=== PATIENT | female | born 1990 | race African-American/Black ===

== ENCOUNTER 2021-05-20 17:24 | Outpatient (REF) | payer MEDICARE, MEDICAID, SELFPAY ==
[2021-05-20 21:07] LABS: FREE T4 0.89 ng/dL (0.76-1.46); TSH 2.62 uIU/mL (0.36-3.74)
[2021-05-21 22:14] LABS: T3, Total 263 ng/dL (97-169)
== END 2021-05-20 17:25 | disposition home or self-care (01) ==
LOC: LBN 17:24
PROVIDERS: Visit Provider Nurse Practitioner Family
DX: E03.9 Hypothyroidism, unspecified (principal)
CPT/HCPCS: 84439; 84443; 84480

== ENCOUNTER 2021-06-16 18:57 | Observation (INO) | payer MEDICARE, MEDICAID, SELFPAY ==
[2021-06-16] VITALS (40 sets, daily range): BP systolic 160–229; BP diastolic 62–166; PULSE 107–136; RESP 17–49; TEMP 36.6–37; O2SAT 88–100
--- NOTE | 2021-06-16 18:45 | RT.EKG_ITS ---
APPROVED REPORT Exam: Resting ECG Reason for Exam: tachycardia Patient Location: E HR:125 bpm ECG Measurements Heart Rate 125 AXIS MN 148 P 48 QRSd 86 QRS 38 QT 306 T 31 QTc 442 Conclusion Sinus tachycardia...rate> 99 Low voltage, precordial leads...precordial leads <1.0mV
--- NOTE | 2021-06-16 19:00 | DI.CT_ITS ---
Exam(s) CT HEAD WO EXAM: CT HEAD WO CLINICAL HISTORY: weakness, dizzy. TECHNIQUE: Imaging Protocol: Axial computed tomography images with coronal and sagittal reformatted images were created and reviewed COMPARISON: No exams were available for comparison FINDINGS: The examination is limited due to patient motion artifact. Ventricles and Extra axial spaces: Normal in size and morphology for the patient's age. Hemorrhage: None. Cerebral parenchyma: Normal. Midline shift: None. Brainstem/Cerebellum: Normal. Calvarium: Normal. Visualized Paranasal sinuses/Mastoids: Clear. Soft Tissues: There is a scar in the posterior right scalp. Non-specific mildly enlarged lymph nodes are seen in the left periauricular region. An infectious or inflammatory process cannot be excluded . Please correlate with physical exam. Note is made of bilateral proptosis. Please correlate with physical exam and clinical history. IMPRESSION: No acute intracranial process. RADIATION DOSE DELIVERED: 2,433.58mGy.cm Total DLP DATA REPOSITORY: All CT scans at this facility are submitted to the National Radiology Data Registry (NRDR) Dose Index Registry (DIR) with the [employer] ([employer]). RADIATION OPTIMIZATION: All CT scans at this facility use at least one of these dose optimization te chniques: automated exposure control; mA and/or kV adjustment per patient size (includes targeted exa ms where dose is matched to clinical indication); or iterative reconstruction.
--- NOTE | 2021-06-16 19:21 | ED.GENADUL_ITS ---
Discharge Plan Disposition Patient Disposition: [facility] INPATIENT Condition: Stable Discharge Details Clinical Impression: Altered mental status Primary Care Provider: Unknown,Unknown ED Provider: Bryon Romero Home Meds and New Rx's Prescriptions: No Action simvastatin 40 mg Tablet 40 mg PO BID RF: 0 prazosin [Minipress] 5 mg Capsule 5 mg PO DAILY RF: 0 quetiapine [Seroquel] 400 mg Tablet 400 mg PO BID RF: 0 gabapentin 600 mg Tablet Extended Release 24 Hr 600 mg PO BID RF: 0 levothyroxine 200 mcg Capsule 200 mcg PO DAILY RF: 0 Medical Decision Making 31-year-old female referred from local urgent care. She has been living in an area apartment and looking for work after moving from [place]. States she is on SSI and has received her government check. She reports feeling confused, weak today. She was cooking something on the stove and forgetful of what it was. She states this is happened in the past and stated to paramedics that she was told it was psychogenic. She states she has been taking thyroid supplements since the age of 14. Patient arrives to the ER slightly tachycardic but afebrile and interactive, with blood pressure 160/100. She is oriented and not delirious but does seem mildly sedated. Differential diagnosis is broad including drug use/misuse, mood disorder, dehydration, electrolyte abnormality, occult infection and given her history of hypothyroidism would consider thyrotoxicosis.. Patient IV established, screening laboratories obtained, given fluid bolus. Review of records shows laboratory tests from May 20 revealing elevated total T3 of 263. Today, TSH is normal at 3.27, I have asked for free T4 and T3 levels. Remainder of laboratories noted negative troponin, reassuring chemistries. CBC with white count 14, hematocrit 35, platelets 325. Urine drug screen pending. CT of the head: No acute intracranial findings. See formal report. Chest x-ray without acute disease. Patient remains somewhat somnolent, but arousable to voice. She has persistent mild tachycardia and hypertension. Case discussed with Dr. Doll. I will administer 5 mg of Lopressor and patient to be admitted. HPI General Mode of arrival: EMS . Date/Time Provider Initiated Documentation: 06/16/21 19:59 . Limitations to Documentation: no limitations . Information obtained by: patient and EMS . History of Present Illness 31 year old F presents to the emergency department with the chief complaint of Feeling confused today, described as moderate, and is localized to the head. Patient reports no radiation. Patient started experiencing this hour(s) and it has been intermittent. No relieving factors improve symptom(s), No exacerbating factors reported . Patient notes denies cough, headaches, shortness of breath, syncope and weakness. Patient did receive the following treatments prior to arrival, none Related Data Home Medications Medication Instructions Recorded Confirmed gabapentin 600 mg PO BID 06/16/21 06/16/21 levothyroxine 200 mcg PO DAILY 06/16/21 06/16/21 prazosin [Minipress] 5 mg PO DAILY 06/16/21 06/16/21 quetiapine [Seroquel] 400 mg PO BID 06/16/21 06/16/21 simvastatin 40 mg PO BID 06/16/21 06/16/21 Allergies Allergy/AdvReac Type Severity Reaction Status Date / Time No Known Allergies Allergy Unverified 06/16/21 19:09 General Stated Complaint: Dizzy/Sync ALEKSANDR: 2 Review of Systems Narrative: Denies fall or head injury. States this is happened previously and she was told it was psychogenic. She denies any illness. She has been living in her apartment. She recently moved from the [facility]. 7 systems reviewed and otherwise negative. PFSH All Active Problems (Updated 06/16/21 @ 21:51 by Michael Doll MD) Somnolence (Acute) Altered mental status (Acute) Mood disorder (Acute) Hypothyroid (Chronic) Medical History (Updated 06/16/21 @ 21:51 by Michael Doll MD) Sleep apnea Social History Smoking/Tobacco Use Status: Never Smoking risk assessment performed?: Yes Alcohol Intake: current Alcohol Intake frequency: a few times a month Drug use: Never Substance use type: does not use Do you feel safe at home: Yes Do you feel safe in your relationship?: Yes Exam Narrative Exam Narrative: GEN: awake, alert, oriented 3. Pleasant, well groomed, interactive. HEAD: Normocephalic, atraumatic ENT: Mucous membranes moist, oropharynx unremarkable, External ear exam unremarkable EYES: PERRL, EOMI, mild exophthalmos present NECK: Full ROM, no MARYAM, no menigismus CHEST/RESP: Nontender, clear to auscultation bilateral, no wheeze/rhonchi/rales CARDIOVASCULAR: RRR, no murmur, rub doug. 2+ Rad pulse bilateral ABDOMEN: Soft, nontender, no mass. +Bowel sounds EXT: Full ROM, no edema, no rash Neuro: Grossly normal neurologic exam, conversant, interactive. Psych: Speech fluent, thoughts congruent, affect normal Course Vital Signs Vital signs: Vital Signs Temperature 36.6 C 06/16/21 19:00 Pulse 125 H 06/16/21 19:00 Respiratory Rate 24 06/16/21 19:00 Blood Pressure 164/102 H 06/16/21 19:00 Pulse Oximetry 100 06/16/21 19:00 Temperature 36.6 C 06/16/21 19:00 Temperature Source Skin 06/16/21 19:00 Pulse 125 H 06/16/21 19:00 Respiratory Rate 24 06/16/21 19:00 Respiratory Effort 06/16/21 19:06 Blood Pressure 164/102 H 06/16/21 19:00 Blood Pressure Position Sitting 06/16/21 19:00 Pulse Oximetry 100 06/16/21 19:00 Oxygen Delivery Method Room Air 06/16/21 19:00 Oxygen Flow Rate 0 06/16/21 19:00 Pain Level 6 06/16/21 19:00 PAWSS Have you Been Recently Intoxicated or Drunk Within the Last 30 days?: No Have you Ever Experienced Previous Episodes of Alcohol Withdrawal?: No Have you ever Experienced Withdrawal Seizures?: No Have you ever Experienced Delirium Tremens(DT)s?: No Have you ever undergone Alcohol Rehabilitation Treatment (i.e, inpt ot outpatient treatment programs)?: No Have you ever Experienced Blackouts?: Yes Have you ever Combined Alcohol with other Downers within the last 90 days?: No Have you ever Combined Alcohol with any other Substance of Abuse during the last 90 days?: No Positive Blood Alcohol level on Presentation? [PCS.BAL]: No Evidence of Increased Autonomic Activity (i.e. HR>120, tremor, sweating, agitation, nausea)?: No Result: 1
[2021-06-16] MEDS: Normal Saline 1,000 ML 1000 ML IV (20:00)
[2021-06-16 20:08] LABS: Albumin 3.4 g/dL (3.4-5.0); Anion Gap 9.1 mmol/L (3-11); BUN 14 mg/dL (7-18); CO2 26.9 mmol/L (21.0-32.0); CREATININE 0.7 mg/dL (0.55-1.02); Calcium 9.5 mg/dL (8.5-10.1); Chloride 104 mmol/L (98-107); ETHANOL BLOOD 3.8 mg/dL (<10); Glucose 62 mg/dL (74-106); Magnesium 1.9 mg/dL (1.8-2.4); Potassium 4.2 mmol/L (3.5-5.1); Sodium 140 mmol/L (136-145)
[2021-06-16 20:24] LABS: Abs Immature Grans 0.11 10^3/uL (0.0-0.06); Absolute Basophil Count 0.04 10^3/uL (0.0-0.2); Absolute Eosinophil Count 0.03 10^3/uL (0.0-0.7); Absolute Lymphocyte Count 2.26 10^3/uL (1.2-3.4); Absolute Monocyte Count 1.16 10^3/uL (0.1-0.8); Absolute Neutrophil Count 10.42 10^3/uL (1.2-6.7); Basophils % 0.3; Eosinophils % 0.2; HCT 35.2 % (36.0-46.0); HGB 10.2 g/dL (11.2-15.7); Immature Grans % 0.8; Lymphocytes % 16.1; MCH 21.6 pg (27.0-33.0); MCV 74.4 fL (80-95); MPV 11.9 fL (8.0-11.0); Monocytes % 8.3; Neutrophils % 74.3; Nucleated RBC 0 %; Platelet Count 325 10^3/uL (130-400); RBC 4.73 10^6/uL (3.93-5.22); RDW 16.3 % (11.7-14.6); RDW-SD 43.1 fL; WBC 14.02 10^3/uL (4.4-10.8)
[2021-06-16 20:28] LABS: ALT 39 U/L (14-59); AST 32 U/L (15-37); Alkaline Phosphatase 96 U/L (46-116); Bilirubin, Total 0.1 mg/dL (0.2-1.0); TSH 3.27 uIU/mL (0.36-3.74); Total Protein 8.7 g/dL (6.4-8.2); Troponin I < 50 ng/L (<or=60)
--- NOTE | 2021-06-16 20:30 | DI.RAD_ITS ---
Exam(s) XR CHEST 2V PA LATERAL EXAM: XR CHEST 2V PA LATERAL CLINICAL HISTORY: weakness, MS change TECHNIQUE: 2D digital imaging was performed of the chest. Five images were obtained. AP and latera l views were obtained. COMPARISON: No exams were available for comparison FINDINGS: The examination is limited due to patient motion artifact. Exam is also limited by patient body habi tus. MEDIASTINUM: Normal. HEART: The heart appears enlarged. This may be due to portable technique and low lung volumes. Card iomegaly cannot be excluded. PULMONARY VASCULATURE: Normal. LUNGS: There are low lung volumes secondary to poor inspiration. No focal consolidation is seen. PLEURAL SPACE: No pleural effusion or pneumothorax. BONE:Within normal limits for the patient's age. OTHER FINDINGS:Normal. IMPRESSION: 1. Suboptimal examination due to patient body habitus, patient motion and poor inspiration. 2. Cardiomegaly versus artifact secondary to technique. DATA REPOSITORY: RADIATION DOSE DELIVERED:
[2021-06-16 20:44] LABS: Diff Comment PLT Morph Reviewed; Microcytosis 1+
--- NOTE | 2021-06-16 21:15 | DI.VRAD_ITS ---
PROCEDURE INFORMATION: Exam: CT Head Without Contrast Exam date and time: 06/16/2021 7:10 PM Age: 31 years old Clinical indication: Dizziness and other: Weakness; Patient HX: Weakness, dizzy TECHNIQUE: Imaging protocol: Computed tomography of the head without contrast. Radiation optimization: All CT scans at this facility use at least one of these dose optimization techniques: automated exposure control; mA and/or kV adjustment per patient size (includes targeted exams where dose is matched to clinical indication); or iterative reconstruction. COMPARISON: No relevant prior studies available. FINDINGS: Brain: Normal. No hemorrhage. Unremarkable white matter. No mass effect. Cerebral ventricles: No ventriculomegaly. Paranasal sinuses: Visualized sinuses are unremarkable. No fluid levels. Mastoid air cells: Visualized mastoid air cells are well aerated. Orbital cavity: Bilateral proptosis. No orbital mass is identified. The extraocular muscles appear appropriate in size and configuration. Bones/joints: Unremarkable. No acute fracture. Soft tissues: Skin thickening and subcutaneous fatty reticulation of the posterior right parietal scalp. Lymph nodes: Left retroauricular fatty reticulation and lymph node prominence measuring up to 1.1 cm. IMPRESSION: 1. No acute intracranial abnormality is appreciated. 2. Mild fatty reticulation and lymphadenopathy of the left retroauricular soft tissues, a nonspecific finding that may be related to infectious or inflammatory changes. Correlate with physical examination. 3. Mild skin thickening and subcutaneous fatty reticulation of the posterior right parietal scalp. This appears to represent a chronic scar. 4. Bilateral proptosis. The etiology is not clear from the current examination. Dictated and Authenticated by: Cristofer Puga MD. Ordering:RYAN Slater MD
--- NOTE | 2021-06-16 21:16 | DI.VRAD_ITS ---
PROCEDURE INFORMATION: Exam: XR Chest Exam date and time: 06/16/2021 8:41 PM Age: 31 years old Clinical indication: Other: AMS TECHNIQUE: Imaging protocol: XR of the chest. Views: 2 views. COMPARISON: No relevant prior studies available. FINDINGS: Limitations: The examination is limited secondary to patient motion, body habitus, and incomplete inspiratory excursion. Lungs: No gross airspace consolidation is appreciated. Pleural spaces: Unremarkable. No pleural effusion. No pneumothorax. Heart/Mediastinum: The central silhouette appears prominent, however this is likely artifactual secondary to low lung volumes and portable technique. An element of cardiomegaly is not excluded. Bones/joints: Unremarkable. IMPRESSION: Limited evaluation. There may be an element of cardiomegaly, versus artifact secondary to technique. Dictated and Authenticated by: Cristofer Puga MD. Ordering:RYAN Slater MD
[2021-06-16 21:20] LABS: BE 2 mmol/L (-2-3); HCO3 27 mmol/L (22-26); pCO2 43 mmHg (35-45); pO2 67 mmHg (80-105); sO2 93 % (95-98); tCO2 25 mmol/L (23-27)
[2021-06-16 21:24] LABS: Site Right Radial
[2021-06-16 21:36] LABS: *AMPHETAMINES SCREEN URINE Negative (Negative); *BARBITURATES SCREEN URINE Negative (Negative); *BENZODIAZEPINES SCREEN URINE Negative (Negative); Cannabinoids THC Negative (Negative); Cocaine Screen,Urine Negative (Negative); METHADONE URINE SCREEN Negative (Negative); OPIATES URINE SCREEN Negative (Negative)
[2021-06-16 21:37] LABS: Tricyclic Antidepressants Negative (Negative)
--- NOTE | 2021-06-16 21:39 | W.PM.HP.N ---
Date of service: 06/16/21 Time of Service: 21:39 Assessment and Plan Assessment and plan (1) Somnolence: Status: Acute Assessment and plan: No specific etiology apparent at this time, but overall tenor of case seems to suggest toxic/metabolic issue. I wonder about exogenous ingestion or perhaps toxic effect of her prescribed meds. The hyperdynamic state is noted. I cannot specifically ascribe this to any of her known meds, and with a normal TSH I cannot point to the Synthroid, unless by chance there were an acute overdose. Overall I would advise hold all meds, control BP with beta nandini and hold for observation. History of Present Illness History of Present Illness Chief Complaint: confusion Narrative: 31 female with unspecified psychiatric disorder, on Seroquel, Gabapentin and Prazosin, recently moved from [place], on SSI reportedly -- seen at Urgent Care today for confusion (it is reported that she has had this before, and been told it was psychogenic), noted to be tachycardic and somnolent and sent to ER. In ER findings of note for absence of fever, hypertension, tachycardia and patient being generally somnolent, but variably. Labs of note for white count 14, Hct 35 with microcytosis, normal electrolytes and renal function; TSH 3.2; negative head CT and CXR; EKG sinus tachycardia; negative UDS, ABG 7.43/40/67 (sat 97%). EtOH 3.8. I was asked to evaluate for admission. Patient gives limited history, but states she takes her meds properly and has not ingested any illicit substances. Review of Systems All systems reviewed & are unremarkable except as noted in HPI and below PFSH All Active Problems (Updated 06/16/21 @ 21:51 by Michael Doll MD) Somnolence (Acute) Altered mental status (Acute) Mood disorder (Acute) Hypothyroid (Chronic) Medical History Sleep apnea Social History Smoking/Tobacco Use Status: Never Smoking risk assessment performed?: Yes Alcohol Intake: current Alcohol Intake frequency: a few times a month Drug use: Never Substance use type: does not use Do you feel safe at home: Yes Do you feel safe in your relationship?: Yes Meds Allergies and Home Medications Allergies Allergy/AdvReac Type Severity Reaction Status Date / Time No Known Allergies Allergy Unverified 06/16/21 19:09 Home Medications Medication Instructions Recorded Confirmed Type gabapentin 600 mg PO BID 06/16/21 06/16/21 History levothyroxine 200 mcg PO DAILY 06/16/21 06/16/21 History prazosin [Minipress] 5 mg PO DAILY 06/16/21 06/16/21 History quetiapine [Seroquel] 400 mg PO BID 06/16/21 06/16/21 History simvastatin 40 mg PO BID 06/16/21 06/16/21 History Exam Narrative Exam Narrative: 218/85, 133,36.8, RR 20s-30s; 97% RA. HEENT atraumatic, globes appear prominent but no thyroid stare; neck supple, unable to palpate thyroiod; lungs clear; heart tachy/regular; abdomen obese, soft and NT; extremities w/o edema; neuro rather somnolent, unable to fully assess orientation, but intermittently answers questions appropriately; moves all 4s Results Labs Result diagrams: 06/16/21 19:50 06/16/21 19:50 Labs: Laboratory Results - last 24 hr 06/16/21 06/16/21 06/16/21 19:50 19:50 21:02 WBC 14.02 H RBC 4.73 Hgb 10.2 L Hct 35.2 L MCV 74.4 L MCH 21.6 L MCHC 29.0 L RDW 16.3 H Plt Count 325 MPV 11.9 H Immature Gran % 0.8 Neutrophils % 74.3 Lymphocytes % 16.1 Monocytes % 8.3 Eosinophils % 0.2 Basophils % 0.3 Nucleated RBC % 0 Absolute Neutrophils 10.42 H Absolute Lymphocytes 2.26 Absolute Monocytes 1.16 H Absolute Eosinophils 0.03 Absolute Basophils 0.04 RBC Morphology See Below Microcytosis 1+ ABG Sample Site Right Radial ABG pH 7.40 ABG pCO2 43 ABG pO2 67 L ABG HCO3 27 H ABG Total CO2 25 ABG O2 Saturation 93 L ABG Base Excess 2 Sodium 140 Potassium 4.2 Chloride 104 Carbon Dioxide 26.9 Anion Gap 9.1 BUN 14 Creatinine 0.7 Estimated GFR/1.73 m2 >= 60.00 Glucose 62 L Calcium 9.5 Magnesium 1.9 Total Bilirubin 0.1 L AST 32 ALT 39 Alkaline Phosphatase 96 Troponin I < 50 Total Protein 8.7 H Albumin 3.4 TSH 3.27 Urine Opiates Screen Urine Methadone Screen Ur Barbiturates Screen Ur Tricyclics Screen Ur Amphetamines Screen U Benzodiazepines Scrn Urine Cocaine Screen Ur THC Screen Ethyl Alcohol 3.8 06/16/21 21:10 WBC RBC Hgb Hct MCV MCH MCHC RDW Plt Count MPV Immature Gran % Neutrophils % Lymphocytes % Monocytes % Eosinophils % Basophils % Nucleated RBC % Absolute Neutrophils Absolute Lymphocytes Absolute Monocytes Absolute Eosinophils Absolute Basophils RBC Morphology Microcytosis ABG Sample Site ABG pH ABG pCO2 ABG pO2 ABG HCO3 ABG Total CO2 ABG O2 Saturation ABG Base Excess Sodium Potassium Chloride Carbon Dioxide Anion Gap BUN Creatinine Estimated GFR/1.73 m2 Glucose Calcium Magnesium Total Bilirubin AST ALT Alkaline Phosphatase Troponin I Total Protein Albumin TSH Urine Opiates Screen Negative Urine Methadone Screen Negative Ur Barbiturates Screen Negative Ur Tricyclics Screen Negative Ur Amphetamines Screen Negative U Benzodiazepines Scrn Negative Urine Cocaine Screen Negative Ur THC Screen Negative Ethyl Alcohol Last Vital Signs Temp 36.6 C 06/16/21 19:00 Pulse 133 H 06/16/21 21:17 Resp 39 H 06/16/21 21:17 BP 218/85 H 06/16/21 21:17 Pulse Ox 97 06/16/21 21:17 PAWSS Have you Been Recently Intoxicated or Drunk Within the Last 30 days?: No Have you Ever Experienced Previous Episodes of Alcohol Withdrawal?: No Have you ever Experienced Withdrawal Seizures?: No Have you ever Experienced Delirium Tremens(DT)s?: No Have you ever undergone Alcohol Rehabilitation Treatment (i.e, inpt ot outpatient treatment programs)?: No Have you ever Experienced Blackouts?: Yes Have you ever Combined Alcohol with other Downers within the last 90 days?: No Have you ever Combined Alcohol with any other Substance of Abuse during the last 90 days?: No Positive Blood Alcohol level on Presentation? [PCS.BAL]: No Evidence of Increased Autonomic Activity (i.e. HR>120, tremor, sweating, agitation, nausea)?: No Result: 1
[2021-06-16] MEDS: Normal Saline Flush 10 ML SYR IVP ×3 (21:41→23:33)
[2021-06-16] MEDS: Metoprolol 5 MG/5 ML VIAL IVP ×2 (21:41→22:10)
[2021-06-16 21:46] LABS: Bilirubin Negative (Negative); Blood Trace-intact (Negative); Clarity Clear (Clear); Glucose 250 mg/dL (Negative); Ketones Trace mg/dL (Negative); Leukocyte Esterase Negative (Negative); Nitrite Negative (Negative); Specific Gravity >= 1.030 (1.005-1.025); Urobilinogen 0.2 EU/dL (Up TO 0.2); pH 5.5 (5-8)
[2021-06-16 21:48] LABS: FREE T4 0.83 ng/dL (0.76-1.46)
[2021-06-16 22:00] LABS: T4 5.7 ug/mL (4.7-13.3)
[2021-06-16 22:08] LABS: Bacteria Negative HPF (Negative); Crystals Negative HPF (Negative); Epithelial Cells Few HPF (Negative); Mucus Moderate (Negative); RBC Negative HPF (0-2)
[2021-06-16 22:09] LABS: C & S Indicated? Yes
[2021-06-16 22:31] LABS: Source Nasopharynx
[2021-06-16 23:05] LABS: COVID-19 PCR Negative (Negative); Influenza A PCR Negative (Negative); Influenza B PCR Negative (Negative); RSV PCR Negative (Negative)
[2021-06-16] MEDS: Lactated Ringers 1,000 ML 150 ML IV (23:33)
[2021-06-17 02:13] VITALS: BP 171/101; PULSE 113; RESP 20; TEMP 36.6; O2SAT 95
[2021-06-17] MEDS: Metoprolol 25 MG TAB PO (02:21)
[2021-06-17 06:03] VITALS: BP 192/104; PULSE 107; RESP 25; TEMP 36.4; O2SAT 96
[2021-06-17 07:08] VITALS: BP 155/89; PULSE 106; RESP 22; TEMP 36.4; O2SAT 99
[2021-06-17 07:29] VITALS: PULSE 114
--- NOTE | 2021-06-17 09:05 | PDOC.CMIN ---
- If Service Date Differs Date of service: 06/17/21 Time of Service: 09:05 Care Management Initial Assess REASON FOR HOSPITALIZATION:: Somnolence PAST MEDICAL HISTORY/PAST SURGICAL HISTORY:: All Active Problems (Updated 06/16/21 @ 21:51 by Michael Doll MD). Somnolence (Acute). Altered mental status (Acute). Mood disorder (Acute). Hypothyroid (Chronic). Medical History . Sleep apnea PREVIOUS FUNCTIONAL STATUS/SOCIAL/FAMILY SUPPORTS:: Zenia lives in [facility]. ADVANCE DIRECTIVES:: None on file Has patient been provided with info about the portal/API?: Yes Did the patient sign up for the portal?: No CODE STATUS:: Full Code INSURANCE COVERAGE / FINANCIAL ISSUES:: Medicaid. Medicare CURRENT HOME/COMMUNITY SERVICES/EQUIPMENT:: . PRIMARY CARE PHYSICIAN:: . PATIENT/FAMILY EDUCATION NEEDS:: Review discharge instructions, limitations, medications and plan to follow up with community providers. ask me three. TRANSPORTATION:: via private vehicle with family
[2021-06-17] MEDS: Nystatin POWDER 15 GM JAR TP (09:09)
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
--- NOTE | 2021-06-17 11:56 | DSE_ITS ---
Date of service: 06/17/21 Time of Service: 11:56 DS: Diagnosis Discharge Diagnosis (1) Somnolence: Start date: 06/17/21 Start time: 11:56 Status: Resolved Asessment and Plan: Patient was somnolent. Takes prazosin, ambien and seroquel at night for bedtime. We talked about the effects of taking all these medications at once. She is agreeable to stop taking ambien at night as the seroquel and prazosin should be adequate enough to help her sleep. She is now awake and at baseline. She would like to go back to the hotel. She is being discharged. She denies any CP, SOA, or other complaints. Discussed with Dr. Nj Discharge Plan Disposition Patient Disposition: HOME Condition: Stable Discharge Details Reason For Visit: Somnolence Admit Date/Time: 06/16/21 21:56 Admit Provider: Michael Doll Attending Provider: Michael Doll Primary Care Provider: Unknown,Unknown Hospital Course Hospital Course: 31 y.o female with PMH of nightmares, DM, Hypothyroid, HLD, admitted to /S for weakness and confusion. She was somnolent on admission. She is on seroquel, gabapentin, and prazosin for unknown psychiatric disorder. Recently moved here from [place]. Today she is at her baseline. She admits that she takes seroquel, prazosin and Ambien to help her sleep. Which will cause somnolence. We discussed that these medication combinations are not safe and that prazosin and seroquel alone are sedating enough for sleep. She agreed to stop taking Ambien. She states she takes the prazosin for nightmares. She is back to baseline and would like to be discharged. She is also a diabetic that had a bs of 69 this am. She is now 110. She feels well. No complaints therefore she is being discharged back. She would benefit from [facility] service connections to manage her medications. Home Meds and New Rx's Prescriptions: Continued simvastatin 40 mg Tablet 40 mg PO BID RF: 0 prazosin [Minipress] 5 mg Capsule 5 mg PO DAILY RF: 0 quetiapine [Seroquel] 400 mg Tablet 400 mg PO BID RF: 0 gabapentin 600 mg Tablet Extended Release 24 Hr 600 mg PO BID RF: 0 levothyroxine 200 mcg Capsule 200 mcg PO DAILY RF: 0 Discharge Instructions Instructions: Hypoglycemia in a Person with Diabetes (DC) Additional Instructions: STOP TAKING AMBIEN AT NIGHT you should follow up with [facility] for community connections to help you with services and medications if you are not already connected. Activity:: Activity as Tolerated Equipment/Supplies:: No Equipment Needed Diet:: Carb Counting Discharge Orders Discharge Orders: Discharge Order (Routine); Ordered 06/17/21 Ordered By: Lia Saleh DS: Summary Time Spent with Patient providing and/or coordinating discharge services: Less than 30 minutes Status at Discharge Functional status at discharge: independent ambulation Overall status at discharge: patient is back to baseline Mental Status: mental status grossly normal Speech and Movement: speech and movement normal Mood: congruent mood Affect: normal affect Exam Const General: cooperative, comfortable and no acute distress Nutritional Appearance: obese Orientation: alert, awake and oriented x3 Eyes Eyelids: eyelids normal Pupils: PERRL EOM: EOM intact bilaterally Neck Neck: normal visual inspection and no JVD Lymphatic: no lymphadenopathy noted Resp Effort & Inspection: normal respiratory effort Auscultation: clear to auscultation bilaterally Cardio Jugular venous pressure: no JVD Rhythm: regular rhythm Heart Sounds: S1 normal GI Auscultation: normal bowel sounds Skin General skin exam: no rashes or lesions noted Neuro General: patient alert, patient awake and patient oriented x3 Cognition: normal cognition Speech: speech normal Gait: normal gait Extrem General: normal to inspection, full ROM and no clubbing, cyanosis or edema Psych Mental Status: mental status grossly normal Speech and Movement: speech and movement normal Mood: congruent mood Affect: normal affect DS: Data Vitals/I&O Vitals and I&O: Vital Signs Temperature 36.4 C L 06/17/21 07:08 Temperature Source Tympanic 06/17/21 07:08 Pulse 114 H 06/17/21 07:29 Pulse Rhythm Regular 06/17/21 08:20 Pulse 116 H 06/16/21 22:40 Respiratory Rate 22 06/17/21 07:08 Respiratory Effort Non-Labored 06/17/21 08:20 Respiratory Depth Normal 06/17/21 08:20 Respiratory Pattern Normal 06/17/21 08:20 Blood Pressure 155/89 H 06/17/21 07:08 Blood Pressure Mean 124 06/16/21 23:01 Blood Pressure Position Sitting 06/16/21 19:00 Pulse Oximetry 99 06/17/21 07:08 Oxygen Delivery Method Room Air 06/17/21 07:08 Oxygen Flow Rate 0 06/17/21 07:08 Pain Level 0 06/17/21 07:08 Intake & Output 06/16/21 06/16/21 06/17/21 11:59 23:59 11:59 Intake Total 1310 / 1310 2247.5 / 2247.5 Output Total 100 / 100 600 / 600 Balance 1210 / 1210 1647.5 / 1647.5 Weight 179.169 kg Intake: IV 810 / 810 127.5 / 127.5 Oral 500 / 500 2120 / 2120 Output: Urine 100 / 100 600 / 600 Other: Urine Color Straw Yellow Urine Appearance Clear Cloudy Urine Odor Normal Voiding Methods Toilet Data Completed and Pending Completed studies during hospitalization [Text1]: EXAM: CT HEAD WO CLINICAL HISTORY: weakness, dizzy. TECHNIQUE: Imaging Protocol: Axial computed tomography images with coronal and sagittal reformatted images were created and reviewed COMPARISON: No exams were available for comparison FINDINGS: The examination is limited due to patient motion artifact. Ventricles and Extra axial spaces: Normal in size and morphology for the patient's age. Hemorrhage: None. Cerebral parenchyma: Normal. Midline shift: None. Brainstem/Cerebellum: Normal. Calvarium: Normal. Visualized Paranasal sinuses/Mastoids: Clear. Soft Tissues: There is a scar in the posterior right scalp. Non-specific mildly enlarged lymph nodes are seen in the left periauricular region. An infectious or inflammatory process cannot be excluded. Please correlate with physical exam. Note is made of bilateral proptosis. Please correlate with physical exam and clinical history. IMPRESSION: No acute intracranial process. Exam(s) XR CHEST 2V PA LATERAL EXAM: XR CHEST 2V PA LATERAL CLINICAL HISTORY: weakness, MS change TECHNIQUE: 2D digital imaging was performed of the chest. Five images were obtained. AP and lateral views were obtained. COMPARISON: No exams were available for comparison FINDINGS: The examination is limited due to patient motion artifact. Exam is also limited by patient body habitus. MEDIASTINUM: Normal. HEART: The heart appears enlarged. This may be due to portable technique and low lung volumes. Cardiomegaly cannot be excluded. PULMONARY VASCULATURE: Normal. LUNGS: There are low lung volumes secondary to poor inspiration. No focal consolidation is seen. PLEURAL SPACE: No pleural effusion or pneumothorax. BONE:Within normal limits for the patient's age. OTHER FINDINGS:Normal. IMPRESSION: 1. Suboptimal examination due to patient body habitus, patient motion and poor inspiration. 2. Cardiomegaly versus artifact secondary to technique. : 1990Age: 31 Exam(s) PROCEDURE INFORMATION: Exam: CT Head Without Contrast Exam date and time: 06/16/2021 7:10 PM Age: 31 years old Clinical indication: Dizziness and other: Weakness; Patient HX: Weakness, dizzy TECHNIQUE: Imaging protocol: Computed tomography of the head without contrast. Radiation optimization: All CT scans at this facility use at least one of these dose optimization techniques: automated exposure control; mA and/or kV adjustment per patient size (includes targeted exams where dose is matched to clinical indication); or iterative reconstruction. COMPARISON: No relevant prior studies available. FINDINGS: Brain: Normal. No hemorrhage. Unremarkable white matter. No mass effect. Cerebral ventricles: No ventriculomegaly. Paranasal sinuses: Visualized sinuses are unremarkable. No fluid levels. Mastoid air cells: Visualized mastoid air cells are well aerated. Orbital cavity: Bilateral proptosis. No orbital mass is identified. The extraocular muscles appear appropriate in size and configuration. Bones/joints: Unremarkable. No acute fracture. Soft tissues: Skin thickening and subcutaneous fatty reticulation of the posterior right parietal scalp. Lymph nodes: Left retroauricular fatty reticulation and lymph node prominence measuring up to 1.1 cm. IMPRESSION: 1. No acute intracranial abnormality is appreciated. 2. Mild fatty reticulation and lymphadenopathy of the left retroauricular soft tissues, a nonspecific finding that may be related to infectious or inflammatory changes. Correlate with physical examination. 3. Mild skin thickening and subcutaneous fatty reticulation of the posterior right parietal scalp. This appears to represent a chronic scar. 4. Bilateral proptosis. The etiology is not clear from the current examination. : 1990Age: 31 Exam(s) PROCEDURE INFORMATION: Exam: XR Chest Exam date and time: 06/16/2021 8:41 PM Age: 31 years old Clinical indication: Other: AMS TECHNIQUE: Imaging protocol: XR of the chest. Views: 2 views. COMPARISON: No relevant prior studies available. FINDINGS: Limitations: The examination is limited secondary to patient motion, body habitus, and incomplete inspiratory excursion. Lungs: No gross airspace consolidation is appreciated. Pleural spaces: Unremarkable. No pleural effusion. No pneumothorax. Heart/Mediastinum: The central silhouette appears prominent, however this is likely artifactual secondary to low lung volumes and portable technique. An element of cardiomegaly is not excluded. Bones/joints: Unremarkable. IMPRESSION: Limited evaluation. There may be an element of cardiomegaly, versus artifact secondary to technique. Labs on day of discharge: Labs from last 24 hours 06/16/21 06/16/21 06/16/21 22:15 22:08 21:10 WBC RBC Hgb Hct MCV MCH MCHC RDW Plt Count MPV Immature Gran % Neutrophils % Lymphocytes % Monocytes % Eosinophils % Basophils % Nucleated RBC % Absolute Neutrophils Absolute Lymphocytes Absolute Monocytes Absolute Eosinophils Absolute Basophils RBC Morphology Microcytosis ABG Sample Site ABG pH ABG pCO2 ABG pO2 ABG HCO3 ABG Total CO2 ABG O2 Saturation ABG Base Excess Sodium Potassium Chloride Carbon Dioxide Anion Gap BUN Creatinine Estimated GFR/1.73 m2 Glucose Calcium Magnesium Total Bilirubin AST ALT Alkaline Phosphatase Troponin I Cancelled Total Protein Albumin TSH Free T4 Free T3 pg/mL Thyroxine (T4) Total T3 Urine Color Yellow Urine Clarity Clear Urine pH 5.5 Ur Specific [place] >= 1.030 H Urine Protein >=300 H Urine Ketones Trace H Urine Blood Trace-intact H Urine Nitrite Negative Urine Bilirubin Negative Urine Urobilinogen 0.2 Ur Leukocyte Esterase Negative Urine RBC Negative Urine WBC 10-20 H Ur Epithelial Cells Few Urine Crystals Negative Urine Bacteria Negative Urine Casts 10-20 Fine Granular Urine Mucus Moderate Ur Culture Indicated? Yes Urine Glucose 250 H Urine Opiates Screen Urine Methadone Screen Ur Barbiturates Screen Ur Tricyclics Screen Ur Amphetamines Screen U Benzodiazepines Scrn Urine Cocaine Screen Ur THC Screen Ethyl Alcohol COVID-19 Source Nasopharynx SARS-CoV-2 (PCR) Negative Influenza Type A (PCR) Negative Influenza Type B (PCR) Negative RSV (PCR) Negative Path Cons Comment 06/16/21 06/16/21 06/16/21 21:10 21:02 19:50 WBC RBC Hgb Hct MCV MCH MCHC RDW Plt Count MPV Immature Gran % Neutrophils % Lymphocytes % Monocytes % Eosinophils % Basophils % Nucleated RBC % Absolute Neutrophils Absolute Lymphocytes Absolute Monocytes Absolute Eosinophils Absolute Basophils RBC Morphology Microcytosis ABG Sample Site Right Radial ABG pH 7.40 ABG pCO2 43 ABG pO2 67 L ABG HCO3 27 H ABG Total CO2 25 ABG O2 Saturation 93 L ABG Base Excess 2 Sodium Potassium Chloride Carbon Dioxide Anion Gap BUN Creatinine Estimated GFR/1.73 m2 Glucose Calcium Magnesium Total Bilirubin AST ALT Alkaline Phosphatase Troponin I Total Protein Albumin TSH Free T4 0.83 Free T3 pg/mL Thyroxine (T4) 5.7 Total T3 Urine Color Urine Clarity Urine pH Ur Specific [place] Urine Protein Urine Ketones Urine Blood Urine Nitrite Urine Bilirubin Urine Urobilinogen Ur Leukocyte Esterase Urine RBC Urine WBC Ur Epithelial Cells Urine Crystals Urine Bacteria Urine Casts Urine Mucus Ur Culture Indicated? Urine Glucose Urine Opiates Screen Negative Urine Methadone Screen Negative Ur Barbiturates Screen Negative Ur Tricyclics Screen Negative Ur Amphetamines Screen Negative U Benzodiazepines Scrn Negative Urine Cocaine Screen Negative Ur THC Screen Negative Ethyl Alcohol COVID-19 Source SARS-CoV-2 (PCR) Influenza Type A (PCR) Influenza Type B (PCR) RSV (PCR) Path Cons Comment 06/16/21 06/16/21 06/16/21 19:50 19:50 19:50 WBC 14.02 H RBC 4.73 Hgb 10.2 L Hct 35.2 L MCV 74.4 L MCH 21.6 L MCHC 29.0 L RDW 16.3 H Plt Count 325 MPV 11.9 H Immature Gran % 0.8 Neutrophils % 74.3 Lymphocytes % 16.1 Monocytes % 8.3 Eosinophils % 0.2 Basophils % 0.3 Nucleated RBC % 0 Absolute Neutrophils 10.42 H Absolute Lymphocytes 2.26 Absolute Monocytes 1.16 H Absolute Eosinophils 0.03 Absolute Basophils 0.04 RBC Morphology See Below Microcytosis 1+ ABG Sample Site ABG pH ABG pCO2 ABG pO2 ABG HCO3 ABG Total CO2 ABG O2 Saturation ABG Base Excess Sodium 140 Potassium 4.2 Chloride 104 Carbon Dioxide 26.9 Anion Gap 9.1 BUN 14 Creatinine 0.7 Estimated GFR/1.73 m2 >= 60.00 Glucose 62 L Calcium 9.5 Magnesium 1.9 Total Bilirubin 0.1 L AST 32 ALT 39 Alkaline Phosphatase 96 Troponin I < 50 Total Protein 8.7 H Albumin 3.4 TSH 3.27 Free T4 Free T3 pg/mL Pending Thyroxine (T4) Total T3 Pending Urine Color Urine Clarity Urine pH Ur Specific [place] Urine Protein Urine Ketones Urine Blood Urine Nitrite Urine Bilirubin Urine Urobilinogen Ur Leukocyte Esterase Urine RBC Urine WBC Ur Epithelial Cells Urine Crystals Urine Bacteria Urine Casts Urine Mucus Ur Culture Indicated? Urine Glucose Urine Opiates Screen Urine Methadone Screen Ur Barbiturates Screen Ur Tricyclics Screen Ur Amphetamines Screen U Benzodiazepines Scrn Urine Cocaine Screen Ur THC Screen Ethyl Alcohol 3.8 COVID-19 Source SARS-CoV-2 (PCR) Influenza Type A (PCR) Influenza Type B (PCR) RSV (PCR) Path Cons Comment Pending 06/16/21 21:10 Urine - Reflex from [facility] Urine Culture - Pending Preliminary micro results at discharge 06/16/21 21:10 Urine Culture - Pending Urine - Reflex from [facility] All Active Problems Altered mental status (Acute) Mood disorder (Acute) Hypothyroid (Chronic) Medical History Sleep apnea Social History Smoking/Tobacco Use Status: Never Smoking risk assessment performed?: Yes Alcohol Intake: current Alcohol Intake frequency: a few times a month Drug use: Never Substance use type: does not use Do you feel safe at home: Yes Do you feel safe in your relationship?: Yes
[2021-06-17 16:30] LABS: T3,Free 3.2 pg/mL (2.8-5.3)
[2021-06-17 16:46] LABS: T3, Total 255 ng/dL (97-169)
== END 2021-06-17 13:04 | disposition home or self-care (01) ==
LOC: ER 21:55 → MS 22:48
PROVIDERS: Admitting Provider General Practice; Emergency Provider Emergency Medicine; Visit Provider General Practice
DX: R40.0 Somnolence (principal); E03.9 Hypothyroidism, unspecified; F39 Unspecified mood [affective] disorder; Z79.899 Other long term (current) drug therapy; E11.9 Type 2 diabetes mellitus without complications; E78.5 Hyperlipidemia, unspecified; R53.1 Weakness; F51.5 Nightmare disorder; E66.9 Obesity, unspecified; Z68.44 Body mass index [BMI] 60.0-69.9, adult
CPT/HCPCS: 36415; 51701; 80053; 80307; 81025; 82805; 87637; 93005; 96361; 96374; 99284; 99285; 70450; 71046; 80320; 81003; 81015; 83735; 84436; 84439; 84443; 84480; 84481; 84484; 85025; 87086; 93010; 99217; 99219; G0378

== ENCOUNTER 2021-08-15 02:31 | Outpatient (CLI) | payer MEDICARE, MEDICAID, SELFPAY ==
[2021-08-15 13:31] LABS: COMMENT (LAB VIEW ONLY) 148.78 mg/dL
[2021-08-15 14:12] LABS: Microalb ug/mg Crea 605.3 ug/mg Cr
[2021-08-15 14:20] LABS: ALT 25 U/L (14-59); AST 16 U/L (15-37); Albumin 3.1 g/dL (3.4-5.0); Alkaline Phosphatase 97 U/L (46-116); Anion Gap 11.8 mmol/L (3-11); BUN 9 mg/dL (7-18); Bilirubin, Total 0.2 mg/dL (0.2-1.0); CO2 26.2 mmol/L (21.0-32.0); CREATININE 0.7 mg/dL (0.55-1.02); Calcium 8.6 mg/dL (8.5-10.1); Calculated LDL 135 mg/dL (<100); Chloride 104 mmol/L (98-107); Cholesterol 199 mg/dL (<200); Glucose 58 mg/dL (74-106); HDL Cholesterol 55 mg/dL (40-60); Magnesium 1.8 mg/dL (1.8-2.4); Potassium 4.2 mmol/L (3.5-5.1); Sodium 142 mmol/L (136-145); TSH (W/Ref FT4) 2.98 uIU/mL (0.36-3.74); Total Protein 7.5 g/dL (6.4-8.2); Triglyceride 46 mg/dL (<150); Vitamin B12 922 pg/mL (193-986)
== END 2021-08-15 02:32 | disposition home or self-care (01) ==
LOC: LBO 02:31
PROVIDERS: PCP Nurse Practitioner Adult Health; Visit Provider Nurse Practitioner Adult Health
DX: E03.9 Hypothyroidism, unspecified (principal); E11.65 Type 2 diabetes mellitus with hyperglycemia; E66.01 Morbid (severe) obesity due to excess calories; E78.2 Mixed hyperlipidemia
CPT/HCPCS: 36415; 80053; 80061; 82043; 82570; 82607; 83735; 84443

== ENCOUNTER 2021-08-16 15:37 | Emergency (ER) | payer MEDICARE, MEDICAID, SELFPAY ==
[2021-08-16] VITALS (18 sets, daily range): BP systolic 140–159; BP diastolic 66–95; PULSE 97–120; RESP 16–40; TEMP 36.3; O2SAT 88–98
--- NOTE | 2021-08-16 15:41 | ED.GENADUL_ITS ---
Discharge Plan Disposition Patient Disposition: HOME Condition: Stable Discharge Details Clinical Impression: Pleural effusion, Anemia Primary Care Provider: Lia Pearson ED Provider: Talon Mattson Home Meds and New Rx's Prescriptions: New furosemide [Lasix] 40 mg tablet 40 mg PO DAILY Qty: 3 0RF Continued insulin aspart U-100 [Novolog Flexpen U-100 Insulin] 100 unit/mL (3 mL) i nsulin pen See Rx Instructions subcut TID 0RF Rx Instructions: 5 units tid and sliding scale subcut three times a day; metformin 500 mg tablet 500 mg PO DAILY 0RF Rx Instructions: [facility] Endo (DME) pen needle, diabetic [Pen Needle] 32 gauge x 5/32 needle See Rx Instructions .ROUTE .MEDSUPPLY Qty: 50 0RF Rx Instructions: bid to administer insulin bid E11.9 levothyroxine 200 mcg tablet 200 mcg PO DAILY 0RF (DME) lancets [OneTouch UltraSoft Lancets] Misc See Rx Instructions .ROUTE .MEDSUPPLY Qty: 100 0RF Rx Instructions: test ac and hs prn E11.9 to maintain AIC <7 (DME) OneTouch Verio test strips Strip See Rx Instructions .ROUTE .MEDSUPPLY Qty: 10 0RF Rx Instructions: to test blood sugars ac and hs to maintain AIC <7, E11.9 polyethylene glycol 3350 [Miralax] 17 gram/dose powder 17 g PO DAILY 0RF insulin lispro [Humalog KwikPen Insulin] 100 unit/mL insulin pen 5 unit subcut TID 0RF Rx Instructions: with meals E11.9 gabapentin 300 mg capsule 300 mg PO TID 0RF simvastatin 40 mg tablet 40 mg PO QHS 0RF Lantus Solostar U-100 Insulin 100 unit/mL (3 mL) insulin pen 25 unit subcut BID 0RF Rx Instructions: E11.9 [facility] Endo prazosin [Minipress] 5 mg Capsule 5 mg PO DAILY 0RF quetiapine [Seroquel] 400 mg Tablet 100 mg PO DAILY PRN0RF quetiapine [Seroquel] 50 mg tablet 300 mg PO QHS 0RF Rx Instructions: Complementary RX Discharge Instructions Instructions: Pleural Effusion (ED), Anemia (ED) Additional Instructions: At this time your laboratory values and work-up reveal anemia, pleural effusion, and you have had persistent mild tachycardia. Your glucose has responded well to the IV glucose and seems to have stabilized. I have recommended admission which you have declined. Instead you would prefer to be discharged, will take Lasix for the next 4 days, and begin taking your iron supplementation for your anemia. We discussed a blood transfusion at this time and this to you have declined. Please watch for new or worsening symptoms and return to the ER for any concerns. Otherwise please contact your primary care provider first thing Wednesday morning as I want you to be reevaluated sooner than your scheduled appointment on Wednesday Discharge Data Discharge Date/Time-TO BE ENTERED AT DEPARTURE: 08/16/21 21:05 Medical Decision Making 31-year-old female, morbid obesity, history of insulin-dependent diabetes presents to the ER for concern of fluid retention, worsening shortness of breath, rule out PE. She presents with mild hypertension, tachycardia, mild tachypnea. Plan is to obtain IV access and initiate cardiac work-up including a CTA of the chest. Fingerstick glucose via EMS was 57. Will monitor closely. Received a call from lab with a critical glucose of 43. Patient given an amp of glucose, glucose and was rechecked at 16 6 and was 125. Was rechecked again at 1711 and was 95. Patient given another amp of glucose at 1712. Glucose was then 116 at 1735 and then was 110, subsequent glucose all above 100 Laboratory values reveal mild nonspecific leukocytosis of 12.92, anemia with hemoglobin of 7.8 hematocrit 27.6 platelet count 434. We will add on a type and cross for potential transfusion. D-dimer elevated at 640. Electrolytes unremarkable, renal function normal. Troponin less than 50. BNP 148. We discussed her anemia, patient reports that she knows she has anemia at baseline, is supposed to be taking iron but is not, has a very heavy and irregular menstrual cycle. Is currently ending a nearly 3-week long heavy menstrual cycle. We discussed her anemia in length, she denies black tarry stools or bright red blood in her stools. Rectal exam was deferred. We discussed that her symptoms could be secondary to anemia and we discussed blood transfusion but patient declines as she had a blood transfusion in the past and did not like the way it made her feel. Patient tells me she is more concerned regarding her fluid retention CTA of the chest reveals pleural effusions but no PE Heart rate is now 104. The patient is maintaining oxygen level it is appropriate without any supplemental O2. We discussed her evaluation in length regarding her anemia, persistent tachycardia, mild leukocytosis, pleural effusions, etc. I feel as though given her baseline chronic state of health in the setting of her presentation today admission for transfusion, diuresis, monitoring of her tachycardia and leukocytosis are all reasonable. Patient declines this. Patient states that she would prefer to be given Lasix, diuresis slowly at home, and will follow up with her primary care provider. She will watch for easy bruising, bleeding, petechiae, worsening vaginal bleeding, black tarry stools or bright red blood in her stools and promises to return to the ER for new or worsening symptoms. 40 p.o. Lasix given. She is scheduled to be seen by her primary care provider on Wednesday but she will contact them first thing Wednesday morning to set up an appointment either Wednesday or Wednesday, I will provide her with a total of 4 additional days of 40 mg p.o. Lasix. Strict discharge and return precautions were provided. This documentation was generated using Histogenation system, please disregard any oddities of phrase or misspellings. Medical Records Medical records reviewed: Yes I reviewed the patient's medical records. Imaging Data Radiologic Study: Attestation: I personally reviewed and interpreted this imaging study as follows: Imaging: CT Scan Radiologist's impression: Exam(s) PROCEDURE INFORMATION: Exam: CTA Chest With Contrast Exam date and time: 08/16/2021 6:54 PM Age: 31 years old Clinical indication: Shortness of breath and tachypnea; Patient HX: SOB, tachy TECHNIQUE: Imaging protocol: Computed tomographic angiography of the chest with contrast. 3D rendering (Not supervised by radiologist): MIP and/or 3D reconstructed images were created by the technologist. COMPARISON: CR XR CHEST 2V PA LATERAL 06/16/2021 8:51 PM FINDINGS: Pulmonary arteries: Normal. No pulmonary emboli. Aorta: Unremarkable. No aortic aneurysm. No aortic dissection. Lungs: There are patchy areas of multifocal streaky opacity are present in the lung younger bilaterally. Mild intralobular septal thickening is present. Pleural spaces: There are small bilateral pleural effusions. Heart: Heart is enlarged. Lymph nodes: Unremarkable. No enlarged lymph nodes. Liver: Hepatic steatosis is present. Bones/joints: Unremarkable. No acute fracture. Soft tissues: Unremarkable. IMPRESSION: 1. No pulmonary embolus identified. 2. Small bilateral pleural effusions with mild interstitial edema and multifocal streaky opacities which likely represent atelectasis. 3. Cardiomegaly. 4. Hepatic steatosis Lab Data Lab results reviewed: Yes I reviewed the patient's lab results. Labs: Laboratory Tests Range/Units 08/16/21 08/16/21 08/16/21 16:02 16:02 16:02 WBC (4.4-10.8) 10^3/uL 12.92 H RBC (3.93-5.22) 10^6/uL 3.92 L Hgb (11.2-15.7) g/dL 7.8 L Hct (36.0-46.0) % 27.6 L MCV (80-95) fL 70.4 L MCH (27.0-33.0) pg 19.9 L MCHC (32.0-36.0) % 28.3 L RDW (11.7-14.6) % 19.7 H Plt Count (130-400) 10^3/uL 434 H MPV (8.0-11.0) fL 10.3 Immature Gran % 2.0 Neutrophils % 72.3 Lymphocytes % 16.0 Monocytes % 7.7 Eosinophils % 1.6 Basophils % 0.4 Nucleated RBC % % 0 Absolute Neutrophils (1.2-6.7) 10^3/uL 9.34 H Absolute Lymphocytes (1.2-3.4) 10^3/uL 2.07 Absolute Monocytes (0.1-0.8) 10^3/uL 0.99 H Absolute Eosinophils (0.0-0.7) 10^3/uL 0.21 Absolute Basophils (0.0-0.2) 10^3/uL 0.05 RBC Morphology See Below Polychromasia Present Hypochromasia 1+ Poikilocytosis 1+ Microcytosis 2+ PT (9.3-11.0) sec 9.9 INR (0.9-1.1) 1.0 APTT (21.0-27.5) sec 24.7 D-Dimer (<500) ng/mlFEU 640 H Sodium (136-145) mmol/L 139 Potassium (3.5-5.1) mmol/L 3.6 Chloride (98-107) mmol/L 103 Carbon Dioxide (21.0-32.0) mmol/L 27.0 Anion Gap (3-11) mmol/L 9.0 BUN (7-18) mg/dL 14 Creatinine (0.55-1.02) mg/dL 0.8 Estimated GFR/1.73 m2 (mL/min/1.73m2) >= 60.00 Glucose (74-106) mg/dL 43 L* Calcium (8.5-10.1) mg/dL 8.8 Magnesium (1.8-2.4) mg/dL 2.0 Total Bilirubin (0.2-1.0) mg/dL 0.3 AST (15-37) U/L 26 ALT (14-59) U/L 29 Alkaline Phosphatase (46-116) U/L 97 Troponin I (<or=60) ng/L < 50 NT-Pro-B Natriuret Pep (<300) pg/mL 148 Total Protein (6.4-8.2) g/dL 8.4 H Albumin (3.4-5.0) g/dL 3.2 L COVID-19 Source SARS-CoV-2 (PCR) (Negative) Patient ABO/Rh Antibody Screen Range/Units 08/16/21 08/16/21 08/16/21 17:00 17:35 18:54 WBC (4.4-10.8) 10^3/uL RBC (3.93-5.22) 10^6/uL Hgb (11.2-15.7) g/dL Hct (36.0-46.0) % MCV (80-95) fL MCH (27.0-33.0) pg MCHC (32.0-36.0) % RDW (11.7-14.6) % Plt Count (130-400) 10^3/uL MPV (8.0-11.0) fL Immature Gran % Neutrophils % Lymphocytes % Monocytes % Eosinophils % Basophils % Nucleated RBC % % Absolute Neutrophils (1.2-6.7) 10^3/uL Absolute Lymphocytes (1.2-3.4) 10^3/uL Absolute Monocytes (0.1-0.8) 10^3/uL Absolute Eosinophils (0.0-0.7) 10^3/uL Absolute Basophils (0.0-0.2) 10^3/uL RBC Morphology Polychromasia Hypochromasia Poikilocytosis Microcytosis PT (9.3-11.0) sec INR (0.9-1.1) APTT (21.0-27.5) sec D-Dimer (<500) ng/mlFEU Sodium (136-145) mmol/L Potassium (3.5-5.1) mmol/L Chloride (98-107) mmol/L Carbon Dioxide (21.0-32.0) mmol/L Anion Gap (3-11) mmol/L BUN (7-18) mg/dL Creatinine (0.55-1.02) mg/dL Estimated GFR/1.73 m2 (mL/min/1.73m2) Glucose (74-106) mg/dL Calcium (8.5-10.1) mg/dL Magnesium (1.8-2.4) mg/dL Total Bilirubin (0.2-1.0) mg/dL AST (15-37) U/L ALT (14-59) U/L Alkaline Phosphatase (46-116) U/L Troponin I (<or=60) ng/L Cancelled NT-Pro-B Natriuret Pep (<300) pg/mL Total Protein (6.4-8.2) g/dL Albumin (3.4-5.0) g/dL COVID-19 Source Nasal/Nares SARS-CoV-2 (PCR) (Negative) Negative Patient ABO/Rh O Positive Antibody Screen NEGATIVE ECG Data Attestation: I personally reviewed and interpreted this ECG (s) as follows: Interpretation: Please see official report by Dr. White, sinus tachycardia, ventricular rate of 109, no STEMI. HPI General Mode of arrival: EMS . Date/Time Provider Initiated Documentation: 08/16/21 15:40 . Limitations to Documentation: no limitations . Information obtained by: patient and EMS . HPI Narrative: This is a 31-year-old female, past medical history of type 2 diabetes, morbid obesity, presenting to the ER today via EMS at the recommendations of [facility] for ongoing shortness of breath and concern for potential PE. Patient states that in general she has not felt well for a couple of weeks, reports that she feels like both of her legs are swollen, possible fluid retention, and also reports some shortness of breath at rest and with exertion. Patient states that she has required Lasix in the past 2 help with her fluid retention. She denies recent illness or trauma. Denies fever, chest pains, abdominal pain, nausea, vomiting, change in bowel or bladder function, calf pain, history of DVT or PE. Patient tells me that she took her insulin as she typically does today but did not have anything to eat, EMS noted her glucose to be 57. Patient reports baseline mild tachycardia Related Data Home Medications Medication Instructions Recorded Confirmed prazosin 5 mg capsule (Minipress) 5 mg PO DAILY 06/16/21 08/16/21 quetiapine 400 mg tablet (Seroquel) 100 mg PO DAILY PRN 06/16/21 08/16/21 blood sugar diagnostic (ServerEnginesTouch #10 ea 06/20/21 08/16/21 Verio test strips) gabapentin 300 mg capsule 300 mg PO TID 06/20/21 08/16/21 insulin lispro 100 unit/mL 5 unit SUBCUT TID 06/20/21 08/16/21 subcutaneous pen (Humalog KwikPen (U-100) Insulin) lancets (ServerEnginesTouch UltraSoft #100 ea 06/20/21 08/16/21 Lancets) levothyroxine 200 mcg tablet 200 mcg PO DAILY 06/20/21 08/16/21 pen needle, diabetic 32 gauge x #50 ea 06/20/21 08/16/21/32 (Pen Needle) polyethylene glycol 3350 17 17 g PO DAILY 06/20/21 08/16/21 gram/dose oral powder (Miralax) simvastatin 40 mg tablet 40 mg PO QHS tab 06/20/21 08/16/21 insulin aspart U-100 100 unit/mL See Rx Instructions SUBCUT TID 07/07/21 08/16/21 (3 mL) subcutaneous pen (Novolog Flexpen U-100 Insulin aspart) insulin glargine 100 unit/mL (3 25 unit SUBCUT BID ml 07/07/21 08/16/21 mL) subcutaneous pen (Lantus Solostar U-100 Insulin) metformin 500 mg tablet 500 mg PO DAILY 07/07/21 08/16/21 furosemide 40 mg tablet (Lasix) 40 mg PO DAILY #3 tab 08/16/21 quetiapine 50 mg tablet (Seroquel) 300 mg PO QHS 08/16/21 08/16/21 Previous Rx's Medication Instructions Recorded furosemide 40 mg tablet (Lasix) 40 mg PO DAILY #3 tab 08/16/21 Allergies Allergy/AdvReac Type Severity Reaction Status Date / Time mushrooms Allergy Unknown rash Uncoded 08/16/21 15:45 General ALEKSANDR: 2 Review of Systems Constitutional Constitutional: Denies fatigue, Denies fever(s) and Denies weakness ENT Ears, Nose, Mouth, and Throat: Denies neck pain Cardiovascular Cardiovascular: Denies chest pain and Reports dyspnea Respiratory Respiratory: Denies cough and Reports dyspnea Gastrointestinal Gastrointestinal: Denies abdominal pain, Denies nausea and Denies vomiting Musculoskeletal Musculoskeletal: Denies back pain and Denies neck pain Integumentary/Breasts Skin/Breast: Denies rash Neurologic Neurologic: Denies weakness Endocrine Endocrine: Denies fatigue Hematologic/Lymphatic Hematologic/Lymphatic: Denies easy bleeding, Denies easy bruising and Reports other (Reports history of anemia) PFSH All Active Problems Pleural effusion (Acute) Anemia (Chronic) Dependent for transportation (Chronic) RCT T2DM (type 2 diabetes mellitus) (Chronic ~2010) [place]; [facility] Endo Morbid obesity (Chronic) BMI >60 Obstructive sleep apnea (adult) (pediatric) (Chronic ~2007) C-P[facility]; [facility] Mixed hyperlipidemia (Chronic) PTSD (post-traumatic stress disorder) (Chronic) [facility] Schizoaffective disorder, bipolar type (Chronic) [facility] Hypothyroid (Chronic) [facility] Endo Medical History Abnormal CAT scan abscess at right gluteal area/coccyx, early osteomyelitis? Constipation by delayed colonic transit Dissociative identity disorder (~2014) Influenza vaccination declined by patient 03/02/21 Iron deficiency anemia due to chronic blood loss Menorrhagia with irregular cycle Plantar fasciitis Sleep apnea Surgical History No significant past surgical history Family History Father Diabetes Alcohol use disorder Mother Seizure disorder Social History Smoking/Tobacco Use Status: Never Second Hand Exposure: No Smoking risk assessment performed?: Yes Alcohol Intake: current Alcohol Intake frequency: a few times a month Drug use: Rarely Substance use type: marijuana Adopted: Yes Caregiver/Support person: No Foster care: Yes Household members: none Housing: apartment Number of Children: 0 Communication Needs: None Education Level: college Details: associate's degree Do you need help understanding health information?: Never current occupation: [employer] Pets and animals: No Sexually active: No Do you think of yourself as: bisexual Current gender identity: female What is your relationship status?: never How often do you talk on the phone with friends or family?: three or more times per week How often do you get together with friends or relatives?: never Do you belong to any clubs or organized social groups?: no Panel score (0-1 are the most socially isolated patients): 1 What type of physical activity do you participate in: walking Duration: < 15 minutes/day Frequency: 1-2 times per week Vane/Mu-Ism: None Special vane needs: No Seatbelt use: sometimes Helmet use: No Drive intox or ride w/intox 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 truck driver: No Do you feel safe at home: Yes Do you feel safe in your relationship?: Yes Exam Const General: cooperative, healthy appearing, comfortable and no acute distress Orientation: alert, awake and oriented x3 HENMT Head: normal to inspection, normocephalic and atraumatic Face and sinus: normal facial exam Mouth: moist mucous membranes Eyes General: appearance normal, both eyes and all related structures Conjunctivae: conjunctivae normal Neck Neck: normal visual inspection, trachea midline and supple Resp Effort & Inspection: normal respiratory effort, able to speak in complete sentences and tachypneic (Mild) Auscultation: diminished lung sounds bilaterally in the lower lung younger Cardio Rate: tachycardic (116) Rhythm: regular rhythm GI Inspection: obesity Palpation: soft and nontender Rectal Exam - female: other (Rectal examination deferred) Back/Spine/Pelvis Back: No back tenderness Skin General skin exam: no rashes or lesions noted Neuro General: patient alert, patient awake, moves all extremities and no focal motor deficits Cognition: normal cognition Speech: speech normal Gait: normal gait Sensory Exam: no sensory deficits noted Extrem General: normal to inspection, full ROM, capillary refill normal, no pedal edema and no calf tenderness Psych Appearance: grossly normal Mental Status: mental status grossly normal
--- NOTE | 2021-08-16 15:45 | RT.EKG_ITS ---
APPROVED REPORT Exam: Resting ECG Reason for Exam: sob Patient Location: E HR:109 bpm ECG Measurements Heart Rate 109 AXIS AR 168 P 64 QRSd 84 QRS 52 QT 350 T 43 QTc 471 Conclusion Sinus tachycardia...rate> 99 Low voltage, precordial leads...precordial leads <1.0mV
[2021-08-16 16:13] LABS: Abs Immature Grans 0.26 10^3/uL (0.0-0.06); Absolute Basophil Count 0.05 10^3/uL (0.0-0.2); Absolute Eosinophil Count 0.21 10^3/uL (0.0-0.7); Absolute Lymphocyte Count 2.07 10^3/uL (1.2-3.4); Basophils % 0.4; Eosinophils % 1.6; HCT 27.6 % (36.0-46.0); HGB 7.8 g/dL (11.2-15.7); MCH 19.9 pg (27.0-33.0); MCHC 28.3 % (32.0-36.0); MCV 70.4 fL (80-95); MPV 10.3 fL (8.0-11.0); Monocytes % 7.7; Neutrophils % 72.3; Nucleated RBC 0 %; Platelet Count 434 10^3/uL (130-400); RBC 3.92 10^6/uL (3.93-5.22); RDW 19.7 % (11.7-14.6); RDW-SD 48.5 fL; WBC 12.92 10^3/uL (4.4-10.8)
[2021-08-16 16:20] LABS: Absolute Monocyte Count 0.99 10^3/uL (0.1-0.8); Absolute Neutrophil Count 9.34 10^3/uL (1.2-6.7)
[2021-08-16 16:26] LABS: PTT Activated 24.7 sec (21.0-27.5); Prothrombin Time 9.9 sec (9.3-11.0)
[2021-08-16 16:29] LABS: Diff Comment RBC Morph Reviewed; Hypochromasia 1+; Microcytosis 2+; Polychromasia Present
[2021-08-16 16:30] LABS: Poikilocytes 1+
--- NOTE | 2021-08-16 16:30 | DI.CT_ITS ---
Exam(s) CT CHEST PE CTA EXAM: CT CHEST PE CTA CLINICAL HISTORY: sob,tachy. TECHNIQUE: Imaging Protocol: CT angiography of the chest was performed using pulmonary embolus bailee col. Multi planar reconstructions were performed. CONTRAST MATERIAL: Intravenous: Omnipaque 350 Contrast volume: 100 cc COMPARISON: No exams were available for comparison FINDINGS: CHEST: PULMONARY ARTERIES: There are no intraluminal filling defects to suggest acute pulmonary emboli. LUNGS: There are patchy bilateral infiltrates and there are symmetrical small bilateral pleural effus ions evident.. There are no pleural effusions. MEDIASTINUM: Slightly enlarged bilateral parahilar lymph nodes are noted.. No obvious mediastinal ad enopathy. Visualized thyroid unremarkable. CARDIAC: Cardiomegaly. No pericardial effusion.Caliber of the thoracic aorta is within normal limits . No dissection. There is no significant shift of the interventricular septum. PARTIALLY VISUALIZED UPPERMOST ABDOMEN: No obvious findings OSSEOUS: No significant osseous lesions.. IMPRESSION: 1. No evidence of acute pulmonary emboli. No evidence of pulmonary infarction.There are patchy infil trates bilaterally. Also small bilateral pleural effusions approximately equal size bilaterally. 2. Slightly enlarged hilar lymph nodes noted bilaterally. No mediastinal adenopathy evident 3. Cardiomegaly. No pericardial effusion. No thoracic aortic aneurysm. RADIATION DOSE DELIVERED: 739.93mGy.cm Total DLP DATA REPOSITORY: All CT scans at this facility are submitted to the National Radiology Data Registry (NRDR) Dose Index Registry (DIR) with the [employer] (ACR). RADIATION OPTIMIZATION: All CT scans at this facility use at least one of these dose optimization te chniques: automated exposure control; mA and/or kV adjustment per patient size (includes targeted exa ms where dose is matched to clinical indication); or iterative reconstruction.
[2021-08-16 16:33] LABS: ALT 29 U/L (14-59); AST 26 U/L (15-37); Albumin 3.2 g/dL (3.4-5.0); Alkaline Phosphatase 97 U/L (46-116); BUN 14 mg/dL (7-18); Bilirubin, Total 0.3 mg/dL (0.2-1.0); CREATININE 0.8 mg/dL (0.55-1.02); Calcium 8.8 mg/dL (8.5-10.1); Chloride 103 mmol/L (98-107); NT-proBNP 148 pg/mL (<300); Potassium 3.6 mmol/L (3.5-5.1); Sodium 139 mmol/L (136-145); Total Protein 8.4 g/dL (6.4-8.2); Troponin I < 50 ng/L (<or=60)
[2021-08-16 16:36] LABS: Glucose 43 mg/dL (74-106)
[2021-08-16] MEDS: Dextrose 50%-Water 25 GM/50 ML SYR IVP ×2 (16:39→17:18)
[2021-08-16 16:42] LABS: D-Dimer 640 ng/mlFEU (<500)
[2021-08-16 17:02] LABS: Source Nasal/Nares
[2021-08-16 17:44] LABS: COVID-19 PCR Negative (Negative)
--- NOTE | 2021-08-16 19:39 | DI.VRAD_ITS ---
PROCEDURE INFORMATION: Exam: CTA Chest With Contrast Exam date and time: 08/16/2021 6:54 PM Age: 31 years old Clinical indication: Shortness of breath and tachypnea; Patient HX: SOB, tachy TECHNIQUE: Imaging protocol: Computed tomographic angiography of the chest with contrast. 3D rendering (Not supervised by radiologist): MIP and/or 3D reconstructed images were created by the technologist. COMPARISON: CR XR CHEST 2V PA LATERAL 06/16/2021 8:51 PM FINDINGS: Pulmonary arteries: Normal. No pulmonary emboli. Aorta: Unremarkable. No aortic aneurysm. No aortic dissection. Lungs: There are patchy areas of multifocal streaky opacity are present in the lung younger bilaterally. Mild intralobular septal thickening is present. Pleural spaces: There are small bilateral pleural effusions. Heart: Heart is enlarged. Lymph nodes: Unremarkable. No enlarged lymph nodes. Liver: Hepatic steatosis is present. Bones/joints: Unremarkable. No acute fracture. Soft tissues: Unremarkable. IMPRESSION: 1. No pulmonary embolus identified. 2. Small bilateral pleural effusions with mild interstitial edema and multifocal streaky opacities which likely represent atelectasis. 3. Cardiomegaly. 4. Hepatic steatosis. Dictated and Authenticated by: Sudha Parrish MD. Ordering:YAIMA Hanley MD
--- NOTE | 2021-08-16 20:09 | NUR.NOTE ---
pt was given a turkey sandwich to eat
[2021-08-16] MEDS: Furosemide 40 MG TAB PO (20:23)
[2021-08-16] MEDS: Furosemide 20 MG TAB PO (21:02)
== END 2021-08-16 21:05 | disposition home or self-care (01) ==
PROVIDERS: Emergency Provider Physician Assistant; PCP Nurse Practitioner Adult Health
DX: J90 Pleural effusion, not elsewhere classified (principal); R06.02 Shortness of breath; D64.9 Anemia, unspecified; R00.0 Tachycardia, unspecified; Z20.822 Contact with and (suspected) exposure to COVID-19; E11.649 Type 2 diabetes mellitus with hypoglycemia without coma; Z79.4 Long term (current) use of insulin; D72.829 Elevated white blood cell count, unspecified
CPT/HCPCS: 36415; 36416; 71275; 80053; 82962; 86850; 86900; 86901; 87635; 93005; 96374; 96375; 99284; 99285; 83735; 83880; 84484; 85025; 85379; 85610; 85730; 93010

== ENCOUNTER → 2021-08-22 00:41 | Outpatient (CLI) | payer MEDICARE, MEDICAID, SELFPAY ==
--- NOTE | 2021-08-22 13:58 | DI.US_ITS ---
APPROVED REPORT EXAM: Comprehensive 2D, Doppler, and color-flow Echocardiogram Patient Location: Out-Patient Regional Liaison: Maru Rojas RDCS (AE) Indications: Cardiomegaly, ?CHF Other Information Study Quality: Fair. Technically limited study due to body habitus. Conclusion Technically difficult study Mild concentric left ventricular hypertrophy. Estimated left ventricular systolic function is border line with EF 50 to 55%. There are no segmental wall motion abnormalities Normal right ventricular size and systolic function Both atria are normal in size No structural or hemodynamically significant valvular abnormalities Wall motion Left Ventricle The left ventricle is normal size. Left ventricular systolic function is borderline. Mild concentric left ventricular hypertrophy. There are no segmental wall motion abnormalities There is no ventricula r septal defect visualized. LVEF is 50 to 55% Right Ventricle Right ventricle is grossly normal in size. Right ventricular systolic function is grossly normal. Atria The left atrium size is normal. The right atrium size is normal. The interatrial septum is intact wit h no evidence for an atrial septal defect. Aortic Valve The aortic valve is normal in structure. Aortic valve is probably trileaflet. There is no aortic valv ular stenosis. No aortic regurgitation is present. Mitral Valve The mitral valve is normal in structure. No evidence of mitral valve stenosis. Mild mitral regurgitat ion. Tricuspid Valve The tricuspid valve is normal in structure. There is no tricuspid valve stenosis. Mild tricuspid regu rgitation. Pulmonic Valve The pulmonary valve is normal in structure. There is no pulmonic valvular stenosis. Trace pulmonic re gurgitation. Great Vessels The aortic root is normal in size. The ascending aorta is normal in size. IVC is normal in size and c ollapses >50% with inspiration. Pericardium 2D Dimensions IVSD d PLAX 1.11 cm F: 0.6-1.0 LV Vol A2C d MOD 135.7 mL LVPW d PLAX 1.15 cm F: 0.6 - 1.0 LV Vol A4C d MOD 200.2 mL LVID d PLAX 5.00 cm F: 3.8 - 5.2 LA vol/ BSA A2C s A-L 24.0 mL/m2 LVDs 3.75 cm F: 2.2 - 3.5 LA vol/ BSA A4C s A-L 28.3 mL/m2 Ao Root d 2.84 cm F: 2.7 - 3.3 LA Vol/ BSA Biplane s A-L 28.9 mL/m2 RA Area A4C 19.87 cm2 LA Area A4C s MOD 24.03 cm2 RA Vol/ BSA A4C s A-L 20.1 mL/m2 LA Area A2C s MOD 19.98 cm2 Ao Asc Diam d 3.39 cm F: 2.3 - 3.1 LV EF A4C MOD 40.3 % LV EF Teichholz 48.1 % LV EF A2C MOD 45.5 % LVEF (Torres's) 43.46 % F: 54 - 74 LV EF Biplane MOD 43.5 % LV Volume 120.63 mL F: 46 - 106 SV 76.45 mL LV Volume Index 44.84 mL/m2 F: 29 - 61 SV Index 28.40 mL/m2 LV Vol Biplane MOD 175.9 mL FS 24.25 % M-Mode TAPSE 2.75 cm (M/F) >1.7 LV Diastology MV E Vmax 1.23 (0.4-1.3 m/s) Aortic Valve LVOT Area 3.98 cm2 AoV Area Vmax 3.08 cm2 LVOT Vmax 1.37 m/s AoV Area/ BSA (Vmax) 1.14 cm2/m2 LVOT Mean Gerry. 0.91 m/s CHRISTINA Mean Gerry. 2.82 cm2 LVOT Peak Grad 7.5 mmHg CHRISTINA Mean Gerry. Index 1.05 cm2/m2 LVOT Mean Grad 4.0 mmHg LVOT VTI 0.223 m LVOT Diam s 2.25 cm AoV Vmax 1.77 m/s Velocity Ratio 0.77 AoV Mean Gerry. 1.29 m/s AoV Peak Grad 12.5 mmHg LVOT SV 88.64 mL AoV Mean Grad 7.4 mmHg AoV VTI 0.320 m AoV Area VTI 2.77 cm2 AoV Area/ BSA (VTI) 1.03 cm/m2 Mitral Valve MV DT 237 (160-240 msec) MV PHT 69 msec MV Area PHT 3.20 cm2 MV VTI 0.309 m MV Area VTI 2.87 (4.0-6.0 cm2) Pulmonary Valve PV Vmax 1.27 (0.5-1.5 m/s) RVOT Peak Gr. 2.64 mmHg PV Peak Grad 6.5 mmHg RVOT Mean Gr. 1.60 mmHg PV Mean Grad 3.7 mmHg RVOT VTI 0.184 m PV VTI 0.238 m RVOT Vmax 0.81 m/s Tricuspid Valve TR Peak Grad 36.7 mmHg TR Vmax 3.03 m/s RA Pressure 3.00 mmHg RVSP (TR) 39.8 mmHg
== END ==
PROVIDERS: PCP Nurse Practitioner Adult Health; Visit Provider Family Medicine
DX: I51.7 Cardiomegaly (principal)
CPT/HCPCS: 93306

== ENCOUNTER 2021-08-25 02:45 | Outpatient (CLI) | payer MEDICARE, MEDICAID, SELFPAY ==
[2021-08-25 13:46] LABS: Abs Immature Grans 0.13 10^3/uL (0.0-0.06); Absolute Eosinophil Count 0.32 10^3/uL (0.0-0.7); Absolute Monocyte Count 0.75 10^3/uL (0.1-0.8); Absolute Neutrophil Count 7.24 10^3/uL (1.2-6.7); Basophils % 0.4; Eosinophils % 2.9; HCT 28.2 % (36.0-46.0); Immature Grans % 1.2; Lymphocytes % 23.7; MCHC 28.4 % (32.0-36.0); MCV 70.5 fL (80-95); MPV 9.8 fL (8.0-11.0); Monocytes % 6.7; Neutrophils % 65.1; Nucleated RBC 0 %; Platelet Count 504 10^3/uL (130-400); RDW 20.1 % (11.7-14.6); RDW-SD 49.9 fL; Reticulocyte 3.3 % (0.5-2.4); WBC 11.12 10^3/uL (4.4-10.8)
[2021-08-25 13:58] LABS: Absolute Basophil Count 0.04 10^3/uL (0.0-0.2); Absolute Lymphocyte Count 2.64 10^3/uL (1.2-3.4)
[2021-08-25 14:26] LABS: Diff Comment Agrees w/ Instrument
[2021-08-25 14:29] LABS: Anisocytosis 2+; Hypochromasia 1+; Microcytosis 2+; Poikilocytes 2+
[2021-08-25 14:37] LABS: Iron 90 ug/dL (50-170); Total Iron Binding Capacity 513 ug/dL (250-450); Transferrin Sat 18 % (15-50)
[2021-08-25 14:47] LABS: Anion Gap 5.8 mmol/L (3-11); BUN 18 mg/dL (7-18); CO2 28.2 mmol/L (21.0-32.0); CREATININE 0.6 mg/dL (0.55-1.02); Calcium 8.9 mg/dL (8.5-10.1); Chloride 101 mmol/L (98-107); Ferritin 10 ng/mL (8-252); Glucose 125 mg/dL (74-106); Potassium 4.1 mmol/L (3.5-5.1); Sodium 135 mmol/L (136-145)
== END 2021-08-25 02:46 | disposition home or self-care (01) ==
LOC: LBO 02:45
PROVIDERS: PCP Nurse Practitioner Adult Health; Visit Provider Nurse Practitioner Adult Health
DX: E11.9 Type 2 diabetes mellitus without complications (principal); D50.9 Iron deficiency anemia, unspecified; N92.0 Excessive and frequent menstruation with regular cycle; Z51.81 Encounter for therapeutic drug level monitoring
CPT/HCPCS: 36415; 80048; 82728; 83540; 83550; 85025; 85045

== ENCOUNTER 2021-08-28 09:19 | Outpatient (CLI) | payer MEDICARE, MEDICAID, SELFPAY ==
--- NOTE | 2021-08-28 10:00 | RT.EKG_ITS ---
APPROVED REPORT Exam: Resting ECG Reason for Exam: cardiomegaly Patient Location: O HR:103 bpm ECG Measurements Heart Rate 103 AXIS OH 167 P 59 QRSd 84 QRS 36 QT 347 T 50 QTc 454 Conclusion Sinus tachycardia...rate> 99 Low voltage, precordial leads...precordial leads <1.0mV
== END 2021-08-28 09:20 | disposition home or self-care (01) ==
LOC: DI.CARD 10:07
PROVIDERS: PCP Nurse Practitioner Adult Health; Referring Provider Nurse Practitioner Adult Health; Visit Provider Internal Medicine Cardiovascular Disease
DX: I51.7 Cardiomegaly (principal)
CPT/HCPCS: 93010

== ENCOUNTER → 2021-08-28 09:19 | Outpatient (BNVA) | payer MEDICARE, MEDICAID, SELFPAY | PROVIDERS: PCP Nurse Practitioner Adult Health; Referring Provider Nurse Practitioner Adult Health; Visit Provider Internal Medicine Cardiovascular Disease | DX: I51.7 Cardiomegaly (principal); I50.30 Unspecified diastolic (congestive) heart failure; E11.9 Type 2 diabetes mellitus without complications; D50.0 Iron deficiency anemia secondary to blood loss (chronic); E66.01 Morbid (severe) obesity due to excess calories; G47.33 Obstructive sleep apnea (adult) (pediatric) | CPT/HCPCS: 93005; 99204; 99215 ==

== ENCOUNTER 2021-09-10 03:41 | Outpatient (RCR) | payer MEDICARE, MEDICAID, SELFPAY ==
[2021-09-10] MEDS: IRON SUCROSE COMPLEX 200 MG in Normal Saline 100 ML 440 MG IVPB (09:54)
[2021-09-10] MEDS: Normal Saline Flush 10 ML SYR IVP (09:55)
== END 2021-09-13 23:59 | disposition home or self-care (01) ==
LOC: INF 03:41
PROVIDERS: PCP Nurse Practitioner Adult Health; Visit Provider Nurse Practitioner Adult Health
DX: D50.9 Iron deficiency anemia, unspecified (principal)
CPT/HCPCS: 96365; J1756

== ENCOUNTER 2021-09-24 00:57 | Outpatient (RCR) | payer MEDICARE, MEDICAID, SELFPAY ==
[2021-09-24] MEDS: IRON SUCROSE COMPLEX 200 MG in Normal Saline 100 ML 440 MG IVPB (10:10)
[2021-09-24] MEDS: Normal Saline Flush 10 ML SYR IVP (10:10)
== END 2021-10-14 23:59 | disposition home or self-care (01) ==
LOC: INF 00:57
PROVIDERS: PCP Nurse Practitioner Adult Health; Visit Provider Nurse Practitioner Adult Health
DX: D50.9 Iron deficiency anemia, unspecified (principal)
CPT/HCPCS: 96365; J1756

== ENCOUNTER 2021-10-02 03:45 | Outpatient (CLI) | payer MEDICARE, MEDICAID, SELFPAY ==
[2021-10-02 09:47] LABS: HCT 30.6 % (36.0-46.0); HGB 8.8 g/dL (11.2-15.7); MCH 22.3 pg (27.0-33.0); MCHC 28.8 % (32.0-36.0); MCV 78 fL (80-95); Platelet Count 408 10^3/uL (130-400); RBC 3.95 10^6/uL (3.93-5.22); RDW-SD 64.5 fL
[2021-10-02 11:00] LABS: Ferritin 46 ng/mL (8-252)
[2021-10-02 20:31] LABS: Estradiol 40 pg/mL (See Note)
[2021-10-02 20:44] LABS: FSH 3.7 mIU/mL (See Note)
[2021-10-03 10:58] LABS: Factor 8 Assay 231 % (50-150); Von Willebrand Factor Antigen 213 % (50-185)
== END 2021-10-02 03:46 | disposition home or self-care (01) ==
LOC: LBO 03:46
PROVIDERS: PCP Nurse Practitioner Adult Health; Visit Provider Obstetrics & Gynecology
DX: N92.1 Excessive and frequent menstruation with irregular cycle (principal); N92.5 Other specified irregular menstruation; D50.9 Iron deficiency anemia, unspecified
CPT/HCPCS: 36415; 85027; 85245; 85246; 82670; 82728; 83001; 85240

== ENCOUNTER 2021-10-24 00:55 | Outpatient (RCR) | payer MEDICARE, MEDICAID, SELFPAY ==
[2021-10-16] MEDS: IRON SUCROSE COMPLEX 200 MG in Normal Saline 100 ML 440 MG IVPB (09:33)
[2021-10-16] MEDS: Normal Saline Flush 10 ML SYR IVP (09:33)
[2021-10-24] MEDS: IRON SUCROSE COMPLEX 200 MG in Normal Saline 100 ML 440 MG IVPB (09:40)
[2021-10-24] MEDS: Normal Saline Flush 10 ML SYR IVP (09:41)
== END 2021-11-13 23:59 | disposition home or self-care (01) ==
LOC: INF 00:55
PROVIDERS: PCP Nurse Practitioner Adult Health; Visit Provider Nurse Practitioner Adult Health
DX: D50.9 Iron deficiency anemia, unspecified (principal)
CPT/HCPCS: 96365; J1756

== ENCOUNTER 2021-10-27 11:55 | Outpatient (REF) | payer MEDICARE, MEDICAID, SELFPAY ==
[2021-10-27 15:02] LABS: Abs Immature Grans 0.17 10^3/uL (0.0-0.06); Absolute Basophil Count 0.03 10^3/uL (0.0-0.2); Absolute Eosinophil Count 0.24 10^3/uL (0.0-0.7); Absolute Lymphocyte Count 1.63 10^3/uL (1.2-3.4); Absolute Monocyte Count 0.84 10^3/uL (0.1-0.8); Absolute Neutrophil Count 7.27 10^3/uL (1.2-6.7); Basophils % 0.3; Eosinophils % 2.4; HCT 28.1 % (36.0-46.0); HGB 8.3 g/dL (11.2-15.7); Immature Grans % 1.7; MCH 23.2 pg (27.0-33.0); MCHC 29.5 % (32.0-36.0); MCV 79 fL (80-95); MPV 10.6 fL (8.0-11.0); Monocytes % 8.3; Neutrophils % 71.3; Nucleated RBC 0.2 % (0.0-0.3); Platelet Count 411 10^3/uL (130-400); RBC 3.57 10^6/uL (3.93-5.22); RDW 20.8 % (11.7-14.6); WBC 10.18 10^3/uL (4.4-10.8)
[2021-10-27 15:44] LABS: ALT 27 U/L (14-59); AST 14 U/L (15-37); Albumin 3.3 g/dL (3.4-5.0); Alkaline Phosphatase 88 U/L (46-116); Anion Gap 8.6 mmol/L (3-11); BUN 10 mg/dL (7-18); Bilirubin, Total 0.1 mg/dL (0.2-1.0); CO2 26.4 mmol/L (21.0-32.0); CREATININE 0.7 mg/dL (0.55-1.02); Calcium 8.8 mg/dL (8.5-10.1); Chloride 105 mmol/L (98-107); Ferritin 73 ng/mL (8-252); Glucose 87 mg/dL (74-106); NT-proBNP 110 pg/mL (<300); Potassium 4.4 mmol/L (3.5-5.1); Sodium 140 mmol/L (136-145); Total Protein 7.2 g/dL (6.4-8.2)
[2021-10-27 15:53] LABS: Anisocytosis 2+; Diff Comment RBC Morph Reviewed; Hypochromasia 1+; Microcytosis 1+; Poikilocytes 1+; Polychromasia Present
== END 2021-10-27 11:56 | disposition home or self-care (01) ==
LOC: LBN 11:55
PROVIDERS: PCP Nurse Practitioner Adult Health; Visit Provider Nurse Practitioner Adult Health
DX: D50.0 Iron deficiency anemia secondary to blood loss (chronic) (principal); E03.9 Hypothyroidism, unspecified; I50.30 Unspecified diastolic (congestive) heart failure; N92.1 Excessive and frequent menstruation with irregular cycle
CPT/HCPCS: 80053; 82728; 83880; 85025

== ENCOUNTER 2021-11-10 04:03 | Outpatient (CLI) | payer MEDICARE, MEDICAID, SELFPAY | END 2021-11-10 04:04 | disposition home or self-care (01) | LOC: DS 04:04 | PROVIDERS: PCP Nurse Practitioner Adult Health; Visit Provider Dietitian, Registered ==

== ENCOUNTER → 2021-11-20 07:50 | Outpatient (CLI) | payer MEDICARE, MEDICAID, SELFPAY ==
--- NOTE | 2021-11-10 14:57 | W.NUTCONSULT ---
Date of service: 11/10/21 Time of Service: 14:57 Nutritional Consult ASSESSMENT: Zenia was unable to come to [facility] in person today due to transportation issues. Consult completed on phone today. Zenia moved to [place] 2 years ago and reports her care in [place] has helped her tremendously with her overall health. She is followed by manager student services in [place] who has adjusted her Dm meds. She reports being prediabetic at age 16, dx with diabetes by age 20. 5'5 429 lbs BMI: 71. DM meds: 18 units AM, 14 units PM, 5 units novolog at meals, 500 mg metformin BID,0 .5 mg ozempic q week. She reports her A1C typically was >14%. Most recent A1C (09/09/21): 8.5%. Has a Toshia 2 continuous glucose monitor that reports Time in Range (70-180 mg/dl): 85% of time. Reports hx of hypoglycemia, however, none recently. She reports very infrequent blood sugars > 250 mg/dl. She has a 1:10 insulin:carb ration. 1:35 correction factor. Zenia states that she used to take 50 units lantus AM and PM, and 30 units adrienne at meals. Since getting CGM, she has been able to adjust her nutrient intake for optimal glycemic management. She wants to pursue weight loss surgery in the next year. Has degree in [employer]. Does most of her own cooking, limited intake of take out or convenience foods. Diet Recall: often skips breakfast and lunch. Has home cooked meal at dinner. Exercise: is taking stairs more often now. She reports no weight loss recently- has heart condition that causes edema. NUTRITIONAL DIAGNOSIS: morbid obesity INTERVENTION: Reviewed importance of meeting macronutrient needs for optimal weight and glycemic management. Overall, Zenia has done very well in improving her A1C and glycemic management. She is in close contact with endocrinology and is educated on how to manage hypo and hyper glycemia. Her diet has changed drastically since having CGM and she wants to further lose weight and reduce insulin administration. She ultimately wants weight loss surgery with hope of curing her DM. Also, reviewed how CGM readings can differ upto 50 points from finger sticks during time of increasing or decreasing blood sugars. Reviewed when to take finger sticks to verify CGM readings. MONITORING AND EVALUATION: follow up planned for 12/15/21 at 1 pm. Time Spent in Nutritional Counseling and Treatment: 30
== END ==
PROVIDERS: PCP Nurse Practitioner Adult Health; Visit Provider Nurse Practitioner Adult Health

== ENCOUNTER → 2021-11-25 13:19 | Outpatient (BNVA) | payer MEDICARE, MEDICAID, SELFPAY | PROVIDERS: PCP Nurse Practitioner Adult Health; Referring Provider Nurse Practitioner Adult Health; Visit Provider Internal Medicine Cardiovascular Disease | DX: I50.33 Acute on chronic diastolic (congestive) heart failure (principal); G47.33 Obstructive sleep apnea (adult) (pediatric); E66.01 Morbid (severe) obesity due to excess calories | CPT/HCPCS: 99214; 99213 ==

== ENCOUNTER 2021-12-15 04:34 | Outpatient (CLI) | payer MEDICARE, MEDICAID, SELFPAY ==
--- NOTE | 2021-12-15 13:00 | NS.NUTBLAN_ITS ---
Zenia was referred for nutritional counseling for diabetes self management and in preparation for bariatric surgery at [facility]. 5'4 429 lbs BMI: 71 11/12/21 A1C:: 6.2% DM meds: metformin 500 m g BID, ozempic q week, 12 units lantus AM, 13 units lantus PM, novlog for correction or as needed- only takes if BS >200. Diet Recall: B: eggs and toast, lunch: chicken with veggies, D: baked chicken with salad, and biscuit Exercise: 30-45 min daily. c/o lower back pain Ambulatory Glucose Profile (Toshia 2 CGM: Dec.15-November 27, 2021) Average blood sugar: 131 mg/dl Time in Range: 81% At Targt 181-250 mg/dl: 12% >250 mg/dl: 1% 54-69 mg/dl: 6% AGP indicates excellent blood sugar control however, noted with 17 episodes of low blood sugars (54-69 mg/dl) in last 14 days. Reviewing 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 episodes, we determined cause was from not eating breakfast before talking 30-45 min walk. Reviewed importance of eating 30-45 g carb at breakfast meal before going for walk. Overall, Zenia is doing a very good job following a low carb (less than 100 g daily) diet and having daily exercise. Session today also included information on bariatric surgery and how best to prepare. Encouraged Zenia to continue to follow lower carb, high protein diet and supplement with Nanci GONZALEZ Has zoom session with [facility] isaías to start bariatric process. Follow up scheduled for 01/20/22 at 12:30
== END 2021-12-15 04:35 | disposition home or self-care (01) ==
LOC: DS 04:34
PROVIDERS: PCP Nurse Practitioner Adult Health; Visit Provider Dietitian, Registered
DX: E11.9 Type 2 diabetes mellitus without complications (principal); E66.01 Morbid (severe) obesity due to excess calories; Z68.45 Body mass index [BMI] 70 or greater, adult; Z71.3 Dietary counseling and surveillance; Z79.4 Long term (current) use of insulin; Z79.84 Long term (current) use of oral 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 drugs
CPT/HCPCS: 97802

== ENCOUNTER 2021-12-25 15:30 | Outpatient (REF) | payer MEDICARE, MEDICAID, SELFPAY ==
[2021-12-27 10:42] LABS: COVID-19 RT-PCR UVMMC Result Positive (Negative)
== END 2021-12-25 15:31 | disposition home or self-care (01) ==
LOC: LBN 15:30
PROVIDERS: PCP Nurse Practitioner Adult Health; Visit Provider Physician Assistant Medical
DX: Z20.822 Contact with and (suspected) exposure to COVID-19 (principal)
CPT/HCPCS: U0003

== ENCOUNTER 2022-01-20 02:45 | Outpatient (CLI) | payer MEDICARE, MEDICAID, SELFPAY ==
--- NOTE | 2022-01-20 12:00 | NS.NUTBLAN_ITS ---
Zenia returns for weight and diabetes management education in preparation for bariatric surgery at [facility]. Meeting [facility] dietitian tomorrow. PMH: morbid obesity, Sleep Apnea, DM2 5'4 414 lbs, down 15 lbs in last month. BMI: 70 Diet Recall: 2 packets plain oatmeal for B, Lunch: 2-3 cheese sticks, D: chicken and vegetables Meds: metformin 500 mg BID, Ozempic q week, 12 units lantus AM, 13 units lantus PM, novolog for correction- only takes if BS >200 mg/dl. Exercise: walking daily 10-15 minutes despite lower back pain. Ambulatory Glucose Profile (Otshia 2 CGM Jan 19 - ) Average blood sugar: 160 mg.dl above target Time in Range: 65% target 70% 181-250 mg/dl: 31% target <25% >250 mg/dl: 4% at target No 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 events AGP report indicates increase in blood sugars in last 14 day look back period. Zenia reports has not been over eating or eating more carbohydrates than previously. Zenia attributes elevated blood sugars due to her CPAP not working properly. She is awaiting parts in mail. Reviewed with Zenia how decrease in 02 at night puts stress on body and thus increases blood sugars. Reviewed correction to improve Time In Range to minimum of 70% of time. Zenia has not had any hypo glycemic events in last 14 days. She states that she now has a timer on her phone to remind her to eat. Hypoglycemia was occurring due to going long periods of time without eating. Excellent weight loss of 15 lbs in last month. Zenia was shocked that eating more could help her lose weight. Reviewed metabolic effect of digestion. Encouraged Zenia to start taking a MVI and Vit D daily. Already is taking B12. Zenia to call to make follow up appt.
== END 2022-01-20 02:46 | disposition home or self-care (01) ==
LOC: DS 02:45
PROVIDERS: PCP Nurse Practitioner Adult Health; Visit Provider Dietitian, Registered
DX: E11.9 Type 2 diabetes mellitus without complications (principal); E66.01 Morbid (severe) obesity due to excess calories; Z71.3 Dietary counseling and surveillance; Z79.4 Long term (current) use of insulin; Z79.84 Long term (current) use of oral 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 drugs
CPT/HCPCS: 97803

== ENCOUNTER 2022-02-12 04:10 | Outpatient (CLI) | payer MEDICARE, MEDICAID, SELFPAY ==
[2022-02-12 09:42] LABS: Abs Immature Grans 0.03 10^3/uL (0.0-0.06); Absolute Basophil Count 0.06 10^3/uL (0.0-0.2); Absolute Eosinophil Count 0.38 10^3/uL (0.0-0.7); Absolute Monocyte Count 0.72 10^3/uL (0.1-0.8); Absolute Neutrophil Count 5.01 10^3/uL (1.2-6.7); Basophils % 0.7; Eosinophils % 4.6; HCT 38.7 % (36.0-46.0); HGB 12.2 g/dL (11.2-15.7); Immature Grans % 0.4; Lymphocytes % 24.4; MCH 24.5 pg (27.0-33.0); MCHC 31.5 % (32.0-36.0); MCV 78 fL (80-95); Monocytes % 8.8; Neutrophils % 61.1; Platelet Count 433 10^3/uL (130-400); RBC 4.98 10^6/uL (3.93-5.22); RDW 17.7 % (11.7-14.6); RDW-SD 49.7 fL
[2022-02-12 10:42] LABS: Calculated LDL 89 mg/dL (<100); Cholesterol 146 mg/dL (<200); Ferritin 16 ng/mL (8-252); Folate 19.5 ng/mL (8.6-20.0); HDL Cholesterol 38 mg/dL (40-60); Triglyceride 98 mg/dL (<150); Vitamin B12 775 pg/mL (193-986)
[2022-02-12 10:59] LABS: Iron 37 ug/dL (50-170); Total Iron Binding Capacity 470 ug/dL (250-450); Transferrin Sat 8 % (15-50)
[2022-02-12 11:22] LABS: Vitamin D 25 Total 6.5 ng/mL (30-100)
[2022-02-14 16:29] LABS: Thiamine (Vitamin B1), WB 120 nmol/L (70-180)
== END 2022-02-12 04:11 | disposition home or self-care (01) ==
LOC: LBO 04:10
PROVIDERS: PCP Nurse Practitioner Adult Health; Visit Provider Family Medicine
DX: E66.01 Morbid (severe) obesity due to excess calories (principal); R79.9 Abnormal finding of blood chemistry, unspecified; E11.65 Type 2 diabetes mellitus with hyperglycemia; Z68.45 Body mass index [BMI] 70 or greater, adult
CPT/HCPCS: 36415; 80061; 82306; 82607; 82728; 82746; 83540; 83550; 84425; 85025

== ENCOUNTER 2022-02-16 04:50 | Outpatient (CLI) | payer MEDICARE, MEDICAID, SELFPAY ==
--- NOTE | 2022-02-16 11:00 | NS.NUTBLAN_ITS ---
Zenia returns for nutritional counseling in preparation for bariatric surgery at [facility]. 5'4 420.6 lbs Down 14 lbs since initially visit. Diet Recall: B: cereal, Lunch: chicken and rice, Dinner chicken and potato Exercise: walks daily 20-30 minutes Labs: 02/12/22 Chol: 146, LDL: 89, HDL: 38, Tri- very good lipid profile Vitamin D: 6.5 Very Low - Zenia reports taking her Vitamin D DM meds: 19 units lantus AM and PM, upto 35 units novolog with meals during day. Unable to renew script for ozempic as back ordered, taking rybelsus and followed by [facility] endocrinology. CGM data indicates average glucose around 179 mg/dl in last 2 weeks. Trends indicate much improvement in glycemic management since increase in lantus. Zenia is frustrated that she has gained 6 lbs since last month despite having kept off 14 lbs in last 3 months. We reviewed some meals that may be contributing to weight gain. Going forward recommend no longer eat rice, noodles or potato and to substitute beans for the starch in the meal. Encouraged her ot follow all meal /snack ideas and strategies from [facility] weight clinic. Recommend follow up with PCP re: Vitamin D levels as can contribute to further depression and fatigue if not repleted. Follow up scheduled for 03/23/22 1300.
== END 2022-02-16 04:51 | disposition home or self-care (01) ==
LOC: DS 04:50
PROVIDERS: PCP Nurse Practitioner Adult Health; Visit Provider Dietitian, Registered
DX: E66.01 Morbid (severe) obesity due to excess calories (principal); E11.9 Type 2 diabetes mellitus without complications; Z79.4 Long term (current) use of insulin; Z71.3 Dietary counseling and surveillance
CPT/HCPCS: 97803

== ENCOUNTER → 2022-02-27 09:14 | Outpatient (BNVA) | payer MEDICARE, MEDICAID, SELFPAY | PROVIDERS: PCP Nurse Practitioner Adult Health; Visit Provider Internal Medicine Cardiovascular Disease | DX: I50.33 Acute on chronic diastolic (congestive) heart failure (principal); G47.33 Obstructive sleep apnea (adult) (pediatric); E66.01 Morbid (severe) obesity due to excess calories | CPT/HCPCS: 99213 ==

== ENCOUNTER 2022-03-30 17:33 | Outpatient (REF) | payer MEDICARE, MEDICAID, SELFPAY ==
[2022-03-30 19:53] LABS: Bacteria Many HPF (Negative); C & S Indicated? C&S Done As Ordered; Casts Negative LPF (Negative); Crystals Negative HPF (Negative); Epithelial Cells Few HPF (Negative); Mucus Negative (Negative); WBC >50 HPF (0-5)
== END 2022-03-30 17:34 | disposition home or self-care (01) ==
LOC: LBN 17:33
PROVIDERS: PCP Nurse Practitioner Adult Health; Visit Provider Nurse Practitioner Family
DX: R13.10 Dysphagia, unspecified (principal); E11.9 Type 2 diabetes mellitus without complications
CPT/HCPCS: 87077; 81015; 87086; 87186

== ENCOUNTER 2022-04-30 18:25 | Emergency (ER) | payer MEDICARE, MEDICAID, SELFPAY ==
[2022-04-30 18:19] VITALS: BP 154/84; PULSE 133; TEMP 36.4; O2SAT 100
--- NOTE | 2022-04-30 19:20 | W.ED.GENAD ---
Discharge Plan Disposition Patient Disposition: Home Condition: Stable Discharge Details Clinical Impression: Constipation, Back pain, Abdominal pain Primary Care Provider: Lia Pearson ED Provider: Fernando Fang Home Meds and New Rx's Prescriptions: Continued rosuvastatin [Crestor] 40 mg tablet 40 mg PO DAILY ferrous gluconate 324 mg (37.5 mg iron) tablet 324 mg PO BID Qty: 180 1RF aripiprazole [Abilify] 5 mg tablet 15 mg PO QAM losartan 25 mg tablet 25 mg PO DAILY Qty: 90 3RF metoprolol succinate 50 mg tablet extended release 24 hr 50 mg PO DAILY Qty: 90 3RF (DME) pen needle, diabetic [Pen Needle] 32 gauge x needle See Rx Instructions .ROUTE .MEDSUPPLY Qty: 50 Rx Instructions: bid to administer insulin bid E11.9 levothyroxine 200 mcg tablet 200 mcg PO DAILY (DME) lancets [OneTouch UltraSoft Lancets] Misc See Rx Instructions .ROUTE .MEDSUPPLY Qty: 100 Rx Instructions: test ac and hs prn E11.9 to maintain AIC <7 (DME) OneTouch Verio test strips Strip See Rx Instructions .ROUTE .MEDSUPPLY Qty: 10 Rx Instructions: to test blood sugars ac and hs to maintain AIC <7, E11.9 gabapentin 300 mg capsule 300 mg PO TID glucose [Dex4 Glucose] 4 gram tablet,chewable 4 g PO Q10MIN PRN (Reason: hypoglycemia) Qty: 100 3RF Rx Instructions: until symptoms of low blood sugar are controlled (DME) FreeStyle Toshia 2 [place] Misc See Rx Instructions .Route Rx Instructions: swipe 4-5 times daily per note dated 11/12/21 [facility] cc norethindrone acetate 5 mg tablet 5 mg PO DAILY Rx Instructions: per note dated 11/26/21 [facility] (DME) FreeStyle Toshia 2 [place] Misc See Rx Instructions .Route Rx Instructions: Swipe 4-5 x's daily per note dated 12/31/21 [facility] [place] lispro [Humalog KwikPen Insulin] 100 unit/mL insulin pen 45 unit subcut TID metformin 500 mg tablet 1,000 mg PO BID ziprasidone HCl [Geodon] 20 mg capsule 60 mg PO BID Ozempic 0.25 mg or 0.5 mg(2 mg/1.5 mL) pen injector 2 mg subcut QWEEK Rx Instructions: 12/23/21- pt reports [facility] Endocrinology increased dose to 1mg q week. 02/06/22 Endo [facility] [place] per pt increased to 2 mg weekly. sally Lanjohn Solostar U-100 Insulin 100 unit/mL (3 mL) insulin pen See Rx Instructions subcut BID Rx Instructions: 02/06/22 dose change per pt 17U am, 18U pm. sally prazosin [Minipress] 5 mg Capsule 5 mg PO DAILY furosemide 40 mg tablet 40 mg PO QAM No Action polyethylene glycol 3350 [Miralax] 17 gram/dose powder 17 g PO BID PRN (Reason: constipation) Qty: 510 1RF Rx Instructions: Constipation--please use [place] cover 05/04/22 quetiapine 400 mg tablet 400 mg PO DAILY senna 8.6 mg capsule 8.6 mg PO DAILY Discharge Instructions Instructions: Polyethylene Glycol 3350 (By mouth), Constipation (ED), Abdominal Pain (ED), Back Pain (ED) Additional Instructions: Use polyethylene glycol tonight. If symptoms persist tomorrow, use magnesium citrate as prescribed. Continue docusate as prescribed. Followup with your doctor. Call tomorrow. Stay well hydrated. Monitor your glucose closely. Return to the ER for worsening or new concerning symptoms. Return at any time for additional diagnostics including CT as recommended. Referrals: Lia Pearson NP [Primary Care Provider] - Discharge Data Discharge Date/Time-TO BE ENTERED AT DEPARTURE: 04/30/22 20:02 Medical Decision Making 32yo female with history of constipation in the past here with constipation over the past two weeks with associated abdominal and back discomfort. Abdominal exam relatively benign although limited secondary to body habitus. Consider bowel obstruction - patient provided informed refusl of CT and additional diagnostics and requests treatment of constipation only. Patient refusing enema. Pharmacies currently closed. Will give dose of polyethylene glycol to take at home. Will prescribed magnesium citrate and docusate. I have recommended outpatient workup if constipation persists and tht she return immediately for any worsening or new concerning symptoms or if she decides to pursue recommended CT. HPI General Mode of arrival: ambulatory. Date/Time Provider Initiated Documentation: 04/30/22 19:15. Limitations to Documentation: no limitations. Information obtained by: patient. HPI Narrative: 32yo female with history of constipation in the past here with complaint of constipation over the past two weeks. Patient notes small bowel movement only over the past couple weeks. She has associated abdominal and back discomfort over the past 2 days. Related Data Home Medications Medication Instructions Recorded Confirmed prazosin 5 mg capsule (Minipress) 5 mg PO DAILY 06/16/21 05/04/22 blood sugar diagnostic (OneTouch #10 ea 06/20/21 05/04/22 Verio test strips) gabapentin 300 mg capsule 300 mg PO TID 06/20/21 05/04/22 lancets (OneTouch UltraSoft #100 ea 06/20/21 05/04/22 Lancets) levothyroxine 200 mcg tablet 200 mcg PO DAILY 06/20/21 05/04/22 pen needle, diabetic 32 gauge x #50 ea 06/20/21 05/04/22 (Pen Needle) losartan 25 mg tablet 25 mg PO DAILY #90 tabs 08/28/21 05/04/22 rosuvastatin 40 mg tablet (Crestor) 40 mg PO DAILY 11/03/21 05/04/22 glucose 4 gram chewable tablet 4 g PO Q10MIN PRN hypoglycemia 11/19/21 05/04/22 (Dex4 Glucose) #100 tabs ferrous gluconate 324 mg (37.5 mg 324 mg PO BID #180 tabs 11/21/21 05/04/22 iron) tablet flash glucose scanning reader 11/24/21 05/04/22 (FreeStyle Toshia 2 [place]) metoprolol succinate 50 mg 50 mg PO DAILY #90 tabs 11/25/21 05/04/22 tablet,extended release 24 hr norethindrone acetate 5 mg tablet 5 mg PO DAILY 11/27/21 05/04/22 flash glucose scanning reader 01/09/22 05/04/22 (FreeStyle Toshia 2 [place]) insulin lispro 100 unit/mL 45 unit subcut TID 02/09/22 05/04/22 subcutaneous pen (Humalog KwikPen (U-100) Insulin) aripiprazole 5 mg tablet (Abilify) 15 mg PO QAM 02/16/22 05/04/22 metformin 500 mg tablet 1,000 mg PO BID 02/16/22 05/04/22 semaglutide 0.25 mg or 0.5 mg (2 2 mg subcut QWEEK 02/16/22 05/04/22 mg/1.5 mL) subcutaneous pen injector (Ozempic) ziprasidone HCl 20 mg capsule 60 mg PO BID 02/16/22 05/04/22 (Geodon) insulin glargine 100 unit/mL (3 See Rx Instructions subcut BID 03/09/22 05/04/22 mL) subcutaneous pen (Lantus Solostar U-100 Insulin) furosemide 40 mg tablet 40 mg PO QAM 04/30/22 05/04/22 polyethylene glycol 3350 17 17 g PO BID PRN constipation #510 05/04/22 05/04/22 gram/dose oral powder (Miralax) grams quetiapine 400 mg tablet 400 mg PO DAILY 05/04/22 05/04/22 sennosides 8.6 mg capsule (senna) 8.6 mg PO DAILY 05/06/22 Previous Rx's Medication Instructions Recorded losartan 25 mg tablet 25 mg PO DAILY #90 tabs 08/28/21 glucose 4 gram chewable tablet 4 g PO Q10MIN PRN hypoglycemia 11/19/21 (Dex4 Glucose) #100 tabs ferrous gluconate 324 mg (37.5 mg 324 mg PO BID #180 tabs 11/21/21 iron) tablet metoprolol succinate 50 mg 50 mg PO DAILY #90 tabs 11/25/21 tablet,extended release 24 hr polyethylene glycol 3350 17 17 g PO BID PRN constipation #510 05/04/22 gram/dose oral powder (Miralax) grams Allergies Allergy/AdvReac Type Severity Reaction Status Date / Time mushrooms Allergy Unknown rash Uncoded 05/04/22 09:45 General Stated Complaint: Nk/Back Pain ALEKSANDR: 3 Review of Systems All systems reviewed & are unremarkable except as noted in HPI and below Constitutional Constitutional: Denies fever(s) Gastrointestinal Gastrointestinal: Reports as per HPI, Denies melena and Denies hematochezia PFSH All Active Problems (Updated 05/04/22 @ 10:52 by Lia Pearson NP) Constipation (Acute) Back pain (Acute) Abdominal pain (Acute) Vitamin D deficiency (Acute ~02/2022) Onychauxis (Acute) [facility] Podiatry Major depressive disorder, single episode, mild (Acute 05/11/21) Severe nonproliferative diabetic retinopathy (Chronic ~10/2021) Coagulopathy (Acute ~09/2021) ?VWD; [facility] Heme consult pending Iron deficiency anemia due to chronic blood loss (Acute) Dependent for transportation (Chronic) RCT Menorrhagia with irregular cycle (Acute) Heart failure with preserved ejection fraction (Acute) T2DM (type 2 diabetes mellitus) (Chronic ~2010) [place]; [facility] Endo Goal: <7% Morbid obesity (Chronic) BMI >60, Class 3 severe obesity Obstructive sleep apnea (adult) (pediatric) (Chronic ~2007) C-PAP; [facility] Sleep Medicine Mixed hyperlipidemia (Chronic) PTSD (post-traumatic stress disorder) (Chronic) [facility] Schizoaffective disorder, bipolar type (Chronic) [facility] Hypothyroid (Chronic) [facility] Endo Medical History Abnormal CAT scan abscess at right gluteal area/coccyx, early osteomyelitis? Cardiomegaly Constipation by delayed colonic transit Diabetic macular edema (~10/2021) Dissociative identity disorder (~2014) Hypoglycemia associated with diabetes (~10/2021) Papilledema (~11/2021) Plantar fasciitis SARS-CoV-2 positive (12/25/21) Surgical History No significant past surgical history Family History Father Diabetes Alcohol use disorder Mother Seizure disorder Other Factor VIII (functional) deficiency Fibroids Social History Smoking/Tobacco Use Status: Never Second Hand Exposure: No Smoking risk assessment performed?: Yes Alcohol Intake: former Drug use: Current Sobriety Substance use type: marijuana Adopted: Yes Caregiver/Support person: No Foster care: Yes Household members: none Housing: apartment Number of Children: 0 Communication Needs: None Education Level: college Details: associate's degree Do you need help understanding health information?: Never current occupation: [employer] Pets and animals: No Sexually active: No Do you think of yourself as: ??asexual Current gender identity: female What is your relationship status?: never How often do you talk on the phone with friends or family?: three or more times per week How often do you get together with friends or relatives?: never Do you belong to any clubs or organized social groups?: no Panel score (0-1 are the most socially isolated patients): 1 What type of physical activity do you participate in: walking Duration: < 15 minutes/day Frequency: 1-2 times per week Vane/Latter Day: None Special vane needs: No Seatbelt use: sometimes Helmet use: No Drive intox or ride w/intox 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 Do you feel safe at home: Yes Do you feel safe in your relationship?: Yes Female Reproductive History Menstrual Age of Menarche: 13 Duration of menses: >10 days control method: none History History 0 Para Hx # Term Pregnancies Multiple births Hx # Pregnancies Ectopic pregnancies AB induced Hx Number of Living Children AB spontaneous Exam Const General: cooperative and no acute distress Nutritional Appearance: obese HENMT Mouth: moist mucous membranes Eyes Conjunctivae: normal conjunctivae Sclera: normal sclerae Resp Auscultation: clear to auscultation bilaterally, no rales, no rhonchi and no wheezes Cardio Rate: regular rate and not tachycardic Rhythm: regular rhythm GI Palpation: soft, not firm, no guarding, no masses, not rigid and nontender Skin General skin exam: no rashes or lesions noted Neuro General: patient alert, patient awake and tone normal Course Vital Signs Vital signs: Vital Signs Temperature 36.4 C 04/30/22 18:19 Pulse 133 H 04/30/22 18:19 Blood Pressure 154/84 H 04/30/22 18:19 Pulse Oximetry 100 04/30/22 18:19 Temperature 36.4 C 04/30/22 18:19 Temperature Source Skin 04/30/22 18:19 Pulse 133 H 04/30/22 18:19 Respiratory Effort 04/30/22 18:32 Blood Pressure 154/84 H 04/30/22 18:19 Blood Pressure Position Sitting 04/30/22 18:19 Pulse Oximetry 100 04/30/22 18:19 Oxygen Delivery Method Room Air 04/30/22 18:19 Oxygen Flow Rate 0 04/30/22 18:19 Pain Level 7 04/30/22 18:19 Comment 04/30/22 18:19
[2022-04-30 19:50] VITALS: BP 150/82; PULSE 114; RESP 20; TEMP 37; O2SAT 100
== END 2022-04-30 20:02 | disposition home or self-care (01) ==
PROVIDERS: Emergency Provider Student in an Organized Health Care Education/Training Program; PCP Nurse Practitioner Adult Health
DX: K59.00 Constipation, unspecified (principal); M54.50 Low back pain, unspecified; R10.9 Unspecified abdominal pain; E11.9 Type 2 diabetes mellitus without complications
CPT/HCPCS: 36416; 82962; 99283

== ENCOUNTER 2022-07-07 02:05 | Outpatient (CLI) | payer MEDICARE, MEDICAID, SELFPAY ==
[2022-07-07 09:29] LABS: Abs Immature Grans 0.06 10^3/uL (0.0-0.06); Absolute Basophil Count 0.03 10^3/uL (0.0-0.2); Absolute Eosinophil Count 0.33 10^3/uL (0.0-0.7); Absolute Lymphocyte Count 2.04 10^3/uL (1.2-3.4); Absolute Monocyte Count 0.69 10^3/uL (0.1-0.8); Absolute Neutrophil Count 5.15 10^3/uL (1.2-6.7); Basophils % 0.4; HCT 39.2 % (36.0-46.0); HGB 12.3 g/dL (11.2-15.7); Immature Grans % 0.7; Lymphocytes % 24.6; MCH 27.2 pg (27.0-33.0); MCHC 31.4 % (32.0-36.0); MCV 87 fL (80-95); MPV 10.7 fL (8.0-11.0); Monocytes % 8.3; Platelet Count 410 10^3/uL (130-400); RBC 4.52 10^6/uL (3.93-5.22); RDW 14.6 % (11.7-14.6); RDW-SD 46.4 fL
[2022-07-07 09:58] LABS: ALT 38 U/L (14-59); AST 21 U/L (15-37); Albumin 3.6 g/dL (3.4-5.0); Alkaline Phosphatase 88 U/L (46-116); Anion Gap 10.3 mmol/L (3-11); BUN 15 mg/dL (7-18); Bilirubin, Total 0.3 mg/dL (0.2-1.0); CO2 25.7 mmol/L (21.0-32.0); CREATININE 1.2 mg/dL (0.55-1.02); Calcium 9.3 mg/dL (8.5-10.1); Calculated LDL 92 mg/dL (<100); Chloride 105 mmol/L (98-107); Cholesterol 162 mg/dL (<200); Estimated GFR 62.45 (mL/min/1.73m2); Glucose 163 mg/dL (74-106); HDL Cholesterol 44 mg/dL (40-60); Potassium 4.4 mmol/L (3.5-5.1); Sodium 141 mmol/L (136-145); Total Protein 8.4 g/dL (6.4-8.2); Triglyceride 132 mg/dL (<150)
[2022-07-07 10:03] LABS: COMMENT (LAB VIEW ONLY) 105.47 mg/dL
[2022-07-07 10:05] LABS: Microalb ug/mg Crea 246.6 ug/mg Cr
[2022-07-07 10:11] LABS: Vitamin D 25 Total 14.2 ng/mL (30-100)
[2022-07-07 10:17] LABS: NT-proBNP 30 pg/mL (<300)
== END 2022-07-07 02:06 | disposition home or self-care (01) ==
LOC: LBO 02:06
PROVIDERS: PCP Nurse Practitioner Adult Health; Visit Provider Nurse Practitioner Adult Health
DX: Z79.4 Long term (current) use of insulin; E11.37X9 Type 2 diabetes mellitus with diabetic macular edema, resolved following treatment, unspecified eye; E55.9 Vitamin D deficiency, unspecified; E66.01 Morbid (severe) obesity due to excess calories; G47.33 Obstructive sleep apnea (adult) (pediatric); Z68.44 Body mass index [BMI] 60.0-69.9, adult; I50.33 Acute on chronic diastolic (congestive) heart failure; R06.02 Shortness of breath; R63.5 Abnormal weight gain
CPT/HCPCS: 36415; 80053; 80061; 82306; 82043; 82570; 83880; 84443; 85025

== ENCOUNTER 2022-08-21 00:14 | Outpatient (CLI) | payer MEDICARE, MEDICAID, SELFPAY ==
--- NOTE | 2022-08-21 10:26 | DI.US_ITS ---
APPROVED REPORT EXAM: Comprehensive 2D, Doppler, and color-flow Echocardiogram Patient Location: Out-Patient Data Processing Manager: Maru Rojas RDCS ([place]) Other Information Study Quality: Fair. Technically limited study due to body habitus, exam done supine. Conclusion Concentric left ventricular hypertrophy. Left ventricle is mildly dilated. Estimated ejection fract ion is 50 to 55%. There are no segmental wall motion abnormalities Normal right ventricular size and systolic function Both atria are normal in size There is no structural or hemodynamically significant valvular disease Wall motion Left Ventricle Ventricle is mildly dilated Left ventricular systolic function is borderline. Mild concentric left ve ntricular hypertrophy. There are no segmental wall motion abnormalities There is no ventricular septa l defect visualized. LVEF is 50-55%. Right Ventricle The right ventricle is normal size. The right ventricular systolic function is normal. Atria The left atrium size is normal. The right atrium size is normal. The interatrial septum is intact wit h no evidence for an atrial septal defect. Aortic Valve The aortic valve is normal in structure. Number of aortic valve leaflets could not be assessed. There is no aortic valvular stenosis. No aortic regurgitation is present. Mitral Valve The mitral valve is normal in structure. No evidence of mitral valve stenosis. Trace mitral regurgita tion. Tricuspid Valve The tricuspid valve is normal in structure. There is no tricuspid valve stenosis. Trace tricuspid reg urgitation. Pulmonic Valve The pulmonary valve is normal in structure. There is no pulmonic valvular stenosis. There is no pulmo mahesh valvular regurgitation. Great Vessels The aortic root is normal in size. Ascending aorta is not well visualized. Aortic arch is not well vi sualized. The IVC was not visualized. Technically limited subcostal imaging Pericardium There is no pericardial effusion. 2D Dimensions IVSD d PLAX 1.12 cm F: 0.6-1.0 LV Vol A2C d MOD 129.9 mL LVPW d PLAX 1.15 cm F: 0.6 - 1.0 LV Vol A4C d MOD 144.6 mL LVID d PLAX 5.13 cm F: 3.8 - 5.2 LA vol/ BSA A2C s A-L 9.0 mL/m2 LVDs 3.70 cm F: 2.2 - 3.5 LA vol/ BSA A4C s A-L 9.2 mL/m2 Ao Root d 2.85 cm F: 2.7 - 3.3 LA Vol/ BSA Biplane s A-L 9.2 mL/m2 LV EF Teichholz 52.3 % LA Area A4C s MOD 11.38 cm2 LVEF (Torres's) 48.96 % F: 54 - 74 LA Area A2C s MOD 11.18 cm2 LV Volume 94.43 mL F: 46 - 106 LV EF A4C MOD 50.4 % LV Volume Index 35.10 mL/m2 F: 29 - 61 LV EF A2C MOD 49.8 % LV Vol Biplane MOD 137.7 mL LV EF Biplane MOD 49.0 % FS 26.95 % SV 67.41 mL SV Index 25.06 mL/m2 M-Mode TAPSE 1.98 cm (M/F) >1.7 LV Diastology MV E' medial 0.089 (>0.07 m/s) E/A Ratio 1.1 LV E/e MED 8.70 (<14) MV E Vmax 0.78 (0.4-1.3 m/s) MV E' lateral 0.071 (>0.1 m/s) MV A Vmax 0.70 (0.4-1.3 m/s) LV E/e LAT 10.95 (<14) MV E/A Ratio 1.09 MV E/E' medial 8.71 MV E/E' lateral 10.97 Aortic Valve LVOT Area 2.93 cm2 AoV Area Vmax 2.28 cm2 LVOT Vmax 1.20 m/s AoV Area/ BSA (Vmax) 0.85 cm2/m2 LVOT Mean Gerry. 0.75 m/s CHRISTINA Mean Gerry. 1.92 cm2 LVOT Peak Grad 5.7 mmHg CHRISTINA Mean Gerry. Index 0.71 cm2/m2 LVOT Mean Grad 2.7 mmHg LVOT VTI 0.217 m LVOT Diam s 1.90 cm AoV Vmax 1.54 m/s Velocity Ratio 0.78 AoV Mean Gerry. 1.14 m/s AoV Peak Grad 9.5 mmHg LVOT SV 63.54 mL AoV Mean Grad 5.7 mmHg AoV VTI 0.268 m AoV Area VTI 2.37 cm2 AoV Area/ BSA (VTI) 0.88 cm/m2 Mitral Valve MV DT 208 (160-240 msec) MV PHT 60 msec MV Area PHT 3.64 cm2 MV VTI 0.205 m MV Area VTI 3.10 (4.0-6.0 cm2) Pulmonary Valve PV Vmax 1.15 (0.5-1.5 m/s) RVOT Peak Gr. 1.90 mmHg PV Peak Grad 5.3 mmHg RVOT Mean Gr. 0.95 mmHg PV Mean Grad 2.6 mmHg RVOT VTI 0.110 m PV VTI 0.186 m RVOT Vmax 0.69 m/s Tricuspid Valve TR Peak Grad 16.0 mmHg TR Vmax 2.00 m/s
== END 2022-08-21 00:34 ==
LOC: DI 00:15
PROVIDERS: PCP Nurse Practitioner Adult Health; Visit Provider Internal Medicine Cardiovascular Disease
DX: I50.33 Acute on chronic diastolic (congestive) heart failure (principal)
CPT/HCPCS: 93306

== ENCOUNTER → 2022-08-28 09:15 | Outpatient (BNVA) | payer MEDICARE, MEDICAID, SELFPAY | PROVIDERS: PCP Nurse Practitioner Adult Health; Visit Provider Internal Medicine Cardiovascular Disease | DX: I50.33 Acute on chronic diastolic (congestive) heart failure (principal); E66.01 Morbid (severe) obesity due to excess calories | CPT/HCPCS: 99213 ==

== ENCOUNTER 2022-10-02 12:20 | Outpatient (REF) | payer MEDICARE, MEDICAID, SELFPAY ==
[2022-10-02 15:48] LABS: Anion Gap 8.8 mmol/L (3-11); BUN 13 mg/dL (7-18); CO2 27.2 mmol/L (21.0-32.0); Calcium 9.6 mg/dL (8.5-10.1); Chloride 104 mmol/L (98-107); Estimated GFR 77.72 (mL/min/1.73m2); Glucose 103 mg/dL (74-106); Potassium 4.3 mmol/L (3.5-5.1); Sodium 140 mmol/L (136-145)
== END 2022-10-02 12:21 | disposition home or self-care (01) ==
LOC: LBN 12:20
PROVIDERS: PCP Nurse Practitioner Adult Health; Visit Provider Physician Assistant Medical
DX: E03.9 Hypothyroidism, unspecified (principal); E11.9 Type 2 diabetes mellitus without complications; M79.18 Myalgia, other site
CPT/HCPCS: 80048

== ENCOUNTER 2022-10-08 15:10 | Emergency (ER) | payer MEDICARE, MEDICAID, SELFPAY ==
[2022-10-08] VITALS (66 sets, daily range): BP systolic 92–136; BP diastolic 57–100; PULSE 90–120; RESP 0–30; TEMP 36.9; O2SAT 96–100
[2022-10-08 15:46] LABS: Abs Immature Grans 0.04 10^3/uL (0.0-0.06); Absolute Basophil Count 0.04 10^3/uL (0.0-0.2); Absolute Eosinophil Count 0.22 10^3/uL (0.0-0.7); Absolute Lymphocyte Count 3.56 10^3/uL (1.2-3.4); Absolute Neutrophil Count 5.12 10^3/uL (1.2-6.7); Basophils % 0.4; Eosinophils % 2.2; HCT 40.8 % (36.0-46.0); HGB 13.1 g/dL (11.2-15.7); Immature Grans % 0.4; Lymphocytes % 35.7; MCH 27.3 pg (27.0-33.0); MCHC 32.1 % (32.0-36.0); MCV 85 fL (80-95); MPV 10.8 fL (8.0-11.0); Neutrophils % 51.3; Platelet Count 406 10^3/uL (130-400); RDW 14.5 % (11.7-14.6); RDW-SD 44.8 fL; WBC 9.98 10^3/uL (4.4-10.8)
[2022-10-08 16:01] LABS: ALT 86 U/L (14-59); AST 31 U/L (15-37); Albumin 3.7 g/dL (3.4-5.0); Alkaline Phosphatase 80 U/L (46-116); Anion Gap 10.5 mmol/L (3-11); BUN 10 mg/dL (7-18); Bilirubin, Total 0.4 mg/dL (0.2-1.0); CO2 25.5 mmol/L (21.0-32.0); CREATININE 1.2 mg/dL (0.55-1.02); Calcium 9.2 mg/dL (8.5-10.1); Chloride 104 mmol/L (98-107); Estimated GFR 62.45 (mL/min/1.73m2); Potassium 3.3 mmol/L (3.5-5.1); Sodium 140 mmol/L (136-145); Total Protein 8.6 g/dL (6.4-8.2)
[2022-10-08 16:04] LABS: Glucose 45 mg/dL (74-106)
[2022-10-08 16:51] LABS: Hemoglobin A1C 6.8 % (<5.7)
[2022-10-08] MEDS: DEXTROSE 10%-WATER 500 ML 50 ML IV (18:43)
--- NOTE | 2022-10-08 20:56 | ED.GENADUL_ITS ---
Discharge Plan Disposition Patient Disposition: Home Condition: Stable Discharge Details Clinical Impression: Hypoglycemia Primary Care Provider: Lia Pearson ED Provider: Villa Taylor Home Meds and New Rx's Prescriptions: Continued rosuvastatin [Crestor] 40 mg tablet 40 mg PO DAILY doxepin 6 mg tablet 6 mg PO QHS PRN (Reason: sleep) Qty: 90 0RF (DME) lancets [OneTouch UltraSoft Lancets] Misc See Rx Instructions .ROUTE .MEDSUPPLY Qty: 400 3RF Rx Instructions: test ac and hs prn E11.9 to maintain AIC <7 OneTouch Verio (DME) OneTouch Verio test strips Strip See Rx Instructions .ROUTE .MEDSUPPLY Qty: 400 3RF Rx Instructions: to test blood sugars ac and hs to maintain AIC <7, E11.9 glucose [Dex4 Glucose] 4 gram tablet,chewable 4 g PO Q10MIN PRN (Reason: hypoglycemia) Qty: 100 3RF Rx Instructions: until symptoms of low blood sugar are controlled polyethylene glycol 3350 [Miralax] 17 gram/dose powder 17 g PO BID PRN (Reason: constipation) Qty: 510 1RF Rx Instructions: Constipation--please use [place] cover 05/04/22 aripiprazole [Abilify] 5 mg tablet 15 mg PO QAM cholecalciferol (vitamin D3) 50 mcg (2,000 unit) capsule 50 mcg PO DAILY Qty: 90 3RF Rx Instructions: Vitamin D Deficiency trazodone 300 mg tablet 300 mg PO QHS metoprolol succinate 100 mg tablet extended release 24 hr 100 mg PO HS Qty: 90 3RF Rx Instructions: Dose increase 07/08/2022 ziprasidone HCl [Geodon] 20 mg capsule 40 mg PO BID Rx Instructions: Tapering off. 08/19/22 20mg BID do that for two weeks. (DME) pen needle, diabetic [Pen Needle] 32 gauge x needle See Rx Instructions .ROUTE .MEDSUPPLY Qty: 50 Rx Instructions: bid to administer insulin bid E11.9 levothyroxine 200 mcg tablet 200 mcg PO DAILY gabapentin 300 mg capsule 300 mg PO TID (DME) FreeStyle Toshia 2 [place] Misc See Rx Instructions .Route Rx Instructions: swipe 4-5 times daily per note dated 11/12/21 [facility] [place] [place] cc (DME) FreeStyle Toshia 2 [place] [facility] [place] See Rx Instructions .Route Rx Instructions: Swipe 4-5 x's daily per note dated 12/31/21 [facility] senna 8.6 mg capsule 8.6 mg PO DAILY norethindrone acetate 5 mg tablet 5 mg PO DAILY Patient Comments: 05/19/22- pt reports taking 5 mg po BID Rx Instructions: per note dated 11/26/21 [facility] [place] [place] (DME) Depend Underwear For Women XL [facility] [place] See Rx Instructions .Route Qty: 60 12RF Rx Instructions: 1-2 per day prn (DME) incontinence pad, liner, disp Pad See Rx Instructions .Route Qty: 40 12RF Rx Instructions: 1-2 per day ferrous gluconate 324 mg (38 mg iron) tablet See Rx Instructions .ROUTE .COMPLEX Qty: 180 1RF Dose Instruction: TAKE ONE TABLET BY MOUTH TWICE A DAY Rx Instructions: TAKE ONE TABLET BY MOUTH TWICE A DAY insulin aspart U-100 [Novolog FlexPen U-100 Insulin] 100 unit/mL (3 mL) insulin pen 1 sliding scale dose subcut TID Hold Instructions: until discussed with social worker masters Rx Instructions: With meals. cholecalciferol (vitamin D3) 1,250 mcg (50,000 unit) capsule 1,250 mcg PO QWEEK Qty: 8 1RF Rx Instructions: Vitamin D deficiency losartan 25 mg tablet See Rx Instructions .ROUTE .COMPLEX Qty: 90 3RF Dose Instruction: TAKE ONE TABLET BY MOUTH EVERY DAY Rx Instructions: TAKE ONE TABLET BY MOUTH EVERY DAY furosemide 40 mg tablet See Rx Instructions .ROUTE .COMPLEX Qty: 90 0RF Dose Instruction: TAKE ONE TABLET BY MOUTH EVERY MORNING Rx Instructions: TAKE ONE TABLET BY MOUTH EVERY MORNING prazosin [Minipress] 5 mg Capsule 5 mg PO DAILY Held metformin 500 mg tablet 1,000 mg PO BID Hold Instructions: until discussed with social worker masters Ozempic 0.25 mg or 0.5 mg(2 mg/1.5 mL) pen injector 2 mg subcut QWEEK Hold Instructions: until discussed with social worker masters Rx Instructions: 12/23/21- pt reports [facility] Endocrinology increased dose to 1mg q week. 02/06/22 [place] [facility] [place] increased to 2 mg weekly. mk Lantus Solostar U-100 Insulin 100 unit/mL (3 mL) insulin pen See Rx Instructions subcut BID Hold Instructions: until discussed with social worker masters Rx Instructions: 02/06/22 dose change per pt 17U am, 18U pm. mk empagliflozin 10 mg tablet 10 mg PO DAILY Hold Instructions: until discussed with social worker masters Discharge Instructions Instructions: Hypoglycemia in a Person with Diabetes (ED) Additional Instructions: Hold all of your diabetic medications until you discuss with your social worker masters. Continue monitoring blood sugars closely. Can use aspart sliding scale coverage as previously directed if needed Referrals: Lia Pearson NP [Primary Care Provider] - Discharge Data Discharge Date/Time-TO BE ENTERED AT DEPARTURE: 10/09/22 00:28 Medical Decision Making <Lorena Diez NP - Last Filed: 10/10/22 15:28> Patient on multiple antidiabetic medications presents with general malaise and hyperglycemia. Glucose found to be 36 on arrival. She is given oral intake with no significant improvement in her blood sugar. She was given a sandwich which she tolerated. Blood sugar up to 80 but drops again to 50. She was given a second sandwich and repeat blood sugar after that is still 50. Denies accidental missed dosing or extra dosing of her diabetes medications. D10 initiated as blood sugar remains at 50 despite having to sandwiches and some of a regular dinner tray. Post D10 infusion her blood sugar is now 160. Infusion stopped and 1 hour after stopping blood sugar is now 80 again. D5-1/2 normal saline started at 125 an hour. 2 hours later, Repeat blood sugar 75 on continuous glucose monitor, confirmed fingerstick at 78. She was given at bedtime snack of joy crackers peanut butter milk. Plan to recheck blood sugar 1 hour and if she maintains she wishes to be discharged to home and while monitor blood sugars closely. She has been advised to hold all oral and injectable diabetic medication. Advised to monitor closely and use sliding scale coverage only. She should contact her social worker masters first thing in the morning for a follow-up appointment Medical Records Medical records reviewed: Yes I reviewed the patient's medical records. Lab Data Lab results reviewed: Yes I reviewed the patient's lab results. Lab results narrative: Laboratory Results - last 24 hr 10/08/22 10/08/22 10/08/22 15:33 15:33 15:33 WBC 9.98 RBC 4.80 Hgb 13.1 Hct 40.8 MCV 85 MCH 27.3 MCHC 32.1 RDW 14.5 Plt Count 406 H MPV 10.8 Immature Gran % 0.4 Neutrophils % 51.3 Lymphocytes % 35.7 Monocytes % 10.0 Eosinophils % 2.2 Basophils % 0.4 Nucleated RBC % 0.0 Absolute Neutrophils 5.12 Absolute Lymphocytes 3.56 H Absolute Monocytes 1.00 H Absolute Eosinophils 0.22 Absolute Basophils 0.04 Sodium 140 Potassium 3.3 L Chloride 104 Carbon Dioxide 25.5 Anion Gap 10.5 BUN 10 Creatinine 1.2 H Est GFR (CKD-EPI 2020) 62.45 Glucose 45 L* Hemoglobin A1c 6.8 H Calcium 9.2 Magnesium 2.0 Total Bilirubin 0.4 AST 31 ALT 86 H Alkaline Phosphatase 80 Total Protein 8.6 H Albumin 3.7 <Villa Taylor, DO - Last Filed: 10/09/22 00:56> Patient on multiple antidiabetic medications presents with general malaise and hyperglycemia. Glucose found to be 36 on arrival. She is given oral intake with no significant improvement in her blood sugar. She was given a sandwich which she tolerated. Blood sugar up to 80 but drops again to 50. She was given a second sandwich and repeat blood sugar after that is still 50. Denies accidental missed dosing or extra dosing of her diabetes medications. D10 initiated as blood sugar remains at 50 despite having to sandwiches and some of a regular dinner tray. Post D10 infusion her blood sugar is now 160. Infusion stopped and 1 hour after stopping blood sugar is now 80 again. D5-1/2 normal saline started at 125 an hour. 2 hours later, Repeat blood sugar 75 on continuous glucose monitor, confirmed fingerstick at 78. She was given at bedtime snack of joy crackers peanut butter milk. Plan to recheck blood sugar 1 hour and if she maintains she wishes to be discharged to home and while monitor blood sugars closely. She has been advised to hold all oral and injectable diabetic medication. Advised to monitor closely and use sliding scale coverage only. She should contact her social worker masters first thing in the morning for a follow-up appointment Dr. Taylor's documentation: Patient was signed out to me by Juan Diez. Please refer to HPI, physical exam, assessment and plan. Pending recheck of her fingerstick glucose. On recheck she remains in the 80s to 90s. Patient is feeling well and she is asking to go home. I do feel that this is reasonable at this time as she has remained in a good state for the last few hours with no signs of hypo-glycemia. Will recommend avoidance of her medications orally, and just stick with subcu insulin as needed based on her blood sugars. Patient agrees with plan. Will use discharge instructions written by Lorena. Discussed red flags for which to return. I have extensively reviewed the treatment plan and discharge instructions with the patient. I have addressed all patient concerns at this time. The patient was made aware of what symptoms to monitor for that would warrant a return to the emergency department. Discussed the plan with the patient, they demonstrate verbal understanding and agreement with our assessment and plan at this time. The documentation in this chart was dictated using [employer] dictation software. Please excuse any dictation errors. HPI <Lorena Diez NP - Last Filed: 10/10/22 15:28> General Mode of arrival: ambulatory . Date/Time Provider Initiated Documentation: 10/08/22 15:24 . Limitations to Documentation: no limitations . Information obtained by: patient . HPI Narrative: This is a morbidly obese female type 2 diabetes on multiple diabetes medications including oral and injectable and insulin who has been experiencing fatigue malaise not feeling well she states for several months. She has been seen by urgent care found to be 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 states she has had her Lantus dose cut in half she is takes it in the morning 9 in the evening she states she has not been needing any as needed meal coverage. She has had low-grade fever but no obvious source of infection. She presents here as she just has not been feeling well on arrival her blood sugar was noted to be in the 30s and 40s she is given crackers and peanut butter and sugary drinks. Related Data Home Medications Medication Instructions Recorded Confirmed prazosin 5 mg capsule (Minipress) 5 mg PO DAILY 06/16/21 10/08/22 gabapentin 300 mg capsule 300 mg PO TID 06/20/21 10/08/22 levothyroxine 200 mcg tablet 200 mcg PO DAILY 06/20/21 10/08/22 pen needle, diabetic 32 gauge x #50 ea 06/20/21 10/08/2232 (Pen Needle) rosuvastatin 40 mg tablet (Crestor) 40 mg PO DAILY 11/03/21 10/08/22 flash glucose scanning reader 11/24/21 10/08/22 (FreeStyle Toshia 2 [place]) flash glucose scanning reader 01/09/22 10/08/22 (FreeStyle Toshia 2 [place]) aripiprazole 5 mg tablet (Abilify) 15 mg PO QAM 02/16/22 10/08/22 metformin 500 mg tablet 1,000 mg PO BID 02/16/22 10/08/22 semaglutide 0.25 mg or 0.5 mg (2 2 mg subcut QWEEK 02/16/22 10/08/22 mg/1.5 mL) subcutaneous pen injector (Ozempic) insulin glargine 100 unit/mL (3 See Rx Instructions subcut BID 03/09/22 10/08/22 mL) subcutaneous pen (Lantus Solostar U-100 Insulin) polyethylene glycol 3350 17 17 g PO BID PRN constipation #510 05/04/22 10/08/22 gram/dose oral powder (Miralax) grams sennosides 8.6 mg capsule (senna) 8.6 mg PO DAILY 05/06/22 10/08/22 norethindrone acetate 5 mg tablet 5 mg PO DAILY 05/19/22 10/08/22 diaper,brief,adult,disposable #60 ea 06/03/22 10/08/22 (Depend Underwear For Women XL) incontinence pad, liner, disp #40 ea 06/03/22 10/08/22 cholecalciferol (vitamin D3) 50 50 mcg PO DAILY #90 caps 06/17/22 10/08/22 mcg (2,000 unit) capsule ferrous gluconate 324 mg (38 mg See Rx Instructions .Route 06/17/22 10/08/22 iron) tablet .COMPLEX #180 tabs empagliflozin 10 mg tablet 10 mg PO DAILY 06/25/22 10/08/22 insulin aspart U-100 100 unit/mL 1 sliding scale dose subcut TID 06/25/22 10/08/22 (3 mL) subcutaneous pen (Novolog FlexPen U-100 Insulin aspart) trazodone 300 mg tablet 300 mg PO QHS 07/06/22 10/08/22 cholecalciferol (vitamin D3) 1,250 1,250 mcg PO QWEEK #8 caps 07/07/22 10/08/22 mcg (50,000 unit) capsule metoprolol succinate 100 mg 100 mg PO HS #90 tabs 07/08/22 10/08/22 tablet,extended release 24 hr losartan 25 mg tablet See Rx Instructions .Route 08/04/22 10/08/22 .COMPLEX #90 tabs ziprasidone HCl 20 mg capsule 40 mg PO BID 08/05/22 10/08/22 (Geodon) blood sugar diagnostic (OneTouch #400 ea 08/17/22 10/08/22 Verio test strips) doxepin 6 mg tablet 6 mg PO QHS PRN sleep #90 tabs 08/17/22 10/08/22 glucose 4 gram chewable tablet 4 g PO Q10MIN PRN hypoglycemia 08/17/22 10/08/22 (Dex4 Glucose) #100 tabs lancets (OneTouch UltraSoft #400 ea 08/17/22 10/08/22 Lancets) furosemide 40 mg tablet See Rx Instructions .Route 08/26/22 10/08/22 .COMPLEX #90 tabs Previous Rx's Medication Instructions Recorded polyethylene glycol 3350 17 17 g PO BID PRN constipation #510 05/04/22 gram/dose oral powder (Miralax) grams diaper,brief,adult,disposable #60 ea 06/03/22 (Depend Underwear For Women XL) incontinence pad, liner, disp #40 ea 06/03/22 cholecalciferol (vitamin D3) 50 50 mcg PO DAILY #90 caps 06/17/22 mcg (2,000 unit) capsule ferrous gluconate 324 mg (38 mg See Rx Instructions .Route 06/17/22 iron) tablet .COMPLEX #180 tabs cholecalciferol (vitamin D3) 1,250 1,250 mcg PO QWEEK #8 caps 07/07/22 mcg (50,000 unit) capsule metoprolol succinate 100 mg 100 mg PO HS #90 tabs 07/08/22 tablet,extended release 24 hr losartan 25 mg tablet See Rx Instructions .Route 08/04/22 .COMPLEX #90 tabs blood sugar diagnostic (OneTouch #400 ea 08/17/22 Verio test strips) doxepin 6 mg tablet 6 mg PO QHS PRN sleep #90 tabs 08/17/22 glucose 4 gram chewable tablet 4 g PO Q10MIN PRN hypoglycemia 08/17/22 (Dex4 Glucose) #100 tabs lancets (OneTouch UltraSoft #400 ea 08/17/22 Lancets) furosemide 40 mg tablet See Rx Instructions .Route 08/26/22 .COMPLEX #90 tabs Allergies Allergy/AdvReac Type Severity Reaction Status Date / Time mushrooms Allergy Unknown rash Uncoded 10/08/22 15:37 General Stated Complaint: Diabetes ALEKSANDR: 2 Review of Systems <Lorena Diez NP - Last Filed: 10/10/22 15:28> All systems reviewed & are unremarkable except as noted in HPI and below PFSH <Lorena Diez NP - Last Filed: 10/10/22 15:28> All Active Problems (Updated 10/08/22 @ 23:31 by Lorena Diez NP) Hypoglycemia (Acute) Menorrhagia (Chronic ~2021) Managed with IUD & norethidrone Insomnia (Acute ~07/2022) Constipation by delayed colonic transit (Chronic) Senna Class 3 severe obesity without serious comorbidity with body mass index (BMI) of 60.0 to 69.9 in adult (Acute) Hypothyroid (Chronic) [facility] Schizoaffective disorder, bipolar type (Chronic) [facility] PTSD (post-traumatic stress disorder) (Chronic) NK Morbid obesity (Chronic) BMI >60, Class 3 severe obesity Obstructive sleep apnea (adult) (pediatric) (Chronic ~2007) C-PAP; [facility] T2DM (type 2 diabetes mellitus) (Chronic ~2010) [place]; [facility] Endo Goal: <7% Dependent for transportation (Chronic) RCT Heart failure with preserved ejection fraction (Acute) Severe nonproliferative diabetic retinopathy (Chronic ~10/2021) Major depressive disorder, single episode, mild (Acute 05/11/21) Onychauxis (Acute) [facility] Podiatry Vitamin D deficiency (Acute ~02/2022) Medical History Abnormal CAT scan abscess at right gluteal area/coccyx, early osteomyelitis? Cardiomegaly Coagulopathy (~09/2021) ?VWD; [facility] [place] [place] Heme consult NEG Diabetic macular edema (~10/2021) Dissociative identity disorder (~2014) Hypoglycemia associated with diabetes (~10/2021) Iron deficiency anemia due to chronic blood loss Menorrhagia with irregular cycle IUD placed at [facility] [place] [place] Feb 2022, normal endo bx. Bleeding improved. On Northindrone 5mg BID Mixed hyperlipidemia Papilledema (~11/2021) Plantar fasciitis Surgical History No significant past surgical history Family History Father Diabetes Alcohol use disorder Mother Seizure disorder Other Factor VIII (functional) deficiency Fibroids Social History Smoking/Tobacco Use Status: Never Second Hand Exposure: No Smoking risk assessment performed?: Yes Alcohol Intake: former Drug use: Current Sobriety Substance use type: marijuana Adopted: Yes Caregiver/Support person: No Foster care: Yes Household members: none Housing: apartment Number of Children: 0 Communication Needs: None Education Level: college Details: associate's degree Do you need help understanding health information?: Never current occupation: [employer] Pets and animals: No Sexually active: No Do you think of yourself as: ??asexual Current gender identity: female What is your relationship status?: never How often do you talk on the phone with friends or family?: three or more times per week How often do you get together with friends or relatives?: never Do you belong to any clubs or organized social groups?: no Panel score (0-1 are the most socially isolated patients): 1 What type of physical activity do you participate in: walking Duration: < 15 minutes/day Frequency: 1-2 times per week Vane/Confucianism: None Special vane needs: No Seatbelt use: sometimes Helmet use: No Drive intox or ride w/intox gas truck driver: No Do you feel safe at home: Yes Do you feel safe in your relationship?: Yes Female Reproductive History Menstrual Age of Menarche: 13 Duration of menses: >10 days control method: none History History 0 Para Hx # Term Pregnancies Multiple births Hx # Pregnancies Ectopic pregnancies AB induced Hx Number of Living Children AB spontaneous Exam <Lorena Diez NP - Last Filed: 10/10/22 15:28> Const General: cooperative and no acute distress Nutritional Appearance: obese Orientation: alert, awake and oriented x3 HENMT Head: normal to inspection, normocephalic and atraumatic Mouth: oral mucosae normal Neck Neck: normal visual inspection Chest Chest: normal inspection of the chest Resp Effort & Inspection: normal respiratory effort Auscultation: clear to auscultation bilaterally Cardio Rate: regular rate Rhythm: regular rhythm GI Inspection: normal to inspection and large pannus Palpation: soft Skin General skin exam: no rashes or lesions noted Neuro General: patient alert, patient awake and patient oriented x3 Extrem General: normal to inspection and full ROM Course <Lorena Diez NP - Last Filed: 10/10/22 15:28> Vital Signs Vital signs: Vital Signs Temperature 36.9 C 10/08/22 15:24 Pulse 114 H 10/08/22 15:24 Respiratory Rate 22 10/08/22 15:24 Blood Pressure 129/64 10/08/22 15:24 Pulse Oximetry 98 10/08/22 15:24 Temperature 36.9 C 10/08/22 15:24 Temperature Source Tympanic 10/08/22 15:24 Pulse 97 H 10/08/22 20:16 Pulse 103 H 10/08/22 20:10 Respiratory Rate 10 L 10/08/22 20:03 Respiratory Effort Normal, Non-Labored 10/08/22 15:47 Blood Pressure 113/72 10/08/22 20:16 Blood Pressure Mean 81 10/08/22 20:16 Blood Pressure Position Sitting 10/08/22 15:24 Pulse Oximetry 97 10/08/22 19:32 Oxygen Delivery Method Room Air 10/08/22 15:24 Oxygen Flow Rate 0 10/08/22 15:24 Pain Level 0 10/08/22 15:24 Lab/Test Results Lab/Test Results: Laboratory Tests Range/Units 10/08/22 10/08/22 10/08/22 15:33 15:33 15:33 WBC (4.4-10.8) 10^3/uL 9.98 RBC (3.93-5.22) 10^6/uL 4.80 Hgb (11.2-15.7) g/dL 13.1 Hct (36.0-46.0) % 40.8 MCV (80-95) fL 85 MCH (27.0-33.0) pg 27.3 MCHC (32.0-36.0) % 32.1 RDW (11.7-14.6) % 14.5 Plt Count (130-400) 10^3/uL 406 H MPV (8.0-11.0) fL 10.8 Immature Gran % 0.4 Neutrophils % 51.3 Lymphocytes % 35.7 Monocytes % 10.0 Eosinophils % 2.2 Basophils % 0.4 Nucleated RBC % (0.0-0.3) % 0.0 Absolute Neutrophils (1.2-6.7) 10^3/uL 5.12 Absolute Lymphocytes (1.2-3.4) 10^3/uL 3.56 H Absolute Monocytes (0.1-0.8) 10^3/uL 1.00 H Absolute Eosinophils (0.0-0.7) 10^3/uL 0.22 Absolute Basophils (0.0-0.2) 10^3/uL 0.04 Sodium (136-145) mmol/L 140 Potassium (3.5-5.1) mmol/L 3.3 L Chloride (98-107) mmol/L 104 Carbon Dioxide (21.0-32.0) mmol/L 25.5 Anion Gap (3-11) mmol/L 10.5 BUN (7-18) mg/dL 10 Creatinine (0.55-1.02) mg/dL 1.2 H Est GFR (CKD-EPI 2020) (mL/min/1.73m2) 62.45 Glucose (74-106) mg/dL 45 L* Hemoglobin A1c (<5.7) % 6.8 H Calcium (8.5-10.1) mg/dL 9.2 Magnesium (1.8-2.4) mg/dL 2.0 Total Bilirubin (0.2-1.0) mg/dL 0.4 AST (15-37) U/L 31 ALT (14-59) U/L 86 H Alkaline Phosphatase (46-116) U/L 80 Total Protein (6.4-8.2) g/dL 8.6 H Albumin (3.4-5.0) g/dL 3.7 Sign Out <Lorena Diez NP - Last Filed: 10/10/22 15:28> Sign Out Data: Sign Out Comment: 32 year old diabetic, 2-3 months of weight loss, hypoglycemia, insulin dose cut in half, continues to have hypoglycemia. presents at 36, given dinner including 2 sandwiches, meal, grahams and PB and still having low bs 50's. given D10 with improvement to 160's but within one hour down to 80. Last updated by Lorena Diez NP at 10/08/22 23:00
[2022-10-08] MEDS: DEXTROSE 5%-0.45% SALINE 1,000 ML 125 ML IV (21:44)
--- NOTE | 2022-10-08 23:37 | NUR.NOTE ---
Pt BG pre snack = 75. Pt provided crackers and peanut butter w milk as directed. Will recheck BG in one hour to ensure pt is able to maintain BG.
[2022-10-09 00:27] VITALS: BP 120/72; PULSE 82; RESP 16; TEMP 36.9; O2SAT 100
== END 2022-10-09 00:28 | disposition home or self-care (01) ==
PROVIDERS: Nurse Practitioner Acute Care; Emergency Provider Student in an Organized Health Care Education/Training Program; PCP Nurse Practitioner Adult Health
DX: E11.649 Type 2 diabetes mellitus with hypoglycemia without coma (principal); R06.02 Shortness of breath
CPT/HCPCS: 36415; 36416; 80053; 82962; 96360; 96361; 99284; 83036; 83735; 85025

== ENCOUNTER 2022-10-13 10:34 | Emergency (ER) | payer MEDICARE, MEDICAID, SELFPAY ==
[2022-10-13] VITALS (39 sets, daily range): BP systolic 70–121; BP diastolic 42–74; PULSE 90–134; RESP 0–24; TEMP 36.7–37.1; O2SAT 96–102
--- NOTE | 2022-10-13 11:00 | DI.CT_ITS ---
Exam(s) CT HEAD CERV SPINE FACIAL WO EXAM: CT HEAD CERV SPINE FACIAL WO CLINICAL HISTORY: fall yesterday, right facial pain templ, and YE. TECHNIQUE: Imaging Protocol: Axial computed tomography images with coronal and sagittal reformatted images were created and reviewed COMPARISON: CT CT HEAD WO from 06/16/2021 FINDINGS: CT BRAIN: There are no skull fractures nor fluid in the visualized paranasal sinuses. There is no evidence of intracranial hemorrhage, mass effect, or shift of midline structures. There are no extra-axial fluid collections. The ventricles are not enlarged or shifted and there is no blo od within the ventricular system nor within the basal cisterns. CT MAXILLOFACIAL BONES: There is no evidence of facial fractures nor fluid in the visualized paranasal sinuses. Mild mucosal thickening noted in the maxillary sinuses, not associated with fluid levels. There is no evidence o f orbital blowout fracture. CT CERVICAL SPINE: There is no evidence of fracture nor listhesis. No significant prevertebral soft tissue swelling. N o facet malalignment evident. No significant osseous lesions evident. IMPRESSION: No acute intracranial findings on this noninfused CT scan of the brain. No evidence of facial nor orbital blowout fractures.There is some mucosal thickening noted in both ma xillary sinuses. There are no fluid levels. No evidence sinus fractures. No evidence of cervical spine fracture, malalignment, nor acute compromise of the cervical spinal can al. RADIATION DOSE DELIVERED: 3,815.57mGy.cm Total DLP DATA REPOSITORY: All CT scans at this facility are submitted to the National Radiology Data Registry (NRDR) Dose Index Registry (DIR) with the [employer] (A[employer]). RADIATION OPTIMIZATION: All CT scans at this facility use at least one of these dose optimization te chniques: automated exposure control; mA and/or kV adjustment per patient size (includes targeted exa ms where dose is matched to clinical indication); or iterative reconstruction.
--- NOTE | 2022-10-13 11:10 | W.ED.GENAD ---
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: Hemorrhagic shock, Morbid obesity, Menorrhagia, Hypoglycemia, ST elevation, Anemia Primary Care Provider: Lia Pearson ED Provider: Fernando Fang Home Meds and New Rx's Prescriptions: No Action rosuvastatin [Crestor] 40 mg tablet 40 mg PO DAILY doxepin 6 mg tablet 6 mg PO QHS PRN (Reason: sleep) Qty: 90 0RF (DME) lancets [OneTouch UltraSoft Lancets] Misc See Rx Instructions .ROUTE .MEDSUPPLY Qty: 400 3RF Rx Instructions: test ac and hs prn E11.9 to maintain AIC <7 OneTouch Verio (DME) OneTouch Verio test strips Strip See Rx Instructions .ROUTE .MEDSUPPLY Qty: 400 3RF Rx Instructions: to test blood sugars ac and hs to maintain AIC <7, E11.9 glucose [Dex4 Glucose] 4 gram tablet,chewable 4 g PO Q10MIN PRN (Reason: hypoglycemia) Qty: 100 3RF Rx Instructions: until symptoms of low blood sugar are controlled polyethylene glycol 3350 [Miralax] 17 gram/dose powder 17 g PO BID PRN (Reason: constipation) Qty: 510 1RF Rx Instructions: Constipation--please use [place] cover 05/04/22 aripiprazole [Abilify] 5 mg tablet 20 mg PO QAM cholecalciferol (vitamin D3) 50 mcg (2,000 unit) capsule 50 mcg PO DAILY Qty: 90 3RF Rx Instructions: Vitamin D Deficiency trazodone 300 mg tablet 300 mg PO QHS metoprolol succinate 100 mg tablet extended release 24 hr 100 mg PO HS Qty: 90 3RF Rx Instructions: Dose increase 07/08/2022 ziprasidone HCl [Geodon] 20 mg capsule 40 mg PO BID Patient Comments: I dont take that anymore Rx Instructions: Tapering off. 08/19/22 20mg BID do that for two weeks. (DME) pen needle, diabetic [Pen Needle] 32 gauge x needle See Rx Instructions .ROUTE .MEDSUPPLY Qty: 50 Rx Instructions: bid to administer insulin bid E11.9 levothyroxine 200 mcg tablet 200 mcg PO DAILY gabapentin 300 mg capsule 300 mg PO TID (DME) FreeStyle Toshia [address] [place] [facility] See Rx Instructions .Route Rx Instructions: swipe 4-5 times daily per note dated 11/12/21 [facility] [place] FreeStyle Toshia 2 [facility] See Rx Instructions .Route Rx Instructions: Swipe 4-5 x's daily per note dated 12/31/21 [facility] metformin 500 mg tablet 1,000 mg PO BID Hold Instructions: until discussed with mask former Ozempic 0.25 mg or 0.5 mg(2 mg/1.5 mL) pen injector 2 mg subcut QWEEK Hold Instructions: until discussed with mask former Rx Instructions: 12/23/21- pt reports [facility] Endocrinology increased dose to 1mg q week. 02/06/22 [facility] [place] per pt increased to 2 mg weekly. mk Lantus Solostar U-100 Insulin 100 unit/mL (3 mL) insulin pen See Rx Instructions subcut BID Hold Instructions: until discussed with mask former Rx Instructions: 02/06/22 dose change per pt 17U am, 18U pm. mk senna 8.6 mg capsule 8.6 mg PO DAILY norethindrone acetate 5 mg tablet 5 mg PO DAILY Patient Comments: 05/19/22- pt reports taking 5 mg po BID Rx Instructions: per note dated 11/26/21 [facility] [place] Depend Underwear For Women XL [facility] See Rx Instructions .Route Qty: 60 12RF Rx Instructions: 1-2 per day prn (DME) incontinence pad, liner, disp Pad See Rx Instructions .Route Qty: 40 12RF Rx Instructions: 1-2 per day ferrous gluconate 324 mg (38 mg iron) tablet See Rx Instructions .ROUTE .COMPLEX Qty: 180 1RF Dose Instruction: TAKE ONE TABLET BY MOUTH TWICE A DAY Rx Instructions: TAKE ONE TABLET BY MOUTH TWICE A DAY empagliflozin 10 mg tablet 10 mg PO DAILY Hold Instructions: until discussed with mask former insulin aspart U-100 [Novolog FlexPen U-100 Insulin] 100 unit/mL (3 mL) insulin pen 1 sliding scale dose subcut TID Hold Instructions: until discussed with mask former Rx Instructions: With meals. cholecalciferol (vitamin D3) 1,250 mcg (50,000 unit) capsule 1,250 mcg PO QWEEK Qty: 8 1RF Rx Instructions: Vitamin D deficiency losartan 25 mg tablet See Rx Instructions .ROUTE .COMPLEX Qty: 90 3RF Dose Instruction: TAKE ONE TABLET BY MOUTH EVERY DAY Rx Instructions: TAKE ONE TABLET BY MOUTH EVERY DAY furosemide 40 mg tablet See Rx Instructions .ROUTE .COMPLEX Qty: 90 0RF Dose Instruction: TAKE ONE TABLET BY MOUTH EVERY MORNING Rx Instructions: TAKE ONE TABLET BY MOUTH EVERY MORNING prazosin [Minipress] 5 mg Capsule 5 mg PO DAILY Medical Decision Making 1115??32-year-old female with history of menorrhagia, here with heavy vaginal bleeding over the past 6 days with no associated dizziness. Patient is tachycardic with low normal blood pressure. Patient has clots in her depends but no hemorrhage at this time. Given clinical picture, concern for symptomatic anemia, plan to transfuse PRBCs. Patient to have stat type and crossmatch. Patient is altered with mild confusion. She did fall and strike her head yesterday. Will obtain CT of the head, face and cervical spine. --EKG was reviewed and interpreted by me: Please see report, sinus rhythm, borderline ST elevation anterior lateral leads which is new compared to prior. Patient reassessed and has no chest pain at this time. She does note she had some chest discomfort yesterday. Plan to check troponin. 1250 --labs reviewed: Troponin negative. Anemia noted. Hemoglobin significantly decreased from recent prior. Now 8.9, was 13 on 10/08/2022. Patient receiving blood product. I am also administering TXA [address] of the head, face and cervical spine interpreted by radiology as negative. Patient was seen by gynecology who agrees with current treatment plan. Recommends pelvic ultrasound be performed to assess for IUD. 1300 --fingerstick glucose 70. Will give D25. --Ultrasound interpreted by radiology: No IUD present. I spoke with Dr. Thompson who recommends transfer. I [place] [facility] [place] to request transfer and spoke with Dr. Meade and Dr. Desai, discussed ED presentation and course, Dr. Meade will accept the patient in transfer. We did discuss whether or not to administer Premarin IV and Dr. Desai recommended holding if not actively hemorrhaging given prior administration of TXA. Patient reassessed and did have some older clot again in her depends. No hemorrhage. Plan to hold Premarin given risk benefit. 1520 --patient's meter again alerting. Fingerstick 70. Plan to give additional amp of D25. Patient provided informed consent to transfer. Lab Data Lab results reviewed: Yes I reviewed the patient's lab results. Labs: Laboratory Tests Range/Units 10/13/22 10/13/22 10/13/22 10:36 10:36 10:45 WBC (4.4-10.8) 10^3/uL 8.94 RBC (3.93-5.22) 10^6/uL 3.20 L Hgb (11.2-15.7) g/dL 8.9 L Hct (36.0-46.0) % 27.8 L MCV (80-95) fL 87 MCH (27.0-33.0) pg 27.8 MCHC (32.0-36.0) % 32.0 RDW (11.7-14.6) % 14.7 H Plt Count (130-400) 10^3/uL 372 MPV (8.0-11.0) fL 11.2 H Immature Gran % 1.2 Neutrophils % 64.9 Lymphocytes % 23.0 Monocytes % 7.4 Eosinophils % 3.2 Basophils % 0.3 Nucleated RBC % (0.0-0.3) % 0.0 Absolute Neutrophils (1.2-6.7) 10^3/uL 5.79 Absolute Lymphocytes (1.2-3.4) 10^3/uL 2.06 Absolute Monocytes (0.1-0.8) 10^3/uL 0.66 Absolute Eosinophils (0.0-0.7) 10^3/uL 0.29 Absolute Basophils (0.0-0.2) 10^3/uL 0.03 PT (9.3-11.0) sec INR (0.9-1.1) APTT (21.5-31.9) sec Sodium (136-145) mmol/L 140 Potassium (3.5-5.1) mmol/L 4.2 Chloride (98-107) mmol/L 105 Carbon Dioxide (21.0-32.0) mmol/L 25.0 Anion Gap (3-11) mmol/L 10.0 BUN (7-18) mg/dL 19 H Creatinine (0.55-1.02) mg/dL 1.3 H Est GFR (CKD-EPI 2020) (mL/min/1.73m2) 56.73 Glucose (74-106) mg/dL 98 Calcium (8.5-10.1) mg/dL 8.5 Total Bilirubin (0.2-1.0) mg/dL 0.2 AST (15-37) U/L 23 ALT (14-59) U/L 58 Alkaline Phosphatase (46-116) U/L 66 Troponin I (<or=60) ng/L Total Protein (6.4-8.2) g/dL 7.1 Albumin (3.4-5.0) g/dL 3.1 L TSH (0.36-3.74) uIU/mL Patient ABO/Rh O Positive Antibody Screen NEGATIVE Crossmatch See Detail Range/Units 10/13/22 10/13/22 10/13/22 10:45 10:45 11:07 WBC (4.4-10.8) 10^3/uL RBC (3.93-5.22) 10^6/uL Hgb (11.2-15.7) g/dL Hct (36.0-46.0) % MCV (80-95) fL MCH (27.0-33.0) pg MCHC (32.0-36.0) % RDW (11.7-14.6) % Plt Count (130-400) 10^3/uL MPV (8.0-11.0) fL Immature Gran % Neutrophils % Lymphocytes % Monocytes % Eosinophils % Basophils % Nucleated RBC % (0.0-0.3) % Absolute Neutrophils (1.2-6.7) 10^3/uL Absolute Lymphocytes (1.2-3.4) 10^3/uL Absolute Monocytes (0.1-0.8) 10^3/uL Absolute Eosinophils (0.0-0.7) 10^3/uL Absolute Basophils (0.0-0.2) 10^3/uL PT (9.3-11.0) sec 9.8 INR (0.9-1.1) 1.0 APTT (21.5-31.9) sec 21.9 Sodium (136-145) mmol/L Potassium (3.5-5.1) mmol/L Chloride (98-107) mmol/L Carbon Dioxide (21.0-32.0) mmol/L Anion Gap (3-11) mmol/L BUN (7-18) mg/dL Creatinine (0.55-1.02) mg/dL Est GFR (CKD-EPI 2020) (mL/min/1.73m2) Glucose (74-106) mg/dL Calcium (8.5-10.1) mg/dL Total Bilirubin (0.2-1.0) mg/dL AST (15-37) U/L ALT (14-59) U/L Alkaline Phosphatase (46-116) U/L Troponin I (<or=60) ng/L < 50 Total Protein (6.4-8.2) g/dL Albumin (3.4-5.0) g/dL TSH (0.36-3.74) uIU/mL 1.56 Patient ABO/Rh Antibody Screen Crossmatch HPI General Mode of arrival: ambulatory. Date/Time Provider Initiated Documentation: 10/13/22 10:36. Limitations to Documentation: no limitations. Information obtained by: patient. HPI Narrative: 32-year-old female with history of menorrhagia, morbid obesity, diabetes, heart failure with preserved EF, presents with chief complaint of dizziness. Patient notes heavy vaginal bleeding over the past 6 days. Patient notes she has been passing clots at times. Bleeding has improved today. She notes she has had associated dizziness over the past couple days and is concerned that her blood counts may be low. Patient notes that she has required blood transfusion in the remote past for heavy vaginal bleeding. Patient did fall and struck her right face and head yesterday. She does note headache and right facial pain around her eye and mormonism. Related Data Home Medications Medication Instructions Recorded Confirmed prazosin 5 mg capsule (Minipress) 5 mg PO DAILY 06/16/21 10/13/22 gabapentin 300 mg capsule 300 mg PO TID 06/20/21 10/13/22 levothyroxine 200 mcg tablet 200 mcg PO DAILY 06/20/21 10/13/22 pen needle, diabetic 32 gauge x #50 ea 06/20/21 10/08/22 (Pen Needle) rosuvastatin 40 mg tablet (Crestor) 40 mg PO DAILY 11/03/21 10/13/22 flash glucose scanning reader 11/24/21 10/08/22 (FreeStyle Toshia 2 [place]) flash glucose scanning reader 01/09/22 10/08/22 (FreeStyle Toshia [address] [place]) aripiprazole 5 mg tablet (Abilify) 20 mg PO QAM 02/16/22 10/13/22 metformin 500 mg tablet 1,000 mg PO BID 02/16/22 10/13/22 semaglutide 0.25 mg or 0.5 mg (2 2 mg subcut QWEEK 02/16/22 10/13/22 mg/1.5 mL) subcutaneous pen injector (Ozempic) insulin glargine 100 unit/mL (3 See Rx Instructions subcut BID 03/09/22 10/13/22 mL) subcutaneous pen (Lantus Solostar U-100 Insulin) polyethylene glycol 3350 17 17 g PO BID PRN constipation #510 05/04/22 10/13/22 gram/dose oral powder (Miralax) grams sennosides 8.6 mg capsule (senna) 8.6 mg PO DAILY 05/06/22 10/13/22 norethindrone acetate 5 mg tablet 5 mg PO DAILY 05/19/22 10/13/22 diaper,brief,adult,disposable #60 ea 06/03/22 10/08/22 (Depend Underwear For Women XL) incontinence pad, liner, disp #40 ea 06/03/22 10/08/22 cholecalciferol (vitamin D3) 50 50 mcg PO DAILY #90 caps 06/17/22 10/13/22 mcg (2,000 unit) capsule ferrous gluconate 324 mg (38 mg See Rx Instructions .Route 06/17/22 10/13/22 iron) tablet .COMPLEX #180 tabs empagliflozin 10 mg tablet 10 mg PO DAILY 06/25/22 10/13/22 insulin aspart U-100 100 unit/mL 1 sliding scale dose subcut TID 06/25/22 10/13/22 (3 mL) subcutaneous pen (Novolog FlexPen U-100 Insulin aspart) trazodone 300 mg tablet 300 mg PO QHS 07/06/22 10/13/22 cholecalciferol (vitamin D3) 1,250 1,250 mcg PO QWEEK #8 caps 07/07/22 10/13/22 mcg (50,000 unit) capsule metoprolol succinate 100 mg 100 mg PO HS #90 tabs 07/08/22 10/13/22 tablet,extended release 24 hr losartan 25 mg tablet See Rx Instructions .Route 08/04/22 10/13/22 .COMPLEX #90 tabs ziprasidone HCl 20 mg capsule 40 mg PO BID 08/05/22 10/08/22 (Geodon) blood sugar diagnostic (OneTouch #400 ea 08/17/22 10/08/22 Verio test strips) doxepin 6 mg tablet 6 mg PO QHS PRN sleep #90 tabs 08/17/22 10/13/22 glucose 4 gram chewable tablet 4 g PO Q10MIN PRN hypoglycemia 08/17/22 10/13/22 (Dex4 Glucose) #100 tabs lancets (OneTouch UltraSoft #400 ea 08/17/22 10/08/22 Lancets) furosemide 40 mg tablet See Rx Instructions .Route 08/26/22 10/13/22 .COMPLEX #90 tabs Previous Rx's Medication Instructions Recorded polyethylene glycol 3350 17 17 g PO BID PRN constipation #510 05/04/22 gram/dose oral powder (Miralax) grams diaper,brief,adult,disposable #60 ea 06/03/22 (Depend Underwear For Women XL) incontinence pad, liner, disp #40 ea 06/03/22 cholecalciferol (vitamin D3) 50 50 mcg PO DAILY #90 caps 06/17/22 mcg (2,000 unit) capsule ferrous gluconate 324 mg (38 mg See Rx Instructions .Route 06/17/22 iron) tablet .COMPLEX #180 tabs cholecalciferol (vitamin D3) 1,250 1,250 mcg PO QWEEK #8 caps 07/07/22 mcg (50,000 unit) capsule metoprolol succinate 100 mg 100 mg PO HS #90 tabs 07/08/22 tablet,extended release 24 hr losartan 25 mg tablet See Rx Instructions .Route 08/04/22 .COMPLEX #90 tabs blood sugar diagnostic (OneTouch #400 ea 08/17/22 Verio test strips) doxepin 6 mg tablet 6 mg PO QHS PRN sleep #90 tabs 08/17/22 glucose 4 gram chewable tablet 4 g PO Q10MIN PRN hypoglycemia 08/17/22 (Dex4 Glucose) #100 tabs lancets (OneTouch UltraSoft #400 ea 08/17/22 Lancets) furosemide 40 mg tablet See Rx Instructions .Route 08/26/22 .COMPLEX #90 tabs Allergies Allergy/AdvReac Type Severity Reaction Status Date / Time mushrooms Allergy Unknown rash Uncoded 10/13/22 10:38 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 Review of Systems All systems reviewed & are unremarkable except as noted in HPI and below Genitourinary Genitourinary: Reports as per HPI Neurologic Comments: dizzy PFSH All Active Problems (Updated 10/13/22 @ 15:34 by Fernando Fang MD) Hypoglycemia (Acute) Hemorrhagic shock (Acute) Hypoglycemia (Acute) ST elevation (Acute) Anemia (Chronic) Menorrhagia (Chronic ~2021) Managed with IUD & norethidrone Insomnia (Acute ~07/2022) Constipation by delayed colonic transit (Chronic) Senna Class 3 severe obesity without serious comorbidity with body mass index (BMI) of 60.0 to 69.9 in adult (Acute) Hypothyroid (Chronic) [facility] Endo Schizoaffective disorder, bipolar type (Chronic) [facility] PTSD (post-traumatic stress disorder) (Chronic) [facility] Morbid obesity (Chronic) BMI >60, Class 3 severe obesity Obstructive sleep apnea (adult) (pediatric) (Chronic ~2007) C-PAP; [facility] Sleep Medicine T2DM (type 2 diabetes mellitus) (Chronic ~2010) [place]; [facility] Endo Goal: <7% Dependent for transportation (Chronic) RCT Heart failure with preserved ejection fraction (Acute) Severe nonproliferative diabetic retinopathy (Chronic ~10/2021) Major depressive disorder, single episode, mild (Acute 05/11/21) Onychauxis (Acute) [facility] Podiatry Vitamin D deficiency (Acute ~02/2022) Medical History Abnormal CAT scan abscess at right gluteal area/coccyx, early osteomyelitis? Cardiomegaly Coagulopathy (~09/2021) ?[facility]; [facility] [place]e consult NEG Diabetic macular edema (~10/2021) Dissociative identity disorder (~2014) Hypoglycemia associated with diabetes (~10/2021) Iron deficiency anemia due to chronic blood loss Menorrhagia with irregular cycle IUD placed [place] [facility] [place], normal endo bx. Bleeding improved. On Northindrone 5mg BID Mixed hyperlipidemia Papilledema (~11/2021) Plantar fasciitis Surgical History No significant past surgical history Family History Father Diabetes Alcohol use disorder Mother Seizure disorder Other Factor VIII (functional) deficiency Fibroids Social History Smoking/Tobacco Use Status: Never Second Hand Exposure: No Smoking risk assessment performed?: Yes Alcohol Intake: former Drug use: Current Sobriety Substance use type: marijuana Adopted: Yes Caregiver/Support person: No Foster care: Yes Household members: none Housing: apartment Number of Children: 0 Communication Needs: None Education Level: college Details: associate's degree Do you need help understanding health information?: Never current occupation: [employer] Pets and animals: No Sexually active: No Do you think of yourself as: ??asexual Current gender identity: female What is your relationship status?: never How often do you talk on the phone with friends or family?: three or more times per week How often do you get together with friends or relatives?: never Do you belong to any clubs or organized social groups?: no Panel score (0-1 are the most socially isolated patients): 1 What type of physical activity do you participate in: walking Duration: < 15 minutes/day Frequency: 1-2 times per week Vane/Confucianism: None Special vane needs: No Seatbelt use: sometimes Helmet use: No Drive intox or ride w/intox commercial driver: No Do you feel safe at home: Yes Do you feel safe in your relationship?: Yes Female Reproductive History Menstrual Age of Menarche: 13 Duration of menses: >10 days control method: none History History 0 Para Hx # Term Pregnancies Multiple births Hx # Pregnancies Ectopic pregnancies AB induced Hx Number of Living Children AB spontaneous Exam Const General: cooperative HENMT Head: no Galeana's sign, no hematomas, no raccoon eyes, No periorbital ecchymosis and other (ttp right maxilla and mormonism) General nose exam: external nose normal Face and sinus: tenderness on the right maxilla Mouth: moist mucous membranes Eyes Conjunctivae: normal conjunctivae Sclera: normal sclerae Neck Neck: trachea midline, supple and nontender Resp Auscultation: clear to auscultation bilaterally, no rales, no rhonchi and no wheezes Cardio Rate: tachycardic Rhythm: regular rhythm GI Palpation: soft, not firm, no guarding, no masses, not rigid and nontender Other: External exam performed with female nurse mail superintendent present, no active hemorrhage but there are blood clots noted in depends, dried blood on legs Skin General skin exam: no rashes or lesions noted Neuro General: patient awake and tone normal Cognition: abnormal cognition Other: Patient is oriented to person, place, date; seems minimally confused, slow to respond Course Vital Signs Vital signs: Vital Signs Pulse 99 H 10/13/22 10:32 Respiratory Rate 18 10/13/22 10:32 Blood Pressure 106/54 L 10/13/22 10:32 Pulse Oximetry 98 10/13/22 10:32 Pulse 99 H 10/13/22 10:32 Respiratory Rate 18 10/13/22 10:32 Respiratory Effort Normal 10/13/22 10:42 Blood Pressure 106/54 L 10/13/22 10:32 Blood Pressure Position Supine 10/13/22 10:32 Pulse Oximetry 98 10/13/22 10:32 Oxygen Delivery Method Room Air 10/13/22 10:32 Oxygen Flow Rate 0 10/13/22 10:32 Pain Level 0 10/13/22 10:42 Lab/Test Results Lab/Test Results: Laboratory Tests Range/Units 10/13/22 10:45 Crossmatch See Detail Critical Care Time Critical Care Time Critical Care Time: Yes Total Critical Care Time: 85 Attestation: I spent greater than 85 minutes addressing this patient's immediate life threats. Please see MDM section of note. This time was spent engaged in work directly related to the patient's care, exclusive of separate procedures, and failure to initiate these interventions would have likely resulted in clinically significant or life threatening deterioration in the patient's condition.
[2022-10-13 11:12] LABS: Abs Immature Grans 0.11 10^3/uL (0.0-0.06); Absolute Basophil Count 0.03 10^3/uL (0.0-0.2); Absolute Eosinophil Count 0.29 10^3/uL (0.0-0.7); Absolute Lymphocyte Count 2.06 10^3/uL (1.2-3.4); Absolute Monocyte Count 0.66 10^3/uL (0.1-0.8); Absolute Neutrophil Count 5.79 10^3/uL (1.2-6.7); Basophils % 0.3; Eosinophils % 3.2; HCT 27.8 % (36.0-46.0); HGB 8.9 g/dL (11.2-15.7); Immature Grans % 1.2; MCH 27.8 pg (27.0-33.0); MCV 87 fL (80-95); MPV 11.2 fL (8.0-11.0); Monocytes % 7.4; Neutrophils % 64.9; Platelet Count 372 10^3/uL (130-400); RDW 14.7 % (11.7-14.6); WBC 8.94 10^3/uL (4.4-10.8)
--- NOTE | 2022-10-13 11:15 | RT.EKG_ITS ---
APPROVED REPORT Exam: Resting ECG Reason for Exam: dizzy Patient Location: E HR:97 bpm ECG Measurements Heart Rate 97 AXIS AK 169 P 45 QRSd 76 QRS 21 QT 335 T 16 QTc 427 Conclusion Sinus rhythm...normal P axis, V-rate 60- 99 Low voltage, precordial leads...precordial leads <1.0mV Borderline ST elevation, lateral leads...ST >0.06mV, I aVL V5 V6 ST elevation new compared to prior
[2022-10-13 11:30] LABS: PTT Activated 21.9 sec (21.5-31.9); Prothrombin Time 9.8 sec (9.3-11.0)
--- NOTE | 2022-10-13 11:30 | DI.US_ITS ---
Exam(s) US PELVIS EXAM: US PELVIS CLINICAL HISTORY: vaginal bleeding, assess for iud TECHNIQUE: Ultrasound of the pelvis was performed transabdominally.. COMPARISON: No exams were available for comparison FINDINGS: UTERUS: Nongravid and anteverted, Measures 12 cm length x 6 cm AP x 8 cm wide. There are no uterine fibroids. Endometrial thickness measures 5 mm. There is no fluid in the endometrial canal. In addition, the apparently present IUD is not seen in t he endometrial canal CERVIX: There are no obvious nabothian cysts. RIGHT OVARY: Not seen LEFT OVARY: Measures 1.9 x 1.2 x 1.6 cm No significant cysts nor masses evident in the left ovary. CUL-DE-SAC: No free fluid evident. IMPRESSION: 1. Normal appearing uterus and age-appropriate endometrium. 2. IUD is not seen in the endometrial cavity on this trans abdominal pelvic ultrasound study. 3. Right ovary not seen. Left ovary appears unremarkable. 4. There is no free fluid in the pelvis. DATA REPOSITORY:
[2022-10-13 11:33] LABS: ALT 58 U/L (14-59); AST 23 U/L (15-37); Albumin 3.1 g/dL (3.4-5.0); Alkaline Phosphatase 66 U/L (46-116); BUN 19 mg/dL (7-18); Bilirubin, Total 0.2 mg/dL (0.2-1.0); CREATININE 1.3 mg/dL (0.55-1.02); Calcium 8.5 mg/dL (8.5-10.1); Chloride 105 mmol/L (98-107); Estimated GFR 56.73 (mL/min/1.73m2); Glucose 98 mg/dL (74-106); Potassium 4.2 mmol/L (3.5-5.1); Sodium 140 mmol/L (136-145); Total Protein 7.1 g/dL (6.4-8.2)
[2022-10-13 11:47] LABS: TSH (W/Ref FT4) 1.56 uIU/mL (0.36-3.74)
[2022-10-13 12:11] LABS: Troponin I < 50 ng/L (<or=60)
[2022-10-13] MEDS: Tranexamic Acid 1,000 MG/10 ML VIAL 1000 MG IVP (12:13)
[2022-10-13] MEDS: Dextrose 25%-Water 10 ML SYR IVP ×2 (13:24→15:19)
[2022-10-13 15:14] LABS: Troponin I < 50 ng/L (<or=60)
[2022-10-13 15:24] LABS: HCT 26.6 % (36.0-46.0); HGB 8.6 g/dL (11.2-15.7); MCH 27.9 pg (27.0-33.0); MCHC 32.3 % (32.0-36.0); MCV 86 fL (80-95); MPV 10.3 fL (8.0-11.0); Platelet Count 322 10^3/uL (130-400); RBC 3.08 10^6/uL (3.93-5.22); RDW 14.8 % (11.7-14.6); RDW-SD 46.4 fL
== END 2022-10-13 15:34 | disposition short-term general hospital (02) ==
PROVIDERS: Emergency Provider Student in an Organized Health Care Education/Training Program; PCP Nurse Practitioner Adult Health
DX: N92.0 Excessive and frequent menstruation with regular cycle (principal); E66.01 Morbid (severe) obesity due to excess calories; D64.9 Anemia, unspecified; E11.649 Type 2 diabetes mellitus with hypoglycemia without coma; R94.31 Abnormal electrocardiogram [ECG] [EKG]; R57.8 Other shock; R42 Dizziness and giddiness; R51.9 Headache, unspecified; W19.XXXA Unspecified fall, initial encounter; I50.32 Chronic diastolic (congestive) heart failure
CPT/HCPCS: 36415; 36416; 36430; 80053; 82962; 85027; 86850; 86900; 86901; 86920; 93005; 96374; 96375; 96376; 99291; 99292; 70450; 70486; 72125; 76856; 84443; 84484; 85025; 85610; 85730; 93010; P9016

== ENCOUNTER 2022-12-04 15:34 | Outpatient (REF) | payer MEDICARE, MEDICAID, SELFPAY ==
[2022-12-04 14:49] LABS: Anion Gap 10.8 mmol/L (3-11); BUN 12 mg/dL (7-18); CO2 22.2 mmol/L (21.0-32.0); Calcium 9.4 mg/dL (8.5-10.1); Chloride 105 mmol/L (98-107); Estimated GFR 77.72 (mL/min/1.73m2); Glucose 83 mg/dL (74-106); Sodium 138 mmol/L (136-145)
[2022-12-04 14:53] LABS: Abs Immature Grans 0.05 10^3/uL (0.0-0.06); Absolute Basophil Count 0.04 10^3/uL (0.0-0.2); Absolute Eosinophil Count 0.27 10^3/uL (0.0-0.7); Absolute Lymphocyte Count 1.63 10^3/uL (1.2-3.4); Absolute Monocyte Count 0.87 10^3/uL (0.1-0.8); Absolute Neutrophil Count 5.88 10^3/uL (1.2-6.7); Basophils % 0.5; Eosinophils % 3.1; HCT 41.4 % (36.0-46.0); HGB 12.8 g/dL (11.2-15.7); Immature Grans % 0.6; Lymphocytes % 18.6; MCH 26.8 pg (27.0-33.0); MCHC 30.9 % (32.0-36.0); MCV 87 fL (80-95); MPV 11.2 fL (8.0-11.0); Neutrophils % 67.2; Platelet Count 406 10^3/uL (130-400); RBC 4.78 10^6/uL (3.93-5.22); RDW-SD 48.1 fL; WBC 8.74 10^3/uL (4.4-10.8)
== END 2022-12-04 15:35 | disposition home or self-care (01) ==
LOC: LBN 15:34
PROVIDERS: PCP Nurse Practitioner Adult Health; Visit Provider Physician Assistant Medical
DX: R19.7 Diarrhea, unspecified (principal)
CPT/HCPCS: 80048; 85025

== ENCOUNTER 2023-01-05 09:49 | Observation (INO) | payer MEDICARE, MEDICAID, SELFPAY ==
[2023-01-05] VITALS (111 sets, daily range): BP systolic 86–157; BP diastolic 33–99; PULSE 79–131; RESP 6–28; TEMP 36.3–37.3; O2SAT 89–99
--- NOTE | 2023-01-05 10:15 | RT.EKG_ITS ---
APPROVED REPORT Exam: Resting ECG Reason for Exam: tachycardia Patient Location: E HR:110 bpm ECG Measurements Heart Rate 110 AXIS VA 156 P 55 QRSd 78 QRS 35 QT 316 T 8 QTc 428 Conclusion Sinus tachycardia...rate> 99 Low voltage, precordial leads...precordial leads <1.0mV ST elev, probable normal early repol pattern...ST elevation, age<55 sinus tachycardia, normal axis, norml intervals, t wave inverions and flatterning inferior
--- NOTE | 2023-01-05 10:21 | W.ED.GENAD ---
Discharge Plan Disposition Patient Disposition: Admit to [facility] Condition: Stable Discharge Details Chief Complaint: GenMedical Clinical Impression: Hypoglycemia Primary Care Provider: Lia Pearson ED Provider: Sadiq Gallegos Home Meds and New Rx's Prescriptions: No Action rosuvastatin [Crestor] 40 mg tablet 40 mg PO DAILY doxepin 6 mg tablet 6 mg PO QHS PRN (Reason: sleep) Qty: 90 0RF (DME) lancets [OneTouch UltraSoft Lancets] Misc See Rx Instructions .ROUTE .MEDSUPPLY Qty: 400 3RF Rx Instructions: test ac and hs prn E11.9 to maintain AIC <7 OneTouch Verio (DME) OneTouch Verio test strips Strip See Rx Instructions .ROUTE .MEDSUPPLY Qty: 400 3RF Rx Instructions: to test blood sugars ac and hs to maintain AIC <7, E11.9 glucose [Dex4 Glucose] 4 gram tablet,chewable 4 g PO Q10MIN PRN (Reason: hypoglycemia) Qty: 100 3RF Rx Instructions: until symptoms of low blood sugar are controlled polyethylene glycol 3350 [Miralax] 17 gram/dose powder 17 g PO BID PRN (Reason: constipation) Qty: 510 1RF Rx Instructions: Constipation--please use [place] 05/04/22 aripiprazole [Abilify] 5 mg tablet 20 mg PO QAM cholecalciferol (vitamin D3) 50 mcg (2,000 unit) capsule 50 mcg PO DAILY Qty: 90 3RF Rx Instructions: Vitamin D Deficiency trazodone 300 mg tablet 300 mg PO QHS metoprolol succinate 100 mg tablet extended release 24 hr 100 mg PO HS Qty: 90 3RF Rx Instructions: Dose increase 07/08/2022 ziprasidone HCl [Geodon] 20 mg capsule 40 mg PO BID Patient Comments: I dont take that anymore Rx Instructions: Tapering off. 08/19/22 20mg BID do that for two weeks. (DME) pen needle, diabetic [Pen Needle] 32 gauge x needle See Rx Instructions .ROUTE .MEDSUPPLY Qty: 50 Rx Instructions: bid to administer insulin bid E11.9 levothyroxine 200 mcg tablet 200 mcg PO DAILY gabapentin 300 mg capsule 300 mg PO TID (DME) FreeStyle Toshia 2 [place] Misc See Rx Instructions .Route Rx Instructions: swipe 4-5 times daily per note dated 11/12/21 [facility] [place] cc (DME) FreeStyle Toshia [place] [facility] See Rx Instructions .Route Rx Instructions: Swipe 4-5 x's daily per note dated 12/31/21 [facility] metformin 500 mg tablet 1,000 mg PO BID Hold Instructions: until discussed with axle polisher Ozempic 0.25 mg or 0.5 mg(2 mg/1.5 mL) pen injector 2 mg subcut QWEEK Hold Instructions: until discussed with axle polisher Rx Instructions: 12/23/21- pt reports [facility] Endocrinology increased dose to 1mg q week. 02/06/22 Endo [facility] per pt increased to 2 mg weekly. mk Lantus Solostar U-100 Insulin 100 unit/mL (3 mL) insulin pen See Rx Instructions subcut BID Hold Instructions: until discussed with axle polisher Rx Instructions: 02/06/22 dose change per pt 17U am, 18U pm. mk senna 8.6 mg capsule 8.6 mg PO DAILY (DME) [employer] XL [facility] See Rx Instructions .Route Qty: 60 12RF Rx Instructions: 1-2 per day prn (DME) incontinence pad, liner, disp Pad See Rx Instructions .Route Qty: 40 12RF Rx Instructions: 1-2 per day empagliflozin 10 mg tablet 10 mg PO DAILY Hold Instructions: until discussed with axle polisher insulin aspart U-100 [Novolog FlexPen U-100 Insulin] 100 unit/mL (3 mL) insulin pen 1 sliding scale dose subcut TID Hold Instructions: until discussed with axle polisher Rx Instructions: With meals. cholecalciferol (vitamin D3) 1,250 mcg (50,000 unit) capsule 1,250 mcg PO QWEEK Qty: 8 1RF Rx Instructions: Vitamin D deficiency losartan 25 mg tablet See Rx Instructions .ROUTE .COMPLEX Qty: 90 3RF Dose Instruction: TAKE ONE TABLET BY MOUTH EVERY DAY Rx Instructions: TAKE ONE TABLET BY MOUTH EVERY DAY norethindrone acetate 5 mg tablet 10 mg PO TID Patient Comments: 10/29/22 pt reports 10mg tid furosemide 40 mg tablet 40 mg PO QAM Qty: 90 3RF ferrous gluconate 324 mg (38 mg iron) tablet See Rx Instructions .ROUTE .COMPLEX Qty: 180 1RF Dose Instruction: TAKE ONE TABLET BY MOUTH TWICE A DAY Rx Instructions: TAKE ONE TABLET BY MOUTH TWICE A DAY prazosin [Minipress] 5 mg Capsule 5 mg PO DAILY Medical Decision Making 32-year-old female history of diabetes presents feeling lightheaded, loss of appetite over the past couple of days has not been taking her insulin as she has not been eating, blood sugar at home in the 130s, fingerstick in triage near 80; noted to be tachycardic and hypotensive on arrival, afebrile. Relatively nontoxic alert oriented no respiratory distress no chest pain nonperitoneal, does appear to be slightly dry with dry oromucosa, consider dehydration in the setting of viral illness leading to DKA versus must consider pneumonia versus UTI versus less likely ACS or PE. Stat fluid bolus 2 L crystalloid, Zofran, will repeat labs to assess electrolytes, VBG, viral panel UA chest x-ray EKG, will pull blood cultures. Disposition pending reassessment of symptoms and vital signs 11: 08 blood sugar noted to be in the 50s, amp of D50 has been administered with great improvement of mental status. Patient Dors that she has been severely hyperglycemic in the past requiring intubation. Patient is still been taking her medication despite not eating, she stopped her insulin but has been taking empagliflozin; we will continue to search for trigger of initial decreased p.o. intake. Heart rate now in the low 100s, blood pressure in the 110s; significant clinical improvement from arrival. Disposition pending repeat fingersticks over the next 1 to 2 hours, trial of p.o. intake Labs and imaging results 12: 13 blood sugars dropped again to 47, given amp of D50, will start patient on D5 NS at 125 mL/h. Patient will be admitted to ICU 13: 42 patient resting comfortably no acute distress, blood sugar did dip again into the 50s, was given another amp of D50, transitioning patient to D10 NS at 50 cc/h, patient has been admitted to the ICU HPI General Date/Time Provider Initiated Documentation: 01/05/23 10:17. HPI Narrative: 32-year-old female history of diabetes presents feeling generally unwell dizzy, lightheaded, decreased appetite, has not been taking her insulin as she has not been eating, denies nausea or urinary symptoms chest pain or trouble breathing Related Data Home Medications Medication Instructions Recorded Confirmed prazosin 5 mg capsule (Minipress) 5 mg PO DAILY 06/16/21 10/13/22 gabapentin 300 mg capsule 300 mg PO TID 06/20/21 10/13/22 levothyroxine 200 mcg tablet 200 mcg PO DAILY 06/20/21 10/13/22 pen needle, diabetic 32 gauge x #50 ea 06/20/21 10/08/22 (Pen Needle) rosuvastatin 40 mg tablet (Crestor) 40 mg PO DAILY 11/03/21 10/13/22 flash glucose scanning reader 11/24/21 10/08/22 (FreeStyle Toshia 2 [place]) flash glucose scanning reader 01/09/22 10/08/22 (FreeStyle Toshia 2 [place]) aripiprazole 5 mg tablet (Abilify) 20 mg PO QAM 02/16/22 10/13/22 metformin 500 mg tablet 1,000 mg PO BID 02/16/22 10/13/22 semaglutide 0.25 mg or 0.5 mg (2 2 mg subcut QWEEK 02/16/22 10/13/22 mg/1.5 mL) subcutaneous pen injector (Ozempic) insulin glargine 100 unit/mL (3 See Rx Instructions subcut BID 03/09/22 10/13/22 mL) subcutaneous pen (Lantus Solostar U-100 Insulin) polyethylene glycol 3350 17 17 g PO BID PRN constipation #510 05/04/22 10/13/22 gram/dose oral powder (Miralax) grams sennosides 8.6 mg capsule (senna) 8.6 mg PO DAILY 05/06/22 10/13/22 diaper,brief,adult,disposable #60 ea 06/03/22 10/08/22 (Depend Underwear For Women XL) incontinence pad, liner, disp #40 ea 06/03/22 10/08/22 cholecalciferol (vitamin D3) 50 50 mcg PO DAILY #90 caps 06/17/22 10/13/22 mcg (2,000 unit) capsule empagliflozin 10 mg tablet 10 mg PO DAILY 06/25/22 10/13/22 insulin aspart U-100 100 unit/mL 1 sliding scale dose subcut TID 06/25/22 10/13/22 (3 mL) subcutaneous pen (Novolog FlexPen U-100 Insulin aspart) trazodone 300 mg tablet 300 mg PO QHS 07/06/22 10/13/22 cholecalciferol (vitamin D3) 1,250 1,250 mcg PO QWEEK #8 caps 07/07/22 10/13/22 mcg (50,000 unit) capsule metoprolol succinate 100 mg 100 mg PO HS #90 tabs 07/08/22 10/13/22 tablet,extended release 24 hr losartan 25 mg tablet See Rx Instructions .Route 08/04/22 10/13/22 .COMPLEX #90 tabs ziprasidone HCl 20 mg capsule 40 mg PO BID 08/05/22 10/08/22 (Geodon) blood sugar diagnostic (OneTouch #400 ea 08/17/22 10/08/22 Verio test strips) doxepin 6 mg tablet 6 mg PO QHS PRN sleep #90 tabs 08/17/22 10/13/22 glucose 4 gram chewable tablet 4 g PO Q10MIN PRN hypoglycemia 08/17/22 10/13/22 (Dex4 Glucose) #100 tabs lancets (OneTouch UltraSoft #400 ea 08/17/22 10/08/22 Lancets) norethindrone acetate 5 mg tablet 10 mg PO TID 10/29/22 furosemide 40 mg tablet 40 mg PO QAM #90 tabs 11/09/22 ferrous gluconate 324 mg (38 mg See Rx Instructions .Route 11/16/22 iron) tablet .COMPLEX #180 tabs Previous Rx's Medication Instructions Recorded polyethylene glycol 3350 17 17 g PO BID PRN constipation #510 05/04/22 gram/dose oral powder (Miralax) grams diaper,brief,adult,disposable #60 ea 06/03/22 (Depend Underwear For Women XL) incontinence pad, liner, disp #40 ea 06/03/22 cholecalciferol (vitamin D3) 50 50 mcg PO DAILY #90 caps 06/17/22 mcg (2,000 unit) capsule cholecalciferol (vitamin D3) 1,250 1,250 mcg PO QWEEK #8 caps 07/07/22 mcg (50,000 unit) capsule metoprolol succinate 100 mg 100 mg PO HS #90 tabs 07/08/22 tablet,extended release 24 hr losartan 25 mg tablet See Rx Instructions .Route 08/04/22 .COMPLEX #90 tabs blood sugar diagnostic (OneTouch #400 ea 08/17/22 Verio test strips) doxepin 6 mg tablet 6 mg PO QHS PRN sleep #90 tabs 08/17/22 glucose 4 gram chewable tablet 4 g PO Q10MIN PRN hypoglycemia 08/17/22 (Dex4 Glucose) #100 tabs lancets (OneTouch UltraSoft #400 ea 08/17/22 Lancets) furosemide 40 mg tablet 40 mg PO QAM #90 tabs 11/09/22 ferrous gluconate 324 mg (38 mg See Rx Instructions .Route 11/16/22 iron) tablet .COMPLEX #180 tabs Allergies Allergy/AdvReac Type Severity Reaction Status Date / Time mushrooms Allergy Unknown rash Uncoded 10/29/22 11:06 General Stated Complaint: GenMedical ALEKSANDR: 2 Review of Systems Narrative: Review of Systems Constitutional: Lightheadedness Eyes: negative ENT: negative Cardiovascular: negative Respiratory: negative Gastrointestinal: Decreased appetite : negative Musculoskeletal: negative Skin: negative Neurologic: negative Psych: negative PFSH All Active Problems (Updated 01/05/23 @ 13:43 by Sadiq Gallegos MD) Hypoglycemia (Acute) Long-term insulin use (Acute) Schizoaffective disorder, unspecified (Acute) Benign essential hypertension (Acute) Menorrhagia (Chronic ~2021) Managed with IUD & norethidrone Insomnia (Acute ~07/2022) Constipation by delayed colonic transit (Chronic) Senna Class 3 severe obesity without serious comorbidity with body mass index (BMI) of 60.0 to 69.9 in adult (Acute) Hypothyroid (Chronic) [facility] Schizoaffective disorder, bipolar type (Chronic) [facility] PTSD (post-traumatic stress disorder) (Chronic) [facility] Morbid obesity (Chronic) BMI >60, Class 3 severe obesity Obstructive sleep apnea (adult) (pediatric) (Chronic ~2007) C-PAP; [facility] Sleep Medicine T2DM (type 2 diabetes mellitus) (Chronic ~2010) [place]; [facility] Endo Goal: <7% Dependent for transportation (Chronic) RCT Heart failure with preserved ejection fraction (Acute) Severe nonproliferative diabetic retinopathy (Chronic ~10/2021) Major depressive disorder, single episode, mild (Acute 05/11/21) Onychauxis (Acute) [facility] Podiatry Vitamin D deficiency (Acute ~02/2022) Medical History (Updated 01/05/23 @ 13:43 by Sadiq Gallegos MD) Abnormal CAT scan abscess at right gluteal area/coccyx, early osteomyelitis? Cardiomegaly Coagulopathy (~09/2021) ?[facility]; [facility] [place] Heme consult NEG Diabetic macular edema (~10/2021) Dissociative identity disorder (~2014) Hypoglycemia associated with diabetes (~10/2021) Iron deficiency anemia due to chronic blood loss Menorrhagia with irregular cycle IUD placed at [facility] [facility] Feb 2022, normal endo bx. Bleeding improved. On Northindrone 5mg BID Mixed hyperlipidemia Papilledema (~11/2021) Plantar fasciitis Surgical History (Updated 11/16/22 @ 17:15 by Lia Pearson NP) Status post embolization of uterine artery (~09/2022) [facility] [facility] 10/13/22; s/p vaginal/uterine hemorrhage Family History Father Diabetes Alcohol use disorder Mother Seizure disorder Other Factor VIII (functional) deficiency Fibroids Social History Smoking/Tobacco Use Status: Never Second Hand Exposure: No Smoking risk assessment performed?: Yes Alcohol Intake: former Drug use: Current Sobriety Substance use type: marijuana Adopted: Yes Caregiver/Support person: No Foster care: Yes Household members: none Housing: apartment Number of Children: 0 Communication Needs: None Education Level: college Details: associate's degree Do you need help understanding health information?: Never current occupation: [employer] Pets and animals: No Sexually active: No Do you think of yourself as: ??asexual Current gender identity: female What is your relationship status?: never How often do you talk on the phone with friends or family?: three or more times per week How often do you get together with friends or relatives?: never Do you belong to any clubs or organized social groups?: no Panel score (0-1 are the most socially isolated patients): 1 What type of physical activity do you participate in: walking Duration: < 15 minutes/day Frequency: 1-2 times per week Vane/Zoroastrian: None Special vane needs: No Seatbelt use: sometimes Helmet use: No Drive intox or ride w/intox cdl truck driver: No Do you feel safe at home: Yes Do you feel safe in your relationship?: Yes Female Reproductive History Menstrual Age of Menarche: 13 Duration of menses: >10 days control method: none History History 0 Para Hx # Term Pregnancies Multiple births Hx # Pregnancies Ectopic pregnancies AB induced Hx Number of Living Children AB spontaneous Exam Narrative Exam Narrative: Physical Examination General: alert, awake, cooperative, resting comfortably, no acute distress HEENT: normocephalic, atraumatic; PERRL, EOM intact, conjunctiva normal; no nasal discharge; slight drying of oral mucosa Neck: supple, trachea midline; full ROM Chest: normal to inspection Respiratory: normal respiratory effort, speaking in full sentences, clear to auscultation, no wheezing, rales or rhonchi Cardiac: Tachycardia, regular rhythm, S1S2 intact, no murmurs rubs or gallops GI: abdomen soft, non-tender, non-distended; no palpable mass or hepatosplenomegaly Skin: no lesions, rashes or trauma appreciated Neuro: AAOx3, normal speech, moving all extremities Psych: Appropriate mood and affect Course Vital Signs Vital signs: Vital Signs Temperature 36.8 C 01/05/23 10:02 Pulse 120 H 01/05/23 10:02 Respiratory Rate 24 01/05/23 10:02 Blood Pressure 86/58 L 01/05/23 10:02 Pulse Oximetry 97 01/05/23 10:02 Temperature 36.8 C 01/05/23 10:02 Pulse 120 H 01/05/23 10:02 Respiratory Rate 24 01/05/23 10:02 Blood Pressure 86/58 L 01/05/23 10:02 Blood Pressure Position Sitting 01/05/23 10:02 Pulse Oximetry 97 01/05/23 10:02 Oxygen Delivery Method Room Air 01/05/23 10:02 Oxygen Flow Rate 0 01/05/23 10:02 Lab/Test Results Lab/Test Results: 01/05/23 10:18 Blood Blood Culture - Pending 01/05/23 10:18 Blood Blood Culture - Pending
[2023-01-05] MEDS: Ondansetron 4 MG/2 ML VIAL IVP (10:30)
[2023-01-05] MEDS: Normal Saline 1,000 ML 1000 ML IV (10:30)
[2023-01-05 10:36] LABS: BE (Venous) -2 mmol/L (-2-3); HCO3 (Venous) 25 mmol/L (23-28); O2 Sat (Venous) 54 %; TCO2 (Venous) 22 mmol/L (24-29); pCO2 (Venous) 47 mmHg (41-51); pH (Venous) 7.33 (7.31-7.41); pO2 (Venous) 32 mmHg
[2023-01-05 10:38] LABS: Abs Immature Grans 0.03 10^3/uL (0.0-0.06); Absolute Basophil Count 0.01 10^3/uL (0.0-0.2); Absolute Eosinophil Count 0.18 10^3/uL (0.0-0.7); Absolute Lymphocyte Count 1.44 10^3/uL (1.2-3.4); Absolute Monocyte Count 0.16 10^3/uL (0.1-0.8); Absolute Neutrophil Count 3.94 10^3/uL (1.2-6.7); Basophils % 0.2; Eosinophils % 3.1; HGB 14.3 g/dL (11.2-15.7); Immature Grans % 0.5; MCH 26.7 pg (27.0-33.0); MCHC 31.8 % (32.0-36.0); MCV 84 fL (80-95); Monocytes % 2.8; Neutrophils % 68.4; Platelet Count 410 10^3/uL (130-400); RBC 5.36 10^6/uL (3.93-5.22); RDW 14.9 % (11.7-14.6); RDW-SD 45.1 fL; WBC 5.76 10^3/uL (4.4-10.8)
[2023-01-05] MEDS: Lactated Ringers 1,000 ML 1000 ML IV (10:45)
[2023-01-05 10:51] LABS: INR 0.9 (0.9-1.1); PTT Activated 23.4 sec (21.5-31.9); Prothrombin Time 9.5 sec (9.3-11.0)
[2023-01-05] MEDS: Dextrose 50%-Water 25 GM/50 ML SYR IVP ×4 (11:02→19:09)
[2023-01-05 11:07] LABS: ALT 60 U/L (14-59); AST 31 U/L (15-37); Albumin 3.4 g/dL (3.4-5.0); Alkaline Phosphatase 65 U/L (46-116); Anion Gap 9.6 mmol/L (3-11); BUN 13 mg/dL (7-18); Bilirubin, Total 0.3 mg/dL (0.2-1.0); CO2 24.4 mmol/L (21.0-32.0); CREATININE 1.4 mg/dL (0.55-1.02); Calcium 9.3 mg/dL (8.5-10.1); Chloride 102 mmol/L (98-107); Creatine Kinase 82 U/L (26-192); Glucose 57 mg/dL (74-106); Lipase 63 U/L (16-77); Magnesium 1.8 mg/dL (1.8-2.4); NT-proBNP 76 pg/mL (<300); Potassium 3.6 mmol/L (3.5-5.1); Sodium 136 mmol/L (136-145); TSH (W/Ref FT4) 0.99 uIU/mL (0.36-3.74); Total Protein 8.3 g/dL (6.4-8.2); Troponin I < 50 ng/L (<or=60)
[2023-01-05 11:45] LABS: COVID-19 PCR Negative (Negative); Influenza A PCR Negative (Negative); Influenza B PCR Negative (Negative); RSV PCR Negative (Negative)
[2023-01-05 11:48] LABS: Source Nasopharynx
--- NOTE | 2023-01-05 12:00 | DI.RAD_ITS ---
Exam(s) XR PORTABLE CHEST AP EXAM: XR PORTABLE CHEST AP CLINICAL HISTORY: feeling unwell. TECHNIQUE: 2D digital imaging was performed. COMPARISON: CR,XR XR CHEST 2V PA LATERAL from 06/16/2021 FINDINGS: Single AP portable view. Heart size is upper normal. The mediastinum is not widened. No obvious infiltrates nor obvious pleural effusions. No pulmonary edema. No pneumothorax. IMPRESSION: No acute pulmonary findings on this single AP portable view of the chest. DATA REPOSITORY: RADIATION DOSE DELIVERED:
[2023-01-05] MEDS: DEXTROSE 5%-0.9% SALINE 1,000 ML 125 ML IV (12:15)
[2023-01-05 12:36] LABS: Bilirubin Negative (Negative); Blood Moderate (Negative); Clarity Clear (Clear); Glucose >=1000 mg/dL (Negative); Ketones Negative (Negative); Leukocyte Esterase Negative (Negative); Nitrite Negative (Negative); Urobilinogen 0.2 mg/dL (Up to 0.2)
[2023-01-05 12:49] LABS: *AMPHETAMINES SCREEN URINE Negative (Negative); *BARBITURATES SCREEN URINE Negative (Negative); *BENZODIAZEPINES SCREEN URINE Negative (Negative); Cannabinoids THC Negative (Negative); Cocaine Screen,Urine Negative (Negative); METHADONE URINE SCREEN Negative (Negative); OPIATES URINE SCREEN Negative (Negative)
[2023-01-05 12:57] LABS: Bacteria Rare HPF (Negative); C & S Indicated? No; Casts Negative LPF (Negative); Crystals Negative HPF (Negative); Epithelial Cells Moderate HPF (Negative); Mucus Negative (Negative); WBC 0-2 HPF (0-5)
[2023-01-05 13:04] LABS: Tricyclic Antidepressants Positive (Negative)
[2023-01-05] MEDS: DEXTROSE 10%-WATER 500 ML 50 ML IV ×2 (13:30→20:50)
[2023-01-05 14:47] LABS: Troponin I < 50 ng/L (<or=60)
[2023-01-05] MEDS: Normal Saline Flush 10 ML SYR (17:02)
--- NOTE | 2023-01-05 17:20 | W.PM.HP.N ---
Date of service: 01/05/23 Time of Service: 18:42 Assessment and Plan Assessment and plan (1) Hypoglycemia: Status: Acute Assessment and plan: unclear as to etiology of her severe hypoglycemia. Supposedly her last dose of Lantus was on (16 units) and her last dose of Novolog was w/ a meal on Wednesday. Last Ozempic dose was . She says she has been on Ozempic since last year and her dose was increased to 2 mg in July. For now we are going to monitor glucose q1h until she remains over 100 x 3 readings then we can decrease her frequency to q4h, continue D10 until her glucose remains stable and she is tolerating oral carbs. I am not sure how we will adjust her meds upon discharge except to withold any Lantus and have her follow up w/ Dr. Velasco at [facility]. I did call Dr. Deneen Arguello, endocrine stone gluer for [facility] who reviewed the case and recommended the cosyntropin stimulation test to rule out adrenal insufficeincy. I spoke w/ our pharmacist and asked her to review her psychiatric meds for any causes for hypoglycemia. My understanding of most of the 2nd generation antipsychotics is they cause hyperglycemia not hypoglycemia. Critical care time spent interviewing and examining the patient, reviewing studies, discussing case with patient's nurse and consulting physicians was 60 minutes (2) T2DM (type 2 diabetes mellitus): Status: Chronic Assessment and plan: monitor q1h glucose until >100 x 3 hourly readings then decrease frequency of monitoring. continue D10 for now. 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 hold lasix for tonight. avoid excessive iv fluids. Qualifiers: Heart failure chronicity: acute on chronic Qualified Code(s): I50.33 - Acute on chronic diastolic (congestive) heart failure (4) Benign essential hypertension: Status: Acute (5) Hypothyroid: Status: Chronic Assessment and plan: TSH 0.99. Continue current levothyroxine dose to 100 mcg daily. Qualifiers: Hypothyroidism type: acquired Qualified Code(s): E03.9 - Hypothyroidism, unspecified (6) Schizoaffective disorder, bipolar type: Status: Chronic Assessment and plan: Continue Abilify, chlorpromazine, doxepin, and trazodone History of Present Illness History of Present Illness Chief Complaint: Hypoglycemia Narrative: 32-year-old female type II diabetic although she says that she has been diabetic since the age of 16 with diabetic complications including peripheral neuropathy and retinopathy and prior DKA. She is followed locally by her primary care provider [facility] internal medicine as well as patient's wine cellar stock clerk Dr. Velasco from [facility]. Patient states she has had labile blood sugars for years. She formally had problems with frequent DKA from her teenage years into her early 20s. However since 2017 she has had problems with frequent hypoglycemia. She has a complicated regimen that includes Ozempic, insulin aspart sliding scale Jardiance, and metformin. Patient's last dose of Ozempic was 4 days ago on Wednesday, January 01, 2023. She states she has been having frequent repetitive low blood sugars into the 40s despite intake of orange juice and glucose tablets. Patient states she has had depressed appetite for weeks to months. She just does not feel like eating. She was told by her wine cellar stock clerk that if she does not eat she should not take her insulin. However patient has continued to take her Jardiance and her metformin along with her Ozempic. Patient presented to the emergency department complaining of lightheadedness and weakness at home her blood sugar was in the 130s but in the triage area it was noted to be 80 she was found to be hypotensive and tachycardic on arrival. She was given IV fluids 2 L of crystalloid. She was given Zofran and labs were drawn and a chest x-ray and EKG was obtained. Blood sugar dropped into the 50s and again after a dose of dextrose 50% drop down into the 40s at which time she was started on D5 normal saline at 125 mL an hour and given additional dextrose 50%. When her blood sugar dropped down to 42 she was given another dose of dextrose 50% in her D5 normal saline was changed to dextrose 10% with normal saline at 50 cc an hour. Lites with Dr. Abby Warren call me for admission. Patient is now being admitted to the intensive care unit for treatment of severe refractory hypoglycemia. Although her wine cellar stock clerk is Dr. Velasco, at [facility], she is followed also by [facility] for evaluation for gastric bypass surgery to treat her morbid obesity. Her comorbitities include hypertension, morbid obesity, hypothyroidism, macular edema (see opthalmologist Dr. Dewey in [place]), meorrhagia (for which she had uterine embolization performed at [facility]) and HFPEF. Patient will be monitored overnight in the ICU while her glucose stabilizes. all her diabetic meds have been put on hold. We will get random cortisol level and perform a cosyntropin stimulation study w/ repeat cortisol levels 30 and 60 minutes after the ACTH is given. Review of Systems Constitutional Constitutional: Reports as per [facility] PFSH All Active Problems Hypoglycemia (Acute) Long-term insulin use (Acute) Schizoaffective disorder, unspecified (Acute) Benign essential hypertension (Acute) Menorrhagia (Chronic ~2021) Managed with IUD & norethidrone Insomnia (Acute ~07/2022) Constipation by delayed colonic transit (Chronic) Senna Class 3 severe obesity without serious comorbidity with body mass index (BMI) of 60.0 to 69.9 in adult (Acute) Hypothyroid (Chronic) [facility] Endo Schizoaffective disorder, bipolar type (Chronic) [facility] PTSD (post-traumatic stress disorder) (Chronic) [facility] Morbid obesity (Chronic) BMI >60, Class 3 severe obesity Obstructive sleep apnea (adult) (pediatric) (Chronic ~2007) C-PAP; [facility] Sleep Medicine T2DM (type 2 diabetes mellitus) (Chronic ~2010) [place]; [facility] Endo Goal: <7% Dependent for transportation (Chronic) RCT Heart failure with preserved ejection fraction (Acute) Severe nonproliferative diabetic retinopathy (Chronic ~10/2021) Major depressive disorder, single episode, mild (Acute 05/11/21) Onychauxis (Acute) [facility] Podiatry Vitamin D deficiency (Acute ~02/2022) Medical History Abnormal CAT scan abscess at right gluteal area/coccyx, early osteomyelitis? Cardiomegaly Coagulopathy (~09/2021) ?VWD; [facility] Heme consult NEG Diabetic macular edema (~10/2021) Dissociative identity disorder (~2014) Hypoglycemia associated with diabetes (~10/2021) Iron deficiency anemia due to chronic blood loss Menorrhagia with irregular cycle IUD placed at [facility] Feb 2022, normal endo bx. Bleeding improved. On Northindrone 5mg BID Mixed hyperlipidemia Papilledema (~11/2021) Plantar fasciitis Surgical History Status post embolization of uterine artery (~09/2022) [facility] 10/13/22; s/p vaginal/uterine hemorrhage Family History Father Diabetes Alcohol use disorder Mother Seizure disorder Other Factor VIII (functional) deficiency Fibroids Social History Smoking/Tobacco Use Status: Never Second Hand Exposure: No Smoking risk assessment performed?: Yes Alcohol Intake: former Drug use: Current Sobriety Substance use type: marijuana Adopted: Yes Caregiver/Support person: No Foster care: Yes Household members: none Housing: apartment Number of Children: 0 Communication Needs: None Education Level: college Details: associate's degree Do you need help understanding health information?: Never current occupation: [employer] Pets and animals: No Sexually active: No Do you think of yourself as: ??asexual Current gender identity: female What is your relationship status?: never How often do you talk on the phone with friends or family?: three or more times per week How often do you get together with friends or relatives?: never Do you belong to any clubs or organized social groups?: no Panel score (0-1 are the most socially isolated patients): 1 What type of physical activity do you participate in: walking Duration: < 15 minutes/day Frequency: 1-2 times per week Vane/Rastafarian: None Special vane needs: No Seatbelt use: sometimes Helmet use: No Drive intox or ride w/intox drivers' cash clerk: No Do you feel safe at home: Yes Do you feel safe in your relationship?: Yes Female Reproductive History Menstrual Age of Menarche: 13 Duration of menses: >10 days control method: none History History 0 Para Hx # Term Pregnancies Multiple births Hx # Pregnancies Ectopic pregnancies AB induced Hx Number of Living Children AB spontaneous Meds Allergies and Home Medications Allergies Allergy/AdvReac Type Severity Reaction Status Date / Time mushrooms Allergy Unknown rash Uncoded 10/29/22 11:06 Home Medications Medication Instructions Recorded Confirmed Type prazosin 5 mg capsule (Minipress) 5 mg PO DAILY 06/16/21 01/05/23 History gabapentin 300 mg capsule 300 mg PO TID 06/20/21 01/05/23 History levothyroxine 200 mcg tablet 200 mcg PO DAILY 06/20/21 01/05/23 History pen needle, diabetic 32 gauge x #50 ea 06/20/21 01/05/23 History (Pen Needle) rosuvastatin 40 mg tablet (Crestor) 40 mg PO DAILY 11/03/21 01/05/23 History flash glucose scanning reader 11/24/21 01/05/23 History (FreeStyle Toshia 2 [place]) flash glucose scanning reader 01/09/22 01/05/23 History (FreeStyle Toshia 2 [place]) aripiprazole 5 mg tablet (Abilify) 20 mg PO QAM 02/16/22 01/05/23 History semaglutide 0.25 mg or 0.5 mg (2 2 mg subcut QWEEK 02/16/22 01/05/23 History mg/1.5 mL) subcutaneous pen injector (Ozempic) insulin glargine 100 unit/mL (3 See Rx Instructions subcut BID 03/09/22 01/05/23 History mL) subcutaneous pen (Lantus Solostar U-100 Insulin) polyethylene glycol 3350 17 17 g PO BID PRN constipation #510 05/04/22 01/05/23 Rx gram/dose oral powder (Miralax) grams sennosides 8.6 mg capsule (senna) 8.6 mg PO DAILY 05/06/22 01/05/23 History diaper,brief,adult,disposable #60 ea 06/03/22 01/05/23 Rx (Depend Underwear For Women XL) incontinence pad, liner, disp #40 ea 06/03/22 01/05/23 Rx cholecalciferol (vitamin D3) 50 50 mcg PO DAILY #90 caps 06/17/22 01/05/23 Rx mcg (2,000 unit) capsule empagliflozin 10 mg tablet 10 mg PO DAILY 06/25/22 01/05/23 History insulin aspart U-100 100 unit/mL 1 sliding scale dose subcut TID 06/25/22 01/05/23 History (3 mL) subcutaneous pen (Novolog FlexPen U-100 Insulin aspart) trazodone 300 mg tablet 300 mg PO QHS 07/06/22 01/05/23 History cholecalciferol (vitamin D3) 1,250 1,250 mcg PO QWEEK #8 caps 07/07/22 01/05/23 Rx mcg (50,000 unit) capsule metoprolol succinate 100 mg 100 mg PO HS #90 tabs 07/08/22 01/05/23 Rx tablet,extended release 24 hr losartan 25 mg tablet See Rx Instructions .Route 08/04/22 01/05/23 Rx .COMPLEX #90 tabs blood sugar diagnostic (OneTouch #400 ea 08/17/22 01/05/23 Rx Verio test strips) doxepin 6 mg tablet 6 mg PO QHS PRN sleep #90 tabs 08/17/22 01/05/23 Rx glucose 4 gram chewable tablet 4 g PO Q10MIN PRN hypoglycemia 08/17/22 01/05/23 Rx (Dex4 Glucose) #100 tabs lancets (OneTouch UltraSoft #400 ea 08/17/22 01/05/23 Rx Lancets) norethindrone acetate 5 mg tablet 5 mg PO BID 10/29/22 01/05/23 History furosemide 40 mg tablet 40 mg PO QAM #90 tabs 11/09/22 01/05/23 Rx ferrous gluconate 324 mg (38 mg See Rx Instructions .Route 11/16/22 01/05/23 Rx iron) tablet .COMPLEX #180 tabs chlorpromazine 200 mg tablet 200 mg PO HS 01/05/23 01/05/23 History Exam Narrative Exam Narrative: Morbidly obese cushingoid appearing -Spanish female sitting up in her bed. She is alert but appears to be lethargic with proptosis otherwise extraocular motions intact no scleral icterus Neck is obese difficult to discern any JVD normal carotid pulses no palpable masses Lungs are clear to auscultation Heart is regular rate and rhythm Abdomen is obese soft nontender Extremities are obese no pitting edema feet with calluses over her heels and the MTP joints of her feet but no open sores or ulcers. pedal pulses intact Neuro: no focal motor or sensory deficits, despite her having Results Labs 01/05/23 10:25 01/05/23 10:25 Labs: Laboratory Results - last 24 hr 01/05/23 01/05/23 01/05/23 10:25 10:25 10:25 WBC 5.76 RBC 5.36 H Hgb 14.3 Hct 45.0 MCV 84 MCH 26.7 L MCHC 31.8 L RDW 14.9 H Plt Count 410 H MPV 11.0 Immature Gran % 0.5 Neutrophils % 68.4 Lymphocytes % 25.0 Monocytes % 2.8 Eosinophils % 3.1 Basophils % 0.2 Nucleated RBC % 0.0 Absolute Neutrophils 3.94 Absolute Lymphocytes 1.44 Absolute Monocytes 0.16 Absolute Eosinophils 0.18 Absolute Basophils 0.01 PT INR APTT VBG pH 7.33 VBG pCO2 47 VBG pO2 32 VBG HCO3 25 VBG Total CO2 22 L VBG O2 Saturation 54 VBG Base Excess -2 Sodium 136 Potassium 3.6 Chloride 102 Carbon Dioxide 24.4 Anion Gap 9.6 BUN 13 Creatinine 1.4 H Est GFR (CKD-EPI 2020) 51.90 Glucose 57 L Calcium 9.3 Magnesium 1.8 Total Bilirubin 0.3 AST 31 ALT 60 H Alkaline Phosphatase 65 Creatine Kinase 82 Troponin I < 50 NT-Pro-B Natriuret Pep 76 Total Protein 8.3 H Albumin 3.4 Lipase 63 TSH 0.99 Urine Color Urine Clarity Urine pH Ur Specific [place] Urine Protein Urine Ketones Urine Blood Urine Nitrite Urine Bilirubin Urine Urobilinogen Ur Leukocyte Esterase Urine RBC Urine WBC Ur Epithelial Cells Urine Crystals Urine Bacteria Urine Casts Urine Mucus Ur Culture Indicated? Urine Glucose Urine Opiates Screen Urine Methadone Screen Ur Barbiturates Screen Ur Tricyclics Screen Ur Amphetamines Screen U Benzodiazepines Scrn Urine Cocaine Screen Ur THC Screen COVID-19 Source SARS-CoV-2 (PCR) Influenza Type A (PCR) Influenza Type B (PCR) RSV (PCR) 01/05/23 01/05/23 01/05/23 10:25 11:01 12:28 WBC RBC Hgb Hct MCV MCH MCHC RDW Plt Count MPV Immature Gran % Neutrophils % Lymphocytes % Monocytes % Eosinophils % Basophils % Nucleated RBC % Absolute Neutrophils Absolute Lymphocytes Absolute Monocytes Absolute Eosinophils Absolute Basophils PT 9.5 INR 0.9 APTT 23.4 VBG pH VBG pCO2 VBG pO2 VBG HCO3 VBG Total CO2 VBG O2 Saturation VBG Base Excess Sodium Potassium Chloride Carbon Dioxide Anion Gap BUN Creatinine Est GFR (CKD-EPI 2020) Glucose Calcium Magnesium Total Bilirubin AST ALT Alkaline Phosphatase Creatine Kinase Troponin I NT-Pro-B Natriuret Pep Total Protein Albumin Lipase TSH Urine Color Urine Clarity Urine pH Ur Specific [place] Urine Protein Urine Ketones Urine Blood Urine Nitrite Urine Bilirubin Urine Urobilinogen Ur Leukocyte Esterase Urine RBC Urine WBC Ur Epithelial Cells Urine Crystals Urine Bacteria Urine Casts Urine Mucus Ur Culture Indicated? Urine Glucose Urine Opiates Screen Negative Urine Methadone Screen Negative Ur Barbiturates Screen Negative Ur Tricyclics Screen Positive A Ur Amphetamines Screen Negative U Benzodiazepines Scrn Negative Urine Cocaine Screen Negative Ur THC Screen Negative COVID-19 Source Nasopharynx SARS-CoV-2 (PCR) Negative Influenza Type A (PCR) Negative Influenza Type B (PCR) Negative RSV (PCR) Negative 01/05/23 01/05/23 12:28 14:17 WBC RBC Hgb Hct MCV MCH MCHC RDW Plt Count MPV Immature Gran % Neutrophils % Lymphocytes % Monocytes % Eosinophils % Basophils % Nucleated RBC % Absolute Neutrophils Absolute Lymphocytes Absolute Monocytes Absolute Eosinophils Absolute Basophils PT INR APTT VBG pH VBG pCO2 VBG pO2 VBG HCO3 VBG Total CO2 VBG O2 Saturation VBG Base Excess Sodium Potassium Chloride Carbon Dioxide Anion Gap BUN Creatinine Est GFR (CKD-EPI 2020) Glucose Calcium Magnesium Total Bilirubin AST ALT Alkaline Phosphatase Creatine Kinase Troponin I < 50 NT-Pro-B Natriuret Pep Total Protein Albumin Lipase TSH Urine Color Yellow Urine Clarity Clear Urine pH 6.0 Ur Specific [place] 1.010 Urine Protein 100 H Urine Ketones Negative Urine Blood Moderate H Urine Nitrite Negative Urine Bilirubin Negative Urine Urobilinogen 0.2 Ur Leukocyte Esterase Negative Urine RBC 10-20 H Urine WBC 0-2 Ur Epithelial Cells Moderate Urine Crystals Negative Urine Bacteria Rare Urine Casts Negative Urine Mucus Negative Ur Culture Indicated? No Urine Glucose >=1000 H Urine Opiates Screen Urine Methadone Screen Ur Barbiturates Screen Ur Tricyclics Screen Ur Amphetamines Screen U Benzodiazepines Scrn Urine Cocaine Screen Ur THC Screen COVID-19 Source SARS-CoV-2 (PCR) Influenza Type A (PCR) Influenza Type B (PCR) RSV (PCR) Last Vital Signs Temp 37.3 C 01/05/23 15:27 Pulse 113 H 01/05/23 15:30 Resp 22 01/05/23 15:40 BP 132/84 01/05/23 15:30 Pulse Ox 97 01/05/23 15:40 Time Spent Time spent with Patient: 55-74 minutes Time was spent: preparing to see the patient(eg.review tests), obtaining and/or reviewing separately otained hiistory, ordering medications,tests, procedures, referring, communicating with other health wound care center consultant (Nursing staff, pharmacist, Dr. Deneen Arguello (wine cellar stock clerk [facility])), indepentently interpreting results, counseling the patient and care coordination
[2023-01-05] MEDS: Cosyntropin 0.25 MG VIAL IVP (18:42)
[2023-01-05 21:45] LABS: HCG Qual (Serum) Negative
[2023-01-05] MEDS: traZODone 100 MG TAB 300 MG PO (22:02)
[2023-01-05] MEDS: Rosuvastatin 20 MG TAB 40 MG PO (22:02)
[2023-01-05] MEDS: Prazosin 5 MG CAP PO (22:02)
[2023-01-05] MEDS: Norethindrone 5 MG TAB PO (22:02)
[2023-01-05] MEDS: Metoprolol CR 100 MG TABCR PO (22:03)
[2023-01-05] MEDS: Gabapentin 300 MG CAP PO (22:03)
[2023-01-05] MEDS: Dextrose 50%-Water 25 GM/50 ML SYR (22:11)
[2023-01-05] MEDS: Ferrous Gluconate 324 MG TAB PO (22:36)
[2023-01-06] VITALS (89 sets, daily range): BP systolic 112–159; BP diastolic 74–123; PULSE 84–115; RESP 7–26; TEMP 36.6–36.9; O2SAT 91–98
[2023-01-06 07:00] LABS: Hemoglobin A1C 6.7 % (<5.7)
[2023-01-06 07:03] LABS: Anion Gap 9.7 mmol/L (3-11); BUN 13 mg/dL (7-18); CO2 22.3 mmol/L (21.0-32.0); CREATININE 1.1 mg/dL (0.55-1.02); Calcium 8.5 mg/dL (8.5-10.1); Chloride 103 mmol/L (98-107); Estimated GFR 69.32 (mL/min/1.73m2); Glucose 102 mg/dL (74-106); Potassium 4.1 mmol/L (3.5-5.1); Sodium 135 mmol/L (136-145)
[2023-01-06] MEDS: Levothyroxine 200 MCG TAB PO (07:03)
--- NOTE | 2023-01-06 08:52 | INITIAL_ITS ---
Date of service: 01/06/23 Time of Service: 09:09 Care Management Initial Assmt Initial Assessment REASON FOR HOSPITALIZATION:: hypoglycemia PREVIOUS FUNCTIONAL STATUS/SOCIAL/FAMILY SUPPORTS:: Zenia lives in [facility], alone. She grew up in [place], and moved to [place] for a job. She is currently unemployed due to her medical needs. She has been working very hard to become eligible for bariatric surgery, which she hopes to schedule soon. She has family in [place] and [place], and supportive friends in the area. She is independent at baseline. CURRENT FUNCTIONAL STATUS:: Zenia was sitting up on the edge of her bed when CM met with her. She was fully dressed in her own clothes, and stated that she is hoping that she can return home today. Per report, if her blood sugars remain stable, she may be able to discharge. She stated that she has a PCP appointment tomorrow morning that she is hoping to make it to, as it is associated with her bariatric surgery. She reports that she is independent in the community, and does not require any support at this time. CM will continue to follow. ADVANCE DIRECTIVES:: Not on file; CM will offer forms. Has patient been provided with info about the portal/API?: Yes Did the patient sign up for the portal?: Yes CODE STATUS:: Full Code INSURANCE COVERAGE / FINANCIAL ISSUES:: [facility] CURRENT HOME/COMMUNITY SERVICES/EQUIPMENT:: No current services or equipment PRIMARY CARE PHYSICIAN:: Lia Pearson POTENTIAL DISCHARGE NEEDS:: Follow up appointments PATIENT/FAMILY EDUCATION NEEDS:: Review discharge instructions and limitations, discussion of self care needs including ask me three. ANTICIPATED BARRIERS TO DISCHARGE:: None identified TRANSPORTATION:: via private vehicle PLAN:: Anticipate Zenia will return home once she is medically cleared. She will be transported home via private vehicle by a friend. She will follow up with her PCP and discharge plan of care. CM will continue to follow. PFSH All Active Problems Hypoglycemia (Acute) Long-term insulin use (Acute) Schizoaffective disorder, unspecified (Acute) Benign essential hypertension (Acute) Menorrhagia (Chronic ~2021) Managed with IUD & norethidrone Insomnia (Acute ~07/2022) Constipation by delayed colonic transit (Chronic) Senna Class 3 severe obesity without serious comorbidity with body mass index (BMI) of 60.0 to 69.9 in adult (Acute) Hypothyroid (Chronic) [facility] Endo Schizoaffective disorder, bipolar type (Chronic) [facility] PTSD (post-traumatic stress disorder) (Chronic) [facility] Morbid obesity (Chronic) BMI >60, Class 3 severe obesity Obstructive sleep apnea (adult) (pediatric) (Chronic ~2007) C-PAP; [facility] Sleep Medicine T2DM (type 2 diabetes mellitus) (Chronic ~2010) [place]; [facility] Endo Goal: <7% Dependent for transportation (Chronic) RCT Heart failure with preserved ejection fraction (Acute) Severe nonproliferative diabetic retinopathy (Chronic ~10/2021) Major depressive disorder, single episode, mild (Acute 05/11/21) Onychauxis (Acute) [facility] Podiatry Vitamin D deficiency (Acute ~02/2022) Medical History Abnormal CAT scan abscess at right gluteal area/coccyx, early osteomyelitis? Cardiomegaly Coagulopathy (~09/2021) ?VWD; [facility] Heme consult NEG Diabetic macular edema (~10/2021) Dissociative identity disorder (~2014) Hypoglycemia associated with diabetes (~10/2021) Iron deficiency anemia due to chronic blood loss Menorrhagia with irregular cycle IUD placed at [facility] Feb 2022, normal endo bx. Bleeding improved. On Northindrone 5mg BID Mixed hyperlipidemia Papilledema (~11/2021) Plantar fasciitis Surgical History Status post embolization of uterine artery (~09/2022) [facility] 10/13/22; s/p vaginal/uterine hemorrhage Family History Father Diabetes Alcohol use disorder Mother Seizure disorder Other Factor VIII (functional) deficiency Fibroids Social History Smoking/Tobacco Use Status: Never Second Hand Exposure: No Smoking risk assessment performed?: Yes Alcohol Intake: former Drug use: Current Sobriety Substance use type: marijuana Adopted: Yes Caregiver/Support person: No Foster care: Yes Household members: none Housing: apartment Number of Children: 0 Communication Needs: None Education Level: college Details: associate's degree Do you need help understanding health information?: Never current occupation: [employer] Pets and animals: No Sexually active: No Do you think of yourself as: ??asexual Current gender identity: female What is your relationship status?: never How often do you talk on the phone with friends or family?: three or more times per week How often do you get together with friends or relatives?: never Do you belong to any clubs or organized social groups?: no Panel score (0-1 are the most socially isolated patients): 1 What type of physical activity do you participate in: walking Duration: < 15 minutes/day Frequency: 1-2 times per week Vane/Bahai: None Special vane needs: No Seatbelt use: sometimes Helmet use: No Drive intox or ride w/intox truck driver heavy: No Do you feel safe at home: Yes Do you feel safe in your relationship?: Yes Female Reproductive History Menstrual Age of Menarche: 13 Duration of menses: >10 days control method: none History History 0 Para Hx # Term Pregnancies Multiple births Hx # Pregnancies Ectopic pregnancies AB induced Hx Number of Living Children AB spontaneous
[2023-01-06] MEDS: ARIPiprazole 5 MG TAB 20 MG PO (09:40)
[2023-01-06] MEDS: Gabapentin 300 MG CAP PO ×2 (09:41→14:10)
[2023-01-06] MEDS: Ferrous Gluconate 324 MG TAB PO (09:41)
[2023-01-06] MEDS: Losartan 25 MG TAB PO (09:41)
[2023-01-06] MEDS: Cholecalciferol (Vitamin D3) 1,000 UNIT TAB 2000 UNITS PO (09:41)
[2023-01-06] MEDS: Norethindrone 5 MG TAB PO (09:41)
--- NOTE | 2023-01-06 10:21 | PGE_ITS ---
Date of Service Date of service: 01/06/23 Time of Service: 10:21 Assessment and Plan Assessment and plan (1) Hypoglycemia: Status: Acute Assessment and plan: dc D10 drip and monitor glucose readings q4h, if she has couple of readings that remain over 100 then I think she will be safe to go home this afternoon Professional time spent interviewing and examining patient, discussion of goals of care with hospital team (care management, nursing and consulting professionals) was 30 minutes. (2) T2DM (type 2 diabetes mellitus): Status: Chronic Assessment and plan: I advised patient to follow up w/ her truck driver rubbish collector at [facility] upon discharge. I would advise against use of Lantus given her prolonged hypoglycemia. she should discuss w/ Dr. Velasco about decreasing her Ozempic dose but I will leave that the patient and her truck driver rubbish collector. Qualifiers: Diabetes mellitus termite renewal inspector insulin use: with jail use Diabetes mellitus complication status: with ophthalmic complications Diabetes mellitus complication detail: with diabetic macular edema, resolved following treatment Laterality: unspecified laterality Qualified Code(s): E11.37X9 - Type 2 diabetes mellitus with diabetic macular edema, resolved following treatment, unspecified eye; Z79.4 - termination clerk (current) use of insulin (3) Heart failure with preserved ejection fraction: Status: Acute Assessment and plan: continue her losartan, prazosin, w/ BP parameters for holding. Resume her lasix today. Qualifiers: Heart failure chronicity: acute on chronic Qualified Code(s): I50.33 - Acute on chronic diastolic (congestive) heart failure (4) Benign essential hypertension: Status: Acute (5) Hypothyroid: Status: Chronic Assessment and plan: TSH 0.99. Continue current levothyroxine dose to 100 mcg daily. Qualifiers: Hypothyroidism type: acquired Qualified Code(s): E03.9 - Hypothyroidism, unspecified (6) Schizoaffective disorder, bipolar type: Status: Chronic Assessment and plan: Continue Abilify, chlorpromazine, doxepin, and trazodone Subjective Subjective Interval history since last seen: No 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 spells overnight however her D10 drip is still going at 50 mL/hr. I told the patient that if she is eating ok and her glucose remains above 80 throught out the day while off her D10 drip, then she can return home. She states that her norethrindrone dose is 10 mg tid. She has been getting 5 mg bid. I asked pharmacy to check into this. Exam Narrative Exam Narrative: Zenia is alert and oriented and lying in her bed looking at her phone. She is in no acute distress. She states that she ate all of her breakfast Objective Last Vital Signs Temp 36.6 C 01/06/23 04:00 Pulse 94 H 01/06/23 05:51 Resp 16 01/06/23 05:51 BP 152/92 H 01/06/23 05:32 Pulse Ox 97 01/06/23 05:51 Laboratory Results - last 24 hr 01/05/23 01/05/23 01/05/23 10:25 10:25 10:25 WBC 5.76 RBC 5.36 H Hgb 14.3 Hct 45.0 MCV 84 MCH 26.7 L MCHC 31.8 L RDW 14.9 H Plt Count 410 H MPV 11.0 Immature Gran % 0.5 Neutrophils % 68.4 Lymphocytes % 25.0 Monocytes % 2.8 Eosinophils % 3.1 Basophils % 0.2 Nucleated RBC % 0.0 Absolute Neutrophils 3.94 Absolute Lymphocytes 1.44 Absolute Monocytes 0.16 Absolute Eosinophils 0.18 Absolute Basophils 0.01 PT INR APTT VBG pH 7.33 VBG pCO2 47 VBG pO2 32 VBG HCO3 25 VBG Total CO2 22 L VBG O2 Saturation 54 VBG Base Excess -2 Sodium 136 Potassium 3.6 Chloride 102 Carbon Dioxide 24.4 Anion Gap 9.6 BUN 13 Creatinine 1.4 H Est GFR (CKD-EPI 2020) 51.90 Glucose 57 L Hemoglobin A1c Calcium 9.3 Magnesium 1.8 Total Bilirubin 0.3 AST 31 ALT 60 H Alkaline Phosphatase 65 Creatine Kinase 82 Troponin I < 50 NT-Pro-B Natriuret Pep 76 Total Protein 8.3 H Albumin 3.4 Lipase 63 TSH 0.99 Serum HCG, Qual Urine Color Urine Clarity Urine pH Ur Specific [place] Urine Protein Urine Ketones Urine Blood Urine Nitrite Urine Bilirubin Urine Urobilinogen Ur Leukocyte Esterase Urine RBC Urine WBC Ur Epithelial Cells Urine Crystals Urine Bacteria Urine Casts Urine Mucus Ur Culture Indicated? Urine Glucose Urine Opiates Screen Urine Methadone Screen Ur Barbiturates Screen Ur Tricyclics Screen Ur Amphetamines Screen U Benzodiazepines Scrn Urine Cocaine Screen Ur THC Screen COVID-19 Source SARS-CoV-2 (PCR) Influenza Type A (PCR) Influenza Type B (PCR) RSV (PCR) 01/05/23 01/05/23 01/05/23 10:25 11:01 12:28 WBC RBC Hgb Hct MCV MCH MCHC RDW Plt Count MPV Immature Gran % Neutrophils % Lymphocytes % Monocytes % Eosinophils % Basophils % Nucleated RBC % Absolute Neutrophils Absolute Lymphocytes Absolute Monocytes Absolute Eosinophils Absolute Basophils PT 9.5 INR 0.9 APTT 23.4 VBG pH VBG pCO2 VBG pO2 VBG HCO3 VBG Total CO2 VBG O2 Saturation VBG Base Excess Sodium Potassium Chloride Carbon Dioxide Anion Gap BUN Creatinine Est GFR (CKD-EPI 2020) Glucose Hemoglobin A1c Calcium Magnesium Total Bilirubin AST ALT Alkaline Phosphatase Creatine Kinase Troponin I NT-Pro-B Natriuret Pep Total Protein Albumin Lipase TSH Serum HCG, Qual Urine Color Urine Clarity Urine pH Ur Specific [place] Urine Protein Urine Ketones Urine Blood Urine Nitrite Urine Bilirubin Urine Urobilinogen Ur Leukocyte Esterase Urine RBC Urine WBC Ur Epithelial Cells Urine Crystals Urine Bacteria Urine Casts Urine Mucus Ur Culture Indicated? Urine Glucose Urine Opiates Screen Negative Urine Methadone Screen Negative Ur Barbiturates Screen Negative Ur Tricyclics Screen Positive A Ur Amphetamines Screen Negative U Benzodiazepines Scrn Negative Urine Cocaine Screen Negative Ur THC Screen Negative COVID-19 Source Nasopharynx SARS-CoV-2 (PCR) Negative Influenza Type A (PCR) Negative Influenza Type B (PCR) Negative RSV (PCR) Negative 01/05/23 01/05/23 01/05/23 12:28 14:17 19:13 WBC RBC Hgb Hct MCV MCH MCHC RDW Plt Count MPV Immature Gran % Neutrophils % Lymphocytes % Monocytes % Eosinophils % Basophils % Nucleated RBC % Absolute Neutrophils Absolute Lymphocytes Absolute Monocytes Absolute Eosinophils Absolute Basophils PT INR APTT VBG pH VBG pCO2 VBG pO2 VBG HCO3 VBG Total CO2 VBG O2 Saturation VBG Base Excess Sodium Potassium Chloride Carbon Dioxide Anion Gap BUN Creatinine Est GFR (CKD-EPI 2020) Glucose Hemoglobin A1c Calcium Magnesium Total Bilirubin AST ALT Alkaline Phosphatase Creatine Kinase Troponin I < 50 NT-Pro-B Natriuret Pep Total Protein Albumin Lipase TSH Serum HCG, Qual Negative Urine Color Yellow Urine Clarity Clear Urine pH 6.0 Ur Specific [place] 1.010 Urine Protein 100 H Urine Ketones Negative Urine Blood Moderate H Urine Nitrite Negative Urine Bilirubin Negative Urine Urobilinogen 0.2 Ur Leukocyte Esterase Negative Urine RBC 10-20 H Urine WBC 0-2 Ur Epithelial Cells Moderate Urine Crystals Negative Urine Bacteria Rare Urine Casts Negative Urine Mucus Negative Ur Culture Indicated? No Urine Glucose >=1000 H Urine Opiates Screen Urine Methadone Screen Ur Barbiturates Screen Ur Tricyclics Screen Ur Amphetamines Screen U Benzodiazepines Scrn Urine Cocaine Screen Ur THC Screen COVID-19 Source SARS-CoV-2 (PCR) Influenza Type A (PCR) Influenza Type B (PCR) RSV (PCR) 01/06/23 01/06/23 06:35 06:35 WBC RBC Hgb Hct MCV MCH MCHC RDW Plt Count MPV Immature Gran % Neutrophils % Lymphocytes % Monocytes % Eosinophils % Basophils % Nucleated RBC % Absolute Neutrophils Absolute Lymphocytes Absolute Monocytes Absolute Eosinophils Absolute Basophils PT INR APTT VBG pH VBG pCO2 VBG pO2 VBG HCO3 VBG Total CO2 VBG O2 Saturation VBG Base Excess Sodium 135 L Potassium 4.1 Chloride 103 Carbon Dioxide 22.3 Anion Gap 9.7 BUN 13 Creatinine 1.1 H Est GFR (CKD-EPI 2020) 69.32 Glucose 102 Hemoglobin A1c 6.7 H Calcium 8.5 Magnesium Total Bilirubin AST ALT Alkaline Phosphatase Creatine Kinase Troponin I NT-Pro-B Natriuret Pep Total Protein Albumin Lipase TSH Serum HCG, Qual Urine Color Urine Clarity Urine pH Ur Specific [place] Urine Protein Urine Ketones Urine Blood Urine Nitrite Urine Bilirubin Urine Urobilinogen Ur Leukocyte Esterase Urine RBC Urine WBC Ur Epithelial Cells Urine Crystals Urine Bacteria Urine Casts Urine Mucus Ur Culture Indicated? Urine Glucose Urine Opiates Screen Urine Methadone Screen Ur Barbiturates Screen Ur Tricyclics Screen Ur Amphetamines Screen U Benzodiazepines Scrn Urine Cocaine Screen Ur THC Screen COVID-19 Source SARS-CoV-2 (PCR) Influenza Type A (PCR) Influenza Type B (PCR) RSV (PCR) Time Spent with Patient Time Spent with Patient: 25-34 minutes Time was spent: preparing to see the patient(eg.review tests), ordering medications,tests, procedures, indepentently interpreting results, counseling the patient and care coordination
[2023-01-06] MEDS: Senna TAB 1 TAB PO (11:38)
[2023-01-06] MEDS: Furosemide 40 MG TAB PO (11:38)
--- NOTE | 2023-01-06 13:19 | NUR.NOTE ---
Accessed chart to determine orders for EKG and to determine whether or not one needs to be cancelled. Nursing Note:
[2023-01-06] MEDS: Norethindrone 5 MG TAB 10 MG PO (14:10)
--- NOTE | 2023-01-06 17:29 | W.PM.DS.N ---
Date of service: 01/06/23 Time of Service: 17:29 DS: Diagnosis Discharge Diagnosis (1) Hypoglycemia: Status: Acute (2) T2DM (type 2 diabetes mellitus): Status: Chronic (3) Heart failure with preserved ejection fraction: Status: Acute (4) Benign essential hypertension: Status: Acute (5) Hypothyroid: Status: Chronic (6) Schizoaffective disorder, bipolar type: Status: Chronic Discharge Plan Disposition Patient Disposition: Home Condition: Good Discharge Details Reason For Visit: Hypoglycemia Admit Date/Time: 01/05/23 13:37 Admit Provider: Talon Nj Attending Provider: Talon Nj Primary Care Provider: Lia Pearson Hospital Course Hospital Course: 32-year-old -Italian female with a history of morbid obesity, hypertension, hypothyroidism, type 2 diabetes mellitus on a complex regimen managed by endocrine and diabetes department at [facility]. Regimen has included both basal bolus insulin as well as Ozempic and Jardiance and metformin. Patient has been experiencing 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 spells for the last couple of months but had severe hypoglycemia since last week and presented to the emergency department with refractory hypoglycemia that did not respond to repeated boluses of dextrose 50% and therefore she was hospitalized overnight in the intensive care unit on a D10 drip. All diabetic medications were withheld. Serial blood sugars were monitored hourly until her blood sugars remained above 100 for 3 consecutive readings. After that blood sugars were decreased every 4 hours. The following morning her D10 drip was discontinued further blood sugars were monitored to ensure that she remained above 100 mg/dL. She was tolerating a diet and was discharged home with instructions to discontinue her Lantus continue following her sliding scale NovoLog and to resume her other diabetic medications including Ozempic once and metformin. She is to call the office to see her PCP Lia Pearson in the next week and she is to call the diabetes and endocrine clinic at the [facility] to set follow-up in the next 2 weeks. Home Meds and New Rx's Prescriptions: New glucagon HCl [Glucagon (HCl) Emergency Kit] 1 mg recon soln 1 mg subcut Q20M PRNQty: 1 0RF Rx Instructions: until target blood sugar attained Continued rosuvastatin [Crestor] 40 mg tablet 40 mg PO DAILY doxepin 6 mg tablet 6 mg PO QHS PRN (Reason: sleep) Qty: 90 0RF (DME) lancets [OneTouch UltraSoft Lancets] Misc See Rx Instructions .ROUTE .MEDSUPPLY Qty: 400 3RF Rx Instructions: test ac and hs prn E11.9 to maintain AIC <7 OneTouch Verio (DME) OneTouch Verio test strips Strip See Rx Instructions .ROUTE .MEDSUPPLY Qty: 400 3RF Rx Instructions: to test blood sugars ac and hs to maintain AIC <7, E11.9 glucose [Dex4 Glucose] 4 gram tablet,chewable 4 g PO Q10MIN PRN (Reason: hypoglycemia) Qty: 100 3RF Rx Instructions: until symptoms of low blood sugar are controlled polyethylene glycol 3350 [Miralax] 17 gram/dose powder 17 g PO BID PRN (Reason: constipation) Qty: 510 1RF Rx Instructions: Constipation--please use [place]'s [place] cover 05/04/22 aripiprazole [Abilify] 5 mg tablet 20 mg PO QAM cholecalciferol (vitamin D3) 50 mcg (2,000 unit) capsule 50 mcg PO DAILY Qty: 90 3RF Rx Instructions: Vitamin D Deficiency trazodone 300 mg tablet 300 mg PO QHS metoprolol succinate 100 mg tablet extended release 24 hr 100 mg PO HS Qty: 90 3RF Rx Instructions: Dose increase 07/08/2022 (DME) pen needle, diabetic [Pen Needle] 32 gauge x needle See Rx Instructions .ROUTE .MEDSUPPLY Qty: 50 Rx Instructions: bid to administer insulin bid E11.9 levothyroxine 200 mcg tablet 200 mcg PO DAILY gabapentin 300 mg capsule 300 mg PO TID (DME) FreeStyle Toshia 2 [place] Misc See Rx Instructions .Route Rx Instructions: swipe 4-5 times daily per note dated 11/12/21 [facility] cc (DME) FreeStyle Toshia 2 [place] Misc See Rx Instructions .Route Rx Instructions: Swipe 4-5 x's daily per note dated 12/31/21 [facility] Ozempic 0.25 mg or 0.5 mg(2 mg/1.5 mL) pen injector 2 mg subcut QWEEK Hold Instructions: until discussed with television operator Rx Instructions: 12/23/21- pt reports [facility] Endocrinology increased dose to 1mg q week. 02/06/22 [facility] per pt increased to 2 mg weekly. sally senna 8.6 mg capsule 8.6 mg PO DAILY (DME) Depend Underwear For Women XL Misc See Rx Instructions .Route Qty: 60 12RF Rx Instructions: 1-2 per day prn (DME) incontinence pad, liner, disp Pad See Rx Instructions .Route Qty: 40 12RF Rx Instructions: 1-2 per day empagliflozin 10 mg tablet 10 mg PO DAILY Hold Instructions: until discussed with television operator insulin aspart U-100 [Novolog FlexPen U-100 Insulin] 100 unit/mL (3 mL) insulin pen 1 sliding scale dose subcut TID Hold Instructions: until discussed with television operator Rx Instructions: With meals. cholecalciferol (vitamin D3) 1,250 mcg (50,000 unit) capsule 1,250 mcg PO QWEEK Qty: 8 1RF Rx Instructions: Vitamin D deficiency losartan 25 mg tablet See Rx Instructions .ROUTE .COMPLEX Qty: 90 3RF Dose Instruction: TAKE ONE TABLET BY MOUTH EVERY DAY Rx Instructions: TAKE ONE TABLET BY MOUTH EVERY DAY norethindrone acetate 5 mg tablet 10 mg PO TID furosemide 40 mg tablet 40 mg PO QAM Qty: 90 3RF ferrous gluconate 324 mg (38 mg iron) tablet See Rx Instructions .ROUTE .COMPLEX Qty: 180 1RF Dose Instruction: TAKE ONE TABLET BY MOUTH TWICE A DAY Rx Instructions: TAKE ONE TABLET BY MOUTH TWICE A DAY prazosin [Minipress] 5 mg Capsule 5 mg PO DAILY chlorpromazine 200 mg tablet 200 mg PO HS Patient Comments: TAKE 1 TABLET BY MOUTH AT BEDTIME FOR SCHIZOAFFECTIVE DISORDER Discontinued Lantus Solostar U-100 Insulin 100 unit/mL (3 mL) insulin pen See Rx Instructions subcut BID Hold Instructions: until discussed with television operator Rx Instructions: 02/06/22 dose change per pt 17U am, 18U pm. mk Discharge Instructions Instructions: Hypoglycemia in a Person with Diabetes (DC) Additional Instructions: Call the [facility] Endocrine and Diabetes Clinic at [phone] and make and keep appointment w/ your process safety specialist. You should be seen in the next 2 weeks for follow up of sever hypoglycemia Referrals: Lia Pearson BELLY DUMP DRIVER [Primary Care Provider] - (call tomorrow for follow up in the next week) Activity:: Activity as Tolerated Equipment/Supplies:: No Equipment Needed Diet:: Carb Counting Discharge Orders Discharge Orders: Discharge Order (Routine); Ordered 01/06/23 Ordered By: Talon Nj DS: Summary Time Spent with Patient providing and/or coordinating discharge services: Less than 30 minutes Status at Discharge Functional status at discharge: independent ambulation Overall status at discharge: patient is back to baseline Mental Status: mental status grossly normal Speech and Movement: speech and movement normal Mood: congruent mood Affect: normal affect Exam Narrative Exam Narrative: Patient was feeling markedly better sitting up eating complete meals not having any further hypoglycemia. D10 drip had been discontinued 0 blood sugars remain above 100. Patient be discharged home to follow-up with both her local PCP Lia Pearson as well as her process safety specialist at [facility], Dr. Velasco Psych Mental Status: mental status grossly normal Speech and Movement: speech and movement normal Mood: congruent mood Affect: normal affect DS: Data Vitals/I&O Vitals and I&O: Vital Signs Temperature 36.9 C 01/06/23 16:12 Temperature Source Temporal Artery Scan 01/06/23 16:12 Pulse 96 H 01/06/23 14:15 Pulse 95 H 01/06/23 14:15 Respiratory Rate 18 01/06/23 14:15 Respiratory Effort Normal, Non-Labored 01/06/23 15:00 Respiratory Depth Shallow 01/06/23 15:00 Respiratory Pattern Bradypnea 01/06/23 15:00 Blood Pressure 157/113 H 01/06/23 14:15 Blood Pressure Mean 124 01/06/23 14:15 Blood Pressure Position Left Lateral 01/06/23 15:00 Pulse Oximetry 91 L 01/06/23 14:15 Oxygen Delivery Method Room Air 01/06/23 15:00 Oxygen Flow Rate 0 01/06/23 15:00 Fraction of Inspired Oxygen (FIO2) 21 01/06/23 09:07 Pain Level 0 01/06/23 15:00 Intake & Output 01/05/23 01/06/23 01/06/23 23:59 11:59 23:59 Intake Total 1277.917 / 1277.917 613.333 / 613.333 Output Total 700 / 700 650 / 650 Balance 577.917 / 577.917 -36.667 / -36.667 Weight 166.5 kg 184.6 kg Intake: IV 767.917 / 767.917 373.333 / 373.333 Oral 510 / 510 240 / 240 Output: Urine 700 / 700 650 / 650 Other: Urine Color Yellow Dark Gricel Urine Appearance Clear Cloudy Urine Odor Normal Strong Comment Pt is on medication to alleviate her heavy and irregular menstrual periods. Pt is on medication to alleviate her heavy and irregular menstrual periods. Voiding Methods Bedside Commode Bedside Commode Data Completed and Pending Labs on day of discharge: Labs from last 24 hours 01/06/23 01/06/23 01/05/23 06:35 06:35 19:53 Sodium 135 L Potassium 4.1 Chloride 103 Carbon Dioxide 22.3 Anion Gap 9.7 BUN 13 Creatinine 1.1 H Est GFR (CKD-EPI 2020) 69.32 Glucose 102 Hemoglobin A1c 6.7 H Calcium 8.5 Serum HCG, Qual Cortisol Cortisol 30 Minute Cortisol 60 Minute Pending 01/05/23 01/05/23 01/05/23 19:13 19:13 18:10 Sodium Potassium Chloride Carbon Dioxide Anion Gap BUN Creatinine Est GFR (CKD-EPI 2020) Glucose Hemoglobin A1c Calcium Serum HCG, Qual Negative Cortisol Pending Cortisol 30 Minute Pending Cortisol 60 Minute Preliminary micro results at discharge 01/05/23 11:22 Blood Culture - Preliminary Blood NO GROWTH 24 HOURS 01/05/23 10:55 Blood Culture - Preliminary Blood NO GROWTH 24 HOURS PFSH All Active Problems Hypoglycemia (Acute) Long-term insulin use (Acute) Schizoaffective disorder, unspecified (Acute) Benign essential hypertension (Acute) Menorrhagia (Chronic ~2021) Managed with IUD & norethidrone Insomnia (Acute ~07/2022) Constipation by delayed colonic transit (Chronic) Senna Class 3 severe obesity without serious comorbidity with body mass index (BMI) of 60.0 to 69.9 in adult (Acute) Hypothyroid (Chronic) [facility] Endo Schizoaffective disorder, bipolar type (Chronic) [facility] PTSD (post-traumatic stress disorder) (Chronic) [facility] Morbid obesity (Chronic) BMI >60, Class 3 severe obesity Obstructive sleep apnea (adult) (pediatric) (Chronic ~2007) C-PAP; [facility] T2DM (type 2 diabetes mellitus) (Chronic ~2010) [place]; [facility] Endo Goal: <7% Dependent for transportation (Chronic) [facility] Heart failure with preserved ejection fraction (Acute) Severe nonproliferative diabetic retinopathy (Chronic ~10/2021) Major depressive disorder, single episode, mild (Acute 05/11/21) Onychauxis (Acute) [facility] Podiatry Vitamin D deficiency (Acute ~02/2022) Medical History Abnormal CAT scan abscess at right gluteal area/coccyx, early osteomyelitis? Cardiomegaly Coagulopathy (~09/2021) ?VWD; [facility] Heme consult NEG Diabetic macular edema (~10/2021) Dissociative identity disorder (~2014) Hypoglycemia associated with diabetes (~10/2021) Iron deficiency anemia due to chronic blood loss Menorrhagia with irregular cycle IUD placed at [facility] Feb 2022, normal endo bx. Bleeding improved. On Northindrone 5mg BID Mixed hyperlipidemia Papilledema (~11/2021) Plantar fasciitis Surgical History Status post embolization of uterine artery (~09/2022) [facility] 10/13/22; s/p vaginal/uterine hemorrhage Family History Father Diabetes Alcohol use disorder Mother Seizure disorder Other Factor VIII (functional) deficiency Fibroids Social History Smoking/Tobacco Use Status: Never Second Hand Exposure: No Smoking risk assessment performed?: Yes Alcohol Intake: former Drug use: Current Sobriety Substance use type: marijuana Adopted: Yes Caregiver/Support person: No Foster care: Yes Household members: none Housing: apartment Number of Children: 0 Communication Needs: None Education Level: college Details: associate's degree Do you need help understanding health information?: Never current occupation: [employer] Pets and animals: No Sexually active: No Do you think of yourself as: ??asexual Current gender identity: female What is your relationship status?: never How often do you talk on the phone with friends or family?: three or more times per week How often do you get together with friends or relatives?: never Do you belong to any clubs or organized social groups?: no Panel score (0-1 are the most socially isolated patients): 1 What type of physical activity do you participate in: walking Duration: < 15 minutes/day Frequency: 1-2 times per week Vane/Temple: None Special vane needs: No Seatbelt use: sometimes Helmet use: No Drive intox or ride w/intox local flatbed driver: No Do you feel safe at home: Yes Do you feel safe in your relationship?: Yes Female Reproductive History Menstrual Age of Menarche: 13 Duration of menses: >10 days control method: none History History 0 Para Hx # Term Pregnancies Multiple births Hx # Pregnancies Ectopic pregnancies AB induced Hx Number of Living Children AB spontaneous Time Spent with Patient Time Spent with Patient: <45 minutes Time was spent: preparing to see the patient(eg.review tests), ordering medications,tests, procedures, referring, communicating with other health pet care associate and care coordination
== END 2023-01-06 18:09 | disposition home or self-care (01) ==
LOC: ER 13:56 → ICU 15:26
PROVIDERS: Family Medicine; Admitting Provider Internal Medicine; Emergency Provider Emergency Medicine; PCP Nurse Practitioner Adult Health; Visit Provider Internal Medicine
DX: R42 Dizziness and giddiness (principal); E11.649 Type 2 diabetes mellitus with hypoglycemia without coma; I50.33 Acute on chronic diastolic (congestive) heart failure; I11.0 Hypertensive heart disease with heart failure; Z79.85 Long-term (current) use of injectable non-insulin antidiabetic drugs; Z68.44 Body mass index [BMI] 60.0-69.9, adult; Z79.899 Other long term (current) drug therapy; Z79.4 Long term (current) use of insulin; Z79.84 Long term (current) use of oral 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 drugs; F25.9 Schizoaffective disorder, unspecified; N92.0 Excessive and frequent menstruation with regular cycle; E66.01 Morbid (severe) obesity due to excess calories; F43.10 Post-traumatic stress disorder, unspecified; F32.0 Major depressive disorder, single episode, mild; E55.9 Vitamin D deficiency, unspecified; L60.2 Onychogryphosis; F44.81 Dissociative identity disorder; D50.0 Iron deficiency anemia secondary to blood loss (chronic); E78.2 Mixed hyperlipidemia; F12.90 Cannabis use, unspecified, uncomplicated; E03.9 Hypothyroidism, unspecified; E11.42 Type 2 diabetes mellitus with diabetic polyneuropathy; E11.3419 Type 2 diabetes mellitus with severe nonproliferative diabetic retinopathy with macular edema, unspecified eye
CPT/HCPCS: 36415; 36416; 80048; 80053; 80307; 82533; 82550; 82805; 82962; 83690; 87040; 87206; 87637; 93005; 99285; 71045; 81003; 81015; 83036; 83735; 83880; 84443; 84484; 84703; 85025; 85610; 85730; 93010; 94660; 99232; 99238; 99291; G0378; J0834; J2405; J7042

== ENCOUNTER 2023-03-26 18:16 | Outpatient (REF) | payer MEDICARE, MEDICAID, SELFPAY ==
[2023-03-26 21:10] LABS: Abs Immature Grans 0.05 10^3/uL (0.0-0.06); Absolute Basophil Count 0.05 10^3/uL (0.0-0.2); Absolute Eosinophil Count 0.21 10^3/uL (0.0-0.7); Absolute Lymphocyte Count 2.36 10^3/uL (1.2-3.4); Absolute Monocyte Count 0.59 10^3/uL (0.1-0.8); Basophils % 0.5; Eosinophils % 2.3; HCT 43.9 % (36.0-46.0); HGB 14.1 g/dL (11.2-15.7); Immature Grans % 0.5; Lymphocytes % 25.8; MCH 27.2 pg (27.0-33.0); MCHC 32.1 % (32.0-36.0); MCV 85 fL (80-95); MPV 11.3 fL (8.0-11.0); Monocytes % 6.4; Neutrophils % 64.5; Platelet Count 380 10^3/uL (130-400); RBC 5.19 10^6/uL (3.93-5.22); RDW 15.2 % (11.7-14.6); RDW-SD 47.1 fL; WBC 9.16 10^3/uL (4.4-10.8)
== END 2023-03-26 18:17 | disposition home or self-care (01) ==
LOC: LBN 18:16
PROVIDERS: PCP Nurse Practitioner Adult Health; Visit Provider Physician Assistant Medical
DX: R00.0 Tachycardia, unspecified (principal); E11.9 Type 2 diabetes mellitus without complications; E03.9 Hypothyroidism, unspecified
CPT/HCPCS: 85025

== ENCOUNTER 2023-07-10 12:24 | Emergency (ER) | payer MEDICARE, MEDICAID, SELFPAY ==
[2023-07-10] VITALS (32 sets, daily range): BP systolic 156–188; BP diastolic 65–96; PULSE 64–70; RESP 1–20; TEMP 36.4; O2SAT 97–100
--- NOTE | 2023-07-10 12:30 | DI.CT_ITS ---
Exam(s) CT CHEST/ABD/PEL W EXAM: CT CHEST/ABD/PEL W CLINICAL HISTORY: Oral contrast chest pain vomiting. TECHNIQUE: Imaging Protocol: Axial computed tomography images with coronal and sagittal reformatted images were created and reviewed CONTRAST MATERIAL: Intravenous: Omnipaque 350 Contrast volume:100 ml Oral: Yes. Oral contrast was administered COMPARISON: CT CT CHEST PE CTA from 08/16/2021 FINDINGS: CHEST: LUNGS: There are mild benign-appearing increased markings in in both lung bases posterior basal segme nts both lower lobes as well as in the right middle lobe. No air bronchograms. No pleural effusions .. MEDIASTINUM: No free air in the mediastinum to suggest mediastinitis, given the history here. Esopha guerrero is not dilated. No evidence of para esophageal collect. Hilar nor mediastinal adenopathy. Visu alized thyroid unremarkable. CARDIAC: Heart size is normal. There is no pericardial effusion.Caliber of the thoracic aorta is wit hin normal limits. OSSEOUS: No significant osseous lesions.. ABDOMEN: There is no ascites. No free air. GI: There is evidence of prior bariatric surgery. The gastric pouch and pre colic Lobo limb are not dilated and there is no evidence of obstruction at the distal anastomosis/enteroenterostomy. There i s also no evidence of more distal small bowel obstruction and the colon is not collapsed.. However, of possible concern here is the presence of oral contrast in the distal manzanita excluded stomach and t hroughout the duodenum. This may indicate fistulous communication between the gastric pouch and boris ve stomach. There is no evidence of free air nor abnormal collection at this level. LIVER: There are no focal hepatic lesions nor dilatation of intrahepatic ducts. GALLBLADDER/BILIARY: Sludge noted in the non distended and not edematous gallbladder. CBD is not dil ated. CBD is not dilated. PANCREAS: No evidence of pancreatic mass nor dilatation of the pancreatic duct. SPLEEN: Spleen is not enlarged. There are no intrasplenic lesions. There is a round nodule measuring 2.5 x 2.2 cm interposed between the medial aspect of the spleen, pancreatic tail, and anterior cem x of the left kidney.. This probably represents a splenule as it is relatively isodense to the splee n and appears to be immediately adjacent to but separate from the superior pole of the left kidney an d pancreatic tail. The splenic and portal veins are patent. ADRENALS: There are no significant adrenal masses. KIDNEYS: No calculi nor hydronephrosis. No solid renal masses. No cysts evident. ABDOMINAL AORTA: Abdominal aorta is not enlarged. LYMPH NODES: There is no retroperitoneal nor paraaortic adenopathy. ABDOMINAL WALL: No evidence of significant anterior abdominal wall nor inguinal hernia. PELVIS: LYMPH NODES: There is no intrapelvic nor inguinal adenopathy. GI: No evidence of appendicitis.No evidence of sigmoid diverticulitis. URINARY BLADDER: No calculi nor masses evident REPRODUCTIVE: Uterus and ovaries appear age-appropriate. There is no free fluid in the pelvis. SOFT TISSUES: There is a inflammatory process in the subcutaneous fat in the medial right buttocks wh ich extends down to the medial gluteus musculature and coccyx. There does not appear to be obvious s kin breakdown nor obvious evidence of osteomyelitis of the sacrum and coccyx at this time but this is at significant risk for development. This subcutaneous finding requires close follow-up. IMPRESSION: 1. There is evidence of previous bariatric surgery. There is no evidence of bowel obstruction, free air, nor abscess. However, there is oral contrast evident within the distal stomach and throughout t he duodenal C-loop. 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 2. There is a 2.5 x 2.2 cm solid nodule in the mesentery adjacent to the medial aspect of the spleen, the pancreatic tail, and the superior pole of the left kidney. This is most probably a benign splen ule. 3. Significant subcutaneous inflammatory process in the medial right buttock as described above. At risk for abscess development. Recommend clinical examination at this level to determine if there is decubitus ulcer. There is no evidence of obvious osteomyelitis in the adjacent sacrum and coccyx at this time. This finding requires close follow-up. First read by [facility] Final report called by myself to ER physician 07/10/2023 4:50 p.m. RADIATION DOSE DELIVERED: 2,271.45mGy.cm Total DLP DATA REPOSITORY: All CT scans at this facility are submitted to the National Radiology Data Registry (NRDR) Dose Index Registry (DIR) with the [employer] (ACR). RADIATION OPTIMIZATION: All CT scans at this facility use at least one of these dose optimization te chniques: automated exposure control; mA and/or kV adjustment per patient size (includes targeted exa ms where dose is matched to clinical indication); or iterative reconstruction.
--- NOTE | 2023-07-10 12:30 | RT.EKG_ITS ---
APPROVED REPORT Exam: Resting ECG Reason for Exam: Chest pain Patient Location: E HR:76 bpm ECG Measurements Heart Rate 76 AXIS AR 168 P 47 QRSd 92 QRS 17 QT 400 T 27 QTc 452 Conclusion Sinus rhythm...normal P axis, V-rate 60- 99 Narrow complex normal sinus rhythm at a rate of 76. Normal axis. Intervals within normal limits. N o ST segment abnormalities. Poor R wave progression. Low voltage in limb leads. Compared to prior dated last year no acute injury pattern. Low voltage poor R wave progression are persistent. Plan T wave flattening in aVL new. No acute injury pattern.
--- NOTE | 2023-07-10 12:31 | ED.PROG_ITS ---
Date of service: 07/10/23 Time of Service: 12:31 Medical Decision Making MDM This is a 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 but not tachycardic and afebrile morbidly obese 33-year-old female approximately 5 weeks status post Lobo-en-Y with daily vomiting and weakness concerning for small bowel obstruction. No pain out of proportion to suggest necrotizing soft tissue infection. Given chest pain I am also concerned for the possibility of esophageal rupture so we will obtain CT chest abdomen pelvis with both IV and oral contrast. No tearing quality to suggest dissection. Not a dialysis patient my suspicion is low for tamponade as patient is neither tachycardic nor hypotensive. No fevers no cough to suggest pneumonia. No rash to chest to suggest zoster. No trauma and equal breath sounds so doubt pneumothorax. Patient does have vascular risk factors based on her obesity so will obtain 2 sets of troponins. She is not complaining of shortness of breath so my suspicion is low for PE so I did not send a D-dimer as patient is not tachycardic nor hypotensive nor hypoxic. Patient is not complaining of shortness of breath and, as result my suspicion is low for exacerbation of her heart failure with preserved ejection fraction. Her fingerstick blood glucose was 44. IV access has not been obtained. She received orange juice on her blood sugar improved to 71. She is receiving a liter of D5 NS. 2:10 PM Comprehensive metabolic panel showing very mild hypokalemia with a serum potassium of 3.4. No EDIE. Glucose within normal limits. No acute LFT abnormalities. CBC with no anemia no thrombocytopenia. No leukocytosis. hCG negative. Very mild hypomagnesemia. Initial troponin negative. 2:24 PM Despite the patient's D5 NS drip her blood glucose went down to 44. I discontinued her D5 NS drip in favor of a D10 half-normal drip at 100 cc/h. 3:40 PM On my preliminary interpretation of the patient's CT as she had no obvious signs of obstruction. Even if her CT is reassuring and her second troponin is also negative anticipate she will require hospitalization given her excursions of hypoglycemia and potential need for a new insulin regime. Given her long-acting insulin I feel that this will be best accomplished during a hospitalization. 4 p.[address]. I spoke with Dr. Lovell from the hospitalist team. She requested transfer to [facility] given postprandial hypoglycemia 5 weeks postoperative. Will touch base with bariatric surgery at [facility]. 4:12 PM I met with the patient as she wanted to go home. She had on her CT scan some subcutaneous soft tissue thickening in the right gluteal region. Given that she left AGAINST MEDICAL ADVICE I was not able to examine this area. Patient had no gluteal complaints at the time of history and physical exam. Explained the risks of going home including hypoglycemia falls, . She understood the risks and signed out AGAINST MEDICAL ADVICE. I have asked health breaker unit assembler again that the patient seen a soon as possible next week by her primary care provider. Patient did not stay for a second troponin. I notified the transfer center at [facility] and rescinded my request for consultation. Patient and I discussed that she should return to the emergency department if she feels lightheaded if she develops recurrent chest pain if she syncopized or if she has any other concerns. 1. I explained the current situation and condition to the patient. 2. I explained the recommended treatment for this condition -hospitalization for frequent fingersticks and blood glucose monitoring along with cardiac monitoring in the setting of chest pain 3. I explained the risk of not having the recommended treatment -, coma, fall, myocardial infarction 4. The patient understands this information has no questions, and repeated back this information. 5. The patient states that they need to leave and will return if her symptoms worsen 6. Mental status is lucid and the patient has decision-making capacity. 7. Patient is withdrawing her consent for care HEART SCORE Chest pain Diagnostic Protocol: [-History/Physical/Gestalt: Slightly Suspicious (0)] [-EKG: Normal and/or unchanged from prior EKG (0)] [-AGE: less than 45 (0)] [- RISK FACTORS: 3 or more risk factors and/or known CAD (+2)] [-TROPONIN: <= normal limit (0)] - TOTAL SCORE: 2 - Risk Factors: DM, current or recent smoker, HTN, HLD, family hx of CAD, obesity - INTERPRETATION: With a total score of 3 or less, risk of major cardiac event within six weeks 1.7%, likely lower with two negative troponins. [I explained to the patient that the risk of subsequent major cardiac event within 1 month is not 0, however risk predicted to be less than 2%. Patient verbalized understanding, accepts this risk and shared and the decision for discharge with PCP follow-up for further evaluation and management. They understand to return to the ED immediately with any worsening symptoms, new symptoms or other concerns.] Chronic conditions affecting the care of the patient: Morbid obesity schizophrenia schizoaffective heart failure preserved ejection fraction History obtained from an outside historian: Oliver mccullough External record review: [facility] EMR [Diagnostic interpretations performed by me: Per my independent interpretation chest x-ray shows: Per my independent interpretation EKG shows: Narrow complex normal sinus rhythm at a rate of 76. Normal axis. Intervals within normal limits. No ST segment abnormalities. Poor R wave progression. Low voltage in limb leads. Compared to prior dated last year no acute injury pattern. Low voltage poor R wave progression are persistent. Plan T wave flattening in aVL new. No acute injury pattern. ]Medications: Ondansetron dextrose Social determinants of health affecting disposition: N/A Management discussed with: Hospitalist Treatment/interventions considered: Hospitalization but was unable to as patient left AGAINST MEDICAL ADVICE Response to therapies provided: Improved nausea following treatment in the ED HPI This is a morbidly obese diabetic 33-year-old female arrived to the emergency department via private vehicle in the setting of chest pain vomiting and nausea. Patient is approximately 5 weeks status post Lobo-en-Y at [facility]. She says that her chest pain is central and radiates around her chest. She says it is sharp and intermittent. Does not radiate into her arms. She has not passed out. She did not vomit today but has been vomiting every day for the past several weeks. She does feel nauseous. She said no fevers nor chills. She denies abdominal pain. She denies routine tobacco, ethanol, and illicits. She took her home medications today. She reports that she has occasionally had bouts of hy poglycemia since her surgery at home. She is on 12 units of glargine twice daily plus short acting insulin for blood fingerstick blood glucose levels greater than 160. Exam General: Chronically ill-appearing in no acute distress speaking in complete sentences. Head: Normocephalic, atraumatic. Eye: Extraocular eye movements intact. No conjunctival injection. No scleral icterus. Ear, nose, mouth, throat: Grossly normal inspection. Normal voice, handling secretions normally. Neck: Trachea midline. Cardiovascular: Well-perfused distal extremities. Regular rate and rhythm. Respiratory: Nonlabored respiration. Clear lungs bilaterally Gastrointestinal: Nondistended abdomen. Obese nontender abdomen. Musculoskeletal: Mild bilateral lower extremity nonpitting edema. Moving all 4 extremities spontaneously. Skin: Normal for age and race, grossly normal temperature and turgor. No acute rash. Neurologic: Alert and appropriate, no apparent acute deficits. Psychiatric: Mood and manner are appropriate. Grooming and personal hygiene are appropriate. Quality:[facility] Health Related Social Needs: No Data to Display Discharge Plan Disposition Patient Disposition: Against Medical Advice Discharge Details Clinical Impression: Chest pain, unspecified, Hypoglycemia after GI (gastrointestinal) surgery, Hypomagnesemia Primary Care Provider: Lia Pearson ED Provider: Kory Bui Mansfield Meds and New Rx's Prescriptions: Continued rosuvastatin [Crestor] 40 mg tablet 40 mg PO DAILY doxepin 6 mg tablet 6 mg PO QHS PRN (Reason: sleep) Qty: 90 0RF (DME) lancets [OneTouch UltraSoft Lancets] Misc See Rx Instructions .ROUTE .MEDSUPPLY Qty: 400 3RF Rx Instructions: test ac and hs prn E11.9 to maintain AIC <7 OneTouch Verio (DME) OneTouch Verio test strips Strip See Rx Instructions .ROUTE .MEDSUPPLY Qty: 400 3RF Rx Instructions: to test blood sugars ac and hs to maintain AIC <7, E11.9 glucose [Dex4 Glucose] 4 gram tablet,chewable 4 g PO Q10MIN PRN (Reason: hypoglycemia) Qty: 100 3RF Rx Instructions: until symptoms of low blood sugar are controlled hydroxyzine pamoate 25 mg capsule 25 mg PO BID PRN furosemide 20 mg tablet 20 mg PO .every other day Hold Instructions: Changed by Provider Rx Instructions: Dose change 01/14/23 to allow for more flexibility for fluid h/o CHF (diastolic) chlorpromazine 50 mg tablet 50 mg PO .COMPLEX Rx Instructions: 50 mg tablets: 50 mg AM and 300 mg PM metformin 500 mg tablet extended release 24 hr 1,000 mg PO BID aripiprazole [Abilify] 5 mg tablet 25 mg PO QAM trazodone 300 mg tablet 300 mg PO QHS methocarbamol 500 mg tablet 500 mg PO TID PRN (Reason: muscle spasm of lumbar spine) Qty: 40 0RF (DME) pen needle, diabetic [Pen Needle] 32 gauge x needle See Rx Instructions .ROUTE .MEDSUPPLY Qty: 50 Rx Instructions: bid to administer insulin bid E11.9 levothyroxine 200 mcg tablet 200 mcg PO DAILY gabapentin 300 mg capsule 300 mg PO TID (DME) FreeStyle Toshia 2 [facility] [place] See Rx Instructions .Route Rx Instructions: swipe 4-5 times daily per note dated 11/12/21 [facility] cc (DME) FreeStyle Toshia 2 [facility] See Rx Instructions .Route Rx Instructions: Swipe 4-5 x's daily per note dated 12/31/21 [facility] senna 8.6 mg capsule 8.6 mg PO DAILY (DME) Depend Underwear For Women XL Mis See Rx Instructions .Route Qty: 60 12RF Rx Instructions: 1-2 per day prn (DME) incontinence pad, liner, disp Pad See Rx Instructions .Route Qty: 40 12RF Rx Instructions: 1-2 per day losartan 25 mg tablet See Rx Instructions .ROUTE .COMPLEX Qty: 90 3RF Dose Instruction: TAKE ONE TABLET BY MOUTH EVERY DAY Rx Instructions: TAKE ONE TABLET BY MOUTH EVERY DAY norethindrone acetate 5 mg tablet 10 mg PO TID insulin aspart U-100 [Novolog FlexPen U-100 Insulin] 100 unit/mL (3 mL) insulin pen See Rx Instructions subcut TID Rx Instructions: TDD 40, TID w/ meals based on sliding scale subcutaneously three times a day; 01/29/23 per [facility] note.HE cholecalciferol (vitamin D3) 50 mcg (2,000 unit) capsule See Rx Instructions .ROUTE .COMPLEX Qty: 28 11RF Dose Instruction: TAKE 1 CAPSULE BY MOUTH DAILY Rx Instructions: TAKE 1 CAPSULE BY MOUTH DAILY ferrous gluconate 324 mg (38 mg iron) tablet See Rx Instructions .ROUTE .COMPLEX Qty: 56 11RF Dose Instruction: TAKE 1 TABLET BY MOUTH TWICE A DAY Rx Instructions: TAKE 1 TABLET BY MOUTH TWICE A DAY docusate sodium 100 mg capsule 100 mg PO BID PRN (Reason: constipation) enoxaparin 40 mg/0.4 mL syringe 40 mg subcut Q12H Rx Instructions: x10 days omeprazole 40 mg capsule,delayed release(DR/EC) 40 mg PO DAILY Rx Instructions: x90 days ondansetron 4 mg tablet,disintegrating 4 mg PO Q8H PRN (Reason: nausea) oxycodone 5 mg/5 mL solution 5 mg PO Q6H PRN ursodiol 300 mg capsule 300 mg PO BID Rx Instructions: x 180 days. Start 06/17/2023 per [facility] acetaminophen 325 mg tablet 650 mg PO Q6H PRN (Reason: pain) polyethylene glycol 3350 17 gram/dose powder 17 g PO DAILY insulin glargine [Lantus Solostar U-100 Insulin] 100 unit/mL (3 mL) insulin pen See Rx Instructions subcut .COMPLEX Rx Instructions: 10 Units BID, lower to 8 Units BID, lower to 4 Units BID--[facility] Endo 06/11/23 metoprolol succinate 100 mg tablet extended release 24 hr See Rx Instructions .ROUTE .COMPLEX Qty: 28 11RF Dose Instruction: TAKE 1 TABLET BY MOUTH AT BEDTIME Rx Instructions: TAKE 1 TABLET BY MOUTH AT BEDTIME prazosin [Minipress] 5 mg Capsule 5 mg PO DAILY glucagon HCl [Glucagon (HCl) Emergency Kit] 1 mg recon soln 1 mg subcut Q20M PRNQty: 1 0RF Rx Instructions: until target blood sugar attained Discharge Instructions Instructions: Chest Pain (ED), Hypomagnesemia (ED) Additional Instructions: You were seen in the emergency department for your lightheadedness and low blood sugar. It was recommended that you stay in the hospital overnight so that your insulin could be adjusted. You elected to leave AGAINST MEDICAL ADVICE. As we discussed this could result in your , coma, a fall causing intracranial hemorrhage or bleeding in your brain. If you change your mind would like to be hospitalized please return immediately to the emergency department. Your CAT scan showed no complications of your recent surgical procedure. Please follow- up with your primary care provider on Wednesday.
[2023-07-10] MEDS: Breeza Beverage 473 ML BTL PO ×2 (13:11→13:13)
[2023-07-10] MEDS: Omnipaque 350 MG/ML 50 ML BTL PO (13:12)
[2023-07-10 13:16] LABS: Abs Immature Grans 0.02 10^3/uL (0.0-0.06); Absolute Basophil Count 0.02 10^3/uL (0.0-0.2); Absolute Eosinophil Count 0.26 10^3/uL (0.0-0.7); Absolute Lymphocyte Count 1.74 10^3/uL (1.2-3.4); Absolute Monocyte Count 0.51 10^3/uL (0.1-0.8); Absolute Neutrophil Count 2.27 10^3/uL (1.2-6.7); Basophils % 0.4; Eosinophils % 5.4; HCT 40.7 % (36.0-46.0); HGB 12.9 g/dL (11.2-15.7); Immature Grans % 0.4; Lymphocytes % 36.1; MCH 27.8 pg (27.0-33.0); MCHC 31.7 % (32.0-36.0); MCV 88 fL (80-95); MPV 11.1 fL (8.0-11.0); Monocytes % 10.6; Neutrophils % 47.1; Platelet Count 262 10^3/uL (130-400); RBC 4.64 10^6/uL (3.93-5.22); RDW 12.4 % (11.7-14.6); WBC 4.82 10^3/uL (4.4-10.8)
[2023-07-10] MEDS: DEXTROSE 5%-0.9% SALINE 1,000 ML 1000 ML IV (13:17)
[2023-07-10 13:30] LABS: ALT 40 U/L (14-59); AST 19 U/L (15-37); Albumin 3.4 g/dL (3.4-5.0); Alkaline Phosphatase 79 U/L (46-116); Anion Gap 7.6 mmol/L (3-11); BUN 9 mg/dL (7-18); Bilirubin, Total 0.4 mg/dL (0.2-1.0); CO2 30.4 mmol/L (21.0-32.0); CREATININE 1.1 mg/dL (0.55-1.02); Calcium 8.8 mg/dL (8.5-10.1); Chloride 104 mmol/L (98-107); Estimated GFR 68.89 (mL/min/1.73m2); Glucose 69 mg/dL (74-106); Magnesium 1.6 mg/dL (1.8-2.4); Potassium 3.4 mmol/L (3.5-5.1); Sodium 142 mmol/L (136-145); Total Protein 7.8 g/dL (6.4-8.2)
[2023-07-10 13:38] LABS: HCG Qual (Serum) Negative
[2023-07-10] MEDS: Ondansetron 4 MG/2 ML VIAL IVP (14:00)
[2023-07-10 15:00] LABS: Troponin I < 50 ng/L (< or =60)
[2023-07-10] MEDS: Normal Saline Flush 10 ML SYR IVP (15:07)
[2023-07-10] MEDS: Normal Saline - Diluent 50 ML VIAL IJ (15:11)
[2023-07-10] MEDS: Omnipaque 350 MG/ML 100 ML BTL IJ (15:12)
--- NOTE | 2023-07-10 15:34 | DI.VRAD_ITS ---
PROCEDURE INFORMATION: Exam: CT Chest With Contrast; Diagnostic Exam date and time: 07/10/2023 3:11 PM Age: 33 years old Clinical indication: Other: Chest pain vomitting; Prior surgery; Surgery date: 1-6 months; Surgery type: Gastric bypass surgery TECHNIQUE: Imaging protocol: Diagnostic computed tomography of the chest with contrast. 3D rendering (Not supervised by radiologist): MIP and/or 3D reconstructed images were created by the technologist. Radiation optimization: All CT scans at this facility use at least one of these dose optimization techniques: automated exposure control; mA and/or kV adjustment per patient size (includes targeted exams where dose is matched to clinical indication); or iterative reconstruction. Contrast material: OMNI 350; Contrast volume: 100 ml; Contrast route: INTRAVENOUS (IV); COMPARISON: CT CHEST PE CTA 08/16/2021 6:54 PM FINDINGS: Lungs: Unremarkable. No consolidation. No masses. Pleural spaces: Unremarkable. No pneumothorax. No pleural effusion. Heart: Unremarkable. No cardiomegaly. No pericardial effusion. Lymph nodes: Unremarkable. No enlarged lymph nodes. Vasculature: Unremarkable. No aortic aneurysm. Bones/joints: Unremarkable. No acute fracture. Soft tissues: Unremarkable. IMPRESSION: No acute findings. PROCEDURE INFORMATION: Exam: CT Abdomen And Pelvis With Contrast Exam date and time: 07/10/2023 3:11 PM Age: 33 years old Clinical indication: Other: Chest pain vomitting; Prior surgery; Surgery date: 1-6 months; Surgery type: Gastric bypass surgery TECHNIQUE: Imaging protocol: Computed tomography of the abdomen and pelvis with contrast. 3D rendering (Not supervised by radiologist): MIP and/or 3D reconstructed images were created by the technologist. Radiation optimization: All CT scans at this facility use at least one of these dose optimization techniques: automated exposure control; mA and/or kV adjustment per patient size (includes targeted exams where dose is matched to clinical indication); or iterative reconstruction. Contrast material: OMNI 350; Contrast volume: 100 ml; Contrast route: INTRAVENOUS (IV); COMPARISON: CT CHEST PE CTA 08/16/2021 6:54 PM FINDINGS: Liver: Normal. No mass. Gallbladder and bile ducts: Normal. No calcified stones. No ductal dilation. Pancreas: Normal. No ductal dilation. Spleen: Normal. No splenomegaly. Adrenal glands: Normal. No mass. Kidneys and ureters: Normal. No hydronephrosis. Stomach and bowel: Previous gastric bypass surgery. No complication seen. Appendix: No evidence of appendicitis. Intraperitoneal space: Unremarkable. No free air. No significant fluid collection. Vasculature: Unremarkable. No abdominal aortic aneurysm. Lymph nodes: Unremarkable. No enlarged lymph nodes. Urinary bladder: Unremarkable as visualized. Reproductive: Unremarkable as visualized. Bones/joints: Unremarkable. No acute fracture. Soft tissues: Subcutaneous soft tissue thickening in right gluteal region. No brennon abscess but this may represent developing area of skin breakdown. IMPRESSION: 1. Previous gastric bypass surgery. No complication seen. 2. Subcutaneous soft tissue thickening in right gluteal region. No brennon abscess but this may represent developing area of skin breakdown. Dictated and Authenticated by: David Madrigal MD. Ordering:SERENITY Horn MD
[2023-07-10] MEDS: Magnesium Oxide 400 MG TAB PO (16:13)
--- NOTE | 2023-07-10 16:17 | NUR.NOTE ---
Referral Faxed to [facility] for Pt to be see next week for Hypoglycemia.
--- NOTE | 2023-07-10 17:21 | W.ED.FU ---
Date of service: 07/10/23 Time of Service: 17:21 Follow Up Plan: Patient had an abnormal report on her final CT scan which showed possible concern for fistulous communication between the gastric pouch and the [place] stomach. I have reengaged with [facility] to speak with bariatric surgery about arranging close outpatient follow-up for this patient. I have also called the patient and advised her to return to the emergency department. She said that she did not want to return now and that she did not have a ride. I stressed the urgency of the finding. I advised her to call an ambulance. She said that she would consider. 5:28 PM I spoke with Dr. Kelley from [facility] bariatric surgery. I let him know of the radiologist concern for the possible fistulous communication. He will follow-up with the patient's surgeon and have [facility] bariatric surgery office follow-up with the patient by phone next week to arrange office follow-up.
== END 2023-07-10 16:31 | disposition left against medical advice (07) ==
PROVIDERS: Emergency Provider Emergency Medicine; PCP Nurse Practitioner Adult Health
DX: R11.2 Nausea with vomiting, unspecified (principal); R07.9 Chest pain, unspecified; K91.2 Postsurgical malabsorption, not elsewhere classified; K91.89 Other postprocedural complications and disorders of digestive system; Z53.29 Procedure and treatment not carried out because of patient's decision for other reasons; Y83.2 Surgical operation with anastomosis, bypass or graft as the cause of abnormal reaction of the patient, or of later complication, without mention of misadventure at the time of the procedure
CPT/HCPCS: 00123; 36415; 36416; 74177; 80053; 82962; 93005; 96365; 96366; 96375; 99285; 71260; 83735; 84484; 84703; 85025; 93010; 99283; J2405; J3490; J7042; Q9967

== ENCOUNTER 2023-07-11 19:21 | Emergency (ER) | payer MEDICARE, MEDICAID, SELFPAY ==
[2023-07-11] VITALS (42 sets, daily range): BP systolic 140–176; BP diastolic 73–106; PULSE 72–110; RESP 7–23; TEMP 36.7–36.9; O2SAT 97–98
--- NOTE | 2023-07-11 19:15 | RT.EKG_ITS ---
APPROVED REPORT Exam: Resting ECG Reason for Exam: Epigastric pain Patient Location: E HR:81 bpm ECG Measurements Heart Rate 81 AXIS WI 184 P 33 QRSd 83 QRS -3 QT 368 T 34 QTc 427 Conclusion Sinus rhythm...normal P axis, V-rate 60- 99 Low voltage, precordial leads...precordial leads <1.0mV Consider anterior infarct...Q >30mS in V2-V5 sinus rhythm, normal axis, normal intervals, consider q waves anterior septal leads
[2023-07-11] MEDS: Prochlorperazine 10 MG/2 ML VIAL 5 MG IVP ×2 (19:54→21:33)
[2023-07-11] MEDS: Normal Saline 1,000 ML 1000 ML IV (19:54)
[2023-07-11 19:58] LABS: Lactate 0.8 mmol/L (0.6-1.4)
[2023-07-11 20:00] LABS: Abs Immature Grans 0.01 10^3/uL (0.0-0.06); Absolute Basophil Count 0.03 10^3/uL (0.0-0.2); Absolute Eosinophil Count 0.15 10^3/uL (0.0-0.7); Absolute Lymphocyte Count 1.79 10^3/uL (1.2-3.4); Absolute Monocyte Count 0.38 10^3/uL (0.1-0.8); Absolute Neutrophil Count 2.01 10^3/uL (1.2-6.7); Basophils % 0.7; Eosinophils % 3.4; HCT 40.8 % (36.0-46.0); Immature Grans % 0.2; MCH 27.8 pg (27.0-33.0); MCHC 31.9 % (32.0-36.0); MCV 87 fL (80-95); MPV 11.3 fL (8.0-11.0); Monocytes % 8.7; Platelet Count 270 10^3/uL (130-400); RBC 4.67 10^6/uL (3.93-5.22); RDW 12.4 % (11.7-14.6); RDW-SD 39.9 fL; WBC 4.37 10^3/uL (4.4-10.8)
[2023-07-11 20:19] LABS: ALT 38 U/L (14-59); AST 18 U/L (15-37); Albumin 3.4 g/dL (3.4-5.0); Alkaline Phosphatase 76 U/L (46-116); Anion Gap 7.1 mmol/L (3-11); BUN 8 mg/dL (7-18); Bilirubin, Total 0.4 mg/dL (0.2-1.0); CO2 30.9 mmol/L (21.0-32.0); Chloride 107 mmol/L (98-107); Estimated GFR 77.24 (mL/min/1.73m2); Glucose 93 mg/dL (74-106); Lipase 17 U/L (16-77); Magnesium 1.9 mg/dL (1.8-2.4); Potassium 3.5 mmol/L (3.5-5.1); Sodium 145 mmol/L (136-145); Total Protein 7.8 g/dL (6.4-8.2); Troponin I < 50 ng/L (< or =60)
[2023-07-11 20:20] LABS: C-Reactive Protein < 0.50 mg/dL (<or=0.5)
--- NOTE | 2023-07-11 20:31 | W.ED.GENAD ---
Discharge Plan Disposition Patient Disposition: Transfer-Acute Inpatient Care Specific Acute Inpt Facility: [facility] Condition: Serious Discharge Details Clinical Impression: Hypoglycemia, Complications of gastric bypass surgery Primary Care Provider: Lia Pearson ED Provider: Cielo Martinez Home Meds and New Rx's Prescriptions: Continued rosuvastatin [Crestor] 40 mg tablet 40 mg PO DAILY doxepin 6 mg tablet 6 mg PO QHS PRN (Reason: sleep) Qty: 90 0RF (DME) lancets [OneTouch UltraSoft Lancets] Misc See Rx Instructions .ROUTE .MEDSUPPLY Qty: 400 3RF Rx Instructions: test ac and hs prn E11.9 to maintain AIC <7 OneTouch Verio (DME) OneTouch Verio test strips Strip See Rx Instructions .ROUTE .MEDSUPPLY Qty: 400 3RF Rx Instructions: to test blood sugars ac and hs to maintain AIC <7, E11.9 glucose [Dex4 Glucose] 4 gram tablet,chewable 4 g PO Q10MIN PRN (Reason: hypoglycemia) Qty: 100 3RF Rx Instructions: until symptoms of low blood sugar are controlled hydroxyzine pamoate 25 mg capsule 25 mg PO BID PRN furosemide 20 mg tablet 20 mg PO .every other day Hold Instructions: Changed by Provider Rx Instructions: Dose change 01/14/23 to allow for more flexibility for fluid h/o CHF (diastolic) chlorpromazine 50 mg tablet 50 mg PO .COMPLEX Rx Instructions: 50 mg tablets: 50 mg AM and 300 mg PM metformin 500 mg tablet extended release 24 hr 1,000 mg PO BID aripiprazole [Abilify] 5 mg tablet 25 mg PO QAM trazodone 300 mg tablet 300 mg PO QHS methocarbamol 500 mg tablet 500 mg PO TID PRN (Reason: muscle spasm of lumbar spine) Qty: 40 0RF (DME) pen needle, diabetic [Pen Needle] 32 gauge x needle See Rx Instructions .ROUTE .MEDSUPPLY Qty: 50 Rx Instructions: bid to administer insulin bid E11.9 levothyroxine 200 mcg tablet 200 mcg PO DAILY gabapentin 300 mg capsule 300 mg PO TID (DME) FreeStyle Toshia 2 [place] Misc See Rx Instructions .Route Rx Instructions: swipe 4-5 times daily per note dated 11/12/21 [facility] cc (DME) FreeStyle Toshia 2 [place] [facility] See Rx Instructions .Route Rx Instructions: Swipe 4-5 x's daily per note dated 12/31/21 [facility] senna 8.6 mg capsule 8.6 mg PO DAILY (DME) Depend Underwear For Women XL [facility] See Rx Instructions .Route Qty: 60 12RF Rx Instructions: 1-2 per day prn (DME) incontinence pad, liner, disp Pad See Rx Instructions .Route Qty: 40 12RF Rx Instructions: 1-2 per day losartan 25 mg tablet See Rx Instructions .ROUTE .COMPLEX Qty: 90 3RF Dose Instruction: TAKE ONE TABLET BY MOUTH EVERY DAY Rx Instructions: TAKE ONE TABLET BY MOUTH EVERY DAY norethindrone acetate 5 mg tablet 10 mg PO TID insulin aspart U-100 [Novolog FlexPen U-100 Insulin] 100 unit/mL (3 mL) insulin pen See Rx Instructions subcut TID Rx Instructions: TDD 40, TID w/ meals based on sliding scale subcutaneously three times a day; 01/29/23 per [facility] note.HE cholecalciferol (vitamin D3) 50 mcg (2,000 unit) capsule See Rx Instructions .ROUTE .COMPLEX Qty: 28 11RF Dose Instruction: TAKE 1 CAPSULE BY MOUTH DAILY Rx Instructions: TAKE 1 CAPSULE BY MOUTH DAILY ferrous gluconate 324 mg (38 mg iron) tablet See Rx Instructions .ROUTE .COMPLEX Qty: 56 11RF Dose Instruction: TAKE 1 TABLET BY MOUTH TWICE A DAY Rx Instructions: TAKE 1 TABLET BY MOUTH TWICE A DAY docusate sodium 100 mg capsule 100 mg PO BID PRN (Reason: constipation) enoxaparin 40 mg/0.4 mL syringe 40 mg subcut Q12H Rx Instructions: x10 days omeprazole 40 mg capsule,delayed release(DR/EC) 40 mg PO DAILY Rx Instructions: x90 days ondansetron 4 mg tablet,disintegrating 4 mg PO Q8H PRN (Reason: nausea) oxycodone 5 mg/5 mL solution 5 mg PO Q6H PRN ursodiol 300 mg capsule 300 mg PO BID Rx Instructions: x 180 days. Start 06/17/2023 per [facility] acetaminophen 325 mg tablet 650 mg PO Q6H PRN (Reason: pain) polyethylene glycol 3350 17 gram/dose powder 17 g PO DAILY insulin glargine [Lantus Solostar U-100 Insulin] 100 unit/mL (3 mL) insulin pen See Rx Instructions subcut .COMPLEX Rx Instructions: 10 Units BID, lower to 8 Units BID, lower to 4 Units BID--[facility] Endo 06/11/23 metoprolol succinate 100 mg tablet extended release 24 hr See Rx Instructions .ROUTE .COMPLEX Qty: 28 11RF Dose Instruction: TAKE 1 TABLET BY MOUTH AT BEDTIME Rx Instructions: TAKE 1 TABLET BY MOUTH AT BEDTIME prazosin [Minipress] 5 mg Capsule 5 mg PO DAILY Trulicity 0.75 mg/0.5 mL pen injector 0.75 mg SUBCUT .weekly glucagon HCl [Glucagon (HCl) Emergency Kit] 1 mg recon soln 1 mg subcut Q20M PRNQty: 1 0RF Rx Instructions: until target blood sugar attained HPI General Date/Time Provider Initiated Documentation: 07/11/23 19:55. HPI Narrative: 33-year-old female with recent Lobo-en-Y gastric bypass, approximately 5 weeks prior to arrival presents with nausea and vomiting for the past week and a half which is worsening. Today patient has been unable to tolerate anything p.o., she had half an egg for breakfast and vomited that. She did take her insulin this morning per patient. She yesterday presented with a glucose of 44 which required supplementation in the field prior to arrival in the emergency department. Today patient states that her pain is improved but she is unable to stop vomiting. She has had decreased urination which she suspects is secondary to dehydration. She denies any shortness of breath. She denies any blood in vomitus. She describes her vomit as a clear yellowish discoloration. She has been trying to take fluids regularly per patient. Related Data Home Medications Medication Instructions Recorded Confirmed prazosin 5 mg capsule (Minipress) 5 mg PO DAILY 06/16/21 07/11/23 gabapentin 300 mg capsule 300 mg PO TID 06/20/21 07/11/23 levothyroxine 200 mcg tablet 200 mcg PO DAILY 06/20/21 07/11/23 pen needle, diabetic 32 gauge x #50 ea 06/20/21 07/11/2332 (Pen Needle) rosuvastatin 40 mg tablet (Crestor) 40 mg PO DAILY 11/03/21 07/11/23 flash glucose scanning reader 11/24/21 07/11/23 (FreeStyle Toshia 2 [place]) flash glucose scanning reader 01/09/22 07/11/23 (FreeStyle Toshia 2 [place]) sennosides 8.6 mg capsule (senna) 8.6 mg PO DAILY 05/06/22 07/11/23 diaper,brief,adult,disposable #60 ea 06/03/22 07/11/23 (Depend Underwear For Women XL) incontinence pad, liner, disp #40 ea 06/03/22 07/11/23 trazodone 300 mg tablet 300 mg PO QHS 07/06/22 07/11/23 losartan 25 mg tablet See Rx Instructions .Route 08/04/22 07/11/23 .COMPLEX #90 tabs blood sugar diagnostic (OneTouch #400 ea 08/17/22 07/11/23 Verio test strips) doxepin 6 mg tablet 6 mg PO QHS PRN sleep #90 tabs 08/17/22 07/11/23 glucose 4 gram chewable tablet 4 g PO Q10MIN PRN hypoglycemia 08/17/22 07/11/23 (Dex4 Glucose) #100 tabs lancets (OneTouch UltraSoft #400 ea 08/17/22 07/11/23 Lancets) norethindrone acetate 5 mg tablet 10 mg PO TID 10/29/22 07/11/23 glucagon HCl 1 mg solution for 1 mg subcut Q20M PRN #1 ea 01/06/23 07/11/23 injection (Glucagon (HCl) Emergency Kit) methocarbamol 500 mg tablet 500 mg PO TID PRN muscle spasm of 01/14/23 07/11/23 lumbar spine #40 tabs insulin aspart U-100 100 unit/mL See Rx Instructions subcut TID 02/02/23 07/11/23 (3 mL) subcutaneous pen (Novolog FlexPen U-100 Insulin aspart) chlorpromazine 50 mg tablet 50 mg PO .COMPLEX 05/03/23 07/11/23 cholecalciferol (vitamin D3) 50 See Rx Instructions .Route 05/12/23 07/11/23 mcg (2,000 unit) capsule .COMPLEX #28 caps ferrous gluconate 324 mg (38 mg See Rx Instructions .Route 05/12/23 07/11/23 iron) tablet .COMPLEX #56 tabs aripiprazole 5 mg tablet (Abilify) 25 mg PO QAM 05/13/23 07/11/23 furosemide 20 mg tablet 20 mg PO .every other day 05/13/23 07/11/23 hydroxyzine pamoate 25 mg capsule 25 mg PO BID PRN 05/13/23 07/11/23 acetaminophen 325 mg tablet 650 mg PO Q6H PRN pain 06/07/23 07/11/23 docusate sodium 100 mg capsule 100 mg PO BID PRN constipation 06/07/23 07/11/23 enoxaparin 40 mg/0.4 mL 40 mg subcut Q12H 06/07/23 07/11/23 subcutaneous syringe omeprazole 40 mg capsule,delayed 40 mg PO DAILY 06/07/23 07/11/23 release ondansetron 4 mg disintegrating 4 mg PO Q8H PRN nausea 06/07/23 07/11/23 tablet oxycodone 5 mg/5 mL oral solution 5 mg PO Q6H PRN 06/07/23 07/11/23 polyethylene glycol 3350 17 17 g PO DAILY 06/07/23 07/11/23 gram/dose oral powder ursodiol 300 mg capsule 300 mg PO BID 06/07/23 07/11/23 metformin 500 mg tablet,extended 1,000 mg PO BID 06/08/23 07/11/23 release 24 hr insulin glargine 100 unit/mL (3 See Rx Instructions subcut .COMPLEX 06/11/23 07/11/23 mL) subcutaneous pen (Lantus Solostar U-100 Insulin) metoprolol succinate 100 mg See Rx Instructions .Route 07/05/23 07/11/23 tablet,extended release 24 hr .COMPLEX #28 tabs dulaglutide 0.75 mg/0.5 mL 0.75 mg subcut .weekly 07/11/23 07/11/23 subcutaneous pen injector (Trulicity) Previous Rx's Medication Instructions Recorded diaper,brief,adult,disposable #60 ea 06/03/22 (Depend Underwear For Women XL) incontinence pad, liner, disp #40 ea 06/03/22 losartan 25 mg tablet See Rx Instructions .Route 08/04/22 .COMPLEX #90 tabs blood sugar diagnostic (OneTouch #400 ea 08/17/22 Verio test strips) doxepin 6 mg tablet 6 mg PO QHS PRN sleep #90 tabs 08/17/22 glucose 4 gram chewable tablet 4 g PO Q10MIN PRN hypoglycemia 08/17/22 (Dex4 Glucose) #100 tabs lancets (OneTouch UltraSoft #400 ea 08/17/22 Lancets) glucagon HCl 1 mg solution for 1 mg subcut Q20M PRN #1 ea 01/06/23 injection (Glucagon (HCl) Emergency Kit) methocarbamol 500 mg tablet 500 mg PO TID PRN muscle spasm of 01/14/23 lumbar spine #40 tabs cholecalciferol (vitamin D3) 50 See Rx Instructions .Route 05/12/23 mcg (2,000 unit) capsule .COMPLEX #28 caps ferrous gluconate 324 mg (38 mg See Rx Instructions .Route 05/12/23 iron) tablet .COMPLEX #56 tabs metoprolol succinate 100 mg See Rx Instructions .Route 07/05/23 tablet,extended release 24 hr .COMPLEX #28 tabs Allergies Allergy/AdvReac Type Severity Reaction Status Date / Time mushrooms Allergy Unknown rash Uncoded 07/10/23 12:36 General Stated Complaint: Abd Prob ALEKSANDR: 3 Course Vital Signs Vital signs: Vital Signs Temperature 36.9 C 07/11/23 19:21 Pulse 78 07/11/23 19:21 Respiratory Rate 15 07/11/23 19:21 Blood Pressure 176/104 H 07/11/23 19:21 Pulse Oximetry 98 07/11/23 19:21 Temperature 36.9 C 07/11/23 19:58 Temperature Source Oral 07/11/23 19:58 Pulse 83 07/11/23 19:58 Pulse 95 H 07/11/23 19:58 Respiratory Rate 18 07/11/23 19:58 Respiratory Effort Normal 07/11/23 19:58 Blood Pressure 176/104 H 07/11/23 19:58 Blood Pressure Mean 102 07/11/23 19:58 Blood Pressure Position Sitting 07/11/23 19:58 Pulse Oximetry 98 07/11/23 19:58 Oxygen Delivery Method Room Air 07/11/23 19:58 Pain Level 0 07/11/23 19:58 Lab/Test Results Lab/Test Results: Laboratory Tests Range/Units 07/11/23 19:48 WBC (4.4-10.8) 10^3/uL 4.37 L RBC (3.93-5.22) 10^6/uL 4.67 Hgb (11.2-15.7) g/dL 13.0 Hct (36.0-46.0) % 40.8 MCV (80-95) fL 87 MCH (27.0-33.0) pg 27.8 MCHC (32.0-36.0) % 31.9 L RDW (11.7-14.6) % 12.4 Plt Count (130-400) 10^3/uL 270 MPV (8.0-11.0) fL 11.3 H Immature Gran % 0.2 Neutrophils % 46.0 Lymphocytes % 41.0 Monocytes % 8.7 Eosinophils % 3.4 Basophils % 0.7 Nucleated RBC % (0.0-0.3) % 0.0 Absolute Neutrophils (1.2-6.7) 10^3/uL 2.01 Absolute Lymphocytes (1.2-3.4) 10^3/uL 1.79 Absolute Monocytes (0.1-0.8) 10^3/uL 0.38 Absolute Eosinophils (0.0-0.7) 10^3/uL 0.15 Absolute Basophils (0.0-0.2) 10^3/uL 0.03 VBG Lactate (0.6-1.4) mmol/L 0.8 Sodium (136-145) mmol/L 145 Potassium (3.5-5.1) mmol/L 3.5 Chloride (98-107) mmol/L 107 Carbon Dioxide (21.0-32.0) mmol/L 30.9 Anion Gap (3-11) mmol/L 7.1 BUN (7-18) mg/dL 8 Creatinine (0.55-1.02) mg/dL 1.0 Est GFR (CKD-EPI 2020) (mL/min/1.73m2) 77.24 Glucose (74-106) mg/dL 93 Calcium (8.5-10.1) mg/dL 9.0 Magnesium (1.8-2.4) mg/dL 1.9 Total Bilirubin (0.2-1.0) mg/dL 0.4 AST (15-37) U/L 18 ALT (14-59) U/L 38 Alkaline Phosphatase (46-116) U/L 76 Troponin I (< or =60) ng/L < 50 C-Reactive Protein (<or=0.5) mg/dL < 0.50 Total Protein (6.4-8.2) g/dL 7.8 Albumin (3.4-5.0) g/dL 3.4 Lipase (16-77) U/L 17 Medical Decision Making This 33-year-old female presents with report of nausea and vomiting. 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 Patient endorses that she left yesterday as she was concerned regarding not having a phone card available Yesterday showed mild hypokalemia, this is resolved today actually patient's labs are reassuring She is alert and oriented and pleasant Her glucose is 92 She has had persistent vomiting, she is receiving Compazine 5 mg now, will repeat and administer Zofran prior to potential departure No indication for repeat CT at this time, reviewed CT from last evening without any significant change in symptoms Case discussed with patient's bariatric surgeon Dr Contreras who reviewed with patient states she and this patient has a stricture and secondary to his symptoms requires transfer to [facility] for care At this time patient is pending transfer, she is hypertensive, I will give additional fluids and antiemetics and reassess She denies any chest pain or shortness of breath blood glucose decreased from 96 to 70 in one hour, so an amp of d50 was administered and pt will be transferred to [facility] in stable condition Quality:SDOH Health Related Social Needs: No Data to Display PFSH All Active Problems (Updated 07/11/23 @ 22:44 by DIANE Estevez) Complications of gastric bypass surgery (Acute) Hypoglycemia (Acute) Hypomagnesemia (Acute) Hypoglycemia after GI (gastrointestinal) surgery (Acute) Chest pain, unspecified (Acute) Left chest pressure (Acute) COVID (Acute ~04/2023) Schizoaffective disorder, unspecified (Acute) Menorrhagia (Chronic ~2021) Managed with IUD & norethidrone Insomnia (Acute ~07/2022) Constipation by delayed colonic transit (Chronic) Senna Class 3 severe obesity without serious comorbidity with body mass index (BMI) of 60.0 to 69.9 in adult (Acute) Hypothyroid (Chronic) [facility] Endo Schizoaffective disorder, bipolar type (Chronic) [facility] PTSD (post-traumatic stress disorder) (Chronic) [facility] Morbid obesity (Chronic) BMI >60, Class 3 severe obesity Obstructive sleep apnea (adult) (pediatric) (Chronic ~2007) C-PAP; [facility] T2DM (type 2 diabetes mellitus) (Chronic ~2010) [place]; [facility] Endo Goal: <7% Dependent for transportation (Chronic) RCT Heart failure with preserved ejection fraction (Acute) Severe nonproliferative diabetic retinopathy (Chronic ~10/2021) Major depressive disorder, single episode, mild (Acute 05/11/21) Onychauxis (Acute) [facility] Podiatry Vitamin D deficiency (Acute ~02/2022) Medical History (Updated 07/11/23 @ 22:44 by DIANE Estevez) Abnormal vaginal bleeding 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 Diabetic macular edema (~10/2021) Papilledema (~11/2021) Hypoglycemia associated with diabetes (~10/2021) Coagulopathy (~09/2021) ?VWD; [facility] Heme consult NEG Cardiomegaly Dissociative identity disorder (~2014) Plantar fasciitis Iron deficiency anemia due to chronic blood loss Menorrhagia with irregular cycle IUD placed at [facility] Feb 2022, normal endo bx. Bleeding improved. On Northindrone 5mg BID Abnormal CAT scan abscess at right gluteal area/coccyx, early osteomyelitis? Mixed hyperlipidemia Surgical History (Updated 06/28/23 @ 16:54 by Megan Antonie) H/O gastric bypass (~06/03/23) Laparoscopic Lobo en Y-[facility] History of hysteroscopy hysteroscopy D&C, Mirena IUD placement 03/07 @ [facility] History of Lobo-en-Y gastric bypass Done 06/03/2023 at [facility] Dr.Thadeus Contreras Status post embolization of uterine artery (~09/2022) [facility] 10/13/22; s/p vaginal/uterine hemorrhage Family History Father Diabetes Alcohol use disorder Mother Seizure disorder Other Factor VIII (functional) deficiency Fibroids Social History (Reviewed 02/10/23 @ 13:04 by RICHARD Gramajo Smoking/Tobacco Use Status: Never Second Hand Exposure: No Smoking risk assessment performed?: Yes Alcohol Intake: former Drug use: Rarely Adopted: Yes Caregiver/Support person: No Foster care: Yes Household members: none Housing: apartment Number of Children: 0 Communication Needs: None Education Level: college Details: associate's degree Do you need help understanding health information?: Never current occupation: [employer] Pets and animals: No Sexually active: No Do you think of yourself as: ??asexual Current gender identity: female What is your relationship status?: never How often do you talk on the phone with friends or family?: three or more times per week How often do you get together with friends or relatives?: never Do you belong to any clubs or organized social groups?: no Panel score (0-1 are the most socially isolated patients): 1 What type of physical activity do you participate in: walking Duration: < 15 minutes/day Frequency: 1-2 times per week Vane/Muslim: None Special vane needs: No Seatbelt use: sometimes Helmet use: No Drive intox or ride w/intox hog driver: No Do you feel safe at home: Yes Do you feel safe in your relationship?: Yes Female Reproductive History Menstrual Age of Menarche: 13 Duration of menses: >10 days control method: none History History 0 Para Hx # Term Pregnancies Multiple births Hx # Pregnancies Ectopic pregnancies AB induced Hx Number of Living Children AB spontaneous
[2023-07-11] MEDS: Lactated Ringers 1,000 ML 500 ML IV (21:34)
[2023-07-11] MEDS: Dextrose 25%-Water 10 ML SYR IVP (22:01)
[2023-07-11] MEDS: Dextrose 50%-Water 25 GM/50 ML SYR IVP (22:19)
--- NOTE | 2023-07-11 22:48 | NUR.NOTE ---
report called to nurse at [facility] Surgical Floor 4C, pt leaving now with ambulance
[2023-07-11] MEDS: DEXTROSE 5%-WATER 1,000 ML 150 ML IV (23:32)
[2023-07-12] VITALS: PULSE 83; RESP 13
== END 2023-07-12 00:30 | disposition short-term general hospital (02) ==
PROVIDERS: Emergency Provider Physician Assistant; PCP Nurse Practitioner Adult Health
DX: K95.89 Other complications of other bariatric procedure (principal); E11.649 Type 2 diabetes mellitus with hypoglycemia without coma; Z79.4 Long term (current) use of insulin; Z98.84 Bariatric surgery status
CPT/HCPCS: 80053; 82962; 83690; 86850; 86900; 86901; 93005; 96361; 96374; 99285; 83605; 83735; 84484; 85025; 86140; 93010; J0780; J7060

== ENCOUNTER 2023-09-11 17:08 | Emergency (ER) | payer MEDICARE, MEDICAID, SELFPAY ==
[2023-09-11] VITALS (34 sets, daily range): BP systolic 98–159; BP diastolic 37–84; PULSE 84–115; RESP 6–29; TEMP 36.6; O2SAT 96–100
--- NOTE | 2023-09-11 17:00 | RT.EKG_ITS ---
APPROVED REPORT Exam: Resting ECG Reason for Exam: chest pain Patient Location: E HR:109 bpm ECG Measurements Heart Rate 109 AXIS MI 147 P 46 QRSd 85 QRS 24 QT 329 T 9 QTc 444 Conclusion Sinus tachycardia...rate> 99 Consider anterior infarct...Q >30mS in V2-V5 sinus tachycardua, normal axis, normal intervals, non ischemic
--- NOTE | 2023-09-11 17:15 | DI.RAD_ITS ---
Exam(s) XR CHEST 2V PA LATERAL EXAM: XR CHEST 2V PA LATERAL CLINICAL HISTORY: chest pain. TECHNIQUE: 2D digital imaging was performed. COMPARISON: CR XR PORTABLE CHEST AP from 01/05/2023 FINDINGS: 2 views: Heart size is normal. The mediastinum is not widened. Lungs are clear. No infiltrates nor pleural effusions. IMPRESSION: No acute pulmonary findings. DATA REPOSITORY: RADIATION DOSE DELIVERED:
--- NOTE | 2023-09-11 17:19 | W.ED.GENAD ---
Discharge Plan Disposition Patient Disposition: Home Condition: Improving Discharge Details Chief Complaint: Chest Pain Clinical Impression: Chest pain Primary Care Provider: Lia Pearson ED Provider: Sadiq Gallegos Home Meds and New Rx's Prescriptions: No Action rosuvastatin [Crestor] 40 mg tablet 40 mg PO DAILY doxepin 6 mg tablet 6 mg PO QHS PRN (Reason: sleep) Qty: 90 0RF (DME) lancets [OneTouch UltraSoft Lancets] Misc See Rx Instructions .ROUTE .MEDSUPPLY Qty: 400 3RF Rx Instructions: test ac and hs prn E11.9 to maintain AIC <7 OneTouch Verio (DME) OneTouch Verio test strips Strip See Rx Instructions .ROUTE .MEDSUPPLY Qty: 400 3RF Rx Instructions: to test blood sugars ac and hs to maintain AIC <7, E11.9 glucose [Dex4 Glucose] 4 gram tablet,chewable 4 g PO Q10MIN PRN (Reason: hypoglycemia) Qty: 100 3RF Rx Instructions: until symptoms of low blood sugar are controlled hydroxyzine pamoate 25 mg capsule 25 mg PO BID PRN furosemide 20 mg tablet 20 mg PO .every other day Hold Instructions: Changed by Provider Rx Instructions: Dose change 01/14/23 to allow for more flexibility for fluid h/o CHF (diastolic) chlorpromazine 50 mg tablet 50 mg PO .COMPLEX Rx Instructions: 50 mg tablets: 50 mg AM and 300 mg PM metformin 500 mg tablet extended release 24 hr 1,000 mg PO BID aripiprazole [Abilify] 5 mg tablet 25 mg PO QAM trazodone 300 mg tablet 300 mg PO QHS methocarbamol 500 mg tablet 500 mg PO TID PRN (Reason: muscle spasm of lumbar spine) Qty: 40 0RF (DME) pen needle, diabetic [Pen Needle] 32 gauge x needle See Rx Instructions .ROUTE .MEDSUPPLY Qty: 50 Rx Instructions: bid to administer insulin bid E11.9 levothyroxine 200 mcg tablet 200 mcg PO DAILY gabapentin 300 mg capsule 300 mg PO TID (DME) FreeStyle Toshia 2 [place] Misc See Rx Instructions .Route Rx Instructions: swipe 4-5 times daily [place] 11[place]12[place] [facility] [place] FreeStyle Toshia [facility] [place] Misc See Rx Instructions .Route Rx Instructions: Swipe 4-5 x's daily per note dated 12/31/21 [facility] senna 8.6 mg capsule 8.6 mg PO DAILY (DME) [facility] [employer] [employer] [facility] [place] [facility] [place] Rx Instructions .Route Qty: 60 12RF Rx Instructions: 1-2 per day prn (DME) incontinence pad, liner, disp Pad See Rx Instructions .Route Qty: 40 12RF Rx Instructions: 1-2 per day norethindrone acetate 5 mg tablet 10 mg PO TID cholecalciferol (vitamin D3) 50 mcg (2,000 unit) capsule See Rx Instructions .ROUTE .COMPLEX Qty: 28 11RF Dose Instruction: TAKE 1 CAPSULE BY MOUTH DAILY Rx Instructions: TAKE 1 CAPSULE BY MOUTH DAILY ferrous gluconate 324 mg (38 mg iron) tablet See Rx Instructions .ROUTE .COMPLEX Qty: 56 11RF Dose Instruction: TAKE 1 TABLET BY MOUTH TWICE A DAY Rx Instructions: TAKE 1 TABLET BY MOUTH TWICE A DAY docusate sodium 100 mg capsule 100 mg PO BID PRN (Reason: constipation) enoxaparin 40 mg/0.4 mL syringe 40 mg subcut Q12H Rx Instructions: x10 days omeprazole 40 mg capsule,delayed release(DR/EC) 40 mg PO DAILY Rx Instructions: x90 days ondansetron 4 mg tablet,disintegrating 4 mg PO Q8H PRN (Reason: nausea) oxycodone 5 mg/5 mL solution 5 mg PO Q6H PRN ursodiol 300 mg capsule 300 mg PO BID Rx Instructions: x 180 days. Start 06/17/2023 [place] [facility] [place]aminophen 325 mg tablet 650 mg PO Q6H PRN (Reason: pain) polyethylene glycol 3350 17 gram/dose powder 17 g PO DAILY metoprolol succinate 100 mg tablet extended release 24 hr See Rx Instructions .ROUTE .COMPLEX Qty: 28 11RF Dose Instruction: TAKE 1 TABLET BY MOUTH AT BEDTIME Rx Instructions: TAKE 1 TABLET BY MOUTH AT BEDTIME losartan 100 mg tablet 100 mg PO DAILY dapagliflozin propanediol [Farxiga] 5 mg tablet 5 mg PO DAILY prazosin [Minipress] 5 mg capsule 10 mg PO DAILY insulin lispro [Humalog U-100 Insulin] 100 unit/mL solution 1 sliding scale dose subcut USEASDIRECTD Rx Instructions: Inject SQ Three times a day before meals. BG over 200-240 2 units, GB 241-270 3 units, BG 271-310 4 units. glucagon HCl [Glucagon (HCl) Emergency Kit] 1 mg recon soln 1 mg subcut Q20M PRNQty: 1 0RF Rx Instructions: until target blood sugar attained Discharge Instructions Instructions: Chest Pain (ED) Additional Instructions: Please follow-up with your primary care physician. Please return to the emergency department for any worsening symptoms HPI General Date/Time Provider Initiated Documentation: 09/11/23 17:14. HPI Narrative: 33-year-old female history of obesity diabetes, presents with anterior chest pain not exertional in nature, nonradiating, no associated shortness of breath nausea vomiting or diaphoresis. Currently asymptomatic. Denies history of thromboembolic disease or coronary disease Related Data Home Medications Medication Instructions Recorded Confirmed gabapentin 300 mg capsule 300 mg PO TID 06/20/21 09/11/23 levothyroxine 200 mcg tablet 200 mcg PO DAILY 06/20/21 09/11/23 pen needle, diabetic 32 gauge x #50 ea 06/20/21 09/11/23 (Pen Needle) rosuvastatin 40 mg tablet (Crestor) 40 mg PO DAILY 11/03/21 09/11/23 flash glucose scanning reader 11/24/21 09/11/23 (FreeStyle T[place]ia 2 [place]) flash glucose scanning reader 01/09/22 09/11/23 (FreeStyle Toshia 2 [place]) sennosides 8.6 mg capsule (senna) 8.6 mg PO DAILY 05/06/22 09/11/23 diaper,brief,adult,disposable #60 ea 06/03/22 09/11/23 (Depend Underwear For Women XL) incontinence pad, liner, disp #40 ea 06/03/22 09/11/23 trazodone 300 mg tablet 300 mg PO QHS 07/06/22 09/11/23 blood sugar diagnostic (OneTouch #400 ea 08/17/22 09/11/23 Verio test strips) doxepin 6 mg tablet 6 mg PO QHS PRN sleep #90 tabs 08/17/22 09/11/23 glucose 4 gram chewable tablet 4 g PO Q10MIN PRN hypoglycemia 08/17/22 09/11/23 (Dex4 Glucose) #100 tabs lancets (OneTouch UltraSoft #400 ea 08/17/22 09/11/23 Lancets) norethindrone acetate 5 mg tablet 10 mg PO TID 10/29/22 09/11/23 glucagon HCl 1 mg solution for 1 mg subcut Q20M PRN #1 ea 01/06/23 09/11/23 injection (Glucagon (HCl) Emergency Kit) methocarbamol 500 mg tablet 500 mg PO TID PRN muscle spasm of 01/14/23 09/11/23 lumbar spine #40 tabs chlorpromazine 50 mg tablet 50 mg PO .COMPLEX 05/03/23 09/11/23 cholecalciferol (vitamin D3) 50 See Rx Instructions .Route 05/12/23 09/11/23 mcg (2,000 unit) capsule .COMPLEX #28 caps ferrous gluconate 324 mg (38 mg See Rx Instructions .Route 05/12/23 09/11/23 iron) tablet .COMPLEX #56 tabs aripiprazole 5 mg tablet (Abilify) 25 mg PO QAM 05/13/23 09/11/23 furosemide 20 mg tablet 20 mg PO .every other day 05/13/23 09/11/23 hydroxyzine pamoate 25 mg capsule 25 mg PO BID PRN 05/13/23 09/11/23 acetaminophen 325 mg tablet 650 mg PO Q6H PRN pain 06/07/23 09/11/23 docusate sodium 100 mg capsule 100 mg PO BID PRN constipation 06/07/23 09/11/23 enoxaparin 40 mg/0.4 mL 40 mg subcut Q12H 06/07/23 09/11/23 subcutaneous syringe omeprazole 40 mg capsule,delayed 40 mg PO DAILY 06/07/23 09/11/23 release ondansetron 4 mg disintegrating 4 mg PO Q8H PRN nausea 06/07/23 09/11/23 tablet oxycodone 5 mg/5 mL oral solution 5 mg PO Q6H PRN 06/07/23 09/11/23 polyethylene glycol 3350 17 17 g PO DAILY 06/07/23 09/11/23 gram/dose oral powder ursodiol 300 mg capsule 300 mg PO BID 06/07/23 09/11/23 metformin 500 mg tablet,extended 1,000 mg PO BID 06/08/23 09/11/23 release 24 hr metoprolol succinate 100 mg See Rx Instructions .Route 07/05/23 09/11/23 tablet,extended release 24 hr .COMPLEX #28 tabs dapagliflozin propanediol 5 mg 5 mg PO DAILY 07/15/23 09/11/23 tablet (Farxiga) insulin lispro 100 unit/mL 1 sliding scale dose subcut 07/15/23 09/11/23 subcutaneous solution (Humalog USEASDIRECTD U-100 Insulin) losartan 100 mg tablet 100 mg PO DAILY 07/15/23 09/11/23 prazosin 5 mg capsule (Minipress) 10 mg PO DAILY 07/15/23 09/11/23 Previous Rx's Medication Instructions Recorded diaper,brief,adult,disposable #60 ea 06/03/22 (Depend Underwear For Women XL) incontinence pad, liner, disp #40 ea 06/03/22 blood sugar diagnostic (OneTouch #400 ea 08/17/22 Verio test strips) doxepin 6 mg tablet 6 mg PO QHS PRN sleep #90 tabs 08/17/22 glucose 4 gram chewable tablet 4 g PO Q10MIN PRN hypoglycemia 08/17/22 (Dex4 Glucose) #100 tabs lancets (OneTouch UltraSoft #400 ea 08/17/22 Lancets) glucagon HCl 1 mg solution for 1 mg subcut Q20M PRN #1 ea 01/06/23 injection (Glucagon (HCl) Emergency Kit) methocarbamol 500 mg tablet 500 mg PO TID PRN muscle spasm of 01/14/23 lumbar spine #40 tabs cholecalciferol (vitamin D3) 50 See Rx Instructions .Route 05/12/23 mcg (2,000 unit) capsule .COMPLEX #28 caps ferrous gluconate 324 mg (38 mg See Rx Instructions .Route 05/12/23 iron) tablet .COMPLEX #56 tabs metoprolol succinate 100 mg See Rx Instructions .Route 07/05/23 tablet,extended release 24 hr .COMPLEX #28 tabs Allergies Allergy/AdvReac Type Severity Reaction Status Date / Time mushrooms Allergy Unknown rash Uncoded 09/11/23 17:42 General Stated Complaint: Chest Pain ALEKSANDR: 2 Review of Systems Narrative: Review of Systems Constitutional: negative Eyes: negative ENT: negative Cardiovascular: Chest pain Respiratory: negative Gastrointestinal: negative : negative Musculoskeletal: negative Skin: negative Neurologic: negative Psych: negative Exam Narrative Exam Narrative: Physical Examination General: alert, awake, cooperative, resting comfortably, no acute distress HEENT: normocephalic, atraumatic; PERRL, EOM intact, conjunctiva normal; no nasal discharge; moist mucous membranes, oral and pharyngeal mucosa normal, tolerating secretions Neck: supple, trachea midline; full ROM Chest: normal to inspection Respiratory: normal respiratory effort, speaking in full sentences, clear to auscultation, no wheezing, rales or rhonchi Cardiac: regular rate, regular rhythm, S1S2 intact, no murmurs rubs or gallops GI: abdomen soft, non-tender, non-distended; no palpable mass or hepatosplenomegaly Skin: no lesions, rashes or trauma appreciated Neuro: AAOx3, normal speech, moving all extremities Extremities: No peripheral edema Psych: Appropriate mood and affect Course Vital Signs Vital signs: Vital Signs Temperature 36.6 C 09/11/23 17:09 Pulse 109 H 09/11/23 17:09 Respiratory Rate 16 09/11/23 17:09 Blood Pressure 103/37 L 09/11/23 17:09 Pulse Oximetry 99 09/11/23 17:09 Temperature 36.6 C 09/11/23 17:09 Temperature Source Oral 09/11/23 17:09 Pulse 109 H 09/11/23 17:09 Respiratory Rate 16 09/11/23 17:09 Blood Pressure 103/37 L 09/11/23 17:09 Pulse Oximetry 99 09/11/23 17:09 Oxygen Delivery Method Room Air 09/11/23 17:09 Oxygen Flow Rate 0 09/11/23 17:09 Medical Decision Making 33-year-old female history of obesity diabetes presents with anterior chest pain nonexertional nonradiating no associated diaphoresis nausea vomiting shortness of breath palpitations or lightheadedness. Patient is asymptomatic currently. EKG normal sinus rhythm normal axis normal intervals nonischemic, patient has no prior history of coronary disease or thromboembolic disease. Patient is not on any exogenous estrogen. No peripheral edema or leg pain. Mildly tachycardic on arrival normotensive afebrile nontoxic. Abdomen soft nontender nondistended. Consider musculoskeletal discomfort versus anxiety versus less likely ACS versus less likely PE versus less likely aortic pathology given history and physical, no signs of abdominal process as patient has no nausea vomiting or abdominal tenderness or distention on examination. Will obtain screening labs troponin EKG chest x-ray close reassessment likely home with close follow-up 20: 44 patient resting comfortably no acute distress heart rate 99 bpm, no chest pain or shortness of breath. Labs and imaging unremarkable. Patient given dextrose on arrival due to relative hypoglycemia, tolerating p.o. Quality:[facility] Health Related Social Needs: No Data to Display [facility] All Active Problems (Updated 09/11/23 @ 20:44 by Sadiq Gallegos MD) Chest pain (Acute) Nightmare disorder (Acute) Sleep Note 05/26/22 likely related to her PTSD/Psych history-- Left chest pressure (Acute) COVID (Acute ~04/2023) Schizoaffective disorder, unspecified (Acute) Menorrhagia (Chronic ~2021) Managed with IUD & norethidrone Insomnia (Acute ~07/2022) Constipation by delayed colonic transit (Chronic) Senna Class 3 severe obesity without serious comorbidity with body mass index (BMI) of 60.0 to 69.9 in adult (Acute) Hypothyroid (Chronic) [facility] Schizoaffective disorder, bipolar type (Chronic) [facility] PTSD (post-traumatic stress disorder) (Chronic) [facility] Morbid obesity (Chronic) BMI >60, Class 3 severe obesity Obstructive sleep apnea (adult) (pediatric) (Chronic ~2007) C-PAP; [facility] T2DM (type 2 diabetes mellitus) (Chronic ~2010) [place]; [facility] Endo Goal: <7% Dependent for transportation (Chronic) RCT Heart failure with preserved ejection fraction (Acute) Severe nonproliferative diabetic retinopathy (Chronic ~10/2021) Major depressive disorder, single episode, mild (Acute 05/11/21) Onychauxis (Acute) [facility] Podiatry Vitamin D deficiency (Acute ~02/2022) Medical History (Updated 09/11/23 @ 20:44 by Sadiq Gallegos MD) Abnormal vaginal bleeding September 2022: [facility]OB[facility]; 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 Diabetic macular edema (~10/2021) Papilledema (~11/2021) Hypoglycemia associated with diabetes (~10/2021) Coagulopathy (~09/2021) [place] [facility] [place] Cardiomegaly Dissociative identity disorder (~2014) Plantar fasciitis Iron deficiency anemia due to chronic blood loss Menorrhagia with irregular cycle [place] [facility] [place], normal endo bx. Bleeding improved. On Northindrone 5mg BID Abnormal CAT scan abscess at right gluteal area/coccyx, early osteomyelitis? Mixed hyperlipidemia Surgical History (Updated 06/28/23 @ 16:54 by Megan Antoine) H/O gastric bypass (~06/03/23) [place]ar[place] [place] of hysteroscopy hysteroscopy D&C, [place]rena IUD [place] 03/07 [place] [facility] [place] History of Lobo-en-Y gastric bypass Done [place]03[place] [facility] [place]Thadeus Contreras Status post embolization of uterine artery (~09/2022) [facility] [place]; s/p vaginal/uterine hemorrhage Family History Father Diabetes Alcohol use disorder Mother Seizure disorder Other Factor VIII (functional) deficiency Fibroids Social History Smoking/Tobacco Use Status: Never Second Hand Exposure: No Smoking risk assessment performed?: Yes Alcohol Intake: former Drug use: Never Substance use type: does not use Adopted: Yes Caregiver/Support person: No Foster care: Yes Household members: none Housing: apartment Number of Children: 0 Communication Needs: None Education Level: college Details: associate's degree Do you need help understanding health information?: Never current occupation: [employer] Pets and animals: No Sexually active: No Do you think of yourself as: ??asexual Current gender identity: female What is your relationship status?: never How often do you talk on the phone with friends or family?: three or more times per week How often do you get together with friends or relatives?: never Do you belong to any clubs or organized social groups?: no Panel score (0-1 are the most socially isolated patients): 1 What type of physical activity do you participate in: walking Duration: < 15 minutes/day Frequency: 1-2 times per week Vane/Faith: None Special vane needs: No Seatbelt use: sometimes Helmet use: No Drive intox or ride w/intox driver license examiner: No Do you feel safe at home: Yes Do you feel safe in your relationship?: Yes Female Reproductive History Menstrual Age of Menarche: 13 Duration of menses: >10 days control method: none History History 0 Para Hx # Term Pregnancies Multiple births Hx # Pregnancies Ectopic pregnancies AB induced Hx Number of Living Children AB spontaneous
[2023-09-11 17:39] LABS: Abs Immature Grans 0.04 10^3/uL (0.0-0.06); Absolute Basophil Count 0.01 10^3/uL (0.0-0.2); Absolute Eosinophil Count 0.15 10^3/uL (0.0-0.7); Absolute Lymphocyte Count 1.95 10^3/uL (1.2-3.4); Absolute Neutrophil Count 2.96 10^3/uL (1.2-6.7); Basophils % 0.2; Eosinophils % 2.7; HCT 38.1 % (36.0-46.0); HGB 12.1 g/dL (11.2-15.7); Immature Grans % 0.7; Lymphocytes % 34.8; MCHC 31.8 % (32.0-36.0); MCV 88 fL (80-95); MPV 10.3 fL (8.0-11.0); Monocytes % 8.9; Neutrophils % 52.7; Platelet Count 304 10^3/uL (130-400); RBC 4.32 10^6/uL (3.93-5.22); RDW 13.8 % (11.7-14.6); RDW-SD 44.5 fL; WBC 5.61 10^3/uL (4.4-10.8)
[2023-09-11 17:53] LABS: INR 0.9 (0.9-1.1); PTT Activated 23.5 sec (23.6-32.8); Prothrombin Time 9.4 sec (9.1-11.1)
[2023-09-11 17:56] LABS: ALT 36 U/L (14-59); AST 20 U/L (15-37); Alkaline Phosphatase 72 U/L (46-116); Anion Gap 7.9 mmol/L (3-11); BUN 14 mg/dL (7-18); Bilirubin, Total 0.3 mg/dL (0.2-1.0); CO2 26.1 mmol/L (21.0-32.0); Calcium 8.6 mg/dL (8.5-10.1); Chloride 107 mmol/L (98-107); Estimated GFR 77.24 (mL/min/1.73m2); Glucose 69 mg/dL (74-106); Potassium 3.5 mmol/L (3.5-5.1); Sodium 141 mmol/L (136-145); Total Protein 7.2 g/dL (6.4-8.2)
[2023-09-11 17:58] LABS: Troponin I < 50 ng/L (< or =60)
[2023-09-11] MEDS: Dextrose 50%-Water 25 GM/50 ML SYR IVP (18:30)
--- NOTE | 2023-09-11 18:36 | DI.VRAD_ITS ---
PROCEDURE INFORMATION: Exam: XR Chest Exam date and time: 09/11/2023 5:58 PM Age: 33 years old Clinical indication: Other: Chest pain TECHNIQUE: Imaging protocol: Radiologic exam of the chest. Views: 2 views. COMPARISON: CT CHEST/ABD/PEL W 10/07/2023 15:11 FINDINGS: Lungs: Low lung volumes. No consolidation. Pleural spaces: Unremarkable. No pleural effusion. No pneumothorax. Heart/Mediastinum: Unremarkable. No cardiomegaly. Bones/joints: Unremarkable for patient's age. IMPRESSION: No acute cardiopulmonary findings. Dictated and Authenticated by: Andria Monroe MD. Ordering:QUIANA Babcock MD
== END 2023-09-11 21:00 | disposition home or self-care (01) ==
PROVIDERS: Emergency Provider Emergency Medicine; PCP Nurse Practitioner Adult Health
DX: R11.2 Nausea with vomiting, unspecified (principal); R07.9 Chest pain, unspecified; E11.3213 Type 2 diabetes mellitus with mild nonproliferative diabetic retinopathy with macular edema, bilateral; Z79.84 Long term (current) use of oral 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 drugs; Z79.4 Long term (current) use of insulin; Z98.84 Bariatric surgery status
CPT/HCPCS: 36415; 80053; 82962; 93005; 99284; 71046; 84484; 85025; 85610; 85730; 93010

== ENCOUNTER 2023-11-26 18:44 | Emergency (ER) | payer MEDICARE, MEDICAID, SELFPAY ==
[2023-11-26] VITALS (40 sets, daily range): BP systolic 78–180; BP diastolic 23–90; PULSE 93–132; RESP 3–34; TEMP 36.7; O2SAT 96–100
--- NOTE | 2023-11-26 18:45 | RT.EKG_ITS ---
APPROVED REPORT Exam: Resting ECG Reason for Exam: unresponsive Patient Location: E HR:102 bpm ECG Measurements Heart Rate 102 AXIS PA 165 P 49 QRSd 81 QRS 16 QT 329 T 9 QTc 428 Conclusion Sinus tachycardia...rate> 99 Low voltage, precordial leads...precordial leads <1.0mV Consider anterior infarct...Q >30mS in V2-V5
--- NOTE | 2023-11-26 19:10 | ED.GENADUL_ITS ---
Discharge Plan Disposition Patient Disposition: Home Condition: Stable Discharge Details Clinical Impression: Nausea & vomiting, Abdominal pain, Hypoglycemia Primary Care Provider: Lia Pearson ED Provider: Suresh Grimaldo Terry Meds and New Rx's Prescriptions: New ondansetron 4 mg tablet,disintegrating 4 mg PO Q8H PRN (Reason: nausea and vomiting) Qty: 30 0RF amoxicillin-pot clavulanate 875-125 mg tablet 1 tab PO BID Qty: 14 0RF prednisone 20 mg tablet 60 mg PO DAILY 4 Days Qty: 12 0RF ondansetron 4 mg tablet,disintegrating 4 mg PO Q8H PRN (Reason: nausea and vomiting) Qty: 30 0RF doxycycline hyclate 100 mg tablet 100 mg PO BID Qty: 14 0RF Continued rosuvastatin [Crestor] 40 mg tablet 40 mg PO DAILY doxepin 6 mg tablet 6 mg PO QHS PRN (Reason: sleep) Qty: 90 0RF (DME) lancets [OneTouch UltraSoft Lancets] Misc See Rx Instructions .ROUTE .MEDSUPPLY Qty: 400 3RF Rx Instructions: test ac and hs prn E11.9 to maintain AIC <7 OneTouch Verio (DME) OneTouch Verio test strips Strip See Rx Instructions .ROUTE .MEDSUPPLY Qty: 400 3RF Rx Instructions: to test blood sugars ac and hs to maintain AIC <7, E11.9 glucose [Dex4 Glucose] 4 gram tablet,chewable 4 g PO Q10MIN PRN (Reason: hypoglycemia) Qty: 100 3RF Rx Instructions: until symptoms of low blood sugar are controlled hydroxyzine pamoate 25 mg capsule 25 mg PO BID PRN furosemide 20 mg tablet 20 mg PO .every other day Rx Instructions: Dose change 01/14/23 to allow for more flexibility for fluid h/o CHF (diastolic) chlorpromazine 50 mg tablet 50 mg PO .COMPLEX Rx Instructions: 50 mg tablets: 50 mg AM and 300 mg PM metformin 500 mg tablet extended release 24 hr 1,000 mg PO BID aripiprazole [Abilify] 5 mg tablet 25 mg PO QAM trazodone 300 mg tablet 300 mg PO QHS methocarbamol 500 mg tablet 500 mg PO TID PRN (Reason: muscle spasm of lumbar spine) Qty: 40 0RF (DME) pen needle, diabetic [Pen Needle] 32 gauge x needle See Rx Instructions .ROUTE .MEDSUPPLY Qty: 50 Rx Instructions: bid to administer insulin bid E11.9 levothyroxine 200 mcg tablet 200 mcg PO DAILY gabapentin 300 mg capsule 300 mg PO TID (DME) Free[facility] T[facility] [place] [facility] See Rx Instructions .Route Rx Instructions: swipe 4-5 times daily per note dated 11/12/21 [facility] cc (DME) FreeStyle Toshia [address] [place] [facility] See Rx Instructions .Route Rx Instructions: Swipe 4-5 x's daily per note dated 12/31/21 [facility] senna 8.6 mg capsule 8.6 mg PO DAILY (DME) Depend Underwear For Women XL [facility] See Rx Instructions .Route Qty: 60 12RF Rx Instructions: 1-2 per day prn (DME) incontinence pad, liner, disp Pad See Rx Instructions .Route Qty: 40 12RF Rx Instructions: 1-2 per day norethindrone acetate 5 mg tablet 10 mg PO TID cholecalciferol (vitamin D3) 50 mcg (2,000 unit) capsule See Rx Instructions .ROUTE .COMPLEX Qty: 28 11RF Dose Instruction: TAKE 1 CAPSULE BY MOUTH DAILY Rx Instructions: TAKE 1 CAPSULE BY MOUTH DAILY ferrous gluconate 324 mg (38 mg iron) tablet See Rx Instructions .ROUTE .COMPLEX Qty: 56 11RF Dose Instruction: TAKE 1 TABLET BY MOUTH TWICE A DAY Rx Instructions: TAKE 1 TABLET BY MOUTH TWICE A DAY docusate sodium 100 mg capsule 100 mg PO BID PRN (Reason: constipation) enoxaparin 40 mg/0.4 mL syringe 40 mg subcut Q12H Rx Instructions: x10 days omeprazole 40 mg capsule,delayed release(DR/EC) 40 mg PO DAILY Rx Instructions: x90 days ondansetron 4 mg tablet,disintegrating 4 mg PO Q8H PRN (Reason: nausea) ursodiol 300 mg capsule 300 mg PO BID Rx Instructions: x 180 days. Start 06/17/2023 per [facility] acetaminophen 325 mg tablet 650 mg PO Q6H PRN (Reason: pain) polyethylene glycol 3350 17 gram/dose powder 17 g PO DAILY metoprolol succinate 100 mg tablet extended release 24 hr See Rx Instructions .ROUTE .COMPLEX Qty: 28 11RF Dose Instruction: TAKE 1 TABLET BY MOUTH AT BEDTIME Rx Instructions: TAKE 1 TABLET BY MOUTH AT BEDTIME losartan 100 mg tablet 100 mg PO DAILY dapagliflozin propanediol [Farxiga] 5 mg tablet 5 mg PO DAILY prazosin [Minipress] 5 mg capsule 10 mg PO DAILY insulin lispro [Humalog U-100 Insulin] 100 unit/mL solution 1 sliding scale dose subcut USEASDIRECTD Rx Instructions: Inject SQ Three times a day before meals. BG over 200-240 2 units, GB 241-270 3 units, BG 271-310 4 units. glucagon HCl [Glucagon (HCl) Emergency Kit] 1 mg recon soln 1 mg subcut Q20M PRNQty: 1 0RF Rx Instructions: until target blood sugar attained Discharge Instructions Additional Instructions: Your blood work and CAT scan showed no concerning findings related to your bypass surgery. You did have evidence of inflammation in your lungs which you are being put on prednisone, doxycycline and augmentin for. Follow-up with your primary care provider within 1 week if symptoms continue If you feel more ill, have severe worsening pain or persistent vomiting return to the emergency department for reevaluation HPI General Date/Time Provider Initiated Documentation: 11/26/23 18:46 . Limitations to Documentation: no limitations . Information obtained by: patient . History of Present Illness 33 year old F presents to the emergency department with the chief complaint of n/v, described as moderate, and is localized to the abdomen. Patient reports no radiation. Patient started experiencing this hour(s) (6) and it has been constant. No relieving factors improve symptom(s), No exacerbating factors reported . Patient notes denies chest pain and fever/chills. Patient did receive the following treatments prior to arrival, none Related Data Home Medications ?Medication ?Instructions ?Recorded ?Confirmed gabapentin 300 mg capsule 300 mg PO TID 06/20/21 11/26/23 levothyroxine 200 mcg tablet 200 mcg PO DAILY 06/20/21 11/26/23 pen needle, diabetic 32 gauge x #50 ea 06/20/21 11/26/23 (Pen Needle) rosuvastatin 40 mg tablet (Crestor) 40 mg PO DAILY 11/03/21 11/26/23 flash glucose scanning reader 11/24/21 11/26/23 (FreeStyle Toshia [place]) flash glucose scanning reader 01/09/22 11/26/23 (FreeStyle Toshia [address] [place]) sennosides 8.6 mg capsule (senna) 8.6 mg PO DAILY 05/06/22 11/26/23 diaper,brief,adult,disposable #60 ea 06/03/22 11/26/23 (Depend Underwear For Women XL) incontinence pad, liner, disp #40 ea 06/03/22 11/26/23 trazodone 300 mg tablet 300 mg PO QHS 07/06/22 11/26/23 blood sugar diagnostic (OneTouch #400 ea 08/17/22 11/26/23 Verio test strips) doxepin 6 mg tablet 6 mg PO QHS PRN sleep #90 tabs 08/17/22 11/26/23 glucose 4 gram chewable tablet 4 g PO Q10MIN PRN hypoglycemia 08/17/22 11/26/23 (Dex4 Glucose) #100 tabs lancets (OneTouch UltraSoft #400 ea 08/17/22 11/26/23 Lancets) norethindrone acetate 5 mg tablet 10 mg PO TID 10/29/22 11/26/23 glucagon HCl 1 mg solution for 1 mg subcut Q20M PRN #1 ea 01/06/23 11/26/23 injection (Glucagon (HCl) Emergency Kit) methocarbamol 500 mg tablet 500 mg PO TID PRN muscle spasm of 01/14/23 11/26/23 lumbar spine #40 tabs chlorpromazine 50 mg tablet 50 mg PO .COMPLEX 05/03/23 11/26/23 cholecalciferol (vitamin D3) 50 See Rx Instructions .Route 05/12/23 11/26/23 mcg (2,000 unit) capsule .COMPLEX #28 caps ferrous gluconate 324 mg (38 mg See Rx Instructions .Route 05/12/23 11/26/23 iron) tablet .COMPLEX #56 tabs aripiprazole 5 mg tablet (Abilify) 25 mg PO QAM 05/13/23 11/26/23 furosemide 20 mg tablet 20 mg PO .every other day 05/13/23 11/26/23 hydroxyzine pamoate 25 mg capsule 25 mg PO BID PRN 05/13/23 11/26/23 acetaminophen 325 mg tablet 650 mg PO Q6H PRN pain 06/07/23 11/26/23 docusate sodium 100 mg capsule 100 mg PO BID PRN constipation 06/07/23 11/26/23 enoxaparin 40 mg/0.4 mL 40 mg subcut Q12H 06/07/23 11/26/23 subcutaneous syringe omeprazole 40 mg capsule,delayed 40 mg PO DAILY 06/07/23 11/26/23 release ondansetron 4 mg disintegrating 4 mg PO Q8H PRN nausea 06/07/23 11/26/23 tablet polyethylene glycol 3350 17 17 g PO DAILY 06/07/23 11/26/23 gram/dose oral powder ursodiol 300 mg capsule 300 mg PO BID 06/07/23 11/26/23 metformin 500 mg tablet,extended 1,000 mg PO BID 06/08/23 11/26/23 release 24 hr metoprolol succinate 100 mg See Rx Instructions .Route 07/05/23 11/26/23 tablet,extended release 24 hr .COMPLEX #28 tabs dapagliflozin propanediol 5 mg 5 mg PO DAILY 07/15/23 11/26/23 tablet (Farxiga) insulin lispro 100 unit/mL 1 sliding scale dose subcut 07/15/23 11/26/23 subcutaneous solution (Humalog USEASDIRECTD U-100 Insulin) losartan 100 mg tablet 100 mg PO DAILY 07/15/23 11/26/23 prazosin 5 mg capsule (Minipress) 10 mg PO DAILY 07/15/23 11/26/23 amoxicillin 875 mg-potassium 1 tab PO BID #14 tabs 11/26/23 clavulanate 125 mg tablet doxycycline hyclate 100 mg tablet 100 mg PO BID #14 tabs 11/26/23 ondansetron 4 mg disintegrating 4 mg PO Q8H PRN nausea and 11/26/23 tablet vomiting #30 tabs ondansetron 4 mg disintegrating 4 mg PO Q8H PRN nausea and 11/26/23 tablet vomiting #30 tabs prednisone 20 mg tablet 60 mg (3 x 20 mg) PO DAILY 4 days 11/26/23 #12 tabs Previous Rx's ?Medication ?Instructions ?Recorded diaper,brief,adult,disposable #60 ea 06/03/22 (Depend Underwear For Women XL) incontinence pad, liner, disp #40 ea 06/03/22 blood sugar diagnostic (OneTouch #400 ea 08/17/22 Verio test strips) doxepin 6 mg tablet 6 mg PO QHS PRN sleep #90 tabs 08/17/22 glucose 4 gram chewable tablet 4 g PO Q10MIN PRN hypoglycemia 08/17/22 (Dex4 Glucose) #100 tabs lancets (OneTouch UltraSoft #400 ea 08/17/22 Lancets) glucagon HCl 1 mg solution for 1 mg subcut Q20M PRN #1 ea 01/06/23 injection (Glucagon (HCl) Emergency Kit) methocarbamol 500 mg tablet 500 mg PO TID PRN muscle spasm of 01/14/23 lumbar spine #40 tabs cholecalciferol (vitamin D3) 50 See Rx Instructions .Route 05/12/23 mcg (2,000 unit) capsule .COMPLEX #28 caps ferrous gluconate 324 mg (38 mg See Rx Instructions .Route 05/12/23 iron) tablet .COMPLEX #56 tabs metoprolol succinate 100 mg See Rx Instructions .Route 07/05/23 tablet,extended release 24 hr .COMPLEX #28 tabs amoxicillin 875 mg-potassium 1 tab PO BID #14 tabs 11/26/23 clavulanate 125 mg tablet doxycycline hyclate 100 mg tablet 100 mg PO BID #14 tabs 11/26/23 ondansetron 4 mg disintegrating 4 mg PO Q8H PRN nausea and 11/26/23 tablet vomiting #30 tabs ondansetron 4 mg disintegrating 4 mg PO Q8H PRN nausea and 11/26/23 tablet vomiting #30 tabs prednisone 20 mg tablet 60 mg (3 x 20 mg) PO DAILY 4 days 11/26/23 #12 tabs Allergies Allergy/AdvReac Type Severity Reaction Status Date / Time mushrooms Allergy Unknown rash Uncoded 11/26/23 22:04 General Stated Complaint: Abd Prob ALEKSANDR: 3 Review of Systems All systems reviewed & are unremarkable except as noted in HPI and below Constitutional Constitutional: Denies chills, Denies fever(s) and Denies weakness Cardiovascular Cardiovascular: Denies chest pain and Denies dyspnea Respiratory Respiratory: Denies cough and Denies dyspnea Gastrointestinal Gastrointestinal: Reports abdominal pain, Reports nausea and Reports vomiting Musculoskeletal Musculoskeletal: Denies joint swelling Neurologic Neurologic: Denies weakness Exam Const General: no acute distress Orientation: alert HENMT Head: normal to inspection Ears: external ears normal General nose exam: external nose normal Mouth: moist mucous membranes Eyes General: appearance normal, both eyes and all related structures Neck Neck: normal visual inspection Resp Effort & Inspection: normal respiratory effort and able to speak in complete sentences Cardio Rate: regular rate GI Palpation: soft and tender Skin General skin exam: no rashes or lesions noted Neuro General: patient alert and patient oriented x3 Extrem General: normal to inspection Psych Mental Status: mental status grossly normal Course Vital Signs Vital signs: Vital Signs Temperature 36.7 C 11/26/23 18:56 Pulse 113 H 11/26/23 18:56 Respiratory Rate 15 11/26/23 18:56 Blood Pressure 107/62 11/26/23 18:56 Pulse Oximetry 98 11/26/23 18:56 Temperature 36.7 C 11/26/23 19:00 Temperature Source Oral 11/26/23 19:00 Pulse 113 H 11/26/23 19:00 Respiratory Rate 15 11/26/23 19:00 Respiratory Effort Normal 11/26/23 19:00 Blood Pressure 107/62 11/26/23 19:00 Blood Pressure Position Sitting 11/26/23 19:00 Pulse Oximetry 98 11/26/23 19:00 Oxygen Delivery Method Room Air 11/26/23 19:00 Oxygen Flow Rate 0 11/26/23 19:00 Medical Decision Making 33-year-old female who states she had an uncomplicated Lobo-en-Y procedure in May comes in after she started having nausea vomiting around 1:00 today. She says in the morning she was feeling well and had no recent fevers, no diarrhea. She says she also has some intermittent epigastric pain. She denies any severe pain, no bloody vomiting, no chest pain or difficulty breathing. She is alert and oriented on arrival speaking clearly in no distress. Her abdomen is soft but she does have some tenderness in the epigastric region. Suspect this could be food related illness but given her recent clinical I will obtain CBC, CMP, lipase and also obtain CT with IV and oral contrast to evaluate for entities such as internal hernias. Labs unremarkable other than a glucose of 50, patient was lethargic on r eassessment was given IV dextrose and improvement in her mental status, was given oral food as well given hypoglycemia. CT results pending. CT without evidence of obstruction or internal hernia. Noted chronic soft tissue mass measuring 6 x 5 cm in the right buttock and left buttock which has been present on prior CTs without abscess and has no overlying cellulitis in this area. States that she is aware of these and they are chronic and follows with her surgeons for these. She has no right upper quadrant tenderness now and LFTs unremarkable so doubt gallbladder pathology. She does have noted infiltrates in her lungs but denies any cough. Given the infiltrates will treat with prednisone and Augmentin as well as doxycycline. She is tolerating p.o., she is stable for discharge and advised to follow-up with her PCP as well as her surgeons, return precautions given Differential Diagnosis Differential Diagnosis: Internal hernia, marginal ulcer, food related illness Medical Records Medical records reviewed: Yes I reviewed the patient's medical records. Imaging Data Radiologic Study: Attestation: I personally reviewed and interpreted this imaging study as follows: Imaging: CT Scan Radiologist's impression: IMPRESSION: 1. There is heterogeneous attenuation of the pulmonary parenchyma, consistent with air trapping from underlying small airways disease. 2. There are diffuse interstitial infiltrates present. This may represent cardiogenic versus noncardiogenic edema. An acute inflammatory process and/or infectious process/pneumonia are not excluded. 3. Probable sludge within the gallbladder lumen. Tiny gallstones cannot be excluded. Consider ultrasound follow-up The gallbladder is otherwise normal. There is no cholelitiasis, wall thickening or pericholecystic fluid to suggest cholecystitis. 4. There are enlarged nonspecific lymph nodes in the mesenteric fat. This nonspecific mesenteric adenitis can be secondary to a variety of bacterial, viral, or other inflammatory processes. 5. Surgical changes consistent with Lobo-en-Y the epigastrium. Contrast present within nondilated loops of small bowel no evidence of gastric outlet obstruction. 6. Soft tissue mass measuring 6.4 x 5.4 cm with a fluid density present within the right buttock and left buttock, possibility abscess cannot be excluded. This was present previously on 07/10/2023 and is similar in size and appearance Lab Data Lab results reviewed: Yes I reviewed the patient's lab results. ECG Data Attestation: I personally reviewed and interpreted this ECG (s) as follows: Prior ECG tracings: available for review Interpretation: Sinus tachycardia, rate 102, [place] 165, no STEMI Quality:SDOH Health Related Social Needs: No Data to Display PFSH All Active Problems (Updated 11/26/23 @ 22:40 by Suresh Grimaldo MD) Hypoglycemia (Acute) Abdominal pain (Acute) Nausea & vomiting (Acute) Nightmare disorder (Acute) Sleep Note 05/26/22 likely related to her PTSD/Psych history-- Left chest pressure (Acute) COVID (Acute ~04/2023) Schizoaffective disorder, unspecified (Acute) Menorrhagia (Chronic ~2021) Managed with IUD & norethidrone Insomnia (Acute ~07/2022) Constipation by delayed colonic transit (Chronic) Senna Class 3 severe obesity without serious comorbidity with body mass index (BMI) of 60.0 to 69.9 in adult (Acute) Hypothyroid (Chronic) [facility] Schizoaffective disorder, bipolar type (Chronic) [facility] PTSD (post-traumatic stress disorder) (Chronic) [facility] Morbid obesity (Chronic) BMI >60, Class 3 severe obesity Obstructive sleep apnea (adult) (pediatric) (Chronic ~2007) C-PAP; [facility] T2DM (type 2 diabetes mellitus) (Chronic ~2010) [place]; [facility] Endo Goal: <7% Dependent for transportation (Chronic) RCT Heart failure with preserved ejection fraction (Acute) Severe nonproliferative diabetic retinopathy (Chronic ~10/2021) Major depressive disorder, single episode, mild (Acute 05/11/21) Onychauxis (Acute) [facility] Podiatry Vitamin D deficiency (Acute ~02/2022) Medical History (Updated 11/26/23 @ 22:40 by Suresh Grimaldo MD) Abnormal vaginal bleeding September 2022: [employer]; 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 Diabetic macular edema (~10/2021) Papilledema (~11/2021) Hypoglycemia associated with diabetes (~10/2021) Coagulopathy (~09/2021) ?VWD; [facility] Heme consult NEG Cardiomegaly Dissociative identity disorder (~2014) Plantar fasciitis Iron deficiency anemia due to chronic blood loss Menorrhagia with irregular cycle IUD placed at [facility] Feb 2022, normal endo bx. Bleeding improved. On Northindrone 5mg BID Abnormal CAT scan abscess at right gluteal area/coccyx, early osteomyelitis? Mixed hyperlipidemia Surgical History (Updated 06/28/23 @ 16:54 by Megan Antoine) H/O gastric bypass (~06/03/23) Laparoscopic Lobo en Y-[facility] History of hysteroscopy hysteroscopy D&C, Mirena IUD placement 03/07 @ [facility] History of Lobo-en-Y gastric bypass Done 06/03/2023 at [facility] Dr.Thadeus Contreras Status post embolization of uterine artery (~09/2022) [facility] 10/13/22; s/p vaginal/uterine hemorrhage Family History Father Diabetes Alcohol use disorder Mother Seizure disorder Other Factor VIII (functional) deficiency Fibroids Social History Smoking/Tobacco Use Status: Never Second Hand Exposure: No Smoking risk assessment performed?: Yes Alcohol Intake: former Drug use: Never Substance use type: does not use Adopted: Yes Caregiver/Support person: No Foster care: Yes Household members: none Housing: apartment Number of Children: 0 Communication Needs: None Education Level: college Details: associate's degree Do you need help understanding health information?: Never current occupation: [employer] Pets and animals: No Sexually active: No Do you think of yourself as: ??asexual Current gender identity: female What is your relationship status?: never How often do you talk on the phone with friends or family?: three or more times per week How often do you get together with friends or relatives?: never Do you belong to any clubs or organized social groups?: no Panel score (0-1 are the most socially isolated patients): 1 What type of physical activity do you participate in: walking Duration: < 15 minutes/day Frequency: 1-2 times per week Vane/Catholic: None Special vane needs: No Seatbelt use: sometimes Helmet use: No Drive intox or ride w/intox farm truck driver: No Do you feel safe at home: Yes Do you feel safe in your relationship?: Yes Female Reproductive History Menstrual Age of Menarche: 13 Duration of menses: >10 days control method: none History History 0 Para Hx # Term Pregnancies Multiple births Hx # Pregnancies Ectopic pregnancies AB induced Hx Number of Living Children AB spontaneous
[2023-11-26] MEDS: Droperidol 5 MG/2 ML VIAL 2.5 MG IVP (19:20)
[2023-11-26] MEDS: Normal Saline 1,000 ML 1000 ML IV (19:20)
--- OUTSIDE RECORDS SUMMARY | 2023-11-26 19:28 | XMS_ITS | Encounter Summary ---
[place] [address] Care Team Providers Care Life Skills Specialist Name Role Phone Lia Pearson APRN Primary Care Provider Encounter Details Date Type Department Care Team (Late st Contact Info) Description 07/09/2023 [place] [id number] Valentine Ramirez Social History Tobacco Use Types Packs/Day Years Used Date Smoking Tobacco: Former Smokeless Tobacco: Never Alcohol Use Standard Drinks/Week Comments Not Currently 0 (1 standard drink = 0.6 oz pur e alcohol) IPV Inpatient Questions Answer Date Recorded Prevent Contact with Others no 12/2023 Feels Threatened by Someone no 12/2023 Feels Unsafe at Home no 06/24/2023 Physical Signs of Abuse Present no 06/24/2023 Sex and Gender Information Value Date Recorded Sex Assigned at Not on file Gender Identity Not on file Sexual Orientation Not on file documented as of this encounter Miscellaneous Notes * Telephone Encounter - Valentine Ramirez - 07/09/2023 9:38 AM EST Tried reaching out to this patient to get her 2 month telephone office visit with Dr. Morgan rescheduled, I received the voicemail, left a message for her to call me back. documented in this encounter Plan of Treatment Upcoming Encounters Date Type Department Care Team (Late st Contact Info) Description 12/30/2023 2:45 PM EDT TH Visit (TeleHealth) [place] [id number] Michael Morgan, [facility] [place] [address] documented as of this encounter Goals Goal Patient Goal Type Associated Problems Recent Progress Patient-Stated? Author Other (Enter personal goal) Lifestyle On track( 023 1:14 PM EDT) Riddhi Buchanan RD Note: -Add peanut butter to oatmeal -Continue to add beans to meals as a source of protein and fiber -If can, buy fresh vegetables and fruit from [employer]-sent message with resources -Choose whole grain options if available -When having a snack, focus on protein Bariatric behaviors Lifestyle On track( 023 1:14 PM EDT) Riddhi Buchanan RD Note: Eating Slowly and taking 20-30 minutes to complete a meal Use Smaller utensils, e.g., children's utensils Take small bite and put utensils down between bites Set a time to time your meals Use your non-dominant hand Stop eating when you feel COMFORTABLE, not full Remember it takes 20 minutes for your brain to let your stomach know there is food in it! Meal planning and making healthy food choices Eat 3 meals per day. NO skipping meals. If you are HUNGRY, have 1-2 pre planned and portion controlled snacks per day Make healthy food choices Limit alcohol Reduce portion sizes Eat Protein first Separate eating and drinking by 30 minutes Don't bring a drink to the table Use sauces to moisten foods Set up schedule to cut back on water at each meal Stay hydrated! Aim for 48-64 oz each day SIP slowly-5 minutes per ounce of fluid Try freezing a bottle of water or using a child's sippie cup Self-awareness, body cues Lifestyle No Davidson Allen Note: Practice STOP and Urge Surfing. Health Drop Pit Worker will send hand-outs. Movement Lifestyle On track( 023 1:14 PM EDT) Riddhi Buchanan RD Note: Continue to walk stairs and walks when can. Will continue using stairs as it's colder. Look into finding weights free online or at [employer] stores. Could use water-filled milk jugs as weights-a full gallon jug would be 8 lbs. Will look into nearby rec center 04/16/22 NATHALIA documented as of this encounter Visit Diagnoses Not on filedocumented in this encounter Care Teams Life Skills Specialist Relationship Specialty Start Date End Date Lia Pearson APRN [id number] [place] [address] PCP - General Geriatric Medicine 02/09/22 documented as of this encounter
--- OUTSIDE RECORDS SUMMARY | 2023-11-26 19:28 | XMS_ITS | Encounter Summary ---
Author Organization [facility] [place] [address] Care Team Providers Care Peanut Butter Maker Name Role Phone Lia Pearson SCOWMAN Primary Care Provider [phone] Encounter Details Date Type Department Care Team (Late st Contact Info) Description 09/02/2023 3:30 PM EDT TH Visit (TeleHealth) [place] [address] Michael Morgan, [facility] [place] [address] Vaginal bleeding Social History Tobacco Use Types Packs/Day Years Used Date Smoking Tobacco: Former Smokeless Tobacco: Never Alcohol Use Standard Drinks/Week Comments Not Currently 0 (1 standard drink = 0.6 oz pur e alcohol) [place] Utilities Answer Date Recorded In the past 12 months has th e [employer], gas, oil, or water [employer] threatened to shut off services in your home? No 07/13/2023 Hunger Vital Sign Answer Date Recorded Within the past 12 months, y ou worried that your food would run out before you got the money to buy more. Never true 07/13/19 24 Within the past 12 months, t he food you bought just didn't last and you didn't have money to get more. Never true 07/13/2023 PRAPARE - Transportation Answer Date Re corded In the past 12 months, has l ack of transportation kept you from medical appointments or from getting medications? No 06/18 In the past 12 months, has l ack of transportation kept you from meetings, work, or from getting things needed for daily living? No 07/13/2023 Housing Stability Vital Sign Answer Bob e Recorded In the last 12 months, was t here a time when you were not able to pay the mortgage or rent on time? No 07/13/2023 [address] of Places Lived in the Last Year Not on f ile 07/13/2023 In the last 12 months, was t here a time when you did not have a steady place to sleep or slept in a long term (including now)? No 07/13/2023 DH IPV Inpatient Questions Answer Date Recorded Does Anyone Try to Keep You From Having Contact with Others or Doing Things Outside Your Home? no 07/12/2023 Feels Threatened by Someone no 06/18 Feels Unsafe at Home or Work/School no 07/12/2023 Physical Signs of Abuse Present no 07/12/2023 Sex and Gender Information Value Date Recorded Sex Assigned at Not on file Gender Identity Not on file Sexual Orientation Not on file documented as of this encounter Progress Notes * Michael Morgan, DO - 09/02/2023 3:30 PM EDT INTERVENTIONAL RADIOLOGY Follow Up Progress Note Procedure(s): Uterine Artery Embolization (Gelfoam Embolization) on 10/13/22 Interval Events: Please see my initial follow up note of 11/12/22 and subsequent follow up notes of 02/11/23, 03/08/23, and 05/13/23 for prior details. Since the prior follow up, the patient has no vaginal bleeding since May of this year. 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 She denies any new symptoms. No need for transfusions. Assessment: 32 y.o. female with history of significant vaginal and uterine hemorrhage which initially resolved following bilateral uterine artery embolization with gelfoam. Patient has had intermittent hemorrhage over the past year or so, but has not had any significant hemorrhage since May 2023. Plan: Patient will continue to monitor symptoms. If bleeding increases, she will reach back out. Will plan to discuss with patient ~3-6 months to see if her symptoms recur. Patient will reach out to me in the interim if she needs. Over 10 minutes of this 15 minute visit were spent in counseling and coordination of care. Michael Morgan DO, MPH Staff Physician - Interventional Radiology Pager [phone] documented in this encounter Plan of Treatment Upcoming Encounters Date Type Department Care Team (Late st Contact Info) Description 12/30/2023 2:45 PM EDT TH Visit (TeleHealth) [place] [address] Michael Morgan DO [facility] [place] [address] documented as of this encounter Goals Goal Patient Goal Type Associated Problems Recent Progress Patient-Stated? Author Other (Enter personal goal) Lifestyle On track( 023 1:14 PM EDT) Riddhi Buchanan RD Note: -Add peanut butter to oatmeal -Continue to add beans to meals as a source of protein and fiber -If can, buy fresh vegetables and fruit from [employer]-sent message with resources -Choose whole grain options [...] Note: Practice STOP and Urge Surfing. Health Assistant Production Manager will send hand-outs. Movement Lifestyle On track( 023 1:14 PM EDT) Riddhi Buchanan RD Note: Continue to walk stairs and walks when can. Will continue using stairs as it's colder. Look into finding weights free online or at [employer] stores. Could use water-filled milk jugs as weights-a full gallon jug would be 8 lbs. Will look into nearby rec center 04/16/22 NATHALIA documented as of this encounter Visit Diagnoses Diagnosis Vaginal bleeding Other specified noninflammatory disorder of vagina documented in this encounter Care Teams Peanut Butter Maker Relationship Specialty Start Date End Date Lia Pearson APRN [address] [place] [address] PCP - General Geriatric Medicine 02/09/22 documented as of this encounter
--- OUTSIDE RECORDS SUMMARY | 2023-11-26 19:28 | XMS_ITS | Encounter Summary ---
[place] [address] Care Team Providers Care Electrical Appliance Mechanic Name Role Phone GeorgesLia Toribio LOAN FUNDER Primary Care Provider [phone] Encounter Details Date Type Department Care Team (Late st Contact Info) Description 07/16/2023 [place] [id number] Valentine Ramirez Social History Tobacco Use Types Packs/Day Years Used Date Smoking Tobacco: Former Smokeless Tobacco: Never Alcohol Use Standard Drinks/Week Comments Not Currently 0 (1 standard drink = 0.6 oz pur e alcohol) [facility] Utilities Answer Date Recorded In the past 12 months has th e electric, gas, oil, or water [employer] threatened to shut off services in your [...] place to sleep or slept in a custodial (including now)? No 07/13/2023 IPV Inpatient Questions Answer Date Recorded Does [...] * Telephone Encounter - Valentine Ramirez - 07/16/2023 8:34 AM EST Tried reaching out to this patient to get her 2 month telephone office visit with Dr. Morgan rescheduled. She did answer the phone and indicated she would like to get it rescheduled but then the callwas disconnected. I tried calling her back but received the voicemail, left a message for her to call me back even if she was not interested in rescheduling. I will try again next week. documented in this encounter Plan of Treatment Upcoming Encounters Date Type Department Care Team (Late st Contact Info) Description 12/30/2023 2:45 PM EDT TH Visit (TeleHealth) [place] [address] Michael Morgan, [facility] [place] [address] documented as of this encounter Goals Goal Patient Goal Type Associated Problems Recent Progress Patient-Stated? Author Other (Enter personal goal) Lifestyle On track( 023 1:14 PM EDT) Riddhi Buchanan RD Note: -Add peanut butter to oatmeal -Continue to add beans to meals as a source of protein and fiber -If can, buy fresh vegetables and fruit from [employer]-sent message with resources -Choose whole grain options [...] Note: Practice STOP and Urge Surfing. Health Argon Tester will send hand-outs. Movement Lifestyle On track( 023 1:14 PM EDT) Riddhi Buchanan RD Note: Continue to walk stairs and walks when can. Will continue using stairs as it's colder. Look into finding weights free online or at [employer] stores. Could use water-filled milk jugs as weights-a full gallon jug would be 8 lbs. Will look into nearby rec center 04/16/22 NATHALIA documented as of this encounter Visit Diagnoses Not on filedocumented in this encounter Care Teams Electrical Appliance Mechanic Relationship Specialty Start Date End Date Lia Pearson APRN [address] [place] [address] PCP - General Geriatric Medicine 02/09/22 documented as of this encounter
--- OUTSIDE RECORDS SUMMARY | 2023-11-26 19:28 | XMS_ITS | Encounter Summary ---
Author Organization [facility] [place] [address] Care Team Providers Care Senior Data Analyst Name Role Phone Lia Pearson MANAGER [place] Primary Care Provider [phone] Reason for Visit * Auth/Cert (Routine) Specialty Diagnoses / Procedures Referred By Della kern Referred To Contact Diagnoses Gastric anastomotic stricture persistent nausea/ vomitting Gee Contreras MD [facility] [place] [address] [facility] Referral ID Status Reason Start Date Expiration Date Visits Re quested Visits Authorized [id number] 1 1 Encounter Details Date Type Department Care Team (Latest Contact Info) Description 07/12/2023 1:41 AM EST - 07/14/2023 3:20 PM EST Hospital Encounter Intermediate [place] [address] Gee Contreras MD [facility] [place] [address] Hypertensive crisis; Chronic back pain, unspecified back location, unspecified back pain laterality; Unstable gait Discharge Disposition: Home Social History Tobacco Use Types Packs/Day Years Used Date Smoking Tobacco: Former Smokeless Tobacco: Never Alcohol Use Standard Drinks/Week Comments Not Currently 0 (1 standard drink = 0.6 oz pur e alcohol) [facility] Utilities Answer Date Recorded In the past 12 months has th e electric, gas, oil, or water [place] [employer] threatened to shut off services in your [...] place to sleep or slept in a half-way (including now)? No 07/13/2023 DH IPV Inpatient [...] on file documented as of this encounter Last Filed Vital Signs Vital Sign Reading Time Taken Comments Blood Pressure 166/113 07/14/2023 11:36 AM EST Pulse 76 07/14/2023 11:36 AM EST Temperature 36.8 ??C (98.2 ??F) 07/14/2023 1 1:36 AM EST Simultaneous filing. User may not have seen previous data. Respiratory Rate 23 07/14/2023 11:3 6 AM EST Oxygen Saturation 99% 07/14/2023 11: 36 AM EST Inhaled Oxygen Concentration - - Weight 173.8 kg (383 lb 3.2 oz) 07/14/2023 6:00 AM EST Height 167 cm (5' 5.75) 07/12/2023 1:5 4 AM EST Body Mass Index 62.33 07/12/2023 1:54 AM EST documented in this encounter Discharge Summaries * Kati Shea PA - 07/14/2023 12:20 PM EST Images from the original note were not included. General Surgery Discharge Summary Patient Name: Zeina Worley Patient Age: 33 y.o. 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 Z79.84 Mixed hyperlipidemia E78.2 RICHMOND (obstructive sleep apnea) G47.33 Other specified hypothyroidism E03.8 PTSD (post-traumatic stress disorder) F43.10 Schizoaffective disorder F25.9 Type 2 diabetes mellitus with hyperglycemia, with long-term current use of insulin E11.65, Z79.4 Insomnia G47.00 Vitamin D deficiency E55.9 Class 3 severe obesity with body mass index (BMI) of 60.0 to 69.9 in adult E66.01, Z68.44 Vaginal bleeding N93.9 Cardiomegaly I51.7 Constipation K59.00 Diabetic macular edema E11.311 Dissociation 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 female with h/o IDDM2, morbid obesity s/p lap Vernell-en-Y gastric bypass 06/03/2023 ([facility]), hypertension, RICHMOND (on CPAP), hypothyroidism, metabolic syndrome, PTSD, schizoaffective disorder, DID, AUB (on norethindrone), HFpEF. She was transferred from [facility] 07/12/2023 for nausea and vomiting with imaging concerning for stenosis at the GJ and/or JJ anastomosis. Hospital Course: Zenia Worley is a 33 y.o. female who was admitted [place] on 07/12/2023 for the above condition. She was made NPO on admission in preparation for swallow study to be performed that day. However, there was retained PO contrast in her colon (from OSH CT) which would have obscured imaging. She was given a clear liquid diet with plan to start a bowel regimen and try to obtain aswallow study on HD#2 pending radiology scheduling availability. On HD#1 she was doing well with clear liquids and so her diet was advanced to a gastric bypass stage 2 diet which was well tolerated without nausea or vomiting. She was trialed on a stage 3 diet on HD#2 which also went well, at which time it was decided that the swallow study was no longer necessary. In the morning and afternoon of the day of admission she became steadily more hypertensive with little to no response to oral home medications and several doses of IV hydralazine and labetalol; max BP 222/115 and other than a mild headache she was asymptomatic (no blurred vision, AMS, chest pain, nausea). She was ultimately transferred to the stepdown unit for better management of hypertensive urgency with a nicardipine drop. Blood pressure dropped quite quickly after initiation of nicardipine gtt, and she had a nurse-witnessed hypotensive episode when ambulating to the bathroom with no LOC or fall, after which nicardipine was discontinued. Hospital medicine was consulted and recommended continuing home antihypertensive medication regimen with doubled dose of losartan, as well as close follow up with PCP. During her admission she had several 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 episodes requiring dextrose infusion. Her last dose of insulin prior to admission was the morning of 07/11. She required no insulin during her admission, and by HD#2 blood glucose was WNL without any intervention. The inpatient diabetes management team was consulted and gave recommendations for a new diabetes regimen at discharge which included stopping Lantus, continuing Farxiga and metformin XR, and a modified Humalog sliding scale, as well as close follow up with her outpatient endocrinology team. Prior to discharge on 07/14/23 or hospital day 2, vitals and glucose were WNL, she was she was tolerating a Gastric Bypass diet Stage III-Puree, she was voiding independently, and having bowel movements. At that time she was determined to be medically ready for discharge to home. Vital Signs Last value Range last 24hrs Temperature Temp: 36.8 ??C (98.2 ??F) (Simultaneous filing. User may not have seen previous data.) Temp: [36.5 ??C (97.7 ??F)-37.1 ??C (98.8 ??F)] Heart Rate Heart Rate: 76 Heart Rate: [65-87] Blood Pressure BP: (!) 166/113 BP: (134-169)/(69-113) Respiratory Rate Resp: 23 Resp: [13-23] SpO2 SpO2: 99 % SpO2: [97 %-99 %] Pertinent Lab Data: Recent Labs 07/14/23 0031 07/13/23 0228 07/12/23 0558 WBC 4.0 4.5 5.2 HGB 11.5* 11.7 12.1 HCT 34.8* 35.5* 38.2 PLATELET 217 228 231 Recent Labs 07/14/23 0031 07/13/238 07/12/23 0558 NA 139 138 144 K 3.7 3.6 3.3* CL 104 102 108* CO2 28 BUN 9 7* 9 CREATININE 0.73 0.71 0.70 GLUCOSE 100 95 77 CALCIUM 8.9 8.9 8.8 MAGNESIUM -- -- 0.75 PHOS -- -- 3.8 Imaging: SCAN DOC: TELEMETRY STRIPS Result Date: 07/13/2023 Ordered by an unspecified provider. SCAN DOC: TELEMETRY STRIPS Result Date: 07/13/2023 Ordered by an unspecified provider. XR Abdomen 1 view (Generic) Result Date: 07/12/2023 EXAMINATION: XR ABDOMEN 1 VIEW (GENERIC) CLINICAL HISTORY: ?GJ stenosis, s/p LRYGB 06/03/23 ?GJ stenosis, s/p LRYGB 06/03/23 TECHNIQUE: Healthcare Insurance Sales Agent AP supine radiographs of the abdomen for initially planned fluoroscopic GI series, total 5 images. COMPARISON: Portable AP supine radiographs of the abdomen from earlier same day, 07/12/2023 at [id number] hours 07/12/2023 CT chest, abdomen, and pelvis 07/10/2023 from [facility] FINDINGS: Surgical clips and anastomotic chain sutures again seen in the left midupper abdomen. Retained oral contrast is seen throughout in the colon from the ascending to the distal descending colon, no large bowel dilatation. No oral contrast is seen insmall bowel loops. Moderate amount of stool is seen within the ascending colon. Occasional nondilated gas-filled loops of small bowel are seen in the mid abdomen, overall paucity of small bowel gas. No abnormal intra-abdominal calcifications. Imaged lung bases appear clear. No interval osseous finding. 1. Oral contrast retained within the colon precludes proceeding with planned fluoroscopic upper GI exam. No evidence of high-grade small bowel obstruction. 2. Fluoroscopic upper GI series can be performed if so clinically desired following clearance of the residual oral contrast from the colon. 3. Rich Duque DO, discussed the results with Kati CONTRERAS on 07/12/2023 1:42 PM and verified that the results were understood. I have personally reviewed the image(s) and the resident's interpretation and agree with the findings, Josselin Ramirez MD at 07/12/2023 5:31 PM Thank you for letting us participate in the care of this patient. If you are a health care provider and have any questionsregarding this report, please contact the number below. For patients who have questions please contact the health career services manager that requested your imaging first. Electronically signed by: Josselin Ramirez MD, [facility] ([phone]), at 07/12/2023 5:31 PM XR Abdomen 1 view (Generic) Result Date: 07/12/2023 EXAMINATION: XR ABDOMEN 1 VIEW (GENERIC) CLINICAL HISTORY: Recent contrast from CT, would like to see how far it has gone TECHNIQUE: AP portable supine abdomen radiographs (4 images) COMPARISON: CT chest/abdomen/pelvis July 10, 2023 FINDINGS: Orally administered enteric contrast on June has progressed to the rectum. Normal caliber and distribution of bowel contents. Mild retainedfecal material within the ascending colon. No supine finding of intraperitoneal free air. No abnormal soft tissue contour or calcification. Lung bases are clear. No fracture. Preserved alignment at the spine and pelvis. Passage of orally administered enteric contrast to the rectum. Otherwise normal abdomen radiographs. Thank you for letting us participate in the care of this patient. If you are a health care provider and have any questions regarding this report, please contact the number below. For patients who have questions please contact the health career services manager that requested your imaging first. Electronically signed by: Jamila Ny MD, [facility] ([phone]), at 07/12/2023 7:30 AM Film Library- Storage Only CT Chest Abdomen Pelvis Result Date: 07/10/2023 This exam is auto-finalizing. It's purpose is for storage only. Physical Exam: General: AOx3, pleasant, conversant, no acute distress HEENT: normocephalic, atraumatic, PERRLA, anicteric sclerae CVS: RRR on monitor Pulm: breathing comfortably on room air Abd: soft, nontender, non-distended, incisions clean/dry/intact : no sierra Skin: warm, dry Ext: well perfused, no jaundice or cyanosis, no edema Neuro: CN 2-12 grossly intact, nonfocal, moving all four extremities spontaneously Condition at discharge: Stable Mental Status: awake and alert, oriented x 3 Medications: Your Medications New Medications Dose Details insulin lispro 100 unit/mL Solution Commonly known as: HumaLOG Inject SQ 3 times daily before meals as needed for BG over 200 (BG 200-240 2 units, 241-270 3 units, 271-310 4 units) Quantity: 15 mL Refills: 0 Continued medications with new dosing Dose Details losartan 100 mg tablet Commonly known as: Cozaar Take 1 tablet by mouth daily. What changed: medication strength See the new instructions. 100 mg Quantity: 90 tablet Refills: 3 Continued medications, unchanged Dose Details acetaminophen 325 mg tablet Commonly known as: Tylenol Take 2 tablets by mouth every 6 hours as needed for Pain. 650 mg Refills: 0 ARIPiprazole 20 mg tablet Commonly known as: Abilify TAKE ONE TABLET BY MOUTH EVERY DAY FOR SCHIZOAFFECTIVE DISORDER, BIPOLAR TYPE Refills: 0 BD AutoShield Duo Pen Needle 30 gauge x 3/16 Needle USE UP TO 5 PEN NEEDLES DAILY Generic drug: pen needle,diabetic dual safty Refills: 0 * chlorproMAZINE 200 mg tablet Commonly known as: Thorazine 300 mg. 300 mg Refills: 0 * chlorproMAZINE 100 mg tablet Commonly known as: Thorazine Refills: 0 cholecalciferol (Vitamin D3) 1,250 mcg (50,000 unit) Capsule every week Refills: 0 doxepin 3 mg tablet Commonly known as: Silenor Take 6 mg by mouth nightly. 6 mg Refills: 0 Farxiga 5 mg tablet Take 5 mg by mouth Daily. Generic drug: dapagliflozin propanediol 5 mg Refills: 0 ferrous gluconate 324 mg (38 mg iron) tablet Commonly known as: Ferate Take 324 mg by mouth 2 times daily. 324 mg Refills: 0 furosemide 20 mg tablet Commonly known as: Lasix TAKE 1 TO 2 TABLETS BY MOUTH EVERY MORNING Refills: 0 * gabapentin 300 mg capsule Commonly known as: Neurontin Take 1 capsule by mouth 2 times daily. 300 mg Quantity: 90 capsule Refills: 0 * gabapentin 300 mg capsule Commonly known as: Neurontin Take 1 capsule by mouth nightly. Takes gabapentin 300 mg in AM and 600 mg in PM 1 capsule Refills: 0 glucose 4 gram chewable tablet Commonly known as: Glutose CHEW ONE TABLET BY MOUTH EVERY 10 MIN. NEEDED FOR HYPOGLYCEMIA UNTIL SYMPTOMS OF LOW BLOOD SUGARARE CONTROLLED Refills: 0 hydrOXYzine 25 mg capsule Commonly known as: Vistaril Take 25 mg by mouth 3 times daily as needed. 25 mg Refills: 0 levothyroxine 200 mcg tablet Commonly known as: Synthroid Take 200 mcg by mouth Daily. 200 mcg Refills: 0 metFORMIN XR 500 mg ER 24 hr tablet Commonly known as: Glucophage XR Take 1,000 mg by mouth 2 times daily. 1,000 mg Refills: 0 methocarbamoL 500 mg tablet Commonly known as: Robaxin Refills: 0 metoprolol succinate XL 100 mg ER 24 hr tablet Commonly known as: Toprol-XL Refills: 0 norethindrone 5 mg tablet Commonly known as: Aygestin Take 2 tablets by mouth 3 times daily. 10 mg Quantity: 180 tablet Refills: 6 prazosin 5 mg capsule Commonly known as: Minipress Take 10 mg by mouth nightly. Indications: posttraumatic stress syndrome 10 mg Refills: 0 rosuvastatin 40 mg tablet Commonly known as: Crestor Take 1 tablet by mouth nightly. 1 tablet Refills: 0 senna 8.6 mg tablet Commonly known as: Senokot Take by mouth daily. Refills: 0 traZODone 150 mg tablet Commonly known as: Desyrel Take 2 tablets by mouth nightly. 2 tablet Refills: 0 ursodioL 300 mg capsule Commonly known as: Actigall Take 1 capsule by mouth 2 times daily for 180 days. 300 mg Quantity: 180 capsule Refills: 1 * This list has 4 medication(s) that are the same as other medications prescribed for you. Read thedirections carefully, and ask your doctor or other care provider to review them with you. STOPPED Medications insulin glargine 100 unit/mL (3 mL) pen Commonly known as: Lantus NovoLOG Flexpen U-100 Insulin 100 unit/mL (3 mL) Insulin Pen Generic drug: insulin aspart U-100 Trulicity 0.75 mg/0.5 mL Pen Injector Generic drug: dulaglutide UNREVIEWED medications - Discuss With Your Provider Dose Details polyethylene glycoL 17 gram/dose Powder Commonly known as: Miralax Take 17 g by mouth daily. 17 g Quantity: 255 g Refills: 0 Disposition: Home Allergies: Allergies Allergen Reactions Fluoxetine Affected glucose level Mushroom Rash Outpatient Services/Studies: No discharge procedures on file. Scheduled Appointments: Future Appointments and Orders Future Appointments and Orders Future Appointments Provider Department Dept Phone 09/24/2023 1:[address]; Asiya Giraldo APRN General Surgery at [facility] Arrive at: Elementary Reading Tutor Area [phone] Instructions Given to Patient at Discharge: Patient Instructions Discharge Instructions New Medications to Sewing Department Supervisor at [facility] in [facility]: Insulin lispro (HumaLOG) 100 units/mL Losartan (Cozaar) 100 mg tablets Home Blood Pressure Regimen: Losartan (Cozaar) 100 mg daily Metoprolol succinate XL (Toprol XL) 100 mg daily Furosemide (Lasix) 20 mg daily Home Blood Sugar Regimen: See diabetes instructions below Call Doctor for: Abdominal pain, persistent nausea or vomiting Inability to meet daily fluid goals (48-64 fl oz daily) Any fevers greater than 101.3 F BARIATRIC SUPPORT TEAM CONTACT NUMBERS (Mon-Fri 8am - 5pm): General Surgery and Bariatric Surgery [phone] Bariatric Surgeons: Everton Arredondo, [place] [phone] Painting Instructor: [phone] Dietitians: [phone] Outside of regular business hours, including weekends and holidays: Ask for General Surgery resident bus transportation manager [phone] Please note, this call will be answered by a resident, and they may not be able to return your call for several hours Activity Level: There are no activity restrictions. Lift when you feel comfortable to do so. Avoiding Constipation Miralax 17g (or generic version: polyethylene glycol) mixed with a cup of water taken daily will help prevent constipation. You should start taking this even if you are not taking narcotic pain medications. Stool softeners such as Colace (docusate sodium) 100mg taken twice a day or Dulcolax (bisacodyl) 25mg daily can be used. Incorporate fiber to a goal of 25 grams daily with fruits, vegetables, or fiber supplements like Benefiber (wheat dextrin) or Metamucil. If you haven't had a bowel movement in 1-2 days, you can get over the counter Dulcolax suppositories, insert one per rectum, and it will help you have a BM. Follow-up: Please call [phone] (clinic number for appointments) to confirm or change the date and time of your appointment. Future Appointments Date Time Provider Department Center 09/24/2023 1:00 PM Asiya Giraldo APRN [facility] SURG [facility] General Instructions Diabetes Discharge Instructions & Recommendations Check blood sugars when you wake up, before meals, bedtime, anytime you don't feel well using your Freestyle Toshia. Keep track of trends for the next week or two, and connect with Endocrinology in the next 2 weeks. Restart Metformin XL 500mg - 2 tablets twice daily with meals. Restart Farxiga 5mg daily - don't take this medication if you are sick, dehydrated, or not eating. STOP Lantus - Watch blood sugars for the next week, and if you are waking up most of the time over 180, ok to restart 5 units of Lantus in the morning until you talk to Endocrinology Humalog: Ok to use as needed before meals only if BG are over 200. If you are needing this frequently, talk to your Partition Assembly Machine Operator about next steps. BG 200 - 240 Give 2 units BG 241 - 280 Give 3 units BG 281 - 310 Give 4 units DO NOT START Trulicity or Mounjaro until your surgery team has cleared you for this medication. It is best to avoid it as long as possible and use other medications if possible duet to possible side effects that can be a problem after bariatric surgery (slow digestion, nausea, vomiting). A once daily version Victoza may be a safer option should you need more support for blood sugars beyond Metformin and Farxiga. Treatment of Low Blood Sugar (Hypoglycemia) 15:15 rule - if your blood sugars is under 80, eat 15g of sugar, and recheck your blood sugar in 15minutes. If you continue to be under 80 after 15 minutes, eat 15g of sugar more, and repeat. If BG is over 100 on recheck, no need to consume more sugar, and recheck BG in another 15 minutes. If your BG is lower than 80, you are likely to feel shaky, sweaty and lightheaded. This is a signalthat your body needs more sugar. Quickly eat or drink a 15g of something sweet, such as: 4 ounces fruit juice or regular (not diet) soda 6 Boonds small box of raisins 4 glucose tablets (~15 gm of glucose) If your BG is very low <50, you can double the amount above or take 30 gm of glucose gel/tablets. Once you are feeling better, try to determine why your BG was so low. Common causes of hypoglycemiainclude skipping a meal, lots of exercise, too much insulin or any combination of these things. Understanding the cause my help you to avoid another low BG in the future. Test blood sugars prior to driving, make sure glucose levels are greater than 100mg/dl. If not havea snack and retest blood sugars in 15 minutes. Carry a glucose source on you at all times. Call your diabetes provider for blood sugars less than 80 or greater than 300 twice in one day to have your insulin doses adjusted. Future Appointments and Orders Future Appointments and Orders Future Appointments Provider Department Dept Phone 09/24/2023 1:[address]; Asiya Giraldo APRN General Surgery at [facility] Arrive at: [employer] Tutor Area [phone] Signed: DIANE Brown Bariatric Surgery 12:51 PM 07/14/23 Service pager: [phone] Primary [place] Physician: Lia Pearson, MANAGER [place] [address] [facility] [id number] documented in this encounter Discharge Instructions * Discharge Instructions* Beba Lin, MANAGER [place] - 07/14/2023 9:19 AM EST Diabetes Discharge Instructions & Recommendations Check blood sugars when you wake up, before meals, bedtime, anytime you don't feel well using your Freestyle Toshia. Keep track of trends for the next week or two, and connect with Endocrinology in the next 2 weeks. Restart Metformin XL 500mg - 2 tablets twice daily with meals. Restart Farxiga 5mg daily - don't take this medication if you are sick, dehydrated, or not eating. STOP Lantus - Watch blood sugars for the next week, and if you are waking up most of the time over 180, ok to restart 5 units of Lantus in the morning until you talk to Endocrinology Humalog: Ok to use as needed before meals only if BG are over 200. If you are needing this frequently, talk to your Partition Assembly Machine Operator about next steps. BG 200 - 240 Give 2 units BG 241 - 280 Give 3 units BG 281 - 310 Give 4 units DO NOT START Trulicity or Mounjaro until your surgery team has cleared you for this medication. It is best to avoid it as long as possible and use other medications if possible duet to possible side effects that can be a problem after bariatric surgery (slow digestion, nausea, vomiting). A once daily version Victoza may be a safer option should you need more support for blood sugars beyond Metformin and Farxiga. Treatment of Low Blood Sugar (Hypoglycemia) 15:15 rule - if your blood sugars is under 80, eat 15g of sugar, and recheck your blood sugar in 15minutes. If you continue to be under 80 after 15 minutes, eat 15g of sugar more, and repeat. If BG is over 100 on recheck, no need to consume more sugar, and recheck BG in another 15 minutes. If your BG is lower than 80, you are likely to feel shaky, sweaty and lightheaded. This is a signalthat your body needs more sugar. Quickly eat or drink a 15g of something sweet, such as: 4 ounces fruit juice or regular (not diet) soda 6 lifesavers small box of raisins 4 glucose tablets (~15 gm of glucose) If your BG is very low <50, you can double the amount above or take 30 gm of glucose gel/tablets. Once you are feeling better, try to determine why your BG was so low. Common causes of hypoglycemiainclude skipping a meal, lots of exercise, too much insulin or any combination of these things. Understanding the cause my help you to avoid another low BG in the future. Test blood sugars prior to driving, make sure glucose levels are greater than 100mg/dl. If not havea snack and retest blood sugars in 15 minutes. Carry a glucose source on you at all times. Call your diabetes provider for blood sugars less than 80 or greater than 300 twice in one day to have your insulin doses adjusted. * Patient Instructions* Kati Shea PA - 07/14/2023 9:31 AM EST Discharge Instructions New Medications to Sewing Department Supervisor at [facility] in [facility]: Insulin lispro (HumaLOG) 100 units/mL Losartan (Cozaar) 100 mg tablets Home Blood Pressure Regimen: Losartan (Cozaar) 100 mg daily Metoprolol succinate XL (Toprol XL) 100 mg daily Furosemide (Lasix) 20 mg daily Home Blood Sugar Regimen: See diabetes instructions below Call Doctor for: Abdominal pain, persistent nausea or vomiting Inability to meet daily fluid goals (48-64 fl oz daily) Any fevers greater than 101.3 F BARIATRIC SUPPORT TEAM CONTACT NUMBERS (Mon-Fri 8am - 5pm): General Surgery and Bariatric Surgery [phone] Bariatric Surgeons: Everton Arredondo Trus [phone] Painting Instructor: [phone] Dietitians: [phone] Outside of regular business hours, including weekends and holidays: Ask for General Surgery resident bus transportation manager [phone] Please note, this call will be answered by a resident, and they may not be able to return your call for several hours Activity Level: There are no activity restrictions. Lift when you feel comfortable to do so. Avoiding Constipation Miralax 17g (or generic version: polyethylene glycol) mixed with a cup of water taken daily will help prevent constipation. You should start taking this even if you are not taking narcotic pain medications. Stool softeners such as Colace (docusate sodium) 100mg taken twice a day or Dulcolax (bisacodyl) 25mg daily can be used. Incorporate fiber to a goal of 25 grams daily with fruits, vegetables, or fiber supplements like Benefiber (wheat dextrin) or Metamucil. If you haven't had a bowel movement in 1-2 days, you can get over the counter Dulcolax suppositories, insert one per rectum, and it will help you have a BM. Follow-up: Please call [phone] (clinic number for appointments) to confirm or change the date and time of your appointment. Future Appointments Date Time Provider Department Center 09/24/2023 1:00 PM Asiya Giraldo APRN [facility] SUR[facility] documented in this encounter Medications at Time of Discharge Medication Sig Dispensed Refills Start Date End Date insulin lispro (HumaLOG) 100 unit/mL Solution Inject SQ 3 times daily before meals as needed for BG over 200 (BG 200-240 2 units, 241-270 3 units, 271-310 4 units) 15 mL 07/14/2023 losartan (Cozaar) 100 mg tablet Take 1 tablet by mouth daily. 90 tablet 3 07/14/2023 cholecalciferol, Vitamin D3, 50 mcg (2,000 unit) Capsule Take 1 capsule by mouth daily. 60 capsule 2 07/14/2023 Farxiga 5 mg tablet Take 5 mg by mouth Daily. 06/01/2023 polyethylene glycoL (Miralax) 17 gram/dose Powder Take 17 g by mouth daily. 255 g 06/25/2023 acetaminophen (Tylenol) 325 mg tablet Take 2 tablets by mouth every 6 hours as needed for Pain. 06/05/2023 ursodioL (Actigall) 300 mg capsule Take 1 capsule by mouth 2 times daily for 180 days. 180 capsule 1 06/17/2023 12/14/2023 hydrOXYzine (Vistaril) 25 mg capsule Take 25 mg by mouth 3 times daily as needed. 05/18/2023 methocarbamoL (Robaxin) 500 mg tablet 01/14/2023 rosuvastatin (Crestor) 40 mg tablet Take 1 tablet by mouth nightly. 02/26/2023 ARIPiprazole (Abilify) 20 mg tablet TAKE ONE TABLET BY MOUTH EVERY DAY FOR SCHIZOAFFECTIVE DISORDER, BIPOLAR TYPE 02/15/2023 chlorproMAZINE (Thorazine) 100 mg tablet 02/18/2023 furosemide (Lasix) 20 mg tablet TAKE 1 TO 2 TABLETS BY MOUTH EVERY MORNING 02/09/2023 metoprolol succinate XL (Toprol-XL) 100 mg ER 24 hr tablet 03/05/2023 traZODone (Desyrel) 150 mg tablet Take 2 tablets by mouth nightly. 06/16/2022 senna (Senokot) 8.6 mg tablet Take by mouth daily. doxepin (Silenor) 3 mg tablet Take 6 mg by mouth nightly. 08/12/2022 chlorproMAZINE (Thorazine) 200 mg tablet 300 mg. 10/13/2022 gabapentin (Neurontin) 300 mg capsule Take 1 capsule by mouth nightly. Takes gabapentin 300 mg in AM and 600 mg in PM 04/14/2022 gabapentin (Neurontin) 300 mg CapsuleIndications :Type 2 diabetes mellitus with diabetic neuropathy, with long-term current use of insulin Take 1 capsule by mouth 2 times daily. 90 capsule 12/19/2021 glucose 4 gram Tablet, Chewable CHEW ONE TABLET BY MOUTH EVERY 10 MIN. NEEDED FOR HYPOGLYCEMIA UNTIL SYMPTOMS OF LOW BLOOD SUGAR ARE CONTROLLED 11/21/2021 ferrous gluconate 324 mg (38 mg iron) Tablet Take 324 mg by mouth 2 times daily. 11/22/2021 levothyroxine (Synthroid) 200 mcg Tablet Take 200 mcg by mouth Daily. 06/09/2021 metFORMIN XR (Glucophage XR) 500 mg Tablet Sustained Release 24 hr Take 1,000 mg by mouth 2 times daily. 10/15/2021 BD AutoShield Duo Pen Needle 30 gauge x /16 Needle USE UP TO 5 PEN NEEDLES DAILY 10/31/2021 prazosin (Minipress) 5 mg CapsuleIndications :post traumatic stress disorder Take 10 mg by mouth nightly. Indications: posttraumatic stress syndrome 11/07/2021 norethindrone (Aygestin) 5 mg tabletIndications: Abnormal uterine bleeding (AUB) Take 2 tablets by mouth 3 times daily. 180 tablet 6 10/15/2022 07/16/2023 documented as of this encounter Progress Notes * Beba Lin, MANAGER [place] - 07/14/2023 10:00 AM EST Images from the original note were not included. Glucose Management Team Inpatient Progress Note HPI Zenia Worley is a 33 y.o. 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 Original consult completed: 07/13/2023 Patient Interview & Updates Zenia hasn't required any insulin since admission, and BG have been stable in target last 24+ hours, even with meals. Going home today. Objective Temp: [36.5 ??C (97.7 ??F)-37.1 ??C (98.8 ??F)] Heart Rate: [65-87] Resp: [13-20] BP: (134-160)/(69-95) SpO2: [97 %-99 %] Heart Rate from SpO2: [66 bpm-88 bpm] Wt Readings from Last 3 Encounters: 07/14/23 (!) 173.8 kg (383 lb 3.2 oz) 06/25/23 (!) 176.2 kg (388 lb 6.4 oz) 06/03/23 (!) 187.4 kg (413 lb 3.2 oz) Current Regimen from Previous Note Lispro Correction: Custom Moderate 1:20 correction for BG >160 Q4 Diet: gastric bypass diet Monitoring: BG Q4 Relevant meds: none TDD: none Recent Glucose Levels Recent Labs 07/14/23 0748 07/14/23 0354 07/14/23 0025 07/13/23 1919 07/13/23 1517 07/13/23 1124 07/13/23 0738 07/13/23 0419 07/12/23 2315 07/12/23203007/12/23195307/12/23 1645 POCGLU 86 87 92 98 95 104 91 98 88 137 63* 80 ASSESSMENT Zenia Worley is a 33 y.o. years old female with PMH significant for DM2 (Last A1C of 7.5% 07/12/2023) who was admitted on 07/12/2023 for N/V w/concern for gastric fistula, HTN, and hypoglycemia. Diabetes moderately controlled and complicated by post-bariatric surgery and N/V. Currently variable blood glucose levels while hospitalized requiring adjustment of insulin regimen and DM medications. Zenia had bariatric surgery ~6 weeks ago, and weight has decreased by ~24lbs. Prior to admission, she had issues with N/V and hypoglycemia, which resolved 48hrs after last dose of Lantus. She is noweating and drinking, and BG have stabilized without any medications. She has a normal C-peptide andlikely can produce enough insulin, especially with weight loss. She is going home today and can restart Farxiga and Metformin, however GLP-1 typically are contraindicated after bariatric surgery due to risk for gastroparesis and dehydration/N/V. Plan to not start Trulicity until cleared by surgery team, and may consider daily Victoza with much shorter half life 1st vs Trulicity weekly to allow for discontinuation should side effects result. Instructions discussed with Zenia. Patient instructions as below, medications for DM pended for DC. Team updated. Not forwarded to outpatient Endocrinology team. PLAN: Insulin glargine: None for now - consider restarting 5 units if fasting over 180 X2 days. Lispro Correction: Custom Moderate 1:20 correction for BG >160 Q4 Lispro Meal associated: none currently - may consider if BG over 180 after meals. 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 Home: Metformin XR 500 - 2 tablets BID with meals. Farxiga 5mg QD Lantus - likely NOT continue at discharge Humalog correction only - likely continue at less aggressive correction Recommend against GLP-1 restart until cleared by surgery. Monitoring - continue BG tid ac & hs - restart Freestyle Toshia 50 minutes were spent over the course of the day with this patient encounter including time spent in chart review and relevant lab result review, assessment of and counseling with the patient on diabetes and treatment plan, reviewing all glucose and insulin data, and coordination with the consulting service. Beba Lin APRN, DNP, [facility] Inpatient Diabetes Management Team Team pager #[phone] Diabetes Discharge Instructions & Recommendations Check blood sugars when you wake up, before meals, bedtime, anytime you don't feel well using your Freestyle Toshia. Keep track of trends for the next week or two, and connect with Endocrinology in the next 2 weeks. Restart Metformin XL 500mg - 2 tablets twice daily with meals. Restart Farxiga 5mg daily - don't take this medication if you are sick, dehydrated, or not eating. STOP Lantus - Watch blood sugars for the next week, and if you are waking up most of the time over 180, ok to restart 5 units of Lantus in the morning until you talk to Endocrinology Humalog: Ok to use as needed before meals only if BG are over 200. If you are needing this frequently, talk to your Partition Assembly Machine Operator about next steps. BG 200 - 240 Give 2 units BG 241 - 280 Give 3 units BG 281 - 310 Give 4 units DO NOT START Trulicity or Mounjaro until your surgery team has cleared you for this medication. It is best to avoid it as long as possible and use other medications if possible duet to possible side effects that can be a problem after bariatric surgery (slow digestion, nausea, vomiting). A once daily version Victoza may be a safer option should you need more support for blood sugars beyond Metformin and Farxiga. Treatment of Low Blood Sugar (Hypoglycemia) 15:15 rule - if your blood sugars is under 80, eat 15g of sugar, and recheck your blood sugar in 15minutes. If you continue to be under 80 after 15 minutes, eat 15g of sugar more, and repeat. If BG is over 100 on recheck, no need to consume more sugar, and recheck BG in another 15 minutes. If your BG is lower than 80, you are likely to feel shaky, sweaty and lightheaded. This is a signalthat your body needs more sugar. Quickly eat or drink a 15g of something sweet, such as: 4 ounces fruit juice or regular (not diet) soda 6 lifesavers small box of raisins 4 glucose tablets (~15 gm of glucose) If your BG is very low <50, you can double the amount above or take 30 gm of glucose gel/tablets. Once you are feeling better, try to determine why your BG was so low. Common causes of hypoglycemiainclude skipping a meal, lots of exercise, too much insulin or any combination of these things. Understanding the cause my help you to avoid another low BG in the future. Test blood sugars prior to driving, make sure glucose levels are greater than 100mg/dl. If not havea snack and retest blood sugars in 15 minutes. Carry a glucose source on you at all times. Call your diabetes provider for blood sugars less than 80 or greater than 300 twice in one day to have your insulin doses adjusted. * Kati Shea PA - 07/14/2023 9:15 AM EST Minimally Invasive Surgery Inpatient Progress Note ID: Zenia Worley is a 33 y.o. female with h/o IDDM2, morbid obesity s/p lap Vernell-en-Y gastric bypass 06/03/2023 (Trus), hypertension, RICHMOND (on CPAP), hypothyroidism, metabolic syndrome, PTSD, schizoaffective disorder, DID, AUB (on norethindrone), HFpEF. She was transferred from [facility] 07/12/2023 for nausea and vomiting with imaging c/f stenosis GJ and/or JJ anastomosis. Hospital Day: 2 Subjective & 24hr events: Tolerating gastric bypass stage 2 diet yesterday with no nausea, vomiting, abdominal pain SBP 130-160s past 24 hr, remainder of vitals stable on room air or CPAP Glucose WNL past 24 hr without insulin or any other anti-hyperglycemic medications UOP adequate +BM, +flatus O: Last value Range last 24hrs Temperature Temp: 37.1 ??C (98.8 ??F) Temp: [36.5 ??C (97.7 ??F)-37.1 ??C (98.8 ??F)] Heart Rate Heart Rate: 86 Heart Rate: [65-87] Blood Pressure BP: 158/75 BP: (134-160)/(69-95) Respiratory Rate Resp: 20 Resp: [13-20] SpO2 SpO2: 98 % SpO2: [97 %-99 %] 07/13 0701 - 07/14 0700 In: 130 [P.O.:130] Out: 1875 [Urine:1875] Intake and Output: I/O last 3 completed shifts: In: 320 [P.O.:130; I.V.:190] Out: 2375 [Urine:2375] I/O this shift: In: 540 [P.O.:540] Out: - Current Medications: Current Facility-Administered Medications Medication Dose Route Frequency Provider Last Rate Last Admin losartan (Cozaar) tablet 50 mg 50 mg Oral Daily Suresh Terrell MD 50 mg at 07/14/23 0916 metoproloL tartrate (Lopressor) tablet 25 mg 25 mg Oral Q6H NICOLÁS Suresh Terrell MD 25 mg at 07/14/23 0501 labetaloL (Normodyne) (5 mg/mL) injection solution 20 mg 20 mg Intravenous Q2H PRN Noe Thomas MD hydrALAZINE (Apresoline) (20 mg/mL) injection 15 mg 15 mg Intravenous Q3H PRN Noe Thomas MD polyethylene glycoL (Miralax) packet 17 g 17 g Oral Daily Kati Shea PA 17 g at 07/13/23 1144 ARIPiprazole (Abilify) tablet 20 mg 20 mg Oral Daily Suresh Terrell MD 20 mg at 07/14/23 0917 furosemide (Lasix) tablet 20 mg 20 mg Oral Daily Suresh Terrell MD 20 mg at 07/14/23 0916 levothyroxine (Synthroid) tablet 200 mcg 200 mcg Oral QAM Suresh Terrell MD 200 mcg at 07/14/23 050 prazosin (Minipress) capsule 10 mg 10 mg Oral Nightly Suresh Terrell MD 10 mg at 07/13/232026 traZODone (Desyrel) tablet 300 mg 300 mg Oral Nightly Suresh Terrell MD 300 mg at 07/13/232026 sodium chloride 0.9 % (flush) (BD PosiFlush Normal Saline 0.9) flush 5 mL 5 mL Intravenous BID Suresh Terrell MD 5 mL at 07/14/23 0916 sodium chloride 0.9 % (flush) (BD PosiFlush Normal Saline 0.9) flush 5-20 mL 5- 20 mL Intravenous Q1Min PRN Suresh Terrell MD lidocaine (Xylocaine) 1% (10 mg/mL) injection 3 mg 0.3 mL Subcutaneous Once PRN Suresh Terrell MD ondansetron (Zofran) tablet 4 mg 4 mg Oral Q8H PRN Suresh Terrell MD Or ondansetron (pf) (Zofran) (2 mg/mL) injection 4 mg 4 mg Intravenous Q8H PRN Suresh Terrell MD acetaminophen (Tylenol) tablet 650 mg 650 mg Oral Q6H PRN Suresh Terrell MD melatonin tablet 3 mg 3 mg Oral Nightly PRN Suresh Terrell MD glucose (Glutose) 40% oral geL 15-30 g of glucose Buccal Q15 Min PRN Suresh Terrell MD Or dextrose 10% infusion 250 mL Intravenous Q15 Min PRN Suresh Terrell MD Stopped at 07/12/23 1216 Or glucagon (Glucagen) (1 mg/mL) injection solution 1 mg 1 mg Intramuscular Q15 Min PRN Suresh Terrell MD enoxaparin (Lovenox) (40 mg/0.4 mL) subcutaneous injection 40 mg 40 mg Subcutaneous 2 times per daySuresh Terrell MD 40 mg at 07/14/23 0915 norethindrone (Aygestin) tablet 10 mg 10 mg Oral TID Suresh Terrell MD 10 mg at 07/14/23 0917 gabapentin (Neurontin) capsule 300 mg 300 mg Oral Daily Suresh Terrell MD 300 mg at 07/14/23 0915 And gabapentin (Neurontin) capsule 600 mg 600 mg Oral Nightly Suresh Terrell MD 600 mg at 07/13/232026 iohexoL (Omnipaque) (300 mg/mL) solution 0-50 mL 0-50 mL Oral Once PRN Suresh Terrell MD insulin lispro (HumaLOG;Admelog) (100 unit/mL) subcutaneous injection vial 1-6 Units 1-6 Units Subcutaneous Q4H [facility] Suresh Terrell MD Physical Exam: General: awake, alert, no acute distress, flat affect HEENT: atraumatic, normocephalic, PERRLA, anicteric sclera CVS: RRR on monitor Pulm: unlabored breathing on CPAP Abd: soft, nontender, non-distended : no sierra Skin: warm, dry Ext: warm, well perfused, no jaundice, no cyanosis Recent Labs 07/14/23 0031 07/13/23 0228 07/12/23 0558 WBC 4.0 4.5 5.2 HGB 11.5* 11.7 12.1 HCT 34.8* 35.5* 38.2 PLATELET 217 228 231 Recent Labs 07/14/233007/13/2322707/12/23 0558 NA 139 138 144 K 3.7 3.6 3.3* CL 104 102 108* CO2 BUN 9 7* 9 CREATININE 0.73 0.71 0.70 GLUCOSE 100 95 77 CALCIUM 8.9 8.9 8.8 MAGNESIUM -- -- 0.75 PHOS -- -- 3.8 New Imaging: SCAN DOC: TELEMETRY STRIPS Result Date: 07/13/2023 Ordered by an unspecified provider. XR Abdomen 1 view (Generic) Result Date: 07/12/2023 EXAMINATION: XR ABDOMEN 1 VIEW (GENERIC) CLINICAL HISTORY: ?GJ stenosis, s/p LRYGB 06/03/23 ?GJ stenosis, s/p LRYGB 06/03/23 TECHNIQUE: Healthcare Insurance Sales Agent AP supine radiographs of the abdomen for initially planned fluoroscopic GI series, total 5 images. COMPARISON: Portable AP supine radiographs of the abdomen from earlier same day, 07/12/2023 at 1766-3799 hours 07/12/2023 CT chest, abdomen, and pelvis 07/10/2023 from [facility] FINDINGS: Surgical clips and anastomotic chain sutures again seen in the left midupper abdomen. Retained oral contrast is seen throughout in the colon from the ascending to the distal descending colon, no large bowel dilatation. No oral contrast is seen insmall bowel loops. Moderate amount of stool is seen within the ascending colon. Occasional nondilated gas-filled loops of small bowel are seen in the mid abdomen, overall paucity of small bowel gas. No abnormal intra-abdominal calcifications. Imaged lung bases appear clear. No interval osseous finding. 1. Oral contrast retained within the colon precludes proceeding with planned fluoroscopic upper GI exam. No evidence of high-grade small bowel obstruction. 2. Fluoroscopic upper GI series can be performed if so clinically desired following clearance of the residual oral contrast from the colon. 3. Rich Duque DO, discussed the results with Kati CONTRERAS on 07/12/2023 1:42 PM and verified that the results were understood. I have personally reviewed the image(s) and the resident's interpretation and agree with the findings, Josselin Ramirez MD at 07/12/2023 5:31 PM Thank you for letting us participate in the care of this patient. If you are a health care provider and have any questionsregarding this report, please contact the number below. For patients who have questions please contact the health career services manager that requested your imaging first. Electronically signed by: Josselin Ramirez MD, [facility] ([phone]), at 07/12/2023 5:31 PM XR Abdomen 1 view (Generic) Result Date: 07/12/2023 EXAMINATION: XR ABDOMEN 1 VIEW (GENERIC) CLINICAL HISTORY: Recent contrast from CT, would like to see how far it has gone TECHNIQUE: AP portable supine abdomen radiographs (4 images) COMPARISON: CT chest/abdomen/pelvis July 10, 2023 FINDINGS: Orally administered enteric contrast on June has progressed to the rectum. Normal caliber and distribution of bowel contents. Mild retainedfecal material within the ascending colon. No supine finding of intraperitoneal free air. No abnormal soft tissue contour or calcification. Lung bases are clear. No fracture. Preserved alignment at the spine and pelvis. Passage of orally administered enteric contrast to the rectum. Otherwise normal abdomen radiographs. Thank you for letting us participate in the care of this patient. If you are a health care provider and have any questions regarding this report, please contact the number below. For patients who have questions please contact the health career services manager that requested your imaging first. Electronically signed by: Jamila Ny MD, [facility] ([phone]), at 07/12/2023 7:30 AM Film Library- Storage Only CT Chest Abdomen Pelvis Result Date: 07/10/2023 This exam is auto-finalizing. It's purpose is for storage only. Assessment: Zenia Worley is a 33 y.o. female with h/o morbid obesity s/p lap gastric bypass 06/03, IDDM2, hypertension, HFpEF, and others as above who was admitted in transfer from OSH for managementof N/V in the setting of recent surgery and with imaging c/f anastomotic stricture. Yesterday she tolerated gastric bypass stage 2 (modified full liquid) diet without issues. Made NPO at midnight forswallow study today although given improvement in presenting symptoms we can forego the swallow study. May reconsider if symptoms persist in the future but she is currently stable on the appropriate post-bypass diet. Blood pressure has remained stable between 130-160 systolic. Inpatient diabetes team to make discharge recommendations, appreciate their input and care. Will touch base with hospitalmedicine for recommendations about anti-hypertensive at discharge. Patient requesting cane for discharge, otherwise no needs. Plan: Neuro/Pain: pain control with PRN Tylenol; PRN melatonin available, doxepin not on hospital formulary; Abilify, gabapentin, prazosin, trazodone CV: HDS, will continue to monitor; Lasix 20 mg daily, losartan 50 mg daily, metoprolol tartrate 25 q6hr, hydralazine and labetalol available; appreciate medicine recs and care Pulm: incentive spirometer, OOB as tolerated, CPAP while asleep FEN/GI: HLIV, gastric bypass stage 3 diet, Zofran PRN, daily Miralax Renal/: strict I/Os, urine output adequate, no sierra Wound/ID: N/A Heme: stable Endocrine: Moderate SSI, hold home glargine, DM team on board, home Synthroid Prophylaxis: SCDs, Lovenox, home norethindrone Dispo: ISCU, full code, discharge today, awaiting final medicine recommendations Signed: DIANE Brown General Surgery 9:27 AM 07/14/23 MIS service pager: [phone] * Kati Shea PA - 07/13/2023 9:35 AM EST Minimally Invasive Surgery Inpatient Progress Note ID: Zenia Worley is a 33 y.o. female with h/o IDDM2, morbid obesity s/p lap Vernell-en-Y gastric bypass 06/03/[address]), hypertension, RICHMOND (on CPAP), hypothyroidism, metabolic syndrome, PTSD, schizoaffective disorder, DID, AUB (on norethindrone), HFpEF. She was transferred from [facility] 07/12/2023 for nausea and vomiting with imaging c/f stenosis GJ and/or JJ anastomosis. Hospital Day: 1 Subjective & 24hr events: Attempted swallow study yesterday although per radiology residual enteric contrast from OSH CT in colon would obscure imaging per repeat AXR yesterday down in fluoro Transferred to ISCU yesterday evening for management of asymptomatic hypertensive urgency that was not responsive to escalating doses of IV labetalol Nicardipine gtt started in ISCU, one hypotensive episode when up to bathroom w/ dizziness and lightheadedness, witnessed by RN with no fall or LOC Nicardipine gtt stopped after 30 minutes per RN Hospital medicine consulted for hypertension, recommending increasing losartan to 50 mg daily, converting metoprolol succ 100 mg daily to metoprolol tartrate 25 mg q6hr, consider transitioning from metoprolol to Coreg, and mitigating supplemental fluids with IV Lasix for net even I/O Several episodes of hypoglycemia requiring dextrose, glargine discontinued, no humalog needed sinceadmission, last dose home insulin was Wednesday morning, last dose Mounjaro was prior to bypass Vital signs otherwise stable on room air and CPAP overnight Tolerating clear liquid diet without N/V UOP adequate -BM, +flatus O: Last value Range last 24hrs Temperature Temp: 37.1 ??C (98.8 ??F) Temp: [37 ??C (98.6 ??F)-37.8 ??C (100 ??F)] Heart Rate Heart Rate: 82 Heart Rate: [82-99] Blood Pressure BP: 146/66 BP: (97-241)/(50-130) Respiratory Rate Resp: 22 Resp: [18-25] SpO2 SpO2: 98 % SpO2: [95 %-99 %] 07/12 0701 - 07/13 0700 In: 1971 [P.O.:240; I.V.:1731] Out: 1825 [Urine:182] Intake and Output: I/O last 3 completed shifts: In: 1970 [P.O.:240; I.V.:1731] Out: 2124 [Urine:2124] I/O this shift: In: 100 [P.O.:100] Out: 100 [Urine:100] Current Medications: Current Facility-Administered Medications Medication Dose Route Frequency Provider Last Rate Last Admin losartan (Cozaar) tablet 50 mg 50 mg Oral Daily Suresh Terrell MD 50 mg at 07/13/23 0807 metoproloL tartrate (Lopressor) tablet 25 mg 25 mg Oral Q6H NICOLÁS Suresh Terrell MD 25 mg at 07/13/23 0806 labetaloL (Normodyne) (5 mg/mL) injection solution 20 mg 20 mg Intravenous Q2H PRN Noe Thomas MD hydrALAZINE (Apresoline) (20 mg/mL) injection 15 mg 15 mg Intravenous Q3H PRN Noe Thomas MD ARIPiprazole (Abilify) tablet 20 mg 20 mg Oral Daily Suresh Terrell MD 20 mg at 07/13/23 0807 furosemide (Lasix) tablet 20 mg 20 mg Oral Daily Suresh Terrell MD 20 mg at 07/13/23 0806 levothyroxine (Synthroid) tablet 200 mcg 200 mcg Oral QAM Suresh Terrell MD 200 mcg at 07/13/23 06 prazosin (Minipress) capsule 10 mg 10 mg Oral Nightly Suresh Terrell MD 10 mg at 07/12/232012 traZODone (Desyrel) tablet 300 mg 300 mg Oral Nightly Suresh Terrell MD 300 mg at 07/12/23 2014 sodium chloride 0.9 % (flush) (BD PosiFlush Normal Saline 0.9) flush 5 mL 5 mL Intravenous BID Suresh Terrell MD 5 mL at 07/13/23 0808 sodium chloride 0.9 % (flush) (BD PosiFlush Normal Saline 0.9) flush 5-20 mL 5- 20 mL Intravenous Q1Min PRN Suresh Terrell MD lidocaine (Xylocaine) 1% (10 mg/mL) injection 3 mg 0.3 mL Subcutaneous Once PRN Suresh Terrell MD ondansetron (Zofran) tablet 4 mg 4 mg Oral Q8H PRN Suresh Terrell MD Or ondansetron (pf) (Zofran) (2 mg/mL) injection 4 mg 4 mg Intravenous Q8H PRN Suresh Terrell MD acetaminophen (Tylenol) tablet 650 mg 650 mg Oral Q6H PRN Suresh Terrell MD melatonin tablet 3 mg 3 mg Oral Nightly PRN Suresh Terrell MD glucose (Glutose) 40% oral geL 15-30 g of glucose Buccal Q15 Min PRN Suresh Terrell MD Or dextrose 10% infusion 250 mL Intravenous Q15 Min PRN Suresh Terrell MD Stopped at 07/12/23 1216 Or glucagon (Glucagen) (1 mg/mL) injection solution 1 mg 1 mg Intramuscular Q15 Min PRN Suresh Terrell MD enoxaparin (Lovenox) (40 mg/0.4 mL) subcutaneous injection 40 mg 40 mg Subcutaneous 2 times per daySuresh Terrell MD 40 mg at 07/13/23 0806 norethindrone (Aygestin) tablet 10 mg 10 mg Oral TID Suresh Terrell MD 10 mg at 07/13/23 0808 gabapentin (Neurontin) capsule 300 mg 300 mg Oral Daily Suresh Terrell MD 300 mg at 07/13/23 0807 And gabapentin (Neurontin) capsule 600 mg 600 mg Oral Nightly Suresh Terrell MD 600 mg at 07/12/232013 iohexoL (Omnipaque) (300 mg/mL) solution 0-50 mL 0-50 mL Oral Once PRN Suresh Terrell MD insulin lispro (HumaLOG;Admelog) (100 unit/mL) subcutaneous injection vial 1-6 Units 1-6 Units Subcutaneous Q4H NICOLÁS Suresh Terrell MD niCARdipine (Cardene) 40 mg/200 mL (0.2 mg/mL) infusion Suresh Terrell MD Stopped at 07/12/23 2344 Physical Exam: General: awake, alert, no acute distress, flat affect HEENT: atraumatic, normocephalic, PERRLA, anicteric sclera CVS: RRR on monitor Pulm: unlabored breathing on CPAP Abd: soft, nontender, non-distended : no sierra Skin: warm, dry Ext: warm, well perfused, no jaundice, no cyanosis Recent Labs 07/13/2322707/12/23 0558 WBC 4.5 5.2 HGB 11.7 12.1 HCT 35.5* 38.2 PLATELET 228 231 Recent Labs 07/13/238 07/12/23 0558 NA 138 144 K 3.6 3.3* CL 102 108* CO2 26 28 BUN 7* 9 CREATININE 0.71 0.70 GLUCOSE 95 77 CALCIUM 8.9 8.8 MAGNESIUM -- 0.75 PHOS -- 3.8 New Imaging: SCAN DOC: TELEMETRY STRIPS Result Date: 07/13/2023 Ordered by an unspecified provider. XR Abdomen 1 view (Generic) Result Date: 07/12/2023 EXAMINATION: XR ABDOMEN 1 VIEW (GENERIC) CLINICAL HISTORY: ?GJ stenosis, s/p LRYGB 06/03/23 ?GJ stenosis, s/p LRYGB 06/03/23 TECHNIQUE: Healthcare Insurance Sales Agent AP supine radiographs of the abdomen for initially planned fluoroscopic GI series, total 5 images. COMPARISON: Portable AP supine radiographs of the abdomen from earlier same day, 07/12/2023 at 2214-9935 hours 07/12/2023 CT chest, abdomen, and pelvis 07/10/2023 from [facility] FINDINGS: Surgical clips and anastomotic chain sutures again seen in the left midupper abdomen. Retained oral contrast is seen throughout in the colon from the ascending to the distal descending colon, no large bowel dilatation. No oral contrast is seen insmall bowel loops. Moderate amount of stool is seen within the ascending colon. Occasional nondilated gas-filled loops of small bowel are seen in the mid abdomen, overall paucity of small bowel gas. No abnormal intra-abdominal calcifications. Imaged lung bases appear clear. No interval osseous finding. 1. Oral contrast retained within the colon precludes proceeding with planned fluoroscopic upper GI exam. No evidence of high-grade small bowel obstruction. 2. Fluoroscopic upper GI series can be performed if so clinically desired following clearance of the residual oral contrast from the colon. 3. Rich Duque DO, discussed the results with Kati CONTRERAS on 07/12/2023 1:42 PM and verified that the results were understood. I have personally reviewed the image(s) and the resident's interpretation and agree with the findings, Josselin Ramirez MD at 07/12/2023 5:31 PM Thank you for letting us participate in the care of this patient. If you are a health care provider and have any questionsregarding this report, please contact the number below. For patients who have questions please contact the health career services manager that requested your imaging first. Electronically signed by: Josselin Ramirez MD, [facility] ([phone]), at 07/12/2023 5:31 PM XR Abdomen 1 view (Generic) Result Date: 07/12/2023 EXAMINATION: XR ABDOMEN 1 VIEW (GENERIC) CLINICAL HISTORY: Recent contrast from CT, would like to see how far it has gone TECHNIQUE: AP portable supine abdomen radiographs (4 images) COMPARISON: CT chest/abdomen/pelvis July 10, 2023 FINDINGS: Orally administered enteric contrast on June has progressed to the rectum. Normal caliber and distribution of bowel contents. Mild retainedfecal material within the ascending colon. No supine finding of intraperitoneal free air. No abnormal soft tissue contour or calcification. Lung bases are clear. No fracture. Preserved alignment at the spine and pelvis. Passage of orally administered enteric contrast to the rectum. Otherwise normal abdomen radiographs. Thank you for letting us participate in the care of this patient. If you are a health care provider and have any questions regarding this report, please contact the number below. For patients who have questions please contact the health career services manager that requested your imaging first. Electronically signed by: Jamila Ny MD, [facility] ([phone]), at 07/12/2023 7:30 AM Film Library- Storage Only CT Chest Abdomen Pelvis Result Date: 07/10/2023 This exam is auto-finalizing. It's purpose is for storage only. Assessment: Zenia Worley is a 33 y.o. female with h/o morbid obesity s/p lap gastric bypass 06/03, IDDM2, hypertension, HFpEF, and others as above who was admitted in transfer from [facility] for managementof N/V in the setting of recent surgery and with imaging c/f anastomotic stricture. Unable to do swallow study yesterday due to residual enteric contrast in colon, plan to repeat tomorrow. She is tolerating clears without N/V. Medically she has several issues that need to be addressed prior to discharge, namely hypertension and blood glucose control. Diabetes team will see her today and make recommendations based on her current home regimen and recent episodes of hypoglycemia. Medicine team on board for blood pressure management. Current regimen below, will CTM. Nicardipine gtt stopped quickly d/t symptomatic hypotension. Plan: Neuro/Pain: pain control with PRN Tylenol; PRN melatonin available, doxepin not on hospital formulary; Abilify, gabapentin, prazosin, trazodone CV: HDS, will continue to monitor; Lasix 20 mg daily, losartan 50 mg daily, metoprolol tartrate 25 q6hr, hydralazine and labetalol available Pulm: incentive spirometer, OOB as tolerated, CPAP while asleep FEN/GI: HLIV, gastric bypass stage 2 diet, Zofran PRN Renal/: strict I/Os, urine output adequate, no sierra Wound/ID: N/A Heme: stable Endocrine: Moderate SSI, hold home glargine, DM team on board, home Synthroid Prophylaxis: SCDs, Lovenox, home norethindrone Dispo: ISCU, full code, discharge pending swallow study tomorrow, management of blood pressure and blood glucose, no anticipated discharge needs Signed: DIANE Brown General Surgery 9:59 AM 07/13/23 MIS service pager: [phone] * Linette Boothe RN - 07/12/2023 10:12 PM EST lpn instructor reached out to [employer] to let them know that the patient's BP was 222/106 and that the patient was symptomatic. [facility] wanted to know what the MD had to say. Primary RN spoke with MD prior to me reaching out to [employer] and the MD wanted to check BP in all 4 limbs and try and get a BP under 170. BP was checked in all 4 limbs and SBP was well over 200. lpn instructor informed [employer] that we checked all 4 limbs and it was still over 200. [facility] wanted to know what the MD wanted to do, per MD who spoke with his senior he wanted to give the patient 80mg of Labetalol IV.lpn instructor spoke with 3W Charge who said we should not push 80 of Labetalol on the floor. 15mg of Hydralazine was ordered IV and if not change in the BP in one hour patient would need to be moved to ISCU for Nicardipine gtt. lpn instructor gave IV Hydralazine at 2141. * Suresh Terrell MD - 07/12/2023 9:47 PM EST Interval Update Noticed around 9pm patient was hypertensive to 200s systolic. Called RN to discuss BP management since a plan was in place from sign out. The plan was to give 80mg of labetalol IV if patient remainedhypertensive after sign out, however 20mg labetalol IV was already given as this was ordered as a PRN medication. Discussed with RN that we will be giving the 80mg dose as she was not responding to the 20mg dose. Day team had discussed this plan with multiple PharmD as well as nurses and physicians. Charge nurse stated they cannot give 80mg IV labetalol on the floor. Life safety was called by nursing to assess as well. Life safety called pharmacy and spoke with PharmD who informed them there were no limits to labetalol IV administration on the floor, however charge nurse spoke with a separatecharge nurse and they both agreed it could not be given on the floor. Because of this, discussed plan with night senior. We attempted to give increased dose of hydralazine that brought her SBP down to 180s, however was not effective enough. Nicardipine drip was then started and patient was upgradedto ISCU. Nicardipine drip stopped after 30min in ISCU and patient became hypotensive, had one episode of dizziness and near fall with this episode per bedside ISCU nurse. Suresh Terrell MD Ophthalmology PGY-1 * Elizabeth Medrano RN - 07/12/2023 7:03 PM EST OUTCOME EVALUATION NOTE: OUTCOME SUMMARY: Patient AOx4, hypertensive through shift- team aware. Hydralozine, labetalol and enalaprilat ordered w/ minimal to no effect- see MAR/flowsheets. Provider and life safety at bedside. Please see Noe Thomas MD, note. Hypoglycemic X3- treated w/ IV D10 and juice- see MAR/flowsheets. Team aware, diabetic management team consulted. Otherwise VSS on RA. Pt wears CPAP when laying in bed. Pt to Xray this shift- diet advanced to clears. Soap and water precautions d/c. Denies nausea/vomiting, CP, SOB, N/T, pain. Patient voiding to BR w/ SBA. Patient resting in between care. No further changes at this time. PLAN MOVING FORWARD: Blood pressure management Blood glucose management Mobilization I&O's D/C planning INDIVIDUALIZED FALL PREVENTION INTERVENTIONS: Patient is currently a high risk to Fall. Patient educated on bed/chair alarm, demonstrates proper use of call neal and verbalizes understanding of fall preventions implemented. Patient-specific fall risk factors per assessment: [current deficits]: hospital environment, medication, IV lines, pain, general weakness Assistance [level of assistance required for transfers and ambulation]: SBA Supervision [direct monitoring required during toileting and ADLs]: eyes on, hands on Surveillance [continuous indirect monitoring]: Masimo, bed alarm, room near nurses station, nurse knowledge exchange Elizabeth Medrano RN * Noe Thomas MD - 07/12/2023 7:00 PM EST Brief Progress Note Patient has remained hypertensive today despite multiple escalating doses of labetalol over her home antihypertensive medications. These pressures were approximately consistent across multiple extremities. She has remained asymptomatic. Denies headache, vision changes, and pain. Explains she checked her blood pressure approximately a week ago with SBP ~170. There were concerns from nursing staff regarding appropriateness of escalating doses of labetalol given the patient's floor status. While this was being investigated, enalaprilat was instead given as her SBP remained greater than 200. The next intended dose of labetalol (80 mg) was discussed with fellow MD, clinical PharmD, and (later) inpatient PharmD who agreed that this was appropriate for this patient's unresponsive hypertensive crisis despite floor status. EKG was sinus and without acute changes at this time. At this point, patient's BP had finally improved to SBP ~170. Shortly thereafter, RN paged to reported SBP > 200 again and that the patient was now endorsing dizziness. Labetalol 80 was ordered with instructions to check multiple extremities to ensure reproducible blood pressures across extremities both before and after administration. Labetalol was then held given RN reported inconsistent BP across extremities (which were previously relatively consistent). - Plan for IV labetalol 80 mg x1 if patient becomes/remains hypertensive with reproducible pressures across different extremities. If inadequate response, plan for second dose of IV enalaprilat 1.25 mg x1 if it has been at least 6 hours since the previous dose. If inadequate response or if patient not able to receive second enalaprilat dose, then will likely transfer to ISCU for nicardipine gtt with medicine consult for further assistance. Discussed with fellow and clinical pharmacist who agree. Avoid overcorrection of hypertension (goal SBP < 170 is reasonable). Noe Thomas MD 07/12/23 MIS [id number] * Kory Pereyra, [facility] - 07/12/2023 4:51 AM EST Respiratory Therapy NIV Note Zenia Worley is a 33 y.o. female with a past medical history of T2DM, PTSD, schizoaffective disorder, morbid obesity status post Vernell-en-Y procedure 06/03/2023 who presents to [facility] on 07/12/2023 as a direct transfer from [facility] for gastric fistula. NIV Settings: NIV Mode: CPAP PEEP/CPAP (cm H2O): 14 cm H20 FiO2 (%): 21 % NIV Measurements: Resp: 16 Mve: 7.5 Leak (L/min): 0 L/min Vte: 463 SpO2: 99 % Skin Assessment: NIV Skin Assessment WDL: WDL Assessment: Pt seen for set up of CPAP for hx of RICHMOND. Pt denies nausea, pt able to remove retentionstrap on own. Plan: Support with CPAP machine. Pt lives in [place] and is unable to obtain hers. Kory Pereyra RCP documented in this encounter H&P Notes * Suresh Terrell MD - 07/12/2023 2:56 AM EST Minimally Invasive Surgery Admission History & Physical Patient Name: Zenia Worley MR#: [id number] : 1990 Admission Date: 07/12/2023 Indication for Admission: Gastric anastomotic stricture History of Present Illness: Zenia Worley is a 33 y.o. female with a past medical history of T2DM, PTSD, schizoaffective disorder, morbid obesity status post Vernell-en-Y procedure 06/03/2023 who presents to [facility] on 07/12/2023 as a direct transfer from [facility] for gastric fistula. Patient reports that 07/10/2023 she was having nausea and vomiting and presented to the emergency department at [facility]. CT scan of her abdomen was done at this time and was initially read as negative for any significant findings. She was found to have a low blood sugar with a wish to admit her, though she decided to go home and leave AMA. Yesterday 07/11/2023 she did have her breakfast in the morning. She began to have nausea and vomiting again around noon that persisted until 9 PM when she returned to the emergency department at [facility]. Radiology had reached out to Dr. Contreras at [facility] who felt that it appeared she had a stricture in her gastric anastomosis. As he was the surgeon who did her initial surgery, and it was decided she would transfer to [facility]. She currently denies any chest or abdominal pain, fever, chills, shortness of breath, headaches. Her last bowel movement was earlier this evening and she reports it was solid. She is still passing gas. Her last meal was at breakfast yesterday morning. Past Medical History: Past Medical History: Diagnosis Date Anemia Angina pectoris Asthma Bleeding disorder Cellulitis and abscess of buttock 12/2017 immobilized after panic induce seizure, developed bedsore, flesh eating bacteria, debridement, exposed tailbne, 6 months to heal Chronic anxiety CPAP (continuous positive airway pressure) dependence Diabetes Gastroesophageal reflux High blood pressure Hyperlipidemia Hypothyroid Irregular heart beat Motion sickness Obstructive sleep apnea Spinal paralysis Transfusion history Patient Active Problem List Diagnosis Code Essential hypertension, benign I10 Long-term insulin use Z79.4 exterminator termite 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 Z79.84 Mixed hyperlipidemia E78.2 RICHMOND (obstructive sleep apnea) G47.33 Other specified hypothyroidism E03.8 PTSD (post-traumatic stress disorder) F43.10 Schizoaffective disorder F25.9 Type 2 diabetes mellitus with hyperglycemia, with long-term current use of insulin E11.65, Z79.4 Insomnia G47.00 Vitamin D deficiency E55.9 Class 3 severe obesity with body mass index (BMI) of 60.0 to 69.9 in adult E66.01, Z68.44 Vaginal bleeding N93.9 Cardiomegaly I51.7 Constipation K59.00 Diabetic macular edema E11.311 Dissociation 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 Heart failure with preserved ejection fraction I50.30 Hemorrhagic shock R57.8 Iron deficiency anemia due to chronic blood loss D50.0 Papilledema H47.10 Plantar fasciitis M72.[address] elevation R94.31 Status post embolization of uterine artery Z98.890 Schizoaffective disorder, bipolar type F25.0 Morbid obesity E66.01 Gastric anastomotic stricture K92.9, K31.89 Past Surgical History: Past Surgical History: Procedure Laterality Date CHG CYTOPATH,CERV/VAG,AUTO THIN LAYER,INTERP N/A 03/03/2022 PAP SMEAR UNDER ANESTHESIA performed by Sabrina Swain MD at [facility] MAIN OR IR ARTERIAL INTERVENTION 10/13/2022 IR Arterial Intervention 10/13/2022 Pradip Avila MD [facility] INTERVENTIONL RAD PRG ECHOGRAPHY TRANSVAGINAL NON-OB Midline 03/03/2022 ULTRASOUND, TRANSVAGINAL (WRVU 0.69) performed by Sabrina Swain MD at [facility] MAIN OR PRO HYSTEROSCOPY, W/ENDO BX N/A 03/03/2022 HYSTEROSCOPY, SURG W/ENDOMETRIAL SAMPLING, POLYPECTOMY (WRVU 4.74) performed by Sabrina Swain MD [facility] MAIN OR PRO INSERT INTRAUTERINE DEVICE N/A 03/03/2022 INSERTION OF IUD, VAGINAL APPROACH (WRVU 1.01) performed by Sabrina Swain MD at [facility] MAIN OR PRO LAP GASTRIC BYPASS/VERNELL-EN-Y N/A 06/03/2023 @LAPAROSCOPIC GASTROPLASTY W/ VERNELL-EN-Y CONSTRUCTION (WRVU 29.4) performed by Gee Contreras MD at [facility] MAIN OR PRO PELVIC EXAMINATION W ANESTH N/A 03/03/2022 PELVIC EXAM UNDER ANESTHESIA (VU 1.75) performed by Sabrina Swain MD at [facility] MAIN OR Home Medications: Current Outpatient Medications Medication Instructions acetaminophen (TYLENOL) 650 mg, Oral, EVERY 6 HOURS PRN ARIPiprazole (Abilify) 20 mg tablet TAKE ONE TABLET BY MOUTH EVERY DAY FOR SCHIZOAFFECTIVE DISORDER, BIPOLAR TYPE BD AutoShield Duo Pen Needle 30 gauge x 16 Needle USE UP TO 5 PEN NEEDLES DAILY chlorproMAZINE (Thorazine) 100 mg tablet chlorproMAZINE (THORAZINE) 300 mg cholecalciferol, Vitamin D3, 1,250 mcg (50,000 unit) Capsule every week doxepin (SILENOR) 6 mg, Oral, NIGHTLY Farxiga 5 mg, Oral, DAILY ferrous gluconate (FERATE) 324 mg, Oral, 2 TIMES DAILY furosemide (Lasix) 20 mg tablet TAKE 1 TO 2 TABLETS BY MOUTH EVERY MORNING gabapentin (Neurontin) 300 mg capsule 1 capsule, Oral, NIGHTLY, Takes gabapentin 300 mg in AM and 600 mg in PM gabapentin (NEURONTIN) 300 mg, Oral, 2 TIMES DAILY glucose 4 gram Tablet, Chewable CHEW ONE TABLET BY MOUTH EVERY 10 MIN. NEEDED FOR HYPOGLYCEMIA UNTIL SYMPTOMS OF LOW BLOOD SUGAR ARE CONTROLLED hydrOXYzine (VISTARIL) 25 mg, Oral, 3 TIMES DAILY PRN insulin glargine (LANTUS) 10 Units, Subcutaneous, 2 TIMES DAILY, 10 units in AM & 12 units in PM levothyroxine (SYNTHROID) 200 mcg, Oral, DAILY losartan (Cozaar) 25 mg tablet metFORMIN XR (GLUCOPHAGE XR) 1,000 mg, Oral, 2 TIMES DAILY methocarbamoL (Robaxin) 500 mg tablet metoprolol succinate XL (Toprol-XL) 100 mg ER 24 hr tablet norethindrone (AYGESTIN) 10 mg, Oral, 3 TIMES DAILY NovoLOG Flexpen U-100 Insulin 9 Units, Subcutaneous, 3 TIMES DAILY BEFORE MEALS, 35 UNITS THIS AM
SLIDING SCALE 9-35 UNITS BID polyethylene glycoL (MIRALAX) 17 g, Oral, DAILY prazosin (MINIPRESS) 10 mg, Oral, NIGHTLY rosuvastatin (Crestor) 40 mg tablet 1 tablet, Oral, NIGHTLY senna (Senokot) 8.6 mg tablet Oral, DAILY traZODone (Desyrel) 150 mg tablet 2 tablets, Oral, NIGHTLY Trulicity 0.75 mg, Subcutaneous, EVERY 7 DAYS ursodioL (ACTIGALL) 300 mg, Oral, 2 TIMES DAILY Allergies: Allergies Allergen Reactions Fluoxetine Affected glucose level Mushroom Rash Past Family History: Family History Problem Relation Age of Onset Uterine Cancer Neg Hx Ovarian Cancer Neg Hx Breast Cancer Neg Hx Social History: Social History Tobacco Use Smoking status: Former Smokeless tobacco: Never Vaping Use Vaping Use: Former Substances: Nicotine Substance Use Topics Alcohol use: Not Currently Drug use: Never ROS: As per HPI. Remainder of ROS is otherwise noncontributory. Vitals: Last Value Range last 24 hrs Temperature Temp: 36.6 ??C (97.9 ??F) Temp: [36.6 ??C (97.9 ??F)] Heart Rate Heart Rate: 93 Heart Rate from SpO2: 93 bpm Heart Rate: [93] Heart Rate From SP02 Min: 93 bpm Max: 93 bpm Blood Pressure BP: (!) 188/106 (RN notified) BP: (188)/(106) BP (Arterial Line): -- Respiratory Rate Resp: 20 Resp: [20] SpO2 SpO2: 97 % SpO2: [97 %] O2 Device O2 Device: None (Room air) Physical Exam: GEN: resting comfortably in bed, pleasant, conversant, NAD HEENT: normocephalic, atraumatic CHEST: comfortable work of breathing on RA CV: regular rate, well perfused ABD: soft, nondistended, non tender. EXTR: moving all extremities spontaneously, trace edema BLE NEURO: awake and alert, grossly intact, nonfocal, follows commands Labs: No results for input(s): WBC, HGB, HCT, PLATELET, PT, INR, PTT in the last 72 hours. No results for input(s): NA, K, CL, CO2, BUN, CREATININE, GLUCOSE, CALCIUM, MAGNESIUM, PHOS in the last 72 hours. Studies: KUB pending Assessment and Plan: Zenia Worley is a 33 y.o. female who had a Vernell-en-Y procedure 06/03/2023 presenting with nausea and vomiting, found to have gastric anastomosis stricturing on CT scan. She is currently in stable condition. We will admit her to the minimally invasive surgery service. She will remain n.p.o. overnight, and we will obtain a KUB to examine the transit of any residual contrast. Plan: Neuro: Home gabapentin, abilify, prazosin, doxepin, trazodone, tylenol prn CV: Hold home BP meds overnight, consider adding PRNs in the AM Resp: Encourage IS, OOB. [place], CTM GI: - Antiemetics PRN - Pericolace BID - No diet orders on file Renal/: - Strict I/Os, monitor UOP. Monitor lytes, supplement prn. - Fluids: LR mIVF Heme: Lovenox qHS ID: [place], CTM Endo: Home synthroid Resp: OOB, IS GI: Antiemetics PRN DVT: chemoprophylaxis per above, SCDs, OOB Activity: AAT. Up in chair most of day. Ambulate in bess TID Dispo: - Level of Care Med / Surg - Code Status: History Suresh Terrell MD 07/12/2023 Minimally Invasive Surgery Service Team pager [phone] documented in this encounter Miscellaneous Notes * Care Management Discharge - Bijal Dodge RN - 07/14/2023 12:57 PM EST CARE MANAGEMENT FINAL DISCHARGE NOTE Chart reviewed, care reviewed with primary team and at interdisciplinary rounds. Patient is medically ready for discharge to home without services. Needs for Transition of Care: Plan for discharge is: Home w/o Services Outpatient Agency/Support Group Needs: None Agency Referrals & Follow-up Care: Transportation: family or friend will provide Functional status prior to admission: Independent Home Environment: Others in the home: alone. Current Living Arrangements: home/apartment/condo. Accessibility Concerns:Patient lives in a second floor apartment that has an elevator.. Current Functional Ability: Independent DME used at home: grab bar - toilet, grab bar - tub/shower (stand up shower) DME Needed at Discharge: Straight cane from [facility] Ambulatory Support Needs: Cane - straight Provider: [facility] Patient is insured through: Primary Insurance: MEDICARE Payor: MEDICARE / Plan: MEDICARE PART A & B / Product Type: *No Product type* / Secondary Insurance: MEDICAID [place] Prescription Coverage: Yes This plan was formulated with input from patient, and team. All are in agreement with plan. CAPO Paulson, reel cart operator of Care Management Pager [phone] * Plan of Care - Lashell Matos RN - 07/14/2023 9:34 AM EST OUTCOME EVALUATION NOTE: OUTCOME SUMMARY: BP in the 150s - due losartan given, otherwise VSS on RA, denies pain/SOB. NSR on tele. Independentto the bathroom. ON CPAP while asleep. Bariatric pureed diet resumed. Oral K 40 meq given for K of 3.7. Discharge order in. Discharge instructions including medication changes discussed with pt, verbalized understanding and able to do teach back, questions answered accordingly. Discharged to home, ambulatory accompanied by a friend. CPG GOAL OUTCOME EVALUATION: Problem: Adult Inpatient Plan of Care Goal: Plan of Care Review Outcome: Ongoing (Interventions Implemented as Appropriate) Goal: Patient-Specific Goal (Individualized) Outcome: Ongoing (Interventions Implemented as Appropriate) Goal: Absence of Hospital-Acquired Illness or Injury Outcome: Ongoing (Interventions Implemented as Appropriate) Goal: Optimal Comfort and Wellbeing Outcome: Ongoing (Interventions Implemented as Appropriate) Goal: Readiness for Transition of Care Outcome: Ongoing (Interventions Implemented as Appropriate) Problem: Pain Acute Goal: Acceptable Pain Control and Functional Ability Outcome: Ongoing (Interventions Implemented as Appropriate) Problem: Asthma Comorbidity Goal: Maintenance of Asthma Control Outcome: Ongoing (Interventions Implemented as Appropriate) Problem: Behavioral Health Comorbidity Goal: Maintenance of Behavioral Health Symptom Control Outcome: Ongoing (Interventions Implemented as Appropriate) Problem: COPD Comorbidity Goal: Maintenance of COPD Symptom Control Outcome: Ongoing (Interventions Implemented as Appropriate) Problem: Diabetes Comorbidity Goal: Blood Glucose Level Within Targeted Range Outcome: Ongoing (Interventions Implemented as Appropriate) Problem: Heart Failure Comorbidity Goal: Maintenance of Heart Failure Symptom Control Outcome: Ongoing (Interventions Implemented as Appropriate) Problem: Hypertension Comorbidity Goal: Blood Pressure in Desired Range Outcome: Ongoing (Interventions Implemented as Appropriate) Problem: Obstructive Sleep Apnea Risk or Actual (Comorbidity Management) Goal: Unobstructed Breathing During Sleep Outcome: Ongoing (Interventions Implemented as Appropriate) Problem: Pain Chronic (Persistent) (Comorbidity Management) Goal: Acceptable Pain Control and Functional Ability Outcome: Ongoing (Interventions Implemented as Appropriate) Problem: Seizure Disorder Comorbidity Goal: Maintenance of Seizure Control Outcome: Ongoing (Interventions Implemented as Appropriate) Problem: Nausea and Vomiting Goal: Fluid and Electrolyte Balance Outcome: Ongoing (Interventions Implemented as Appropriate) Problem: Hypertension Acute Goal: Blood Pressure Within Desired Range Outcome: Ongoing (Interventions Implemented as Appropriate) * Consult Note - Gio Jimenez MD - 07/14/2023 8:09 AM EST Medicine Consults Progress Note Consult Team/Pager: [phone] ID: 33 y/o with hx of HFpEF, HTN, obesity, RICHMOND, DM, schizophrenia, RNY Gastric bypass in May who was transferred to [facility] from 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 Hospital medicine consulted for hypertension 24 Hour Events/Subjective: - Bps 134-160/69-95 - Denies headaches, vision changes, lightheadedness, dizziness, nausea, vomiting, new sensory changes, new weakness, chest pain, SOB, palpitation, abdominal pain, diarrhea, and numbness and tingling on hands and feet. - Feeling well this morning Vitals: Last value Range last 24 hrs Temperature Temp: 37.1 ??C (98.8 ??F) Temp: [36.5 ??C (97.7 ??F)-37.1 ??C (98.8 ??F)] Heart Rate Heart Rate: 86 Heart Rate: [65-87] Blood Pressure BP: 158/75 BP: (134-160)/(69-95) Respiratory Rate Resp: 20 Resp: [13-20] SpO2 SpO2: 98 % SpO2: [97 %-99 %] IO 07/13 0701 - 07/14 0700 In: 130 [P.O.:130] Out: 1875 [Urine:1875] Wt (last/admit) (!) 173.8 kg (383 lb 3.2 oz) 174.32 kg Physical Exam: Gen: NAD, A&Ox3, breathing comfortably on RA HEENT: PERRLA, EOMI, sclera anicteric, OP clear, MMM CVS: RRR with normal S1/S2, no appreciable murmurs Pulm: CTA b/l, breathing non-labored with good air movement, no crackles/rhonchi or wheeze Abd: NABS, soft, NT, ND, no abnormal masses or pulsations Ext: trace ankle edema b/l Labs: Recent Labs 07/14/23 0031 07/13/23 0228 07/12/23 0558 WBC 4.0 4.5 5.2 HGB 11.5* 11.7 12.1 HCT 34.8* 35.5* 38.2 PLATELET 217 228 231 Recent Labs 07/14/231 07/13/238 07/12/23 0558 NA 139 138 144 K 3.7 3.6 3.3* CL 104 102 108* CO2 BUN 9 7* 9 CREATININE 0.73 0.71 0.70 Assessment: 33 y/o with hx of HFpEF, HTN, obesity, RICHMOND, DM, schizophrenia, RNY Gastric bypass in May who was transferred to [facility] from 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 Hospital medicine consulted for hypertension BP has been 130s-150s. While patient remains hypertensive and could likely use further adjustment down the road would be best to gradually increase antihypertensives in the ambulatory setting when acute stressors of hospitalization and bowel stricture are not confounding to avoid over medicating orcreating significant changes without the opportunity for close follow up. Recommendations: - Discharge with increased dose losartan 50 mg daily, follow up with PCP for cre/K monitoring and possible escalation of antihypertensives. - Return to metoprolol 100mg succinate qd Gio Jimenez MD Internal Medicine - PGY3 Medicine Consults #[id number] Recommendations discussed with primary treating team. Medicine Consult service will continue to follow. x Recommendations are above. Medicine Consult service will sign off. If clinical changes occur or new questions arise, page [phone]. Case discussed with Dr. Hector Associated attestation - Cristofer Hector DO - 07/14/2023 11:43 AM EST Hospital Medicine Attending Attestation: Patient seen and examined independently. Available diagnostic testing reviewed. Management and planfor today reviewed with Gio Jimenez MD. I agree with the findings and plans as documented in their note with any additions and/or corrections noted below. Doing well with acceptable BP control currently that can be followed up with her PCP later this coming week. Continue with slight increase in her losartan on discharge. Repeat BMP with PCP follow-up. Cristofer Hector DO Pager [phone] 07/14/2023 11:42 AM * Plan of Care - Toma Rockwell RN - 07/14/2023 4:22 AM EST OUTCOME EVALUATION NOTE: OUTCOME SUMMARY: Zenia is A+Ox4, following commands. Pt denies chest pain/ SOB. NSR on tele- see scanned doc. Pt ambulating to the BR- urine cloudy and concentrated. Pt denies N/V. BMx1. Pt NPO for swallow study this afternoon. Pt was able to rest/sleep on CPAP in between care. PLAN MOVING FORWARD: Swallow study Daily weight Q4 blood sugars INDIVIDUALIZED FALL PREVENTION INTERVENTIONS: Patient-specific fall risk factors per assessment: [current deficits]: on going Assistance [level of assistance required for transfers and ambulation]: on going Supervision [direct monitoring required during toileting and ADLs]: see assessment Surveillance [continuous indirect monitoring]: see assessment Patient-specific fall prevention interventions for sensory deficits provided, if applicable: call light within reach, bed in lowest position, bed alarm set, purposeful hourly rounding * Plan of Care - Bernardo Roper RN - 07/13/2023 5:35 PM EST OUTCOME EVALUATION NOTE: OUTCOME SUMMARY: AAOx4. NSR. On RA when OOB, bi-pap while in bed. Ambulating to bathroom w/o complications. Transitioned to bariatric diet. No corrective insulin required for Q4 BG checks. Denies pain. PLAN MOVING FORWARD: NPO at midnight for swallow study 07/14 CARE PLAN GOAL OUTCOME EVALUATION: Problem: Adult Inpatient Plan of Care Goal: Plan of Care Review Outcome: Ongoing (Interventions Implemented as Appropriate) Goal: Patient-Specific Goal (Individualized) Outcome: Ongoing (Interventions Implemented as Appropriate) Goal: Absence of Hospital-Acquired Illness or Injury Outcome: Ongoing (Interventions Implemented as Appropriate) Goal: Optimal Comfort and Wellbeing Outcome: Ongoing (Interventions Implemented as Appropriate) Goal: Readiness for Transition of Care Outcome: Ongoing (Interventions Implemented as Appropriate) Problem: Pain Acute Goal: Acceptable Pain Control and Functional Ability Outcome: Ongoing (Interventions Implemented as Appropriate) Problem: Asthma Comorbidity Goal: Maintenance of Asthma Control Outcome: Ongoing (Interventions Implemented as Appropriate) Problem: Behavioral Health Comorbidity Goal: Maintenance of Behavioral Health Symptom Control Outcome: Ongoing (Interventions Implemented as Appropriate) Problem: COPD Comorbidity Goal: Maintenance of COPD Symptom Control Outcome: Ongoing (Interventions Implemented as Appropriate) Problem: Diabetes Comorbidity Goal: Blood Glucose Level Within Targeted Range Outcome: Ongoing (Interventions Implemented as Appropriate) Problem: Heart Failure Comorbidity Goal: Maintenance of Heart Failure Symptom Control Outcome: Ongoing (Interventions Implemented as Appropriate) Problem: Hypertension Comorbidity Goal: Blood Pressure in Desired Range Outcome: Ongoing (Interventions Implemented as Appropriate) Problem: Obstructive Sleep Apnea Risk or Actual (Comorbidity Management) Goal: Unobstructed Breathing During Sleep Outcome: Ongoing (Interventions Implemented as Appropriate) Problem: Pain Chronic (Persistent) (Comorbidity Management) Goal: Acceptable Pain Control and Functional Ability Outcome: Ongoing (Interventions Implemented as Appropriate) Problem: Seizure Disorder Comorbidity Goal: Maintenance of Seizure Control Outcome: Ongoing (Interventions Implemented as Appropriate) Problem: Nausea and Vomiting Goal: Fluid and Electrolyte Balance Outcome: Ongoing (Interventions Implemented as Appropriate) Problem: Hypertension Acute Goal: Blood Pressure Within Desired Range Outcome: Ongoing (Interventions Implemented as Appropriate) * Initial Assessments - Bijal Dodge RN - 07/13/2023 12:54 PM EST Office of Care Management Initial Assessment Bijal Dodge RN reviewed record and discussed patient with Care Team. Source of Information: Team, bedside nurse, medical record, and Patient Introduced self/reviewed role; services accepted. Admitted From: Transfer from another hospital Location: [facility] Reason for Hospitalization: s/p lap Vernell-en-Y gastric bypass 06/03/2023 for morbid obesity, now admitted for nausea and vomiting with imaging c/f stenosis GJ and/or JJ anastomosis. Covid Vaccination Status: 1st, 2nd & booster Past medical History: Past Medical History: Diagnosis Date Anemia Angina pectoris Asthma Bleeding disorder Cellulitis and abscess of buttock 12/2017 immobilized after panic induce seizure, developed bedsore, flesh eating bacteria, debridement, exposed tailbne, 6 months to heal Chronic anxiety CPAP (continuous positive airway pressure) dependence Diabetes Gastroesophageal reflux High blood pressure Hyperlipidemia Hypothyroid Irregular heart beat Motion sickness Obstructive sleep apnea Spinal paralysis Transfusion history Hospitalizations Within the Past 30 Days: no previous admission in last 30 days Current Decision-Making Capacity: Self If AD's have not been completed the following surrogate would be surrogate decision maker per [place] surrogate decision making law. (Only good for 180 days) Any patient receiving care in [place] must abide by [place] law. The hierarchy for surrogate decision making is: (a) Patient???s spouse or civil union partner unless there is a divorce proceeding, separation agreement, or restraining order limiting that person???s relationship with the patient. (b) Any adult son or daughter of the patient. (c) Either parent of the patient. (d) Any adult brother or sister of the patient. (e) Any adult grandchild of the patient. (f) Any grandparent of the patient. (g) Any adult aunt, uncle, niece, or nephew of the patient. (h) A close friend of the patient. (i) The agent with financial power of deputy prosecuting attorney or a conservator appointed in accordance with RSA 464-A. (j) The guardian of the patient???s estate. Advance Care Planning: Attempt Cardiopulmonary Resuscitation - Inpatient <no information> -Advanced Directive: No, declines Current Coping/Education/Information Needs: Patient expressed concern about an event that has takenher months to coordinate this Wednesday and has expressed her concern with being discharged by then. Current Functional Ability: Assistive Person Functional Status Prior to Admission: Independent Prior ADLs & IADLs: Independent with all ADLs & IADLs Bathing: Independent with Bathing Dressing: Independent with Dressing Home Environment: Others in the home: alone. Current Living Arrangements: home/apartment/condo. Accessibility Concerns:Patient lives in a second floor apartment that has an elevator. In the last 12 months, was there a time when you were not able to pay the mortgage or rent on time?: No In the last 12 months, was there a time when you did not have a steady place to sleep or slept in ashelter (including now)?: No In the past 12 months has the electric, gas, oil, or water company threatened to shut off services in your home?: No (Heat is included in her rent.) Within the past 12 months, you worried that your food would run out before you got the money to buymore.: Never true (Patient receives food stamps.) Within the past 12 months, the food you bought just didn't last and you didn't have money to get more.: Never true Resource / Environmental Concerns: Resource/Environmental Concerns: none In the past 12 months, has lack of transportation kept you from medical appointments or from getting medications?: No In the past 12 months, has lack of transportation kept you from meetings, work, or from getting things needed for daily living?: No Current DME: grab bar - toilet, grab bar - tub/shower (stand up shower) Home Address confirmed as: [address] [place] [address] [address] [facility] [id number] Social & Family Supports: All names listed below confirmed with patient as current and correct Maria R Grullon, sister [phone] Extended Emergency Contact Information Primary Emergency Contact: Mary Castro [facility] Mobile Relation: Friend Current Care Provided by: self Provides Primary Care For: no one Caregiver if needed: friend(s) Quality of Family relationships: helpful, supportive, involved Community Resources being provided currently: outpatient psychiatric care, support group(s) Behavioral Health History: Patient is diagnosed with PTSD, schitzoaffective disorder, and disassocciative disorder. She currently sees a psychiatrist and therapist at [facility]. She also receives service from [facility]. Her Cashier Host/Hostess is Zachary Chiu. Patient feels like she has a good support system with her friends. Patient has a history of ETOH (quit 03/2021) , smoking cigarettes, and marijuana (quit 07/2020). Substance Use/Abuse confirmed: Social History Tobacco Use Smoking Status Former Smokeless Tobacco Never In the past year have you used an illegal drug or used a prescription medication for non-medical reasons?: No 0 No problems reported 1-2 Low level 3-5 Moderate level 6-8 Substantial level 9- 10 Severe level In the past year have you had 4 or more drinks a day containing alcohol?: No 0 to 7 points: Low risk 8 to 15 points: Medium risk 16 to 19 points: High risk 20 to 40 points: Addiction likely Other Pertinent/Service Specific Information: none Health/Prescription Coverage: Primary Insurance: MEDICARE Payor: MEDICARE / Plan: MEDICARE PART A & B / Product Type: *No Product type* / Secondary Insurance: MEDICAID [place] ONLY if patient has Medicare A&B - Does this patient have secondary insurance?: Yes ; Prescription Coverage: Yes Preferred Pharmacy: [facility] [place], [place] - [address] [place] [address] [address] [facility] [address] Status: Patient is a : No Primary Care Provider confirmed: Lia Pearson, MANAGER [place] [phone] Patient/Caregiver Goals of Treatment: Return home when medically ready Potential Needs for Transition of Care: none Agency Referrals: I have met with the patient to: discuss discharge planning needs. provide the [facility], Office of Care Management letter from the Supervisor [employer] pertaining to rehab referrals. provide a letter describing our affiliations within the [facility] and educate about their right to choose where referrals are sent. provide a list of Home Health Agencies / Durable Medical Equipment vendors which serve their preferred geographic area. provided patient with [facility] Star Quality Rating handout. They have requested referrals to: [facility] [address] [place] [address] Billing Inquiries: For a walking cane Note routed to a Insurance Adjuster who will communicate referrals to facilities and provide any required information. Transportation: no concerns (Patient does not drive. She relies on her friends and public transportaion. She does not have concerns about that.) Transportation Anticipated: family or friend will provide Concerns to be Addressed: discharge planning Assessment: Patient is admitted to [facility] service for s/p lap Vernell-en-Y gastric bypass 06/03/2023 for morbid obesity, now admitted for nausea and vomiting with imaging c/f stenosis GJ and/or JJ anastomosis. Plan: Swallow study tomorrow, consulting medicine and diabetes team, and nausea management. A member of the Care Management team will continue to monitor progress, follow for continuity of care and assist with transition of care planning. CAPO Paulson, reel cart operator of Care Management Pager [phone] * Consult Note - Jonna Jewell MD - 07/13/2023 9:35 AM EST Medicine Consults Progress Note Consult Team/Pager: [phone] ID: 33 y/o with hx of HFpEF, HTN, obesity, RICHMOND, DM, schizophrenia, RNY Gastric bypass in May who was transferred to [facility] from 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 Hospital medicine consulted for hypertension 24 Hour Events/Subjective: - BP dropped to 97/60 in the AM. Had received labetalol 10, 20, 40 mg and 5mg iv hydralazine as well as 1.25mg of IV enalaprilat and had just started on nicardipine drip, which was stopped. - Patient unaware of hypotensive episode as she was sleeping. - Denies headaches, vision changes, lightheadedness, dizziness, nausea, vomiting, new sensory changes, new weakness, chest pain, SOB, palpitation, abdominal pain, diarrhea, and numbness and tingling on hands and feet. - Confirms that SBP at visits were in 140s-150s but has no BP machine at home to check BP Vitals: Last value Range last 24 hrs Temperature Temp: 37.1 ??C (98.8 ??F) Temp: [37 ??C (98.6 ??F)-37.8 ??C (100 ??F)] Heart Rate Heart Rate: 82 Heart Rate: [82-99] Blood Pressure BP: 146/66 BP: (97-241)/(50-130) Respiratory Rate Resp: 22 Resp: [18-25] SpO2 SpO2: 98 % SpO2: [95 %-99 %] IO 07/12 0701 - 07/13 0700 In: 1971 [P.O.:240; I.V.:1731] Out: 1825 [Urine:1825] Wt (last/admit) (!) 176.5 kg (389 lb 1.8 oz) 174.32 kg Ins/Outs: Intake/Output Summary (Last 24 hours) at 07/13/2023 0943 Last data filed at 07/13/2023 0823 Gross per 24 hour Intake 1206 ml Output 1925 ml Net -719 ml Weights: Admit weight: 174.32 kg Patient Vitals for the past 168 hrs: Weight 07/13/23 0738 (!) 176.5 kg (389 lb 1.8 oz) 07/12/23 0154 (!) 174.3 kg (384 lb 4.8 oz) Physical Exam: Gen: NAD, A&Ox3, breathing comfortably on RA HEENT: PERRLA, EOMI, sclera anicteric, OP clear, MMM CVS: RRR with normal S1/S2, no appreciable murmurs Pulm: CTA b/l, breathing non-labored with good air movement, no crackles/rhonchi or wheeze Abd: NABS, soft, NT, ND, no abnormal masses or pulsations Ext: No edema Neuro: CN 2-12 intact; no focal deficits noted. Strength - 5/5 upper and lower extremities. Sensation to light touch intact. Labs: Recent Labs 07/13/2322707/12/23 0558 WBC 4.5 5.2 HGB 11.7 12.1 HCT 35.5* 38.2 PLATELET 228 231 Recent Labs 07/13/2322707/12/23 05 NA 138 144 K 3.6 3.3* CL 102 108* CO2 26 28 BUN 7* 9 CREATININE 0.71 0.70 No results for input(s): AST, ALT, ALKPHOS, BILITOT, BILIDIR in the last 168 hours. Recent Labs 07/13/2322707/12/23 05 CALCIUM 8.9 8.8 MAGNESIUM -- 0.75 PHOS -- 3.8 No results for input(s): INR, PT, PTT in the last 168 hours. No results for input(s): CK, TROPONINT in the last 168 hours. Recent Labs 07/13/23 0738 07/13/23 0419 07/12/23 2315 07/12/23 2031 07/12/23 1954 07/12/23 1645 POCGLU 91 98 88 137 63* 80 Inpatient Medications: Scheduled Meds: losartan 50 mg Oral Daily metoproloL tartrate 25 mg Oral Q6H NICOLÁS ARIPiprazole 20 mg Oral Daily furosemide 20 mg Oral Daily levothyroxine 200 mcg Oral QAM prazosin 10 mg Oral Nightly traZODone 300 mg Oral Nightly sodium chloride 0.9 % (flush) 5 mL Intravenous BID enoxaparin 40 mg Subcutaneous 2 times per day norethindrone 10 mg Oral TID gabapentin 300 mg Oral Daily And gabapentin 600 mg Oral Nightly insulin lispro 1-6 Units Subcutaneous Q4H NICOLÁS niCARdipine PRN Meds: labetaloL, hydrALAZINE, sodium chloride 0.9 % (flush), lidocaine, ondansetron OR ondansetron, acetaminophen, melatonin, glucose 40% oral geL OR dextrose OR glucagon, iohexoL, niCARdipine Assessment: 33 y/o with hx of HFpEF, HTN, obesity, RICHMOND, DM, schizophrenia, RNY Gastric bypass in May who was transferred to [facility] from 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 Hospital medicine consulted for hypertension BP stable this AM in around 140s/60s. No new neurological, cardiac, or GI symptoms concerning for acute damage secondary to hypotension. BP now under control (around outpatient BP readings) on home BP medications and with doubling of her home losartan. Recommend continuing the regimen for now. Would be cautious on aggressively controlling elevated BP seen during hospital stay - unless clinically indicated - as there are likely stressors (both clinical and situational) that are contributing to hypertension. Recommendations: - Continue increased dose losartan 50 mg daily - Continue metoprolol tartrate 25 mg Q6H for now given SBP in 140s; if continues to be elevated, could consider carvedilol As previously recommended - Nightly CPAP - If giving fluids mitigate with IV lasix for ~net even as patient may be prone to retain fluids. Jonna Jewell MD Internal Medicine - PGY3 Medicine Consults #[id number] X Recommendations discussed with primary treating team. Medicine Consult service will continue to follow. Recommendations are above. Medicine Consult service will sign off. If clinical changes occur or newquestions arise, page [phone]. Case discussed with Dr. Hector Associated attestation - Cristofer Hector DO - 07/13/2023 1:27 PM EST Hospital Medicine Attending Attestation: Patient seen and examined independently. Available diagnostic testing reviewed. Management and planfor today reviewed with Jonna Jewell MD. I agree with the findings and plans as documented in their note with any additions and/or corrections noted below. Overall, good BP control this morning. Agree with goal of avoiding further hypotension due to risk of symptoms. Suspect initial increase in BP due to N/V and stress reactions. Current BP showing better control with doubling of ARB. If further BP control needed, carvedilol an option, but may be easier to increase losartan again to decrease pill burden. Should have repeat BMP checked 1 week after ARB increases. Would recommend outpatient blood pressure monitoring for a brief period of time. Givenoverall improvement in blood pressures, could be discharged in the next 24 hours. Cristofer Hector DO Pager [phone] 07/13/2023 1:01 PM * Consult Note - Beba Lin APRN - 07/13/2023 9:26 AM EST Diabetes Management Team Inpatient Consult Date of Consultation: 07/13/2023 Consult Requested by: Surgery Team Reason for Consultation: Zenia Worley is a 33 y.o. 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 We are being consulted to assist with diabetes management and to provide a review of [facility] diabetes care. Diabetes History: Zenia Worley has had diabetes since 16yo~2016. She was managed with oral medications until she [id number] when insulin was started, and has been on insulin since that time. She was on Ozempic in 2021 with some weight loss, and then switched to Mounjaro end of 2022 prior to bariatric surgery with some further weight loss. Zenia had Vernell-en-y gastric bypass 06/03, and was discharged 06/05. At discharge, DM medications stopped included Mounjaro and Jardiance, and GMT recommendations for decreased Lantus 12u BID, and Humalog 2-4 w/meals plus 3:50 >150 correction. 06/11: Zenia met with outpatient Endocrinology at [facility], at that time restarted Metformin XL 500mg - 1000mg BID, and reduced Lantus to 10u BID, and recommended restarting Mounjaro 2.5mg QW. Mounjaro isno longer covered by insurance, therefore she didn't start it. Trulicity 0.75mg was prescribed instead, however she never received it prior to this hospitalization. Farxiga was restarted ~07/04 d/t Jardiance no longer being covered by insurance. She was admitted with N/V since Wednesday with hypoglycemia. On admission, she reports Lantus 8 units BID, last dose 07/11 AM. She denies lows until maybe 1 week ago, seeing 60s on her Freestyle Toshia 3 CGM. Weight history per patient report and chart: 06/2022 444lbs 05/2023 413lbs (pre-surgery) 07/12/2023 389lbs (24lb down since surgery) She is frustrated that she hasn't lost more weight. Transferred to [facility] last night due to persistent Hypertension. Current outpatient diabetes regimen: Diabetes Provider: Lisa Yan APRN, [facility] Endocrinology; Last visit: 06/11/2023 Medications: Lantus 8 units BID (last dose 25 AM) Metformin XR 500mg - 1000mg BID Farxiga 5mg QD Humalog: Correction only 1 unit if over 160 Insulin details: pens Estimated TDD: 16u/day Monitoring is done using Freestyle Toshia 3 CGM BG trends at home: Most in target, rare over 160 (only 1 correction for 217 since surgery) Trouble with hypoglycemia? Recently. Most recent HA1c: Lab Results Component Value Date HA1C 7.5 (H) 07/12/2023 Typical diet: Following bariatric diet - many small meals throughout the day, water between. Hasn'tworked with practice support specialist since surgery. Diabetes Complications Status: Eyes: Denies Kidneys: Denies Feet: Denies Sensory: Denies Autonomic: Denies Cardiac: Denies Current Hospital Diabetes Care: Medications: Glargine held d/t hypoglycemia. Lispro Correction: Moderate 1:20 correction for BG >160 Monitoring: BG q 4 hrs Diet: NPO give meds Diet supplements: none Relevant Meds: none ROS: Denies concerns at time of visit. 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 Survivor benefits, SSDI, parents have passed - only source of income. What does a typical day look like? Medical appointments every day. Mental health therapy. Hobbies? Not really right now. Came to [place] from [place] to work at [employer] - took one year to find housing. Not working due diabetic retinopathy. Current Hospital Medications: losartan 50 mg Oral Daily metoproloL tartrate 25 mg Oral Q6H NICOLÁS polyethylene glycoL (MIRALAX) oral powder 17 g Oral Daily ARIPiprazole 20 mg Oral Daily furosemide 20 mg Oral Daily levothyroxine 200 mcg Oral QAM prazosin 10 mg Oral Nightly traZODone 300 mg Oral Nightly sodium chloride 0.9 % (flush) 5 mL Intravenous BID enoxaparin 40 mg Subcutaneous 2 times per day norethindrone 10 mg Oral TID gabapentin 300 mg Oral Daily And gabapentin 600 mg Oral Nightly insulin lispro 1-6 Units Subcutaneous Q4H NICOLÁS Infusions: PRN: labetaloL, hydrALAZINE, sodium chloride 0.9 % (flush), lidocaine, ondansetron OR ondansetron, acetaminophen, melatonin, glucose 40% oral geL OR dextrose OR glucagon, iohexoL Allergy: Allergies Allergen Reactions Fluoxetine Affected glucose level Mushroom Rash Social history: Social History Tobacco Use Smoking status: Former Smokeless tobacco: Never Vaping Use Vaping Use: Former Substances: Nicotine Substance Use Topics Alcohol use: Not Currently Drug use: Never Family history: Family History Problem Relation Age of Onset Uterine Cancer Neg Hx Ovarian Cancer Neg Hx Breast Cancer Neg Hx Vitals Last value Range last 24 hrs Temperature Temp: 37.1 ??C (98.8 ??F) Temp: [37 ??C (98.6 ??F)-37.8 ??C (100 ??F)] Heart Rate Heart Rate: 82 Heart Rate: [82-99] Blood Pressure BP: 160/90 BP: (97-241)/(50-130) Respiratory Rate Resp: 14 Resp: [14-25] SpO2 SpO2: 99 % SpO2: [96 %-99 %] Wt Readings from Last 3 Encounters: 07/13/23 (!) 176.5 kg (389 lb 1.8 oz) 06/25/23 (!) 176.2 kg (388 lb 6.4 oz) 06/03/23 (!) 187.4 kg (413 lb 3.2 oz) Physical Exam: Gen: NAD, talking in clear sentences. Sitting on edge of bed. HEENT: no LAD, oral mucus membranes moist no obvious inflammation SKIN: No open areas or redness to both feet Neuro: Moving all extremities. Grossly non-focal Labs: Recent Results (from the past 12 hour(s)) Basic Metabolic Panel (non-fasting) Result Value Glucose Lvl 95 BUN 7 (L) Creatinine 0.71 Sodium 138 Potassium 3.6 Chloride 102 CO2 26 Anion Gap 10 Calcium 8.9 Estimated GFR 117 Hemogram Result Value WBC 4.5 RBC 4.14 Hemoglobin 11.7 Hematocrit 35.5 (L) MCV 85.7 MCH 28.3 MCHC 33.0 Platelets 228 RDWSD 38.7 RDWCV 12.3 MPV 11.4 nRBC % Auto 0.0 nRBC Abs Auto 0.000 Differential, Automated Result Value Neutrophils % 67.7 Neutr Abs (ANC) 3.04 Lymphocytes % 16.2 Lymphocytes Abs 0.7 (L) Monocytes % 15.1 Monocyte Abs 0.7 Eosinophils % 0.4 Eosinophils Abs 0.0 Basophils % 0.4 Basophils Abs 0.0 Immature Gran % 0.20 Estefany Gran Abs 0.01 POCT Glucose Result Value POC Glucose 98 POCT Glucose Result Value POC Glucose 91 POCT Glucose Result Value POC Glucose 104 Lab Results Component Value Date BUN 7 (L) 07/13/2023 CREATININE 0.71 07/13/2023 GLUCOSE 95 07/13/2023 ESTGFR 117 07/13/2023 Lab Results Component Value Date HA1C 7.5 (H) 07/12/2023 No results found for: MICROALBUR Lab Results Component Value Date CHLPL 162 07/07/2022 Lab Results Component Value Date HDL 44 07/07/2022 Lab Results Component Value Date LDLCHOL 92 07/07/2022 Lab Results Component Value Date TRIG 132 07/07/2022 No results found for: CHOLHDL Recent Labs 07/13/23 1124 07/13/23 0738 07/13/23 0419 07/12/23 2315 07/12/23 2031 07/12/23 1954 07/12/23 1645 07/12/23 1620 07/12/23 1618 07/12/23 1232 07/12/23 1158 07/12/23 0838 POCGLU 104 91 98 88 137 63* 80 54* 45* 103 63* 105 C-peptide 06/05/2023 2.0 with glucose of 214; ASSESSMENT: Zenia Worley is a 33 y.o. years old female with PMH significant for DM2 (Last A1C of 7.5% 07/12/2023) who was admitted on 07/12/2023 for N/V w/concern for gastric fistula, HTN, and hypoglycemia. Diabetes moderately controlled and complicated by post-bariatric surgery and N/V. Currently variable blood glucose levels while hospitalized requiring adjustment of insulin regimen and DM medications. Zenia had bariatric surgery ~6 weeks ago, and weight has decreased by ~24lbs. She has been able totitrate back insulin to ~16u totally daily, but upon issues with N/V this week, she developed hypoglycemia, which resolved 48hrs after last dose. She is now eating and drinking, and BG have stabilized, so far with any need for corrective insulin. For now, recommend no glargine - she has a normal C-peptide and likely can produce enough insulin. We can consider restarting glargine if fasting BG consistently over 180, or lispro for meals if over 180 after eating. For now, continue correction only insulin and monitor Q4 today, and likely QID tomorrow. As for home medications, on discharge she canrestart Farxiga and Metformin, however GLP-1 typically are contraindicated after bariatric surgery due to risk for gastroparesis and dehydration/N/V, and will recommend she not start Trulicity until approved by surgery. Recommendations given to the team. PLAN: Insulin glargine: None for now - consider restarting 5 units if fasting over 180 X2 days. Lispro Correction: Custom Moderate 1:20 correction for BG >160 Q4 Lispro Meal associated: none currently - may consider if BG over 180 after meals. 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 Home: Metformin XR 500 - 2 tablets BID with meals. Farxiga 5mg QD Lantus - likely NOT continue at discharge Humalog correction only - likely continue at less aggressive correction Recommend against GLP-1 restart until cleared by surgery. Monitoring - continue BG tid ac & hs - restart Freestyle Toshia Thank you for allowing us to provide care for your patient 80 minutes were spent over the course of the day with this patient encounter including time spent in chart review and relevant lab result review, assessment of and counseling with the patient on diabetes and treatment plan, reviewing all glucose and insulin data, and coordination with the consulting service. Beba Lin APRN, DNP, -[facility] Inpatient Diabetes Management Team Team pager #[phone] * Plan of Care - Toma Rockwell RN - 07/13/2023 3:27 AM EST OUTCOME EVALUATION NOTE: OUTCOME SUMMARY: ~2315 [facility] an upgrade from the floor due to hypertension. Pt arrived on Nicard gtt- titrated per orders. Zenia is A+Ox4, following commands. NSR/ST on tele-see scanned doc. Pt denies chest pain/ SOB. Pt on CPAP while sleeping. Pt ambulated to the BR- cloudy/yellow urine. LR running @ 100ml/hr. Pt was able to rest/ sleep in between care. ~0600- Pt ambulated to BR. Pt reports being hot and dizzy. BP 90s/60s. PLAN MOVING FORWARD: BP control Advance diet? Increase mobility INDIVIDUALIZED FALL PREVENTION INTERVENTIONS: Patient-specific fall risk factors per assessment: [current deficits]: on going Assistance [level of assistance required for transfers and ambulation]: on going Supervision [direct monitoring required during toileting and ADLs]: see assessment Surveillance [continuous indirect monitoring]: see assessment Patient-specific fall prevention interventions for sensory deficits provided, if applicable: call light within reach, bed alarm set, non skid socks while out of bed, purposeful hourly rounding * Consult Note - Queenie Wilson RN - 07/12/2023 11:18 PM EST Life Safety Program Consult Note Called to see Zenia Worley who is a 33 y.o.female by lpn instructor for hypertension. Patient admitted earlier today for gastric fistula. Recent vernell-en-Y procedure on 06/03/2023. Admission Date/Time 07/12/2023 1:41 AM Hospital Day 0 days Problem List: Active Hospital Problems Diagnosis Gastric anastomotic stricture Resolved Hospital Problems No resolved problems to display. 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 Mixed hyperlipidemia RICHMOND (obstructive sleep apnea) Other specified hypothyroidism PTSD (post-traumatic stress disorder) Schizoaffective disorder Type 2 diabetes mellitus with hyperglycemia, with long-term current use of insulin Dissociation Allergies Allergen Reactions Fluoxetine Affected glucose level Mushroom Rash Objective: Vital Signs: Last value Range last 12 hrs Temperature Temp: 37 ??C (98.6 ??F) Temp: [37 ??C (98.6 ??F)] Heart Rate Heart Rate: 93 Heart Rate: -- Blood Pressure BP: 182/81 BP: (172-241)/(74-130) Respiratory Rate Resp: 20 Resp: [20-21] SpO2 SpO2: 96 % SpO2: [96 %-99 %] Intake/Output Summary (Last 24 hours) at 07/12/2023 2255 Last data filed at 07/12/2023 1807 Gross per 24 hour Intake 1781 ml Output 1625 ml Net 156 ml Current Medications: Infusions: Scheduled medications: ARIPiprazole 20 mg Oral Daily furosemide 20 mg Oral Daily levothyroxine 200 mcg Oral QAM prazosin 10 mg Oral Nightly traZODone 300 mg Oral Nightly sodium chloride 0.9 % (flush) 5 mL Intravenous BID enoxaparin 40 mg Subcutaneous 2 times per day losartan 25 mg Oral Daily metoprolol succinate XL 100 mg Oral Daily norethindrone 10 mg Oral TID gabapentin 300 mg Oral Daily And gabapentin 600 mg Oral Nightly insulin lispro 1-6 Units Subcutaneous Q4H NICOLÁS niCARdipine PRN Medications: sodium chloride 0.9 % (flush), lidocaine, ondansetron OR ondansetron, acetaminophen, melatonin,glucose 40% oral geL OR dextrose OR glucagon, iohexoL, labetaloL, hydrALAZINE, niCARdipine Laboratory: Lab Results Component Value Date WBC 5.2 07/12/2023 Hemoglobin 12.1 07/12/2023 Hematocrit 38.2 07/12/2023 Platelets 231 07/12/2023 Potassium 3.3 (L) 07/12/2023 Calcium 8.8 07/12/2023 CO2 28 07/12/2023 BUN 9 07/12/2023 Creatinine 0.70 07/12/2023 Studies: Labs: none obtained Radiology: none obtained EKG: none obtained Assessment: Notified around 21:17 that patient was hypertensive >200. Patient hypertensive since admission requiring multiple prn's. Day shift LS evaluated patient earlier today, see their note. Patient reports she takes 40 mg of lasix daily, only receiving 20 mg daily since admission. PRN labetalol given with minimal effect. Plan for prn hydralazine and then to re-assess patient in one hour. 22:42 notified patient still hypertensive to the 180's systolic with a goal of <170. Nicard gtt started at 5mg/hr. All other vitals stable. Patient on home CPAP settings. Alert and oriented x4. Denies pain. Transferred to [facility] room 82 on 5 mg of nicardipine. No issues en route. BP upon arrival to [facility] 141/74 (90) on 5 mg of nicard. Plan: Nicard, monitoring Transfer to Intermediate Care: [facility] Please page #[phone] with any questions, thank you. Queenie Wilson RN 10:55 PM July 12, 2023 * Consult Note - Gio Jimenez MD - 07/12/2023 10:59 PM EST Images from the original note were not included. Internal Medicine Initial Consult Note Admit date: Hospital day: Service: Primary Attending Consult Attending 07/12/2023 0 Minimally Invasive Surgery MD Cristofer Boykin Reason for Consult: Hypertensin HPI: Pt is 33 y/o with hx of HFpEF, HTN, obesity, RICHMOND, DM, schizophrenia, RNY Gastric bypass in May who prepreseented to [facility] for 2 days of nausea and vomiting. She iniitally went to [facility] 07/10, left after CT scan was reassuring and represented there 07/11 when symptoms continued On further exam of CT scan was found to have a stricture at anastamosis site which was presumed cause of nausea vomiting and transferred from [facility]. At that time she was still passing gas. In the interval she has been hypertensive from 180s-220s systolic with peak reading of 241/130 at 1:45 pm. She has gotten labetalol 10, 20, 40 mg and 5mg iv hydralazine as well as 1.25mg of iv enalaprilat and restarted on home metoprolol 100 and losartan 25.. At recent visit in last two months Bps have been systolic 150s-180s. On interview she reports she has not noticed any particular changes and she was feeling about the same and only learned of her high blood pressure when told. She denies chest pain or dyspnea, abdominal pain, she says she has had some coming and going headaches but no vision changes. She endorses some recent life stressors she feels may be contributing. She has been checking Bps at home recently which have been 150s to 170s and she uses a CPAP for RICHMOND. She denies any current or recent hallucinations and says she has been well controlled on current mediations. Patient is unsure if she has heartfailure but reports she has a small business representative in [place] who follow alma for one of my left valves. Denies alchol/tobacco use for past 3 years and no marijuana use for past 2 years, no other drug use. Allergies: Allergies Allergen Reactions Fluoxetine Affected glucose level Mushroom Rash Past Surgical History Past Surgical History: Procedure Laterality Date CHG CYTOPATH,CERV/VAG,AUTO THIN LAYER,INTERP N/A 03/03/2022 PAP SMEAR UNDER ANESTHESIA performed by Sabrina Swain MD at [facility] MAIN OR IR ARTERIAL INTERVENTION 10/13/2022 IR Arterial Intervention 10/13/2022 Pradip Avila MD [facility] INTERVENTIONL RAD PRG ECHOGRAPHY TRANSVAGINAL NON-OB Midline 03/03/2022 ULTRASOUND, TRANSVAGINAL (WRVU 0.69) performed by Sabrina Swain MD at [facility] MAIN OR PRO HYSTEROSCOPY, W/ENDO BX N/A 03/03/2022 HYSTEROSCOPY, SURG W/ENDOMETRIAL SAMPLING, POLYPECTOMY (WRVU 4.74) performed by Sabrina Swain MD [facility] MAIN OR PRO INSERT INTRAUTERINE DEVICE N/A 03/03/2022 INSERTION OF IUD, VAGINAL APPROACH (WRVU 1.01) performed by Sabrina Swain MD at [facility] MAIN OR PRO LAP GASTRIC BYPASS/VERNELL-EN-Y N/A 06/03/2023 @LAPAROSCOPIC GASTROPLASTY W/ VERNELL-EN-Y CONSTRUCTION (WRVU 29.4) performed by Gee Contreras MD at [facility] MAIN OR PRO PELVIC EXAMINATION W ANESTH N/A 03/03/2022 PELVIC EXAM UNDER ANESTHESIA (WRVU 1.75) performed by aSbrina Swain MD at [facility] MAIN OR Family History: Family History Problem Relation Age of Onset Uterine Cancer Neg Hx Ovarian Cancer Neg Hx Breast Cancer Neg Hx Social History: Former smoker, former alcohol use, former marijuana use. No recent travel, no animal exposures. Vitals: Last value Range last 24 hrs Temperature Temp: 37 ??C (98.6 ??F) Temp: [36.6 ??C (97.9 ??F)-37 ??C (98.6 ??F)] Heart Rate Heart Rate: 93 Heart Rate: [93] Blood Pressure BP: 182/81 BP: (169-241)/(74-130) Respiratory Rate Resp: 20 Resp: [13-25] SpO2 SpO2: 96 % SpO2: [95 %-99 %] Examination: During exam SBP 140, requested to hold nicardipine General: Pleasant, alert, appropriate, in NAD resting in bed. HEENT: EOMI, nonicteric. Oropharynx clear w/o erythema, plaques or exudates or other lesions. No thrush; MMMs Neck: No LAD. JVD ~ Cardiac: Normal S1 and S2, Regular rate and rhythm; No murmurs noted Respiratory: Nonlabored. Clear to auscultation bilaterally; No wheezes or crackles Abd: + BS; soft, non-tender, non-distended, no masses, no HSM Ext: No edema, cyanosis, clubbing, Radial and distal pedal pulses 2+ bilaterally Neuro: II-XII grossly intact. Alert and orientated, no-focal deficits, sensation intact to crude touch, motor strength 5/5 throughout Skin: No rashs, no lesions, no petechiae Laboratory: Recent Labs 07/12/23 0558 WBC 5.2 HGB 12.1 HCT 38.2 PLATELET 231 Recent Labs 07/12/23 0558 NA 144 K 3.3* CL 108* CO2 28 BUN 9 CREATININE 0.70 Diagnostic Studies: Abdomen Xray 1. Oral contrast retained within the colon precludes proceeding with planned fluoroscopic upper GI exam. No evidence of high-grade small bowel obstruction. 2. Fluoroscopic upper GI series can be performed if so clinically desired following clearance of the residual oral contrast from the colon. 3. Rich Duque DO, discussed the results with Kati CONTRERAS on 07/12/2023 1:42 PM and verified that the results were understood. TTE 10/14/22 The left ventricle is normal in size with mildly increased wall thickness. Systolic function is hyperdynamic and ejection fraction is visually estimated to be 75%. There are no regional wall motion abnormalities. - The right ventricle is probably normal in size and mildly reduced in function. The pulmonary artery systolic pressure could not be estimated. - There are no hemodynamically significant valvular abnormalities. - There is no prior study for comparison. Assessment: 33 y/o with hx of HFpEF, HTN, obesity, RICHMOND, DM, schizophrenia, RNY Gastric bypass in May who prepreseented to [facility] for 2 days of nausea and vomiting. She iniitally went to [facility] 07/10, left after CT scan was reassuring and represented there 07/11 when symptoms continued On further exam of CT scan was found to have a stricture at anastamosis site which was presumed cause of nausea vomiting and transferred from [facility]. She appears to be chronically hypertensive with slight increase not clearly symptomatic. Reasonableto target <180 this evening with slow transition to orals as it seems patient is chronically hypertensive at home. Would still not aim for tight blood pressure control here or on discharge given there may be situationally exacerbating contributors like fluids, stress, nausea/emesis. Recommendations: Nicardipine gtt with goal BP reduction ~10% in first hour and ~20% in first day. May start with titration goal of 180-200 for first hour and then increase to 160-180. -Additional losartan 25mg now and increase to 50mg QD with AM dose -could further up titrate to 50 BID if appropriate again remembering to aim for slow reduction and subsequently consolidate into daily dose -nightly cpap -Convert metoprolol to tartrate 25mg q6 and would consider transitioning metoprolol to coreg next -If giving fluids mitigate with IV lasix for ~net even as patient may be prone to retain fluids. x Consult service will continue to follow patient. Recommendations are above, please page if further consultation required. Gio Jimenez MD Internal Medicine, PGY3 PETER Pager # [phone] Associated attestation - Cristofer Hector DO - 07/13/2023 1:10 PM EST Hospital Medicine Attending Attestation: Please see the progress from 07/13/2023 for my discussion. Cristofer Hector DO Pager [phone] 07/13/2023 1:10 PM * Consult Note - Mariposa Cintron RN - 07/12/2023 5:22 PM EST Life Safety Program Consult Note Called to see Zenia Worley who is a 33 y.o.female by RN for hypertension.. Zenia Worley is a 33 y.o. female with a past medical history of T2DM, PTSD, schizoaffective disorder, morbid obesity status post Vernell-en-Y procedure 06/03/2023 who presents to [facility] on 07/12/2023 as a direct transfer from [facility] for gastric fistula. Admission Date/Time 07/12/2023 1:41 AM Hospital Day 0 days Problem List: Active Hospital Problems Diagnosis Gastric anastomotic stricture Resolved Hospital Problems No resolved problems to display. 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 Mixed hyperlipidemia [place] (obstructive sleep apnea) Other specified hypothyroidism PTSD (post-traumatic stress disorder) Schizoaffective disorder Type 2 diabetes mellitus with hyperglycemia, with long-term current use of insulin Dissociation Allergies Allergen Reactions Fluoxetine Affected glucose level Mushroom Rash Objective: Vital Signs: Last value Range last 8 hrs Temperature Temp: 37 ??C (98.6 ??F) Temp: [37 ??C (98.6 ??F)] Heart Rate Heart Rate: 93 Heart Rate: -- Blood Pressure BP: (!) 200/105 BP: (169-241)/(95-130) Respiratory Rate Resp: 20 Resp: [20] SpO2 SpO2: 97 % SpO2: [95 %-99 %] Intake/Output Summary (Last 24 hours) at 07/12/2023 1722 Last data filed at 07/12/2023 1600 Gross per 24 hour Intake 1472 ml Output 1325 ml Net 147 ml Current Medications: Infusions: lactated Ringers Stopped (07/12/23 1246) Scheduled medications: ARIPiprazole 20 mg Oral Daily furosemide 20 mg Oral Daily levothyroxine 200 mcg Oral QAM prazosin 10 mg Oral Nightly traZODone 300 mg Oral Nightly sodium chloride 0.9 % (flush) 5 mL Intravenous BID insulin glargine (Lantus;Semglee) (100 unit/mL) subcutaneous injection 8 Units Subcutaneous Nightly enoxaparin 40 mg Subcutaneous 2 times per day losartan 25 mg Oral Daily metoprolol succinate XL 100 mg Oral Daily norethindrone 10 mg Oral TID gabapentin 300 mg Oral Daily And gabapentin 600 mg Oral Nightly insulin lispro 1-6 Units Subcutaneous Q4H NICOLÁS PRN Medications: sodium chloride 0.9 % (flush), lidocaine, ondansetron OR ondansetron, acetaminophen, melatonin,glucose 40% oral geL OR dextrose OR glucagon, hydrALAZINE, iohexoL, labetaloL Laboratory: Lab Results Component Value Date WBC 5.2 07/12/2023 Hemoglobin 12.1 07/12/2023 Hematocrit 38.2 07/12/2023 Platelets 231 07/12/2023 Potassium 3.3 (L) 07/12/2023 Calcium 8.8 07/12/2023 CO2 28 07/12/2023 BUN 9 07/12/2023 Creatinine 0.70 07/12/2023 Assessment: Called to bedside to assess Mrs. Worley for persistent hypertension. SBP above 200 after 3 doses oflabetolol (10mg, 20mg and 40mg,) x1 dose of 5mg hydralazine, and 1.25 of iv enalaprilat. Mrs. Worley does c/o intermittent headaches that resolve spontaneously. Pupils 3mm and reactive. A+Ox4. C/o dizziness when ambulating to restroom. Of note, Mrs. Worley has been 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 with low's in the 40's requiring d10 bolus' and po intake. MD aware and plan to encourage po intake as much as possible overnight. ECG complete. Plan: Anticipated upgrade in clinical status if sbp is uncontrolled with dose titration of beta blockers,sofia inhibitors, and vasodilators. Nicard gtt? Encourage po glucose intake. Thank you for allowing me to participate in Mrs. Worley's care, please don't hesitate to page [phone] with further concerns. Mariposa Cintron, RN, BSN, CCRN 5:22 PM July 12, 2023 * Plan of Care - Prabha Fish RN - 07/12/2023 2:04 AM ESTSummary: Admission OUTCOME EVALUATION NOTE: OUTCOME SUMMARY: Patient AOx4, VSS on shift. Admission data base has been completed. Patient voiding in restroom with no need for assistance, patients last bowel movement 07/11/2023. PLAN MOVING FORWARD: Control nausea and vomiting INDIVIDUALIZED FALL PREVENTION INTERVENTIONS: Patient-specific fall risk factors per assessment: [current deficits]: Nausea and vomiting and hospital environment Assistance [level of assistance required for transfers and ambulation]: Independent Supervision [direct monitoring required during toileting and ADLs]: Independent Surveillance [continuous indirect monitoring]: Masimo, hourly visits, and room near nurses station Problem: Adult Inpatient Plan of Care Goal: Plan of Care Review Outcome: Ongoing (Interventions Implemented as Appropriate) Goal: Patient-Specific Goal (Individualized) Outcome: Ongoing (Interventions Implemented as Appropriate) Goal: Absence of Hospital-Acquired Illness or Injury Outcome: Ongoing (Interventions Implemented as Appropriate) Goal: Optimal Comfort and Wellbeing Outcome: Ongoing (Interventions Implemented as Appropriate) Goal: Readiness for Transition of Care Outcome: Ongoing (Interventions Implemented as Appropriate) Problem: Pain Acute Goal: Acceptable Pain Control and Functional Ability Outcome: Ongoing (Interventions Implemented as Appropriate) Problem: Asthma Comorbidity Goal: Maintenance of Asthma Control Outcome: Ongoing (Interventions Implemented as Appropriate) Problem: Behavioral Health Comorbidity Goal: Maintenance of Behavioral Health Symptom Control Outcome: Ongoing (Interventions Implemented as Appropriate) Problem: COPD Comorbidity Goal: Maintenance of COPD Symptom Control Outcome: Ongoing (Interventions Implemented as Appropriate) Problem: Diabetes Comorbidity Goal: Blood Glucose Level Within Targeted Range Outcome: Ongoing (Interventions Implemented as Appropriate) Problem: Heart Failure Comorbidity Goal: Maintenance of Heart Failure Symptom Control Outcome: Ongoing (Interventions Implemented as Appropriate) Problem: Hypertension Comorbidity Goal: Blood Pressure in Desired Range Outcome: Ongoing (Interventions Implemented as Appropriate) Problem: Obstructive Sleep Apnea Risk or Actual (Comorbidity Management) Goal: Unobstructed Breathing During Sleep Outcome: Ongoing (Interventions Implemented as Appropriate) Problem: Pain Chronic (Persistent) (Comorbidity Management) Goal: Acceptable Pain Control and Functional Ability Outcome: Ongoing (Interventions Implemented as Appropriate) Problem: Seizure Disorder Comorbidity Goal: Maintenance of Seizure Control Outcome: Ongoing (Interventions Implemented as Appropriate) Problem: Nausea and Vomiting Goal: Fluid and Electrolyte Balance Outcome: Ongoing (Interventions Implemented as Appropriate) documented in this encounter Plan of Treatment Upcoming Encounters Date Type Department Care Team (Late st Contact Info) Description 12/30/2023 2:45 PM EDT TH Visit (TeleHealth) [place] [address] Michael Morgan, [facility] [place] [address] documented as of this encounter Goals Goal Patient Goal Type Associated Problems Recent Progress Patient-Stated? Author Other (Enter personal goal) Lifestyle On track( 023 1:14 PM EDT) Riddhi Buchanan RD Note: -Add peanut butter to oatmeal -Continue to add beans to meals as a source of protein and fiber -If can, buy fresh vegetables and fruit from [employer]-sent message with resources -Choose whole grain [...] child's sippie cup Self-awareness, body cues Lifestyle Davidson Bill Note: Practice STOP and Urge Surfing. [facility] [employer] will send hand-outs. Movement Lifestyle On track( 023 1:14 PM EDT) Riddhi Buchanan RD Note: Continue to walk stairs and walks when can. Will continue using stairs as it's colder. Look into finding weights free online or at [email or web address] stores. Could use water-filled milk jugs as weights-a full gallon jug would be 8 lbs. Will look into nearby rec center 04/16/22 NATHALIA documented as of this encounter Procedures Procedure Name Priority Date/Time Associated Diagnosis Comments POCT GLUCOSE Routine 07/14/2023 11:36 AM EST POCT GLUCOSE Routine 07/14/2023 7:48 AM EST POCT GLUCOSE Routine 07/14/2023 3:54 AM EST HEMOGRAM Routine 07/14/2023 12:31 AM EST DIFFERENTIAL, AUTOMATED Routine 07/14/2023 12:31 AM EST HC CBC,PLT & AUTO DIFF Routine 07/14/2023 12:31 AM EST BASIC METABOLIC PANEL (NON-FASTING) Routine 07/14/2023 12:31 AM EST POCT GLUCOSE Routine 07/14/2023 12:25 AM EST POCT GLUCOSE Routine 07/13/2023 7:19 PM EST POCT GLUCOSE Routine 07/13/2023 3:17 PM EST POCT GLUCOSE Routine 07/13/2023 11:24 AM EST POCT GLUCOSE Routine 07/13/2023 7:38 AM EST POCT GLUCOSE Routine 07/13/2023 4:19 AM EST HEMOGRAM Routine 07/13/2023 2:28 AM EST DIFFERENTIAL, AUTOMATED Routine 07/13/2023 2:28 AM EST HC CBC,PLT & AUTO DIFF Routine 07/13/2023 2:28 AM EST BASIC METABOLIC PANEL (NON-FASTING) Routine 07/13/2023 2:28 AM EST POCT GLUCOSE Routine 07/12/2023 11:15 PM EST POCT GLUCOSE Routine 07/12/2023 8:31 PM EST POCT GLUCOSE Routine 07/12/2023 7:54 PM EST EKG 12-LEAD STAT 07/12/2023 5:31 PM EST Hypertensive crisis POCT GLUCOSE Routine 07/12/2023 4:45 PM EST POCT GLUCOSE Routine 07/12/2023 4:20 PM EST POCT GLUCOSE Routine 07/12/2023 4:18 PM EST XR ABDOMEN 1 VIEW Routine 07/12/2023 1:3 3 PM EST POCT GLUCOSE Routine 07/12/2023 12:32 PM EST POCT GLUCOSE Routine 07/12/2023 11:58 AM EST POCT GLUCOSE Routine 07/12/2023 8:38 AM EST POCT GLUCOSE Routine 07/12/2023 7:55 AM EST HEMOGRAM Routine 07/12/2023 5:58 AM EST DIFFERENTIAL, AUTOMATED Routine 07/12/2023 5:58 AM EST HC VENIPUNCTURE Routine 07/12/2023 5:58 AM EST HC PHOSPHORUS, SERUM Routine 07/12/2023 5:58 AM EST HC MAGNESIUM, SERUM Routine 07/12/2023 5 :58 AM EST HC HEMOGLOBIN A1C Routine 07/12/2023 5:5 8 AM EST BASIC METABOLIC PANEL (NON-FASTING) Routine 07/12/2023 5:58 AM EST POCT GLUCOSE Routine 07/12/2023 5:48 AM EST POCT GLUCOSE Routine 07/12/2023 4:06 AM EST XR ABDOMEN 1 VIEW Routine 07/12/2023 4:0 5 AM EST documented in this encounter Results * POCT Glucose (07/14/2023 11:36 AM EST) POC Glucose 98 65 - 199 mg/dL [facility] Comment: Supplemental ranges: <140 mg/dL before meals <180 mg/dL all other times of the day Blood 07/14/2023 11:3 6 AM EST 07/14/2023 11:36 AM EST Gee Contreras MD POINT OF CARE TEST O RDERABLES [facility] [place] [address] * POCT Glucose (07/14/2023 7:48 AM EST) POC Glucose 86 65 - 199 mg/dL [facility] Comment: Supplemental ranges: <140 mg/dL before meals <180 mg/dL all other times of the day Blood 07/14/2023 7:48 AM EST 07/14/2023 7:48 AM EST Gee Contreras MD POINT OF CARE TEST O RDBAN Performing Organization Address City/[facility]/ZIP Co de Phone Number [facility] [place] [address] * POCT Glucose (07/14/2023 3:54 AM EST) POC Glucose 87 65 - 199 mg/dL [facility] Comment: Supplemental ranges: <140 mg/dL before meals <180 mg/dL all other times of the day Blood 07/14/2023 3:54 AM EST 07/14/2023 3:54 AM EST Gee Contreras MD POINT OF CARE TEST O JET Performing Organization Address City/[facility] Co de Phone Number [facility] [place] [address] * Differential, Automated (07/14/2023 12:31 AM EST) Pathologist [facility] [place] Neutrophils % 46.9 % [facility] Neutr Abs (ANC) 1.88 1.70 - 6.10 x10(3)/[facility] Lymphocytes % 32.3 % [facility] Lymphocytes Abs 1.3 0.9 - 3.2 x10(3)/[facility] Monocytes % 19.0 % [facility] Monocyte Abs 0.8 0.3 - 0.9 x10(3)/[facility] Eosinophils % 1.0 % [facility] Eosinophils Abs 0.0 0.0 - 0.4 x10(3)/[facility] Basophils % 0.5 % [facility] Basophils Abs 0.0 0.0 - 0.1 x10(3)/[facility] Immature Gran % 0.30 % [facility] Comment: Immature granulocytes(IG's)percentage and absolute count will include metamyelocytes, myelocytes, and promyelocytes. Blood smears from CBCs yielding IG's will be scanned manually for concordance. If this scan disagrees with the automated IG or if promyelocytes are noted, a manual differential will be performed. Estefany Gran Abs 0.01 0.00 - 0.04 x10(3)/[facility] Blood 07/14/2023 12:3 1 AM EST 07/14/2023 12:41 AM EST Narrative Resulting Agency Comment Spec In Lab Suresh Terrell MD HEMATOLOGY ORDERABLE S [facility] [place] [address] * (ABNORMAL) Hemogram (07/14/2023 12:31 AM EST) WBC 4.0 4.0 - 9.5 x10(3)/[facility] RBC 4.02 4.00 - 5.21 x10(6)/[facility] Hemoglobin 11.5(L) 11.7 - 15.5 g/dL [facility] Hematocrit 34.8(L) 35.7 - 45.8 % [facility] MCV 86.6 82.6 - 94.4 fL [facility] MCH 28.6 27.1 - 32.0 pg [facility] MCHC 33.0 31.7 - 35.0 g/dL [facility] Platelets 217 145 - 357 x10(3)/[facility] RDWSD 39.4 37.0 - 46.0 [facility] RDWCV 12.4 11.5 - 14.1 % [facility] MPV 11.2 7.6 - 12.9 [facility] nRBC % Auto 0.0 % [facility] nRBC Abs Auto 0.000 0.000 - 0.000 x10(3)/[facility] Blood 07/14/2023 12:3 1 AM EST 07/14/2023 12:41 AM EST Narrative Resulting Agency Comment Spec In Lab Suresh Terrell MD HEMATOLOGY ORDERABLE S [facility] [place] [address] * Basic Metabolic Panel (non-fasting) (07/14/2023 12:31 AM EST) Glucose Lvl 100 65 - 199 mg/dL [facility] Comment:Diabetes: >=200 mg/d L plus symptoms BUN 9 8 - 18 mg/dL [facility] Creatinine 0.73 0.70 - 1.20 mg/dL [facility] Sodium 139 135 - 145 mmol/L [facility] Potassium 3.7 3.5 - 5.0 mmol/L [facility] Comment: Please note: ??Patients with WBC >100,000 may have falsely elevated Potassium levels. ??For accurate Potassium quantification in these patients send serum separator tube (gold top) for subsequent determinations. ??Contact the Clinical Chemistry Laboratory if there are any questions. Chloride 104 98 - 107 mmol/L [facility] CO2 26 22 - 31 mmol/L [facility] Anion Gap 9 5 - 15 mmol/L [facility] Calcium 8.9 8.5 - 10.5 mg/dL [facility] Estimated GFR 113 >=60 mL/min/1. 73 m?? [facility] Comment: This patient's estimated GFR was calculated using the 2020 CKD-EPI equation. The estimated GFR can vary from the measured GFR by up to 30% in the absence of rapidly changing kidney function. Assessment of the estimated GFR is not appropriate when creatinine concentrations are rapidly changing. For clinical situations in which a more precise estimate of GFR is necessary, consider alternative methods of GFR estimation such as a 24-hour urine creatinine clearance. Assignment of CKD stage 1-5 for patients with an eGFR near the transition point between stages may be based on clinical assessment of muscle mass and symptoms in addition to eGFR. Blood 07/14/2023 12:3 1 AM EST 07/14/2023 12:41 AM EST Narrative Resulting Agency Comment Spec In Lab Gee Contreras MD CHEMISTRY ORDERABLES Performing Organization Address [facility] Co de Phone Number [facility] [place] [address] * POCT Glucose (07/14/2023 12:25 AM EST) POC Glucose 92 65 - 199 mg/dL [facility] Comment: Supplemental ranges: <140 mg/dL before meals <180 mg/dL all other times of the day Blood 07/14/2023 12:2 5 AM EST 07/14/2023 12:25 AM EST Gee Contreras MD POINT OF CARE TEST O RDERAEDWARD Performing Organization Address [facility] Co de Phone Number [facility] [place] [address] * POCT Glucose (07/13/2023 7:19 PM EST) POC Glucose 98 65 - 199 mg/dL [facility] Comment: Supplemental ranges: <140 mg/dL before meals <180 mg/dL all other times of the day Blood 07/13/2023 7:19 PM EST 07/13/2023 7:19 PM EST Gee Contreras MD POINT OF CARE TEST O RDBAN Performing Organization Address [facility] Co de Phone Number [facility] [place] [address] * POCT Glucose (07/13/2023 3:17 PM EST) POC Glucose 95 65 - 199 mg/dL [facility] Comment: Supplemental ranges: <140 mg/dL before meals <180 mg/dL all other times of the day Blood 07/13/2023 3:17 PM EST 07/13/2023 3:17 PM EST Gee Contreras MD POINT OF CARE TEST O JET Performing Organization Address [facility] Co de Phone Number [facility] [place] [address] * POCT Glucose (07/13/2023 11:24 AM EST) POC Glucose 104 65 - 199 mg/dL [facility] Comment: Supplemental ranges: <140 mg/dL before meals <180 mg/dL all other times of the day Blood 07/13/2023 11:2 4 AM EST 07/13/2023 11:24 AM EST Gee Contreras MD POINT OF CARE TEST Jeanna CHAUDHARY Performing Organization Address [facility] de Phone Number [facility] [place] [address] * POCT Glucose (07/13/2023 7:38 AM EST) POC Glucose 91 65 - 199 mg/dL [facility] Comment: Supplemental ranges: <140 mg/dL before meals <180 mg/dL all other times of the day Blood 07/13/2023 7:38 AM EST 07/13/2023 7:38 AM EST Gee Contreras MD POINT OF CARE TEST Jeanna CHAUDHARY Performing Organization Address [facility] Co de Phone Number [facility] [place] [address] * POCT Glucose (07/13/2023 4:19 AM EST) POC Glucose 98 65 - 199 mg/dL [facility] Comment: Supplemental ranges: <140 mg/dL before meals <180 mg/dL all other times of the day Blood 07/13/2023 4:19 AM EST 07/13/2023 4:19 AM EST Gee Contreras MD POINT OF CARE TEST O RDERABLES Performing Organization Address City/[facility]/[place] [address] * (ABNORMAL) Differential, Automated (07/13/2023 2:28 AM EST) Neutrophils % 67.7 % [facility] Neutr Abs (ANC) 3.04 1.70 - 6.10 x10(3)/ L [facility] Lymphocytes % 16.2 % [facility] Lymphocytes Abs 0.7(L) 0.9 - 3.2 x10(3)/[facility] Monocytes % 15.1 % [facility] Monocyte Abs 0.7 0.3 - 0.9 x10(3)/[facility] Eosinophils % 0.4 % [facility] Eosinophils Abs 0.0 0.0 - 0.4 x10(3)/[facility] Basophils % 0.4 % [facility] Basophils Abs 0.0 0.0 - 0.1 x10(3)/[facility] Immature Gran % 0.20 % [facility] Comment: Immature granulocytes(IG's)percentage and absolute count will include metamyelocytes, myelocytes, and promyelocytes. Blood smears from CBCs yielding IG's will be scanned manually for concordance. If this scan disagrees with the automated IG or if promyelocytes are noted, a manual differential will be performed. Estefany Gran Abs 0.01 0.00 - 0.04 x10(3)/[facility] Blood 07/13/2023 2:28 AM EST 07/13/2023 2:32 AM EST Narrative Resulting Agency Comment Spec In Lab Suresh Terrell MD HEMATOLOGY ORDERABLE S Performing Organization Address City/[facility]/ZIP Co de Phone [place] [address] * (ABNORMAL) Hemogram (07/13/2023 2:28 AM EST) [facility] WBC 4.5 4.0 - 9.5 x10(3)/[facility] RBC 4.14 4.00 - 5.21 x10(6)/[facility] Hemoglobin 11.7 11.7 - 15.5 g/dL [facility] Hematocrit 35.5(L) 35.7 - 45.8 % [facility] MCV 85.7 82.6 - 94.4 fL [facility] MCH 28.3 27.1 - 32.0 pg [facility] MCHC 33.0 31.7 - 35.0 g/dL [facility] Platelets 228 145 - 357 x10(3)/[facility] RDWSD 38.7 37.0 - 46.0 [facility] RDWCV 12.3 11.5 - 14.1 % [facility] MPV 11.4 7.6 - 12.9 [facility] nRBC % Auto 0.0 % [facility] nRBC Abs Auto 0.000 0.000 - 0.000 x10(3)/[facility] Blood 07/13/2023 2:28 AM EST 07/13/2023 2:32 AM EST Narrative Resulting Agency Comment Spec In Lab Suresh Terrell MD HEMATOLOGY ORDERABLE S [facility] [place] [address] * (ABNORMAL) Basic Metabolic Panel (non-fasting) (07/13/2023 2:28 AM EST) [facility] Glucose Lvl 95 65 - 199 mg/dL [facility] Comment:Diabetes: >=200 mg/d L plus symptoms BUN 7(L) 8 - 18 mg/dL [facility] Creatinine 0.71 0.70 - 1.20 mg/dL [facility] Sodium 138 135 - 145 mmol/L [facility] Potassium 3.6 3.5 - 5.0 mmol/L [facility] Comment: Please note: ??Patients with WBC >100,000 may have falsely elevated Potassium levels. ??For accurate Potassium quantification in these patients send serum separator tube (gold top) for subsequent determinations. ??Contact the Clinical Chemistry Laboratory if there are any questions. Chloride 102 98 - 107 mmol/L [facility] CO2 26 22 - 31 mmol/L [facility] Anion Gap 10 5 - 15 mmol/L [facility] Calcium 8.9 8.5 - 10.5 mg/dL [facility] Estimated GFR 117 >=60 mL/min/1. 73 m?? [facility] Comment: This patient's estimated GFR was calculated using the 2020 CKD-EPI equation. The estimated GFR can vary from the measured GFR by up to 30% in the absence of rapidly changing kidney function. Assessment of the estimated GFR is not appropriate when creatinine concentrations are rapidly changing. For clinical situations in which a more precise estimate of GFR is necessary, consider alternative methods of GFR estimation such as a 24-hour urine creatinine clearance. Assignment of CKD stage 1-5 for patients with an eGFR near the transition point between stages may be based on clinical assessment of muscle mass and symptoms in addition to eGFR. Blood 07/13/2023 2:28 AM EST 07/13/2023 2:32 AM EST Narrative Resulting Agency Comment Spec In Lab Gee Contreras MD CHEMISTRY ORDERABLES [facility] [place] [place] [address] * POCT Glucose (07/12/2023 11:15 PM EST) POC Glucose 88 65 - 199 mg/dL [facility] Comment: Supplemental ranges: <140 mg/dL before meals <180 mg/dL all other times of the day Blood 07/12/2023 11:1 5 PM EST 07/12/2023 11:15 PM EST Gee Contreras MD POINT OF CARE TEST O JET Performing Organization Address [facility] de Phone Number [facility] [place] [address] * POCT Glucose (07/12/2023 8:31 PM EST) POC Glucose 137 65 - 199 mg/dL [facility] Comment: Supplemental ranges: <140 mg/dL before meals <180 mg/dL all other times of the day Blood 07/12/2023 8:31 PM EST 07/12/2023 8:31 PM EST Gee Contreras MD POINT OF CARE TEST O JET Performing Organization Address [facility] Phone Number [facility] [place] [place] [address] * (ABNORMAL) POCT Glucose (07/12/2023 7:54 PM EST) Pathologist [facility] [place] POC Glucose 63(L) 65 - 199 mg/dL [facility] Comment: Supplemental ranges: <140 mg/dL before meals <180 mg/dL all other times of the day Blood 07/12/2023 7:54 PM EST 07/12/2023 7:54 PM EST Gee Contreras MD POINT OF CARE TEST O JET Performing Organization Address [facility] de Phone Number [facility] [place] [place] [address] * EKG 12 Lead (07/12/2023 5:31 PM EST) Ventricular rate 74 BPM MUSE SYSTEM Atrial Rate 74 BPM MUSE SYSTEM P-R Interval 174 ms MUSE SYSTEM QRS Duration 80 ms MUSE SYSTEM Q-T Interval 380 ms MUSE SYSTEM QTC Calculated (Bezet) 421 ms MUSE SYSTEM Calculated P [place] 24 degrees MUSE SYSTEM Calculated R [place] 29 degrees MUSE SYSTEM Calculated T [place] 33 degrees MUSE SYSTEM INTERPRETATION Normal sinus rhythm Anterolateral infarct (cited on or before 13-OCT-2022) Abnormal ECG When compared with ECG of 13-OCT-2022 18:19, No significant change was found Confirmed by MD SINDY, ANDREW ([id number]) on 07/13/2023 1:55:52 PM MUSE SYSTEM 07/12/2023 5:31 PM EST 07/13/2023 1:55 PM EST Gee Contreras MD ECG ORDERABLES MUSE SYSTEM * POCT Glucose (07/12/2023 4:45 PM EST) POC Glucose 80 65 - 199 mg/dL [facility] Comment: Supplemental ranges: <140 mg/dL before meals <180 mg/dL all other times of the day Blood 07/12/2023 4:45 PM EST 07/12/2023 4:45 PM EST Gee Contreras MD POINT OF CARE TEST O RDERABLES Performing Organization Address [facility] Co de Phone Number [facility] [place] [place] [address] * (ABNORMAL) POCT Glucose (07/12/2023 4:20 PM EST) POC Glucose 54(Critica l) 65 - 199 mg/dL [facility] Comment: Supplemental ranges: <140 mg/dL before meals <180 mg/dL all other times of the day Blood 07/12/2023 4:20 PM EST 07/12/2023 4:20 PM EST Gee Contreras MD POINT OF CARE TEST O RDERABLES [facility] [place] [address] * (ABNORMAL) POCT Glucose (07/12/2023 4:18 PM EST) POC Glucose 45(Critica l) 65 - 199 mg/dL [facility] Comment: Supplemental ranges: <140 mg/dL before meals <180 mg/dL all other times of the day Blood 07/12/2023 4:18 PM EST 07/12/2023 4:18 PM EST Gee Contreras MD POINT OF CARE TEST O RDERABLES [facility] [place] [address] * XR Abdomen 1 view (Generic) (07/12/2023 1:33 PM EST) Anatomical Region Laterality Modality Abdomen N/A Radio Fluoroscop y Impressions 07/12/2023 5:31 PM EST 1. ??Oral contrast retained within the colon precludes proceeding with planned fluoroscopic upper GI exam. No evidence of high-grade small bowel obstruction. 2. ??Fluoroscopic upper GI series can be performed if so clinically desired following clearance of the residual oral contrast from the colon. 3. ??I Dale Duque DO, discussed the results with Kati CONTRERAS on 07/12/2023 1:42 PM and verified that the results were understood. I have personally reviewed the image(s) and the resident's interpretation and agree with the findings, Josselin Ramirez MD at 07/12/2023 5:31 PM Thank you for letting us participate in the care of this patient. ??If you are a health care provider and have any questions regarding this report, please contact the number below. ??For patients who have questions please contact the health career services manager that requested your imaging first. ? 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 COMPARISON: Portable AP supine radiographs of the abdomen from earlier same day, 07/12/2023 at [id number] hours 07/12/2023 CT chest, abdomen, and pelvis 07/10/2023 from [facility] FINDINGS: Surgical clips and anastomotic chain sutures again seen in the left midupper abdomen. Retained oral contrast is seen throughout in the colon from the ascending to the distal descending colon, no large bowel dilatation. No oral contrast is seen in small bowel loops. Moderate amount of stool is seen within the ascending colon. Occasional nondilated gas-filled loops of small bowel are seen in the mid abdomen, overall paucity of small bowel gas. No abnormal intra-abdominal calcifications. Imaged lung bases appear clear. No interval osseous finding. 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 COMPARISON: Portable AP supine radiographs of the abdomen from earlier same day,07/12/2023 at [id number] hours 07/12/2023 CT chest, abdomen, and pelvis 07/10/2023 from [facility] FINDINGS: Surgical clips and anastomotic chain sutures again seen in the leftmidupper abdomen. Retained oral contrast is seen throughout in the colon from the ascendingto the distal descending colon, no large bowel dilatation. No oral contrast isseen in small bowel loops. Moderate amount of stool is seen within the ascendingcolon. Occasional nondilated gas-filled loops of small bowel are seen in themid abdomen, overall paucity of small bowel gas. No abnormal intra-abdominal calcifications. Imaged lung bases appear clear. No interval osseousfinding. IMPRESSION 1. Oral contrast retained within the colon precludes proceeding withplanned fluoroscopic upper GI exam. No evidence of high-grade small bowelobstruction. 2. Fluoroscopic upper GI series can be performed if so clinicallydesired following clearance of the residual oral contrast from the colon. 3. Rich Duque DO, discussed the results with Kati Robertson 07/12/2023 1:42 PM and verified that the results were understood. I have personally reviewed the image(s) and the resident's interpretationand agree with the findings, Josselin Ramirez MD at 07/12/2023 5:31 PM Thank you for letting us participate in the care of this patient. If youare a health care provider and have any questions regarding this report,please contact the number below. For patients who have questions please contactthe health career services manager that requested your imaging first. Electronically signed by: Josselin Ramirez MD, [facility]([phone]), at 07/12/2023 5:31 PM Sebastian Ribeiro MD IMG DX ORDERABLES * POCT Glucose (07/12/2023 12:32 PM EST) Pathologist [facility] [place] POC Glucose 103 65 - 199 mg/dL [facility] Comment: Supplemental ranges: <140 mg/dL before meals <180 mg/dL all other times of the day Blood 07/12/2023 12:3 2 PM EST 07/12/2023 12:32 PM EST Gee Contreras MD POINT OF CARE TEST O RDERABLES [facility] [place] [address] * (ABNORMAL) POCT Glucose (07/12/2023 11:58 AM EST) POC Glucose 63(L) 65 - 199 mg/dL [facility] Comment: Supplemental ranges: <140 mg/dL before meals <180 mg/dL all other times of the day Blood 07/12/2023 11:5 8 AM EST 07/12/2023 11:58 AM EST Gee Contreras MD POINT OF CARE TEST O EJT Performing Organization Address [facility] Co de Phone Number [facility] [place] [address] * POCT Glucose (07/12/2023 8:38 AM EST) POC Glucose 105 65 - 199 mg/dL [facility] Comment: Supplemental ranges: <140 mg/dL before meals <180 mg/dL all other times of the day Blood 07/12/2023 8:38 AM EST 07/12/2023 8:38 AM EST Gee Contreras MD POINT OF CARE TEST O JET Performing Organization Address [facility] Phone Number [facility] [place] [address] * (ABNORMAL) POCT Glucose (07/12/2023 7:55 AM EST) POC Glucose 50(Critica l) 65 - 199 mg/dL [facility] Comment: Supplemental ranges: <140 mg/dL before meals <180 mg/dL all other times of the day Blood 07/12/2023 7:55 AM EST 07/12/2023 7:55 AM EST Gee Contreras MD POINT OF CARE TEST O JET Performing Organization Address [facility] de Phone Number [facility] [place] [address] * Differential, Automated (07/12/2023 5:58 AM EST) Neutrophils % 61.5 % [facility] Neutr Abs (ANC) 3.21 1.70 - 6.10 x10(3)/mcL [facility] Lymphocytes % 23.9 % [facility] Lymphocytes Abs 1.2 0.9 - 3.2 x10(3)/[facility] Monocytes % 11.5 % [facility] Monocyte Abs 0.6 0.3 - 0.9 x10(3)/[facility] Eosinophils % 2.3 % [facility] Eosinophils Abs 0.1 0.0 - 0.4 x10(3)/[facility] Basophils % 0.4 % [facility] Basophils Abs 0.0 0.0 - 0.1 x10(3)/[facility] Immature Gran % 0.40 % [facility] Comment: Immature granulocytes(IG's)percentage and absolute count will include metamyelocytes, myelocytes, and promyelocytes. Blood smears from CBCs yielding IG's will be scanned manually for concordance. If this scan disagrees with the automated IG or if promyelocytes are noted, a manual differential will be performed. Estefany Gran Abs 0.02 0.00 - 0.04 x10(3)/[facility] Blood 07/12/2023 5:58 AM EST 07/12/2023 6:37 AM EST Narrative Resulting Agency Comment Spec In Lab Suresh Terrell MD HEMATOLOGY ORDERABLE S Performing Organization Address City/State/[facility] Co de Phone Number [facility] [place] [address] * Hemogram (07/12/2023 5:58 AM EST) WBC 5.2 4.0 - 9.5 x10(3)/[facility] RBC 4.27 4.00 - 5.21 x10(6)/[facility] Hemoglobin 12.1 11.7 - 15.5 g/dL [facility] Hematocrit 38.2 35.7 - 45.8 % [facility] MCV 89.5 82.6 - 94.4 fL [facility] MCH 28.3 27.1 - 32.0 pg [facility] MCHC 31.7 31.7 - 35.0 g/dL [facility] Platelets 231 145 - 357 x10(3)/[facility] RDWSD 40.5 37.0 - 46.0 fL [facility] RDWCV 12.4 11.5 - 14.1 % [facility] MPV 11.7 7.6 - 12.9 fL [facility] nRBC % Auto 0.0 % [facility] nRBC Abs Auto 0.000 0.000 - 0.000 x10(3)/[facility] Blood 07/12/2023 5:58 AM EST 07/12/2023 6:37 AM EST Narrative Resulting Agency Comment Spec In Lab Suresh Terrell MD HEMATOLOGY ORDERABLE S Performing Organization Address City/[facility] Co de Phone Number [facility] [place] [address] * (ABNORMAL) Hemoglobin A1c (07/12/2023 5:58 AM EST) Hemoglobin A1C 7.5(H) 4.3 - 5.6 % [facility] Comment: Reference Range: 4.3 - 5.6% 5.7 - 6.4% - Increased Risk of Developing Diabetes Mellitus >= 6.5% - Consistent with diagnosis of Diabetes Mellitus In the absence of hyperglycemia (i.e. plasma glucose > 200 mg/dL) or classic symptoms of hyperglycemia a repeat measurement of HbA1c should be performed on a separate sample to confirm the diagnosis. Diagnosis and Classification of Diabetes Mellitus, Diabetes Care 2013; 36: Suppl. 1, S67-98 Est Avg Gluc 170 mg/dL [facility] Blood 07/12/2023 5:58 AM EST 07/12/2023 6:37 AM EST Narrative Resulting Agency Comment Spec In Lab Gee Contreras MD CHEMISTRY ORDERABLES Performing Organization Address City/[facility]/ZIP Co de Phone Number [facility] [place] [address] * Phosphorus (07/12/2023 5:58 AM EST) Phosphorus 3.8 2.5 - 4.5 mg/dL [facility] Blood 07/12/2023 5:58 AM EST 07/12/2023 6:38 AM EST Narrative Resulting Agency Comment Spec In Lab Gee Contreras MD CHEMISTRY ORDERABLES Performing Organization Address [facility] Co de Phone Number [facility] [place] [address] * Magnesium (07/12/2023 5:58 AM EST) Pathologist [facility] [place] Magnesium 0.75 0.69 - 1.07 mmol/L [facility] Blood 07/12/2023 5:58 AM EST 07/12/2023 6:38 AM EST Narrative Resulting Agency Comment Spec In Lab Gee Contreras MD CHEMISTRY ORDERABLES Performing Organization Address [facility] Phone Number [facility] [place] [address] * (ABNORMAL) Basic Metabolic Panel (non-fasting) (07/12/2023 5:58 AM EST) Pathologist [facility] [place] Glucose Lvl 77 65 - 199 mg/dL [facility] Comment:Diabetes: >=200 mg/d L plus symptoms BUN 9 8 - 18 mg/dL [facility] Creatinine 0.70 0.70 - 1.20 mg/dL [facility] Sodium 144 135 - 145 mmol/L [facility] Potassium 3.3(L) 3.5 - 5.0 mmol/L [facility] Comment: Please note: ??Patients with WBC >100,000 may have falsely elevated Potassium levels. ??For accurate Potassium quantification in these patients send serum separator tube (gold top) for subsequent determinations. ??Contact the Clinical Chemistry Laboratory if there are any questions. Chloride 108(H) 98 - 107 mmol/L [facility] CO2 28 22 - 31 mmol/L [facility] Anion Gap 8 5 - 15 mmol/L [facility] Calcium 8.8 8.5 - 10.5 mg/dL [facility] Estimated GFR 119 >=60 mL/min/1. 73 m?? [facility] Comment: This patient's estimated GFR was calculated using the 2020 CKD-EPI equation. The estimated GFR can vary from the measured GFR by up to 30% in the absence of rapidly changing kidney function. Assessment of the estimated GFR is not appropriate when creatinine concentrations are rapidly changing. For clinical situations in which a more precise estimate of GFR is necessary, consider alternative methods of GFR estimation such as a 24-hour urine creatinine clearance. Assignment of CKD stage 1-5 for patients with an eGFR near the transition point between stages may be based on clinical assessment of muscle mass and symptoms in addition to eGFR. Blood 07/12/2023 5:58 AM EST 07/12/2023 6:38 AM EST Narrative Resulting Agency Comment Spec In Lab Gee Contreras MD CHEMISTRY ORDERABLES Performing Organization Address City/[facility]/ZIP Co de Phone Number [facility] [place] [address] * POCT Glucose (07/12/2023 5:48 AM EST) POC Glucose 80 65 - 199 mg/dL [facility] Comment: Supplemental ranges: <140 mg/dL before meals <180 mg/dL all other times of the day Blood 07/12/2023 5:48 AM EST 07/12/2023 5:48 AM EST Gee Contreras MD POINT OF CARE TEST O RDERABLES Performing Organization Address City/[facility]/ZIP Co de Phone Number [facility] [place] [address] * (ABNORMAL) POCT Glucose (07/12/2023 4:06 AM EST) POC Glucose 51(Critica l) 65 - 199 mg/dL [facility] Comment: Supplemental ranges: <140 mg/dL before meals <180 mg/dL all other times of the day Blood 07/12/2023 4:06 AM EST 07/12/2023 4:06 AM EST Gee Contreras MD POINT OF CARE TEST O RDERABLES [facility] [place] [address] * XR Abdomen 1 view (Generic) (07/12/2023 4:05 AM EST) Anatomical Region Laterality Modality Abdomen N/A Digital Radiogra phy Impressions 07/12/2023 7:30 AM EST Passage of orally administered enteric contrast to the rectum. Otherwise normal abdomen radiographs. Thank you for letting us participate in the care of this patient. ??If you are a health care provider and have any questions regarding this report, please contact the number below. ??For patients who have questions please contact the health career services manager that requested your imaging first. ? Electronically signed by: Jamila Ny MD, [facility] ([phone]), at 07/12/2023 7:30 AM Narrative 07/12/2023 7:30 AM EST EXAMINATION: XR ABDOMEN 1 VIEW (GENERIC) CLINICAL HISTORY: Recent contrast from CT, would like to see how far it has gone TECHNIQUE: AP portable supine abdomen radiographs (4 images) COMPARISON: CT chest/abdomen/pelvis July 10, 2023 FINDINGS: Orally administered enteric contrast on July 10, 2023 has progressed to the rectum. Normal caliber and distribution of bowel contents. Mild retained fecal material within the ascending colon. No supine finding of intraperitoneal free air. No abnormal soft tissue contour or calcification. Lung bases are clear. No fracture. Preserved alignment at the spine and pelvis. Procedure Note Jamila Ny MD - 07/12/2023 EXAMINATION: XR ABDOMEN 1 VIEW (GENERIC) CLINICAL HISTORY: Recent contrast from CT, would like to see how far ithas gone TECHNIQUE: AP portable supine abdomen radiographs (4 images) COMPARISON: CT chest/abdomen/pelvis July 10, 2023 FINDINGS: Orally administered enteric contrast on July 10, 2023 has progressedto the rectum. Normal caliber and distribution of bowel contents. Mild retainedfecal material within the ascending colon. No supine finding of intraperitonealfree air. No abnormal soft tissue contour or calcification. Lung bases are clear.No fracture. Preserved alignment at the spine and pelvis. IMPRESSION Passage of orally administered enteric contrast to the rectum. Otherwisenormal abdomen radiographs. Thank you for letting us participate in the care of this patient. If youare a health care provider and have any questions regarding this report,please contact the number below. For patients who have questions please contactthe health career services manager that requested your imaging first. Gee Contreras MD IMG DX ORDERABLES documented in this encounter Visit Diagnoses Diagnosis Nausea with vomiting- Primary Hypertensive crisis Unspecified essential hypertension Chronic back pain, unspecified back location, unspecified back pain laterality Unstable gait Abnormality of gait Asymptomatic hypertensive urgency Chronic back pain Backache, unspecified documented in this encounter Admitting Diagnoses Diagnosis Gastric anastomotic stricture Other digestive system complications documented in this encounter Administered Medications Inactive Administered Medications - up to 3 most recent administrations Medication Order MAR Action Action Date Dose Rate Site ARIPiprazole (Abilify) tablet 20 mg 20 mg, Oral, DAILY, First dose on Wed07/12/23 at 0900, Until Discontinued, Routine Given 07/14/2023 9:17 AM EST 20 mg Given 07/13/2023 8:07 AM EST 20 mg Given 07/12/2023 2:01 PM EST 20 mg dextrose 10% infusion 250 mL, at 1,000 mL/hr, Intravenous, EVERY 15 MIN PRN, Starting on Wed07/12/23 at 0301, Until Wed07/14/23 at 1720, For BG 50-70 mg/dL: Oral treatment preferred: If able to drink, give 120 mL juice or regular (not diet) soda OR if NPO, give 15 gram glucose 40% oral gel massaged into buccal mucosa OR if unconscious or uncooperative, give 25 gram (250 mL) dextrose 10% IV over 15 minutes per protocol OR, if no IV access, 1 mg glucagon IM. For BG less than 50 mg/dL: Oral treatment preferred: If able to drink, give 240 mL juice or regular (not diet) soda OR if NPO, give 30 gram glucose 40% oral gel massaged in buccal mucosa OR if unconscious or uncooperative, give 25 gram (250 mL) dextrose 10% IV over 15 minutes per protocol OR, if no IV access, 1 mg glucagon IM. Recheck BG in 15 minutes. May repeat juice/soda, gel, dextrose or glucagon once per episode. Notify provider if hypoglycemia does not resolve after two treatments. Providers should consider the following: administering longer-acting treatments for the duration of active insulin or hypoglycemia agent for persistent hypoglycemia and re-evaluating active insulin orders before administering the next dose. New Bag 07/12/2023 12:01 PM EST 250 mLs 1000 mL/hr New Bag 07/12/2023 8:11 AM EST 250 mLs 1000 mL/hr New Bag 07/12/2023 4:28 AM EST 250 mLs 1000 mL/hr enalaprilat (Vasotec) (1.25 mg/mL) injection 1.25 mg 1.25 mg, Intravenous, ONCE, 1 dose, On Wed07/12/23 at 1745, Administer over 5 Minutes Given 07/12/2023 5:09 PM ES T 1.25 mg enoxaparin (Lovenox) (40 mg/0.4 mL) subcutaneous injection 40 mg 40 mg, Subcutaneous, EVERY 12 HOURS SCHEDULED (2 times per day), First dose (after last modification) on Wed07/12/23 at 0900, Until Discontinued, Routine Given 07/14/2023 9:15 AM EST 40 mg Given 07/13/2023 8:27 PM EST 40 mg Given 07/13/2023 8:06 AM EST 40 mg furosemide (Lasix) tablet 20 mg 20 mg, Oral, DAILY, First dose on Wed07/12/23 at 0900, Until Discontinued, Routine Given 07/14/2023 9:16 AM EST 20 mg Given 07/13/2023 8:06 AM EST 20 mg Given 07/12/2023 9:35 AM EST 20 mg gabapentin (Neurontin) capsule 300 mg 300 mg, Oral, DAILY, First dose (after last modification) on Wed07/12/23 at 0900, Until Discontinued, Routine Given 07/14/2023 9:15 AM EST 300 mg Given 07/13/2023 8:07 AM EST 300 mg Given 07/12/2023 2:00 PM EST 300 mg gabapentin (Neurontin) capsule 600 mg 600 mg, Oral, NIGHTLY, First dose (after last modification) on Wed07/12/23 at 2100, Until Discontinued, Routine Given 07/13/2023 8:27 PM EST 600 mg Given 07/12/2023 8:14 PM EST 600 mg glucagon (Glucagen) (1 mg/mL) injection solution 1 mg 1 mg, Intramuscular, EVERY 15 MIN PRN, Starting on Wed07/12/23 at 0301, Until Wed07/14/23 at 1720, Low blood sugar, For BG 50-70 mg/dL: Oral treatment preferred: If able to drink, give 120 mL juice or regular (not diet) soda OR if NPO, give 15 gram glucose 40% oral gel massaged into buccal mucosa OR if unconscious or uncooperative, give 25 gram (250 mL) dextrose 10% IV over 15 minutes per protocol OR, if no IV access, 1 mg glucagon IM. For BG less than 50 mg/dL: Oral treatment preferred: If able to drink, give 240 mL juice or regular (not diet) soda OR if NPO, give 30 gram glucose 40% oral gel massaged in buccal mucosa OR if unconscious or uncooperative, give 25 gram (250 mL) dextrose 10% IV over 15 minutes per protocol OR, if no IV access, 1 mg glucagon IM. Recheck BG in 15 minutes. May repeat juice/soda, gel, dextrose or glucagon once per episode. Notify provider if hypoglycemia does not resolve after two treatments. Providers should consider the following: administering longer-acting treatments for the duration of active insulin or hypoglycemia agent for persistent hypoglycemia and re-evaluating active insulin orders before administering the next dose. , Routine glucose (Glutose) 40% oral geL 15-30 g of glucose, Buccal, EVERY 15 MIN PRN, Starting on Wed07/12/23 at 0301, Until Wed07/14/23 at 1720, Low blood sugar, For BG 50-70 mg/dL: Oral treatment preferred: If able to drink, give 120 mL juice or regular (not diet) soda OR if NPO, give 15 gram glucose 40% oral gel massaged into buccal mucosa OR if unconscious or uncooperative, give 25 gram (250 mL) dextrose 10% IV over 15 minutes per protocol OR, if no IV access, 1 mg glucagon IM. For BG less than 50 mg/dL: Oral treatment preferred: If able to drink, give 240 mL juice or regular (not diet) soda OR if NPO, give 30 gram glucose 40% oral gel massaged in buccal mucosa OR if unconscious or uncooperative, give 25 gram (250 mL) dextrose 10% IV over 15 minutes per protocol OR, if no IV access, 1 mg glucagon IM. Recheck BG in 15 minutes. May repeat juice/soda, gel, dextrose or glucagon once per episode. Notify provider if hypoglycemia does not resolve after two treatments. Providers should consider the following: administering longer-acting treatments for the duration of active insulin or hypoglycemia agent for persistent hypoglycemia and re-evaluating active insulin orders before administering the next dose. 1 tube of Glutose-15 contains 15 grams of glucose (net weight of tube = 37.5 grams.), Routine hydrALAZINE (Apresoline) (20 mg/mL) injection 15 mg 15 mg, Intravenous, EVERY 6 HOURS PRN, Starting on Wed07/12/23 at 2133, Until Wed07/13/23 at 0749, High Blood Pressure, For SBP>160 or DBP>100, do not give if HR>90 Given 07/12/2023 9:41 PM EST 15 mg hydrALAZINE (Apresoline) (20 mg/mL) injection 15 mg 15 mg, Intravenous, EVERY 3 HOURS PRN, Starting on Wed07/13/23 at 0800, Until Wed07/14/23 at 1720, High Blood Pressure, Give if SBP > 170 and HR < 60 hydrALAZINE (Apresoline) (20 mg/mL) injection 5 mg 5 mg, Intravenous, EVERY 6 HOURS PRN, Starting on Wed07/12/23 at 1035, Until Wed07/12/23 at 2133, High Blood Pressure, For SBP>160 or DBP>100, do not give if HR>90 Given 07/12/2023 11:54 AM EST 5 mg insulin lispro (HumaLOG;Admelog) (100 unit/mL) subcutaneous injection vial 1-6 Units 1-6 Units, Subcutaneous, EVERY 4 HOURS SCHEDULED, First dose (after last modification) on Wed07/12/23 at 1600, Until Discontinued, CORRECTION BOLUS [1-6 Units] Moderate Sliding Scale (BG in mg/dL): Correction factor 20 (1 unit of insulin is expected to drop the glucose 20 mg/dL) BG 161 - 180 Give 2 units BG 181 - 200 Give 3 units BG 201 - 220 Give 4 units BG 221 - 240 Give 5 units BG greater than 240, give 6 units and recheck BG in 2 hours. - If recheck BG is LESS than 240, give no insulin and resume schedule. - If recheck BG is GREATER than or EQUAL to 240, give 6 units and repeat BG in 2 hours (no more than 3 times) & call for new insulin orders. DO NOT hold if NPO, unless specifically directed to do so by written order. ?? Per Inpatient Subcutaneous Insulin Policy, recheck a BG of greater than 240 mg/dL in 2 hours., Routine iohexoL (Omnipaque) (300 mg/mL) solution 0-50 mL 0-50 mL, Oral, ONCE PRN, 1 dose, Starting on Wed07/12/23 at 1258, Until Wed07/14/23 at 1720, Per Protocol, Warning Vesicant/Irritant Medication , Routine labetaloL (Normodyne) (5 mg/mL) injection solution 10 mg 10 mg, Intravenous, ONCE, 1 dose, On Wed07/12/23 at 1445, Routine Given 07/12/2023 2:00 PM EST 10 mg labetaloL (Normodyne) (5 mg/mL) injection solution 20 mg 20 mg, Intravenous, ONCE, 1 dose, On Wed07/12/23 at 1615, Routine Given 07/12/2023 3:41 PM EST 20 mg labetaloL (Normodyne) (5 mg/mL) injection solution 20 mg 20 mg, Intravenous, EVERY 4 HOURS PRN, Starting on Wed07/12/23 at 1516, Until Wed07/13/23 at 0749, High Blood Pressure, SBP >170, hold for HR <60, Routine Given 07/12/2023 8:37 PM EST 20 mg labetaloL (Normodyne) (5 mg/mL) injection solution 20 mg 20 mg, Intravenous, EVERY 2 HOURS PRN, Starting on Wed07/13/23 at 0800, Until Wed07/14/23 at 1720, High Blood Pressure, SBP >170, hold for HR <60, Give if SBP > 170 and HR > 60, Routine labetaloL (Normodyne) (5 mg/mL) injection solution 40 mg 40 mg, Intravenous, ONCE, 1 dose, On Wed07/12/23 at 1700, STAT Given 07/12/2023 4:27 PM EST 40 mg lactated ringers infusion 1,000 mL, at 100 mL/hr, Intravenous, CONTINUOUS, Starting on Wed07/12/23 at 0400, Until Wed07/12/23 at 1003 New Bag 07/12/2023 4:43 AM EST 1,000 mLs 100 mL/hr lactated ringers infusion 100 mL/hr, Intravenous, CONTINUOUS, Starting on Wed07/12/23 at 1100, Until Wed07/12/23 at 2251 New Bag 07/12/2023 6:14 PM EST 100 mL/hr 100 mL/hr Rate/Dose Change 07/12/2023 11:56 AM EST 100 mL/hr 100 mL /hr Continued Bag 07/12/2023 10:19 AM EST 125 mL/hr 125 mL/hr lactated ringers infusion 100 mL/hr, Intravenous, CONTINUOUS, Starting on Wed07/13/23 at 0315, Until Wed07/13/23 at 0738 Rate/Dose Verify 07/13/2023 7:35 AM EST 100 mL/hr 100 mL/hr New Bag 07/13/2023 6:43 AM EST 100 mL/hr 100 mL/hr New Bag 07/13/2023 2:26 AM EST 100 mL/hr 100 mL/hr levothyroxine (Synthroid) tablet 200 mcg 200 mcg, Oral, EVERY MORNING, First dose on Wed07/12/23 at 0600, Until Discontinued Given 07/14/2023 5:01 AM EST 200 mcg Given 07/13/2023 6:04 AM EST 200 mcg Given 07/12/2023 5:37 AM EST 200 mcg losartan (Cozaar) tablet 25 mg 25 mg, Oral, DAILY, First dose on Wed07/12/23 at 0900, Until Discontinued, Routine Given 07/12/2023 9:35 AM EST 25 mg losartan (Cozaar) tablet 50 mg 50 mg, Oral, DAILY, First dose (after last modification) on Wed07/13/23 at 0900, Until Discontinued, Routine Given 07/14/2023 9:16 AM EST 50 mg Given 07/13/2023 8:07 AM EST 50 mg metoprolol succinate XL (Toprol-XL) tablet 100 mg 100 mg, Oral, DAILY, First dose on Wed07/12/23 at 0900, Until Discontinued, DO NOT CRUSH OR OPEN, Routine Given 07/12/2023 9:35 AM EST 100 mg metoproloL tartrate (Lopressor) tablet 25 mg 25 mg, Oral, EVERY 6 HOURS SCHEDULED, First dose on Wed07/13/23 at 0900, Until Discontinued, Routine Given 07/14/2023 11:51 AM EST 25 mg Given 07/14/2023 5:01 AM EST 25 mg Given 07/14/2023 12:27 AM EST 25 mg niCARdipine (Cardene) (0.2 mg/mL) in sodium chloride 200 mL infusion 0-15 mg/hr (0-75 mL/hr), Intravenous, CONTINUOUS, Starting on Wed07/13/23 at 0000, Until Wed07/13/23 at 0626, Titrate to systolic blood pressure (SBP) greater than 160 mmHg and less than 180 mmHg. Start at 5 mg/hr. Increase/decrease by 2.5 mg/hr every 5 minutes until goal reached. Do not exceed 15 mg/hr. Rotate IV site every 12 hours., Routine New Bag 07/13/2023 12:03 AM EST 2.5 mg/hr 12.5 mL/hr New Bag 07/12/2023 11:10 PM EST 5 mg/hr 25 mL/hr norethindrone (Aygestin) tablet 10 mg 10 mg, Oral, 3 TIMES DAILY, First dose on Wed07/12/23 at 0900, Until Discontinued, Routine Given 07/14/2023 3:05 PM EST 10 mg Given 07/14/2023 9:17 AM EST 10 mg Given 07/13/2023 8:28 PM EST 10 mg ondansetron (pf) (Zofran) (2 mg/mL) injection 4 mg 4 mg, Intravenous, EVERY 8 HOURS PRN, Starting on Wed07/12/23 at 0301, Until Wed07/14/23 at 1720, Nausea, If multiple antiemetics are ordered, use ondansetron first, prochlorperazine second, and metoclopramide third. PO Preferred. If patient unable to take PO, may give IV if ordered. May repeat times one in 30 minutes if ineffective. Maximum daily dose = 24 mg/24 hours ondansetron (Zofran) tablet 4 mg 4 mg, Oral, EVERY 8 HOURS PRN, Starting on Wed07/12/23 at 0301, Until Wed07/14/23 at 1720, Nausea, Vomiting, If multiple antiemetics are ordered, use ondansetron first, prochlorperazine second, and metoclopramide third. PO Preferred. If patient unable to take PO, may give IV if ordered. May repeat times one in 45 minutes if ineffective. Maximum daily dose = 24 mg/24 hours, Routine polyethylene glycoL (Miralax) packet 17 g 17 g, Oral, DAILY, First dose on Wed07/13/23 at 1230, Until Discontinued, Routine Given 07/13/2023 11:44 AM EST 17 g potassium chloride ER (Klor-Con M) crystal tablet 40 mEq 40 mEq, Oral, ONCE, 1 dose, On Wed07/14/23 at 1245, May dissolve if unable to swallow ER tablet. potassium chloride ER particle/crystal tablets (Klor-Con M) may be broken in half and each half swallowed separately. Tablets can be dissolved in ~4 ounces of water; allow ~2 minutes to dissolve, stir well and drink immediately. Do not crush, chew, or suck on tablet., Routine Given 07/14/2023 11:51 AM EST 40 mEq prazosin (Minipress) capsule 10 mg 10 mg, Oral, NIGHTLY, First dose on Wed07/12/23 at 2100, Until Discontinued, Routine Given 07/13/2023 8:27 PM EST 10 mg Given 07/12/2023 8:13 PM EST 10 mg sodium chloride 0.9 % (flush) (BD PosiFlush Normal Saline 0.9) flush 5 mL 5 mL, Intravenous, 2 TIMES DAILY, First dose on Wed07/12/23 at 0900, Until Discontinued, Routine Given 07/14/2023 9:16 AM EST 5 mLs Given 07/13/2023 8:28 PM EST 5 mLs Given 07/13/2023 8:08 AM EST 5 mLs thiamine (Vitamin B-1) (100 mg/mL) injection 100 mg 100 mg, Intravenous, ONCE, 1 dose, On Wed07/13/23 at 1600, Doses of 100 mg are to be administered as IV push over 5 minutes. Doses of 200 mg or more should be mixed in 50 mL 0.9% Sodium Chloride and infused over 30 minutes. Given 07/13/2023 3:20 PM EST 100 mg traZODone (Desyrel) tablet 300 mg 300 mg, Oral, NIGHTLY, First dose on Wed07/12/23 at 2100, Until Discontinued, Routine Given 07/13/2023 8:27 PM EST 300 mg Given 07/12/2023 8:14 PM EST 300 mg documented in this encounter Active and Recently Administered Medications Times are shown in EST. Scheduled Medication Order 07/12/2023 07/13/2023 07/14/2023 ARIPiprazole (Abilify) tablet 20 mg 20 mg, Oral, DAILY, First dose on Wed07/12/23 at 0900, Until Discontinued, Routine 1401 (Given - Provider: Elizabeth Medrano RN) 0807 (Given - Provider: Bernardo Roper RN) 0917 (Given - Provider: Lashell Matos RN) enalaprilat (Vasotec) (1.25 mg/mL) injection 1.25 mg (COMPLETED) 1.25 mg, Intravenous, ONCE, 1 dose, On Wed07/12/23 at 1745, Administer over 5 Minutes 1709 (Given - Provider: Naomi Gonzales RN - Comment: bp 208/108) enoxaparin (Lovenox) (40 mg/0.4 mL) subcutaneous injection 40 mg 40 mg, Subcutaneous, EVERY 12 HOURS SCHEDULED (2 times per day), First dose (after last modification) on Wed07/12/23 at 0900, Until Discontinued, Routine 0935 (Given - Provider: Elizabeth Medrano RN)2013 (Given - Provider: Lia Adam RN) 08 (Given - Provider: Bernardo Roper, TOM)2026 (Given - Provider: Toma Rockwell RN) 0915 (Given - Provider: Lashell Matos, TOM) furosemide (Lasix) tablet 20 mg 20 mg, Oral, DAILY, First dose on Wed07/12/23 at 0900, Until Discontinued, Routine 934 (Given - Provider: Elizabeth Medrano RN) 08 (Given - Provider: Bernardo Roper RN) 0916 (Given - Provider: Lashell Matos, TOM) gabapentin (Neurontin) capsule 300 mg(Linked Group 1) 300 mg, Oral, DAILY, First dose (after last modification) on Wed07/12/23 at 0900, Until Discontinued, Routine 1400 (Given - Provider: Elizabeth Medrano RN) 08 (Given - Provider: Bernardo Roper, TOM) 0915 (Given - Provider: Lashell Matos RN) gabapentin (Neurontin) capsule 600 mg(Linked Group 1) 600 mg, Oral, NIGHTLY, First dose (after last modification) on Wed07/12/23 at 2100, Until Discontinued, Routine 2013 (Given - Provider: Lia Adam RN) 2026 (Given - Provider: Toma Rockwell RN) insulin lispro (HumaLOG;Admelog) (100 unit/mL) subcutaneous injection vial 1-6 Units(Linked Group 2) 1-6 Units, Subcutaneous, EVERY 4 HOURS SCHEDULED, First dose (after last modification) on Wed07/12/23 at 1600, Until Discontinued, CORRECTION BOLUS [1-6 Units] Moderate Sliding Scale (BG in mg/dL): Correction factor 20 (1 unit of insulin is expected to drop the glucose 20 mg/dL) BG 161 - 180 Give 2 units BG 181 - 200 Give 3 units BG 201 - 220 Give 4 units BG 221 - 240 Give 5 units BG greater than 240, give 6 units and recheck BG in 2 hours. - If recheck BG is LESS than 240, give no insulin and resume schedule. - If recheck BG is GREATER than or EQUAL to 240, give 6 units and repeat BG in 2 hours (no more than 3 times) & call for new insulin orders. DO NOT hold if NPO, unless specifically directed to do so by written order. ?? Per Inpatient Subcutaneous Insulin Policy, recheck a BG of greater than 240 mg/dL in 2 hours., Routine 1600 (Not Given - Provider: Elizabeth Medrano RN - Reason: Order parameters not met)2000 (Not Given - Provider: Lia Adam RN - Reason: Order parameters not met - Comment: BS 63. Juice given)2328 (Not Given - Provider: Toma Rockwell RN - Reason: Contraindicated) 0420 (Not Given - Provider: Toma Rockwell RN - Reason: Contraindicated)0800 (Not Given - Provider: Bernardo Roper RN - Reason: Order parameters not met - Comment: holding for BG 91)1200 (Not Given - Provider: Bernardo Roper RN - Reason: Order parameters not met - Comment: holding for BG 104)1600 (Not Given - Provider: Bernardo Roper RN - Reason: Order parameters not met - Comment: holding for BG 94)1920 (Not Given - Provider: Toma Rockwell RN - Reason: Contraindicated) 0028 (Not Given - Provider: Toma Rockwell RN - Reason: Contraindicated)0357 (Not Given - Provider: Toma Rockwell RN - Reason: Contraindicated)0800 (Not Given - Provider: Lashell Matos RN - Reason: Order parameters not met)1200 (Not Given - Provider: Lashell Matos RN - Reason: Order parameters not met) labetaloL (Normodyne) (5 mg/mL) injection solution 10 mg (COMPLETED) 10 mg, Intravenous, ONCE, 1 dose, On Wed07/12/23 at 1445, Routine 1400 (Given - Provider: Elizabeth Medrano RN) labetaloL (Normodyne) (5 mg/mL) injection solution 20 mg (COMPLETED) 20 mg, Intravenous, ONCE, 1 dose, On Wed07/12/23 at 1615, Routine 1541 (Given - Provider: Elizabeth Medrano RN) labetaloL (Normodyne) (5 mg/mL) injection solution 40 mg (COMPLETED) 40 mg, Intravenous, ONCE, 1 dose, On Wed07/12/23 at 1700, STAT 1627 (Given - Provider: Elizabeth Medrano RN - Comment: [facility] w pharmacy) levothyroxine (Synthroid) tablet 200 mcg 200 mcg, Oral, EVERY MORNING, First dose on Wed07/12/23 at 0600, Until Discontinued 0537 (Given - Provider: Frantz Kraus RN) 0604 (Given - Provider: Toma Rockwell, TOM) 0501 (Given - Provider: Toma Rockwell RN) losartan (Cozaar) tablet 25 mg (CANCELED) 25 mg, Oral, DAILY, First dose on Wed07/12/23 at 0900, Until Discontinued, Routine 0935 (Given - Provider: Elizabeth Medrano RN) losartan (Cozaar) tablet 50 mg 50 mg, Oral, DAILY, First dose (after last modification) on Wed07/13/23 at 0900, Until Discontinued, Routine 0807 (Given - Provider: Bernardo Roper RN) 0916 (Given - Provider: Lashell Matos RN) metoprolol succinate XL (Toprol-XL) tablet 100 mg (CANCELED) 100 mg, Oral, DAILY, First dose on Wed07/12/23 at 0900, Until Discontinued, DO NOT CRUSH OR OPEN, Routine 0935 (Given - Provider: Elizabeth Medrano RN) metoproloL tartrate (Lopressor) tablet 25 mg 25 mg, Oral, EVERY 6 HOURS SCHEDULED, First dose on Wed07/13/23 at 0900, Until Discontinued, Routine 0806 (Given - Provider: Bernardo Roper RN)1701 (Given - Provider: Bernardo Roper RN) 0027 (Given - Provider: Toma Rockwell RN)0501 (Given - Provider: Toma Rockwell RN)1151 (Given - Provider: Lashell Matos RN) norethindrone (Aygestin) tablet 10 mg 10 mg, Oral, 3 TIMES DAILY, First dose on Wed07/12/23 at 0900, Until Discontinued, Routine 0900 (Not Given - Provider: Elizabeth Medrano RN - Reason: See comment - Comment: requested by Xray to not give AM meds prior to imaging)1715 (Given - Provider: Elizabeth Medrano RN)2240 (Given - Provider: Linette Boothe RN) 0808 (Given - Provider: Bernardo Roper RN)1411 (Given - Provider: Bernardo Roper RN)202 (Given - Provider: Toma Rockwell, TOM) 0917 (Given - Provider: Lashell Matos, TOM)1505 (Given - Provider: Lashell Matos RN) polyethylene glycoL (Miralax) packet 17 g 17 g, Oral, DAILY, First dose on Wed07/13/23 at 1230, Until Discontinued, Routine 1144 (Given - Provider: Bernardo Roper RN) 0900 (Not Given - Provider: Lashell Matos RN - Reason: Patient/family refused) potassium chloride ER (Klor-Con M) crystal tablet 40 mEq (COMPLETED) 40 mEq, Oral, ONCE, 1 dose, On Wed07/14/23 at 1245, May dissolve if unable to swallow ER tablet. potassium chloride ER particle/crystal tablets (Klor-Con M) may be broken in half and each half swallowed separately. Tablets can be dissolved in ~4 ounces of water; allow ~2 minutes to dissolve, stir well and drink immediately. Do not crush, chew, or suck on tablet., Routine 1151 (Given - Provider: Lashell Matos RN) prazosin (Minipress) capsule 10 mg 10 mg, Oral, NIGHTLY, First dose on Wed07/12/23 at 2100, Until Discontinued, Routine 2012 (Given - Provider: Lia Adam RN) 2026 (Given - Provider: Toma Rockwell RN) sodium chloride 0.9 % (flush) (BD PosiFlush Normal Saline 0.9) flush 5 mL 5 mL, Intravenous, 2 TIMES DAILY, First dose on Wed07/12/23 at 0900, Until Discontinued, Routine 0937 (Given - Provider: Elizabeth Medrano RN)2100 (Not Given - Provider: iLa Adam RN - Reason: See comment - Comment: IV infusing) 0808 (Given - Provider: Bernardo Roper, TOM)2027 (Given - Provider: Toma Rockwell RN) 0916 (Given - Provider: Lashell Matos, TOM) thiamine (Vitamin B-1) (100 mg/mL) injection 100 mg (COMPLETED) 100 mg, Intravenous, ONCE, 1 dose, On Wed07/13/23 at 1600, Doses of 100 mg are to be administered as IV push over 5 minutes. Doses of 200 mg or more should be mixed in 50 mL 0.9% Sodium Chloride and infused over 30 minutes. 1520 (Given - Provider: Bernardo Roper RN) traZODone (Desyrel) tablet 300 mg 300 mg, Oral, NIGHTLY, First dose on Wed07/12/23 at 2100, Until Discontinued, Routine 2013 (Given - Provider: Lia Adam RN) 2026 (Given - Provider: Toma Rockwell RN) Continuous Medication Order 07/12/2023 07/13/2023 07/14/2023 lactated ringers infusion (CANCELED) 1,000 mL, at 100 mL/hr, Intravenous, CONTINUOUS, Starting on Wed07/12/23 at 0400, Until Wed07/12/23 at 1003 0443 (New Bag - Provider: Frantz Kraus RN) lactated ringers infusion (CANCELED) 100 mL/hr, Intravenous, CONTINUOUS, Starting on Wed07/12/23 at 1100, Until Wed07/12/23 at 2251 1019 (Continued Bag - Provider: Elizabeth Medrano RN)1156 (Rate/Dose Change - Provider: Elizabeth Medrano RN)1246 (Paused - Provider: Elizabeth Medrano RN)1814 (New Bag - Provider: Elizabeth Medrano RN)2200 (Stopped - Provider: Toma Rockwell RN) lactated ringers infusion (CANCELED) 100 mL/hr, Intravenous, CONTINUOUS, Starting on Wed07/13/23 at 0315, Until Wed07/13/23 at 0738 0226 (New Bag - Provider: Toma Rockwell RN)0643 (New Bag - Provider: Toma Rockwell RN)0735 (Rate/Dose Verify - Provider: Bernardo Roper, RN)0738 (Stopped - Provider: Bernardo Roper, RN) niCARdipine (Cardene) (0.2 mg/mL) in sodium chloride 200 mL infusion (CANCELED) 0-15 mg/hr (0-75 mL/hr), Intravenous, CONTINUOUS, Starting on Wed07/13/23 at 0000, Until Wed07/13/23 at 0626, Titrate to systolic blood pressure (SBP) greater than 160 mmHg and less than 180 mmHg. Start at 5 mg/hr. Increase/decrease by 2.5 mg/hr every 5 minutes until goal reached. Do not exceed 15 mg/hr. Rotate IV site every 12 hours., Routine 2310 (New Bag - Provider: Toma Rockwell RN - Comment: pt arrived with LS)2329 (Paused - Provider: Toma Rockwell RN) 0003 (New Bag - Provider: Toma Rockwell RN)0017 (Paused - Provider: Toma Rocwkell RN)0626 (Stopped - Provider: Toma Rockwell RN) PRN Medication Order 07/12/2023 07/13/2023 07/14/2023 acetaminophen (Tylenol) tablet 650 mg 650 mg, Oral, EVERY 6 HOURS PRN, Starting on Wed07/12/23 at 0301, Until Wed07/14/23 at 1720, Pain, Fever, Administer for pain or temperature greater than or equal to 38.2 degrees Celsius. Maximum daily dose of acetaminophen from all sources not to exceed 4,000 mg. When ordered for pain, acetaminophen should be given even when other ordered pain medications are indicated., Routine dextrose 10% infusion(Linked Group 3) 250 mL, at 1,000 mL/hr, Intravenous, EVERY 15 MIN PRN, Starting on Wed07/12/23 at 0301, Until Wed07/14/23 at 1720, For BG 50-70 mg/dL: Oral treatment preferred: If able to drink, give 120 mL juice or regular (not diet) soda OR if NPO, give 15 gram glucose 40% oral gel massaged into buccal mucosa OR if unconscious or uncooperative, give 25 gram (250 mL) dextrose 10% IV over 15 minutes per protocol OR, if no IV access, 1 mg glucagon IM. For BG less than 50 mg/dL: Oral treatment preferred: If able to drink, give 240 mL juice or regular (not diet) soda OR if NPO, give 30 gram glucose 40% oral gel massaged in buccal mucosa OR if unconscious or uncooperative, give 25 gram (250 mL) dextrose 10% IV over 15 minutes per protocol OR, if no IV access, 1 mg glucagon IM. Recheck BG in 15 minutes. May repeat juice/soda, gel, dextrose or glucagon once per episode. Notify provider if hypoglycemia does not resolve after two treatments. Providers should consider the following: administering longer-acting treatments for the duration of active insulin or hypoglycemia agent for persistent hypoglycemia and re-evaluating active insulin orders before administering the next dose. 0428 (New Bag - Provider: Frantz Kraus RN)0443 (Stopped - Provider: Frantz Kraus RN)0811 (New Bag - Provider: Elizabeth Medrano RN)0826 (Stopped - Provider: Elizabeth Medrano RN)1201 (New Bag - Provider: Elizabeth Medrano, TOM)1216 (Stopped - Provider: Elizabeth Medrano RN) glucagon (Glucagen) (1 mg/mL) injection solution 1 mg(Linked Group 3) 1 mg, Intramuscular, EVERY 15 MIN PRN, Starting on Wed07/12/23 at 0301, Until Wed07/14/23 at 1720, Low blood sugar, For BG 50-70 mg/dL: Oral treatment preferred: If able to drink, give 120 mL juice or regular (not diet) soda OR if NPO, give 15 gram glucose 40% oral gel massaged into buccal mucosa OR if unconscious or uncooperative, give 25 gram (250 mL) dextrose 10% IV over 15 minutes per protocol OR, if no IV access, 1 mg glucagon IM. For BG less than 50 mg/dL: Oral treatment preferred: If able to drink, give 240 mL juice or regular (not diet) soda OR if NPO, give 30 gram glucose 40% oral gel massaged in buccal mucosa OR if unconscious or uncooperative, give 25 gram (250 mL) dextrose 10% IV over 15 minutes per protocol OR, if no IV access, 1 mg glucagon IM. Recheck BG in 15 minutes. May repeat juice/soda, gel, dextrose or glucagon once per episode. Notify provider if hypoglycemia does not resolve after two treatments. Providers should consider the following: administering longer-acting treatments for the duration of active insulin or hypoglycemia agent for persistent hypoglycemia and re-evaluating active insulin orders before administering the next dose. , Routine 0428 (See Alternative - Provider: Frantz Kraus, TOM)0443 (See Alternative - Provider: Frantz Kraus, RN)0811 (See Alternative - Provider: Elizabeth Medrano, RN)0826 (See Alternative - Provider: Elizabeth Medrano, RN)1201 (See Alternative - Provider: Elizabeth Medrano, RN)1216 (See Alternative - Provider: Elizabeth Medrano, RN) glucose (Glutose) 40% oral geL(Linked Group 3) 15-30 g of glucose, Buccal, EVERY 15 MIN PRN, Starting on Wed07/12/23 at 0301, Until Wed07/14/23 at 1720, Low blood sugar, For BG 50-70 mg/dL: Oral treatment preferred: If able to drink, give 120 mL juice or regular (not diet) soda OR if NPO, give 15 gram glucose 40% oral gel massaged into buccal mucosa OR if unconscious or uncooperative, give 25 gram (250 mL) dextrose 10% IV over 15 minutes per protocol OR, if no IV access, 1 mg glucagon IM. For BG less than 50 mg/dL: Oral treatment preferred: If able to drink, give 240 mL juice or regular (not diet) soda OR if NPO, give 30 gram glucose 40% oral gel massaged in buccal mucosa OR if unconscious or uncooperative, give 25 gram (250 mL) dextrose 10% IV over 15 minutes per protocol OR, if no IV access, 1 mg glucagon IM. Recheck BG in 15 minutes. May repeat juice/soda, gel, dextrose or glucagon once per episode. Notify provider if hypoglycemia does not resolve after two treatments. Providers should consider the following: administering longer-acting treatments for the duration of active insulin or hypoglycemia agent for persistent hypoglycemia and re-evaluating active insulin orders before administering the next dose. 1 tube of Glutose-15 contains 15 grams of glucose (net weight of tube = 37.5 grams.), Routine 0428 (See Alternative - Provider: Frantz Kraus, TOM)0443 (See Alternative - Provider: Frantz Kraus RN)0811 (See Alternative - Provider: Elizabeth Medrano RN)0826 (See Alternative - Provider: Elizabeth Medrano, RN)1201 (See Alternative - Provider: Elizabeth Medrano RN)1216 (See Alternative - Provider: Elizabeth Medrano RN) hydrALAZINE (Apresoline) (20 mg/mL) injection 15 mg (CANCELED) 15 mg, Intravenous, EVERY 6 HOURS PRN, Starting on Wed07/12/23 at 2133, Until Wed07/13/23 at 0749, High Blood Pressure, For SBP>160 or DBP>100, do not give if HR>90 2141 (Given - Provider: Linette Boothe RN) hydrALAZINE (Apresoline) (20 mg/mL) injection 15 mg 15 mg, Intravenous, EVERY 3 HOURS PRN, Starting on Wed07/13/23 at 0800, Until Wed07/14/23 at 1720, High Blood Pressure, Give if SBP > 170 and HR < 60 hydrALAZINE (Apresoline) (20 mg/mL) injection 5 mg (CANCELED) 5 mg, Intravenous, EVERY 6 HOURS PRN, Starting on Wed07/12/23 at 1035, Until Wed07/12/23 at 2133, High Blood Pressure, For SBP>160 or DBP>100, do not give if HR>90 1154 (Given - Provider: Elizabeth Medrano RN) iohexoL (Omnipaque) (300 mg/mL) solution 0-50 mL 0-50 mL, Oral, ONCE PRN, 1 dose, Starting on Wed07/12/23 at 1258, Until Wed07/14/23 at 1720, Per Protocol, Warning Vesicant/Irritant Medication , Routine 1333 (Not Given - Provider: Claire Caldwell - Reason: Contraindicated) labetaloL (Normodyne) (5 mg/mL) injection solution 20 mg (CANCELED) 20 mg, Intravenous, EVERY 4 HOURS PRN, Starting on Wed07/12/23 at 1516, Until Wed07/13/23 at 0749, High Blood Pressure, SBP >170, hold for HR <60, Routine 2036 (Given - Provider: Lia Adam RN) labetaloL (Normodyne) (5 mg/mL) injection solution 20 mg 20 mg, Intravenous, EVERY 2 HOURS PRN, Starting on Wed07/13/23 at 0800, Until Wed07/14/23 at 1720, High Blood Pressure, SBP >170, hold for HR <60, Give if SBP > 170 and HR > 60, Routine lidocaine (Xylocaine) 1% (10 mg/mL) injection 3 mg 3 mg (0.3 mL), Subcutaneous, ONCE PRN, 1 dose, Starting on Wed07/12/23 at 0301, Until Wed07/14/23 at 1720, for discomfort with PIV insertion, Routine melatonin tablet 3 mg 3 mg, Oral, NIGHTLY PRN, Starting on Wed07/12/23 at 0301, Until Wed07/14/23 at 1720, Sleep, Routine ondansetron (pf) (Zofran) (2 mg/mL) injection 4 mg(Linked Group 4) 4 mg, Intravenous, EVERY 8 HOURS PRN, Starting on Wed07/12/23 at 0301, Until Wed07/14/23 at 1720, Nausea, If multiple antiemetics are ordered, use ondansetron first, prochlorperazine second, and metoclopramide third. PO Preferred. If patient unable to take PO, may give IV if ordered. May repeat times one in 30 minutes if ineffective. Maximum daily dose = 24 mg/24 hours ondansetron (Zofran) tablet 4 mg(Linked Group 4) 4 mg, Oral, EVERY 8 HOURS PRN, Starting on Wed07/12/23 at 0301, Until Wed07/14/23 at 1720, Nausea, Vomiting, If multiple antiemetics are ordered, use ondansetron first, prochlorperazine second, and metoclopramide third. PO Preferred. If patient unable to take PO, may give IV if ordered. May repeat times one in 45 minutes if ineffective. Maximum daily dose = 24 mg/24 hours, Routine sodium chloride 0.9 % (flush) (BD PosiFlush Normal Saline 0.9) flush 5-20 mL 5-20 mL, Intravenous, EVERY 1 MIN PRN, Starting on Wed07/12/23 at 0301, Until Wed07/14/23 at 1720, flush, Flush pertains to all indwelling lines. Flush per protocol found in the job aid using the link provided on this medication record., Routine Linked Groups Order Group 1: gabapentin (Neurontin) capsule 300 mgJump to med 300 mg, Oral, DAILY, First dose (after last modification) on Wed07/12/23 at 0900, Until Discontinued, Routine And gabapentin (Neurontin) capsule 600 mgJump to med 600 mg, Oral, NIGHTLY, First dose (after last modification) on Wed07/12/23 at 2100, Until Discontinued, Routine Group 2: POCT Fingerstick Glucose (CANCELED) Routine, EVERY 4 HOURS, First occurrence on Wed07/12/23 at 1600, Until Specified, Consider choosing EVERY 4 HOURS as frequency for: - Type 1 Diabetes - At least 24 hours after coming off an insulin drip - At least 24 hours after admission for DKA - Hypoglycemia unawareness - Patients who are otherwise unstable Select the same frequency for the correction bolus insulin order And insulin lispro (HumaLOG;Admelog) (100 unit/mL) subcutaneous injection vial 1-6 UnitsJump to med 1-6 Units, Subcutaneous, EVERY 4 HOURS SCHEDULED, First dose (after last modification) on Wed07/12/23 at 1600, Until Discontinued, CORRECTION BOLUS [1-6 Units] Moderate Sliding Scale (BG in mg/dL): Correction factor 20 (1 unit of insulin is expected to drop the glucose 20 mg/dL) BG 161 - 180 Give 2 units BG 181 - 200 Give 3 units BG 201 - 220 Give 4 units BG 221 - 240 Give 5 units BG greater than 240, give 6 units and recheck BG in 2 hours. - If recheck BG is LESS than 240, give no insulin and resume schedule. - If recheck BG is GREATER than or EQUAL to 240, give 6 units and repeat BG in 2 hours (no more than 3 times) & call for new insulin orders. DO NOT hold if NPO, unless specifically directed to do so by written order. ?? Per Inpatient Subcutaneous Insulin Policy, recheck a BG of greater than 240 mg/dL in 2 hours., Routine Group 3: glucose (Glutose) 40% oral geLJump to med 15-30 g of glucose, Buccal, EVERY 15 MIN PRN, Starting on Wed07/12/23 at 0301, Until Wed07/14/23 at 1720, Low blood sugar, For BG 50-70 mg/dL: Oral treatment preferred: If able to drink, give 120 mL juice or regular (not diet) soda OR if NPO, give 15 gram glucose 40% oral gel massaged into buccal mucosa OR if unconscious or uncooperative, give 25 gram (250 mL) dextrose 10% IV over 15 minutes per protocol OR, if no IV access, 1 mg glucagon IM. For BG less than 50 mg/dL: Oral treatment preferred: If able to drink, give 240 mL juice or regular (not diet) soda OR if NPO, give 30 gram glucose 40% oral gel massaged in buccal mucosa OR if unconscious or uncooperative, give 25 gram (250 mL) dextrose 10% IV over 15 minutes per protocol OR, if no IV access, 1 mg glucagon IM. Recheck BG in 15 minutes. May repeat juice/soda, gel, dextrose or glucagon once per episode. Notify provider if hypoglycemia does not resolve after two treatments. Providers should consider the following: administering longer-acting treatments for the duration of active insulin or hypoglycemia agent for persistent hypoglycemia and re-evaluating active insulin orders before administering the next dose. 1 tube of Glutose-15 contains 15 grams of glucose (net weight of tube = 37.5 grams.), Routine Or dextrose 10% infusionJump to med 250 mL, at 1,000 mL/hr, Intravenous, EVERY 15 MIN PRN, Starting on Wed07/12/23 at 0301, Until Wed07/14/23 at 1720, For BG 50-70 mg/dL: Oral treatment preferred: If able to drink, give 120 mL juice or regular (not diet) soda OR if NPO, give 15 gram glucose 40% oral gel massaged into buccal mucosa OR if unconscious or uncooperative, give 25 gram (250 mL) dextrose 10% IV over 15 minutes per protocol OR, if no IV access, 1 mg glucagon IM. For BG less than 50 mg/dL: Oral treatment preferred: If able to drink, give 240 mL juice or regular (not diet) soda OR if NPO, give 30 gram glucose 40% oral gel massaged in buccal mucosa OR if unconscious or uncooperative, give 25 gram (250 mL) dextrose 10% IV over 15 minutes per protocol OR, if no IV access, 1 mg glucagon IM. Recheck BG in 15 minutes. May repeat juice/soda, gel, dextrose or glucagon once per episode. Notify provider if hypoglycemia does not resolve after two treatments. Providers should consider the following: administering longer-acting treatments for the duration of active insulin or hypoglycemia agent for persistent hypoglycemia and re-evaluating active insulin orders before administering the next dose. Or glucagon (Glucagen) (1 mg/mL) injection solution 1 mgJump to med 1 mg, Intramuscular, EVERY 15 MIN PRN, Starting on Wed07/12/23 at 0301, Until Wed07/14/23 at 1720, Low blood sugar, For BG 50-70 mg/dL: Oral treatment preferred: If able to drink, give 120 mL juice or regular (not diet) soda OR if NPO, give 15 gram glucose 40% oral gel massaged into buccal mucosa OR if unconscious or uncooperative, give 25 gram (250 mL) dextrose 10% IV over 15 minutes per protocol OR, if no IV access, 1 mg glucagon IM. For BG less than 50 mg/dL: Oral treatment preferred: If able to drink, give 240 mL juice or regular (not diet) soda OR if NPO, give 30 gram glucose 40% oral gel massaged in buccal mucosa OR if unconscious or uncooperative, give 25 gram (250 mL) dextrose 10% IV over 15 minutes per protocol OR, if no IV access, 1 mg glucagon IM. Recheck BG in 15 minutes. May repeat juice/soda, gel, dextrose or glucagon once per episode. Notify provider if hypoglycemia does not resolve after two treatments. Providers should consider the following: administering longer-acting treatments for the duration of active insulin or hypoglycemia agent for persistent hypoglycemia and re-evaluating active insulin orders before administering the next dose. , Routine Group 4: ondansetron (Zofran) tablet 4 mgJump to med 4 mg, Oral, EVERY 8 HOURS PRN, Starting on Wed07/12/23 at 0301, Until Wed07/14/23 at 1720, Nausea, Vomiting, If multiple antiemetics are ordered, use ondansetron first, prochlorperazine second, and metoclopramide third. PO Preferred. If patient unable to take PO, may give IV if ordered. May repeat times one in 45 minutes if ineffective. Maximum daily dose = 24 mg/24 hours, Routine Or ondansetron (pf) (Zofran) (2 mg/mL) injection 4 mgJump to med 4 mg, Intravenous, EVERY 8 HOURS PRN, Starting on Wed07/12/23 at 0301, Until Wed07/14/23 at 1720, Nausea, If multiple antiemetics are ordered, use ondansetron first, prochlorperazine second, and metoclopramide third. PO Preferred. If patient unable to take PO, may give IV if ordered. May repeat times one in 30 minutes if ineffective. Maximum daily dose = 24 mg/24 hours documented in this encounter Care Teams Senior Data Analyst Relationship Specialty Start Date End Date Lia Pearson APRN [id number] [facility] [address] PCP - General Geriatric Medicine 02/09/22 documented as of this encounter
--- OUTSIDE RECORDS SUMMARY | 2023-11-26 19:28 | XMS_ITS | Clinical Summary ---
Author Organization [facility] Address [facility] [address] Care Team Providers Care Flasher Adjuster Name Role Phone Lia Pearson CRAB FISHER Primary Care Provider Allergies Active Allergy Reactions Criticality Noted Date Comments Fluoxetine 03/19/2021 Affected glucose level Mushroom Rash 10/29/2022 Medications Medication Sig Dispensed Refills Start Date End Date Status glucose 4 gram Tablet, Chewable CHEW ONE TABLET BY MOUTH EVERY 10 MIN. NEEDED FOR HYPOGLYCEMIA UNTIL SYMPTOMS OF LOW BLOOD SUGAR ARE CONTROLLED 11/21/2021 Active ferrous gluconate 324 mg (38 mg iron) Tablet Take 324 mg by mouth 2 times daily. 11/22/2021 Active levothyroxine (Synthroid) 200 mcg Tablet Take 200 mcg by mouth Daily. 06/09/2021 Active metFORMIN XR (Glucophage XR) 500 mg Tablet Sustained Release 24 hr Take 1,000 mg by mouth 2 times daily. 10/15/2021 Active BD AutoShield Duo Pen Needle 30 gauge x 16 Needle USE UP TO 5 PEN NEEDLES DAILY 10/31/2021 Active prazosin (Minipress) 5 mg CapsuleIndicatio ns:post traumatic stress disorder Take 10 mg by mouth nightly. Indications: posttraumatic stress syndrome 11/07/2021 Active gabapentin (Neurontin) 300 mg CapsuleIndicatio ns:Type 2 diabetes mellitus with diabetic neuropathy, with long-term current use of insulin Take 1 capsule by mouth 2 times daily. 90 capsule 12/19/2021 Active senna (Senokot) 8.6 mg tablet Take by mouth daily. A ctive doxepin (Silenor) 3 mg tablet Take 6 mg by mouth nightly. 08/12/2022 Active chlorproMAZINE (Thorazine) 200 mg tablet 300 mg. 10/13/2022 Active gabapentin (Neurontin) 300 mg capsule Take 1 capsule by mouth nightly. Takes gabapentin 300 mg in AM and 600 mg in PM 04/14/2022 Active methocarbamoL (Robaxin) 500 mg tablet 01/14/2023 Active rosuvastatin (Crestor) 40 mg tablet Take 1 tablet by mouth nightly. 02/26/2023 Active ARIPiprazole (Abilify) 20 mg tablet TAKE ONE TABLET BY MOUTH EVERY DAY FOR SCHIZOAFFECTIVE DISORDER, BIPOLAR TYPE 02/15/2023 Active chlorproMAZINE (Thorazine) 100 mg tablet 02/18/2023 Active furosemide (Lasix) 20 mg tablet TAKE 1 TO 2 TABLETS BY MOUTH EVERY MORNING 02/09/2023 Active metoprolol succinate XL (Toprol-XL) 100 mg ER 24 hr tablet 03/05/2023 Active traZODone (Desyrel) 150 mg tablet Take 2 tablets by mouth nightly. 06/16/2022 Active hydrOXYzine (Vistaril) 25 mg capsule Take 25 mg by mouth 3 times daily as needed. 05/18/2023 Active acetaminophen (Tylenol) 325 mg tablet Take 2 tablets by mouth every 6 hours as needed for Pain. 06/05/2023 Active ursodioL (Actigall) 300 mg capsule Take 1 capsule by mouth 2 times daily for 180 days. 180 capsule 1 06/17/2023 Active Farxiga 5 mg tablet Take 5 mg by mouth Daily. 06/01/2023 Active polyethylene glycoL (Miralax) 17 gram/dose Powder Take 17 g by mouth daily. 255 g 06/25/2023 Active Additional Information Patient not taking.Reported on 06/25/2023 insulin lispro (HumaLOG) 100 unit/mL Solution Inject SQ 3 times daily before meals as needed for BG over 200 (BG 200-240 2 units, 241-270 3 units, 271-310 4 units) 15 mL 07/14/2023 Active losartan (Cozaar) 100 mg tablet Take 1 tablet by mouth daily. 90 tablet 3 07/14/2023 Active cholecalciferol, Vitamin D3, 50 mcg (2,000 unit) Capsule Take 1 capsule by mouth daily. 60 capsule 2 07/14/2023 Active omeprazole (PriLOSEC) [address] Sarmiento ns:S/P bariatric surgery TAKE 1 CAPSULE BY MOUTH DAILY 28 capsule 11 09/06/2023 Active norethindrone (Aygestin) 5 mg tabletIndication s:Abnormal uterine bleeding (AUB) Take 2 tablets by mouth 3 times daily. 180 tablet 3 11/09/2023 Active Active Problems Problem Noted Date Diagnosed Date Chronic back pain 07/14/2023 Asymptomatic hypertensive urgency 07/12/2023 Morbid obesity 06/03/2023 Cardiomegaly 01/22/2023 Constipation 01/22/2023 Diabetic macular edema 01/22/2023 Dissociative identity disorder 01/22/2023 Heart failure with preserved ejection fraction 0 01/22/2023 Hemorrhagic shock 01/22/2023 Iron deficiency anemia due to chronic blood loss 01/22/2023 Papilledema 01/22/2023 Plantar fasciitis 01/22/2023 Pleural effusion 01/22/2023 ST elevation 01/22/2023 Status post embolization of uterine artery 01/22 Schizoaffective disorder, bipolar type Vaginal bleeding 10/13/2022 Class 3 severe obesity with body mass index (BMI) of 60.0 to 69.9 in adult 02/20/2022 Vitamin D deficiency 02/18/2022 Insomnia 12/19/2021 Essential hypertension, benign 09/26/2021 Overview (11/26/2021): Last Assessment & Plan: BP at goal. Long-term insulin use 09/26/2021 retirement 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 09/26/2021 Mixed hyperlipidemia 02/26/2021 Overview (03/19/2023): Last Assessment & Plan: LDL above goal. Recheck prior to next visit. Last Assessment & Plan: LDL stable. R[place] (obstructive sleep apnea) 02/26/2021 Other specified hypothyroidism 02/26/2021 Overview (11/26/2021): Last Assessment & Plan: TSH stable. PTSD (post-traumatic stress disorder) 02/26/2021 Schizoaffective disorder 02/26/2021 Type 2 diabetes mellitus wit h hyperglycemia, with long-term current use of insulin 02/26/2021 Overview (03/19/2023): Last Assessment & Plan: Controlled A1C 6.2 Congratulated on successful changes! Lots of lows. Increase ozempic 0.5 mg weekly injection. Inject into fatty tissue of thighs or buttocks for less potential side effects. Lower lantus 12 units AM and 13 units PM. Adjust novolog sliding scale: >200 1 units, >300 2 units, before food. Continue Metformin XR 500 mg twice daily. Continue with whitley 2 CGM, swipe 4-5Xday. Encouraged to continue with daily hydration, balance meals and activity daily. Follow-up in 6-8 weeks or sooner with concerns. MALB today. Last Assessment & Plan: Controlled A1C 6.7 Lots of lows. Lower lantus 10 units daily. Adjust novolog sliding scale, given new meal based regimen sheet Continue with jardiance 10 mg daily, ozempic 2 mg weekly injection and Metformin XR 1000 mg twice daily with food. Switch to MyDoc G7 CGM if able, use phone as reader. Discussed apps to download with this. If not able, continue with whitley 2 CGM. Call if having lows <80's!! Keep up with daily hydration, balanced meals and activity daily as able. Follow-up in 3 months or sooner with concerns. Discussed insulin storage and ?using bad insulin that causes the excessive elevations will have intermittently and cause her to use much more insulin than normal. Dissociation 02/26/2021 Resolved Problems Problem Noted Date Diagnosed Date Resolved Date Nausea with vomiting 07/12/2023 024 Von Willebrand disease 01/22/202303/24 Seizure 10/13/2022 10/13/2022 Difficult intubation 022 Overview (03/03/2022): Easy FM and DL (Grade 1 Mac 3) with proper positioning (03/03/2022) Encounters Date Type Department Care Team Description 11/08/2023 Orders Only Obstetrics [place] [address] Angelina Florian, LIN Abnormal uterine bleeding (AUB) 09/02/2023 3:30 PM EDT TH Visit (TeleHealth) [place] [address] Michael Morgan, DO Vaginal bleeding 08/30/2023 Refill [place] [address] Kati Shea PA S/P bariatric surgery from Last 3 Months Family History Medical History Relation Comments Breast Cancer Neg Hx Ovarian Cancer Neg Hx Uterine Cancer Neg Hx Social History Tobacco Use Types Packs/Day Years Used Date Smoking Tobacco: Former Smokeless Tobacco: Never Tobacco Cessation:Counseling Given: Not Answered Alcohol Use Standard Drinks/Week Comments Not Currently 0 (1 standard drink = 0.6 oz pur e alcohol) [facility] Utilities Answer Date Recorded In the past 12 months has th e electric, gas, oil, or water [email or web address] threatened to shut off services in your [...] place to sleep or slept in a [facility] (including now)? No 07/13/2023 IPV Inpatient Questions [...] on file Sexual Orientation Not on file Last Filed Vital Signs Vital Sign Reading [...] Mass Index 62.33 07/12/2023 1:54 AM EST Plan of Treatment Upcoming Encounters Date Type Department Care Team (Late st Contact Info) Description 12/30/2023 2:45 PM EDT TH Visit (TeleHealth) [place] [address] Michael Morgan, [facility] [place] [address] Health Maintenance Due Date Last Done Comments Pneumococcal Vaccine: At-Ris k 5-64yrs (1 of 2 - PCV) 1998 DM Opthalmology Exam 2002 DM Urine Microalbumin yearly 2002 HIV screen 2010 Hepatitis C Screening 2010 Hepatitis B vaccine (0-59 yr s) (1) 2011 Tdap adult 2011 Tetanus vaccine 2011 Covid-19 Vaccine (1 - 2022-2 4 season) 2023 DM Hemoglobin A1c 6 month 01/10/20242023, 10/15/2022, 11/12/2021 Influenza (Flu) vaccine (1 o f 1 - Influenza standard series) 01/16/2024 DM Creatinine yearly 07/14/2024 07/14/2023, 07/13/2023, 07/12/2023, Additional history exists HPV test 03/03/2025 03/03/2022 PAP Smear 03/03/2025 03/03/2022 Lipid Screening Discontinued 07/07/2022, 01/16, 08/15/2021 Goals Goal Patient Goal Type Associated Problems Recent Progress Patient-Stated? Author Other (Enter personal goal) Lifestyle On track( 023 1:14 PM EDT) Riddhi Buchanan RD Note: -Add peanut butter to oatmeal -Continue to add beans to meals as a source of protein and fiber -If can, buy fresh vegetables and fruit from [employer]-sent message with resources -Choose whole grain [...] Note: Practice STOP and Urge Surfing. Health Roof Foreman will send hand-outs. Movement Lifestyle On track( 023 1:14 PM EDT) Riddhi Buchanan RD Note: Continue to walk stairs and walks when can. Will continue using stairs as it's colder. Look into finding weights free online or at [employer]. Could use water-filled milk jugs as weights-a full gallon jug would be 8 lbs. Will look into nearby rec center 04/16/22 Medical Devices Implanted Type Area Motion Picture Camera Operator Device Identifier Shelf Expiration Date Model / Serial / Lot Mirena Implanted:Qty : 1 on 03/03/2022 by Sabrina Swain MD at [facility] IMPLANTS Midline: Uterus [employer]Y - [employer] 11/15/2023 [id number] / [id number] / [id number] Procedures Procedure Name Priority Date/Time Associated Diagnosis Comments BASIC METABOLIC PANEL (NON-FASTING) Routine 07/14/2023 12:31 AM EST HC HEMOGLOBIN A1C Routine 07/12/2023 5:5 8 AM EST C EXTERNAL LABS 2 Routine 07/07/2022 HPV Routine 03/03/2022 8:39 AM EDT VOLLEYBALL REFEREE CYTOLOGY FINAL REPORT Routine 03/03/2022 8:39 AM EDT from Last 3 Months or Most Recently Relevant to Health Maintenance Results * Basic Metabolic Panel (non-fasting) (07/14/2023 12:31 AM EST) Glucose Lvl 100 65 - 199 mg/dL [facility] Comment:Diabetes: >=200 mg/d L plus symptoms BUN 9 8 - 18 mg/dL [facility] Creatinine 0.73 0.70 - 1.20 mg/dL [facility] Sodium 139 135 - 145 mmol/L [facility] Potassium 3.7 3.5 - 5.0 mmol/L [facility] Comment: Please note: ??Patients with WBC >100,000 may have falsely elevated Potassium levels. ??For accurate Potassium quantification in these patients send serum separator tube (gold top) for subsequent determinations. ??Contact the Clinical Chemistry Laboratory if there are any questions. Chloride 104 98 - 107 mmol/L [facility] CO2 26 22 - 31 mmol/L [facility] Anion Gap 9 5 - 15 mmol/L [facility] Calcium 8.9 8.5 - 10.5 mg/dL [facility] Estimated GFR 113 >=60 mL/min/1. 73 m?? [facility] Comment: This patient's estimated GFR was [...] In Lab Gee Contreras MD CHEMISTRY ORDERABLES [facility] [place] [address] * (ABNORMAL) Hemoglobin A1c (07/12/2023 5:58 AM EST) Hemoglobin A1C 7.5(H) 4.3 - 5.6 % [facility] Comment: Reference Range: 4.3 - 5.6% [...] Mellitus, Diabetes Care 2013; 36: Suppl. 1, S67-74 Est Avg Gluc 170 mg/dL [facility] Blood 07/12/2023 5:58 AM EST 07/12/2023 6:37 AM EST Narrative Resulting Agency Comment Spec In Lab Gee Contreras MD CHEMISTRY ORDERABLES [facility] [place] [phone] * (ABNORMAL) [facility] Labs 2 - External (07/07/2022) Pathologist [facility] Chol, Total 162 Triglycerides 132 HDL 44 LDL Cholesterol 92 Glucose Lvl 163(H) Sodium 141 Potassium 4.4 Chloride 105 CO2 26 BUN 15 Creatinine 1.2(H) Estimated GFR 62.45 AST 21 ALT 38 25-OH Vit D Total 14.2(L) TSH 1.6 Hemoglobin 12.3 Hematocrit 39.2 WBC 8.3 Platelets 410(H) 07/07/2022 Historical Provider POINT OF CARE SARAY T ORDERABLES * HPV (03/03/2022 8:39 AM EDT) Pathologist [facility] HPV [address] [facility] HPV [address] [facility] HPV Other HR NEGATIVE NEGATIVE [facility] HPV Interpretation See Comment [facility] Comment: NEGATIVE for high-risk HPV *. ?? *Testing negative for high risk HPV means that high risk HPV DNA is not detected in the specimen for the following 14 types tested: types 16, 18, 31, 33, 35, 39, 45, 51, 52, 56, 58, 59, 66, and 68. The test is not intended to detect low risk HPV types. ?? Method: Maxim cristina HPV test (FDA-approved for clinical use) Specimen: HPV Testing ? Cytology Liquid Based Prep This test is validated for cervical specimens only for use in cervical cancer screening. ??Other uses or specimen types are not validated/recommended. Cervical 03/03/2022 8:39 AM EDT 03/03/2022 11:11 AM EDT Narrative Resulting Agency Comment Spec In Lab Sabrina Swain MD PATHOLOGY/CYTOLOGY O JET [facility] [place] [address] * Photo Intern Cytology Final Report (03/03/2022 8:39 AM EDT) Photo Intern Cytology Final Report [id number] ? Location: [facility]; [facility]; A The signing pathologist has (i) examined the relevant preparation(s) for the specimen(s) and (ii) rendered or confirmed the diagnosis(es). . ? Photo Intern Final DIAGNOSIS Normal Negative for intraepithelial lesion or malignancy (NILM). For consensus guidelines for the management of cervical cancer screening test results, please see: ?? http://www.asccp.o rg . Electronically signed by: ?Alfredito MONTELONGO(ASCP)Sidra Verified: ??03/12/2022 11:33 ??Water Quality Specialist Performed at: ??-[facility] Dept. of Pathology, [place], [place] DISCUSSION Scant cellularity. Partially obscuring blood. HPV RESULTS HPV16 (Result) ?Negative HPV18 (Result) ?Negative HPVOHR (Result) ? Negative HPV (Interpretation) ?See Below HPV (Interpretation) Text: NEGATIVE for high-risk HPV *. *Testing negative for high risk HPV means that high risk HPV DNA is not detected in the specimen for the following 14 types tested: types 16, 18, 31, 33, 35, 39, 45, 51, 52, 56, 58, 59, 66, and 68. The test is not intended to detect low risk HPV types. Method: Maxim cristina HPV test (FDA-approved for clinical use) Specimen: HPV Testing ?? - Cytology Liquid Based Prep This test is validated for cervical specimens only for use in cervical cancer screening. ??Other uses or specimen types are not validated/rec ommended. The Maxim cristina ? HPV test was validated, performed and results reported through the [facility] for Clinical Genomics and Advanced Technology ([facility]) at [facility]. ? - Jeromy Kam, PhD, [facility], Director-[facility] STATEMENT OF ADEQUACY Specimen submitted is satisfactory. Endocervical component present. CLINICAL INFORMATION HPV Option: ?Concurrent HPV and Pap CT/NG Option: ?Yes Preparation: ? Liquid based Pap Specimen Source: ? Cervical/Endocervi qing LMP: ? Unknown Hysterectomy: ?No : ?No : ?No I.U.D.: ?No Pelvic Radiation: ?No Hist Abnl Pap/Biopsy: ?No Prior VOLLEYBALL REFEREE Therapy: ? No . CLINICAL INFORMATION Hist of HPV Vaccine: ? No ICD Diagnosis: ? Z12.4 Encounter for screening for malignant neoplasm of cervix Clinical Data, Significant Therapy and Clinical Impression ?? : ?(not provided) Note: The Pap test is a screening test for cervical cancer with an inherent false-negative rate dependent upon several variables. For further information please contact the [facility] Laboratory. Reference: Paula CLEMENTS. Medical Professionals of Pap Smear Results. In: Aruna BS, Jorge Luis HH, ed. The Pap Smear. [place]: Alexander, 2002: 71-77. [facility] 03/03/2022 8:39 AM EDT Sabrina Swain MD PATHOLOGY/CYTOLOGY O JET [facility] [place] [phone] from Last 3 Months or Most Recently Relevant to Health Maintenance Advance Directives * Attempt Cardiopulmonary Resuscitation - Inpatient (Latest Code Status on File) Date Activated Date Inactivated Comments 07/12/2023 3:01 AM 07/14/2023 5:20 PM Question Answer Comments Code Status decision made by: Patient * Attempt Cardiopulmonary Resuscitation - Inpatient Date Activated Date Inactivated Comments 06/03/2023 9:44 PM 06/05/2023 1:50 PM Question Answer Comments Code Status decision made by: Patient * Attempt Cardiopulmonary Resuscitation - Inpatient Date Activated Date Inactivated Comments 10/13/2022 6:00 PM 10/15/2022 6:40 PM Question Answer Comments Code Status decision made by: Patient * Attempt Cardiopulmonary Resuscitation - Inpatient Date Activated Date Inactivated Comments 03/03/2022 6:45 AM 03/03/2022 2:18 PM Question Answer Comments Code Status decision made by: Patient Care Teams Flasher Adjuster Relationship Specialty Start Date End Date Lia Pearson APRN [address] [place] [id number] PCP - General Geriatric Medicine 02/09/22
--- OUTSIDE RECORDS SUMMARY | 2023-11-26 19:28 | XMS_ITS | Encounter Summary ---
Author Organization [facility] [place] [address] Care Team Providers Care Director Of Medical Review Name Role Phone Lia Pearson APRN Primary Care Provider [phone] Encounter Details Date Type Department Care Team (Late st Contact Info) Description 07/10/2023 4:15 PM EST Ancillary Procedure [place] [id number] Bryon Kelley MD [facility] [place] [address] Social History Tobacco Use Types Packs/Day Years Used Date Smoking Tobacco: Former Smokeless Tobacco: Never Alcohol Use Standard Drinks/Week Comments Not Currently 0 (1 standard drink = 0.6 oz pur e alcohol) [facility] Inpatient Questions Answer Date Recorded Prevent Contact with Others no 12/2023 Feels Threatened by Someone no 12/2023 Feels Unsafe at Home no 06/24/2023 Physical Signs of Abuse Present no 06/24/2023 Sex and Gender Information Value Date Recorded Sex Assigned at Not on file Gender Identity Not on file Sexual Orientation Not on file documented as of this encounter Plan of Treatment Upcoming Encounters Date Type Department Care Team (Late st Contact Info) Description 12/30/2023 2:45 PM EDT TH Visit (TeleHealth) [place] [phone] Michael Morgan, [facility] [place] [address] documented as of this encounter Goals Goal Patient Goal Type Associated Problems Recent Progress Patient-Stated? Author Other (Enter personal goal) Lifestyle On track( 1:14 PM EDT) Riddhi Buchanan RD Note: -Add peanut butter to oatmeal -Continue to add beans to meals as a source of protein and fiber -If can, buy fresh vegetables and fruit from [employer]-sent message with resources -Choose whole grain options if available -When having a snack, focus on protein Bariatric behaviors Lifestyle On track( 1:14 PM EDT) Riddhi Buchanan RD Note: [...] Note: Practice STOP and Urge Surfing. Health Files Supervisor will send hand-outs. Movement Lifestyle On track( 1:14 PM EDT) Riddhi Buchanan RD Note: Continue to walk stairs and walks when can. Will continue using stairs as it's colder. Look into finding weights free online or at [employer] stores. Could use water-filled milk jugs as weights-a full gallon jug would be 8 lbs. Will look into nearby rec center 04/16/22 NATHALIA documented as of this encounter Procedures Procedure Name Priority Date/Time Associated Diagnosis Comments FILM LIBRARY STORAGE ONLY CT CHEST ABDOMEN PELVIS Routine 07/10/2023 4:13 PM EST documented in this encounter Results * Film Library- Storage Only CT Chest Abdomen Pelvis (07/10/2023 4:13 PM EST) Narrative [facility] - 07/10/2023 4:13 PM EST This exam is auto-finalizing. It's purpose is for storage only. Bryon Kelley MD G FILM LIBRARY ORD ERABLES Performing Organization Address City/State/[facility] Co de Phone Number [place], [place] documented in this encounter Visit Diagnoses Not on filedocumented in this encounter Care Teams Director Of Medical Review Relationship Specialty Start Date End Date Lia Pearson APRN [address] [place] [address] PCP - General Geriatric Medicine 02/09/22 documented as of this encounter
--- OUTSIDE RECORDS SUMMARY | 2023-11-26 19:28 | XMS_ITS | Encounter Summary ---
Author Organization [facility] Address [facility] [place] [address] Care Team Providers Care Protocol Manager Name Role Phone Lia Pearson COLOR RECEIVER Primary Care Provider [phone] Encounter Details Date Type Department Care Team (Latest Contact Info) Description 07/12/2023 Travel Social History Tobacco Use Types Packs/Day Years Used Date Smoking Tobacco: Former Smokeless Tobacco: Never Alcohol Use Standard Drinks/Week Comments Not Currently 0 (1 standard drink = 0.6 oz pur e alcohol) [facility] Utilities Answer Date Recorded In the past 12 months has th e electric, gas, oil, or water company threatened [...] place to sleep or slept in a [place] (including now)? No 07/13/2023 IPV Inpatient Questions [...] EDT TH Visit (TeleHealth) [place] [address] Michael Morgan, [facility] [place] [address] documented as of this encounter Goals Goal Patient Goal Type Associated Problems Recent Progress Patient-Stated? Author Other (Enter personal goal) Lifestyle On track( 023 1:14 PM EDT) Riddhi Buchanan RD Note: -Add peanut butter to oatmeal -Continue to add beans to meals as a source of protein and fiber -If can, buy fresh vegetables and fruit from [employer]-sent message with resources -Choose whole grain [...] Note: Practice STOP and Urge Surfing. Health Space Controller will send hand-outs. Movement Lifestyle On track( 023 1:14 PM EDT) Riddhi Buchanan RD Note: Continue to walk stairs and walks when can. Will continue using stairs as it's colder. Look into finding weights free online or at [employer] stores. Could use water-filled milk jugs as weights-a full gallon jug would be 8 lbs. Will look into nearby rec center 04/16/22 NATHALIA documented as of this encounter Visit Diagnoses Not on filedocumented in this encounter Care Teams Protocol Manager Relationship Specialty Start Date End Date Lia Pearson APRN [address] [place] [address] PCP - General Geriatric Medicine 02/09/22 documented as of this encounter
--- OUTSIDE RECORDS SUMMARY | 2023-11-26 19:28 | XMS_ITS | Encounter Summary ---
Author Organization [facility] Address [facility] [place] [address] Care Team Providers Care Chainstitch Binder Name Role Phone GeorgesLia Toribio SCRAP PILER Primary Care Provider [phone] [phone] Encounter Details Date Type Department Care Team (Late st Contact Info) Description 11/08/2023 Orders Only Obstetrics [place] [address] Angelina Florian, CCMA Abnormal uterine bleeding (AUB) Social History Tobacco Use Types Packs/Day Years Used Date Smoking Tobacco: Former Smokeless Tobacco: Never Alcohol Use Standard Drinks/Week Comments Not Currently 0 (1 standard drink = 0.6 oz pur e alcohol) [facility] Utilities Answer Date Recorded In the past 12 months has e electric, gas, oil, or water [employer] threatened to shut off services in your [...] place to sleep or slept in a longterm (including now)? No 07/13/2023 IPV Inpatient Questions [...] EDT TH Visit (TeleHealth) [place] [address] Michael Morgan, [facility] [place] [address] documented as of this encounter Goals Goal Patient Goal Type Associated Problems Recent Progress Patient-Stated? Author Other (Enter personal goal) Lifestyle On track( 023 1:14 PM EDT) Riddhi Buchanan RD Note: -Add peanut butter to oatmeal -Continue to add beans to meals as a source of protein and fiber -If can, buy fresh vegetables and fruit from [employer]-sent message with resources -Choose whole grain [...] Note: Practice STOP and Urge Surfing. Health Concrete Batching Plant Operator will send hand-outs. Movement Lifestyle On track( 023 1:14 PM EDT) Riddhi Buchanan RD Note: Continue to walk stairs and walks when can. Will continue using stairs as it's colder. Look into finding weights free online or at [employer] stores. Could use water-filled milk jugs as weights-a full gallon jug would be 8 lbs. Will look into nearby rec center 04/16/22 NATHALIA documented as of this encounter Visit Diagnoses Diagnosis Abnormal uterine bleeding (AUB) documented in this encounter Care Teams Chainstitch Binder Relationship Specialty Start Date End Date Lia Pearson APRN [address] [place] [address] PCP - General Geriatric Medicine 02/09/22 documented as of this encounter
--- OUTSIDE RECORDS SUMMARY | 2023-11-26 19:28 | XMS_ITS | Encounter Summary ---
Author Organization [place] [address] Care Team Providers Care Traffic Analyst Name Role Phone Lia Pearson APRN Primary Care Provider [phone] Encounter Details Date Type Department Care Team (Late st Contact Info) Description 08/16/2023 Telephone [place] [id number] Sonal Puga, RN Social History Tobacco Use Types Packs/Day Years Used Date Smoking Tobacco: Former Smokeless Tobacco: Never Alcohol Use Standard Drinks/Week Comments Not Currently 0 (1 standard drink = 0.6 oz pur e alcohol) [facility] Utilities Answer Date Recorded In [...] in a longterm (including now)? No 07/13/2023 DH IPV Inpatient [...] encounter Miscellaneous Notes * Telephone Encounter - Sonal Puga RN - 08/16/2023 2:27 PM EDT Received VM from Zenia stating that she has been absoloutley exhiasted for the last 3 weeks and would like to know why. Zenia is s/p: History of Present Illness: Zenia Worley is a 33 y.o. female with h/o IDDM2, morbid obesity s/p lap Lobo-en-Y gastric bypass 06/03/2023 (Trus), hypertension, [place] (on CPAP), hypothyroidism, metabolic syndrome, PTSD, schizoaffective disorder, DID, AUB (on norethindrone), HFpEF. She was transferred from [facility] 07/12/2023 for nausea and vomiting with imaging concerning for stenosis at the GJ and/or JJ anastomosis. Hospital Course: Zenia Worley is a 33 y.o. female who was admitted solution coordinator on 07/12/2023 for the above condition. She [...] be medically ready for discharge to home. Attempted to reach patient. Left w/ callback number Addendum: Spoke with Zenia. She states that for the last 3 weeks she has been extremely lethargic.She explains that she was doing the dishes yesterday and had to sit down to finish the dishes due to being so tired. She denies SOB, fevers or chills. She is tolerating her post surgery diet, meetingher protein intake and drinking roughly 45-50 mL of fluids/day. She is having BM's. Per Zenia, labs were drawn at [facility] in [place], [place] yesterday by her PCP. Her PCP noted protein in her urine indicating some kidney damage. She has been monitoring her blood sugars. Her last reading was 170. I told Zenia that it was normal to feel exhausted after surgery but since her surgery was in May that I would reach out to the team. I also told her we may be able to request her lab results from [facility] and that this may not be related to surgery bit that we would follow up with her to let her know. She is happy with this plan. documented in this encounter Plan of Treatment Upcoming Encounters Date Type Department Care Team (Late st Contact Info) Description 12/30/2023 2:45 PM EDT TH Visit (TeleHealth) [place] [address] Michael Morgan, [facility] [place] [address] documented as of this encounter Goals Goal Patient Goal Type Associated Problems Recent Progress Patient-Stated? Author Other (Enter personal goal) Lifestyle On track( 023 1:14 PM EDT) Riddhi Buhcanan RD Note: -Add peanut butter to oatmeal -Continue to add beans to meals as a source of protein and fiber -If can, buy fresh vegetables and fruit from [employer]-sent message with resources -Choose whole grain [...] Note: Practice STOP and Urge Surfing. Health Veneer Stapler will send hand-outs. Movement Lifestyle On track( 023 1:14 PM EDT) Riddhi Buchanan RD Note: Continue to walk stairs and walks when can. Will continue using stairs as it's colder. Look into finding weights free online or at [employer] stores. Could use water-filled milk jugs as weights-a full gallon jug would be 8 lbs. Will look into nearby rec center 04/16/22 NATHALIA documented as of this encounter Visit Diagnoses Not on filedocumented in this encounter Care Teams Traffic Analyst Relationship Specialty Start Date End Date Lia Pearson APRN [address] [place] [address] PCP - General Geriatric Medicine 02/09/22 documented as of this encounter
--- OUTSIDE RECORDS SUMMARY | 2023-11-26 19:28 | XMS_ITS | Encounter Summary ---
Author Organization [facility] Address [facility] [place] [address] Care Team Providers Care Light Cleaner Name Role Phone Lia Pearson APRN Primary Care Provider [phone] Reason for Visit * Reason Comments Medication Refill Encounter Details Date Type Department Care Team (Late st Contact Info) Description 07/15/2023 Refill Obstetrics [place] [address] Marco Patel MD [facility] DR OBSTETRICS & [place] [address] Abnormal uterine bleeding (AUB) Social History Tobacco Use Types Packs/Day Years Used Date Smoking Tobacco: Former Smokeless Tobacco: Never Alcohol Use Standard Drinks/Week Comments Not Currently 0 (1 standard drink = 0.6 oz pur e alcohol) [facility] Utilities Answer Date Recorded In the past 12 months has [employer], gas, oil, or water [employer] threatened to shut off services in your [...] place to sleep or slept in a snf (including now)? No 07/13/2023 IPV Inpatient Questions [...] EDT TH Visit (TeleHealth) [place] [address] Michael Morgan, [facility] [place] [address] documented as of this encounter Goals Goal Patient Goal Type Associated Problems Recent Progress Patient-Stated? Author Other (Enter personal goal) Lifestyle On track( 023 1:14 PM EDT) No Riddhi Wilson RD Note: -Add peanut butter to oatmeal [...] Note: Practice STOP and Urge Surfing. Health Campus Wellness Coordinator will send hand-outs. Movement Lifestyle On track( 023 1:14 PM EDT) Riddhi Buchanan RD Note: Continue to walk stairs and walks when can. Will continue using stairs as it's colder. Look into finding weights free online or at [employer] stores. Could use water-filled milk jugs as weights-a full gallon jug would be 8 lbs. Will look into nearby rec center 04/16/22 NATHALIA documented as of this encounter Visit Diagnoses Diagnosis Abnormal uterine bleeding (AUB) documented in this encounter Care Teams Light Cleaner Relationship Specialty Start Date End Date Lia Pearson [place] [address] [place] [address] PCP - General Geriatric Medicine 02/09/22 documented as of this encounter
--- OUTSIDE RECORDS SUMMARY | 2023-11-26 19:28 | XMS_ITS | Encounter Summary ---
Author Organization [facility] [place] [address] Care Team Providers Care Metalizing Supervisor Name Role Phone Lia Pearson APRN Primary Care Provider [phone] Encounter Details Date Type Department Care Team (Late st Contact Info) Description 07/26/2023 Telephone [place] [phone] Deneen Campbell, RN Social History Tobacco Use Types Packs/Day Years Used Date Smoking Tobacco: Former Smokeless Tobacco: Never Alcohol Use Standard Drinks/Week Comments Not Currently 0 (1 standard drink = 0.6 oz pur e alcohol) [facility] Utilities Answer Date Recorded In the [...] place to sleep or slept in a mcc (including now)? No 07/13/2023 DH IPV Inpatient [...] encounter Miscellaneous Notes * Telephone Encounter - Deneen Campbell RN - 07/26/2023 9:40 AM EDT Patient called the general surgery clinic nurses line stating she has a question about diet. Pt is s/p Lobo en Y gastric bypass on 06/03/23 and had a readmission from 07/12- 07/14 for nausea and vomiting. During that admission she also had some hypertensive issues and 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 issues. I returned the call to the patient. She states that she knows that she won't feel hungry much but she is wondering about intermittent fasting. I inquired how she has been doing since her admission. She states pretty good. She slowly advanced to Stage 4 diet and is tolerating that well. I asked how she is doing with protein and fluids. She didn't have numbers for me but she feels she is doing well with both. She states that her blood sugars have been good on her new regimen. She states that her BP has been ok. She states it was high the other day, 200/79. She realized that she was stressed at the time. She states that she did some deepbreathing and relaxation techniques and when she checked it about an hour and a half later, her SBPwas 165. She has an appointment with her pinion and wheel truer in August. Her PCP appointment was moved from July to September as her provider is out. Plan: I will discuss the intermittent fasting with the team and one of us will get back to her. I told her to keep monitoring her BP and if it continues to be elevated, she should call her pinion and wheel truer to be seen sooner. Pt verbalizes her understanding and agrees with the plan. Discussed with Deneen Gardiner RD with the bariatric surgery program. Intermittent fasting is not recommended, especially early post-op due to the risk of hypoglycemia. And since she has already had issues with hypoglycemia, is more reason for her not to at this time. She has follow up with the team inMay. I told her that if she still feels strongly about it or has additional questions about it, shecan discuss it with them at that time. Pt verbalizes her understanding and agrees with the plan. documented in this encounter Plan of Treatment Upcoming Encounters Date Type Department Care Team (Late st Contact Info) Description 12/30/2023 2:45 PM EDT TH Visit (TeleHealth) [place] [address] Michael Morgan, [facility] [place] [place] [address] documented as of this encounter Goals Goal [...] Note: Practice STOP and Urge Surfing. Health Portfolio Assistant will send hand-outs. Movement Lifestyle On track( 023 1:14 PM EDT) Riddhi Buchanan RD Note: Continue to walk stairs and walks when can. Will continue using stairs as it's colder. Look into finding weights free online or at [employer] stores. Could use water-filled milk jugs as weights-a full gallon jug would be 8 lbs. Will look into nearby rec center 04/16/22 NATHALIA documented as of this encounter Visit Diagnoses Not on filedocumented in this encounter Care Teams Metalizing Supervisor Relationship Specialty Start Date End Date Lia Pearson APRN [address] [place] [address] PCP - General Geriatric Medicine 02/09/22 documented as of this encounter
--- OUTSIDE RECORDS SUMMARY | 2023-11-26 19:28 | XMS_ITS | Encounter Summary ---
Author Organization [facility] [place] [address] Care Team Providers Care Ferry Hand Name Role Phone Lia Pearson APRN Primary Care Provider [phone] Encounter Details Date Type Department Care Team (Latest Contact Info) Description 06/25/2023 Travel Social History Tobacco Use Types Packs/Day Years Used Date Smoking Tobacco: Former Smokeless Tobacco: Never Alcohol Use Standard Drinks/Week Comments Not Currently 0 (1 standard drink = 0.6 oz pur e alcohol) [facility] Inpatient Questions Answer Date Recorded Prevent Contact [...] EDT TH Visit (TeleHealth) [place] [address] Michael Morgan, [facility] [place] [address] documented as of this encounter Goals Goal Patient Goal Type Associated Problems Recent Progress Patient-Stated? Author Other (Enter personal goal) Lifestyle On track( 023 1:14 PM EDT) Riddhi Buchanan RD Note: -Add peanut butter to oatmeal -Continue to add beans to meals as a source of protein and fiber -If can, buy fresh vegetables and fruit from [employer] market-sent message with resources -Choose whole grain [...] Note: Practice STOP and Urge Surfing. Health Domain Architect will send hand-outs. Movement Lifestyle On track( 023 1:14 PM EDT) Riddhi Buchanan RD Note: Continue to walk stairs and walks when can. Will continue using stairs as it's colder. Look into finding weights free online or at [employer] stores. Could use water-filled milk jugs as weights-a full gallon jug would be 8 lbs. Will look into nearby [facility] 04/16/22 NATHALIA documented as of this encounter Visit Diagnoses Not on filedocumented in this encounter Care Teams Ferry Hand Relationship Specialty Start Date End Date Lia Pearson APRN [address] [place] [address] PCP - General Geriatric Medicine 02/09/22 documented as of this encounter
--- OUTSIDE RECORDS SUMMARY | 2023-11-26 19:28 | XMS_ITS | Encounter Summary ---
Author Organization [facility] Address [facility] [place] [address] Care Team Providers Care Hand Tube Bender Name Role Phone Lia Pearson APRN Primary Care Provider [phone] Reason for Visit * Reason Comments Medication Refill Encounter Details Date Type Department Care Team (Late st Contact Info) Description 08/30/2023 Refill [place] [address] Kati Shea PA [facility] [place] [place] [address] S/P bariatric surgery Social History Tobacco Use Types Packs/Day Years Used Date Smoking Tobacco: Former Smokeless Tobacco: Never Alcohol Use Standard Drinks/Week Comments Not Currently 0 (1 standard drink = 0.6 oz pur e alcohol) [facility] Utilities Answer Date Recorded In the past 12 months has e [employer], gas, oil, or water [employer] threatened to shut off services in your [...] place to sleep or slept in a assisted (including now)? No 07/13/2023 IPV Inpatient Questions [...] EDT TH Visit (TeleHealth) [place] [address] Michael Morgna, [facility] [place] [address] documented as of this encounter Goals Goal [...] Note: Practice STOP and Urge Surfing. Health Quality Review Specialist will send hand-outs. Movement Lifestyle On track( 023 1:14 PM EDT) Riddhi Buchanan RD Note: Continue to walk stairs and walks when can. Will continue using stairs as it's colder. Look into finding weights free online or at [employer] stores. Could use water-filled milk jugs as weights-a full gallon jug would be 8 lbs. Will look into nearby rec center 04/16/22 NATHALIA documented as of this encounter Visit Diagnoses Diagnosis S/P bariatric surgery Bariatric surgery status documented in this encounter Care Teams Hand Tube Bender Relationship Specialty Start Date End Date Lia Pearson APRN [address] [place] [address] PCP - General Geriatric Medicine 02/09/22 documented as of this encounter
--- OUTSIDE RECORDS SUMMARY | 2023-11-26 19:29 | XMS_ITS | Encounter Summary ---
Author Organization [facility] [place] [address] Care Team Providers Care Owner Manager Name Role Phone GeorgesLia Toribio JULIO C Primary Care Provider [phone] Reason for Visit * Reason Comments Follow-up Encounter Details Date Type Department Care Team (Late st Contact Info) Description 06/25/2023 2:00 PM EST Office [place] [address] Asiya Giraldo, [place] [address] Deneen Nicholas, RD [facility] [place] [address] Vitamin D deficiency; S/P gastric bypass; Disorder of iron metabolism; Intestinal malabsorption, unspecified type Social History Tobacco Use Types Packs/Day Years Used Date Smoking Tobacco: Former Smokeless Tobacco: Never Alcohol Use Standard Drinks/Week Comments Not Currently 0 (1 standard drink = 0.6 oz pur e alcohol) [facility] Inpatient Questions Answer Date Recorded Prevent Contact [...] Sign Reading Time Taken Comments Blood Pressure 150/77 06/25/2023 1:52 PM EST Pulse 80 06/25/2023 1:52 PM EST Temperature - - Respiratory Rate 18 06/25/2023 1:52 PM EST Oxygen Saturation 99% 06/25/2023 1:52 PM EST Inhaled Oxygen Concentration - - Weight 176.2 kg (388 lb 6.4 oz) 06/25/2023 1:52 PM EST Height 167.6 cm (5' 6) 06/25/2023 1:52 PM EST Body Mass Index 62.69 06/25/2023 1:52 PM EST documented in this encounter Patient Instructions * Patient Instructions* Asiya Giraldo, ARTIFICIAL MARBLE WORKER - 06/25/2023 2:00 PM EST Bariatric Surgery Program First Post-operative Follow up visit Contact information: [facility] field support specialist: Meghan: [phone] and Irais [phone] Dietitians: [phone] Surgeons/ nurse practitioners: [phone] Nurse line: [phone] Dear Zenia, Thank you for following up with the Bariatric Surgery Program at [facility]. Please review your medical note from today's visit for specific information we discussed. Next follow up visit: at 4 months post-op. Testing: Labwork will be done at your 4 month post-op appointment. The lab orders will be in the system before your visit. The main lab is at [facility] and does not require an appointment. The hours are Wednesday through Wednesday, 6:45 am to 6:00 pm. Here's the link to [facility] Lab hours and locations, in case one of the other locations is more convenient for you: [email or web address] If you have labwork done by your primary doggy daycare activities director before that date, please have a copy sent to the Bariatric Surgery Program. Post surgery Medications: 1. Continue medication to prevent ulcer (likely a PPI like omeprazole) until you are at least 3 months post surgery, or as indicated by your primary care doctor. 2. If you have a gallbladder, continue to take ursodiol for a total of 6 months after surgery to prevent gallstones from forming, and to shrink any gallstones that may be present. Vitamins/Nutrition/Activity Recommendations: Please see your visit note for personalized recommendations General Supplement recommendations: Multivitamins with minerals twice daily- needs to be an under 50 multivitamin that contains iron. Vitamin B12 500 mcg by mouth once daily Calcium citrate 500-600 mg with Vitamin D 400 units twice daily (600 mg in AM and 600 mg in PM- 2 pills twice a day) (or 1 chewable twice a day) Iron supplement: as specified in today's visit Vitamin D: as specified in today's visit General Nutrition recommendations: 1,000-1,200 calories per day (300 calories per meal, 100 calories per snack, 1-2 snacks per day) 60 grams of protein per day (20 grams per meal) 48-64 oz of non-caloric and hydrating fluids per day (6-8, 8 oz cups) Do not drink with meals- pushes food through more quickly, can cause upset stomach Activity: Aim for 30 minutes of exercise daily, 5 days a week of both cardio and strength training exercises. Skinfold care: Cleanse area with soap and water. Blow dry area on low setting with liberal arts and humanities chair. Apply absorbent powder such as Gold Casillas and Desinex Apply cotton strips (such as strips from old sheets) or larger size cotton underwear folded beneathskin folds to act as a wick. Do not apply alvin cloth toweling which can cause further irritation Try combination of over the counter hydrocortisone cream with over the counter antifungal cream such as lotrimin twice a day for 2 weeks. If your symptoms do not improve you may require prescription of anti-fungal cream/powder. Follow up with PCP if symptoms worsen/fail to improve with above strategies. Constipation: Increase fiber, fluids and fitness. Yerba Prima is a fiber supplement that comes in capsule form. Additionally, consider trying 1 capful daily of miralax daily (preferably at night) with a goal of at least 1 BM per day. You can increase the dose as needed every 2-3 days (by adding on 1 capful either morning or night) without safety concerns, noting that individual tolerance becomes limited by loose stools and bloating with doses higher than 2 capfuls twice daily. Please call if you do not have a BM after 3 days. On days with loose stools, we recommend reducing miralax to 1/2 capful daily but continue to take miralax every day Nausea: Common causes for nausea post bariatric surgery are: Eating too fast, eating too much, drinking with meals, or not chewing well enough. Be sure to eat slowly and chew food well. Take at least30 minutes or more to eat a meal. Call if symptoms worsen, fail to improve, or if you have difficulty keeping food or fluid down. Alcohol: is not recommended for at least 6-12 months after surgery. Alcohol is absorbed much fasterand stays in your system much longer post bariatric surgery and as a result there is an increase risk of alcohol misuse/abuse after bariatric surgery. It should be used sparingly, no more than one drink per occasion, no more than 2 drinks a week. Alcohol is toxic to the liver, a source of empty calories, it can cause ulcers, vitamin and mineral deficiencies, as well as impair digestion and absorption of nutrients. Call or follow up with your therapist or primary care provider if you are struggling or think your alcohol intake is a problem. control for women of child bearing age: control is recommended for at least 18-24 months after surgery. f non-prescribed drugs and treet drugs is unsafe Anti-inflammatory medications (NSAIDs) such as Ibuprofen (Advil), Aleve (Naproxen), Excedrin, Nilam[place] should be avoided for at least the first 2 months after surgery. After that they should be used sparingly very sparingly as they increase the risk of ulcer and bleeding. A bone mineral density scan (DEXA) is recommended every 2 years after bariatric surgery. Please schedule this study through your primary care provider's office. Hair Loss: is associated with rapid weight loss and is seen approximately 3 to 6 months after surgery and can last 3 to 6 months. It is almost always temporary. Eating a healthy diet with 60 grams ofprotein per day and taking your multivitamin with minerals will help. Sleep Apnea: If you have a history of sleep apnea and have a CPAP/BiPAP, please be sure to follow up with the sleep center to confirm your pressures and determine if continued use of CPAP/BiPAP is recommended. Potential lifetime risks of gastric bypass include risk of ulcer, which is increased with alcohol and antiinflammatory medications and internal hernia (less than 5%), which may be increased with higher than predicted weight loss. Potential lifetime risks of sleeve gastrectomy include developed heartburn or severe reflux. Call us: If you have concerns. If you have unexplained abdominal pain if you see blood in your stool or vomit blood If you have prolonged vomiting Post Surgery Support Group: Our post surgery support group meets at [facility] on the first Wednesday of every month from 1:00 PM-2:00 PM, call to sign up! Nutrition and Activity apps- Baritastic, My Fitness Pal, Lose It, My Plate Internet resources: www.CustomMade wwweBoox www.2heuresavanteating.Shopitize www.Reasoning [employer] eApplications Ltd..Shopitize/blog [facility] facebook page: https://[email or web address] Books & Magazines: - Recipes for Life After Weight Loss Surgery by Queta Kay - Shrink Yourself by Dr Maycol Hernandez - Eating Well - www.Taqua.Shopitize - Cooking Light- www.cookinglight.Shopitize Anxiety: The Happiness Trap by Nathan Worley The Mindfulness and acceptance workbook for anxiety By Kory Silva. Mindful eating: What are you Hungry For? By Juan Miguel Vidal The Mindful Diet by Grace Duncan and the [facility] group. Emotional eating: End Emotional Eating by Deneen Valentino Calming the Emotional Storm Hollie Waite documented in this encounter Progress Notes * Deneen Nicholas, CORNELIO - 06/25/2023 2:00 PM EST Bariatric Nutrition Follow-up Visit Topics Discussed/Patient Concerns: + constipation: took a dose of over the counter milk of magnesia. Taking senna twice daily and miralax at night if she does not have a BM during the day. Working to increase fluid intake to 64 oz perday. Rec d/w ARTIFICIAL MARBLE WORKER today. Social history: Pt currently unemployed, on disability, has associates degree in [employer]. Lives alone. Social support: friend (Mary) and neighbor (Sheryl) would be main care givers after surgery. 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 Contreras Weight History: Date Weight (lbs) HT BMI Comments 2019 533 Highest Weight 10/13/22 408 Initial program weight 01/26/23 405 66 65.4 1st pre-op visit 02/12/23 406 65.5 2nd pre-op visit 03/24/23 406 65.5 Diet counseling visit 06/03/23 413.2 EWL % Surgery 06/25/23 388.4# 7% 62.7 3 weeks post-op 4 months post-op [place] Body Weight (based on BMI of 25): 155 30-70% Excess Weight Loss: 230-330#; 50% Excess Weight Loss: 280 MEDICATIONS: Medications: taking metformin twice daily. Insulin has been decreased (hasn't needed short acting),12 u long acting twice per day. mounjaro - discontinued Vitamin/Mineral Supplements (reported by patient): pills have been hard because she takes so many Supplement Type Brand/Form Dosage/Amount Frequency Comments Multivitamin Flintstones Complete 2 pills daily Calcium chewable 2 chews daily 1 chew twice daily with meals Vitamin B12 500 mcg daily Iron ?gluconate 1 pill Twice daily (Reported to ARTIFICIAL MARBLE WORKER after RD visit) Vitamin D3 2000 IU Not taking May have to purchase OTC Food Allergies/Intolerances: None. Tracking Intake: Navera Daily Oral Intake: Stage 3. Premier protein daily. Also has power Breakfast Oatmeal OR Singaporean yogurt AM Snack Lunch Chicken soup- chicken broth and vegetables, blended PM Snack Dinner Same as lunch HS Snack Protein- grams/day: ~50 g usually, however past 2 day was about 35 g Hydrating fluids - oz/day: 2 x 16.9 oz bottles. Just bought 64 oz bottle water. Soda: None ETOH: None Caffeine: None. Decaf coffee. Meals per day: Other: Constipation/diarrhea: some constipation. + constipation: took a dose of over the counter milk of magnesia. Taking senna twice daily and miralax at night if she does not have a BM during the day. Working to increase fluid intake to 64 oz per day Presurgery: takes senna daily for constipation Exercise: energy was low at first, but now better. Going on walks. Going to dance class- twice per week. ASSESSMENT: Patient s/p bariatric surgery with 7% EWL. She is tolerating the diet. Still working toward meetingprotein and fluid goals. PLAN: Evaluation by Asiya Giraldo APRN today. Provided support/encouragement and reinforced importance of meeting nutritional goals. Continue Stage 3 diet. Advance to Stage 4 diet starting 5 weeks post-op. Consider adding protein powder to your oatmeal or making oatmeal with milk instead water. Read Stage 3 store list to get ideas of what you can have on this stage. Loose ground meats are OK. Reviewed vitamin and mineral supplement recommendations. Multivitamins with minerals twice daily- needs to be an under 50 multivitamin that contains iron. Vitamin B12 500 mcg by mouth once daily Calcium citrate 500-600 mg with Vitamin D 400 units twice daily (2 pills twice a day or 1 chew twice a day) Calcium citrate chews can be found online: Celebrate or Bariatric Fusion are popular options. - For calcium carbonate: take 1 chew twice per day with meals. Once you finish what you have, switch to calcium citrate. Vitamin D 2000 IU daily Will send pt Ensure Max coupons. Follow-up in 3 months, sooner if requested. * Asiya Giraldo APRN - 06/25/2023 2:00 PM EST [place] [address] Reason for visit: Bariatric Surgery Post Op Check Surgery Info: s/p laparoscopic Lobo-en-Y gastric bypass on 06/03/[address] Contreras. No pathology. Subjective: Zenia Worley is s/p the above procedures, she had evidence of early EDKA on POD#1 which was managed to resolution w/ IV fluids, thought to be attributable to dehydration and jardiance. Since her d/c home she has struggled some with constipation, she has been managing her constipationwith senna twice a day and MOM x 1 dose. She is having BM daily now. Tolerating foods/fluids overall, still learning what foods work better and pacing eating/drinking. She is low on fluids and is doing ok with protein, though some days are better than others. She is tracking, feels that she has a better understanding now. Port sites are healing. Current Supplements:hx of Vit D deficiency Multi-vitamin with minerals/iron twice daily Calcium ? Carbonate - recommended changing to calcium citrate 500/600 mg with Vit D 400 IU twice daily, Vit B12 500 mcg daily Plans to start Vit D3 2,000 IU daily Iron supplement 325 mg twice daily per PCP Primary care post op follow up visit: Has PCP appt 07/21/23. Has been seen by endocrinology. No ED visits/unplanned medical visits since surgery. Pre-Bariatric Surgery Obesity related medical issues: Problem Baseline issue if checked Comments Diabetes/prediabetes/insulin resistance [x] Odd Jardiance and Ozempic, Now on Metformin BID and long acting insulin BID Metabolic syndrome or PCOS [x] Diabetes, blood pressure, waist circumference >35 in. HTN [x] off Laxis. Taking Losartan, Metoprolol GERD [x] On PPI Hyperlipidemia [x] Taking statin [place] [x] Using CPAP Musculoskeletal issues [] Liver Disease [] Other [] Post Bariatric Surgery Medications: Extended VTE prophylaxis post surgery Completed 10 day course of enoxaparin without incident. Post-discharge narcotic analgesic use No longer required. Ursodiol gallstone prophylaxis Taking as directed. PPI ulcer prophylaxis Taking as directed. Contraception IUD scheduled to be placed 07/09/23 ROS: No Fever, chills. One episode of nausea/vomiting after eating/drinking too close together. Has required anti-emetics No Chest pain, SOB or palpitations No bladder concerns or changes. BM as above Energy level is improving Appetite : as expected, trying to meet protein/fluid requirements Activity level : walking/dancing, managing ADLs and chores. Social history/support: Lives alone. She has good support network of friends. Started 6 month work experience- working in [employer]. Health Habits: Tobacco: None. ETOH: No alcohol since before surgery. (Patient with hx alcohol misuse/abuse).. NSAID use: None. 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 Dietary history/ exericse/ activity level: See dietitian note from today's visit for complete dietary evaluation. Visit date Wt (lbs) BMI HT Highest WT 533 - 5'6 Pre-op 10/13/22 408 01/26/23 405 65.4 02/12/23 406 65.7 Post-op WT BMI %EBW lost 06/25/23 388 62.7 7% Objective: BP 150/77 Pulse 80 Resp 18 Ht 167.6 cm (5' 6) Wt (!) 176.2 kg (388 lb 6.4 oz) LMP 06/03/2023 SpO2 99% BMI 62.69 kg/m?? Physical Exam General: Alert, pleasant, NAD, appears well. Abdomen: Soft, non-distended, non-tender. trochar sites are healing nicely. No heat, tenderness or drainage. Resp: No increased work of breathing. Speaking in full sentences. No cough/wheeze witnessed. Skin: excess skin noted over abdomen. Skin is warm and dry. No rash noted on exam today. Fading ecchymosis noted. Psychiatric: Normal mood and affect. Appropriate eye contact. Assessment: Zenia Worley is s/p above procedures, with uneventful early post- operative course. Obesity related co-morbidities are improved/stable overall. Plan: Continue Ursodiol as recommended for 6 months to reduce the risk of gallstone formation during the period of rapid weight loss. Continue PPI therapy until at least 3 months post op to decrease the risk of ulcer formation and avoid NSAIDs. Discussed how to taper down/off. Bowel Function: reviewed bowel regimen and importance of movement and fluids. Recommend BM at leastevery other day. Recommended that she start miralax 1/2 -1 cap daily for maintenance, d/c senna. Call if struggling. Sleep apnea: recommend follow up with sleep center to determine if CPAP settings need to be adjusted. control: advised that control is recommended for at least 18-24 months post-operatively. On progestin now, plans to have IUD place later this month Advised that hair loss due to rapid weight loss is typical 3-6 months post- surgery and should improve with time and adequate protein/ calorie intake. Avoid ETOH until 6-12 months post-operatively, and then should be used in small amounts Discussion re: importance of chewing food completely, taking time to eat, trying to avoid more complex foods at this time, food/fluids etc. See marketing program coordinator note re: recommendations regarding vitamin and mineral supplementation, fluid intake and exercise. RTC in 3 months for next BSP follow up visit, with labs (ordered). Call/rtc sooner prn with questions/concerns or unexplained abdominal pain, prolonged nausea, vomiting or inability to hydrate Bariatric Program Summary report is availabe for patient's review via e- Asiya Giraldo APRN [facility] Bariatric Surgery Program RECOMMENDED BARIATRIC SURGERY PROGRAM POSTOPERATIVE FOLLOW-UP: Follow up: done at 4, 12 and 24 months, and yearly thereafter. High risk patients are evaluated on a more frequent basis. *Supplement recommendations: Multivitamin with minerals twice a day, B12 500 mcg once a day, calcium citrate 600 mg/400 units vitamin D twice a day, iron (ferrous fumarate, carbonyl iron taken with vitamin C 250 mg once a day) for menstruating females or those with ELAINE. Labwork: Hemogram, ferritin, iron (transferrin) saturation, iron, folate, B1, B12, D (25 hydroxy only), Intact PTH and comprehensive metabolic profile at 4, 12 and 24 months, and yearly. If labwork is done by the primary doggy daycare activities director: please send a copy to the Bariatric Surgery Program, General Surgery Clinic, [facility], or fax [phone] documented in this encounter Plan of Treatment Upcoming Encounters Date Type Department Care Team (Late st Contact Info) Description 12/30/2023 2:45 PM EDT TH Visit (TeleHealth) [place] [address] Michael Morgan, [facility] [place] [address] Scheduled Orders Name Type Priority Associated Diagnoses Orde r Schedule Vitamin B1, whole blood Lab Routine Vitamin D deficiency S/P gastric bypass Disorder of iron metabolism Intestinal malabsorption, unspecified type Expected: 09/23/2023 (Approximate), Expires: 12/24/2023 Vitamin D, 25-Hydroxy Lab Routine Vitamin D deficiency S/P gastric bypass Disorder of iron metabolism Intestinal malabsorption, unspecified type Expected: 09/23/2023 (Approximate), Expires: 12/24/2023 PTH Lab Routine Vitamin D deficiency S/P gastric bypass Disorder of iron metabolism Intestinal malabsorption, unspecified type Expected: 09/23/2023 (Approximate), Expires: 12/24/2023 Folate, serum Lab Routine Vitamin D deficiency S/P gastric bypass Disorder of iron metabolism Intestinal malabsorption, unspecified type Expected: 09/23/2023 (Approximate), Expires: 12/24/2023 Ferritin Lab Routine Vitamin D deficiency S/P gastric bypass Disorder of iron metabolism Intestinal malabsorption, unspecified type Expected: 09/23/2023 (Approximate), Expires: 12/24/2023 Iron and TIBC Lab Routine Vitamin D deficiency S/P gastric bypass Disorder of iron metabolism Intestinal malabsorption, unspecified type Expected: 09/23/2023 (Approximate), Expires: 12/24/2023 Comprehensive metabolic panel (non-fasting) Lab Routine Vitamin D deficiency S/P gastric bypass Disorder of iron metabolism Intestinal malabsorption, unspecified type Expected: 09/23/2023 (Approximate), Expires: 12/24/2023 Hemogram Lab Routine Vitamin D deficiency S/P gastric bypass Disorder of iron metabolism Intestinal malabsorption, unspecified type Expected: 09/23/2023 (Approximate), Expires: 06/25/2024 Vitamin B12 Lab Routine Vitamin D deficiency S/P gastric bypass Disorder of iron metabolism Intestinal malabsorption, unspecified type Expected: 09/23/2023 (Approximate), Expires: 12/24/2023 documented as of this encounter Goals Goal Patient Goal Type Associated Problems Recent Progress Patient-Stated? Author Other (Enter personal goal) Lifestyle On track( 023 1:14 PM EDT) No Riddhi Wilson RD Note: -Add peanut butter to oatmeal -Continue to add beans to meals as a source of protein and fiber -If can, buy fresh vegetables and fruit from [employer]-sent message with resources -Choose whole grain options if available -When having a snack, focus on protein Bariatric behaviors Lifestyle On track( 023 1:14 PM EDT) No Riddhi Wilson RD Note: Eating Slowly and taking 20-30 [...] Note: Practice STOP and Urge Surfing. Health Aluminum [employer]older will send hand-outs. Movement Lifestyle On track( 023 1:14 PM EDT) Riddhi Buchanan RD Note: Continue to walk stairs and walks when can. Will continue using stairs as it's colder. Look into finding weights free online or at thrSaveOnEnergy.com stores. Could use water-filled milk jugs as weights-a full gallon jug would be 8 lbs. Will look into nearby rec center 04/16/22 documented as of this encounter Visit Diagnoses Diagnosis Vitamin D deficiency Unspecified vitamin D deficiency S/P gastric bypass Bariatric surgery status Disorder of iron metabolism Other disorders of iron metabolism Intestinal malabsorption, unspecified type documented in this encounter Care Teams Owner Manager Relationship Specialty Start Date End Date Lia Pearson APRN [address] [place] [address] PCP - General Geriatric Medicine 02/09/22 documented as of this encounter
--- OUTSIDE RECORDS SUMMARY | 2023-11-26 19:29 | XMS_ITS | Encounter Summary ---
Author Organization [facility] [place] [address] Care Team Providers Care Verifier Operator Name Role Phone Lia Pearson APRN Primary Care Provider [phone] Encounter Details Date Type Department Care Team (Late st Contact Info) Description 03/24/2023 Telephone Pre[place] [phone] Alyx Velze, RN Social History Tobacco Use Types Packs/Day Years Used Date Smoking Tobacco: Former Smokeless Tobacco: Never Alcohol Use Standard Drinks/Week Comments Not Currently 0 (1 standard drink = 0.6 oz pur e alcohol) Sex and Gender Information Value Date Recorded Sex Assigned at Not on file Gender Identity Not on file Sexual Orientation Not on file documented as of this encounter Progress Notes * Alyx Velez RN - 03/24/2023 3:50 PM EST Phone call to patient per patient request to review medication instructions for surgery 04/07 as she had lost her pre-op booklet and has obtained another booklet. Instructed to hold Jardiance x 3 days-last dose will be 04/03. Hold Mounjaro X 7 days as previously instructed. As she takes it on Saturdays, her last dose will be 03/27. Lantus reduce PM dose by 20% and AM dose by 50%, Patient acknowledged an understanding of theses instructions. documented in this encounter Plan of Treatment Upcoming Encounters Date Type Department Care Team (Late st Contact Info) Description 12/30/2023 2:45 PM EDT TH Visit (TeleHealth) Interventional Radiology at [facility] [place] [address] Michael Morgan, DO [facility] [place] [address] documented as of this encounter Goals Goal Patient Goal Type Associated Problems Recent Progress Patient-Stated? Author Other (Enter personal goal) Lifestyle On track( 023 1:14 PM EDT) No Riddhi Wilson RD Note: -Add peanut butter to oatmeal -Continue to add beans to meals as a source of protein and fiber -If can, buy fresh vegetables and fruit from [employer]-sent message with resources -Choose whole grain [...] Note: Practice STOP and Urge Surfing. Health Synchronizer will send hand-outs. Movement Lifestyle On track( 023 1:14 PM EDT) Riddhi Buchanan RD Note: Continue to walk stairs and walks when can. Will continue using stairs as it's colder. Look into finding weights free online or at [employer] stores. Could use water-filled milk jugs as weights-a full gallon jug would be 8 lbs. Will look into nearby rec center 04/16/22 NATHALIA documented as of this encounter Visit Diagnoses Not on filedocumented in this encounter Care Teams Verifier Operator Relationship Specialty Start Date End Date Lia Pearson APRN [address] [place] [address] PCP - General Geriatric Medicine 02/09/22 documented as of this encounter
--- OUTSIDE RECORDS SUMMARY | 2023-11-26 19:29 | XMS_ITS | Encounter Summary ---
Author Organization [facility] Address [facility] [place] [address] Care Team Providers Care Lead Sql Developer Name Role Phone Lia Pearson APRN Primary Care Provider [phone] Encounter Details Date Type Department Care Team (Late st Contact Info) Description 04/01/2023 Telephone [place] [address] Estella Salomon, RD [facility] [place] [address] Social History Tobacco Use Types Packs/Day Years [...] encounter Miscellaneous Notes * Telephone Encounter - Estella Salomon, CORNELIO - 04/01/2023 8:14 AM EST Called pt in response to [facility] message. Pt states she continues to have difficulty with low BG levels while following the pre-op diet. As a result she has been unable to adhere to the pre-op diet parameters. Pt has been tracking her intake in [employer] rebecca and reports being over the calorie and carbohydrate parameters most days. Pt has appt scheduled with workforce specialist for 04/30/23 to help address low BG. Advised pt to call PCP today for additional support. Pt states she would like to postpone surgery until after her workforce specialist appointment. Will look to schedule surgery for after the New Year. Advised pt that once we have a new surgery date, will will likely need to see her back for a check-in visit prior to surgery. Pt was agreeable tothis plan. documented in this encounter Plan of Treatment Upcoming Encounters Date Type Department Care Team (Late st Contact Info) Description 12/30/2023 2:45 PM EDT TH Visit (TeleHealth) [place] [address] Michael Morgan, [facility] [place] [address] documented as of this encounter Goals Goal Patient Goal Type Associated Problems Recent Progress Patient-Stated? Author Other (Enter personal goal) Lifestyle On track( 023 1:14 PM EDT) Riddhi Buchanan RD Note: -Add peanut butter to oatmeal -Continue to add beans to meals as a source of protein and fiber -If can, buy fresh vegetables and fruit from [employer] market-sent message with resources -Choose whole grain [...] Note: Practice STOP and Urge Surfing. Health [employer] Operator will send hand-outs. Movement Lifestyle On track( 023 1:14 PM EDT) Riddhi Buchanan RD Note: Continue to walk stairs and walks when can. Will continue using stairs as it's colder. Look into finding weights free online or at [employer] stores. Could use water-filled milk jugs as weights-a full gallon jug would be 8 lbs. Will look into nearby rec center 04/16/22 NATHALIA documented as of this encounter Visit Diagnoses Not on filedocumented in this encounter Care Teams Lead Sql Developer Relationship Specialty Start Date End Date Lia Pearson APRN [address] [place] [address] PCP - General Geriatric Medicine 02/09/22 documented as of this encounter
--- OUTSIDE RECORDS SUMMARY | 2023-11-26 19:29 | XMS_ITS | Encounter Summary ---
Author Organization [facility] [place] [address] Care Team Providers Care Electroless Plater Name Role Phone Lia Pearson FINISHING OPERATOR Primary Care Provider [phone] Reason for Visit * Auth/Cert (Routine) Specialty Diagnoses / Procedures Referred By Della kern Referred To Contact Diagnoses Morbid Obesity Procedures PRO GASTRIC BYPASS, OBESE<150CM VERNELL-EN-Y PRO LAP GASTRIC BYPASS/VERNELL-EN-Y @LAPAROSCOPIC GASTROPLASTY W/ VERNELL-EN-Y CONSTRUCTION (WRVU 29.4) Gee Decker MD [facility] [place] [address] [facility] Referral ID Status Reason Start Date Expiration Date Visits Re quested Visits Authorized [id number] 1 1 Encounter Details Date Type Department Care Team (Latest Contact Info) Description 06/03/2023 11:12 AM EST - 06/05/2023 11:47 AM EST Hospital Encounter Surgical Unit Level 4 [place] [address] Gee Decker MD [facility] [place] [address] Discharge Disposition: Home Social History Tobacco Use [...] Sign Reading Time Taken Comments Blood Pressure 142/89 06/05/2023 8:42 AM EST Pulse 95 06/04/2023 12:00 AM EST Temperature 37.1 ??C (98.8 ??F) 06/04/2023 1 1:58 PM EST Respiratory Rate 19 06/05/2023 7:20 AM EST Oxygen Saturation 96% 06/05/2023 8:42 AM EST Inhaled Oxygen Concentration - - Weight 187.4 kg (413 lb 3.2 oz) 06/03/2023 1:25 PM EST Height 165.1 cm (5' 5) 06/03/2023 1:25 PM EST Body Mass Index 68.76 06/03/2023 1:25 PM EST documented in this encounter Discharge Summaries * Cristofer Fish MD - 06/05/2023 7:59 AM EST Images from the original note were not included. Bariatric Surgery Discharge Summary Patient Name: Zenia Worley Patient Age: 33 y.o. : 1990 Attending Physician: Gee Decker MD Date of Admission: 06/03/2023 Date of Discharge: 06/05/23 Primary Diagnosis: Morbid Obesity Secondary Diagnosis: Patient Active Problem List Diagnosis Code Essential hypertension, benign I10 Long-term insulin use Z79.4 skilled nursing 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 Z79.84 [...] disorder, bipolar type F25.0 Morbid obesity E66.01 Operations and Procedures: Procedure(s): @LAPAROSCOPIC GASTROPLASTY W/ VERNELL-EN-Y CONSTRUCTION (WRVU 29.4) Surgeons: Surgeon(s) and Role: * Gee Decker MD - Primary * Cristofer Fish MD - Resident - Assisting * Sebastian Ribeiro MD - Fellow - Assisting History of Present Illness: Zenia Worley is a 33 y.o. female who has been through our Bariatric Surgery Program and has been found eligible for obesity surgery based on NIH criteria. she has gone through the required number of support group meetings and is very familiar with the procedure and alsothe risks and benefits. her pre-operative Body mass index is 68.76 kg/m??. with related comorbidities of HTN, IDDM, metabolic syndrome, . she presents for bariatric surgery. Hospital Course: Zenia Worley is a 33 y.o. female who was admitted on 06/03/2023 postoperatively after a Laparoscopic Vernell en Y Gastric Bypass. Operative course was uneventful, please see operative note for further detail. On POD#1 her diet was advanced from stage 1 to stage 2, which was tolerated well. she received subcutaneous Lovenox for DVT prophylaxis as well as oxycodone for pain control. she was changed to oral pain medications and IV analgesics were discontinued on POD#1. she did not have Carney catheter and was voiding without difficulty for the duration of her admission Prior to discharge on 24 or hospital day 2, patient's pain was well controlled with oral painmedications, she was voiding without difficulty, wounds were intact and healing appropriately, and she was tolerating a Gastric Bypass diet Stage II-Full. Vitals were within normal limits and she wasdetermined medically ready for discharge to home. She had evidence of early EDKA on POD#1 which was managed to resolution w/ IVF. Likely attributableto dehydration and jardiance. Vital Signs Last value Range last 24hrs Temperature Temp: 37.1 ??C (98.8 ??F) Temp: [36 ??C (96.8 ??F)-37.4 ??C (99.3 ??F)] Heart Rate Heart Rate: 95 Heart Rate: -- Blood Pressure BP: (!) 186/125 BP: (153-192)/(80-125) Respiratory Rate Resp: 19 Resp: [18-22] SpO2 SpO2: 94 % SpO2: [93 %-97 %] Pertinent Lab Data: Recent Labs 06/04/23 0520 WBC 12.0* HGB 13.5 HCT 42.0 PLATELET 402* Recent Labs 06/05/23 0528 06/04/23 1405 06/04/23 1205 06/04/23 0520 06/03/23 2255 NA 135 135 134* 135 138 K 4.6 4.8 Not Perf 5.4* 4.5 CL 104 104 103 105 106 CO2 20* 20* 20* 18* 21* BUN 17 19* 19* 17 12 CREATININE 0.88 1.05 0.97 0.98 0.93 GLUCOSE 214* 225* 218* 164 103 CALCIUM 8.7 8.7 8.6 8.9 9.0 MAGNESIUM 0.84 -- 0.81 0.78 -- PHOS 2.3* -- 3.4 3.5 -- Physical Exam: General: AOx3, pleasant, conversant, no acute distress HEENT: normocephalic, atraumatic, PERRLA, anicteric sclerae CVS: RRR on monitor Pulm: breathing comfortably on RA Abd: soft, nontender, non-distended, incisions clean/dry/intact Skin: warm, dry Ext: well perfused, no jaundice or cyanosis, Neuro: CN 2-12 grossly intact, nonfocal, moving all four extremities spontaneously Imaging: SCAN DOC: TELEMETRY STRIPS Result Date: 06/03/2023 Ordered by an unspecified provider. Condition at discharge: Stable Mental Status: awake and alert, oriented x 3 Medications: Your Medications New Medications Dose Details docusate sodium 100 mg capsule Commonly known as: Colace Take 1 capsule by mouth 2 times daily as needed for Constipation. 100 mg Quantity: 20 capsule Refills: 0 enoxaparin 40 mg/0.4 mL Syringe Commonly known as: Lovenox Inject 0.4 mLs subcutaneously 2 times daily for 10 days. 40 mg Quantity: 8 mL Refills: [address] capsule Commonly known as: PriLOSEC Take 1 capsule by mouth daily for 90 days. 40 mg Quantity: 90 capsule Refills: 0 ondansetron ODT 4 mg disintegrating tablet Commonly known as: Zofran-ODT Take 1 tablet by mouth every 8 hours as needed for Nausea. 4 mg Quantity: 20 tablet Refills: 0 oxyCODONE 5 mg/5 mL Solution Commonly known as: Roxicodone Take 5 mLs by mouth every 6 hours as needed for Pain. 5 mg Quantity: 40 mL Refills: 0 ursodioL 300 mg capsule Commonly known as: Actigall Take 1 capsule by mouth 2 times daily for 180 days. Start taking on: June 17, 2023 300 mg Quantity: 180 capsule Refills: 1 Continued medications with new dosing Dose Details acetaminophen 325 mg tablet Commonly known as: Tylenol Take 2 tablets by mouth every 6 hours as needed for Pain. What changed: when to take this 650 mg Refills: 0 polyethylene glycoL 17 gram/dose Powder Commonly known as: Miralax Take 17 g by mouth daily. What changed: when to take this reasons to take this 17 g Quantity: 255 g Refills: 0 Continued medications, unchanged Dose Details ARIPiprazole 20 mg tablet Commonly known as: [...] by mouth nightly. 6 mg Refills: 0 ferrous gluconate 324 mg [...] daily as needed. 25 mg Refills: 0 insulin glargine 100 unit/mL (3 mL) pen Commonly known as: Lantus Inject 10 Units subcutaneously 2 times daily. 10 units in AM & 12 units in PM 10 Units Refills: 0 levothyroxine 200 mcg tablet Commonly known as: Synthroid Take 200 mcg by mouth Daily. 200 mcg Refills: 0 losartan 25 mg tablet Commonly known as: Cozaar Refills: 0 metFORMIN XR 500 mg ER [...] 10 mg Quantity: 180 tablet Refills: 6 NovoLOG Flexpen U-100 Insulin 100 unit/mL (3 mL) Insulin Pen Inject 9 Units subcutaneously 3 times daily (before meals). 35 UNITS THIS AM SLIDING SCALE 9-35 UNITS BID Generic drug: insulin aspart U-100 9 Units Refills: 0 prazosin 5 mg capsule Commonly known as: [...] by mouth nightly. 2 tablet Refills: 0 * This list has 4 medication(s) that are the same as other medications prescribed for you. Read thedirections carefully, and ask your doctor or other care provider to review them with you. STOPPED Medications Jardiance 10 mg tablet Generic drug: empagliflozin Mounjaro 2.5 mg/0.5 mL Pen Injector Generic drug: tirzepatide Disposition: Home Allergies: Allergies Allergen Reactions Fluoxetine Affected glucose level Mushroom Rash Outpatient Services/Studies: No discharge procedures on file. Scheduled Appointments: Future Appointments and Orders Future Appointments and Orders Future Appointments Provider Department Dept Phone 06/25/2023 2:[address]; Asiya Giraldo APRN General Surgery at [facility] Arrive at: [place] [phone] Please dispose of unused excess opioids before your appointment or bring them with you to the appointment and we will help you dispose of them correctly. 07/08/2023 3:45 PM Michael Morgan, DO Interventional Radiology at [facility] Arrive at: [place] [phone] Please do not come in for this visit. Your provider will call you at the number you provided. 07/09/2023 9:20 AM Zay Ferreira APRN Obstetrics and Gynecology at [facility] Arrive at: [place] [phone] 09/24/2023 1:[address]; Asiya Giraldo APRN General Surgery at [facility] Arrive at: [place] [phone] Instructions Given to Patient at Discharge: Patient Instructions Discharge Instructions - Bariatric Surgery NEW PRESCRIPTIONS: automobile assembly supervisor at [facility] today: Lovenox, omeprazole, Zofran (ondansetron), liquid oxycodone, Miralax, Colace automobile assembly supervisor at your home pharmacy: ursodiol HOME MEDICATION PLAN: Wait two weeks to start taking bariatric vitamins No changes, take whole: \ MEDICATIONS: For 2 WEEKS: LARGE pills (bigger than the size of a Skittle or M&M) must be crushed. Large capsules must be opened and put in applesauce or pudding. Please use the size template below to measure your pills. Pills that are the same size or smaller than the template below do not need to be crushed/opened Not all medications can be crushed. Check with your pharmacist if unsure. HOLD bariatric vitamins for 2 weeks after surgery (unless you have one that is chewable or liquid). Size Template: BARIATRIC SUPPORT TEAM CONTACT NUMBERS (Mon-Fri 8am - 5pm): General Surgery and Bariatric Surgery [phone] Bariatric Surgeons: Everton Arredondo Trus [phone] Admin Asst: [phone] Dietitians: [phone] Outside of regular business hours, including weekends and holidays: Ask for General Surgery resident can reconditioner [phone] Please note, this call will be answered by a resident, and they may not be able to return your call for several hours FOR EMERGENCIES: CALL 911 (trouble breathing, chest pain, rapid heart rate >120 beats per minuteor severe abdominal pain) CALL THE BARIATRIC TEAM FOR ANY OF THE FOLLOWING: Signs and symptoms of infection such as: Redness or swelling or new significant drainage from wounds Drainage or bleeding from wounds Fever over 101 degrees Fahrenheit, or shaking chills Persistent diarrhea or vomiting or inability to keep down food or fluids in a 24 hour period Signs / symptoms of a blood clot: leg swelling, redness, pain, shortness of breath Problems with urination or constipation, worsening abdominal pain not controlled with pain medication Any concerns you may have after your surgery Follow up Information: You have a surgical follow up appointment with [facility]ric [facility] ([place] [address], [facility]). Future Appointments Date Time Provider Department Center 06/25/2023 2:00 PM Asiya Giraldo APRN [facility] SURG [facility] 07/08/2023 3:45 PM Michael Morgan, [facility] IR 3V [facility] 07/09/2023 9:20 AM Zay Ferreira APRN [facility] OBG 5L [facility] 09/24/2023 1:00 PM Asiya Giraldo APRN [facility] SURG [facility] WOUND CARE You have steri-strips and Band-Aids over your incisions. You may remove Band- Aids 48 hours after surgery and then shower. Leave the steri-strips (little pieces of skin tape) across the incision and allow them to peel off on their own. If they are still there in 10 days, you may remove them. When you shower, let soap and water run over incisions without scrubbing. Pat dry gently. Some bruising around your incisions is normal. Using ice packs will help minimize this swelling. No swimming or soaking in water (ie. hot tubs or baths) for two weeks. Your stitches will dissolve and do not need to be removed. ACTIVITY, LIFTING AND DRIVING: For laparoscopic surgery, there are no lifting restrictions. Lift when you feel comfortable to do so. Do not drive if you are taking narcotic pain medication. Wait at least two days after surgery to start driving (if not taking narcotic pain medication). When you are no longer taking narcotic pain medication and when it no longer causes pain to get in and out of the vehicle, you may drive when comfortable. DIET: Follow Stage II diet for two weeks. Keep a log of your intake, both for reminders to drink/eat, and to ask questions at your follow up. Daily goals are: 48-64 ounces of fluids and 60 grams of protein. CONSTIPATION: Your goal is at least 1 BM per day. Be sure you are meeting your fluid goals and moving/walking. Take 1 capful of Miralax daily (preferably at night) You can increase the dose as needed every 2-3 days (by adding on 1 capful either morning or night) without safety concerns, noting that individual tolerance becomes limited by loose stools and bloating with doses higher than 2 capfuls twice daily. Please call or send a [employer] message if you do not have a BM after 3 days. On days with loose stools, we recommend reducing Miralax to 1/2 capful daily, but continue to take Miralax every day. If you continue to be constipated after taking Miralax for 1-2 days after surgery, you may add in the following over the counter medication: Take one 100 mg capsule of Colace every day, up to twice daily. BLOOD CLOT PREVENTION: You DO meet scoring criteria and will be discharged on enoxaparin injections twice daily for 10 days after you go home to prevent blood clots. Be active, walk at least 4 times a day and do blood clotprevention exercises in your handbook on page 82. IF YOU ARE TREATED FOR OBSTRUCTIVE SLEEP APNEA: IMPORTANT - you MUST use your CPAP/ BIPAP after surgery while sleeping at night and also when napping during the day because some medications you may have been prescribed at discharge can decrease your breathing. Follow up with the Sleep Center if pressure seems to be too high. ULCER PREVENTION: IMPORTANT - starting the day after discharge, you must take acid suppressing medication for 3 MONTHS after surgery. This is taken to prevent ulcers at your surgical sites internally, even if you do not have heartburn. You will start taking Omeprazole 40 mg daily. Omeprazole capsules contain enteric-coated, delayed-release granules. It is ok to swallow this capsule, but if you choose, you can OPEN the capsules, sprinkle the enteric-coated granules on applesauce or yogurt. Alternatively, you may take the granules with apple juice, or swallow them quickly withwater. Follow any of these methods with additional water to ensure that you have swallowed the granu les completely. If your insurer does not cover omeprazole, or similar medications such as pantoprazole, you must purchase these medications over the counter. You will continue this after the initial 3 month course if you have heartburn or reflux GALLSTONE PREVENTION: If you have had your gallbladder REMOVED - you do not need this medication. If you have your gallbladder after Bariatric Surgery - you must take start taking Ursodiol twice daily for 6 months to prevent gallstones. You may START this medication 2 weeks after surgery for a duration of 6 months. After that, you may stop this medication unless otherwise directed. If you find that this medication costs too much, and/or your insurance will not pay for it, you maybe eligible for assistance to pay for this with [employer]. Go to www.[employer] and put in the prescription and the pharmacy you would like to pick it up from, and you may be able to get the medication at a significantly reduced lu. PATIENTS WITH HIGH BLOOD PRESSURE: Monitor your blood pressure regularly at the same time every day. If your systolic (top number) blood pressure is consistently higher than 140 for several days in a row, please contact your PCP for instructions about restarting blood pressure medication(s). If you need to restart a blood pressure medication after surgery, we would recommend restarting , before restarting any diuretics. If you feel dizzy and have been drinking 48-64 ounces of fluid, have your blood pressure checked. If your blood pressure is low, call your primary care provider. Keep a log to bring to your PCP appointments. PATIENTS ON ANTI-DEPRESSANT OR MENTAL HEALTH MEDICATIONS: Do not stop or decrease your medications unless advised. Ongoing counseling is encouraged. PAIN MEDICATION: Your pain should lessen with each day out from surgery. Over the next couple of days you should be requiring less narcotic medication to control your pain, and eventually you will not need any at all. Take the medication exactly as it is prescribed and make sure to read all instructions that come with the medication. Take only as needed. You may adjunct your pain control using scheduled Tylenol (acetaminophen), use as directed. Do NOT use NSAIDS (ibuprofen, Motrin, Aleve, aspirin, naproxen, etc.) to adjunct your pain control. Opioids can slow reaction time, cause drowsiness or cloud judgement. You MUST NOT DRIVE while taking narcotic pain medication. Taking more than the prescribed amount of narcotic or combining with alcohol or drugs can cause youto stop breathing, leading to coma, brain damage or . Using this drug may cause addiction. While addiction is more common in people with a personal or family history of addiction, it can occur in anyone. Opioids are at risk of being diverted by anyone with access to your home. Opioids should be stored in a safe and secure place, such as a locked cabinet or safe. Unused opioids should be disposed of appropriately. They may be returned to a take-back location, or mixed with a small amount of water and poured over an undesirable waste such as used coffee grounds or cat litter. Opioid pain medications can cause significant constipation. You should use a stool softener such asMiralax to address this. OTHER MEANS FOR PAIN RELIEF: Learn deep breathing exercises or meditation to help you relax Reduce stress Your body produces natural endorphins from exercise which can help reduce pain. Even walking is considered exercise. Talk with your provider/surgical team about what exercises are appropriate for youto perform. You may use a heating pad or apply ice to the painful area unless specifically discouraged by the surgical team. Find ways to distract yourself from the pain. MEDICATIONS TO AVOID FOR TWO MONTHS AFTER SURGERY: Discontinue anti-inflammatory non-steroidal medications, such as Advil, Aleve, ibuprofen, naproxen,etc. Refer to Medications that may increase the risk of bleeding in your handbook. If you do take aspirin for your heart or to prevent strokes, continue as prescribed. WOMEN OF CHILDBEARING AGE: Fertility may increase with weight loss. Avoid for 18-24 months after bariatric surgery. Condoms alone are not acceptable as a form of control. Do not take control pills for the first month after surgery. MANAGEMENT OF DIABETES MELLITUS AFTER BARIATRIC SURGERY: IMPORTANT to check blood sugars four times a day, fasting blood sugars, 2 hours after meals and as needed when feeling unwell. If the Diabetes Team saw you during your hospital stay, they have listed specific recommendations elsewhere in your discharge paperwork. Please refer to their specific diabetes care recommendations. Patients on oral diabetic medication: If blood sugar is over 200 on more than 3 checks, call your primary care physician or diabetic specialist for recommendations. For patients on insulin and oral diabetic medications: If blood sugar is over 200 on 3 checks, call your primary care doctor or diabetic specialist for recommendations. Follow up with primary care provider or bed control specialist in 1-2 weeks in order to adjust your changing diabetes treatment requirements. VITAMIN AND MINERAL SUPPLEMENTATION: START at 2 weeks post surgery Vitamin B12 500 mcg pill daily Complete multivitamin w/ minerals One pill twice daily. If a bariatric specific multivitamin, follow the package directions Calcium Calcium citrate 600 mg with vitamin D 400 units twice a day between meals. Iron with vitamin C Take iron as instructed per Handbook - (only if you have anemia, iron deficiency or regular menses) FOLLOW-UP CARE: It is IMPORTANT to see your Primary Care Physician or PCP within 10-14 days after surgery for woundcheck and vital signs check, and to discuss specific medical management as referenced above. You should follow up with your surgeon and dietitian at 3-4 weeks after surgery. You will follow up with the dietitian and Bariatric nurse practitioner at 4, 12, 18, and 24 months,then yearly for life. General Instructions None Future Appointments and Orders Future Appointments and Orders Future Appointments Provider Department Dept Phone 06/25/2023 2:[address]; Asiya Giraldo APRN General Surgery at [facility] Arrive at: [place] [phone] Please dispose of unused excess opioids before your appointment or bring them with you to the appointment and we will help you dispose of them correctly. 07/08/2023 3:45 PM Michael Morgan, DO Interventional Radiology at [facility] Arrive at: [place] [phone] Please do not come in for this visit. Your provider will call you at the number you provided. 07/09/2023 9:20 AM Zay Ferreira APRN Obstetrics and Gynecology at [facility] Arrive at: [place] 5L [phone] 09/24/2023 1:[address]; Asiya Giraldo APRN General Surgery at [facility] Arrive at: [place] 4L [phone] Signed: Cristofer Fish MD General Surgery PGY-4 [id number] Primary [place] Physician: Lia Pearson APRN [address] [facility] [id number] documented in this encounter Discharge Instructions * Patient Instructions* Cristofer Fish MD - 06/04/2023 2:58 PM EST Images from the original note were not included. Discharge Instructions - Bariatric Surgery NEW PRESCRIPTIONS: automobile assembly supervisor at [facility] today: Lovenox, omeprazole, Zofran (ondansetron), liquid oxycodone, Miralax, Colace automobile assembly supervisor at your home pharmacy: ursodiol HOME MEDICATION PLAN: Wait two weeks to start taking bariatric vitamins No changes, take whole: \ MEDICATIONS: For 2 WEEKS: LARGE pills (bigger than the size of a Skittle or M&M) must be crushed. Large capsules must be opened and put in applesauce or pudding. Please use the size template below to measure your pills. Pills that are the same size or smaller than the template below do not need to be crushed/opened Not all medications can be crushed. Check with your pharmacist if unsure. HOLD bariatric vitamins for 2 weeks after surgery (unless you have one that is chewable or liquid). Size Template: BARIATRIC SUPPORT TEAM CONTACT NUMBERS (Mon-Fri 8am - 5pm): General Surgery and Bariatric Surgery [phone] Bariatric Surgeons: Everton Arredondo, Diane [phone] Admin Asst: [phone] Dietitians: [phone] Outside of regular business hours, including weekends and holidays: Ask for General Surgery resident can reconditioner [phone] Please note, this call will be answered by a resident, and they may not be able to return your call for several hours FOR EMERGENCIES: CALL 911 (trouble breathing, chest pain, rapid heart rate >120 beats per minuteor severe abdominal pain) CALL THE BARIATRIC TEAM FOR ANY OF THE FOLLOWING: Signs and symptoms of infection such as: Redness or swelling or new significant drainage from wounds Drainage or bleeding from wounds Fever over 101 degrees Fahrenheit, or shaking chills Persistent diarrhea or vomiting or inability to keep down food or fluids in a 24 hour period Signs / symptoms of a blood clot: leg swelling, redness, pain, shortness of breath Problems with urination or constipation, worsening abdominal pain not controlled with pain medication Any concerns you may have after your surgery Follow up Information: You have a surgical follow up appointment with The Bariatric Surgery Team in 3 weeks at the [facility] (Roll Former 4L, [facility] [place]). 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 You may remove Band- Aids 48 hours after surgery and then shower. Leave the steri-strips (little pieces of skin tape) across the incision and allow them to peel off on their own. If they are still there in 10 days, you may remove them. When you shower, let soap and water run over incisions without scrubbing. Pat dry gently. Some bruising around your incisions is normal. Using ice packs will help minimize this swelling. No swimming or soaking in water (ie. hot tubs or baths) for two weeks. Your stitches will dissolve and do not need to be removed. ACTIVITY, LIFTING AND DRIVING: For laparoscopic surgery, there are no lifting restrictions. Lift when you feel comfortable to do so. Do not drive if you are taking narcotic pain medication. Wait at least two days after surgery to start driving (if not taking narcotic pain medication). When you are no longer taking narcotic pain medication and when it no longer causes pain to get in and out of the vehicle, you may drive when comfortable. DIET: Follow Stage II diet for two weeks. Keep a log of your intake, both for reminders to drink/eat, and to ask questions at your follow up. Daily goals are: 48-64 ounces of fluids and 60 grams of protein. CONSTIPATION: Your goal is at least 1 BM per day. Be sure you are meeting your fluid goals and moving/walking. Take 1 capful of Miralax daily (preferably at night) You can increase the dose as needed every 2-3 days (by adding on 1 capful either morning or night) without safety concerns, noting that individual tolerance becomes limited by loose stools and bloating with doses higher than 2 capfuls twice daily. Please call or send a Zakada message if you do not have a BM after 3 days. On days with loose stools, we recommend reducing Miralax to 1/2 capful daily, but continue to take Miralax every day. If you continue to be constipated after taking Miralax for 1-2 days after surgery, you may add in the following over the counter medication: Take one 100 mg capsule of Colace every day, up to twice daily. BLOOD CLOT PREVENTION: You DO meet scoring criteria and will be discharged on enoxaparin injections twice daily for 10 days after you go home to prevent blood clots. Be active, walk at least 4 times a day and do blood clotprevention exercises in your handbook on page 82. IF YOU ARE TREATED FOR OBSTRUCTIVE SLEEP APNEA: IMPORTANT - you MUST use your CPAP/ BIPAP after surgery while sleeping at night and also when napping during the day because some medications you may have been prescribed at discharge can decrease your breathing. Follow up with the Sleep Center if pressure seems to be too high. ULCER PREVENTION: IMPORTANT - starting the day after discharge, you must take acid suppressing medication for 3 MONTHS after surgery. This is taken to prevent ulcers at your surgical sites internally, even if you do not have heartburn. You will start taking Omeprazole 40 mg daily. Omeprazole capsules contain enteric-coated, delayed-release granules. It is ok to swallow this capsule, but if you choose, you can OPEN the capsules, sprinkle the enteric-coated granules on applesauce or yogurt. Alternatively, you may take the granules with apple juice, or swallow them quickly withwater. Follow any of these methods with additional water to ensure that you have swallowed the granu les completely. If your insurer does not cover omeprazole, or similar medications such as pantoprazole, you must purchase these medications over the counter. You will continue this after the initial 3 month course if you have heartburn or reflux GALLSTONE PREVENTION: If you have had your gallbladder REMOVED - you do not need this medication. If you have your gallbladder after Bariatric Surgery - you must take start taking Ursodiol twice daily for 6 months to prevent gallstones. You may START this medication 2 weeks after surgery for a duration of 6 months. After that, you may stop this medication unless otherwise directed. If you find that this medication costs too much, and/or your insurance will not pay for it, you maybe eligible for assistance to pay for this with [employer]. Go to www.[employer] and put in the prescription and the pharmacy you would like to pick it up from, and you may be able to get the medication at a significantly reduced lu. PATIENTS WITH HIGH BLOOD PRESSURE: Monitor your blood pressure regularly at the same time every day. If your systolic (top number) blood pressure is consistently higher than 140 for several days in a row, please contact your PCP for instructions about restarting blood pressure medication(s). If you need to restart a blood pressure medication after surgery, we would recommend restarting , before restarting any diuretics. If you feel dizzy and have been drinking 48-64 ounces of fluid, have your blood pressure checked. If your blood pressure is low, call your primary care provider. Keep a log to bring to your PCP appointments. PATIENTS ON ANTI-DEPRESSANT OR MENTAL HEALTH MEDICATIONS: Do not stop or decrease your medications unless advised. Ongoing counseling is encouraged. PAIN MEDICATION: Your pain should lessen with each day out from surgery. Over the next couple of days you should be requiring less narcotic medication to control your pain, and eventually you will not need any at all. Take the medication exactly as it is prescribed and make sure to read all instructions that come with the medication. Take only as needed. You may adjunct your pain control using scheduled Tylenol (acetaminophen), use as directed. Do NOT use NSAIDS (ibuprofen, Motrin, Aleve, aspirin, naproxen, etc.) to adjunct your pain control. Opioids can slow reaction time, cause drowsiness or cloud judgement. You MUST NOT DRIVE while taking narcotic pain medication. Taking more than the prescribed amount of narcotic or combining with alcohol or drugs can cause youto stop breathing, leading to coma, brain damage or . Using this drug may cause addiction. While addiction is more common in people with a personal or family history of addiction, it can occur in anyone. Opioids are at risk of being diverted by anyone with access to your home. Opioids should be stored in a safe and secure place, such as a locked cabinet or safe. Unused opioids should be disposed of appropriately. They may be returned to a take-back location, or mixed with a small amount of water and poured over an undesirable waste such as used coffee grounds or cat litter. Opioid pain medications can cause significant constipation. You should use a stool softener such asMiralax to address this. OTHER MEANS FOR PAIN RELIEF: Learn deep breathing exercises or meditation to help you relax Reduce stress Your body produces natural endorphins from exercise which can help reduce pain. Even walking is considered exercise. Talk with your provider/surgical team about what exercises are appropriate for youto perform. You may use a heating pad or apply ice to the painful area unless specifically discouraged by the surgical team. Find ways to distract yourself from the pain. MEDICATIONS TO AVOID FOR TWO MONTHS AFTER SURGERY: Discontinue anti-inflammatory non-steroidal medications, such as Advil, Aleve, ibuprofen, naproxen,etc. Refer to Medications that may increase the risk of bleeding in your handbook. If you do take aspirin for your heart or to prevent strokes, continue as prescribed. WOMEN OF CHILDBEARING AGE: Fertility may increase with weight loss. Avoid for 18-24 months after bariatric surgery. Condoms alone are not acceptable as a form of control. Do not take control pills for the first month after surgery. MANAGEMENT OF DIABETES MELLITUS AFTER BARIATRIC SURGERY: IMPORTANT to check blood sugars four times a day, fasting blood sugars, 2 hours after meals and as needed when feeling unwell. If the Diabetes Team saw you during your hospital stay, they have listed specific recommendations elsewhere in your discharge paperwork. Please refer to their specific diabetes care recommendations. Patients on oral diabetic medication: If blood sugar is over 200 on more than 3 checks, call your primary care physician or diabetic specialist for recommendations. For patients on insulin and oral diabetic medications: If blood sugar is over 200 on 3 checks, call your primary care doctor or diabetic specialist for recommendations. Follow up with primary care provider or bed control specialist in 1-2 weeks in order to adjust your changing diabetes treatment requirements. VITAMIN AND MINERAL SUPPLEMENTATION: START at 2 weeks post surgery Vitamin B12 500 mcg pill daily Complete multivitamin w/ minerals One pill twice daily. If a bariatric specific multivitamin, follow the package directions Calcium Calcium citrate 600 mg with vitamin D 400 units twice a day between meals. Iron with vitamin C Take iron as instructed per Handbook - (only if you have anemia, iron deficiency or regular menses) FOLLOW-UP CARE: It is IMPORTANT to see your Primary Care Physician or PCP within 10-14 days after surgery for woundcheck and vital signs check, and to discuss specific medical management as referenced above. You should follow up with your surgeon and dietitian at 3-4 weeks after surgery. You will follow up with the dietitian and Bariatric nurse practitioner at 4, 12, 18, and 24 months,then yearly for life. documented in this encounter Medications at Time of Discharge Medication Sig Dispensed Refills Start Date End Date Farxiga 5 mg tablet Take 5 mg by mouth Daily. 06/01/2023 acetaminophen (Tylenol) 325 mg tablet Take 2 [...] in PM 04/14/2022 gabapentin (Neurontin) 300 mg CapsuleIndications:Ty pe 2 diabetes mellitus with diabetic neuropathy, with [...] NEEDLES DAILY 10/31/2021 prazosin (Minipress) 5 mg CapsuleIndications:po st traumatic stress disorder Take 10 mg by mouth nightly. Indications: posttraumatic stress syndrome 11/07/2021 enoxaparin (Lovenox) 40 mg/0.4 mL Syringe Inject 0.4 mLs subcutaneously 2 times daily for 10 days. 8 mL 06/05/2023 06/15/2023 oxyCODONE (Roxicodone) 5 mg/5 mL Solution Take 5 mLs by mouth every 6 hours as needed for Pain. 40 mL 06/05/2023 06/25/2023 docusate sodium (Colace) 100 mg capsule Take 1 capsule by mouth 2 times daily as needed for Constipation. 20 capsule 06/05/2023 06/08/2023 omeprazole (PriLOSEC) [address] capsule Take 1 capsule by mouth daily for 90 days. 90 capsule 06/05/2023 06/08/2023 ondansetron ODT (Zofran-ODT) 4 mg disintegrating tablet Take 1 tablet by mouth every 8 hours as needed for Nausea. 20 tablet 06/05/2023 06/08/2023 polyethylene glycoL (Miralax) 17 gram/dose Powder Take 17 g by mouth daily. 255 g 06/05/2023 06/08/2023 losartan (Cozaar) 25 mg tablet 02/18/2023 07/14/2023 insulin glargine (Lantus) 100 unit/mL (3 mL) pen Inject 10 Units subcutaneously 2 times daily. 10 units in AM & 12 units in PM 01/29/2023 07/14/2023 cholecalciferol, Vitamin D3, 1,250 mcg (50,000 unit) Capsule every week 07/07/20222023 norethindrone (Aygestin) 5 mg tabletIndications:Abn ormal uterine bleeding (AUB) Take 2 tablets by mouth 3 times daily. 180 tablet 6 10/15/2022 07/16/2023 NovoLOG Flexpen U-100 Insulin 100 unit/mL (3 mL) Insulin Pen Inject 9 Units subcutaneously 3 times daily (before meals). 35 UNITS THIS AM SLIDING SCALE 9-35 UNITS BID 11/14/2021 07/14/2023 documented as of this encounter Progress Notes * Gustabo Russ RN - 06/05/2023 11:20 AM EST Patient discharge to home. IVs removed, sites benign. My assessment remains unchanged from my previous assessment. RN Discussed pain management with patient, pain tolerable. Patient medicated prior to discharge. Patient has all belongings and supplies needed. Patient received After Visit Summary and prescriptions. These were reviewed, patient verbalizes understanding of AVS. All questions answered. Patient encouraged to call with questions or concerns. Patient discharged to home with family. * Gustabo Russ RN - 06/05/2023 10:00 AM EST OUTCOME EVALUATION NOTE: OUTCOME SUMMARY: AxO 4, RA. Patient tolerating diet well. Patient instructed on lovenox self- injection and demonstrated admin this AM with RN for D/C. Patient's pain controlled with scheduled and PRN pain medication. Patient cooperative with care andresting between care. No adverse events this shift. VSS. Will continue to monitor and help patient reach d/c goals. PLAN MOVING FORWARD: Pain control Mobilize D/c planning INDIVIDUALIZED FALL PREVENTION: Patient is currently a high risk to Fall. Patient educated on bed/chair alarm, demonstrates proper use of call neal and verbalizes understanding of fall preventions implemented. Patient-specific fall risk factors per assessment: [current deficits]: Pain, Medications, Hospital Environment. Assistance [level of assistance required for transfers and ambulation]: SBA Supervision [direct monitoring required during toileting and ADLs]: Eyes on per unit protocol when OOB/with ADL's Surveillance [continuous indirect monitoring]: Kadeem, Purposeful Rounding, Nurse Knowledge Exchange * Eri Claros RN - 06/05/2023 4:13 AM EST OUTCOME EVALUATION NOTE: OUTCOME SUMMARY: Patient AOx4, VSS on RA, on home CPAP overnight. Denies nausea/vomiting, CP, SOB. Pain controlled w/ scheduled and PRN medications, see MAR. Dressings to abdomen with minimal dried drainage. Patient voiding to BR w/ SBA. 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 Patient sleeping in between care. PLAN MOVING FORWARD: Monitor I/Os, Ambulate, Pain Control, D/C Planning INDIVIDUALIZED FALL PREVENTION INTERVENTIONS: Patient-specific fall risk factors per assessment: [current deficits]: Pain, IV Sites, Hospital Environment Assistance [level of assistance required for transfers and ambulation]: SBA Supervision [direct monitoring required during toileting and ADLs]: Eyes on, Arms Reach Surveillance [continuous indirect monitoring]: Masimo * Gustabo Russ RN - 06/04/2023 6:59 PM EST OUTCOME EVALUATION NOTE: OUTCOME SUMMARY: AxO 4, RA. Patient ambulating independently to BR, voiding spontaneously. Tolerating diet. BP elevated upon arrival, gave scheduled home BP med, BP responded well. PRN added by MD. Patient's pain controlled with scheduled and PRN pain medication. Patient cooperative with care andresting between care. No adverse events this shift. VSS. Will continue to monitor and help patient reach d/c goals. PLAN MOVING FORWARD: Pain control Mobilize D/c planning INDIVIDUALIZED FALL PREVENTION: Patient is currently a high risk to Fall. Patient educated on bed/chair alarm, demonstrates proper use of call neal and verbalizes understanding of fall preventions implemented. Patient-specific fall risk factors per assessment: [current deficits]: Pain, Medications, Hospital Environment. Assistance [level of assistance required for transfers and ambulation]: SBA Supervision [direct monitoring required during toileting and ADLs]: Eyes on per unit protocol when OOB/with ADL's Surveillance [continuous indirect monitoring]: Stellao, Purposeful Rounding, Nurse Knowledge Exchange * Cristofer Fish MD - 06/04/2023 11:44 AM EST INPATIENT DAILY PROGRESS NOTE Patient Name: Zenia Worley Patient Age: 33 y.o. Birthdate: 1990 Admit date: 06/03/2023 Attending Physician: Gee Decker MD ID: Zenia Worley is a 33 y.o. female w/ hx of Class 3 severe obesity, R[place], HTN, hypothyroidism, IDDM, metabolic syndrome, and GERD who is now 1 Day Post-Op following laparoscopic RNY gastric bypass Recent events/symptoms: - Some nausea overnight, improved w/ antiemetics. Pain well controlled. OOB twice to commode - Sipping on various liquids, low volumes - Evidence of possible EDKA on this AM labs. O: Last value Range last 24hrs Temperature Temp: 36 ??C (96.8 ??F) Temp: [36 ??C (96.8 ??F)-37.6 ??C (99.7 ??F)] Heart Rate Heart Rate: 95 Heart Rate: [95-109] Blood Pressure BP: (!) 181/94 BP: (151-181)/(83-106) Respiratory Rate Resp: 22 Resp: [22-37] SpO2 SpO2: 96 % SpO2: [89 %-98 %] Body mass index is 68.76 kg/m??. 06/03 0701 - 06/04 0700 In: 2140 [P.O.:240; I.V.:1800] Out: 437 [Urine:400] Gastric Bypass diet Stage II-Full Intake/Output Summary (Last 24 hours) at 06/04/2023 1145 Last data filed at 06/04/2023 0915 Gross per 24 hour Intake 2910 ml Output 737 ml Net 2173 ml Physical Exam: General: NAD, A&Ox3, resting in bed, cooperative HEENT: NC/AT CVS: RRR Pulm: CTAB, no wheezes or rhonchi, breathing comfortably on CPAP Abd: soft, non-tender, non-distended, no organomegaly, no guarding. Bandages C/D/I Ext: warm and well perfused, no edema Neuro: Grossly intact, nonfocal, moving all four extremities spontaneously. Recent Labs 06/04/23 0520 WBC 12.0* HGB 13.5 HCT 42.0 PLATELET 402* Recent Labs 06/04/23 0520 06/03/23 2255 06/03/23 1400 NA 135 138 140 K 5.4* 4.5 4.3 CL 105 106 105 CO2 18* 21* 24 BUN 17 12 12 CREATININE 0.98 0.93 0.86 GLUCOSE 164 103 59* CALCIUM 8.9 9.0 9.6 MAGNESIUM 0.78 -- -- PHOS 3.5 -- -- ASSESSMENT: Zenia Worley is a 33 y.o. female 1 Day Post-Op s/p LRNYGB. Patient is overall doing well but has evidence of Euglycemic DKA on AM labs and confirmed with Beta-hydroxy butyrate. Given 1L bolus, diabetes team consulted, and medicine consulted - formal recs pending. Continue Bariatric pathway w/ diet advancement today. Recheck labs at noon. Strict I/O PLAN BY SYSTEM N: Crys acetaminophen, gabapentin, abilify, doxepin, prazosin, trazodone. PRN robaxin, oxycodone CV: [place] Pulm: IS, OOB as tolerated, CPAP per home settings GI: Stage 2 diet, PPI, antiemetics /FE: Strict I/O. D5 LR @ 125. 1L bolus this AM. Repeat lytes at 1200. Medicine recs pending for EDKA ID: [place] Heme: Lovenox, SCDs Endo: DM consulted, continue home insulin, D5 LR, Medicine recs pending for EDKA. DISPO: Floor, will need inpatient services for at least 24hours Code status: Full Cristofer Fish MD General Surgery PGY-4 [id number] * Gogo Riley RN - 06/04/2023 11:04 AM EST 0920 Patient ambulated on unit with walker and standby assist 1000 Patient sitting up in chair, no complaints * Paddy Arthur RN - 06/04/2023 6:33 AM EST 2030- Pt arrived in PACU, Monitor alarms on, 6L simple in place Lungs CTA, Lap sites x6 bandaids, VSS, pain tolerable, 0000- Pt OOB to bedside commode able to void, VSS, will monitor 0500- AM labs sent, Pt OOB to commode able to void, VSS will monitor. 0630- Pt lying comfortably, VSS, Pt experiencing PONV throughout the night, antiemtics given service aware, one liter bolus ordered due Inc K+, dec in BiCarb, will monitor * Sarah Laboy MD - 06/04/2023 1:08 AM EST Surgery Post Op Check Operation/Procedure: 06/03/2023 - 06/04/2023 Surgeon(s) and Role: * Gee Decker MD - Primary * Cristofer Fish MD - Resident - Assisting * Sebastian Ribeiro MD - Fellow - Assisting: Procedure(s): @LAPAROSCOPIC GASTROPLASTY W/ VERNELL-EN-Y CONSTRUCTION (WRVU 29.4) Zenia Worley is a 33 y.o. female status post Vernell-en-Y gastric bypass Subjective/Events: Patient denies nausea, vomiting, chest pain, shortness of breath, numbness/weakness. Pain adequately controlled. Offers no complaints. Objective: Temp: [37.2 ??C (99 ??F)-37.6 ??C (99.7 ??F)] Heart Rate: [95-109] Resp: [22-37] BP: (152-180)/(91-106) SpO2: [89 %-98 %] Heart Rate from SpO2: [86 bpm-109 bpm] O2 Device: CPAP I/O this shift: In: 740 [P.O.:240; I.V.:500] Out: 337 [Urine:300; Blood:37] Physical Exam GEN: resting comfortably in bed, pleasant, conversant, NAD HEENT: normocephalic, atraumatic CHEST: comfortable work of breathing on home CPAP CV: regular rate, well perfused ABD: soft, mild tender, nondistended. Incision c/d/I EXTR: moving all extremities spontaneously NEURO: awake and alert, grossly intact, nonfocal, follows commands Assessment and Plan: Zenia Worley is a 33 y.o. female status post above procedure currently in stable condition and recovering well - Patient is doing well postoperatively - Hemodynamically stable - Pain adequately controlled - Diet: Gastric Bypass diet Stage I-Clear Sarah Laboy MD 06/04/2023 Minimally Invasive Surgery, Team Pager [phone] documented in this encounter H&P Notes * Gee Decker MD - 06/03/2023 1:46 PM EST Patient Name: Zenia Worley Patient Age: 33 y.o. Birthdate: 1990 Admit date: 06/03/2023 Attending Physician: Gee Decker MD No change from recent clinic note: Zenia Worley is a 32 y.o.female who is here today for shared medical follow up appointment to discuss bariatric surgery. She has been through our Bariatric Surgery Program and has been found eligable for obesity surgery based on NIH criteria. She has gone through the required number of meetings and is very familiar with the procedure and also the risks and benefits. She has really worked hard atthe changes we suggested. 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 Z79.84 Mixed hyperlipidemia E78.2 R[place] (obstructive sleep apnea) G47.33 Other specified hypothyroidism E03.8 PTSD (post-traumatic stress disorder) F43.10 Schizoaffective disorder F25.9 Type 2 diabetes mellitus with hyperglycemia, with long-term current use of insulin E11.65, Z79.4 Insomnia G47.00 Vitamin D deficiency E55.9 Class 3 severe obesity with body mass index (BMI) of greater than or equal to 70 in adult E66.01, Z68.45 Vaginal bleeding N93.9 Cardiomegaly I51.7 Constipation K59.00 Diabetic macular edema E11.311 Dissociation 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 Heart failure with preserved ejection fraction I50.30 Hemorrhagic shock R57.8 Iron deficiency anemia due to chronic blood loss D50.0 Papilledema H47.10 Plantar fasciitis M72.[address] elevation R94.31 Von Willebrand disease D68.00 Status post embolization of uterine artery Z98.890 Schizoaffective disorder, bipolar type F25.0 Past Medical History Past Medical History: Diagnosis Date Anemia Angina pectoris Asthma Bleeding disorder Cellulitis and abscess of buttock 12/2017 immobilized after panic induce seizure, developed bedsore, flesh eating bacteria, debridement, exposed tailbne, 6 months to heal Chronic anxiety CPAP (continuous positive airway pressure) dependence Diabetes Gastroesophageal reflux High blood pressure Hyperlipidemia Hypothyroid Irregular heart beat Motion sickness Obstructive sleep apnea Spinal paralysis Transfusion history Past Surgical History Past Surgical History: Procedure Laterality Date CHG CYTOPATH,CERV/VAG,AUTO THIN LAYER,INTERP N/A 03/03/2022 PAP SMEAR UNDER ANESTHESIA performed by Sabrina Swain MD at [facility] MAIN OR IR ARTERIAL INTERVENTION 10/13/2022 IR Arterial Intervention 10/13/2022 Pradip Avila MD [facility] INTERVENTIONL RAD PRG ECHOGRAPHY TRANSVAGINAL NON-OB Midline 03/03/2022 ULTRASOUND, TRANSVAGINAL (WRVU 0.69) performed by Sabrina Swain MD at [facility] MAIN OR PRO HYSTEROSCOPY, W/ENDO BX N/A 03/03/2022 HYSTEROSCOPY, SURG W/ENDOMETRIAL SAMPLING, POLYPECTOMY (WRVU 4.74) performed by Sabrina Swain MD [facility] MAIN OR PRO INSERT INTRAUTERINE DEVICE N/A 03/03/2022 INSERTION OF IUD, VAGINAL APPROACH (WRVU 1.01) performed by Sabrina Swain MD at [facility] MAIN OR PRO PELVIC EXAMINATION W ANESTH N/A 03/03/2022 PELVIC EXAM UNDER ANESTHESIA (WRVU 1.75) performed by Sabrina Swain MD at [facility] MAIN OR cholecalciferol, Vitamin D3, 1,250 mcg (50,000 unit) Capsule insulin aspart U-100 (NovoLOG) 100 unit/mL (3 mL) Insulin Pen Lantus Solostar U-100 Insulin 100 unit/mL (3 mL) pen norethindrone (Aygestin) 5 mg tablet senna (Senokot) 8.6 mg tablet doxepin (Silenor) 3 mg tablet chlorproMAZINE (Thorazine) 200 mg tablet gabapentin (Neurontin) 300 mg capsule Jardiance 10 mg tablet acetaminophen (Tylenol) 325 mg Tablet chlorproMAZINE (Thorazine) 50 mg Tablet traZODone (Desyrel) 100 mg Tablet semaglutide (Ozempic) 2 mg/dose (8 mg/3 mL) Pen Injector gabapentin (Neurontin) 300 mg Capsule ARIPiprazole (Abilify) 15 mg Tablet cyanocobalamin, vitamin B-12, 500 mcg Tablet glucose 4 gram Tablet, Chewable ferrous gluconate 324 mg (38 mg iron) Tablet furosemide (Lasix) 40 mg Tablet NovoLOG Flexpen U-100 Insulin 100 unit/mL (3 mL) Insulin Pen levothyroxine (Synthroid) 200 mcg Tablet metFORMIN XR (Glucophage XR) 500 mg Tablet Sustained Release 24 hr metoprolol succinate XL (Toprol-XL) 50 mg Tablet Sustained Release 24 hr BD AutoShield Duo Pen Needle 30 gauge x 3/16 Needle polyethylene glycoL (Miralax) 17 gram/dose Powder prazosin (Minipress) 5 mg Capsule Allergies Allergen Reactions Fluoxetine Affected glucose level Mushroom Rash GEN: NAD HEENT: trachea midline, no scleral icterus PULM: normal respiratory effort CARD: well perfused, stable ABD: soft, non tender, non distended Skin: no rash, no diaphoresis MSH: no gross deformity NEURO: GCS 15 PSYCH: normal mood and affect Her history otherwise is well documented in the workup by Elizabeth García APRN documented in this encounter Miscellaneous Notes * Consult Note - Mackenzie Mcintosh APRN - 06/04/2023 12:35 PM ESTSummary: addition please add second Lantus dose to use 12 units Q 12 hours Please reflect on the consult discussion well below. If her blood sugar stays stable, please use that guidance for discharge planning. Zenia is quite bright, motivated and has an excellent team. Please assure that discharge recommendations are faxed to her endocrine team at [facility] as well as her PCP at [facility] Please ask Dr. Decker/surgery team to consider if and when her GLP may be restarted for diabetes management and communicate this to patient and her at home medical home. Diabetes Management Team Inpatient Consult Date of Consultation: 06/04/2023 Consult Requested by: General Surgery Reason for Consultation: Zenia Worley is a 33 y.o. female with PMH significant for . 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 Diabetes History: Zenia Worley has had diabetes since she was 20 although she was told had preDM at age 16. States was put on metformin and 80 units of Lantus at the time. Within a year was on 90 units shortacting insulin and long acting insulin up to 100 units. States was also on briefly a sulfa at that time. Was living in [facility] where she is from. Moved to [place] 3 years ago. Has needed less insulin over the years and espeically since Current outpatient diabetes regimen: Diabetes Provider: Lisa Yan NP [facility] [place] [facility] - [facility] Endocrinology [address] [place] [address] Lisa Yan NP [address] [facility] [address] [place] [id number] Medications: Jardiance 10 mg PO last taken by accident Wednesday although had stopped taking Wednesday prior Mounjaro weekly (new since December-likes it very much) last dose 2 weeks prior at [facility] from pre op Lantus 17 units in AM and 18 units in PM(this has been reduced even more recently (06/01) by endo team at [facility] in [place] Novolog/humalog (based upon insurance changes) with correction and some carbohydrate counting recently 15-20 units pre meal TID Metformin 1000 XR BID NOW THIS IS FROM [facility] NOTE 01/29/2023: TSH 1.42 (09/2022) Levothyroxine 200 mcg [facility] DM: dad, brother Recent A1C: 6.7 (01/2023) 5.8 (10/2022) 7.6 (05/2022) 8.6 (02/2022) 6.2 (10/2021) 8.4 (08/2021) >14 (05/2021) Diabetic Medications: jardiance 10 mg ozempic 2 mg weekly Metformin XR 1000 mg twice daily lantus 12 units daily novolog SS: avg 4-10 units ye exam current (within one year): [facility] Last dental exam: overdue CVD,PVD,CAD: HLD, HTN Statin: simvastatin 40 mg, LDL 92 (06/2022) Aspirin: no ACEI/ARB: losartan 25 mg 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 Monitoring is done several times a day ) Uses a Freestyle Toshia at home which is not here in hospital Most recent HA1c . Lab Results Component Value Date HA1C 5.8 10/15/2022 Education for diet Nutrition Topics Covered at Today's Appointment: Pre-operative Surgical Diet Purpose of diet Appropriate foods Protein goals Carbohydrate goals Calorie goals Keeping a food log Hydration and Appropriate Beverages Post-Operative Diets (Stages I-IV) Importance of following diet stages Appropriate foods Sample Menus Vitamin/Mineral Supplementation Common Food Intolerances Dumping Syndrome Sugar Alcohols Physical Activity Weight Regain Habits of Successful Bariatric Surgery Patients Typical exercise regimen is stands at work Trouble with hypoglycemia yes-gets signals WAS AD[facility] and one time her airway failed for hypoglycemia when she still lived in [place] Diabetes education: + in the past and in anticipation of her surgery Insulin administration site: arm, abd Compliance with insulin: very diligent Diabetes Complications Status: Eyes: + Kidneys: Component Value Date UABCR 650 (H) 06/18/2022 HGBA1C 5.8 (A) 10/23/2022 . Lab Results Component Value Date NA 135 06/04/2023 K 5.4 (H) 06/04/2023 CL 105 06/04/2023 CO2 18 (L) 06/04/2023 BUN 17 06/04/2023 CREATININE 0.98 06/04/2023 GLUCOSE 164 06/04/2023 CALCIUM 8.9 06/04/2023 ESTGFR 79 06/04/2023 Feet: N+neuropathy--PAIN Sensory: +++tooth pain Autonomic: None Cardiac: HLP, HTN Current Hospital Diabetes Care: Medications: Lispro sensitive sliding scale q 4 hrs Monitoring: q 4 hrs Diet: Vernell en Y GB pathway of soft and small Review of Systems Eyes: Negative. Gastrointestinal: low level does not feel well Endocrine: Negative. Genitourinary: Negative. Neurological: Positive for numbness. 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, developed bedsore, flesh eating bacteria, debridement, exposed tailbne, 6 months to heal Chronic anxiety CPAP (continuous positive airway pressure) dependence Diabetes Gastroesophageal reflux High blood pressure Hyperlipidemia Hypothyroid Irregular heart beat Motion sickness Obstructive sleep apnea Spinal paralysis Transfusion history Current Hospital Medications: insulin glargine (Lantus;Semglee) (100 unit/mL) subcutaneous injection 12 Units Subcutaneous Daily insulin lispro 1-4 Units Subcutaneous Q4H CRYS ARIPiprazole 20 mg Oral Daily doxepin 6 mg Oral Nightly gabapentin 300 mg Oral Daily gabapentin 600 mg Oral Nightly levothyroxine 200 mcg Oral QAM sodium chloride 0.9 % (flush) 5 mL Intravenous BID enoxaparin 40 mg Subcutaneous 2 times per day pantoprazole 40 mg Intravenous Daily ondansetron 4 mg Intravenous Q8H CRYS metoprolol tartrate 50 mg Oral 2 times per day prazosin 10 mg Oral Nightly traZODone 300 mg Oral Nightly norethindrone 10 mg Oral TID acetaminophen 650 mg Oral Q6H CRYS Allergy: Allergies Allergen Reactions Fluoxetine Affected glucose [...] value Range last 24 hrs Temperature Temp: 36 ??C (96.8 ??F) Temp: [36 ??C (96.8 ??F)-37.6 ??C (99.7 ??F)] Heart Rate Heart Rate: 95 Heart Rate: [95-109] Blood Pressure BP: (!) 181/94 BP: (151-181)/(83-106) Respiratory Rate Resp: 22 Resp: [22-37] SpO2 SpO2: 96 % SpO2: [89 %-98 %] Physical Exam: Gen: NAD, talking in clear sentences. Sitting in chair bed comfortably Neuro: Moving all extremities. Grossly non-focal Labs: Assessment: Patient is a 33 y.o. years old female with PMH significant for DM (Last A1C of . Lab Results Component Value Date HA1C 5.8 10/15/2022 ) who was admitted on 06/03/2023 for planned Vernell-en Y surgery. Diabetes suboptimally controlled andcomplicated by accidentally took SGLt-2 and will need not matter what a change in her medication plan. Currently with variability of blood glucose levels while hospitalized requiring adjustment of insulin regimen and DM medications. Thinking about Zenia for here and for when she is getting ready to go home: Zenia does not have type 1 diabetes. She has been told she is a type 2, we know tht she has a c-peptide Euglycemic DKA: She also does not appear to be in euglycemic diabetic ketoacidosis, which can happen to people who are n.p.o. prior to procedure who have any sort of diabetes. Her beta hydroxybutyrate on admission was 0.11, subsequent lab value was 0.54 which is reflective of starvation ketones rather than DKA She has recently been over insulin lysed. This is likely because Mounjaro has a stronger effect on her than her previous GLP-1 medication Ozempic. Basal/Lantus: Her current best dose of basal insulin we believe is 12 units Lantus daily. We believe that using sensitive correction with lispro/NovoLog is her best coverage course every 4 hours while she is in hospital. At home, using bariatric rebecca that she downloaded at the suggestion of the registered dietitian and surgery ,she has discovered her insulin to carb ratio is 1:12. She and I went over what this meant in terms of her sugar-free yogurt that was delivered. For this morningwe are not using insulin to carb ratio but I explained we will be using it for the rest of the hospitalization. She will need to discuss with Dr. Decker's team and Lisa Arciniega endocrine [employer] T[employer]OR when and if she should resume Mounjaro her GLP. Jardiance: When she is eating and drinking well she may restart her Jardiance 10 mg p.o. every morning. This may be done day of discharge as well. Her metformin should not be chosen in the current delivery system. Metformin for her is 1 g p.o. twice daily in the XR form. Metformin must be crushed as she has a gastric bypass bypass patient and put in liquid. 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 We also suggest restarting metformin after gastric bypass surgery added starting dose which is 500 mg p.o. every morning crushed and placed in 2 to 4 ounces of plain water. Use this daily for a week prior to being increased at all. Plan: For hospitalization 1. Lantus 12 units qd given addition please add second Lantus dose to use 12 units Q 12 hours 2. Lispro sensitive sliding scale for BG>140 3. Meal-associated Lispro 1-3 units tid ac (or 1unit: 12 gm carb ratio for each meal and snack) Day of discharge: Please reflect on the consult discussion above. If her blood sugar stays stable, please use that guidance for discharge planning. Zenia is quite bright, motivated and has an excellent team. Please assure that discharge recommendations are faxed to her endocrine team at [facility] as well as her PCP at [facility] Please ask Dr. Decker to consider if and when her GLP may be restarted for diabetes management and communicate this to patient and her at home medical home. Possible Insulin plan for discharge: . Instructions for Ntwice a day Lantus Insulin Inject 12 units LANTUS insulin at 9 PM each night and 12 units in the AM. Start at 12 units tonight. Check blood glucose (BG) before breakfast If the blood glucose before breakfast is over 150 for two days in a row, add TWO units of insulin to the both LANTUS doses. This increased dose becomes your new dose, continue to increase as needed. If the blood glucose before breakfast is UNDER 90 for two days in a row, SUBTRACT TWO units of insulin from both LANTUS doses. This decreased dose becomes your new dose, continue to increase as needed. Instructions for mealtime humalog/novolog insulin Check blood glucose before each meal and snack. We believe your correction factor is 1 unit insulin for every 12 grams of carbs- like you found lately:Inject 2-4 units of humalog for breakfast, lunch and dinner based upon your selection of carbs atthe meal. ADD the following dose if your blood glucose is over 150 at meal time. IF Blood sugar is ___at time of a meal ADD THIS AMOUNT OF humalog INSULIN 150-200 ADD 3 units 201-250 ADD 5 units 251-300 ADD 8 >300 ADD 10 units, drink water and re-check in 2 hours. If blood sugar is < 90 when you eat, decrease the dose by 2 units for that meal. Metformin When you restart the metformin, it will need to be in a plain form and placed in water after it is crushed. Start back at 500 mg daily until you see Lisa. Speak to the pharmacist in person about this when you tow picker new version. Jardiance When you are drinking plenty of water and eating and keeping it down fine, you may restart the Jardiance-possibly in hospital Wednesday Momimi Wait until Dr Decker or Lisa say this is okay to start up Call your doctor for blood sugars under 70 or over 300 twice in one day. Thank you for inviting us to provide care for Zenia .70 minutes of this 80 minute visit was spent with the patient in counseling on diabetes and treatment plan, reviewing all glucose and insulin data as well as relevant laboratory results with the patient, and coordination of care on the inpatient unit * Op Note - Gee Decker MD - 06/03/2023 4:56 PM EST [facility] Operative Note Patient Name: Zenia Worley : [id number] MR#: [id number] Case Date: 06/03/2023 Surgeon: Surgeon(s) and Role: * Gee Decker MD - Primary * Cristofer Fish MD - Resident - Assisting * Sebastian Ribeiro MD - Fellow - Assisting Preoperative diagnosis: Morbid Obesity Postoperative diagnosis: Morbid Obesity Procedure(s) (LRB): @LAPAROSCOPIC GASTROPLASTY W/ VERNELL-EN-Y CONSTRUCTION (WRVU 29.4) (N/A) Anesthesia: General Estimated Blood Loss: 37 ml Specimens removed during surgery: None Drains: * No LDAs found * Surgical Closure: Primary Closure - skin incision is completely closed without any wires, kellee, drains or other devices Disposition: awakened from anesthesia, extubated and taken to the recovery room in a stable condition, having suffered no apparent untoward event. Condition: doing well without problems (Please see the Surgical Encounter Summary for any Implant and Specimen details pertinent to this patient.) Indications: This 33 y.o. female presented to the Bariatric Program with a history of weight-related problems including significant weight-related comorbidities. She meets the NIH criteria for gastric bypass. The risks and benefits of the procedure were explained and she chose to undergo this procedure laparoscopically. Under general anesthesia and endotracheal intubation, the patient was prepped and draped in the supine position. The abdomen was entered using the Robotoki trocar system. The 10-mm port was placed approximately 15 cm below the xiphoid from the left of midline. A 45-degree telescope was inserted, and under direct vision, two 5-mm ports were placed in the left upper quadrant forming the first arm of a V with the scope at the apex. Several adhesions were taken down with sharp dissection. A 12 mm port was placedapproximately 15-cm along the right costal margin, through which a liver retractor was placed and used to elevate the left lobe of the liver, thus exposing the hiatal region. This was fixed in good position using the mechanical arm. A 5-mm port was placed approximately 10 cm along the right costal margin and a 12- mm port was placed approximately 4 cm below this. A small window was made along the vasculature of the lesser curve, approximately 5 cm from the hiatus. Eventually, the vasculature was from the lesser curve and the posterior, lesser sac was entered. The hiatal region was freed up of some attachments to the diaphragm, thus exposing the left levar. A firing of an power stapler with a 60 mm purple load in a transverse direction across the stomach was performed. The stapler was then fired multiple times until a small narrow pouch was created. The pouch accommodated a volume of approximately 20 cc to 30 cc. Adhesions between the omentum and lower anterior abdominal wall were taken down using sharp dissection. The omentum and transverse colon reflected cephalad. The ligament of Treitz was identified and dissection was carried along approximately 40 cm from the ligament of Treitz. A small window was made in the small bowel mesentery and a stapler was introduced through this to divide the small bowel using a 60 mm peralta load. The harmonic scalpel was used to divide the mesentery for a Vernell limb. At a point approximately 150 cm, the distal bowel was chosen to create the xeat-et-oskg jejunojejunostomy. The duodenal, afferent limb was approximated to the side wall of the jejunum at the 150-cm anne. Enterotomies were made in both and a single firing of a 60 mm peralta load was used to create anastomosis. The resultant defect was sewn in two layers of running 2-0 Surgilon suture. A split was made in the omentum just above the transverse colon and the Vernell limb fed through this. Two stay stitches in the side wall of the Vernell limb were approximated to the end of the gastric pouch. An enterotomy was made in the gastric pouch and the jejunostomy and a partial-length firing of the 45 mm peralta load stapler was used to create the anastomosis between this pouch and the jejunum. The resultant enterotomy defect was closed with a running 2- 0 Surgilon suture in two layers with a 30 Lithuanian Bougie (blunt-tipped) in place. The Bougie was then removed and the Vernell limb clamped with a bowel clamp. The endoscope was introduced and the pouch and anastomosis was insufflated under saline. Inspection of the anastomosis did not reveal any leak. It appeared to be patent and allowed passage of an endoscope without resistance. The jejuno-jejunostomy mesenteric defect and Ruiz's defect were then closed with a running 3-0 V-lock suture. All ports were then removed under direct vision and the skin was closed with running subcuticular 4-0 Monocryl suture, followed by Steri- Strips and Band-aids. The patient returned to the Recovery Room in stable conditions. Sponge, instrument and needle counts were correct. Attestation: Case Date: 06/03/2023 I was present and I participated during the entire procedure (does not need to include opening and closing). GEE DECKER MD 06/03/2023 documented in this encounter Plan of Treatment Upcoming Encounters Date Type Department Care Team (Late st Contact Info) Description 12/30/2023 2:45 PM EDT TH Visit (TeleHealth) [place] [phone] Michael Morgan, [facility] [place] [address] documented as of this encounter Goals Goal Patient Goal Type Associated Problems Recent Progress Patient-Stated? Author Other (Enter personal goal) Lifestyle On track( 023 1:14 PM EDT) Riddhi Buchanan RD Note: -Add peanut butter to oatmeal -Continue to add beans to meals as a source of protein and fiber -If can, buy fresh vegetables and fruit from [employer]-sent message with resources -Choose whole grain [...] Note: Practice STOP and Urge Surfing. [employer] will send hand-outs. Movement Lifestyle On track( 023 1:14 PM EDT) Riddhi Buchanan, RD Note: Continue to walk stairs and walks when can. Will continue using stairs as it's colder. Look into finding weights free online or at [employer] stores. Could use water-filled milk jugs as weights-a full gallon jug would be 8 lbs. Will look into nearby rec center 04/16/22 NATHALIA documented as of this encounter Procedures Procedure Name Priority Date/Time Associated Diagnosis Comments POCT GLUCOSE Routine 06/05/2023 7:55 AM EST LAVENDER TUBE HOLD Routine 06/05/2023 5: 28 AM EST HC C PEPTIDE Routine 06/05/2023 5:28 AM EST HC PHOSPHORUS, SERUM Routine 06/05/2023 5:28 AM EST HC MAGNESIUM, SERUM Routine 06/05/2023 5 :28 AM EST BASIC METABOLIC PANEL (NON-FASTING) Routine 06/05/2023 5:28 AM EST POCT GLUCOSE Routine 06/05/2023 3:51 AM EST POCT GLUCOSE Routine 06/04/2023 11:58 PM EST POCT GLUCOSE Routine 06/04/2023 7:51 PM EST POCT GLUCOSE Routine 06/04/2023 4:42 PM EST HC BETA-HYDROXYBUTYRIC ACID STAT 06/04/2023 2:05 PM EST BASIC METABOLIC PANEL (NON-FASTING) STAT 06/04/2023 2:05 PM EST HC PHOSPHORUS, SERUM Routine 06/04/2023 12:05 PM EST HC MAGNESIUM, SERUM Routine 06/04/2023 1 2:05 PM EST BASIC METABOLIC PANEL (NON-FASTING) Routine 06/04/2023 12:05 PM EST POCT GLUCOSE Routine 06/04/2023 11:44 AM EST POCT GLUCOSE Routine 06/04/2023 10:24 AM EST _URINALYSIS WITH MICROSCOPIC Routine 06/04/2023 9:15 AM EST POCT GLUCOSE Routine 06/04/2023 7:15 AM EST HEMOGRAM Routine 06/04/2023 5:20 AM EST DIFFERENTIAL, AUTOMATED Routine 06/04/19 5:20 AM EST BETA HYDROXYBUTYRATE Routine 06/04/2023 5:20 AM EST HC CBC,PLT & AUTO DIFF Routine 5:20 AM EST HC PHOSPHORUS, SERUM Routine 06/04/2023 5:20 AM EST HC MAGNESIUM, SERUM Routine 06/04/2023 5 :20 AM EST BASIC METABOLIC PANEL (NON-FASTING) Routine 06/04/2023 5:20 AM EST BASIC METABOLIC PANEL (NON-FASTING) STAT 06/03/2023 10:55 PM EST POCT GLUCOSE Routine 06/03/2023 8:27 PM EST POCT GLUCOSE Routine 06/03/2023 7:41 PM EST POCT GLUCOSE Routine 06/03/2023 7:11 PM EST Lap Gastric Bypass/Vernell-En-Y ([id number]) 06/03/2023 4:05 PM EST Morbid Obesity POCT GLUCOSE Routine 06/03/2023 2:32 PM EST BLOOD GAS 2 ARTERIAL Routine 06/03/2023 2:10 PM EST POCT GLUCOSE Routine 06/03/2023 2:05 PM EST HC BETA-HYDROXYBUTYRIC ACID STAT 06/03/2023 2:00 PM EST BASIC METABOLIC PANEL (NON-FASTING) STAT 06/03/2023 2:00 PM EST POCT GLUCOSE Routine 06/03/2023 1:42 PM EST POCT GLUCOSE Routine 06/03/2023 1:14 PM EST LAPAROSCOPIC GASTROPLASTY, G\SURG Routine 06/03/2023 1:10 PM EST documented in this encounter Results * (ABNORMAL) POCT Glucose (06/05/2023 7:55 AM EST) POC Glucose 203(H) 65 - 199 mg/dL [facility] Comment: Supplemental ranges: <140 mg/dL before meals <180 mg/dL all other times of the day Blood 06/05/2023 7:55 AM EST 06/05/2023 7:55 AM EST Gee Decker MD POINT OF CARE TEST O RDERABLES Performing Organization Address [facility] Co de Phone Number [facility] [place] [address] * Lavender Tube HOLD (06/05/2023 5:28 AM EST) Lavender Hold Sample in lab. [facility] Blood Venous Draw / Unknown 06/05/2023 5:28 AM EST 06/05/2023 5:56 AM EST Cristofer Fish MD HEMATOLOGY ORDERABLE S Performing Organization Address [facility] Co de Phone Number [facility] [place] [address] * C-peptide (06/05/2023 5:28 AM EST) C-Peptide 2.0 1.1 - 4.4 ng/mL [facility] Comment:Reference intervals derived from fasting individuals Blood 06/05/2023 5:28 AM EST 06/05/2023 5:53 AM EST Narrative Resulting Agency Comment Spec In Lab Gee Decker MD CHEMISTRY ORDERABLES Performing Organization Address [facility] Co de Phone Number [facility] [place] [address] * (ABNORMAL) Phosphorus (06/05/2023 5:28 AM EST) Phosphorus 2.3(L) 2.5 - 4.5 mg/dL [facility] Blood 06/05/2023 5:28 AM EST 06/05/2023 5:53 AM EST Narrative Resulting Agency Comment Spec In Lab Gee Decker MD CHEMISTRY ORDERABLES Performing Organization Address [facility] Co de Phone Number [facility] [place] [address] * Magnesium (06/05/2023 5:28 AM EST) Magnesium 0.84 0.69 - 1.07 mmol/L [facility] Blood 06/05/2023 5:28 AM EST 06/05/2023 5:53 AM EST Narrative Resulting Agency Comment Spec In Lab Gee Decker MD CHEMISTRY ORDERABLES Performing Organization Address [facility] de Phone Number [facility] [place] [address] * (ABNORMAL) Basic Metabolic Panel (non-fasting) (06/05/2023 5:28 AM EST) Glucose Lvl 214(H) 65 - 199 mg/dL [facility] Comment:Diabetes: >=200 mg/d L plus symptoms BUN 17 8 - 18 mg/dL [facility] Creatinine 0.88 0.70 - 1.20 mg/dL [facility] Sodium 135 135 - 145 mmol/L [facility] Potassium 4.6 3.5 - 5.0 mmol/L [facility] Comment: Please note: ??Patients with WBC >100,000 may have falsely elevated Potassium levels. ??For accurate Potassium quantification in these patients send serum separator tube (gold top) for subsequent determinations. ??Contact the Clinical Chemistry Laboratory if there are any questions. Chloride 104 98 - 107 mmol/L [facility] CO2 20(L) 22 - 31 mmol/L [facility] Anion Gap 11 5 - 15 mmol/L [facility] Calcium 8.7 8.5 - 10.5 mg/dL [facility] Estimated GFR 90 >=60 mL/min/1. 73 m?? [facility] Comment: This patient's estimated GFR [...] and symptoms in addition to eGFR. Blood 06/05/2023 5:28 AM EST 06/05/2023 5:53 AM EST Narrative Resulting Agency Comment Spec In Lab Gee Decker MD CHEMISTRY ORDERABLES Performing Organization Address City/[facility]/ZIP Co de Phone Number [facility] [place] [address] * POCT Glucose (06/05/2023 3:51 AM EST) POC Glucose 175 65 - 199 mg/dL [facility] Comment: Supplemental ranges: <140 mg/dL before meals <180 mg/dL all other times of the day Blood 06/05/2023 3:51 AM EST 06/05/2023 3:51 AM EST Gee Decker MD POINT OF CARE TEST O RDERABLES Performing Organization Address City/[facility]/ZIP Co de Phone Number [facility] [place] [address] * POCT Glucose (06/04/2023 11:58 PM EST) POC Glucose 178 65 - 199 mg/dL [facility] Comment: Supplemental ranges: <140 mg/dL before meals <180 mg/dL all other times of the day Blood 06/04/2023 11:5 8 PM EST 06/04/2023 11:58 PM EST Gee Decker MD POINT OF CARE TEST O JET Performing Organization Address City/[facility]/ZIP Co de Phone Number [facility] [place] [address] * POCT Glucose (06/04/2023 7:51 PM EST) POC Glucose 195 65 - 199 mg/dL [facility] Comment: Supplemental ranges: <140 mg/dL before meals <180 mg/dL all other times of the day Blood 06/04/2023 7:51 PM EST 06/04/2023 7:51 PM EST Gee Decker MD POINT OF CARE TEST Jeanna CHAUDHARY Performing Organization Address [facility] Co de Phone Number [facility] [place] [address] * POCT Glucose (06/04/2023 4:42 PM EST) POC Glucose 176 65 - 199 mg/dL [facility] Comment: Supplemental ranges: <140 mg/dL before meals <180 mg/dL all other times of the day Blood 06/04/2023 4:42 PM EST 06/04/2023 4:42 PM EST Gee Decker MD POINT OF CARE TEST O JET Performing Organization Address City/[facility] Co de Phone Number [facility] [place] [address] * Beta Hydroxybutyrate (06/04/2023 2:05 PM EST) BOHB 0.20 0.00 - 0.30 mmol/L [facility] Comment: This test has not been cleared by the [place] FDA. Performance characteristics of this test were determined by [facility] in accordance with CLIA requirements. This laboratory is qualified under CLIA to perform high-complexity testing. Blood 06/04/2023 2:05 PM EST 06/04/2023 2:17 PM EST Narrative Resulting Agency Comment Spec In Lab Gee Decker MD CHEMISTRY ORDERABLES [facility] [place] [address] * (ABNORMAL) Basic Metabolic Panel (non-fasting) (06/04/2023 2:05 PM EST) Glucose Lvl 225(H) 65 - 199 mg/dL [facility] Comment:Diabetes: >=200 mg/d L plus symptoms BUN 19(H) 8 - 18 mg/dL [facility] Creatinine 1.05 0.70 - 1.20 mg/dL [facility] Sodium 135 135 - 145 mmol/L [facility] Potassium 4.8 3.5 - 5.0 mmol/L [facility] Comment: Please note: ??Patients with WBC >100,000 may have falsely elevated Potassium levels. ??For accurate Potassium quantification in these patients send serum separator tube (gold top) for subsequent determinations. ??Contact the Clinical Chemistry Laboratory if there are any questions. Chloride 104 98 - 107 mmol/L [facility] CO2 20(L) 22 - 31 mmol/L [facility] Anion Gap 11 5 - 15 mmol/L [facility] Calcium 8.7 8.5 - 10.5 mg/dL [facility] Estimated GFR 73 >=60 mL/min/1. 73 m?? [facility] Comment: This patient's estimated GFR [...] and symptoms in addition to eGFR. Blood 06/04/2023 2:05 PM EST 06/04/2023 2:17 PM EST Narrative Resulting Agency Comment Spec In Lab Gee Decker MD CHEMISTRY ORDERABLES Performing Organization Address [facility] Co de Phone Number [facility] [place] [address] * Phosphorus (06/04/2023 12:05 PM EST) Phosphorus 3.4 2.5 - 4.5 mg/dL [facility] Blood 06/04/2023 12:0 5 PM EST 06/04/2023 12:23 PM EST Narrative Resulting Agency Comment Spec In Lab Gee Decker MD CHEMISTRY ORDERABLES Performing Organization Address [facility] Co de Phone Number [facility] [place] [address] * Magnesium (06/04/2023 12:05 PM EST) Magnesium 0.81 0.69 - 1.07 mmol/L [facility] Blood 06/04/2023 12:0 5 PM EST 06/04/2023 12:23 PM EST Narrative Resulting Agency Comment Spec In Lab Gee Decker MD CHEMISTRY ORDERABLES Performing Organization Address [facility] Co de Phone Number [facility] [place] [address] * (ABNORMAL) Basic Metabolic Panel (non-fasting) (06/04/2023 12:05 PM EST) Glucose Lvl 218(H) 65 - 199 mg/dL [facility] Comment:Diabetes: >=200 mg/d L plus symptoms BUN 19(H) 8 - 18 mg/dL [facility] Creatinine 0.97 0.70 - 1.20 mg/dL [facility] Sodium 134(L) 135 - 145 mmol/L [facility] Potassium Not Perf 3.5 - 5.0 [facility] Comment: Unable to quantitate due to sample hemolysis. ??Sample redraw suggested. Called by: DANGELO, Read back by: Kvng Cherry, Date/Time:06/04/23 13:27. Please note: ??Patients with WBC >100,000 may have falsely elevated Potassium levels. ??For accurate Potassium quantification in these patients send serum separator tube (gold top) for subsequent determinations. ??Contact the Clinical Chemistry Laboratory if there are any questions. Chloride 103 98 - 107 mmol/L [facility] CO2 20(L) 22 - 31 mmol/L [facility] Anion Gap 11 5 - 15 mmol/L [facility] Calcium 8.6 8.5 - 10.5 mg/dL [facility] Estimated GFR 80 >=60 mL/min/1. 73 m?? [facility] Comment: This patient's estimated GFR [...] and symptoms in addition to eGFR. Blood 06/04/2023 12:0 5 PM EST 06/04/2023 12:23 PM EST Narrative Resulting Agency Comment Spec In Lab Gee Decker MD CHEMISTRY ORDERABLES [facility] [place] [address] * POCT Glucose (06/04/2023 11:44 AM EST) POC Glucose 184 65 - 199 mg/dL [facility] Comment: Supplemental ranges: <140 mg/dL before meals <180 mg/dL all other times of the day Blood 06/04/2023 11:4 4 AM EST 06/04/2023 11:44 AM EST Gee Decker MD POINT OF CARE TEST O JET [facility] [place] [address] * POCT Glucose (06/04/2023 10:24 AM EST) POC Glucose 167 65 - 199 mg/dL [facility] Comment: Supplemental ranges: <140 mg/dL before meals <180 mg/dL all other times of the day Blood 06/04/2023 10:2 4 AM EST 06/04/2023 10:24 AM EST Gee Decker MD POINT OF CARE TEST O JET [facility] [place] [address] * (ABNORMAL) _Urinalysis with microscopic (06/04/2023 9:15 AM EST) Glucose UA >=1000(Crit ical) Negative mg/dL [facility] Comment: Urinalysis result NOT critical without a combination of Glucose greater than or equal to 500 mg/dL AND Ketones greater than or equal to 80 mg/dL Protein UA >=300(A) Negative mg/dL [facility] Bilirubin UA Small(A) Negative mg/dL [facility] Comment: Clinical correlation required for positive Urine Bilirubin results as false positive may occur with some drugs and drug related products. If a false positive is suspected a serum total bilirubin should be considered if clinically indicated. Urobilinogen UA Normal Normal mg/dL [facility] pH UA 5.5 5.0 - 8.0 [facility] Blood UA Moderate(A) Negative mg/dL [facility] Ketones UA Trace(A) Negative mg/dL [facility] Nitrite UA Negative Negative [facility] Leukocytes UA Negative Negative mcL [facility] Appearance UA Cloudy(A) Clear [facility] Spec [place] UA >=1.030(A) 1.005 - 1.030 [facility] Color UA Dark Yellow Yellow [facility] RBC UA 13(H) 0 - 4 /HPF [facility] WBC UA 27(H) 0 - 5 /HPF [facility] Bacteria UA Moderate(A) None /HPF [facility] Squam Epith UA 5(H) <=4 /HPF [facility] Hyaline Cast UA 1 0 - 2 /LPF [facility] Gran Cast UA 1(H) <=0 /LPF [facility] WBC Cast UA <1(H) <=0 /LPF [facility] Urine Urine / Unknown 06/04/2023 9 :15 AM EST 06/04/2023 9:31 AM EST Narrative Resulting Agency Comment Spec In Lab Cristofer Fish MD URINE ORDERABLES [facility] [place] [address] * POCT Glucose (06/04/2023 7:15 AM EST) POC Glucose 171 65 - 199 mg/dL [facility] Comment: Supplemental ranges: <140 mg/dL before meals <180 mg/dL all other times of the day Blood 06/04/2023 7:15 AM EST 06/04/2023 7:15 AM EST Gee Decker MD POINT OF CARE TEST O RDERABLES Performing Organization Address City/[facility]/ZIP Co de Phone Number [facility] [place] [address] * (ABNORMAL) Beta Hydroxybutyrate (06/04/2023 5:20 AM EST) BOHB 0.52(H) 0.00 - 0.30 mmol/L [facility] Comment: This test has not been cleared by the [place] FDA. Performance characteristics of this test were determined by [facility] in accordance with CLIA requirements. This laboratory is qualified under CLIA to perform high-complexity testing. Blood Venous Draw / Unknown 06/04/2023 5:20 AM EST 06/04/2023 5:29 AM EST Narrative Resulting Agency Comment Spec In Lab Cristofer Fish MD CHEMISTRY ORDERABLES Performing Organization Address [facility]/ZIP Co de Phone Number [facility] [place] [address] * (ABNORMAL) Differential, Automated (06/04/2023 5:20 AM EST) Pathologist [facility] Neutrophils % 92.0 % [facility] Neutr Abs (ANC) 11.09(H) 1.70 - 6.10 x10(3)/mc L [facility] Lymphocytes % 5.1 % [facility] Lymphocytes Abs 0.6(L) 0.9 - 3.2 x10(3)/mc L [facility] Monocytes % 2.6 % [facility] Monocyte Abs 0.3 0.3 - 0.9 x10(3)/mc L [facility] Eosinophils % 0.0 % [facility] Eosinophils Abs 0.0 0.0 - 0.4 x10(3)/mc L [facility] Basophils % 0.0 % [facility] Basophils Abs 0.0 0.0 - 0.1 x10(3)/mc L [facility] Immature Gran % 0.30 % [facility] Comment: Immature granulocytes(IG's)percentage and absolute count will include metamyelocytes, myelocytes, and promyelocytes. Blood smears from CBCs yielding IG's will be scanned manually for concordance. If this scan disagrees with the automated IG or if promyelocytes are noted, a manual differential will be performed. Estefany Gran Abs 0.04 0.00 - 0.04 x10(3)/mc L [facility] Blood 06/04/2023 5:20 AM EST 06/04/2023 5:28 AM EST Narrative Resulting Agency Comment Spec In Lab Cristofer Fish MD HEMATOLOGY ORDERABLE S Performing Organization Address City/State/[facility] Co de Phone Number [facility] [place] [address] * (ABNORMAL) Hemogram (06/04/2023 5:20 AM EST) WBC 12.0(H) 4.0 - 9.5 x10(3)/[facility] RBC 4.68 4.00 - 5.21 x10(6)/[facility] Hemoglobin 13.5 11.7 - 15.5 g/dL [facility] Hematocrit 42.0 35.7 - 45.8 % [facility] MCV 89.7 82.6 - 94.4 fL [facility] MCH 28.8 27.1 - 32.0 pg [facility] MCHC 32.1 31.7 - 35.0 g/dL [facility] Platelets 402(H) 145 - 357 x10(3)/[facility] RDWSD 43.6 37.0 - 46.0 fL [facility] RDWCV 13.2 11.5 - 14.1 % [facility] MPV 10.4 7.6 - 12.9 fL [facility] nRBC % Auto 0.0 % [facility] nRBC Abs Auto 0.000 0.000 - 0.000 x10(3)/mcL [facility] Blood 06/04/2023 5:20 AM EST 06/04/2023 5:28 AM EST Narrative Resulting Agency Comment Spec In Lab Cristofer Fish MD HEMATOLOGY ORDERABLE S Performing Organization Address [facility] Co de Phone Number [facility] [place] [address] * Phosphorus (06/04/2023 5:20 AM EST) Phosphorus 3.5 2.5 - 4.5 mg/dL [facility] Blood 06/04/2023 5:20 AM EST 06/04/2023 5:28 AM EST Narrative Resulting Agency Comment Spec In Lab Gee Decker MD CHEMISTRY ORDERABLES Performing Organization Address [facility] Co de Phone Number [facility] [place] [address] * Magnesium (06/04/2023 5:20 AM EST) Magnesium 0.78 0.69 - 1.07 mmol/L [facility] Blood 06/04/2023 5:20 AM EST 06/04/2023 5:28 AM EST Narrative Resulting Agency Comment Spec In Lab Gee Decker MD CHEMISTRY ORDERABLES Performing Organization Address [facility] Co de Phone Number [facility] [place] [address] * (ABNORMAL) Basic Metabolic Panel (non-fasting) (06/04/2023 5:20 AM EST) Glucose Lvl 164 65 - 199 mg/dL [facility] Comment:Diabetes: >=200 mg/d L plus symptoms BUN 17 8 - 18 mg/dL [facility] Creatinine 0.98 0.70 - 1.20 mg/dL [facility] Sodium 135 135 - 145 mmol/L [facility] Potassium 5.4(H) 3.5 - 5.0 mmol/L [facility] Comment: Please note: ??Patients with WBC >100,000 may have falsely elevated Potassium levels. ??For accurate Potassium quantification in these patients send serum separator tube (gold top) for subsequent determinations. ??Contact the Clinical Chemistry Laboratory if there are any questions. Chloride 105 98 - 107 mmol/L [facility] CO2 18(L) 22 - 31 mmol/L [facility] Anion Gap 12 5 - 15 mmol/L [facility] Calcium 8.9 8.5 - 10.5 mg/dL [facility] Estimated GFR 79 >=60 mL/min/1. 73 m?? [facility] Comment: This patient's estimated GFR [...] and symptoms in addition to eGFR. Blood 06/04/2023 5:20 AM EST 06/04/2023 5:28 AM EST Narrative Resulting Agency Comment Spec In Lab Gee Decker MD CHEMISTRY ORDERABLES [facility] [place] [address] * (ABNORMAL) Basic Metabolic Panel (non-fasting) (06/03/2023 10:55 PM EST) Glucose Lvl 103 65 - 199 mg/dL [facility] Comment:Diabetes: >=200 mg/d L plus symptoms BUN 12 8 - 18 mg/dL [facility] Creatinine 0.93 0.70 - 1.20 mg/dL [facility] Sodium 138 135 - 145 mmol/L [facility] Potassium 4.5 3.5 - 5.0 mmol/L [facility] Comment: Please note: ??Patients with WBC >100,000 may have falsely elevated Potassium levels. ??For accurate Potassium quantification in these patients send serum separator tube (gold top) for subsequent determinations. ??Contact the Clinical Chemistry Laboratory if there are any questions. Chloride 106 98 - 107 mmol/L [facility] CO2 21(L) 22 - 31 mmol/L [facility] Anion Gap 11 5 - 15 mmol/L [facility] Calcium 9.0 8.5 - 10.5 mg/dL [facility] Estimated GFR 84 >=60 mL/min/1. 73 m?? [facility] Comment: This patient's estimated GFR [...] and symptoms in addition to eGFR. Blood 06/03/2023 10:5 5 PM EST 06/03/2023 11:01 PM EST Narrative Resulting Agency Comment Spec In Lab Gee Decker MD CHEMISTRY ORDERABLES [facility] [place] [address] * POCT Glucose (06/03/2023 8:27 PM EST) POC Glucose 91 65 - 199 mg/dL [facility] Comment: Supplemental ranges: <140 mg/dL before meals <180 mg/dL all other times of the day Blood 06/03/2023 8:27 PM EST 06/03/2023 8:27 PM EST Gee Decker MD POINT OF CARE TEST O JET Performing Organization Address [facility] Co de Phone Number [facility] [place] [address] * POCT Glucose (06/03/2023 7:41 PM EST) POC Glucose 118 65 - 199 mg/dL [facility] Comment: Supplemental ranges: <140 mg/dL before meals <180 mg/dL all other times of the day Blood 06/03/2023 7:41 PM EST 06/03/2023 7:41 PM EST Gee Decker MD POINT OF CARE TEST O JET Performing Organization Address [facility] Co de Phone Number [facility] [place] [address] * (ABNORMAL) POCT Glucose (06/03/2023 7:11 PM EST) POC Glucose 50(Critica l) 65 - 199 mg/dL [facility] Comment: Supplemental ranges: <140 mg/dL before meals <180 mg/dL all other times of the day Blood 06/03/2023 7:11 PM EST 06/03/2023 7:11 PM EST Gee Decker MD POINT OF CARE TEST O JET Performing Organization Address [facility] Co de Phone Number [facility] [place] [address] * POCT Glucose (06/03/2023 2:32 PM EST) POC Glucose 88 65 - 199 mg/dL [facility] Comment: Supplemental ranges: <140 mg/dL before meals <180 mg/dL all other times of the day Blood 06/03/2023 2:32 PM EST 06/03/2023 2:32 PM EST Gee Decker MD POINT OF CARE TEST O RDERAEDWARD [facility] [place] [address] * (ABNORMAL) BLOOD GAS 2 ARTERIAL (06/03/2023 2:10 PM EST) pH Art 7.34(L) 7.35 - 7.45 [facility] pCO2 Art 47(H) 35 - 45 mmHg [facility] pO2 Art 28(Critica l) 85 - 104 mmHg [facility] Comment:Noted by instrument repair supervisor. HCO3 Art 24.7 20.0 - 26.0 mmol/L [facility] BE Art -1.1 -3.0 - 3.0 mmol/L [facility] Hgb Blood Gas 15.6(H) 11.7 - 15.5 g/dL [facility] O2HB Art 53.1(L) 94.0 - 97.0 % [facility] COHB Art 0.9 % [facility] Comment: Nonsmokers: 0.5-1.5% COHB Smokers: Variable, but usually less than 10% Toxic: 20-30% COHB Lethal: Greater than 60% COHB METHB Art 0.3 <=1.5 % [facility] Na Whole Blood 142 135 - 145 mmol/L [facility] K Whole Blood 4.2 3.5 - 5.0 mmol/L [facility] Comment: Please note: Patients with WBC >100,000 may have falsely elevated Potassium levels. Contact the Clinical Chemistry Laboratory if there are any questions. ICa Whole Blood 1.23 1.15 - 1.33 mmol/L [facility] Comment: Note: ??Total bilirubin higher than 20 mg/dL may lead to falsely low ionized calcium. CL Whole Blood 105 98 - 107 mmol/L [facility] Gluc Whole Bld 61(L) 65 - 199 mg/dL [facility] Comment:Diabetes: >=200 mg/d L plus symptoms. Lactate WB 1.4 0.5 - 2.2 mmol/L [facility] Blood 06/03/2023 2:10 PM EST 06/03/2023 2:10 PM EST Gee Decker MD CHEMISTRY ORDERABLES Performing Organization Address [facility] Co de Phone Number [facility] [place] [address] * (ABNORMAL) POCT Glucose (06/03/2023 2:05 PM EST) POC Glucose 60(L) 65 - 199 mg/dL [facility] Comment: Supplemental ranges: <140 mg/dL before meals <180 mg/dL all other times of the day Blood 06/03/2023 2:05 PM EST 06/03/2023 2:05 PM EST Gee Decker MD POINT OF CARE TEST O RDERABLES Performing Organization Address [facility] Co wv Phone Number [facility] [place] [address] * Beta Hydroxybutyrate (06/03/2023 2:00 PM EST) BOHB 0.11 0.00 - 0.30 mmol/L [facility] Comment: This test has not been cleared by the [place] FDA. Performance characteristics of this test were determined by [facility] in accordance with CLIA requirements. This laboratory is qualified under CLIA to perform high-complexity testing. Blood 06/03/2023 2:00 PM EST 06/03/2023 2:28 PM EST Narrative Resulting Agency Comment Spec In Lab Renaldo Ramirez MD CHEMISTRY ORDERABLE S Performing Organization Address [facility] Co de Phone Number [facility] [place] [address] * (ABNORMAL) Basic Metabolic Panel (non-fasting) (06/03/2023 2:00 PM EST) Glucose Lvl 59(L) 65 - 199 mg/dL [facility] Comment:Diabetes: >=200 mg/d L plus symptoms BUN 12 8 - 18 mg/dL [facility] Creatinine 0.86 0.70 - 1.20 mg/dL [facility] Sodium 140 135 - 145 mmol/L [facility] Potassium 4.3 3.5 - 5.0 mmol/L [facility] Comment: Please note: ??Patients with WBC >100,000 may have falsely elevated Potassium levels. ??For accurate Potassium quantification in these patients send serum separator tube (gold top) for subsequent determinations. ??Contact the Clinical Chemistry Laboratory if there are any questions. Chloride 105 98 - 107 mmol/L [facility] CO2 24 22 - 31 mmol/L [facility] Anion Gap 11 5 - 15 mmol/L [facility] Calcium 9.6 8.5 - 10.5 mg/dL [facility] Estimated GFR 93 >=60 mL/min/1. 73 m?? [facility] Comment: This patient's estimated GFR [...] and symptoms in addition to eGFR. Blood 06/03/2023 2:00 PM EST 06/03/2023 2:28 PM EST Narrative Resulting Agency Comment Spec In Lab Renaldo Ramirez MD CHEMISTRY ORDERABLE S [facility] [place] [address] * (ABNORMAL) POCT Glucose (06/03/2023 1:42 PM EST) POC Glucose 53(Critica l) 65 - 199 mg/dL [facility] Comment: Supplemental ranges: <140 mg/dL before meals <180 mg/dL all other times of the day Blood 06/03/2023 1:42 PM EST 06/03/2023 1:42 PM EST Gee Decker MD POINT OF CARE TEST Jeanna CHAUDHARY Performing Organization Address [facility] de Phone Number [facility] [place] [address] * (ABNORMAL) POCT Glucose (06/03/2023 1:14 PM EST) POC Glucose 60(L) 65 - 199 mg/dL [facility] Comment: Supplemental ranges: <140 mg/dL before meals <180 mg/dL all other times of the day Blood 06/03/2023 1:14 PM EST 06/03/2023 1:14 PM EST Gee Decker MD POINT OF CARE TEST Jeanna CHAUDHARY Performing Organization Address [facility] Phone Number [facility] [place] [address] documented in this encounter Visit Diagnoses Diagnosis Morbid obesity- Primary documented in this encounter Admitting Diagnoses Diagnosis Morbid obesity documented in this encounter Administered Medications Inactive Administered Medications - up to 3 most recent administrations Medication Order MAR Action Action Date Dose Rate Site acetaminophen (Tylenol) (32.02 mg/mL) oral liquid 650 mg 650 mg, Oral, EVERY 6 HOURS SCHEDULED, First dose on Wed06/04/23 at 0000, Until Discontinued, Administer starting post-op day one, once tolerating PO Maximum dose of acetaminophen is 3,000 mg from all sources in 24 hours. When ordered for pain, acetaminophen should be given even when other ordered pain medications are indicated., Routine Given 06/05/2023 5:19 AM EST 650 mg Given 06/05/2023 12:07 AM EST 650 mg Given 06/04/2023 6:00 PM EST 650 mg acetaminophen (Tylenol) tablet 975 mg 975 mg, Oral, ONCE, 1 dose, On Christa 06/03/23 at 1345, Administer with a SIP of water only. Maximum dose of acetaminophen is 4,000 mg from all sources in 24 hours., Day of Surgery (Day of Procedure), Routine Given 06/03/2023 3:04 PM EST 975 mg ARIPiprazole (Abilify) tablet 20 mg 20 mg, Oral, DAILY, First dose on Wed06/04/23 at 0900, Until Discontinued, Cut in half and give both halves, Routine Given 06/05/2023 9:07 AM EST 20 mg Given 06/04/2023 8:40 AM EST 20 mg celecoxib (CeleBREX) capsule 400 mg 400 mg, Oral, ONCE, 1 dose, On Christa 06/03/23 at 1345, Day of Surgery (Day of Procedure), Routine Given 06/03/2023 3:05 PM EST 400 mg chlorproMAZINE (Thorazine) tablet 300 mg 300 mg, Oral, NIGHTLY, First dose on Wed06/04/23 at 2100, Until Discontinued, Routine Given 06/04/2023 8:10 PM EST 300 mg chlorproMAZINE (Thorazine) tablet 50 mg 50 mg, Oral, DAILY PRN, Starting on Wed06/04/23 at 1322, Until 06/05/23 at 1350, Anxiety, Routine dextrose 10% infusion 100 mL, Intravenous, ONCE, 1 dose, On Christa 06/03/23 at 1515, Day of Surgery (Day of Procedure) New Bag 06/03/2023 2:15 PM EST 100 mLs 200 mL/hr Right Arm dextrose 10% infusion 250 mL, at 1,000 mL/hr, Intravenous, EVERY 15 MIN PRN, Starting on Wed06/04/23 at 0844, Until 06/05/23 at 1350, For BG 50-70 mg/dL: Oral treatment preferred: [...] insulin orders before administering the next dose. dextrose 5% and lactated ringers infusion 125 mL/hr, Intravenous, CONTINUOUS, Starting on Wed06/04/23 at 1115, Until 06/05/23 at 1350 New Bag 06/05/2023 4:57 AM EST 125 mL/hr 125 mL/hr New Bag 06/04/2023 8:42 PM EST 125 mL/hr 125 mL/hr New Bag 06/04/2023 11:11 AM EST 125 mL/hr 125 mL/hr enoxaparin (Lovenox) (40 mg/0.4 mL) subcutaneous injection 40 mg 40 mg, Subcutaneous, ONCE, 1 dose, On Wed06/03/23 at 1345, To be given in preop area, Day of Surgery (Day of Procedure), Routine Given 06/03/2023 3:02 PM EST 4 0 mg enoxaparin (Lovenox) (40 mg/0.4 mL) subcutaneous injection 40 mg 40 mg, Subcutaneous, EVERY 12 HOURS SCHEDULED (2 times per day), First dose on Wed06/04/23 at 0900, Until Discontinued, Routine Given 06/05/2023 9:00 AM EST 40 mg Given 06/04/2023 8:10 PM EST 40 mg Given 06/04/2023 8:37 AM EST 40 mg Ab dominal Tissue fentaNYL (pf) (50 mcg/mL) multi-dose injection 25 mcg 25 mcg, Intravenous, EVERY 5 MIN PRN, Starting on Christa 06/03/23 at 2033, Until Wed06/04/23 at 0139, Pain, Mild to moderate pain (1-5 out of 10), Hold for respiratory rate less than 10 per minute. Maximum dose 200 mcg over one hour, including OR administration. If ordered with HYDROmorphone or morphine, give HYDROmorphone or morphine first and use fentaNYL for breakthrough pain., PACU Recovery, Routine Given 06/03/2023 10:00 PM EST 25 mcg Given 06/03/2023 9:22 PM EST 25 mcg Given 06/03/2023 8:59 PM EST 25 mcg gabapentin (Neurontin) capsule 300 mg 300 mg, Oral, DAILY, First dose on Wed06/04/23 at 0900, Until Discontinued, Open capsule, Routine Given 06/05/2023 9:06 AM EST 300 mg Given 06/04/2023 8:37 AM EST 300 mg gabapentin (Neurontin) capsule 600 mg 600 mg, Oral, NIGHTLY, First dose on Christa 06/03/23 at 2200, Until Discontinued, Open capsule, Routine Given 06/04/2023 8:11 PM EST 600 mg Given 06/03/2023 11:30 PM EST 600 mg glucagon (Glucagen) (1 mg/mL) injection solution 1 mg 1 mg, Intramuscular, EVERY 15 MIN PRN, Starting on Wed06/04/23 at 0844, Until 06/05/23 at 1350, Low blood sugar, For BG 50-70 mg/dL: [...] Buccal, EVERY 15 MIN PRN, Starting on Wed06/04/23 at 0844, Until 06/05/23 at 1350, Low blood sugar, For BG 50-70 mg/dL: [...] weight of tube = 37.5 grams.), Routine glucose 40% oral geL (Glutose) 40 % gel 1 dose, Starting on Christa 06/03/23 at 1322, Until Christa 06/03/23 at 1358, TABITHA GUERIN.: cabinet override 1 tube of Glutose-15 contains 15 grams of glucose (net weight of tube = 37.5 grams.) Given 06/03/2023 1:58 PM EST 7.5 g of gluco se Given 06/03/2023 1:40 PM EST 7.5 g of glucose hydrALAZINE (Apresoline) (20 mg/mL) injection 20 mg 20 mg, Intravenous, EVERY 4 HOURS PRN, Starting on Wed06/04/23 at 1804, Until 06/05/23 at 1350, High Blood Pressure, for SBP>180, hold for HR>100, use after labetalol Given 06/05/2023 7:3 4 AM EST 20 mg HYDROmorphone (Dilaudid) (0.2 mg/1 mL) injection syringe 0.2 mg 0.2 mg, Intravenous, EVERY 2 HOURS PRN, Starting on Christa 06/03/23 at 2144, Until Wed06/04/23 at 0628, Pain, Moderate-Severe pain 6-10, For breakthrough pain not responsive to oxyCODONE or if patient is unable to tolerate PO due to nausea., Routine Given 06/04/2023 4:58 AM EST 0.2 mg Given 06/04/2023 1:44 AM EST 0.2 mg HYDROmorphone (Dilaudid) (2 mg/mL) multi-dose injection solution 0.4 mg 0.4 mg, Intravenous, EVERY 10 MIN PRN, Starting on Wed06/03/23 at 2033, Until Wed06/04/23 at 0139, Pain, For Mild to Moderate Pain (1-5 out of 10), Hold for respiratory rate less than 10 per minute. Maximum dose 4 mg over one hour including administrations in the OR. If multiple pain medications are ordered, start with HYDROmorphone or morphine and use fentaNYL for breakthrough pain., PACU Recovery, Routine Given 06/03/2023 11:53 PM EST 0.4 mg Given 06/03/2023 11:43 PM EST 0.4 mg hydrOXYzine (Atarax) (2 mg/mL) oral liquid 25 mg 25 mg, Oral, 3 TIMES DAILY PRN, Starting on Wed06/04/23 at 1319, Until 06/05/23 at 1350, Itching, Routine insulin glargine-ygfn (Semglee) (100 unit/mL) subcutaneous injection vial 12 Units 12 Units, Subcutaneous, DAILY, First dose on Wed06/04/23 at 0900, Until Discontinued, Routine Given 06/04/2023 10:44 AM EST 12 Units Right Arm insulin glargine-ygfn (Semglee) (100 unit/mL) subcutaneous injection vial 12 Units 12 Units, Subcutaneous, 2 TIMES DAILY, First dose (after last modification) on Wed06/04/23 at 2100, Until Discontinued, Routine Given 06/05/2023 9:00 AM EST 12 Units Given 06/04/2023 8:12 PM EST 12 Units insulin lispro (HumaLOG;Admelog) (100 unit/mL) subcutaneous injection vial 0-3 Units 0-3 Units, Subcutaneous, 3 TIMES DAILY WITH MEALS, First dose on Wed06/04/23 at 1400, Until Discontinued, MEAL ASSOCIATED Give 1 unit: 12 grams of carbohydrate Hold if not eating or if BG less than 70 mg/dL., Routine insulin lispro (HumaLOG;Admelog) (100 unit/mL) subcutaneous injection vial 0-3 Units 0-3 Units, Subcutaneous, 3 TIMES DAILY PRN, Starting on Wed06/04/23 at 1332, Until Wed06/05/23 at 1350, with snacks, SNACK ASSOCIATED Give 1 unit for every 12 grams carbohydrate. Hold if not eating or if BG less than 70 mg/dL., Routine insulin lispro (HumaLOG;Admelog) (100 unit/mL) subcutaneous injection vial 1-4 Units 1-4 Units, Subcutaneous, 3 TIMES DAILY BEFORE MEALS, First dose on Wed06/04/23 at 0730, Until Discontinued, CORRECTION BOLUS [1-4 Units] Sensitive Sliding Scale (BG in mg/dL): Correction factor 40 (1 unit of insulin is expected to drop the glucose 40 mg/dL) ?? BG 160 - 200 Give 1 unit BG 201 - 240 Give 2 units BG 241 - 280 Give 3 units and recheck BG in 2 hours. BG greater than 280, give 4 units and recheck BG in 2 hours. - If recheck BG is LESS than 280, give no insulin and resume schedule - If recheck BG is GREATER than or EQUAL to 280, give 4 units and repeat BG in 2 hours & call for new insulin orders. DO NOT hold if NPO, unless specifically told to do so. ?? Per Inpatient Subcutaneous Insulin Policy, recheck a BG of greater than 240 mg/dL in 2 hours., Routine Given 06/04/2023 7:30 AM EST 1 Units insulin lispro (HumaLOG;Admelog) (100 unit/mL) subcutaneous injection vial 1-4 Units 1-4 Units, Subcutaneous, EVERY 4 HOURS SCHEDULED, First dose on Wed06/04/23 at 0915, Until Discontinued, CORRECTION BOLUS [1-4 Units] Sensitive Sliding Scale (BG in mg/dL): Correction factor 40 (1 unit of insulin is expected to drop the glucose 40 mg/dL) ?? BG 160 - 200 Give 1 unit BG 201 - 240 Give 2 units BG 241 - 280 Give 3 units and recheck BG in 2 hours. BG greater than 280, give 4 units and recheck BG in 2 hours. - If recheck BG is LESS than 280, give no insulin and resume schedule - If recheck BG is GREATER than or EQUAL to 280, give 4 units and repeat BG in 2 hours (no more than 3 times)??& call for new insulin orders. DO NOT hold if NPO, unless specifically directed to do so by written order. ?? Per Inpatient Subcutaneous Insulin Policy, recheck a BG of greater than 240 mg/dL in 2 hours., Routine Given 06/05/2023 8:00 AM EST 2 Units Given 06/05/2023 3:53 AM EST 1 Units Given 06/05/2023 12:07 AM EST 1 Units ketorolac (Toradol) (15 mg/mL) injection 15 mg 15 mg, Intravenous, EVERY 6 HOURS, 3 doses, First dose on Wed06/03/23 at 2200, Last dose on Wed06/04/23 at 1000, Routine Given 06/04/2023 10:28 AM EST 15 mg Rig ht Arm Given 06/04/2023 4:00 AM EST 15 mg Given 06/03/2023 10:00 PM EST 15 mg labetaloL (Normodyne) (5 mg/mL) injection solution 10 mg 10 mg, Intravenous, EVERY 15 MIN PRN, Starting on Wed06/03/23 at 2033, Until Wed06/04/23 at 0139, High Blood Pressure, Administer for systolic blood pressure greater than 160 mmHg. Administer 10 mg over 2 minutes. May repeat every 15 minutes if SBP remains above goal. If inadequate effect with 10 mg dose, then increase dose to 20 mg for subsequent dosing every 15 minutes. Do not exceed 300 mg per day. Hold if pulse is less than 45 beats per minute. If multiple antihypertensives ordered, use labetaloL first and if ineffective use hydrALAZINE second and if ineffective use niCARdipine infusion., PACU Recovery, Routine Given 06/03/2023 9:00 PM EST 10 mg labetaloL (Normodyne) (5 mg/mL) injection solution 20 mg 20 mg, Intravenous, EVERY 2 HOURS PRN, Starting on Wed06/04/23 at 1804, Until Wed06/05/23 at 1350, High Blood Pressure, For SBP>180, hold for HR<60, use before hydralazine, Routine lactated Ringers 1,000 mL IV bolus Intravenous, ONCE, 1 dose, On Wed06/04/23 at 0645 New Bag 06/04/2023 6:45 AM EST lactated ringers infusion 1,000 mL, at 125 mL/hr, Intravenous, CONTINUOUS, Starting on Wed06/03/23 at 2200, Until Wed06/04/23 at 1058 New Bag 06/03/2023 10:00 PM EST 1,000 mLs 125 mL/hr levothyroxine (Synthroid) tablet 200 mcg 200 mcg, Oral, EVERY MORNING, First dose on Wed06/04/23 at 0600, Until Discontinued, Ok to give whole Given 06/05/2023 5:19 AM EST 200 mcg losartan (Cozaar) tablet 25 mg 25 mg, Oral, DAILY, First dose on Wed06/04/23 at 1345, Until Discontinued, Routine Given 06/05/2023 9:07 AM EST 25 mg Given 06/04/2023 3:09 PM EST 25 mg metoprolol tartrate (Lopressor) tablet 50 mg 50 mg, Oral, EVERY 12 HOURS SCHEDULED (2 times per day), First dose on Wed06/04/23 at 0900, Until Discontinued, Cut in half and give both halves, Routine Given 06/05/2023 9:07 AM EST 50 mg Given 06/04/2023 8:11 PM EST 50 mg Given 06/04/2023 8:37 AM EST 50 mg norethindrone (Aygestin) tablet 10 mg 10 mg, Oral, 3 TIMES DAILY, First dose on Wed06/04/23 at 0900, Until Discontinued, Routine Given 06/04/2023 8:38 AM EST 10 mg ondansetron (pf) (Zofran) (2 mg/mL) injection 4 mg 4 mg, Intravenous, EVERY 8 HOURS SCHEDULED, First dose on Wed06/03/23 at 2200, Until Discontinued, For nausea please use ondansetron as the first choice; prochlorperazine as a second choice. Call provider if not effective. Given 06/05/2023 3:53 AM EST 4 mg Given 06/04/2023 7:14 PM EST 4 mg Given 06/04/2023 11:11 AM EST 4 mg ondansetron (pf) (Zofran) (2 mg/mL) injection 4 mg 4 mg, Intravenous, EVERY 30 MIN PRN, 2 doses, Starting on Wed06/03/23 at 2033, Until Wed06/04/23 at 0139, Nausea, Maximum total dose of 8 mg (including OR administration). If multiple antiemetics ordered, use ondansetron first and if ineffective use prochlorperazine or haloperidoL second, PACU Recovery Given 06/03/2023 8:00 PM EST 4 mg oxyCODONE (Roxicodone) (1 mg/mL) oral liquid 5 mg 5 mg, Oral, EVERY 6 HOURS PRN, Starting on Wed06/03/23 at 2144, Until 06/05/23 at 1350, Pain, Moderate-Severe pain 4-10, Routine Given 06/05/2023 7:27 AM EST 5 m g Given 06/04/2023 8:34 AM EST 5 mg pantoprazole (Protonix) injection 40 mg 40 mg, Intravenous, DAILY, First dose on Wed06/04/23 at 0900, Until Discontinued, Reconstitute with 10 mL of normal saline to a concentration of 4 mg/mL and inject slowly over 2 minutes. Reconstitute with 10 mL of normal saline to a concentration of 4 mg/mL and inject slowly over 2 minutes., Routine Given 06/05/2023 9:07 AM EST 4 0 mg Given 06/04/2023 8:36 AM EST 40 mg prazosin (Minipress) capsule 10 mg 10 mg, Oral, NIGHTLY, First dose on Wed06/03/23 at 2215, Until Discontinued, Open capsule, Routine Given 06/04/2023 8:10 PM EST 10 mg Given 06/03/2023 11:30 PM EST 10 mg prochlorperazine (Compazine) (5 mg/mL) injection 10 mg 10 mg, Intravenous, EVERY 6 HOURS PRN, Starting on Christa 06/03/23 at 2144, Until 06/05/23 at 1350, Nausea, Vomiting, For nausea please use ondansetron as the first choice; prochlorperazine as a second choice. Call provider if not effective., Routine Given 06/05/2023 7:37 AM EST 10 mg Given 06/03/2023 11:35 PM EST 10 mg sennosides (Senokot) (1.76 mg/mL) oral liquid 8.8 mg 8.8 mg, Oral, ONCE, 1 dose, On 06/05/23 at 0845, Routine Given 06/05/2023 9:07 AM EST 8.8 mg sodium chloride 0.9 % (flush) (BD PosiFlush Normal Saline 0.9) flush 5 mL 5 mL, Intravenous, 2 TIMES DAILY, First dose on Christa 06/03/23 at 2200, Until Discontinued, Recovery (Recovery-Hospital Unit), Routine Given 06/05/2023 9:07 AM EST 5 mLs Given 06/04/2023 8:13 PM EST 5 mLs Given 06/04/2023 8:38 AM EST 5 mLs Ri ght Arm traZODone (Desyrel) tablet 300 mg 300 mg, Oral, NIGHTLY, First dose on Christa 06/03/23 at 2200, Until Discontinued, Cut in half and give both halves, Routine Given 06/04/2023 8:11 PM EST 300 mg documented in this encounter Active and Recently Administered Medications Times are shown in EST. Scheduled Medication Order 06/03/2023 06/04/2023 06/05/2023 acetaminophen (Tylenol) (32.02 mg/mL) oral liquid 650 mg 650 mg, Oral, EVERY 6 HOURS SCHEDULED, First dose on Wed06/04/23 at 0000, Until Discontinued, Administer starting post-op day one, once tolerating PO Maximum dose of acetaminophen is 3,000 mg from all sources in 24 hours. When ordered for pain, acetaminophen should be given even when other ordered pain medications are indicated., Routine 0000 (Not Given - Provider: Paddy Arthur RN - Reason: Patient/family refused)0600 (Given - Provider: Paddy Arthur RN)1111 (Given - Provider: Gogo Riley RN)1800 (Given - Provider: Gustabo Russ RN) 0007 (Given - Provider: Eri Claros, TOM)0519 (Given - Provider: Eri Claros RN) acetaminophen (Tylenol) tablet 975 mg (COMPLETED) 975 mg, Oral, ONCE, 1 dose, On Christa 06/03/23 at 1345, Administer with a SIP of water only. Maximum dose of acetaminophen is 4,000 mg from all sources in 24 hours., Day of Surgery (Day of Procedure), Routine 1504 (Given - Provider: Jeromy Samson RN) ARIPiprazole (Abilify) tablet 20 mg 20 mg, Oral, DAILY, First dose on Wed06/04/23 at 0900, Until Discontinued, Cut in half and give both halves, Routine 0840 (Given - Provider: Gogo Riley RN) 0907 (Given - Provider: Gustabo Russ RN) ceFAZolin (Ancef) 3 g vial attach to sodium chloride 0.9% 100 mL Mini-Bag Plus (COMPLETED) 3 g, Intravenous, ONCE, 1 dose, On Christa 06/03/23 at 1345, Administer over 30 Minutes, Day of Surgery (Day of Procedure), Indication for (Active or Suspected): Prophylaxis 1645 (New Bag - Provider: Yonatan Bey MD) celecoxib (CeleBREX) capsule 400 mg (COMPLETED) 400 mg, Oral, ONCE, 1 dose, On Christa 06/03/23 at 1345, Day of Surgery (Day of Procedure), Routine 1505 (Given - Provider: Jeromy Samson RN) chlorproMAZINE (Thorazine) tablet 300 mg 300 mg, Oral, NIGHTLY, First dose on Wed06/04/23 at 2100, Until Discontinued, Routine 2010 (Given - Provider: Eri Claros, TOM) dextrose 10% infusion (COMPLETED) 100 mL, Intravenous, ONCE, 1 dose, On Christa 06/03/23 at 1515, Day of Surgery (Day of Procedure) 1415 (New Bag - Provider: Jeromy Samson RN) doxepin (Silenor) Tablet 6 mg 6 mg, Oral, NIGHTLY, First dose on Christa 06/03/23 at 2200, Until Discontinued 2200 (Not Given - Provider: Paddy Arthur RN - Reason: Medication not available) 2100 (Not Given - Provider: Eri Claros RN - Reason: Medication not available) enoxaparin (Lovenox) (40 mg/0.4 mL) subcutaneous injection 40 mg (COMPLETED) 40 mg, Subcutaneous, ONCE, 1 dose, On Wed06/03/23 at 1345, To be given in preop area, Day of Surgery (Day of Procedure), Routine 1502 (Given - Provider: Jeromy Samson RN) enoxaparin (Lovenox) (40 mg/0.4 mL) subcutaneous injection 40 mg 40 mg, Subcutaneous, EVERY 12 HOURS SCHEDULED (2 times per day), First dose on Wed06/04/23 at 0900, Until Discontinued, Routine 0837 (Given - Provider: Gogo Riley RN)2009 (Given - Provider: Eri Claros RN) 0900 (Given - Provider: Gustabo Russ, TOM) gabapentin (Neurontin) capsule 300 mg 300 mg, Oral, DAILY, First dose on Wed06/04/23 at 0900, Until Discontinued, Open capsule, Routine 0837 (Given - Provider: Gogo Riley RN) 09 (Given - Provider: Gustabo Russ RN) gabapentin (Neurontin) capsule 600 mg 600 mg, Oral, NIGHTLY, First dose on Wed06/03/23 at 2200, Until Discontinued, Open capsule, Routine 2330 (Given - Provider: Paddy Arthur RN) 2010 (Given - Provider: Eri Claros RN) insulin glargine-ygfn (Semglee) (100 unit/mL) subcutaneous injection vial 12 Units (CANCELED) 12 Units, Subcutaneous, DAILY, First dose on Wed06/04/23 at 0900, Until Discontinued, Routine 1044 (Given - Provider: Lorena Mesa RN) insulin glargine-ygfn (Semglee) (100 unit/mL) subcutaneous injection vial 12 Units 12 Units, Subcutaneous, 2 TIMES DAILY, First dose (after last modification) on Wed06/04/23 at 2100, Until Discontinued, Routine 2011 (Given - Provider: Eri Claros RN) 0900 (Given - Provider: Gustabo Russ RN) insulin lispro (HumaLOG;Admelog) (100 unit/mL) subcutaneous injection vial 0-3 Units 0-3 Units, Subcutaneous, 3 TIMES DAILY WITH MEALS, First dose on Wed06/04/23 at 1400, Until Discontinued, MEAL ASSOCIATED Give 1 unit: 12 grams of carbohydrate Hold if not eating or if BG less than 70 mg/dL., Routine 1400 (Not Given - Provider: Lorena Mesa RN - Reason: See comment)1700 (Not Given - Provider: Gustabo Russ RN - Reason: Order parameters not met) 0800 (Not Given - Provider: Gustabo Russ RN - Reason: Order parameters not met) insulin lispro (HumaLOG;Admelog) (100 unit/mL) subcutaneous injection vial 1-4 Units (CANCELED)(Linked Group 1) 1-4 Units, Subcutaneous, 3 TIMES DAILY BEFORE MEALS, First dose on Wed06/04/23 at 0730, Until Discontinued, CORRECTION BOLUS [1-4 Units] Sensitive Sliding Scale (BG in mg/dL): Correction factor 40 (1 unit of insulin is expected to drop the glucose 40 mg/dL) ?? BG 160 - 200 Give 1 unit BG 201 - 240 Give 2 units BG 241 - 280 Give 3 units and recheck BG in 2 hours. BG greater than 280, give 4 units and recheck BG in 2 hours. - If recheck BG is LESS than 280, give no insulin and resume schedule - If recheck BG is GREATER than or EQUAL to 280, give 4 units and repeat BG in 2 hours & call for new insulin orders. DO NOT hold if NPO, unless specifically told to do so. ?? Per Inpatient Subcutaneous Insulin Policy, recheck a BG of greater than 240 mg/dL in 2 hours., Routine 0730 (Given - Provider: Paddy Arthru RN) insulin lispro (HumaLOG;Admelog) (100 unit/mL) subcutaneous injection vial 1-4 Units(Linked Group 2) 1-4 Units, Subcutaneous, EVERY 4 HOURS SCHEDULED, First dose on Wed06/04/23 at 0915, Until Discontinued, CORRECTION BOLUS [1-4 Units] Sensitive Sliding Scale (BG in mg/dL): Correction factor 40 (1 unit of insulin is expected to drop the glucose 40 mg/dL) ?? BG 160 - 200 Give 1 unit BG 201 - 240 Give 2 units BG 241 - 280 Give 3 units and recheck BG in 2 hours. BG greater than 280, give 4 units and recheck BG in 2 hours. - If recheck BG is LESS than 280, give no insulin and resume schedule - If recheck BG is GREATER than or EQUAL to 280, give 4 units and repeat BG in 2 hours (no more than 3 times)??& call for new insulin orders. DO NOT hold if NPO, unless specifically directed to do so by written order. ?? Per Inpatient Subcutaneous Insulin Policy, recheck a BG of greater than 240 mg/dL in 2 hours., Routine 0915 (Not Given - Provider: Lorena Mesa RN - Reason: See comment - Comment: AM sliding scale already administered)1146 (Given - Provider: Gogo Riley RN)1718 (Given - Provider: Gustabo Russ RN)2010 (Given - Provider: Eri Claros, TOM) 0007 (Given - Provider: Eri Claros RN)0353 (Given - Provider: Eri Claros RN)0800 (Given - Provider: Gustabo Russ RN) ketorolac (Toradol) (15 mg/mL) injection 15 mg (COMPLETED) 15 mg, Intravenous, EVERY 6 HOURS, 3 doses, First dose on Wed06/03/23 at 2200, Last dose on Wed06/04/23 at 1000, Routine 2200 (Given - Provider: Paddy Arthur RN) 0400 (Given - Provider: Paddy Arthur RN)1028 (Given - Provider: Lorena Mesa RN) lactated Ringers 1,000 mL IV bolus (COMPLETED) Intravenous, ONCE, 1 dose, On Wed06/04/23 at 0645 0645 (New Bag - Provider: Paddy Arthur RN) levothyroxine (Synthroid) tablet 200 mcg 200 mcg, Oral, EVERY MORNING, First dose on Wed06/04/23 at 0600, Until Discontinued, Ok to give whole 0600 (Not Given - Provider: Paddy Arthur RN - Reason: See comment - Comment: unable to nausea) 0519 (Given - Provider: Eri Claros RN) losartan (Cozaar) tablet 25 mg 25 mg, Oral, DAILY, First dose on Wed06/04/23 at 1345, Until Discontinued, Routine 1509 (Given - Provider: Fercho Quinn RN) 09 (Given - Provider: Gustabo Russ RN) metoprolol tartrate (Lopressor) tablet 50 mg 50 mg, Oral, EVERY 12 HOURS SCHEDULED (2 times per day), First dose on Wed06/04/23 at 0900, Until Discontinued, Cut in half and give both halves, Routine 0837 (Given - Provider: Gogo Riley RN)2010 (Given - Provider: Eri Claros, TOM) 09 (Given - Provider: Gustabo Russ RN) norethindrone (Aygestin) tablet 10 mg (CANCELED) 10 mg, Oral, 3 TIMES DAILY, First dose on Wed06/04/23 at 0900, Until Discontinued, Routine 0838 (Given - Provider: Gogo Riley RN) ondansetron (pf) (Zofran) (2 mg/mL) injection 4 mg 4 mg, Intravenous, EVERY 8 HOURS SCHEDULED, First dose on Wed06/03/23 at 2200, Until Discontinued, For nausea please use ondansetron as the first choice; prochlorperazine as a second choice. Call provider if not effective. 0400 (Given - Provider: Paddy Arthur RN)1111 (Given - Provider: Gogo Riley RN)1914 (Given - Provider: Gustabo Russ RN) 0353 (Given - Provider: Eri Claros, TOM)1100 (Not Given - Provider: Gustabo Russ RN - Reason: Loss of access) pantoprazole (Protonix) injection 40 mg 40 mg, Intravenous, DAILY, First dose on Wed06/04/23 at 0900, Until Discontinued, Reconstitute with 10 mL of normal saline to a concentration of 4 mg/mL and inject slowly over 2 minutes. Reconstitute with 10 mL of normal saline to a concentration of 4 mg/mL and inject slowly over 2 minutes., Routine 0836 (Given - Provider: Gogo Riley RN) 09 (Given - Provider: Gustabo Russ RN) prazosin (Minipress) capsule 10 mg 10 mg, Oral, NIGHTLY, First dose on Wed18/24 at 2215, Until Discontinued, Open capsule, Routine 2330 (Given - Provider: Paddy Arthur, TOM) 2009 (Given - Provider: Eri Claros, TOM) sennosides (Senokot) (1.76 mg/mL) oral liquid 8.8 mg (COMPLETED) 8.8 mg, Oral, ONCE, 1 dose, On 06/05/23 at 0845, Routine 0907 (Given - Provider: Gustabo Russ, TOM) sodium chloride 0.9 % (flush) (BD PosiFlush Normal Saline 0.9) flush 5 mL 5 mL, Intravenous, 2 TIMES DAILY, First dose on Christa 06/03/23 at 2200, Until Discontinued, Recovery (Recovery-Hospital Unit), Routine 2200 (Given - Provider: Paddy Arthur RN) 0838 (Given - Provider: Gogo Riley, TOM)2012 (Given - Provider: Eri Claros, TOM) 0907 (Given - Provider: Gustabo Russ, TOM) traZODone (Desyrel) tablet 300 mg 300 mg, Oral, NIGHTLY, First dose on Christa 24 at 2200, Until Discontinued, Cut in half and give both halves, Routine 2200 (Not Given - Provider: Paddy Arthur RN - Reason: Patient/family refused) 2010 (Given - Provider: Eri Claros, TOM) Continuous Medication Order 06/03/2023 06/04/2023 06/05/2023 dextrose 5% and lactated ringers infusion 125 mL/hr, Intravenous, CONTINUOUS, Starting on Wed06/04/23 at 1115, Until 06/05/23 at 1350 1111 (New Bag - Provider: Gogo Riley RN)2042 (New Bag - Provider: Lidya Mahajan RN) 0457 (New Bag - Provider: Eri Claros, TOM) lactated ringers infusion (CANCELED) 1,000 mL, at 100 mL/hr, Intravenous, CONTINUOUS, Starting on Christa 06/03/23 at 1345, Until Wed06/04/23 at 0139, Day of Surgery (Day of Procedure) 1606 (New Bag - Provider: Yonatan Bey MD)1806 (Anesthesia Volume Adjustment - Provider: Bronson Long CRNA) lactated ringers infusion (CANCELED) 1,000 mL, at 125 mL/hr, Intravenous, CONTINUOUS, Starting on Christa 06/03/23 at 2200, Until 06/04/23 at 1058 2200 (New Bag - Provider: Paddy Arthur RN) PRN Medication Order 06/03/2023 06/04/2023 06/05/2023 BUpivacaine (pf) (Marcaine) (2.5 mg/mL) 0.25% injection (CANCELED) PRN, Starting on Christa 06/03/23 at 1656, Until 06/05/23 at 1350, Intra-Operative (Intra-Procedure), Routine 1656 (Given - Provider: Sebastian Ribeiro MD - Comment: trocar sites.) chlorproMAZINE (Thorazine) tablet 50 mg 50 mg, Oral, DAILY PRN, Starting on Wed06/04/23 at 1322, Until 06/05/23 at 1350, Anxiety, Routine dextrose 10% infusion(Linked Group 3) 250 mL, at 1,000 mL/hr, Intravenous, EVERY 15 MIN PRN, Starting on Wed06/04/23 at 0844, Until 06/05/23 at 1350, For BG 50-70 mg/dL: Oral treatment preferred: [...] insulin orders before administering the next dose. fentaNYL (pf) (50 mcg/mL) multi-dose injection 25 mcg (CANCELED)(Linked Group 4) 25 mcg, Intravenous, EVERY 5 MIN PRN, Starting on Christa 06/03/23 at 2033, Until 06/04/23 at 0139, Pain, Mild to moderate pain (1-5 out of 10), Hold for respiratory rate less than 10 per minute. Maximum dose 200 mcg over one hour, including OR administration. If ordered with HYDROmorphone or morphine, give HYDROmorphone or morphine first and use fentaNYL for breakthrough pain., PACU Recovery, Routine 2044 (Given - Provider: Paddy Arthur RN)2058 (Given - Provider: Paddy Arthur, RN)2121 (Given - Provider: Paddy Arthur, RN)2199 (Given - Provider: Paddy Arthur, RN) glucagon (Glucagen) (1 mg/mL) injection solution 1 mg(Linked Group 3) 1 mg, Intramuscular, EVERY 15 MIN PRN, Starting on 06/04/23 at 0844, Until 06/05/23 at 1350, Low blood sugar, For BG 50-70 mg/dL: [...] dose. , Routine glucose (Glutose) 40% oral geL(Linked Group 3) 15-30 g of glucose, Buccal, EVERY 15 MIN PRN, Starting on Wed06/04/23 at 0844, Until 06/05/23 at 1350, Low blood sugar, For BG 50-70 mg/dL: [...] grams.), Routine hydrALAZINE (Apresoline) (20 mg/mL) injection 20 mg 20 mg, Intravenous, EVERY 4 HOURS PRN, Starting on Wed06/04/23 at 1804, Until 06/05/23 at 1350, High Blood Pressure, for SBP>180, hold for HR>100, use after labetalol 0734 (Given - Provider: Gustabo Russ RN) HYDROmorphone (Dilaudid) (0.2 mg/1 mL) injection syringe 0.2 mg (CANCELED) 0.2 mg, Intravenous, EVERY 2 HOURS PRN, Starting on Christa 06/03/23 at 2144, Until Wed06/04/23 at 0628, Pain, Moderate-Severe pain 6-10, For breakthrough pain not responsive to oxyCODONE or if patient is unable to tolerate PO due to nausea., Routine 0144 (Given - Provider: Paddy Arthur RN)0458 (Given - Provider: Paddy Arthur RN) HYDROmorphone (Dilaudid) (2 mg/mL) multi-dose injection solution 0.4 mg (CANCELED)(Linked Group 5) 0.4 mg, Intravenous, EVERY 10 MIN PRN, Starting on Christa 06/03/23 at 2033, Until Wed06/04/23 at 0139, Pain, For Mild to Moderate Pain (1-5 out of 10), Hold for respiratory rate less than 10 per minute. Maximum dose 4 mg over one hour including administrations in the OR. If multiple pain medications are ordered, start with HYDROmorphone or morphine and use fentaNYL for breakthrough pain., PACU Recovery, Routine 2343 (Given - Provider: Paddy Arthur RN)2353 (Given - Provider: Paddy Arthur RN) hydrOXYzine (Atarax) (2 mg/mL) oral liquid 25 mg 25 mg, Oral, 3 TIMES DAILY PRN, Starting on Wed06/04/23 at 1319, Until 06/05/23 at 1350, Itching, Routine insulin lispro (HumaLOG;Admelog) (100 unit/mL) subcutaneous injection vial 0-3 Units 0-3 Units, Subcutaneous, 3 TIMES DAILY PRN, Starting on Wed06/04/23 at 1332, Until 06/05/23 at 1350, with snacks, [employer] Give 1 unit for every 12 grams carbohydrate. Hold if not eating or if BG less than 70 mg/dL., Routine labetaloL (Normodyne) (5 mg/mL) injection solution 10 mg (CANCELED)(Linked Group 6) 10 mg, Intravenous, EVERY 15 MIN PRN, Starting on Christa 06/03/23 at 2034, Until Wed06/04/23 at 0139, High Blood Pressure, Administer for systolic blood pressure greater than 160 mmHg. Administer 10 mg over 2 minutes. May repeat every 15 minutes if SBP remains above goal. If inadequate effect with 10 mg dose, then increase dose to 20 mg for subsequent dosing every 15 minutes. Do not exceed 300 mg per day. Hold if pulse is less than 45 beats per minute. If multiple antihypertensives ordered, use labetaloL first and if ineffective use hydrALAZINE second and if ineffective use niCARdipine infusion., PACU Recovery, Routine 2099 (Given - Provider: Paddy Arthur RN) labetaloL (Normodyne) (5 mg/mL) injection solution 20 mg 20 mg, Intravenous, EVERY 2 HOURS PRN, Starting on Wed06/04/23 at 1804, Until 06/05/23 at 1350, High Blood Pressure, For SBP>180, hold for HR<60, use before hydralazine, Routine lidocaine (Xylocaine) 1% (10 mg/mL) injection 3 mg 3 mg (0.3 mL), Subcutaneous, ONCE PRN, 1 dose, Starting on Christa 06/03/23 at 2144, Until 06/05/23 at 1350, for discomfort with PIV insertion, Recovery (Recovery-Hospital Unit), Routine methocarbamoL (Robaxin) tablet 500 mg 500 mg, Oral, 3 TIMES DAILY PRN, Starting on Christa 06/03/23 at 2144, Until 06/05/23 at 1350, Muscle spasms, Cut in half and give both halves, Routine ondansetron (pf) (Zofran) (2 mg/mL) injection 4 mg (CANCELED) 4 mg, Intravenous, EVERY 30 MIN PRN, 2 doses, Starting on Christa 06/03/23 at 2033, Until Wed06/04/23 at 0139, Nausea, Maximum total dose of 8 mg (including OR administration). If multiple antiemetics ordered, use ondansetron first and if ineffective use prochlorperazine or haloperidoL second, PACU Recovery 1999 (Given - Provider: Paddy Arthur RN) oxyCODONE (Roxicodone) (1 mg/mL) oral liquid 5 mg 5 mg, Oral, EVERY 6 HOURS PRN, Starting on Christa 06/03/23 at 2144, Until 06/05/23 at 1350, Pain, Moderate-Severe pain 4-10, Routine 0834 (Given - Provider: Gogo Riley RN) 0727 (Given - Provider: Gustabo Russ RN) prochlorperazine (Compazine) (5 mg/mL) injection 10 mg 10 mg, Intravenous, EVERY 6 HOURS PRN, Starting on Christa 06/03/23 at 2144, Until 06/05/23 at 1350, Nausea, Vomiting, For nausea please use ondansetron as the first choice; prochlorperazine as a second choice. Call provider if not effective., Routine 2335 (Given - Provider: Paddy Arthur RN) 0737 (Given - Provider: Gustabo Russ RN) sodium chloride 0.9 % (flush) (BD PosiFlush Normal Saline 0.9) flush 5-20 mL 5-20 mL, Intravenous, EVERY 1 MIN PRN, Starting on Christa 06/03/23 at 2144, Until 06/05/23 at 1350, flush, Flush pertains to all indwelling lines. Flush per protocol found in the job aid using the link provided on this medication record., Recovery (Recovery-Hospital Unit), Routine No Frequency Medication Order 06/03/2023 06/04/2023 06/05/2023 glucose 40% oral geL (Glutose) 40 % gel (COMPLETED) 1 dose, Starting on Christa 06/03/23 at 1322, Until Christa 06/03/23 at 1358, TABITHA GUERIN: cabinet override 1 tube of Glutose-15 contains 15 grams of glucose (net weight of tube = 37.5 grams.) 1340 (Given - Provider: Jeromy Samson RN - Comment: Blood sugar of 60)1358 (Given - Provider: Jeromy Samson RN - Comment: Blood sugar of 53) Linked Groups Order Group 1: POCT Fingerstick Glucose (CANCELED) Routine, 4 TIMES DAILY BEFORE MEALS & AT BEDTIME, First occurrence on Christa 06/03/23 at 2200, Until Specified, Consider choosing FOUR TIMES A DAY BEFORE MEALS AND AT BEDTIME as frequency for: Patients who have good hypoglycemia awareness: -Patients who are eating meals during the day and sleeping at night -Patients who are otherwise stable And insulin lispro (HumaLOG;Admelog) (100 unit/mL) subcutaneous injection vial 1-4 Units (CANCELED)Jump to med 1-4 Units, Subcutaneous, 3 TIMES DAILY BEFORE MEALS, First dose on Wed06/04/23 at 0730, Until Discontinued, CORRECTION BOLUS [1-4 Units] Sensitive Sliding Scale (BG in mg/dL): Correction factor 40 (1 unit of insulin is expected to drop the glucose 40 mg/dL) ?? BG 160 - 200 Give 1 unit BG 201 - 240 Give 2 units BG 241 - 280 Give 3 units and recheck BG in 2 hours. BG greater than 280, give 4 units and recheck BG in 2 hours. - If recheck BG is LESS than 280, give no insulin and resume schedule - If recheck BG is GREATER than or EQUAL to 280, give 4 units and repeat BG in 2 hours & call for new insulin orders. DO NOT hold if NPO, unless specifically told to do so. ?? Per Inpatient Subcutaneous Insulin Policy, recheck a BG of greater than 240 mg/dL in 2 hours., Routine Group 2: POCT Fingerstick Glucose (CANCELED) Routine, EVERY 4 HOURS, First occurrence on Wed06/04/23 at 0850, Until Specified, Consider choosing EVERY 4 HOURS as frequency for: - Type 1 Diabetes - At least 24 hours after coming off an insulin drip - At least 24 hours after admission for DKA - Hypoglycemia unawareness - Patients who are otherwise unstable Select the same frequency for the correction bolus insulin order And insulin lispro (HumaLOG;Admelog) (100 unit/mL) subcutaneous injection vial 1-4 UnitsJump to med 1-4 Units, Subcutaneous, EVERY 4 HOURS SCHEDULED, First dose on Wed06/04/23 at 0915, Until Discontinued, CORRECTION BOLUS [1-4 Units] Sensitive Sliding Scale (BG in mg/dL): Correction factor 40 (1 unit of insulin is expected to drop the glucose 40 mg/dL) ?? BG 160 - 200 Give 1 unit BG 201 - 240 Give 2 units BG 241 - 280 Give 3 units and recheck BG in 2 hours. BG greater than 280, give 4 units and recheck BG in 2 hours. - If recheck BG is LESS than 280, give no insulin and resume schedule - If recheck BG is GREATER than or EQUAL to 280, give 4 units and repeat BG in 2 hours (no more than 3 times)??& call for new insulin orders. DO NOT hold if NPO, unless specifically directed to do so by written order. ?? Per Inpatient Subcutaneous Insulin Policy, recheck a BG of greater than 240 mg/dL in 2 hours., Routine Group 3: glucose (Glutose) 40% oral geLJump to med 15-30 g of glucose, Buccal, EVERY 15 MIN PRN, Starting on Wed06/04/23 at 0844, Until 06/05/23 at 1350, Low blood sugar, For BG 50-70 mg/dL: [...] Intravenous, EVERY 15 MIN PRN, Starting on Wed06/04/23 at 0844, Until 06/05/23 at 1350, For BG 50-70 mg/dL: Oral treatment preferred: [...] Intramuscular, EVERY 15 MIN PRN, Starting on Wed06/04/23 at 0844, Until 06/05/23 at 1350, Low blood sugar, For BG 50-70 mg/dL: [...] the next dose. , Routine Group 4: fentaNYL (pf) (50 mcg/mL) multi-dose injection 25 mcg (CANCELED)Jump to med 25 mcg, Intravenous, EVERY 5 MIN PRN, Starting on Christa 06/03/23 at 2033, Until Wed06/04/23 at 0139, Pain, Mild to moderate pain (1-5 out of 10), Hold for respiratory rate less than 10 per minute. Maximum dose 200 mcg over one hour, including OR administration. If ordered with HYDROmorphone or morphine, give HYDROmorphone or morphine first and use fentaNYL for breakthrough pain., PACU Recovery, Routine Or fentaNYL (pf) (50 mcg/mL) multi-dose injection 50 mcg (CANCELED) 50 mcg, Intravenous, EVERY 5 MIN PRN, Starting on Christa 06/03/23 at 2032, Until Wed06/04/23 at 013, Pain, Moderate to severe pain (6-10 out of 10), Hold for respiratory rate less than 10 per minute. Maximum dose 200 mcg over one hour, including OR administration. If ordered with HYDROmorphone or morphine, give HYDROmorphone or morphine first and use fentaNYL for breakthrough pain., PACU Recovery, Routine Group 5: HYDROmorphone (Dilaudid) (2 mg/mL) multi-dose injection solution 0.4 mg (CANCELED)Jump to med 0.4 mg, Intravenous, EVERY 10 MIN PRN, Starting on Christa 06/03/23 at 2032, Until Wed06/04/23 at 013, Pain, For Mild to Moderate Pain (1-5 out of 10), Hold for respiratory rate less than 10 per minute. Maximum dose 4 mg over one hour including administrations in the OR. If multiple pain medications are ordered, start with HYDROmorphone or morphine and use fentaNYL for breakthrough pain., PACU Recovery, Routine Or HYDROmorphone (Dilaudid) (2 mg/mL) multi-dose injection solution 0.6 mg (CANCELED) 0.6 mg, Intravenous, EVERY 10 MIN PRN, Starting on Christa 06/03/23 at 2032, Until Wed06/04/23 at 013, Pain, For Moderate to Severe Pain (6-10 out of 10), Hold for respiratory rate less than 10 per minute. Maximum dose 4 mg over one hour including administrations in the OR. If multiple pain medications are ordered, start with HYDROmorphone or morphine and use fentaNYL for breakthrough pain., PACU Recovery, Routine Group 6: labetaloL (Normodyne) (5 mg/mL) injection solution 10 mg (CANCELED)Jump to med 10 mg, Intravenous, EVERY 15 MIN PRN, Starting on Christa 06/03/23 at 2033, Until Wed06/04/23 at 0139, High Blood Pressure, Administer for systolic blood pressure greater than 160 mmHg. Administer 10 mg over 2 minutes. May repeat every 15 minutes if SBP remains above goal. If inadequate effect with 10 mg dose, then increase dose to 20 mg for subsequent dosing every 15 minutes. Do not exceed 300 mg per day. Hold if pulse is less than 45 beats per minute. If multiple antihypertensives ordered, use labetaloL first and if ineffective use hydrALAZINE second and if ineffective use niCARdipine infusion., PACU Recovery, Routine Or labetaloL (Normodyne) (5 mg/mL) injection solution 20 mg (CANCELED) 20 mg, Intravenous, EVERY 15 MIN PRN, Starting on Christa 06/03/23 at 2033, Until Wed06/04/23 at 0139, High Blood Pressure, Administer for systolic blood pressure greater than 160 mmHg. Administer 10 mg over 2 minutes. May repeat every 15 minutes if SBP remains above goal. If inadequate effect with 10 mg dose, then increase dose to 20 mg for subsequent dosing every 15 minutes. Do not exceed 300 mg per day. Hold if pulse is less than 45 beats per minute. If multiple antihypertensives ordered, use labetaloL first and if ineffective use hydrALAZINE second and if ineffective use niCARdipine infusion., PACU Recovery, Routine documented in this encounter Care Teams Electroless Plater Relationship Specialty Start Date End Date Lia Pearson [place] [address] [place] [address] PCP - General Geriatric Medicine 02/09/22 documented as of this encounter
--- OUTSIDE RECORDS SUMMARY | 2023-11-26 19:29 | XMS_ITS | Encounter Summary ---
[place] [address] Care Team Providers Care Gymnastics Instructor Name Role Phone Lia Pearson APRN Primary Care Provider [phone] Encounter Details Date Type Department Care Team (Late st Contact Info) Description 06/18/2023 Telephone [place] [id number] Lidya Elise, RN Social History Tobacco Use Types Packs/Day [...] encounter Miscellaneous Notes * Telephone Encounter - Lidya Elise RN - 06/18/2023 12:11 PM EST I returned Zenia's call from 11:47 AM, reporting she has not had a bowel movement since Wednesday. She has been taking Miralax and Colace once per day and has been active and staying well hydrated. Zenia did not answer. I left a voicemail with instructions to take a dose of over the counter milkof magnesia to help stimulate a bowel movement in addition to meeting the 48 oz of water per day and staying mobile recommendations. I've left our number to call back with any questions. documented in this encounter Plan of Treatment Upcoming Encounters Date Type Department Care Team (Late st Contact Info) Description 12/30/2023 2:45 PM EDT TH Visit (TeleHealth) Interventional Radiology at [facility] [place] [address] Michael Morgan, [facility] [place] [address] documented as of this encounter Goals Goal Patient Goal Type Associated Problems Recent Progress Patient-Stated? Author Other (Enter personal goal) Lifestyle On track( 023 1:14 PM EDT) No Riddhi Wilson RD Note: -Add peanut butter to oatmeal -Continue to add beans to meals as a source of protein and fiber -If can, buy fresh vegetables and fruit from [email or web address] market-sent message with resources -Choose whole grain [...] Note: Practice STOP and Urge Surfing. Health Airline Attendant will send hand-outs. Movement Lifestyle On track( 023 1:14 PM EDT) Riddhi Buchanan RD Note: Continue to walk stairs and walks when can. Will continue using stairs as it's colder. Look into finding weights free online or at [employer] stores. Could use water-filled milk jugs as weights-a full gallon jug would be 8 lbs. Will look into nearby rec center 04/16/22 NATHALIA documented as of this encounter Visit Diagnoses Not on filedocumented in this encounter Care Teams Gymnastics Instructor Relationship Specialty Start Date End Date Lia Pearson APRN [address] [place] [address] PCP - General Geriatric Medicine 02/09/22 documented as of this encounter
--- OUTSIDE RECORDS SUMMARY | 2023-11-26 19:29 | XMS_ITS | Encounter Summary ---
Author Organization [facility] [place] [address] Care Team Providers Care Fusion Juncture Grinder Name Role Phone Lia Pearson APRN Primary Care Provider [phone] Encounter Details Date Type Department Care Team (Late st Contact Info) Description 06/08/2023 Orders [place] [phone] Kati Shea PA [facility] [place] [address] S/P bariatric surgery Social History Tobacco Use [...] EDT TH Visit (TeleHealth) [place] [address] Michael Morgan, [facility] [place] [address] documented as of this encounter Goals Goal [...] Note: Practice STOP and Urge Surfing. Health Senior Sql Server Developer will send hand-outs. Movement Lifestyle On track( 1:14 PM EDT) Riddhi Buchanan RD Note: Continue to walk stairs and walks when can. Will continue using stairs as it's colder. Look into finding weights free online or at [employer] stores. Could use water-filled milk jugs as weights-a full gallon jug would be 8 lbs. Will look into nearby [facility] 04/16/22 NATHALIA documented as of this encounter Visit Diagnoses Diagnosis S/P bariatric surgery Bariatric surgery status documented in this encounter Care Teams Fusion Juncture Grinder Relationship Specialty Start Date End Date Lia Pearson APRN [address] [place] [address] PCP - General Geriatric Medicine 02/09/22 documented as of this encounter
--- OUTSIDE RECORDS SUMMARY | 2023-11-26 19:29 | XMS_ITS | Encounter Summary ---
[place] [address] Care Team Providers Care Record Press Supervisor Name Role Phone Lia Pearson APRN Primary Care Provider [phone] Encounter Details Date Type Department Care Team (Late st Contact Info) Description 05/25/2023 Telephone [place] [phone] Lidya Elsie RN Social History Tobacco Use Types Packs/Day [...] Telephone Encounter - Lidya Elise RN - 05/25/2023 11:28 AM EST I spoke with Zenia today. I've confirmed she is no longer taking ozempic. She will hold her jardiance and mounjaro for one week prior to her surgery on 06/03. She also notes she had reached out to her OB team to let them know she does not want to have the IUD placed during her surgery, as scheduled. She had been directed to contact Dr. Contreras. I have sent a message to our OR schedulers to assist in removing the secondary procedure from her scheduled surgery. documented in this encounter Plan of Treatment Upcoming Encounters Date Type Department Care Team (Late st Contact Info) Description 12/30/2023 2:45 PM EDT TH Visit (TeleHealth) Interventional Radiology [place] [address] Michael Morgan, [facility] [place] [address] documented as of this encounter Goals Goal Patient Goal Type Associated Problems Recent Progress Patient-Stated? Author Other (Enter personal goal) Lifestyle On track( 023 1:14 PM EDT) No Riddhi Wilson RD Note: -Add peanut butter to oatmeal -Continue to add beans to meals as a source of protein and fiber -If can, buy fresh vegetables and fruit from [employer]-sent message with resources -Choose whole grain [...] Note: Practice STOP and Urge Surfing. Health Auxiliary Equipment Operator will send hand-outs. Movement Lifestyle On track( 023 1:14 PM EDT) Riddhi Buchanan RD Note: Continue to walk stairs and walks when can. Will continue using stairs as it's colder. Look into finding weights free online or at [employer] stores. Could use water-filled milk jugs as weights-a full gallon jug would be 8 lbs. Will look into nearby rec center 04/16/22 NATHALIA documented as of this encounter Visit Diagnoses Not on filedocumented in this encounter Care Teams Record Press Supervisor Relationship Specialty Start Date End Date Lia Pearson APRN [address] [place] [address] PCP - General Geriatric Medicine 02/09/22 documented as of this encounter
--- OUTSIDE RECORDS SUMMARY | 2023-11-26 19:29 | XMS_ITS | Encounter Summary ---
[place] [address] Care Team Providers Care Steam Heating Installer Name Role Phone Lia Pearson APRN Primary Care Provider [phone] Encounter Details Date Type Department Care Team (Late st Contact Info) Description 06/10/2023 Telephone [place] [phone] Lidya Elise RN Social History Tobacco Use Types Packs/Day [...] Telephone Encounter - Lidya Elise RN - 06/10/2023 3:00 PM EST Zenia called the clinic today, reporting she has been feeling tired after eating. She denies any abdominal pain, nausea or vomiting. I assured her it is normal to feel fatigued after eating after bariatric surgery as she adjusts to her new anatomy; it will take more energy for herto digest food for a while. She verbalizes understanding and thanked me for the call back. documented in this encounter Plan of Treatment Upcoming Encounters Date Type Department Care Team (Late st Contact Info) Description 12/30/2023 2:45 PM EDT TH Visit (TeleHealth) [place] [phone] Michael Morgan, [facility] [place] [address] documented as of this encounter Goals Goal Patient Goal Type Associated Problems Recent Progress Patient-Stated? Author Other (Enter personal goal) Lifestyle On track( 023 1:14 PM EDT) Riddhi Buchanan RD Note: -Add peanut butter to oatmeal -Continue to add beans to meals as a source of protein and fiber -If can, buy fresh vegetables and fruit from [employer]-sent message with resources -Choose whole grain [...] Note: Practice STOP and Urge Surfing. Health Server Assistant will send hand-outs. Movement Lifestyle On track( 023 1:14 PM EDT) Riddhi Buchanan RD Note: Continue to walk stairs and walks when can. Will continue using stairs as it's colder. Look into finding weights free online or at [employer] stores. Could use water-filled milk jugs as weights-a full gallon jug would be 8 lbs. Will look into nearby [facility] 04/16/22 NATHALIA documented as of this encounter Visit Diagnoses Not on filedocumented in this encounter Care Teams Steam Heating Installer Relationship Specialty Start Date End Date Lia Pearson APRN [address] [place] [address] PCP - General Geriatric Medicine 02/09/22 documented as of this encounter
--- OUTSIDE RECORDS SUMMARY | 2023-11-26 19:29 | XMS_ITS | Encounter Summary ---
Author Organization Formerly [facility] [place] [address] Care Team Providers Care Alkylation Operator Name Role Phone Lia Pearson JULIO C Primary Care Provider [phone] Encounter Details Date Type Department Care Team (Late st Contact Info) Description 03/24/2023 1:00 PM EST Office [place] [address] Asiya Giraldo APRN [facility] [place] [address] Deneen Nicholas, [facility] [place] [address] Class 3 severe obesity with serious comorbidity and body mass index (BMI) of 60.0 to 69.9 in adult, unspecified obesity type; Encounter for pre-bariatric surgery counseling and education Social History Tobacco Use Types Packs/Day Years Used Date Smoking Tobacco: Former Smokeless Tobacco: Never Alcohol Use Standard Drinks/Week Comments Not Currently 0 (1 standard drink = 0.6 oz pur e alcohol) Sex and Gender Information Value Date Recorded Sex Assigned at Not on file Gender Identity Not on file Sexual Orientation Not on file documented as of this encounter Patient Instructions * Patient Instructions* Asiya Giraldo APRN - 03/24/2023 1:00 PM EST [facility] BARIATRIC SUPPORT TEAM CONTACT NUMBERS (Mon-Fri 8am - 5pm): General Surgery and Bariatric Surgery [phone] Bariatric Surgeons: Doctors. Godinez [phone] Joint Sealer: [phone] Dietitians: [phone] Outside of regular business hours, including weekends and holidays: Ask for General Surgery resident nylon operator [phone] BEFORE YOUR SURGERY: Questions for your doctor, specialist or pharmacist: Ask your doctor about medication suggestions if you currently take medications that are larger than the size of a tylenol or calcium pill. Large pills need to be crushed (if permitted by the drug guest experience captain), taken in smaller size pills, or taken in liquid form for TWO WEEKS after surgery. If you take antinflammatory medications or steroid medications for arthritis or asthma, please check with your doctor. These medications will need to be held 1 week prior to and at least a few weeks after surgery. Oral contraceptive pills, post menopausal hormones, and male hormones should be stopped 1 month before and 1 month after surgery. If you have sleep apnea be sure to bring your CPAP/BiPAP with you to the hospital. Schedule a follow up appointment with your primary care provider 10-14 days after your surgery. Bring your handbook with you to the hospital AFTER YOUR SURGERY: GENERAL BARIATRIC SURGERY DISCHARGE INFORMATION (some information specific to health problems list below may not pertain to you) FOR EMERGENCIES: CALL 911 (trouble breathing, chest pain, rapid heart rate or severe abdominal pain) CALL THE BARIATRIC TEAM FOR ANY OF THE FOLLOWING: Signs and symptoms of infection such as: - Redness or swelling or new significant drainage from wounds - Drainage or bleeding from wounds - Fever over 101 degrees Fahrenheit, or shaking chills Persistent diarrhea or vomiting or inability to keep down food or fluids down in a 24 hour period. Signs / symptoms of a blood clot: leg swelling, redness, or pain Problems with urination or constipation, worsening abdominal pain not controlled with pain medication Any concerns you may have after your surgery Follow up Information: You will be given a surgical follow-up appointment with The Bariatric Surgery Team in 3-4 weeks at the General Surgery Outpatient Clinic ([facility] [address], [facility]). BATHING AND WOUND CARE: You may shower 2 days after surgery Wash incisions with unscented mild soap Rinse, pat dry and leave open to air. Remove Steri-strips if they don't fall off by 7-10 days after discharge. Pat dry if they become wet. Do not soak wound (no baths, no swimming) for 3 weeks after surgery ACTIVITY, LIFTING AND DRIVING: For laparoscopic surgery: there are no lifting restrictions. Lift when you feel comfortable. Do not drive for 2 weeks. After [address] when comfortable and not taking narcotic pain medicine. DIET: Follow Stage II diet for two weeks. Keep a log of your intake: Daily goals are: 48-64 ounces of fluids and 60 grams of protein. MEDICATIONS: For 2 WEEKS: LARGE pills (bigger than the size of a calcium pill) must be crushed, Capsules must beopened onto applesauce or pudding. Pills smaller than the size of a calcium DO NOT need to be crushed. Not all medications can be crushed. Check with your pharmacist if unsure. HOLD bariatric vitamins for 2 weeks after surgery BLOOD CLOT PREVENTION: Be active, walk at least 4 times a day and do blood clot prevention exercises in your handbook on page 82. Some patients will be discharged on enoxaparin twice a day for 10 days to prevent blood clots, which is determined by the surgeon. IF YOU ARE TREATED FOR OBSTRUCTIVE SLEEP APNEA: IMPORTANT - you MUST use your CPAP/ BIPAP after surgery while sleeping at night and also when napping during the day because some medications you may have been prescribed at discharge can decrease your breathing. Follow up with the Sleep Center if pressure seems to be too high. ULCER PREVENTION: IMPORTANT - you must take acid suppressing medication such as pantoprazole, nexium or omeprazole for 3 MONTHS after surgery. This is taken to prevent ulcers at your surgical sites internally, even ifyou do not have heartburn. omeprazole 20 mg daily (or another medication you may currently take for heartburn/reflux that has been discussed with Bariatric Team) Omeprazole capsules contain enteric-coated, delayed-release granules. Because these granules shouldnot be chewed or crushed, you must OPEN the capsules, sprinkle the enteric-coated granules on applesauce or yogurt. Alternatively, you may take the granules with apple juice, or swallow them quickly with water. Follow any of these methods with additional water to ensure that you have swallowed the granules completely. If your insurer does not cover omeprazole, or similar medications such as pantoprazole, you must purchase these medications over the counter. Decrease the medication to every other day when you have 7 days left in your prescription. Continuethis after the initial 3 month course if you have heartburn or reflux If you have Medrano's esophagus, continue the medication terminal superintendent GALLSTONE PREVENTION: If you have had your gallbladder REMOVED - you do not need this medication. If you have your gallbladder after Bariatric Surgery - you must take start taking Ursodiol (Actigall) 300 mg twice a day to prevent gallstones. You may START this medication 2 weeks after surgery fora duration of 6 months. After that, you may stop this medication unless otherwise directed. PAIN MEDICATION: Your pain should lessen with [...] Do NOT use NSAIDS (ibuprofen, Motrin, Aleve, Toradol, aspirin, etc.) to adjunct your pain control. Opioids [...] address this. OTHER MEANS FOR PAIN RELIEF: Other than medications. Learn deep breathing exercises or meditation to [...] SURGERY: Discontinue anti-inflammatory non-steroidal medications, such as Celebrex, Mobic, Advil (ibuprofen), Aleve (naprosyn), etc. Refer to Medications that may increase the risk of bleeding in handbook. If you do take aspirin for your heart or to prevent strokes, continue as prescribed. CONSTIPATION: Be sure you are meeting your fluid goals and moving/walking. Take 1 capful of miralaxdaily (preferably at night) with a goal of [...] daily but continue to take miralax every day. WOMEN OF CHILDBEARING AGE: Fertility may increase [...] Follow up with primary care provider or data warehousing specialist in 1-2 weeks in order to adjust your changing diabetes treatment requirements. PATIENTS WITH HIGH BLOOD PRESSURE: Monitor your blood pressure regularly. If you feel dizzy and have been drinking 48-64 ounces of fluid, have your blood pressure checked. If your blood pressure is low, call your primary care provider. Keep a log to bring to your PCP appointments. PATIENTS WHO TAKE DIURETICS (WATER PILLS) such as furosemide, HCTZ (hydrochlorothiazide), spironolactone: Check with your surgical team prior to discharge for instructions. In general, this medication is stopped after surgery, as you are at risk for dehydration after Bariatric Surgery. Monitor yourself for any swelling of legs or gain of water weight after medication is stopped. Call your primary care doctor if you notice this. PATIENTS ON ANTI-DEPRESSANT OR MENTAL HEALTH MEDICATIONS: Do not stop or decrease your medications unless advised. Ongoing counseling is encouraged. Some patients notice a change in their mood early after surgery, if you are having difficulty coping with the lifestyle or dietary changes associated with surgery please follow up with your primary care provider or your mental health provider. Important to have non-food related ways to cope with stress. VITAMIN AND MINERAL SUPPLEMENTATION: START at 2 [...] You should follow up with your surgeon or bariatric nurse practitioner and dietitian at 3-4 weeks after surgery. You will follow up with the dietitian and Bariatric nurse practitioner at 4, 12 months, then yearlyfor life. Vitamins and supplements are required for life. Pre-op Class Nutrition Outline PRE-OP DIET Important to follow pre-op diet for full 2 weeks before surgery to shrink the liver and make it more pliable for the surgeons. Your Goals: 800-1000 Calories 80-100 grams Carbohydrates 60-80 grams Protein (men or people with a BMI over 50 should aim for 80 grams per day) 48-64 ounces of Hydrating Fluid Log intake before your meal. Try to log a day of meals in advance. HYDRATING FLUIDS AVOID soda, alcohol, caffeine, and juice or other sweetened beverages Wait 30 minutes before and after meals to drink fluids Stay hydrated to prevent dehydration, constipation, and kidney stones DIET STAGES Stay on the Stage 2 diet for 2 full weeks to allow the stomach to heal safely, decrease risk of blockage or intolerance, and to help with early weight loss. VITAMINS AND MINERALS FOR LIFE Start vitamins and minerals 2 weeks after surgery MVM- one taken twice per day Calcium Citrate- 2119-0425 mg daily total, 500-600 mg taken two-three times per day B-12- 500 mcg daily (sublingual or oral) Iron 50-66 mg daily if anemic or still having menstrual cycles. (Space 2 hours apart from Calcium.) Take bariatric supplements as directed on the label PROTEIN SUPPLEMENTS At least 20 g protein per serving (1 scoop or ???[id number]?? ) Under 200 calories for ???[id number]-fzcqq?? Under 100 calories per scoop for powder Under 5 g sugar (under 10 g total carb) Whey or soy based VOMITING/ DUMPING SYNDROME/FOOD INTOLERANCE Causes of vomiting: eating too fast or too much, improper chewing, drinking with meals, and eating foods you do not tolerate Dumping Syndrome: Caused when excess carbs or fats are dumped into the small intestine and it has trouble managing the excess Late Phase Dumping: Can occur 2-4 hours after meal, high carbohydrate load in the intestine increases blood sugar and insulin release. Excess insulin takes out too much blood sugar and causes low blood sugar. Treat with the 15/15 rule. Food Intolerance: Caused when the stomach pouch is having trouble digesting foods. TRACKING FOOD AND FLUID INTAKE Very important! Helps to ensure you are meeting your daily goals and taking required supplementation. Helps you to determine which foods you may not tolerate or cause dumping syndrome. CAUSES OF WEIGHT REGAIN It is not uncommon to have a little weight rebound a couple of years out from surgery Not enough protein, fluid or physical activity Emotional eating Grazing/ snacking on high carb, low nutrient foods Lack of personal responsibility for staying on track and in control TIPS FOR SUCCES CHEW, CHEW, CHEW!!! Add one new food at a time Eat VERY slowly Drink between meals Measure food & beverages Stay mindful, listen to your body Pay attention to your hunger Plan your meals & snacks, shop with a list Survival Tips for the First Month after Surgery Keep it simple. Focus on the positives in your life. Everything will get easier with time. MEDICATION INFORMATION: All bariatric surgery prescriptions, including narcotics and enoxaparin (if needed), will be provided during your inpatient stay. The prescription is typically sent to the [facility] Pharmacy at discharge. Take the medication to prevent ulcer (omeprazole or similar medications) for 3 full months, even ifyou do not have heartburn. START at discharge. You can discontinue after 3 months as long as you are not having any heartburn or reflux. Take ursodiol (Actigall) for 6 full months to prevent gallstones (if you have a gallbladder). STARTat 2 weeks after surgery. Supplements for LIFE: START at 2 weeks after surgery. Take chewable multivitamin with minerals and iron twice a day, vitamin B12 500 mcg daily and calcium citrate 500-600 mg with vitamin D 400 IU twice a day. If you take a bariatric specific multivitamin, follow directions on bottle. Iron with vitamin C should be taken only if you have anemia, iron deficiency or regular periods. If you take medications for depression and/or anxiety, stay on these medications for at least 6 months after surgery. Do not attempt to taper without medical supervision. Counseling is recommended. Avoid narcotic pain medication if possible. Narcotics, such as oxycodone, may cause nausea, constipation and strange dreams. Try acetaminophen (Tylenol) instead. A heating pad/hot water bottle can also provide pain relief. NUTRITION TIPS: You will feel full very quickly with very small amounts of food. This is NORMAL. You are unlikely to feel hungry- this is also normal. Foods may taste different than prior to surgery. You must eat 3 meals a day, despite a lack of hunger. Journal your intake every day so that you know how much protein and fluids you are getting. Add a snack or two if needed to get closer to the goal of 60 grams of protein a day. Reaching goalswill be difficult to achieve in the first month or two after surgery. Make sure to sip rather than gulp water throughout the day (within the 30-30-30 rule). Carry a water bottle everywhere you go. The stage 2 diet must be followed for 14 days. It is BORING, but follow it anyway. It will help your stomach heal faster. Advancing the diet can make you sick. Weight: plateaus are normal, even early after surgery. Don't be discouraged. Avoid weighing yourself daily. You will likely gain some weight in the hospital due to intravenous fluids. Bowels: You may have loose bowels after surgery or be constipated. If you have not had a BM within 2 days, take Pamella-Lax or milk of magnesia. Increasing water intake and walking is helpful. Call if no BM after 3 days. Activity: Be active, walking at least 4 times a day to prevent blood clots. After surgery, it is normal to feel tired. Take a nap if you feel tired. Some patients find sleeping in a recliner more comfortable early post-surgery. [facility] Post-Bariatric Surgery Events Calendar Date Time period Activity Comments Day of discharge Start medication to prevent ulcer such as omeprazole. Don't take meds that can cause ulcers such as Advil, Excedrin, Aleve etc for at least 2 months If you took heartburn medication such as Nexium or Prevacid prior to surgery you can take it instead of omeprazole. The prescription is sent at discharge, but is available over the counter. Stay on stage 2 diet for 2 full weeks If ordered, start injections (enoxaparin) Inject twice a day for 10 days to prevent blood clots. hose coupling joiner prescription at [facility] Pharmacy 2 weeks post surgery If you have a gallbladder, start Ursodiol . Take for 6 months to prevent gallstones This prescription is sent at discharge. Call the pharmacy to check lu first, if >$200, call us to rewrite prescription via [facility] Start stage 3 diet Start vitamins and supplements Visit with PCP to check your overall health, including blood pressure, diabetes, mental health, etc. If you have diabetes or take lots of blood pressure medications and/ or fluid pills, see your PCP at 1 week post-op 3 weeks: visits with surgeon or BOX STAMPER and dietitian Bring diet logs and complete list of medications, vitamins/supplements including dose and type (or take photos) 4 weeks Start stage 4 diet This is your meal plan for life 3 months Stop ulcer prevention medication. Taper the doses to every other day for a week prior to ending the prescription If you have heartburn, call your PCP for refill also available over the counter. Do not taper medication if you have Medrano's esophagus 4 months: Visits with RD /BOX STAMPER Bring complete list of medications and supplements including dose and type (or take photos) Have lab work done before your appointment. Bring copies of any labwork that may have been done by your PCP 6.5 months Stop Ursodiol. No refills are needed. [address]/BOX STAMPER Bring complete list of medications and supplements including dose and type (or take photos) Have lab work done before your appointment. Bring copies of any labwork that may have been done by your PCP* 2 years and yearly for life visits with RD/BOX STAMPER Bring complete list of medications and supplements including dose and type (or take photos) Have lab work done before your appointment. Bring copies of any labwork that may have been done by your PCP Abbreviations: RD: registered dietitian. BOX STAMPER: nurse practitioner documented in this encounter Progress Notes * Asiya Giraldo APRN - 03/24/2023 1:00 PM EST BARIATRIC SURGERY PROGRAM [place] [address] Reason for visit: [facility] for up coming bariatric surgery Zenia attended a comprehensive group pre-operative class today, which included discussion of pre and post operative instructions included in the [facility] Bariatric Surgery Program Education Handbook. The nutrition component of the class was taught by the BSP RD. Patient completed health update form. Pt reminded to stop Mounjaro, Jardiance and Ozempic 1 week before surgery. OK to continue with norethindrone per Dr. Contreras No new medical issues/ED visit. Medications/allergies are reviewed, otherwise today's visit was group visit. Surgery info: Patient is scheduled for laparoscopic Lobo-en-Y gastric bypass on 04/07/[address] Contreras. Follow up with hematology - Per Dr. Yang . No evidence of bleeding disorder. From hematology standpoint, she is cleared to undergo bariatric surgery as planned. 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 Anesthesia consult (re: cardiac PMH including NSTEMI) (02/12/23). Completed consult today. Pre-Bariatric Surgery Obesity related medical issues: Problem Baseline issue if checked Comments Diabetes/prediabetes/insulin resistance [x] Taking Jardiance, Ozempic, Metformin, insulin Metabolic syndrome or PCOS [x] Diabetes, blood pressure, waist circumference >35 in. HTN [x] Taking Laxis, Losartan, Metoprolol GERD [x] Heartburn several times/week. No current RX. Nexium in the past (no rx since age 16). Hyperlipidemia [x] Taking statin [place] [x] Using CPAP Musculoskeletal issues [] Liver Disease [] Other [] Post Bariatric Surgery Medications: Extended VTE prophylaxis post surgery Indicated, to be started at discharge. Hx bleed, has hematology visit 02/23/23. Ursodiol gallstone prophylaxis Indicated, to be prescribed at discharge. PPI ulcer prophylaxis Indicated, to be prescribed at discharge. Contraception abstinence . Visit date Wt (lbs) BMI HT Highest WT 533 - 5'6 Pre-op 10/13/22 408 01/26/23 405 65.4 02/12/23 406 65.7 Post-op WT BMI %EBW lost Preop labs:labs not yet completed. Reminded patient. Prescriptions provided at today's visit: none Bariatric Surgery Program Pathway and review of status with the requirements of the Bariatric Surgery Program 1. Education: Pt previously attended a Introduction to the [facility] Bariatric Surgery Program seminar,a two hour meeting that provides a program overview as well as expectations. The [facility] Bariatric Surgery Program Educational seminar requirement has been met. The BSP Educational Handbook was providedat visit #1. 2. Pre-operative programmatic evaluations have been done, as noted in previous pathway review. 3. Bariatric Surgery Program evaluations with the surgeon and dietitian have taken place. Zenia has been approved to proceed with surgery by surgeon. 6. Surgical consultation has taken place Next steps in pathway: During hospitalization for bariatric surgery, a standard bariatric surgery order set is followed. Routine post-operative follow up with labwork is done at months 1,4,12 and 24, yearly thereafter, and PRN. High risk patients are followed more frequently. Some of the topics reviewed during group discussion today included: day of surgery and post-op routine care/ locations: Admissions/SDP/PACU/ [place] units medications that increase the risk of bleeding including NSAIDs and anticoagulants to be avoided per guidelines pre and post-operatively DVT/VTE prevention and signs of DVT/PE. Inpatient management for VTE prevention: venodynes, ambulation, Enoxaparin 40 units BID during inpatient stay. Indications for extended Enoxaparin 10 days post discharge: A. patients with BMI >60 or prior VTE OR B. 2 or more of the following: age >50, BMI >50, male gender, sleep apnea, varicose veins, venous insufficiency, history of oral contraceptive or hormone or post-menopausal hormone replacement use within 30 days of surgery, and recent smoking guidelines for patients treated with oral anticoagulants per Thrombosis Clinic diabetes and hypertension monitoring during pre-op diet and post-operatively. Diuretic therapy is held to avoid risk of dehydration unless patient is symptomatic. signs and symptoms of infection as well as emergency signs and symptoms were reviewed common post-operative complaints management of sleep apnea during hospitalization and post operatively. The importance of post-operative follow-up with Sleep Center after weight loss was stressed. recommendations for psychiatric medications: should continue uninterrupted after surgery activity post surgery/ return to work recommendations routine BSP post-operative follow-up: 3 weeks. 4 months, 12 months and yearly for LIFE routine Primary Care post-operative follow up: at 10-14 days after surgery to monitor chronic health problems such as diabetes and hypertension, since the requirement for antihypertensive and diabetic medications may decrease or be discontinued Patient advised to contact our office if they develop COVID sx or test positive for COVID. Discussed increased risk of respiratory complications s/p COVID infection. A preliminary copy of the discharge instructions was provided, which is also available in the patient handbook. Zenia was given the opportunity to ask questions, and all questions were answered. Time spent in counselin minutes * Deneen Nicholas RD - 03/24/2023 1:00 PM EST BARIATRIC SURGERY PROGRAM NUTRITION EDUCATION 2nd Pre-Operative Visit Shared Medical Appointment Zenia Worley attended a 2 hour shared medical appointment today with the bariatric surgery programdietitian and nurse practitioner. Ms. Worley is a female with morbid obesity who has been referred for nutrition evaluation and diet instruction in anticipation of bariatric surgery. Previous conservative attempts at weight loss through dieting have been unsuccessful over the terminal superintendent. Advised patient that bariatric surgery is a weight loss tool not a solution; and ultimately weight loss will be achieved through proper eating and exercise habits. Patient was given a copy of the program handbook at the initial appointment which includes specific information on all nutrition recommendations and guidelines. Pt instructed on importance of following the Pre-operative Surgical Diet. Failure to do so may result in poor pre-surgical weight loss and may result in surgery not being performed. Zenia was given the opportunity to ask questions and all questions were answered. She was also given contact information for further nutrition questions. Nutrition Topics Covered at Today's Appointment: Pre-operative Surgical Diet Purpose of diet Appropriate foods Protein goals Carbohydrate goals Calorie goals Keeping a food log Hydration and Appropriate Beverages Post-Operative Diets (Stages I-IV) Importance of following diet stages Appropriate foods Sample Menus Vitamin/Mineral Supplementation Common Food Intolerances Dumping Syndrome Sugar Alcohols Physical Activity Weight Regain Habits of Successful Bariatric Surgery Patients The appointment consisted of 60 minutes of group education and counseling. documented in this encounter Plan of Treatment Upcoming Encounters Date Type Department Care Team (Late st Contact Info) Description 12/30/2023 2:45 PM EDT TH Visit (TeleHealth) [place] [address] Michael Morgan, [facility] [place] [address] documented as of this encounter Goals Goal Patient Goal Type Associated Problems Recent Progress Patient-Stated? Author Other (Enter personal goal) Lifestyle On track( 023 1:14 PM EDT) Riddhi Buchanan RD Note: -Add peanut butter to oatmeal -Continue to add beans to meals as a source of protein and fiber -If can, buy fresh vegetables and fruit from [employer]-sent message with resources -Choose whole grain [...] Note: Practice STOP and Urge Surfing. Health Rag Baler will send hand-outs. Movement Lifestyle On track( 023 1:14 PM EDT) Riddhi Buchanan RD Note: Continue to walk stairs and walks when can. Will continue using stairs as it's colder. Look into finding weights free online or at [employer] stores. Could use water-filled milk jugs as weights-a full gallon jug would be 8 lbs. Will look into nearby rec center 04/16/22 NATHALIA documented as of this encounter Visit Diagnoses Diagnosis Class 3 severe obesity with serious comorbidity and body mass index (BMI) of 60.0 to 69.9 in adult, unspecified obesity type Encounter for pre-bariatric surgery counseling and education documented in this encounter Care Teams Alkylation Operator Relationship Specialty Start Date End Date Lia Pearson APRN [address] [place] [address] PCP - General Geriatric Medicine 02/09/22 documented as of this encounter
--- OUTSIDE RECORDS SUMMARY | 2023-11-26 19:29 | XMS_ITS | Encounter Summary ---
[place] [address] Care Team Providers Care Computer Aided Design Drafter Name Role Phone Lia Pearson APRN Primary Care Provider [phone] Encounter Details Date Type Department Care Team (Late st Contact Info) Description 06/02/2023 Telephone Obstetrics [place] [id number] Bismark Guerrero Social History Tobacco Use Types Packs/Day Years [...] encounter Miscellaneous Notes * Telephone Encounter - Bismark Guerrero - 06/02/2023 10:21 AM EST ----- Message from June Edwards MD sent at 06/01/2023 1:27 PM EST ----- Regarding: FW: IUD Contact: Can you reach out to gladys to help her schedule an IUD insertion in the office- thanks! ----- Message ----- From: Bambi Hamilton RN Sent: 06/01/2023 12:48 PM EST To: June Edwards MD Subject: FW: IUD ----- Message ----- From: Gladys Worley Sent: 06/01/2023 12:40 PM EST [place]: [facility] [place]agon Operator Nurse Subject: IUD Yes please documented in this encounter Plan of Treatment Upcoming Encounters Date Type Department Care Team (Late st Contact Info) Description 12/30/2023 2:45 PM EDT TH Visit (TeleHealth) [place]ventional [place] [address] Michael Morgan, [facility] [address] documented as of this encounter Goals Goal Patient Goal Type Associated Problems Recent Progress Patient-Stated? Author Other (Enter personal goal) Lifestyle On track( 023 1:14 PM EDT) No Riddhi Wilson RD Note: -Add peanut butter to oatmeal -Continue to add beans to meals as a source of protein and fiber -If can, buy fresh vegetables and fruit from [employer]-sent message with resources -Choose whole grain options [...] Note: Practice STOP and Urge Surfing. Health Swimming Teacher will send hand-outs. Movement Lifestyle On track( 023 1:14 PM EDT) Riddhi Buchanan RD Note: Continue to walk stairs and walks when can. Will continue using stairs as it's colder. Look into finding weights free online or at [employer] stores. Could use water-filled milk jugs as weights-a full gallon jug would be 8 lbs. Will look into nearby rec center 04/16/22 NATHALIA documented as of this encounter Visit Diagnoses Not on filedocumented in this encounter Care Teams Computer Aided Design Drafter Relationship Specialty Start Date End Date Lia Pearson APRN [address] [place] [address] PCP - General Geriatric Medicine 02/09/22 documented as of this encounter
--- OUTSIDE RECORDS SUMMARY | 2023-11-26 19:29 | XMS_ITS | Encounter Summary ---
Author Organization [facility] [place] [address] Care Team Providers Care Technology Advisor Name Role Phone Lia Pearson TUBE HANDLER Primary Care Provider [phone] Reason for Visit * Auth/Cert (Routine) Specialty Diagnoses / Procedures Referred By Della kern Referred To Contact Diagnoses Morbid Obesity Procedures PRO GASTRIC BYPASS, OBESE<150CM VERNELL-EN-Y PRO LAP GASTRIC BYPASS/VERNELL-EN-Y @LAPAROSCOPIC GASTROPLASTY W/ VERNELL-EN-Y CONSTRUCTION (WRVU 29.4) Gee Decker MD [facility] [place] [address] [facility] Referral ID Status Reason Start Date Expiration Date Visits Re quested Visits Authorized [id number] 1 1 Encounter Details Date Type Department Care Team (Late st Contact Info) Description 06/03/2023 2:37 PM EST - 06/03/2023 6:52 PM EST Surgery [place] [address] Gee Decker MD [facility] [place] [address] @LAPAROSCOPIC GASTROPLASTY W/ VERNELL-EN-Y CONSTRUCTION (WRVU 29.4) Social History Tobacco Use Types Packs/Day Years [...] Sign Reading Time Taken Comments Blood Pressure 158/83 06/03/2023 1:25 PM EST Pulse 105 06/03/2023 1:25 PM EST Temperature 36.6 ??C (97.9 ??F) 06/03/2023 1:25 PM ES T Respiratory Rate - - Oxygen Saturation 97% 06/03/2023 1:25 PM EST Inhaled Oxygen Concentration - - [...] hypertension, benign I10 Long-term insulin use Z79.4 buttermaker 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 Z79.84 [...] of her admission Prior to discharge on 06/05/23 or hospital day 2, patient's pain was [...] RD; Asiya Giraldo APRN General Surgery at [facility] Arrive at: Nuclear Radiologist Area [phone] Please dispose of unused excess opioids before your appointment or bring them with you to the appointment and we will help you dispose of them correctly. 07/08/2023 3:45 PM Michael Morgan, DO Interventional Radiology at [facility] Arrive at: Home [phone] Please do not come in for this visit. Your provider will call you at the number you provided. 07/09/2023 9:20 AM Zay Ferreira APRN Obstetrics and Gynecology at [facility] Arrive at: Nuclear Radiologist Area [phone] 09/24/2023 1:[address]; Asiya Giraldo APRN General Surgery at [facility] Arrive at: Nuclear Radiologist Area [phone] Instructions Given to Patient at Discharge: Patient Instructions Discharge Instructions - Bariatric Surgery NEW PRESCRIPTIONS: district commercial superintendent at [facility] today: Lovenox, omeprazole, Zofran (ondansetron), liquid oxycodone, Miralax, Colace district commercial superintendent at your home pharmacy: ursodiol HOME MEDICATION [...] - 5pm): General Surgery and Bariatric Surgery [phone] Bariatric Surgeons: Everton Arredondo Trus [phone] [employer] Former Supervisor: [phone] Dietitians: [phone] Outside of regular business hours, including weekends and holidays: Ask for General Surgery resident extension professor [phone] Please note, this call will be answered [...] Surgery Team in 3 weeks at the [facility] (Nuclear Radiologist 4, [facility]). Future Appointments Date Time Provider Department Center 06/25/2023 2:00 PM Asiya Giraldo APRN [facility] SURG [facility] 07/08/2023 3:45 PM Michael Morgan DO [facility] IR 3V [facility] 07/09/2023 9:20 AM Zay Ferreira APRN [facility] OBG 5L [facility] 09/24/2023 1:00 PM Asiya Giraldo APRN [facility] SURG [facility] WOUND CARE You have [...] twice daily. Please call or send a [employer] message if you do not have a [...] for assistance to pay for this with [employer] Go to www.[email or web address] and put in the prescription and the [...] Follow up with primary care provider or rx specialist in 1-2 weeks in order to [...] RD; Asiya Giraldo APRN General Surgery at [facility] Arrive at: Nuclear Radiologist Area [phone] Please dispose of unused excess opioids before your appointment or bring them with you to the appointment and we will help you dispose of them correctly. 07/08/2023 3:45 PM Michael Morgan, DO Interventional Radiology at [facility] Arrive at: Home [phone] Please do not come in for this visit. Your provider will call you at the number you provided. 07/09/2023 9:20 AM Zay Ferreira APRN Obstetrics and Gynecology at [facility] Arrive at: Nuclear Radiologist Area 5L [phone] 09/24/2023 1:[address]; Asiya Giraldo APRN General Surgery at [facility] Arrive at: Nuclear Radiologist Area 4L [phone] Signed: Cristofer Fish MD General Surgery PGY-4 [id number] Primary [place] Physician: Lia Pearson APRN [address] / [facility] [id number] documented in this encounter Discharge Instructions * Patient Instructions* Cristofer Fish MD - 06/04/2023 2:58 PM EST Images from the original note were not included. Discharge Instructions - Bariatric Surgery NEW PRESCRIPTIONS: district commercial superintendent at [facility] today: Lovenox, omeprazole, Zofran (ondansetron), liquid oxycodone, Miralax, Colace district commercial superintendent at your home pharmacy: ursodiol HOME MEDICATION [...] - 5pm): General Surgery and Bariatric Surgery [phone] Bariatric Surgeons: Everton Arredondo, Diane [phone] [employer] Former Supervisor: [phone] Dietitians: [phone] Outside of regular business hours, including weekends and holidays: Ask for General Surgery resident extension professor [phone] Please note, this call will be answered [...] Surgery Team in 3 weeks at the [facility] (Nuclear Radiologist 4, [facility]). Future Appointments Date Time Provider Department Center 06/25/2023 2:00 PM Asiya Giraldo APRN [facility] SURG [facility] 07/08/2023 3:45 PM Michael Morgan, [facility] IR 3V [facility] 07/09/2023 9:20 AM Zay Ferreira TUBE HANDLER [facility] OBG 5L [facility] 09/24/2023 1:00 PM Asiya Giraldo TUBE HANDLER [facility] SURG [facility] WOUND CARE You have [...] twice daily. Please call or send a [employer] message if you do not have a [...] for assistance to pay for this with [employer] Go to www.[employer] and put in the prescription and the [...] Follow up with primary care provider or rx specialist in 1-2 weeks in order to [...] Patient voiding to BR w/ SBA. 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 and patient is passing [...] on, Arms Reach Surveillance [continuous indirect monitoring]: Maseileeno * Gustabo Russ RN - 06/04/2023 6:59 [...] when OOB/with ADL's Surveillance [continuous indirect monitoring]: Kadeem Purposeful Rounding, Nurse Knowledge Exchange * Cristofer [...] MD 06/04/2023 Minimally Invasive Surgery, Team Pager [phone] documented in this encounter H&P Notes * [...] hypertension, benign I10 Long-term insulin use Z79.4 buttermaker 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 Z79.84 [...] ANESTHESIA performed by Sabrina Swain MD at [facility] MAIN OR IR ARTERIAL INTERVENTION 10/13/2022 IR Arterial Intervention 10/13/2022 Pradip Avila MD [facility] INTERVENTIONL RAD PRG ECHOGRAPHY TRANSVAGINAL NON-OB Midline 03/03/2022 ULTRASOUND, TRANSVAGINAL (WRVU 0.69) performed by Sabrina Swain MD at [facility] MAIN OR PRO HYSTEROSCOPY, W/ENDO BX N/A 03/03/2022 HYSTEROSCOPY, SURG W/ENDOMETRIAL SAMPLING, POLYPECTOMY (WRVU 4.74) performed by Sabrina Swain MD [facility] MAIN OR PRO INSERT INTRAUTERINE DEVICE N/A 03/03/2022 INSERTION OF IUD, VAGINAL APPROACH (WRVU 1.01) performed by Sabrina Swain MD at [facility] MAIN OR PRO PELVIC EXAMINATION W ANESTH N/A 03/03/2022 PELVIC EXAM UNDER ANESTHESIA (WRVU 1.75) performed by Sabrina Swain MD at [facility] MAIN OR cholecalciferol, Vitamin D3, 1,250 mcg [...] are faxed to her endocrine team at [facility] as well as her PCP at [facility] Please ask Dr. Decker/surgery team to consider [...] management and to provide a review of skilled nursing diabetes care. Diabetes History: Zenia Worley has [...] sulfa at that time. Was living in [place] where she is from. Moved to [place] 3 years ago. Has needed less insulin over the years and espeically since Current outpatient diabetes regimen: Diabetes Provider: Lisa Yan NP [facility] Endocrinology [address], [place] [address] Lisa Yan NP [address] [facility] [address] [place] [id number] Medications: Jardiance 10 mg PO last taken by accident Wednesday although had stopped taking Wednesday prior Mounjaro weekly (new since December-likes it very much) last dose 2 weeks prior at [facility] from pre op Lantus 17 units in AM and 18 units in PM(this has been reduced even more recently (06/01) by endo team at [facility] [place] Novolog/humalog (based upon insurance changes) with correction and some carbohydrate counting recently 15-20 units pre meal TID Metformin 1000 XR BID NOW THIS IS FROM [facility] OFF[facility]CE NOTE 01/29/2023: TSH 1.42 (09/2022) Levothyroxine 200 mcg [facility] DM: dad, brother Recent A1C: 6.7 [...] ACEI/ARB: losartan 25 mg Prior visit with high density press operator: CORNELIO Aguayo Foot care: self Comorbidities: Retinopathy: yes, will be getting laser treatment upcoming, along with the injections. Monitoring is done several times a day ) Uses a ImmunGenestyle Toshia at home which is not here [...] yes-gets signals WAS ADMITTED [facility] times to [facility] and one time her airway failed for hypoglycemia when she still lived in [place] Diabetes education: + in the past and [...] Dr. Decker's team and Lisa Arciniega endocrine AUTOMATIC PATTERN EDGER when and if she should resume Mounjaro [...] through insurance is has proven in this physician underwriter's experience to be significantly challenging. We also [...] are faxed to her endocrine team at [facility] as well as her PCP at [facility] Please ask Dr. Decker to consider if [...] pharmacist in person about this when you medicinal plant picker new version. Jardiance When you are drinking plenty of water and eating and keeping it down fine, you may restart the Jardiance-possibly in hospital Wednesday Erickson Wait until Dr Decker or Lisa say [...] Decker MD - 06/03/2023 4:56 PM EST [facility] Operative Note Patient Name: Zenia Worley : [id number] MR#: [id number] Case Date: 06/03/2023 Surgeon: Surgeon(s) and Role: [...] position. The abdomen was entered using the [employer] trocar system. The 10-mm port was placed [...] distal bowel was chosen to create the xjhs-cc-lovo jejunojejunostomy. The duodenal, afferent limb was approximated [...] suture in two layers with a 30 Amharic Bougie (blunt-tipped) in place. The Bougie was [...] EDT TH Visit (TeleHealth) [place] [address] Michael Morgan, [facility] [place] [address] documented as of this encounter Goals Goal Patient Goal Type Associated Problems Recent Progress Patient-Stated? Author Other (Enter personal goal) Lifestyle On track( 023 1:14 PM EDT) Riddhi Buchanan RD Note: -Add peanut butter to oatmeal -Continue to add beans to meals as a source of protein and fiber -If can, buy fresh vegetables and fruit from [employer]-sent message with resources -Choose whole grain [...] Note: Practice STOP and Urge Surfing. Health Demand Inspector will send hand-outs. Movement Lifestyle On track( 023 1:14 PM EDT) Riddhi Buchanan RD Note: Continue to walk stairs and walks when can. Will continue using stairs as it's colder. Look into finding weights free online or at [employer] stores. Could use water-filled milk jugs as [...] 06/03/2023 7:11 PM EST Lap Gastric Bypass/Vernell-En-Y (03113) 06/03/2023 4:05 PM EST Morbid Obesity POCT [...] POC Glucose 203(H) 65 - 199 mg/dL [facility] Comment: Supplemental ranges: <140 mg/dL before meals <180 mg/dL all other times of the day Blood 06/05/2023 7:55 AM EST 06/05/2023 7:55 AM EST Gee Decker MD POINT OF CARE TEST O RDERABLES Performing Organization Address [facility] Co de Phone Number [facility] [place] [address] * Lavender Tube HOLD (06/05/2023 5:28 AM EST) Lavender Hold Sample in lab. [facility] Blood Venous Draw / Unknown 06/05/2023 5:28 AM EST 06/05/2023 5:56 AM EST Cristofer Fish MD HEMATOLOGY ORDERABLE S Performing Organization Address [facility] Co de Phone Number [facility] [place] [address] * C-peptide (06/05/2023 5:28 AM EST) C-Peptide 2.0 1.1 - 4.4 ng/mL [facility] Comment:Reference intervals derived from fasting individuals Blood 06/05/2023 5:28 AM EST 06/05/2023 5:53 AM EST Narrative Resulting Agency Comment Spec In Lab Gee Decker MD CHEMISTRY ORDERABLES Performing Organization Address City/[facility]/ZIP Co de Phone Number [facility] [place] [address] * (ABNORMAL) Phosphorus (06/05/2023 5:28 AM EST) Phosphorus 2.3(L) 2.5 - 4.5 mg/dL [facility] Blood 06/05/2023 5:28 AM EST 06/05/2023 5:53 AM EST Narrative Resulting Agency Comment Spec In Lab Jeffkwabena Amanda Diane HERNANDEZ CHEMISTRY ORDERABLES Performing Organization Address [facility] Co de Phone Number [facility] [place] [address] * Magnesium (06/05/2023 5:28 AM EST) Pathologist [facility] Magnesium 0.84 0.69 - 1.07 mmol/L [facility] Blood 06/05/2023 5:28 AM EST 06/05/2023 5:53 AM EST Narrative Resulting Agency Comment Spec In Lab Gee Amanda Diane HERNANDEZ CHEMISTRY ORDERABLES Performing Organization Address [facility] Co de Phone Number [facility] [place] [address] * (ABNORMAL) Basic Metabolic Panel (non-fasting) (06/05/2023 5:28 AM EST) Glucose Lvl 214(H) 65 - 199 mg/dL [facility] Comment:Diabetes: >=200 mg/d L plus symptoms BUN 17 8 - 18 mg/dL [facility] Creatinine 0.88 0.70 - 1.20 mg/dL [facility] Sodium 135 135 - 145 mmol/L [facility] Potassium 4.6 3.5 - 5.0 mmol/L [facility] Comment: Please note: ??Patients with WBC >100,000 may have falsely elevated Potassium levels. ??For accurate Potassium quantification in these patients send serum separator tube (gold top) for subsequent determinations. ??Contact the Clinical Chemistry Laboratory if there are any questions. Chloride 104 98 - 107 mmol/L [facility] CO2 20(L) 22 - 31 mmol/L [facility] Anion Gap 11 5 - 15 mmol/L [facility] Calcium 8.7 8.5 - 10.5 mg/dL [facility] Estimated GFR 90 >=60 mL/min/1. 73 m?? [facility] Comment: This patient's estimated GFR [...] Decker MD CHEMISTRY ORDERABLES Performing Organization Address City/[facility]/ZIP Co de Phone Number [facility] [place] [address] * POCT Glucose (06/05/2023 3:51 AM EST) POC Glucose 175 65 - 199 mg/dL [facility] Comment: Supplemental ranges: <140 mg/dL before meals <180 mg/dL all other times of the day Blood 06/05/2023 3:51 AM EST 06/05/2023 3:51 AM EST Gee Decker MD POINT OF CARE TEST O RDERABLES Performing Organization Address City/[facility]/ZIP Co de Phone Number [facility] [place] [address] * POCT Glucose (06/04/2023 11:58 PM EST) POC Glucose 178 65 - 199 mg/dL [facility] Comment: Supplemental ranges: <140 mg/dL before meals <180 mg/dL all other times of the day Blood 06/04/2023 11:5 8 PM EST 06/04/2023 11:58 PM EST Gee Decker MD POINT OF CARE TEST O JET [facility] [place] [address] * POCT Glucose (06/04/2023 7:51 PM EST) POC Glucose 195 65 - 199 mg/dL [facility] Comment: Supplemental ranges: <140 mg/dL before meals <180 mg/dL all other times of the day Blood 06/04/2023 7:51 PM EST 06/04/2023 7:51 PM EST Gee Decker MD POINT OF CARE TEST Jeanna CHAUDHARY Performing Organization Address [facility] Co de Phone Number [facility] [place] [address] * POCT Glucose (06/04/2023 4:42 PM EST) POC Glucose 176 65 - 199 mg/dL [facility] Comment: Supplemental ranges: <140 mg/dL before meals <180 mg/dL all other times of the day Blood 06/04/2023 4:42 PM EST 06/04/2023 4:42 PM EST Gee Decker MD POINT OF CARE TEST O JET Performing Organization Address City/[facility]/ZIP Co de Phone Number [facility] [place] [address] * Beta Hydroxybutyrate (06/04/2023 2:05 PM EST) BOHB 0.20 0.00 - 0.30 mmol/L [facility] Comment: This test has not been cleared by the [place] FDA. Performance characteristics of this test were determined by [facility] in accordance with CLIA requirements. This laboratory is qualified under CLIA to perform high-complexity testing. Blood 06/04/2023 2:05 PM EST 06/04/2023 2:17 PM EST Narrative Resulting Agency Comment Spec In Lab Gee Decker MD CHEMISTRY ORDERABLES [facility] [place] [address] * (ABNORMAL) Basic Metabolic Panel (non-fasting) (06/04/2023 2:05 PM EST) Glucose Lvl 225(H) 65 - 199 mg/dL [facility] Comment:Diabetes: >=200 mg/d L plus symptoms BUN 19(H) 8 - 18 mg/dL [facility] Creatinine 1.05 0.70 - 1.20 mg/dL [facility] Sodium 135 135 - 145 mmol/L [facility] Potassium 4.8 3.5 - 5.0 mmol/L [facility] Comment: Please note: ??Patients with WBC >100,000 may have falsely elevated Potassium levels. ??For accurate Potassium quantification in these patients send serum separator tube (gold top) for subsequent determinations. ??Contact the Clinical Chemistry Laboratory if there are any questions. Chloride 104 98 - 107 mmol/L [facility] CO2 20(L) 22 - 31 mmol/L [facility] Anion Gap 11 5 - 15 mmol/L [facility] Calcium 8.7 8.5 - 10.5 mg/dL [facility] Estimated GFR 73 >=60 mL/min/1. 73 m?? [facility] Comment: This patient's estimated GFR [...] Decker MD CHEMISTRY ORDERABLES Performing Organization Address [facility] Co de Phone Number [facility] [place] [address] * Phosphorus (06/04/2023 12:05 PM EST) Phosphorus 3.4 2.5 - 4.5 mg/dL [facility] Blood 06/04/2023 12:0 5 PM EST 06/04/2023 12:23 PM EST Narrative Resulting Agency Comment Spec In Lab Gee Decker MD CHEMISTRY ORDERABLES Performing Organization Address [facility] Co de Phone Number [facility] [place] [address] * Magnesium (06/04/2023 12:05 PM EST) Magnesium 0.81 0.69 - 1.07 mmol/L [facility] Blood 06/04/2023 12:0 5 PM EST 06/04/2023 12:23 PM EST Narrative Resulting Agency Comment Spec In Lab Gee Decker MD CHEMISTRY ORDERABLES Performing Organization Address [facility] Co de Phone Number [facility] [place] [address] * (ABNORMAL) Basic Metabolic Panel (non-fasting) (06/04/2023 12:05 PM EST) Glucose Lvl 218(H) 65 - 199 mg/dL [facility] Comment:Diabetes: >=200 mg/d L plus symptoms BUN 19(H) 8 - 18 mg/dL [facility] Creatinine 0.97 0.70 - 1.20 mg/dL [facility] Sodium 134(L) 135 - 145 mmol/L [facility] Potassium Not Perf 3.5 - 5.0 [facility] Comment: Unable to quantitate due [...] questions. Chloride 103 98 - 107 mmol/L [facility] CO2 20(L) 22 - 31 mmol/L [facility] Anion Gap 11 5 - 15 mmol/L [facility] Calcium 8.6 8.5 - 10.5 mg/dL [facility] Estimated GFR 80 >=60 mL/min/1. 73 m?? [facility] Comment: This patient's estimated GFR [...] In Lab Gee Decker MD CHEMISTRY ORDERABLES [facility] [place] [address] * POCT Glucose (06/04/2023 11:44 AM EST) POC Glucose 184 65 - 199 mg/dL [facility] Comment: Supplemental ranges: <140 mg/dL before meals <180 mg/dL all other times of the day Blood 06/04/2023 11:4 4 AM EST 06/04/2023 11:44 AM EST Gee Decker MD POINT OF CARE TEST O RDERABLES [facility] [place] [address] * POCT Glucose (06/04/2023 10:24 AM EST) POC Glucose 167 65 - 199 mg/dL [facility] Comment: Supplemental ranges: <140 mg/dL before meals <180 mg/dL all other times of the day Blood 06/04/2023 10:2 4 AM EST 06/04/2023 10:24 AM EST Gee Decker MD POINT OF CARE TEST O JET [facility] [place] [address] * (ABNORMAL) _Urinalysis with microscopic (06/04/2023 9:15 AM EST) Glucose UA >=1000(Crit ical) Negative mg/dL [facility] Comment: Urinalysis result NOT critical without a combination of Glucose greater than or equal to 500 mg/dL AND Ketones greater than or equal to 80 mg/dL Protein UA >=300(A) Negative mg/dL [facility] Bilirubin UA Small(A) Negative mg/dL [facility] Comment: Clinical correlation required for positive Urine Bilirubin results as false positive may occur with some drugs and drug related products. If a false positive is suspected a serum total bilirubin should be considered if clinically indicated. Urobilinogen UA Normal Normal mg/dL [facility] pH UA 5.5 5.0 - 8.0 [facility] Blood UA Moderate(A) Negative mg/dL [facility] Ketones UA Trace(A) Negative mg/dL [facility] Nitrite UA Negative Negative [facility] Leukocytes UA Negative Negative mcL [facility] Appearance UA Cloudy(A) Clear [facility] Spec Katy UA >=1.030(A) 1.005 - 1.030 [facility] Color UA Dark Yellow Yellow [facility] RBC UA 13(H) 0 - 4 /HPF [facility] WBC UA 27(H) 0 - 5 /HPF [facility] Bacteria UA Moderate(A) None /HPF [facility] Squam Epith UA 5(H) <=4 /HPF [facility] Hyaline Cast UA 1 0 - 2 /LPF [facility] Gran Cast UA 1(H) <=0 /LPF [facility] WBC Cast UA <1(H) <=0 /LPF [facility] LABORATORY Urine Urine / Unknown 06/04/2023 9 :15 AM EST 06/04/2023 9:31 AM EST Narrative Resulting Agency Comment Spec In Lab Cristofer Fish MD URINE ORDERABLES [facility] [place] [address] * POCT Glucose (06/04/2023 7:15 AM EST) POC Glucose 171 65 - 199 mg/dL [facility] Comment: Supplemental ranges: <140 mg/dL before meals <180 mg/dL all other times of the day Blood 06/04/2023 7:15 AM EST 06/04/2023 7:15 AM EST Gee Decker MD POINT OF CARE TEST O RDERABLES Performing Organization Address City/[facility]/ZIP Co de Phone Number [facility] [place] [address] * (ABNORMAL) Beta Hydroxybutyrate (06/04/2023 5:20 AM EST) BOHB 0.52(H) 0.00 - 0.30 mmol/L [facility] Comment: This test has not been cleared by the [place] FDA. Performance characteristics of this test were determined by [facility] in accordance with CLIA requirements. This laboratory is qualified under CLIA to perform high-complexity testing. Blood Venous Draw / Unknown 06/04/2023 5:20 AM EST 06/04/2023 5:29 AM EST Narrative Resulting Agency Comment Spec In Lab Cristofer Fish MD CHEMISTRY ORDERABLES Performing Organization Address [facility] Co de Phone Number [facility] [place] [address] * (ABNORMAL) Differential, Automated (06/04/2023 5:20 AM EST) Pathologist [facility] Neutrophils % 92.0 % [facility] Neutr Abs (ANC) 11.09(H) 1.70 - 6.10 x10(3)/mc L [facility] Lymphocytes % 5.1 % [facility] Lymphocytes Abs 0.6(L) 0.9 - 3.2 x10(3)/mc L [facility] Monocytes % 2.6 % [facility] Monocyte Abs 0.3 0.3 - 0.9 x10(3)/mc L [facility] Eosinophils % 0.0 % [facility] Eosinophils Abs 0.0 0.0 - 0.4 x10(3)/mc L [facility] Basophils % 0.0 % [facility] Basophils Abs 0.0 0.0 - 0.1 x10(3)/ L [facility] Immature Gran % 0.30 % [facility] Comment: Immature granulocytes(IG's)percentage and absolute count will include metamyelocytes, myelocytes, and promyelocytes. Blood smears from CBCs yielding IG's will be scanned manually for concordance. If this scan disagrees with the automated IG or if promyelocytes are noted, a manual differential will be performed. Estefany Gran Abs 0.04 0.00 - 0.04 x10(3)/mc L [facility] Blood 06/04/2023 5:20 AM EST 06/04/2023 5:28 AM EST Narrative Resulting Agency Comment Spec In Lab Cristofer Fish MD HEMATOLOGY ORDERABLE S Performing Organization Address City/State/[facility] Co de Phone Number [facility] [place] [address] * (ABNORMAL) Hemogram (06/04/2023 5:20 AM EST) WBC 12.0(H) 4.0 - 9.5 x10(3)/[facility] LABORATORY RBC 4.68 4.00 - 5.21 x10(6)/[facility] LABORATORY Hemoglobin 13.5 11.7 - 15.5 g/dL [facility] Hematocrit 42.0 35.7 - 45.8 % [facility] MCV 89.7 82.6 - 94.4 fL [facility] MCH 28.8 27.1 - 32.0 pg [facility] MCHC 32.1 31.7 - 35.0 g/dL [facility] Platelets 402(H) 145 - 357 x10(3)/[facility] LABORATORY RDWSD 43.6 37.0 - 46.0 fL [facility] RDWCV 13.2 11.5 - 14.1 % [facility] MPV 10.4 7.6 - 12.9 fL [facility] nRBC % Auto 0.0 % [facility] nRBC Abs Auto 0.000 0.000 - 0.000 x10(3)/mcL [facility] Blood 06/04/2023 5:20 AM EST 06/04/2023 5:28 AM EST Narrative Resulting Agency Comment Spec In Lab Cristofer Fish MD HEMATOLOGY ORDERABLE S Performing Organization Address City/[facility]/ZIP Co de Phone Number [facility] [place] [address] * Phosphorus (06/04/2023 5:20 AM EST) Phosphorus 3.5 2.5 - 4.5 mg/dL [facility] Blood 06/04/2023 5:20 AM EST 06/04/2023 5:28 AM EST Narrative Resulting Agency Comment Spec In Lab Gee Decker MD CHEMISTRY ORDERABLES Performing Organization Address [facility] Co de Phone Number [facility] [place] [address] * Magnesium (06/04/2023 5:20 AM EST) Magnesium 0.78 0.69 - 1.07 mmol/L [facility] Blood 06/04/2023 5:20 AM EST 06/04/2023 5:28 AM EST Narrative Resulting Agency Comment Spec In Lab Gee Decker MD CHEMISTRY ORDERABLES Performing Organization Address [facility] Co de Phone Number [facility] [place] [address] * (ABNORMAL) Basic Metabolic Panel (non-fasting) (06/04/2023 5:20 AM EST) Glucose Lvl 164 65 - 199 mg/dL [facility] Comment:Diabetes: >=200 mg/d L plus symptoms BUN 17 8 - 18 mg/dL [facility] Creatinine 0.98 0.70 - 1.20 mg/dL [facility] Sodium 135 135 - 145 mmol/L [facility] Potassium 5.4(H) 3.5 - 5.0 mmol/L [facility] Comment: Please note: ??Patients with WBC >100,000 may have falsely elevated Potassium levels. ??For accurate Potassium quantification in these patients send serum separator tube (gold top) for subsequent determinations. ??Contact the Clinical Chemistry Laboratory if there are any questions. Chloride 105 98 - 107 mmol/L [facility] CO2 18(L) 22 - 31 mmol/L [facility] Anion Gap 12 5 - 15 mmol/L [facility] Calcium 8.9 8.5 - 10.5 mg/dL [facility] Estimated GFR 79 >=60 mL/min/1. 73 m?? [facility] Comment: This patient's estimated GFR [...] In Lab Gee Decker MD CHEMISTRY ORDERABLES [facility] [place] [address] * (ABNORMAL) Basic Metabolic Panel (non-fasting) (06/03/2023 10:55 PM EST) Glucose Lvl 103 65 - 199 mg/dL [facility] Comment:Diabetes: >=200 mg/d L plus symptoms BUN 12 8 - 18 mg/dL [facility] Creatinine 0.93 0.70 - 1.20 mg/dL [facility] Sodium 138 135 - 145 mmol/L [facility] Potassium 4.5 3.5 - 5.0 mmol/L [facility] Comment: Please note: ??Patients with WBC >100,000 may have falsely elevated Potassium levels. ??For accurate Potassium quantification in these patients send serum separator tube (gold top) for subsequent determinations. ??Contact the Clinical Chemistry Laboratory if there are any questions. Chloride 106 98 - 107 mmol/L [facility] CO2 21(L) 22 - 31 mmol/L [facility] Anion Gap 11 5 - 15 mmol/L [facility] Calcium 9.0 8.5 - 10.5 mg/dL [facility] Estimated GFR 84 >=60 mL/min/1. 73 m?? [facility] Comment: This patient's estimated GFR [...] In Lab Gee Decker MD CHEMISTRY ORDERABLES [facility] [place] [address] * POCT Glucose (06/03/2023 8:27 PM EST) POC Glucose 91 65 - 199 mg/dL [facility] Comment: Supplemental ranges: <140 mg/dL before meals <180 mg/dL all other times of the day Blood 06/03/2023 8:27 PM EST 06/03/2023 8:27 PM EST Gee Decker MD POINT OF CARE TEST O JET Performing Organization Address [facility] Co de Phone Number [facility] [place] [address] * POCT Glucose (06/03/2023 7:41 PM EST) POC Glucose 118 65 - 199 mg/dL [facility] Comment: Supplemental ranges: <140 mg/dL before meals <180 mg/dL all other times of the day Blood 06/03/2023 7:41 PM EST 06/03/2023 7:41 PM EST Gee Decker MD POINT OF CARE TEST O JET Performing Organization Address [facility] Phone Number [facility] [place] [address] * (ABNORMAL) POCT Glucose (06/03/2023 7:11 PM EST) POC Glucose 50(Critica l) 65 - 199 mg/dL [facility] Comment: Supplemental ranges: <140 mg/dL before meals <180 mg/dL all other times of the day Blood 06/03/2023 7:11 PM EST 06/03/2023 7:11 PM EST Gee Decker MD POINT OF CARE TEST O JET Performing Organization Address [facility] Co de Phone Number [facility] [place] [address] * POCT Glucose (06/03/2023 2:32 PM EST) POC Glucose 88 65 - 199 mg/dL [facility] Comment: Supplemental ranges: <140 mg/dL before meals <180 mg/dL all other times of the day Blood 06/03/2023 2:32 PM EST 06/03/2023 2:32 PM EST Gee Decker MD POINT OF CARE TEST O JET [facility] [place] [address] * (ABNORMAL) BLOOD GAS 2 ARTERIAL (06/03/2023 2:10 PM EST) pH Art 7.34(L) 7.35 - 7.45 [facility] pCO2 Art 47(H) 35 - 45 mmHg [facility] pO2 Art 28(Critica l) 85 - 104 mmHg [facility] Comment:Noted by reed or wind instrument tuner. HCO3 Art 24.7 20.0 - 26.0 mmol/L [facility] BE Art -1.1 -3.0 - 3.0 mmol/L [facility] Hgb Blood Gas 15.6(H) 11.7 - 15.5 g/dL [facility] O2HB Art 53.1(L) 94.0 - 97.0 % [facility] COHB Art 0.9 % [facility] Comment: Nonsmokers: 0.5-1.5% COHB Smokers: Variable, but usually less than 10% Toxic: 20-30% COHB Lethal: Greater than 60% COHB METHB Art 0.3 <=1.5 % [facility] Na Whole Blood 142 135 - 145 mmol/L [facility] K Whole Blood 4.2 3.5 - 5.0 mmol/L [facility] Comment: Please note: Patients with WBC >100,000 may have falsely elevated Potassium levels. Contact the Clinical Chemistry Laboratory if there are any questions. ICa Whole Blood 1.23 1.15 - 1.33 mmol/L [facility] Comment: Note: ??Total bilirubin higher than 20 mg/dL may lead to falsely low ionized calcium. CL Whole Blood 105 98 - 107 mmol/L [facility] Gluc Whole Bld 61(L) 65 - 199 mg/dL [facility] Comment:Diabetes: >=200 mg/d L plus symptoms. Lactate WB 1.4 0.5 - 2.2 mmol/L [facility] Blood 06/03/2023 2:10 PM EST 06/03/2023 2:10 PM EST Gee Decker MD CHEMISTRY ORDERABLES Performing Organization Address [facility] Co de Phone Number [facility] [place] [address] * (ABNORMAL) POCT Glucose (06/03/2023 2:05 PM EST) POC Glucose 60(L) 65 - 199 mg/dL [facility] Comment: Supplemental ranges: <140 mg/dL before meals <180 mg/dL all other times of the day Blood 06/03/2023 2:05 PM EST 06/03/2023 2:05 PM EST Gee Decker MD POINT OF CARE TEST O RDERABLES Performing Organization Address [facility] Co de Phone Number [facility] [place] [address] * Beta Hydroxybutyrate (06/03/2023 2:00 PM EST) BOHB 0.11 0.00 - 0.30 mmol/L [facility] Comment: This test has not been cleared by the [place] FDA. Performance characteristics of this test were determined by [facility] in accordance with CLIA requirements. This laboratory is qualified under CLIA to perform high-complexity testing. Blood 06/03/2023 2:00 PM EST 06/03/2023 2:28 PM EST Narrative Resulting Agency Comment Spec In Lab Renaldo Ramirez MD CHEMISTRY ORDERABLE S Performing Organization Address [facility] Co de Phone Number [facility] [place] [address] * (ABNORMAL) Basic Metabolic Panel (non-fasting) (06/03/2023 2:00 PM EST) Glucose Lvl 59(L) 65 - 199 mg/dL [facility] Comment:Diabetes: >=200 mg/d L plus symptoms BUN 12 8 - 18 mg/dL [facility] Creatinine 0.86 0.70 - 1.20 mg/dL [facility] Sodium 140 135 - 145 mmol/L [facility] Potassium 4.3 3.5 - 5.0 mmol/L [facility] Comment: Please note: ??Patients with WBC >100,000 may have falsely elevated Potassium levels. ??For accurate Potassium quantification in these patients send serum separator tube (gold top) for subsequent determinations. ??Contact the Clinical Chemistry Laboratory if there are any questions. Chloride 105 98 - 107 mmol/L [facility] CO2 24 22 - 31 mmol/L [facility] Anion Gap 11 5 - 15 mmol/L [facility] Calcium 9.6 8.5 - 10.5 mg/dL [facility] Estimated GFR 93 >=60 mL/min/1. 73 m?? [facility] Comment: This patient's estimated GFR [...] Lab Renaldo Ramirez MD CHEMISTRY ORDERABLE S [facility] [place] [address] * (ABNORMAL) POCT Glucose (06/03/2023 1:42 PM EST) POC Glucose 53(Critica l) 65 - 199 mg/dL [facility] Comment: Supplemental ranges: <140 mg/dL before meals <180 mg/dL all other times of the day Blood 06/03/2023 1:42 PM EST 06/03/2023 1:42 PM EST Gee Decker MD POINT OF CARE TEST O JET Performing Organization Address [facility] Phone Number [facility] [place] [address] * (ABNORMAL) POCT Glucose (06/03/2023 1:14 PM EST) POC Glucose 60(L) 65 - 199 mg/dL [facility] Comment: Supplemental ranges: <140 mg/dL before meals <180 mg/dL all other times of the day Blood 06/03/2023 1:14 PM EST 06/03/2023 1:14 PM EST Gee Decker MD POINT OF CARE TEST Jeanna CHAUDHARY Performing Organization Address [facility] Phone Number [facility] [place] [address] documented in this encounter Visit Diagnoses Not on filedocumented in this encounter Admitting Diagnoses Diagnosis Morbid [...] Given 06/04/2023 6:00 PM EST 650 mg ARIPiprazole (Abilify) tablet 20 mg 20 mg, Oral, DAILY, First dose on Wed06/04/23 at 0900, Until Discontinued, Cut in half and give both halves, Routine Given 06/05/2023 9:07 AM EST 20 mg Given 06/04/2023 8:40 AM EST 20 mg BUpivacaine (pf) (Marcaine) (2.5 mg/mL) 0.25% injection PRN, Starting on Christa 06/03/23 at 1656, Until 06/05/23 at 1350, Intra-Operative (Intra-Procedure), Routine Given 06/03/2023 4:56 PM EST 32 mLs 19- Surgical Site chlorproMAZINE (Thorazine) tablet 300 mg 300 mg, Oral, NIGHTLY, First dose on Wed06/04/23 at 2100, Until Discontinued, Routine Given 06/04/2023 8:10 PM EST 300 mg chlorproMAZINE (Thorazine) tablet 50 mg 50 mg, Oral, DAILY PRN, Starting on Wed06/04/23 at 1322, Until 06/05/23 at 1350, Anxiety, Routine dextrose 10% infusion 250 mL, at 1,000 [...] AM EST 40 mg Ab dominal Tissue gabapentin (Neurontin) capsule 300 mg 300 mg, [...] for HR>100, use after labetalol Given 06/05/2023 7:34 AM EST 20 mg hydrOXYzine (Atarax) (2 mg/mL) oral liquid [...] Given 06/05/2023 12:07 AM EST 1 Units labetaloL (Normodyne) (5 mg/mL) injection solution 20 mg 20 mg, Intravenous, EVERY 2 HOURS PRN, Starting on Wed06/04/23 at 1804, Until 06/05/23 at 1350, High Blood Pressure, For SBP>180, hold for HR<60, use before hydralazine, Routine levothyroxine (Synthroid) tablet 200 mcg 200 mcg, [...] Given 06/04/2023 8:37 AM EST 50 mg ondansetron (pf) (Zofran) (2 mg/mL) injection 4 mg 4 mg, Intravenous, EVERY 8 HOURS SCHEDULED, First dose on Christa 06/03/23 at 2200, Until Discontinued, For nausea please use ondansetron as the first choice; prochlorperazine as a second choice. Call provider if not effective. Given 06/05/2023 3: 53 AM EST 4 mg Given 06/04/2023 7:14 PM EST 4 mg Given 06/04/2023 11:11 AM EST 4 mg oxyCODONE (Roxicodone) (1 mg/mL) [...] 10 mg, Oral, NIGHTLY, First dose on Christa 06/03/23 at 2215, Until Discontinued, Open capsule, Routine [...] Given 06/03/2023 11:35 PM EST 10 mg sodium chloride 0.9 [...] Paddy Arthur RN)1111 (Given - Provider: Gogo Riley, TOM)1800 (Given - Provider: Gustabo Russ RN) 0007 (Given - Provider: Eri Claros, TOM)0519 (Given - Provider: Eri Claros, TOM) acetaminophen (Tylenol) tablet 975 mg (COMPLETED) 975 [...] of Procedure), Routine 1505 (Given - Provider: Jermoy Samson RN) chlorproMAZINE (Thorazine) tablet 300 mg 300 mg, Oral, NIGHTLY, First dose on Wed06/04/23 at 2100, Until Discontinued, Routine 2009 (Given - Provider: Eri Claros, TOM) dextrose [...] 40 mg, Subcutaneous, ONCE, 1 dose, On Christa 06/03/23 at 1345, To be given in preop [...] 0837 (Given - Provider: Gogo Riley RN) 0906 (Given - Provider: Gustabo Russ RN) gabapentin [...] hours., Routine 0730 (Given - Provider: Paddy Arthur RN) insulin lispro (HumaLOG;Admelog) (100 unit/mL) subcutaneous [...] Gogo Riley RN)1718 (Given - Provider: Gustabo Russ, TOM)2010 (Given - Provider: Eri Claros, TOM) 0007 (Given - Provider: Eri Claros, TOM)0353 (Given - Provider: Eri Claros, TOM)0800 (Given - Provider: Gustabo Russ, TOM) ketorolac (Toradol) (15 mg/mL) injection 15 mg [...] EVERY 8 HOURS SCHEDULED, First dose on Christa 06/03/23 at 2200, Until Discontinued, For nausea please use ondansetron as the first choice; prochlorperazine as a second choice. Call provider if not effective. 0400 (Given - Provider: Paddy Arthur RN)1111 (Given - Provider: Gogo Riley RN)1914 (Given - Provider: Gustabo Russ, RN) 0353 (Given - Provider: Eri Claros, [...] Riley RN) 09 (Given - Provider: Gustabo Russ, TOM) prazosin (Minipress) capsule 10 mg 10 mg, Oral, NIGHTLY, First dose on Christa 06/03/23 at 2215, Until Discontinued, Open capsule, Routine 233 (Given - Provider: Paddy Arthur RN) 2009 (Given - Provider: Eri Claros, TOM) sennosides (Senokot) (1.76 mg/mL) oral liquid 8.8 mg (COMPLETED) 8.8 mg, Oral, ONCE, 1 dose, On 06/05/23 at 0845, Routine 09 (Given - Provider: Gustabo Russ RN) sodium chloride 0.9 % (flush) (BD PosiFlush Normal Saline 0.9) flush 5 mL 5 mL, Intravenous, 2 TIMES DAILY, First dose on Christa 06/03/23 at 2200, Until Discontinued, Recovery (Recovery-Hospital Unit), Routine 220 (Given - Provider: Paddy Arthur RN) 0838 (Given - Provider: Gogo Riley, TOM)2012 (Given - Provider: Eri Claros, TOM) 0907 (Given - Provider: Gustabo Russ RN) traZODone (Desyrel) tablet 300 mg 300 [...] infusion 125 mL/hr, Intravenous, CONTINUOUS, Starting on 06/04/23 at 1115, Until 06/05/23 at 1350 1111 (New Bag - Provider: Gogo Riley RN)2042 (New Bag - Provider: Lidya Mahajan RN) 0457 (New Bag - Provider: Eri Claros, TOM) lactated ringers infusion (CANCELED) 1,000 mL, at 100 mL/hr, Intravenous, CONTINUOUS, Starting on Christa 06/03/23 at 1345, Until 06/04/23 at 0139, Day of Surgery (Day of [...] Routine 2044 (Given - Provider: Paddy Arthur RN)2059 (Given - Provider: Paddy Arthur RN)2121 (Given - Provider: Paddy Arthur, RN)2199 (Given - Provider: Paddy Arthur RN) glucagon (Glucagen) (1 mg/mL) injection solution [...] to nausea., Routine 0144 (Given - Provider: aPddy Arthur RN)0458 (Given - Provider: Paddy Arthur [...] fentaNYL for breakthrough pain., PACU Recovery, Routine 234 (Given - Provider: Paddy Arthur RN)235 (Given - Provider: Paddy Arthur RN) hydrOXYzine [...] 06/03/23 at 2033, Until 06/04/23 at 0139, Nausea, Maximum total dose of [...] Riley RN) 0727 (Given - Provider: Gustabo Russ, TOM) prochlorperazine (Compazine) (5 mg/mL) injection 10 mg [...] % gel (COMPLETED) 1 dose, Starting on Wed06/03/23 at 1322, Until Wed06/03/23 at 1358, TABITHA GUERIN: cabinet override 1 [...] MEALS & AT BEDTIME, First occurrence on Wed06/03/23 at 2200, Until Specified, Consider choosing FOUR [...] at 2033, Until Wed06/04/23 at 0139, Pain, Moderate to severe pain (6-10 out [...] Christa 06/03/23 at 2032, Until Wed06/04/23 at 138, Pain, For Moderate to Severe Pain (6-10 [...] Christa 06/03/23 at 2033, Until Wed06/04/23 at 013, High Blood Pressure, Administer for systolic blood [...] Routine documented in this encounter Care Teams Technology Advisor Relationship Specialty Start Date End Date Lia Pearson APRN [address] [place] [address] PCP - General Geriatric Medicine 02/09/22 documented as of this encounter
--- OUTSIDE RECORDS SUMMARY | 2023-11-26 19:29 | XMS_ITS | Encounter Summary ---
Author Organization [facility] [place] [address] Care Team Providers Care Armor Officer Name Role Phone Lia Pearson APRN Primary Care Provider [phone] Encounter Details Date Type Department Care Team (Late st Contact Info) Description 03/26/2023 Telephone [place] [id number] Deneen Campbell RN Social History Tobacco Use Types Packs/Day [...] Telephone Encounter - Deneen Campbell RN - 03/26/2023 3:00 PM EST Patient is scheduled for laparoscopic jill-en-y gastric bypass on 04/07/[address] Contreras would like her to hold the following medications for 1 week before surgery so the last day she should take any of them will be on 03/30/23: Yony Almendarez Jardiance I called the patient and reviewed the above instructions. Patient verbalizes her understanding and agrees with the plan. documented in this encounter Plan of Treatment Upcoming Encounters Date Type Department Care Team (Late st Contact Info) Description 12/30/2023 2:45 PM EDT TH Visit (TeleHealth) Interventional Radiology at [facility] [place] [address] Michael Morgan, DO [facility] [place] [address] documented as of this encounter Goals Goal Patient Goal Type Associated Problems Recent Progress Patient-Stated? Author Other (Enter personal goal) Lifestyle On track( 023 1:14 PM EDT) Riddhi Buchanan RD Note: -Add peanut butter to oatmeal -Continue to add beans to meals as a source of protein and fiber -If can, buy fresh vegetables and fruit from [employer]-sent message with resources -Choose whole grain [...] Note: Practice STOP and Urge Surfing. Health Transcript Evaluator will send hand-outs. Movement Lifestyle On track( 023 1:14 PM EDT) Riddhi Buchanan RD Note: Continue to walk stairs and walks when can. Will continue using stairs as it's colder. Look into finding weights free online or at [employer] stores. Could use water-filled milk jugs as weights-a full gallon jug would be 8 lbs. Will look into nearby rec center 04/16/22 NATHALIA documented as of this encounter Visit Diagnoses Not on filedocumented in this encounter Care Teams Armor Officer Relationship Specialty Start Date End Date Lia Pearson APRN [address] [place] [address] PCP - General Geriatric Medicine 02/09/22 documented as of this encounter
--- OUTSIDE RECORDS SUMMARY | 2023-11-26 19:29 | XMS_ITS | Encounter Summary ---
Author Organization [facility] [place] [address] Care Team Providers Care Fabric Worker Foreman Name Role Phone Lia Pearson APRN Primary Care Provider [phone] Encounter Details Date Type Department Care Team (Latest Contact Info) Description 06/18/2023 Travel Social History Tobacco Use Types Packs/Day [...] EDT TH Visit (TeleHealth) [place] [address] Michael Morgan, [facility] [place] [address] documented as of this encounter Goals Goal [...] Note: Practice STOP and Urge Surfing. Health Surgery Scheduling Coordinator will send hand-outs. Movement Lifestyle On track( 023 1:14 PM EDT) Riddhi Buchanan RD Note: Continue to walk stairs and walks when can. Will continue using stairs as it's colder. Look into finding weights free online or at [employer] stores. Could use water-filled milk jugs as weights-a full gallon jug would be 8 lbs. Will look into nearby rec center 04/16/22 NATHALIA documented as of this encounter Visit Diagnoses Not on filedocumented in this encounter Care Teams Fabric Worker Foreman Relationship Specialty Start Date End Date Lia Pearson APRN [address] [place] [address] PCP - General Geriatric Medicine 02/09/22 documented as of this encounter
--- OUTSIDE RECORDS SUMMARY | 2023-11-26 19:29 | XMS_ITS | Encounter Summary ---
Author Organization [facility] Address [facility] [place] [address] Care Team Providers Care Motor Hotel Manager Name Role Phone Lia Pearson APRN Primary Care Provider [phone] Encounter Details Date Type Department Care Team (Late st Contact Info) Description 06/08/2023 Telephone [place] [address] Kati Shea PA [facility] [place] [address] Social History Tobacco Use Types Packs/Day Years [...] encounter Miscellaneous Notes * Telephone Encounter - Kati Shea PA - 06/08/2023 1:58 PM EST I spoke with Zenia on the phone in regard to her discharge prescriptions. It appears that some were sent to the pharmacy at [facility] and some were sent to [facility] in [place], [place]. Zenia told me she was able to oyster picker Zofran, omeprazole, and stool softeners at [facility] but was not able to oyster picker oxycodone (confirmed with [place] PDMP check). She called [facility] and they informed her that her prescriptions for Lovenox, ursodiol, and oxycodone would be ready tomorrow, 06/09/2023. I also spoke with her about her abnormal uterine bleeding and norethindrone. She was initially instructed to stop this medication for 30 days after surgery. This morning she called with concerns for vaginal bleeding starting Wednesday, likely due to norethindrone cessation while hospitalized and post-op. I had a discussion with her about the risks and benefits of restarting this mediation in the immediate post-op period, taking into consideration her history of AUB and blood loss anemia necessitating transfusion of 5 units of blood in September of 2022. She may resume Aygestin once she starts her Lovenox shots tomorrow. Alternately, she may speak with her gynecology provider about a progesterone only option. Plan discussed with Dr. Contreras. DIANE Brown Bariatric Surgery 2:31 PM 06/08/23 documented in this encounter Plan of Treatment Upcoming Encounters Date Type Department Care Team (Late st Contact Info) Description 12/30/2023 2:45 PM EDT TH Visit (TeleHealth) [place] [address] Michael Morgan, [facility] [place] [address] documented as of this encounter Goals Goal [...] Note: Practice STOP and Urge Surfing. Health Neurosurgical Nurse Practitioner will send hand-outs. Movement Lifestyle On track( 023 1:14 PM EDT) Riddhi Buchanan RD Note: Continue to walk stairs and walks when can. Will continue using stairs as it's colder. Look into finding weights free online or at [employer] stores. Could use water-filled milk jugs as weights-a full gallon jug would be 8 lbs. Will look into nearby rec center 04/16/22 NATHALIA documented as of this encounter Visit Diagnoses Not on filedocumented in this encounter Care Teams Motor Hotel Manager Relationship Specialty Start Date End Date Lia Pearson APRN [address] [place] [address] PCP - General Geriatric Medicine 02/09/22 documented as of this encounter
--- OUTSIDE RECORDS SUMMARY | 2023-11-26 19:29 | XMS_ITS | Encounter Summary ---
[place] [address] Care Team Providers Care Child [facility] Care Center Worker Name Role Phone Lia Pearson APRN Primary Care Provider [phone] Encounter Details Date Type Department Care Team (Late st Contact Info) Description 06/18/2023 Telephone [place] [phone] Lidya Elise, RN Social History Tobacco Use [...] Miscellaneous Notes * Telephone Encounter - Lidya Elise, RN - 06/18/2023 3:47 PM EST Zenia returned my call from earlier today. She hadn't listened to my message but saw a missed callfrom . She denies nausea/vomiting, fever or chills. She is passing gas without difficulty. I recommended she get a bottle of milk of magnesia and to follow the box instructions for constipation. She has already taken a second dose of Miralax. Hopefully this will help her move her bowels today. She should continue taking the Miralax 1-2 daily for maintenance. I've asked her to call the switchboard and ask to speak with a resident solution design and analysis manager if she continues to have difficulty moving her bowels over the weekend. She is pleased with this plan. . documented in this encounter Plan of Treatment Upcoming Encounters Date Type Department Care Team (Late st Contact Info) Description 12/30/2023 2:45 PM EDT TH Visit (TeleHealth) [place] [address] Michael Morgan, [facility] [place] [address] documented as of this encounter Goals Goal Patient Goal Type Associated Problems Recent Progress Patient-Stated? Author Other (Enter personal goal) Lifestyle On track( 023 1:14 PM EDT) Riddhi Buchanan RD Note: -Add peanut butter to oatmeal -Continue to add beans to meals as a source of protein and fiber -If can, buy fresh vegetables and fruit from [employer]-sent message with resources -Choose whole grain options [...] Note: Practice STOP and Urge Surfing. Health Energy Control Officer will send hand-outs. Movement Lifestyle On track( 023 1:14 PM EDT) Riddhi Buchanan RD Note: Continue to walk stairs and walks when can. Will continue using stairs as it's colder. Look into finding weights free online or at [employer] stores. Could use water-filled milk jugs as weights-a full gallon jug would be 8 lbs. Will look into nearby rec center 04/16/22 NATHALIA documented as of this encounter Visit Diagnoses Not on filedocumented in this encounter Care Teams Child Day Care Center Worker Relationship Specialty Start Date End Date Lia Pearson APRN [address] [place] [address] PCP - General Geriatric Medicine 02/09/22 documented as of this encounter
--- OUTSIDE RECORDS SUMMARY | 2023-11-26 19:29 | XMS_ITS | Encounter Summary ---
[place] [address] Care Team Providers Care Upholstery Restorer Name Role Phone Lia Pearson APRN Primary Care Provider [phone] Encounter Details Date Type Department Care Team (Late st Contact Info) Description 03/30/2023 Telephone [place] [phone] Alyx Velez, RN Social History Tobacco Use Types Packs/Day [...] of this encounter Progress Notes * Alyx Velez, RN - 03/30/2023 2:10 PM EST Phone call to patient as note in comments says to hold Jardiance X 1 week. Took dose today but willnot take any more before surgery. Patient acknowledged an understanding of these instructions. documented in this encounter Plan of Treatment Upcoming Encounters Date Type Department Care Team (Late st Contact Info) Description 12/30/2023 2:45 PM EDT TH Visit (TeleHealth) [place] [address] Michael Morgan, [facility] [place] [place] [address] documented as of this encounter Goals Goal Patient Goal Type Associated Problems Recent Progress Patient-Stated? Author Other (Enter personal goal) Lifestyle On track( 1:14 PM EDT) Riddhi Buchanan RD Note: -Add peanut butter to oatmeal -Continue to add beans to meals as a source of protein and fiber -If can, buy fresh vegetables and fruit from [employer]-sent message with resources -Choose whole grain options [...] Note: Practice STOP and Urge Surfing. Health Marine Operations Coordinator will send hand-outs. Movement Lifestyle On track( 1:14 PM EDT) Riddhi Buchanan RD Note: Continue to walk stairs and walks when can. Will continue using stairs as it's colder. Look into finding weights free online or at [employer] stores. Could use water-filled milk jugs as weights-a full gallon jug would be 8 lbs. Will look into nearby rec center 04/16/22 NATHALIA documented as of this encounter Visit Diagnoses Not on filedocumented in this encounter Care Teams Upholstery Restorer Relationship Specialty Start Date End Date Lia Pearson APRN [address] [place] [address] PCP - General Geriatric Medicine 02/09/22 documented as of this encounter
--- OUTSIDE RECORDS SUMMARY | 2023-11-26 19:29 | XMS_ITS | Encounter Summary ---
Author Organization [facility] [place] [address] Care Team Providers Care Textile Machine Operator Name Role Phone Lia Pearson APRN Primary Care Provider [phone] Reason for Visit * Reason Comments Medication Refill Encounter Details Date Type Department Care Team (Late st Contact Info) Description 06/07/2023 Refill [place]stetrics [place] [phone] Marco Patle MD [facility] DR OBSTETRICS & [place] [address] Abnormal uterine bleeding (AUB) Social History Tobacco [...] EDT TH Visit (TeleHealth) [place] [phone] Michael Morgan, [facility] [place] [address] documented as of this encounter Goals Goal [...] Note: Practice STOP and Urge Surfing. Health Horse Race Timer will send hand-outs. Movement Lifestyle On track( 1:14 PM EDT) Riddhi Buchanan RD Note: Continue to walk stairs and walks when can. Will continue using stairs as it's colder. Look into finding weights free online or at [employer] stores. Could use water-filled milk jugs as weights-a full gallon jug would be 8 lbs. Will look into nearby rec center 04/16/22 documented as of this encounter Visit Diagnoses Diagnosis Abnormal uterine bleeding (AUB) documented in this encounter Care Teams Textile Machine Operator Relationship Specialty Start Date End Date Lia Pearson APRN [address] [place] [address] PCP - General Geriatric Medicine 02/09/22 documented as of this encounter
--- OUTSIDE RECORDS SUMMARY | 2023-11-26 19:29 | XMS_ITS | Encounter Summary ---
Author Organization [facility] [place] [address] Care Team Providers Care Food Safety Field Specialist Name Role Phone NasraLia chávez JULIO C Primary Care Provider [phone] Reason for Visit * Auth/Cert (Routine) Specialty Diagnoses / Procedures Referred By Della kern Referred To Contact Diagnoses Morbid Obesity Procedures PRO GASTRIC BYPASS, OBESE<150CM VERNELL-EN-Y PRO LAP GASTRIC BYPASS/VERNELL-EN-Y @LAPAROSCOPIC GASTROPLASTY W/ VERNELL-EN-Y CONSTRUCTION (WRVU 29.4) Gee Contreras MD [facility] [place] [address] [facility] Referral ID Status Reason Start Date Expiration Date Visits Re quested Visits Authorized [id number] 1 1 Encounter Details Date Type Department Care Team (Late st Contact Info) Description 06/03/2023 4:06 PM EST Anesthesia Event [place] [address] López Orellana MD [facility] ANESTHESIOLOGY [place], [place] [id number] Paddy Wallace MD [facility] ANESTHESIOLOGY [place], [place] [phone] Anesthesia Record Procedure Summary Procedure Name Responsible Anesthesiologist Anesthesia Start Time Anesthesia Stop Time @LAPAROSCOPIC GASTROPLASTY W/ VERNELL-EN-Y CONSTRUCTION (WRVU 29.4) (Abdomen) Lópze Orellana MD 06/03/23 1606 06/03/232036 Events Date Time Event Comment 06/03/2023 1443 1606 AN Verify 1606 Start 1606 An Start Data 1620 An Induction 1630 An Intubation 1645 Anesthesia Ready 1655 Procedure Start 1658 Break/Relief In I assumed ca re for Break Relief before which we: 1. Identified the patient 2. Identified the responsible provider(s) 3. Reviewed the pertinent medical history 4. Discussed the surgical plan and course 5. Reviewed intra-op anesthesia management and issues during anesthesia 6. Set expectations for the relief (and/or post-procedure) period 7. Allowed opportunity for questions and acknowledgement of understanding LISA COOPER MD 1710 Break/Relief Out 1922 Handoff Intra-procedure anesthesia care was transferred after review of the patient's history, current anesthetic/surgical status and procedural plan, anticipated issues and expected post-operative course (including disposition.) LISA COOPER MD 2016 Extubation/LMA Out 2021 an stop data 2035 Recovery or ICU Handoff Isaura ent care was transferred to the destination unit staff after review of the patient's medical history, current anesthetic/surgical status and plan, according to the Provider Handoff Checklist. 2036 Stop Meds Name Total Midazolam 2 mg fentaNYL 100 mcg Propofol 200 mg Rocuronium 130 mg ePHEDrine 15 mg Ondansetron 8 mg Dexamethasone 8 mg ceFAZolin (Ancef) 3 g vial a ttach to sodium chloride 0.9% 100 mL Mini-Bag Plus 3 g esmolol 30 mg dexmedeTOMIDine 40 mcg propofol INF 665.03 mg PHENYLephrine INF 8,125 mcg sugammadex 400 mg lactated ringers infusion 800 mL dextrose 10% infusion 250 mL * Agents Name O2 * Blood No blood administrations on file. Lines, Drains, and Airways Type Details Placement Removal Supraglottic Mask Ventilation: Ad junct (2); LMA Type: air-Q; LMA Size: 4; Inserted by: MD Maida; Removal Date: 06/03/23; Removal Time: 201606/03/23 1659 by 06/03/23 2017 by Bronson Long, SPA THERAPIST Incision 03/03/22; 0833; midl ine; vagina; other (see comments); hyesteroscopy; 06/05/23; 1002 03/03/22 0833 by Sadiq Whyte RN 06/05/23 1002 by Gustabo Russ RN Incision 10/13/22; 2011; Left , anterior; wrist; non-laparascopic puncture; Snuffbox access for UAE MD Margarita Morrison; 06/05/23; 1002 10/13/222011 by Deneen Grider RN 06/05/23 1002 by Gustabo Russ RN Incision 06/03/23; abdomen; laparoscopic punctures (specify); laparoscopic puncture sites x6; 07/12/23; 0159 06/03/23 0000 by Shiv George RN 07/12/23 0159 by Prabha Fish RN PIV 06/03/23; 1410; rfkg-qme-[id number] catheter system; 18 gauge; cephalic vein (lateral side of arm), right; Anatomical Landmarks; Anesthesia; distraction, intradermal injection, tolerated well; 06/05/23; 1002 06/03/23 1410 by Jeromy Samson RN 06/05/23 1002 by Gustabo Russ RN ETT Mask Ventilation: Ad junct (2); ETT Type: Cuffed; ETT Size: 7.5 mm; Exchange: JENNIFER, Maida; Indirect: Video; Notes: Asleep, Pre-O2, Stylette, Troop Elev.; Attempts: 3; Laryngoscopy Grade: 1; ETT Placement Verified By: Capnometry, Visual; Secured at Teeth: 23 cm; Inserted by: MD Maida; Removal Date: 06/03/23; Removal Time: 201606/03/23 1630 by Yonatan Bey MD 06/03/232016 by Bronson Long CRNA NG/OG Tube 06/03/23; 1637; orog astric; center mouth; 06/03/23; 19006/03/23 1637 by Yonatan Bey MD 06/03/23 1900 by Paddy Arthur RN documented in this encounter Social History Tobacco Use Types Packs/Day Years Used Date Smoking Tobacco: Former Smokeless Tobacco: Never Alcohol Use Standard Drinks/Week Comments Not Currently 0 (1 standard drink = 0.6 oz pur e alcohol) DH IPV Inpatient Questions Answer Date Recorded Prevent Contact with Others no 12/2023 Feels Threatened by Someone no 12/2023 Feels Unsafe at Home no 06/24/2023 Physical Signs of Abuse Present no 06/24/2023 Sex and Gender Information Value Date Recorded Sex Assigned at Not on file Gender Identity Not on file Sexual Orientation Not on file documented as of this encounter OR Notes * Anesthesia Postprocedure Evaluation - López Orellana MD - 06/24/2023 1:34 AM EST Department of Anesthesiology Post-procedure Note Patient: Zenia Worley Procedure Summary Date: 06/03/23 Room / Location: [address] MAIN OR Anesthesia Start: 1605 Anesthesia Stop: 2036 Procedure: @LAPAROSCOPIC GASTROPLASTY W/ VERNELL-EN-Y CONSTRUCTION (WRVU 29.4) (Abdomen) Diagnosis: (Morbid Obesity) Surgeons: Gee Contreras MD Responsible Provider: López Orellana MD Anesthesia Type: general ASA Status: 3 All Anesthesia Providers: Anesthesiologist: López Orellana MD; Lisa Cooper MD SPA THERAPIST: Bronson Long CRNA Golf Course Mechanic: Yonatan Bey MD Vitals Value Taken Time BP 153/80 06/04/23 1330 Temp 37.4 ??C (99.3 ??F) 06/04/23 1330 Pulse 95 06/04/23 0000 Resp 20 06/04/23 1330 SpO2 97 % 06/04/23 1330 Pain Level 4 06/04/23 1028 ANES POST EVAL * Anesthesia Preprocedure Evaluation - Lisa Cooper MD - 06/02/2023 9:12 PM EST Pre-Anesthesia Evaluation for: Zenia perkins 33 y.o. female. Procedure(s): @LAPAROSCOPIC GASTROPLASTY W/ VERNELL-EN-Y CONSTRUCTION (WRVU 29.4) Patient Active Problem List Diagnosis Date Noted Cardiomegaly 01/22/2023 Constipation 01/22/2023 Diabetic macular edema 01/22/2023 Dissociative identity disorder 01/22/2023 Heart failure with preserved ejection fraction 01/22/2023 Hemorrhagic shock 01/22/2023 Iron deficiency anemia due to chronic blood loss 01/22/2023 Papilledema 01/22/2023 Plantar fasciitis 01/22/2023 Pleural effusion 01/22/2023 ST elevation 01/22/2023 Status post embolization of uterine artery 01/22/2023 Schizoaffective disorder, bipolar type 01/22/2023 Vaginal bleeding 10/13/2022 Class 3 severe obesity with body mass index (BMI) of 60.0 to 69.9 in adult 02/20/2022 Vitamin D deficiency 02/18/2022 Insomnia 12/19/2021 Essential hypertension, benign 09/26/2021 Long-term insulin use 09/26/2021 exterminator helper termite 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 09/26/2021 Mixed hyperlipidemia 02/26/2021 RICHMOND (obstructive sleep apnea) 02/26/2021 Other specified hypothyroidism 02/26/2021 PTSD (post-traumatic stress disorder) 02/26/2021 Schizoaffective disorder 02/26/2021 Type 2 diabetes mellitus with hyperglycemia, with long-term current use of insulin 02/26/2021 Dissociation 02/26/2021 Past Medical History: Diagnosis Date Anemia Angina [...] apnea Spinal paralysis Transfusion history Past Surgical History: Procedure Laterality Date CHG CYTOPATH,CERV/VAG,AUTO THIN LAYER,INTERP N/A 03/03/2022 PAP SMEAR UNDER ANESTHESIA performed by Sabrina Swain MD at [facility] MAIN OR IR ARTERIAL INTERVENTION 10/13/2022 IR Arterial Intervention 10/13/2022 Pradip Avila MD [facility] INTERVENTIONL RAD PRG ECHOGRAPHY TRANSVAGINAL NON-OB Midline 03/03/2022 ULTRASOUND, TRANSVAGINAL (WRVU 0.69) performed by Sabrina Swain MD at [facility] MAIN OR PRO HYSTEROSCOPY, W/ENDO BX N/A 03/03/2022 HYSTEROSCOPY, SURG W/ENDOMETRIAL SAMPLING, POLYPECTOMY (WRVU 4.74) performed by Sabrina Swain MD [facility] MAIN OR PRO INSERT INTRAUTERINE DEVICE N/A 03/03/2022 INSERTION OF IUD, VAGINAL APPROACH (WRVU 1.01) performed by Sabrina Swain MD at [facility] MAIN OR PRO PELVIC EXAMINATION W ANESTH N/A 03/03/2022 PELVIC EXAM UNDER ANESTHESIA (WRVU 1.75) performed by Sabrina Swain MD at [facility] MAIN OR Social History Tobacco Use Smoking status: Former Smokeless tobacco: Never Substance Use Topics Alcohol use: Not Currently Social History Substance and Sexual Activity Drug Use Never Allergies Allergen Reactions Fluoxetine Affected glucose level Mushroom Rash Medications: MAR and/or home medications have been reviewed. Physical Exam: Preprocedure Vitals Current as of 06/02/232111 No BP, pulse, respiration, SpO2, or temperature recorded. Height: 167.6 cm (5' 5.98) (02/12/23) Weight: 184.4 kg (406 lb 9.6 oz) (02/12/23) BMI: 65.65 IBW: 59.3 kg (130 lb 10.4 oz) Airway Assessment: Mallampati: IV TM distance: >3 FB Neck ROM: full Cardiovascular Assessment: system normal Pulmonary Assessment: pulmonary exam normal Dental Assessment: Misc Assessment: Patient is wearing No contact(s). IV access: Peripheral line Last Filed Perioperative Cognitive Screening None Anesthesia Plan: ASA 3 general, with a(n) intravenous induction Zenia Worley is a 33 y.o. female with BMI of 65.58 kg/m2 scheduled for the following: Procedure(s): @LAPAROSCOPIC GASTROPLASTY W/ VERNELL-EN-Y CONSTRUCTION (WRVU 29.4) Medical History: - RICHMOND on home CPAP - HTN on Losartan - HLD on Crestor - HFpEF on Furosemide, Metoprolol - Vaginal/Uterine hemorrhage s/p IR guided uterine artery embolization - T2DM on Insulin, Tirzepatide, Empagliflozin, Metformin - exercise induced asthma - schizoaffective disorder on Aripiprazole, Chloropromazine, - night terrors/PTSD on Prazosin - chronic back pain on Gabapentin - chronic lower extremity pain on Robaxin Other notable medications: Doxepin Social History: former-smoker, occasional alcohol use Surgical History: Hysteroscopy with polypectomy 2021 Anesthetic History: Mask Ventilation: Easy (1); ETT Type: Cuffed; ETT Size: 7.5 mm; Mac Blade: 3; Notes: Asleep; Attempts: 1; Laryngoscopy Grade: 1; Relevant allergies: Fluoxetine Notable Labs: Lab Results Component Value Date HGB 14.0 02/11/2023 PLATELET 349 02/11/2023 INR 0.9 02/11/2023 NA 137 10/14/2022 K 4.9 10/14/2022 CO2 22 10/14/2022 CREATININE 0.90 10/14/2022 HA1C 5.8 10/15/2022 ABORH O Pos 10/13/2022 Exercise tolerance: >4 mets per chart review EKG: NSR ECHO: 09/2022- LVEF 75%, no wma or valvulopathy, RV systolic function mildly decreased, RVSP not reported NPO status at time of surgery: NPO > 8 hours Anesthetic Plan: -GA w/ ETT -Standard ASA monitoring -PIV access Yonatan Bey MD Golf Course Mechanic, PGY2/CA1 Pager # [phone] Attending addendum: Pt personally seen/examined, hx reviewed. 33yo morbidly obese F (BMI 68.7) w h/o schizoaffective d/o, chronic pain (gabapentin), RICHMOND (CPAP), HFpEF (LVEF 75%), exercise-induced asthma (rare Alb INH), IDDM (d/c'd empagliflozin 1wk ago, accidentally took yesterday), presenting for lap Vernell-En-Y GBP. Pt denies any possibility of . Preop BG was 60 on arrival and pt symptomatic--given 15g oral glucose gel and, after IV access obtained, 100ml D10. BMP, VBG, BOHB sent. VBG showed normal pH, normal lactate, HCO3 24.7. Plan for GA. Close monitoring for euglycemic DKA given SGLT2. Risks/benefits discussed with patient including, but not limited to, dental/airway/lip injury, vascular injury, nerve injury, thrombosis, limb ischemia, eye injury, blindness, adverse drug reactions, awareness, euglycemic DKA, stroke, ME, , among others. All questions answered to patient's satisfaction. LISA COOPER MD Region - Other Informed Consent: Anesthetic plan and risks discussed with patient. Use of blood products discussed with patient who consented to blood products. Plan discussed with resident. Anesthesia Screening documented in this encounter Plan of Treatment Upcoming Encounters Date Type Department Care Team (Late st Contact Info) Description 12/30/2023 2:45 PM EDT TH Visit (TeleHealth) [place] [address] Michael Morgan, [facility] [place] [address] documented as of this encounter Goals Goal Patient Goal Type Associated Problems Recent Progress Patient-Stated? Author Other (Enter personal goal) Lifestyle On track( 023 1:14 PM EDT) Riddhi Buchanan RD Note: -Add peanut butter to oatmeal -Continue to add beans to meals as a source of protein and fiber -If can, buy fresh vegetables and fruit from [employer]-sent message with resources -Choose whole grain options [...] Note: Practice STOP and Urge Surfing. Health Painter [employer] will send hand-outs. Movement Lifestyle On track( 023 1:14 PM EDT) Riddhi Buchanan RD Note: Continue to walk stairs and walks when can. Will continue using stairs as it's colder. Look into finding weights free online or at [employer]. Could use water-filled milk jugs as weights-a full gallon jug would be 8 lbs. Will look into nearby rec center 04/16/22 NATHALIA documented as of this encounter Visit Diagnoses Not on filedocumented in this encounter Administered Medications Inactive Administered Medications - up to 3 most recent administrations Medication Order MAR Action Action Date Dose Rate Site ceFAZolin (Ancef) 3 g vial attach to sodium chloride 0.9% 100 mL Mini-Bag Plus 3 g, Intravenous, ONCE, 1 dose, On Christa 06/03/23 at 1345, Administer over 30 Minutes, Day of Surgery (Day of Procedure), Indication for (Active or Suspected): Prophylaxis New Bag 06/03/2023 4:45 PM EST 3 g dexAMETHasone (Decadron) injection Intravenous, PRN, Starting on Christa 06/03/23 at 1718, Until Christa 06/03/23 at 2130, Anesthesia Intra-op, Routine Given 06/03/2023 5:18 PM EST 8 mg dexmedeTOMIDine (Precedex) (4 mcg/mL) bolus injection (Anesthsia) Intravenous, PRN, Starting on Christa 06/03/23 at 1619, Until Christa 06/03/23 at 2130, Anesthesia Intra-op, Routine Given 06/03/2023 4:30 PM EST 4 mcg Given 06/03/2023 4:29 PM EST 8 mcg Given 06/03/2023 4:26 PM EST 8 mcg dextrose 10% infusion Intravenous, CONTINUOUS PRN, Starting on Christa 06/03/23 at 1922, Until Christa 06/03/23 at 2130, Anesthesia Intra-op New Bag 06/03/2023 7:19 PM EST ePHEDrine sulfate (5 mg/mL) multi-dose injection Intravenous, PRN, Starting on Christa 06/03/23 at 1824, Until Wed06/03/23 at 2130, Anesthesia Intra-op, Routine Given 06/03/2023 6:24 PM EST 15 mg esmoloL (Brevibloc) (10 mg/mL) injection Intravenous, PRN, Starting on Christa 06/03/23 at 1620, Until Wed06/03/23 at 2130, Anesthesia Intra-op, Routine Given 06/03/2023 4:30 PM EST 10 mg Given 06/03/2023 4:24 PM EST 10 mg Given 06/03/2023 4:20 PM EST 10 mg fentaNYL (pf) (50 mcg/mL) multi-dose injection Intravenous, PRN, Starting on Christa 06/03/23 at 1620, Until Christa 06/03/23 at 2130, Anesthesia Intra-op, Routine Given 06/03/2023 6:55 PM EST 50 mcg Given 06/03/2023 4:20 PM EST 50 mcg lactated ringers infusion 1,000 mL, at 100 mL/hr, Intravenous, CONTINUOUS, Starting on Wed06/03/23 at 1345, Until Wed06/04/23 at 0139, Day of Surgery (Day of Procedure) New Bag 06/03/2023 4:06 PM EST midazolam (pf) (Versed) (1 mg/mL) multi-dose injection Intravenous, PRN, Starting on Wed06/03/23 at 1603, Until Wed06/03/23 at 2130, Anesthesia Intra-op, Routine Given 06/03/2023 4:03 PM EST 2 mg ondansetron (pf) (Zofran) (2 mg/mL) injection Intravenous, PRN, Starting on Wed06/03/23 at 2004, Until Wed06/03/23 at 2130, Anesthesia Intra-op, Routine Given 06/03/2023 8:04 PM EST 8 mg PHENYLephrine (Geovanni-Synephrine) (80 mcg/mL) in sodium chloride 0.9% 250 mL infusion Intravenous, CONTINUOUS PRN, Starting on Wed06/03/23 at 1754, Until Christa 06/03/23 at 2130, Anesthesia Intra-op, Routine Rate/Dose Change 06/03/2023 6:11 PM EST 75 mcg/min 56.25 mL/hr New Bag 06/03/2023 5:54 PM EST 50 mcg/min 37.5 mL/hr propofoL (Diprivan) (10 mg/mL) infusion Intravenous, CONTINUOUS PRN, Starting on Christa 06/03/23 at 1630, Until Christa 06/03/23 at 2130, Anesthesia Intra-op, Routine New Bag 06/03/2023 4:30 PM EST 30 mcg/kg/min 19.656 mL/hr propofoL (Diprivan) 10 mg/mL bolus injection (Anesthesia) Intravenous, PRN, Starting on Christa 06/03/23 at 1620, Until Christa 06/03/23 at 2130, Anesthesia Intra-op Given 06/03/2023 4:29 PM EST 40 mg Given 06/03/2023 4:27 PM EST 30 mg Given 06/03/2023 4:24 PM EST 30 mg rocuronium (Zemuron) (10 mg/mL) multi-dose injection Intravenous, PRN, Starting on Christa 06/03/23 at 1620, Until Christa 06/03/23 at 2130, Anesthesia Intra-op, Routine Given 06/03/2023 6:41 PM EST 30 mg Given 06/03/2023 4:20 PM EST 100 mg sugammadex (Bridion) 100 mg/mL injection Intravenous, PRN, Starting on Christa 06/03/23 at 2004, Until Christa 06/03/23 at 2130, Anesthesia Intra-op, Routine Given 06/03/2023 8:04 PM EST 400 mg documented in this encounter Care Teams Food Safety Field Specialist Relationship Specialty Start Date End Date Lia Pearson APRN [address] [place] [address] PCP - General Geriatric Medicine 02/09/22 documented as of this encounter
--- OUTSIDE RECORDS SUMMARY | 2023-11-26 19:29 | XMS_ITS | Encounter Summary ---
Author Organization [facility] Address [facility] [place] [address] Care Team Providers Care Bricklayer Apprentice Name Role Phone Lia Pearson STAKES PLAYER Primary Care Provider [phone] Encounter Details Date Type Department Care Team (Late st Contact Info) Description 03/29/2023 Telephone [place] [address] Estella Salomon, RD [facility] [place] [address] Social History Tobacco Use Types Packs/Day Years [...] Telephone Encounter - Estella Salomon, CORNELIO - 03/29/2023 3:15 PM EST Called pt in response to message from Meghan Maya. Pt is scheduled for laparoscopic RNY on04/07/[address] Contreras. Pt started her pre-op diet on 03/24/23. Pt states that on Wednesday she experienced difficulty with low BG. Pt states she took her insulin on Wednesday morning and has BG of 29. Pt used PB, crackers, cereal, and milk to treat low BG. Pt reports she went over the pre-op diet guidelines on Wednesday, Wednesday, and Wednesday as a result of treating low BG. Pt reports BG lows were mid 60s on Wednesday and Wednesday. Pt has not taken any insulin since Wednesday morning. Pt is tracking her intake in [employer] [facility], reports her intake for the last 3 days was: Wednesday: 1829 calories, 102g carbs, 84g protein Wednesday: 1429 calories, 111g carbs, 89g protein Wednesday: 1186 calories, 119g carbs, 94g protein Pt states she purchased glucose tablets today to help treat low BG going forward. Reviewed rule with pt. Advised pt to discussed low BG and insulin use with her steam press tender. Advised pt thatwe would not delay surgery at this point but that I would make her surgical team aware of her concerns. Advised pt to call back if she continues to have difficulty with low BG and staying within the pre-op diet parameters. Pt was agreeable to this plan. documented in this encounter Plan of Treatment Upcoming Encounters Date Type Department Care Team (Late st Contact Info) Description 12/30/2023 2:45 PM EDT TH Visit (TeleHealth) [place] [address] Michael Morgan, [facility] [place] [address] documented as of this encounter Goals Goal [...] Note: Practice STOP and Urge Surfing. Health Home Aide will send hand-outs. Movement Lifestyle On track( 023 1:14 PM EDT) Riddhi Buchanan RD Note: Continue to walk stairs and walks when can. Will continue using stairs as it's colder. Look into finding weights free online or at [employer] stores. Could use water-filled milk jugs as weights-a full gallon jug would be 8 lbs. Will look into nearby rec center 04/16/22 NATHALIA documented as of this encounter Visit Diagnoses Not on filedocumented in this encounter Care Teams Bricklayer Apprentice Relationship Specialty Start Date End Date Lia Pearson APRN [address] [place] [address] PCP - General Geriatric Medicine 02/09/22 documented as of this encounter
--- OUTSIDE RECORDS SUMMARY | 2023-11-26 19:29 | XMS_ITS | Encounter Summary ---
Author Organization [facility] [place] [address] Care Team Providers Care Floral Decorator Name Role Phone Lia Pearson APRN Primary Care Provider [phone] Encounter Details Date Type Department Care Team (Late st Contact Info) Description 05/13/2023 1:15 PM EST TH Visit (TeleHealth) [place] [address] Michael Morgan, [facility] [place] [address] Vaginal bleeding Social History Tobacco Use Types [...] this encounter Progress Notes * Michael Morgan, - 05/13/2023 1:15 PM EST INTERVENTIONAL RADIOLOGY Follow Up Progress Note Procedure(s): Uterine Artery Embolization (Gelfoam Embolization) on 10/13/22 Interval Events: Please see my initial follow up note of 11/12/22 and subsequent follow up notes of 02/11/23 and 03/08/23 for prior details. Since the prior follow up, the patient has had an increase in the vaginal bleeding recently, described as needing a few pads per day, which has since resolved. She is on Norethindrone which has been keeping the volume of bleeding at the same level otherwise. Current degree of vaginal bleeding is non -lifestyle-limiting. She denies any new symptoms. No need for transfusions. The patient and I discussed that with the recurrence of her bleeding and this intermittent increasein the degree of bleeding, that we may be approaching the need to repeat the uterine artery embolization (this time with a permanent agent rather than temporary gelfoam). The patient felt that given that the bleeding is now back to what it was previously, she would like to defer a repeat procedure f or now. She is currently scheduled for a Lobo-En-Y gastric bypass with plan for IUD placement on 06/03/22. Assessment: 32 y.o. female with history of significant vaginal and uterine hemorrhage which initially resolved following bilateral uterine artery embolization with gelfoam. Now with mild, non lifestyle limiting recurrent vaginal hemorrhage. Plan: Patient will continue to monitor symptoms. If bleeding increases, she will reach back out. Will plan to discuss with patient ~4-6 weeks post IUD placement to determine if uterine artery embolization is needed. Over 10 minutes of this 15 minute visit were spent in counseling and coordination of care. Michael Morgan DO, MPH Staff Physician - Interventional Radiology Pager [phone] documented in this encounter Plan of Treatment Upcoming Encounters Date Type Department Care Team (Late st Contact Info) Description 12/30/2023 2:45 PM EDT TH Visit (TeleHealth) [place] [address] Michael Morgan DO [facility] [place] [address] documented as of this encounter Goals Goal [...] Note: Practice STOP and Urge Surfing. Health Utility Worker [employer] will send hand-outs. Movement Lifestyle On track( 023 1:14 PM EDT) Riddhi Buchanan RD Note: Continue to walk stairs and walks when can. Will continue using stairs as it's colder. Look into finding weights free online or at [employer] stores. Could use water-filled milk jugs as weights-a full gallon jug would be 8 lbs. Will look into nearby rec center 04/16/22 NATHALIA documented as of this encounter Visit Diagnoses Diagnosis Vaginal bleeding Other specified noninflammatory disorder of vagina documented in this encounter Care Teams Floral Decorator Relationship Specialty Start Date End Date Lia Pearson APRN [address] [place] [address] PCP - General Geriatric Medicine 02/09/22 documented as of this encounter
--- OUTSIDE RECORDS SUMMARY | 2023-11-26 19:30 | XMS_ITS | Encounter Summary ---
Author Organization [facility] [place] [address] Care Team Providers Care Packing House Laborer Name Role Phone Lia Pearson APRN Primary Care Provider [phone] Encounter Details Date Type Department Care Team (Latest Contact Info) Description 03/18/2023 Travel Social History Tobacco Use Types Packs/Day [...] EDT TH Visit (TeleHealth) [place] [address] Michael Morgan, [facility] [place] [address] documented as of this encounter Goals Goal [...] Note: Practice STOP and Urge Surfing. Health Site Surveyor will send hand-outs. Movement Lifestyle On track( 023 1:14 PM EDT) Riddhi Buchanan RD Note: Continue to walk stairs and walks when can. Will continue using stairs as it's colder. Look into finding weights free online or at [employer] stores. Could use water-filled milk jugs as weights-a full gallon jug would be 8 lbs. Will look into nearby rec center 04/16/22 NATHALIA documented as of this encounter Visit Diagnoses Not on filedocumented in this encounter Care Teams Packing House Laborer Relationship Specialty Start Date End Date Lia Pearson APRN [address] [place] [address] PCP - General Geriatric Medicine 02/09/22 documented as of this encounter
--- OUTSIDE RECORDS SUMMARY | 2023-11-26 19:30 | XMS_ITS | Encounter Summary ---
Author Organization [facility] [place] [address] Care Team Providers Care Cdl Dedicated Truck Driver Name Role Phone Lia Pearson APRN Primary Care Provider [phone] [phone] Encounter Details Date Type Department Care Team (Late st Contact Info) Description 11/27/2022 Telephone Weight [place] [address] Raisa Vallejo, PhD [facility] [place] [address] Social History Tobacco Use Types Packs/Day Years [...] encounter Miscellaneous Notes * Telephone Encounter - Raisa Vallejo, PhD - 11/27/2022 3:16 PM EDT Called Zenia's therapist, Dale Friend. No answer. Left message to return call. documented in this encounter Plan of Treatment Upcoming Encounters Date Type Department Care Team (Late st Contact Info) Description 12/30/2023 2:45 PM EDT TH Visit (TeleHealth) [place] [address] Michael Morgan, [facility] [place] [address] documented as of this encounter Goals Goal Patient Goal Type Associated Problems Recent Progress Patient-Stated? Author Other (Enter personal goal) Lifestyle On track( 1:14 PM EDT) Riddhi Buchanan RD Note: -Add peanut butter to oatmeal -Continue to add beans to meals as a source of protein and fiber -If can, buy fresh vegetables and fruit from [employer] market-sent message with resources -Choose whole grain [...] Note: Practice STOP and Urge Surfing. Health Pediatrics Teacher will send hand-outs. Movement Lifestyle On track( 1:14 PM EDT) Riddhi Buchanan RD Note: Continue to walk stairs and walks when can. Will continue using stairs as it's colder. Look into finding weights free online or at [employer]. Could use water-filled milk jugs as weights-a full gallon jug would be 8 lbs. Will look into nearby rec center 04/16/22 NATHALIA documented as of this encounter Visit Diagnoses Not on filedocumented in this encounter Care Teams Cdl Dedicated Truck Driver Relationship Specialty Start Date End Date Lia Pearson APRN [address] [place] [address] PCP - General Geriatric Medicine 02/09/22 documented as of this encounter
--- OUTSIDE RECORDS SUMMARY | 2023-11-26 19:30 | XMS_ITS | Encounter Summary ---
Author Organization [facility] [place] [address] Care Team Providers Care Business Test Analyst Name Role Phone Lia Pearson APRN Primary Care Provider [phone] Encounter Details Date Type Department Care Team (Late st Contact Info) Description 12/18/2022 2:00 PM EDT Notes [place] [address] Social History Tobacco Use Types Packs/Day Years Used Date Smoking Tobacco: Former Smokeless Tobacco: Never Alcohol Use Standard Drinks/Week Comments Not Currently 0 (1 standard drink = 0.6 oz pur e alcohol) Sex and Gender Information Value Date Recorded Sex Assigned at Not on file Gender Identity Not on file Sexual Orientation Not on file documented as of this encounter Progress Notes * Irais Arthur - 12/18/2022 2:00 PM EDT PATIENT ATTENDED THE INTRO TO BARIATRIC SURGERY ON DECEMBER 18, 2022 FOR THE [facility] PROGRAM documented in this encounter Plan of Treatment Upcoming Encounters Date Type Department Care Team (Late st Contact Info) Description 12/30/2023 2:45 PM EDT TH Visit (TeleHealth) [place] [phone] Michael Morgan, [facility] [place] [address] documented as of this encounter Goals Goal Patient Goal Type Associated Problems Recent Progress Patient-Stated? Author Other (Enter personal goal) Lifestyle On track( 1:14 PM EDT) Riddhi Buchanan RD Note: -Add peanut butter to oatmeal -Continue to add beans to meals as a source of protein and fiber -If can, buy fresh vegetables and fruit from [employer] market-sent message with resources -Choose whole grain [...] Note: Practice STOP and Urge Surfing. Health Build Manager will send hand-outs. Movement Lifestyle On track( 023 1:14 PM EDT) Riddhi Buchanan RD Note: Continue to walk stairs and walks when can. Will continue using stairs as it's colder. Look into finding weights free online or at [employer]. Could use water-filled milk jugs as weights-a full gallon jug would be 8 lbs. [facility] into [facility] 04/16/22 NATHALIA documented as of this encounter Visit Diagnoses Not on filedocumented in this encounter Care Teams Business Test Analyst Relationship Specialty Start Date End Date Lia Pearson APRN [address] [place] [address] PCP - General Geriatric Medicine 02/09/22 documented as of this encounter
--- OUTSIDE RECORDS SUMMARY | 2023-11-26 19:30 | XMS_ITS | Encounter Summary ---
Author Organization [facility] [place] [address] Care Team Providers Care Helmet Hat Sweatband Puncher Name Role Phone Lia Pearson APRN Primary Care Provider [phone] Encounter Details Date Type Department Care Team (Late st Contact Info) Description 02/11/2023 11:59 PM EDT Anesthesia Event [place] [address] Trinity Dumont MD [facility] [place] [address] Anesthesia Record Procedure Summary Procedure Name Responsible Anesthesiologist Anesthesia Start Time Anesthesia Stop Time TELEPHONE OFFICE VISIT Events No events on file. Meds * Agents No agents on file. * Blood No blood administrations on file. Lines, Drains, and Airways No LDAs on file. documented in this encounter Social History Tobacco [...] of this encounter OR Notes * Anesthesia Preprocedure Evaluation - Trinity Dumont MD - 02/12/2023 10:17 AM EDT Images from the original note were not included. Pre-Anesthesia Evaluation for: Zenia Worley a 32 y.o. female. Patient Active Problem List Diagnosis Date Noted ??? Cardiomegaly 01/22/2023 ??? Constipation 01/22/2023 ??? Diabetic macular edema 01/22/2023 ??? Dissociative identity disorder 01/22/2023 ??? Heart failure with preserved ejection fraction 01/22/2023 ??? Hemorrhagic shock 01/22/2023 ??? Iron deficiency anemia due to chronic blood loss 01/22/2023 ??? Papilledema 01/22/2023 ??? Plantar fasciitis 01/22/2023 ??? Pleural effusion 01/22/2023 ??? ST elevation 01/22/2023 ??? Von Willebrand disease 01/22/2023 ??? Status post embolization of uterine artery 01/22/2023 ??? Schizoaffective disorder, bipolar type 01/22/2023 ??? Vaginal bleeding 10/13/2022 ??? Class 3 severe obesity with body mass index (BMI) of greater than or equal to 70 in adult 02/20/2022 ??? Vitamin D deficiency 02/18/2022 ??? Insomnia 12/19/2021 ??? Essential hypertension, benign 09/26/2021 ??? Long-term insulin use 09/26/2021 ??? terminal manager 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 09/26/2021 ??? Mixed hyperlipidemia 02/26/2021 ??? RICHMOND (obstructive sleep apnea) 02/26/2021 ??? Other specified hypothyroidism 02/26/2021 ??? PTSD (post-traumatic stress disorder) 02/26/2021 ??? Schizoaffective disorder 02/26/2021 ??? Type 2 diabetes mellitus with hyperglycemia, with long-term current use of insulin 02/26/2021 ??? Dissociation 02/26/2021 Past Medical History: Diagnosis Date ??? Anemia ??? Angina pectoris ??? Asthma ??? Bleeding disorder ??? Cellulitis and abscess of buttock 12/2017 immobilized after panic induce seizure, developed bedsore, flesh eating bacteria, debridement, exposed tailbne, 6 months to heal ??? Chronic anxiety ??? CPAP (continuous positive airway pressure) dependence ??? Diabetes ??? Gastroesophageal reflux ??? High blood pressure ??? Hyperlipidemia ??? Hypothyroid ??? Irregular heart beat ??? Motion sickness ??? Obstructive sleep apnea ??? Spinal paralysis ??? Transfusion history Past Surgical History: Procedure Laterality Date ??? CHG CYTOPATH,CERV/VAG,AUTO THIN LAYER,INTERP N/A 03/03/2022 PAP SMEAR UNDER ANESTHESIA performed by Sabrina Swain MD at [facility] MAIN OR ??? IR ARTERIAL INTERVENTION 10/13/2022 IR Arterial Intervention 10/13/2022 Pradip Avila MD [facility] INTERVENTIONL RAD ??? PRG ECHOGRAPHY TRANSVAGINAL NON-OB Midline 03/03/2022 ULTRASOUND, TRANSVAGINAL (WRVU 0.69) performed by Sabrina Swain MD at [facility] MAIN OR ??? PRO HYSTEROSCOPY, W/ENDO BX N/A 03/03/2022 HYSTEROSCOPY, SURG W/ENDOMETRIAL SAMPLING, POLYPECTOMY (WRVU 4.74) performed by Sabrina Swain MD [facility] MAIN OR ??? PRO INSERT INTRAUTERINE DEVICE N/A 03/03/2022 INSERTION OF IUD, VAGINAL APPROACH (WRVU 1.01) performed by Sabrina Swain MD at [facility] MAIN OR ??? PRO PELVIC EXAMINATION W ANESTH N/A 03/03/2022 PELVIC EXAM UNDER ANESTHESIA (WRVU 1.75) performed by Sabrina Swain MD at [facility] MAIN OR Social History Tobacco Use ??? Smoking status: Former ??? Smokeless tobacco: Never Substance Use Topics ??? Alcohol use: Not Currently Social History Substance and Sexual Activity Drug Use Never Allergies Allergen Reactions ??? Fluoxetine Affected glucose level ??? Mushroom Rash Medications: MAR and/or home medications have been reviewed. Physical Exam: Preprocedure Vitals Current as of 02/12/23 1017 No BP, pulse, respiration, SpO2, or temperature recorded. Height: Weight: BMI: IBW: Airway Assessment: Mallampati: I TM distance: >3 FB Neck ROM: full Cardiovascular Assessment: Rhythm: regular Pulmonary Assessment: unlabored breathing pulmonary exam normal Dental Assessment: Misc Assessment: IV access: Peripheral line Last Filed Perioperative Cognitive Screening None Anesthesia Plan Anesthesia Screening Note: Date and Time of Entry: 02/12/2023 9:16 AM Hx of Anesthesia Problem: Per surgical note: would like anesthesia consult because of history of aspiration pneumonia, asking about sleep apnea, anesthesia, intubation Screening Visit Type: Interviewed in person Findings, Assessment and Plan: 31 y.o. female who is being evaluated for bariatric surgery. Referred to PCC for: - per surgical note: multiple medical issues, NSTEMI history, possible difficult airway PMH: - Clarified NSTEMI: patient was told by Bariatric surgery office that she had a stress on her heartdue to the severe bleeding this May. No actual records of a diagnosis of a Type II NSTEMI in eDH jenni her discharge summary. - HTN (on losartan, metoprolol) - LE pain and swelling (furosemide - swelling has been stable on diuretic) - RICHMOND: wears CPAP nightly - Asthma - exercise induced, does not use inhaler. No recent exacerbations - Prior aspiration pneumonia in 2018: had syncopal episode due to hypoglycemia but had just eaten. Aspirated when first responders intubated her. Was in the hospital intubated for 3 days but then recovered. - Type 2 DM: on insulin, metformin, ozempic (A1C 6.2) - Hypothyroidism on levothyroxine - Panic attacks, PTSD, schizoaffective disorder (on Aripiprazole, prazosin ziprasidone) - Chronic back pain on gabapentin - Abnormal uterine bleeding with hemorrhage which required 5 U PRBC, s/p bilateral uterine artery embolization- being seen by Hematology, bleeding diathesis labs drawn yesterday, is following up withHematology next week. Their plan is for lovenox BID postop. - Schizoaffective disorder, PTSD (aripiprazole, ziprasidone), on prazosin for night terrors - Had COVID infection (12/25/21), symptoms consisted of fever, body aches, chills, cough. Symptoms have since resolved. Anesthetic/Airway Hx: - Gr1v MAC3b for hysteroscopy 02/2022, and also for embolization 09/2022 - No complications from the above, no sore throat or PONV LABS reviewed. EKG 09/2022 Normal sinus rhythm Low voltage QRS Cannot rule out Anterior infarct (due to low voltage) TTE 09/2022 - The left ventricle is normal in size with mildly increased wall thickness. Systolic function is hyperdynamic and ejection fraction is visually estimated to be 75%. There are no regional wall motion abnormalities. - The right ventricle is probably normal in size and mildly reduced in function. The pulmonary artery systolic pressure could not be estimated. - There are no hemodynamically significant valvular abnormalities. Functional Capacity: DASI 44 points. ASSESSMENT: 1. NSTEMI/heart failure - See above. She has not had any chest pains, dyspnea, palpitations, syncope/presyncope and has remained active with a good functional capacity per DASI - TTE and EKG were last done Dec 2022, requested and pending 2. Possible coagulopathy - follow-up Hematology's evaluation and appreciate recommendations for perioperative blood management 3. RICHMOND CPAP - states she felt groggy after embolization surgery and wishes she had her CPAP with her in recovery instead of just the oxygen mask. She will bring it with her for bariatric surgery, and would like to use it 4. Airway. - Prior intubations with direct laryngoscopy appear uneventful. No sore throats after both episodes. Has also since lost 27lbs. 5. Semaglutide - per Bariatric surgery and ASA's current consensus, hold 1 week prior to scheduled surgery - prior aspiration pneumonia was not in the setting of ozempic use (started only in 2019) - did not hold ozempic for 1 week prior to last 2 surgeries, no aspiration events noted - gets her dose on Wednesday, usually feels full/has no appetite until 6. Consider arterial line for BP monitoring and coagulation/H&H monitoring - Decision deferred to [id number] team; appears she was hemodynamically stable for her last 2 GA's here including uterine artery embolization, neither of which utilized invasive BP monitoring. Trinity Dumont MD 01/06/2022 Perioperative Care Clinic phone extension: [phone] documented in this encounter Plan of Treatment Upcoming Encounters Date Type Department Care Team (Late st Contact Info) Description 12/30/2023 2:45 PM EDT TH Visit (TeleHealth) [place] [address] Michael Morgan, [facility] [place] [address] documented as of this encounter Goals Goal Patient Goal Type Associated Problems Recent Progress Patient-Stated? Author Other (Enter personal goal) Lifestyle On track( 1:14 PM EDT) Riddhi Buchanan RD Note: -Add peanut butter to oatmeal -Continue to add beans to meals as a source of protein and fiber -If can, buy fresh vegetables and fruit from [employer] market-sent message with resources -Choose whole [...] Note: Practice STOP and Urge Surfing. Health General Farm Manager will send hand-outs. Movement Lifestyle On track( 1:14 PM EDT) Riddhi Buchanan RD Note: Continue to walk stairs and walks when can. Will continue using stairs as it's colder. Look into finding weights free online or at [employer] stores. Could use water-filled milk jugs as weights-a full gallon jug would be 8 lbs. Will look into nearby [facility] 04/16/22 documented as of this encounter Visit Diagnoses Not on filedocumented in this encounter Care Teams Helmet Hat Sweatband Puncher Relationship Specialty Start Date End Date Lia Pearson APRN [address] [place] [address] PCP - General Geriatric Medicine 02/09/22 documented as of this encounter
--- OUTSIDE RECORDS SUMMARY | 2023-11-26 19:30 | XMS_ITS | Encounter Summary ---
Author Organization [facility] [place] [address] Care Team Providers Care Automatic Car Wash Attendant Name Role Phone Lia Pearson APRN Primary Care Provider [phone] Encounter Details Date Type Department Care Team (Late st Contact Info) Description 01/28/2023 Orders Only Hematology [place] [address] Claudine Yang MD [facility] HEMATOLOGY/[place] [address] Excessive bleeding in premenopausal period (Primary Dx) Social History Tobacco Use Types Packs/Day Years [...] EDT TH Visit (TeleHealth) Interventional [place] [address] Michael Morgan, [facility] [place] [address] documented as of this encounter Goals Goal Patient Goal Type Associated Problems Recent Progress Patient-Stated? Author Other (Enter personal goal) Lifestyle On track( 1:14 PM EDT) Riddhi Buchanan RD Note: -Add peanut butter to oatmeal -Continue to add beans to meals as a source of protein and fiber -If can, buy fresh vegetables and fruit from [employer] market-sent message with resources -Choose whole grain [...] Note: Practice STOP and Urge Surfing. Health Metalsmith will send hand-outs. Movement Lifestyle On track( 1:14 PM EDT) Riddhi Buchanan RD Note: Continue to walk stairs and walks when can. Will continue using stairs as it's colder. Look into finding weights free online or at [employer] stores. Could use water-filled milk jugs as weights-a full gallon jug would be 8 lbs. Will look into nearby [facility] center 12/1/22 documented as of this encounter Visit Diagnoses Diagnosis Excessive bleeding in premenopausal period- Primary Premenopausal menorrhagia documented in this encounter Care Teams Automatic Car Wash Attendant Relationship Specialty Start Date End Date Lia Pearson APRN [address] [place] [address] PCP - General Geriatric Medicine 02/09/22 documented as of this encounter
--- OUTSIDE RECORDS SUMMARY | 2023-11-26 19:30 | XMS_ITS | Encounter Summary ---
Author Organization [facility] [place] [address] Care Team Providers Care [employer] Insights Name Role Phone Lia Pearson APRN Primary Care Provider [phone] [phone] Encounter Details Date Type Department Care Team (Late st Contact Info) Description 12/09/2022 Telephone Weight [place] [phone] Deneen Dalal, RN Social History Tobacco Use Types Packs/Day [...] Miscellaneous Notes * Telephone Encounter - Deneen Dalal, RN - 12/09/2022 11:05 AM EDT Called pt. Asked how we can help. She is just struggling with fluctuating weight. She began weighting herself daily and knew she shouldn't so she gave her scale to a friend to hold during the week. She has lost 20 lbs but feels stuck. Praised her for losing 20 lbs and discussed how it was a big accomplishment. I recommended she go to the information session for bariatric surgery and ask if the 4 lbs would prevent her from surgery. Asked it another apt with a RD might help. She said that it might. I will have ward secretary call for scheduling. Discussed that there is a lot of tricks to help out there is was a matter of figuring out what might work for her, to keep working on her healthy eating mckinney bits and exercise. She states that she has been walking for 30 minutes a day and might be able to add a little more. I asked what kind of advice she was looking for. She was had no expectations just wanted advice. She is ok with the current plan. Discussed that she can reach out any time she needs and we can get an other apt with Dr. Waller if bariatrics will not do surgery until she gets down to 413. * Telephone Encounter - Deneen Dalal RN - 12/09/2022 10:59 AM EDT Pt called stating that she is not doing well. She is stressed that she has been unable to lose the 4 lbs needed to have surgery. She would like a call back. documented in this encounter Plan of Treatment Upcoming Encounters Date Type Department Care Team (Late st Contact Info) Description 12/30/2023 2:45 PM EDT TH Visit (TeleHealth) Interventional [place] [address] Michael Morgan, [facility] [place] [address] documented as of this encounter Goals Goal [...] Note: Practice STOP and Urge Surfing. Health Daytime Babysitter will send hand-outs. Movement Lifestyle On track( 023 1:14 PM EDT) Riddhi Buchanan RD Note: Continue to walk stairs and walks when can. Will continue using stairs as it's colder. Look into finding weights free online or at [email or web address] stores. Could use water-filled milk jugs as weights-a full gallon jug would be 8 lbs. Will look into nearby rec center 04/16/22 NATHALIA documented as of this encounter Visit Diagnoses Not on filedocumented in this encounter Care Teams [employer] Relationship Specialty Start Date End Date Lia Pearson APRN [address] [place] [address] PCP - General Geriatric Medicine 02/09/22 documented as of this encounter
--- OUTSIDE RECORDS SUMMARY | 2023-11-26 19:30 | XMS_ITS | Encounter Summary ---
Author Organization [facility] Address [facility] [place] [address] Care Team Providers Care Panel Wirer Name Role Phone Lia Pearson FILTER HELPER Primary Care Provider [phone] Encounter Details Date Type Department Care Team (Late st Contact Info) Description 12/03/2022 Telephone Weight and Wellness at [facility], [place] [address] Raisa Vallejo, PhD [facility] [place] [address] Social History Tobacco Use Types Packs/Day Years [...] Telephone Encounter - Raisa Vallejo, PhD - 12/03/2022 3:06 PM EDT Spoke to Zenia's therapist who reported: When did you begin providing care to the patient? Has been caring her for a couple of years Does the patient consistently attend appointments with you? Yes No Has the patient been psychologically stable during that time? Yes No Initially noticed change in mood with switch from geodon but Zenia reached out for support. Has been able to use her skills. Community members have been supporting her. Is the patient compliant with the treatment plan? Yes No Will you be following the patient post-surgery? Yes No Has the patient been hospitalized for mental health reasons? Yes - although highly comorbid with medical problems. Has called crisis line when needed but has not been placed. 7. Are you aware of any binging or purging behaviors by the patient? Yes No In the past but nothing recently. Notes that Zenia has been motivated for surgery and has been engaging in health behavior changes. Please list any reservations about the patient proceeding with the surgery. None although would recommend that we verify the stability of her community support, e.g., have them come to medical appointment. Based on this information Zenia's light status has been updated to Green. documented in this encounter Plan of Treatment Upcoming Encounters Date Type Department Care Team (Late st Contact Info) Description 12/30/2023 2:45 PM EDT TH Visit (TeleHealth) [place] [address] Michael Morgan, [facility] [place] [address] documented as of this encounter Goals Goal Patient Goal Type Associated Problems Recent Progress Patient-Stated? Author Other (Enter personal goal) Lifestyle On track( 023 1:14 PM EDT) Riddhi Buchanan RD Note: -Add peanut butter to oatmeal -Continue to add beans to meals as a source of protein and fiber -If can, buy fresh vegetables and fruit from [employer] market-sent message with resources -Choose whole grain [...] Note: Practice STOP and Urge Surfing. [facility] [employer] will send hand-outs. Movement Lifestyle On track( 023 1:14 PM EDT) Riddhi Buchanan RD Note: Continue to walk stairs and walks when can. Will continue using stairs as it's colder. Look into finding weights free online or at [employer] stores. Could use water-filled milk jugs as weights-a full gallon jug would be 8 lbs. Will look into nearby rec center 04/16/22 NATHALIA documented as of this encounter Visit Diagnoses Not on filedocumented in this encounter Care Teams Panel Wirer Relationship Specialty Start Date End Date Lia Pearson APRN [address] [place] [address] PCP - General Geriatric Medicine 02/09/22 documented as of this encounter
--- OUTSIDE RECORDS SUMMARY | 2023-11-26 19:30 | XMS_ITS | Encounter Summary ---
Author Organization [facility] Address [facility] [place] [address] Care Team Providers Care Results Engineer Name Role Phone Lia Pearson APRN Primary Care Provider [phone] Encounter Details Date Type Department Care Team (Late st Contact Info) Description 12/16/2022 2:45 PM EDT TH Visit (TeleHealth) [place] [address] Riddhi Wilson, [facility] [address] Class 3 severe obesity with body mass index (BMI) greater than or equal to 70 in adult, unspecified obesity type, unspecified whether serious comorbidity present Social History Tobacco Use Types Packs/Day Years [...] Sign Reading Time Taken Comments Blood Pressure - - Pulse - - Temperature - - Respiratory Rate - - Oxygen Saturation - - Inhaled Oxygen Concentration - - Weight 187.1 kg (412 lb 6.4 oz) 12/16/2022 1:00 PM EDT Height - - Body Mass Index 77.92 11/13/2022 11:15 AM EDT documented in this encounter Patient Instructions * Patient Instructions* Riddhi Wilson RD - 12/16/2022 2:45 PM EDT It was great to chat with you, Zenia. Below are goals discussed today as well as in past visits. Please reach out with a [facility] message if you have any questions or concerns. Riddhi Pizarro Bariatric behaviors Eating Slowly and taking 20-30 minutes to [...] water or using a child's sippie cup Movement Continue to walk stairs and walks when can. Will continue using stairs as it's colder. Look into finding weights free online or at [employer] stores. Could use water-filled milk jugs as weights-a full gallon jug would be 8 lbs. Will look into nearby [facility] 04/16/22 NATHALIA Other (Enter personal goal) -Add peanut butter to oatmeal -Continue to add beans to meals as a source of protein and fiber -If can, buy fresh vegetables and fruit from [employer]-sent message with resources -Choose whole grain options if available -When having a snack, focus on protein Self-awareness, body cues Practice STOP and Urge Surfing. [facility] [employer] Lay Out Worker will send hand-outs. documented in this encounter Progress Notes * Riddhi Wilson RD - 12/16/2022 2:45 PM EDT Nutrition Intervention for Weight Management BSP visit with Zenia WorleyYARELI 1990 Weight Today: Wt Readings from Last 3 Encounters: 12/16/22 (!) 187.1 kg (412 lb 6.4 oz) 11/13/22 (!) 190.2 kg (419 lb 4.8 oz) 11/13/22 (!) 185.1 kg (408 lb) BMI Readings from Last 3 Encounters: 12/16/22 77.92 kg/m?? 11/13/22 79.23 kg/m?? 11/13/22 77.09 kg/m?? Pertinent Meds: Jardiance Interview: Zenia notes she is doing well today. She had been struggling with a weight plateau, andshe was getting a bit obsessed about weighing herself and not eating as much. She has a weight lossgoal to qualify for surgery and was 6 lbs away, so that was part of the issue. She took it upon herself to start walking more and focus on her eating behaviors. She is in a better place and has met the required weight loss goal. Info session is this Wednesday. Green light from previous psych session. Discovered she likes dragon fruit. Food Tracking: Using [employer] rebecca, tracking everything, water, exercise, macros. Stopped eating pork,found that the sodium and sat fat intake was too high for her. Typical Dietary Intake: B: at first wasn't eating B, someday's would skip, or having a bigger lunch. 2 boiled eggs, piece of toast. Packet instant oatmeal L: protein pasta-fresh tomatoes, green beans, asparagus, broccoli, D: pretty light-chicken breast w brown rice, and veg. S: bag of beef jerky, small snack cake if needed for low blood sugar. She has found when she eats abalanced meals, she doesn't need this. Typical Beverages: [] coffee / tea [x] water - (total: 70 oz or so [x] plain [] sugar-free additive [] diet soda or other [] regular soda [] Juice or other sugar-sweetened [] Milk [] Alcohol - (How much? Appetite/Hunger: [] Poor appetite r/t [x] Currently well-managed [] Not managed (see interview) Bariatric eating behaviors Checked boxes are currently being met (other notes below in bold): [x] Stop eating at comfortable full point (eating slowly to know, chewing thoroughly) [x] Regular meal pattern, avoid grazing, reasonable snack frequency [x] Plan protein at all meals and snacks, eat protein first [x] Decrease sources of concentrated (added) sugars or high-fat foods [x] Track foods in notebook with calories or by using an rebecca [x] Understand portions and total food consumed [x] Total water intake [x] eating and drinking by 30 minutes on either side [x] Sip rather than gulp [x] Eliminate diet or regular soda prior to surgery [x] Reduce coffee intake down to ~1 cup (caffeine) prior to surgery [x] Reduce alcohol, ideally avoid [x] No nicotine (STOP date, if applicable: Activity: [x] reviewed current goals [] updated goals Readiness for surgery summary: No further dietary support indicated; dietarily ready to proceed to surgery Barriers: none Nutrition Goals updated today: Goals Addressed This Visit's Progress Bariatric behaviors On track Eating Slowly and taking 20-30 minutes to [...] water or using a child's sippie cup Movement On track Continue to walk stairs and walks when can. Will continue using stairs as it's colder. Look into finding weights free online or at [employer] stores. Could use water-filled milk jugs as weights-a full gallon jug would be 8 lbs. Will look into nearby [facility] 04/16/22 NATHALIA Other (Enter personal goal) On track -Add peanut butter to oatmeal -Continue to add beans to meals as a source of protein and fiber -If can, buy fresh vegetables and fruit from [employer]-sent message with resources -Choose whole grain options if available -When having a snack, focus on protein Handouts provided today: Monitor/Evaluate: [x] Needs additional fuv scheduled with this racebook writer: No follow-ups on file. (OR) [] Currently scheduled for: [] 1st consecutive monthly nutrition visit [] 2nd consecutive monthly nutrition visit [] 3rd consecutive monthly nutrition visit (OR) [] Patient has met requirement of 3 consecutive monthly nutrition visits Above determined to the best ability of this racebook writer. Patient will contact bariatric surgery team for any official determination about scheduling and insurance requirements ( ) Thank you, Riddhi Wilson RD, LD 30 minutes were spent in visit today, including contact with patient, chart review, and documentation documented in this encounter Plan of Treatment Upcoming Encounters Date Type Department Care Team (Late st Contact Info) Description 12/30/2023 2:45 PM EDT TH Visit (TeleHealth) [place] [address] Michael Morgan, [facility] [place] [address] documented as of this encounter Goals Goal Patient Goal Type Associated Problems Recent Progress Patient-Stated? Author Other (Enter personal goal) Lifestyle On track( 023 1:14 PM EDT) Riddhi Buchanan RD Note: -Add peanut butter to oatmeal -Continue to add beans to meals as a source of protein and fiber -If can, buy fresh vegetables and fruit from [employer] market-sent message with resources -Choose whole grain [...] Note: Practice STOP and Urge Surfing. [facility] [employer] Lay Out Worker will send hand-outs. Movement Lifestyle On track( 023 1:14 PM EDT) Riddhi Buchanan RD Note: Continue to walk stairs and walks when can. Will continue using stairs as it's colder. Look into finding weights free online or at [employer] stores. Could use water-filled milk jugs as weights-a full gallon jug would be 8 lbs. Will look into nearby rec center 04/16/22 NATHALIA documented as of this encounter Visit Diagnoses Diagnosis Class 3 severe obesity with body mass index (BMI) greater than or equal to 70 in adult, unspecified obesity type, unspecified whether serious comorbidity present documented in this encounter Care Teams Results Engineer Relationship Specialty Start Date End Date Lia Pearson APRN [address] [place] [address] PCP - General Geriatric Medicine 02/09/22 documented as of this encounter
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
--- OUTSIDE RECORDS SUMMARY | 2023-11-26 19:30 | XMS_ITS | Encounter Summary ---
Author Organization [facility] [place] [address] Care Team Providers Care Blacksmith Helper Name Role Phone Lia Pearson APRN Primary Care Provider [phone] Encounter Details Date Type Department Care Team (Latest Contact Info) Description 11/24/2022 10:30 AM EDT TH Visit (TeleHealth) [place] [address] Raisa Vallejo, PhD [place] [address] Schizoaffective disorder, unspecified type Social History Tobacco [...] as of this encounter Progress Notes * Raisa Vallejo, PhD - 11/24/2022 10:30 AM EDT [facility] PSYCHOLOY FOLLOW UP NOTE N [facility] [address] Dept: [phone] Loc: [phone] 11/24/2022 10:38 AM Zenia Worley is a 32 y.o. female who was referred for evaluation and preparation for potential bariatric surgery.Zenia was previously evaluated and concerns were raised about bariatric surgery readiness. Zenia was seen for 30 minutes. Patient was alone, and was seen Telehealth. Zenia Worley gave permission for and was seen for today's appointment with a Telehealth visit. During this visit they were located at home in [place]. Zenia Worley is aware that for any urgent matter they can call [phone].. RECOMMENDATION BASED ON PSYCHOLOGICAL EVALUATION YELLOW - Based on the information gathered during this assessment, Zenia Worley would benefit fromadditional health behavior change before she is ready to proceed with surgery. Specifically, Karanould benefit from the following to assist with preparing for bariatric surgery: Continue engaging in health promoting behaviors The follow up plan is as follows: Will follow up with Zenia once I hear back from her mental health team re: readiness for bariatric surgery. SUMMARY The decision noted above is based on the following: Zenia has made significant weight loss attempts in the past, but without lasting success. Zeina experienced marked mental health problems in the past year. Zenia experienced marked mental health problems earlier in life. Zenia is not engaging in problematic eating behaviors. Zenia is knowledgeable about the surgery and related risks. Zenia's motivation for surgery is: good Zenia's social support is: good Zenia is aware of expected surgery weight loss with surgery. Zenia is aware of the habit changes that will need to occur and is actively engaged in changing those now. Zenia does not have a history of adherence/attendance issues. DIAGNOSIS Schizoaffective disorder PTSD The above assessment and plan was based on the following information obtained during the appointment. Please note section in blue indicates updated information from the previous evaluation: WEIGHT Initial Weight: 432lbs Weight at previous evaluation: 415 lbs Weight at previous evaluation: 427 lbs Weight at previous evaluation: 425 lbs Weight at previous evaluation: 426 lbs Current Weight as of 11/13/22: 419 lbs Weight changes since evaluation: has decreased 7 lbs. Progress towards weight loss goal is good MENTAL HEALTH UPDATE: 11/24/2022: Overall Zenia reported that she is doing well. Zenia reported that her current psych meds are: Abilify, prazosin, trazodone, thorazine (PRN, 1/wk or less), and doxepin. Went of a trip last month with a group which she was surprised she was able to do - proud that she effectively coped through that experience as it was so a great experience. Zenia reported that her sleep temporarily worsened rec ently which has improved with exercise. 07/21/22 On 06/15, started tapering down off of seroquel. Current psych meds are Geodon, Abilify, prazosin and trazodone. Has not had any new visual or auditory hallucinations. MENTAL HEALTH PROVIDER COMMUNICATION (IF NEEDED) 07/21/22 Received fax number for primary mental health team and will request recent notes. Called Zenia's prescriber,Shweta Mast, after the appointment to discuss dietary requirements with All. Shweta reported that if Zenia will not be able to meet caloric needs of medication than she will work with Zenia to transition off Geodon and increase the thorazine. Informed Shweta that we will want 4-5 months of stability post medication changes before more forward with surgery. Informed Shweta that I have reached out to the bariatric dieticans and will follow up when I know more. POST SURGERY EATING HABIT CHANGES AND READINESS Awareness of the following eating habit changes and current extent of practice (50%=half meals/week; 100%= every meal/week) is: Eating slowly, taking 20-30 min to complete a meal: Aware of the need and practicing about 98% of the time and has been practicing at this rate for about 9 month(s). eating and drinking by 30 minutes: Aware of the need and practicing about 100% of the time and has been practicing at this rate for about 9 month(s). Eating smaller quantities: Aware of the need and practicing about 98% of the time and has been practicing at this rate for about 9 month(s). Protein at each meal (should be eating it first): Aware of the need and practicing about 100% of the time and has been practicing at this rate for about 1 year(s). Sipping 48-64oz of water slowly in a day: Aware of the need and practicing about 100% of the time and has been practicing at this rate for about many year(s). Following a consistent meal pattern: Aware of the need and practicing about 99% of the time and has been practicing at this rate for about 1 year(s). Regular exercise: Aware of the need of regular exercise and walking 45-60min. Current implementation of habit changes: good The assessment and plan for Zenia Worley are detailed at the beginning of this report. documented in this encounter Plan of Treatment Upcoming Encounters Date Type Department Care Team (Late st Contact Info) Description 12/30/2023 2:45 PM EDT TH Visit (TeleHealth) [place] [address] Michael Morgan, [facility] [place] [address] documented as of this encounter Goals Goal Patient Goal Type Associated Problems Recent Progress Patient-Stated? Author Other (Enter personal goal) Lifestyle On track( 023 1:14 PM EDT) Riddhi Buchanan RD Note: -Add peanut butter to oatmeal -Continue to add beans to meals as a source of protein and fiber -If can, buy fresh vegetables and fruit from [employer]-sent message with resources -Choose whole grain [...] Note: Practice STOP and Urge Surfing. Health Tuna Purse Seiner will send hand-outs. Movement Lifestyle On track( 023 1:14 PM EDT) Riddhi Buchanan RD Note: Continue to walk stairs and walks when can. Will continue using stairs as it's colder. Look into finding weights free online or at [employer] stores. Could use water-filled milk jugs as weights-a full gallon jug would be 8 lbs. Will look into nearby rec center 04/16/22 documented as of this encounter Visit Diagnoses Diagnosis Schizoaffective disorder, unspecified type documented in this encounter Care Teams Blacksmith Helper Relationship Specialty Start Date End Date Lia Pearson APRN [address] [place] [address] PCP - General Geriatric Medicine 02/09/22 documented as of this encounter
--- OUTSIDE RECORDS SUMMARY | 2023-11-26 19:30 | XMS_ITS | Encounter Summary ---
[place] [address] Care Team Providers Care Regroover Name Role Phone Lia Pearson APRN Primary Care Provider [phone] Reason for Visit * Reason Onset Date Comments Questions 11/27/2022 Encounter Details Date Type Department Care Team (Late st Contact Info) Description 11/27/2022 Telephone [place] [id number] Joselin Guerrero Questions Social History Tobacco Use Types Packs/Day Years [...] encounter Miscellaneous Notes * Telephone Encounter - Joselin Guerrero - 11/27/2022 9:46 AM EDT Message: Zenia called to f/u if [facility] had reached out to her psychologist regarding BS, to see if the provider still agreed for her to proceed with surgery. Zenia states she had provided the psychologist information. Ask caller their first and last name and relationship to the patient: Zenia Worley Best time to call back: any Ok to leave a message: y Ok to send - message: y Offered Appointment: n documented in this encounter Plan of Treatment Upcoming Encounters Date Type Department Care Team (Late st Contact Info) Description 12/30/2023 2:45 PM EDT TH Visit (TeleHealth) Interventional Radiology at [facility] [place] [address] Michael Morgan, [facility] [place] [address] documented as of this encounter Goals Goal Patient Goal Type Associated Problems Recent Progress Patient-Stated? Author Other (Enter personal goal) Lifestyle On track( 023 1:14 PM EDT) Riddhi Buchanan RD Note: -Add peanut butter to oatmeal -Continue to add beans to meals as a source of protein and fiber -If can, buy fresh vegetables and fruit from [employer] market-sent message with resources -Choose whole grain [...] Note: Practice STOP and Urge Surfing. Health Oversize Load Pilot Escort will send hand-outs. Movement Lifestyle On track( 023 1:14 PM EDT) Riddhi Buchanan RD Note: Continue to walk stairs and walks when can. Will continue using stairs as it's colder. Look into finding weights free online or at [employer] stores. Could use water-filled milk jugs as weights-a full gallon jug would be 8 lbs. Will look into nearby rec center 04/16/22 NATHALIA documented as of this encounter Visit Diagnoses Not on filedocumented in this encounter Care Teams Regroover Relationship Specialty Start Date End Date Lia Pearson APRN [address] [place] [address] PCP - General Geriatric Medicine 02/09/22 documented as of this encounter
--- OUTSIDE RECORDS SUMMARY | 2023-11-26 19:30 | XMS_ITS | Encounter Summary ---
Author Organization [facility] [place] [address] Care Team Providers Care Property Custodian Name Role Phone Lia Pearson APRN Primary Care Provider [phone] [phone] Encounter Details Date Type Department Care Team (Latest Contact Info) Description 02/11/2023 9:05 AM EDT Laboratory Appointment Lab [address] [place] [id number] Excessive bleeding in premenopausal period Social History Tobacco Use Types Packs/Day Years [...] EDT TH Visit (TeleHealth) [place] [address] Michael Morgan, [facility] [place] [address] documented as of this encounter Goals Goal [...] Note: Practice STOP and Urge Surfing. Health Bucket Pusher will send hand-outs. Movement Lifestyle On track( 023 1:14 PM EDT) Riddhi Buchanan, RD Note: Continue to walk stairs and walks when can. Will continue using stairs as it's colder. Look into finding weights free online or at [employer] stores. Could use water-filled milk jugs as weights-a full gallon jug would be 8 lbs. Will look into nearby rec center 04/16/22 NATHALIA documented as of this encounter Procedures Procedure Name Priority Date/Time Associated Diagnosis Comments HC FACTOR VIII ASSAY CLOTTING Routine 02/11/2023 9:35 AM EDT Excessive bleeding in premenopausal period HEMOGRAM Routine 02/11/2023 9:35 AM EDT Excessive bleeding in premenopausal period DIFFERENTIAL, AUTOMATED Routine 02/11/2023 9:35 AM EDT Excessive bleeding in premenopausal period VON WILLEBRAND FACTOR ANTIGEN Routine 02/11/2023 9:35 AM EDT Excessive bleeding in premenopausal period VON WILLEBRAND FACTOR ACTIVITY Routine 02/11/2023 9:35 AM EDT Excessive bleeding in premenopausal period APTT Routine 02/11/2023 9:35 AM EDT Excessive bleeding in premenopausal period THROMBIN TIME Routine 02/11/2023 9:35 AM EDT Excessive bleeding in premenopausal period PROTHROMBIN TIME Routine 02/11/2023 9:35 AM EDT Excessive bleeding in premenopausal period PLATELET FUNCTION TEST ([facility]) Routine 02/11/2023 9:35 AM EDT Excessive bleeding in premenopausal period FIBRINOGEN Routine 02/11/2023 9:35 AM EDT Excessive bleeding in premenopausal period FACTOR 8 ASSAY Routine 02/11/2023 9:35 AM EDT Excessive bleeding in premenopausal period BLEEDING SCREEN REPORT Routine 02/11/2023 9:03 AM EDT documented in this encounter Results * Differential, Automated (02/11/2023 9:35 AM EDT) Neutrophils % 58.4 % [facility] Neutr Abs (ANC) 3.94 1.70 - 6.10 x10(3)/[facility] Lymphocytes % 29.7 % [facility] Lymphocytes Abs 2.0 0.9 - 3.2 x10(3)/[facility] Monocytes % 7.9 % [facility] Monocyte Abs 0.5 0.3 - 0.9 x10(3)/[facility] Eosinophils % 2.8 % [facility] Eosinophils Abs 0.2 0.0 - 0.4 x10(3)/[facility] Basophils % 0.6 % [facility] Basophils Abs 0.0 0.0 - 0.1 x10(3)/[facility] Immature Gran % 0.60 % [facility] Comment: Immature granulocytes(IG's)percentage and absolute count will include metamyelocytes, myelocytes, and promyelocytes. Blood smears from CBCs yielding IG's will be scanned manually for concordance. If this scan disagrees with the automated IG or if promyelocytes are noted, a manual differential will be performed. Estefany Gran Abs 0.04 0.00 - 0.04 x10(3)/[facility] Blood 02/11/2023 9:35 AM EDT 02/11/2023 9:43 AM EDT Narrative Resulting Agency Comment Spec In Lab Claudine Yang MD HEMATOLOGY ORDERABLE S [facility] [place] [address] * (ABNORMAL) Hemogram (02/11/2023 9:35 AM EDT) WBC 6.7 4.0 - 9.5 x10(3)/[facility] RBC 5.30(H) 4.00 - 5.21 x10(6)/[facility] Hemoglobin 14.0 11.7 - 15.5 g/dL [facility] Hematocrit 42.9 35.7 - 45.8 % [facility] MCV 80.9(L) 82.6 - 94.4 fL [facility] MCH 26.4(L) 27.1 - 32.0 pg [facility] MCHC 32.6 31.7 - 35.0 g/dL [facility] Platelets 349 145 - 357 x10(3)/[facility] RDWSD 49.1(H) 37.0 - 46.0 fL [facility] RDWCV 16.7(H) 11.5 - 14.1 % [facility] MPV 11.5 7.6 - 12.9 fL [facility] nRBC % Auto 0.0 % [facility] nRBC Abs Auto 0.000 0.000 - 0.000 x10(3)/[facility] Blood 02/11/2023 9:35 AM EDT 02/11/2023 9:43 AM EDT Narrative Resulting Agency Comment Spec In Lab Claudine Yang MD HEMATOLOGY ORDERABLE S [facility] [place] [address] * (ABNORMAL) Platelet function analysis ([facility]) (02/11/2023 9:35 AM EDT) Col/Epi 178(H) <=160 sec [facility] Comment: The PFA-100 test result is dependent on platelet function, plasma von Willebrand factor level, platelet number and the hematocrit. The PFA-100 test is initially performed with the Col/Epi cartridge. A normal Col/Epi closure time (<=160 seconds) excludes the presence of a significant platelet function defect and the Col/ADP test is not performed. If the Col/Epi closure time is prolonged (>160 seconds), the Col/ADP test is automatically performed. If the Col/ADP result is normal (<=120 seconds), then drug-induced platelet dysfunction is most likely (e.g., due to aspirin, NSAIDs). Prolongation of both test results (Col/Epi >160 seconds, Col/ADP >120 seconds) may indicate the presence of a hereditary or acquired qualitative platelet disorder, though assisted aspirin treatment may sometimes cause a modestly prolonged Col/ADP closure time. Additionally, anemia and thrombocytopenia will result in prolonged closure times for both tests. Once aspirin use, anemia and thrombocytopenia have been excluded, further evaluation to exclude von Willebrand disease and inherited/acquired platelet dysfunction (e.g., due to uremia, platelet storage pool disorders, release defects, Ronnie-Soulier disease, and Glanzmann thromboasthenia) should be considered. Col/ADP 82 <=120 sec [facility] Blood 02/11/2023 9:35 AM EDT 02/11/2023 9:58 AM EDT Narrative Resulting Agency Comment Spec In Lab Claudine Yang MD HEMATOLOGY ORDERABLE S Performing Organization Address [facility] Co de Phone Number [facility] [place] [address] * Von Willebrand Factor Antigen (02/11/2023 9:35 AM EDT) vWF Antigen 115 % [facility] Comment: ABO blood group has a significant influence on vWF antigen levels in normal individuals. Type O has a range of 42 ? 141%. Type A, B, and AB have a range of 66 - 176%. The presence of Rheumatoid Factor may produce an overestimation of the test results. Blood 02/11/2023 9:35 AM EDT 02/11/2023 9:43 AM EDT Narrative Resulting Agency Comment Spec In Lab Claudine Yang MD HEMATOLOGY ORDERABLE S Performing Organization Address [facility] Co de Phone Number [facility] [place] [address] * Von Willebrand Factor Activity (02/11/2023 9:35 AM EDT) vWF Activity 84 % activity [facility] Comment: ABO blood group has a significant influence on vWF activity levels in normal individuals. Type O has a range of 40 ? 126%. Type A, B, and AB have a range of 49 - 163%. Blood 02/11/2023 9:35 AM EDT 02/11/2023 9:43 AM EDT Narrative Resulting Agency Comment Spec In Lab Claudine Yang MD HEMATOLOGY ORDERABLE S Performing Organization Address City/[facility]/ZIP Co de Phone Number [facility] [place] [address] * Factor 8 assay (02/11/2023 9:35 AM EDT) [facility] Factor 8 Assay 223 >=50 % [facility] Blood 02/11/2023 9:35 AM EDT 02/11/2023 9:43 AM EDT Narrative Resulting Agency Comment Spec In Lab Claudine Yang MD HEMATOLOGY ORDERABLE S Performing Organization Address [facility] Co de Phone Number [facility] [place] [address] * Fibrinogen (02/11/2023 9:35 AM EDT) [facility] Fibrinogen 365 200 - 393 mg/dL [facility] Comment: A fibrinogen level >100 mg/dL is adequate for hemostasis in most patients without underlying bleeding disorders. Blood 02/11/2023 9:35 AM EDT 02/11/2023 9:43 AM EDT Narrative Resulting Agency Comment Spec In Lab Claudine Yang MD HEMATOLOGY ORDERABLE S Performing Organization Address [facility] Co de Phone Number [facility] [place] [address] * Thrombin time (02/11/2023 9:35 AM EDT) [facility] Thrombin Time 16 10 - 17 sec [facility] Comment: A prolongation in the thrombin time (>20 seconds) may be indicative of hypofibrinogenemia or dysfibrinogenemia. The thrombin time will be prolonged, often markedly so, by the presence of heparin or direct thrombin inhibitors (argatroban, bivalirudin, dabigatran) in the specimen. Blood 02/11/2023 9:35 AM EDT 02/11/2023 9:43 AM EDT Narrative Resulting Agency Comment Spec In Lab Claudine Yang MD HEMATOLOGY ORDERABLE S [facility] [place] [address] * APTT (02/11/2023 9:35 AM EDT) PTT 28 25 - 37 sec [facility] Comment: The PTT is NOT appropriate for heparin monitoring. Use the Anti-Xa level for heparin monitoring (HEP UFH) or LMWH monitoring (HEP LMW). A PTT less than 37 seconds generally indicates adequate hemostasis. Blood 02/11/2023 9:35 AM EDT 02/11/2023 9:43 AM EDT Narrative Resulting Agency Comment Spec In Lab Claudine Yang MD HEMATOLOGY ORDERABLE S Performing Organization Address [facility]/ZIP Co de Phone Number [facility] [place] [address] * Prothrombin Time (02/11/2023 9:35 AM EDT) PT 10.1 9.4 - 12.5 sec [facility] INR 0.9 [facility] Comment: An INR <2.0 indicates adequate procoagulant activity for hemostasis in most patients without underlying bleeding disorders, though the INR may not adequately reflect hemostatic capacity in patients with liver disease and synthetic impairment. The recommended target INR range for therapeutic anticoagulation is 2.0 ? 3.0 for most applications, though lower and higher ranges may be appropriate depending on clinical circumstances. Blood 02/11/2023 9:35 AM EDT 02/11/2023 9:43 AM EDT Narrative Resulting Agency Comment Spec In Lab Claudine Yang MD HEMATOLOGY ORDERABLE S [facility] [place] [address] * Bleeding Screen Report (02/11/2023 9:03 AM EDT) Bleeding Screen Report [id number] ? Location: 3L The signing pathologist has (i) examined the relevant preparation(s) for the specimen(s) and (ii) rendered or confirmed the diagnosis(es). . ?Bleeding Screen DIAGNOSIS 1. No evidence of significant coagulation factor deficiency or von Willebrand disease. The patient's apparent history of Von Willebrand disease per chart review is noted. All VWF antigen and activity assays are within normal limits. 2. Prolonged PFA-100 Col/EPI closure time with normal Col/ADP closure time, most consistent with medication/supple ment effect. Consider also vitamin deficiency, collagen vascular, medical (kidney, liver, thyroid) or anatomic etiologies. If bleeding persists and remains unexplained, consideration for platelet function studies may be an appropriate next step. Electronically signed by: ?Samuel HERNANDEZ, Tasha Perez Verified: ??02/17/2023 15:51 ??Pathologist Performed at: ??-[facility] Dept. of Pathology, [place] [address] Animal Nursery Worker: Katherine Webb MD, [facility], ??CLIA Certificate: [id number] ADDITIONAL STUDIES See Epic for laboratory values. Platelet morphology: Unremarkable. Emotional or physiologic stress may elevate VWF levels into the normal range. If von Willebrand factor antigen and/or activity levels are </=55% and von Willebrand disease is strongly suspected clinically, repeat testing may be appropriate. CLINICAL INFORMATION 32F w/history of abnormal uterine bleeding with hemorrhage requiring 5x PRBC, being evaluated for prospective bariatric surgery (BMI 65.66), history of HTN, HLD, DM2, Von Willebrand disease (per eDH). Questionable family history of bleeding disorder in sister. Not on aspirin, NSAIDS, antiplatelet drugs, or anticoagulants. [facility] 02/11/2023 9:03 AM EDT Claudine Yang MD PATHOLOGY/CYTOLOGY O RDERABLES [facility] [place] [address] documented in this encounter Visit Diagnoses Diagnosis Excessive bleeding in premenopausal period Premenopausal menorrhagia documented in this encounter Care Teams Property Custodian Relationship Specialty Start Date End Date Lia Pearson APRN [address] [place] [address] PCP - General Geriatric Medicine 02/09/22 documented as of this encounter
--- OUTSIDE RECORDS SUMMARY | 2023-11-26 19:30 | XMS_ITS | Encounter Summary ---
Author Organization [facility] [place] [address] Care Team Providers Care Motel Keeper Name Role Phone Lia Pearson APRN Primary Care Provider [phone] [phone] Encounter Details Date Type Department Care Team (Latest Contact Info) Description 02/12/2023 Travel Social History Tobacco Use Types Packs/Day [...] EDT TH Visit (TeleHealth) [place] [address] Michael Morgan, [facility] [place] [address] documented as of this encounter Goals Goal [...] Note: Practice STOP and Urge Surfing. Health Mat Sewer will send hand-outs. Movement Lifestyle On track( 023 1:14 PM EDT) Riddhi Buchanan RD Note: Continue to walk stairs and walks when can. Will continue using stairs as it's colder. Look into finding weights free online or at [employer] stores. Could use water-filled milk jugs as weights-a full gallon jug would be 8 lbs. Will look into nearby rec center 04/16/22 NATHALIA documented as of this encounter Visit Diagnoses Not on filedocumented in this encounter Care Teams Motel Keeper Relationship Specialty Start Date End Date Lia Pearson APRN [address] [place] [address] PCP - General Geriatric Medicine 02/09/22 documented as of this encounter
--- OUTSIDE RECORDS SUMMARY | 2023-11-26 19:30 | XMS_ITS | Encounter Summary ---
Author Organization [facility] [place] [address] Care Team Providers Care Battery Vent Plug Inserter Name Role Phone Lia Pearson APRN Primary Care Provider [phone] [phone] Encounter Details Date Type Department Care Team (Latest Contact Info) Description 11/13/2022 Travel Social History Tobacco Use Types Packs/Day [...] EDT TH Visit (TeleHealth) [place] [address] Michael Morgan, [facility] [place] [address] documented as of this encounter Goals Goal [...] Note: Practice STOP and Urge Surfing. Health Reliability Technologist will send hand-outs. Movement Lifestyle On track( 023 1:14 PM EDT) Riddhi Buchanan RD Note: Continue to walk stairs and walks when can. Will continue using stairs as it's colder. Look into finding weights free online or at [employer] stores. Could use water-filled milk jugs as weights-a full gallon jug would be 8 lbs. Will look into nearby rec center 04/16/22 NATHALIA documented as of this encounter Visit Diagnoses Not on filedocumented in this encounter Care Teams Battery Vent Plug Inserter Relationship Specialty Start Date End Date Lia Pearson APRN [address] [place] [address] PCP - General Geriatric Medicine 02/09/22 documented as of this encounter
--- OUTSIDE RECORDS SUMMARY | 2023-11-26 19:30 | XMS_ITS | Encounter Summary ---
Author Organization [place] [address] Care Team Providers Care Pick Up Name Role Phone Lia Pearson APRN Primary Care Provider [phone] Reason for Visit * Consultation (Routine) - Closed Specialty Diagnoses / Procedures Referred By Della kern Referred To Contact Interventional Radiology Diagnoses Vaginal bleeding Marco Patel MD [facility] OBSTETRICS [place] [address] [facility] Inter[facility] Rad [address] [place] [address] Referral ID Status Reason Start Date Expiration Date V isits Requested Visits Authorized [id number] Closed Specialty Service Requested 10/15/2022 10/15/2023 1 1 Encounter Details Date Type Department Care Team (Late st Contact Info) Description 11/12/2022 2:00 PM EDT TH Visit (TeleHealth) [place] [address] Michael Morgan DO [facility] [place] [address] Vaginal bleeding Social History Tobacco Use Types [...] Progress Notes * Michael Morgan, DO - 11/12/2022 2:00 PM EDT INTERVENTIONAL RADIOLOGY Brief Progress Note Admitted (Not on file) Procedure(s): Uterine Artery Embolization (Gelfoam Embolization) on 10/13/22 Interval Events: Patient presented to the hospital in September 2022 with vaginal / uterine hemorrhage which ultimately required uterine artery embolization. From the Uterine Artery Embolization report on 10/13/22: Widely patent left radial artery with aberrant course, likely with high origin. Normal appearance of the bilateral uterine arteries without active extravasation, pseudoaneurysm, or early draining vein. Prophylactic Gelfoam embolization to 5 beats of stasis. Patient reports today that she has had no further hemorrhage since this procedure. She denies pelvic pain, fever, chills, urinary frequency, back pain, constipation, and leg / thigh pain. The patient and I discussed that gelfoam is a temporary agent that should be absorbed / no longer present within the uterine arteries at this point. The benefit of using this temporary agent is that there is a cessation of blood flow to allow healing but it should have no effect on fertility. The down-side is that it is temporary and the patient could develop recurrent hemorrhage. If the patient were to develop recurrent hemorrhage, then a permanent embolization agent (Embozene PVA particles), would be indicated, as detailed below: I went over uterine artery embolization with Ms. Worley. I first pointed out to her that uterine artery embolization is not universally successful. I quoted her a success rate likely in the 80-90???sfor bleeding related symptoms and in the 60-80???s for bulk related symptoms. I also quoted her a rate of premature menopause of between 5-10% post embolization and discussed the risk of non target embolization. We went over the potential for infection post procedure. I explained post embolization syndrome, which can mimic infection, but is expected in the days immediately post procedure. I noted that we cover patients during that time with antibiotics. I pointed out the potential for passage of sloughed fibroid material and the possibility of material being trapped within the uterine cavity and requiring a D&C for removal. We also discussed that no large studies have been done on fertility following uterine artery embolization; however, it is certain there is a significant risk of infertility. There are case reports ofpatients becoming following uterine artery embolization. The patient reported she has no interest in becoming . We did not discuss; however, I do not routinely obtain imaging post procedure unless it would help her make a decision. If the embolization were to be effective then additional imaging would contribute nothing. If the embolization were not effective then she would need to decide on surgery vs repeat embolization. In that situation I would obtain an enhanced MR to see if there were fibroids that might be targets for repeat embolization. I described the procedure, the typical overnight admission and the likely discharge the following day. I did note that we have had patients who have been admitted for a longer period of time and I advised her that she would probably want to plan for at least a week off from work. At the conclusion of our discussion, Ms Worley felt that her questions had been answered. Assessment: 32 y.o. female with history of significant vaginal and uterine hemorrhage which as resolved following bilateral uterine artery embolization with gelfoam. Plan: As the patient has no recurrent symptoms following gelfoam embolization, would defer any further interventions for the time being. The patient was in agreement with this plan. I gave the patient the options of following up with me on an as needed basis (if / when she develops hemorrhage to call for uterine artery embolization) or to have a scheduled telephone follow up with me. The patient would prefer scheduled phone calls with me as a check-in progress rather than an as needed follow up. She will be scheduled for a phone call with me in ~3-months. Should the patient develop symptoms in the interm, she has my phone number and will reach out to me. Over 20 minutes of this 30 minute visit were spent in counseling and coordination of care. Michael Morgan DO, MPH Staff Physician - Interventional Radiology Pager [phone] documented in this encounter Plan of Treatment Upcoming Encounters Date Type Department Care Team (Late st Contact Info) Description 12/30/2023 2:45 PM EDT TH Visit (TeleHealth) [place] [address] Michael Morgan DO [facility] [place] [address] Scheduled Referrals Name Type Priority Associated Diagnoses Order Schedule Referral to Interventional Radiology (Primary Care Use Only) Outpatient Referral Routine Vaginal bleeding Ordered: 10/15/2022 documented as of this encounter Goals Goal Patient Goal Type Associated Problems Recent Progress Patient-Stated? Author Other (Enter personal goal) Lifestyle On track( 1:14 PM EDT) Riddhi Buchanan RD Note: -Add peanut butter to oatmeal -Continue to add beans to meals as a source of protein and fiber -If can, buy fresh vegetables and fruit from [employer]-sent message with resources -Choose whole grain options [...] Practice STOP and Urge Surfing. Health Assistant Dean will send hand-outs. Movement Lifestyle On track( 1:14 PM EDT) Riddhi Buchanan RD Note: Continue to walk stairs and walks when can. Will continue using stairs as it's colder. Look into finding weights free online or at [employer] stores. Could use water-filled milk jugs as weights-a full gallon jug would be 8 lbs. Will look into nearby rec center 04/16/22 NATHALIA documented as of this encounter Visit Diagnoses Diagnosis Vaginal bleeding Other specified noninflammatory disorder of vagina documented in this encounter Care Teams Pick Up Relationship Specialty Start Date End Date Lia Pearson APRN [address] [place] [address] PCP - General Geriatric Medicine 02/09/22 documented as of this encounter
--- OUTSIDE RECORDS SUMMARY | 2023-11-26 19:30 | XMS_ITS | Encounter Summary ---
Author Organization [facility] Address [facility] [place] [address] Care Team Providers Care Technical Services Specialist Name Role Phone Lia Pearson APRN Primary Care Provider [phone] Encounter Details Date Type Department Care Team (Late st Contact Info) Description 01/28/2023 E-Consult [place] [address] Claudine Yang MD [facility] DR HEMATOLOGY/[place] [address] Pre-op evaluation; Bleeding Social History Tobacco Use Types Packs/Day Years Used Date Smoking Tobacco: Former Smokeless Tobacco: Never Alcohol Use Standard Drinks/Week Comments Not Currently 0 (1 standard drink = 0.6 oz pur e alcohol) Sex and Gender Information Value Date Recorded Sex Assigned at Not on file Gender Identity Not on file Sexual Orientation Not on file documented as of this encounter Progress Notes * Claudine Yang MD - 01/28/2023 9:59 PM EDT COAGULATION E-CONSULT I'm asked to offer an opinion on bleeding work up. I have personally reviewed the relevant clinical, laboratory and radiological data available from the referring physician and located in eDH. My clinical question: Patient was seen by hematology in 2021 for evaluation for bleeding but never completed labs. She since had abnormal uterine bleeding with hemorrhage which required 5 U PRBC. Sheis working toward bariatric surgery. We are seeking guidance on whether additional bleeding disorder work up is indicated and on an appropriate anticoagulation plan for her post-surgery (based on BMIwe would plan to start Lovenox at the time of surgery and send her home on BID Lovenox post op). She is an established patient of [facility]. I have replaced the work up bleeding diathesis screen inthe system. I will let my front office secretary let her know to get the lab drawn and I will schedule a tele follow-up to summarize the plan after lab evaluation. Thank you for this consultation. Please don't hesitate to contact me if there are additional questions. Claudine Yang MD documented in this encounter Plan of Treatment Upcoming Encounters Date Type Department Care Team (Late st Contact Info) Description 12/30/2023 2:45 PM EDT TH Visit (TeleHealth) [place] [address] Michael Morgan, [facility] [place] [address] documented as of this encounter Goals Goal Patient Goal Type Associated Problems Recent Progress Patient-Stated? Author Other (Enter personal goal) Lifestyle On track( 023 1:14 PM EDT) Riddhi Buchanna RD Note: -Add peanut butter to oatmeal [...] Note: Practice STOP and Urge Surfing. Health Deskidding Machine Operator will send hand-outs. Movement Lifestyle On track( 023 1:14 PM EDT) No Riddhi Wilson RD Note: Continue to walk stairs and walks when can. Will continue using stairs as it's colder. Look into finding weights free online or at [employer] stores. Could use water-filled milk jugs as weights-a full gallon jug would be 8 lbs. Will look into nearby rec center 04/16/22 documented as of this encounter Visit Diagnoses Diagnosis Pre-op evaluation Preoperative examination, unspecified Bleeding Hemorrhage, unspecified documented in this encounter Care Teams Technical Services Specialist Relationship Specialty Start Date End Date Lia Pearson APRN [address] [place] [address] PCP - General Geriatric Medicine 02/09/22 documented as of this encounter
--- OUTSIDE RECORDS SUMMARY | 2023-11-26 19:30 | XMS_ITS | Encounter Summary ---
Author Organization [facility] [place] [address] Care Team Providers Care Wall Washer Name Role Phone Lia Pearson APRN Primary Care Provider [phone] Encounter Details Date Type Department Care Team (Latest Contact Info) Description 03/23/2023 Travel Social History Tobacco Use Types Packs/Day [...] EDT TH Visit (TeleHealth) [place] [address] Michael Morgan, [facility] [place] [address] documented as of this encounter Goals Goal [...] Note: Practice STOP and Urge Surfing. Health Broomcorn Seeder will send hand-outs. Movement Lifestyle On track( 023 1:14 PM EDT) Riddhi Buchanan RD Note: Continue to walk stairs and walks when can. Will continue using stairs as it's colder. Look into finding weights free online or at [employer] stores. Could use water-filled milk jugs as weights-a full gallon jug would be 8 lbs. Will look into nearby rec center 04/16/22 NATHALIA documented as of this encounter Visit Diagnoses Not on filedocumented in this encounter Care Teams Wall Washer Relationship Specialty Start Date End Date Lia Pearson APRN [address] [place] [address] PCP - General Geriatric Medicine 02/09/22 documented as of this encounter
--- OUTSIDE RECORDS SUMMARY | 2023-11-26 19:30 | XMS_ITS | Encounter Summary ---
Author Organization [facility] [place] [address] Care Team Providers Care Reduction Plant Supervisor Name Role Phone Lia Pearson APRN Primary Care Provider [phone] Encounter Details Date Type Department Care Team (Latest Contact Info) Description 02/10/2023 Travel Social History Tobacco Use Types Packs/Day [...] EDT TH Visit (TeleHealth) [place] [address] Michael Morgan, [facility] [place] [address] documented as of this encounter Goals Goal [...] Note: Practice STOP and Urge Surfing. Health Incident Analyst will send hand-outs. Movement Lifestyle On track( 023 1:14 PM EDT) Riddhi Buchanan RD Note: Continue to walk stairs and walks when can. Will continue using stairs as it's colder. Look into finding weights free online or at [employer] stores. Could use water-filled milk jugs as weights-a full gallon jug would be 8 lbs. Will look into nearby rec center 04/16/22 NATHALIA documented as of this encounter Visit Diagnoses Not on filedocumented in this encounter Care Teams Reduction Plant Supervisor Relationship Specialty Start Date End Date Lia Pearson APRN [address] [place] [address] PCP - General Geriatric Medicine 02/09/22 documented as of this encounter
--- OUTSIDE RECORDS SUMMARY | 2023-11-26 19:30 | XMS_ITS | Encounter Summary ---
Author Organization [facility] Address [facility] [place] [address] Care Team Providers Care Assistant Inventory Manager Name Role Phone Lia Pearson APRN Primary Care Provider [phone] Encounter Details Date Type Department Care Team (Late st Contact Info) Description 11/13/2022 9:00 AM EDT Office Visit Obstetrics [place] [address] Berenice Ahumada MD [facility] DR OBSTETRICS [place] [address] Abnormal uterine bleeding (AUB) (Primary Dx) Social History Tobacco Use Types [...] Sign Reading Time Taken Comments Blood Pressure 129/82 11/13/2022 9:17 AM EDT Pulse 115 11/13/2022 9:17 AM EDT Temperature 35.4 ??C (95.7 ??F) 11/13/2022 9:17 AM ED T Respiratory Rate 16 11/13/2022 9:17 AM EDT Oxygen Saturation 100% 11/13/2022 9:17 AM EDT Inhaled Oxygen Concentration - - Weight 185.1 kg (408 lb) 11/13/2022 9:17 AM EDT Height 154.9 cm (5' 1) 11/13/2022 9:17 AM EDT Body Mass Index 77.09 11/13/2022 9:17 AM EDT documented in this encounter Progress Notes * Berenice Ahumada MD - 11/13/2022 9:00 AM EDT PHOTOGRAPHY AND PRINTS CURATOR Follow-up Visit Reason for Visit: Zenia is a 32 y.o. pre menopausal female with a history of obesity (BMI 77), hypertension, DM type 2, RICHMOND and PTSD who presents for follow-up after hospitalization for abnormal uterine bleeding. HPI: She was admitted to from 10/13/22 to 10/15/22 with abnormal uterine bleeding requiring transfusion of 5 units of pRBC's, IR uterine artery embolization and IV premarin. She was discharged home with aygestin 10mg TID and reports no bleeding at all. Doing well with the pills and does not mind keepingtaking them. Met with IR yesterday - he is going to check in with her every few months. Has a follow-up scheduled in January again. She has a history of a hysteroscopy, D&C and progesterone IUD placement in February, however theIUD was not seen in the IR imaging on the pelvis and likely was expelled at some point. She is in the process of being evaluated for bariatric surgery. Hopefully will get surgery in the next few months. 11/11/2022 6:42 PM Tipple Supervisor Screener Little interest or pleasure Not at all Down, depressed, hopeless Not at all Nervous, anxious Several days Unable to stop worrying Not at all Patient Active Problem List Diagnosis Date Noted Vaginal bleeding 10/13/2022 Class 3 severe obesity with body mass index (BMI) of 60.0 to 69.9 in adult 02/20/2022 Vitamin D deficiency 02/18/2022 Insomnia 12/19/2021 Essential hypertension, benign 09/26/2021 Long-term insulin use 09/26/2021 alf 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 09/26/2021 Mixed hyperlipidemia 02/26/2021 RICHMOND (obstructive sleep apnea) 02/26/2021 Other specified hypothyroidism 02/26/2021 PTSD (post-traumatic stress disorder) 02/26/2021 Schizoaffective disorder 02/26/2021 Type 2 diabetes mellitus with hyperglycemia, with long-term current use of insulin 02/26/2021 Past Medical History: Diagnosis Date Anemia [...] ANESTHESIA performed by Sabrina Swain MD at [facility] MAIN OR IR ARTERIAL INTERVENTION 10/13/2022 IR Arterial Intervention 10/13/2022 Pradip Avila MD [facility] INTERVENTIONL RAD PRG ECHOGRAPHY TRANSVAGINAL NON-OB Midline 03/03/2022 ULTRASOUND, TRANSVAGINAL (WRVU 0.69) performed by Sabrina Swain MD at [facility] MAIN OR PRO HYSTEROSCOPY, W/ENDO BX N/A 03/03/2022 HYSTEROSCOPY, SURG W/ENDOMETRIAL SAMPLING, POLYPECTOMY (WRVU 4.74) performed by Sabrina Swain MD [facility] MAIN OR PRO INSERT INTRAUTERINE DEVICE N/A 03/03/2022 INSERTION OF IUD, VAGINAL APPROACH (WRVU 1.01) performed by Sabrina Swain MD at [facility] MAIN OR PRO PELVIC EXAMINATION W ANESTH N/A 03/03/2022 PELVIC EXAM UNDER ANESTHESIA (WRVU 1.75) performed by Sabrina Swain MD at [facility] MAIN OR Family History Problem Relation Age of Onset Uterine Cancer Neg Hx Ovarian Cancer Neg Hx Breast Cancer Neg Hx Social History Occupational History Not on file Tobacco Use Smoking status: Former Smokeless tobacco: Never Vaping Use Vaping Use: Former Substances: Nicotine Substance and Sexual Activity Alcohol use: Not Currently Drug use: Never Sexual activity: Not Currently OB History 0 Para 0 Term 0 0 AB 0 Living 0 SAB 0 IAB 0 Ectopic 0 Multiple 0 Live Births 0 Current Outpatient Medications Medication Sig Dispense Refill norethindrone (Aygestin) 5 mg tablet Take 2 tablets by mouth 3 times daily. 180 tablet 6 senna (Senokot) 8.6 mg tablet Take by mouth daily. doxepin (Silenor) 3 mg tablet Take 3 mg by mouth nightly. chlorproMAZINE (Thorazine) 200 mg tablet gabapentin (Neurontin) 300 mg capsule Take 1 capsule by mouth nightly. Takes gabapentin 300 mg in AM and 600 mg in PM Jardiance 10 mg tablet Take 10 mg by mouth daily. acetaminophen (Tylenol) 325 mg Tablet Take 2 tablets by mouth every 4 hours as needed for Pain. 90 tablet 1 chlorproMAZINE (Thorazine) 50 mg Tablet Take 50 mg by mouth as needed. traZODone (Desyrel) 100 mg Tablet Take 300 mg by mouth nightly. semaglutide (Ozempic) 2 mg/dose (8 mg/3 mL) Pen Injector Inject 2 mg subcutaneously every 7 days. Lantus Solostar U-100 Insulin 100 unit/mL (3 mL) pen Inject 12 Units subcutaneously daily. (Patienttaking differently: Inject 12 Units subcutaneously 2 times daily. 17 units in the morning and 18 atnight.) gabapentin (Neurontin) 300 mg Capsule Take 1 capsule by mouth 2 times daily. 90 capsule ARIPiprazole (Abilify) 15 mg Tablet Take 20 mg by mouth daily. cyanocobalamin, vitamin B-12, 500 mcg Tablet Take 1,000 mcg by mouth Daily. glucose 4 gram Tablet, Chewable CHEW ONE TABLET BY MOUTH EVERY 10 MIN. NEEDED FOR HYPOGLYCEMIA UNTIL SYMPTOMS OF LOW BLOOD SUGAR ARE CONTROLLED ferrous gluconate 324 mg (38 mg iron) Tablet Take 324 mg by mouth 2 times daily. furosemide (Lasix) 40 mg Tablet Take 40 mg by mouth every morning. NovoLOG Flexpen U-100 Insulin 100 unit/mL (3 mL) Insulin Pen Inject 9 Units subcutaneously 3 times daily (before meals). 35 UNITS THIS AM SLIDING SCALE 9-35 UNITS BID levothyroxine (Synthroid) 200 mcg Tablet Take 200 mcg by mouth Daily. losartan (Cozaar) 25 mg Tablet Take 25 mg by mouth daily. metFORMIN XR (Glucophage XR) 500 mg Tablet Sustained Release 24 hr Take 1,000 mg by mouth 2 times daily. metoprolol succinate XL (Toprol-XL) 50 mg Tablet Sustained Release 24 hr Take 50 mg by mouth daily. BD AutoShield Duo Pen Needle 30 gauge x 3/16 Needle USE UP TO 5 PEN NEEDLES DAILY polyethylene glycoL (Miralax) 17 gram/dose Powder Take 17 g by mouth daily as needed. prazosin (Minipress) 5 mg Capsule Take 10 mg by mouth nightly. Indications: posttraumatic stress syndrome rosuvastatin (Crestor) 40 mg Tablet Take 1 tablet by mouth nightly. No current facility-administered medications for this visit. Allergies Allergen Reactions Fluoxetine Affected glucose level Physical Exam Last Set of Vitals: BP 129/82 (BP Location (NBP): Right arm) Pulse (!) 115 Temp 35.4 ??C (95.7 ??F) Resp 16 Ht 154.9 cm (5' 1) Wt (!) 185.1 kg (408 lb) LMP (LMP Unknown) SpO2 100% BMI 77.09 kg/m?? Weight: (!) 185.1 kg (408 lb) Body mass index is 77.09 kg/m??. Physical Exam Gen: Well-appearing female in NAD Abd: Obese, soft, non-tender to palpation Pelvic: deferred Assessment/Plan: Zenia Worley is a 32 y.o. who presents for hospital follow-up of abnormaluterine bleeding. She has had no further bleeding on norethindrone 10mg TID. Given her amount of blood loss, I advised her that I would recommend continuing the current dose for the next 3 months, and then will reassess going down on it. Also advised that when she has bariatric surgery, they do notrecommend getting for some time after in order to maximize weight loss, so we are happy tohelp with control options when she had the surgery. Advised we could even place an IUD in theOR during surgery if needed. She is not sexually active at the moment and does not currently need control. Will continue norethindrone and f/u in [address] Swain or myself. I spent 20 minutes on this patient encounter today to include chart review, face to face examination and counseling, and coordination of care Berenice Ahumada MD documented in this encounter Plan of Treatment Upcoming Encounters Date Type Department Care Team (Late st Contact Info) Description 12/30/2023 2:45 PM EDT TH Visit (TeleHealth) [place] [address] Michael Morgan, [facility] [address] [place] [place] [address] documented as of this encounter Goals Goal Patient Goal Type Associated Problems Recent Progress Patient-Stated? Author Other (Enter personal goal) Lifestyle On track( 1:14 PM EDT) Riddhi Buchanan RD Note: -Add peanut butter to oatmeal -Continue to add beans to meals as a source of protein and fiber -If can, buy fresh vegetables and fruit from [employer]-sent message with resources -Choose whole grain options [...] Note: Practice STOP and Urge Surfing. Health Supervisor Channel Process will send hand-outs. Movement Lifestyle On track( 1:14 PM EDT) Riddhi Buchanan RD Note: Continue to walk stairs and walks when can. Will continue using stairs as it's colder. Look into finding weights free online or at [employer] stores. Could use water-filled milk jugs as weights-a full gallon jug would be 8 lbs. Will look into nearby rec center 04/16/22 NATHALIA documented as of this encounter Visit Diagnoses Diagnosis Abnormal uterine bleeding (AUB)- Primary documented in this encounter Care Teams Assistant Inventory Manager Relationship Specialty Start Date End Date Lia Pearson APRN [address] [place] [address] PCP - General Geriatric Medicine 02/09/22 documented as of this encounter
--- OUTSIDE RECORDS SUMMARY | 2023-11-26 19:30 | XMS_ITS | Encounter Summary ---
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 weighed 533 Age most weighed 30 Times lost 10 lbs or more 6 to 10 Lost weight how? Ate less food Switched to food with less calories Ate less fat Ate fewer carbohydrates Exercised Skipped meals Ate diet foods or products Took other pills, medicines, herbs, or supplements not needing a prescription ank a lot of water Changed eating habits (didn't eat late at night, ate several small meals a day) Ate less junk food or fast food Joined a weight loss program (ex: Weight Watchers, Lore Ch, TOPS, or Overeaters Anonymous) Worried food would run out before we got money to buy more Sometimes true Food didn't last; no money to get more Sometimes true DPRP Score: 0 Bariatric Surgery VTE Risk Assessment Score Patients will be considered to be at high risk if they have one or more of the following: [x] Previous VTE or BMI >/= 60 kg/m2 Or two or more of the following: [] Age > 50 [] BMI >/= 50 kg/m2 [] Male sex [] Recent tobacco use [] Obstructive sleep apnea [] Venous insufficiency/ varicose veins [] OCP or HRT within 30 days of surgery Total: extended VTE prophylaxis [x] is [] is not indicated post bariatric surgery discharge Patients are advised to stop HRT and OCP/ DMPA 1 month prior to surgery and hold for 1 month postop, and use control during this time if appropriate. All patients who take coumadin/ anti-10Ainhibitors preoperatively are referred to the Thrombosis Clinic for recommendations. Review of Systems (negative if left blank): GI: [] dysphagia [] early satiety [] abdominal pain [] hernia [] prior CT scan abdomen [] nausea/vomiting [] blood in stool [] diarrhea [x] constipation (taking daily) [] IBD [] postprandial RUQ pain Neurologic: [] dizziness [] chronic headaches Cardiovascular: [] history of chest pain, squeezing, pressure [] syncope [] murmur [] palpitations Respiratory: [] shortness of breath [] wheezing : [] hematuria [] history of renal calculi Musculoskeletal [x] myalgia/arthralgias: back pain Extremities: [] varicose veins [x] Edema (well managed) Skin: [] skinfold rashes [] chronic wounds Endocrine: [] PCOS [x] thyroid disease (taking levothyroxine) Heme/Lymph: [] excessive bruising [] lymphadenopathy [x] iron deficiency history Allergic/ Immun: [] use of steroid/ immunosuppressant for chronic condition Psychiatric [x] depression [x] anxiety/panic attacks [] history of suicide attempt [] addiction [] psychiatric or rehab admissions See above Physical exam: Vital signs: Patient Vitals for the past 24 hrs: Temp Pulse Resp BP SpO2 01/26/23 1422 36.4 ??C (97.5 ??F) (!) 108 18 168/82 100 % Body mass index is 65.37 kg/m??. Neuro: Non-focal. Psych: Pleasant, conversant, normal affect, cognition and mood. Behavior:[] defensive [] hostile [] expressive [] quiet [] monopolizing [] argumentative [x] insightful [] insightless[] fidgety [x] motivated [] apathetic [] preoccupied [] negativistic [] disruptive [x] attentive Mood: [x] stable [] labile [] depressed [] happy [] anxious [] hypomanic [] intense [] angry [] worrisome [] flat [] detached [] fearful [] sad ENT: Neck supple with normal ROM, no adenopathy or thyromegaly. Lungs: CTA bilaterally without wheezing. Heart: RRR, no murmur appreciated. Abdomen: Obese, soft, non- tender. Prior incisions: None.. Hernias: None. Extremities: no lower extremity edema. Skin: No areas of skin breakdown. Obesity distribution: [x] Central [] Gyneoid Assessment/ Plan: 32 y.o. female with severe obesity with obesity-related comorbidities including hypertension, type 2 diabetes, obstructive sleep apnea, and mild functional limitations/ mild impairment of well being. She has had failure to sustain weight loss by medical management and meets the criteria proposed bythe NIH Consensus Guidelines for surgical treatment of severe obesity and the AACE, TOS, ASMBS Clinical Practice Guidelines for the Perioperative Nutritional, Metabolic and Non-surgical Support of the Bariatric Surgery Patient. She is aware that there are non-surgical methods to achieve weight loss. After review of her medical record, history and physical exam, I find her to be a good candidate for bariatric surgery. She has had an opportunity to have all her questions answered and is in agreement with the plan of care. She was encouraged to call with any questions or concerns. Pending: Follow up with hematology (incomplete work up 2021, now s/p bleed) PREVENTIVE MAINTENANCE ENGINEER follow up as scheduled Anesthesia consult (re: cardiac PMH including NSTEMI) Follow up with MD/IMMUNOLOGIST/RD day of anesthesia consult for consent Preoperative Group Class CBC and CMP within 6 months of surgery, per MBSAQ[facility] accredited bariatric center guidelines. Labs atfollow up. Ongoing weight loss encouraged This was a 60 minute visit spent with patient discussing bariatric surgery readiness, risks and benefits. Additional time was spent reviewing previous notes and labs, in care coordination, ordering labs & completing documentation. Elizabeth García APRN documented in this encounter Plan of Treatment Upcoming Encounters Date Type Department Care Team (Late st Contact Info) Description 12/30/2023 2:45 PM EDT TH Visit (TeleHealth) [place] [address] Michael Morgan [facility] [place] [address] Scheduled Referrals Name Type Priority Associated Diagnoses Order Schedule Referral to General Anesthesiology Outpatient Referral Routine Class 3 severe obesity due to excess calories without serious comorbidity with body mass index (BMI) greater than or equal to 70 in adult Ordered: 01/26/2023 documented as of this encounter Goals Goal Patient Goal Type Associated Problems Recent Progress Patient-Stated? Author Other (Enter personal goal) Lifestyle On track( 023 1:14 PM EDT) No Riddhi Wilson RD Note: -Add peanut butter to oatmeal -Continue to add beans to meals as a source of protein and fiber -If can, buy fresh vegetables and fruit from [employer] market-sent message with resources -Choose whole grain [...] Note: Practice STOP and Urge Surfing. Health Bait Painter will send hand-outs. Movement Lifestyle On track( 023 1:14 PM EDT) Riddhi Buchanan RD Note: Continue to walk stairs and walks when can. Will continue using stairs as it's colder. Look into finding weights free online or at [employer] stores. Could use water-filled milk jugs as weights-a full gallon jug would be 8 lbs. Will look into nearby rec center 04/16/22 NATHALIA documented as of this encounter Visit Diagnoses Diagnosis Class 3 severe obesity due to excess calories without serious comorbidity with body mass index (BMI) greater than or equal to 70 in adult Pre-op evaluation Preoperative examination, unspecified documented in this encounter Care Teams Gas Pump Attendant Relationship Specialty Start Date End Date Lia Pearson APRN [address] [place] [address] PCP - General Geriatric Medicine 02/09/22 documented as of this encounter
--- OUTSIDE RECORDS SUMMARY | 2023-11-26 19:30 | XMS_ITS | Encounter Summary ---
Author Organization [facility] [place] [address] Care Team Providers Care Pedal Assembler Name Role Phone Lia Pearson APRN Primary Care Provider [phone] Encounter Details Date Type Department Care Team (Late st Contact Info) Description 03/08/2023 Notes [place] [address] Michael Morgan, [facility] [place] [address] Social History Tobacco Use Types Packs/Day Years [...] encounter Progress Notes * Michael Morgan, - 03/08/2023 10:41 AM EDT INTERVENTIONAL RADIOLOGY Follow Up Progress Note Procedure(s): Uterine Artery Embolization (Gelfoam Embolization) on 10/13/22 Interval Events: Please see my initial follow up note of 11/12/22 and subsequent follow up note of 02/11/23 initial details. Since the prior follow up, the patient has had an increase in the vaginal bleeding, described as needing a few pads per day, which has since resolved. She is on Norethindrone which has been keeping the volume of bleeding at the same level otherwise. Current degree of vaginal bleeding is [id number]. She denies any new symptoms. No need [...] defer a repeat procedure f or now. Assessment: 32 y.o. female with history of significant vaginal and uterine hemorrhage which initially resolved following bilateral uterine artery embolization with gelfoam. Now with mild, non lifestyle limiting recurrent vaginal hemorrhage. Plan: Patient will continue to monitor symptoms. If bleeding increases, she will reach back out. Patient already has scheduled follow up with me in April 2023, which we will keep. Over 10 minutes of this 15 minute visit were spent in counseling and coordination of care. Michael Morgan DO, MPH Staff Physician - Interventional Radiology Pager [phone] documented in this encounter Plan of Treatment Upcoming Encounters Date Type Department Care Team (Late st Contact Info) Description 12/30/2023 2:45 PM EDT TH Visit (TeleHealth) [place] [address] Michael Morgan DO [facility] [place] [address] documented as of this encounter Goals Goal [...] Note: Practice STOP and Urge Surfing. Health Belt Turner will send hand-outs. Movement Lifestyle On track( 023 1:14 PM EDT) Riddhi Buchanan RD Note: Continue to walk stairs and walks when can. Will continue using stairs as it's colder. Look into finding weights free online or at [employer] stores. Could use water-filled milk jugs as weights-a full gallon jug would be 8 lbs. Will look into nearby rec center 04/16/22 NATHALIA documented as of this encounter Visit Diagnoses Not on filedocumented in this encounter Care Teams Pedal Assembler Relationship Specialty Start Date End Date Lia Pearson APRN [address] [place] [address] PCP - General Geriatric Medicine 02/09/22 documented as of this encounter
--- OUTSIDE RECORDS SUMMARY | 2023-11-26 19:30 | XMS_ITS | Encounter Summary ---
Author Organization [facility] [place] [address] Care Team Providers Care Mechanical Integrity Specialist Name Role Phone Lia Pearson APRN Primary Care Provider [phone] Reason for Visit * Reason Comments Follow-up Encounter Details Date Type Department Care Team (Late st Contact Info) Description 03/18/2023 10:40 AM EDT Office Visit Obstetrics [place] [address] Berenice Ahumada MD [facility] DR OBSTETRICS [place] [address] Abnormal uterine bleeding (AUB) (Primary Dx); Class 3 severe obesity due to excess calories with serious comorbidity and body mass index (BMI) of 60.0 to 69.9 in adult Social History Tobacco Use Types Packs/Day Years [...] Sign Reading Time Taken Comments Blood Pressure 135/84 03/18/2023 10:47 AM EDT Pulse 99 03/18/2023 10:47 AM EDT Temperature 36.5 ??C (97.7 ??F) 03/18/2023 10:47 AM E DT Respiratory Rate 22 03/18/2023 10:47 AM EDT Oxygen Saturation 100% 03/18/2023 10:47 AM EDT Inhaled Oxygen Concentration - - Weight - - Height - - Body Mass Index - - documented in this encounter Patient Instructions * Attachments The following attachments cannot be sent through Care Everywhere. * IUD: General Info (Kyrgyz) documented in this encounter Progress Notes * Berenice Ahumada MD - 03/18/2023 10:40 AM EDT BUSINESS OBJECTS REPORT DEVELOPER Follow-up Visit Reason for Visit: Zenia is a 32 y.o. pre menopausal female who presents for follow-up of abnormal uterine bleeding. HPI: She was admitted to from 10/13/22 to 10/15/22 with abnormal uterine bleeding requiring transfusion of 5 units of pRBC's, IR uterine artery embolization and IV premarin. Prior to that she had a hysteroscopy, D&C and progesterone IUD placement in 02/2022, however the IUD expelled at some point. She continues to take the norethindrone 10mg TID. Did have bleeding recently for about 10 days - was light and only at night. This is her first bleeding since hospitalization. Stopped on Wednesday. She is scheduled for a gastric bypass on 04/07/[address] Contreras. She is planning to have a liletta IUD placed while under anesthesia at that time as well. Is hopeful that then she will be able to stop the norethindrone. She recently met with IR and at this time declined repeat UAE given that her bleeding is so light. Does have another appointment with them in April. 02/11/2023 10:51 AM Director Graphics Screener Little interest or pleasure Not at all Down, depressed, hopeless Several Days Nervous, anxious Not at all Unable to stop worrying Not at all Patient Active Problem List Diagnosis Date Noted Cardiomegaly 01/22/2023 Constipation 01/22/2023 Diabetic macular edema 01/22/2023 Dissociative identity disorder 01/22/2023 Heart failure with preserved ejection fraction 01/22/2023 Hemorrhagic shock 01/22/2023 Iron deficiency anemia due to chronic blood loss 01/22/2023 Papilledema 01/22/2023 Plantar fasciitis 01/22/2023 Pleural effusion 01/22/2023 ST elevation 01/22/2023 Von Willebrand disease 01/22/2023 Status post embolization of uterine artery 01/22/2023 Schizoaffective disorder, bipolar type 01/22/2023 Vaginal bleeding 10/13/2022 Class 3 severe obesity with body mass index (BMI) greater than or equal to 70 in adult 02/20/2022 Vitamin D deficiency 02/18/2022 Insomnia 12/19/2021 Essential hypertension, benign 09/26/2021 Long-term insulin use 09/26/2021 [facility] 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 09/26/2021 [...] ANESTHESIA performed by Sabrina Swain MD at [facility] MAIN OR IR ARTERIAL INTERVENTION 10/13/2022 IR Arterial Intervention 10/13/2022 Pradip Avila MD [facility] INTERVENTIONL RAD PRG ECHOGRAPHY TRANSVAGINAL NON-OB Midline 03/03/2022 ULTRASOUND, TRANSVAGINAL (WRVU 0.69) performed by Sabrina Swain MD at [facility] MAIN OR PRO HYSTEROSCOPY, W/ENDO BX N/A 03/03/2022 HYSTEROSCOPY, SURG W/ENDOMETRIAL SAMPLING, POLYPECTOMY (WRVU 4.74) performed by Sabrina Swain MD [facility] MAIN OR PRO INSERT INTRAUTERINE DEVICE N/A 03/03/2022 INSERTION OF IUD, VAGINAL APPROACH (WRVU 1.01) performed by Sabrina Swain MD at [facility] MAIN OR PRO PELVIC EXAMINATION W ANESTH N/A 03/03/2022 PELVIC EXAM UNDER ANESTHESIA (WRVU 1.75) performed by Sabrina Swain MD at [facility] MAIN OR Family History Problem Relation Age [...] Current Outpatient Medications Medication Sig Dispense Refill cholecalciferol, Vitamin D3, 1,250 mcg (50,000 unit) Capsule every week insulin aspart U-100 (NovoLOG) 100 unit/mL (3 mL) Insulin Pen Three times a day Lantus Solostar U-100 Insulin 100 unit/mL (3 mL) pen 12 units qAM, 14units qPM norethindrone (Aygestin) 5 mg tablet Take 2 tablets by mouth 3 times daily. 180 tablet 6 senna (Senokot) 8.6 mg tablet Take by mouth daily. doxepin (Silenor) 3 mg tablet Take 6 mg by mouth nightly. chlorproMAZINE (Thorazine) 200 mg tablet 300 mg. gabapentin (Neurontin) 300 mg capsule Take 1 [...] Tablet Take 300 mg by mouth nightly. ARIPiprazole (Abilify) 15 mg Tablet Take 20 mg by mouth daily. glucose 4 gram Tablet, Chewable CHEW ONE TABLET BY MOUTH EVERY 10 MIN. NEEDED FOR HYPOGLYCEMIA UNTIL SYMPTOMS OF LOW BLOOD SUGAR ARE CONTROLLED ferrous gluconate 324 mg (38 mg iron) Tablet Take 324 mg by mouth 2 times daily. furosemide (Lasix) 40 mg Tablet Take 20 mg by mouth every morning. NovoLOG Flexpen U-100 Insulin 100 unit/mL (3 mL) Insulin Pen Inject 9 Units subcutaneously 3 times daily (before meals). 35 UNITS THIS AM SLIDING SCALE 9-35 UNITS BID levothyroxine (Synthroid) 200 mcg Tablet Take 200 mcg by mouth Daily. metFORMIN XR (Glucophage XR) 500 mg Tablet Sustained Release 24 hr Take 1,000 mg by mouth 2 times daily. BD AutoShield Duo Pen Needle 30 gauge x 3/16 Needle USE UP TO 5 PEN NEEDLES DAILY polyethylene glycoL (Miralax) 17 gram/dose Powder Take 17 g by mouth daily as needed. prazosin (Minipress) 5 mg Capsule Take 10 mg by mouth nightly. Indications: posttraumatic stress syndrome semaglutide (Ozempic) 2 mg/dose (8 mg/3 mL) Pen Injector Inject 2 mg subcutaneously every 7 days. Takes Wednesday mornings gabapentin (Neurontin) 300 mg Capsule Take 1 capsule by mouth 2 times daily. (Patient not taking: Reported on 03/18/2023) 90 capsule cyanocobalamin, vitamin B-12, 500 mcg Tablet Take 1,000 mcg by mouth Daily. metoprolol succinate XL (Toprol-XL) 50 mg Tablet Sustained Release 24 hr Take 100 mg by mouth daily. No current facility-administered medications for this visit. Allergies Allergen Reactions Fluoxetine Affected glucose level Mushroom Rash Physical Exam Last Set of Vitals: BP 135/84 Pulse 99 Temp 36.5 ??C (97.7 ??F) (Temporal) Resp 22 SpO2 100% There is no height or weight on file to calculate BMI. Physical Exam Gen: Well-appearing, obese female in NAD Assessment/Plan: Zenia Worley is a 32 y.o. who presents for follow-up of abnormal uterine bleeding. Her bleeding is currently well-controlled s/p UAE and on norethindrone 10mg TID. I advisedI would recommend that she continue the norethindrone until her surgery, and then if successful progesterone IUD placement, will likely be able to taper off of it. We discussed that Dr. Lizama will attempt to place a progesterone IUD during her surgery with Dr. Contreras, but that if the surgery is delayed until the evening, it is possible that the night-time on-call CERTIFIED LEGAL INVESTIGATOR may not be able to placeit. She voiced understanding. Consent form signed for progesterone IUD placement and all questions answered. Plan to follow-up 3 months after IUD placement. I spent 30 minutes on this patient encounter today to include chart review, face to face examination and counseling, and coordination of care Berenice Ahumada MD documented in this encounter Plan of Treatment Upcoming Encounters Date Type Department Care Team (Late st Contact Info) Description 12/30/2023 2:45 PM EDT TH Visit (TeleHealth) [place] [address] Michael Morgan, [facility] [place] [address] documented as of this encounter Goals Goal Patient Goal Type Associated Problems Recent Progress Patient-Stated? Author Other (Enter personal goal) Lifestyle On track( 023 1:14 PM EDT) Riddhi Buchanan RD Note: -Add peanut butter to oatmeal -Continue to add beans to meals as a source of protein and fiber -If can, buy fresh vegetables and fruit from [employer]-sent message with resources -Choose whole grain [...] Note: Practice STOP and Urge Surfing. Health Software Developer Consultant will send hand-outs. Movement Lifestyle On track( 023 1:14 PM EDT) Riddhi Buchanan RD Note: Continue to walk stairs and walks when can. Will continue using stairs as it's colder. Look into finding weights free online or at [employer] stores. Could use water-filled milk jugs as weights-a full gallon jug would be 8 lbs. Will look into nearby rec center 04/16/22 NATHALIA documented as of this encounter Visit Diagnoses Diagnosis Abnormal uterine bleeding (AUB)- Primary Class 3 severe obesity due to excess calories with serious comorbidity and body mass index (BMI) of 60.0 to 69.9 in adult documented in this encounter Care Teams Mechanical Integrity Specialist Relationship Specialty Start Date End Date Lia Pearson APRN [address] [place] [address] PCP - General Geriatric Medicine 02/09/22 documented as of this encounter
--- OUTSIDE RECORDS SUMMARY | 2023-11-26 19:30 | XMS_ITS | Encounter Summary ---
Author Organization [facility] [place] [address] Care Team Providers Care Gas Operator Name Role Phone Lia Pearson APRN Primary Care Provider [phone] Encounter Details Date Type Department Care Team (Latest Contact Info) Description 11/06/2022 Travel Social History Tobacco Use Types Packs/Day [...] EDT TH Visit (TeleHealth) [place] [address] Michael Morgan, [facility] [place] [address] documented as of this encounter Goals Goal [...] Note: Practice STOP and Urge Surfing. Health Pull Tab Dealer will send hand-outs. Movement Lifestyle On track( 023 1:14 PM EDT) Riddhi Buchanan RD Note: Continue to walk stairs and walks when can. Will continue using stairs as it's colder. Look into finding weights free online or at [employer] stores. Could use water-filled milk jugs as weights-a full gallon jug would be 8 lbs. Will look into nearby rec center 04/16/22 NATHALIA documented as of this encounter Visit Diagnoses Not on filedocumented in this encounter Care Teams Gas Operator Relationship Specialty Start Date End Date Lia Pearson APRN [address] [place] [address] PCP - General Geriatric Medicine 02/09/22 documented as of this encounter
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
--- OUTSIDE RECORDS SUMMARY | 2023-11-26 19:30 | XMS_ITS | Encounter Summary ---
[facility] [place] [address] Care Team Providers Care Children'S Tutor Nursery Name Role Phone Lia Pearson APRN Primary Care Provider [phone] Encounter Details Date Type Department Care Team (Late st Contact Info) Description 02/11/2023 3:45 PM EDT TH Visit (TeleHealth) [place] [address] Michael Morgan, [facility] [place] [address] Vaginal bleeding Social History Tobacco Use Types Packs/Day Years Used Date Smoking Tobacco: Former Smokeless Tobacco: Never Alcohol Use Standard Drinks/Week Comments Not Currently 0 (1 standard drink = 0.6 oz pur e alcohol) Sex and Gender Information Value Date Recorded Sex Assigned at Not on file Gender Identity Not on file Sexual Orientation Not on file documented as of this encounter H&P Notes * Michael Morgan, - 02/11/2023 3:45 PM EDT INTERVENTIONAL RADIOLOGY Follow Up Progress Note Procedure(s): Uterine Artery Embolization (Gelfoam Embolization) on 10/13/22 Interval Events: Please see my initial follow up note of 11/12/22 for initial details. Since the prior consultation, the patient has had recurrence of vaginal bleeding, described as a few tablespoons per day. She is on Norethindrone which has been keeping the volume of bleeding at the same level. Current degree of vaginal bleeding is [id number]. She denies any new symptoms. No need for transfusions. At the conclusion of our discussion, Ms Worley felt that her questions had been answered. Assessment: 32 y.o. female with history of significant vaginal and uterine hemorrhage which initially resolved following bilateral uterine artery embolization with gelfoam. Now with mild, non lifestyle limiting recurrent vaginal hemorrhage. Plan: As the patient has mild recurrent bleeding not requiring transfusion and well controlled on Norethindrone, would defer any further interventions for the time being. The patient was in agreement with this plan. I gave the patient the options of following up with me on an as needed basis (if she develops significant hemorrhage to call for uterine artery embolization) or to have a scheduled telephone follow up with me. The patient would prefer scheduled phone calls with me as a check-in progress rather thanan as needed follow up. She will be scheduled for a phone call with me in ~3-months. Should the patient develop symptoms in the interm, she has my phone number and will reach out to me. Over 10 minutes of this 15 minute visit were spent in counseling and coordination of care. Michael Morgan DO, MPH Staff Physician - Interventional Radiology Pager [phone] documented in this encounter Plan of Treatment Upcoming Encounters Date Type Department Care Team (Late st Contact Info) Description 12/30/2023 2:45 PM EDT TH Visit (TeleHealth) [place] [address] Michael Morgan DO [facility] [address] documented as of this encounter Goals Goal Patient Goal Type Associated Problems Recent Progress Patient-Stated? Author Other (Enter personal goal) Lifestyle On track( 023 1:14 PM EDT) Riddhi Buchanan, RD Note: -Add peanut butter to oatmeal [...] Note: Practice STOP and Urge Surfing. Health Embedded Software Programmer will send hand-outs. Movement Lifestyle On track( 023 1:14 PM EDT) Riddhi Buchanan RD Note: Continue to walk stairs and walks when can. Will continue using stairs as it's colder. Look into finding weights free online or at [employer] stores. Could use water-filled milk jugs as weights-a full gallon jug would be 8 lbs. Will look into nearby rec center 04/16/22 NATHALIA documented as of this encounter Visit Diagnoses Diagnosis Vaginal bleeding Other specified noninflammatory disorder of vagina documented in this encounter Care Teams Children'S Tutor Nursery Relationship Specialty Start Date End Date Lia Pearson APRN [address] [place] [address] PCP - General Geriatric Medicine 02/09/22 documented as of this encounter
--- OUTSIDE RECORDS SUMMARY | 2023-11-26 19:30 | XMS_ITS | Encounter Summary ---
Author Organization [facility] Address [facility] [place] [address] Care Team Providers Care Goring Cutter Name Role Phone Lia Pearson APRN Primary Care Provider [phone] Encounter Details Date Type Department Care Team (Late st Contact Info) Description 02/09/2023 Telephone Obstetrics [place] [address] Roseanne Richard Social History Tobacco Use Types Packs/Day Years [...] EDT TH Visit (TeleHealth) [place] [address] Michael Morgan, [facility] [place] [address] documented as of this encounter Goals Goal [...] Note: Practice STOP and Urge Surfing. Health Telephone Services Sales Representative will send hand-outs. Movement Lifestyle On track( 023 1:14 PM EDT) Riddhi Buchanan RD Note: Continue to walk stairs and walks when can. Will continue using stairs as it's colder. Look into finding weights free online or at [employer] stores. Could use water-filled milk jugs as weights-a full gallon jug would be 8 lbs. Will look into nearby rec center 04/16/22 NATHALIA documented as of this encounter Visit Diagnoses Not on filedocumented in this encounter Care Teams Goring Cutter Relationship Specialty Start Date End Date Lia Pearson APRN [address] [place] [address] PCP - General Geriatric Medicine 02/09/22 documented as of this encounter
--- OUTSIDE RECORDS SUMMARY | 2023-11-26 19:30 | XMS_ITS | Encounter Summary ---
[place] [address] Care Team Providers Care Non Licensed Operator Name Role Phone Lia Pearson APRN Primary Care Provider [phone] [phone] Encounter Details Date Type Department Care Team (Late st Contact Info) Description 12/08/2022 Telephone Obstetrics [place] [address] Siena Fuller, RN Social History Tobacco Use Types Packs/Day [...] encounter Miscellaneous Notes * Telephone Encounter - Siena Fuller RN - 12/08/2022 12:24 PM EDT TC to Zenia Worley 32 y.o. to discuss rx concerns. Zenia picked up her norethindrone 5mg tablet rx today from pharmacy. This was ordered for her to take 2 tablets by mouth 3 times daily. However, the prescription was refilled with instructions to take 1 tablet by mouth 2 times daily. TC to [facility] in [place], [place] to clarify rx. Per pharmacy, there was an old rx in their system that was filled for the lesser dosing/frequency. They have deactivated the old orders in the system, and her only current rx for norethindrone 5mg tablets is now the correct rx with instructionsto take 2 tablets by mouth 3 times daily. Per pharmacy, this is the same medication so Zenia can use this supply, but should take 2 tablets by mouth 3 times daily. When she is ready to refill, pharmacy will complete an insurance override to make sure that she can refill at the appropriate time. TC to update Zenia Worley. She agrees with plan and will call in case of further questions or concerns. documented in this encounter Plan of Treatment Upcoming Encounters Date Type Department Care Team (Late st Contact Info) Description 12/30/2023 2:45 PM EDT TH Visit (TeleHealth) [place] [address] Michael Morgan, [facility] [place] [address] documented as of this encounter Goals Goal [...] Note: Practice STOP and Urge Surfing. Health Dolphin Trainer will send hand-outs. Movement Lifestyle On track( 023 1:14 PM EDT) Riddhi Buchanan RD Note: Continue to walk stairs and walks when can. Will continue using stairs as it's colder. Look into finding weights free online or at [employer] stores. Could use water-filled milk jugs as weights-a full gallon jug would be 8 lbs. Will look into nearby rec center 04/16/22 NATHALIA documented as of this encounter Visit Diagnoses Not on filedocumented in this encounter Care Teams Non Licensed Operator Relationship Specialty Start Date End Date Lia Pearson APRN [address] [place] [address] PCP - General Geriatric Medicine 02/09/22 documented as of this encounter
--- OUTSIDE RECORDS SUMMARY | 2023-11-26 19:30 | XMS_ITS | Encounter Summary ---
Author Organization [facility] [place] [address] Care Team Providers Care Dynamiter Name Role Phone LiliLia JULIO C Primary Care Provider [phone] Reason for Visit * Consultation (Routine) - Closed Specialty Diagnoses / Procedures Referred By Della kern Referred To Contact Pre-Admission Testing Diagnoses Class 3 severe obesity due to excess calories without serious comorbidity with body mass index (BMI) greater than or equal to 70 in adult Gee Contreras MD [facility] [place] [address] [facility] [place] [address] [place] [address] Referral ID Status Reason Start Date Expiration Date V isits Requested Visits Authorized [id number] Closed Consult, Test & Treat 01/26/2023 01/26/2024 1 1 Encounter Details Date Type Department Care Team (Late st Contact Info) Description 02/12/2023 10:00 AM EDT [place] [address] Social History Tobacco Use Types Packs/Day Years [...] Sign Reading Time Taken Comments Blood Pressure 141/91 02/12/2023 10:03 AM EDT Pulse 94 02/12/2023 10:03 AM EDT Temperature - - Respiratory Rate - - Oxygen Saturation 98% 02/12/2023 10:03 AM EDT Inhaled Oxygen Concentration - - Weight - - Height 167.6 cm (5' 6) 02/12/2023 9:47 AM EDT Body Mass Index - - documented in this encounter Progress Notes * Gertrude Ying RN - 02/12/2023 10:00 AM EDT Pt and SENIOR NETWORK SECURITY ARCHITECT Elodia in [facility] for anesthesia consult today with Dr Dumont. The patient was given Welcome to [facility] booklet. The following medication instructions were given to the patient for her Surgery with Dr Contreras not yet booked. Jardiance (Empagliflozin): Hold 3 days prior to surgery. U100 Glargine (Basaglar, Lantus, Semglee): Take usual morning dose day prior to surgery Reduce dinner/bedtime dose by 20% on day prior to surgery. Type 2 DM reduce dose by 50% on day of surgery Pt reports she will need assistance from Same Day RN to calculate above percentages during preoperative phone call. Pt would like reminder call about Jardiance. Hold Lasix, Metformin, vitamins, supplements and herbals on day of surgery. Aspart (novolog, Fiasp): Take usual dose before meals on day prior to surgery. No Bedtime dose on day prior to surgery. None on day of surgery unless blood Sugar >200, then okay to give per sliding scale every 4 hours as needed documented in this encounter Plan of Treatment Upcoming Encounters Date Type Department Care Team (Late st Contact Info) Description 12/30/2023 2:45 PM EDT TH Visit (TeleHealth) [place] [address] Michael Morgan, [facility] [place] [address] Scheduled Referrals Name Type Priority Associated Diagnoses [...] can, buy fresh vegetables and fruit from [employer]-sent message with resources -Choose whole grain options [...] Note: Practice STOP and Urge Surfing. Health Telemarketing Supervisor will send hand-outs. Movement Lifestyle On track( 1:14 PM EDT) Riddhi Buchanan RD Note: Continue to walk stairs and walks when can. Will continue using stairs as it's colder. Look into finding weights free online or at [employer] stores. Could use water-filled milk jugs as weights-a full gallon jug would be 8 lbs. Will look into nearby rec center 04/16/22 NATHALIA documented as of this encounter Visit Diagnoses Not on filedocumented in this encounter Care Teams Dynamiter Relationship Specialty Start Date End Date Lia Pearson APRN [address] [place] [address] PCP - General Geriatric Medicine 02/09/22 documented as of this encounter
--- OUTSIDE RECORDS SUMMARY | 2023-11-26 19:30 | XMS_ITS | Encounter Summary ---
[facility] [place] [address] Care Team Providers Care Assistant Manager/Embalmer Name Role Phone Lia Pearson APRN Primary Care Provider [phone] Encounter Details Date Type Department Care Team (Latest Contact Info) Description 02/23/2023 12:00 PM EDT TH Visit (TeleHealth) Hematology [place] [address] Claudine Yang MD [facility]OLOG[facility] [place] [address] Carline Blanco MD [facility] HEMATOLOGY/[place] [address] Sandra Siddiqui RN Excessive bleeding in premenopausal period; Morbid obesity; Pre-op evaluation Social History Tobacco Use Types [...] Progress Notes * Claudine Yang MD - 02/23/2023 12:00 PM EDT Images from the original note were not included. HEMOSTASIS CONSULTATION DATE OF VISIT 02/23/2023 Patient Zenia Worley 1990 REFERRING PHYSICIAN Elizabeth Nixon APRN PRIMARY CARE PHYSICIAN Lia Pearson APRN REASON FOR CONSULTATION Evaluation of bleeding disorder in the setting of menorrhagia, family history of bleeding disorder & clearance for upcoming bariatric surgery Due to COVID-19 pandemic this office visit was converted to tele visit. Patient consents to this televisit and understands that the visit may be billed, similar to a clinic office visit. HISTORY OF THE PRESENT ILLNESS Zenia Worley is a 32 y.o. woman with history of morbid obesity, menorrhagia, RICHMOND, HTN, hypothyroidism, who is seen in consultation at the request of Lia Pearson APRN for evaluation of bleeding disorder.The history is obtained from the patient, and I have reviewed extensive medical records provided by the referring physician and located in the electronic medical record to fill in gaps in the patient's recollection of events, treatments and outcomes. Zenia has her menarche at age 13. Her period was regular at that time and lasted up to 7 days. Sheused to have 3 day of heavy flow. When she turned 16, she stopped having menses for 9 months and itstarted back up again and became heavier, irregular and prolonged. She was taking iron supplement for anemia at that time. It also appeared that her menses got heavier when she was 21 years old. At that time she was diagnosed with DM. She was prescribed norethindrone pill recently and has been on it for about a month now which seemed to help control her period. Prior to starting the pill, she wassoaking wet through her pads all time. Now she can at least wear her pads for several hours. Her FAST FOOD SHIFT LEAD has discussed hysteroscopy with biopsy, transvaginal ultrasound and also Mirena IUD insertion. This is scheduled under OR for Feb 2022. She is [facility] for pre op evaluation. Her outside lab showed normal VWF panel. She denies any history of easy bruising, recurrent epistaxis, GI/ bleeding. Her only prior surgery was I & D for her pressure sacral ulcer wound. She denies any unexpected bleeding complication. She had a tattoo on her forearm. She was told that she bled a bit more than expected during the procedure, but did not have any major bleeding issues following tattoo placement. She has just recovered from COVID-19 infection last week. She is vaccinated with moderna vaccine. She is working on loosing weight through weight and wellness program. She has tried to change her diet, walk more and doing yoga stretching. She feels that the medication that she is on also helps her with weight loss. She is hoping to undergo a bariatric surgery in the future. She does not routinely take NSAIDs, but takes excedrine for migraine as needed probably once a month or less. Last one was a month ago. Her sister also has history of heavy menses & uterine fibroid and has history of factor 8 disorder (not certain whether deficiency or elevated). No other family member with bleeding disorder thatshdomingo is aware of. INTERIM HISTORY I had a tele consultation back in 2021 with her and recommended her to have a bleeding screen testing done to complete work up but she did not complete at that time. She was recently seen by bariatric surgery and was recommended a Lobo-Issac bypass surgery for weightloss which is scheduled on Apr 07 2023. Her weight has continued to go down from 440 lbs, now 399 lbs. She exercises daily for 30 mins, andchange her eating habit, avoid soda. Since last visit with her, she underwent IR embolization of uterine artery in October 2022 which helped her menorrhagia. She has tried Mirena IUD in the past, but apparently it dislodged without her knowing it shortly after. She is interested to have it replaced if possible during her OR. Currently she is on progesterone only pill. She does have some minimal spotting. In interim, she talked to her sister and found out that she has elevated factor 8 activity as a part of work up for blood clot. PAST MEDICAL HISTORY Depression Hypothyroidism Menorrhagia Hypertension Mobid obesity PTSD RICHMOND Schizoaffective disorder Hyperlipidemia OPERATIVE PROCEDURES 1. I & D for decubitus sacral wound in 2018 Past Surgical History: Procedure Laterality Date CHG CYTOPATH,CERV/VAG,AUTO THIN LAYER,INTERP N/A 03/03/2022 PAP SMEAR UNDER ANESTHESIA performed by Sabrina Swain MD at [facility] MAIN OR IR ARTERIAL INTERVENTION 10/13/2022 IR Arterial Intervention 10/13/2022 Pradip Avila MD [facility] INTERVENTIONL RAD PRG ECHOGRAPHY TRANSVAGINAL NON-OB Midline 03/03/2022 ULTRASOUND, TRANSVAGINAL (WRVU 0.69) performed by Sabrina Swain MD at [facility] MAIN OR PRO HYSTEROSCOPY, W/ENDO BX N/A 03/03/2022 HYSTEROSCOPY, SURG W/ENDOMETRIAL SAMPLING, POLYPECTOMY (WRVU 4.74) performed by Sabrina Swain MD [facility] MAIN OR PRO INSERT INTRAUTERINE DEVICE N/A 03/03/2022 INSERTION OF IUD, VAGINAL APPROACH (WRVU 1.01) performed by Sabrina Swain MD at [facility] MAIN OR PRO PELVIC EXAMINATION W ANESTH N/A 03/03/2022 PELVIC EXAM UNDER ANESTHESIA (WRVU 1.75) performed by Sabrina Swain MD at [facility] MAIN OR OBSTETRIC HISTORY MEDICATIONS Outpatient Medications Marked as Taking for the 02/23/23 encounter (TH Visit (TeleHealth)) with Claudine Yang MD Medication Sig Dispense Refill cholecalciferol, Vitamin D3, [...] hr Take 100 mg by mouth daily. BD AutoShield Duo Pen Needle 30 gauge x 3/16 Needle USE UP TO 5 PEN NEEDLES DAILY polyethylene glycoL (Miralax) 17 gram/dose Powder Take 17 g by mouth daily as needed. prazosin (Minipress) 5 mg Capsule Take 10 mg by mouth nightly. Indications: posttraumatic stress syndrome ADVERSE DRUG REACTIONS Allergies as of 02/23/2023 - Review Complete 02/14/2023 Allergen Reaction Noted Fluoxetine 03/19/2021 Mushroom Rash 10/29/2022 FAMILY HISTORY She was adopted by her aunt. Her sister - which is biological cousin has history of heavy menses, uterine fibroid. One other sister (biological cousin)with elevated factor 8 and blood clot Mother of uncertain cause. On dialysis, hx of heart disease Biological father of uncertain cause. Was on tube feeding at the end. Strong family history of heart disease, obesity, DM Aunt schizoprenic depression. Anxiety. 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 Alcohol: 1-2 twice month REVIEW OF SYSTEMS Fevers/chills/sweats No Recent infections No Unexplained weight loss No Headache/lightheadedness/syncope No Sinus pain/pressure No Oral sores/lesions/bleeding No Sore throat/dysphagia No Nosebleeds No Cough/SOB/chest pain/heart racing No Nausea/vomiting/dyspepsia No Abdominal pain No Diarrhea/constipation No Urinary pain, burning, incontinence No Hematuria No Vaginal discharge/bleeding Menorrhagia resolved after IR embolization & also progesterone only pill Skin rashes/ulcers No Back/joint pain/swelling No Leg swelling/pain/redness No Bruising/petechiae/bleeding/melena No Sensory/motor No Polydipsia/polyuria/heat/cold intol No Lumps/bumps/swollen glands No Other Negative except as above PHYSICAL EXAMINATION Weight 399 lbs per patient report Height 165 cm LABORATORY STUDIES Lab Results Component Value Date WBC 6.7 02/11/2023 RBC 5.30 (H) 02/11/2023 HGB 14.0 02/11/2023 HCT 42.9 02/11/2023 MCV 80.9 (L) 02/11/2023 MCH 26.4 (L) 02/11/2023 MCHC 32.6 02/11/2023 PLATELET 349 02/11/2023 RDWCV 16.7 (H) 02/11/2023 10/02/21 VWF activity elevated 173% VWF antigen elevated 213% Factor 8 activity elevated 231% Bleeding screen: Latest Reference Range & Units 02/11/23 09:35 PT 9.4 - 12.5 sec 10.1 INR 0.9 PTT 25 - 37 sec 28 Fibrinogen 200 - 393 mg/dL 365 Thrombin Time 10 - 17 sec 16 Factor 8 Assay >=50 % 223 vWF Antigen % 115 vWF Activity % activity 84 Col/Epi <=160 sec 178 (H) Col/ADP <=120 sec 82 (H): Data is abnormally high Bleeding Screen DIAGNOSIS 1. No evidence of significant coagulation factor deficiency or von Willebrand disease. The patient's apparent history of Von Willebrand disease per chart review is noted. All VWF antigen and activity assays are within normal limits. 2. Prolonged PFA-100 Col/EPI closure time with normal Col/ADP closure time, most consistent with medication/supplement effect. Consider also vitamin deficiency, collagen vascular, medical (kidney, liver, thyroid) or anatomic etiologies. If bleeding persists and remains unexplained, consideration for platelet function studies may be an appropriate next step. Electronically signed by: Tasha Baker MD Verified: 02/17/2023 15:51 Pathologist Performed at: -[facility] Dept. of Pathology, [place] [address] Automotive Buyer: Katherine Webb MD, FCAP, [place] Certificate: [id number] RADIOGRAPHIC STUDIES None IMPRESSION Zenia Worley is a 32 y.o. woman with history of dysmenorrhea, questionable family history of bleeding disorder, morbid obesity, DM, HTN,hyperlipidemia who was referred for evaluation of bleeding disorder. She has a pending bariatric surgery. Previously Zenia was referred to our clinic with concern of family history of abnormal factor 8 level. She clarified with her sister and it turned out that she has hx of elevated factor 8 level and not deficiency - I explained to her that elevated factor 8 activity can be seen with obesity, inflammation, acute thrombosis etc. This would not explain menorrhagia. Her lab showed no evidence of bleeding disorder- no evidence of VWD, factor 8 deficiency nor hypofibrinogenemia. We talked that her PFA is slightly abnormal but does not suggest bleeding disorder. This could be due to medication/supplement etc or could also be normal variant. Based on reviewing herbleeding history, her main bleeding issue appeared to menorrhagia. I think it is more likely due touterine dysfunction rather than bleeding disorder. It is reassuring that her bleeding has subsided after IR embolization and her anemia has resolved. Recent Hg has improved to 14 from 8. Previously her IUD was dislodged. I think it is reasonable to reinsert Mirena IUD to try again and hopefully this may be effective and she can come off progesterone only pill at some point. She is interested to pursue that and wonders if this can be done in the OR at the same time of bariatric surgery. I will reach out to her FAST FOOD SHIFT LEAD/bariatric surgery and see if this is do able. From hematologic standpoint, Zenia does not have any underlying bleeding disorder. I explained to her that she will be at high risk of DVT/PE following the surgery and will need to be on prophylactic anticoagulant per standard bariatric protocol. (Enoxaparin 40 mg SQ BID for 2 weeks). PLAN/RECOMMENDATIONS 1. No evidence of bleeding disorder 2. From hematology standpoint, she is cleared to undergo bariatric surgery as planned. She can alsobe on prophylactic enoxaparin 40 mg SQ BID for 2 weeks for DVT prophylaxis per standard protocol following bariatric surgery 3. Will discuss with FAST FOOD SHIFT LEAD and bariatric team if Mirena IUD can be reinserted during the surgery. Otherwise continue progesterone only pill Zeina Worley had the opportunity to ask questions and indicated that all her questions were answered to her satisfaction. All of her questions were answered at her satisfaction. While I won't schedule to see her back for routine follow up, she knows that she can call our office if she has any questions or concerns or ifshe needs an elective surgery in the future. Claudine Yang MD [facility] documented in this encounter Plan of Treatment Upcoming Encounters Date Type Department Care Team (Late st Contact Info) Description 12/30/2023 2:45 PM EDT TH Visit (TeleHealth) [place] [address] Michael Morgan, [facility] [place] [address] documented as of this encounter Goals Goal Patient Goal Type Associated Problems Recent Progress Patient-Stated? Author Other (Enter personal goal) Lifestyle On track( 023 1:14 PM EDT) Riddhi Buchanan RD Note: -Add peanut butter to oatmeal -Continue to add beans to meals as a source of protein and fiber -If can, buy fresh vegetables and fruit from [employer]-sent message with resources -Choose whole grain [...] Note: Practice STOP and Urge Surfing. Health Consulting Group Analyst will send hand-outs. Movement Lifestyle On track( 023 1:14 PM EDT) Riddhi Buchanan RD Note: Continue to walk stairs and walks when can. Will continue using stairs as it's colder. Look into finding weights free online or at [employer] stores. Could use water-filled milk jugs as weights-a full gallon jug would be 8 lbs. Will look into nearby rec center 04/16/22 NATHALIA documented as of this encounter Visit Diagnoses Diagnosis Excessive bleeding in premenopausal period Premenopausal menorrhagia Morbid obesity Pre-op evaluation Preoperative examination, unspecified documented in this encounter Care Teams Assistant Manager/Embalmer Relationship Specialty Start Date End Date Lia Pearson APRN [address] [place] [address] PCP - General Geriatric Medicine 02/09/22 documented as of this encounter
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
--- OUTSIDE RECORDS SUMMARY | 2023-11-26 19:30 | XMS_ITS | Encounter Summary ---
Author Organization [facility] [place] [address] Care Team Providers Care Craniologist Name Role Phone Lia Pearson APRN Primary Care Provider [phone] Encounter Details Date Type Department Care Team (Latest Contact Info) Description 01/26/2023 Travel Social History Tobacco Use Types Packs/Day [...] EDT TH Visit (TeleHealth) [place] [address] Michael Morgan, [facility] [place] [address] documented as of this encounter Goals Goal [...] Note: Practice STOP and Urge Surfing. Health Automobile Mechanic Assistant will send hand-outs. Movement Lifestyle On track( 023 1:14 PM EDT) Riddhi Buchanan RD Note: Continue to walk stairs and walks when can. Will continue using stairs as it's colder. Look into finding weights free online or at [employer] stores. Could use water-filled milk jugs as weights-a full gallon jug would be 8 lbs. Will look into nearby rec center 04/16/22 NATHALIA documented as of this encounter Visit Diagnoses Not on filedocumented in this encounter Care Teams Craniologist Relationship Specialty Start Date End Date Lia Pearson APRN [address] [place] [address] PCP - General Geriatric Medicine 02/09/22 documented as of this encounter
--- OUTSIDE RECORDS SUMMARY | 2023-11-26 19:30 | XMS_ITS | Encounter Summary ---
Author Organization [facility] [place] [address] Care Team Providers Care Support Staff Name Role Phone Lia Pearson APRN Primary Care Provider [phone] Encounter Details Date Type Department Care Team (Latest Contact Info) Description 12/15/2022 Travel Social History Tobacco Use Types Packs/Day [...] EDT TH Visit (TeleHealth) [place] [address] Michael Morgan, [facility] [place] [address] documented as of this encounter Goals Goal [...] Note: Practice STOP and Urge Surfing. Health Machine Repairer Maintenance will send hand-outs. Movement Lifestyle On track( 023 1:14 PM EDT) Riddhi Buchanan RD Note: Continue to walk stairs and walks when can. Will continue using stairs as it's colder. Look into finding weights free online or at [employer] stores. Could use water-filled milk jugs as weights-a full gallon jug would be 8 lbs. Will look into nearby rec center 04/16/22 NATHALIA documented as of this encounter Visit Diagnoses Not on filedocumented in this encounter Care Teams Support Staff Relationship Specialty Start Date End Date Lia Pearson APRN [address] [place] [address] PCP - General Geriatric Medicine 02/09/22 documented as of this encounter
--- OUTSIDE RECORDS SUMMARY | 2023-11-26 19:30 | XMS_ITS | Encounter Summary ---
Author Organization [facility] [place] [address] Care Team Providers Care Forestry Fire Aid Name Role Phone Lia Pearson APRN Primary Care Provider [phone] Encounter Details Date Type Department Care Team (Latest Contact Info) Description 01/22/2023 Travel Social History Tobacco Use Types Packs/Day [...] EDT TH Visit (TeleHealth) [place] [address] Michael Morgan, [facility] [place] [address] documented as of this encounter Goals Goal [...] Note: Practice STOP and Urge Surfing. Health Surgical Services Tech will send hand-outs. Movement Lifestyle On track( 023 1:14 PM EDT) Riddhi Buchanan RD Note: Continue to walk stairs and walks when can. Will continue using stairs as it's colder. Look into finding weights free online or at [employer] stores. Could use water-filled milk jugs as weights-a full gallon jug would be 8 lbs. Will look into nearby rec center 04/16/22 NATHALIA documented as of this encounter Visit Diagnoses Not on filedocumented in this encounter Care Teams Forestry Fire Aid Relationship Specialty Start Date End Date Lia Pearson APRN [address] [place] [address] PCP - General Geriatric Medicine 02/09/22 documented as of this encounter
--- OUTSIDE RECORDS SUMMARY | 2023-11-26 19:30 | XMS_ITS | Encounter Summary ---
Author Organization [facility] Address [facility] [place] [address] Care Team Providers Care Category Manager Name Role Phone Lia Pearson APRN Primary Care Provider [phone] Encounter Details Date Type Department Care Team (Late st Contact Info) Description 11/11/2022 Telephone Obstetrics [place] [address] Roseanne Richard Social History Tobacco Use Types [...] EDT TH Visit (TeleHealth) [place] [address] Michael Morgan, [facility] [place] [address] documented as of this encounter Goals Goal [...] Note: Practice STOP and Urge Surfing. Health Line Haul Driver will send hand-outs. Movement Lifestyle On track( 023 1:14 PM EDT) Riddhi Buchanan RD Note: Continue to walk stairs and walks when can. Will continue using stairs as it's colder. Look into finding weights free online or at [employer] stores. Could use water-filled milk jugs as weights-a full gallon jug would be 8 lbs. Will look into nearby rec center 04/16/22 NATHALIA documented as of this encounter Visit Diagnoses Not on filedocumented in this encounter Care Teams Category Manager Relationship Specialty Start Date End Date Lia Pearson APRN [address] [place] [address] PCP - General Geriatric Medicine 02/09/22 documented as of this encounter
--- OUTSIDE RECORDS SUMMARY | 2023-11-26 19:31 | XMS_ITS | Encounter Summary ---
[place] [address] Care Team Providers Care Cone Examiner Name Role Phone Lai Pearson APRN Primary Care Provider [phone] [phone] Encounter Details Date Type Department Care Team (Late st Contact Info) Description 07/13/2022 Telephone [place] [id number] Zenia Sullivan Social History Tobacco Use Types Packs/Day Years [...] encounter Miscellaneous Notes * Telephone Encounter - Rebeka Up RN - 07/15/2022 5:28 PM EST Called and LVM with info from Dr. Waller * Telephone Encounter - Zenia Sullivan - 07/13/2022 1:32 PM EST Pt wants to know the likelihood of getting bariatric surgery and also wanted to inform WWC MD that last week she had some fluid building up (about 13 lbs) in her legs and her PCP gave her a temp increase dose in her water pill to help the fluid and it did decrease it. Pt also wants to go over recent bloodwork on 07/07 that her PCP ordered. [place] called [facility] to request labs be faxed- should be available on Onbase. Please call patient at [phone] to discuss these matters. Thank you documented in this encounter Plan of Treatment Upcoming Encounters Date Type Department Care Team (Late st Contact Info) Description 12/30/2023 2:45 PM EDT TH Visit (TeleHealth) [place] [address] Michael Morgan, [facility] [place] [address] documented as of this encounter Goals Goal Patient Goal Type Associated Problems Recent Progress Patient-Stated? Author Other (Enter personal goal) Lifestyle On track( 023 1:14 PM EDT) Riddhi Buchanan RD Note: -Add peanut butter to oatmeal -Continue to add beans to meals as a source of protein and fiber -If can, buy fresh vegetables and fruit from [employer] market-sent message with resources -Choose whole grain [...] Note: Practice STOP and Urge Surfing. Health Disposal Man will send hand-outs. Movement Lifestyle On track( 023 1:14 PM EDT) Riddhi Buchanan RD Note: Continue to walk stairs and walks when can. Will continue using stairs as it's colder. Look into finding weights free online or at [employer] stores. Could use water-filled milk jugs as weights-a full gallon jug would be 8 lbs. Will look into nearby rec center 04/16/22 NATHALIA documented as of this encounter Visit Diagnoses Not on filedocumented in this encounter Care Teams Cone Examiner Relationship Specialty Start Date End Date Lia Pearson APRN [address] [place] [place] [address] PCP - General Geriatric Medicine 02/09/22 documented as of this encounter
--- OUTSIDE RECORDS SUMMARY | 2023-11-26 19:31 | XMS_ITS | Encounter Summary ---
[place] [address] Care Team Providers Care Digital Media Representative Name Role Phone Lia Pearson APRN Primary Care Provider [phone] Encounter Details Date Type Department Care Team (Late st Contact Info) Description 09/21/2022 Telephone Obstetrics [place] [address] Siena Fuller, RN Social History Tobacco Use [...] Telephone Encounter - Siena Fuller RN - 09/21/2022 4:24 PM EDT Incoming TC from Zenia Worley 32 y.o. to discuss very heavy bleeding. Zenia reports that she has been saturating pads approximately every 20 minutes since last . She has had to switch to depends due to heavy bleeding, which she is changing every 1-2 hours. She also notes passing many clots, ranging in size from very small to larger than a golf ball. Sheendorses dizziness and lightheadedness over the weekend. She is currently taking Aygestin 5mg BID, which has not been effective in stopping bleeding. Given excessively heavy bleeding and dizziness/lightheadedness, recommended presenting to the Emergency Department for evaluation. Patient plans to go to [facility] Emergency Department tonight. She will have someone drive her or will take the bus. Will plan to call patient tomorrow morning to check in as well, and will assist in scheduling ED follow-up visit at this time. Patient in agreementwith plan and completes teach back. documented in this encounter Plan of Treatment Upcoming Encounters Date Type Department Care Team (Late st Contact Info) Description 12/30/2023 2:45 PM EDT TH Visit (TeleHealth) [place] [address] Michael Morgan, [facility] [place] [address] documented as of this encounter Goals Goal Patient Goal Type Associated Problems Recent Progress Patient-Stated? Author Other (Enter personal goal) Lifestyle On track( 023 1:14 PM EDT) Riddhi Buchanan RD Note: -Add peanut butter to oatmeal -Continue to add beans to meals as a source of protein and fiber -If can, buy fresh vegetables and fruit from [employer] market-sent message with resources -Choose whole grain [...] cup Self-awareness, body cues Lifestyle No Davidson Allne Note: Practice STOP and Urge Surfing. Health Machine Molder Squeeze will send hand-outs. Movement Lifestyle On track( 023 1:14 PM EDT) Riddhi Buchanan RD Note: Continue to walk stairs and walks when can. Will continue using stairs as it's colder. Look into finding weights free online or at [employer] stores. Could use water-filled milk jugs as weights-a full gallon jug would be 8 lbs. Will look into nearby rec center 04/16/22 NATHALIA documented as of this encounter Visit Diagnoses Not on filedocumented in this encounter Care Teams Digital Media Representative Relationship Specialty Start Date End Date Lia Pearson APRN [address] [place] [address] PCP - General Geriatric Medicine 02/09/22 documented as of this encounter
--- OUTSIDE RECORDS SUMMARY | 2023-11-26 19:31 | XMS_ITS | Encounter Summary ---
Author Organization [facility] Address [facility] [place] [address] Care Team Providers Care Balance Bridge Assembler Name Role Phone Lia Pearson APRN Primary Care Provider [phone] [phone] Encounter Details Date Type Department Care Team (Late st Contact Info) Description 05/27/2022 1:45 PM EST TH Visit (TeleHealth) Weight and Wellness at [address] [address] Riddhi Wilson, RD [facility] [place] [address] Class 3 severe obesity with body mass index (BMI) of 60.0 to 69.9 in adult, unspecified obesity type, unspecified whether [...] - Inhaled Oxygen Concentration - - Weight 192.3 kg (424 lb) 05/27/2022 1:00 PM EST Height - - Body Mass Index 70.56 03/03/2022 6:13 AM EDT documented in this encounter Patient Instructions * Patient Instructions* Riddhi Wilson RD - 05/27/2022 1:45 PM EST It was great to chat with you, Zenia. Below are goals discussed today as well as in past visits. Please reach out with a [facility] message if you have any questions [...] into finding weights free online or at [employer] stores. Could use water-filled milk jugs as weights-a full gallon jug would be 8 lbs. Will look into nearby [facility] 04/16/22 NATHALIA Other (Enter personal goal) -Add peanut butter to oatmeal -Continue to add beans to meals as a source of protein and fiber -If can, buy fresh vegetables and fruit from [employer]-sent message with resources -Choose whole grain options if available -When having a snack, focus on protein Self-awareness, body cues Practice STOP and Urge Surfing. Health Etl Manager will send hand-outs. documented in this encounter Progress Notes * Riddhi Wilson RD - 05/27/2022 1:45 PM EST Nutrition Intervention for Weight Management Initial RD visit with Zenia WorleyYARELI 1990 Patient confirms visit conducted while patient was in the following state: [place] Weight Today: Wt Readings from Last 3 Encounters: 05/27/22 (!) 192.3 kg (424 lb) 04/16/22 (!) 193.7 kg (427 lb) 03/03/22 (!) 193.8 kg (427 lb 3.2 oz) BMI Readings from Last 3 Encounters: 04/16/22 71.06 kg/m?? 03/03/22 71.09 kg/m?? 02/26/22 69.99 kg/m?? Pertinent meds: Seroquel, Ozempic Interview: Zenia is still looking to lower her Seroquel dose or switch to sleeping pills. She's had 3 different therapists switch lately, so she's had to start over 3 times now. She does have a new therapist though is not scheduled yet, will set it up Wednesday. Starting a new program with [employer]. Is comfortable finding new recipes for foods she is not as familiar with. Found one mashed cauliflower. Has a good system for accessing food, a mix bw food stamps, food pantry and she will start getting food boxes soon. Likes the cold for her walks, the last 3-4 weeks has not needed to worry about ice. Goes for walks in place of stairs. Is still proactive about finding a gym, may be able to get membership covered. [employer] program-signed up for membership. Bar beh still going well, is removing distractions when eating and eating at the dinner table. Weight is back down a few lbs. 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 Is not scheduled for FUV with this engineering writer for now, understands she can schedule if needed. Psych visit Jun 09. Weight Loss History: See previous notes from this engineering writer and [employer] provider for full account Typical Dietary Intake: See previous notes from this engineering writer B: L: D: S: low fat yogurt bw L and D and yogurt before bed for blood sugar Typical Beverages: [x] coffee (Cups per day: [] half and half (unflavored) [] flavored creamer (sugar) [] flavored creamer (sugar-free) [] added sugar - (total: [] added non-caloric sweetener [] water - (total: [x] plain [x] crystal light or other sugar-free additive [] [place] [] Alcohol (Amount per week: [] Diet soda [] Diet other drink [] Regular soda [] Juice [] Lemonade [x] milk with cereal Appetite/Hunger: [x] feels managed with foods/meals outlined above [] discussed meal/snack schedule adjustment today- see goals [] patient identifies eating for reasons other than hunger- see interview above [] Current food Tracking [] discussed potential benefit starting food tracking - see goals Patient Goals from Team: Goals ??? Bariatric behaviors 1. Eating Slowly and taking 20-30 minutes to complete a meal ??? Use Smaller utensils, e.g., children's utensils ??? Take small bite and put utensils down between bites ??? Set a time to time your meals ??? Use your non-dominant hand 2. Stop eating when you feel COMFORTABLE, not full ??? Remember it takes 20 minutes for your brain to let your stomach know there is food in it! 3. Meal planning and making healthy food choices ??? Eat 3 meals per day. NO skipping meals. If you are HUNGRY, have 1-2 pre planned and portion controlled snacks per day ??? Make healthy food choices ??? Limit alcohol ??? Reduce portion sizes ??? Eat Protein first 4. Separate eating and drinking by 30 minutes ??? Don't bring a drink to the table ??? Use sauces to moisten foods ??? Set up schedule to cut back on water at each meal 5. Stay hydrated! Aim for 48-64 oz each day ??? SIP slowly-5 minutes per ounce of fluid ??? Try freezing a bottle of water or using a child's sippie cup ??? Movement ??? Continue to walk stairs and walks when can. Will continue using stairs as it's colder. ??? Look into finding weights free online or at [employer] stores. o Could use water-filled milk jugs as weights-a full gallon jug would be 8 lbs. ??? Will look into nearby [facility] 04/16/22 NATHALIA ??? Other (Enter personal goal) -Add peanut butter to oatmeal -Continue to add beans to meals as a source of protein and fiber -If can, buy fresh vegetables and fruit from [employer]-sent message with resources -Choose whole grain options if available -When having a snack, focus on protein ??? Self-awareness, body cues Practice STOP and Urge Surfing. Health Etl Manager will send hand-outs. Bariatric eating behaviors introduced or reviewed: [x] Stop eating at comfortable full point (eating slowly to know, chewing thoroughly) [] Any binging identified? (6 months no binging prior to surgery) [x] Regular meal pattern, avoid grazing, reasonable snack frequency [x] Plan protein at all meals and snacks, eat protein first [x] Total water intake [x] eating and drinking by 30 minutes on either side [x] Sip rather than gulp [x] Reduce coffee intake down to ~1 cup (caffeine) prior to surgery [] Reduce alcohol, ideally avoid [] Currently smoking? [] Former smoker, quit date: (4 months nicotine-free prior to first surgery appointment) Activity: [x] reviewed current goals [] updated goals Barriers to Change: none Nutrition Goals updated today: Goals Addressed This Visit's Progress ??? Bariatric behaviors On track 6. Eating Slowly and taking 20-30 minutes to complete a meal ??? Use Smaller utensils, e.g., children's utensils ??? Take small bite and put utensils down between bites ??? Set a time to time your meals ??? Use your non-dominant hand 7. Stop eating when you feel COMFORTABLE, not full ??? Remember it takes 20 minutes for your brain to let your stomach know there is food in it! 8. Meal planning and making healthy food choices ??? Eat 3 meals per day. NO skipping meals. If you are HUNGRY, have 1-2 pre planned and portion controlled snacks per day ??? Make healthy food choices ??? Limit alcohol ??? Reduce portion sizes ??? Eat Protein first 9. Separate eating and drinking by 30 minutes ??? Don't bring a drink to the table ??? Use sauces to moisten foods ??? Set up schedule to cut back on water at each meal 10. Stay hydrated! Aim for 48-64 oz each day ??? SIP slowly-5 minutes per ounce of fluid ??? Try freezing a bottle of water or using a child's sippie cup ??? Movement On track ??? Continue to walk stairs and walks when can. Will continue using stairs as it's colder. ??? Look into finding weights free online or at [employer] stores. o Could use water-filled milk jugs as weights-a full gallon jug would be 8 lbs. ??? Will look into nearby [facility] 04/16/22 NATHALIA ??? Other (Enter personal goal) On track -Add peanut butter to oatmeal -Continue to add beans to meals as a source of protein and fiber -If can, buy fresh vegetables and fruit from [employer]-sent message with resources -Choose whole grain options if available -When having a snack, focus on protein Monitor/Evaluate: [] Needs additional fuv scheduled with this engineering writer: No follow-ups on file. (OR) [] Currently scheduled for: [] 1st consecutive monthly nutrition visit [] 2nd consecutive monthly nutrition visit [] 3rd consecutive monthly nutrition visit (OR) [x] Patient has met requirement of 3 consecutive monthly nutrition visits. Above determined to the best ability of this engineering writer. Patient will contact bariatric surgery team for any official determination about scheduling and insurance requirements ( ) Thank you, Riddhi Wilson RD LD 30 minutes were spent in visit today, including contact with patient, chart review, and documentation documented in this encounter Plan of Treatment Upcoming Encounters Date Type Department Care Team (Late st Contact Info) Description 12/30/2023 2:45 PM EDT TH Visit (TeleHealth) [place] [address] Michael Morgan, [facility] [place] [address] documented as of this encounter Goals Goal [...] Note: Practice STOP and Urge Surfing. Health Etl Manager will send hand-outs. Movement Lifestyle On track( 023 1:14 PM EDT) Riddhi Buchanan RD Note: Continue to walk stairs and walks when can. Will continue using stairs as it's colder. Look into finding weights free online or at [employer] stores. Could use water-filled milk jugs as weights-a full gallon jug would be 8 lbs. Will look into nearby rec center 04/16/22 NATHALIA documented as of this encounter Visit Diagnoses Diagnosis Class 3 severe obesity with body mass index (BMI) of 60.0 to 69.9 in adult, unspecified obesity type, unspecified whether serious comorbidity present documented in this encounter Care Teams Balance Bridge Assembler Relationship Specialty Start Date End Date Lia Pearson APRN [address] [place] [address] PCP - General Geriatric Medicine 02/09/22 documented as of this encounter
--- OUTSIDE RECORDS SUMMARY | 2023-11-26 19:31 | XMS_ITS | Encounter Summary ---
Author Organization [facility] [place] [address] Care Team Providers Care Grinder Hardboard Name Role Phone Lia Pearson APRN Primary Care Provider [phone] Encounter Details Date Type Department Care Team (Late st Contact Info) Description 10/06/2022 Telephone Obstetrics [place] [address] Sissy Rodriguez Social History Tobacco Use Types Packs/Day Years [...] EDT TH Visit (TeleHealth) [place] [address] Michael Morgan, [facility] [place] [address] documented as of this encounter Goals Goal Patient Goal Type Associated Problems Recent Progress Patient-Stated? Author Other (Enter personal goal) Lifestyle On track( 023 1:14 PM EDT) No Riddhi Wilson, CORNELIO Note: -Add peanut butter to oatmeal -Continue [...] Note: Practice STOP and Urge Surfing. Health Colors Custodian will send hand-outs. Movement Lifestyle On track( 023 1:14 PM EDT) Riddhi Buchanan RD Note: Continue to walk stairs and walks when can. Will continue using stairs as it's colder. Look into finding weights free online or at [employer] stores. Could use water-filled milk jugs as weights-a full gallon jug would be 8 lbs. Will look into nearby rec center 04/16/22 NATHALIA documented as of this encounter Visit Diagnoses Not on filedocumented in this encounter Care Teams Grinder Hardboard Relationship Specialty Start Date End Date Lia Pearson APRN [address] [place] [address] PCP - General Geriatric Medicine 02/09/22 documented as of this encounter
--- OUTSIDE RECORDS SUMMARY | 2023-11-26 19:31 | XMS_ITS | Encounter Summary ---
Author Organization [facility] Address [facility] [place] [address] Care Team Providers Care Cage Clerk Name Role Phone Lia Pearson APRN Primary Care Provider [phone] [phone] Encounter Details Date Type Department Care Team (Late st Contact Info) Description 10/13/2022 Notes Only Obstetrics [place] [address] Sabrina Swain MD [facility] DR OBSTETRICS [place] [address] Social History Tobacco Use Types Packs/Day Years Used Date Smoking Tobacco: Former Smokeless Tobacco: Never Alcohol Use Standard Drinks/Week Comments Not Currently 0 (1 standard drink = 0.6 oz pur e alcohol) Sex and Gender Information Value Date Recorded Sex Assigned at Not on file Gender Identity Not on file Sexual Orientation Not on file documented as of this encounter Progress Notes * Sabrina Swain MD - 10/13/2022 2:52 PM EDT TC received via [facility] from [facility] ED. 32 yo known to me, coming in with 5 d heavy VB, soaking pads, with tachycardia and hypoTN. Hb from 12->8.9 over 5 days. Given 2uPRBC and TXA in ED. PUS performed, IUD not seen. Pt reportedly taking her aygestin 5 BID. Pt with BMI ~70, underwent hysteroscopy D&C, IUD insertion in Feb 2022. ED to ED Transfer accepted. Advised Premarin 25mg IVx 1 prior to transfer if bleeding continues to be heavy. documented in this encounter Plan of Treatment Upcoming Encounters Date Type Department Care Team (Late st Contact Info) Description 12/30/2023 2:45 PM EDT TH Visit (TeleHealth) [place] [address] Michael Morgan, [facility] [place] [address] documented as of this encounter Goals Goal Patient Goal Type Associated Problems Recent Progress Patient-Stated? Author Other (Enter personal goal) Lifestyle On track( 023 1:14 PM EDT) Riddhi Buchanan RD Note: -Add peanut butter to oatmeal -Continue to add beans to meals as a source of protein and fiber -If can, buy fresh vegetables and fruit from [employer] market-sent message with resources -Choose whole grain [...] Practice STOP and Urge Surfing. Health Machine Baster will send hand-outs. Movement Lifestyle On track( 023 1:14 PM EDT) Riddhi Buchanan RD Note: Continue to walk stairs and walks when can. Will continue using stairs as it's colder. Look into finding weights free online or at [employer] stores. Could use water-filled milk jugs as weights-a full gallon jug would be 8 lbs. Will look into nearby rec center 04/16/22 NATHALIA documented as of this encounter Visit Diagnoses Not on filedocumented in this encounter Care Teams Cage Clerk Relationship Specialty Start Date End Date Lia Pearson APRN [address] [place] [address] PCP - General Geriatric Medicine 02/09/22 documented as of this encounter
--- OUTSIDE RECORDS SUMMARY | 2023-11-26 19:31 | XMS_ITS | Encounter Summary ---
Author Organization [facility] [place] [address] Care Team Providers Care Massage Operator Name Role Phone Lia Pearson APRN Primary Care Provider [phone] [phone] Encounter Details Date Type Department Care Team (Latest Contact Info) Description 08/11/2022 Travel Social History Tobacco Use Types Packs/Day [...] EDT TH Visit (TeleHealth) [place] [address] Michael Morgan, [facility] [place] [address] documented as of this encounter Goals Goal [...] Note: Practice STOP and Urge Surfing. Health Wedger And Gluer will send hand-outs. Movement Lifestyle On track( 023 1:14 PM EDT) Riddhi Buchanan RD Note: Continue to walk stairs and walks when can. Will continue using stairs as it's colder. Look into finding weights free online or at [employer] stores. Could use water-filled milk jugs as weights-a full gallon jug would be 8 lbs. Will look into nearby rec center 04/16/22 NATHALIA documented as of this encounter Visit Diagnoses Not on filedocumented in this encounter Care Teams Massage Operator Relationship Specialty Start Date End Date Lia Pearson APRN [address] [place] [address] PCP - General Geriatric Medicine 02/09/22 documented as of this encounter
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
--- OUTSIDE RECORDS SUMMARY | 2023-11-26 19:31 | XMS_ITS | Encounter Summary ---
Author Organization [facility] [place] [address] Care Team Providers Care Wharf Tender Head Name Role Phone Lia Pearson APRN Primary Care Provider [phone] Encounter Details Date Type Department Care Team (Late st Contact Info) Description 10/05/2022 Telephone [place]stetrics [place] [address] Sissy Rodriguez Social History Tobacco Use Types [...] EDT TH Visit (TeleHealth) [place] [address] Michael Morgan, [facility] [place] [address] documented as of this encounter Goals Goal [...] Note: Practice STOP and Urge Surfing. Health Coin Box Collector will send hand-outs. Movement Lifestyle On track( 023 1:14 PM EDT) Riddhi Buchanan RD Note: Continue to walk stairs and walks when can. Will continue using stairs as it's colder. Look into finding weights free online or at [employer] stores. Could use water-filled milk jugs as weights-a full gallon jug would be 8 lbs. Will look into nearby rec center 04/16/22 NATHALIA documented as of this encounter Visit Diagnoses Not on filedocumented in this encounter Care Teams Wharf Tender Head Relationship Specialty Start Date End Date Lia Pearson APRN [address] [place] [address] PCP - General Geriatric Medicine 02/09/22 documented as of this encounter
--- OUTSIDE RECORDS SUMMARY | 2023-11-26 19:31 | XMS_ITS | Encounter Summary ---
Author Organization [facility] [place] [address] Care Team Providers Care Statistical Modeler Name Role Phone Lia Pearson QUALITY WORKER Primary Care Provider Encounter Details Date Type Department Care Team (Latest Contact Info) Description 06/09/2022 12:00 PM EST TH Visit (TeleHealth) [place] [address] Raisa Vallejo, PhD [facility] [place] [address] Schizoaffective disorder, unspecified type Social History Tobacco [...] Progress Notes * Raisa Vallejo, PhD - 06/09/2022 12:00 PM EST [facility] BARI[facility] PSYCHOLOY FOLLOW UP NOTE N [facility] WEIGHT AND WELLNESS AT [facility] [address] Dept: [phone] Loc: [phone] 06/09/2022 12:05 PM Zenia Wolrey is a 32 y.o. female who was [...] visit they were located at home in [place]. Zenia Worley is aware that for any urgent matter they can call [phone].. RECOMMENDATION BASED ON PSYCHOLOGICAL EVALUATION YELLOW - Based on the information gathered during this assessment, Zenia Worley would benefit fromadditional health behavior change before she is ready to proceed with surgery. Specifically, Karanould benefit from the following to assist with preparing for bariatric surgery: ?? Continue engaging in health promoting behaviors ?? Continue to work with your psychiatrist on medication changes The follow up plan is as follows: 6 wks. Asked Zenia to have her psychiatrist send a copy of the office note to this provider. Discussed concerns re: medication changes too close to surgery and the importance of having a period of stability before surgery. Informed Zenia that this provider would also review her case with psychiatry colleagues to get consensus on next steps. SUMMARY The decision noted above is based on the followin. Zenia has made significant weight loss attempts in the past, but without lasting success. 2. Zenia experienced marked mental health problems in the past year. 3. Zenia experienced marked mental health problems earlier in life. 4. Zenia is not engaging in problematic eating behaviors. 5. Zenia is not knowledgeable about the surgery and related risks. 6. Zenia's motivation for surgery is: good 7. Zenia's social support is: fair but improving. Has established a care plan with a local friend 8. Zenia is aware of expected surgery weight loss with surgery. 9. Zenia is aware of the habit changes that will need to occur and is actively engaged in changingthose now. 10. Zenia does not have a history of adherence/attendance issues. DIAGNOSIS Schizoaffective disorder PTSD The above assessment and plan was based on the following information obtained during the appointment. Please note section in blue indicates updated information from the previous evaluation: WEIGHT Initial Weight: 432 lbs Weight at previous evaluation: 415 lbs Weight at previous evaluation: 427 lbs Current weight is: 425 (per PCP visit in April) Weight changes since evaluation: has fluctuated ?? PROBLEM EATING BEHAVIORS From previous evaluation: No previously identified concerns ?? 04/15/2022: Patient reported her weight gain may be related to her increased insulin and Seroquel because she does not believe her eating habits have changed since our last visit. She is discussing a medication change (switching from Seroquel to Thorazine) with her psychiatrist, though they have not switched over at this time. Will likely make the switch next week. 06/09/2022: Not reviewed ?? POST SURGERY EATING HABIT CHANGES AND READINESS From previous evaluation: No previously identified concerns ?? 04/15/2022: Patient reported maintaining all bariatric habit changes, including eating slowly, eating and drinking, increasing protein. She stated she has been getting 3 eating episodes/day with 1-2 snacks very regularly. 06/09/2022: Not reviewed CURRENT SOCIAL SUPPORT NETWORK Patient reported she has been working to make more connections and build a support system. She shared that she has been regularly spending time with Yoko, a woman she knows through the assisted wherejoana previously lived and who helped her find her apartment - getting together every weekend for thest month and a half. Yoko may be willing to provide post-surgical support and has a background in mental health. Patient also stated one other neighbor, who is a bit older, who could also check in (a couple floors above her). Patient has told this neighbor about her plans for bariatric surgery and neighbor would be willing to sit with her, help with groceries, etc. 06/09/2022 Family continues to not support her in pursuing surgery. Has spoken to her sister who is not supportive of having this surgery. This sister has been against other medical interventions in the past but became supportive when she saw the positive impact it had on Zenia. Has spoken to her friend Yoko who agreed to help check-in on her post-surgery. ?? 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 She reported talking to her therapist about those bad days - didn't let them ruin my whole week. She stated her hallucinations have felt more manageable, denied any significant auditory or visual hallucinations recently. ?? She reported her psychiatrist changed again and she is working with a new provider, GLORY Figueroa at [facility] - planning to switch her from Seroquel to Thorazine d/t weight gain. ?? She denied any new or worsened sources of stress. She shared that she had a birthday a couple weeksago, and birthdays are typically difficult but she sought support from a friend and went to a movie. ?? Coping skills: social support from mom, sister, and friend, plays video games online with her nephews, watching movies and discussing them with her sister. She also reported going for a walk sometimes. Reported sometimes she loses interest in coping skills. ?? At the initial evaluation patient reported ongoing, active PTSD symptoms that interfere with there functioning and had not improved much with months of therapy. She also reported symptoms of depression, panic attacks with agoraphobia, and psychotic symptoms (daily auditory and visual hallucinations). She has a history of more severe psychiatric illness including several hospitalizations, most recently in 2019. She reported her mood has been more stable since moving from [place], where situational stressors contributed to her emotional instability. At the time of the previous visit I discussed with patients my concerns about her mental health stability following surgery, particularly withsuch low amounts of local social support. 06/09/2022 Zenia reported that she has been doing well. Zenia reported that she has been feeling less hungryrecently. As a consequence has noticed that she is eating slightly less. Continues to focus on having protein at each meal; although thinks she might be eating a little less protein than before. Overall is doing well mental health [place]. 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 Set a goal to increase her socialization and she has been working with her team to do more social activities - e.g., watch a movie with a group, went to the movies recently. Meeting with psychiatrist on 06/15 to discuss medication changes. Two incidents of auditory hallucinations - called her sister when this occurred who coaches her well through these experiences. Last episode was 06/05 and then the first incident occurred a week before. One event occurred after a stressful experience where she couldn't getin contact with her mom for several days; the other occurred after studying to be a Jehovah Witnesswhich triggered her. 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 Has decided that this is not something she actually wants her to pursue. ?? MENTAL HEALTH PROVIDER COMMUNICATION (IF NEEDED) Done on 03/19/2022, see Telephone Encounter Note ?? HEALTH BEHAVIORS From previous evaluation: ETOH:?None now, June was her last drink - stated prior to June she was drinking every day.??She denied any noticeable withdrawal symptoms. She endorsed drinking starting in the early afternoon, hard liquor, 3-4oz/day. She stated she talked to her therapist about this and felt she was spending too much money on it Drugs:?denied Nicotine:?denied Caffeine:?0??cups/day - occasional coffee ?? 04/15/2022: ETOH: none; she reported feeling proud of herself on her birthday, as she has spent the last few years' birthdays drinking alone - did not even feel tempted this year and did other activities instead. She reported talking to one of her spiritual aunts, friend - went to the movies, prayed. She denied any ongoing cravings - sees how much money she is saving monthly from not buying ETOH. 06/09/2022: ETOH: none. ?? ADHERENCE AND ATTENDANCE From previous evaluation: No previous concerns but not fully assessed. ?? 04/15/2022: Sleep Apnea? Yes If yes, Night per week using CPAP: 7 ?? Medication adherence - how many days in the past 7 did you miss any of your medications?: 0 - uses an alarm ?? 06/09/2022: Not reviewed The assessment and plan for Zenia Worley are detailed at the beginning of this report. documented in this encounter Plan of Treatment Upcoming Encounters Date Type Department Care Team (Late st Contact Info) Description 12/30/2023 2:45 PM EDT TH Visit (TeleHealth) [place] [address] Michael Morgan, [facility] [place] [address] documented as of this encounter Goals Goal Patient Goal Type Associated Problems Recent Progress Patient-Stated? Author Other (Enter personal goal) Lifestyle On track( 023 1:14 PM EDT) Riddhi Buchanan RD Note: -Add peanut butter to oatmeal -Continue to add beans to meals as a source of protein and fiber -If can, buy fresh vegetables and fruit from [employer] [place] market-sent message with resources -Choose whole grain [...] Note: Practice STOP and Urge Surfing. Health Oil Well Cable Tool Driller will send hand-outs. Movement Lifestyle On track( 023 1:14 PM EDT) Riddhi Buchanan RD Note: Continue to walk stairs and walks when can. Will continue using stairs as it's colder. Look into finding weights free online or at [employer] stores. Could use water-filled milk jugs as weights-a full gallon jug would be 8 lbs. Will look into nearby [facility] center 04/16/22 NATHALIA documented as of this encounter Visit Diagnoses Diagnosis Schizoaffective disorder, unspecified type documented in this encounter Care Teams Statistical Modeler Relationship Specialty Start Date End Date Lia Pearson APRN [address] [place] [address] PCP - General Geriatric Medicine 02/09/22 documented as of this encounter
--- OUTSIDE RECORDS SUMMARY | 2023-11-26 19:31 | XMS_ITS | Encounter Summary ---
Author Organization [facility] [place] [address] Care Team Providers Care Ramp Supervisor Name Role Phone Lia Pearson APRN Primary Care Provider [phone] Encounter Details Date Type Department Care Team (Late st Contact Info) Description 09/25/2022 Telephone Obstetrics [place] [address] Debby Keen Social History Tobacco Use Types Packs/Day Years [...] EDT TH Visit (TeleHealth) Interventional [place] [address] Michael Morgan, [facility] [place] [address] documented as of this encounter Goals Goal [...] Note: Practice STOP and Urge Surfing. Health Track Machine Operator Repairer will send hand-outs. Movement Lifestyle On track( 023 1:14 PM EDT) Riddhi Buchanan RD Note: Continue to walk stairs and walks when can. Will continue using stairs as it's colder. Look into finding weights free online or at [employer] stores. Could use water-filled milk jugs as weights-a full gallon jug would be 8 lbs. Will look into nearby rec center 04/16/22 NATHALIA documented as of this encounter Visit Diagnoses Not on filedocumented in this encounter Care Teams Ramp Supervisor Relationship Specialty Start Date End Date Lia Pearson APRN [address] [place] [address] PCP - General Geriatric Medicine 02/09/22 documented as of this encounter
--- OUTSIDE RECORDS SUMMARY | 2023-11-26 19:31 | XMS_ITS | Encounter Summary ---
Author Organization [facility] Address [facility] [place] [address] Care Team Providers Care Law Enforcement Officer Name Role Phone Lia Pearson APRN Primary Care Provider [phone] Encounter Details Date Type Department Care Team (Late st Contact Info) Description 06/02/2022 Notes Only Weight and Wellness at [address] [address] Jenni Waller MD [facility] [address] [facility] [place] [address] Social History Tobacco Use Types Packs/Day Years Used Date Smoking Tobacco: Former Smokeless Tobacco: Never Alcohol Use Standard Drinks/Week Comments Not Currently 0 (1 standard drink = 0.6 oz pur e alcohol) Sex and Gender Information Value Date Recorded Sex Assigned at Not on file Gender Identity Not on file Sexual Orientation Not on file documented as of this encounter Progress Notes * Jenni Waller MD - 06/02/2022 4:[address] Mast from [facility] contacted me. (Transferred to her care from Dr. Beach who patient advised me to call). She will work on tapering Seroquel when she sees her on 06/15 and transitioning her to Geodon (or I also suggested Abilify) which is less obesogenic. documented in this encounter Plan of Treatment Upcoming Encounters Date Type Department Care Team (Late st Contact Info) Description 12/30/2023 2:45 PM EDT TH Visit (TeleHealth) Interventional Radiology at [facility] [place] [address] Michael Morgan, DO [facility] [place] [address] documented as of this encounter Goals Goal Patient Goal Type Associated Problems Recent Progress Patient-Stated? Author Other (Enter personal goal) Lifestyle On track( 023 1:14 PM EDT) No Riddhi Wilson RD Note: -Add peanut butter to oatmeal -Continue to add beans to meals as a source of protein and fiber -If can, buy fresh vegetables and fruit from [employer] market-sent message with resources -Choose whole grain [...] Note: Practice STOP and Urge Surfing. Health Heel Nailing Machine Operator will send hand-outs. Movement Lifestyle On track( 023 1:14 PM EDT) Riddhi Buchanan RD Note: Continue to walk stairs and walks when can. Will continue using stairs as it's colder. Look into finding weights free online or at [employer] stores. Could use water-filled milk jugs as weights-a full gallon jug would be 8 lbs. Will look into nearby rec center 04/16/22 NATHALIA documented as of this encounter Visit Diagnoses Not on filedocumented in this encounter Care Teams Law Enforcement Officer Relationship Specialty Start Date End Date Lia Pearson APRN [address] [place] [address] PCP - General Geriatric Medicine 02/09/22 documented as of this encounter
--- OUTSIDE RECORDS SUMMARY | 2023-11-26 19:31 | XMS_ITS | Encounter Summary ---
Author Organization [facility] [place] [address] Care Team Providers Care Game Master Name Role Phone Lia Pearson APRN Primary Care Provider [phone] Encounter Details Date Type Department Care Team (Late st Contact Info) Description 07/17/2022 Orders Only [place] [address] Jenni Waller MD [facility] [address] [facility] [place] [address] Vitamin D deficiency Social History Tobacco Use Types Packs/Day Years [...] EDT TH Visit (TeleHealth) [place] [address] Michael Morgan, [facility] [place] [address] documented as of this encounter [...] Note: Practice STOP and Urge Surfing. Health Railroad Track Inspector will send hand-outs. Movement Lifestyle On track( 1:14 PM EDT) Riddhi Buchanan RD Note: Continue to walk stairs and walks when can. Will continue using stairs as it's colder. Look into finding weights free online or at [employer] stores. Could use water-filled milk jugs as weights-a full gallon jug would be 8 lbs. Will look into nearby [facility] 04/16/22 NATHALIA documented as of this encounter Visit Diagnoses Diagnosis Vitamin D deficiency Unspecified vitamin D deficiency documented in this encounter Care Teams Game Master Relationship Specialty Start Date End Date Lia Pearson APRN [address] [place] [address] PCP - General Geriatric Medicine 02/09/22 documented as of this encounter
--- OUTSIDE RECORDS SUMMARY | 2023-11-26 19:31 | XMS_ITS | Encounter Summary ---
Author Organization [facility] [place] [address] Care Team Providers Care Pad Tufter Name Role Phone Lia Pearson LEARNING CENTER COORDINATOR Primary Care Provider [phone] Encounter Details Date Type Department Care Team (Latest Contact Info) Description 07/21/2022 12:00 PM EST TH Visit (TeleHealth) [place] [address] Raisa Vallejo, PhD [facility] [place] [address] Schizoaffective disorder, unspecified type Social History Tobacco [...] Progress Notes * Raisa Vallejo, PhD - 07/21/2022 12:00 PM EST [facility] BARIATRIC SURGERY PSYCHOLOY FOLLOW UP NOTE N [facility] WEIGHT AND WELLNESS AT [facility] [address] Dept: [phone] Loc: [phone] 07/21/2022 12:06 PM Zenia Worley is a 32 y.o. female [...] visit they were located at home in [place]. Zenia Worley is aware that for any urgent matter they can call [phone].. RECOMMENDATION BASED ON PSYCHOLOGICAL EVALUATION YELLOW - Based on the information gathered during this assessment, Zenia Worley would benefit fromadditional health behavior change before she is ready to proceed with surgery. Specifically, Karanould benefit from the following to assist with preparing for bariatric surgery: ?? Continue engaging in health promoting behaviors The follow up plan is as follows: Will follow up with Zenia once I hear back re: caloric requirements of All. SUMMARY The decision noted above is based on the followin. Zenia has made significant weight loss attempts in the past, but without lasting success. 2. Zenia experienced marked mental health problems in the past year. 3. Zenia experienced marked mental health problems earlier in life. 4. Zenia is not engaging in problematic eating behaviors. 5. Zenia is knowledgeable about the surgery and related risks. 6. Zenia's motivation for surgery is: good 7. Zenia's social support is: good 8. Zenia is aware of expected surgery [...] WEIGHT Initial Weight: 432lbs Weight at previous evaluation:??415??lbs Weight at previous evaluation:??427??lbs Weight at previous evaluation:??425??lbs Current Weight as of 06/18/22: 426 lbs Weight changes since evaluation: has been stable MENTAL HEALTH UPDATE: On 06/15, started tapering down off of seroquel. Current psych meds are Geodon, Abilify, prazosin and trazodone. Has not had any new visual or auditory hallucinations. MENTAL HEALTH PROVIDER COMMUNICATION (IF NEEDED) Received fax number for primary mental health [...] will follow up when I know more. The assessment and plan for Zenia Worley are detailed at the beginning of this report. documented in this encounter Plan of Treatment Upcoming Encounters Date Type Department Care Team (Late st Contact Info) Description 12/30/2023 2:45 PM EDT TH Visit (TeleHealth) [place] [address] Michael Morgan, [facility] [place] [address] documented as of this encounter Goals Goal Patient Goal Type Associated Problems Recent Progress Patient-Stated? Author Other (Enter personal goal) Lifestyle On track( 023 1:14 PM EDT) Riddhi Buchanan RD Note: -Add peanut butter to oatmeal -Continue to add beans to meals as a source of protein and fiber -If can, buy fresh vegetables and fruit from [employer] market-sent message with resources -Choose whole grain [...] Note: Practice STOP and Urge Surfing. Health Technical Inspector will send hand-outs. Movement Lifestyle On track( 023 1:14 PM EDT) Riddhi Buchanan RD Note: Continue to walk stairs and walks when can. Will continue using stairs as it's colder. Look into finding weights free online or at [employer] stores. Could use water-filled milk jugs as weights-a full gallon jug would be 8 lbs. Will look into nearby rec center 04/16/22 NATHALIA documented as of this encounter Visit Diagnoses Diagnosis Schizoaffective disorder, unspecified type documented in this encounter Care Teams Pad Tufter Relationship Specialty Start Date End Date Lia Pearson APRN [address] [place] [address] PCP - General Geriatric Medicine 02/09/22 documented as of this encounter
--- OUTSIDE RECORDS SUMMARY | 2023-11-26 19:31 | XMS_ITS | Encounter Summary ---
[place] [address] Care Team Providers Care Investment Counselor Name Role Phone LiliCassiusLiamark BUNCH Primary Care Provider [phone] Reason for Visit * Auth/Cert (Routine) Specialty Diagnoses / Procedures Referred By Della kern Referred To Contact Diagnoses Vaginal bleeding Vaginal bleeding Vicky Brooks MD [facility] OBSTETRICS & [place] [address] [facility] Referral ID Status Reason Start Date Expiration Date Visits Re quested Visits Authorized [id number] 1 1 Encounter Details Date Type Department Care Team (Late st Contact Info) Description 10/13/2022 7:18 PM EDT [place] [address] Jackson Michelle MD [facility] [place] [address] [place] [address] Anesthesia Record Procedure Summary Procedure Name Responsible Anesthesiologist Anesthesia Start Time Anesthesia Stop Time RADIOFREQUENCY ABLATION Jackson Michelle MD 191710/13/222127 Events Date Time Event Comment 10/13/20221916 AN Verify 191 Start 1918 An Start Data 1928 An Induction 1930 An Intubation 1932 Anesthesia Ready 2013 Procedure Start 2109 Extubation/LMA Out 2117 an stop data 2127 Recovery or ICU Handoff Isaura ent care was transferred to the destination unit staff after review of the patient's medical history, current anesthetic/surgical status and plan, according to the Provider Handoff Checklist. 2127 Stop Meds Name Total Propofol 430 mg Rocuronium 80 mg PHENYLephrine 240 mcg Ondansetron 4 mg Succinylcholine 200 mg Labetalol 10 mg Sugammadex 400 mg dextrose 10% infusion 0 mL Lactated Ringers 1,000 mL * Agents Name O2 Air N2O Sevoflurane (et) * Blood No blood administrations on file. Lines, Drains, and Airways Type Details Placement Removal (RETIRED) Peripheral IV Line - Single Lumen 03/03/22; 0725; median cubital vein (antecubital fossa), right; 20 gauge; Maged Samson; LDA not present upon assessment; 10/14/22; 201503/03/22 0725 by Danelle Morris RN 10/14/222015 by Joselin Joseph LNA (RETIRED) Peripheral IV Line - Single Lumen 03/03/22; 0821; dorsal arch vein (top of hand), left; [id number]-[id number] catheter system; Ultrasound Guidance; 20 gauge; darshana gao; tolerated well; LDA not present upon assessment; 10/14/22; 201503/03/22 0821 by Bo Gao MD 10/14/222015 by Joselin Joseph LNA Incision 03/03/22; 0833; midl ine; vagina; other (see comments); hyesteroscopy; 06/05/23; 1002 03/03/22 0833 by Sadiq Whyte RN 06/05/23 1002 by Gustabo Russ RN (RETIRED) Peripheral IV Line - Single Lumen 10/13/22; (CHIEF OPERATING OFFICER); median cubital vein (antecubital fossa), left; 18 gauge; CHIEF OPERATING OFFICER; 10/15/22; 1542 10/13/22 0000 by Estephania Baird RN 10/15/22 1542 by Kaya Godfrey RN (RETIRED) Peripheral IV Line - Single Lumen 10/13/22; (CHIEF OPERATING OFFICER); dorsal arch vein (top of hand), right; 20 gauge; CHIEF OPERATING OFFICER; 10/14/22; 201410/13/22 0000 by Estephania Baird RN 10/14/222014 by Joselin Joseph LNA ETJerry Mask Ventilation: No t Attempted (0); ETT Type: Cuffed, Oral; ETT Size: 7.5 mm; Mac Blade: 3; Notes: Asleep, Pre-O2, RSI; Attempts: 1; Laryngoscopy Grade: 1; ETT Placement Verified By: Auscultation, Capnometry; Secured at Teeth: 25 cm; Inserted by: HAFSA; Removal Date: 10/13/22; Removal Time: 210910/13/221930 by Kyler Godfrey CRNA 10/13/222109 by Kyler Godfrey CRNA Urethral Catheter 10/13/22; 1952; Surg jose longer than 2 hours, Genitourinary surgery; Immobility without alternative; indwelling single lumen catheter; 100% silicone; 14; inserted at this facility; 1; 10; 10; none; drainage bag; 10/14/22; 1150 10/13/221952 by Deneen Grider RN 10/14/221149 by Prabha De Souza RN Incision 10/13/22; 2011; Left , anterior; wrist; non-laparascopic puncture; Snuffbox access for [place] MD Margarita Morrison; 06/05/23; 1002 10/13/222011 by Deneen Grider RN 06/05/23 1002 by Gustabo Russ RN documented in this encounter Social History [...] OR Notes * Anesthesia Postprocedure Evaluation - Jackson Michelle MD - 10/13/2022 9:51 PM EDT Department of Anesthesiology Post-procedure Note Patient: Zenia Worley Procedure Summary Date: 10/13/22 Room / Location: [facility] INTERVENTIONAL RADIOLOGY 2 / [facility] Anesthesia Start: 1917 Anesthesia Stop: 2127 Procedure: RADIOFREQUENCY ABLATION Diagnosis: (.) Surgeons: Pradip Avila MD Responsible Provider: Jackson Michelle MD Anesthesia Type: general ASA Status: 3 - Emergent All Anesthesia Providers: Anesthesiologist: Jackson Michelle MD WEB APPLICATIONS ARCHITECT: Kyler Godfrey CRNA Vitals Value Taken Time BP 100/50 10/13/222145 Temp 36 ??C (96.8 ??F) 10/13/222125 Pulse 118 10/13/222150 Resp 22 10/13/222150 SpO2 95 % 10/13/222150 Pain Level Vitals shown include unvalidated device data. Patient Location: PACU/[facility] Level of Consciousness: Conscious but Sleepy Pain Management: Satisfactory Analgesia PONV: None Cardiovascular Status: Hemodynamically Stable Respiratory Status: Stable Respiratory Status Postoperative Fluid Status: Intravascular EUvolemia Possible Anesthetic Complications: NONE apparent at time of evaluation Final Primary Anesthesia Type: General (The anesthetic type performed was the same as planned.) Comments: * Anesthesia Preprocedure Evaluation - Jackson Michelle MD - 10/13/2022 7:11 PM EDT Pre-Anesthesia Evaluation for: Zenia Worley a 32 y.o. female. Procedure(s): RADIOFREQUENCY ABLATION Patient Active Problem List Diagnosis Date Noted ??? *Vaginal bleeding 10/13/2022 ??? Class 3 severe obesity with body mass index (BMI) of 60.0 to 69.9 in adult 02/20/2022 ??? Vitamin D deficiency 02/18/2022 ??? Insomnia 12/19/2021 ??? Essential hypertension, benign 09/26/2021 ??? Long-term insulin use 09/26/2021 ??? prison 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 09/26/2021 ??? Mixed hyperlipidemia 02/26/2021 ??? R[place] (obstructive sleep apnea) 02/26/2021 ??? Other specified hypothyroidism 02/26/2021 ??? PTSD (post-traumatic stress disorder) 02/26/2021 ??? Schizoaffective disorder 02/26/2021 ??? Type 2 diabetes mellitus with hyperglycemia, with long-term current use of insulin 02/26/2021 Past Medical History: Diagnosis Date ??? Anemia ??? Angina pectoris ??? Asthma ??? Bleeding disorder ??? Cellulitis and abscess of buttock 12/2017 immobilized after panic induce seizure, developed bedsore, flesh eating bacteria, debridement, exposed tailbne, 6 months to heal ??? Chronic anxiety ??? CPAP (continuous positive airway pressure) dependence ??? Diabetes ??? Difficult intubation ??? Gastroesophageal reflux ??? High blood pressure ??? Hyperlipidemia ??? Hypothyroid ??? Irregular heart beat ??? Motion sickness ??? Obstructive sleep apnea ??? Seizure ??? Spinal paralysis ??? Transfusion history Past Surgical History: Procedure Laterality Date ??? CHG CYTOPATH,CERV/VAG,AUTO THIN LAYER,INTERP N/A 03/03/2022 PAP SMEAR UNDER ANESTHESIA performed by Sabrina Swain MD at [facility] OR ??? PRG ECHOGRAPHY TRANSVAGINAL NON-OB Midline 03/03/2022 ULTRASOUND, TRANSVAGINAL (WRVU 0.69) performed by Sabrina Swain MD at [facility] OR ??? PRO HYSTEROSCOPY, W/ENDO BX N/A 03/03/2022 HYSTEROSCOPY, SURG W/ENDOMETRIAL SAMPLING, POLYPECTOMY (WRVU 4.74) performed by Sabrina Swain MD [facility] OR ??? PRO INSERT INTRAUTERINE DEVICE N/A 03/03/2022 INSERTION OF IUD, VAGINAL APPROACH (WRVU 1.01) performed by Sabrina Swain MD at [facility] OR ??? PRO PELVIC EXAMINATION W ANESTH N/A 03/03/2022 PELVIC EXAM UNDER ANESTHESIA (WRVU 1.75) performed by Sabrina Swain MD at [facility] OR Social History Tobacco Use ??? Smoking status: Former ??? Smokeless tobacco: Never Substance Use Topics ??? Alcohol use: Not Currently Social History Substance and Sexual Activity Drug Use Never Allergies Allergen Reactions ??? Fluoxetine Affected glucose level Medications: MAR and/or home medications have been reviewed. Physical Exam: Preprocedure Vitals Current as of 10/13/22 1911 BP: 119/58 Pulse: 96 Resp: 17 SpO2: 98 Temp: 36.7 ??C (98.1 ??F) Height: 154.9 cm (5' 1) (10/13/22) Weight: 185.1 kg (408 lb) (10/13/22) BMI: 77.08 IBW: 47.8 kg (105 lb 4.8 oz) Last edited 10/13/221899 by JOSÉ Currently displaying vitals information from multiple entries within 180 minutes of most recent vitals. Airway Assessment: Mallampati: III Cardiovascular Assessment: Rhythm: regular Rate: abnormal Pulmonary Assessment: pulmonary exam normal Dental Assessment: Misc Assessment: Last Filed Perioperative Cognitive Screening None Anesthesia Plan: ASA 3 emergent general, with a(n) intravenous induction 32 yr old F pmhx morbid obesity (BMI 77), heart failure (no ECHO, on lasix), T2DM on insulin (Glu 1840 79) presenting for angiograms in IR for uterine bleeding. S/p 4u pRBC, most recent Hb 8.3, BP stable with HR 90s. 28 and 20g PIVs in place. anest in past notable for difficult airway on problme list however most recently easy mask and DL1 Grade 1 with mac 3 with proper positioning. Planning GETA. Denies , declines test. Region - Other Informed Consent: Anesthetic plan and risks discussed with patient. Use of blood products discussed with patient who consented to blood products. Plan discussed with WEB APPLICATIONS ARCHITECT. Anesthesia Screening documented in this encounter Miscellaneous Notes * Addendum Note - Indra Lopez MD - 10/13/2022 10:03 PM EDT Addendum created 10/13/222202 by Indra Lopez MD Order list changed * Addendum Note - Indra Lopez MD - 10/13/2022 10:01 PM EDT Addendum created 10/13/222200 by Indra Lopez MD Order list changed documented in this encounter Plan of Treatment Upcoming Encounters Date Type Department Care Team (Late st Contact Info) Description 12/30/2023 2:45 PM EDT TH Visit (TeleHealth) Interventional Radiology at [facility] [place], [facility] [place] [address] Michael Morgan, [facility] [place] [address] documented as of this encounter Goals Goal Patient Goal Type Associated Problems Recent Progress Patient-Stated? Author Other (Enter personal goal) Lifestyle On track( 023 1:14 PM EDT) Riddhi Buchanan RD Note: -Add peanut butter to oatmeal -Continue to add beans to meals as a source of protein and fiber -If can, buy fresh vegetables and fruit from [employer] market-sent message with resources -Choose whole grain [...] sippie cup Self-awareness, body cues Lifestyle No Doretha-Param, Davidson Note: Practice STOP and Urge Surfing. Health Rod Puller will send hand-outs. Movement Lifestyle On track( 023 1:14 PM EDT) Riddhi Buchanan RD Note: Continue to walk stairs and walks when can. Will continue using stairs as it's colder. Look into finding weights free online or at [employer] Could use water-filled milk jugs as weights-a full gallon jug would be 8 lbs. Will look into nearby [facility] center 04/16/22 NATHALIA documented as of this encounter Visit Diagnoses Not on filedocumented in this encounter Administered Medications Inactive Administered Medications - up to 3 most recent administrations Medication Order MAR Action Action Date Dose Rate Site dextrose 10% infusion 50 mL/hr, Intravenous, CONTINUOUS, Starting on Wed10/13/22 at 1648, Until Wed10/14/22 at 0110 Rate/Dose Change 10/13/2022 7:18 PM EDT 50 mL/hr New Bag 10/13/2022 4:52 PM EDT 50 mL/hr 50 mL/hr labetaloL (Normodyne) (5 mg/mL) multi-dose injection Intravenous, PRN, Starting on Wed10/13/22 at 2038, Until Wed10/13/22 at 2149, Anesthesia Intra-op, Routine Given 10/13/2022 8:39 PM EDT 10 mg lactated ringers infusion Intravenous, CONTINUOUS PRN, Starting on Wed10/13/22 at 1918, Until Wed10/13/22 at 2149, Anesthesia Intra-op New Bag 10/13/2022 7:18 PM EDT ondansetron (pf) (Zofran) (2 mg/mL) injection Intravenous, PRN, Starting on Wed10/13/22 at 2058, Until Wed10/13/22 at 2149, Anesthesia Intra-op, Routine Given 10/13/2022 8:59 PM EDT 4 mg PHENYLephrine in NS (PF) (JANE-SYNEPHRINE) 0.8 mg/10 mL (80 mcg/mL) multi-dose injection Syringe Intravenous, PRN, Starting on Wed10/13/22 at 1929, Until Wed10/13/22 at 2150, Anesthesia Intra-op, Routine Given 10/13/2022 7:29 PM EDT 240 mcg propofoL (Diprivan) 10 mg/mL bolus injection (Anesthesia) Intravenous, PRN, Starting on Wed10/13/22 at 1927, Until Wed10/13/22 at 2150, Anesthesia Intra-op Given 10/13/2022 8:13 PM EDT 50 mg Given 10/13/2022 7:29 PM EDT 300 mg Given 10/13/2022 7:27 PM EDT 80 mg rocuronium (Zemuron) (10 mg/mL) multi-dose injection Intravenous, PRN, Starting on Wed10/13/22 at 1935, Until Wed10/13/22 at 2150, Anesthesia Intra-op, Routine Given 10/13/2022 8:09 PM EDT 30 mg Given 10/13/2022 7:35 PM EDT 50 mg succinylcholine (Anectine;Quelicin) (20 mg/mL) injection Intravenous, PRN, Starting on Wed10/13/22 at 1929, Until Wed10/13/22 at 2150, Anesthesia Intra-op, Routine Given 10/13/2022 7:29 PM EDT 200 mg sugammadex (Bridion) 100 mg/mL injection Intravenous, PRN, Starting on Wed10/13/22 at 2103, Until Wed10/13/22 at 215, Anesthesia Intra-op, Routine Given 10/13/2022 9:03 PM EDT 400 mg documented in this encounter Care Teams Investment Counselor Relationship Specialty Start Date End Date Lia Pearson APRN [address] [place] [address] PCP - General Geriatric Medicine 02/09/22 documented as of this encounter
--- OUTSIDE RECORDS SUMMARY | 2023-11-26 19:31 | XMS_ITS | Encounter Summary ---
Author Organization [facility], Located Within [facility] [place] [address] Care Team Providers Care Staff Cytotechnologist Name Role Phone Lia Pearson APRN Primary Care Provider [phone] Encounter Details Date Type Department Care Team (Late st Contact Info) Description 10/13/2022 2:25 PM EDT Ancillary Procedure [place] [address] Sabrina Swain MD [facility] OBSTETRICS [place] [address] Social History Tobacco Use Types Packs/Day Years [...] EDT TH Visit (TeleHealth) [place] [address] Michael Morgan DO [facility] [place] [address] documented as of this encounter Goals Goal Patient Goal Type Associated Problems Recent Progress Patient-Stated? Author Other (Enter personal goal) Lifestyle On track( 1:14 PM EDT) Riddhi Buchanan RD Note: -Add peanut butter to oatmeal -Continue to add beans to meals as a source of protein and fiber -If can, buy fresh vegetables and fruit from [employer]-sent message with resources -Choose whole grain [...] Note: Practice STOP and Urge Surfing. Health Factory Manager will send hand-outs. Movement Lifestyle On track( 1:14 PM EDT) Riddhi Buchanan RD Note: Continue to walk stairs and walks when can. Will continue using stairs as it's colder. Look into finding weights free online or at [employer] stores. Could use water-filled milk jugs as weights-a full gallon jug would be 8 lbs. Will look into nearby [facility] center 04/16/22 documented as of this encounter Procedures Procedure Name Priority Date/Time Associated Diagnosis Comments FILM LIBRARY STORAGE ONLY ULTRASOUND STUDY Routine 10/13/2022 2:21 PM EDT documented in this encounter Results * Film Library- Storage Only Ultrasound Study (10/13/2022 2:21 PM EDT) Narrative MADYSON - 10/13/2022 2:21 PM EDT This exam is auto-finalizing. It's purpose is for storage only. Sabrina Swain MD IMG FILM LIBRARY ORD ERABLES [place], [place] documented in this encounter Visit Diagnoses Not on filedocumented in this encounter Care Teams Staff Cytotechnologist Relationship Specialty Start Date End Date Lia Pearson APRN [address] [place] [address] PCP - General Geriatric Medicine 02/09/22 documented as of this encounter
--- OUTSIDE RECORDS SUMMARY | 2023-11-26 19:31 | XMS_ITS | Encounter Summary ---
Author Organization [facility] [place] [address] Care Team Providers Care Railroad Track Mechanic Name Role Phone Lia Pearson APRN Primary Care Provider [phone] Reason for Visit * Reason Comments Vaginal Bleeding Since Th * Auth/Cert (Routine) Specialty Diagnoses / Procedures Referred By Contac t Referred To Contact Diagnoses Vaginal bleeding Vaginal bleeding Mau Marks MD [facility] OBSTETRICS & [place] [address] [facility] Referral ID Status Reason Start Date Expiration Date Visits Re quested Visits Authorized [id number] 1 1 Encounter Details Date Type Department Care Team (Late st Contact Info) Description 10/13/2022 7:05 PM EDT - 10/13/2022 7:53 [place] [address] Pradip Avila MD [facility] [place] [address] RADIOFREQUENCY ABLATION Social History Tobacco Use Types Packs/Day Years [...] Sign Reading Time Taken Comments Blood Pressure 108/54 10/13/2022 7:08 PM EDT Pulse 101 10/13/2022 7:08 PM EDT Temperature 36.8 ??C (98.2 ??F) 10/13/2022 7:27 PM ED T Respiratory Rate 18 10/13/2022 7:08 PM EDT Oxygen Saturation 98% 10/13/2022 7:08 PM EDT Inhaled Oxygen Concentration - - Weight 185.1 kg (408 lb) 10/13/2022 4:34 PM EDT Height 154.9 cm (5' 1) 10/13/2022 4:34 PM EDT Body Mass Index 77.09 10/13/2022 4:34 PM EDT documented in this encounter Discharge Summaries * Marco Patel MD - 10/15/2022 3:25 PM EDT Images from the original note were not included. Discharge Summary Patient Name: Zenia Worley Patient Age: 32 y.o. Language: Cameroonian Race: Black or Ethnicity: Not nor Admit date: 10/13/2022 Discharge date and time: 10/15/2022 Attending Physician: No att. providers found Discharge Physician: Dr. Heath Follow-up Recommendations for Providers: -- Follow up outpatient with in [facility] clinic on 11/13/[address] Ahumada. -- Follow up with outpatient interventional radiology Inpatient Provider Contact Information: [facility], Phone number [phone] Discharge Diagnoses (Hospital Problems) and Secondary Diagnoses (Chronic Problems): Active Hospital Problems Diagnosis ??? Vaginal bleeding ??? Class 3 severe obesity with body mass index (BMI) of 60.0 to 69.9 in adult ??? RICHMOND (obstructive sleep apnea) ??? Type 2 diabetes mellitus with hyperglycemia, with long-term current use of insulin Resolved Hospital Problems No resolved problems to display. Active Non-Hospital Problems Diagnosis ??? Vitamin D deficiency ??? Insomnia ??? Essential hypertension, benign ??? Long-term insulin use ??? half-way 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 ??? Mixed hyperlipidemia ??? Other specified hypothyroidism ??? PTSD (post-traumatic stress disorder) ??? Schizoaffective disorder Operations/Major Procedures: 10/13/2022: IR guided uterine artery embolization History of Presentation: Zenia Worley is a 32 y.o. G0 with PMH significant for AUB, bleeding disorder, DM, IBS, hypothyroidism, hypertension, RICHMOND (on CPAP), non-specific chest pain, and BMI 72. She presented to [facility] today with dizziness and lightheadedness related to heavy vaginal bleeding. She was treated with blood transfusion and IV hydration and transported here for further care. ?? For her AUB, She underwent a EUA, TVUS, pap, hysteroscopy with myosure curettage, sharp curettage, and Mirena IUD placement on 03/03/[address] Swain. EUA: benign, uterus sounded to 12cm TVUS: 11cm uterus, 2.5 cm globally thickened and vascular endometrium. Normal ovaries. Hysteroscopy: enlarged cavity, global pathology Myosure and sharp curettage: progestin effect, chronic endometritis, no hyperplasia or malignancy Pap: NILM HPV neg ?? Zenia states that her bleeding following the procedure never fully resolved. She continued to havelight and intermittently heavy bleeding. She has been taking 5 mg Aygestin twice daily. She states that she is good at taking the oral medication. She additionally takes PO iron. She began to have markedly heavy bleeding on of last week (10/08/22). She describes heavy bleeding as going through a pack of depends underwear per day. There are 12 depends in a pack and she is soaking the underwear. ?? This morning she was feeling dizzy and short of breath yesterday. She began to feel increasingly fatigued. she would fall asleep sitting up, even when trying to keep herself awake. She thought that if she rested it would improve, but it hadn't when she awoke this morning. She called her [facility] in [facility] because she felt dizzy and lightheaded with just standing. She was instructed to present to medical care, so she then called an ambulance. ?? At [facility], they treated her bleeding with 2 U PRBC and TXA. Hgb was 8.9. Additionally recussitated with IV fluids. They performed a transabdominal US (patient does not tolerate transvaginal due to trauma history) and they did not see the IUD. ?? Upon arrival at [facility], she received an additional 3 units for her bleeding. She was noted to have continued heavy bleeding. The patient states that she continues to feel short of breath and extremelyfatigued. She additionally reported some mild chest pain. She is having some pain from lying flat at the site of her previous gluteal abscess drainage. No pelvic pain. ?? Zenia has always had heavy menses. She had a visit with a steam turbine operator at [facility], but was unable tocomplete the laboratory testing due to transportation. Prior studies were negative for vWF or factor 8 deficiency, though the steam turbine operator suggested repeating labs as these levels can flux. ?? She verbally consents to sharing medical information with her sister as a medical contact. ? Review of Systems: Review of Systems Constitutional: Positive for fatigue. Respiratory: Positive for chest tightness and shortness of breath. Cardiovascular: Positive for chest pain. Gastrointestinal: Negative for abdominal pain, nausea and vomiting. Genitourinary: Positive for vaginal bleeding. Negative for pelvic pain and vaginal pain. Skin: Positive for pallor. Negative for rash. Neurological: Positive for dizziness, weakness and light-headedness. Negative for syncope. Hematological: Does not bruise/bleed easily. Hospital Course: Zenia was admitted for management of hemorraghic shock in the setting of acute vaginal bleeding that resulted in hypotension. She recived IV Premarin, a total of 5 unit of packed red blood cells, and fluids. Shortly after admission she underwent IR guided uterine artery embolization that significantly improved her bleeding. During her admission she reported chest pain and had up trending troponin that peaked at 22 and trended down. Likely type 2 NSTEMI in the setting of hemorrhagic shock. Cardiology were consulted and they recommended an echo which was within normal limits and no further follow up was required. On HD#2 her bleeding has slowed down significantly and she exhibited improved clinical status. She was tolerating diet, her sierra was removed and she was ambulating independantly without lightheadedness or dizziness and she had no pain. She continued to be tachycardic to 120s inthe setting of baseline tachycardia, which improved after restarting home metoprolol. Her Aygestin dose was increased to 10 mg TID. On HD#3 she was stable for discharge and was discharged with a planto continue Aygestin 10mg TID and follow up with IR outpatient to further investigate rodent exterminator IR embolization options with a plan to follow up with [facility] clinic as noted above. Vital signs at Discharge: BP: (!) 154/95, Heart Rate: (!) 109, Temp: 36.8 ??C (98.2 ??F), Resp: 18, BMI (Calculated): 77.08 Height: 154.9 cm (5' 1) (10/13/22 1634) Weight: (!) 185.1 kg (408 lb) (10/13/22 1634) Functional and Cognitive status: Stable Important Studies and Lab Data: Labs: Last 3 wbc, hgb, hct plt Recent Labs 10/14/22 0821 10/14/22 0225 10/13/22 2245 WBC 11.8* 15.1* 15.4* HGB 9.5* 9.9* 9.2* HCT 28.5* 29.1* 27.8* PLATELET 278 288 272 Studies: Echocardiogram Pending Studies and Lab Data: NA Discharge Conditions/Prognosis: Good Discharge to: Home Updated Allergies/ADRs: Allergies Allergen Reactions ??? Fluoxetine Affected glucose level Immunizations Given this Hospitalization: There is no immunization history on file for this patient. Discharge Medications: Your Medications Continued medications with new dosing Dose Details norethindrone 5 mg tablet Commonly known as: Aygestin Take 2 tablets by mouth 3 times daily. What changed: ?? how much to take ?? when to take this 10 mg Quantity: 180 tablet Refills: 6 Continued medications, unchanged Dose Details acetaminophen 325 mg tablet Commonly known as: Tylenol Take 2 tablets by mouth every 4 hours as needed for Pain. 650 mg Quantity: 90 tablet Refills: 1 ARIPiprazole 15 mg tablet Commonly known as: Abilify Take 20 mg by mouth daily. 20 mg Refills: 0 BD AutoShield Duo Pen Needle 30 gauge x 3/16 Needle USE UP TO 5 PEN NEEDLES DAILY Generic drug: pen needle,diabetic dual safty Refills: 0 * chlorproMAZINE 50 mg tablet Commonly known as: Thorazine Take 50 mg by mouth as needed. 50 mg Refills: 0 * chlorproMAZINE 200 mg tablet Commonly known as: Thorazine Refills: 0 cyanocobalamin (vitamin B-12) 500 mcg tablet Commonly known as: Vitamin B-12 Take 1,000 mcg by mouth Daily. 1,000 mcg Refills: 0 doxepin 3 mg tablet Commonly known as: Silenor Take 3 mg by mouth nightly. 3 mg Refills: 0 ferrous gluconate 324 mg (38 mg iron) tablet Commonly known as: Ferate Take 324 mg by mouth 2 times daily. 324 mg Refills: 0 furosemide 40 mg tablet Commonly known as: Lasix Take 40 mg by mouth every morning. 40 mg Refills: 0 * gabapentin 300 mg capsule [...] OF LOW BLOOD SUGARARE CONTROLLED Refills: 0 Jardiance 10 mg tablet Take 10 mg by mouth daily. Generic drug: empagliflozin 10 mg Refills: 0 levothyroxine 200 mcg tablet Commonly known as: Synthroid Take 200 mcg by mouth Daily. 200 mcg Refills: 0 losartan 25 mg tablet Commonly known as: Cozaar Take 25 mg by mouth daily. 25 mg Refills: 0 metFORMIN XR 500 mg ER 24 hr tablet Commonly known as: Glucophage XR Take 1,000 mg by mouth 2 times daily. 1,000 mg Refills: 0 metoprolol succinate XL 50 mg ER 24 hr tablet Commonly known as: Toprol-XL Take 50 mg by mouth daily. 50 mg Refills: 0 NovoLOG FlexPen U-100 Insulin 100 unit/mL (3 mL) Insulin Pen Inject 9 Units subcutaneously 3 times daily (before meals). 35 UNITS THIS AM SLIDING SCALE 9-35 UNITS BID Generic drug: insulin aspart U-100 9 Units Refills: 0 Ozempic 2 mg/dose (8 mg/3 mL) Pen Injector Inject 2 mg subcutaneously every 7 days. Generic drug: semaglutide 2 mg Refills: 0 polyethylene glycoL 17 gram/dose Powder Commonly known as: Miralax Take 17 g by mouth daily as needed. 17 g Refills: 0 prazosin 5 mg capsule Commonly known as: Minipress Take 10 mg by mouth nightly. Indications: posttraumatic stress syndrome 10 mg Refills: 0 rosuvastatin 40 mg tablet Commonly known as: Crestor Take 1 tablet by mouth nightly. 1 tablet Refills: 0 Senna 8.6 mg tablet Take by mouth daily. Generic drug: senna Refills: 0 traZODone 100 mg tablet Commonly known as: Desyrel Take 300 mg by mouth nightly. 300 mg Refills: 0 * This list has 4 medication(s) that are the same as other medications prescribed for you. Read thedirections carefully, and ask your doctor or other care provider to review them with you. STOPPED Medications QUEtiapine 200 mg tablet Commonly known as: SEROquel QUEtiapine 400 mg tablet Commonly known as: SEROquel ziprasidone 60 mg capsule Commonly known as: Geodon UNREVIEWED medications - Discuss With Your Provider Dose Details Lantus Solostar U-100 Insulin 100 unit/mL (3 mL) pen Inject 12 Units subcutaneously daily. Generic drug: insulin glargine 12 Units Refills: 0 Smoking Status at Discharge: Social History Tobacco Use Smoking Status Former Smokeless Tobacco Never Instructions Given to Patient at Discharge: Patient Instructions Follow up appointments and recommendations: Clinic secretaries will reach out to you for your follow up appointment Patient Discharge Instructions: - Take Aygestin 10mg three times a day For problems or concerns related to this hospitalization call: [phone] weekdays, or [phone] weekends or nights. Call your doctor if you develop: --A fever over 101 degrees F --Severe pain -- Nausea / vomiting, diarrhea, intolerance of food or drink --Heavy vaginal bleeding, saturating 1+ heavy pad per hour General Instructions [facility] Vascular and Interventional Radiology Discharge Instructions For Your Puncture Site: LEFT wrist 10/13/22 Activity and Diet: ??? Go Home and rest quietly for the remainder of the day. You may resume your normal activities tomorrow. ??? Resume your usual diet after the procedure. Bandage: There is a sterile dressing over the puncture site consisting of small gauze with a clear dressing (Tegaderm). This dressing should be left in place for 24 hours. If the clear dressing becomes loose you should place tape over the edges to secure it in place. Bathing: Do not take a shower until 24 hours after your procedure; after this time you may shower with the dressing in place, then remove it and pat your skin dry. You may use a bandaid to cover the site if there is any drainage. When to call your healthcare provider: ??? If you notice bleeding or a bulge from the puncture site, you should apply firm pressure over the site for 10-15 minutes, keeping the site covered and call your doctor. If you are still bleeding after 10-15 minutes, reapply pressure, and have someone drive you to the nearest Emergency Department, or call 911. ??? If you develop pain, redness, drainage or swelling at or around the puncture site. ??? If you develop fever equal to or greater than 101F and/or shaking chills. When to call the Interventional Radiology Department: Please call with any questions or concerns. If it is during regular office hours, please call [phone]. If it is after regular office hours, or on weekends or holidays, please call [phone] and ask to speak to the Broadband Installer global marketing operations manager for Interventional Radiology. You have received medication during your procedure to help lessen anxiety and keep you comfortable.These medications affect judgement and reaction time. We recommend that you do not drive, operate equipment, sign any important documents, or smoke unattended for 24 hours following your procedure. Because of the sedation, be careful on stairs, as you may be unsteady on your feet. You may resume your regular diet as tolerated. IV site -- slight redness, or tenderness is normal, you can use a warm compress. If tenderness and redness increases or foul drainage occurs, please contact your M. D. Revised 05/31/15 Future Appointments and Orders Future Appointments and Orders Future Appointments Provider Department Dept Phone 11/13/2022 9:00 AM Berenice Ahumada MD Obstetrics and Gynecology at [facility] Arrive at: Air Pollution Specialist Area 11/13/2022 11:15 AM Jenni Waller MD Weight and Wellness at [facility] Arrive at: Air Pollution Specialist Area 11/24/2022 10:30 AM Raisa Vallejo, PhD Weight and Wellness at [facility] Arrive at: Home [phone] To view instructions for your video visit, click here, or visit this website: [email or web address] If you have not previously downloaded the [employer] patient portal software, [employer], or the [employer] rebecca, please do so by clicking one of these links below or searching in your device's rebecca store. For all desktops/laptops; for Android devices; for Apple/iOS devices FAQs: Join Video Visit button not connecting? - This may be due to pop-up blockers. - Click this link to see: How to Disable Pop-Up Block for myD-H Video Visits Zoom asking for a meeting password? - Exit out of the Zoom program and try the link again Future Orders Complete By Expires Referral to Interventional Radiology (Primary Care Use Only) [REF41 Custom] As directed Process Instructions: If no progress note charted, please enter Clinical details in comments. Scheduling Instructions: Questions: Reason for exam and clinical history: follow up for heavy vaginal bleeding s/p IR uterine artery embolization with gel foam, Clinical information / dao questions for radiologist: Exam/Procedure requested: What labs need to be collected during imaging study?: Is the patient taking any anticoagulants and/or antiplatelet meds?: No Does patient require sedation?: GA rationale: My question or request is: follow up for evlauation of possible rodent exterminator IR embolization Discharge References/Attachments None Provider Contact Information: Liajermaine Pearson, JULIO C [phone] documented in this encounter Discharge Instructions * Discharge Instructions* Deneen Grider RN - 10/13/2022 9:35 PM EDT [facility] Vascular and Interventional Radiology Discharge Instructions For Your Puncture Site: LEFT wrist 10/13/22 Activity and Diet: Go Home and rest quietly for the remainder of the day. You may resume your normal activities tomorrow. Resume your usual diet after the procedure. Bandage: There is a sterile dressing over the puncture site consisting of small gauze with a clear dressing (Tegaderm). This dressing should be left in place for 24 hours. If the clear dressing becomes loose you should place tape over the edges to secure it in place. Bathing: Do not take a shower until 24 hours after your procedure; after this time you may shower with the dressing in place, then remove it and pat your skin dry. You may use a bandaid to cover the site if there is any drainage. When to call your healthcare provider: If you notice bleeding or a bulge from the puncture site, you should apply firm pressure over the site for 10-15 minutes, keeping the site covered and call your doctor. If you are still bleeding after 10-15 minutes, reapply pressure, and have someone drive you to the nearest Emergency Department, or call 911. If you develop pain, redness, drainage or swelling at or around the puncture site. If you develop fever equal to or greater than 101F and/or shaking chills. When to call the Interventional Radiology Department: Please call with any questions or concerns. If it is during regular office hours, please call [phone]. If it is after regular office hours, or on weekends or holidays, please call [phone] and ask to speak to the Broadband Installer global marketing operations manager for Interventional Radiology. You have received medication during your procedure to help lessen anxiety and keep you comfortable.These medications affect judgement and reaction time. We recommend that you do not drive, operate equipment, sign any important documents, or smoke unattended for 24 hours following your procedure. Because of the sedation, be careful on stairs, as you may be unsteady on your feet. You may resume your regular diet as tolerated. IV site -- slight redness, or tenderness is normal, you can use a warm compress. If tenderness and redness increases or foul drainage occurs, please contact your M. D. Revised 05/31/15 * Patient Instructions* Marco Patel MD - 10/15/2022 2:26 PM EDT Follow up appointments and recommendations: Clinic secretaries will reach out to you for your follow up appointment Patient Discharge Instructions: - Take Aygestin 10mg three times a day For problems or concerns related to this hospitalization call: [phone] weekdays, or [phone] weekends or nights. Call your doctor if you develop: --A fever over 101 degrees F --Severe pain -- Nausea / vomiting, diarrhea, intolerance of food or drink --Heavy vaginal bleeding, saturating 1+ heavy pad per hour documented in this encounter Medications at Time of Discharge Medication Sig Dispensed Refills Start Date End Date traZODone (Desyrel) 150 mg tablet Take 2 [...] in PM 04/14/2022 gabapentin (Neurontin) 300 mg CapsuleIndications: Type 2 diabetes mellitus with diabetic neuropathy, with [...] AutoShield Duo Pen Needle 30 gauge x 07/30 Needle USE UP TO 5 PEN NEEDLES DAILY 10/31/2021 prazosin (Minipress) 5 mg CapsuleIndications: post traumatic stress disorder Take 10 mg by mouth nightly. Indications: posttraumatic stress syndrome 11/07/2021 doxepin (Silenor) 6 mg tablet Take 6 mg by mouth Once daily as needed. 08/18/2022 06/02/2023 cholecalciferol, Vitamin D3, 1,250 mcg (50,000 unit) Capsule every week 07/07/2022 07/14/2023 moxifloxacin (Vigamox) 0.5 % Drops INSTILL ONE DROP IN THE LEFT EYE FOUR TIMES A DAY 09/06/2022 02/12/2023 ziprasidone (Geodon) 20 mg capsule Twice a day 08/05/2022 02/12/2023 ziprasidone (Geodon) 40 mg capsule TAKE ONE CAPSULE BY MOUTH TWICE A DAY WITH FOOD 08/01/2022 02/12/2023 insulin aspart U-100 (NovoLOG) 100 unit/mL (3 mL) Insulin Pen Three times a day 06/25/2022 06/02/2023 norethindrone (Aygestin) 5 mg tabletIndications:A bnormal uterine bleeding (AUB) Take 2 tablets by mouth 3 times daily. 180 tablet 6 10/15/2022 07/16/2023 Jardiance 10 mg tablet Take 10 mg by mouth daily. 09/12/2022 06/05/2023 acetaminophen (Tylenol) 325 mg Tablet Take 2 tablets by mouth every 4 hours as needed for Pain. 90 tablet 1 03/03/2022 06/05/2023 chlorproMAZINE (Thorazine) 50 mg Tablet Take 50 mg by mouth as needed. 12/18/2021 03/19/2023 traZODone (Desyrel) 100 mg Tablet Take 300 mg by mouth nightly. 01/30/2022 03/19/2023 semaglutide (Ozempic) 2 mg/dose (8 mg/3 mL) Pen Injector Inject 2 mg subcutaneously every 7 days. Takes Wednesday mornings 02/06/2022 03/24/2023 Lantus Solostar U-100 Insulin 100 unit/mL (3 mL) penIndications:Type 2 diabetes mellitus with hyperglycemia, with long-term current use of insulin Inject 12 Units subcutaneously daily. 01/08/2022 11/13/2022 ARIPiprazole (Abilify) 15 mg Tablet Take 20 mg by mouth daily. 09/25/2021 03/19/2023 cyanocobalamin, vitamin B-12, 500 mcg Tablet Take 1,000 mcg by mouth Daily. 06/02/2023 furosemide (Lasix) 40 mg Tablet Take 20 mg by mouth every morning. 11/18/2021 03/19/2023 NovoLOG Flexpen U-100 Insulin 100 unit/mL (3 mL) Insulin Pen Inject 9 Units subcutaneously 3 times daily (before meals). 35 UNITS THIS AM SLIDING SCALE 9-35 UNITS BID 11/14/2021 07/14/2023 losartan (Cozaar) 25 mg Tablet Take 25 mg by mouth daily. 11/14/2021 02/12/2023 metoprolol succinate XL (Toprol-XL) 50 mg Tablet Sustained Release 24 hr Take 100 mg by mouth daily. 11/25/2021 03/19/2023 polyethylene glycoL (Miralax) 17 gram/dose Powder Take 17 g by mouth daily as needed. 06/05/2023 rosuvastatin (Crestor) 40 mg Tablet Take 1 tablet by mouth nightly. 09/26/2021 02/12/2023 documented as of this encounter Progress Notes * Kaya Godfrey RN - 10/15/2022 2:03 PM EDT Pt tolerating Carb Control diet well, no reports of nausea, pt passing flatus. Pt education on medications, wrist incision, and bleeding completed. PIV's removed prior to d/c. Pt gathered own home belongings. AVS provided to and reviewed with pt prior to discharge, pt verbalized understanding, all questions answered. Pt discharged with all belongings in hand via wheelchair down to medicaid ride @1610. * Yeimy Ferrara - 10/15/2022 1:51 PM EDTSummary: transportation Transportation for discharge was scheduled and confirmed though [facility]. The m48/m60 tank driver will be Mian and he will pick pt up at the inpatient visitor entrance (discharge lounge) at 4:15-4:30pm today to provide transportation home * Raven Heath MD - 10/15/2022 7:37 AM EDT Images from the original note were not included. Gynecology Progress Note ID: Zenia Worley is an 32 y.o. woman with PMHx of AUD (s/p hysteroscopy with D&C, Mirena placement 02/2022), hypothyroidism, T2DM, HLD, BMI 72, RICHMOND, Insomnia, PTSD (TVUS under sedation), schizoaffective disorder who is post procedure day #2 s/p uterine artery embolization for hemorraghic shocksecondary to vaginal bleeding (s/p 5 units PRBCs). HD#3 Overnight events: No acute overnight events. Subjective: Zenia Worley reports that she does not have any pain this morning, denies chest pain or SOB. Her sierra was removed yesterday and she has been able to ambulate to the commode without any lightheadedness, or dizziness and has been voiding spontaneously. Has tolerated dinner last night without nauseaor vomiting. Physical Exam: Last value Range last 24 hrs Temperature Temp: 36.7 ??C (98.1 ??F) Temp: [36.6 ??C (97.9 ??F)-37.1 ??C (98.8 ??F)] Heart Rate Heart Rate: (!) 109 Heart Rate: -- Blood Pressure BP: 123/78 BP: (123-142)/(68-92) Respiratory Rate Resp: 16 Resp: [16-19] SpO2 SpO2: 100 % SpO2: [98 %-100 %] Art BP BP (Arterial Line): -- I/O last 3 completed shifts: In: 2682 [P.O.:1080; I.V.:1602] Out: 2950 [Urine:2950] No intake/output data recorded. UOP: ~81.25 mL/ hour. (650 over 8 hours overnight with another unmeasured urine occurrence) Physical Exam Gen: AAOx3, NAD, sleeping and easily arousable. CPAP machine on. Cardio: Tachycardic, regular rhythm Pulm: Normal work of breathing, diminished breath sounds bilaterally. No crackles or wheezes Incision: not visualized at this check Ext: warm, well-perfused : Dark Vaginal bleeding noted to be minimal on Chux pad. unable to visualize introitus. Neuro: grossly intact, no focal deficits Laboratory (Last 24 Hours): CBC Lab Results Component Value Date WBC 11.8 (H) 10/14/2022 Hemoglobin 9.5 (L) 10/14/2022 Hematocrit 28.5 (L) 10/14/2022 Platelets 278 10/14/2022 Electrolytes No results found for: NA, K, CL, CO2 Lab Results Component Value Date/Time TROPONINTHS 18 (H) 10/14/2022 08:21 AM PROBNP <36 10/13/2022 04:50 PM AST 24 10/14/2022 02:25 AM ALT 41 (H) 10/14/2022 02:25 AM POCGLU 122 10/15/2022 03:36 AM HA1C 6.2 (H) 11/12/2021 12:00 AM CREATININE 0.90 10/14/2022 02:25 AM Lab Results Component Value Date BUN 18 10/14/2022 CREATININE 0.90 10/14/2022 Glucose: Assessment and Plan: Zenia Worley is an 32 y.o. woman with PMHx of AUD (s/p hysteroscopy with D&C, Mirena placement 02/2022), hypothyroidism, T2DM, HLD, BMI 72, RICHMOND, Insomnia, PTSD (TVUS under sedation), schizoaffective disorder who is post procedure day #2 s/p uterine artery embolization for hemorraghic shock secondary to vaginal bleeding (s/p 5 units PRBCs). She is stable following uterine artery embolization and recovering well. Psych: #PTSD #Insomnia #Schizoaffective disorder -- Continue home medications - Trazodone 300 mg nightly - Chlorpromazine 200 mg PM - Aripiprazole 20 mg daily - Doxepin 10 mg nightly - Gabapentin 300 mg PO BID - Seroquel 400 mg nighty - Ziprasidone 60 mg BID AM Pain Control: adequate pain control with tylenol and ibuprofen Cardiac/Heme: #Hypovolemic Shock (resolved) #Acute Blood Loss Anemia #Tachycardia #Hx Essential HTN #HLD Was saturating 12 depends per day. S/p 5 U PRBC. 1L D5 bolus.Currently, hemodynamically stable. -- Tachycardia to 110 overnight, home metoprolol XL restarted last night given her hemodynamic stability, troponin peaked at 22 and downtrended to 16. Will confirm follow up recs with cardiology team. -- Hg 8.3 --> 9.2 --> 9.9 --> 9.5 (10/14) -- Restarted home Furosamide -- Consider restarting PO iron with discharge planning -- Appreciate cardiology recommendations -- Hold off on aspirin/plavix/hep given Pulmonary: #RICHMOND Adequate o2 sats on 2 Liters nasal cannula oxygen. -- has working CPAP. -- Wean to maintain saturation >92%. -- Encourage incentive spirometry. Gastrointestinal: -- regular diet ordered -- zofran prn nausea. Gynecologic: #AUB Heavy vaginal bleeding is the source of hypovolemic shock. Pathology from 02/2022 was benign. S/p uterine artery embolization and Premarin. -- Continue 10 mg Agystin TID, Consider estrogen treatment if bleeding worsens. -- Plan for follow up in 4 weeks for rodent exterminator management. -- Continue pad counts. Urinary: Sierra catheter removed, voiding spontaneously Fluid/ Electrolytes: -- discontinue intravenous fluid when taking adequate PO Skin: Gluteal lesion. 2018 she had bedsore that developed cellulitis requiring debridement with exposed tailbone. -- wound care consulted Endocrinology: #T2DM #Hypothyroidism -- Q4 hour glucose checks -- Resistant SSI -- continue home meds - Metformin 1,000 mg PO BID - Jardiance 10 mg daily -- levothyroxine 200 mcg daily ID: afebrile -- no current concerns Prophylaxis: Patient is at elevated risk for DVT/PE due to BMI, postprocedural state, and estrogen,holding medical anticogaulation in the setting of acute bleed --Incentive spirometry. --SCDs. Other: -- Bedside commode Disposition: --Given improved clinical status, stable for discharge today. Will coordinate follow up with Referral Agent and IR outpatient and follow up on cardiology recs. Patient plan to be discussed with Dr. Heath attending Marco Patel MD, PGY-1 Obstetrics and Gynecology, Pager #[phone] 10/15/22 Attending note I saw and evaluated the patient with Dr Patel (resident physician.) I have reviewed the resident's history during the visit and I agree with the details as written. My physical examination confirms and/or revises the resident's findings. The assessment and plan were formulated in discussion with me at the time of the visit and I agree with them as documented. Raven Heath MD * Caryl Pearce - 10/14/2022 5:16 PM EDT Interim Progress Note: S: Zenia reports she is feeling much better. Denies any chest pain or shortness of breath. She hashad minimal vaginal bleeding throughout the day. Sierra came out midday and she has been able to void spontaneously. Has been eating less than normal but with no restrictions, no nausea or abdominal pain. Her headache and eye pain improved with Tylenol. O: BP (!) 142/92 (BP Location (NBP): Right arm, Patient Position: Lying) Pulse (!) 109 Temp 36.6 ??C (97.9 ??F) (Oral) Resp 16 Ht 154.9 cm (5' 1) Wt (!) 185.1 kg (408 lb) SpO2 98% BMI 77.09 kg/m?? Gen: lying in bed with CPAP in place napping, easily arousable and conversant HEENT: normal hair distribution, conjunctival injection of right eye. Ptosis of right eye noted this morning has resolved. Chest: non-labored breathing Extremities: symmetrical, no edema Neuro: grossly intact, no focal deficits A/P: Zenia Worley??is an 32 y.o.??woman with PMHx of AUD (s/p hysteroscopy with D&C, Mirena placement 02/2022), hypothyroidism, T2DM, HLD, BMI 72, RICHMOND, Insomnia, PTSD (TVUS under sedation), schizoaffective disorder??who is post procedure??day #0 s/p??uterine artery embolization??for hemorraghic shock secondary to vaginal bleeding (s/p 5 units PRBCs). ?? 1) Chest pain: echocardiogram today showed hyperdynamic status (similar to prior echocardiogram in August 2022 which is scanned in media). Troponin peaked at 22 and then downtrended to 16, discontinued further lab draws. Now asymptomatic. Will confirm any additional follow up recs from cardiology team. 2) Tachycardia - in 110-130s over the day today. She does have some baseline tachycardia and her metoprolol was held in the setting of hemodynamic instability and acute hemorrhage on admission. Now that bleeding is stabilized and BP is hypertensive again, will restart home metoprolol. If persistently tachycardia or if she develops any hypoxia or chest pain would consider workup for PE. She is currently on mechanical prophylaxis only due to her recent hemorrhage. 3)Vaginal bleeding - Increase norethindrone to higher dose with a taper: 30 mg daily in divided doses for a week, then20 mg daily x 1 week. Due to BMI, she may need a higher dose of progestin that this to manage bleeding. - Consideration to re-placing levonorgestrel IUD: this would need to be done under sedation, likelyin the OR, due to trauma history and ability to obtain an adequate pelvic exam/visualization. - If ineffective, could use a more potent progestin such as MPA (Megace) 80 mg twice daily for 3 months, then tapered down to 40 mg twice daily maintenance therapy. This would be more effective in conjunction with levonorgestrel secreting IUD. - There could potentially be a role for a more long-term embolization option (UAE with beads) if medical management is ineffective. Could consider outpatient IR consultation to discuss this if necessary. 5) Endometrial ablation and/or hysterectomy would be last resort options to manage bleeding. Endometrial ablation could obfuscate EIN or malignancy testing, which Zenia is at risk for, by making sampling challenging or impossible. IUD would also not be an option after ablation. Due to her medical co-morbidities, she is not an ideal surgical candidate, but this would be a safer option with optimization of her medical status and weight loss. She is enrolled in the weight and wellness program to work on this. 4) h/o fall this weekend, in the setting of symptomatic acute blood loss anemia -will use caution with home meds (of which many are sedating), although Zenia reports feeling muchbetter s/p significant improvement in bleeding and blood transfusion Anticipate discharge tomorrow if she continues to be stable overnight and no further cardiology recs. She would benefit from an [facility] Medicaid ride, which will we coordinate in the morning. Caryl Pearce MD, PGY-4 10/14/2022 5:24 PM * Angela Ramon PA - 10/14/2022 8:18 AM EDT Interventional Radiology Inpatient Progress Note Admitted 10/13/2022 Procedure(s): Bilateral uterine artery embolization Post-procedure day: #1 Time of patient encounter: 07:00 24 Hour Events: -No adverse events overnight -Tachycardic to 132 this morning, o/w AVSS on 2L NC/CPAP overnight -Cardiology consulted for previous chest pain, likely getting echo per report -Patient had BM overnight. Less vaginal bleeding than before embolization Last Value 24 Hour Range Temperature 36.8 ??C (98.2 ??F) Temp: [36 ??C (96.8 ??F)-36.9 ??C (98.4 ??F)] Heart Rate (!) 109 Heart Rate: [90-120] Blood Pressure 100/56 BP: (69-138)/(24-77) Respiratory Rate 16 Resp: [9-25] SpO2 96 % SpO2: [93 %-100 %] Physical Exam GEN No distress, A&O ACCESS Left radial artery site C/D/I Labs: Reviewed - Last 3 wbc, hgb, hct plt Recent Labs 10/14/22 0225 10/13/22 2245 10/13/22 1650 WBC 15.1* 15.4* 9.8* HGB 9.9* 9.2* 8.3* HCT 29.1* 27.8* 25.7* PLATELET 288 272 314 Imaging: No relevant post procedural imaging. Assessment: 32 y.o. female POD#1 from bilateral uterine artery embolization in the setting hemorraghic shock secondary to vaginal bleeding. Aside from tachycardia, hemodynamically stable with no blood products given post procedure. Plan: IR will sign-off at this time. Please page with further questions and concerns. Angela Ramon PA-C Interventional Radiology IR Team Pager [phone] * Marco Patel MD - 10/14/2022 6:14 AM EDT Gynecology Progress Note ID: Zenia Worley is an 32 y.o. woman with PMHx of AUD (s/p hysteroscopy with D&C, Mirena placement 02/2022), hypothyroidism, T2DM, HLD, BMI 72, RICHMOND, Insomnia, PTSD (TVUS under sedation), schizoaffective disorder who is post procedure day #1 s/p uterine artery embolization for hemorraghic shocksecondary to vaginal bleeding (s/p 5 units PRBCs). HD#2 Overnight events: - chest pain s/p cardiology consult, trending troponin and plan for echo today. - Sacral wound s/p wound care consult. - 2 pads changed overnight Subjective: Zenia Worley reports that she does not have any pain this morning, denies chest pain or SOB. She has ambulated to the commode and had a bowel movement, denies lightheadedness, or dizziness. Denies nausea or vomiting. Has not attempted any liquids or solids. Her sierra catheter remains in place. Physical Exam: Last value Range last 24 hrs Temperature Temp: 36.7 ??C (98.1 ??F) Temp: [36 ??C (96.8 ??F)-36.9 ??C (98.4 ??F)] Heart Rate Heart Rate: (!) 109 Heart Rate: [90-120] Blood Pressure BP: 99/54 BP: (69-138)/(24-77) Respiratory Rate Resp: 14 Resp: [9-25] SpO2 SpO2: 99 % SpO2: [93 %-100 %] Art BP BP (Arterial Line): -- I/O last 3 completed shifts: In: 1602 [I.V.:1602] Out: 750 [Urine:750] No intake/output data recorded. UOP: ~87.5 mL/ hour. (750 + 300 in the catheter container for the past 12 hours. Physical Exam Gen: AAOx3, NAD, sleeping and easily arousable. CPAP machine on. Cardio: Tachycardic, regular rhythm Pulm: Normal work of breathing, diminished breath sounds bilaterally. No crackles or wheezes Incision: not visualized at this check Ext: warm, well-perfused : Sierra catheter in place draining yellow urine. Dark Vaginal bleeding noted to be minimal on Chux pad. With some dried blood on bilateral thighs, unable to visualize introitus. Laboratory (Last 24 Hours): CBC Lab Results Component Value Date WBC 15.1 (H) 10/14/2022 Hemoglobin 9.9 (L) 10/14/2022 Hematocrit 29.1 (L) 10/14/2022 Platelets 288 10/14/2022 Electrolytes Lab Results Component Value Date Sodium 137 10/14/2022 Potassium 4.9 10/14/2022 Chloride 104 10/14/2022 CO2 22 10/14/2022 Lab Results Component Value Date/Time TROPONINTHS 22 (H) 10/14/2022 02:25 AM PROBNP <36 10/13/2022 04:50 PM AST 24 10/14/2022 02:25 AM ALT 41 (H) 10/14/2022 02:25 AM POCGLU 118 10/14/2022 05:03 AM HA1C 6.2 (H) 11/12/2021 12:00 AM CREATININE 0.90 10/14/2022 02:25 AM Lab Results Component Value Date BUN 18 10/14/2022 CREATININE 0.90 10/14/2022 Glucose: 73-129 in the past 12 hours. 118 at 5 am. Assessment and Plan: Zenia Worley is an 32 y.o. woman with PMHx of AUD (s/p hysteroscopy with D&C, Mirena placement 02/2022), hypothyroidism, T2DM, HLD, BMI 72, RICHMOND, Insomnia, PTSD (TVUS under sedation), schizoaffective disorder who is post procedure day #1 s/p uterine artery embolization for hemorraghic shock secondary to vaginal bleeding (s/p 5 units PRBCs). She is stable following uterine artery embolization and recovering well. We will continue to closely monitor MAP and escalate care as needed. Psych: #PTSD #Insomnia #Schizoaffective disorder -- Consider restarting home medications today pending clinical course - Trazodone 100 mg nightly - Chlorpromazine 50 mg PRN PM - Aripiprazole 15 mg daily - Doxepin - Prazosin 5 mg PO nightly PRN - Gabapentin 300 mg PO BID - Seroquel 400 mg nighty -- Continue Ziprasidone 60 mg BID AM Pain Control: adequate pain control without medications. IV fentanyl and PO Tylenol available. -- transition to PO pain meds when able to take adequate PO Cardiac/Heme: #Hypovolemic Shock (improved) #Acute Blood Loss Anemia #Tachycardia #Hx Essential HTN #HLD Was saturating 12 depends per day. S/p 5 U PRBC. 1L D5 bolus. Overall hemodynamically stable. Maintaining MAPs near 65 without pressors. Tachycardia at this time likely secondary to anemia, but does take metoprolol at baseline to help control hr. -- AM CBC pending. Hg 8.3 --> 9.2 --> 9.9 -- Consider further fluid resuscitation with 1L NS if MAP decrease and transition to higher level of care -- Hold antihypertensives and consider restarting once pressures stabilize - Metoprolol 50 mg PO daily - Losartan 25 mg PO daily - Furosimide 40 mg PO daily AM -- Hold rosuvastatin 40 mg PO daily -- Consider restarting PO iron with discharge planning -- Appreciate cardiology recommendations, plan for echo today and trending troponins. -- Hold off on aspirin/plavix/hep gtt for now Pulmonary: #RICHMOND Adequate o2 sats on 2 Liters nasal cannula oxygen. -- has working CPAP. -- Wean to maintain saturation >92%. -- Encourage incentive spirometry. Gastrointestinal: -- regular diet ordered -- zofran prn nausea. Gynecologic: #AUB Heavy vaginal bleeding is the source of hypovolemic shock. Pathology from 02/2022 was benign. S/p uterine artery embolization and Premarin. -- Continue 5 mg Agystin BID, Consider estrogen treatment if bleeding worsens. 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 -- Continue pad counts. Urinary: Sierra catheter in place. Adequate UOP. No evidence or prerenal EDIE from hypovolemia at this time. -- strict I/Os -- discontinue sierra catheter when ambulatory Fluid/ Electrolytes: -- NS at 100cc/hour. -- discontinue intravenous fluid when taking adequate PO Skin: Gluteal lesion. 2018 she had bedsore that developed cellulitis requiring debridement with exposed tailbone. -- wound care consulted Endocrinology: #T2DM #Hypothyroidism holding home medications given BG 79-129, consider restarting when patient is tolerating diet -- Q4 hour glucose checks -- Resistant SSI -- Consider restarting home medications once tolerating PO. Takes home medications different than in chart. Here pre patient report. - Metformin 1,000 mg PO BID - Lantus 17 units AM 18 units PM - Novolog SSI with Carb Ratio (patient has ratio on phone) - Jardiance 10 units AM -- levothyroxine 200 mcg daily ID: afebrile -- no current concerns Prophylaxis: Patient is at elevated risk for DVT/PE due to BMI, postprocedural state, and estrogen --Consider starting Lovenox 24 hours postprocedurally --Incentive spirometry. --SCDs. Other: -- Bedside commode Disposition: --Continues to require inpatient hospitalization Patient plan to be discussed with Dr. Ahumada attending Marco Patel MD, PGY-1 Obstetrics and Gynecology, Pager #[phone] 10/14/22 Associated attestation - Berenice Ahumada MD - 10/14/2022 11:14 AM EDT I have seen and examined the patient, providing dao components as outlined below. I have reviewed the resident???s above note; my evaluation of the patient is below: Zenia Worley is a 32 y.o. admitted overnight with abnormal uterine bleeding and acute blood loss anemia requiring transfusion of 5u pRBC's and treated with IV premarin and IR uterine artery embolization. Her bleeding has improved significantly and H/H stable at 9.5/28.5. Will increase norethindrone to 10mg TID to further decrease bleeding and plan to taper over the next few weeks with close outpatient follow-up. I personally reviewed the IR embolization images and did not identify her IUD which was placed in February, thus most likely it was expelled at some point. Appreciate cardiology consult. Will continue to trend troponins and echo pending this AM. Will get wound consult for sacral ulcers which the patient reports she has had for 5 years. Restart home medications. Discontinue sierra and encourage ambulation. SCD's while in bed for DVT ppx. Possible discharge home later today pending echo and wound consult, and if bleeding continues to beminimal. I spent a total of 50 minutes on this patient encounter today to include chart review, face to faceexamination and counseling and coordination of care. Berenice Ahumada MD * Sabrina Mayfield, DO - 10/14/2022 3:46 AM EDT SOAP Note Patient ID: Zenia Worley is an 32 y.o. woman with PMHx of AUD (s/p hysteroscopy with D&C, Mirena placement 02/2022), hypothyroidism, T2DM, HLD, BMI 72, RICHMOND, Insomnia, PTSD (TVUS under sedation),schizoaffective disorder who is post procedure day #0 s/p uterine artery embolization for hemorraghic shock secondary to vaginal bleeding (s/p 5 units PRBCs). S: Paged that patient had passed a large clot. Went to bedside to assess patient, and found her lying prone with CPAP in place asleep. She was easily aroused and reported that she was feeling well overall. Reports no chest pain. She consented to a brief external pelvic exam. O: Vitals Last value Range last 24 hrs Temperature Temp: 36.7 ??C (98.1 ??F) Temp: [36 ??C (96.8 ??F)-36.9 ??C (98.4 ??F)] Heart Rate Heart Rate: (!) 109 Heart Rate: [90-120] Blood Pressure BP: 99/54 BP: (69-138)/(24-77) Respiratory Rate Resp: 18 Resp: [9-25] SpO2 SpO2: 97 % SpO2: [93 %-100 %] PE General: Obese, prone Back: bilateral scars on gluteus in stellate, raised fashion. There is a deep groove tracking from left gluteal stellate scar to the rectum. There is thin stranding of clot and crusting of blood in the groove. No exudate, erythema, or selling. Labs CBC Lab Results Component Value Date WBC 15.1 (H) 10/14/2022 Hemoglobin 9.9 (L) 10/14/2022 Hematocrit 29.1 (L) 10/14/2022 Platelets 288 10/14/2022 Lab Results Component Value Date/Time TROPONINTHS 22 (H) 10/14/2022 02:25 AM A/P: #Chest pain (resolved) #Elevated troponin (uptrending) #Hypovolemic shock (improved) Paged cardiology to request evaluation. Chest pain was likely a symptom of anemia in the setting ofhemorrhagic shock. Chest pain at this time has resolved. However, troponins continue to rise. The mildly elevated troponins are likely due to demand ischemia; however, he would like a more thorough investigation for other potential causes such as high-output heart failure due to longstanding anemiaor vascular etiology in the setting of BMI 77. Would advise against anticoagulation during this immediate postprocedural time. - trend troponin - fu cardiology consult #Vaginal Bleeding Based on physical exam, vaginal bleeding has stabilized following uterine artery embolization. - monitor bleeding #Gluteal wound While past wounds look largely healed, we do have some concern about the deep groove and blood on her left gluteus extending to the rectum. We would like specialized input from wound care and assessing this wound and potential recommendations for management. - AM wound care consult This patient was seen and discussed with attending Appliance Service Supervisor physician, Cecilia HERNANDEZ. Sabrina Mayfield DO, PGY-1 Obstetrics and Gynecology 10/14/22 * Felipa Alamo RN - 10/13/2022 11:40 PM EDT Patient arrived from PACU via bed. Patient denies pain, chest pain, SOB, nausea, numbness, tingling. Patient has sierra in place. IVF running. Patient on 2L NC. Patient moved to new bed. Patient connected to [employer]. VSS - patient remains tachycardic. Call neal within reach. Will continue to monitor patient. Felipa Alamo RN * Sabrina Mayfield DO - 10/13/2022 10:51 PM EDT Gynecology Post Procedural Progress Note ID: Zenia Worley is an 32 y.o. woman with PMHx of AUD (s/p hysteroscopy with D&C, Mirena placement 02/2022), hypothyroidism, T2DM, HLD, BMI 72, RICHMOND, Insomnia, PTSD (TVUS under sedation), schizoaffective disorder who is post procedure day #0 s/p uterine artery embolization for hemorraghic shocksecondary to vaginal bleeding (s/p 5 units PRBCs). Subjective: Zenia Worley reports that her pain is well controlled. Has not used fentanyl that is available. She has not attempted any liquids or solids. Her sierra catheter remains in place. Has not yet passed gas, but tried to have BM in bed smith due to sensation to stool. She has not yet ambulated or attempted to sit up. She reports that her chest pain has resolved and SOB has improved. Physical Exam: Last value Range last 24 hrs Temperature Temp: 36 ??C (96.8 ??F) Temp: [36 ??C (96.8 ??F)-36.9 ??C (98.4 ??F)] Heart Rate Heart Rate: (!) 107 Heart Rate: [90-120] Blood Pressure BP: 117/48 BP: (69-138)/(24-77) Respiratory Rate Resp: 18 Resp: [9-25] SpO2 SpO2: 97 % SpO2: [93 %-100 %] Art BP BP (Arterial Line): -- No intake/output data recorded. I/O this shift: In: 1000 [I.V.:1000] Out: 200 [Urine:200] UOP: ~40 mL/ hour. Physical Exam Gen: AAOx3, NAD, sleeping and easily arousable. Cardio: RRR, no MRG Pulm: Noisy upper airway consistent with RICHMOND Abd: soft, obese, non-distended Incision: left medial radius, dressing clean/dry/intact Ext: warm, well-perfused, no edema bilaterally, SCDs in place, 2 second capillary refill : Sierra catheter in place draining yellow urine. Vaginal bleeding noted to be minimal on Chux pad. Laboratory (Last 24 Hours): CBC Lab Results Component Value Date WBC 15.4 (H) 10/13/2022 Hemoglobin 9.2 (L) 10/13/2022 Hematocrit 27.8 (L) 10/13/2022 Platelets 272 10/13/2022 Electrolytes Lab Results Component Value Date Sodium 136 10/13/2022 Potassium 4.5 10/13/2022 Chloride 104 10/13/2022 CO2 22 10/13/2022 Lab Results Component Value Date/Time TROPONINTHS 16 (H) 10/13/2022 06:20 PM PROBNP <36 10/13/2022 04:50 PM AST 21 10/13/2022 10:45 PM ALT 37 (H) 10/13/2022 10:45 PM POCGLU 117 10/14/2022 12:00 AM HA1C 6.2 (H) 11/12/2021 12:00 AM CREATININE 0.95 10/13/2022 10:45 PM Lab Results Component Value Date BUN 18 10/13/2022 CREATININE 0.95 10/13/2022 Assessment and Plan: Zenia Worley is an 32 y.o. woman with PMHx of AUD (s/p hysteroscopy with D&C, Mirena placement 02/2022), hypothyroidism, T2DM, HLD, BMI 72, RICHMOND, Insomnia, PTSD (TVUS under sedation), schizoaffective disorder who is post procedure day #0 s/p uterine artery embolization for hemorraghic shock secondary to vaginal bleeding (s/p 5 units PRBCs). She is stable following uterine artery embolization and recovering well. We will continue to closely monitor MAP and escalate care as needed. Psych: #PTSD #Insomnia #Schizoaffective disorder Deferred home meds for now due to drowsiness. -- Consider restarting home medications in AM pending LOC - Trazodone 100 mg nightly - Chlorpromazine 50 mg PRN PM - Aripiprazole 15 mg daily - Doxepin - Prazosin 5 mg PO nightly PRN - Gabapentin 300 mg PO BID - Seroquel 400 mg nighty -- Start Ziprasidone 60 mg BID AM Pain Control: adequate pain control without medications. IV fentanyl and PO Tylenol available. -- transition to PO pain meds when able to take adequate PO Cardiac/Heme: #Hypovolemic Shock (improved) #Acute Blood Loss Anemia #Tachycardia #Hx Essential HTN #HLD Was saturating 12 depends per day. S/p 5 U PRBC. 1L D5 bolus. Overall hemodynamically stable. Maintaining MAPs near 65 without pressors. Tachycardia at this time likely secondary to anemia, but does take metoprolol at baseline to help control hr. -- Postprocedural CBC -- AM CBC -- Consider further fluid resuscitation with 1L NS if MAP decrease and transition to higher level of care -- Transition from D5 to NS infusion -- Hold antihypertensives and consider restarting tomorrow once pressures stabilize - Metoprolol 50 mg PO daily - Losartan 25 mg PO daily - Furosimide 40 mg PO daily AM -- Hold rosuvastatin 40 mg PO daily -- Consider restarting PO iron with discharge planning Pulmonary: #RICHMOND Adequate o2 sats on 2 Liters nasal cannula oxygen. -- Paged [phone] for respiratory therapy to establish CPAP care -- Wean to maintain saturation >92%. -- Encourage incentive spirometry. Gastrointestinal: -- regular diet ordered -- zofran prn nausea. Gynecologic: #AUB Heavy vaginal bleeding is the source of hypovolemic shock. Pathology from 02/2022 was benign. S/p uterine artery embolization and Premarin. -- Continue 5 mg Agystin BID -- Consider following up location of IUD, does not tolerate TVUS d/t trauma history -- Consider discussing correction management options Urinary: Sierra catheter in place. Adequate UOP. BUN Cr ratio 17. No evidence or prerenal EDIE from hypovolemia at this time. -- strict I/Os -- discontinue sierra catheter when ambulatory -- follow CMP to assess for prerenal EDIE Fluid/ Electrolytes: -- Postprocedural CMP pending -- AM CMP -- NS at 100cc/hour. -- discontinue intravenous fluid when taking adequate PO Skin: Gluteal lesion. 2018 she had bedsore that developed cellulitis requiring debridement with exposed tailbone. -- AM wound care consult Endocrinology: #T2DM #Hypothyroidism Because she arrived with POC glucose was 73 and only increased to 129 with 1L dextrose bolus. We will therefore hold home medications. -- Q2 hour glucose checks -- Resistant SSI -- Consider restarting home medications once tolerating PO. Takes home medications different than in chart. Here pre patient report. - Metformin 1,000 mg PO BID - Lantus 17 units AM 18 units PM - Novolog SSI with Carb Ratio (patient has ratio on phone) - Jardiance 10 units AM -- levothyroxine 200 mcg daily (starting AM) ID: afebrile -- no current concerns Prophylaxis: Patient is at elevated risk for DVT/PE due to BMI, postprocedural state, and Pamerin. --Consider starting Lovenox 24 hours postprocedurally --Incentive spirometry. --SCDs. Other: -- Up with assistance, risk of fall due to dizziness associated with anemia -- Bedside commode Disposition: --Continues to require inpatient hospitalization Patient plan discussed with Dr. Marks attending oxygen therapy teacher and Dr. Tee PGY4. MS4 Janie present for evaluation. Sabrina Mayfield DO, PGY-1 Obstetrics and Gynecology 10/13/22 Associated attestation - Mau Marks MD - 10/14/2022 3:32 AM EDT Agree with plan as outlined. Await repeat troponin. Agree with trial of po an OOB with close follow up of vitals and blood sugars. MAU MARKS MD * Alcon Nevarez RN - 10/13/2022 10:48 PM EDT 2244 SBAR handoff given to Felipa SANTOS. Pt meets criteria for discharge from PACU. Pt hemodynamicallystable, surgical dressing CDI, sierra intact, denies pain and nausea. * Mau Marks MD - 10/13/2022 9:04 PM EDT TC to patient's sister, Maria R Grullon. We reviewed patient had presented with heavy bleeding today at [facility] and Maria R had talked to Zenia this morning and encouraged her to present to the ED. Maria R and I discussed that Zenia had heavy bleeding and had required blood transfusion. We discussed that we had recommended uterine artery embolization to control her bleeding. Maria R noted that another sister has problems with factor 8 where this sister has blood clots and has to be on a blood thinner. Maria R also noted that several of the sisters have uterine fibroids. We discussed that embolization and medication are short term measures to control the bleeding and that we can evaluate more fully with hematology and the day basting puller team to determine a more rodent exterminator plan of care. MAU MARKS MD * Deneen Grider RN - 10/13/2022 8:38 PM EDT ANGIO NURSING DATABASE Name: Zenia Worley Date of : 1990 AGE: 32 y.o. [address]: [address] [place] [id number] (home) Mobile: Telephone Information: Referring Provider: Usama Fang REASON FOR VISIT: Order Questions Answers Is the patient on anticoagulant / antiplatelet therapy ? No laterality of choice Bilateral Reason for exam and clinical history: 32 yo woman, BMI 77, heavy vaginal bleeding - transfusion dependent x 5 u, uterine artery embolization Is the patient ? 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 Onto table supine. All monitors, O2, safety strap in place.Meds per ANESprotocol. Arterial Puncture Post Procedure Time of Arterial Puncture: 2011 Site: LEFT Radial Snuff Box Closure device used: distal Prelude Sync band Time sheath removed: 2099 Time of hemostasis: 2114 Rmove band @ 2129 if no bleeding Laboratory Results: Lab Results Component Value Date INR 1.0 10/13/2022 Lab Results Component Value Date CREATININE 1.09 10/13/2022 Lab Results Component Value Date K 4.7 10/13/2022 Lab Results Component Value Date PLATELET 314 10/13/2022 * Susan Tee MD - 10/13/2022 5:41 PM EDT Brief Gynecology Consult Note: ID: Zenia Worley is a 32 y.o. woman with BMI 77 who is admitted in transfer from [facility] with heavy uterine bleeding resulting in hypotension, requiring transfusion. She has recent TVUS with no structural pathology, thickened endometrial lining. Recent hysteroscopy, D&C with benign endometrial findings. She has been on Aygestin 5 mg BID. SUPERVISOR EXTRUSION team presented to ED [facility] C upon patient arrival for evaluation. Patient is s/p 2 u PRBCs in transport, as well as 1 gm IV TXA. On admission, she had continued heavy vaginal bleeding. Blood pressures with MAPs 60s- 70s. She is reporting lightheadedness and fatigue, as well as chest discomfort. She received 3 additional u PRBCs for Hgb 8.6. SUPERVISOR EXTRUSION recommended administration of IV [id number] mg STAT, given in ED at 1811. External exam notable for ~100 mL bright red blood and clots seen in ~30 minutes. With fluid resuscitation and blood administration, her MAPs improved to 75-77. HR 90s-100s, at times in 110s- 120s. Given ongoing bleeding recommended IR consultation with uterine artery embolization. IR team transferred patient from ED [facility] to IR suite for attempted UAE versus internal iliac embolization. Please see Gynecology H&P for further details. Susan Tee MD PGY-4 10/13/2022 Associated attestation - Mau Marks MD - 10/13/2022 8:36 PM EDT In to see patient with resident team. Patient lying supine in bed. Feels sleepy. She describes feeling a bit short of breath and uncomfortable lying supine, but she does not normally lie in this position. She is not feeling dizzy or lightheaded while lying supine but was having these symptoms this am at home when trying to dress and ambulate. These sx caused her to contact EMS. Agree with description by Dr. Tee regarding bleeding. EKG obtained in ED reviewed but no obvious acute ischemic changes. Will document full admission H&P. Based on patient's heavy bleeding requiring 5 units of PRBC total, we discussed use of IV premarin which was given. After approximately 30 minutes, I returned and patient's bleeding appeared to be about 200 cc with 3 small egg sized clots. This represented the previous hour of observation. I thought the premarin would offer short term control but that it would be ideal to avoid serial doses given her medical comorbidities. In addition, I did not think IV premarin would offer control over a long enough period of time (days) to be able to find a medication regimen to control her bleeding. We therefore recommended UAE and contacted IR as outlined by Dr. Tee. MAU MARKS MD documented in this encounter H&P Notes * Neftali Morrison MD - 10/13/2022 6:26 PM EDT INTERVENTIONAL RADIOLOGY FOCUSED H&P and PRE-PROCEDURE NOTE: PCP: Lia Pearson APRN Referring Provider: Dr. Marks Planned Procedure: Planned procedure: Pelvic angiography and embolization Procedure Indication: Vaginal bleeding Procedure Request: Procedure request received through the Interventional Radiology eDH order queue. Presenting Diagnosis/ Complaint: Zenia Worley is a 32 y.o. female who presented to outside hospital with heavy vaginal bleeding, with hypotension status post 4 units of blood in total and transferred to for higher level of care. On arrival patient is currently hemodynamically stable with alternating bouts of hypotension. IR consulted for uterine artery versus internal iliac artery embolization. Past Medical/Surgical History: Patient Active Problem List Diagnosis Code ??? Essential hypertension, benign I10 ??? Long-term insulin use Z79.4 ??? 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 Mixed hyperlipidemia E78.2 ??? RICHMOND (obstructive sleep apnea) G47.33 ??? Other specified hypothyroidism E03.8 ??? PTSD (post-traumatic stress disorder) F43.10 ??? Schizoaffective disorder F25.9 ??? Type 2 diabetes mellitus with hyperglycemia, with long-term current use of insulin E11.65, Z79.4 ??? Insomnia G47.00 ??? Vitamin D deficiency E55.9 ??? Class 3 severe obesity with body mass index (BMI) of 60.0 to 69.9 in adult E66.01, Z68.44 ??? Vaginal bleeding N93.9 Past Medical History: Diagnosis Date ??? Anemia [...] ANESTHESIA performed by Sabrina Swain MD at [facility] OR ??? PRG ECHOGRAPHY TRANSVAGINAL NON-OB Midline 03/03/2022 ULTRASOUND, TRANSVAGINAL (WRVU 0.69) performed by Sabrina Swain MD at [facility] OR ??? PRO HYSTEROSCOPY, W/ENDO BX N/A 03/03/2022 HYSTEROSCOPY, SURG W/ENDOMETRIAL SAMPLING, POLYPECTOMY (WRVU 4.74) performed by Sabrina Swain MD [facility] OR ??? PRO INSERT INTRAUTERINE DEVICE N/A 03/03/2022 INSERTION OF IUD, VAGINAL APPROACH (WRVU 1.01) performed by Sabrina Swain MD at [facility] OR ??? PRO PELVIC EXAMINATION W ANESTH N/A 03/03/2022 PELVIC EXAM UNDER ANESTHESIA (WRVU 1.75) performed by Sabrina Swain MD at [facility] OR Medications: No current facility-administered medications on file prior to encounter. Current Outpatient Medications on File Prior to Encounter Medication Sig Dispense Refill ??? norethindrone (Aygestin) 5 mg Tablet Take 1 tablet by mouth 2 times daily. 180 tablet 3 ??? acetaminophen (Tylenol) 325 mg Tablet Take 2 tablets by mouth every 4 hours as needed for Pain.90 tablet 1 ??? chlorproMAZINE (Thorazine) 50 mg Tablet Take 50 mg by mouth as needed. ??? QUEtiapine (SEROquel) 200 mg Tablet Take 200 mg by mouth nightly as needed. ??? QUEtiapine (SEROquel) 400 mg Tablet Take 400 mg by mouth nightly. ??? traZODone (Desyrel) 100 mg Tablet Take 100 mg by mouth nightly as needed. ??? semaglutide (Ozempic) 2 mg/dose (8 mg/3 mL) Pen Injector Inject 2 mg subcutaneously every 7 days. ??? Lantus Solostar U-100 Insulin 100 unit/mL (3 mL) pen Inject 12 Units subcutaneously daily. (Patient taking differently: Inject 12 Units subcutaneously 2 times daily. 12 units in the morning and 13 at night.) ??? gabapentin (Neurontin) 300 mg Capsule Take 1 capsule by mouth 2 times daily. 90 capsule ??? ARIPiprazole (Abilify) 15 mg Tablet Take 15 mg by mouth daily. ??? cyanocobalamin, vitamin B-12, 500 mcg Tablet Take 1,000 mcg by mouth Daily. ??? glucose 4 gram Tablet, Chewable CHEW ONE TABLET BY MOUTH EVERY 10 MIN. NEEDED FOR HYPOGLYCEMIA UNTIL SYMPTOMS OF LOW BLOOD SUGAR ARE CONTROLLED ??? ferrous gluconate 324 mg (38 mg iron) Tablet Take 324 mg by mouth 2 times daily. ??? furosemide (Lasix) 40 mg Tablet Take 40 mg by mouth every morning. ??? NovoLOG Flexpen U-100 Insulin 100 unit/mL (3 mL) Insulin Pen Inject 9 Units subcutaneously 3 times daily (before meals). 35 UNITS THIS AM SLIDING SCALE 9-35 UNITS BID ??? levothyroxine (Synthroid) 200 mcg Tablet Take 200 mcg by mouth Daily. ??? losartan (Cozaar) 25 mg Tablet Take 25 mg by mouth daily. ??? metFORMIN XR (Glucophage XR) 500 mg Tablet Sustained Release 24 hr Take 1,000 mg by mouth 2 times daily. ??? metoprolol succinate XL (Toprol-XL) 50 mg Tablet Sustained Release 24 hr Take 50 mg by mouth daily. ??? BD AutoShield Duo Pen Needle 30 gauge x /16 Needle USE UP TO 5 PEN NEEDLES DAILY ??? polyethylene glycoL (Miralax) 17 gram/dose Powder Take 17 g by mouth daily as needed. ??? prazosin (Minipress) 5 mg Capsule TAKE ONE CAPSULE BY MOUTH AT BEDTIME; MAY TAKE ONE NEEDED FOR ANXIETY ??? rosuvastatin (Crestor) 40 mg Tablet Take 1 tablet by mouth nightly. ??? ziprasidone (GEODON) 60 mg Capsule Take 60 mg by mouth 2 times daily (with meals). Allergies: Fluoxetine Social History and Habits: Social History Socioeconomic History ??? Marital status: Single Spouse name: Not on file ??? Number of children: Not on file ??? Years of education: Not on file ??? Highest education level: Not on file Occupational History ??? Not on file Tobacco Use ??? Smoking status: Former ??? Smokeless tobacco: Never Vaping Use ??? Vaping Use: Former ??? Substances: Nicotine Substance and Sexual Activity ??? Alcohol use: Not Currently ??? Drug use: Never ??? Sexual activity: Not Currently Other Topics Concern ??? Not on file Social History Narrative Lives alone, takes care of self. Survivor benefits, SSDI, parents have passed - only source of income. What does a typical day look like? Medical appointments every day. Mental health therapy. Hobbies? Not really right now. Came to [place] from [place] to work at [employer] - took one year to find housing. Not working due diabetic retinopathy. Social Determinants of Health Financial Resource Strain: Not on file Food Insecurity: Not on file Transportation Needs: Not on file Physical Activity: Not on file Housing Stability: Not on file Significant Family History: Family History Problem Relation Age of Onset ??? Uterine Cancer Neg Hx ??? Ovarian Cancer Neg Hx ??? Breast Cancer Neg Hx Pertinent ROS: as per HPI Labs: Lab Results Component Value Date WBC 9.8 (H) 10/13/2022 HCT 25.7 (L) 10/13/2022 PLATELET 314 10/13/2022 INR 1.0 10/13/2022 BUN 19 (H) 10/13/2022 CREATININE 1.09 10/13/2022 ALKPHOS 51 10/13/2022 AST 22 10/13/2022 ALBUMIN 3.4 10/13/2022 BILIDIR 0.1 10/13/2022 BILITOT 0.3 10/13/2022 ALT 38 (H) 10/13/2022 PROT 5.9 (L) 10/13/2022 K 4.7 10/13/2022 Imaging: Outside ultrasound available in PACS. Physical Exam: Pending (to be performed in angio the day of procedure) ASA: Pending (to be assessed in angio the day of procedure) Mallampati Class: Pending (to be assessed in angio the day of procedure) Assessment: 32 y.o. female with heavy vaginal bleeding and hypotension referred for pelvic angiography Reviewed with Attending: Dr. Avila Plan: Planned procedure: Pelvic angiography and embolization Labs to be performed day of procedure: No labs Sedation: Moderate (Conscious sedation) Prophylactic antibiotic : None Contrast: Omnipaque Additional medications for procedure: Lidocaine Planned access site: Left radial Position: Supine Consent: Pending Medications to discontinue (and days held): None Case Urgency:: B- Intervention within 2 hrs 10/13/2022 * Mau Marks MD - 10/13/2022 5:47 PM EDT Images from the original note were not included. Gynecology H & P Problem List: Active Hospital Problems Diagnosis ??? Vaginal bleeding ??? Class 3 severe obesity with body mass index (BMI) of 60.0 to 69.9 in adult ??? RICHMOND (obstructive sleep apnea) ??? Type 2 diabetes mellitus with hyperglycemia, with long-term current use of insulin Resolved Hospital Problems No resolved problems to display. Active Non-Hospital Problems Diagnosis ??? Vitamin D deficiency ??? Insomnia ??? Essential hypertension, benign ??? Long-term insulin use ??? 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 Mixed hyperlipidemia ??? Other specified hypothyroidism ??? PTSD (post-traumatic stress disorder) ??? Schizoaffective disorder History of Present Illness: Zenia Worley is a 32 y.o. G0 with PMH significant for AUB, bleeding disorder, DM, IBS, hypothyroidism, hypertension, RICHMOND (on CPAP), non-specific chest pain, and BMI 72. She presented to [facility] today with dizziness and lightheadedness related to heavy vaginal bleeding. She was treated with blood transfusion and IV hydration and transported here for further care. For her AUB, She underwent a EUA, TVUS, pap, hysteroscopy with myosure curettage, sharp curettage, and Mirena IUD placement on 03/03/[address] Swain. EUA: benign, uterus sounded to 12cm TVUS: 11cm uterus, 2.5 cm globally thickened and vascular endometrium. Normal ovaries. Hysteroscopy: enlarged cavity, global pathology Myosure and sharp curettage: progestin effect, chronic endometritis, no hyperplasia or malignancy Pap: NILM HPV neg Zenia states that her bleeding following the procedure never fully resolved. She continued to havelight and intermittently heavy bleeding. She has been taking 5 mg Aygestin twice daily. She states that she is good at taking the oral medication. She additionally takes PO iron. She began to have markedly heavy bleeding on of last week (10/08/22). She describes heavy bleeding as going through a pack of depends underwear per day. There are 12 depends in a pack and she is soaking the underwear. This morning she was feeling dizzy and short of breath yesterday. She began to feel increasingly fatigued. she would fall asleep sitting up, even when trying to keep herself awake. She thought that if she rested it would improve, but it hadn't when she awoke this morning. She called her [facility] in [facility] because she felt dizzy and lightheaded with just standing. She was instructed to present to medical care, so she then called an ambulance. At [facility], they treated her bleeding with 2 U PRBC and TXA. Hgb was 8.9. Additionally recussitated with IV fluids. They performed a transabdominal US (patient does not tolerate transvaginal due to trauma history) and they did not see the IUD. Upon arrival at [facility], she received an additional 3 units for her bleeding. She was noted to have continued heavy bleeding. The patient states that she continues to feel short of breath and extremelyfatigued. She additionally reported some mild chest pain. She is having some pain from lying flat at the site of her previous gluteal abscess drainage. No pelvic pain. Zenia has always had heavy menses. She had a visit with a steam turbine operator at [facility], but was unable tocomplete the laboratory testing due to transportation. Prior studies were negative for vWF or factor 8 deficiency, though the steam turbine operator suggested repeating labs as these levels can flux. She verbally consents to sharing medical information with her sister as a medical contact. Review of Systems: Review of Systems Constitutional: Positive for fatigue. Respiratory: Positive for chest tightness and shortness of breath. Cardiovascular: Positive for chest pain. Gastrointestinal: Negative for abdominal pain, nausea and vomiting. Genitourinary: Positive for vaginal bleeding. Negative for pelvic pain and vaginal pain. Skin: Positive for pallor. Negative for rash. Neurological: Positive for dizziness, weakness and light-headedness. Negative for syncope. Hematological: Does not bruise/bleed easily. Past Medical and Surgical History: Past Medical History: Diagnosis Date ??? Anemia [...] ANESTHESIA performed by Sabrina Swain MD at [facility] OR ??? PRG ECHOGRAPHY TRANSVAGINAL NON-OB Midline 03/03/2022 ULTRASOUND, TRANSVAGINAL (WRVU 0.69) performed by Sabrina Swain MD at [facility] OR ??? PRO HYSTEROSCOPY, W/ENDO BX N/A 03/03/2022 HYSTEROSCOPY, SURG W/ENDOMETRIAL SAMPLING, POLYPECTOMY (WRVU 4.74) performed by [facility] OR ??? PRO INSERT INTRAUTERINE DEVICE N/A 03/03/2022 INSERTION OF IUD, VAGINAL APPROACH (WRVU 1.01) performed by Sabrina Swain MD at [facility] OR ??? PRO PELVIC EXAMINATION W ANESTH N/A 03/03/2022 PELVIC EXAM [facility]ESIA [facility] performed by Sabrina Swain MD at [facility] OR Past Obstetric History: OB History Para Term AB Living 0 0 0 0 0 0 SAB IAB Ectopic Multiple Live Births 0 0 0 0 0 Past Gynecologic History: Heavy menstrual bleeding Mirena IUD 02/2022 Requires sedation for TVUS Hysteroscopy 02/2022 Prior To Admission Medications: Medications Prior to Admission Medication Sig Dispense Refill Last Dose ??? norethindrone (Aygestin) 5 mg Tablet Take 1 tablet by mouth 2 times daily. 180 tablet 3 ??? acetaminophen (Tylenol) 325 mg Tablet Take 2 tablets by mouth every 4 hours as needed for Pain.90 tablet 1 ??? chlorproMAZINE (Thorazine) 50 mg Tablet Take 50 mg by mouth as needed. ??? QUEtiapine (SEROquel) 200 mg Tablet Take 200 mg by mouth nightly as needed. ??? QUEtiapine (SEROquel) 400 mg Tablet Take 400 mg by mouth nightly. ??? traZODone (Desyrel) 100 mg Tablet Take 100 mg by mouth nightly as needed. ??? semaglutide (Ozempic) 2 mg/dose (8 mg/3 mL) Pen Injector Inject 2 mg subcutaneously every 7 days. ??? Lantus Solostar U-100 Insulin 100 unit/mL (3 mL) pen Inject 12 Units subcutaneously daily. (Patient taking differently: Inject 12 Units subcutaneously 2 times daily. 12 units in the morning and 13 at night.) ??? gabapentin (Neurontin) 300 mg Capsule Take 1 capsule by mouth 2 times daily. 90 capsule ??? ARIPiprazole (Abilify) 15 mg Tablet Take 15 mg by mouth daily. ??? cyanocobalamin, vitamin B-12, 500 mcg Tablet Take 1,000 mcg by mouth Daily. ??? glucose 4 gram Tablet, Chewable CHEW ONE TABLET BY MOUTH EVERY 10 MIN. NEEDED FOR HYPOGLYCEMIA UNTIL SYMPTOMS OF LOW BLOOD SUGAR ARE CONTROLLED ??? ferrous gluconate 324 mg (38 mg iron) Tablet Take 324 mg by mouth 2 times daily. ??? furosemide (Lasix) 40 mg Tablet Take 40 mg by mouth every morning. ??? NovoLOG Flexpen U-100 Insulin 100 unit/mL (3 mL) Insulin Pen Inject 9 Units subcutaneously 3 times daily (before meals). 35 UNITS THIS AM SLIDING SCALE 9-35 UNITS BID ??? levothyroxine (Synthroid) 200 mcg Tablet Take 200 mcg by mouth Daily. ??? losartan (Cozaar) 25 mg Tablet Take 25 mg by mouth daily. ??? metFORMIN XR (Glucophage XR) 500 mg Tablet Sustained Release 24 hr Take 1,000 mg by mouth 2 times daily. ??? metoprolol succinate XL (Toprol-XL) 50 mg Tablet Sustained Release 24 hr Take 50 mg by mouth daily. ??? BD AutoShield Duo Pen Needle 30 gauge x 3/16 Needle USE UP TO 5 PEN NEEDLES DAILY ??? polyethylene glycoL (Miralax) 17 gram/dose Powder Take 17 g by mouth daily as needed. ??? prazosin (Minipress) 5 mg Capsule TAKE ONE CAPSULE BY MOUTH AT BEDTIME; MAY TAKE ONE NEEDED FOR ANXIETY ??? rosuvastatin (Crestor) 40 mg Tablet Take 1 tablet by mouth nightly. ??? ziprasidone (GEODON) 60 mg Capsule Take 60 mg by mouth 2 times daily (with meals). Allergies: Allergies Allergen Reactions ??? Fluoxetine Affected glucose level Family History: Family History Problem Relation Age of Onset ??? Uterine Cancer Neg Hx ??? Ovarian Cancer Neg Hx ??? Breast Cancer Neg Hx Social History and Habits: Social History Socioeconomic History ??? Marital status: Single Spouse name: Not on file ??? Number of children: Not on file ??? Years of education: Not on file ??? Highest education level: Not on file Occupational History ??? Not on file Tobacco Use ??? Smoking status: Former ??? Smokeless tobacco: Never Vaping Use ??? Vaping Use: Former ??? Substances: Nicotine Substance and Sexual Activity ??? Alcohol use: Not Currently ??? Drug use: Never ??? Sexual activity: Not Currently Other Topics Concern ??? Not on file Social History Narrative Lives alone, takes care of self. Survivor benefits, SSDI, parents have passed - only source of income. What does a typical day look like? Medical appointments every day. Mental health therapy. Hobbies? Not really right now. Came to [place] from [place] to work at [employer] transition - took one year to find housing. Not working due diabetic retinopathy. Social Determinants of Health Financial Resource Strain: Not on file Food Insecurity: Not on file Transportation Needs: Not on file Physical Activity: Not on file Housing Stability: Not on file Immunizations: There is no immunization history on file for this patient. Physical Exam: Last Set of Vitals: Last value Range last 24 hrs Temperature Temp: 36 ??C (96.8 ??F) Temp: [36 ??C (96.8 ??F)-36.9 ??C (98.4 ??F)] Heart Rate Heart Rate: (!) 107 Heart Rate: [90-120] Blood Pressure BP: 117/48 BP: (69-138)/(24-77) Respiratory Rate Resp: 18 Resp: [9-25] SpO2 SpO2: 97 % SpO2: [93 %-100 %] Physical Exam Constitutional: Appearance: She is obese. Comments: Drowsy HENT: Head: Normocephalic and atraumatic. Mouth/Throat: Mouth: Mucous membranes are dry. Eyes: Comments: Difficulty keeping eyes open Cardiovascular: Rate and Rhythm: Normal rate and regular rhythm. Heart sounds: Normal heart sounds. Pulmonary: Breath sounds: Normal breath sounds. Comments: Upper airway noisy consistent with RICHMOND Abdominal: General: Abdomen is flat. There is no distension. Palpations: Abdomen is soft. Tenderness: There is no abdominal tenderness. Genitourinary: Labia: Right: No lesion or injury. Left: No lesion or injury. Comments: Initial exam - Dark red clot in the periclitoral region. Blood extending on air pad to the edges ofgluteus bilaterally. 15 minute interval exam - revealed a new large bright red clot on the pad (golf ball size) 30 minute interval exam following Premarin - Bright red blood pooling between gluteal cleft on interval exam Skin: Capillary Refill: Capillary refill takes 2 to 3 seconds. Coloration: Skin is pale. Findings: No bruising. Neurological: Mental Status: She is oriented to person, place, and time. Psychiatric: Comments: Slow thought content Laboratory (Last 24 Hours): CBC Lab Results Component Value Date WBC 15.4 (H) 10/13/2022 Hemoglobin 9.2 (L) 10/13/2022 Hematocrit 27.8 (L) 10/13/2022 Platelets 272 10/13/2022 Electrolytes Lab Results Component Value Date Potassium 4.5 10/13/2022 CO2 22 10/13/2022 Renal Lab Results Component Value Date BUN 18 10/13/2022 Creatinine 0.95 10/13/2022 Glucose Lab Results Component Value Date Glucose Lvl 121 10/13/2022 Coags Lab Results Component Value Date INR 1.0 10/13/2022 PT 10.9 10/13/2022 PTT 24 (L) 10/13/2022 Lab Results Component Value Date/Time FIBRINOGEN 293 10/13/2022 04:50 PM DDIMER 411 10/13/2022 04:50 PM Lab Results Component Value Date/Time TROPONINTHS 16 (H) 10/13/2022 06:20 PM Assessment/Plan: #symptomatic acute blood loss anemia #AUB S/p 5 U PRBCs. - Complete transfusion - DIC panel - Fu labs, Hgb - Premarin - IR uterine artery embolization - Prolonged monitoring - Admit following procedure #elevated troponin - Trend troponin - EKG This patient was seen and discussed with attending Appliance Service Supervisor physician. Sabrina Mayfield DO, PGY-1 Obstetrics and Gynecology 10/13/22 I have seen and evaluated the patient and reviewed the above history with Dr. Mayfield. I agree with thedetails as written. The assessment and plan were formulated in discussion with me and I agree with them as documented. 32 year old G0 presents with AUB and hypotension at OSH requiring blood transfusion and volume resuscitation as outlined. Patient is interviewed and examined lying supine. She describes feeling uncomfortable lying in thisposition due to chest heaviness and pain from prior gluteal surgery. At the time of our interview she was not feeling dizzy or lightheaded but she had not had the head of the bed raised. She thinks her chest discomfort is due to lying flat. She does appear sleepy but she responds to questions appropriately. She denies any radiation of pain, n/v, sweating. Exam today as described including vitals reviewed in note.. On initial exam, pt had had chux underneath her for 30 minutes or so and had about 100 cc of dark blood and 20 cc egg size clot. After returning 30 minutes later, two additional similar sized clots seen. EKG does not demonstrate any acute changes. Trop slightly elevated AUB -possibly multiple causes including anovulatory bleeding, factor VIII or other bleeding disorder. Pt also with FHx fibroids but this was not seen on prior US or hysteroscopy. -IV premarin given in ED. Only modest bleeding seen in ED However, given significant nature of bleeding and only short term efficacy of IV estrogen, we discussed UAE for improved control. CP -overall clinical picture c/w chest discomfort related to lying supine and effect of position on pulmonary function. There could be a component of demand ischemia given her significant bleeding but Idon't think this is the cause of her discomfort which has been longlasting and positional in naturewo associated EKG changes. Will follow serial troponins and address underlying volume status and anemia. Chronic medical concerns: DM -will hold routine regimen since pt has had low blood glucoses here -will place on insulin resistent sliding scale and observe after UAE before returning to home regimen -Schizoaffective disorder Will given home psych regimen but may hold doxepin and seroquel after anesthesia due to sedation -RICHMOND Will consult RT postprocedure for use of CPAP MAU MARKS MD documented in this encounter ED Notes * Jase Lopez MD - 10/13/2022 11:57 PM EDT ED Resident Note HPI: Zenia Worley is a 32 y.o. female with a past medical history significant for RICHMOND, type 2 diabetes,severe obesity, PTSD, schizoaffective disorder, hypertension, menorrhagia who presents to the Emergency Department from an outside hospital due to large-volume vaginal bleeding. History is obtained from the patient as well as EMS as well as chart review from the outside hospital. Patient states that she has been having significant vaginal bleeding for approximately 5 days. She states that she hasbeen bleeding significantly, and today she began feeling dizzy, short of breath, and noticed increased bleeding. She reported to an outside hospital where she was noted to be still having vaginal bleeding with clotting, she was given 2 minutes PRBCs as well as TXA after hemoglobin dropped from 14s-->8s. She had a transabdominal ultrasound performed at that time, which did not show her IUD in place and her uterus, and could not visualize the right ovary. She was transferred to [facility] for higherlevel of care. She states she does not currently feel lightheaded, she is not having chest pain, shortness of breath, she is not experiencing any vaginal discomfort. ROS as per HPI Vitals: ED Triage Vitals BP: (!) 93/39 [10/13/22 163] Heart Rate: (!) 102 [10/13/22 163] Resp: 16 [10/13/221633] Temp: 36.7 ??C (98.1 ??F) [10/13/221633] Temp src: Oral [10/13/221633] SpO2: 100 % [10/13/221633] O2 Device: RA [10/13/221633] O2 Flow Rate (L/min): 6 L/min [10/13/222125] Physical Exam Exam conducted with a supervisor telephone information present. Constitutional: Comments: Lying in bed, tired appearing HENT: Head: Comments: Normocephalic atraumatic Eyes: Comments: No scleral icterus, no injection, pupils equal round and reactive to light Cardiovascular: Comments: Regular rate and rhythm, no murmurs, rubs, gallops Pulmonary: Comments: Clear to auscultation bilaterally, no wheezes, no rhonchi, no rales Abdominal: Comments: Abdomen soft, nontender, nondistended Genitourinary: Comments: Passing large size clots, greater than half dollar size. Neurological: Comments: Alert and oriented x3 ED Course as of 10/14/22 0002 WedOctober 13, 2022 [id number] Referral Agent paged Procedures Assessment and Plan: 32 y.o. female with a past medical history significant for RICHMOND, type 2 diabetes, severe obesity, PTSD, schizoaffective disorder, hypertension, menorrhagia who presents to the Emergency Department from an outside hospital due to large- volume vaginal bleeding. On arrival, the patient is hypotensive, she is tired appearing, she is passing large volume clots from her vagina. Gynecology immediately paged, block release of blood ordered given that the patient was hypotensive to the 80s and slightly tachycardic. She was also 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 to the 70s, started aD10 infusion given this finding. Transfusion initiated, patient became hypotensive between changes of the units of blood being transfused. Patient received a total of 3 units PRBCs in the emergency department. Patient rapidly seen by the [facility] team who ordered IV estrogen to attempt to stop her vaginal bleeding. She was subsequently evaluated by interventional radiology for arterial embolization per the request of [facility]. Patient did not require any vasoactive medications to support her blood pressure while in the emergency department. She was admitted to the [facility] service and taken to the IR suite for embolization. The visit findings, diagnosis, and care plan were discussed with the patient. Jase Lopez MD Resident 10/14/22 0008 Associated attestation - Estee Zeng MD - 10/17/2022 2:05 PM EDT ED ATTENDING ATTESTATION NOTE The patient was seen in conjunction with the resident physician. I have independently performed thekey portions of the history and physical exam. I have reviewed the diagnostic studies including labs, imaging studies and EKGs. I have discussed the details of the case with the resident and agree with the assessment and plan as described in the resident note unless noted below or in my separate note. Brief Summary: 32 y.o. female with a history of heavy irregular menstruation, transferred from outside hospital for heavy dysfunctional uterine bleeding. Patient states that she has ongoing bleeding for numerous days very heavy for the past 5 days. She has had heavy bleeding and clot passage. With associated lightheadedness and dizziness. No loss of consciousness. Per report from outside hospital she was given 2 units of packed red blood cells as well as TXA. She had a negative test per her report. In route patient was hypotensive. On arrival patient was hypotensive and 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. She has a history of diabetes and took her morning insulin. States she had received glucose per EMS. Recurrent glucose in the 70s. Normal mentation. Patient hypotensive and tachycardic. Plan for 2 large-bore IVs. Acute block release for blood transfusion. To initiate a D10 infusion. With frequent glucose monitoring. Gynecology urgently consulted. Patient received 2 units of packed red blood cells and persistent persistent bleeding plan for interventional radiology possible embolization. Admitted to gynecology for further management of severe dysfunctional uterine bleeding. CRITICAL CARE DOCUMENTATION: Is there a high potential of sudden, clinically significant, or life threatening deterioration? Yes Are there life and/or organ supporting interventions that require frequent personal assessment and manipulation or support to treat/prevent vital organ failure/deterioration? yes I personally performed 20 minutes of aggregate critical care time exclusive of procedures and teaching during this emergency department visit. This includes time spent during direct patient evaluation and reassessment, interpreting diagnostic tests, directing life and/or organ supporting interventions, and documentation. * Juju Richmond RN - 10/13/2022 7:20 PM EDT Pt brought to IR by this RN. Report given to the IR LEISURE STUDIES PROFESSOR and other staff. * Estephania Baird RN - 10/13/2022 6:50 PM EDT IR MD and Anesthesia MD here to consent pt for procedure. * Estephania Baird RN - 10/13/2022 5:52 PM EDT OBGyn notified that it will be a little bit for the Premarin to be drawn up and brought up to the ED for administration. * Estephania Baird RN - 10/13/2022 5:36 PM EDT Warm blankets applied. * Estephania Baird RN - 10/13/2022 4:45 PM EDT Pt unstable from severe vaginal bleeding, as seen by vital signs. Pt advised of need for emergent blood. Consents not obtained due to this. ED Resident and Attending at bedside. Block release orderedand being administered per Protocol. * Gato Camilo RN - 10/13/2022 3:41 PM EDT Sending Facility: [facility] Reason for Transfer: oxygen therapy teacher services Report: Pt c/o vaginal bleeding with clot for a few days and is c/o being dizzy now . Pt found to have hgb 8.9 and got 1 U PRBC and 1g TXA Vital Signs: Pulse: 101 B/P: 101/55 Resp: 16 SPO2: 98 O2 LPM: ra GCS: 15 BGL: 70 Temp: 98.6 Transporting Service: ems Time of Departure: 1529 ETA: * Zan Meade MD - 10/13/2022 2:53 PM EDT EM attending brief transfer acceptance note: Zenia Worley is a 32 y.o. who I accepted in transfer from Dr. Fang, [facility] ED The patient will be evaluated in the Emergency Department for vaginal bleeding The EM team will contact the Referral Agent team as needed The OSH does not agree to take the patient back in transfer after our evaluation and treatment. Transfer and stabilization prior to transfer were not discussed This is a 32-year-old female with a history of anovulatory uterine bleeding status post hysteroscopy and IUD placement at [facility] in February 2022 who presented to the outside hospital with heavy vaginalbleeding. Her symptoms started approximately 6 days prior and included heavy bleeding and passage of clots. She has been lightheaded and had an episode of syncope. Blood pressure has been in the 96-106/51-54 range with heart rates of approximately 100. Pelvic exam with blood and clots. Her hemoglobin has dropped from 13.1 on October 08 to 8.9 today. She has been given 2 units of packed red cells and 1 g of TXA. A pelvic ultrasound was performed and the IUD was not seen and the patient is not aware o f passing it. It is unclear whether the patient is still taking her Aygestin. Dr. Swain from [facility] was on the call the patient will be transferred for evaluation in our ED by the ED team and by Referral Agent. Based on the extent of the patient's current/ongoing bleeding, she may be given additional IV estrogenprior to transport. 15:09: Subsequent call from Dr. Fang with additional information and updates: 1. Initial w/u including CT head/face/C-spine in light of syncope and fall was performed and read as negative for acute injury. 2. ECG was performed during ED course and showed subtle ST elevations in leads 1, 2, V5, V6 not seen on priors. No active chest pain today or in the ED but some yesterday. Initial troponin negative. Repeat troponin pending. 3. Decrease in rate of bleeding over the last hour or so They will hold off on giving iv estrogen for now including in light of that, patient already receiving TXA and potential risk/benefit. Zan Meade MD 10/13/22 2939 Zan Meade MD 10/13/22 1506 Zan Meade MD 10/13/22 1519 documented in this encounter Miscellaneous Notes * Care Management Discharge - Bernadette Moody RN - 10/15/2022 2:29 PM EDT CARE MANAGEMENT FINAL DISCHARGE NOTE Chart reviewed, care reviewed with primary team and at interdisciplinary rounds. Patient is medically ready for discharge to home. Needs for Transition of Care: Plan for discharge is: Home w/o Services Outpatient Agency/Support Group Needs: None Agency Referrals & Follow-up Care: Transportation: health plan transportation Medicaid RTC will pick pt up at 4pm Wheelchair van/Ambulance? No Functional status prior to admission: Independent Home Environment: Others in the home: alone. Current Living Arrangements: home/apartment/condo. Accessibility Concerns:2STEwith a ramp and elevator to 1 level apt. Current Functional Ability: Independent DME used at home: fall alert device, respiratory supplies (CPAP) DME Needed at Discharge: none Patient is insured through: Primary Insurance: MEDICARE Payor: MEDICARE / Plan: MEDICARE PART A & B / Product Type: *No Product type* / Secondary Insurance: MEDICAID [place] Prescription Coverage: This plan was formulated with input from patient, and team. All are in agreement with plan. CAPO Curry,adjunct psychology professor Team Case Management Pager #[phone] * Plan of Care - Felipa Alamo RN - 10/15/2022 4:58 AM EDT OUTCOME EVALUATION NOTE: OUTCOME SUMMARY: Patient's pain controlled with scheduled and PRN pain medication. Patient cooperative with care andresting between care. Night time home meds restarted this shift. Long acting insulin started this shift. Still passing some clots, smaller in size. No adverse events this shift. Patient remains tachycardic. CPAP utilized overnight. Will continue to monitor and help patient reach d/c goals. PLAN MOVING FORWARD: Monitor bleeding Pain control Mobilize D/c planning INDIVIDUALIZED FALL PREVENTION: Patient is currently a high risk to Fall. Patient educated on bed/chair alarm, demonstrates proper use of call neal and verbalizes understanding of fall preventions implemented. Patient-specific fall risk factors per assessment: [current deficits]: Bleeding, Pain, Medications,Hospital Environment. Assistance [level of assistance required for transfers and ambulation]: SBA Supervision [direct monitoring required during toileting and ADLs]: Eyes on per unit protocol when OOB/with ADL's Surveillance [continuous indirect monitoring]: Stellao, Purposeful Rounding, Nurse Knowledge Exchange * Plan of Care - Prabha De Souza RN - 10/14/2022 4:50 PM EDT OUTCOME EVALUATION NOTE: OUTCOME SUMMARY: Pt is A&Ox4. BP stable, HR increases to 130-140's with activity, on RA. Pt denies N/V, CP, SOB.Reports R eye pain and mild headache, tylenol admin'd with good effect. Pt continues with mild vaginal bleeding and reports much improved. Passed 2 clots, silver dollar sized, this shift. OOB to BSC with SBA, denies dizziness. IVF SL'd. Pt with +PO intake. Echo complete. Call neal within reach. PLAN MOVING FORWARD: Monitor bleeding and labs Mobilize D/c planning INDIVIDUALIZED FALL PREVENTION INTERVENTIONS: Patient-specific fall risk factors per assessment: [current deficits]: bleeding, hospital environment, gen weakness Assistance [level of assistance required for transfers and ambulation]: SBA Supervision [direct monitoring required during toileting and ADLs]: Eyes on Surveillance [continuous indirect monitoring]: Masimo, hourly rounding, nurse knowledge exchange Patient-specific fall prevention interventions for sensory deficits provided, if applicable: [X] N/A Problem: Infection Goal: Absence of Infection Signs and Symptoms Outcome: Outcome (s) achieved * Consult Note - Gertrude Davenport RN - 10/14/2022 3:03 PM EDT Images from the original note were not included. Certified Wound Care Nurse Note Situation: Asked to see Zenia Worley by Caryl Pearce MD for 32 yo with BMI 77 and known sacral ulcer. Admitted for heavy vaginal bleeding. Appreciate assessment and recommendations and by Sabrina Mayfield DO for Has been chronic with debridement and cellulitis in the past. Background: eD-H notes reviewed for history, admitting diagnosis and active problem list. Wound Assessment and Care Provided: Consult performed in conjunction with Estella Massey RN [facility]. Patient seen today in room 304B in bed,reason for visit explained to patient, permission received to assess skin. Primary RN present for assessment. Anatomical location: gluteal cleft Dressing removed: open to air Cleansed with: Dermal wound cleanser, gauze Wound: skin is intact Skin: scar tissue on the glutes. Thin, pink epithelial tissue in the gluteal cleft. Dressing applied: CriticAid Clear Moisture Barrier Ointment Photos taken: Bilateral glutes Gluteal cleft Vaughn Score: 19 Nutritional Status Wt Readings from Last 1 Encounters: 10/13/22 (!) 185.1 kg (408 lb) Body mass index is 77.09 kg/m??. Labs Lab Results Component Value Date ALBUMIN 3.5 10/14/2022 ALBUMIN 3.2 10/13/2022 ALBUMIN 3.4 10/13/2022 HA1C 6.2 (H) 11/12/2021 WBC 11.8 (H) 10/14/2022 WBC 15.1 (H) 10/14/2022 WBC 15.4 (H) 10/13/2022 HGB 9.5 (L) 10/14/2022 HGB 9.9 (L) 10/14/2022 HGB 9.2 (L) 10/13/2022 HCT 28.5 (L) 10/14/2022 HCT 29.1 (L) 10/14/2022 HCT 27.8 (L) 10/13/2022 PLATELET 278 10/14/2022 PLATELET 288 10/14/2022 PLATELET 272 10/13/2022 INR 1.0 10/13/2022 PT 10.9 10/13/2022 Current bed: [facility]. Okay to switch to Compella if more width is needed for comfort. Assessment: There is a reported history of cellulitis of the gluteal region. There is scar tissue that is consistent with prior full-thickness wounds of the glutes. The gluteal cleft is misshapen due to scar tissue formation. It is also deep, therefore making it prone to trapped moisture and moisture-associated skin damage (MASD). There is thin, pink epithelial tissue deep in the gluteal cleft, which suggests recently resurfaced MASD. Currently, no open areas in the gluteal cleft are appreciated. Implementing a moisture barrier ointment as recommended below will help condition the skin and protect against ongoing MASD. Wound Care Recommendations: Gluteal cleft: apply CriticAid Clear Moisture Barrier Ointment BID and PRN. Do not use Mepilex Border Sacrum while this ointment is in use. Follow hospital standard for pressure injury prevention and skin care. Refer to adult/pediatric pressure injury prevention job aid in the clinical policy library. Wound Care will complete the consult at this time. If there are further issues please re-consult via eD-H. Discussed plan with: RN: Prabha Please contact Gertrude Davenport RN on pager [phone] or the wound care team at [phone] or pager [phone] with skin and wound care concerns or questions. Electronically Signed By: Gertrude Davenport RN * Initial Assessments - Bernadette Moody RN - 10/14/2022 11:57 AM EDT Office of Care Management Initial Assessment Bernadette Moody RN reviewed record and discussed patient with Care Team. Source of Information: Team, bedside nurse, medical record, and Patient Introduced self/reviewed role; services accepted. Reason for Hospitalization: vaginal bleeding hemorraghic shock Past medical History: Past Medical History: Diagnosis Date ??? Anemia [...] apnea ??? Spinal paralysis ??? Transfusion history Hospitalizations Within the Past 30 Days: no previous admission in last 30 days Current Decision-Making Capacity: Self If AD's have not been completed the following surrogate would be surrogate decision maker per [place] surrogate decision making law. (Only good for 180 days) Any patient receiving care in [place] must abide by [place] law. The hierarchy for surrogate decision making is: (a) Patient???s spouse or civil union partner unless there is a divorce proceeding, separation agreement, or restraining order limiting that person???s relationship with the patient. (b) Any adult son or daughter of the patient. (c) Either parent of the patient. (d) Any adult brother or sister of the patient. Maria R (e) Any adult grandchild of the patient. (f) Any grandparent of the patient. (g) Any adult aunt, uncle, niece, or nephew of the patient. (h) A close friend of the patient. (i) The agent with financial power of transactional attorney or a conservator appointed in accordance with RSA 464-A. (j) The guardian of the patient???s estate. Advance Care Planning: Attempt Cardiopulmonary Resuscitation - Inpatient <no information> -Advanced Directive: No, declines Current Coping/Education/Information Needs: patient has an understanding of hospital plan. Current Functional Ability: Assistive Person Functional Status Prior to Admission: Independent Prior ADLs & IADLs: Independent with all ADLs & IADLs Home Environment: Others in the home: alone. Current Living Arrangements: home/apartment/condo. Accessibility Concerns:2STEwith a ramp and elevator to 1 level apt. Resource / Environmental Concerns: Resource/Environmental Concerns: none Current DME: fall alert device, respiratory supplies (CPAP) Home Address confirmed as: [address] [facility] [address] Social & Family Supports: All names listed below confirmed with patient as current and correct Extended Emergency Contact Information Primary Emergency Contact: maria r [place] Mobile Relation: Sibling Current Care Provided by: self Provides Primary Care For: no one Caregiver if needed: sibling(s) Quality of Family relationships: supportive Community Resources being provided currently: none Behavioral Health History: schizophrenia Substance Use/Abuse confirmed: Social History Tobacco Use Smoking Status Former Smokeless Tobacco Never 0 No problems reported 1-2 Low level 3-5 Moderate level 6-8 Substantial level 9- 10 Severe level 0 to 7 points: Low risk 8 to 15 points: Medium risk 16 to 19 points: High risk 20 to 40 points: Addiction likely Other Pertinent/Service Specific Information: Health/Prescription Coverage: Primary Insurance: MEDICARE Payor: MEDICARE / Plan: MEDICARE PART A & B / Product Type: *No Product type* / Secondary Insurance: MEDICAID [place] ONLY if patient has Medicare A&B - Does this patient have secondary insurance?: Yes (medicaid [place]) ; Prescription Coverage: Preferred Pharmacy: [id number] [address] [place] Status: Patient is a : No Primary Care Provider confirmed: Lia Pearson APRN [phone] Patient/Caregiver Goals of Treatment: Patient would like to return home when bleeding is improved. Potential Needs for Transition of Care: none Agency Referrals: Not Applicable Transportation: no concerns Transportation Anticipated: family or friend will provide Concerns to be Addressed: denies needs/concerns at this time Assessment: Patient is admitted to [facility] service for vaginal bleeding Plan: Consult wound for wound on left gluteus, consult cardiology for increase trop and try to weanO2. A member of the Care Management team will continue to monitor progress, follow for continuity of care and assist with transition of care planning. CAPO Curry,adjunct psychology professor Team Case Management Pager #[phone] * Plan of Care - Felipa Alamo RN - 10/14/2022 5:23 AM EDT OUTCOME EVALUATION NOTE: OUTCOME SUMMARY: Patient denies pain this shift. Patient cooperative with care and resting between care. Patient continues to have vaginal bleeding, per patient it is much less than before. X2 large blood clots passed this AM when up to commode - provider made aware. X1 BM this shift. IVF running per order. Patientremains tachycardic overnight. Patient on 2L NC/CPAP overnight. Sierra in place overnight. Troponin elevated, per provider cardiology will be consulted. Cardiology came by this AM, wants pt to have echo. Will continue to monitor and help patient reach d/c goals. PLAN MOVING FORWARD: Echo per cardiology recommendations Q4H fingersticks Monitor bleeding Mobilize D/c planning INDIVIDUALIZED FALL PREVENTION: Patient is currently a high risk to Fall. Patient educated on bed/chair alarm, demonstrates proper use of call neal and verbalizes understanding of fall preventions implemented. Patient-specific fall risk factors per assessment: [current deficits]: Medications, Hospital Environment. Assistance [level of assistance required for transfers and ambulation]: Not OOB yet Supervision [direct monitoring required during toileting and ADLs]: Eyes on per unit protocol when OOB/with ADL's Surveillance [continuous indirect monitoring]: Brigitte Quan Rounding, Nurse Knowledge Exchange * Consult Note - Dmitriy Miller MD - 10/14/2022 4:47 AM EDT Images from the original note were not included. [facility] [place] [address] [address] INPATIENT CARDIOLOGY CONSULT NOTE Date of Consultation: 10/14/2022 Admit Date: 10/13/2022 Place of Service: [facility] Responsible Attending: Mau Marks MD Hospital Day 1 day Reason for Consult: Troponin leak Active Problems: Active Hospital Problems Diagnosis ??? Vaginal bleeding ??? Class 3 severe obesity with body mass index (BMI) of 60.0 to 69.9 in adult ??? RICHMOND (obstructive sleep apnea) ??? Type 2 diabetes mellitus with hyperglycemia, with long-term current use of insulin Last Assessment & Plan: Controlled A1C 6.2 [...] weeks or sooner with concerns. MALB today. Resolved Hospital Problems No resolved problems to display. HPI: Zenia Worley is a 32 y.o. female with PMH of abnormal uterine bleeding, DM2 on insulin, hypothyroidism, hypothyroidism, hypertension, RICHMOND (on CPAP), severe obesity (BMI 77), PTSD, schizoaffective disorder who initially presented to an OSH yesterday with large amounts of vaginal bleeding. She was given 2u pRBC and 1g of TXA prior to transfer and when she arrived she received an additional 3u pRBC(total of 5 units) for intermittent hypotension never requiring pressors. She ultimately underwent pelvic angiography and embolization of her uterine arteries although there was no evidence of activeextravasation. Cardiology was consulted as she had an episode of chest pain earlier in the day with a HS-trop thatwas technically positive from 6 --> 12. Patient describes that when she arrived to [facility] she felt an uncomfortable and sharp pain in the left side of her chest that was non radiating and lasted for around 5 minutes before resolving without any additional intervention. She has never felt that discomfort before but she admits that she is not too active (although able to get around her apartment without difficulty). Since that 5 minute episode she has not felt any further symptoms and is overall doing well. Denies any family history of early heart disease. Review of Systems: 11 point ROS is either negative or per HPI Past Medical History: Past Medical History: Diagnosis Date ??? Anemia [...] paralysis ??? Transfusion history Past Surgical History: Past Surgical History: Procedure Laterality Date ??? CHG CYTOPATH,CERV/VAG,AUTO THIN LAYER,INTERP N/A 03/03/2022 PAP SMEAR UNDER ANESTHESIA performed by Sabrina Swain MD at [facility] MAIN OR ??? PRG ECHOGRAPHY TRANSVAGINAL NON-OB Midline 03/03/2022 ULTRASOUND, TRANSVAGINAL (WRVU 0.69) performed by Sabrina Swain MD at [facility] MA[facility] OR ??? PRO HYSTEROSCOPY, W/ENDO BX N/A 03/03/2022 HYSTEROSCOPY, SURG W/ENDOMETRIAL SAMPLING, POLYPECTOMY (WRVU 4.74) performed by Sabrina Swain MD [facility] OR ??? PRO INSERT INTRAUTERINE DEVICE N/A 03/03/2022 INSERTION OF IUD, VAGINAL APPROACH (WRVU 1.01) performed by Sabrina Swain MD at [facility] OR ??? PRO PELVIC EXAMINATION W ANESTH N/A 03/03/2022 PELVIC EXAM UNDER ANESTHESIA (WRVU 1.75) performed by Sabrina Swain MD at [facility] OR Allergies: Allergies Allergen Reactions ??? Fluoxetine Affected glucose level Out-Patient Medications: Medications Prior to Admission Medication Sig Dispense Refill Last Dose ??? norethindrone (Aygestin) 5 mg Tablet Take 1 tablet by mouth 2 times daily. 180 tablet 3 ??? acetaminophen (Tylenol) 325 mg Tablet Take 2 tablets by mouth every 4 hours as needed for Pain.90 tablet 1 ??? chlorproMAZINE (Thorazine) 50 mg Tablet Take 50 mg by mouth as needed. ??? QUEtiapine (SEROquel) 200 mg Tablet Take 200 mg by mouth nightly as needed. ??? QUEtiapine (SEROquel) 400 mg Tablet Take 400 mg by mouth nightly. ??? traZODone (Desyrel) 100 mg Tablet Take 100 mg by mouth nightly as needed. ??? semaglutide (Ozempic) 2 mg/dose (8 mg/3 mL) Pen Injector Inject 2 mg subcutaneously every 7 days. ??? Lantus Solostar U-100 Insulin 100 unit/mL (3 mL) pen Inject 12 Units subcutaneously daily. (Patient taking differently: Inject 12 Units subcutaneously 2 times daily. 12 units in the morning and 13 at night.) ??? gabapentin (Neurontin) 300 mg Capsule Take 1 capsule by mouth 2 times daily. 90 capsule ??? ARIPiprazole (Abilify) 15 mg Tablet Take 15 mg by mouth daily. ??? cyanocobalamin, vitamin B-12, 500 mcg Tablet Take 1,000 mcg by mouth Daily. ??? glucose 4 gram Tablet, Chewable CHEW ONE TABLET BY MOUTH EVERY 10 MIN. NEEDED FOR HYPOGLYCEMIA UNTIL SYMPTOMS OF LOW BLOOD SUGAR ARE CONTROLLED ??? ferrous gluconate 324 mg (38 mg iron) Tablet Take 324 mg by mouth 2 times daily. ??? furosemide (Lasix) 40 mg Tablet Take 40 mg by mouth every morning. ??? NovoLOG Flexpen U-100 Insulin 100 unit/mL (3 mL) Insulin Pen Inject 9 Units subcutaneously 3 times daily (before meals). 35 UNITS THIS AM SLIDING SCALE 9-35 UNITS BID ??? levothyroxine (Synthroid) 200 mcg Tablet Take 200 mcg by mouth Daily. ??? losartan (Cozaar) 25 mg Tablet Take 25 mg by mouth daily. ??? metFORMIN XR (Glucophage XR) 500 mg Tablet Sustained Release 24 hr Take 1,000 mg by mouth 2 times daily. ??? metoprolol succinate XL (Toprol-XL) 50 mg Tablet Sustained Release 24 hr Take 50 mg by mouth daily. ??? BD AutoShield Duo Pen Needle 30 gauge x /16 Needle USE UP TO 5 PEN NEEDLES DAILY ??? polyethylene glycoL (Miralax) 17 gram/dose Powder Take 17 g by mouth daily as needed. ??? prazosin (Minipress) 5 mg Capsule TAKE ONE CAPSULE BY MOUTH AT BEDTIME; MAY TAKE ONE NEEDED FOR ANXIETY ??? rosuvastatin (Crestor) 40 mg Tablet Take 1 tablet by mouth nightly. ??? ziprasidone (GEODON) 60 mg Capsule Take 60 mg by mouth 2 times daily (with meals). In-Patient Medications: ??? ziprasidone 60 mg Oral BID WC ??? sodium chloride 0.9 % (flush) 5 mL Intravenous BID ??? senna-docusate 2 tablet Oral BID ??? verapamiL ??? heparin (porcine) ??? nitroGLYcerin ??? sugammadex ??? ondansetron 4 mg Intravenous Once ??? insulin lispro 2-12 Units Subcutaneous Q4H NICOLÁS ??? norethindrone 5 mg Oral BID ??? levothyroxine 200 mcg Oral Daily ??? sodium chloride 0.9% 100 mL/hr (10/13/22 9874) Family and Social History: Family History Problem Relation Age of Onset ??? Uterine Cancer Neg Hx ??? Ovarian Cancer Neg Hx ??? Breast Cancer Neg Hx Only family hx of heart disease is an aunt that had an MA at the age of 78. Social History Socioeconomic History ??? Marital status: Single Spouse name: Not on file ??? Number of children: Not on file ??? Years of education: Not on file ??? Highest education level: Not on file Occupational History ??? Not on file Tobacco Use ??? Smoking status: Former ??? Smokeless tobacco: Never Vaping Use ??? Vaping Use: Former ??? Substances: Nicotine Substance and Sexual Activity ??? Alcohol use: Not Currently ??? Drug use: Never ??? Sexual activity: Not Currently Other Topics Concern ??? Not on file Social History Narrative Lives alone, takes care of self. Survivor benefits, SSDI, parents have passed - only source of income. What does a typical day look like? Medical appointments every day. Mental health therapy. Hobbies? Not really right now. Came to [place] from [place] to work at [employer] transition - took one year to find housing. Not working due diabetic retinopathy. Social Determinants of Health Financial Resource Strain: Not on file Food Insecurity: Not on file Transportation Needs: Not on file Physical Activity: Not on file Housing Stability: Not on file 1 pack year hx of smoking. Last value Range last 8 hrs Temperature Temp: 36.7 ??C (98.1 ??F) Temp: [36 ??C (96.8 ??F)-36.7 ??C (98.1 ??F)] Heart Rate Heart Rate: (!) 109 Heart Rate: [107-120] Blood Pressure BP: 99/54 BP: (89-117)/(41-73) Respiratory Rate Resp: 18 Resp: [15-24] SpO2 SpO2: 97 % SpO2: [93 %-99 %] I's and O's: Intake/Output Summary (Last 24 hours) at 10/14/2022 0447 Last data filed at 10/14/2022 0319 Gross per 24 hour Intake 1602 ml Output 750 ml Net 852 ml Weights: Wt & BMI By Encounter Date Flowsheet Row ED to Hosp-Admission (Current) from 10/13/2022 in Surgical Unit Level 3 Wing D at [facility] TH Visit (TeleHealth) from 05/29/2022 in Weight and Wellness at [facility] Weight 185.1 kg (408 lb) 1 10/13/2022 1634 192.9 kg (425 lb 4.8 oz) [self report] 1 05/29/2022 1406 BMI 77.08 1 10/13/2022 1634 -- Physical Exam: General: Obese, pleasant female in no acute distress Cardiac: Regular tachycardic rate and rhythm, S1/S2 auscultated. No obvious murmurs, rubs, or gallops appreciated. Unable to appreciate JVP. Respiratory: Diminished breath sounds bilaterally. No crackles, rhonchi, or wheeze Extremities: Warm, trace lower extremity edema Neuro: Alert and oriented Skin: Warm, dry Psych: Normal affect Labs: CBC: Recent Labs 10/14/2222410/13/22224410/13/22 1650 WBC 15.1* 15.4* 9.8* HGB 9.9* 9.2* 8.3* PLATELET 288 272 314 Chemistry: Recent Labs 10/14/2222410/13/22224410/13/22 1650 NA 137 136 137 K 4.9 4.5 4.7 CL 104 104 104 CO2 22 22 24 BUN 18 18 19* CREATININE 0.90 0.95 1.09 GLUCOSE 106 121 73 Recent Labs 10/14/2222410/13/22224410/13/22 1650 CALCIUM 8.2* 7.9* 8.5 LFT's: Recent Labs 10/14/2222410/13/22224410/13/22 1650 BILITOT 0.8 0.8 0.3 BILIDIR -- -- 0.1 ALBUMIN 3.5 3.2 3.4 ALKPHOS 50 46 51 ALT 41* 37* 38* AST 24 21 22 Coags: Recent Labs 10/13/22 1650 PT 10.9 INR 1.0 PTT 24* FIBRINOGEN 293 DDIMER 411 BNP ProBNP Date Value Ref Range Status 10/13/2022 <36 <=124 pg/mL Final ECG 10/13/22 NSR: Early J point elevation in inferolateral leads. Assessment: Zenia Worley is a 32 y.o. female with PMH of abnormal uterine bleeding, DM2 on insulin, hypothyroidism, hypothyroidism, hypertension, RICHMOND (on CPAP), severe obesity (BMI 77), PTSD, schizoaffective disorder who presented to [facility] with hemorrhagic shock and was subsequently found to have a mild HS-troponin elevation from 6 --> 12 (technically positive). Even though she had some symptoms earlier in the day, it is likely that this was in the setting of her acute bleed as she was borderline hypotensive at the time (BP 93/32) and this was not a true plaque rupture ACS event. She does have risk factors in the setting of DM2, HTN, and obesity however it would be unusual (but not unheard of) to have an ACS event at the age of 32. As such will get a TTE in the AM to assess for WMA but will not start antiplatelets/anticoagulants as the suspicion for ACS is extremely low and patient was just admitted yesterday with an acute bleed. Dr. Mayfield has asked for an investigation into high-output heart failure or vascular etiology for her bleed however I think both are unlikely. While her exam is difficult and proBNP is completely unreliable I do not think that she is in an acute heart failure exacerbation based on the exam and clinical picture. In addition, patients previous Hgb was 12 in 2021 (normal) and if she did have high-output heart failure, the treatment would be correcting the hemoglobin as is being done with transfusions. As far as vascular causes for her bleeding, I am unsure of what diseases could be causing this froma vascular perspective. Previous workup by hematology demonstrated no evidence of von Willebrand's disease nor factor 8 deficiency. They recommended a bleeding screen lab that was not done due to transportation issues. This can be reconsidered as an outpatient basis per hematology. Recommendations: #Troponin leak: Likely type 2 NSTEMI in the setting of hemorrhagic shock #Sinus tachycardia (based on telemetry) -Trend troponins to peak -Hold off on aspirin/plavix/hep gtt for now -Please order TTE in AM -Hold off on treating tachycardia with beta blockers as this is likely compensatory in the setting of bleed Case to be staffed with cardiology consult attending, recommendations not final until signed by attending. x Consult service will continue to follow patient. Recommendations are above, please page if further consultation required. Dmitriy Miller Torch Burner [phone] Associated attestation - Narendra Wolfe MD - 10/15/2022 12:03 PM EDT I have seen the patient in person and reviewed Dr. Castaneda's above history and I agree with the detailsas written. The assessment and plan were formulated in discussion with me and I agree with them as documented. Ms. Worley is a 32 year old woman who presented with vaginal bleeding and acute blood loss s/p uterine artery embolization. She reported an episode of chest pain with hsTn 6->12. TTE unremarkable.Agree with no further work-up for mildly elevated Tn in the setting of acute blood loss anemia. Narendra Wolfe MD, MPH Cardiovascular Medicine * Brief Op Note - Neftali Morrison MD - 10/13/2022 9:05 PM EDT INTERVENTIONAL RADIOLOGY BRIEF PROCEDURE NOTE Patient Name: Zenia Worley : 1990 Case Date: 10/13/2022 Operators: Attending: All Staff: Staff Role Jhon Syed Mri Assistant Pradip Avila MD Attending Neftali Morrison MD Fellow - Assisting Deneen Grider RN RAD IR Nurse Resource Post-operative diagnosis/Indication: Name of Procedure Performed: Planned procedure: Pelvic angiography and embolization Description of the procedure: US-guided distal left radial access Bilateral internal iliac catheterization and angiography Bilateral uterine artery embolization with gelfoam slurry Findings of the procedure: 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 Normal appearance of the bilateral uterine arteries without active extravasation, pseudoaneurysm, or early draining vein. Prophylactic embolization of the bilateral uterine arteries with Gelfoam to stasis. EBL: <10 mL Specimens: None Complications: No immediate Plan/Disposition: To PACU for recovery, then admission to [facility] service. Post radial access orders per protocol. FULL PROCEDURE NOTE TO FOLLOW IN IMAGE REPORT * ED Triage - Estephania Baird RN - 10/13/2022 4:39 PM EDT Patient arrives via EMS from OSH. Pt with severe vaginal bleeding that started on . Pt had hypotension (SBPs 60-110s). Pt received NS boluses, TXA, and 2 units PRBCS. Patient A&O x 4. Patient speaking in clear, logical, and full sentences. Respiratory rate regular and unlabored. Skin appropriate color, warm, and dry. HPI (Adult) Stated Reason for Visit: Vaginal bleeding History Obtained From: patient, EMS documented in this encounter Plan of Treatment Upcoming Encounters Date Type Department Care Team (Late st Contact Info) Description 12/30/2023 2:45 PM EDT TH Visit (TeleHealth) [place] [address] Michael Morgan, [facility] [place] [address] Scheduled Referrals Name Type Priority Associated Diagnoses [...] can, buy fresh vegetables and fruit from [employer] market-sent message with resources -Choose whole [...] Note: Practice STOP and Urge Surfing. Health Subassembler will send hand-outs. Movement Lifestyle On track( 1:14 PM EDT) Riddhi Buchanan, CORNELIO Note: Continue to walk stairs and walks when can. Will continue using stairs as it's colder. Look into finding weights free online or at [employer] stores. Could use water-filled milk jugs as weights-a full gallon jug would be 8 lbs. [facility] 04/16/22 NATHALIA documented as of this encounter Procedures Procedure Name Priority Date/Time Associated Diagnosis Comments POCT GLUCOSE Routine 10/15/2022 11:40 AM EDT POCT GLUCOSE Routine 10/15/2022 7:51 AM EDT POCT GLUCOSE Routine 10/15/2022 3:36 AM EDT POCT GLUCOSE Routine 10/14/2022 11:09 PM EDT POCT GLUCOSE Routine 10/14/2022 7:20 PM EDT POCT GLUCOSE Routine 10/14/2022 4:45 PM EDT ECHO COMPLETE W CONTRAST Routine 10/14/2022 3:07 PM EDT Non-ST elevation myocardial infarction (NSTEMI) POCT GLUCOSE Routine 10/14/2022 12:40 PM EDT HC TROPONIN T STAT 10/14/2022 8:21 AM EDT HC VENIPUNCTURE Routine 10/14/2022 8:21 AM EDT POCT GLUCOSE Routine 10/14/2022 7:26 AM EDT POCT GLUCOSE Routine 10/14/2022 5:03 AM EDT HC TROPONIN T STAT 10/14/2022 2:25 AM EDT HEMOGRAM Routine 10/14/2022 2:25 AM EDT DIFFERENTIAL, AUTOMATED Routine 10/15/19 2:25 AM EDT HC CBC,PLT & AUTO DIFF Routine 2:25 AM EDT COMPREHENSIVE METABOLIC PANEL (NON-FASTING) Routine 10/14/2022 2:25 AM EDT POCT GLUCOSE Routine 10/14/2022 2:24 AM EDT POCT GLUCOSE Routine 10/14/2022 12:00 AM EDT TROPONIN STAT 10/13/2022 10:45 PM EDT HEMOGRAM STAT 10/13/2022 10:45 PM EDT DIFFERENTIAL, AUTOMATED STAT 10/14/19 10:45 PM EDT HC CBC,PLT & AUTO DIFF STAT 10:45 PM EDT COMPREHENSIVE METABOLIC PANEL (NON-FASTING) STAT 10/13/2022 10:45 PM EDT POCT GLUCOSE Routine 10/13/2022 9:31 PM EDT IR ARTERIAL INTERVENTION STAT 10/13/2022 9:23 PM EDT RADIOFREQUENCY ABLATION 10/14/19 7:18 PM EDT . POCT GLUCOSE Routine 10/13/2022 6:35 PM EDT HC TROPONIN T STAT 10/13/2022 6:20 PM EDT EKG 12-LEAD STAT 10/13/2022 6:19 PM EDT TSH CASCADE Routine 10/13/2022 4:50 PM EDT HEMOGRAM Routine 10/13/2022 4:50 PM EDT DIFFERENTIAL, AUTOMATED Routine 10/14/19 4:50 PM EDT D-DIMER, QUANTITATIVE Routine 10/13/2022 4:50 PM EDT GOLD TUBE HOLD Routine 10/13/2022 4:50 PM EDT BLUE TUBE HOLD Routine 10/13/2022 4:50 PM EDT GREEN TUBE HOLD Routine 10/13/2022 4:50 PM EDT LAVENDER TUBE HOLD Routine 10/13/2022 4: 50 PM EDT APTT Routine 10/13/2022 4:50 PM EDT THROMBIN TIME Routine 10/13/2022 4:50 PM EDT PROTHROMBIN TIME Routine 10/13/2022 4:50 PM EDT FIBRINOGEN Routine 10/13/2022 4:50 PM EDT BETA HCG, QUANTITATIVE Routine 4:50 PM EDT PRO-BRAIN NATRIURETIC PEPTIDE Routine 10/13/2022 4:50 PM EDT LIPASE Routine 10/13/2022 4:50 PM EDT HEPATIC FUNCTION PANEL Routine 4:50 PM EDT BASIC METABOLIC PANEL (NON-FASTING) Routine 10/13/2022 4:50 PM EDT PREPARE RBC STAT 10/13/2022 4:45 PM EDT TYPE AND SCREEN VALIDITY STAT 10/13/2022 4:40 PM EDT ABORH RECHECK STATUS STAT 10/13/2022 4:40 PM EDT ABO/RH TYPING STAT 10/13/2022 4:40 PM EDT ANTIBODY SCREEN STAT 10/13/2022 4:40 PM EDT TYPE AND SCREEN ([facility]/JOAN) STAT 10/13/2022 4:40 PM EDT POCT GLUCOSE Routine 10/13/2022 4:38 PM EDT LAB SCAN 10/13/2022 12:00 AM EDT documented in this encounter Results * POCT Glucose (10/15/2022 11:40 AM EDT) POC Glucose 149 65 - 199 mg/dL [facility] Comment: Supplemental ranges: <140 mg/dL before meals <180 mg/dL all other times of the day Blood 10/15/2022 11:4 0 AM EDT 10/15/2022 11:40 AM EDT Mau Marks MD POINT OF CARE TEST O JET Performing Organization Address [facility]/ZIP Co de Phone Number [facility] [place] [address] * POCT Glucose (10/15/2022 7:51 AM EDT) POC Glucose 131 65 - 199 mg/dL [facility] Comment: Supplemental ranges: <140 mg/dL before meals <180 mg/dL all other times of the day Blood 10/15/2022 7:51 AM EDT 10/15/2022 7:51 AM EDT Mau Marks MD POINT OF CARE TEST Jeanna CHAUDHARY Performing Organization Address City/[facility]/ZIP Co de Phone Number [facility] [place] [address] * POCT Glucose (10/15/2022 3:36 AM EDT) POC Glucose 122 65 - 199 mg/dL [facility] Comment: Supplemental ranges: <140 mg/dL before meals <180 mg/dL all other times of the day Blood 10/15/2022 3:36 AM EDT 10/15/2022 3:36 AM EDT Mau Marks MD POINT OF CARE TEST O RDERABLES [facility] [place] [address] * POCT Glucose (10/14/2022 11:09 PM EDT) POC Glucose 135 65 - 199 mg/dL [facility] Comment: Supplemental ranges: <140 mg/dL before meals <180 mg/dL all other times of the day Blood 10/14/2022 11:0 9 PM EDT 10/14/2022 11:09 PM EDT Mau Marks MD POINT OF CARE TEST O RDERABLES Performing Organization Address [facility] Co de Phone Number [facility] [place] [address] * POCT Glucose (10/14/2022 7:20 PM EDT) POC Glucose 146 65 - 199 mg/dL [facility] Comment: Supplemental ranges: <140 mg/dL before meals <180 mg/dL all other times of the day Blood 10/14/2022 7:20 PM EDT 10/14/2022 7:20 PM EDT Mau Marks MD POINT OF CARE TEST O RDERAEDWARD Performing Organization Address [facility] Co de Phone Number [facility] [place] [address] * POCT Glucose (10/14/2022 4:45 PM EDT) POC Glucose 165 65 - 199 mg/dL [facility] Comment: Supplemental ranges: <140 mg/dL before meals <180 mg/dL all other times of the day Blood 10/14/2022 4:45 PM EDT 10/14/2022 4:45 PM EDT Mau Marks MD POINT OF CARE TEST O RDERABLES [facility] [place] [address] * ECHO COMPLETE W CONTRAST (10/14/2022 3:07 PM EDT) Anatomical Region Laterality Modality Cardiac Other 10/14/2022 2:18 PM EDT Narrative 10/14/2022 3:29 PM EDT ? Echocardiogram Report Name: ZENIA WORLEY ?Study Date: 10/14/2022 02:18 PMBP: 129/83 mmHg ? Patient Location: [id number] B : 1990 ? Height: 155 cm ? Account: [id number] Age: 32 yrs ? Weight: 185 kg Gender: Female ?BSA: 2.6 m2 Ordering Physician: MAU MARKS Referring Physician: USAMA FANG Performed By: Villa Berg RDCS Reason For Study: Non-ST elevation myocardial infarction (NSTEMI) Interpreting Fellow: Renaldo Mayfield. Exam Location: [facility]. Interpretation Summary - The left ventricle is [...] There is no prior study for comparison. Procedure Complete-66867. Image enhancement Optison was used for left ventricular opacification. Suboptimal quality. This study is limited because of body habitus. This study is limited because the patient was unable to turn. Tachycardia. Left Ventricle Left ventricle is of normal size. Wall thickness is mildly increased. There is no ventricular septal defect. Left ventricular systolic function is hyperdynamic. Left ventricular ejection fraction is estimated visually at 75%. There are no segmental wall motion abnormalities. Right Ventricle The right ventricle is probably normal in size. Right ventricular systolic function is mildly decreased. Left Atrium The left atrium is normal. There is no evidence for a patent foramen ovale. Right Atrium The right atrium is not well visualized. Aortic Valve The aortic valve is probably trileaflet. There is no aortic stenosis. There is no aortic regurgitation. Mitral Valve The mitral valve is structurally normal. There is no mitral stenosis. There is trace mitral regurgitation. Tricuspid Valve The tricuspid valve is not well visualized. There is no tricuspid stenosis. There is mild tricuspid regurgitation. Pulmonic Valve The pulmonic valve is not well visualized. There is no valvular pulmonic stenosis. There is no pulmonic valve regurgitation. Great Arteries The diameter at the level of the sinuses of Valsalva is 3.4 cm. The maximum diameter of the proximal ascending aorta is 3.1 cm. Venous Inferior vena cava is normal in size. Inferior vena cava collapse less than 50% with respiration. Pericardium/Pleural The pericardium appears normal. Epicardial fat is present. A pericardial fat pad is present. Hemodynamics Pulmonary artery hypertension could not be assessed due to inadequate tricuspid regurgitation jet. The estimated right atrial pressure is 8mmHg. Left ventricular diastolic function is normal. ? 2D Measurements ? Volumes ?IVSd: 1.3 cm ? LAV(MOD-bp) Indexed: ?LVIDd: 5.2 cm ?LVIDs: 2.5 cm ?28.2 ml/m2 ?LVPWd: 1.2 cm ?LV mass(C)d: 258.6 grams ?LV mass(C)dI: 101.1 grams/m2 ?Ao root diam: 3.4 cm ?Ao root diam index: 1.3 ?asc Aorta Diam: 3.1 cm ?TAPSE_phl: 3.0 cm I ?WMSI = 1.00 ? % Normal = 100 ?Segments ??Size X - Cannot ?? 1 - Normal ?? 2 - ? 3 - Akinetic 4 - ?1-2 ? small Interpret ? Hypokinetic ?Dyskinetic ?? 3-5 ? moderate 5 - ? 6-14 ?large Aneurysmal ?15-16 ?? diffuse Procedure Note Bernardo Velez MD - 10/14/2022 Echocardiogram Report Name: ZENIA WORLEY Study Date: 302:18 PMBP: 129/83 mmHg Patient Location: [id number] B : 1990 Height: 155 cm Account: [id number] Age: 32 yrs Weight: 185 kg Gender: Female BSA: 2.6 m2 Ordering Physician: MAU MARKS Referring Physician: USAMA FANG Performed By: Villa Berg RDCS Reason For Study: Non-ST elevation myocardial infarction (NSTEMI) Interpreting Fellow: Renaldo Mayfield. Exam Location: [facility]. Interpretation Summary - The left ventricle is normal in size with mildly increased wallthickness. Systolic function is hyperdynamic and ejection fraction is visuallyestimated to be 75%. There are no regional wall motion abnormalities. - The right ventricle is probably normal in size and mildly reduced infunction. The pulmonary artery systolic pressure could not be estimated. - There are no hemodynamically significant valvular abnormalities. - There is no prior study for comparison. Procedure Complete-[id number]. Image enhancement Optison was used for left ventricular opacification. Suboptimal quality. This study is limited because of bodyhabitus. This study is limited because the patient was unable to turn.Tachycardia. Left Ventricle Left ventricle is of normal size. Wall thickness is mildly increased.There is no ventricular septal defect. Left ventricular systolic function ishyperdynamic. Left ventricular ejection fraction is estimated visually at 75%. There areno segmental wall motion abnormalities. Right Ventricle The right ventricle is probably normal in size. Right ventricularsystolic function is mildly decreased. Left Atrium The left atrium is normal. There is no evidence for a patent foramenovale. Right Atrium The right atrium is not well visualized. Aortic Valve The aortic valve is probably trileaflet. There is no aortic stenosis.There is no aortic regurgitation. Mitral Valve The mitral valve is structurally normal. There is no mitral stenosis.There is trace mitral regurgitation. Tricuspid Valve The tricuspid valve is not well visualized. There is no tricuspidstenosis. There is mild tricuspid regurgitation. Pulmonic Valve The pulmonic valve is not well visualized. There is no valvular pulmonicstenosis. There is no pulmonic valve regurgitation. Great Arteries The diameter at the level of the sinuses of Valsalva is 3.4 cm. Themaximum diameter of the proximal ascending aorta is 3.1 cm. Venous Inferior vena cava is normal in size. Inferior vena cava collapse lessthan 50% with respiration. Pericardium/Pleural The pericardium appears normal. Epicardial fat is present. A pericardialfat pad is present. Hemodynamics Pulmonary artery hypertension could not be assessed due to inadequatetricuspid regurgitation jet. The estimated right atrial pressure is 8mmHg. Leftventricular diastolic function is normal. 2D Measurements Volumes IVSd: 1.3 cm LAV(MOD-bp)Indexed: LVIDd: 5.2 cm LVIDs: 2.5 cm 28.2 ml/m2 LVPWd: 1.2 cm LV mass(C)d: 258.6 grams LV mass(C)dI: 101.1 grams/m2 Ao root diam: 3.4 cm Ao root diam index: 1.3 asc Aorta Diam: 3.1 cm TAPSE_phl: 3.0 cm I WMSI = 1.00 % Normal = 100 SegmentsSize X - Cannot 1 - Normal 2 - 3 - Akinetic 4 - 1-2small Interpret Hypokinetic Dyskinetic 3-5moderate 5 - 6-14large Aneurysmal 15-16diffuse Mau Marks MD ECHO ORDERABLES * POCT Glucose (10/14/2022 12:40 PM EDT) [facility] POC Glucose 153 65 - 199 mg/dL [facility] Comment: Supplemental ranges: <140 mg/dL before meals <180 mg/dL all other times of the day Blood 10/14/2022 12:4 0 PM EDT 10/14/2022 12:40 PM EDT Mau Marks MD POINT OF CARE TEST O RDERABLES [facility] [place] [address] * (ABNORMAL) Hemogram (10/14/2022 8:21 AM EDT) Pathologist [facility] WBC 11.8(H) 4.0 - 9.5 x10(3)/[facility] LABORATORY RBC 3.40(L) 4.00 - 5.21 x10(6)/[facility] LABORATORY Hemoglobin 9.5(L) 11.7 - 15.5 g/dL [facility] Hematocrit 28.5(L) 35.7 - 45.8 % [facility] MCV 83.8 82.6 - 94.4 fL [facility] MCH 27.9 27.1 - 32.0 pg [facility] MCHC 33.3 31.7 - 35.0 g/dL [facility] Platelets 278 145 - 357 x10(3)/[facility] LABORATORY RDWSD 45.3 37.0 - 46.0 [facility] LABORATORY RDWCV 14.9(H) 11.5 - 14.1 % [facility] MPV 11.0 7.6 - 12.9 [facility] LABORATORY nRBC % Auto 0.0 % [facility] nRBC Abs Auto 0.000 0.000 - 0.000 x10(3)/[facility] LABORATORY Blood 10/14/2022 8:21 AM EDT 10/14/2022 8:50 AM EDT Narrative Resulting Agency Comment Spec In Lab Mau Marks MD HEMATOLOGY ORDERABLE S [facility] [place] [id number] * (ABNORMAL) Troponin (10/14/2022 8:21 AM EDT) Troponin-T HS 18(H) <=14 ng/L [facility] Comment: This patient's troponin T concentration was determined using the Maxim 5th Generation troponin T assay. The 99th percentile for Troponin T for this test is 14 ng/L for females, and 22 ng/L for males. According to the fourth universal definition of myocardial infarction, the term acute myocardial infarction should be used when there is acute myocardial injury with clinical evidence of acute myocardial ischemia and with detection of a rise and/or fall of cardiac troponin values with at least one value above the 99th percentile and at least one of the following: - Symptoms of myocardial ischemia; - New ischemic ECG changes; - Development of pathological Q waves; - Imaging evidence of new loss of viable myocardium or new regional wall motion abnormality in a pattern consistent with an ischemic etiology; - Identification of a coronary thrombus by angiography or autopsy (not for type 2 or 3 MIs) Serial measurement of troponin and the change in troponin concentration over time (delta) is crucial for the diagnosis of acute myocardial infarction. Guidance on the interpretation of the new 5th Generation Troponin T values and the delta troponin value can be found in the [facility] Test Catalog Troponin - [facility] Test Catalog Reference: [place] Definition of Myocardial Infarction. Journal of the [place] [employer] 2018;72:4070-5303 Blood 10/14/2022 8:21 AM EDT 10/14/2022 8:50 AM EDT Narrative Resulting Agency Comment Spec In Lab Mau Marks MD CHEMISTRY ORDERABLES Performing Organization Address [facility] Co de Phone Number [facility] [place] [address] * POCT Glucose (10/14/2022 7:26 AM EDT) POC Glucose 127 65 - 199 mg/dL [facility] Comment: Supplemental ranges: <140 mg/dL before meals <180 mg/dL all other times of the day Blood 10/14/2022 7:26 AM EDT 10/14/2022 7:26 AM EDT Mau Marks MD POINT OF CARE TEST O RDERABLES Performing Organization Address [facility] Co de Phone Number [facility] [place] [address] * POCT Glucose (10/14/2022 5:03 AM EDT) POC Glucose 118 65 - 199 mg/dL [facility] Comment: Supplemental ranges: <140 mg/dL before meals <180 mg/dL all other times of the day Blood 10/14/2022 5:03 AM EDT 10/14/2022 5:03 AM EDT Mau Marks MD POINT OF CARE TEST O RDERABLES Performing Organization Address [facility] de Phone Number [facility] [place] [address] * (ABNORMAL) Differential, Automated (10/14/2022 2:25 AM EDT) Neutrophils % 80.9 % [facility] Neutr Abs (ANC) 12.22(H) 1.70 - 6.10 x10(3)/[facility] LABORATORY Lymphocytes % 11.1 % [facility] Lymphocytes Abs 1.7 0.9 - 3.2 x10(3)/[facility] LABORATORY Monocytes % 6.1 % [facility] Monocyte Abs 0.9 0.3 - 0.9 x10(3)/[facility] LABORATORY Eosinophils % 0.5 % [facility] Eosinophils Abs 0.1 0.0 - 0.4 x10(3)/[facility] LABORATORY Basophils % 0.3 % [facility] Basophils Abs 0.0 0.0 - 0.1 x10(3)/[facility] LABORATORY Immature Gran % 1.10 % [facility] Comment: Immature granulocytes(IG's)percentage and absolute count will include metamyelocytes, myelocytes, and promyelocytes. Blood smears from CBCs yielding IG's will be scanned manually for concordance. If this scan disagrees with the automated IG or if promyelocytes are noted, a manual differential will be performed. Estefany Gran Abs 0.16(H) 0.00 - 0.04 x10(3)/[facility] LABORATORY Blood 10/14/2022 2:25 AM EDT 10/14/2022 2:33 AM EDT Narrative Resulting Agency Comment Spec In Lab Sabrina Mayfield DO HEMATOLOGY ORDERABLE S [facility] [place] [address] * (ABNORMAL) Hemogram (10/14/2022 2:25 AM EDT) WBC 15.1(H) 4.0 - 9.5 x10(3)/[facility] LABORATORY RBC 3.46(L) 4.00 - 5.21 x10(6)/[facility] LABORATORY Hemoglobin 9.9(L) 11.7 - 15.5 g/dL [facility] Hematocrit 29.1(L) 35.7 - 45.8 % [facility] MCV 84.1 82.6 - 94.4 fL [facility] MCH 28.6 27.1 - 32.0 pg [facility] MCHC 34.0 31.7 - 35.0 g/dL [facility] Platelets 288 145 - 357 x10(3)/[facility] LABORATORY RDWSD 45.2 37.0 - 46.0 [facility] LABORATORY RDWCV 14.8(H) 11.5 - 14.1 % [facility] MPV 11.1 7.6 - 12.9 [facility] LABORATORY nRBC % Auto 0.1 % [facility] nRBC Abs Auto 0.020(H) 0.000 - 0.000 x10(3)/[facility] LABORATORY Blood 10/14/2022 2:25 AM EDT 10/14/2022 2:33 AM EDT Narrative Resulting Agency Comment Spec In Lab Sabrina Mayfield DO HEMATOLOGY ORDERABLE S [facility] [place] [address] * (ABNORMAL) Comprehensive metabolic panel (non-fasting) (10/14/2022 2:25 AM EDT) Glucose Lvl 106 65 - 199 mg/dL [facility] Comment:Diabetes: >=200 mg/d L plus symptoms BUN 18 8 - 18 mg/dL [facility] Creatinine 0.90 0.70 - 1.20 mg/dL [facility] Sodium 137 135 - 145 mmol/L [facility] Potassium 4.9 3.5 - 5.0 mmol/L [facility] Comment: Please note: ??Patients with WBC >100,000 may have falsely elevated Potassium levels. ??For accurate Potassium quantification in these patients send serum separator tube (gold top) for subsequent determinations. ??Contact the Clinical Chemistry Laboratory if there are any questions. Chloride 104 98 - 107 mmol/L [facility] CO2 22 22 - 31 mmol/L [facility] Anion Gap 11 5 - 15 mmol/L [facility] Calcium 8.2(L) 8.5 - 10.5 mg/dL [facility] Total Protein 6.0(L) 6.1 - 8.0 g/dL [facility] Albumin 3.5 3.2 - 5.2 g/dL [facility] AST 24 0 - 30 unit/L [facility] ALT 41(H) 0 - 30 unit/L [facility] Alk Phos 50 35 - 105 unit/L [facility] Total Bilirubin 0.8 0.2 - 1.3 mg/dL [facility] Estimated GFR 88 >=60 mL/min/1. 73 m?? [facility] Comment: This patient's estimated GFR [...] and symptoms in addition to eGFR. Blood 10/14/2022 2:25 AM EDT 10/14/2022 2:33 AM EDT Narrative Resulting Agency Comment Spec In Lab Mau Marks MD CHEMISTRY ORDERABLES [facility] [place] [address] * (ABNORMAL) Troponin (10/14/2022 2:25 AM EDT) Troponin-T HS 22(H) <=14 ng/L [facility] Comment: This patient's troponin T concentration was determined using the [employer] 5th Generation troponin T assay. The 99th percentile for Troponin T for this test is 14 ng/L for females, and 22 ng/L for males. According to the fourth universal definition of myocardial infarction, the term acute myocardial infarction should be used when there is acute myocardial injury with clinical evidence of acute myocardial ischemia and with detection of a rise and/or fall of cardiac troponin values with at least one value above the 99th percentile and at least one of the following: - Symptoms of myocardial ischemia; - New ischemic ECG changes; - Development of pathological Q waves; - Imaging evidence of new loss of viable myocardium or new regional wall motion abnormality in a pattern consistent with an ischemic etiology; - Identification of a coronary thrombus by angiography or autopsy (not for type 2 or 3 MIs) Serial measurement of troponin and the change in troponin concentration over time (delta) is crucial for the diagnosis of acute myocardial infarction. Guidance on the interpretation of the new 5th Generation Troponin T values and the delta troponin value can be found in the [facility] Test Catalog Troponin - [facility] Test Catalog Reference: [place] Definition of Myocardial Infarction. Journal of the [place] [employer] 2018;72:3314-0758 Blood 10/14/2022 2:25 AM EDT 10/14/2022 2:33 AM EDT Narrative Resulting Agency Comment Spec In Lab Estee Zeng MD CHEMISTRY ORDERABLES Performing Organization Address City/State/[facility] de Phone Number [facility] [place] [address] * POCT Glucose (10/14/2022 2:24 AM EDT) POC Glucose 105 65 - 199 mg/dL [facility] Comment: Supplemental ranges: <140 mg/dL before meals <180 mg/dL all other times of the day Blood 10/14/2022 2:24 AM EDT 10/14/2022 2:24 AM EDT Mau Marks MD POINT OF CARE TEST O RDERABLES Performing Organization Address City/[facility]/ZIP Co de Phone Number [facility] [place] [address] * POCT Glucose (10/14/2022 12:00 AM EDT) POC Glucose 117 65 - 199 mg/dL [facility] Comment: Supplemental ranges: <140 mg/dL before meals <180 mg/dL all other times of the day Blood 10/14/2022 10/14/2022 12: 00 AM EDT Mau Marks MD POINT OF CARE TEST O RDERABLES Performing Organization Address [facility] Co de Phone Number [facility] [place] [address] * (ABNORMAL) Troponin (10/13/2022 10:45 PM EDT) Troponin-T HS 16(H) <=14 ng/L [facility] Comment: This patient's troponin T concentration was determined using the Maxim 5th Generation troponin T assay. The 99th percentile for Troponin T for this test is 14 ng/L for females, and 22 ng/L for males. According to the fourth universal definition of myocardial infarction, the term acute myocardial infarction should be used when there is acute myocardial injury with clinical evidence of acute myocardial ischemia and with detection of a rise and/or fall of cardiac troponin values with at least one value above the 99th percentile and at least one of the following: - Symptoms of myocardial ischemia; - New ischemic ECG changes; - Development of pathological Q waves; - Imaging evidence of new loss of viable myocardium or new regional wall motion abnormality in a pattern consistent with an ischemic etiology; - Identification of a coronary thrombus by angiography or autopsy (not for type 2 or 3 MIs) Serial measurement of troponin and the change in troponin concentration over time (delta) is crucial for the diagnosis of acute myocardial infarction. Guidance on the interpretation of the new 5th Generation Troponin T values and the delta troponin value can be found in the [facility] Test Catalog Troponin - [facility] Test Catalog Reference: [place] Definition of Myocardial Infarction. Journal of the [place] [employer] 2018;72:6738-5145 Blood Venous Draw / Unknown 10/13/2022 10:45 PM EDT 10/13/2022 10:54 PM EDT Narrative Resulting Agency Comment Spec In Lab Estee Zeng MD CHEMISTRY ORDERABLES [facility] [place] [address] * (ABNORMAL) Differential, Automated (10/13/2022 10:45 PM EDT) Neutrophils % 80.7 % [facility] Neutr Abs (ANC) 12.46(H) 1.70 - 6.10 x10(3)/[facility] LABORATORY Lymphocytes % 11.3 % [facility] Lymphocytes Abs 1.7 0.9 - 3.2 x10(3)/[facility] LABORATORY Monocytes % 5.7 % [facility] Monocyte Abs 0.9 0.3 - 0.9 x10(3)/[facility] LABORATORY Eosinophils % 1.0 % [facility] Eosinophils Abs 0.2 0.0 - 0.4 x10(3)/[facility] LABORATORY Basophils % 0.3 % [facility] Basophils Abs 0.0 0.0 - 0.1 x10(3)/[facility] LABORATORY Immature Gran % 1.00 % [facility] Comment: Immature granulocytes(IG's)percentage and absolute count will include metamyelocytes, myelocytes, and promyelocytes. Blood smears from CBCs yielding IG's will be scanned manually for concordance. If this scan disagrees with the automated IG or if promyelocytes are noted, a manual differential will be performed. Estefany Gran Abs 0.16(H) 0.00 - 0.04 x10(3)/ L [facility] Blood 10/13/2022 10:4 5 PM EDT 10/13/2022 10:54 PM EDT Narrative Resulting Agency Comment Spec In Lab Susan Tee MD HEMATOLOGY ORDERABLE S [facility] [place] [address] * (ABNORMAL) Hemogram (10/13/2022 10:45 PM EDT) WBC 15.4(H) 4.0 - 9.5 x10(3)/[facility] LABORATORY RBC 3.31(L) 4.00 - 5.21 x10(6)/[facility] LABORATORY Hemoglobin 9.2(L) 11.7 - 15.5 g/dL [facility] Hematocrit 27.8(L) 35.7 - 45.8 % [facility] MCV 84.0 82.6 - 94.4 fL [facility] MCH 27.8 27.1 - 32.0 pg [facility] MCHC 33.1 31.7 - 35.0 g/dL [facility] Platelets 272 145 - 357 x10(3)/[facility] LABORATORY RDWSD 44.8 37.0 - 46.0 [facility] LABORATORY RDWCV 14.7(H) 11.5 - 14.1 % [facility] MPV 10.6 7.6 - 12.9 [facility] LABORATORY nRBC % Auto 0.0 % [facility] nRBC Abs Auto 0.000 0.000 - 0.000 x10(3)/[facility] LABORATORY Blood 10/13/2022 10:4 5 PM EDT 10/13/2022 10:54 PM EDT Narrative Resulting Agency Comment Spec In Lab Susan Tee MD HEMATOLOGY ORDERABLE S [facility] [place] [address] * (ABNORMAL) Comprehensive metabolic panel (non-fasting) (10/13/2022 10:45 PM EDT) Glucose Lvl 121 65 - 199 mg/dL [facility] Comment:Diabetes: >=200 mg/d L plus symptoms BUN 18 8 - 18 mg/dL [facility] Creatinine 0.95 0.70 - 1.20 mg/dL [facility] Sodium 136 135 - 145 mmol/L [facility] Potassium 4.5 3.5 - 5.0 mmol/L [facility] Comment: Please note: ??Patients with WBC >100,000 may have falsely elevated Potassium levels. ??For accurate Potassium quantification in these patients send serum separator tube (gold top) for subsequent determinations. ??Contact the Clinical Chemistry Laboratory if there are any questions. Chloride 104 98 - 107 mmol/L [facility] CO2 22 22 - 31 mmol/L [facility] Anion Gap 10 5 - 15 mmol/L [facility] Calcium 7.9(L) 8.5 - 10.5 mg/dL [facility] Total Protein 5.5(L) 6.1 - 8.0 g/dL [facility] Albumin 3.2 3.2 - 5.2 g/dL [facility] AST 21 0 - 30 unit/L [facility] ALT 37(H) 0 - 30 unit/L [facility] Alk Phos 46 35 - 105 unit/L [facility] Total Bilirubin 0.8 0.2 - 1.3 mg/dL [facility] Estimated GFR 83 >=60 mL/min/1. 73 m?? [facility] [facility] Comment: This patient's estimated GFR [...] and symptoms in addition to eGFR. Blood 10/13/2022 10:4 5 PM EDT 10/13/2022 10:54 PM EDT Narrative Resulting Agency Comment Spec In Lab Mau Marks MD CHEMISTRY ORDERABLES Performing Organization Address [facility] Co de Phone Number [facility] [place] [address] * POCT Glucose (10/13/2022 9:31 PM EDT) POC Glucose 129 65 - 199 mg/dL [facility] Comment: Supplemental ranges: <140 mg/dL before meals <180 mg/dL all other times of the day Blood 10/13/2022 9:31 PM EDT 10/13/2022 9:31 PM EDT Mau Marks MD POINT OF CARE TEST O RDERABLES Performing Organization Address [facility] Co de Phone Number [facility] [place] [address] * IR Arterial Intervention (10/13/2022 9:23 PM EDT) Anatomical Region Laterality Modality Vascular X-Ray Angiograph y Addenda Addendum by Pradip Avila MD on 11/04/2022 12:47 PM EDT Addendum: Following left uterine artery catheterization, the right uterine artery was catheterized and embolized to stasis as below. ??This was inadvertently dictated as selecting an embolizing the left uterine artery twice. Addendum by Pradip Avila MD on 10/14/2022 12:03 PM EDT I was the attending physician supervising the resident in the above care and I was present with the resident for the entire procedure. Narrative 10/14/2022 9:30 AM EDT Preoperative Diagnosis: Vaginal bleeding Postoperative Diagnosis: Same Procedure Performed: Bilateral uterine artery embolization Estimated Blood Loss: Less than 25 cc. Physicians present: Attending: Pradip Avila Resident: ??Neftali Morrison Fluoroscopy time: ?? Please see [facility] technologist record for noted dose/time Cefazolin/ cefuroxime was not ordered for antimicrobial prophylaxis as it is not indicated or strongly backed by the medical literature. Consent: After discussing the risks (including infection, hemorrhage, damage to surrounding structures, respiratory depression, pneumothorax) and benefits, the patient consented to the procedure. Method of Sedation: Provided by anesthesia service, please refer to EMR Appropriate time-out was performed prior to the procedure. Description of Procedure: ??All elements of maximal sterile barrier technique were met including cap, mask, sterile gown, sterile gloves, large sterile sheet, hand hygiene and 2% chlorhexidine for cutaneous antisepsis. The left wrist was prepped and draped in the usual sterile fashion. ??Local anesthetic was administered. ? With US guidance, a 21 ga needle was advanced into the distal left radial artery. An .018 wire was advanced. The needle was removed and a 5 Fr glide sheath was advanced over the wire. The dilator and wire were removed. A solution of nitroglycerin, heparin, and verapamil was hemodiluted, and slowly instilled through the sheath. The remainder of the procedure was performed with fluoroscopic guidance. An .035 J glide wire and 5 Fr 135 cm Ed catheter were advanced. The guidewire and then catheter were passed into the descending aorta, and then the abdominal aorta. Subsequently the left common iliac artery and then the internal iliac artery was selected and contrast study performed with AP and oblique images. ??The PBJ wire was exchanged for an angled Glidewire and the 5 [place] catheter was advanced into the origin of the left uterine artery. ?? Embolization was performed with a Gelfoam slurry to 5 beats of stasis, confirmed with contrast injection. The 5 Mohawk catheter was then withdrawn and used to select the left common iliac artery. ??A roadmap study was performed. ??The left internal iliac artery was selected and the catheter was advanced into the left uterine artery. ??Embolization was then performed with a Gelfoam slurry to 5 beats of stasis, confirmed with contrast injection. Catheter and sheath were removed and hemostasis obtained using the PreludeSYNC DISTAL wrist band over the distal radial artery puncture site. Patient tolerated the procedure well and there were no immediate complications. ??Wrist band removed per protocol without complication. Findings: Widely patent left radial artery with aberrant course, likely with high origin. Normal appearance of the bilateral uterine arteries without active extravasation, pseudoaneurysm, or early draining vein. Prophylactic Gelfoam embolization to 5 beats of stasis. Impression: Technically successful Gelfoam embolization of the bilateral uterine arteries. Estee Zeng MD IMG IR ORDERABLES * POCT Glucose (10/13/2022 6:35 PM EDT) POC Glucose 79 65 - 199 mg/dL [facility] Comment: Supplemental ranges: <140 mg/dL before meals <180 mg/dL all other times of the day Blood 10/13/2022 6:35 PM EDT 10/13/2022 6:35 PM EDT Mau Marks MD POINT OF CARE TEST O RDERABLES Performing Organization Address City/State/[facility] Co de Phone Number [facility] [place] [phone] * (ABNORMAL) Troponin (10/13/2022 6:20 PM EDT) Troponin-T HS 16(H) <=14 ng/L [facility] Comment: This patient's troponin T concentration was determined using the Maxim 5th Generation troponin T assay. The 99th percentile for Troponin T for this test is 14 ng/L for females, and 22 ng/L for males. According to the fourth universal definition of myocardial infarction, the term acute myocardial infarction should be used when there is acute myocardial injury with clinical evidence of acute myocardial ischemia and with detection of a rise and/or fall of cardiac troponin values with at least one value above the 99th percentile and at least one of the following: - Symptoms of myocardial ischemia; - New ischemic ECG changes; - Development of pathological Q waves; - Imaging evidence of new loss of viable myocardium or new regional wall motion abnormality in a pattern consistent with an ischemic etiology; - Identification of a coronary thrombus by angiography or autopsy (not for type 2 or 3 MIs) Serial measurement of troponin and the change in troponin concentration over time (delta) is crucial for the diagnosis of acute myocardial infarction. Guidance on the interpretation of the new 5th Generation Troponin T values and the delta troponin value can be found in the [facility] Test Catalog Troponin - [facility] Test Catalog Reference: Fourth [place] Definition of Myocardial Infarction. Journal of the [place] [employer] 2018;72:4893-3385 Blood 10/13/2022 6:20 PM EDT 10/13/2022 6:34 PM EDT Narrative Resulting Agency Comment Spec In Lab Estee Zeng MD CHEMISTRY ORDERABLES Performing Organization Address [facility] Co de Phone Number [facility] [place] [address] * EKG 12 Lead (10/13/2022 6:19 PM EDT) Pathologist [facility] Ventricular rate 89 BPM MUSE SYSTEM Atrial Rate 89 BPM MUSE SYSTEM P-R Interval 174 ms MUSE SYSTEM QRS Duration 70 ms MUSE SYSTEM Q-T Interval 334 ms MUSE SYSTEM QTC Calculated (Bezet) 406 ms MUSE SYSTEM Calculated P [place] 66 degrees MUSE SYSTEM Calculated R [place] 34 degrees MUSE SYSTEM Calculated T [place] 31 degrees MUSE SYSTEM INTERPRETATION Normal sinus rhythm Low voltage QRS Cannot rule out Anterior infarct ??(due to low voltage) Abnormal ECG No previous ECGs available Confirmed by MD Wright Danette ([id number]) on 10/14/2022 4:31:06 PM MUSE SYSTEM 10/13/2022 6:19 PM EDT 10/14/2022 4:31 PM EDT Estee Zeng MD ECG ORDERABLES Performing Organization Address [facility] Co de Phone Number MUSE SYSTEM * D-Dimer, Quantitative (10/13/2022 4:50 PM EDT) D-Dimer, Quant 411 0 - 500 FEU ng/ml [facility] Comment: The D-Dimer assay is used to aid in the diagnosis of deep vein thrombosis and pulmonary embolism. A normal D-Dimer result (less than 500 FEU ng/ml) has a negative predictive value of approximately 95% for the exclusion of acute PE and DVT when there is low to moderate pretest probability. To use age adjusted cutoff: Age x 10 ng/ml. Blood No Charge / Unknown 10/13/2022 4:50 PM EDT 10/13/2022 5:26 PM EDT Narrative Resulting Agency Comment Spec In Lab Mau Marks MD HEMATOLOGY ORDERABLE S Performing Organization Address [facility] Co de Phone Number [facility] [place] [address] * Thrombin time (10/13/2022 4:50 PM EDT) Thrombin Time 16 10 - 17 sec [facility] Comment: Specimen drawn more than one hour prior to testing. Results may not be reliable for heparin monitoring. Result may be falsely low. A prolongation in the thrombin time (>20 seconds) may be indicative of hypofibrinogenemia or dysfibrinogenemia. The thrombin time will be prolonged, often markedly so, by the presence of heparin or direct thrombin inhibitors (argatroban, bivalirudin, dabigatran) in the specimen. Blood No Charge / Unknown 10/13/2022 4:50 PM EDT 10/13/2022 5:26 PM EDT Narrative Resulting Agency Comment Spec In Lab Mau Marks MD HEMATOLOGY ORDERABLE S Performing Organization Address [facility] Co de Phone Number [facility] [place] [address] * Fibrinogen (10/13/2022 4:50 PM EDT) Fibrinogen 293 200 - 393 mg/dL [facility] Comment: A fibrinogen level >100 mg/dL is adequate for hemostasis in most patients without underlying bleeding disorders. Blood No Charge / Unknown 10/13/2022 4:50 PM EDT 10/13/2022 5:26 PM EDT Narrative Resulting Agency Comment Spec In Lab Mau Marks MD HEMATOLOGY ORDERABLE S Performing Organization Address City/[facility] Co de Phone Number [facility] [place] [address] * (ABNORMAL) APTT (10/13/2022 4:50 PM EDT) PTT 24(L) 25 - 37 sec [facility] Comment: The PTT is NOT appropriate for heparin monitoring. Use the Anti-Xa level for heparin monitoring (HEP UFH) or LMWH monitoring (HEP LMW). A PTT less than 37 seconds generally indicates adequate hemostasis. Blood No Charge / Unknown 10/13/2022 4:50 PM EDT 10/13/2022 5:26 PM EDT Narrative Resulting Agency Comment Spec In Lab Mau Marks MD HEMATOLOGY ORDERABLE S Performing Organization Address [facility] Co de Phone Number [facility] [place] [address] * Prothrombin Time (10/13/2022 4:50 PM EDT) PT 10.9 9.4 - 12.5 sec [facility] INR 1.0 [facility] Comment: An INR <2.0 indicates adequate procoagulant activity for hemostasis in most patients without underlying bleeding disorders, though the INR may not adequately reflect hemostatic capacity in patients with liver disease and synthetic impairment. The recommended target INR range for therapeutic anticoagulation is 2.0 ? 3.0 for most applications, though lower and higher ranges may be appropriate depending on clinical circumstances. Blood No Charge / Unknown 10/13/2022 4:50 PM EDT 10/13/2022 5:26 PM EDT Narrative Resulting Agency Comment Spec In Lab Mau Marks MD HEMATOLOGY ORDERABLE S Performing Organization Address City/[facility]/ZIP Co de Phone Number [facility] [place] [address] * TSH [place] (10/13/2022 4:50 PM EDT) TSH 1.42 0.27 - 4.20 mcIU/mL [facility] Comment: Reference Interval (mcIU/mL): Females: ??First Trimester: 0.23-3.88 ??Second Trimester: 0.22-3.90 ??Third Trimester: 0.44-4.66 Blood No Charge / Unknown 10/13/2022 4:50 PM EDT 10/13/2022 5:25 PM EDT Narrative Resulting Agency Comment Spec In Lab Estee Zeng MD CHEMISTRY ORDERABLES Performing Organization Address City/[facility]/ZIP Co de Phone Number [facility] [place] [address] * pro-Brain Natriuretic Peptide (10/13/2022 4:50 PM EDT) Pathologist [facility] ProBNP <36 <=124 pg/mL [facility] Blood No Charge / Unknown 10/13/2022 4:50 PM EDT 10/13/2022 5:25 PM EDT Narrative Resulting Agency Comment Spec In Lab Estee Zeng MD CHEMISTRY ORDERABLES Performing Organization Address [facility]/ZIP Co de Phone Number [facility] [place] [address] * Lipase (10/13/2022 4:50 PM EDT) Pathologist [facility] Lipase 50 0 - 60 unit/L [facility] Blood No Charge / Unknown 10/13/2022 4:50 PM EDT 10/13/2022 5:25 PM EDT Narrative Resulting Agency Comment Spec In Lab Estee Zeng MD CHEMISTRY ORDERABLES Performing Organization Address [facility] Co de Phone Number [facility] [place] [address] * (ABNORMAL) Hepatic Function Panel (10/13/2022 4:50 PM EDT) Total Protein 5.9(L) 6.1 - 8.0 g/dL [facility] Albumin 3.4 3.2 - 5.2 g/dL [facility] AST 22 0 - 30 unit/L [facility] ALT 38(H) 0 - 30 unit/L [facility] Alk Phos 51 35 - 105 unit/L [facility] Total Bilirubin 0.3 0.2 - 1.3 mg/dL [facility] Bili, Direct 0.1 0.0 - 0.3 mg/dL [facility] Blood No Charge / Unknown 10/13/2022 4:50 PM EDT 10/13/2022 5:25 PM EDT Narrative Resulting Agency Comment Spec In Lab Estee Zeng MD CHEMISTRY ORDERABLES [facility] [place] [address] * (ABNORMAL) Differential, Automated (10/13/2022 4:50 PM EDT) Neutrophils % 62.1 % [facility] Neutr Abs (ANC) 6.11(H) 1.70 - 6.10 x10(3)/mc L [facility] Lymphocytes % 25.4 % [facility] Lymphocytes Abs 2.5 0.9 - 3.2 x10(3)/mc L [facility] Monocytes % 8.1 % [facility] Monocyte Abs 0.8 0.3 - 0.9 x10(3)/mc L [facility] Eosinophils % 3.1 % [facility] Eosinophils Abs 0.3 0.0 - 0.4 x10(3)/mc L [facility] Basophils % 0.3 % [facility] Basophils Abs 0.0 0.0 - 0.1 x10(3)/mc L [facility] Immature Gran % 1.00 % [facility] Comment: Immature granulocytes(IG's)percentage and absolute count will include metamyelocytes, myelocytes, and promyelocytes. Blood smears from CBCs yielding IG's will be scanned manually for concordance. If this scan disagrees with the automated IG or if promyelocytes are noted, a manual differential will be performed. Estefany Gran Abs 0.10(H) 0.00 - 0.04 x10(3)/[facility] LABORATORY Blood No Charge / Unknown 10/13/2022 4:50 PM EDT 10/13/2022 5:26 PM EDT Narrative Resulting Agency Comment Spec In Lab Estee Zneg MD HEMATOLOGY ORDERABLE S [facility] [place] [address] * (ABNORMAL) Hemogram (10/13/2022 4:50 PM EDT) WBC 9.8(H) 4.0 - 9.5 x10(3)/[facility] LABORATORY RBC 3.01(L) 4.00 - 5.21 x10(6)/[facility] LABORATORY Hemoglobin 8.3(L) 11.7 - 15.5 g/dL [facility] Hematocrit 25.7(L) 35.7 - 45.8 % [facility] MCV 85.4 82.6 - 94.4 [facility] LABORATORY MCH 27.6 27.1 - 32.0 pg [facility] MCHC 32.3 31.7 - 35.0 g/dL [facility] Platelets 314 145 - 357 x10(3)/[facility] LABORATORY RDWSD 46.4(H) 37.0 - 46.0 [facility] LAB[facility]ATORY RDWCV 14.9(H) 11.5 - 14.1 % [facility] MPV 11.1 7.6 - 12.9 [facility] LABORATORY nRBC % Auto 0.0 % [facility] nRBC Abs Auto 0.000 0.000 - 0.000 x10(3)/[facility] LAB[facility]ATORY Blood No Charge / Unknown 10/13/2022 4:50 PM EDT 10/13/2022 5:26 PM EDT Narrative Resulting Agency Comment Spec In Lab Estee Zeng MD HEMATOLOGY ORDERABLE S [facility] [place] [address] * Beta HCG, quantitative (10/13/2022 4:50 PM EDT) Beta hCG Quant <1 mlU/ML [facility] Comment: REFERENCE RANGES NON- FEMALE: ??Less than 5 mIU/mL POSTMENOPAUSAL FEMALE: ??Less than 8 mIU/mL ? -- FEMALES -- Weeks of ? HCG range ??(mIU/mL) ? 3 weeks ? 5.8 - 71.2 ? 4 weeks ? 9.5 - 750 ? 5 weeks ? 217 - 7,138 ? 6 weeks ? 158 - 31,795 ? 7 weeks ? 3,697 - 163,563 ? 8 weeks ? 32,065 - 149,571 ? 9 weeks ? 63,803 - 151,410 ?10 weeks ? 46,509 - 186,977 ?12 weeks ? 27,832 - 210,612 ?14 weeks ? 13,950 - 62,530 ?15 weeks ? 12,039 - 70,971 ?16 weeks ? 9,040 - 56,451 ?17 weeks ? 8,328 - 36,868 ?18 weeks ? 8,189 - 71,176 This result was generated using a Maxim Tim immunoassay. ??Results obtained from other methods or manufacturers cannot be used interchangeably with this method. Blood No Charge / Unknown 10/13/2022 4:50 PM EDT 10/13/2022 5:25 PM EDT Narrative Resulting Agency Comment Spec In Lab Estee Zeng MD CHEMISTRY ORDERABLES [facility] [place] [address] * (ABNORMAL) Basic Metabolic Panel (non-fasting) (10/13/2022 4:50 PM EDT) Glucose Lvl 73 65 - 199 mg/dL [facility] Comment:Diabetes: >=200 mg/d L plus symptoms BUN 19(H) 8 - 18 mg/dL [facility] Creatinine 1.09 0.70 - 1.20 mg/dL [facility] Sodium 137 135 - 145 mmol/L [facility] Potassium 4.7 3.5 - 5.0 mmol/L [facility] Comment: Please note: ??Patients with WBC >100,000 may have falsely elevated Potassium levels. ??For accurate Potassium quantification in these patients send serum separator tube (gold top) for subsequent determinations. ??Contact the Clinical Chemistry Laboratory if there are any questions. Chloride 104 98 - 107 mmol/L [facility] CO2 24 22 - 31 mmol/L [facility] Anion Gap 9 5 - 15 mmol/L [facility] Calcium 8.5 8.5 - 10.5 mg/dL [facility] Estimated GFR 70 >=60 mL/min/1. 73 m?? [facility] Comment: This patient's estimated GFR [...] and symptoms in addition to eGFR. Blood No Charge / Unknown 10/13/2022 4:50 PM EDT 10/13/2022 5:25 PM EDT Narrative Resulting Agency Comment Spec In Lab Estee Zeng MD CHEMISTRY ORDERABLES [facility] [place] [address] * Lavender Tube HOLD (10/13/2022 4:50 PM EDT) Lavender Hold Sample in lab. [facility] Blood No Charge / Unknown 10/13/2022 4:50 PM EDT 10/13/2022 5:26 PM EDT Jase Lopez MD HEMATOLOGY ORDERABLE S Performing Organization Address City/[facility]/ZIP Co de Phone Number [facility] [place] [address] * Blue Tube HOLD (10/13/2022 4:50 PM EDT) Blue Hold Sample in lab. [facility] Blood No Charge / Unknown 10/13/2022 4:50 PM EDT 10/13/2022 5:26 PM EDT Jase Lopez MD HEMATOLOGY ORDERABLE S Performing Organization Address City/[facility]/ZIP Co de Phone Number [facility] [place] [address] * Green Tube HOLD (10/13/2022 4:50 PM EDT) Green Hold Sample in lab. [facility] Blood No Charge / Unknown 10/13/2022 4:50 PM EDT 10/13/2022 5:25 PM EDT aJse Lopez MD CHEMISTRY ORDERABLES Performing Organization Address City/[facility]/ZIP Co de Phone Number [facility] [place] [address] * Gold Tube HOLD (10/13/2022 4:50 PM EDT) Gold Hold Sample in lab. [facility] Blood No Charge / Unknown 10/13/2022 4:50 PM EDT 10/13/2022 5:25 PM EDT Jase Lopez MD CHEMISTRY ORDERABLES [facility] [place] [address] * Prepare RBC (10/13/2022 4:45 PM EDT) Dispensed? Yes [facility] Blood 10/13/2022 4:45 PM EDT 10/13/2022 4:46 PM EDT Estee Zeng MD BLOOD BANK PRODUCT O RDERABLES Performing Organization Address City/[facility]/ZIP Co de Phone Number [facility] [place] [address] * Type and Screen Validity (10/13/2022 4:40 PM EDT) T&S only valid at [facility] LAB[facility]ORY Comment:This Type and Screen result is only valid at the [facility] Blood 10/13/2022 4:40 PM EDT 10/13/2022 5:23 PM EDT Narrative Resulting Agency Comment Spec In Lab Jase Lopez MD BLOOD BANK LAB ORDER SANDY Performing Organization Address City/[facility]/ZIP Co de Phone Number [facility] [place] [address] * ABORH Recheck Status (10/13/2022 4:40 PM EDT) ABORH Recheck Order Order Placed [facility] ABORH Type Recheck Complete [facility] Blood 10/13/2022 4:40 PM EDT 10/13/2022 5:23 PM EDT Narrative Resulting Agency Comment Spec In Lab Jase Lopez MD BLOOD BANK LAB ORDER SANDY [facility] [place] [address] * Antibody screen (10/13/2022 4:40 PM EDT) Ab Screen Interp Negative [facility] Expires at 2359 on: 10/16/2022 [facility] Blood 10/13/2022 4:40 PM EDT 10/13/2022 5:23 PM EDT Narrative Resulting Agency Comment Spec In Lab Jase Lopez MD BLOOD BANK LAB ORDER SANDY [facility] [place] [address] * ABO/Rh Typing (10/13/2022 4:40 PM EDT) ABORH Type O Pos [facility] Blood 10/13/2022 4:40 PM EDT 10/13/2022 5:23 PM EDT Narrative Resulting Agency Comment Spec In Lab Jase Lopez MD BLOOD BANK LAB ORDER SANDY Performing Organization Address City/[facility]/ZIP Co de Phone Number [facility] [place] [address] * POCT Glucose (10/13/2022 4:38 PM EDT) [facility] POC Glucose 73 65 - 199 mg/dL [facility] Comment: Supplemental ranges: <140 mg/dL before meals <180 mg/dL all other times of the day Blood 10/13/2022 4:38 PM EDT 10/13/2022 4:38 PM EDT Emergency Dept POINT OF CARE TEST ORDERABLES Performing Organization Address City/[facility]/ZIP Co de Phone Number [facility] [place] [address] * SCAN DOC: LAB (10/13/2022 12:00 AM EDT) Narrative 10/13/2022 12:00 AM EDT Ordered by an unspecified provider. Scanning Provider MEDIA MGR SCAN EXT O RDR/RSLT documented in this encounter Visit Diagnoses Not on filedocumented in this encounter Admitting Diagnoses Diagnosis Vaginal bleeding Other specified noninflammatory disorder of vagina documented in this encounter Administered Medications Inactive Administered Medications - up to 3 most recent administrations Medication Order MAR Action Action Date Dose Rate Site acetaminophen (Tylenol) tablet 975 mg 975 mg, Oral, EVERY 6 HOURS PRN, Starting on Wed10/13/22 at 2320, Until Wed10/15/22 at 1835, Pain, once patient able to tolerate PO, Maximum dose of acetaminophen is 4,000 mg from all sources in 24 hours. When ordered for pain, acetaminophen should be given even when other ordered pain medications are indicated. , Routine Given 10/14/2022 3:07 PM EDT 975 mg ARIPiprazole (Abilify) tablet 20 mg 20 mg, Oral, DAILY, First dose (after last modification) on Wed10/14/22 at 0900, Until Discontinued, Routine Given 10/15/2022 8:26 AM EDT 20 mg Given 10/14/2022 8:59 AM EDT 20 mg chlorproMAZINE (Thorazine) tablet 200 mg 200 mg, Oral, NIGHTLY, First dose (after last modification) on Wed10/15/22 at 2100, Until Discontinued, Routine chlorproMAZINE (Thorazine) tablet 50 mg 50 mg, Oral, DAILY PRN, Starting on Wed10/15/22 at 0653, Until Wed10/15/22 at 1835, Anxiety, Routine dextrose 10% infusion 250 mL, at 1,000 mL/hr, Intravenous, EVERY 30 MIN PRN, Starting on Wed10/13/22 at 2244, Until Wed10/15/22 at 1835, For BG 50-70 mg/dL: Oral treatment preferred: If able to drink, give 120 mL Juice or Regular (not diet) soda OR If NPO, give 15 gram glucose 40% oral gel massaged into buccal mucosa OR if unconscious or uncooperative, give 25 gram (250 mL) Dextrose 10% IV over 15 minutes per protocol OR, if no IV access, 1 mg Glucagon IM. For BG less than 50 mg/dL: Oral treatment preferred: If able to drink, give 240 mL Juice or Regular (not diet) soda OR If NPO, give 30 gram glucose 40% oral gel massaged in buccal mucosa OR if unconscious or uncooperative, give 25 gram (250 mL) Dextrose 10% IV over 15 minutes per protocol OR, if no IV access, 1 mg Glucagon IM. Recheck BG in 30 minutes. May repeat juice/soda, gel, dextrose or glucagon once per episode. For persistent hypoglycemia, consider longer-acting treatment for the duration of the active insulin. doxepin (SINEquan) capsule 10 mg 10 mg, Oral, NIGHTLY, First dose on Wed10/14/22 at 2145, Until Discontinued, Routine Given 10/14/2022 9:42 PM EDT 10 mg empagliflozin (Jardiance) tablet 10 mg 10 mg, Oral, DAILY, First dose on Wed10/15/22 at 0900, Until Discontinued, This medication should not be given with reduced PO intake/fluid loss, severe illness, or in patients with ketonemia or ketouria. , Routine, This medication should be held for 3 days prior to surgery. Is there a planned procedure within 3 days? No, Indication for empagliflozin: diabetes, Is this a continuation of therapy from home? Yes Given 10/15/2022 8:23 AM EDT 10 mg furosemide (Lasix) tablet 40 mg 40 mg, Oral, DAILY, First dose on Wed10/15/22 at 0900, Until Discontinued, Routine Given 10/15/2022 8:22 AM EDT 40 mg gabapentin (Neurontin) capsule 300 mg 300 mg, Oral, 3 TIMES DAILY, First dose on Wed10/15/22 at 0900, Until Discontinued, Routine Given 10/15/2022 3:38 PM EDT 300 mg Given 10/15/2022 8:22 AM EDT 300 mg glucagon (Glucagen) (1 mg/mL) injection solution 1 mg 1 mg, Intramuscular, EVERY 30 MIN PRN, Starting on Wed10/13/22 at 2244, Until Wed10/15/22 at 1835, Low blood sugar, For BG 50-70 mg/dL: Oral treatment preferred: If able to drink, give 120 mL Juice or Regular (not diet) soda OR If NPO, give 15 gram glucose 40% oral gel massaged into buccal mucosa OR if unconscious or uncooperative, give 25 gram (250 mL) Dextrose 10% IV over 15 minutes per protocol OR, if no IV access, 1 mg Glucagon IM. For BG less than 50 mg/dL: Oral treatment preferred: If able to drink, give 240 mL Juice or Regular (not diet) soda OR If NPO, give 30 gram glucose 40% oral gel massaged in buccal mucosa OR if unconscious or uncooperative, give 25 gram (250 mL) Dextrose 10% IV over 15 minutes per protocol OR, if no IV access, 1 mg Glucagon IM. Recheck BG in 30 minutes. May repeat juice/soda, gel, dextrose or glucagon once per episode. For persistent hypoglycemia, consider longer-acting treatment for the duration of the active insulin., Routine glucose (Glutose) 40% oral geL 15-30 g of glucose, Buccal, EVERY 30 MIN PRN, Starting on Wed10/13/22 at 2244, Until Wed10/15/22 at 1835, Low blood sugar, For BG 50-70 mg/dL: Oral treatment preferred: If able to drink, give 120 mL Juice or Regular (not diet) soda OR If NPO, give 15 gram glucose 40% oral gel massaged into buccal mucosa OR if unconscious or uncooperative, give 25 gram (250 mL) Dextrose 10% IV over 15 minutes per protocol OR, if no IV access, 1 mg Glucagon IM. For BG less than 50 mg/dL: Oral treatment preferred: If able to drink, give 240 mL Juice or Regular (not diet) soda OR If NPO, give 30 gram glucose 40% oral gel massaged in buccal mucosa OR if unconscious or uncooperative, give 25 gram (250 mL) Dextrose 10% IV over 15 minutes per protocol OR, if no IV access, 1 mg Glucagon IM. Recheck BG in 30 minutes. May repeat juice/soda, gel, dextrose or glucagon once per episode. For persistent hypoglycemia, consider longer-acting treatment for the duration of the active insulin. 1 tube of Glutose-15 contains 15 grams of glucose (net weight of tube = 37.5 grams.), Routine ibuprofen (Advil) tablet 600 mg 600 mg, Oral, EVERY 6 HOURS PRN, Starting on Wed10/14/22 at 1805, Until Christa 10/15/22 at 1835, Pain, Administer orally with milk or food to minimize GI irritation. Maximum dose of 3,200 mg from all sources in 24 hours, Routine Given 10/14/2022 6:11 PM EDT 600 mg insulin glargine-ygfn (Semglee) (100 unit/mL) subcutaneous injection vial 12 Units 12 Units, Subcutaneous, 2 TIMES DAILY, First dose (after last modification) on Wed10/14/22 at 2145, Until Discontinued, Routine Given 10/15/2022 8:22 AM EDT 12 Units Given 10/14/2022 9:42 PM EDT 12 Units insulin lispro (HumaLOG;Admelog) (100 unit/mL) subcutaneous injection vial 2-12 Units 2-12 Units, Subcutaneous, EVERY 4 HOURS SCHEDULED, First dose (after last modification) on Wed10/14/22 at 0800, Until Discontinued, CORRECTION BOLUS [2-12 Units] Resistant Sliding Scale (BG in mg/dL) Correction Factor 10 (1 unit of insulin is expected to drop the glucose 10 mg/dL) BG 140 - 160 Give 2 units BG 161 - 180 Give 4 units BG 181 - 200 Give 6 units BG 201 - 220 Give 8 units BG 221 - 240 Give 10 units BG greater than 240, give 12 units and recheck BG in 2 hours. - If recheck BG is LESS than 240, give no insulin and resume schedule. - If recheck BG is GREATER than 240, give 12 units and repeat BG in 2 hours (no more than 3 times) & call for new insulin orders. DO NOT hold if NPO, unless specifically directed to do so by written order. Per Blood Glucose Monitoring Policy, re-check a BG of > 240 mg/dL in 2 hours, Routine Given 10/15/2022 11:47 AM EDT 2 Units Given 10/14/2022 8:05 PM EDT 2 Units Given 10/14/2022 5:07 PM EDT 4 Units levothyroxine (Synthroid) tablet 200 mcg 200 mcg, Oral, DAILY, First dose on Wed10/14/22 at 0600, Until Discontinued, Routine Given 10/15/2022 5:50 AM EDT 200 mcg Given 10/14/2022 5:07 AM EDT 200 mcg lidocaine (Xylocaine) 1% (10 mg/mL) injection 3 mg 3 mg (0.3 mL), Subcutaneous, ONCE PRN, 1 dose, Starting on Wed10/13/22 at 2339, Until Wed10/15/22 at 1835, for discomfort with PIV insertion, Recovery (Recovery-Hospital Unit), Routine metFORMIN (Glucophage) tablet 1,000 mg 1,000 mg, Oral, 2 TIMES DAILY WITH MEALS, First dose on Wed10/15/22 at 0800, Until Discontinued, Routine Given 10/15/2022 8:21 AM EDT 1,000 mg metoprolol succinate XL (Toprol-XL) tablet 50 mg 50 mg, Oral, NIGHTLY, First dose on Wed10/14/22 at 2100, Until Discontinued, DO NOT CRUSH OR OPEN, Routine Given 10/14/2022 8:05 PM EDT 50 mg norethindrone (Aygestin) tablet 10 mg 10 mg, Oral, 3 TIMES DAILY, First dose (after last modification) on Wed10/14/22 at 0900, Until Discontinued, Routine Given 10/15/2022 3:38 PM EDT 10 mg Given 10/15/2022 8:22 AM EDT 10 mg Given 10/14/2022 8:05 PM EDT 10 mg senna-docusate (Pericolace) 8.6-50 mg per tablet 2 tablet 2 tablet, Oral, 2 TIMES DAILY, First dose on Wed10/13/22 at 2100, Until Discontinued, Routine Given 10/15/2022 8:21 AM EDT 2 tablets Given 10/14/2022 8:59 AM EDT 2 tablets sodium chloride 0.9 % (flush) (BD PosiFlush Normal Saline 0.9) flush 5 mL 5 mL, Intravenous, 2 TIMES DAILY, First dose on Wed10/14/22 at 0030, Until Discontinued, Recovery (Recovery-Hospital Unit), Routine Given 10/15/2022 8:22 AM EDT 5 mLs Given 10/14/2022 8:05 PM EDT 5 mLs Given 10/14/2022 9:00 AM EDT 5 mLs sodium chloride 0.9 % (flush) (BD PosiFlush Normal Saline 0.9) flush 5-20 mL 5-20 mL, Intravenous, EVERY 1 MIN PRN, Starting on Wed10/13/22 at 2339, Until Wed10/15/22 at 1835, flush, Flush pertains to all indwelling lines. Flush per protocol found in the job aid using the link provided on this medication record., Recovery (Recovery-Hospital Unit), Routine sodium chloride 0.9% infusion 100 mL/hr, Intravenous, CONTINUOUS, Starting on Wed10/13/22 at 2345, Until Wed10/15/22 at 1835 New Bag 10/14/2022 11:18 AM EDT 100 mL/hr 100 mL/hr New Bag 10/13/2022 11:56 PM EDT 100 mL/hr 100 mL/hr traZODone (Desyrel) tablet 300 mg 300 mg, Oral, NIGHTLY, First dose on Wed10/14/22 at 2145, Until Discontinued, Routine Given 10/14/2022 9:19 PM EDT 300 mg documented in this encounter Active and Recently Administered Medications Times are shown in EDT. Scheduled Medication Order 10/13/2022 10/14/2022 10/15/2022 ARIPiprazole (Abilify) tablet 20 mg 20 mg, Oral, DAILY, First dose (after last modification) on Wed10/14/22 at 0900, Until Discontinued, Routine 0859 (Given - Provider: Prabha De Souza RN) 08 (Given - Provider: Kaya Godfrey RN) chlorproMAZINE (Thorazine) tablet 200 mg 200 mg, Oral, NIGHTLY, First dose (after last modification) on Wed10/15/22 at 2100, Until Discontinued, Routine doxepin (SINEquan) capsule 10 mg 10 mg, Oral, NIGHTLY, First dose on Wed10/14/22 at 2145, Until Discontinued, Routine 2141 (Given - Provider: Felipa Alamo, TOM) empagliflozin (Jardiance) tablet 10 mg 10 mg, Oral, DAILY, First dose on Wed10/15/22 at 0900, Until Discontinued, This medication should not be given with reduced PO intake/fluid loss, severe illness, or in patients with ketonemia or ketouria. , Routine, This medication should be held for 3 days prior to surgery. Is there a planned procedure within 3 days? No, Indication for empagliflozin: diabetes, Is this a continuation of therapy from home? Yes 08 (Given - Provider: Kaya Godfrey RN) estrogens (conjugated) (Premarin) (5 mg/mL) injection 25 mg (COMPLETED) 25 mg, Intravenous, ONCE, 1 dose, On Wed10/13/22 at 1748, STAT 1811 (Given - Provider: Estephania Baird, TOM) furosemide (Lasix) tablet 40 mg 40 mg, Oral, DAILY, First dose on Wed10/15/22 at 0900, Until Discontinued, Routine 08 (Given - Provider: Kaya Godfrey, TOM) gabapentin (Neurontin) capsule 300 mg 300 mg, Oral, 3 TIMES DAILY, First dose on Wed10/15/22 at 0900, Until Discontinued, Routine 08 (Given - Provider: Kaya Godfrey, TOM)1538 (Given - Provider: Kaya Godfrey RN) insulin glargine-ygfn (Semglee) (100 unit/mL) subcutaneous injection vial 12 Units 12 Units, Subcutaneous, 2 TIMES DAILY, First dose (after last modification) on Wed10/14/22 at 2145, Until Discontinued, Routine 2141 (Given - Provider: Felipa Alamo RN) 08 (Given - Provider: Kaya Godfrey RN) insulin lispro (HumaLOG;Admelog) (100 unit/mL) subcutaneous injection vial 2-12 Units(Linked Group 1) 2-12 Units, Subcutaneous, EVERY 4 HOURS SCHEDULED, First dose (after last modification) on Wed10/14/22 at 0800, Until Discontinued, CORRECTION BOLUS [2-12 Units] Resistant Sliding Scale (BG in mg/dL) Correction Factor 10 (1 unit of insulin is expected to drop the glucose 10 mg/dL) BG 140 - 160 Give 2 units BG 161 - 180 Give 4 units BG 181 - 200 Give 6 units BG 201 - 220 Give 8 units BG 221 - 240 Give 10 units BG greater than 240, give 12 units and recheck BG in 2 hours. - If recheck BG is LESS than 240, give no insulin and resume schedule. - If recheck BG is GREATER than 240, give 12 units and repeat BG in 2 hours (no more than 3 times) & call for new insulin orders. DO NOT hold if NPO, unless specifically directed to do so by written order. Per Blood Glucose Monitoring Policy, re-check a BG of > 240 mg/dL in 2 hours, Routine 0800 (Not Given - Provider: Prabha De Souza RN - Reason: Order parameters not met)1247 (Given - Provider: Prabha De Souza RN)1707 (Given - Provider: Sandra Springer LPN)2004 (Given - Provider: Felipa Alamo RN - Comment: BG 146)2311 (Not Given - Provider: Felipa Alamo RN - Reason: Order parameters not met - Comment: BG 135) 0347 (Not Given - Provider: Felipa Alamo RN - Reason: Order parameters not met - Comment: BG 122)0800 (Not Given - Provider: Kaya Godfrey RN - Reason: Order parameters not met)1147 (Given - Provider: Roselia Peraza LPN)1600 (Due) iohexoL (Omnipaque) (350 mg/mL) solution 1-400 mL (COMPLETED) 1-400 mL, Other, ONCE, 1 dose, On Wed10/13/22 at 2002, For intra-procedural use by proceduralist., Angio/IR (Intra-Procedure), Routine 2002 (Due)2122 (Given - Provider: Jhon Syed) levothyroxine (Synthroid) tablet 200 mcg 200 mcg, Oral, DAILY, First dose on Wed10/14/22 at 0600, Until Discontinued, Routine 0507 (Given - Provider: Felipa Alamo RN) 0550 (Given - Provider: Felipa Alamo RN) metFORMIN (Glucophage) tablet 1,000 mg 1,000 mg, Oral, 2 TIMES DAILY WITH MEALS, First dose on Wed10/15/22 at 0800, Until Discontinued, Routine 0821 (Given - Provider: Kaya Godfrey RN) metoprolol succinate XL (Toprol-XL) tablet 50 mg 50 mg, Oral, NIGHTLY, First dose on Wed10/14/22 at 2100, Until Discontinued, DO NOT CRUSH OR OPEN, Routine 2004 (Given - Provider: Felipa Aalmo RN) norethindrone (Aygestin) tablet 10 mg 10 mg, Oral, 3 TIMES DAILY, First dose (after last modification) on Wed10/14/22 at 0900, Until Discontinued, Routine 0900 (Given - Provider: Prabha De Souza RN)1524 (Given - Provider: Prabha De Souza RN)2004 (Given - Provider: Felipa Alamo RN) 08 (Given - Provider: Kaya Godfrey RN)1538 (Given - Provider: Kaya Godfrey RN) norethindrone (Aygestin) tablet 5 mg (CANCELED) 5 mg, Oral, 2 TIMES DAILY, First dose on Wed10/13/22 at 2315, Until Discontinued, Routine 2356 (Given - Provider: Felipa Alamo RN) senna-docusate (Pericolace) 8.6-50 mg per tablet 2 tablet 2 tablet, Oral, 2 TIMES DAILY, First dose on Wed10/13/22 at 2100, Until Discontinued, Routine 2130 (JUL Hold - Provider: Admin Adt - Reason: Transfer to a Procedural area)2332 (JUL Unhold - Provider: Admin Adt) 001 (Not Given - Provider: Felipa Alamo RN - Reason: Patient/family refused)0859 (Given - Provider: Prabha De Souza RN)2008 (Not Given - Provider: Felipa Alamo RN - Reason: Patient/family refused) 0821 (Given - Provider: Kaya Godfrey RN) sodium chloride 0.9 % (flush) (BD PosiFlush Normal Saline 0.9) flush 5 mL 5 mL, Intravenous, 2 TIMES DAILY, First dose on Wed10/14/22 at 0030, Until Discontinued, Recovery (Recovery-Hospital Unit), Routine 0030 (Not Given - Provider: Felipa Alamo RN - Reason: See comment - Comment: infusing)0900 (Given - Provider: Prabha De Souza RN)2004 (Given - Provider: Felipa Alamo RN) 08 (Given - Provider: Kaya Godfrey RN) traZODone (Desyrel) tablet 300 mg 300 mg, Oral, NIGHTLY, First dose on Wed10/14/22 at 2145, Until Discontinued, Routine 2118 (Given - Provider: Felipa Alamo RN) Continuous Medication Order 10/13/2022 10/14/2022 10/15/2022 dextrose 10% infusion (CANCELED) 50 mL/hr, Intravenous, CONTINUOUS, Starting on Wed10/13/22 at 1648, Until Wed10/14/22 at 0110 1652 (New Bag - Provider: Estephania Baird, TOM)1918 (Rate/Dose Change - Provider: Kyler Godfrey CRNA)2130 (JUL Hold - Provider: Admin Adt - Reason: Transfer to a Procedural area)233 (JUL Unhold - Provider: Admin Adt)2356 (Stopped - Provider: Felipa Alamo, RN - Comment: per provider only NS should be running) sodium chloride 0.9% infusion 100 mL/hr, Intravenous, CONTINUOUS, Starting on Wed10/13/22 at 2345, Until Christa 10/15/22 at 1835 2356 (New Bag - Provider: Felipa Alamo, TOM) 1118 (New Bag - Provider: Lia Vaughn RN)1405 (Stopped - Provider: Prabha De Souza, TOM) PRN Medication Order 10/13/2022 10/14/2022 10/15/2022 acetaminophen (Tylenol) tablet 975 mg 975 mg, Oral, EVERY 6 HOURS PRN, Starting on Wed10/13/22 at 2320, Until Wed10/15/22 at 1835, Pain, once patient able to tolerate PO, Maximum dose of acetaminophen is 4,000 mg from all sources in 24 hours. When ordered for pain, acetaminophen should be given even when other ordered pain medications are indicated. , Routine 1507 (Given - Provider: Ryan De Souza RN) chlorproMAZINE (Thorazine) tablet 200 mg (CANCELED) 200 mg, Oral, 3 TIMES DAILY PRN, Starting on Wed10/14/22 at 2044, Until Wed10/15/22 at 0653, Anxiety, insomnia, Routine 211 (Given - Provider: Marilee Alamo, TOM) chlorproMAZINE (Thorazine) tablet 50 mg 50 mg, Oral, DAILY PRN, Starting on Wed10/15/22 at 0653, Until Christa 10/15/22 at 1835, Anxiety, Routine dextrose 10% infusion(Linked Group 2) 250 mL, at 1,000 mL/hr, Intravenous, EVERY 30 MIN PRN, Starting on Wed10/13/22 at 2244, Until Christa 10/15/22 at 1835, For BG 50-70 mg/dL: Oral treatment preferred: If able to drink, give 120 mL Juice or Regular (not diet) soda OR If NPO, give 15 gram glucose 40% oral gel massaged into buccal mucosa OR if unconscious or uncooperative, give 25 gram (250 mL) Dextrose 10% IV over 15 minutes per protocol OR, if no IV access, 1 mg Glucagon IM. For BG less than 50 mg/dL: Oral treatment preferred: If able to drink, give 240 mL Juice or Regular (not diet) soda OR If NPO, give 30 gram glucose 40% oral gel massaged in buccal mucosa OR if unconscious or uncooperative, give 25 gram (250 mL) Dextrose 10% IV over 15 minutes per protocol OR, if no IV access, 1 mg Glucagon IM. Recheck BG in 30 minutes. May repeat juice/soda, gel, dextrose or glucagon once per episode. For persistent hypoglycemia, consider longer-acting treatment for the duration of the active insulin. glucagon (Glucagen) (1 mg/mL) injection solution 1 mg(Linked Group 2) 1 mg, Intramuscular, EVERY 30 MIN PRN, Starting on Wed10/13/22 at 2244, Until Wed10/15/22 at 1835, Low blood sugar, For BG 50-70 mg/dL: Oral treatment preferred: If able to drink, give 120 mL Juice or Regular (not diet) soda OR If NPO, give 15 gram glucose 40% oral gel massaged into buccal mucosa OR if unconscious or uncooperative, give 25 gram (250 mL) Dextrose 10% IV over 15 minutes per protocol OR, if no IV access, 1 mg Glucagon IM. For BG less than 50 mg/dL: Oral treatment preferred: If able to drink, give 240 mL Juice or Regular (not diet) soda OR If NPO, give 30 gram glucose 40% oral gel massaged in buccal mucosa OR if unconscious or uncooperative, give 25 gram (250 mL) Dextrose 10% IV over 15 minutes per protocol OR, if no IV access, 1 mg Glucagon IM. Recheck BG in 30 minutes. May repeat juice/soda, gel, dextrose or glucagon once per episode. For persistent hypoglycemia, consider longer-acting treatment for the duration of the active insulin., Routine glucose (Glutose) 40% oral geL(Linked Group 2) 15-30 g of glucose, Buccal, EVERY 30 MIN PRN, Starting on Wed10/13/22 at 2244, Until Wed10/15/22 at 1835, Low blood sugar, For BG 50-70 mg/dL: Oral treatment preferred: If able to drink, give 120 mL Juice or Regular (not diet) soda OR If NPO, give 15 gram glucose 40% oral gel massaged into buccal mucosa OR if unconscious or uncooperative, give 25 gram (250 mL) Dextrose 10% IV over 15 minutes per protocol OR, if no IV access, 1 mg Glucagon IM. For BG less than 50 mg/dL: Oral treatment preferred: If able to drink, give 240 mL Juice or Regular (not diet) soda OR If NPO, give 30 gram glucose 40% oral gel massaged in buccal mucosa OR if unconscious or uncooperative, give 25 gram (250 mL) Dextrose 10% IV over 15 minutes per protocol OR, if no IV access, 1 mg Glucagon IM. Recheck BG in 30 minutes. May repeat juice/soda, gel, dextrose or glucagon once per episode. For persistent hypoglycemia, consider longer-acting treatment for the duration of the active insulin. 1 tube of Glutose-15 contains 15 grams of glucose (net weight of tube = 37.5 grams.), Routine ibuprofen (Advil) tablet 600 mg 600 mg, Oral, EVERY 6 HOURS PRN, Starting on Wed10/14/22 at 1805, Until Wed10/15/22 at 1835, Pain, Administer orally with milk or food to minimize GI irritation. Maximum dose of 3,200 mg from all sources in 24 hours, Routine 181 (Given - Provider: Ryan De Souza RN) lidocaine (Xylocaine) 1% (10 mg/mL) injection 3 mg 3 mg (0.3 mL), Subcutaneous, ONCE PRN, 1 dose, Starting on Wed10/13/22 at 2339, Until Christa 10/15/22 at 1835, for discomfort with PIV insertion, Recovery (Recovery-Hospital Unit), Routine perflutren protein-A microsphers (Optison) (0.22 mg/mL) injection 0.6 mL (COMPLETED) 0.6 mL, Intravenous, ONCE PRN, 1 dose, Starting on Wed10/14/22 at 1507, Until Wed10/14/22 at 1508, Per Protocol, Routine 1508 (Given - Provider: Hussein Almodovar sodium chloride 0.9 % (flush) (BD PosiFlush Normal Saline 0.9) flush 5-20 mL 5-20 mL, Intravenous, EVERY 1 MIN PRN, Starting on Wed10/13/22 at 2339, Until Wed10/15/22 at 1835, flush, Flush pertains to all indwelling lines. Flush per protocol found in the job aid using the link provided on this medication record., Recovery (Recovery-Hospital Unit), Routine Linked Groups Order Group 1: POCT Fingerstick Glucose (CANCELED) Routine, EVERY 4 HOURS, First occurrence on Wed10/14/22 at 0800, Until Specified, Consider choosing EVERY 4 HOURS as frequency for: - Type 1 Diabetes - At least 24 hours after coming off an insulin drip - At least 24 hours after admission for DKA - Hypoglycemia unawareness - Patients who are otherwise unstable Select the same frequency for the correction bolus insulin order And insulin lispro (HumaLOG;Admelog) (100 unit/mL) subcutaneous injection vial 2-12 UnitsJump to med 2-12 Units, Subcutaneous, EVERY 4 HOURS SCHEDULED, First dose (after last modification) on Wed10/14/22 at 0800, Until Discontinued, CORRECTION BOLUS [2-12 Units] Resistant Sliding Scale (BG in mg/dL) Correction Factor 10 (1 unit of insulin is expected to drop the glucose 10 mg/dL) BG 140 - 160 Give 2 units BG 161 - 180 Give 4 units BG 181 - 200 Give 6 units BG 201 - 220 Give 8 units BG 221 - 240 Give 10 units BG greater than 240, give 12 units and recheck BG in 2 hours. - If recheck BG is LESS than 240, give no insulin and resume schedule. - If recheck BG is GREATER than 240, give 12 units and repeat BG in 2 hours (no more than 3 times) & call for new insulin orders. DO NOT hold if NPO, unless specifically directed to do so by written order. Per Blood Glucose Monitoring Policy, re-check a BG of > 240 mg/dL in 2 hours, Routine Group 2: glucose (Glutose) 40% oral geLJump to med 15-30 g of glucose, Buccal, EVERY 30 MIN PRN, Starting on Wed10/13/22 at 2244, Until Wed10/15/22 at 1835, Low blood sugar, For BG 50-70 mg/dL: Oral treatment preferred: If able to drink, give 120 mL Juice or Regular (not diet) soda OR If NPO, give 15 gram glucose 40% oral gel massaged into buccal mucosa OR if unconscious or uncooperative, give 25 gram (250 mL) Dextrose 10% IV over 15 minutes per protocol OR, if no IV access, 1 mg Glucagon IM. For BG less than 50 mg/dL: Oral treatment preferred: If able to drink, give 240 mL Juice or Regular (not diet) soda OR If NPO, give 30 gram glucose 40% oral gel massaged in buccal mucosa OR if unconscious or uncooperative, give 25 gram (250 mL) Dextrose 10% IV over 15 minutes per protocol OR, if no IV access, 1 mg Glucagon IM. Recheck BG in 30 minutes. May repeat juice/soda, gel, dextrose or glucagon once per episode. For persistent hypoglycemia, consider longer-acting treatment for the duration of the active insulin. 1 tube of Glutose-15 contains 15 grams of glucose (net weight of tube = 37.5 grams.), Routine Or dextrose 10% infusionJump to med 250 mL, at 1,000 mL/hr, Intravenous, EVERY 30 MIN PRN, Starting on Wed10/13/22 at 2244, Until Wed10/15/22 at 1835, For BG 50-70 mg/dL: Oral treatment preferred: If able to drink, give 120 mL Juice or Regular (not diet) soda OR If NPO, give 15 gram glucose 40% oral gel massaged into buccal mucosa OR if unconscious or uncooperative, give 25 gram (250 mL) Dextrose 10% IV over 15 minutes per protocol OR, if no IV access, 1 mg Glucagon IM. For BG less than 50 mg/dL: Oral treatment preferred: If able to drink, give 240 mL Juice or Regular (not diet) soda OR If NPO, give 30 gram glucose 40% oral gel massaged in buccal mucosa OR if unconscious or uncooperative, give 25 gram (250 mL) Dextrose 10% IV over 15 minutes per protocol OR, if no IV access, 1 mg Glucagon IM. Recheck BG in 30 minutes. May repeat juice/soda, gel, dextrose or glucagon once per episode. For persistent hypoglycemia, consider longer-acting treatment for the duration of the active insulin. Or glucagon (Glucagen) (1 mg/mL) injection solution 1 mgJump to med 1 mg, Intramuscular, EVERY 30 MIN PRN, Starting on Wed10/13/22 at 2244, Until Christa 10/15/22 at 1835, Low blood sugar, For BG 50-70 mg/dL: Oral treatment preferred: If able to drink, give 120 mL Juice or Regular (not diet) soda OR If NPO, give 15 gram glucose 40% oral gel massaged into buccal mucosa OR if unconscious or uncooperative, give 25 gram (250 mL) Dextrose 10% IV over 15 minutes per protocol OR, if no IV access, 1 mg Glucagon IM. For BG less than 50 mg/dL: Oral treatment preferred: If able to drink, give 240 mL Juice or Regular (not diet) soda OR If NPO, give 30 gram glucose 40% oral gel massaged in buccal mucosa OR if unconscious or uncooperative, give 25 gram (250 mL) Dextrose 10% IV over 15 minutes per protocol OR, if no IV access, 1 mg Glucagon IM. Recheck BG in 30 minutes. May repeat juice/soda, gel, dextrose or glucagon once per episode. For persistent hypoglycemia, consider longer-acting treatment for the duration of the active insulin., Routine documented in this encounter Care Teams [employer] Relationship Specialty Start Date End Date Lia Pearosn APRN [address] [place] [address] PCP - General Geriatric Medicine 02/09/22 documented as of this encounter
--- OUTSIDE RECORDS SUMMARY | 2023-11-26 19:31 | XMS_ITS | Encounter Summary ---
Author Organization [facility] [place] [address] Care Team Providers Care Advertiser Name Role Phone Lia Pearson APRN Primary Care Provider [phone] Encounter Details Date Type Department Care Team (Late st Contact Info) Description 10/13/2022 2:30 PM EDT Ancillary Procedure [place] [address] Sabrina Swain MD [facility] OBSTETRICS AND [place] [address] Social History Tobacco Use Types [...] EDT TH Visit (TeleHealth) [place] [address] Michael Morgan DO [facility] [place] [address] documented as of this encounter Goals Goal Patient Goal Type Associated Problems Recent Progress Patient-Stated? Author Other (Enter personal goal) Lifestyle On track( 1:14 PM EDT) Riddhi Buchanan RD Note: -Add peanut butter to oatmeal -Continue to add beans to meals as a source of protein and fiber -If can, buy fresh vegetables and fruit from [employer] market-sent message with resources -Choose whole grain [...] Note: Practice STOP and Urge Surfing. Health Ferruler will send hand-outs. Movement Lifestyle On track( 1:14 PM EDT) Riddhi Buchanan RD Note: Continue to walk stairs and walks when can. Will continue using stairs as it's colder. Look into finding weights free online or at [employer] stores. Could use water-filled milk jugs as weights-a full gallon jug would be 8 lbs. Will look into nearby [facility] 04/16/22 documented as of this encounter Procedures Procedure Name Priority Date/Time Associated Diagnosis Comments FILM LIBRARY STORAGE ONLY CT HEAD AND SPINE Routine 10/13/2022 2:22 PM EDT documented in this encounter Results * Film Library- Storage Only CT Head And Spine (10/13/2022 2:22 PM EDT) Narrative JEANIE COUGHLIN - 10/13/2022 2:22 PM EDT This exam is auto-finalizing. It's purpose is for storage only. Sabrina Swain MD IMG FILM LIBRARY ORD ERABLES [place], [place] documented in this encounter Visit Diagnoses Not on filedocumented in this encounter Care Teams Advertiser Relationship Specialty Start Date End Date Lia Pearson APRN [address] [place] [address] PCP - General Geriatric Medicine 02/09/22 documented as of this encounter
--- OUTSIDE RECORDS SUMMARY | 2023-11-26 19:31 | XMS_ITS | Encounter Summary ---
[place] [address] Care Team Providers Care Cardiopulmonary Technologist Name Role Phone Lia Pearson APRN Primary Care Provider [phone] Encounter Details Date Type Department Care Team (Late st Contact Info) Description 09/22/2022 Telephone Obstetrics [place] [id number] Siena Fuller, RN Social History Tobacco Use [...] Telephone Encounter - Siena Fuller RN - 09/22/2022 11:32 AM EDT TC to Zenia Worley 32 y.o. to follow-up regarding recommendation for Emergency Department visit yesterday. Zenia did not go to the Emergency Department yesterday, but she says that bleeding seems to have stopped today. She denies current dizziness and lightheadedness. Recommended follow-up visit in clinic [facility] for evaluation of heavy bleeding. Per patient, she is not available this week, but could schedule follow-up visit next week. Advised patient to call clinic if bleeding resumes or if she notices any other new/worsening symptoms. Discussed bleeding precautions and recommendation to present to Emergency Department for excessive bleeding (saturating 2+ pads/hr for 2+ hours). Patient in agreement with plan and completes teach back. Scheduled for MD visit with Dr. Mcguire 09/28 at 1020am. documented in this encounter Plan of Treatment Upcoming Encounters Date Type Department Care Team (Late st Contact Info) Description 12/30/2023 2:45 PM EDT TH Visit (TeleHealth) [place] [address] Michael Morgan, [facility] [place] [address] documented as of this encounter Goals Goal Patient Goal Type Associated Problems Recent Progress Patient-Stated? Author Other (Enter personal goal) Lifestyle On track( 023 1:14 PM EDT) Riddhi Buchanan RD Note: -Add peanut butter to oatmeal -Continue to add beans to meals as a source of protein and fiber -If can, buy fresh vegetables and fruit from [employer] market-sent message with resources -Choose whole grain [...] Note: Practice STOP and Urge Surfing. Health Director Health will send hand-outs. Movement Lifestyle On track( 023 1:14 PM EDT) Riddhi Buchanan RD Note: Continue to walk stairs and walks when can. Will continue using stairs as it's colder. Look into finding weights free online or at [employer] stores. Could use water-filled milk jugs as weights-a full gallon jug would be 8 lbs. [facility] into [facility] 04/16/22 NATHALIA documented as of this encounter Visit Diagnoses Not on filedocumented in this encounter Care Teams Cardiopulmonary Technologist Relationship Specialty Start Date End Date Lia Pearson APRN [address] [place] [address] PCP - General Geriatric Medicine 02/09/22 documented as of this encounter
--- OUTSIDE RECORDS SUMMARY | 2023-11-26 19:31 | XMS_ITS | Encounter Summary ---
[place] [address] Care Team Providers Care Variety Performer Name Role Phone Lia Pearson SENIOR LIVING SALES COUNSELOR Primary Care Provider [phone] Reason for Referral * Consultation (Routine) - Closed Specialty Diagnoses / Procedures Referred By Contac t Referred To Contact Interventional Radiology Diagnoses Vaginal bleeding Marco Patel MD [facility] OBSTETRICS & [place] [address] [facility] Interv Rad [address] [place] [address] Referral ID Status Reason Start Date Expiration Date V isits Requested Visits Authorized [id number] Closed Specialty Service Requested 10/15/2022 10/15/2023 1 1 Reason for Visit * Reason Comments Vaginal Bleeding Since * Auth/Cert (Routine) Specialty Diagnoses / Procedures Referred By Contac t Referred To Contact Diagnoses Vaginal bleeding Vaginal bleeding Mau Marks MD [facility] OBSTETRICS & [place] [address] [facility] Referral ID Status Reason Start Date Expiration Date Visits Re quested Visits Authorized [id number] 1 1 Encounter Details Date Type Department Care Team (Latest Contact Info) Description 10/13/2022 4:31 PM EDT - 10/15/2022 4:30 PM EDT Hospital Encounter Surgical Unit Level 3 Wing D at [facility] [place] [id number] Zeng, Estee Donnelly MD [facility] EMERGENCY [place] [address] Mau Marks MD [facility] OBSTETRICS & [place] [address] Non-ST elevation myocardial infarction (NSTEMI); Abnormal uterine bleeding (AUB); Vaginal bleeding Discharge Disposition: Home Social History Tobacco Use [...] Sign Reading Time Taken Comments Blood Pressure 154/95 10/15/2022 11:40 AM EDT Pulse 109 10/14/2022 3:14 AM EDT Temperature 36.8 ??C (98.2 ??F) 10/15/2022 11:40 AM E DT Respiratory Rate 18 10/15/2022 11:40 AM EDT Oxygen Saturation 98% 10/15/2022 11:40 AM EDT Inhaled Oxygen Concentration - - [...] Zenia Worley Patient Age: 32 y.o. Language: Gibraltarian Race: Black or Ethnicity: Not nor Admit date: 10/13/2022 Discharge date and time: 10/15/2022 Attending Physician: No att. providers found Discharge Physician: Dr. Heath Follow-up Recommendations for Providers: -- Follow up outpatient with in Radiographer clinic on 11/13/[address] Ahumada. -- Follow up with outpatient interventional radiology Inpatient Provider Contact Information: [facility] Radiographer, Phone number [phone] Discharge Diagnoses (Hospital Problems) and Secondary Diagnoses [...] hypertension, benign ??? Long-term insulin use ??? 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 Mixed hyperlipidemia ??? Other specified hypothyroidism ??? PTSD (post-traumatic stress disorder) ??? Schizoaffective disorder Operations/Major Procedures: 10/13/2022: IR guided uterine artery embolization History of Presentation: Zenia Worley is a 32 y.o. G0 with PMH significant for AUB, bleeding disorder, DM, IBS, hypothyroidism, hypertension, RICHMOND (on CPAP), non-specific chest pain, and BMI 72. She presented to [facility] today with dizziness and lightheadedness related to [...] she awoke this morning. She called her AUTOS DISASSEMBLER in [facility] because she felt dizzy and lightheaded with just standing. She was instructed to present to medical care, so she then called an ambulance. ?? At [facility], they treated her bleeding with 2 U PRBC and TXA. Hgb was 8.9. Additionally recussitated with IV fluids. They performed a transabdominal US (patient does not tolerate transvaginal due to trauma history) and they did not see the IUD. ?? Upon arrival at [facility], she received an additional 3 units for [...] menses. She had a visit with a telegraph repeater technician at [facility], but was unable tocomplete the laboratory testing due to transportation. Prior studies were negative for vWF or factor 8 deficiency, though the telegraph repeater technician suggested repeating labs as these levels can [...] up with IR outpatient to further investigate rat exterminator IR embolization options with a plan to follow up with Software Implementation Project Manager clinic as noted above. Vital signs at [...] or concerns related to this hospitalization call: [phone] weekdays, or [phone] weekends or nights. Call your doctor if you develop: --A fever over 101 degrees F --Severe pain -- Nausea / vomiting, diarrhea, intolerance of food or drink --Heavy vaginal bleeding, saturating 1+ heavy pad per hour General Instructions [facility] Vascular and Interventional Radiology Discharge Instructions For [...] is during regular office hours, please call [phone]. If it is after regular office hours, or on weekends or holidays, please call [phone] and ask to speak to the Florist Helper oncology specialist for Interventional Radiology. You have received medication [...] Berenice Ahumada MD Obstetrics and Gynecology at [facility] Arrive at: Machine Ii Trimmer Area 11/13/2022 11:15 AM Jenni Waller MD Weight and Wellness at [facility] Arrive at: Machine Ii Trimmer Area [phone] 11/24/2022 10:30 AM Raisa Vallejo, PhD Weight and Wellness at [facility] Arrive at: [place] [phone] To view instructions for your video visit, click here, or visit this website: [email or web address] If you have not previously downloaded the [employer] patient portal software, RedRover, or the Studio Kate rebecca, please do so by clicking one [...] is: follow up for evlauation of possible fdc IR embolization Discharge References/Attachments None Provider Contact Information: Lia Pearson, SENIOR LIVING SALES COUNSELOR [phone] documented in this encounter Discharge Instructions * Discharge Instructions* Deneen Grider RN - 10/13/2022 9:35 PM EDT [facility] Vascular and Interventional Radiology Discharge Instructions For [...] is during regular office hours, please call [phone]. If it is after regular office hours, or on weekends or holidays, please call [phone] and ask to speak to the Florist Helper oncology specialist for Interventional Radiology. You have received medication [...] or concerns related to this hospitalization call: [phone] week, or [phone] weekends or nights. Call your doctor if [...] 2 mg subcutaneously every 7 days. Takes Wednesday02/06/2022 03/24/2023 Lantus Solostar U-100 Insulin 100 unit/mL [...] was scheduled and confirmed though RCT. The waste collection driver will be Mian and he will [...] for follow up in 4 weeks for fdc management. -- Continue pad counts. Urinary: Sierra [...] discharge today. Will coordinate follow up with Software Implementation Project Manager and IR outpatient and follow up on cardiology recs. Patient plan to be discussed with Dr. Heath attending Marco Patel MD, PGY-1 Obstetrics and Gynecology, Pager #[phone] 10/15/22 Attending note I saw and evaluated [...] cardiology recs. She would benefit from an [facility] Medicaid ride, which will we coordinate [...] Please page with further questions and concerns. WAQAS VargheseC Interventional Radiology IR Team Pager [phone] * Marco Patel MD - 10/14/2022 6:14 [...] TVUS d/t trauma history -- Consider discussing fdc management options. -- Continue pad counts. Urinary: [...] Patel MD, PGY-1 Obstetrics and Gynecology, Pager #[phone] 10/14/22 Associated attestation - Berenice Ahumada MD [...] patient was seen and discussed with attending Radiographer physician, Cecilia HERNANDEZ. Sabrina Mayfield DO, PGY-1 Obstetrics and Gynecology 10/14/22 * Felipa Alamo RN - 10/13/2022 11:40 PM EDT Patient arrived from PACU via bed. Patient denies pain, chest pain, SOB, nausea, numbness, tingling. Patient has sierra in place. IVF running. Patient on 2L NC. Patient moved to new bed. Patient connected to [employer]. VSS - patient remains tachycardic. Call neal within reach. Will continue to monitor patient. Felipa Alamo RN * Sabrina Mayfield, DO - 10/13/2022 10:51 PM EDT Gynecology [...] 2 Liters nasal cannula oxygen. -- Paged [phone] for respiratory therapy to establish CPAP care [...] TVUS d/t trauma history -- Consider discussing fdc management options Urinary: Sierra catheter in place. [...] Patient plan discussed with Dr. Marks attending sales team manager and Dr. Tee PGY4. MS4 Janie present [...] Nevarez RN - 10/13/2022 10:48 PM EDT 5 SBAR handoff given to Felipa SANTOS. Pt meets criteria for discharge from PACU. Pt hemodynamicallystable, surgical dressing CDI, sierra intact, denies pain and nausea. * Mau Marks MD - 10/13/2022 9:04 PM EDT TC to patient's sister, Maria R Grullon. We reviewed patient had presented with heavy bleeding today at [place] and Maria R had talked to Zenia [...] more fully with hematology and the day director check team to determine a more rat exterminator plan of care. MAU MARKS MD * Deneen Grider RN - 10/13/2022 8:38 PM EDT ANGIO NURSING DATABASE Name: Zenia Worley Date of : 1990 AGE: 32 y.o. 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 Onto [...] 79 who is admitted in transfer from [facility] with heavy uterine bleeding resulting in hypotension, requiring transfusion. She has recent TVUS with no structural pathology, thickened endometrial lining. Recent hysteroscopy, D&C with benign endometrial findings. She has been on Aygestin 5 mg BID. LAND EXAMINER team presented to ED [facility] [place] 1 C upon patient arrival for evaluation. Patient is s/p 2 u PRBCs in transport, as well as 1 gm IV TXA. On admission, she had continued heavy vaginal bleeding. Blood pressures with MAPs 60s- 70s. She is reporting lightheadedness and fatigue, as well as chest discomfort. She received 3 additional u PRBCs for Hgb 8.6. LAND EXAMINER recommended administration of IV [id number] mg STAT, given in ED at 1811. External exam notable for ~100 mL bright red blood and clots seen in ~30 minutes. With fluid resuscitation and blood administration, her MAPs improved to 75-77. HR 90s-100s, at times in 110s- 120s. Given ongoing bleeding recommended IR consultation with uterine artery embolization. IR team transferred patient from ED [facility] [place] to IR suite for attempted UAE versus [...] I10 ??? Long-term insulin use Z79.4 ??? 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 PRG ECHOGRAPHY TRANSVAGINAL NON-OB Midline 03/03/2022 ULTRASOUND, TRANSVAGINAL (WRVU 0.69) performed by Sabrina Swain MD at [facility] MAIN OR ??? PRO HYSTEROSCOPY, W/ENDO BX N/A 03/03/2022 HYSTEROSCOPY, SURG W/ENDOMETRIAL SAMPLING, POLYPECTOMY (WRVU 4.74) performed by Sabrina Swain MD [facility] MAIN OR ??? PRO INSERT INTRAUTERINE DEVICE N/A 03/03/2022 INSERTION OF IUD, VAGINAL APPROACH (WRVU 1.01) performed by Sabrina Swain MD at [facility] MAIN OR ??? PRO PELVIC EXAMINATION W ANESTH N/A 03/03/2022 PELVIC EXAM UNDER ANESTHESIA (WRVU 1.75) performed by Sabrina Swain MD at [facility] MAIN OR Medications: No current facility-administered medications on [...] Hobbies? Not really right now. Came to [place] from [place] to work at [employer] - took one year to find housing. [...] hypertension, benign ??? Long-term insulin use ??? 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 Mixed hyperlipidemia ??? Other specified hypothyroidism ??? PTSD (post-traumatic stress disorder) ??? Schizoaffective disorder History of Present Illness: Zenia Worley is a 32 y.o. G0 with PMH significant for AUB, bleeding disorder, DM, IBS, hypothyroidism, hypertension, RICHMOND (on CPAP), non-specific chest pain, and BMI 72. She presented to [facility] today with dizziness and lightheadedness related to [...] she awoke this morning. She called her AUTOS DISASSEMBLER in [facility] because she felt dizzy and lightheaded with just standing. She was instructed to present to medical care, so she then called an ambulance. At [facility], they treated her bleeding with 2 U PRBC and TXA. Hgb was 8.9. Additionally recussitated with IV fluids. They performed a transabdominal US (patient does not tolerate transvaginal due to trauma history) and they did not see the IUD. Upon arrival at [facility], she received an additional 3 units for [...] menses. She had a visit with a telegraph repeater technician at [facility], but was unable tocomplete the laboratory testing due to transportation. Prior studies were negative for vWF or factor 8 deficiency, though the telegraph repeater technician suggested repeating labs as these levels can [...] ANESTHESIA performed by Sabrina Swain MD at [facility] MAIN OR ??? PRG ECHOGRAPHY TRANSVAGINAL NON-OB Midline 03/03/2022 ULTRASOUND, TRANSVAGINAL (WRVU 0.69) performed by Sabrina Swain MD at [facility] MAIN OR ??? PRO HYSTEROSCOPY, W/ENDO BX N/A 03/03/2022 HYSTEROSCOPY, SURG W/ENDOMETRIAL SAMPLING, POLYPECTOMY (WRVU 4.74) performed by Sabrina Swain MD [facility] MAIN OR ??? PRO INSERT INTRAUTERINE DEVICE N/A 03/03/2022 INSERTION OF IUD, VAGINAL APPROACH (WRVU 1.01) performed by Sabrina Swain MD at [facility] MAIN OR ??? PRO PELVIC EXAMINATION W ANESTH N/A 03/03/2022 PELVIC EXAM UNDER ANESTHESIA (WRVU 1.75) performed by Sabrina Swain MD at [facility] MAIN OR Past Obstetric History: OB History [...] Hobbies? Not really right now. Came to [place] from [place] to work at [employer] - took one year to find housing. [...] patient was seen and discussed with attending Radiographer physician. Sabrina Chaparro DO, PGY-1 Obstetrics and Gynecology 05/30/23 I have seen and evaluated the patient [...] US or hysteroscopy. -IV premarin given in [facility] ED. Only modest bleeding seen in ED [...] the right ovary. She was transferred to [facility] for higherlevel of care. She states she does not currently feel lightheaded, she is not having chest pain, shortness of breath, she is not experiencing any vaginal discomfort. ROS as per HPI Vitals: ED Triage Vitals BP: (!) 93/39 [10/13/22 1634] Heart Rate: (!) 102 [10/13/22 1634] Resp: 16 [10/13/22 163] Temp: 36.7 ??C (98.1 ??F) [10/13/22 1634] Temp src: Oral [10/13/22 1634] SpO2: 100 % [10/13/22 163] O2 Device: RA [10/13/221633] O2 Flow Rate (L/min): 6 L/min [10/13/222125] Physical Exam Exam conducted with a master ship present. Constitutional: Comments: Lying in bed, tired [...] as of 10/14/22 0002 WedOctober 13, 2022 5532 Software Implementation Project Manager paged Procedures Assessment and Plan: 32 y.o. [...] emergency department. Patient rapidly seen by the LAND EXAMINER team who ordered IV estrogen to attempt to stop her vaginal bleeding. She was subsequently evaluated by interventional radiology for arterial embolization per the request of LAND EXAMINER. Patient did not require any vasoactive medications to support her blood pressure while in the emergency department. She was admitted to the LAND EXAMINER service and taken to the IR suite [...] this RN. Report given to the IR SHEET METAL DUCT INSTALLER HELPER and other staff. * Estephania Baird RN [...] - 10/13/2022 3:41 PM EDT Sending Facility: [facility] Reason for Transfer: sales team manager services Report: Pt c/o vaginal bleeding with clot for a few days and is c/o being dizzy now . Pt found to have hgb 8.9 and got 1 U PRBC and 1g TXA Vital Signs: Pulse: 101 B/P: 101/55 Resp: 16 SPO2: 98 O2 LPM: ra GCS: 15 BGL: 70 Temp: 98.6 Transporting Service: ems Time of Departure: 1530 ETA: * Zan Meade MD - 10/13/2022 2:53 PM EDT EM attending brief transfer acceptance note: Zenia Worley is a 32 y.o. who I accepted in transfer from Dr. Fang, [facility] ED The patient will be evaluated in the Emergency Department for vaginal bleeding The EM team will contact the Software Implementation Project Manager team as needed The OSH does not agree to take the patient back in transfer after our evaluation and treatment. Transfer and stabilization prior to transfer were not discussed This is a 32-year-old female with a history of anovulatory uterine bleeding status post hysteroscopy and IUD placement at [facility] in February 2022 who presented to the [...] still taking her Aygestin. Dr. Swain from LAND EXAMINER was on the call the patient will be transferred for evaluation in our ED by the ED team and by Software Implementation Project Manager. Based on the extent of the patient's [...] and potential risk/benefit. Zan Meade MD 10/13/22 1451 Zan Meade MD 10/13/22 1506 Zan Meade MD 10/13/22 1514 documented in this encounter Miscellaneous Notes * [...] All are in agreement with plan. CAPO Curry,stable cleaner Team Case Management Pager #[phone] * Plan of Care - Felipa Alamo [...] when OOB/with ADL's Surveillance [continuous indirect monitoring]: Maseileeno, Purposeful Rounding, Nurse Knowledge Exchange * Plan [...] 1.0 10/13/2022 PT 10.9 10/13/2022 Current bed: [facility] [place]. Okay to switch to [facility] if more [...] Please contact Gertrude Davenport RN on pager [phone] or the wound care team at [phone] or pager [phone] with skin and wound care concerns or [...] surrogate would be surrogate decision maker per [place] surrogate decision making law. (Only good for 180 days) Any patient receiving care in [place] must abide by [place] law. The hierarchy for surrogate decision making [...] (i) The agent with financial power of employee benefits attorney or a conservator appointed in accordance [...] respiratory supplies (CPAP) Home Address confirmed as: [address] [place] [address] [facility] [address] Social & Family Supports: All names listed [...] (medicaid [place]) ; Prescription Coverage: Preferred Pharmacy: [id number] - [facility], [place] - [address] [facility] [facility] [address] [place] [address] Status: Patient is a : No Primary Care Provider confirmed: Lia Pearson, SENIOR LIVING SALES COUNSELOR [phone] Patient/Caregiver Goals of Treatment: Patient would like to return home when bleeding is improved. Potential Needs for Transition of Care: none Agency Referrals: Not Applicable Transportation: no concerns Transportation Anticipated: family or friend will provide Concerns to be Addressed: denies needs/concerns at this time Assessment: Patient is admitted to LAND EXAMINER service for vaginal bleeding Plan: Consult wound for wound on left gluteus, consult cardiology for increase trop and try to weanO2. A member of the Care Management team will continue to monitor progress, follow for continuity of care and assist with transition of care planning. CAPO Curry,stable cleaner Team Case Management Pager #[phone] * Plan of Care - Felipa Alamo [...] Stellao, Purposeful Rounding, Nurse Knowledge Exchange * Consult Note - Dmitriy Miller MD - 10/14/2022 4:47 AM EDT Images from the original note were not included. [facility] [place] [address] [id number] INPATIENT CARDIOLOGY CONSULT NOTE Date of Consultation: 10/14/2022 Admit Date: 10/13/2022 Place of Service: [facility] Responsible Attending: Mau Marks MD Hospital Day [...] Patient describes that when she arrived to [facility] she felt an uncomfortable and sharp pain [...] ANESTHESIA performed by Sabrina Swain MD at [facility] MAIN OR ??? PRG ECHOGRAPHY TRANSVAGINAL NON-OB Midline 03/03/2022 ULTRASOUND, TRANSVAGINAL (WRVU 0.69) performed by Sabrina Swain MD at [facility] MAIN OR ??? PRO HYSTEROSCOPY, W/ENDO BX N/A 03/03/2022 HYSTEROSCOPY, SURG W/ENDOMETRIAL SAMPLING, [facility]CTOMY [facility] performed by Sabrina [facility] MD [facility] MAIN OR ??? PRO INSERT INTRAUTERINE DEVICE N/A 03/03/2022 INSERTION OF IUD, VAGINAL APPROACH ([facility]) performed by Sabrina Swain MD at [facility] MAIN OR ??? PRO PELVIC EXAMINATION W ANESTH N/A 03/03/2022 PELVIC EXAM UNDER ANESTHESIA ([facility]) performed by Sabrina Swain MD at [facility] MAIN OR Allergies: Allergies Allergen Reactions ??? Fluoxetine [...] ??? sodium chloride 0.9% 100 mL/hr (10/13/22 2488) Family and Social History: Family History Problem Relation Age of Onset ??? Uterine Cancer Neg Hx ??? Ovarian Cancer Neg Hx ??? Breast Cancer Neg Hx Only family hx of heart disease is an aunt that had an MT at the age of 78. Social History [...] Hobbies? Not really right now. Came to [place] from [place] to work at [employer] - took one year to find housing. [...] Surgical Unit Level 3 Wing D at [facility] TH Visit (TeleHealth) from 05/29/2022 in Weight and Wellness at [facility] Weight 185.1 kg (408 lb) 1 [...] 79), PTSD, schizoaffective disorder who presented to [facility] with hemorrhagic shock and was subsequently found [...] page if further consultation required. Dmitriy Miller Asphalt Smoother [id number] Associated attestation - Narendra Wolfe MD [...] Attending: All Staff: Staff Role Jhon Syed Mailroom Personnel Pradip Avila MD Attending Neftali Morrison MD [...] To PACU for recovery, then admission to LAND EXAMINER service. Post radial access orders per protocol. FULL PROCEDURE NOTE TO FOLLOW IN IMAGE REPORT * ED Triage - Estephania Baird RN - 10/13/2022 4:39 PM EDT Patient arrives via EMS from OSH. Pt with severe vaginal bleeding that started on Thurs. Pt had hypotension (SBPs 60-110s). Pt received [...] EDT TH Visit (TeleHealth) [place] [address] Michael Morgan, [facility] [place] [address] Scheduled Referrals Name Type Priority Associated Diagnoses [...] can, buy fresh vegetables and fruit from [employer]-sent message with resources -Choose whole grain [...] Note: Practice STOP and Urge Surfing. Health Dispensary Technician will send hand-outs. Movement Lifestyle On track( 023 1:14 PM EDT) No Riddhi Wilson RD Note: Continue to walk stairs and walks when can. Will continue using stairs as it's colder. Look into finding weights free online or at [employer] stores. Could use water-filled milk jugs as [...] POC Glucose 149 65 - 199 mg/dL [facility] Comment: Supplemental ranges: <140 mg/dL before meals <180 mg/dL all other times of the day Blood 10/15/2022 11:4 0 AM EDT 10/15/2022 11:40 AM EDT Mau Marks MD POINT OF CARE TEST O RDERABLES [facility] [place] [address] * POCT Glucose (10/15/2022 7:51 AM EDT) POC Glucose 131 65 - 199 mg/dL [facility] Comment: Supplemental ranges: <140 mg/dL before meals <180 mg/dL all other times of the day Blood 10/15/2022 7:51 AM EDT 10/15/2022 7:51 AM EDT Mau Marks MD POINT OF CARE TEST O RDERABLES Performing Organization Address City/[facility]/ZIP Co de Phone Number [facility] [place] [address] * POCT Glucose (10/15/2022 3:36 AM EDT) POC Glucose 122 65 - 199 mg/dL [facility] Comment: Supplemental ranges: <140 mg/dL before meals <180 mg/dL all other times of the day Blood 10/15/2022 3:36 AM EDT 10/15/2022 3:36 AM EDT Mau Marks MD POINT OF CARE TEST O RDERAEDWARD Performing Organization Address [facility] [facility]/ZIP Co de Phone Number [facility] [place] [address] * POCT Glucose (10/14/2022 11:09 PM EDT) POC Glucose 135 65 - 199 mg/dL [facility] Comment: Supplemental ranges: <140 mg/dL before meals <180 mg/dL all other times of the day Blood 10/14/2022 11:0 9 PM EDT 10/14/2022 11:09 PM EDT Mau Marks MD POINT OF CARE TEST O RDERABLES Performing Organization Address City/[facility]/ZIP Co de Phone Number [facility] [place] [address] * POCT Glucose (10/14/2022 7:20 PM EDT) POC Glucose 146 65 - 199 mg/dL [facility] Comment: Supplemental ranges: <140 mg/dL before meals <180 mg/dL all other times of the day Blood 10/14/2022 7:20 PM EDT 10/14/2022 7:20 PM EDT Mau Marks MD POINT OF CARE TEST O JET Performing Organization Address [facility] Co de Phone Number [facility] [place] [address] * POCT Glucose (10/14/2022 4:45 PM EDT) POC Glucose 165 65 - 199 mg/dL [facility] Comment: Supplemental ranges: <140 mg/dL before meals <180 mg/dL all other times of the day Blood 10/14/2022 4:45 PM EDT 10/14/2022 4:45 PM EDT Mau Marks MD POINT OF CARE TEST Jeanna CHAUDHARY Performing Organization Address [facility] Co de Phone Number [facility] [place] [address] * ECHO COMPLETE W CONTRAST (10/14/2022 3:07 PM EDT) Anatomical Region Laterality Modality Cardiac Other 10/14/2022 2:18 PM EDT Narrative 10/14/2022 3:29 PM EDT ? Echocardiogram Report Name: ZENIA WORLEY ?Study Date: 10/14/2022 02:18 PMBP: 129/83 mmHg ? Patient Location: [id number] B : 1990 ? Height: 155 cm ? Account: [id number] Age: 32 yrs ? Weight: 185 kg Gender: Female ?BSA: 2.6 m2 Ordering Physician: MAU MARKS Referring Physician: USAMA FANG Performed By: Villa Berg RDCS Reason For Study: Non-ST elevation myocardial infarction (NSTEMI) Interpreting Fellow: Renaldo Mayfield. Exam Location: [facility]. Interpretation Summary - The left ventricle [...] is no prior study for comparison. Procedure Complete-10275. Image enhancement Optison was used for left [...] Date: 302:18 PMBP: 129/83 mmHg Patient Location: [id number] : 1990 Height: 155 cm Account: [id number] Age: 32 yrs Weight: 185 kg Gender: Female BSA: 2.6 m2 Ordering Physician: MAU MARKS Referring Physician: USAMA FANG Performed By: Villa Berg RDCS Reason For Study: Non-ST elevation myocardial infarction (NSTEMI) Interpreting Fellow: Renaldo Mayfield. Exam Location: [facility]. Interpretation Summary - The left ventricle [...] is no prior study for comparison. Procedure Complete-[id number]. Image enhancement Optison was used for left [...] * POCT Glucose (10/14/2022 12:40 PM EDT) POC Glucose 153 65 - 199 mg/dL [facility] Comment: Supplemental ranges: <140 mg/dL before meals <180 mg/dL all other times of the day Blood 10/14/2022 12:4 0 PM EDT 10/14/2022 12:40 PM EDT Mau Marks MD POINT OF CARE TEST O RDERABLES [facility] [place] [address] * (ABNORMAL) Hemogram (10/14/2022 8:21 AM EDT) [facility] WBC 11.8(H) 4.0 - 9.5 x10(3)/[facility] LABORATORY RBC 3.40(L) 4.00 - 5.21 x10(6)/[facility] LABORATORY Hemoglobin 9.5(L) 11.7 - 15.5 g/dL [facility] Hematocrit 28.5(L) 35.7 - 45.8 % [facility] MCV 83.8 82.6 - 94.4 [facility] LABORATORY MCH 27.9 27.1 - 32.0 pg [facility] MCHC 33.3 31.7 - 35.0 g/dL [facility] Platelets 278 145 - 357 x10(3)/[facility] LABORATORY RDWSD 45.3 37.0 - 46.0 [facility] LABORATORY RDWCV 14.9(H) 11.5 - 14.1 % [facility] MPV 11.0 7.6 - 12.9 [facility] LABORATORY nRBC % Auto 0.0 % [facility] nRBC Abs Auto 0.000 0.000 - 0.000 x10(3)/[facility] LABORATORY Blood 10/14/2022 8:21 AM EDT 10/14/2022 8:50 AM EDT Narrative Resulting Agency Comment Spec In Lab Mau Marks MD HEMATOLOGY ORDERABLE S [facility] [place] [address] * (ABNORMAL) Troponin (10/14/2022 8:21 AM EDT) [facility] Troponin-T HS 18(H) <=14 ng/L [facility] Comment: This patient's troponin T concentration [...] troponin value can be found in the [facility] Laboratory Test Catalog Troponin - [facility] Test Catalog Reference: Fourth Aurora Definition of Myocardial Infarction. Journal of the [place] [employer] 2018;72:0237-0488 Blood 10/14/2022 8:21 AM EDT 10/14/2022 8:50 AM EDT Narrative Resulting Agency Comment Spec In Lab Mau Marks MD CHEMISTRY ORDERABLES Performing Organization Address City/[facility]/ZIP Co de Phone Number [facility] [place] [address] * POCT Glucose (10/14/2022 7:26 AM EDT) POC Glucose 127 65 - 199 mg/dL [facility] Comment: Supplemental ranges: <140 mg/dL before meals <180 mg/dL all other times of the day Blood 10/14/2022 7:26 AM EDT 10/14/2022 7:26 AM EDT Mau Marks MD POINT OF CARE TEST O RDERABLES [facility] [place] [address] * POCT Glucose (10/14/2022 5:03 AM EDT) POC Glucose 118 65 - 199 mg/dL [facility] Comment: Supplemental ranges: <140 mg/dL before meals <180 mg/dL all other times of the day Blood 10/14/2022 5:03 AM EDT 10/14/2022 5:03 AM EDT Mau Marks MD POINT OF CARE TEST O RDERABLES [facility] [place] [address] * (ABNORMAL) Differential, Automated (10/14/2022 2:25 AM EDT) Pathologist [facility] Neutrophils % 80.9 % [facility] Neutr Abs (ANC) 12.22(H) 1.70 - 6.10 x10(3)/mc L [facility] Lymphocytes % 11.1 % [facility] Lymphocytes Abs 1.7 0.9 - 3.2 x10(3)/[facility] LABORATORY Monocytes % 6.1 % [facility] Monocyte Abs 0.9 0.3 - 0.9 x10(3)/ L [facility] Eosinophils % 0.5 % [facility] Eosinophils Abs 0.1 0.0 - 0.4 x10(3)/ L [facility] Basophils % 0.3 % [facility] Basophils Abs 0.0 0.0 - 0.1 x10(3)/mc L [facility] Immature Gran % 1.10 % [facility] Comment: Immature granulocytes(IG's)percentage and absolute count will include metamyelocytes, myelocytes, and promyelocytes. Blood smears from CBCs yielding IG's will be scanned manually for concordance. If this scan disagrees with the automated IG or if promyelocytes are noted, a manual differential will be performed. Estefany Gran Abs 0.16(H) 0.00 - 0.04 x10(3)/ L [facility] Blood 10/14/2022 2:25 AM EDT 10/14/2022 2:33 AM EDT Narrative Resulting Agency Comment Spec In Lab Sabrina L Chaparro CRUM HEMATOLOGY ORDERABLE S [facility] [place] [address] * (ABNORMAL) Hemogram (10/14/2022 2:25 AM EDT) WBC 15.1(H) 4.0 - 9.5 x10(3)/[facility] LABORATORY RBC 3.46(L) 4.00 - 5.21 x10(6)/[facility] LABORATORY Hemoglobin 9.9(L) 11.7 - 15.5 g/dL [facility] Hematocrit 29.1(L) 35.7 - 45.8 % [facility] MCV 84.1 82.6 - 94.4 [facility] LABORATORY MCH 28.6 27.1 - 32.0 pg [facility] MCHC 34.0 31.7 - 35.0 g/dL [facility] Platelets 288 145 - 357 x10(3)/[facility] LABORATORY RDWSD 45.2 37.0 - 46.0 [facility] LABORATORY RDWCV 14.8(H) 11.5 - 14.1 % [facility] MPV 11.1 7.6 - 12.9 [facility] LABORATORY nRBC % Auto 0.1 % [facility] nRBC Abs Auto 0.020(H) 0.000 - 0.000 x10(3)/[facility] LABORATORY Blood 10/14/2022 2:25 AM EDT 10/14/2022 2:33 AM EDT Narrative Resulting Agency Comment Spec In Lab Sabrina Amanda Chaparro CRUM HEMATOLOGY ORDERABLE S [facility] [place] [address] * (ABNORMAL) Comprehensive metabolic panel (non-fasting) (10/14/2022 2:25 AM EDT) Glucose Lvl 106 65 - 199 mg/dL [facility] Comment:Diabetes: >=200 mg/d L plus symptoms BUN 18 8 - 18 mg/dL [facility] Creatinine 0.90 0.70 - 1.20 mg/dL [facility] Sodium 137 135 - 145 mmol/L [facility] Potassium 4.9 3.5 - 5.0 mmol/L [facility] Comment: Please note: ??Patients with WBC >100,000 may have falsely elevated Potassium levels. ??For accurate Potassium quantification in these patients send serum separator tube (gold top) for subsequent determinations. ??Contact the Clinical Chemistry Laboratory if there are any questions. Chloride 104 98 - 107 mmol/L [facility] CO2 22 22 - 31 mmol/L [facility] Anion Gap 11 5 - 15 mmol/L [facility] Calcium 8.2(L) 8.5 - 10.5 mg/dL [facility] Total Protein 6.0(L) 6.1 - 8.0 g/dL [facility] Albumin 3.5 3.2 - 5.2 g/dL [facility] AST 24 0 - 30 unit/L [facility] ALT 41(H) 0 - 30 unit/L [facility] Alk Phos 50 35 - 105 unit/L [facility] Total Bilirubin 0.8 0.2 - 1.3 mg/dL [facility] Estimated GFR 88 >=60 mL/min/1. 73 m?? [facility] Comment: This patient's estimated GFR [...] In Lab Mau Marks MD CHEMISTRY ORDERABLES [facility] [place] [place] [address] * (ABNORMAL) Troponin (10/14/2022 2:25 AM EDT) Troponin-T HS 22(H) <=14 ng/L [facility] Comment: This patient's troponin T concentration [...] troponin value can be found in the [facility] Test Catalog Troponin - [facility] Test Catalog Reference: Fourth Aurora Definition of Myocardial Infarction. Journal of the [place] College [employer] Cardiology 2018;72:4439-7498 Blood 10/14/2022 2:25 AM EDT 10/14/2022 2:33 AM EDT Narrative Resulting Agency Comment Spec In Lab Estee Zeng MD CHEMISTRY ORDERABLES Performing Organization Address [facility] Co de Phone Number [facility] [place] [address] * POCT Glucose (10/14/2022 2:24 AM EDT) POC Glucose 105 65 - 199 mg/dL [facility] Comment: Supplemental ranges: <140 mg/dL before meals <180 mg/dL all other times of the day Blood 10/14/2022 2:24 AM EDT 10/14/2022 2:24 AM EDT Mau Marks MD POINT OF CARE TEST O JET Performing Organization Address [facility] Co de Phone Number [facility] [place] [address] * POCT Glucose (10/14/2022 12:00 AM EDT) POC Glucose 117 65 - 199 mg/dL [facility] Comment: Supplemental ranges: <140 mg/dL before meals <180 mg/dL all other times of the day Blood 10/14/2022 10/14/2022 12: 00 AM EDT Mau Marks MD POINT OF CARE TEST O JET Performing Organization Address [facility] Co de Phone Number [facility] [place] [address] * (ABNORMAL) Troponin (10/13/2022 10:45 PM EDT) Troponin-T HS 16(H) <=14 ng/L [facility] Comment: This patient's troponin T concentration [...] troponin value can be found in the [facility] Test Catalog Troponin - [facility] Test Catalog Reference: Fourth Aurora Definition of Myocardial Infarction. Journal of the [place] [employer] 2018;72:8297-6848 Blood Venous Draw / Unknown 10/13/2022 10:45 PM EDT 10/13/2022 10:54 PM EDT Narrative Resulting Agency Comment Spec In Lab Estee Zeng MD CHEMISTRY ORDERABLES [facility] [place] [address] * (ABNORMAL) Differential, Automated (10/13/2022 10:45 PM EDT) Neutrophils % 80.7 % [facility] Neutr Abs (ANC) 12.46(H) 1.70 - 6.10 x10(3)/mc L [facility] Lymphocytes % 11.3 % [facility] Lymphocytes Abs 1.7 0.9 - 3.2 x10(3)/mc L [facility] Monocytes % 5.7 % [facility] Monocyte Abs 0.9 0.3 - 0.9 x10(3)/mc L [facility] Eosinophils % 1.0 % [facility] Eosinophils Abs 0.2 0.0 - 0.4 x10(3)/[facility] LABORATORY Basophils % 0.3 % [facility] Basophils Abs 0.0 0.0 - 0.1 x10(3)/[facility] LABORATORY Immature Gran % 1.00 % [facility] Comment: Immature granulocytes(IG's)percentage and absolute count will include metamyelocytes, myelocytes, and promyelocytes. Blood smears from CBCs yielding IG's will be scanned manually for concordance. If this scan disagrees with the automated IG or if promyelocytes are noted, a manual differential will be performed. Estefany Gran Abs 0.16(H) 0.00 - 0.04 x10(3)/[facility] LABORATORY Blood 10/13/2022 10:4 5 PM EDT 10/13/2022 10:54 PM EDT Narrative Resulting Agency Comment Spec In Lab Susan Tee MD HEMATOLOGY ORDERABLE S [facility] [place] [address] * (ABNORMAL) Hemogram (10/13/2022 10:45 PM EDT) WBC 15.4(H) 4.0 - 9.5 x10(3)/[facility] LABORATORY RBC 3.31(L) 4.00 - 5.21 x10(6)/[facility] LABORATORY Hemoglobin 9.2(L) 11.7 - 15.5 g/dL [facility] Hematocrit 27.8(L) 35.7 - 45.8 % [facility] MCV 84.0 82.6 - 94.4 fL [facility] MCH 27.8 27.1 - 32.0 pg [facility] MCHC 33.1 31.7 - 35.0 g/dL [facility] Platelets 272 145 - 357 x10(3)/[facility] LABORATORY RDWSD 44.8 37.0 - 46.0 fL [facility] RDWCV 14.7(H) 11.5 - 14.1 % [facility] MPV 10.6 7.6 - 12.9 fL [facility] nRBC % Auto 0.0 % [facility] nRBC Abs Auto 0.000 0.000 - 0.000 x10(3)/[facility] LABORATORY Blood 10/13/2022 10:4 5 PM EDT 10/13/2022 10:54 PM EDT Narrative Resulting Agency Comment Spec In Lab Susan Tee MD HEMATOLOGY ORDERABLE S [facility] [place] [address] * (ABNORMAL) Comprehensive metabolic panel (non-fasting) (10/13/2022 10:45 PM EDT) Glucose Lvl 121 65 - 199 mg/dL [facility] Comment:Diabetes: >=200 mg/d L plus symptoms BUN 18 8 - 18 mg/dL [facility] Creatinine 0.95 0.70 - 1.20 mg/dL [facility] Sodium 136 135 - 145 mmol/L [facility] Potassium 4.5 3.5 - 5.0 mmol/L [facility] Comment: Please note: ??Patients with WBC >100,000 may have falsely elevated Potassium levels. ??For accurate Potassium quantification in these patients send serum separator tube (gold top) for subsequent determinations. ??Contact the Clinical Chemistry Laboratory if there are any questions. Chloride 104 98 - 107 mmol/L [facility] CO2 22 22 - 31 mmol/L [facility] Anion Gap 10 5 - 15 mmol/L [facility] Calcium 7.9(L) 8.5 - 10.5 mg/dL [facility] Total Protein 5.5(L) 6.1 - 8.0 g/dL [facility] Albumin 3.2 3.2 - 5.2 g/dL [facility] AST 21 0 - 30 unit/L [facility] ALT 37(H) 0 - 30 unit/L [facility] Alk Phos 46 35 - 105 unit/L [facility] Total Bilirubin 0.8 0.2 - 1.3 mg/dL [facility] Estimated GFR 83 >=60 mL/min/1. 73 m?? [facility] Comment: This patient's estimated GFR [...] Marks MD CHEMISTRY ORDERABLES Performing Organization Address City/[facility]/ZIP Co de Phone Number [facility] [place] [address] * POCT Glucose (10/13/2022 9:31 PM EDT) POC Glucose 129 65 - 199 mg/dL [facility] Comment: Supplemental ranges: <140 mg/dL before meals <180 mg/dL all other times of the day Blood 10/13/2022 9:31 PM EDT 10/13/2022 9:31 PM EDT Mau Marks MD POINT OF CARE TEST O RDERABLES [facility] [place] [address] * IR Arterial Intervention (10/13/2022 9:23 PM [...] ??Neftali Morrison Fluoroscopy time: ?? Please see eD technologist record for noted dose/time Cefazolin/ cefuroxime [...] glide wire and 5 Fr 135 cm [place] catheter were advanced. The guidewire and then catheter were passed into the descending aorta, and then the abdominal aorta. Subsequently the left common iliac artery and then the internal iliac artery was selected and contrast study performed with AP and oblique images. ??The PBJ wire was exchanged for an angled Glidewire and the 5 [place] catheter was advanced into the origin of the left uterine artery. ?? Embolization was performed with a Gelfoam slurry to 5 beats of stasis, confirmed with contrast injection. The 5 [place] catheter was then withdrawn and used to [...] POC Glucose 79 65 - 199 mg/dL [facility] Comment: Supplemental ranges: <140 mg/dL before meals <180 mg/dL all other times of the day Blood 10/13/2022 6:35 PM EDT 10/13/2022 6:35 PM EDT Mau Marks MD POINT OF CARE TEST O RDERABLES [facility] [place] [address] * (ABNORMAL) Troponin (10/13/2022 6:20 PM EDT) Troponin-T HS 16(H) <=14 ng/L [facility] Comment: This patient's troponin T concentration [...] troponin value can be found in the [facility] Test Catalog Troponin - [facility] Test Catalog Reference: Fourth Aurora Definition of Myocardial Infarction. Journal of the [place] [employer] 2018;72:3089-5306 Blood 10/13/2022 6:20 PM EDT 10/13/2022 6:34 PM EDT Narrative Resulting Agency Comment Spec In Lab Estee Zeng MD CHEMISTRY ORDERABLES [facility] [place] [address] * EKG 12 Lead (10/13/2022 6:19 PM EDT) Ventricular rate 89 BPM MUSE SYSTEM Atrial Rate 89 BPM MUSE SYSTEM P-R Interval 174 ms MUSE SYSTEM QRS Duration 70 ms MUSE SYSTEM Q-T Interval 334 ms MUSE SYSTEM QTC Calculated (Bezet) 406 ms MUSE SYSTEM Calculated P [place] 66 degrees MUSE SYSTEM Calculated R [place] 34 degrees MUSE SYSTEM Calculated T [place] 31 degrees MUSE SYSTEM INTERPRETATION Normal sinus rhythm Low voltage QRS Cannot rule out Anterior infarct ??(due to low voltage) Abnormal ECG No previous ECGs available Confirmed by MD Wright Danette ([id number]) on 10/14/2022 4:31:06 PM MUSE SYSTEM 10/13/2022 6:19 PM EDT 10/14/2022 4:31 PM EDT Estee Zeng MD ECG ORDERABLES Performing Organization Address City/[facility]/ZIP Co de Phone Number MUSE SYSTEM * D-Dimer, Quantitative (10/13/2022 4:50 PM EDT) D-Dimer, Quant 411 0 - 500 FEU ng/ml [facility] Comment: The D-Dimer assay is [...] MD HEMATOLOGY ORDERABLE S Performing Organization Address [facility] Co de Phone Number [facility] [place] [address] * Thrombin time (10/13/2022 4:50 PM EDT) Thrombin Time 16 10 - 17 sec [facility] Comment: Specimen drawn more than [...] MD HEMATOLOGY ORDERABLE S Performing Organization Address City/[facility]/ZIP Co de Phone Number [facility] [place] [address] * Fibrinogen (10/13/2022 4:50 PM EDT) Fibrinogen 293 200 - 393 mg/dL [facility] Comment: A fibrinogen level >100 mg/dL is adequate for hemostasis in most patients without underlying bleeding disorders. Blood No Charge / Unknown 10/13/2022 4:50 PM EDT 10/13/2022 5:26 PM EDT Narrative Resulting Agency Comment Spec In Lab Mau Marks MD HEMATOLOGY ORDERABLE S Performing Organization Address [facility] Co de Phone Number [facility] [place] [address] * (ABNORMAL) APTT (10/13/2022 4:50 PM EDT) PTT 24(L) 25 - 37 sec [facility] Comment: The PTT is NOT [...] MD HEMATOLOGY ORDERABLE S Performing Organization Address City/[facility]/ZIP Co de Phone Number [facility] [place] [address] * Prothrombin Time (10/13/2022 4:50 PM EDT) PT 10.9 9.4 - 12.5 sec [facility] INR 1.0 [facility] Comment: An INR <2.0 indicates [...] MD HEMATOLOGY ORDERABLE S Performing Organization Address [facility] Co de Phone Number [facility] [place] [address] * TSH [place] (10/13/2022 4:50 PM EDT) TSH 1.42 0.27 - 4.20 mcIU/mL [facility] Comment: Reference Interval (mcIU/mL): Females: ??First Trimester: 0.23-3.88 ??Second Trimester: 0.22-3.90 ??Third Trimester: 0.44-4.66 Blood No Charge / Unknown 10/13/2022 4:50 PM EDT 10/13/2022 5:25 PM EDT Narrative Resulting Agency Comment Spec In Lab Estee Zeng MD CHEMISTRY ORDERABLES Performing Organization Address [facility] Co de Phone Number [facility] [place] [address] * pro-Brain Natriuretic Peptide (10/13/2022 4:50 PM EDT) ProBNP <36 <=124 pg/mL [facility] Blood No Charge / Unknown 10/13/2022 4:50 PM EDT 10/13/2022 5:25 PM EDT Narrative Resulting Agency Comment Spec In Lab Estee Zeng MD CHEMISTRY ORDERABLES Performing Organization Address [facility] Co de Phone Number [facility] [place] [address] * Lipase (10/13/2022 4:50 PM EDT) [facility] Lipase 50 0 - 60 unit/L [facility] Blood No Charge / Unknown 10/13/2022 4:50 PM EDT 10/13/2022 5:25 PM EDT Narrative Resulting Agency Comment Spec In Lab Estee Zeng MD CHEMISTRY ORDERABLES [facility] [place] [address] * (ABNORMAL) Hepatic Function Panel (10/13/2022 4:50 PM EDT) [facility] Total Protein 5.9(L) 6.1 - 8.0 g/dL [facility] Albumin 3.4 3.2 - 5.2 g/dL [facility] AST 22 0 - 30 unit/L [facility] ALT 38(H) 0 - 30 unit/L [facility] Alk Phos 51 35 - 105 unit/L [facility] Total Bilirubin 0.3 0.2 - 1.3 mg/dL [facility] Bili, Direct 0.1 0.0 - 0.3 mg/dL [facility] Blood No Charge / Unknown 10/13/2022 4:50 PM EDT 10/13/2022 5:25 PM EDT Narrative Resulting Agency Comment Spec In Lab Estee Zeng MD CHEMISTRY ORDERABLES [facility] [place] [place] [address] * (ABNORMAL) Differential, Automated (10/13/2022 4:50 PM EDT) [facility] Neutrophils % 62.1 % [facility] Neutr Abs (ANC) 6.11(H) 1.70 - 6.10 x10(3)/[facility] Lymphocytes % 25.4 % [facility] Lymphocytes Abs 2.5 0.9 - 3.2 x10(3)/[facility] Monocytes % 8.1 % [facility] Monocyte Abs 0.8 0.3 - 0.9 x10(3)/[facility] Eosinophils % 3.1 % [facility] [facility] Eosinophils Abs 0.3 0.0 - 0.4 x10(3)/[facility] LABORATORY Basophils % 0.3 % [facility] Basophils Abs 0.0 0.0 - 0.1 x10(3)/[facility] LABORATORY Immature Gran % 1.00 % [facility] Comment: Immature granulocytes(IG's)percentage and absolute count will include metamyelocytes, myelocytes, and promyelocytes. Blood smears from CBCs yielding IG's will be scanned manually for concordance. If this scan disagrees with the automated IG or if promyelocytes are noted, a manual differential will be performed. Estefany Gran Abs 0.10(H) 0.00 - 0.04 x10(3)/[facility] LABORATORY Blood No Charge / Unknown 10/13/2022 4:50 PM EDT 10/13/2022 5:26 PM EDT Narrative Resulting Agency Comment Spec In Lab Estee Zeng MD HEMATOLOGY ORDERABLE S [facility] [place] [place] [address] * (ABNORMAL) Hemogram (10/13/2022 4:50 PM EDT) WBC 9.8(H) 4.0 - 9.5 x10(3)/[facility] LABORATORY RBC 3.01(L) 4.00 - 5.21 x10(6)/[facility] LABORATORY Hemoglobin 8.3(L) 11.7 - 15.5 g/dL [facility] Hematocrit 25.7(L) 35.7 - 45.8 % [facility] MCV 85.4 82.6 - 94.4 fL [facility] MCH 27.6 27.1 - 32.0 pg [facility] MCHC 32.3 31.7 - 35.0 g/dL [facility] Platelets 314 145 - 357 x10(3)/[facility] LABORATORY RDWSD 46.4(H) 37.0 - 46.0 [facility] LABORATORY RDWCV 14.9(H) 11.5 - 14.1 % [facility] MPV 11.1 7.6 - 12.9 [facility] LABORATORY nRBC % Auto 0.0 % [facility] nRBC Abs Auto 0.000 0.000 - 0.000 x10(3)/[facility] LABORATORY Blood No Charge / Unknown 10/13/2022 4:50 PM EDT 10/13/2022 5:26 PM EDT Narrative Resulting Agency Comment Spec In Lab Estee Zeng MD HEMATOLOGY ORDERABLE S [facility] [place] [address] * Beta HCG, quantitative (10/13/2022 4:50 PM EDT) Beta hCG Quant <1 mlU/ML [facility] Comment: REFERENCE RANGES NON- FEMALE: [...] ? 9,040 - 56,451 ?17 weeks ? 8,175 - 60,909 ?18 weeks ? 8,872 - 31,634 This result was generated using a Maxim Tim immunoassay. ??Results obtained from other methods or manufacturers cannot be used interchangeably with this method. Blood No Charge / Unknown 10/13/2022 4:50 PM EDT 10/13/2022 5:25 PM EDT Narrative Resulting Agency Comment Spec In Lab Estee Zeng MD CHEMISTRY ORDERABLES [facility] [place] [address] * (ABNORMAL) Basic Metabolic Panel (non-fasting) (10/13/2022 4:50 PM EDT) Glucose Lvl 73 65 - 199 mg/dL [facility] Comment:Diabetes: >=200 mg/d L plus symptoms BUN 19(H) 8 - 18 mg/dL [facility] Creatinine 1.09 0.70 - 1.20 mg/dL [facility] Sodium 137 135 - 145 mmol/L [facility] Potassium 4.7 3.5 - 5.0 mmol/L [facility] Comment: Please note: ??Patients with WBC >100,000 may have falsely elevated Potassium levels. ??For accurate Potassium quantification in these patients send serum separator tube (gold top) for subsequent determinations. ??Contact the Clinical Chemistry Laboratory if there are any questions. Chloride 104 98 - 107 mmol/L [facility] CO2 24 22 - 31 mmol/L [facility] Anion Gap 9 5 - 15 mmol/L [facility] Calcium 8.5 8.5 - 10.5 mg/dL [facility] Estimated GFR 70 >=60 mL/min/1. 73 m?? [facility] Comment: This patient's estimated GFR [...] Zeng MD CHEMISTRY ORDERABLES Performing Organization Address City/[facility]/ZIP Co de Phone Number [facility] [place] [address] * Lavender Tube HOLD (10/13/2022 4:50 PM EDT) Lavender Hold Sample in lab. [facility] Blood No Charge / Unknown 10/13/2022 4:50 PM EDT 10/13/2022 5:26 PM EDT Jase Lopez MD HEMATOLOGY ORDERABLE S Performing Organization Address City/[facility]/ZIP Co de Phone Number [facility] [place] [address] * Blue Tube HOLD (10/13/2022 4:50 PM EDT) Blue Hold Sample in lab. [facility] Blood No Charge / Unknown 10/13/2022 4:50 PM EDT 10/13/2022 5:26 PM EDT Jase Lopez MD HEMATOLOGY ORDERABLE S Performing Organization Address City/[facility]/ZIP Co de Phone Number [facility] [place] [address] * Green Tube HOLD (10/13/2022 4:50 PM EDT) Green Hold Sample in lab. [facility] Blood No Charge / Unknown 10/13/2022 4:50 PM EDT 10/13/2022 5:25 PM EDT Jase Lopez MD CHEMISTRY ORDERABLES Performing Organization Address City/[facility]/ZIP Co de Phone Number [facility] [place] [address] * Gold Tube HOLD (10/13/2022 4:50 PM EDT) [facility] Signature Gold Hold Sample in lab. [facility] Blood No Charge / Unknown 10/13/2022 4:50 PM EDT 10/13/2022 5:25 PM EDT Jase Lopez MD CHEMISTRY ORDERABLES [facility] [place] [address] * Prepare RBC (10/13/2022 4:45 PM EDT) Dispensed? Yes [facility] Blood 10/13/2022 4:45 PM EDT 10/13/2022 4:46 PM EDT Estee Zeng MD BLOOD BANK PRODUCT O RDERABLES [facility] [place] [address] * Type and Screen Validity (10/13/2022 4:40 PM EDT) T&S only valid at [facility] LABORATORY Comment:This Type and Screen result is only valid at the [facility] Blood 10/13/2022 4:40 PM EDT 10/13/2022 5:23 PM EDT Narrative Resulting Agency Comment Spec In Lab Jase Lopez MD BLOOD BANK LAB ORDER SANDY [facility] [place] [address] * ABORH Recheck Status (10/13/2022 4:40 PM EDT) ABORH Recheck Order Order Placed [facility] ABORH Type Recheck Complete [facility] Blood 10/13/2022 4:40 PM EDT 10/13/2022 5:23 PM EDT Narrative Resulting Agency Comment Spec In Lab Jase Lopez MD BLOOD BANK LAB ORDER SANDY Performing Organization Address City/[facility]/ZIP Co de Phone Number [facility] [place] [address] * Antibody screen (10/13/2022 4:40 PM EDT) Ab Screen Interp Negative [facility] Expires at 2359 on: 10/16/2022 [facility] Blood 10/13/2022 4:40 PM EDT 10/13/2022 5:23 PM EDT Narrative Resulting Agency Comment Spec In Lab Jase Lopez MD BLOOD BANK LAB ORDER SANDY [facility] [place] [address] * ABO/Rh Typing (10/13/2022 4:40 PM EDT) ABORH Type O Pos [facility] Blood 10/13/2022 4:40 PM EDT 10/13/2022 5:23 PM EDT Narrative Resulting Agency Comment Spec In Lab Jase Lopez MD BLOOD BANK LAB ORDER SANDY [facility] [place] [place] [address] * POCT Glucose (10/13/2022 4:38 PM EDT) POC Glucose 73 65 - 199 mg/dL [facility] Comment: Supplemental ranges: <140 mg/dL before meals <180 mg/dL all other times of the day Blood 10/13/2022 4:38 PM EDT 10/13/2022 4:38 PM EDT Md Emergency Dept MD POINT OF CARE TEST ORDERABLES [facility] [place] [address] * SCAN DOC: LAB (10/13/2022 12:00 AM EDT) Narrative 10/13/2022 12:00 AM EDT Ordered by an unspecified provider. Scanning Provider MEDIA MGR SCAN EXT O RDR/RSLT documented in this encounter Visit Diagnoses Diagnosis Vaginal bleeding- Primary Other specified noninflammatory disorder of vagina Non-ST elevation myocardial infarction (NSTEMI) Acute myocardial infarction, subendocardial infarction, episode of care unspecified Abnormal uterine bleeding (AUB) Vaginal bleeding Other specified noninflammatory disorder of vagina [place] (obstructive sleep apnea) Obstructive sleep apnea (adult) (pediatric) Class 3 severe obesity with body mass index (BMI) of 60.0 to 69.9 in adult Type 2 diabetes mellitus with hyperglycemia, with long-term current use of insulin documented in this encounter Admitting Diagnoses Diagnosis Vaginal bleeding Other specified noninflammatory disorder of vagina documented in this encounter Administered Medications Inactive Administered Medications - up to 3 most recent administrations Medication Order MAR Action Action Date Dose Rate Site acetaminophen (Tylenol) tablet 975 mg 975 mg, Oral, EVERY 6 HOURS PRN, Starting on Wed10/13/22 at 2320, Until Christa 10/15/22 at 1835, Pain, once patient able to [...] (Thorazine) tablet 200 mg 200 mg, Oral, 3 TIMES DAILY PRN, Starting on Wed10/14/22 at 2044, Until Wed10/15/22 at 0653, Anxiety, insomnia, Routine Given 10/14/2022 9:19 PM EDT 200 mg chlorproMAZINE (Thorazine) tablet 200 mg 200 mg, Oral, NIGHTLY, First dose (after last modification) on Wed10/15/22 at 2100, Until Discontinued, Routine chlorproMAZINE (Thorazine) tablet 50 mg 50 mg, Oral, DAILY PRN, Starting on Wed10/15/22 at 0653, Until Wed10/15/22 at 1835, Anxiety, Routine dextrose 10% infusion 50 mL/hr, Intravenous, CONTINUOUS, Starting on Wed10/13/22 at 1648, Until Wed10/14/22 at 0110 Rate/Dose Change 10/13/2022 7:18 PM EDT 50 mL/hr New Bag 10/13/2022 4:52 PM EDT 50 mL/hr 50 mL/hr dextrose 10% infusion 250 mL, at 1,000 [...] Given 10/15/2022 8:23 AM EDT 10 mg estrogens (conjugated) (Premarin) (5 mg/mL) injection 25 mg 25 mg, Intravenous, ONCE, 1 dose, On Wed10/13/22 at 1748, STAT Given 10/13/2022 6:11 PM EDT 25 mg furosemide (Lasix) tablet 40 mg 40 [...] Given 10/14/2022 5:07 PM EDT 4 Units iohexoL (Omnipaque) (350 mg/mL) solution 1-400 mL 1-400 mL, Other, ONCE, 1 dose, On Wed10/13/22 at 2003, For intra-procedural use by proceduralist., Angio/IR (Intra-Procedure), Routine Given 10/13/2022 9:23 PM EDT 95 mLs levothyroxine (Synthroid) tablet 200 mcg 200 mcg, [...] Given 10/14/2022 8:05 PM EDT 10 mg norethindrone (Aygestin) tablet 5 mg 5 mg, Oral, 2 TIMES DAILY, First dose on Wed10/13/22 at 2315, Until Discontinued, Routine Given 10/13/2022 11:56 PM EDT 5 mg perflutren protein-A microsphers (Optison) (0.22 mg/mL) injection 0.6 mL 0.6 mL, Intravenous, ONCE PRN, 1 dose, Starting on Wed10/14/22 at 1507, Until Wed10/14/22 at 1508, Per Protocol, Routine Given 10/14/2022 3:08 PM EDT 0.6 mLs senna-docusate (Pericolace) 8.6-50 mg per tablet 2 [...] PRN, Starting on Wed10/13/22 at 2339, Until Christa 10/15/22 at 1835, flush, Flush pertains to all indwelling lines. Flush per protocol found in the job aid using the link provided on this medication record., Recovery (Recovery-Hospital Unit), Routine sodium chloride 0.9% infusion 100 mL/hr, Intravenous, CONTINUOUS, Starting on Wed10/13/22 at 2345, Until Christa 10/15/22 at 1835 New Bag 10/14/2022 11:18 AM [...] Routine 0859 (Given - Provider: Prabha De Souza, TOM) 0826 (Given - Provider: Kaya Godfrey RN) chlorproMAZINE [...] on Wed10/15/22 at 0900, Until Discontinued, Routine 821 (Given - Provider: Kaya Godfrey RN) gabapentin (Neurontin) capsule 300 mg 300 mg, Oral, 3 TIMES DAILY, First dose on Wed10/15/22 at 0900, Until Discontinued, Routine 08 (Given - Provider: Kaya Godfrey RN)1538 (Given - Provider: Kaya Godfrey RN) insulin glargine-ygfn (Semglee) (100 unit/mL) subcutaneous injection vial 12 Units 12 Units, Subcutaneous, 2 TIMES DAILY, First dose (after last modification) on Wed10/14/22 at 2145, Until Discontinued, Routine 2141 (Given - Provider: Felipa Alamo, TOM) 08 (Given - Provider: Kaya M Epifanio, RN) insulin lispro (HumaLOG;Admelog) (100 unit/mL) subcutaneous [...] OPEN, Routine 2004 (Given - Provider: Felipa Alamo RN) norethindrone (Aygestin) tablet 10 mg 10 mg, Oral, 3 TIMES DAILY, First dose (after last modification) on Wed10/14/22 at 0900, Until Discontinued, Routine 0900 (Given - Provider: Prabha De Souza RN)1524 (Given - Provider: Prabha De Souza RN)2004 (Given - Provider: Felipa Alamo RN) 0822 (Given - Provider: Kaya Godfrey RN)1538 (Given [...] area)2332 (JUL Unhold - Provider: Admin Adt) 10 (Not Given - Provider: Felipa Alamo RN - Reason: Patient/family refused)08 (Given - Provider: Prabha De Souza RN)2008 [...] Comment: infusing)0900 (Given - Provider: Prabha De Souza, TOM)2004 (Given - Provider: Felipa Alamo RN) 08 [...] 0110 1652 (New Bag - Provider: Estephania Baird RN)1918 (Rate/Dose Change - Provider: Kyler Godfrey CRNA)2130 (JUL Hold - Provider: Admin Adt - Reason: Transfer to a Procedural area)2332 (JUL Unhold - Provider: Admin Adt)2356 (Stopped - Provider: Felipa Alamo RN - Comment: per provider only NS should be running) sodium chloride 0.9% infusion 100 mL/hr, Intravenous, CONTINUOUS, Starting on Wed10/13/22 at 2345, Until Christa 10/15/22 at 1835 2356 (New Bag - Provider: Felipa Alamo RN) 1118 (New Bag - Provider: Lia Vaughn RN)1405 (Stopped - Provider: Prabha De Souza, TOM) PRN Medication Order 10/13/2022 10/14/2022 10/15/2022 acetaminophen (Tylenol) tablet 975 mg 975 mg, Oral, EVERY 6 HOURS PRN, Starting on Wed10/13/22 at 2320, Until Christa 10/15/22 at 1835, Pain, once patient able to [...] Until Wed10/15/22 at 0653, Anxiety, insomnia, Routine 2118 (Given - Provider: Marilee Alamo RN) chlorproMAZINE (Thorazine) tablet 50 mg 50 mg, Oral, DAILY PRN, Starting on Wed10/15/22 at 0653, Until Wed10/15/22 at 1835, Anxiety, Routine dextrose 10% infusion(Linked [...] Protocol, Routine 1508 (Given - Provider: Hussein Berg) sodium chloride 0.9 % (flush) (BD PosiFlush Normal Saline 0.9) flush 5-20 mL 5-20 mL, Intravenous, EVERY 1 MIN PRN, Starting on Wed10/13/22 at 2339, Until Christa 10/15/22 at 1835, flush, Flush pertains to all [...] Routine documented in this encounter Care Teams Variety Performer Relationship Specialty Start Date End Date Lia Pearson APRN [address] [place] [address] PCP - General Geriatric Medicine 02/09/22 documented as of this encounter
--- OUTSIDE RECORDS SUMMARY | 2023-11-26 19:31 | XMS_ITS | Encounter Summary ---
Author Organization [place] [address] Care Team Providers Care Retail General Manager Name Role Phone Lia Pearson APRN Primary Care Provider [phone] Encounter Details Date Type Department Care Team (Latest Contact Info) Description 10/13/2022 Travel Social History Tobacco Use Types Packs/Day [...] EDT TH Visit (TeleHealth) [place] [address] Michael Morgan, [facility] [place] [address] documented as of this encounter Goals Goal [...] Note: Practice STOP and Urge Surfing. Health [employer] Operator will send hand-outs. Movement Lifestyle On track( 023 1:14 PM EDT) Riddhi Buchanan RD Note: Continue to walk stairs and walks when can. Will continue using stairs as it's colder. Look into finding weights free online or at [employer] stores. Could use water-filled milk jugs as weights-a full gallon jug would be 8 lbs. Will look into nearby rec center 04/16/22 NATHALIA documented as of this encounter Visit Diagnoses Not on filedocumented in this encounter Care Teams Retail General Manager Relationship Specialty Start Date End Date Lia Pearson APRN Erika[address] [place] [address] PCP - General Geriatric Medicine 02/09/22 documented as of this encounter
--- OUTSIDE RECORDS SUMMARY | 2023-11-26 19:31 | XMS_ITS | Encounter Summary ---
Author Organization [facility] [place] [address] Care Team Providers Care Manager Ethics Name Role Phone Lia Pearson APRN Primary Care Provider [phone] Encounter Details Date Type Department Care Team (Late st Contact Info) Description 07/15/2022 External Results [place] [address] Rebeka Up, RN Social History Tobacco Use Types Packs/Day [...] EDT TH Visit (TeleHealth) [place] [address] Michael Morgan, [facility] [place] [address] documented as of this encounter Goals Goal [...] Practice STOP and Urge Surfing. Health Director [place] will send hand-outs. Movement Lifestyle On track( 023 1:14 PM EDT) Riddhi Buchanan RD Note: Continue to walk stairs and walks when can. Will continue using stairs as it's colder. Look into finding weights free online or at [employer] stores. Could use water-filled milk jugs as weights-a full gallon jug would be 8 lbs. Will look into nearby rec center 04/16/22 NATHALIA documented as of this encounter Procedures Procedure Name Priority Date/Time Associated Diagnosis Comments [facility] EXTERNAL LABS 2 Routine 07/07/2022 documented in this encounter Results * (ABNORMAL) [facility] Labs 2 - External (07/07/2022) Chol, Total 162 Triglycerides 132 HDL 44 LDL Cholesterol 92 Glucose Lvl 163(H) Sodium 141 Potassium 4.4 Chloride 105 CO2 26 BUN 15 Creatinine 1.2(H) Estimated GFR 62.45 AST 21 ALT 38 25-OH Vit D Total 14.2(L) TSH 1.6 Hemoglobin 12.3 Hematocrit 39.2 WBC 8.3 Platelets 410(H) 07/07/2022 Historical Provider POINT OF CARE SARAY T ORDERABLES documented in this encounter Visit Diagnoses Not on filedocumented in this encounter Care Teams Manager Ethics Relationship Specialty Start Date End Date Lia Pearson APRN [address] [place] [address] PCP - General Geriatric Medicine 02/09/22 documented as of this encounter
--- OUTSIDE RECORDS SUMMARY | 2023-11-26 19:31 | XMS_ITS | Encounter Summary ---
Author Organization [facility] [place] [address] Care Team Providers Care Cement Mixer Name Role Phone Lia Pearson APRN Primary Care Provider [phone] Reason for Visit * Reason Comments Medication Refill Encounter Details Date Type Department Care Team (Late st Contact Info) Description 05/06/2022 Refill Obstetrics [place] [phone] Sarahi Mercedes MD [facility] [address] OBSTETRICS [place] [address] Abnormal uterine bleeding (AUB) Social History Tobacco [...] EDT TH Visit (TeleHealth) [place] [phone] Michael Morgan, [facility] [address] documented as of this encounter Goals Goal Patient Goal Type Associated Problems Recent Progress Patient-Stated? Author Other (Enter personal goal) Lifestyle On track( 1:14 PM EDT) Riddhi Buchanan RD Note: -Add peanut butter to oatmeal -Continue to add beans to meals as a source of protein and fiber -If can, buy fresh vegetables and fruit from [employer]-sent message with resources -Choose whole grain [...] Note: Practice STOP and Urge Surfing. Health Head Butler will send hand-outs. Movement Lifestyle On track( 1:14 PM EDT) Riddhi Buchanan RD Note: Continue to walk stairs and walks when can. Will continue using stairs as it's colder. Look into finding weights free online or at [employer] stores. Could use water-filled milk jugs as weights-a full gallon jug would be 8 lbs. Will look into nearby rec center 04/16/22 documented as of this encounter Visit Diagnoses Diagnosis Abnormal uterine bleeding (AUB) documented in this encounter Care Teams Cement Mixer Relationship Specialty Start Date End Date Lia Pearson APRN Erika[address] [place] [address] PCP - General Geriatric Medicine 02/09/22 documented as of this encounter
--- OUTSIDE RECORDS SUMMARY | 2023-11-26 19:32 | XMS_ITS | Encounter Summary ---
Author Organization [facility] [place] [address] Care Team Providers Care Branch Manager Trainee Name Role Phone Lia Pearson APRN Primary Care Provider [phone] Encounter Details Date Type Department Care Team (Latest Contact Info) Description 03/03/2022 5:57 AM EDT - 03/03/2022 12:13 PM EDT Hospital En[place] [address] Sabrina Swain MD [facility] [address] OBSTET[place] [address] Abnormal uterine bleeding; Morbid obesity with BMI of 70 and over, adult Discharge Disposition: Home Social History Tobacco Use [...] Sign Reading Time Taken Comments Blood Pressure 160/90 03/03/2022 11:00 AM EDT Pulse 101 03/03/2022 10:30 AM EDT Temperature 36.2 ??C (97.2 ??F) 03/03/2022 8:27 AM ED T Respiratory Rate 18 03/03/2022 11:0 0 AM EDT Oxygen Saturation 92% 03/03/2022 11: 00 AM EDT Inhaled Oxygen Concentration - - Weight 193.8 kg (427 lb 3.2 oz) 03/03/2022 6:13 AM EDT Height 165.1 cm (5' 5) 03/03/2022 6:13 AM EDT Body Mass Index 71.09 03/03/2022 6:13 AM EDT documented in this encounter Discharge Instructions * Patient Instructions* Marco Patel MD - 03/02/2022 11:36 PM EDT Hysteroscopy/D&C Instructions Follow -Up appointment: 03/25/2022 10:20 AM Sabrina Swain MD [facility] [place] 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 You should go home and rest the remainder of the day. You can resume light activity the day after your procedure but do not be surprised if you feel tired and weak for a few days. It is normal to have some menstrual-type cramping. Use of a heating pad or hot water bottle and elevating your feet may be helpful. Postpone any important personal or business decisions for at least [address] or operate dangerous machinery for 24 hours. No alcoholic beverages should be consumed for at least 24 hours after surgery. 7. If you are not nauseated, you may resume your normal diet. MEDICATIONS A prescription for pain medication may be sent home with you; use as directed by your doctor. You may take non-prescription pain medication (Advil/Motrin/Tylenol) for pain or discomfort. Take all pain medication with food or milk to avoid stomach upset. Increasing your intake of non-caffeinated fluids and dietary fiber will help prevent constipation while taking prescription pain medication. Continue taking Aygestin twice daily for a week and then once a day after that. BLEEDING / NEXT MENSTRUAL PERIOD Do not expect your bleeding to be like a normal period. It may stop today or may continue for up to2 weeks. It may stop and start up again. This is all normal unless it becomes extremely heavy (saturating a pad/hour) or you are passing clots larger than an egg. Your next period should occur when you would normally expect it (usually 2-4 weeks). If your procedure was related to a , expect your next period in 4-8 weeks. Call your doctor if you do not have your period within 8 weeks. VAGINAL PRECAUTIONS Nothing should enter the vagina for one (1) week: NO sexual intercourse NO tampons NO swimming or tub baths NO douching CALL YOUR DOCTOR IF You have a temperature of 100.4 or more for 4 hours You have worsening cramps, develop lower abdominal pain or tenderness, experience chills or notice a foul-smelling vaginal discharge. You have severe pain in your chest, difficulty breathing or fainting. You have vaginal bleeding in excess of one pad/hour or pass clots larger than an egg. *Please call the Department of ENTRY LEVEL CIVIL ENGINEER @ [phone] for any problem that concerns you. If you are in need of immediate medical attention please go to the nearest Emergency Department. documented in this encounter Medications at Time of Discharge Medication Sig Dispensed Refills Start Date End Date gabapentin (Neurontin) 300 mg CapsuleIndications:T ype 2 diabetes mellitus with diabetic neuropathy, with [...] NEEDLES DAILY 10/31/2021 prazosin (Minipress) 5 mg CapsuleIndications:p ost traumatic stress disorder Take 10 mg by mouth nightly. Indications: posttraumatic stress syndrome 11/07/2021 acetaminophen (Tylenol) 325 mg Tablet Take 2 tablets by mouth every 4 hours as needed for Pain. 90 tablet 1 03/03/2022 06/05/2023 norethindrone (Aygestin) 5 mg TabletIndications:Ab normal uterine bleeding Take 1 tablet by mouth 3 times daily. 180 tablet 3 02/26/2022 03/06/2022 chlorproMAZINE (Thorazine) 50 mg Tablet Take 50 mg by mouth as needed. 12/18/2021 03/19/2023 QUEtiapine (SEROquel) 200 mg Tablet Take 200 mg by mouth nightly as needed. 12/09/2021 10/14/2022 QUEtiapine (SEROquel) 400 mg Tablet Take 400 mg by mouth nightly. 02/17/2022 10/14/2022 traZODone (Desyrel) 100 mg Tablet Take 300 mg by mouth nightly. 01/30/2022 03/19/2023 semaglutide (Ozempic) 2 mg/dose (8 mg/3 mL) Pen Injector Inject 2 mg subcutaneously every 7 days. Takes Wednesdays 02/06/2022 03/24/2023 ergocalciferoL, vitamin D2, (vitamin D2) 50,000 unit CapsuleIndications:V itamin D deficiency Take 1 capsule by mouth once a week for 56 days. After completion of prescription, begin taking lower daily doses of Vit D per provider's instruction. (Usually 1000-2000IU daily) 8 capsule 02/18/2022 04/15/2022 semaglutide (Ozempic) 1 mg/dose (4 mg/3 mL) Pen InjectorIndications: Class 3 severe obesity with body mass index (BMI) greater than or equal to 70 in adult, unspecified obesity type, unspecified whether serious comorbidity present,Type 2 diabetes mellitus with hyperglycemia, with long-term current use of insulin Inject 1 mg subcutaneously once a week. 3 mL 3 01/16/2022 05/29/2022 Lantus Solostar U-100 Insulin 100 unit/mL (3 [...] 1 tablet by mouth nightly. 09/26/2021 02/12/2023 ziprasidone (GEODON) 60 mg Capsule Take 60 mg by mouth 2 times daily (with meals). 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 G0 PMH DM, IBS, hypothyroid, [place], and obesity (BMI 72) presenting for scheduled EUA, pap smear, TVUS, and hysteroscopy D&C for AUB. Patient was seen in clinic with Dr. Swain on 11/26 for assessment of daily vaginal bleeding since menarche and anemia (Hg 8.3 on 10/2021, Hg 12.2 on 02/15). She is an established patient at [facility], had a plan for pap/emb/ IUD insertion underanesthesia but was un able to do due to BMI. She has not had a pap smear done before. Patient had previous workup for von willebrand disease but was told that she does not have it. S: Zenia Worley feels well today. No complaints / concerns Feeling nervous before the procedure. Denies any changes to her past medical or past surgical history. No new medications or allergies. Presents today alone but has plans for a drive home. Anticipating same day surgery discharge. [facility] she reports decreased bleeding since she last saw Dr. Swain. She denies recent fevers, chills, chest pain, SOB, N/V, abdominal pain, vaginal bleeding , and leg pain. ALUMNI COORDINATOR Hx Most recent pap: never History of STI: never History of ALUMNI COORDINATOR pathology: no Reproductive life planning: Currently sexually active? No Past Medical History: Diagnosis Date ??? Anemia [...] Seizure ??? Spinal paralysis ??? Transfusion history No past surgical history on file. Current Outpatient Medications Medication Instructions ??? ARIPiprazole (ABILIFY) 15 mg, Oral, DAILY ??? BD AutoShield Duo Pen Needle 30 gauge x 3/16 Needle USE UP TO 5 PEN NEEDLES DAILY ??? chlorproMAZINE (THORAZINE) 50 mg, Oral, PRN ??? cyanocobalamin (vitamin B-12) 1,000 mcg, Oral, DAILY ??? ergocalciferoL (vitamin D2) (VITAMIN D2) 50,000 Units, Oral, WEEKLY, After completion of prescription, begin taking lower daily doses of Vit D per provider's instruction. (Usually 1000-2000IU daily) ??? ferrous gluconate 324 mg, Oral, 2 TIMES DAILY ??? furosemide (LASIX) 40 mg, Oral, EVERY MORNING ??? gabapentin (NEURONTIN) 300 mg, Oral, 2 TIMES DAILY ??? glucose 4 gram Tablet, Chewable CHEW ONE TABLET BY MOUTH EVERY 10 MIN. NEEDED FOR HYPOGLYCEMIA UNTIL SYMPTOMS OF LOW BLOOD SUGAR ARE CONTROLLED ??? Lantus Solostar U-100 Insulin 12 Units, Subcutaneous, DAILY ??? levothyroxine (SYNTHROID) 200 mcg, Oral, DAILY ??? losartan (COZAAR) 25 mg, Oral, DAILY ??? metFORMIN XR (GLUCOPHAGE XR) 1,000 mg, Oral, 2 TIMES DAILY ??? metoprolol succinate XL (TOPROL-XL) 50 mg, Oral, DAILY ??? norethindrone (AYGESTIN) 5 mg, Oral, 3 TIMES DAILY ??? NovoLOG Flexpen U-100 Insulin 9 Units, Subcutaneous, 3 TIMES DAILY BEFORE MEALS, 35 UNITS THIS AMSLIDING SCALE 9-35 UNITS BID ??? Ozempic 2 mg, Subcutaneous, EVERY 7 DAYS ??? polyethylene glycoL (MIRALAX) 17 g, Oral, DAILY PRN ??? prazosin (Minipress) 5 mg Capsule TAKE ONE CAPSULE BY MOUTH AT BEDTIME; MAY TAKE ONE NEEDED FOR ANXIETY ??? QUEtiapine (SEROQUEL) 200 mg, Oral, NIGHTLY PRN ??? QUEtiapine (SEROQUEL) 400 mg, Oral, NIGHTLY ??? rosuvastatin (Crestor) 40 mg Tablet 1 tablet, Oral, NIGHTLY ??? semaglutide (OZEMPIC) 1 mg, Subcutaneous, WEEKLY ??? traZODone (DESYREL) 100 mg, Oral, NIGHTLY PRN ??? ziprasidone (GEODON) 60 mg, Oral, 2 TIMES DAILY WITH MEALS Social History Tobacco Use ??? Smoking status: Former Smoker ??? Smokeless tobacco: Never Used Vaping Use ??? Vaping Use: Former ??? Substances: Nicotine Substance Use Topics ??? Alcohol use: Not Currently ??? Drug use: Never Allergies Allergen Reactions ??? Fluoxetine Affected glucose level O: BP (!) 137/96 Pulse (!) 125 Temp 36.3 ??C (97.3 ??F) (Temporal) Resp 16 Ht 165.1 cm (5' 5) Wt (!) 193.8 kg (427 lb 3.2 oz) SpO2 99% BMI 71.09 kg/m?? Gen: Sitting in bed, appears comfortable CV: Normal rate, regular rhythm, normal S1 and S2, no murmurs / rubs / gallops Resp: Clear to auscultation bilaterally, no wheezes / crackles Abd: nontender, nondistended Ext: Warm, well perfused, non-tender *remainder of exam deferred to the OR Recent Results (from the past 24 hour(s)) POCT Glucose Result Value Ref Range POC Glucose 259 (H) 65 - 199 mg/dL A/P: 31 y.o. female presents for planned EUA, TVUS, H/S D&C, Poss polypectomy, IUD insersion for AUB. -- POCT urine : Pending -- Surgical consent reviewed with patient and placed in the chart; previously signed on 11/26. -- Antibiotics: Not indicated -- VTE prophylaxis: SCDs -- Proceed to OR for planned procedure. Marco Patel MD PGY1 03/03/2022 I have seen the patient, discussed the plan of care with the resident as well as the patient, and agree with documentation as above. We again discussed pros and cons of MIUD placement, as I think this will likely be very helpful for her bleeding in the context of elevated BMI, but if there are issues with the IUD, it will necessitate a pelvic exam/US and/or return to OR. We talked this through and she stated that she does continue to desire IUD insertion. We also discussed that I will collect any biopsies as indicated by exam, in an effort to best diagnose and treat her bleeding. Sabrina Swain MD documented in this encounter Miscellaneous Notes * Brief Op Note - Sabrina Swain MD - 03/03/2022 9:50 AM EDT Brief Operative Note Patient Name: Zenia Worley : [id number] MR#: [id number] Case Date: 03/03/2022 Surgeon: Surgeon(s) and Role: * Sabrina Swain MD - Primary * Sarahi Mercedes MD - Resident * Marco Patel MD - Resident Preoperative diagnosis: abnormal uterine bleeding, BMI 70+ Postoperative diagnosis: abnormal uterine bleeding, BMI 70+ Procedure(s) (LRB): HYSTEROSCOPY, SURG W/ENDOMETRIAL SAMPLING, POLYPECTOMY (WRVU 4.74) (N/A) PELVIC EXAM UNDER ANESTHESIA (WRVU 1.75) (N/A) PAP SMEAR UNDER ANESTHESIA (N/A) INSERTION OF IUD, VAGINAL APPROACH (WRVU 1.01) (N/A) ULTRASOUND, TRANSVAGINAL (WRVU 0.69) (Midline) Exam under anesthesia Pelvic ultrasound under anesthesia Pap Operative hysteroscopy with myosure curettage Sharp curettage Insertion of Mirena IUD Anesthesia: General Findings: 1. On EUA, cervix palpable. No gross lesions of the vagina or cervix. Pap obtained. Further exam limited by habitus. Uterine sound 12 cm. Straight cath 70 cc clear yellow urine. Negative urine test. 2. Pelvic ultrasound: 11cm uterus, 2.5 cm globally thickened and vascular endometrium. No obvious myometrial abnormalities. Normal ovaries - please see full US report 3. On hysteroscopy, enlarged cavity, global pathology, resected under direct visualization. 4. Mirena IUD placed at the fundus following standard manufacturers guidelines. String trimmed to 4cm. Complications: none Intake: IV Fluids: 500cc Hysteroscopic deficit 540 cc NS Output: Estimated Blood Loss: 30 cc Urine Output:: 70 cc via straight cath Drains: none Specimens removed during surgery: Order Name Source Comment Collection Info Order Time CYTOPATHOLOGY GYNECOLOGICAL 03/03/2022 8:39 AM HPV Testing choice (NOT recommended under 20 years): Concurrent HPV and Pap Chlamydia / Gonorrhea from the same vial? Yes Sample(s) provided: Liquid based Pap Specimen collected from: Cervical/Endocervical Last menstrual period (Date mm/dd/yy, Unknown, Postmenopausal, or N/A)? unknown Hysterectomy? No ? No ? No IUD? No Pelvic radiation? No History of abnormal Pap or cervical biopsy? No Prior ALUMNI COORDINATOR therapy? (Cone bx, Cautery, Cryotherapy, Surgery) No History of HPV vaccination? No ICD-10 Diagnosis: Z12.4 Encounter for screening for malignant neoplasm of cervix SPECIMEN [place] PATHOLOGY [place] OR4 100[address] abnormal uterine bleeding, BMI 70+ endometrial curettings excision No 03/03/2022 9:49 AM Time specimen removed from patient: 9:05 AM Number of tissue samples (in container) 1 Biospecimen to store? No [place] 4 [id number] abnormal uterine bleeding, BMI 70+ Myosure Curettings excision No 03/03/2022 9:49 AM Time specimen removed from patient: 9:48 AM Number of tissue samples (in container) 1 Biospecimen to store? No Disposition: awakened from anesthesia, extubated and taken to the recovery room in a stable condition, having suffered no apparent untoward event. Condition: doing well without problems Attestation: Case Date: 03/03/2022 I was present and I participated during the entire procedure (does not need to include opening and closing). (Please see the Surgical Encounter Summary for any Implant and Specimen details pertinent to this patient.) Surgical Infection Prevention Bundle Used? N/A Sabrina Swain MD * Op Note - Sabrina Swain MD - 03/03/2022 8:25 AM EDT [facility] [place] Operative Note ?? Patient Name: Zenia Worley : [id number] MR#: [id number] ?? Case Date: 03/03/2022 ?? Surgeon: Surgeon(s) and Role: * Sabrina Swain MD - Primary * Sarahi Mercedes MD - Resident * Marco Patel MD - Resident ?? Preoperative diagnosis: 1. abnormal uterine bleeding 2. BMI 70+ 3. History of trauma, unable to tolerate pelvic exam in office ?? Postoperative diagnosis: 1. abnormal uterine bleeding 2. BMI 70+ 3. History of trauma, unable to tolerate pelvic exam in office ?? Procedure(s) (LRB): HYSTEROSCOPY, SURG W/ENDOMETRIAL SAMPLING, POLYPECTOMY (WRVU 4.74) (N/A) PELVIC EXAM UNDER ANESTHESIA (WRVU 1.75) (N/A) PAP SMEAR UNDER ANESTHESIA (N/A) INSERTION OF IUD, VAGINAL APPROACH (WRVU 1.01) (N/A) ULTRASOUND, TRANSVAGINAL (WRVU 0.69) (Midline) ?? Exam under anesthesia Pelvic ultrasound under anesthesia Pap Operative hysteroscopy with myosure curettage Sharp curettage Insertion of Mirena IUD Anesthesia: General ?? Findings: 1. On EUA, cervix palpable. No gross lesions of the vagina or cervix. Pap obtained. Further exam limited by habitus. Uterine sound 12 cm. Straight cath 70 cc clear yellow urine. Negative urine test. 2. Pelvic ultrasound: 11cm uterus, 2.5 cm globally thickened and vascular endometrium. No obvious myometrial abnormalities. Normal ovaries - please see full US report 3. On hysteroscopy, enlarged cavity, global pathology, resected under direct visualization. Suboptimal hysterosocopic visualization. . 4. Mirena IUD placed at the fundus following standard manufacturers guidelines. String trimmed to 4cm. ?? Complications: none Intake: IV Fluids: 500cc Hysteroscopic deficit 540 cc NS ?? Output: Estimated Blood Loss: 30 cc Urine Output:: 70 cc via straight cath Drains: none ?? Specimens removed during surgery: Order Name Source Comment Collection Info Order Time CYTOPATHOLOGY GYNECOLOGICAL ? 03/03/2022 8:39 AM HPV Testing choice (NOT recommended under 20 years): Concurrent HPV and Pap ? Chlamydia / Gonorrhea from the same vial? Yes ? Sample(s) provided: Liquid based Pap ? Specimen collected from: Cervical/Endocervical ? Last menstrual period (Date mm/dd/yy, Unknown, Postmenopausal, or N/A)? unknown ? Hysterectomy? No ? No ? No ? IUD? No ? Pelvic radiation? No ? History of abnormal Pap or cervical biopsy? No ? Prior ALUMNI COORDINATOR therapy? (Cone bx, Cautery, Cryotherapy, Surgery) No ? History of HPV vaccination? No ? ICD-10 Diagnosis: Z12.4 Encounter for screening for malignant neoplasm of cervix ? SPECIMEN TO PATHOLOGY ?? [place] OR4 [id number] abnormal uterine bleeding, BMI 70+ endometrial curettings excision No 03/03/2022 9:49 AM Time specimen removed from patient: 9:05 AM ? Number of tissue samples (in container) 1 ? Biospecimen to store? No ? SPECIMEN TO PATHOLOGY ?? [place]ermanent OR 4 [id number] abnormal uterine bleeding, BMI 70+ Myosure Curettings excision No 03/03/2022 9:49 AM Time specimen removed from patient: 9:48 AM ? Number of tissue samples (in container) 1 ? Biospecimen to store? No ? Disposition: awakened from anesthesia, extubated and taken to the recovery room in a stable condition, having suffered no apparent untoward event. ?? Condition: doing well without problems (Please see the Surgical Encounter Summary for any Implant and Specimen details pertinent to this patient.) HPI/Surgical Indications: Zenia Worley is a 31 y.o. G0 who presented with AUB. She was unable to tolerate exam in the office or TVUS while awake, so plan was made for exam, pap smear, TVUS, hysteroscopy, D&C under anesthesia as well as placement of Mirena IUD. Informed consent was obtained at her office visit and the consent form was signed. Please see prior documentation for details of conse nt discussion. On the morning of surgery, consent was reaffirmed. Procedure: The patient was taken to the OR with IV fluid running and SCDs in place. General anesthesia was administered without difficulty. She was placed in the dorsal lithotomy position in [facility].An exam under anesthesia revealed the above noted findings. A surgical timeout was held with all team members in agreement. A straight catheterization was performed after betadine cleanse and urine test was negative. A transvaginal ultrasound was performed. Speculum was then placed and pap obtained. The patient was then prepped and draped in the usual sterile fashion. A speculum was inserted in the posterior aspect of the vagina. A single-tooth tenaculum was used tograsp the anterior lip of the cervix. The uterus was carefully sounded to 11 cm. The cervical os was sequentially dilated to accommodate the MyoSure hysteroscope using dilators up to size 19 Pulido. A MyoSure hysteroscope was introduced under direct visualization and the uterus was distended with normal saline. The aforementioned findings were noted. The hysteroscope was removed and a 360 degree sharp curettage was performed. The hysteroscope was re-introduced and further endometrial curettage was performed with the MyoSure Reach. All curettings were collected and sent for pathology. The hysteroscope was removed and hemostasis was adequate. A Mirena IUD was inserted to the fundus per pattern checker specifications. The strings were trimmed. The tenaculum was removed from the cervix and good hemostasis was noted at the puncture sites. The patient tolerated the procedure well. The sharps and sponge counts were correct times two. The patient was awakened from anesthesia and taken to the recovery room in stable condition. Fluid Deficit: 540cc normal saline Dr. Swain was present for the entire procedure without any conflicting clinical responsibilities. Surgical Infection Prevention Bundle Used? N/A Sarahi Mercedes MD PGY4 03/03/22 I was present and I participated during the entire procedure without conflicting responsibiities. Sabrina Swain MD documented in this encounter Plan of Treatment Upcoming Encounters Date Type Department Care Team (Late st Contact Info) Description 12/30/2023 2:45 PM EDT TH Visit (TeleHealth) [place] [address] Michael Morgan, [facility] [address] documented as of this encounter Goals Goal Patient Goal Type Associated Problems Recent Progress Patient-Stated? Author Other (Enter personal goal) Lifestyle On track( 023 1:14 PM EDT) Riddhi Buchanan RD Note: -Add peanut butter to oatmeal -Continue to add beans to meals as a source of protein and fiber -If can, buy fresh vegetables and fruit from [employer]-sent message with resources -Choose whole grain options [...] Note: Practice STOP and Urge Surfing. Health Hygiene Coordinator will send hand-outs. Movement Lifestyle On track( 023 1:14 PM EDT) Riddhi Buchanan RD Note: Continue to walk stairs and walks when can. Will continue using stairs as it's colder. Look into finding weights free online or at [employer]. Could use water-filled milk jugs as weights-a full gallon jug would be 8 lbs. Will look into nearby rec center 04/16/22 NATHALIA documented as of this encounter Procedures Procedure Name Priority Date/Time Associated Diagnosis Comments POCT GLUCOSE Routine 03/03/2022 10:45 AM EDT POCT GLUCOSE Routine 03/03/2022 10:10 AM EDT SPECIMEN TO PATHOLOGY Routine 03/03/2022 10:05 AM EDT SPECIMEN TO PATHOLOGY Routine 03/03/2022 9:50 AM EDT SPECIMEN TO PATHOLOGY Routine 03/03/2022 9:50 AM EDT SURGICAL PATHOLOGY REPORT Routine 03/03/2022 9:[address]/NG PCR Routine 03/03/2022 8:39 AM EDT HPV Routine 03/03/2022 8:39 AM EDT ALUMNI COORDINATOR CYTOLOGY INTERPRETATION Routine 03/03/2022 8:39 AM EDT ALUMNI COORDINATOR CYTOLOGY FINAL REPORT Routine 03/03/2022 8:39 AM EDT CYTOPATHOLOGY GYNECOLOGICAL Routine 03/03/2022 8:39 AM EDT Echography Transvaginal Non-Ob (74270) 03/03/2022 7:46 AM EDT Abnormal uterine bleeding Morbid obesity with BMI of 70 and over, adult Insert Intrauterine Device ([id number]) 03/03/2022 7:46 AM EDT Abnormal uterine bleeding Morbid obesity with BMI of 70 and over, adult CHG CYTOPATH,CERV/VAG,AUTO THIN LAYER,INTERP 03/03/2022 7:46 AM EDT Abnormal uterine bleeding Morbid obesity with BMI of 70 and over, adult Pelvic Examination W Anesth ([id number]) 03/03/2022 7:46 AM EDT Abnormal uterine bleeding Morbid obesity with BMI of 70 and over, adult Hysteroscopy, W/Endo Bx ([id number]) 03/03/2022 7:46 AM EDT Abnormal uterine bleeding Morbid obesity with BMI of 70 and over, adult POCT GLUCOSE Routine 03/03/2022 6:31 AM EDT ULTRASOUND, TRANSVAGINAL Routine 03/03/2022 6:01 AM EDT Abnormal uterine bleeding Morbid obesity with BMI of 70 and over, adult HYSTEROSCOPY, SURG W/ENDOMETRIAL SAMPLING, POLYPECTOMY Routine 03/03/2022 6:01 AM EDT Abnormal uterine bleeding Morbid obesity with BMI of 70 and over, adult INSERTION OF IUD, VAGINAL APPROACH Routine 03/03/2022 6:01 AM EDT Abnormal uterine bleeding Morbid obesity with BMI of 70 and over, adult PELVIC EXAM UNDER ANESTHESIA Routine 03/03/2022 6:01 AM EDT Abnormal uterine bleeding Morbid obesity with BMI of 70 and over, adult documented in this encounter Results * (ABNORMAL) POCT Glucose (03/03/2022 10:45 AM EDT) POC Glucose 239(H) 65 - 199 mg/dL [facility] Comment: Supplemental ranges: <140 mg/dL before meals <180 mg/dL all other times of the day Blood 03/03/2022 10:4 5 AM EDT 03/03/2022 10:45 AM EDT Sabrina Swain MD POINT OF CARE TEST O RDERABLES [facility] [place] [address] * (ABNORMAL) POCT Glucose (03/03/2022 10:10 AM EDT) POC Glucose 242(H) 65 - 199 mg/dL [facility] Comment: Supplemental ranges: <140 mg/dL before meals <180 mg/dL all other times of the day Blood 03/03/2022 10:1 0 AM EDT 03/03/2022 10:10 AM EDT Sabrina Swain MD POINT OF CARE TEST O JET Performing Organization Address [facility] Co de Phone Number [facility] [place] [address] * Specimen to Pathology (03/03/2022 10:05 AM EDT) AP Specimen 03/03/2022 10:0 5 AM EDT 03/03/2022 10:05 AM EDT Narrative [facility] - 03/03/2022 10:05 AM EDT Specimen requisition ordered. ??Separate Pathology report to follow Sabrina Swain MD PATHOLOGY/CYTOLOGY O RDBAN Performing Organization Address [facility] Co de Phone Number [facility] [place] [address] * Specimen to Pathology (03/03/2022 9:50 AM EDT) AP Specimen 03/03/2022 9:50 AM EDT 03/03/2022 9:50 AM EDT Narrative [facility] - 03/03/2022 9:50 AM EDT Specimen requisition ordered. ??Separate Pathology report to follow Sabrina Swain MD PATHOLOGY/CYTOLOGY O RDERAEDWARD Performing Organization Address [facility] Co de Phone Number [facility] [place] [address] * Specimen to Pathology (03/03/2022 9:50 AM EDT) AP Specimen 03/03/2022 9:50 AM EDT 03/03/2022 9:50 AM EDT Narrative [facility] - 03/03/2022 9:50 AM EDT Specimen requisition ordered. ??Separate Pathology report to follow Sabrina Swain MD PATHOLOGY/CYTOLOGY O JET [facility] [place] [address] * Surgical Pathology Report (03/03/2022 9:05 AM EDT) Surgical Pathology Report [id number] ? Location: [facility]; [facility]; A The signing pathologist has (i) examined the relevant preparation(s) for the specimen(s) and (ii) rendered or confirmed the diagnosis(es). . ?Surgical Pathology DIAGNOSIS A - Endometrial curettings: ??- Fragments of benign endometrium with marked progestin effect. ??- Chronic endometritis. ??- No evidence of hyperplasia or malignancy. B - Myosure curettings: ??- Fragments of benign endometrium with marked progestin effect. ??- Chronic endometritis. ??- No evidence of hyperplasia or malignancy. Electronically signed by: ?Lilian Wong DO Verified: ??03/10/2022 15:40 ??Pathologist Performed at: ??-[facility] Dept. of Pathology, [place], [place] SPECIMEN(S) SUBMITTED A - Endometrial curettings, excision (1) B - Myosure Curettings, excision (1) CLINICAL INFORMATION Abnormal uterine bleeding, BMI 70+. SPECIMEN PROCESSING A - Labeled/Fixativ e: Endometrial curettings, fresh. Quantity/Size: ??Fragments, 5.3 x 3.5 x 2.0 cm. Tissue Description: Aggregate of peralta-pink rubbery tissue fragments admixed with blood clot. Sections/Proces sing: Submitted en toto in 10 cassettes labeled A1-A10. B - Labeled/Fixativ e: Myosure curettings, formalin. Quantity/Size: ??Fragments, 5.0 x 3.1 x 1.0 cm. Tissue Description: Aggregate of peralta-pink tissue fragments admixed with blood clot.. Sections/Proces sing: The larger fragments are serially sectioned and the specimen is entirely submitted in 5 cassettes labeled B1-B5. ??jnr [facility] 03/03/2022 9:05 AM EDT Sabrina Swain MD PATHOLOGY/CYTOLOGY O JET Performing Organization Address [facility] de Phone Number [facility] [place] [address] * ALUMNI COORDINATOR Cytology Interpretation (03/03/2022 8:39 AM EDT) Dust Box Worker Cytology Interpretation [facility] Comment:Dust Box Worker Cytology Final R eport Dust Box Worker Cytology Comment Present [facility] Endocervical Component Present [facility] AP Specimen 03/03/2022 8:39 AM EDT 03/12/2022 11:33 AM EDT Sabrina Swain MD PATHOLOGY/CYTOLOGY O JET Performing Organization Address [facility] Co de Phone Number [facility] [place] [address] * Dust Box Worker Cytology Final Report (03/03/2022 8:39 AM EDT) Dust Box Worker Cytology Final Report [id number] ? Location: [facility]; [facility]; A The signing pathologist has (i) examined the relevant preparation(s) for the specimen(s) and (ii) rendered or confirmed the diagnosis(es). . ? Dust Box Worker Final DIAGNOSIS Normal Negative for intraepithelial lesion or malignancy (NILM). For consensus guidelines for the management of cervical cancer screening test results, please see: ?? [email or web address]://www.[email or web address].o rg . Electronically signed by: ?Alfredito JAYDA(ASCP)Sidra Verified: ??03/12/2022 11:33 ??Reticle Printer Performed at: ??-[facility] Dept. of Pathology, [facility] [place], [place] DISCUSSION Scant cellularity. Partially obscuring blood. HPV [...] Clinical Genomics and [employer] (CGAT) at [facility]. ? - Jeromy Kam, PhD, [facility], Director-[facility] STATEMENT OF ADEQUACY Specimen submitted is satisfactory. Endocervical component present. CLINICAL INFORMATION HPV Option: ?Concurrent HPV and Pap CT/NG Option: ?Yes Preparation: ? Liquid based Pap Specimen Source: ? Cervical/Endocervi qing LMP: ? Unknown Hysterectomy: ?No : ?No : ?No I.U.D.: ?No Pelvic Radiation: ?No Hist Abnl Pap/Biopsy: ?No Prior ALUMNI COORDINATOR Therapy: ? No . CLINICAL INFORMATION Hist of HPV Vaccine: ? No ICD Diagnosis: ? Z12.4 Encounter for screening for malignant neoplasm of cervix Clinical Data, Significant Therapy and Clinical Impression ?? : ?(not provided) Note: The Pap test is a screening test for cervical cancer with an inherent false-negative rate dependent upon several variables. For further information please contact the [facility] Laboratory. Reference: Paula CLEMENTS. Slicing Machine Feeder of Pap Smear Results. In: Aruna BS, Jorge Luis HH, ed. The Pap Smear. [place]: Alexander, 2002: 71-77. [facility] 03/03/2022 8:39 AM EDT Sabrina Swain MD PATHOLOGY/CYTOLOGY O RDERAEDWARD Performing Organization Address City/State/[facility] Co de Phone Number [facility] [place] [address] * HPV (03/03/2022 8:39 AM EDT) HPV 16 NEGATIVE NEGATIVE [facility] HPV 18 NEGATIVE NEGATIVE [facility] HPV Other HR NEGATIVE NEGATIVE [facility] HPV Interpretation See Comment [facility] Comment: NEGATIVE for high-risk HPV *. [...] Spec In Lab Sabrina Swain MD PATHOLOGY/CYTOLOGY Jeanna CHAUDHARY [facility] [place] [address] * CT/NG PCR (03/03/2022 8:39 AM EDT) Chlamydia Gene Amp Negative Negative [facility] Comment: This assay was performed in the [facility] Clinical [employer] Laboratory using the cristina CT/NG Test ([employer] The cristina CT/NG Test is an in vitro diagnostic test for the qualitative detection of Chlamydia trachomatis (CT) and/or Neisseria gonorrhoeae (NG) DNA in urogenital specimens. The Test utilizes the Polymerase Chain Reaction (PCR) for the detection of Chlamydia trachomatis and Neisseria gonorrhoeae DNA in cervical specimens collected in PreservCyt solution. This test is intended as an aid in the diagnosis of chlamydial and gonococcal disease in both symptomatic and asymptomatic individuals. Chlamydia Source Cervical [facility] GC Gene Amp Negative Negative [facility] Comment: This assay was performed in the [facility] Clinical Genomics and [employer] Laboratory using the cristina CT/NG Test ([employer] The cristina CT/NG Test is an in vitro diagnostic test for the qualitative detection of Chlamydia trachomatis (CT) and/or Neisseria gonorrhoeae (NG) DNA in urogenital specimens. The Test utilizes the Polymerase Chain Reaction (PCR) for the detection of Chlamydia trachomatis and Neisseria gonorrhoeae DNA in cervical specimens collected in PreservCyt solution. This test is intended as an aid in the diagnosis of chlamydial and gonococcal disease in both symptomatic and asymptomatic individuals. GC Source Cervical [facility] Cervical 03/03/2022 8:39 AM EDT 03/04/2022 1:34 PM EDT Narrative Resulting Agency Comment Spec In Lab Sabrina Swain MD MICROBIOLOGY - GENER AL ORDERABLES Performing Organization Address [facility] Co de Phone Number [facility] [place] [address] * Cytopathology Gynecological (03/03/2022 8:39 AM EDT) AP Specimen 03/03/2022 8:39 AM EDT 03/03/2022 8:39 AM EDT Narrative [facility] - 03/03/2022 8:39 AM EDT Specimen requisition ordered. ??Separate Pathology report to follow Sabrina Swain MD PATHOLOGY/CYTOLOGY O JET Performing Organization Address [facility] Co de Phone Number [facility] [place] [address] * (ABNORMAL) POCT Glucose (03/03/2022 6:31 AM EDT) POC Glucose 259(H) 65 - 199 mg/dL [facility] Comment: Supplemental ranges: <140 mg/dL before meals <180 mg/dL all other times of the day Blood 03/03/2022 6:31 AM EDT 03/03/2022 6:31 AM EDT Sabrina Swain MD POINT OF CARE TEST O JET Performing Organization Address [facility] Co de Phone Number [facility] [place] [address] documented in this encounter Visit Diagnoses Diagnosis Abnormal uterine bleeding Unspecified disorder of menstruation and other abnormal bleeding from female genital tract Morbid obesity with BMI of 70 and over, adult Morbid obesity Difficult intubation Other specified conditions influencing health status documented in this encounter Administered Medications Inactive Administered Medications - up to 3 most recent administrations Medication Order MAR Action Action Date Dose Rate Site acetaminophen (Tylenol) tablet 1,000 mg 1,000 mg, Oral, ONCE, 1 dose, On Wed03/03/22 at 0700, Administer with SIP of H2O only. Maximum dose of acetaminophen is 4,000 mg from all sources in 24 hours., Day of Surgery (Day of Procedure), Routine Given 03/03/2022 6:50 AM EDT 1,000 mg fentaNYL (pf) (50 mcg/mL) multi-dose injection 12.5 mcg 12.5 mcg, Intravenous, EVERY 5 MIN PRN, Starting on Wed03/03/22 at 1026, Until Wed03/03/22 at 1413, Pain, Mild to moderate pain (1-5 out of 10), Hold for respiratory rate less than 10 per minute. Maximum dose 200 mcg over one hour, including OR administration. If ordered with HYDROmorphone or morphine, give HYDROmorphone or morphine first and use fentaNYL for breakthrough pain., PACU Recovery, Routine fentaNYL (pf) (50 mcg/mL) multi-dose injection 25 mcg 25 mcg, Intravenous, EVERY 5 MIN PRN, Starting on Wed03/03/22 at 1026, Until Wed03/03/22 at 1413, Pain, Moderate to severe pain (6-10 out of 10), Hold for respiratory rate less than 10 per minute. Maximum dose 200 mcg over one hour, including OR administration. If ordered with HYDROmorphone or morphine, give HYDROmorphone or morphine first and use fentaNYL for breakthrough pain., PACU Recovery, Routine HYDROmorphone (Dilaudid) (0.2 mg/1 mL) injection syringe 0.2 mg 0.2 mg, Intravenous, EVERY 10 MIN PRN, Starting on Wed03/03/22 at 1026, Until Wed03/03/22 at 1413, Pain, For Mild to Moderate Pain (1-5 out of 10), Hold for respiratory rate less than 10 per minute. Maximum dose 3 mg over one hour including administrations in the OR. If multiple pain medications are ordered, start with HYDROmorphone or morphine and use fentaNYL for breakthrough pain, PACU Recovery, Routine HYDROmorphone (Dilaudid) (0.2 mg/1 mL) injection syringe 0.4 mg 0.4 mg, Intravenous, EVERY 10 MIN PRN, Starting on Wed03/03/22 at 1026, Until Wed03/03/22 at 1413, Pain, For Moderate to Severe Pain (6-10 out of 10), Hold for respiratory rate less than 10 per minute. Maximum dose 3 mg over one hour including administrations in the OR. If multiple pain medications are ordered, start with HYDROmorphone or morphine and use fentaNYL for breakthrough pain, PACU Recovery, Routine insulin regular (HumuLIN R,NovoLIN R) (100 unit/mL) injection vial 4 Units 4 Units, Subcutaneous, ONCE, 1 dose, On Wed03/03/22 at 0715, Day of Surgery (Day of Procedure), Routine Given 03/03/2022 7:01 AM EDT 4 Units lactated ringers infusion 1,000 mL, at 100 mL/hr, Intravenous, CONTINUOUS, Starting on Wed03/03/22 at 0700, Until Wed03/03/22 at 1413, Day of Surgery (Day of Procedure) New Bag 03/03/2022 7:47 AM EDT lidocaine (Xylocaine) 1% (10 mg/mL) injection 3 mg 3 mg (0.3 mL), Subcutaneous, ONCE PRN, 1 dose, Starting on Wed03/03/22 at 0640, Until Wed03/03/22 at 1413, for discomfort with PIV insertion, Day of Surgery (Day of Procedure), Routine naloxone (Narcan) (0.4 mg/mL) injection 0.04 mg 0.04 mg, Intravenous, EVERY 5 MIN PRN, 3 doses, Starting on Wed03/03/22 at 1026, Until Wed03/03/22 at 1413, Opioid Reversal, for respiratory rate less than 6 or unresponsive., May repeat every 5 minutes to increase respiratory rate. DO NOT exceed 0.12 mg total dose. Notify anesthesia immediately if administered., PACU Recovery, Routine prochlorperazine (Compazine) (5 mg/mL) injection 5 mg 5 mg, Intravenous, EVERY 30 MIN PRN, 2 doses, Starting on Wed03/03/22 at 1026, Until Wed03/03/22 at 1413, Nausea, Maximum total dose of 10 mg (including OR administration). If multiple antiemetics ordered, use ondansetron first and if ineffective use prochlorperazine second and if ineffective use promethazine, PACU Recovery, Routine promethazine (Phenergan) (25 mg/mL) injection 6.25 mg 6.25 mg, Intravenous, EVERY 30 MIN PRN, Nausea, Starting on Wed03/03/22 at 1026, 2 doses, Until Wed03/03/22 at 1413, Maximum total dose of 12.5 mg (including OR administration). VESICANT - Dilute with a minimum of 10 mL sodium chloride 0.9%. LARGE VEIN only. Inject over 10 minutes into the farthest port of a running IV infusion. Remain with the patient and STOP infusion immediately if patient reports burning. Avoid extravasation. If multiple antiemetics are ordered, use ondansetron first and if ineffective use prochlorperazine second and if ineffective use promethazine., PACU Recovery sodium chloride 0.9 % (flush) (BD PosiFlush Normal Saline 0.9) flush 5-20 mL 5-20 mL, Intravenous, EVERY 1 MIN PRN, Starting on Wed03/03/22 at 0640, Until Wed03/03/22 at 1413, flush, Flush pertains to all indwelling lines. Flush per protocol found in the job aid using the link provided on this medication record., Day of Surgery (Day of Procedure), Routine documented in this encounter Active and Recently Administered Medications Times are shown in EDT. Scheduled Medication Order 03/01/2022 03/02/2022 03/03/2022 acetaminophen (Tylenol) tablet 1,000 mg (COMPLETED) 1,000 mg, Oral, ONCE, 1 dose, On Wed03/03/22 at 0700, Administer with SIP of H2O only. Maximum dose of acetaminophen is 4,000 mg from all sources in 24 hours., Day of Surgery (Day of Procedure), Routine 0650 (Given - Provid er: Danelle Morris RN) ibuprofen (Advil) tablet 600 mg 600 mg, Oral, EVERY 6 HOURS SCHEDULED, First dose on Wed03/04/22 at 0000, Until Discontinued, Begin after the Ketorolac is discontinued, Routine insulin regular (HumuLIN R,NovoLIN R) (100 unit/mL) injection vial 4 Units (COMPLETED) 4 Units, Subcutaneous, ONCE, 1 dose, On Wed03/03/22 at 0715, Day of Surgery (Day of Procedure), Routine 0701 (Given - Provid er: Danelle Morris RN) Continuous Medication Order 03/01/2022 03/02/2022 03/03/2022 lactated ringers infusion 1,000 mL, at 100 mL/hr, Intravenous, CONTINUOUS, Starting on Wed03/03/22 at 0700, Until Wed03/03/22 at 1413, Day of Surgery (Day of Procedure) 0747 (New Bag - Prov ider: Fan Durham MD)0917 (Anesthesia Volume Adjustment - Provider: Fan Durham MD) PRN Medication Order 03/01/2022 03/02/2022 03/03/2022 acetaminophen (Tylenol) tablet 650 mg 650 mg, Oral, EVERY 6 HOURS PRN, Starting on Wed03/03/22 at 1010, Until Wed03/03/22 at 1413, Pain, If multiple pain medications ordered, use acetaminophen first. Maximum dose of acetaminophen is 4000 mg from all sources in 24 hours. When ordered for pain, acetaminophen should be given even when other ordered pain medications are indicated., Routine fentaNYL (pf) (50 mcg/mL) multi-dose injection 12.5 mcg(Linked Group 1) 12.5 mcg, Intravenous, EVERY 5 MIN PRN, Starting on Wed03/03/22 at 1026, Until Wed03/03/22 at 1413, Pain, Mild to moderate pain (1-5 out of 10), Hold for respiratory rate less than 10 per minute. Maximum dose 200 mcg over one hour, including OR administration. If ordered with HYDROmorphone or morphine, give HYDROmorphone or morphine first and use fentaNYL for breakthrough pain., PACU Recovery, Routine fentaNYL (pf) (50 mcg/mL) multi-dose injection 25 mcg(Linked Group 1) 25 mcg, Intravenous, EVERY 5 MIN PRN, Starting on Wed03/03/22 at 1026, Until Wed03/03/22 at 1413, Pain, Moderate to severe pain (6-10 out of 10), Hold for respiratory rate less than 10 per minute. Maximum dose 200 mcg over one hour, including OR administration. If ordered with HYDROmorphone or morphine, give HYDROmorphone or morphine first and use fentaNYL for breakthrough pain., PACU Recovery, Routine HYDROmorphone (Dilaudid) (0.2 mg/1 mL) injection syringe 0.2 mg(Linked Group 2) 0.2 mg, Intravenous, EVERY 10 MIN PRN, Starting on Wed03/03/22 at 1026, Until Wed03/03/22 at 1413, Pain, For Mild to Moderate Pain (1-5 out of 10), Hold for respiratory rate less than 10 per minute. Maximum dose 3 mg over one hour including administrations in the OR. If multiple pain medications are ordered, start with HYDROmorphone or morphine and use fentaNYL for breakthrough pain, PACU Recovery, Routine HYDROmorphone (Dilaudid) (0.2 mg/1 mL) injection syringe 0.4 mg(Linked Group 2) 0.4 mg, Intravenous, EVERY 10 MIN PRN, Starting on Wed03/03/22 at 1026, Until Wed03/03/22 at 1413, Pain, For Moderate to Severe Pain (6-10 out of 10), Hold for respiratory rate less than 10 per minute. Maximum dose 3 mg over one hour including administrations in the OR. If multiple pain medications are ordered, start with HYDROmorphone or morphine and use fentaNYL for breakthrough pain, PACU Recovery, Routine lidocaine (Xylocaine) 1% (10 mg/mL) injection 3 mg 3 mg (0.3 mL), Subcutaneous, ONCE PRN, 1 dose, Starting on Wed03/03/22 at 0640, Until Wed03/03/22 at 1413, for discomfort with PIV insertion, Day of Surgery (Day of Procedure), Routine naloxone (Narcan) (0.4 mg/mL) injection 0.04 mg 0.04 mg, Intravenous, EVERY 5 MIN PRN, 3 doses, Starting on Wed03/03/22 at 1026, Until Wed03/03/22 at 1413, Opioid Reversal, for respiratory rate less than 6 or unresponsive., May repeat every 5 minutes to increase respiratory rate. DO NOT exceed 0.12 mg total dose. Notify anesthesia immediately if administered., PACU Recovery, Routine prochlorperazine (Compazine) (5 mg/mL) injection 5 mg 5 mg, Intravenous, EVERY 30 MIN PRN, 2 doses, Starting on Wed03/03/22 at 1026, Until Wed03/03/22 at 1413, Nausea, Maximum total dose of 10 mg (including OR administration). If multiple antiemetics ordered, use ondansetron first and if ineffective use prochlorperazine second and if ineffective use promethazine, PACU Recovery, Routine promethazine (Phenergan) (25 mg/mL) injection 6.25 mg 6.25 mg, Intravenous, EVERY 30 MIN PRN, Nausea, Starting on Wed03/03/22 at 1026, 2 doses, Until Wed03/03/22 at 1413, Maximum total dose of 12.5 mg (including OR administration). VESICANT - Dilute with a minimum of 10 mL sodium chloride 0.9%. LARGE VEIN only. Inject over 10 minutes into the farthest port of a running IV infusion. Remain with the patient and STOP infusion immediately if patient reports burning. Avoid extravasation. If multiple antiemetics are ordered, use ondansetron first and if ineffective use prochlorperazine second and if ineffective use promethazine., PACU Recovery sodium chloride 0.9 % (flush) (BD PosiFlush Normal Saline 0.9) flush 5-20 mL 5-20 mL, Intravenous, EVERY 1 MIN PRN, Starting on Wed03/03/22 at 0640, Until Wed03/03/22 at 1413, flush, Flush pertains to all indwelling lines. Flush per protocol found in the job aid using the link provided on this medication record., Day of Surgery (Day of Procedure), Routine Linked Groups Order Group 1: fentaNYL (pf) (50 mcg/mL) multi-dose injection 12.5 mcgJump to med 12.5 mcg, Intravenous, EVERY 5 MIN PRN, Starting on Wed03/03/22 at 1026, Until Wed03/03/22 at 1413, Pain, Mild to moderate pain (1-5 out of 10), Hold for respiratory rate less than 10 per minute. Maximum dose 200 mcg over one hour, including OR administration. If ordered with HYDROmorphone or morphine, give HYDROmorphone or morphine first and use fentaNYL for breakthrough pain., PACU Recovery, Routine Or fentaNYL (pf) (50 mcg/mL) multi-dose injection 25 mcgJump to med 25 mcg, Intravenous, EVERY 5 MIN PRN, Starting on Wed03/03/22 at 1026, Until Wed03/03/22 at 1413, Pain, Moderate to severe pain (6-10 out of 10), Hold for respiratory rate less than 10 per minute. Maximum dose 200 mcg over one hour, including OR administration. If ordered with HYDROmorphone or morphine, give HYDROmorphone or morphine first and use fentaNYL for breakthrough pain., PACU Recovery, Routine Group 2: HYDROmorphone (Dilaudid) (0.2 mg/1 mL) injection syringe 0.2 mgJump to med 0.2 mg, Intravenous, EVERY 10 MIN PRN, Starting on Wed03/03/22 at 1026, Until Wed03/03/22 at 1413, Pain, For Mild to Moderate Pain (1-5 out of 10), Hold for respiratory rate less than 10 per minute. Maximum dose 3 mg over one hour including administrations in the OR. If multiple pain medications are ordered, start with HYDROmorphone or morphine and use fentaNYL for breakthrough pain, PACU Recovery, Routine Or HYDROmorphone (Dilaudid) (0.2 mg/1 mL) injection syringe 0.4 mgJump to med 0.4 mg, Intravenous, EVERY 10 MIN PRN, Starting on Wed03/03/22 at 1026, Until Wed03/03/22 at 1413, Pain, For Moderate to Severe Pain (6-10 out of 10), Hold for respiratory rate less than 10 per minute. Maximum dose 3 mg over one hour including administrations in the OR. If multiple pain medications are ordered, start with HYDROmorphone or morphine and use fentaNYL for breakthrough pain, PACU Recovery, Routine documented in this encounter Care Teams Branch Manager Trainee Relationship Specialty Start Date End Date Lia Pearson APR[place] [address] PCP - General Geriatric Medicine 02/09/22 documented as of this encounter
--- OUTSIDE RECORDS SUMMARY | 2023-11-26 19:32 | XMS_ITS | Encounter Summary ---
Author Organization Formerly [facility] [place] [address] Care Team Providers Care Payroll Lead Name Role Phone Lia Pearson APRN Primary Care Provider [phone] Reason for Visit * Reason Onset Date Comments Medication Refill 01/13/2022 Encounter Details Date Type Department Care Team (Late st Contact Info) Description 01/13/2022 Refill Obstetrics [place] [phone] Sabrina Swain MD [facility] DR OBSTETRICS [place] [address] Social History Tobacco Use Types Packs/Day Years [...] EDT TH Visit (TeleHealth) [place] [phone] Michael Morgan DO [facility] [place] [address] documented as of this encounter Goals Goal Patient Goal Type Associated Problems Recent Progress Patient-Stated? Author Other (Enter personal goal) Lifestyle On track( 023 1:14 PM EDT) Riddhi Buchanan RD Note: -Add peanut butter to oatmeal -Continue to add beans to meals as a source of protein and fiber -If can, buy fresh vegetables and fruit from [employer]-sent message with resources -Choose whole grain [...] water or using a child's sippie cup documented as of this encounter Visit Diagnoses Not on filedocumented in this encounter Care Teams Payroll Lead Relationship Specialty Start Date End Date Lia Pearson [place] [address] PCP - General Geriatric Medicine 10/15/21 01/26/22 documented as of this encounter
--- OUTSIDE RECORDS SUMMARY | 2023-11-26 19:32 | XMS_ITS | Encounter Summary ---
[place] [address] Care Team Providers Care Substation Inspector Name Role Phone Lia Pearson APRN Primary Care Provider [phone] Encounter Details Date Type Department Care Team (Late st Contact Info) Description 01/07/2022 11:59 PM EDT Anesthesia [place] [address] Trinity Dumont MD [facility] [place] [address] Anesthesia Record Procedure Summary Procedure Name Responsible Anesthesiologist Anesthesia Start Time Anesthesia Stop Time OFFICE VISIT Events No events on file. [...] Preprocedure Evaluation - Trinity Dumont MD - 01/06/2022 2:05 PM EDT Pre-Anesthesia Evaluation for: Zenia Worley a 31 y.o. female. Patient Active Problem List Diagnosis Date Noted ??? Insomnia 12/19/2021 ??? Essential hypertension, benign 09/26/2021 ??? Long-term insulin use 09/26/2021 ??? 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 Mixed hyperlipidemia 02/26/2021 ??? [place] (obstructive sleep apnea) 02/26/2021 ??? Other specified hypothyroidism 02/26/2021 ??? PTSD (post-traumatic stress disorder) 02/26/2021 ??? Schizoaffective disorder 02/26/2021 ??? Type 2 diabetes mellitus with hyperglycemia, with long-term current use of insulin 02/26/2021 Past Medical History: Diagnosis Date ??? 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 Social History Tobacco Use ??? Smoking status: Former Smoker ??? Smokeless tobacco: Never Used Substance Use Topics ??? Alcohol use: Not Currently Social History Substance and Sexual Activity Drug Use Never Allergies Allergen Reactions ??? Fluoxetine Affected glucose level Medications: MAR and/or home medications have been reviewed. Physical Exam: Preprocedure Vitals Current as of 01/06/22 1405 No BP, pulse, respiration, SpO2, or temperature recorded. Height: Weight: BMI: IBW: Anesthesia Physical Exam Last Filed Perioperative Cognitive Screening None Anesthesia Plan Anesthesia Screening Note: Hx of Anesthesia Problem: Per surgical note: would like anesthesia consult because of history of aspiration pneumonia, asking about sleep apnea, anesthesia, intubation Screening Visit Type: Interviewed in person Findings, Assessment and Plan: 31 y.o. female scheduled for EUA, pap, pelvic US, hysterosocpy, D&C, possible polypectomy, MIUD insertion. Referred to P[facility] for: - per surgical note: would like anesthesia consult because of history of aspiration pneumonia, asking about sleep apnea, anesthesia, intubation PMH: - DMII (insulin, semaglutide, metformin) - HTN (on losartan) - hypothyroidism on levothyroxine - Panic attacks, PTSD, schizoaffective disorder (on Aripiprazole, prazosin ziprasidone) - Chronic pain on gabapentin Relevant PSH: Anesthetic/Airway Hx: Functional Capacity: DASI, METs ASSESSMENT: - Anesthesia Considerations - Discussion points with patients, patient engagement Follow-Up Items: Trinity Dumont MD 01/06/2022 Perioperative Care Clinic phone extension: [phone] documented in this encounter Plan of Treatment Upcoming Encounters Date Type Department Care Team (Late st Contact Info) Description 12/30/2023 2:45 PM EDT TH Visit (TeleHealth) [place] [address] Michael Morgan, [facility] [place] [address] documented as of this encounter Goals Goal Patient Goal Type Associated Problems Recent Progress Patient-Stated? Author Other (Enter personal goal) Lifestyle On track( 023 1:14 PM EDT) No Riddhi Wilson RD Note: -Add peanut butter to oatmeal -Continue to add beans to meals as a source of protein and fiber -If can, buy fresh vegetables and fruit from [employer]-sent message with resources -Choose whole grain options [...] on filedocumented in this encounter Care Teams Substation Inspector Relationship Specialty Start Date End Date Lia Pearson APRN [address] [place] [address] PCP - General Geriatric Medicine 10/15/21 01/26/22 documented as of this encounter
--- OUTSIDE RECORDS SUMMARY | 2023-11-26 19:32 | XMS_ITS | Encounter Summary ---
Author Organization Formerly [facility] [place] [address] Care Team Providers Care Upper And Bottom Lacer Hand Name Role Phone Lia Pearson APRN Primary Care Provider [phone] Encounter Details Date Type Department Care Team (Late st Contact Info) Description 01/09/2022 Orders Only Weight and Wellness at [address] [address] Jenni Waller MD [facility] [address] [facility] [place] [address] Type 2 diabetes mellitus with hyperglycemia, with [...] EDT TH Visit (TeleHealth) [place] [address] Michael Morgan, [facility] [place] [address] documented as of this encounter Goals Goal [...] as of this encounter Visit Diagnoses Diagnosis Type 2 diabetes mellitus with hyperglycemia, with long-term current use of insulin documented in this encounter Care Teams Upper And Bottom Lacer Hand Relationship Specialty Start Date End Date Lia Pearson APRN [address] [place] [address] PCP - General Geriatric Medicine 10/15/21 01/26/22 documented as of this encounter
--- OUTSIDE RECORDS SUMMARY | 2023-11-26 19:32 | XMS_ITS | Encounter Summary ---
Author Organization [facility] [place] [address] Care Team Providers Care Health Care Recruiter Name Role Phone Lia Pearson JULIO C Primary Care Provider [phone] Encounter Details Date Type Department Care Team (Late st Contact Info) Description 01/15/2022 Orders Only Obstetrics [place] [phone] Katie Lemon V [facility] OBSTETRICS [place] [address] Social History Tobacco Use Types Packs/Day Years [...] EDT TH Visit (TeleHealth) [place] [phone] Michael Morgan, [facility] [place] [address] documented as of this encounter Goals Goal [...] on filedocumented in this encounter Care Teams Health Care Recruiter Relationship Specialty Start Date End Date Lia Pearson APRN [address] [place] [address] PCP - General Geriatric Medicine 10/15/21 01/26/22 documented as of this encounter
--- OUTSIDE RECORDS SUMMARY | 2023-11-26 19:32 | XMS_ITS | Encounter Summary ---
Author Organization [facility] [place] [address] Care Team Providers Care Chair Car Driver Name Role Phone Lia Pearson JULIO C Primary Care Provider [phone] Encounter Details Date Type Department Care Team (Late st Contact Info) Description 05/05/2022 Orders Only Obstetrics [place] [phone] Miriam Treadwell COMPONENT INSPECTOR [facility] OBSTETRICS & [place] [address] Abnormal uterine bleeding (AUB) Social History Tobacco [...] EDT TH Visit (TeleHealth) Interventional [place] [phone] Michael Morgan, [facility] [place] [address] documented as of this encounter Goals Goal Patient Goal Type Associated Problems Recent Progress Patient-Stated? Author Other (Enter personal goal) Lifestyle On track( 1:14 PM EDT) Riddhi Buchanan RD Note: -Add peanut butter to oatmeal -Continue to add beans to meals as a source of protein and fiber -If can, buy fresh vegetables and fruit from [employer]-sent message with resources -Choose whole grain [...] Note: Practice STOP and Urge Surfing. Health Country Sales Manager will send hand-outs. Movement Lifestyle On track( 1:14 PM EDT) Riddhi Buchanan RD Note: Continue to walk stairs and walks when can. Will continue using stairs as it's colder. Look into finding weights free online or at [employer] stores. Could use water-filled milk jugs as weights-a full gallon jug would be 8 lbs. Will look into nearby [facility] 12/1/22 documented as of this encounter Visit Diagnoses Diagnosis Abnormal uterine bleeding (AUB) documented in this encounter Care Teams Chair Car Driver Relationship Specialty Start Date End Date Lia Pearson APRN [address] [place] [address] PCP - General Geriatric Medicine 02/09/22 documented as of this encounter
--- OUTSIDE RECORDS SUMMARY | 2023-11-26 19:32 | XMS_ITS | Encounter Summary ---
[place] [address] Care Team Providers Care Basket Mender Name Role Phone Lia Pearson APRN Primary Care Provider [phone] Encounter Details Date Type Department Care Team (Late st Contact Info) Description 02/23/2022 2:00 PM EDT [place] [phone] Social History Tobacco Use Types Packs/Day Years [...] Sign Reading Time Taken Comments Blood Pressure 129/87 02/23/2022 1:55 PM EDT Pulse 123 02/23/2022 1:55 PM EDT Temperature - - Respiratory Rate 20 02/23/2022 1:55 PM EDT Oxygen Saturation 97% 02/23/2022 1:55 PM EDT Inhaled Oxygen Concentration - - Weight 191.4 kg (422 lb) 02/23/2022 1:13 PM EDT Height 165.1 cm (5' 5) 02/23/2022 1:13 PM EDT Body Mass Index 70.22 02/23/2022 1:13 PM EDT documented in this encounter Plan of Treatment Upcoming Encounters Date Type Department Care Team (Late st Contact Info) Description 12/30/2023 2:45 PM EDT TH Visit (TeleHealth) [place] [address] Michael Morgan, [facility] [place] [address] documented as of this encounter Goals Goal Patient Goal Type Associated Problems Recent Progress Patient-Stated? Author Other (Enter personal goal) Lifestyle On track( 1:14 PM EDT) Riddhi Buchanan RD Note: -Add peanut butter to oatmeal -Continue to add beans to meals as a source of protein and fiber -If can, buy fresh vegetables and fruit from [employer]-sent message with resources -Choose whole grain [...] Note: Practice STOP and Urge Surfing. Health Train Brakeman will send hand-outs. Movement Lifestyle On track( 023 1:14 PM EDT) Riddhi Buhcanan RD Note: Continue to walk stairs and walks when can. Will continue using stairs as it's colder. Look into finding weights free online or at [employer] stores. Could use water-filled milk jugs as weights-a full gallon jug would be 8 lbs. [facility] into [facility] 04/16/22 NATHALIA documented as of this encounter Visit Diagnoses Not on filedocumented in this encounter Care Teams Basket Mender Relationship Specialty Start Date End Date Lia Pearson APRN [address] [place] [address] PCP - General Geriatric Medicine 02/09/22 documented as of this encounter
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
--- OUTSIDE RECORDS SUMMARY | 2023-11-26 19:32 | XMS_ITS | Encounter Summary ---
Author Organization [facility] [place] [address] Care Team Providers Care Jumpbasting Collar Baster Name Role Phone Lia Pearson APRN Primary Care Provider [phone] Encounter Details Date Type Department Care Team (Late st Contact Info) Description 02/18/2022 Orders Only Weight and Wellness at [address] [address] Jenni Waller MD [facility] DR [facility] [place] [address] Vitamin D deficiency Social History Tobacco Use [...] EDT TH Visit (TeleHealth) [place] [id number] Michael Morgan [facility] [place] [address] documented as of this encounter Goals Goal Patient Goal Type Associated Problems Recent Progress Patient-Stated? Author Other (Enter personal goal) Lifestyle On track( 1:14 PM EDT) Riddhi Buchanan RD Note: -Add peanut butter to oatmeal -Continue to add beans to meals as a source of protein and fiber -If can, buy fresh vegetables and fruit from [employer] market-sent message with resources -Choose whole grain [...] Note: Practice STOP and Urge Surfing. Health Acoustic Engineer will send hand-outs. Movement Lifestyle On track( 1:14 PM EDT) Riddhi Buchanan RD Note: Continue to walk stairs and walks when can. Will continue using stairs as it's colder. Look into finding weights free online or at [email or web address] stores. Could use water-filled milk jugs as weights-a full gallon jug would be 8 lbs. Will look into nearby [facility] 04/16/22 documented as of this encounter Visit Diagnoses Diagnosis Vitamin D deficiency Unspecified vitamin D deficiency documented in this encounter Care Teams Jumpbasting Collar Baster Relationship Specialty Start Date End Date Lia Pearson APRN [address] [place] [address] PCP - General Geriatric Medicine 02/09/22 documented as of this encounter
--- OUTSIDE RECORDS SUMMARY | 2023-11-26 19:32 | XMS_ITS | Encounter Summary ---
[place] [address] Care Team Providers Care Teasel Setter Name Role Phone Lia Pearson APRN Primary Care Provider [phone] Reason for Visit * Consultation (Routine) - Closed Specialty Diagnoses / Procedures Referred By Della kern Referred To Contact Podiatry Diagnoses Type 2 diabetes mellitus without complication, unspecified whether intermediate insulin use Lia Pearson APRN [address] [place] [address] [facility] [place] [address] Referral ID Status Reason Start Date Expiration Date V isits Requested Visits Authorized [id number] Closed Consult, Test & Treat PCP Updated and/or Approved 10/24/2021 10/24/2022 6 6 Encounter Details Date Type Department Care Team (Late st Contact Info) Description 01/07/2022 3:00 PM EDT Office [place] [address] [place] [address] Type 2 diabetes mellitus with hyperglycemia, with long-term current use of insulin; Onychauxis; Callus of heel Social History Tobacco Use Types Packs/Day Years Used Date Smoking Tobacco: Former Smokeless Tobacco: Never Alcohol Use Standard Drinks/Week Comments Not Currently 0 (1 standard drink = 0.6 oz pur e alcohol) Sex and Gender Information Value Date Recorded Sex Assigned at Not on file Gender Identity Not on file Sexual Orientation Not on file documented as of this encounter Progress Notes * Omid Angeles DPM - 01/07/2022 3:00 PM EDT Outpatient Podiatry Clinic Note Name: Zenia Worley Age:31 y.o. MR#: [id number] Date of Service: 01/07/2022 SUBJECTIVE: Zenia Worley is a very pleasant 31 y.o. female diabetic with history of longstanding type 2 diabetes who presents to the clinic today for evaluation and diabetic foot exam. Relates thickened, elongated toenails with difficulty to manage/trim causing discomfort. She also has thickened callused skin on the posterior aspect of both heels as she cannot take care of herself. Her blood sugars in the past have been poorly controlled with hemoglobin A1c over 14 but most recently this valuehas come down to 6.2 which is a wonderful improvement for her. She has been diabetic for approximately 10 years and has decided now to get serious about taking care of her blood sugars which is great. She is not able to take care of her thickened toenails and callus on both feet and she needs a regular diabetic foot evaluation today and it is my pleasure seeing her today. Allergies Allergen Reactions ??? Fluoxetine Affected glucose level Past Medical History: Diagnosis Date ??? 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 Marital status: Single Spouse name: Not on file ??? Number of children: Not on file ??? Years of education: Not on file ??? Highest education level: Not on file Occupational History ??? Not on file Tobacco Use ??? Smoking status: Former Smoker [...] Hobbies? Not really right now. Came to [place] from [place] to work at [employer] transition - took one year to find housing. Not working due diabetic retinopathy. Social Determinants of Health Financial Resource Strain: Not on file Food Insecurity: Not on file Transportation Needs: Not on file Physical Activity: Not on file Housing Stability: Not on file Family History Problem Relation Age of Onset ??? Uterine Cancer Neg Hx ??? Ovarian Cancer Neg Hx ??? Breast Cancer Neg Hx Current Outpatient Medications on File Prior to Visit Medication Sig Dispense Refill ??? semaglutide (Ozempic) 1 mg/dose (4 mg/3 mL) Pen Injector Inject 1 mg subcutaneously once a weekfor 4 doses. 3 mL 3 ??? gabapentin (Neurontin) 300 mg Capsule Take 1 capsule by mouth 2 times daily. 90 capsule ??? ARIPiprazole (Abilify) 15 mg Tablet 15 mg Daily. ??? cyanocobalamin, vitamin B-12, 500 mcg Tablet [...] Units subcutaneously 3 times daily (before meals). ??? Lantus Solostar U-100 Insulin 100 unit/mL (3 mL) pen INJECT 12 UNITS INTO THE SKIN ONCE DAILY AND THEN INJECT 13 UNITS AT BEDTIME ??? levothyroxine (Synthroid) 200 mcg Tablet Take 200 mcg by mouth Daily. ??? losartan (Cozaar) 25 mg Tablet Take 25 mg by mouth daily. ??? metFORMIN XR (Glucophage XR) 500 mg Tablet Sustained Release 24 hr Take 1,000 mg by mouth 2 times daily. ??? metoprolol succinate XL (Toprol-XL) 50 mg Tablet Sustained Release 24 hr ??? BD AutoShield Duo Pen Needle 30 gauge x 07/30 Needle USE UP TO 5 PEN NEEDLES DAILY ??? polyethylene glycoL (Miralax) 17 gram/dose Powder Take 17 g by mouth Daily. ??? prazosin (Minipress) 5 mg Capsule TAKE ONE CAPSULE BY MOUTH AT BEDTIME; MAY TAKE ONE NEEDED FOR ANXIETY ??? rosuvastatin (Crestor) 40 mg Tablet Take 1 tablet by mouth nightly. ??? ziprasidone (GEODON) 60 mg Capsule Take 60 mg by mouth 2 times daily (with meals). ??? norethindrone (Aygestin) 5 mg Tablet Take 1 tablet by mouth daily. (Patient taking differently:Take 5 mg by mouth 2 times daily.) 90 tablet 3 No current facility-administered medications on file prior to visit. ROS: MSK: Skin: +toenail changes on both callus tissue on her heels Neuro: Relates some numbness in her feet but not severe Per HPI OBJECTIVE: GEN: Patient is AAOX3, NAD. Seen sitting up comfortably. DERM: Skin atrophic, intact and xerotic with no open lesions appreciated bilaterally. No ulcerations, fissures, drainage, or blisters bilaterally. No evidence of acute infection bilaterally. Interspaces 1-4 bilaterally dry and clear with no signs of fungal or bacterial infection. Nails 1-10 thickened and dystrophic with subungual debris noted and no signs of acute infection. No erythema or proximal streaking. No drainage or purulence. No fluctuance. Hyperkeratotic lesions noted encompassing theposterior aspect of both heels more significantly thickened on the left side. These are not open lesions or infected. VASC: Decreased hair growth noted bilaterally. Dorsalis pedis + 2/4 bilaterally and posterior tibial pulse + 2/4 bilaterally. Capillary refill less than 3 seconds. No edema noted. No varicose veins. No claudication, no rest pain, no calf pain. No color changes associated with vascular disease. NEURO: Epicritic sensation intact to light touch bilaterally. Rogers Isidra 5.07 monofilament testing 10/10 bilaterally. No evidence of sensory loss at this time. MSK: No significant areas of musculoskeletal pain or deformity. She does have a flattened longitudinal arch bilateral which is chronic for her. ASSESSMENT: Diabetes Mellitus Type 2 currently well controlled with most recent hemoglobin A1c at 6.2 Onychomycosis/Onychauxis/Onychocryptosis bilaterally causing discomfort--uninfected Pre-ulcerative foot callus secondary to pressure posterior aspect of both heels PLAN: Patient seen and evaluated. Educated patient on condition and treatment options. Counseling provided on diabetic foot care and peripheral neuropathy. Explained to patient risks of developing wounds, infections, and other complications in feet. Daily foot inspection and moisturization advised. Extensive debridement of thick, dystrophic nails x 10 performed without incident using sterile nailnippers/power brenda. Patient tolerated well and without complications. Mechanically debrided pre-ulcerative foot callus without incident using sterile rotary bur type instrument. Patient tolerated well and without complications. Discussed importance of strict glucose control with the patient. Recommended wide supportive shoe gear. Avoid barefoot ambulation. Follow up with PCP regularly for continued DM management. Advised anannual foot exam and periodic nail care on a regular basis. Advised patient to seek prompt medical care if any worsening or changes noted. Answered all questions. Patient verbalized understanding of all instructions FOLLOW UP: 12 months or sooner if any concerns arise. Because of the patient's history of diabetes and decreased sensation, foot care by a non professional would be hazardous. Please report to the Emergency Department if you develop signs/symptoms of infection which may include the following: Fever Sweats Chills Nausea, Vomiting or Diarrhea General malaise Spiking Blood Glucose levels, unprovoked On the feet: Increased pain Swelling or edema Redness Warmth Pus Malodor Contact directly with any above symptoms Wednesday-Wednesday 8:00AM-4:00PM. If weekends/holidays/evenings, please report to the Emergency Department. Alba Bay DPM Client Support Analyst, [facility] documented in this encounter Plan of Treatment Upcoming Encounters Date Type Department Care Team (Late st Contact Info) Description 12/30/2023 2:45 PM EDT TH Visit (TeleHealth) [place] [address] Michael Morgan, 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 Author Other (Enter personal goal) Lifestyle On track( 1:14 PM EDT) Riddhi Buchanan RD Note: -Add peanut butter to oatmeal -Continue to add beans to meals as a source of protein and fiber -If can, buy fresh vegetables and fruit from [employer]-sent message with resources -Choose whole grain [...] hyperglycemia, with long-term current use of insulin Onychauxis Other specified disease of nail Callus of heel Corns and callosities documented in this encounter Care Teams Teasel Setter Relationship Specialty Start Date End Date Lia Pearson APRN [address] [place] [address] PCP - General Geriatric Medicine 10/15/21 01/26/22 documented as of this encounter
--- OUTSIDE RECORDS SUMMARY | 2023-11-26 19:32 | XMS_ITS | Encounter Summary ---
Author Organization [facility] [place] [address] Care Team Providers Care Reimbursement Specialist Name Role Phone Lia Pearson APRN Primary Care Provider [phone] Encounter Details Date Type Department Care Team (Latest Contact Info) Description 04/15/2022 Travel Social History Tobacco Use Types Packs/Day [...] EDT TH Visit (TeleHealth) [place] [address] Michael Morgan, [facility] [place] [address] documented as of this encounter Goals Goal [...] Note: Practice STOP and Urge Surfing. Health Industrial Millwright will send hand-outs. Movement Lifestyle On track( 023 1:14 PM EDT) Riddhi Buchanan RD Note: Continue to walk stairs and walks when can. Will continue using stairs as it's colder. Look into finding weights free online or at [employer] stores. Could use water-filled milk jugs as weights-a full gallon jug would be 8 lbs. Will look into nearby rec center 04/16/22 NATHALIA documented as of this encounter Visit Diagnoses Not on filedocumented in this encounter Care Teams Reimbursement Specialist Relationship Specialty Start Date End Date Lia Pearson APRN [address] [place] [address] PCP - General Geriatric Medicine 02/09/22 documented as of this encounter
--- OUTSIDE RECORDS SUMMARY | 2023-11-26 19:32 | XMS_ITS | Encounter Summary ---
Author Organization [facility] [place] [address] Care Team Providers Care Food Vendor Name Role Phone Lia Pearson APRN Primary Care Provider [phone] Encounter Details Date Type Department Care Team (Late st Contact Info) Description 02/26/2022 Refill Obstetrics [place] [phone] Lilian Gallegos RN Abnormal uterine bleeding Social History Tobacco Use Types Packs/Day [...] encounter Miscellaneous Notes * Telephone Encounter - Lilian Gallegos RN - 02/26/2022 10:12 AM EDT TC to Zenia Worley 31 y.o. to discuss her myD-H message about heavy bleeding. Vaginal bleedin.5 weeks ago bleeding picked up to heavy. Changing depend 4x/day as she was saturating pads too quickly. Patricia sized clots 3x/day for the last week. Medications: Norethindrone 5mg BID- lightly bleeding with this dose prior to this heavy bleeding. Reports that she was mildly lightheaded over the weekend. Reports that this morning she felt lightheaded when first woke up. Denies currently. Denies fevers and chills. Denies pain. Spoke with Dr. Swain who has hysteroscopy scheduled with patient 03/03. Dr. Swain recommended that patient report to ED. Discussed this with the patient who refused. Educated patient that due to her hx of anemia and need for blood transfusions ED is the safest place for her. Patient continues to refuse and states it's not bad enough for the ED yet, I've had worse bleeding. Spoke with Dr. Swain who offered that if patient refuses ED she can complete CBC and TID norethindrone 5mg. Patient agrees with this plan. She requests blood work be sent to [facility] and a new prescription for TID norethindrone. Educated patient that if she has an increase in bleeding or lightheaded and dizziness that she needs ED care. Patient agrees with this plan. Requested patient message into office when blood work completed so nursing can call for results. Paged Dr. Swain to sign CBC and TID Aygestin. * Telephone Encounter - Lilian Glalegos RN - 02/26/2022 10:11 AM EDT ----- Message from Zenia Worley sent at 02/26/2022 10:06 AM EDT ----- Regarding: Bleeding I have been bleeding extremely bad for the last week and a half. Like a lot of blood and blood clots. Should I continue with the operation on Wednesday if I???m bleeding this bad? I had to go back to wearing diapers because it???s so bad I bleed through 3 of them a day. I don???t have the money to keep buying these. Please let me know what to do documented in this encounter Plan of Treatment Upcoming Encounters Date Type Department Care Team (Late st Contact Info) Description 12/30/2023 2:45 PM EDT TH Visit (TeleHealth) [place] [address] Michael Morgan, [facility] [place] [address] documented as of this encounter Goals Goal Patient Goal Type Associated Problems Recent Progress Patient-Stated? Author Other (Enter personal goal) Lifestyle On track( 1:14 PM EDT) Riddhi Buchanan RD Note: -Add peanut butter to oatmeal -Continue to add beans to meals as a source of protein and fiber -If can, buy fresh vegetables and fruit from [employer]-sent message with resources -Choose whole grain [...] Note: Practice STOP and Urge Surfing. Health Production Support Consultant will send hand-outs. Movement Lifestyle On track( 1:14 PM EDT) Riddhi Buchanan RD Note: Continue to walk stairs and walks when can. Will continue using stairs as it's colder. Look into finding weights free online or at [employer] and services stores. Could use water-filled milk jugs as weights-a full gallon jug would be 8 lbs. Will look into nearby rec center 04/16/22 NATHALIA documented as of this encounter Visit Diagnoses Diagnosis Abnormal uterine bleeding Unspecified disorder of menstruation and other abnormal bleeding from female genital tract documented in this encounter Care Teams Food Vendor Relationship Specialty Start Date End Date Lia Pearson APRN [address] [place] [address] PCP - General Geriatric Medicine 02/09/22 documented as of this encounter
--- OUTSIDE RECORDS SUMMARY | 2023-11-26 19:32 | XMS_ITS | Encounter Summary ---
Author Organization [facility] [place] [address] Care Team Providers Care Die Inspector Name Role Phone Lia Pearson APRN Primary Care Provider [phone] Encounter Details Date Type Department Care Team (Late st Contact Info) Description 02/20/2022 External Results Weight and Wellness at [address] [address] Rebeka Up, RN Social History Tobacco Use [...] EDT TH Visit (TeleHealth) Inter[place] [address] Michael Morgan, [facility] [place] [address] documented as of this encounter Goals Goal [...] Note: Practice STOP and Urge Surfing. Health Producer Assistant will send hand-outs. Movement Lifestyle On track( 023 1:14 PM EDT) Riddhi Buchanan RD Note: Continue to walk stairs and walks when can. Will continue using stairs as it's colder. Look into finding weights free online or at [employer] stores. Could use water-filled milk jugs as weights-a full gallon jug would be 8 lbs. Will look into nearby rec center 04/16/22 NATHALIA documented as of this encounter Procedures Procedure Name Priority Date/Time Associated Diagnosis Comments [facility] EXTERNAL LABS 2 Routine 02/12/2022 documented in this encounter Results * (ABNORMAL) [facility] Labs 2 - External (02/12/2022) Chol, Total 146 Triglycerides 98 HDL 38(L) LDL Cholesterol 89 25-OH Vit D Total 6.5(L) Platelets 433(H) Ferritin 16 Iron 37(L) 02/12/2022 Historical Provider POINT OF CARE SARAY T ORDERABLES documented in this encounter Visit Diagnoses Not on filedocumented in this encounter Care Teams Die Inspector Relationship Specialty Start Date End Date Lia Pearson APRN [address] [place] [address] PCP - General Geriatric Medicine 02/09/22 documented as of this encounter
--- OUTSIDE RECORDS SUMMARY | 2023-11-26 19:32 | XMS_ITS | Encounter Summary ---
Author Organization [facility]ly [facility] Address [facility] [place] [address] Care Team Providers Care Change Room Attendant Name Role Phone NasraLia chávez JULIO C Primary Care Provider [phone] Encounter Details Date Type Department Care Team (Late st Contact Info) Description 01/16/2022 Orders Only Weight and Wellness at [place] [address] [place] [address] Jenni Waller MD [facility] [place] [address] Class 3 severe obesity with body mass index (BMI) greater than or equal to 70 in adult, unspecified obesity type, unspecified whether serious comorbidity present; Type 2 diabetes mellitus with hyperglycemia, with [...] Progress Notes * Jenni Waller MD - 01/16/2022 3:04 PM EDT Spoke with mayte Estrada APRN. She is ok if I need ot adjust insulin/GLP. Consider Mounjaro if we cannot get highest dose Ozempic. Weight at end on 12/29 was 415# documented in this encounter Plan of Treatment Upcoming Encounters Date Type Department Care Team (Late st Contact Info) Description 12/30/2023 2:45 PM EDT TH Visit (TeleHealth) [place] [address] Michael Morgan, [facility] [place] [address] documented as of this encounter Goals Goal Patient Goal Type Associated Problems Recent Progress Patient-Stated? Author Other (Enter personal goal) Lifestyle On track( 023 1:14 PM EDT) Riddhi Buchanan RD Note: -Add peanut butter to oatmeal -Continue to add beans to meals as a source of protein and fiber -If can, buy fresh vegetables and fruit from [employer]-sent message with resources -Choose whole grain options [...] insulin documented in this encounter Care Teams Change Room Attendant Relationship Specialty Start Date End Date Lia Pearson APRN [address] [place] [address] PCP - General Geriatric Medicine 10/15/21 01/26/22 documented as of this encounter
--- OUTSIDE RECORDS SUMMARY | 2023-11-26 19:32 | XMS_ITS | Encounter Summary ---
Author Organization [facility] Address [facility] [place] [address] Care Team Providers Care Electric Truck Crane Operator Name Role Phone Lia Pearson APRN Primary Care Provider [phone] Encounter Details Date Type Department Care Team (Late st Contact Info) Description 01/08/2022 Telephone Weight and Wellness at [address] [phone] Jenni Waller MD [facility] [place] [address] Social History Tobacco Use Types Packs/Day Years [...] encounter Miscellaneous Notes * Telephone Encounter - Jenni Waller MD - 01/08/2022 4:30 PM EDT Left message for endocrinology 2 weeks ago (prior to my vacation). Lilian Wesley called back on my day off. Tried to call her today but was unable to reach anyone. Left VM on nurse line to explain plan to increase Ozempic and decrease of Lantus d/t low overnight blood sugars. (I.e. stopped 13 units evnign dose of Lantus) Left my personal cell to call back with questions. documented in this encounter Plan of Treatment Upcoming Encounters Date Type Department Care Team (Late st Contact Info) Description 12/30/2023 2:45 PM EDT TH Visit (TeleHealth) [place] [address] Michael Morgan, [facility] [place] [address] documented as of this encounter Goals Goal Patient Goal Type Associated Problems Recent Progress Patient-Stated? Author Other (Enter personal goal) Lifestyle On track( 023 1:14 PM EDT) Riddhi Buchanan RD Note: -Add peanut butter to oatmeal -Continue to add beans to meals as a source of protein and fiber -If can, buy fresh vegetables and fruit from [employer]-sent message with resources -Choose whole grain options [...] insulin documented in this encounter Care Teams Electric Truck Crane Operator Relationship Specialty Start Date End Date Lia Pearson APRN [address] [place] [address] PCP - General Geriatric Medicine 10/15/21 01/26/22 documented as of this encounter
--- OUTSIDE RECORDS SUMMARY | 2023-11-26 19:32 | XMS_ITS | Encounter Summary ---
Author Organization [facility] Address [facility] [place] [address] Care Team Providers Care Paper Stripper Name Role Phone Lia Pearson APRN Primary Care Provider [phone] Encounter Details Date Type Department Care Team (Late st Contact Info) Description 03/10/2022 Telephone Obstetrics [place] [address] Sabrina Swain MD [facility] DR [place] [address] Social History Tobacco Use Types Packs/Day Years [...] encounter Miscellaneous Notes * Telephone Encounter - Sabrina Swain MD - 03/10/2022 4:07 PM EDT TC let pt know that path from her hysterosocpy was benign. Reports doing well with bleeding completely stopped as of Sun. Taking aygestin BID and plans to taper to q day x 1 wk then dc. Can resume if any heavy bleeding returns. Plan to push out next visit to3-4 mos to check in on IUD. Sabrina Swain MD documented in this encounter Plan of Treatment Upcoming Encounters Date Type Department Care Team (Late st Contact Info) Description 12/30/2023 2:45 PM EDT TH Visit (TeleHealth) Interventional Radiology at [facility] [place] [address] Michael Morgan, [facility] [place] [address] documented as of this encounter Goals Goal Patient Goal Type Associated Problems Recent Progress Patient-Stated? Author Other (Enter personal goal) Lifestyle On track( 023 1:14 PM EDT) No Riddhi Wilson RD Note: -Add peanut butter to oatmeal -Continue to add beans to meals as a source of protein and fiber -If can, buy fresh vegetables and fruit from [employer]-sent message with resources -Choose whole grain [...] sippie cup Self-awareness, body cues Lifestyle No Z-Param, [place] Note: Practice STOP and Urge Surfing. Health Hogshead Hand will send hand-outs. Movement Lifestyle On track( 023 1:14 PM EDT) Riddhi Buchanan RD Note: Continue to walk stairs and walks when can. Will continue using stairs as it's colder. Look into finding weights free online or at [employer] stores. Could use water-filled milk jugs as weights-a full gallon jug would be 8 lbs. Will look into nearby rec center 04/16/22 NATHALIA documented as of this encounter Visit Diagnoses Not on filedocumented in this encounter Care Teams Paper Stripper Relationship Specialty Start Date End Date Lia Pearson APRN [address] [place] [address] PCP - General Geriatric Medicine 02/09/22 documented as of this encounter
--- OUTSIDE RECORDS SUMMARY | 2023-11-26 19:32 | XMS_ITS | Encounter Summary ---
Author Organization [facility] [place] [address] Care Team Providers Care Boiler Tester Name Role Phone Lia Pearson APRN Primary Care Provider [phone] Encounter Details Date Type Department Care Team (Late st Contact Info) Description 03/06/2022 Orders Only Obstetrics [place] [phone] Sarahi Mercedes MD [facility] DR OBSTETRICS & [place] [address] Abnormal uterine bleeding (AUB) Social History Tobacco [...] EDT TH Visit (TeleHealth) [place] [address] Michael Morgan, [facility] [place] [address] documented as of this encounter Goals Goal Patient Goal Type Associated Problems Recent Progress Patient-Stated? Author Other (Enter personal goal) Lifestyle On track( 1:14 PM EDT) Riddhi Buchanan RD Note: -Add peanut butter to oatmeal -Continue to add beans to meals as a source of protein and fiber -If can, buy fresh vegetables and fruit from [employer]-sent message with resources -Choose whole grain [...] Note: Practice STOP and Urge Surfing. Health Floor Cleaner will send hand-outs. Movement Lifestyle On track( 1:14 PM EDT) Riddhi Buchanan RD Note: Continue to walk stairs and walks when can. Will continue using stairs as it's colder. Look into finding weights free online or at [employer] stores. Could use water-filled milk jugs as weights-a full gallon jug would be 8 lbs. Will look into nearby [facility] 04/16/22 NATHALIA documented as of this encounter Visit Diagnoses Diagnosis Abnormal uterine bleeding (AUB) documented in this encounter Care Teams Boiler Tester Relationship Specialty Start Date End Date Lia Pearson APRN [address] [place] [address] PCP - General Geriatric Medicine 02/09/22 documented as of this encounter
--- OUTSIDE RECORDS SUMMARY | 2023-11-26 19:32 | XMS_ITS | Encounter Summary ---
Author Organization [facility] Address [facility] [place] [address] Care Team Providers Care Mink Slicer Name Role Phone Anita Plummer Primary Care Provider [phone] Encounter Details Date Type Department Care Team (Late st Contact Info) Description 01/29/2022 11:15 AM EDT TH Visit (TeleHealth) Weight and Wellness at [address] [address] [facility] [place] [address] Morbid obesity with BMI of 60.0-69.9, adult Social History Tobacco Use Types Packs/Day [...] - Inhaled Oxygen Concentration - - Weight 188.2 kg (415 lb) 01/29/2022 11:00 AM EDT Height - - Body Mass Index 69.06 11/26/2021 8:01 AM EDT documented in this encounter Patient Instructions * Patient Instructions* Riddhi Wilson RD - 01/29/2022 11:15 AM EDT It was great to chat with you, Zenia. Below are goals discussed today as well as in past visits. [facility] if you have any questions or concerns. Riddhi Goals Bariatric behaviors Eating Slowly and taking 20-30 [...] sippie cup Movement Continue to walk stairs nn walks. Will continue using stairs as it's colder. Look into finding weights free online or at [employer] stores. Could use water-filled milk jugs as weights-a full gallon jug would be 8 lbs. Other (Enter personal goal) -Add peanut butter to oatmeal -Continue to add beans to meals as a source of protein and fiber -If can, buy fresh vegetables and fruit from [employer]-sent message with resources -Choose whole grain options if available -When having a snack, focus on protein Self-awareness, body cues Practice STOP and Urge Surfing. Health Sample Card Maker will send hand-outs. documented in this encounter Progress Notes * Riddhi Wilson RD - 01/29/2022 11:15 AM EDT Nutrition Intervention for Weight Management Initial RD visit with YARELI Ceballos 1990 Telehealth / telephone visit conducted while patient was at home at the following address: [address] [place] [address] [address] [facility] [address] Weight Today: Wt Readings from Last 3 Encounters: 01/29/22 (!) 188.2 kg (415 lb) 12/24/21 (!) 196 kg (432 lb) 12/19/21 (!) 196.3 kg (432 lb 12.8 oz) BMI Readings from Last 3 Encounters: 01/29/22 69.06 kg/m?? 12/24/21 71.89 kg/m?? 12/19/21 72.02 kg/m?? Interview: Phone call today as Zenia was getting an error message trying to connect to [employer]. Feelslise things are going well. In the last few days, she started using [employer] to track her macronutrients. The rebecca allows her 2800 qing for weight loss, she is eating between 0920-2490 qing/day. Doesn't really feel hungry after 7 pm. Has been adding more protein: beans, chicken, turkey legs from the food bank, low-sodium turkey-arnold. She has been doing better reducing carb intake and focusing on protein, noticing she feels full longer. Access to food is better-utilizing [employer] markets, getting a lot of vegetables Food bank has been more helpful with protein foods Still walking stairs, getting out for walks when it's nice. Will continue using stairs as it's colder. Can see about finding weights free online. Suggested she could use water-filled milk jugs as weights-a full gallon jug would be 8 lbs. Is continuing to reduced fluids at meals, is down to 8 oz at meals. Suggested setting a schedule toeminate water at meals e.g. 4 oz for a few days, then 2, etc. Weight Loss History: See previous notes from this principal technical writer and [facility] provider for full account [x] water - (total: [] plain [] crystal light or other sugar-free additive Appetite/Hunger: [x] feels managed with foods/meals outlined above [] discussed meal/snack schedule adjustment today- see goals [] patient identifies eating for reasons other than hunger- see interview above [x] Current food Tracking [] discussed potential benefit [...] table ??? Use sauces to moisten foods 5. Stay hydrated! Aim for 48-64 oz each day ??? SIP slowly-5 minutes per ounce of fluid ??? Try freezing a bottle of water or using a child's sippie cup ??? Other (Enter personal goal) -Add peanut butter to oatmeal -Continue to add beans to meals as a source of protein and fiber -If can, buy fresh vegetables and fruit from [employer]-sent message with resources -Choose whole grain options if available -When having a snack, focus on protein ??? Self-awareness, body cues Practice STOP and Urge Surfing. Health Sample Card Maker will send hand-outs. Bariatric eating behaviors introduced [...] either side [x] Sip rather than gulp [] Reduce coffee intake down to ~1 cup (caffeine) prior to surgery [] Reduce alcohol, ideally avoid [] Currently smoking? [] Former smoker, quit date: (2 months nicotine-free prior to surgery) Activity: [x] reviewed current goals [] updated goals Barriers to Change: None noted Nutrition Goals updated today: Goals Addressed This [...] ??? Movement ??? Continue to walk stairs nn walks. Will continue using stairs as it's colder. ??? Look into finding weights free online or at [employer] stores. o Could use water-filled milk jugs as weights-a full gallon jug would be 8 lbs. ??? Other (Enter personal goal) On track -Add peanut butter to oatmeal -Continue to add beans to meals as a source of protein and fiber -If can, buy fresh vegetables and fruit from [employer]-sent message with resources -Choose whole grain options if available -When having a snack, focus on protein Monitor/Evaluate: [x] Currently scheduled for: [] 1st consecutive monthly nutrition visit [] 2nd consecutive monthly nutrition visit [x] 3rd consecutive monthly nutrition visit (OR) [] Patient has met requirement of 3 consecutive monthly nutrition visits but agrees that ongoing support would be helpful and feasible. Above determined to the best ability of this principal technical writer. Patient will contact bariatric surgery team for any official determination about scheduling and insurance requirements ( ) Thank you, Riddhi Cross, RD LD 30 minutes were spent in visit today, including contact with patient, chart review, and documentation documented in this encounter Plan of Treatment Upcoming Encounters Date Type Department Care Team (Late st Contact Info) Description 12/30/2023 2:45 PM EDT TH Visit (TeleHealth) [place] [address] Michael Morgan, [facility] [place] [address] documented as of this encounter Goals Goal Patient Goal Type Associated Problems Recent Progress Patient-Stated? Author Other (Enter personal goal) Lifestyle On track( 023 1:14 PM EDT) Riddhi Buchanan RD Note: -Add peanut butter to oatmeal -Continue to add beans to meals as a source of protein and fiber -If can, buy fresh vegetables and fruit from [employer]-sent message with resources -Choose whole grain options [...] Note: Practice STOP and Urge Surfing. Health Sample Card Maker will send hand-outs. Movement Lifestyle On track( 023 1:14 PM EDT) Riddhi Buchanan RD Note: Continue to walk stairs and walks when can. Will continue using stairs as it's colder. Look into finding weights free online or at [employer] stores. Could use water-filled milk jugs as weights-a full gallon jug would be 8 lbs. Will look into nearby rec center 04/16/22 NATHALIA documented as of this encounter Visit Diagnoses Diagnosis Morbid obesity with BMI of 60.0-69.9, adult Morbid obesity documented in this encounter Care Teams Mink Slicer Relationship Specialty Start Date End Date Anita Plummer PA [address] [place] [address] PCP - General Urgent Care 01/27/22 02/08/22 documented as of this encounter
--- OUTSIDE RECORDS SUMMARY | 2023-11-26 19:32 | XMS_ITS | Encounter Summary ---
[place] [address] Care Team Providers Care Farmworker Turkey Farm Name Role Phone Anita Plummer Primary Care Provider [phone] Reason for Referral * Consultation (Urgent) - Closed Specialty Diagnoses / Procedures Referred By Della kern Referred To Contact Gastroenterology Diagnoses Dysphagia, unspecified type Dysphagia Procedures EGD Sedation: Anesthesia Timeframe: within 3 Weeks -- B. Indication: Dysphagia, feeling like choking This procedure should be performed with: Any Endoscopist Anita Plummer PA [address] [place] [address] [facility] [address] [place] [address] Referral ID Status Reason Start Date Expiration Date V isits Requested Visits Authorized [id number] Closed Consult, Test & Treat 01/27/2022 01/27/2023 6 6 Encounter Details Date Type Department Care Team (Latest Contact Info) Description 01/27/2022 Transcribe Orders eDH Incoming Referrals [phone] Anita Plummer PA [address] [place], [place] [id number] Dysphagia, unspecified type Social History Tobacco Use Types [...] EDT TH Visit (TeleHealth) [place] [address] Michael Morgan, [facility] [place] [address] Scheduled Referrals Name Type Priority Associated Diagnoses Order Schedule Referral to Gastroenterology Outpatient Referral STAT Dysphagia, unspecified type Ordered: 01/27/2022 documented as of this encounter Goals Goal Patient Goal Type Associated Problems Recent Progress Patient-Stated? Author Other (Enter personal goal) Lifestyle On track( 023 1:14 PM EDT) Riddhi Buchanan RD Note: -Add peanut butter to oatmeal -Continue to add beans to meals as a source of protein and fiber -If can, buy fresh vegetables and fruit from [employer]-sent message with resources -Choose whole grain [...] Practice STOP and Urge Surfing. Health Health Benefits Specialist will send hand-outs. documented as of this encounter Visit Diagnoses Diagnosis Dysphagia, unspecified type documented in this encounter Care Teams Farmworker Turkey Farm Relationship Specialty Start Date End Date Anita Plummer PA [address] [place] [address] PCP - General Urgent Care 01/27/22 02/08/22 documented as of this encounter
--- OUTSIDE RECORDS SUMMARY | 2023-11-26 19:32 | XMS_ITS | Encounter Summary ---
[place] [address] Care Team Providers Care Gastroenterologist Name Role Phone Lia Pearson APRN Primary Care Provider [phone] Encounter Details Date Type Department Care Team (Late st Contact Info) Description 01/07/2022 2:00 PM EDT Office [place] [phone] Social History Tobacco Use Types Packs/Day Years [...] Sign Reading Time Taken Comments Blood Pressure 119/81 01/07/2022 11:00 AM EDT ri ght lower arm Pulse 116 01/07/2022 11:00 AM EDT Temperature - - Respiratory Rate 20 01/07/2022 11:00 AM EDT Oxygen Saturation 96% 01/07/2022 11:00 AM EDT room air Inhaled Oxygen Concentration - - Weight - - Height - - Body Mass Index - - documented in this encounter Plan of Treatment Upcoming Encounters Date Type Department Care Team (Late st Contact Info) Description 12/30/2023 2:45 PM EDT TH Visit (TeleHealth) [place] [phone] Michael Morgan, [facility] [place] [address] documented as of this encounter Goals Goal Patient Goal Type Associated Problems Recent Progress Patient-Stated? Author Other (Enter personal goal) Lifestyle On track( 023 1:14 PM EDT) Riddhi Buchanan RD Note: -Add peanut butter to oatmeal -Continue to add beans to meals as a source of protein and fiber -If can, buy fresh vegetables and fruit from [employer]-sent message with resources -Choose whole grain options [...] on filedocumented in this encounter Care Teams Gastroenterologist Relationship Specialty Start Date End Date Lia Pearson APRN [address] [place] [address] PCP - General Geriatric Medicine 10/15/21 01/26/22 documented as of this encounter
--- OUTSIDE RECORDS SUMMARY | 2023-11-26 19:32 | XMS_ITS | Encounter Summary ---
Author Organization [facility] Address [facility] [place] [address] Care Team Providers Care Wallpaper Installer Name Role Phone Lia Pearson APRN Primary Care Provider [phone] Encounter Details Date Type Department Care Team (Late st Contact Info) Description 04/16/2022 10:45 AM EST TH Visit (TeleHealth) Weight and Wellness at [address] [address] Riddhi Wilson, RD [facility] [place] [address] Class 3 severe obesity with body mass [...] - Inhaled Oxygen Concentration - - Weight 193.7 kg (427 lb) 04/16/2022 11:00 AM EST Height - - Body Mass Index 71.06 03/03/2022 6:13 AM EDT documented in this encounter Patient Instructions * Patient Instructions* Riddhi Wilson RD - 04/16/2022 10:45 AM EST It was great to chat with you, Zenia. Below are goals discussed today as well as in past visits. Please reach out with a [facility] message if you have any questions or [...] into finding weights free online or at [employer] stores. Could use water-filled milk jugs as weights-a full gallon jug would be 8 lbs. Will look into nearby [facility] 04/16/22 NATHALIA Other (Enter personal goal) -Add peanut butter to oatmeal -Continue to add beans to meals as a source of protein and fiber -If can, buy fresh vegetables and fruit from [employer]-sent message with resources -Choose whole grain options if available -When having a snack, focus on protein Self-awareness, body cues Practice STOP and Urge Surfing. Health Hub Cutter will send hand-outs. documented in this encounter Progress Notes * Riddhi Wilson RD - 04/16/2022 10:45 AM EST Nutrition Intervention for Weight Management Initial RD visit with YARELI Ceballos 1990 Patient confirms visit conducted while patient was in the following state: [place] Weight Today: Wt Readings from Last 3 Encounters: 03/03/22 (!) 193.8 kg (427 lb 3.2 oz) 02/26/22 (!) 190.8 kg (420 lb 9.6 oz) 02/23/22 (!) 191.4 kg (422 lb) BMI Readings from Last 3 Encounters: 03/03/22 71.09 kg/m?? 02/26/22 69.99 kg/m?? 02/23/22 70.22 kg/m?? Interview: Not drinking liquid while eating and slowing down during meals. Protein is good well, switched snacks throughout the day, adding beef jerky and whole nuts, trail mix. Still successful using food [employer] and grocery store. Discussed added sugars in trail mix. Still have lots of PB. Is sticking to regular meal patterns and no mindless snacking. LoseIt has been helpful, at 1900 calories. CHO is lower than used to be, protein has increased, fatintake has decreased. Has been using air fryer-smoked turkey wing, had with cummings beans and 1/2 c brown rice. Movement-this week has been good, walked to bank, walked back with groceries. Has been walking stairs when can't sleep. Noticed a rec center nearby, will check today if she can use. Resistance bands are kept nearby, reminded her she can use those a few times a day. FUV in 7 weeks, 1 year of alcohol abstinence is Jun 23. Weight Loss History: See previous notes from this film writer and [facility] provider for full account Typical Dietary Intake: See previous notes from this film writer B: L: D: S: Typical Beverages: [] coffee (Cups per day: [] half and half (unflavored) [] flavored creamer (sugar) [] flavored creamer (sugar-free) [] added sugar - (total: [] added non-caloric sweetener [x] water - (total: [x] plain [x] crystal light or other sugar-free additive- 8 oz/day [] [place] [] Alcohol (Amount per week: [] Diet soda [] Diet other drink [] Regular soda [] Juice [] Lemonade [] milk Appetite/Hunger: [x] feels managed with foods/meals outlined [...] into finding weights free online or at [employer] stores. o Could use water-filled milk jugs as weights-a full gallon jug would be 8 lbs. ??? Other (Enter personal goal) -Add peanut butter to oatmeal -Continue to add beans to meals as a source of protein and fiber -If can, buy fresh vegetables and fruit from [employer]-sent message with resources -Choose whole grain options if available -When having a snack, focus on protein ??? Self-awareness, body cues Practice STOP and Urge Surfing. Health Hub Cutter will send hand-outs. Bariatric eating behaviors introduced [...] drinking by 30 minutes on either side [] Sip rather than gulp [] Reduce coffee intake down to ~1 cup (caffeine) prior to surgery [] Reduce alcohol, ideally avoid [] Currently smoking? [] Former smoker, quit date: (4 months nicotine-free prior to first surgery appointment) Activity: [x] reviewed current goals [] updated goals Nutrition Goals updated today: Goals Addressed This [...] into finding weights free online or at [employer]. o Could use water-filled milk jugs as weights-a full gallon jug would be 8 lbs. ??? Will look into nearby rec center 04/16/22 NATHALIA ??? Other (Enter personal goal) On track -Add peanut butter to oatmeal -Continue to add beans to meals as a source of protein and fiber -If can, buy fresh vegetables and fruit from [employer]-sent message with resources -Choose whole grain options if available -When having a snack, focus on protein Monitor/Evaluate: [x] Needs additional fuv scheduled with this film writer: Return in about 7 weeks (around 06/04/2022) for BSP, FUV, Telehealth. Above determined to the best ability of this film writer. Patient will contact bariatric surgery team [...] EDT TH Visit (TeleHealth) [place] [address] Michael Morgan, [facility] [place] [address] documented as of this encounter Goals Goal Patient Goal Type Associated Problems Recent Progress Patient-Stated? Author Other (Enter personal goal) Lifestyle On track( 023 1:14 PM EDT) Riddhi Buchanan RD Note: -Add peanut butter to oatmeal -Continue to add beans to meals as a source of protein and fiber -If can, buy fresh vegetables and fruit from [employer]-sent message with resources -Choose whole grain options [...] Note: Practice STOP and Urge Surfing. Health Hub Cutter will send hand-outs. Movement Lifestyle On track( 023 1:14 PM EDT) Riddhi Buchanan RD Note: Continue to walk stairs and walks when can. Will continue using stairs as it's colder. Look into finding weights free online or at [employer] stores. Could use water-filled milk jugs as weights-a full gallon jug would be 8 lbs. Will look into nearby rec center 04/16/22 NATHALIA documented as of this encounter Visit Diagnoses Diagnosis Class 3 severe obesity with body mass index (BMI) greater than or equal to 70 in adult, unspecified obesity type, unspecified whether serious comorbidity present documented in this encounter Care Teams Wallpaper Installer Relationship Specialty Start Date End Date Lia Pearson APRN [facility] [place] [address] PCP - General Geriatric Medicine 02/09/22 documented as of this encounter
--- OUTSIDE RECORDS SUMMARY | 2023-11-26 19:32 | XMS_ITS | Encounter Summary ---
Author Organization [place] [address] Care Team Providers Care V/Stol Landing Signal Officer Name Role Phone Lia Pearson APRN Primary Care Provider [phone] Encounter Details Date Type Department Care Team (Latest Contact Info) Description 04/15/2022 2:30 PM EST TH Visit (TeleHealth) Weight and Wellness at [address] [address] Angela Pruett, PhD [facility] [address] Schizoaffective disorder, unspecified type; Posttraumatic stress disorder Social History Tobacco Use Types Packs/Day Years [...] this encounter Patient Instructions * Patient Instructions* Angela Pruett, PhD - 04/15/2022 2:30 PM EST Current recommendations Continue engaging in health promoting behaviors. Continue to abstain from all alcohol use Continue psychological counseling for trauma and depression. Discuss with family, PCP to come up with plan for post-surgical support - continue to build supportnetwork locally. Great job with this! Continue behavioral changes, especially: -Increasing exercise. Park further away, take steps instead of elevators, swimming is great for those with pain/difficulty walking, walking is cheap and easy, get an exercise partner (family, friend,or pet will do), listen to music while you exercise, try different types of exercise to find one you like (e.g., walking, riding bike, going to gym, swimming, exercise videos), get on a regular exercise schedule, do chair exercises for upper body if knees/legs/back are problems documented in this encounter Progress Notes * Angela Pruett, PhD - 04/15/2022 2:30 PM EST BARIATRIC SURGERY FOLLOW UP NOTE N [facility] [address] [facility] [address] Dept: [phone] 04/15/2022 2:30PM Zenia Worley is a 32 y.o. female who was referred for evaluation and preparation for potential bariatric surgery.Zenia was previously evaluated on 02/18/22, and concern were raised about bariatric surgery readiness. Zenia was seen for 30 minutes. Patient was alone, and was seen via telehealth. Zenia Worley gave permission for and was seen for today's appointment with a Telehealth visit. During this visit they were located at home in [place]. Zenia Worley is aware that for any urgent matter they can text/call or access www.[employer] if they are in the state of [place]. For [place] residents, crisis service contact info can be found at: https://mentalhealth.[place].gov/services/emergency-services/imq-saq-sdfi . RECOMMENDATION BASED ON PSYCHOLOGICAL EVALUATION YELLOW - Based on the information gathered during this assessment, Zenia Worley would benefit fromadditional health behavior change before she is ready to proceed with surgery. Specifically, Karanould benefit from the following to assist with preparing for bariatric surgery: ? Continue engaging in health promoting behaviors. ??? Continue to abstain from all alcohol use ??? Continue psychological counseling for trauma and depression. ??? Discuss with family, PCP to come up with plan for post-surgical support - continue to build support network locally. Great job with this! ?? Continue behavioral changes, especially:? -Increasing exercise. Park further away, take steps instead of elevators, swimming is great forthose with pain/difficulty walking, walking is cheap and easy, get an exercise partner (family, friend, or pet will do), listen to music while you exercise, try different types of exercise to find one you like (e.g., walking, riding bike, going to gym, swimming, exercise videos), get on a regular exercise schedule, do chair exercises for upper body if knees/legs/back are problems ?? The follow up plan is as follows: ~6 weeks with Raisa (patient still needs one full year of ETOH abstinence) ?? SUMMARY The decision noted above is based on the following: ?? 1. Zenia has made significant weight loss attempts in the past, but without lasting success. 2. Zenia experienced marked mental health problems in the past year. 3. Zenia experienced marked mental health problems earlier in life. 4. Zenia is not engaging in problematic eating behaviors. 5. Zenia is knowledgeable about the surgery. 6. Zenia's motivation for surgery is: good 7. Zenia's social support is: poor-fair - improving 8. Zenia is aware of expected surgery weight loss with surgery. 9. Zenia is aware of the habit changes that will need to occur and is actively engaged in changingthose now. 10. Zenia does not have a history of adherence/attendance issues. ?? DIAGNOSIS (based on information gathered in this evaluation) Schizoaffective disorder PTSD The above assessment and plan was based on the following information obtained during the appointment. Please note section in blue indicates updated information from the previous evaluation: WEIGHT Initial Weight: 432 lbs Weight at previous evaluation: 415 lbs Current Weight as of 04/15/2022: 427 lbs Weight changes since evaluation: has fluctuated PROBLEM EATING BEHAVIORS From previous evaluation: No previously identified concerns 04/15/2022: Patient reported her weight gain may be related to her increased insulin and Seroquel because she does not believe her eating habits have changed since our last visit. She is discussing a medication change (switching from Seroquel to Thorazine) with her psychiatrist, though they have not switched over at this time. Will likely make the switch next week. SURGERY From previous evaluation: No previously identified concerns POST SURGERY EATING HABIT CHANGES AND READINESS From previous evaluation: No previously identified concerns 04/15/2022: Patient reported maintaining all bariatric habit changes, including eating slowly, eating and drinking, increasing protein. She stated she has been getting 3 eating episodes/day with 1-2 snacks very regularly. CURRENT SOCIAL SUPPORT NETWORK From previous evaluation: Primary support comes from family - mom and sister, but they live in [place] Quality of EMOTIONAL support: good Quality of [...] does not have a post- surgical caregiver androsannae does not believe anyone in her life would be available to provide this care. Patient will explore other options, talk to her PCP. 04/15/2022: Patient reported she has been working to make more connections and build a support system. She shared that she has been regularly spending time with Yoko, a woman she knows through the [place] lived and who helped her [...] sit with her, help with groceries, etc. 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 She reported talking to her therapist about those bad days - didn't let them ruin my whole week. She stated her hallucinations have felt more manageable, denied any significant auditory or visual hallucinations recently. She reported her psychiatrist changed again and she is working with a new provider, GLORY Figueroa at [facility] - planning to switch her from Seroquel to Thorazine d/t weight gain. She denied any new or worsened sources of stress. She shared that she had a birthday a couple weeksago, and birthdays are typically difficult but she sought support from a friend and went to a movie. Coping skills: social support from mom, sister, and friend, plays video games online with her nephews, watching movies and discussing them with her sister. She also reported going for a walk sometimes. Reported sometimes she loses interest in coping skills. At the initial evaluation patient reported ongoing, [...] has been more stable since moving from [place], where situational stressors contributed to her emotional instability. At the time of the previous visit I discussed with patients my concerns about her mental health stability following surgery, particularly withsuch low amounts of local social support. MENTAL HEALTH PROVIDER COMMUNICATION (IF NEEDED) Done on 03/19/2022, see Telephone Encounter Note HEALTH BEHAVIORS From previous evaluation: ETOH: None now, June was her last [...] denied Caffeine: 0 cups/day - occasional coffee 04/15/2022: ETOH: none; she reported feeling proud [...] is saving monthly from not buying ETOH. ADHERENCE AND ATTENDANCE From previous evaluation: No previous concerns but not fully assessed. 04/15/2022: Sleep Apnea? Yes If yes, Night per week using CPAP: 7 Medication adherence - how many days in the past 7 did you miss any of your medications?: 0 - uses an alarm The assessment and plan for Zenia Worley are detailed at the beginning of this report. Angela Pruett, PhD documented in this encounter Plan of Treatment Upcoming Encounters Date Type Department Care Team (Late st Contact Info) Description 12/30/2023 2:45 PM EDT TH Visit (TeleHealth) [place] [address] Michael Morgan, [facility] [place] [address] documented as of this encounter Goals Goal Patient Goal Type Associated Problems Recent Progress Patient-Stated? Author Other (Enter personal goal) Lifestyle On track( 023 1:14 PM EDT) Riddhi Buchanan RD Note: -Add peanut butter to oatmeal -Continue to add beans to meals as a source of protein and fiber -If can, buy fresh vegetables and fruit from [employer]-sent message with resources -Choose whole grain [...] Note: Practice STOP and Urge Surfing. Health Lamination Machine Operator will send hand-outs. Movement Lifestyle On track( 023 1:14 PM EDT) Riddhi Buchanan RD Note: Continue to walk stairs and walks when can. Will continue using stairs as it's colder. Look into finding weights free online or at [employer]. Could use water-filled milk jugs as weights-a full gallon jug would be 8 lbs. Will look into nearby rec center 04/16/22 documented as of this encounter Visit Diagnoses Diagnosis Schizoaffective disorder, unspecified type Posttraumatic stress disorder documented in this encounter Care Teams V/Stol Landing Signal Officer Relationship Specialty Start Date End Date Lia Pearson APRN [address] [place] [address] PCP - General Geriatric Medicine 02/09/22 documented as of this encounter
--- OUTSIDE RECORDS SUMMARY | 2023-11-26 19:32 | XMS_ITS | Encounter Summary ---
[place] [address] Care Team Providers Care Visual Presentation Manager Name Role Phone Lia Pearson APRN Primary Care Provider [phone] Encounter Details Date Type Department Care Team (Late st Contact Info) Description 03/11/2022 Telephone Weight and Wellness at [address] [address] Angela P[place]ett, [place] [address] Social History Tobacco Use Types Packs/Day Years [...] encounter Miscellaneous Notes * Telephone Encounter - Angela Pruett, PhD - 03/11/2022 1:29 PM EDT 03/11/2022 1:31PM Called patient's mental health provider, Dale Friend, to coordinate care. No answer, so I left a voicemail requesting a return call and provided some good times to reach me. Angela Pruett, PhD documented in this encounter Plan of Treatment Upcoming Encounters Date Type Department Care Team (Late st Contact Info) Description 12/30/2023 2:45 PM EDT TH Visit (TeleHealth) Interventional Radiology at [facility] [place] [address] Michael Morgan, DO [facility] [place] [place] [address] documented as of this encounter Goals Goal Patient Goal Type Associated Problems Recent Progress Patient-Stated? Author Other (Enter personal goal) Lifestyle On track( 023 1:14 PM EDT) Riddhi Buchanan RD Note: -Add peanut butter to oatmeal -Continue to add beans to meals as a source of protein and fiber -If can, buy fresh vegetables and fruit from [employer]-sent message with resources -Choose whole grain [...] Note: Practice STOP and Urge Surfing. Health Forensic Dna Analyst will send hand-outs. Movement Lifestyle On track( 023 1:14 PM EDT) Riddhi Buchanan RD Note: Continue to walk stairs and walks when can. Will continue using stairs as it's colder. Look into finding weights free online or at [employer] stores. Could use water-filled milk jugs as weights-a full gallon jug would be 8 lbs. Will look into nearby rec center 04/16/22 NATHALIA documented as of this encounter Visit Diagnoses Not on filedocumented in this encounter Care Teams Visual Presentation Manager Relationship Specialty Start Date End Date Lia Pearson APRN [address] [place] [address] PCP - General Geriatric Medicine 02/09/22 documented as of this encounter
--- OUTSIDE RECORDS SUMMARY | 2023-11-26 19:32 | XMS_ITS | Encounter Summary ---
Author Organization [facility] Address [facility] [place] [address] Care Team Providers Care Billing Collections Specialist Name Role Phone Lia Pearson APRN Primary Care Provider [phone] Encounter Details Date Type Department Care Team (Late st Contact Info) Description 02/26/2022 11:15 AM EDT TH Visit (TeleHealth) Weight and Wellness at [address] [address] Riddhi Wilson, [facility] [address] Class 3 severe obesity with body mass [...] - Inhaled Oxygen Concentration - - Weight 190.8 kg (420 lb 9.6 oz) 11:00 AM EDT Height - - Body Mass Index 69.99 02/23/2022 1:13 PM EDT documented in this encounter Patient Instructions * Patient Instructions* Riddhi Wilson RD - 02/26/2022 11:15 AM EDT It was great to chat with you, Zenia. Below are goals discussed today as well as in past visits. Please reach out with a [facility] message if you have any questions [...] into finding weights free online or at [employer] stores. Could use water-filled milk jugs as [...] cues Practice STOP and Urge Surfing. Health Elevator Starter will send hand-outs. documented in this encounter Progress Notes * Riddhi Wilson RD - 02/26/2022 11:15 AM EDT Nutrition Intervention for Weight Management Initial RD visit with Zenia WorleyYARELI 1990 Telehealth / telephone visit conducted while patient was at home at the following address: [address] [place] [address] [address] [facility] [address] Weight Today: Wt Readings from Last 3 Encounters: 02/23/22 (!) 191.4 kg (422 lb) 02/20/22 (!) 191.3 kg (421 lb 11.2 oz) 01/29/22 (!) 188.2 kg (415 lb) BMI Readings from Last 3 Encounters: 02/23/22 70.22 kg/m?? 02/20/22 69.67 kg/m?? 01/29/22 69.06 kg/m?? Interview: Zenia's eating behaviors are going well, she hasn't;t been drinking while eating since last visit. Protein intake still going well, switched to brown rice. Using [employer] has been very helpful. Hasn't been to [employer] since 02/15. Still using the [employer]. Discussed what she will do in the winter for groceries; she will be able to go with her upstairs neighbor friend instead of taking a taxi. Has been trying to get in walks when she can, again asked about winter, she is able toget [employer] free so she can venture outside. Went over again how else she can exercise besides walks. Continuing to do stairs, resistance bands, and filling milk jugs with water are good options. She may be getting a gym in her building. She does feel like she has a decent support system she can rely on. Weight Loss History: See previous notes from this advertising copywriter and [facility] provider for full account Typical Dietary Intake: See previous notes Typical Beverages: [] coffee (Cups per day: [] half and half (unflavored) [] flavored creamer (sugar) [] flavored creamer (sugar-free) [] added sugar - (total: [] added non-caloric sweetener [x] water - (total: [] plain [] crystal light or other sugar-free additive [] [place] [] Alcohol (Amount per week: [] diet soda [] diet other drink [] regular soda [] juice [] milk Appetite/Hunger: [x] feels managed with [...] into finding weights free online or at [employer]. o Could use water-filled milk jugs as [...] cues Practice STOP and Urge Surfing. Health Elevator Starter will send hand-outs. Bariatric eating behaviors introduced [...] into finding weights free online or at [employer]. o Could use water-filled milk jugs as weights-a full gallon jug would be 8 lbs. ??? Other (Enter personal goal) On track -Add peanut butter to oatmeal -Continue to add beans to meals as a source of protein and fiber -If can, buy fresh vegetables and fruit from [employer]-sent message with resources -Choose whole grain options if available -When having a snack, focus on protein Monitor/Evaluate: [x] Needs additional fuv scheduled with this advertising copywriter in No follow-ups on file. Above determined to the best ability of this advertising copywriter. Patient will contact bariatric surgery team for [...] EDT TH Visit (TeleHealth) [place] [address] Michael Morgan, [facility] [address] documented as of this encounter Goals Goal Patient Goal Type Associated Problems Recent Progress Patient-Stated? Author Other (Enter personal goal) Lifestyle On track( 023 1:14 PM EDT) Riddhi Buchanan RD Note: -Add peanut butter to oatmeal -Continue to add beans to meals as a source of protein and fiber -If can, buy fresh vegetables and fruit from [employer]-sent message with resources -Choose whole grain options [...] Note: Practice STOP and Urge Surfing. Health Elevator Starter will send hand-outs. Movement Lifestyle On track( 023 1:14 PM EDT) Riddhi Buchanan RD Note: Continue to walk stairs and walks when can. Will continue using stairs as it's colder. Look into finding weights free online or at [employer] stores. Could use water-filled milk jugs as weights-a full gallon jug would be 8 lbs. Will look into nearby rec center 04/16/22 NATHALIA documented as of this encounter Visit Diagnoses Diagnosis Class 3 severe obesity with body mass index (BMI) of 60.0 to 69.9 in adult, unspecified obesity type, unspecified whether serious comorbidity present documented in this encounter Care Teams Billing Collections Specialist Relationship Specialty Start Date End Date Lia Pearson [place] [place] [address] PCP - General Geriatric Medicine 02/09/22 documented as of this encounter
--- OUTSIDE RECORDS SUMMARY | 2023-11-26 19:32 | XMS_ITS | Encounter Summary ---
Author Organization [facility] [place] [address] Care Team Providers Care Speech Pathologist Name Role Phone LiliLia JULIO C Primary Care Provider Encounter Details Date Type Department Care Team (Late st Contact Info) Description 03/03/2022 7:47 AM EDT Anesthesia Event [place] [id number] Fan Durham MD [facility] [place] [address] Eva Vazquez [place] [address] Anesthesia Record Procedure Summary Procedure Name Responsible Anesthesiologist Anesthesia Start Time Anesthesia Stop Time HYSTEROSCOPY, SURG W/ENDOMETRIAL SAMPLING, POLYPECTOMY (WRVU 4.17) (Uterus) Fan Durham MD 03/03/22 0747 03/03/22 1010 Events Date Time Event Comment 03/03/2022 0726 0747 AN Verify 0747 Start 0747 An Start Data 0757 Quick Note Waiting for TIR O neuron to reset function 0803 An Induction 0806 An Intubation 0810 Anesthesia Ready 0829 Quick Note Uterine US to r /o 0851 Quick Note Preparing for e ndometrial sampling 0950 Procedure Stop 0954 Extubation/LMA Out 0959 an stop data 1010 Recovery or ICU Handoff Isaura ent care was transferred to the destination unit staff after review of the patient's medical history, current anesthetic/surgical status and plan, according to the Provider Handoff Checklist. 1010 Stop Meds Name Total Midazolam 2 mg fentaNYL 50 mcg IV Lidocaine 50 mg Propofol 320 mg Rocuronium 30 mg Ondansetron 4 mg Neostigmine 2 mg Glycopyrrolate 0.4 mg Dexmedetomidine INF 62.02 mcg Dexmedetomidine 24 mcg Propofol INF 656.98 mg Succinylcholine 160 mg Insulin Regular Human 4 Units ketorolac (Toradol) (30 mg/mL) injection 15 mg lactated ringers infusion 300 mL * Agents Name O2 Air N2O Sevoflurane (et) * Blood No blood administrations on file. Lines, Drains, and Airways Type Details Placement Removal (RETIRED) Peripheral IV Line - Single Lumen 03/03/22; 0725; median cubital vein (antecubital fossa), right; 20 gauge; Maged Samson; LDA not present upon assessment; 10/14/22; 201503/03/22 07 by Danelle Morris RN 10/14/222015 by Joselin Joseph LNA ETT Mask Ventilation: Ea sy (1); ETT Type: Cuffed; ETT Size: 7.5 mm; Mac Blade: 3; Notes: Asleep; Attempts: 1; Laryngoscopy Grade: 1; ETT Placement Verified By: Capnometry, Auscultation, Visual; Secured at Teeth: 21 cm; Inserted by: darshana gao; Removal Date: 03/03/22; Removal Time: 0903/03/22 08 by Bo Gao MD 03/03/22 0959 by Bo Gao MD (RETIRED) Peripheral IV Line - Single Lumen 03/03/22; 0821; dorsal arch vein (top of hand), left; [id number] catheter system; Ultrasound Guidance; 20 gauge; darshana gao; tolerated well; LDA not present upon assessment; 10/14/22; 201503/03/22 08 by Bo Gao MD 10/14/222015 by Joselin [...] OR Notes * Anesthesia Postprocedure Evaluation - Fan Durham MD - 03/03/2022 10:10 AM EDT Department of Anesthesiology Post-procedure Note Patient: Zenia Worley Procedure Summary Date: 03/03/22 Room / Location: [facility] MAIN OR Anesthesia Start: 746 Anesthesia Stop: 1009 Procedures: HYSTEROSCOPY, SURG W/ENDOMETRIAL SAMPLING, POLYPECTOMY (WRVU 4.74) (N/A Uterus) PELVIC EXAM UNDER ANESTHESIA (WRVU 1.75) (N/A Perineum) PAP SMEAR UNDER ANESTHESIA (N/A Uterus) INSERTION OF IUD, VAGINAL APPROACH (WRVU 1.01) (N/A Uterus) ULTRASOUND, TRANSVAGINAL (WRVU 0.69) (Midline Perineum) Diagnosis: Abnormal uterine bleeding Morbid obesity with BMI of 70 and over, adult (abnormal uterine bleeding, BMI 70+) Surgeons: Sabrina Swain MD Responsible Provider: Fan Durham MD Anesthesia Type: general ASA Status: 3 All Anesthesia Providers: Anesthesiologist: Fan Durham MD Public Health Professor: Bo Gao MD Vitals Value Taken Time BP Temp Pulse 104 03/03/22 1010 Resp 26 03/03/22 1010 SpO2 97 % 03/03/22 1010 Pain Level Vitals shown include unvalidated device data. Patient Location: PACU/[facility] Level of Consciousness: Conscious but Sleepy Pain Management: Satisfactory Analgesia PONV: None Cardiovascular Status: At Baseline Respiratory Status: At Baseline and Supplemental O2 (NC or FM) Postoperative Fluid Status: Possible Anesthetic Complications: NONE apparent at time of evaluation Final Primary Anesthesia Type: General (The anesthetic type performed was the same as planned.) Comments: Uneventful intraoperative course. IDDM2 treated with 4 lispro preop and 4 lispro intraop.BG 260's preop and 230's intraop. Due for another check upon arrival in [place]. Easy BMV and intubation. Hemodynamically stable throughout. 2 functioning PIV's. -monitor BG and treat with lispro -monitor for obstruction darshana gao md Pager [phone] Addendum 03/03/2022 (MD nicky): as above. Pt feels well at time of my exam. Denies recall of intubation or extubation. No pain. No nausea. Anticipate d/c to home shortly * Anesthesia Preprocedure Evaluation - Fan Durham MD - 02/23/2022 11:40 AM EDT Pre-Anesthesia Evaluation for: Zenia Worley a 31 y.o. female. Procedure(s): HYSTEROSCOPY, SURG W/ENDOMETRIAL SAMPLING, POLYPECTOMY (WRVU 4.74) PELVIC EXAM UNDER ANESTHESIA (WRVU 1.75) PAP SMEAR UNDER ANESTHESIA INSERTION OF IUD, VAGINAL APPROACH (WRVU 1.01) ULTRASOUND, TRANSVAGINAL (WRVU 0.69) Patient Active Problem List Diagnosis Date Noted ??? Class 3 severe obesity with body mass index (BMI) of 60.0 to 69.9 in adult 02/20/2022 ??? Vitamin D deficiency 02/18/2022 ??? Insomnia 12/19/2021 ??? Essential hypertension, benign 09/26/2021 ??? Long-term insulin use 09/26/2021 ??? 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 Height: 165.1 cm (5' 5) (11/26/21) Weight: 196.3 kg (432 lb 12.8 oz) (11/26/21) BMI: 72.01 IBW: 57 kg (125 lb 10.6 oz) Airway Assessment: Mallampati: I Cardiovascular Assessment: Rhythm: regular Rate: abnormal Pulmonary Assessment: breath sounds clear to auscultation Dental Assessment: Misc Assessment: Last Filed Perioperative Cognitive Screening None Anesthesia Plan: ASA 3 general, with a(n) intravenous induction Zenia worley is a 31 yo female undergoing hysteroscopy under GA d/t intolerance in the clinic (hx PTSD, trauma). Plans for also doing possible polypectomy, possible D&C and IUD insertion with OBGYN. Pmhx: obesity BMI 70, RICHMOND on home CPAP, HTN, HFrEF exacerbated by menstruation associated anemia with recovered LVEF (55% on last TTE), IDDM, exercise induced asthma, scizophrenia disorder, night terrors, chronic back pain, chronic lower extremity pain Relevant meds: losartan, metoprolol, insulin, metformin, ozempic, levothyroxine, zaprasidone, aripiprazole, gabapentin Anesthesia hx: hx of being intubated awake emergently in PACU, having aspiration event. Lab Results Component Value Date PLATELET 433 (H) 02/12/2022 NA 140 10/27/2021 K 4.4 10/27/2021 CREATININE 0.7 10/27/2021 No results for input(s): ABORH in the last 7068 hours. Allergies: -- Fluoxetine -- Affected glucose level NPO Status: Appropriate Anesthetic Plan: Premedication with versed GA with ETT Standard ASA monitoring Adequate IV access, PIVx1 Given hx of awareness during intubation and related trauma, I believe it is in the patients best interest to be placed under GA with inhaled anesthetic gas. Extubation to CPAP. darshana gao md Pager [phone] Addendum 03/03/2022 (MD Nicky): as above. Pt also seen by me in clinic last week. No interval change. Denies . Glucose noted. Will treat - pt states would have taken 11 units if at home. Region - Other Informed Consent: Anesthetic plan and risks discussed with patient. Plan discussed with resident and attending. Anesthesia Screening Note: Date and Time of Entry: 02/23/2022 11:41 AM Entered By: Danna Starks MD Reason for Evaluation: Patient Request Other Reason: Concern about intubation and hx pna s/p aspiration Screening Visit Type: Interviewed in person Additional/Outside Records Requested? Requested medical information from outside organization. From Where? [facility] in [place], [place] -airway records Findings, Assessment and Plan: 31 y.o. female seen for pre-anesthesia consultation on 01/07/22 priorto EUA, pap, pelvic US, hysteroscopy, D&C, possible polypectomy, MIUD insertion with Dr. Swain 03/03/22. Patient is being seen again in clinic today at her own request, still having anxiety and fear of being intubated d/t prior event in 2018 where she required emergent intubation and reports she was aware of the ETT being placed at that time, along with an aspiration event that led to pneumonia while in the hospital. Denies chest pain, palpitations, dizziness, and changes in SOB. PMHx: #Menorrhagia, h/o hemorrhage requiring a blood transfusion several years ago. Evaluated by hematology, Dr. Yang, for possible bleeding disorder- per this note, no evidence of von Willebrand's disease or factor 8 deficiency. Additional labs were ordered at [facility] visit 02/10/22, showing improvement in Hgb to 12.2 from 8.3 on 10/27, and she was started on OCP's a few months ago, which she reports has lessened her bleeding during her menstrual cycles. #HTN: well controlled on losartan, metoprolol #Heart Failure: Per cardiology notes, patient has a history of acute heart failure with preserved EF which was precipitated by profound anemia. Hgb has since improved greatly since beginning OCP withless bleeding during her menstrual cycles. #HLD: rosuvastatin #Tachycardia: evaluated by welder metal fab Dr. Haider at [facility], in August had ekg which showed sinus tach and echo which showed mild LV concentric hypertrophy, EF 50- 55%, mild MR, mild TR. Metoprolol dose recently increased to 50mg d/t tachycardia, HR 120's in the office today. #Asthma - exercise induced, does not use inhaler. No recent exacerbations. #Type 2 DM: on insulin, metformin, ozempic (which has been substituted with Ribelsis recently due to backorder of ozempic) and insulin regimen recently increased. A1C 6.2 on 11/12/21. #RICMHOND: wears CPAP nightly #Hypothyroidism: on levothyroxine #Schizoaffective disorder: on aripiprazole, ziprasidone. Followed by psychologist, Angela Pruett with recent visit 5 days ago. #PTSD: on prazosin for night terrors #chronic back pain: d/t reported old sacral decubitus wound during a hospital admission years ago, requiring wound consult and debridement #LE pain and swelling: on gabapentin, furosemide - edema has been stable on diuretic Relevant PSHx: No reported surgical history Anesthetic/Airway Hx: Hx of aspiration pneumonia during an emergent intubation 2017. Requesting records from [facility] in [place], [place]. Patient is charted as a difficult airway but we have no records to confirm. Cardiopulmonary Test Results: Echo 09/05 Normal LV size. Systolic function is borderline. Mild concentric LV hypertrophy. No wmas. LVEF 50-55%. Normal RV size and function. Mild MR, mild TR. EKG showed sinus tachycardia, rate >99. Low voltage, precordial leads...precordial leads <1.0mV. HR 103. Functional Status: patient reports she is able to climb a flight of stairs without assistance but would probably need to stop fci to catch her breath. Reports that she walks approximately 30-45 minutes per day. Able to cook, clean, bathe, and use the bathroom on her own without assistance. Meds of note: Aripiprazole, Chlorpromazine, Seroquel, Ziprasidone, Trazodone, Ozempic, Norethindrone, Gabapentin,Synthroid, Losartan, Metformin XR, Metoprolol Succinate XL, Rosuvastatin, Insulin (lantus) Allergies reviewed: Fluoxetine (no true allergy or reaction, affected her glucose level) Labs reviewed: 02/12/22 WBC 8.2 RBC 4.98 Hgb 12.2 Cholesterol 146 Triglycerides 98 HDL 38 LDL 89 Iron 37 ASSESSMENT: Zenia is a 31 y/o female patient BMI 70 with history of menorrhagia, possible bleeding disorder currently undergoing workup by hematology (negative for von Willebrand's disease or factor 8 deficiency), well controlled HTN, HLD, tachycardia (on metoprolol), Type II DM on insulin, RICHMOND on CPAP, hypothyroidism, schizoaffective disorder, PTSD and chronic pain here d/t continued anxiety and fear of being intubated d/t prior event in 2018 where she required emergent intubation and reports that she was aware of the ETT being placed, along with an aspiration event that led to pneumonia while in the hospital. Pattient seen and evaluated during [facility] appointment on 01/07/22 for this upcoming procedure. -Spoke with the patient at length in the office today about these fears, answered all of her questions about anesthesia and the measures we take to minimize risk of aspiration and awareness of ETT presence. Patient has a routine visit at [facility] with cardiology on 02/27/22, Esme Haider, where she will follow-up on tachycardia and recent increase in Metoprolol dosing. She is aware of patient's upcoming procedure and appears to be medically optimized at this point. -Patient advised to bring CPAP with her on day of surgery. Follow-up items: Reaching out to [facility] in [place] to attempt to obtain airway records prior to her upcoming procedure. Case discussed with Dr. Fan Durham MD. Danna Starks MD 02/23/2022 Perioperative Care Clinic phone extension: [phone] * Anesthesia Preprocedure Evaluation - Eva Vazquez APRN - 01/07/2022 4:25 PM EDT Pre-Anesthesia Evaluation for: Zenia Worley a 31 y.o. female. Procedure(s): HYSTEROSCOPY, SURG W/ENDOMETRIAL SAMPLING, POLYPECTOMY (WRVU 4.74) PELVIC EXAM UNDER ANESTHESIA (WRVU 1.75) PAP SMEAR UNDER ANESTHESIA INSERTION OF IUD, VAGINAL APPROACH (WRVU 1.01) ULTRASOUND, TRANSVAGINAL (WRVU 0.69) Patient Active Problem List Diagnosis Date Noted ??? Insomnia 12/19/2021 ??? Essential hypertension, benign 09/26/2021 ??? Long-term insulin use 09/26/2021 ??? skilled nursing 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 09/26/2021 [...] Physical Exam: Preprocedure Vitals Current as of 01/07/22 1625 No BP, pulse, respiration, SpO2, or temperature recorded. Height: 165.1 cm (5' 5) (11/26/21) Weight: 196.3 kg (432 lb 12.8 oz) (11/26/21) BMI: 72.01 IBW: 57 kg (125 lb 10.6 oz) Airway Assessment: Mallampati: I TM distance: >3 FB Neck ROM: full Cardiovascular Assessment: Rhythm: regular Rate: abnormal PE comment: Distant heart sounds, tachycardic Pulmonary Assessment: breath sounds clear to auscultation Dental Assessment: Misc Assessment: Last Filed Perioperative Cognitive Screening None Anesthesia Plan Anesthesia Screening Note: Date and Time of Entry: 01/07/2022 4:26 PM Entered By: Eva Vazquez APRN Reason for Evaluation: Patient Request Hx of Anesthesia Problem: Hx aspiration pneumonia Screening Visit Type: Interviewed in person Additional/Outside Records Requested? Requested medical information from outside organization. From Where? Cardiology records [facility] Findings, Assessment and Plan: 31 y.o. female BMI 72 presenting for pre- anesthesia consultation prior to EUA, pap, pelvic US, hysteroscopy, D&C, possible polypectomy, MIUD insertion with Dr. Swain 03/03/22. ?? MEDICAL HISTORY: #menorrhagia, h/o hemorrhage requiring a blood transfusion several years ago. Evaluated by hematology earlier this week for possible bleeding disorder, per this note, no evidence of von Willebrand's disease or factor 8 deficiency. Additional labs were ordered and the patient plans on having these drawn today. States bleeding has improved since starting control (Hgb 8.3 on 10/27) #HTN: well controlled on losartan, metoprolol #HLD: rosuvastatin #tachycardia: evaluated by welder metal fab Dr. Haider at [facility], had ekg and echo, pt unsure of the results, started on metoprolol. Dose recently increased to 50mg d/t tachycardia, HR 116 today #asthma - exercise induced, does not use inhaler. No recent exacerbations #Type 2 DM: on insulin, metformin, ozempic (A1C 6.2) #RICHMOND: wears CPAP nightly #hypothyroidism (levothyroxine) #schizoaffective disorder (aripiprazole, ziprasidone) #PTSD: unable to tolerate exam in office, on prazosin for night terrors #chronic back pain #LE pain and swelling (gabapentin, furosemide - swelling has been stable on diuretic) ?? Recent COVID infection (12/25/21), symptoms consisted of fever, body aches, chills, cough. Symptoms have since resolved. ?? Has SOB with activity and will occasionally feel chest tightness with SOB that she feels is relatedto her breathing. Attributes these symptoms to her weight. States symptoms resolve with a few deep breaths. No symptoms at rest. Denies any orthopnea, syncope. Has intermittent reflux which is controlled with diet and sitting upright after eating. ?? Zenia states she had a panic induced seizure in 2018, was intubated and in a coma for a week. Developed aspiration pneumonia and is concerned about aspiration with her upcoming surgery. Recently, BGs have been well controlled on current medication regimen but states previously bgs were quite labile. She was hospitalized several times for low blood sugars which she states caused her to loose consciousness and required her to be intubated. No issues with these previous intubations. Denies any previous surgeries. No FH of complications related to anesthesia. ?? Overall: Zenia Worley is a 31 y.o. BMI 72 with a history of menorrhagia, possible bleeding disorder currently undergoing workup by hematology (negative for von Willebrand's disease or factor 8 deficiency), well controlled HTN, HLD, tachycardia (on metoprolol), well controlled Type II DM, RICHMOND on CPAP, hypothyroidism, schizoaffective disorder, PTSD and chronic pain who was seen for a pre-anesthesia consult. Patient followed by welder metal fab at [facility], will request records of previous testing. Patient is actively trying to loose weight and working with the weight loss clinic. Zenia wears her CPAPnightly, instructed to bring device with her on DOS. Although patient denies any previous surgeries, states she has been intubated several times without any known difficulty. Did develop aspiration pneumonia after being intubated following a seizure. Has occasional GERD symptoms but this is fairly well controlled with diet and sitting upright after eating. Discussed the risks and benefits of anesthesia. Made aware final anesthetic plan will be made by [facility] anesthesia team who she will meet priorto surgery. All questions answered to the patient's satisfaction. Update (01/13/22): [facility] cardiology notes scanned under media. Echo 09/05 Normal LV size. Systolic function is borderline. Mild concentric LV hypertrophy. No wmas. LVEF 50-55%. Normal RV size and function. Mild MR, mild TR. EKG showed sinus tachycardia, rate >99. Low voltage, precordial leads...precordial leads <1.0mV. HR 103. Per cardiology notes, patient has a history of acute heart failure with preserved EF which was precipitated by profound anemia. Now mildly anemia. Recent echo showed borderline normal EF. Dr. Haider was asked to provide input on whether patient's cardiac status appropriate for starting gastric bypass process and per their note, It was felt there was no specific cardiac contraindication to bariatric surgery. ? Eva Vazquez APRN documented in this encounter Plan of Treatment Upcoming Encounters Date Type Department Care Team (Late st Contact Info) Description 12/30/2023 2:45 PM EDT TH Visit (TeleHealth) [place] [address] Michael Morgan, [facility] [address] [place] [address] documented as of this encounter Goals Goal Patient Goal Type Associated Problems Recent Progress Patient-Stated? Author Other (Enter personal goal) Lifestyle On track( 1:14 PM EDT) Riddhi Buchanan RD Note: -Add peanut butter to oatmeal -Continue to add beans to meals as a source of protein and fiber -If can, buy fresh vegetables and fruit from [employer]-sent message with resources -Choose whole grain options [...] Note: Practice STOP and [employer]. [facility] Business Development Manager will send hand-outs. Movement Lifestyle On track( 1:14 PM EDT) Riddhi Buchanan RD Note: Continue to walk stairs and walks when can. Will continue using stairs as it's colder. Look into finding weights free online or at [employer] stores. Could use water-filled milk jugs as weights-a full gallon jug would be 8 lbs. Will look into nearby [facility] 04/16/22 NATHALIA documented as of this encounter Visit Diagnoses Not on filedocumented in this encounter Administered Medications Inactive Administered Medications - up to 3 most recent administrations Medication Order MAR Action Action Date Dose Rate Site dexmedeTOMIDine (Precedex) (4 mcg/mL) bolus injection (Anesthsia) Intravenous, PRN, Starting on Wed03/03/22 at 0758, Until Wed03/03/22 at 1010, Anesthesia Intra-op, Routine Given 03/03/2022 8:50 AM EDT 8 mcg Given 03/03/2022 8:40 AM EDT 12 mcg Given 03/03/2022 7:45 AM EDT 4 mcg dexmedeTOMIDine (Precedex) (4 mcg/mL) in sodium chloride 0.9% 50 mL infusion Intravenous, CONTINUOUS PRN, Starting on Wed03/03/22 at 0758, Until Wed03/03/22 at 1010, Anesthesia Intra-op Restarted 03/03/2022 9:41 AM EDT 0.1 mcg/kg/hr 4.845 mL/hr Rate/Dose Change 03/03/2022 9:19 AM EDT 0.1 mcg/kg/hr 4.84 5 mL/hr New Bag 03/03/2022 7:58 AM EDT 0.2 mcg/kg/hr 9.69 mL/hr fentaNYL (pf) (50 mcg/mL) multi-dose injection Intravenous, PRN, Starting on Wed03/03/22 at 0836, Until Wed03/03/22 at 1010, Anesthesia Intra-op, Routine Given 03/03/2022 8:36 AM EDT 50 mcg glycopyrrolate (Robinul) (0.2 mg/mL) multi-dose injection Intravenous, PRN, Starting on Wed03/03/22 at 0943, Until Wed03/03/22 at 1010, Anesthesia Intra-op, Routine Given 03/03/2022 9:43 AM EDT 0.4 mg insulin regular (HumuLIN R,NovoLIN R) (100 unit/mL) injection vial Subcutaneous, PRN, Starting on Wed03/03/22 at 0915, Until Wed03/03/22 at 1010, Anesthesia Intra-op, Routine Given 03/03/2022 9:15 AM EDT 4 Units ketorolac (Toradol) (30 mg/mL) injection Intravenous, PRN, Starting on Wed03/03/22 at 0942, Until Wed03/03/22 at 1010, Anesthesia Intra-op, Routine Given 03/03/2022 9:42 AM EDT 15 mg lactated ringers infusion 1,000 mL, at 100 mL/hr, Intravenous, CONTINUOUS, Starting on Wed03/03/22 at 0700, Until Wed03/03/22 at 1413, Day of Surgery (Day of Procedure) New Bag 03/03/2022 7:47 AM EDT lidocaine (pf) (Xylocaine) (20 mg/mL) 2% injection syringe Intravenous, PRN, Starting on Wed03/03/22 at 0813, Until Wed03/03/22 at 1010, Anesthesia Intra-op, Routine Given 03/03/2022 8:13 AM EDT 50 mg midazolam (pf) (Versed) (1 mg/mL) multi-dose injection Intravenous, PRN, Starting on Wed03/03/22 at 0758, Until Wed03/03/22 at 1010, Anesthesia Intra-op, Routine Given 03/03/2022 7:44 AM EDT 2 mg neostigmine (Bloxiver) (1 mg/mL) injection Intravenous, PRN, Starting on Wed03/03/22 at 0943, Until Wed03/03/22 at 1010, Anesthesia Intra-op, Routine Given 03/03/2022 9:43 AM EDT 2 mg ondansetron (pf) (Zofran) (2 mg/mL) injection Intravenous, PRN, Starting on Wed03/03/22 at 0824, Until Wed03/03/22 at 1010, Anesthesia Intra-op, Routine Given 03/03/2022 8:24 AM EDT 4 mg propofoL (Diprivan) (10 mg/mL) infusion Intravenous, CONTINUOUS PRN, Starting on Wed03/03/22 at 0817, Until Wed03/03/22 at 1010, Anesthesia Intra-op, Routine New Bag 03/03/2022 8:17 AM EDT 30 mcg/kg/min 34.884 mL/hr propofoL (Diprivan) 10 mg/mL bolus injection (Anesthesia) Intravenous, PRN, Starting on Wed03/03/22 at 0813, Until Wed03/03/22 at 1010, Anesthesia Intra-op Given 03/03/2022 8:13 AM EDT 320 mg rocuronium (Zemuron) (10 mg/mL) multi-dose injection Intravenous, PRN, Starting on Wed03/03/22 at 0816, Until Wed03/03/22 at 1010, Anesthesia Intra-op, Routine Given 03/03/2022 8:16 AM EDT 30 mg succinylcholine (Anectine;Quelicin) (20 mg/mL) injection Intravenous, PRN, Starting on Wed03/03/22 at 0813, Until Wed03/03/22 at 1010, Anesthesia Intra-op, Routine Given 03/03/2022 8:13 AM EDT 160 mg documented in this encounter Care Teams Speech Pathologist Relationship Specialty Start Date End Date Lia Pearson [place] [place] [address] PCP - General Geriatric Medicine 02/09/22 documented as of this encounter
--- OUTSIDE RECORDS SUMMARY | 2023-11-26 19:32 | XMS_ITS | Encounter Summary ---
Author Organization [facility] Address [facility] [place] [address] Care Team Providers Care Structural [employer] Shop Supervisor Name Role Phone Lia Pearson APRN Primary Care Provider [phone] Reason for Visit * Consultation (Routine) - Closed Specialty Diagnoses / Procedures Referred By Della kern Referred To Contact Hematology and Oncology Diagnoses Von Willebrand's disease Lia Pearson APRN [address] [place] [address] [facility] [address] [place] [address] Referral ID Status Reason Start Date Expiration Date V isits Requested Visits Authorized [id number] Closed Consult, Test & Treat 10/15/2021 10/15/2022 1 1 Encounter Details Date Type Department Care Team (Latest Contact Info) Description 01/05/2022 10:30 AM EDT TH Visit (TeleHealth) [place] [address] Claudine Yang MD [facility] HEMATOLOGY/[place] [address] Sandra Siddiqui RN Menorrhagia with irregular cycle (Primary Dx); Iron deficiency anemia due to chronic blood loss Social History Tobacco Use Types Packs/Day Years [...] Progress Notes * Claudine Yang MD - 01/05/2022 10:30 AM EDT Images from the original note were not included. HEMOSTASIS CONSULTATION DATE OF VISIT 01/05/2022 Patient Zenia Worley 1990 REFERRING PHYSICIAN Lia Pearson APRN PRIMARY CARE PHYSICIAN Lia Pearson APRN REASON FOR CONSULTATION Evaluation of bleeding disorder in the setting of menorrhagia, family history of bleeding disorder Due to COVID-19 pandemic this office visit was converted to tele visit. Patient consents to this televisit and understands that the visit may be billed, similar to a clinic office visit. HISTORY OF THE PRESENT ILLNESS Zenia Worley is a 31 y.o. woman with history of morbid obesity, [...] wear her pads for several hours. Her BICYCLE MESSENGER has discussed hysteroscopy with biopsy, transvaginal ultrasound and also Mirena IUD insertion. This is scheduled under OR for Feb 2022. She is coming [facility] on 01/07[facility]22 for pre op evaluation. Her [...] through weight and wellness program. She has lost 17 lbs since last month. Her current weight 415 lbs. She has tried to change her diet, [...] No other family member with bleeding disorder thatshe is aware of. PAST MEDICAL HISTORY Depression Hypothyroidism Menorrhagia Hypertension Mobid obesity PTSD [place] Schizoaffective disorder Hyperlipidemia OPERATIVE PROCEDURES 1. I & D for decubitus sacral wound in 2007 OBSTETRIC HISTORY MEDICATIONS Current Outpatient Medications on File Prior to Visit Medication Sig Dispense Refill ??? semaglutide (Ozempic) 1 mg/dose (4 mg/3 mL) Pen Injector Inject 1 mg subcutaneously once a weekfor 4 doses. 3 mL 3 ??? gabapentin (Neurontin) 300 mg Capsule Take 1 capsule by mouth 2 times daily. 90 capsule ??? ARIPiprazole (Abilify) 5 mg Tablet 5 mg Daily. ??? cyanocobalamin, vitamin B-12, 500 [...] Insulin 100 unit/mL (3 mL) Insulin Pen TOTAL DAILY DOSE 6 UNITS. SLIDING SCALE WITH MEALS: 200-300 1 UNIT, 300-400 2 UNITS ??? Lantus Solostar U-100 Insulin 100 unit/mL (3 mL) pen INJECT 12 UNITS INTO THE SKIN ONCE DAILY AND THEN INJECT 13 UNITS AT BEDTIME ??? levothyroxine (Synthroid) 200 mcg Tablet Take 200 mcg by mouth Daily. ??? losartan (Cozaar) 25 mg Tablet Take 25 mg by mouth daily. ??? metFORMIN XR (Glucophage XR) 500 mg Tablet Sustained Release 24 hr Take 500 mg by mouth daily. ??? metoprolol succinate XL (Toprol-XL) 50 [...] tablet by mouth nightly. ??? ziprasidone (GEODON) 40 mg Capsule ??? norethindrone (Aygestin) 5 mg Tablet Take 1 tablet by mouth daily. 90 tablet 3 No current facility-administered medications on file prior to visit. ADVERSE DRUG REACTIONS Allergies as of 01/05/2022 - Review Complete 11/26/2021 Allergen Reaction Noted ??? Fluoxetine 03/19/2021 FAMILY HISTORY Her sister has history of heavy menses, uterine fibroid. She believed that she also has history of factor 8 disorder but not certain whether it was factor 8 deficiency or elevation. Her other sister also has history of heavy menses. One brother with no bleeding issues. Mother of uncertain cause. On dialysis, hx of heart disease Biological father of uncertain cause. Was on tube feeding at the end. Strong family history of heart disease, obesity, DM Aunt schizoprenic depression. Anxiety. 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 Alcohol: 1-2 twice month REVIEW OF SYSTEMS Fevers/chills/sweats No Recent infections No Unexplained weight loss No Headache/lightheadedness/syncope No Sinus pain/pressure No Oral sores/lesions/bleeding No Sore throat/dysphagia No Nosebleeds No Cough/SOB/chest pain/heart racing No Nausea/vomiting/dyspepsia No Abdominal pain No Diarrhea/constipation No Urinary pain, burning, incontinence No Hematuria No Vaginal discharge/bleeding Vaginal bleeding improved after starting progesterone only pill Skin rashes/ulcers No Back/joint pain/swelling No Leg swelling/pain/redness No Bruising/petechiae/bleeding/melena No Sensory/motor No Polydipsia/polyuria/heat/cold intol No Lumps/bumps/swollen glands No Other Negative except as above PHYSICAL EXAMINATION Weight 415 lbs Height 165 cm LABORATORY STUDIES previous lab 11/06/21 WBC 10.18. Hg 8.3, MCV 79, platelet 411 Ferritin 73 10/02/21 VWF activity elevated 173% VWF antigen elevated 213% Factor 8 activity elevated 231% RADIOGRAPHIC STUDIES None IMPRESSION Zenia Worley is a 31 y.o. woman with history of dysmenorrhea, questionable family history of bleeding disorder, morbid obesity, DM, HTN,hyperlipidemia who was referred for evaluation of bleeding disorder. 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 Factor 8 deficiency is associated with bleeding, but not factor 8 elevation. I reviewed her outside lab which showed no evidence of von Willebrand's disease nor factor 8 deficiency. Elevation of VWF levels and factor 8 activity do not cause bleeding. Sometimes VWF and factor 8 levels can be fluctuated. I will plan to repeat this along with other hemostasis work up (PT, PTT,fibrinogen, VWF panel, factor 8 activity and PFA-100). I asked her to get her lab drawn in 2 days on 01/07/22 when she comes to [facility] for her other appointment. I will call her with result. I also like to have a repeat CBC to follow-up on her anemia. It appeared that there is a pending CBC ordered by her provider from weight and wellness program. She will have those lab drawn all on the same day. It is reassuring that her menorrhagia has now improved on progesterone only pill. She should continue this and I agreed that Mirena IUD is a great option for her. PLAN/RECOMMENDATIONS 1. Bleeding screen lab ordered - I asked her to have her lab drawn on 01/07 when she comes to [facility]. She should avoid NSAIDs in interim. We will call her with result. 2. I asked her to call her sister and figured out about the result of her factor 8 activity (deficiency vs elevation) 3. Continue progesterone only pill for menorrhagia. Agreed with Mirena IUD placement 4. Continue iron supplement until iron deficiency anemia resolves Zenia Worley had the opportunity to ask questions and indicated that all her questions were answered to her satisfaction. We will call her with lab result. I provided care to the patient via VDO. Claudine Yang MD [facility] documented in this encounter Plan of Treatment Upcoming Encounters Date Type Department Care Team (Late st Contact Info) Description 12/30/2023 2:45 PM EDT TH Visit (TeleHealth) [place] [address] Michael Morgan, [facility] [place] [address] documented as of this encounter Goals Goal Patient Goal Type Associated Problems Recent Progress Patient-Stated? Author Other (Enter personal goal) Lifestyle On track( 023 1:14 PM EDT) No Riddhi Wilson RD Note: -Add peanut butter to oatmeal -Continue to add beans to meals as a source of protein and fiber -If can, buy fresh vegetables and fruit from [employer] market-sent message with resources -Choose whole grain [...] sippie cup documented as of this encounter Procedures Procedure Name Priority Date/Time Associated Diagnosis Comments AMB REFERRAL TO HEMATOLOGY AND ONCOLOGY Routine 01/07/2022 3:56 PM EDT Von Willebrand's disease documented in this encounter Visit Diagnoses Diagnosis Menorrhagia with irregular cycle- Primary Excessive or frequent menstruation Iron deficiency anemia due to chronic blood loss Iron deficiency anemia secondary to blood loss (chronic) documented in this encounter Care Teams Structural Steel Shop Supervisor Relationship Specialty Start Date End Date Lia Pearson APRN [address] [place] [address] PCP - General Geriatric Medicine 10/15/21 01/26/22 documented as of this encounter
--- OUTSIDE RECORDS SUMMARY | 2023-11-26 19:32 | XMS_ITS | Encounter Summary ---
Author Organization [facility] [place] [address] Care Team Providers Care Sales Developer Name Role Phone Lia Pearson APRN Primary Care Provider Encounter Details Date Type Department Care Team (Late st Contact Info) Description 03/03/2022 7:30 AM EDT - 03/03/2022 10:15 AM EDT Surgery [place] [address] Sabrina Swain MD [facility] DR OBSTETRICS [place] [address] HYSTEROSCOPY, SURG W/ENDOMETRIAL SAMPLING, POLYPECTOMY (WRVU 4.17) Social History Tobacco Use Types Packs/Day Years [...] Sign Reading Time Taken Comments Blood Pressure 160/109 03/03/2022 10:15 AM EDT Pulse 105 03/03/2022 10:15 AM EDT Temperature 36.2 ??C (97.2 ??F) 03/03/2022 8:27 AM ED T Respiratory Rate 20 03/03/2022 10:1 5 AM EDT Oxygen Saturation 98% 03/03/2022 10: 15 AM EDT Inhaled Oxygen Concentration - - Weight 193.8 kg (427 lb 3.2 oz) 03/03/2022 6:13 AM EDT Height 165.1 cm (5' 5) 03/03/2022 6:13 AM EDT Body Mass Index 71.09 03/03/2022 6:13 AM EDT documented in this encounter Discharge Instructions * Patient Instructions* Marco Patel MD - 03/02/2022 11:36 PM EDT Hysteroscopy/D&C Instructions Follow -Up appointment: 03/25/2022 10:20 AM Sabrina Swain MD [facility] INFORMATION COORDINATOR 5L RECOMMENDATIONS You should have somebody home [...] an egg. *Please call the Department of SPORTS PSYCHOLOGIST @ [phone] for any problem that concerns you. If [...] Swain MD - 03/03/2022 6:[address] Orderly Admission Note Zenia Worley is a 31 [...] 02/15). She is an established patient at [facility], had a plan for pap/emb/ IUD insertion [...] pain, vaginal bleeding , and leg pain. MANAGER CATH LAB Hx Most recent pap: never History of STI: never History of MANAGER CATH LAB pathology: no Reproductive life planning: Currently sexually [...] Operative Note Patient Name: Zenia Worley : [id number] MR#: [id number] Case Date: 03/03/2022 Surgeon: Surgeon(s) and Role: [...] abnormal Pap or cervical biopsy? No Prior MANAGER CATH LAB therapy? ([facility] bx, Cautery, Cryotherapy, Surgery) No History of HPV vaccination? No ICD-10 Diagnosis: Z12.4 Encounter for screening for malignant neoplasm of cervix SPECIMEN TO PATHOLOGY Permanent OR4 [address] abnormal uterine bleeding, BMI 70+ endometrial curettings excision No 03/03/2022 9:49 AM Time specimen removed from patient: 9:05 AM Number of tissue samples (in container) 1 Biospecimen to store? No SPECIMEN [place] PATHOLOGY [place]ermanent [place] 4 [id number] abnormal uterine bleeding, BMI 70+ Myosure Curettings [...] Sabrina Swain MD * Op Note - Sabrian Swain MD - 03/03/2022 8:25 AM EDT [facility] Operative Note ?? Patient Name: Zenia Worley : [id number] MR#: [id number] ?? Case Date: 03/03/2022 ?? Surgeon: Surgeon(s) [...] Pap or cervical biopsy? No ? Prior MANAGER CATH LAB therapy? ([facility] bx, Cautery, Cryotherapy, Surgery) No ? History of HPV vaccination? No ? ICD-10 Diagnosis: Z12.4 Encounter for screening for malignant neoplasm of cervix ? SPECIMEN TO PATHOLOGY ?? Permanent OR4 [id number] abnormal uterine bleeding, BMI 70+ endometrial curettings excision No 03/03/2022 9:49 AM Time specimen removed from patient: 9:05 AM ? Number of tissue samples (in container) 1 ? Biospecimen to store? No ? SPECIMEN TO PATHOLOGY ?? Permanent [place] 4 [id number] abnormal uterine bleeding, BMI 70+ Myosure Curettings [...] placed in the dorsal lithotomy position in [facility].An exam under anesthesia revealed the above noted [...] IUD was inserted to the fundus per triage rn specifications. The strings were trimmed. The tenaculum [...] EDT TH Visit (TeleHealth) [place] [address] Michael Morgan, [facility] [place] [address] documented as of this encounter Goals Goal Patient Goal Type Associated Problems Recent Progress Patient-Stated? Author Other (Enter personal goal) Lifestyle On track( 023 1:14 PM EDT) Riddhi Buchanan RD Note: -Add peanut butter to oatmeal -Continue to add beans to meals as a source of protein and fiber -If can, buy fresh vegetables and fruit from [employer] market-sent message with resources -Choose whole grain [...] Note: Practice STOP and Urge Surfing. Health Dial Lathe Operator will send hand-outs. Movement Lifestyle On track( 023 1:14 PM EDT) Riddhi Buchanan RD Note: Continue to walk stairs and walks when can. Will continue using stairs as it's colder. Look into finding weights free online or at [employer]. Could use water-filled milk jugs as weights-a [...] EDT HPV Routine 03/03/2022 8:39 AM EDT MANAGER CATH LAB CYTOLOGY INTERPRETATION Routine 03/03/2022 8:39 AM EDT MANAGER CATH LAB CYTOLOGY FINAL REPORT Routine 03/03/2022 8:39 AM EDT CYTOPATHOLOGY GYNECOLOGICAL Routine 03/03/2022 8:39 AM EDT Echography Transvaginal Non-Ob (49944) 03/03/2022 7:46 AM EDT Abnormal uterine bleeding Morbid obesity with BMI of 70 and over, adult Insert Intrauterine Device (52016) 03/03/2022 7:46 AM EDT Abnormal uterine bleeding Morbid obesity with BMI of 70 and over, adult CHG CYTOPATH,CERV/VAG,AUTO THIN LAYER,INTERP 03/03/2022 7:46 AM EDT Abnormal uterine bleeding Morbid obesity with BMI of 70 and over, adult Pelvic Examination W Anesth (12407) 03/03/2022 7:46 AM EDT Abnormal uterine bleeding Morbid obesity with BMI of 70 and over, adult Hysteroscopy, W/Endo Bx (46740) 03/03/2022 7:46 AM EDT Abnormal uterine bleeding [...] POC Glucose 239(H) 65 - 199 mg/dL [facility] Comment: Supplemental ranges: <140 mg/dL before meals <180 mg/dL all other times of the day Blood 03/03/2022 10:4 5 AM EDT 03/03/2022 10:45 AM EDT Sabrina Swain MD POINT OF CARE TEST O RDERABLES [facility] [place] [address] * (ABNORMAL) POCT Glucose (03/03/2022 10:10 AM EDT) POC Glucose 242(H) 65 - 199 mg/dL [facility] Comment: Supplemental ranges: <140 mg/dL before meals <180 mg/dL all other times of the day Blood 03/03/2022 10:1 0 AM EDT 03/03/2022 10:10 AM EDT Sabrina Swain MD POINT OF CARE TEST O JET Performing Organization Address [facility] Co de Phone Number [facility] [place] [address] * Specimen to Pathology (03/03/2022 10:05 AM EDT) AP Specimen 03/03/2022 10:0 5 AM EDT 03/03/2022 10:05 AM EDT Narrative [facility] - 03/03/2022 10:05 AM EDT Specimen requisition ordered. ??Separate Pathology report to follow Sabrina Swain MD PATHOLOGY/CYTOLOGY O RDBAN Performing Organization Address [facility] Co de Phone Number [facility] [place] [address] * Specimen to Pathology (03/03/2022 9:50 AM EDT) AP Specimen 03/03/2022 9:50 AM EDT 03/03/2022 9:50 AM EDT Narrative [facility] - 03/03/2022 9:50 AM EDT Specimen requisition ordered. ??Separate Pathology report to follow Sabrina Swain MD PATHOLOGY/CYTOLOGY O RDERAEDWARD Performing Organization Address [facility] Co de Phone Number [facility] [place] [address] * Specimen to Pathology (03/03/2022 9:50 AM EDT) AP Specimen 03/03/2022 9:50 AM EDT 03/03/2022 9:50 AM EDT Narrative [facility] - 03/03/2022 9:50 AM EDT Specimen requisition ordered. ??Separate Pathology report to follow Sabrina Swain MD PATHOLOGY/CYTOLOGY O JET [facility] [place] [address] * Surgical Pathology Report (03/03/2022 9:05 AM EDT) Surgical Pathology Report [id number] ? Location: [facility]; [facility]; A The signing pathologist has (i) [...] DO Verified: ??03/10/2022 15:40 ??Pathologist Performed at: ??-[facility] Dept. of Pathology, [place], [place] SPECIMEN(S) SUBMITTED A - Endometrial curettings, [...] submitted in 5 cassettes labeled B1-B5. ??jnr [facility] 03/03/2022 9:05 AM EDT Sabrina Swain MD PATHOLOGY/CYTOLOGY O JET Performing Organization Address [facility] de Phone Number [facility] [place] [address] * MANAGER CATH LAB Cytology Interpretation (03/03/2022 8:39 AM EDT) [place] Cytology Interpretation [facility] Comment:[place] Cytology Final R eport [place] Cytology Comment Present [facility] Endocervical Component Present [facility] AP Specimen 03/03/2022 8:39 AM EDT 03/12/2022 11:33 AM EDT Sabrina Swain MD PATHOLOGY/CYTOLOGY O JET Performing Organization Address [facility] Co de Phone Number [facility] [place] [address] * [place] Cytology Final Report (03/03/2022 8:39 AM EDT) [place] Cytology Final Report [id number] ? Location: [facility]; [facility]; A The signing pathologist has (i) examined the relevant preparation(s) for the specimen(s) and (ii) rendered or confirmed the diagnosis(es). . ? [place] Final DIAGNOSIS Normal Negative for intraepithelial lesion or malignancy (NILM). For consensus guidelines for the management of cervical cancer screening test results, please see: ?? http://www.asccp.o rg . Electronically signed by: ?Alfredito MONTELONGO(ASCP)Sidra Verified: ??03/12/2022 11:33 ??Retail Sales Clerk Performed at: ??-[facility] Dept. of Pathology, [facility] [place] DISCUSSION Scant cellularity. Partially obscuring blood. HPV [...] Clinical Genomics and Advanced Technology (CGAT) at [facility]. ? - Jeromy Kam, PhD, [facility], Director-[facility] STATEMENT OF ADEQUACY Specimen submitted is satisfactory. Endocervical component present. CLINICAL INFORMATION HPV Option: ?Concurrent HPV and Pap CT/NG Option: ?Yes Preparation: ? Liquid based Pap Specimen Source: ? Cervical/Endocervi qing LMP: ? Unknown Hysterectomy: ?No : ?No : ?No I.U.D.: ?No Pelvic Radiation: ?No Hist Abnl Pap/Biopsy: ?No Prior MANAGER CATH LAB Therapy: ? No . CLINICAL INFORMATION Hist of HPV Vaccine: ? No ICD Diagnosis: ? Z12.4 Encounter for screening for malignant neoplasm of cervix Clinical Data, Significant Therapy and Clinical Impression ?? : ?(not provided) Note: The Pap test is a screening test for cervical cancer with an inherent false-negative rate dependent upon several variables. For further information please contact the [facility] Laboratory. Reference: Paula CLEMENTS. Tube And Rod Straightener of Pap Smear Results. In: Aruna BS, Jorge Luis HH, ed. The Pap Smear. [place]: Alexander, 2002: 71-77. [facility] 03/03/2022 8:39 AM EDT Sabrina Swain MD PATHOLOGY/CYTOLOGY O RDERAEDWARD Performing Organization Address City/State/[facility] Co de Phone Number [facility] [place] [address] * HPV (03/03/2022 8:39 AM EDT) HPV 16 NEGATIVE NEGATIVE [facility] HPV 18 NEGATIVE NEGATIVE [facility] HPV Other HR NEGATIVE NEGATIVE [facility] HPV Interpretation See Comment [facility] Comment: NEGATIVE for high-risk HPV [...] Lab Sabrina Swain MD PATHOLOGY/CYTOLOGY Jeanna CHAUDHARY [facility] [place] [address] * CT/NG PCR (03/03/2022 8:39 AM EDT) Chlamydia Gene Amp Negative Negative [facility] Comment: This assay was performed in the [facility] Clinical Koogame and Advanced Technology Laboratory using the cristina CT/NG Test ([employer] The cristina CT/NG Test is an [...] asymptomatic individuals. Chlamydia Source Cervical [facility] GC Gene Amp Negative Negative [facility] Comment: This assay was performed in the [facility] Clinical Genomics and Advanced Technology Laboratory using the cristina CT/NG Test ([employer] The cristina CT/NG Test is [...] symptomatic and asymptomatic individuals. GC Source Cervical [facility] Cervical 03/03/2022 8:39 AM EDT 03/04/2022 1:34 PM EDT Narrative Resulting Agency Comment Spec In Lab Sabrina Swain MD MICROBIOLOGY - GENER AL ORDERABLES Performing Organization Address [facility] Co de Phone Number [facility] [place] [address] * Cytopathology Gynecological (03/03/2022 8:39 AM EDT) AP Specimen 03/03/2022 8:39 AM EDT 03/03/2022 8:39 AM EDT Narrative [facility] - 03/03/2022 8:39 AM EDT Specimen requisition ordered. ??Separate Pathology report to follow Sabrina Swain MD PATHOLOGY/CYTOLOGY O JET Performing Organization Address [facility] Co de Phone Number [facility] [place] [address] * (ABNORMAL) POCT Glucose (03/03/2022 6:31 AM EDT) POC Glucose 259(H) 65 - 199 mg/dL [facility] Comment: Supplemental ranges: <140 mg/dL before meals <180 mg/dL all other times of the day Blood 03/03/2022 6:31 AM EDT 03/03/2022 6:31 AM EDT Sabrina Swain MD POINT OF CARE TEST O JET Performing Organization Address [facility] Co de Phone Number [facility] [place] [address] documented in this encounter Visit Diagnoses Diagnosis Abnormal uterine bleeding Unspecified disorder of menstruation and other abnormal bleeding from female genital tract Morbid obesity with BMI of 70 and over, adult Morbid obesity Difficult intubation Other specified conditions influencing health status Abnormal uterine bleeding Unspecified disorder of menstruation and other abnormal bleeding from female genital tract Morbid obesity with BMI of 70 and over, adult Morbid obesity documented in this encounter Administered [...] PRN, Starting on Wed03/03/22 at 1026, Until e 03/03/22 at 1413, Pain, Mild to moderate pain [...] PRN, Starting on Wed03/03/22 at 1026, Until 03/03/22 at 1413, Pain, Moderate to severe pain [...] PRN, Starting on Wed03/03/22 at 1026, Until Tu03/03/22 at 1413, Pain, For Mild to Moderate [...] PRN, Starting on Wed03/03/22 at 1026, Until Tu03/03/22 at 1413, Pain, For Moderate to Severe Pain (6-10 out of 10), Hold for respiratory rate less than 10 per minute. Maximum dose 3 mg over one hour including administrations in the OR. If multiple pain medications are ordered, start with HYDROmorphone or morphine and use fentaNYL for breakthrough pain, PACU Recovery, Routine documented in this encounter Care Teams Sales Developer Relationship Specialty Start Date End Date Lia Pearson APRN [address] [place] [address] PCP - General Geriatric Medicine 02/09/22 documented as of this encounter
--- OUTSIDE RECORDS SUMMARY | 2023-11-26 19:32 | XMS_ITS | Encounter Summary ---
Author Organization [facility] [place] [address] Care Team Providers Care Gizzard Puller Name Role Phone Lia Pearson APRN Primary Care Provider [phone] Reason for Visit * Reason Onset Date Comments Medication Refill 05/04/2022 Encounter Details Date Type Department Care Team (Late st Contact Info) Description 05/04/2022 Refill Obstetrics [place] [phone] Sarahi Mercedes MD [facility] DR OBSTETRICS & [place] [address] Abnormal uterine bleeding (AUB) Social History Tobacco [...] EDT TH Visit (TeleHealth) [place] [phone] Michael Morgan, [facility] [place] [address] documented as of this encounter Goals Goal [...] Note: Practice STOP and Urge Surfing. Health Operations Clerk will send hand-outs. Movement Lifestyle On track( 1:14 PM EDT) Riddhi Buchanan RD Note: Continue to walk stairs and walks when can. Will continue using stairs as it's colder. Look into finding weights free online or at [employer] stores. Could use water-filled milk jugs as weights-a full gallon jug would be 8 lbs. Will look into nearby rec center 04/16/22 documented as of this encounter Visit Diagnoses Diagnosis Abnormal uterine bleeding (AUB) documented in this encounter Care Teams Gizzard Puller Relationship Specialty Start Date End Date Lia Pearson APRN [address] [place] [address] PCP - General Geriatric Medicine 02/09/22 documented as of this encounter
--- OUTSIDE RECORDS SUMMARY | 2023-11-26 19:32 | XMS_ITS | Encounter Summary ---
[place] [address] Care Team Providers Care It Engineer Name Role Phone Lia Pearson APRN Primary Care Provider [phone] Encounter Details Date Type Department Care Team (Late st Contact Info) Description 01/09/2022 Telephone Hematology [place] [phone] Sandra Siddiqui RN Social History Tobacco Use Types Packs/Day [...] encounter Miscellaneous Notes * Telephone Encounter - Sandra Siddiqui RN - 01/09/2022 11:19 AM EDT TC to patient. Patient will have labs drawn on 02/20 when she returns to . Reviewed avoiding NSAIDS and fasting. 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 Did not have an exact number. Sandra Siddiqui RN MSN ===View-only below this line=== ----- Message ----- From: Claudine Yang MD Sent: 01/08/2022 3:01 PM EDT To: Sandra Siddiqui RN Subject: bleeding screen - not done Sandra: She did not have the bleeding screen draw on 01/07 when she came to . It look like that she is coming back to on 02/20, can you ask her to complete the lab testing and make sure that she does not take NSAID for a week before her lab? Apparently her sis has factor 8 disorder- not certain if deficiency or elevation. She supposed to ask her sister- can you ask her if she has figured out? Thank you, Claudine documented in this encounter Plan of Treatment Upcoming Encounters Date Type Department Care Team (Late st Contact Info) Description 12/30/2023 2:45 PM EDT TH Visit (TeleHealth) [place] [address] Michael Morgan, [facility] [address] documented as of this encounter Goals Goal Patient Goal Type Associated Problems Recent Progress Patient-Stated? Author Other (Enter personal goal) Lifestyle On track( 023 1:14 PM EDT) Riddhi Buchanan RD Note: -Add peanut butter to oatmeal -Continue to add beans to meals as a source of protein and fiber -If can, buy fresh vegetables and fruit from [employer]-sent message with resources -Choose whole grain [...] on filedocumented in this encounter Care Teams It Engineer Relationship Specialty Start Date End Date Lia Pearson APRN [address] [place] [address] PCP - General Geriatric Medicine 10/15/21 01/26/22 documented as of this encounter
--- OUTSIDE RECORDS SUMMARY | 2023-11-26 19:32 | XMS_ITS | Encounter Summary ---
[place] [address] Care Team Providers Care [employer] Thread Winder Name Role Phone Lia Pearson APRN Primary Care Provider [phone] Reason for Visit * Reason Onset Date Comments Appointment 02/24/2022 Encounter Details Date Type Department Care Team (Late st Contact Info) Description 02/24/2022 Telephone Weight and Wellness at [address] [phone] Zenia Sullivan Appointment Social History Tobacco Use Types Packs/Day Years [...] encounter Miscellaneous Notes * Telephone Encounter - Zenia Sullivan - 02/24/2022 8:56 AM EDT Return in about 3 months (around 05/23/2022) for MD [place] or clinic, //ACT, //HLP - all three. documented in this encounter Plan of Treatment Upcoming Encounters Date Type Department Care Team (Late st Contact Info) Description 12/30/2023 2:45 PM EDT TH Visit (TeleHealth) [place] [address] Michael Morgan, DO [facility] [place] [address] documented as of this encounter Goals Goal Patient Goal Type Associated Problems Recent Progress Patient-Stated? Author Other (Enter personal goal) Lifestyle On track( 1:14 PM EDT) Riddhi Buchanan RD Note: -Add peanut butter to oatmeal -Continue to add beans to meals as a source of protein and fiber -If can, buy fresh vegetables and fruit from [employer]-sent message with resources -Choose whole grain [...] Note: Practice STOP and Urge Surfing. Health Pants Closer will send hand-outs. Movement Lifestyle On track( 1:14 PM EDT) Riddhi Buchanan RD Note: Continue to walk stairs and walks when can. Will continue using stairs as it's colder. Look into finding weights free online or at [employer] stores. Could use water-filled milk jugs as weights-a full gallon jug would be 8 lbs. Will look into nearby rec center 04/16/22 NATHALIA documented as of this encounter Visit Diagnoses Not on filedocumented in this encounter Care Teams [employer]x Thread Winder Relationship Specialty Start Date End Date Lia Pearson APRN [address] [place] [address] PCP - General Geriatric Medicine 02/09/22 documented as of this encounter
--- OUTSIDE RECORDS SUMMARY | 2023-11-26 19:32 | XMS_ITS | Encounter Summary ---
Author Organization [facility] Address [facility] [place] [address] Care Team Providers Care Turn Machine Operator Name Role Phone Lia Pearson APRN Primary Care Provider Encounter Details Date Type Department Care Team (Latest Contact Info) Description 03/03/2022 7:12 AM EDT - 03/03/2022 11:59 PM EDT Hospital [place] [address] Sabrina Fisher MD [facility] DR OBSTETRICS [place] [address] Abnormal uterine bleeding; Morbid obesity with BMI [...] on file documented as of this encounter Medications at Time of Discharge [...] 7 days. Takes Wednesday mornings 02/06/2022 03/24/2023 ergocalciferoL, vitamin D2, (vitamin D2) [...] 11/25/2021 10/14/2022 documented as of this encounter Plan of Treatment Upcoming Encounters Date Type Department Care Team (Late st Contact Info) Description 12/30/2023 2:45 PM EDT TH Visit (TeleHealth) [place] [address] Michael Morgan, [facility] [place] [address] documented as of this encounter Goals Goal Patient Goal Type Associated Problems Recent Progress Patient-Stated? Author Other (Enter personal goal) Lifestyle On track( 1:14 PM EDT) Riddhi Buchanan RD Note: -Add peanut butter to oatmeal -Continue to add beans to meals as a source of protein and fiber -If can, buy fresh vegetables and fruit from [employer]-sent message with resources -Choose whole grain options [...] Note: Practice STOP and Urge Surfing. Health Title Lawyer will send hand-outs. Movement Lifestyle On track( 1:14 PM EDT) Riddhi Bucahnan RD Note: Continue to walk stairs and walks when can. Will continue using stairs as it's colder. Look into finding weights free online or at [employer] stores. Could use water-filled milk jugs as weights-a full gallon jug would be 8 lbs. Will look into nearby rec center 04/16/22 NATHALIA documented as of this encounter Procedures Procedure Name Priority Date/Time Associated Diagnosis Comments US TRANSVAGINAL NON OB Routine 03/03/2022 8:47 AM EDT Abnormal uterine bleeding Morbid obesity with BMI of 70 and over, adult documented in this encounter Results * US Transvaginal Non OB (03/03/2022 8:47 AM EDT) Anatomical Region Laterality Modality Ultrasound 03/03/2022 7:14 AM EDT Impressions 03/03/2022 9:38 AM EDT 1. ??Limited visualization secondary to patient body habitus. 2. ??Diffusely thickened and irregular endometrium with increased vascularity. Differential diagnosis would include endometrial hyperplasia, versus malignancy. 3. ??Normal size and appearance of bilateral ovaries with the limits of visualization. No adnexal masses. I have personally reviewed the image(s) and the resident's interpretation and agree with the findings, Deneen Ribera MD at 03/03/2022 9:30 AM Thank you for letting us participate in the care of this patient. If you are a health care provider and have any questions regarding this report, please contact the number above. For patients who have questions, please contact the health manager respiratory care that requested your imaging first. ? Deneen Ribera, Staff Physician Electronically Signed Final Report ?? 03/03/2022 09:37 am Narrative 03/03/2022 9:38 AM EDT Gynecological Report ?(Signed Final 03/03/2022 09:37 am) PATIENT INFO: ID #: ? [id number] ?: ??[birth year] (31 yrs)(F) Name: ? MIGUEL WORLEY ?Visit Date: 03/03/2022 07:14 am PERFORMED BY: Performed By: ? Stefany Thomason RDMS Attending: ?Mounika HERNANDEZ, Deneen Arias Resident: ? Drew Barry DO Referred By: ?SABRINA FISHER Location: ? [place] SERVICE(S) PROVIDED: UTV - Transvaginal - [id number] ?[id number] UPELIM - Pelvis Limited - [id number] ? [id number] INDICATIONS: daily vaginal bleeding x >10 years TECHNIQUE/SCAN QUALITY: Technique: ?Transducer ID#:[id number] -------- HISTORY: -------- Age: ?? 31 ------- UTERUS: ------- Uterus: ? Visualized Position: ?? Anteverted Size (cm) ?L: ??11.6 ?W: ?? 8.9 ?H: ??7.1 ENDOMETRIUM: Endometrium: ?Thickened, irregular, vascular Thickness(mm): ?27.0 RIGHT OVARY: Status: ?? Visualized Size (cm) ?L: ??1.7 ? W: ?? 1.7 ?H: ??1.8 Vol (ml): ?2.7 Morphology: ?Normal appearance Comment: ? Ovary was not seen transvaginally, therefore ?transabdominal ultrasound was performed. LEFT OVARY: Status: ?? Visualized Size (cm) ?L: ??1.9 ? W: ?? 1.6 ?H: ??1.1 Vol (ml): ?1.8 Morphology: ?Normal appearance Comment: ? Ovary was not seen transvaginally, therefore ?transabdominal ultrasound was performed. Procedure Note Deneen Ribera MD - 03/03/2022 Gynecological Report (Signed Final 03/03/2022 09:37 am) PATIENT INFO: ID #: [id number] : [birth year] (31 yrs)(F) Name: MIGUEL WORLEY Visit Date: 03/03/2022 07:14 am PERFORMED BY: Performed By: Stefany Thomason RDMS Attending: Deneen Ribera MD Resident: Drew Barry DO Referred By: SABRINA FISHER Location: [place] SERVICE(S) PROVIDED: UTV - Transvaginal - [id number] UPELIM - Pelvis Limited - [id number] INDICATIONS: daily vaginal bleeding x >10 years TECHNIQUE/SCAN QUALITY: Technique: Transducer ID#:[id number] -------- HISTORY: -------- Age: 31 ------- UTERUS: ------- Uterus: Visualized Position: Anteverted Size (cm) L: 11.6 W: 8.9 H: 7.1 ENDOMETRIUM: Endometrium: Thickened, irregular, vascular Thickness(mm): 27.0 RIGHT OVARY: Status: Visualized Size (cm) L: 1.7 W: 1.7 H: 1.8 Vol (ml): 2.7 Morphology: Normal appearance Comment: Ovary was not seen transvaginally, therefore transabdominal ultrasound was performed. LEFT OVARY: Status: Visualized Size (cm) L: 1.9 W: 1.6 H: 1.1 Vol (ml): 1.8 Morphology: Normal appearance Comment: Ovary was not seen transvaginally, therefore transabdominal ultrasound was performed. IMPRESSION 1. Limited visualization secondary to patient body habitus. 2. Diffusely thickened and irregular endometrium with increased vascularity. Differential diagnosis would include endometrial hyperplasia, versus malignancy. 3. Normal size and appearance of bilateral ovaries with the limits of visualization. No adnexal masses. I have personally reviewed the image(s) and the resident's interpretation and agree with the findings, Deneen Ribera MD at 03/03/2022 9:30 AM Thank you for letting us participate in the care of this patient. If you are a health care provider and have any questions regarding this report, please contact the number above. For patients who have questions, please contact the health manager respiratory care that requested your imaging first. Deneen Ribera, Staff Physician Electronically Signed Final Report 03/03/2022 09:37 am Sabrina Fisher MD IMG US PELVIC ORDERA BLES documented in this encounter Visit Diagnoses Diagnosis Abnormal uterine bleeding Unspecified disorder of menstruation and other abnormal bleeding from female genital tract Morbid obesity with BMI of 70 and over, adult Morbid obesity documented in this encounter Care Teams Turn Machine Operator Relationship Specialty Start Date End Date Lia Pearson APRN [address] [place] [address] PCP - General Geriatric Medicine 02/09/22 documented as of this encounter
--- OUTSIDE RECORDS SUMMARY | 2023-11-26 19:32 | XMS_ITS | Encounter Summary ---
Author Organization [facility] [place] [address] Care Team Providers Care Color Corrector Name Role Phone Lia Pearson APRN Primary Care Provider [phone] Reason for Visit * Reason Onset Date Comments Medication Refill 05/04/2022 Encounter Details Date Type Department Care Team (Late st Contact Info) Description 05/04/2022 Refill Obstetrics [place] [phone] Sarahi Mercedes MD [facility] DR OBSTETRICS & [place] [address] Abnormal uterine bleeding (AUB) Social History Tobacco [...] EDT TH Visit (TeleHealth) [place] [phone] Michael Morgan, [facility] [place] [address] documented as of this encounter Goals Goal [...] Note: Practice STOP and Urge Surfing. Health Pattern Data Operator will send hand-outs. Movement Lifestyle On track( 1:14 PM EDT) Riddhi Buchanan RD Note: Continue to walk stairs and walks when can. Will continue using stairs as it's colder. Look into finding weights free online or at [employer] stores. Could use water-filled milk jugs as weights-a full gallon jug would be 8 lbs. Will look into nearby rec center 04/16/22 documented as of this encounter Visit Diagnoses Diagnosis Abnormal uterine bleeding (AUB) documented in this encounter Care Teams Color Corrector Relationship Specialty Start Date End Date Lia Pearson APRN [address] [place] [address] PCP - General Geriatric Medicine 02/09/22 documented as of this encounter
--- OUTSIDE RECORDS SUMMARY | 2023-11-26 19:32 | XMS_ITS | Encounter Summary ---
[place] [address] Care Team Providers Care Seafood Manager Name Role Phone Lia Pearson APRN Primary Care Provider [phone] Encounter Details Date Type Department Care Team (Late st Contact Info) Description 03/19/2022 Telephone Weight and Wellness at [address] [address] Angela Pruett, PhD [facility] [place] [address] Social History Tobacco Use Types Packs/Day Years [...] Telephone Encounter - Angela Pruett, PhD - 03/19/2022 11:54 AM EDT BEHAVIORAL MEDICINE ASSESSMENT BARIATRIC SURGERY - CONTACT WITH MENTAL HEALTH PROVIDER Ciro BALDERAS RD WEIGHT AND WELLNESS AT [address] [address] Dept: [phone] 03/19/2022 11:54 AM Spoke with Zenia Worley's mental health provider, Dale Friend, regarding Zenia's readiness for bariatric surgery. In summary, Morgain did endorse concerns with Zenia proceeding with surgery, but also reported Dale has been making improvements. She expressed concerns about Zenia's health and believes the surgery could be beneficial in many ways. Dale's responses to questions about Zenia's mental health care are below: 1. When did you begin providing care to the patient? Within the past year 2. Does the patient consistently attend appointments with you? yes, communicates very well about her schedule 3. Has the patient been psychologically stable during that time? yes - though pt does have ongoing depressive and trauma sxs, therapist recently learned about the hallucinations, but medications appear to help with these 4. Is the patient compliant with the treatment plan? yes 5. Will you be following the patient post-surgery? yes, could increase frequency of visits as needed after surgery 6. Has the patient been hospitalized for mental health reasons? yes, in the past, not since moving to [place] 7. Are you aware of any binging or purging behaviors by the patient? none that Dale is aware of,although she shared she has been curious about limited weight loss despite change that Zenia says she has been making 8. ETOH/substance abuse: none recently 9. Please list any reservations about the patient proceeding with the surgery: Dale shared that she believes Zenia could benefit from surgery medically, understands that pt has many other risk factors and surgery could make her mental health worse. Dale shared that Zenia has endoresd periods of dissociation, may have been r/t ETOH use, but not in many months. Ishan said pt is working on building more of a support network, but trauma interferes with this d/t difficulties with trust. Pt has been getting to know some people in her building, possible healthyfriendships with neighbors who are willing to help with transportation and furniture. One of these women has offered to help with post-surgical support. Another elderly neighbor has been helpful and willing to check in after surgery, and another who is making her art and they sometimes share meals. Discussed that Zenia has at least 3 months remaining in the program, so it is likely that a [facility] Psychologist will be in touch later to coordinate further as Zenia progresses in the program, if she opts to continue to pursue bariatric surgery. Angela Pruett, PhD documented in this encounter Plan of Treatment Upcoming Encounters Date Type Department Care Team (Late st Contact Info) Description 12/30/2023 2:45 PM EDT TH Visit (TeleHealth) Interventional Radiology at [facility] [place] [address] Michael Morgan, [facility] [place] [address] documented as of this encounter Goals Goal Patient Goal Type Associated Problems Recent Progress Patient-Stated? Author Other (Enter personal goal) Lifestyle On track( 023 1:14 PM EDT) Riddhi Buchanan RD Note: -Add peanut butter to oatmeal -Continue to add beans to meals as a source of protein and fiber -If can, buy fresh vegetables and fruit from [employer]-sent message with resources -Choose whole grain [...] Note: Practice STOP and Urge Surfing. Health Truck Service Technician will send hand-outs. Movement Lifestyle On track( 023 1:14 PM EDT) Riddhi Buchanan RD Note: Continue to walk stairs and walks when can. Will continue using stairs as it's colder. Look into finding weights free online or at [employer] stores. Could use water-filled milk jugs as weights-a full gallon jug would be 8 lbs. Will look into nearby rec center 04/16/22 NATHALIA documented as of this encounter Visit Diagnoses Not on filedocumented in this encounter Care Teams Seafood Manager Relationship Specialty Start Date End Date Lia Pearson APRN [address] [place] [address] PCP - General Geriatric Medicine 02/09/22 documented as of this encounter
--- OUTSIDE RECORDS SUMMARY | 2023-11-26 19:32 | XMS_ITS | Encounter Summary ---
[place] [address] Care Team Providers Care Final Assembler Boat Name Role Phone Lia Pearson APRN Primary Care Provider [phone] Encounter Details Date Type Department Care Team (Latest Contact Info) Description 01/21/2022 2:30 PM EDT TH Visit (TeleHealth) Weight and Wellness at [address] [phone] Davidson Allen Obesity, unspecified classification, unspecified obesity type, unspecified whether serious comorbidity [...] this encounter Patient Instructions * Patient Instructions* Davidson Allen - 01/21/2022 2:30 PM EDT It was good to tlak with you Zenia. You're ready to start working on some habit changes. You have good self-awareness and are also doing well walking your dog regularly. I'll send you the Urge Surfing information as we discussed. I look forward to talking with you more. Be well, Davidson Allen Health Cupola Charger documented in this encounter Progress Notes * Davidson Allen - 01/21/2022 2:30 PM EDT Zenia Worley is here today at the request of Dr. Waller for lifestyle coaching for weight control and overall health. FIRST VISIT 1. Clarify BIG WHY: improve health and mobility 2. Assess Strengths: self-aware 3. Review Healthy habits guidelines for exercise, sleep, and stress- see below 4. Teach SMART goals and practice setting one(connect to BIG WHY, pillars). 5. Remind Patient to review info in Welcome Packet: 6. Review Pathways (note any questions): Review specific goals if any from provider Goals ??? Bariatric behaviors 1. Eating Slowly [...] -When having a snack, focus on protein Exercise Walking for an hour most days Sleep Not discussed Stress ` Interested in learning positive ways to managecstress like nbdfulness Self-monitoring What are you doing now? If no personal accountability process, what can you add? [x]Food log: [] daily [x] intermittent []Weigh-ins: [] daily [] weekly [x]Exercise log [x]Gratitude journal []Other: Food Behaviors (optional): Drinking less sugar and juice Future follow-up with health community living coach will address identified areas of concern: [x] Exercise [x]Sleep [x]Stress [x]Accountability []Food Behaviors []Self-compassion Below are guidelines for optimal health that will help you, OVER TIME, to achieve. We do not expectyou to adopt everything all at once or make huge leaps. We don't even expect that you will achieve them all because nobody is perfect! Nutrition: Whole food, quality diet, more plants. (See the back page of your Welcome Book). This juana general recommendation for all patients. Your dietitian and provider will help make more specificrecommendations for you if appropriate. Avoid drinking your calories in the form of fruit juice, soda pop or other sweetened beverages. Choose water. Activity: to maintain weight loss evidence supports 360-420 minutes per week (60min daily). Each week, 1 hour of this time should be divided into 2 or 3 sessions of resistance (weight) training. The rest would be cardio. We do not know the threshold for non-structured activity, but if you are taking about 10,000 steps daily, you may be meeting this goal for cardiac activity. You can build your activity level slowly and methodically. Your Weight&Wellness team will help you develop a plan that works for you. Sleep: 7-8 hours of restful sleep per night with minimal or no interruptions. If this is not happening, talk to your provider about how we can help. Self-monitoring: most people benefit from some form of accountability. This can be: food tracking- either in an rebecca or on paper, monitoring weight daily or monthly, exercise tracking. Pick something to track. Stress management: managing stress comes in many different forms from meditation to exercise to simply increasing mindfulness throughout the day. Your health community living coach is well-equipped to guide you to find something to look forward to everyday. Eating behaviors: many people benefit from restricting the hours in which they eat. You can choose an eating window of 8-12 hours to start. Make a pact with yourself that you will not take in anything with caloric content outside this window. Your curtain stretcher may make further recommendations documented in this encounter Plan of Treatment Upcoming Encounters Date Type Department Care Team (Late st Contact Info) Description 12/30/2023 2:45 PM EDT TH Visit (TeleHealth) [place] [address] Michael Morgan, [facility] [place] [address] documented as of this encounter Goals Goal Patient Goal Type Associated Problems Recent Progress Patient-Stated? Author Other (Enter personal goal) Lifestyle On track( 023 1:14 PM EDT) Riddhi Buchanan RD Note: -Add peanut butter to oatmeal -Continue to add beans to meals as a source of protein and fiber -If can, buy fresh vegetables and fruit from [employer]-sent message with resources -Choose whole grain options [...] Note: Practice STOP and Urge Surfing. Health Cupola Charger will send hand-outs. documented as of this encounter Visit Diagnoses Diagnosis Obesity, unspecified classification, unspecified obesity type, unspecified whether serious comorbidity present documented in this encounter Care Teams Final Assembler Boat Relationship Specialty Start Date End Date Lia Pearson APRN [address] [place] [address] PCP - General Geriatric Medicine 10/15/21 01/26/22 documented as of this encounter
--- OUTSIDE RECORDS SUMMARY | 2023-11-26 19:32 | XMS_ITS | Encounter Summary ---
Author Organization [facility] [place] [address] Care Team Providers Care Telephone Solicitor Supervisor Name Role Phone Lia Pearson APRN Primary Care Provider [phone] Encounter Details Date Type Department Care Team (Late st Contact Info) Description 02/27/2022 Interpretation Only Radiology [address] [place] [address] [place] [phone] Unknown None Social History Tobacco Use Types Packs/Day Years [...] EDT TH Visit (TeleHealth) [place] [address] Michael Morgan, DO [facility] [place] [address] documented as of this encounter Goals Goal Patient Goal Type Associated Problems Recent Progress Patient-Stated? Author Other (Enter personal goal) Lifestyle On track( 023 1:14 PM EDT) No Riddhi Wilson RD Note: -Add peanut butter to oatmeal -Continue to add beans to meals as a source of protein and fiber -If can, buy fresh vegetables and fruit from [employer]-sent message with resources -Choose whole grain options if available -When having a snack, focus on protein Bariatric behaviors Lifestyle On track( 023 1:14 PM EDT) Riddhi Buchanan, RD Note: Eating Slowly and taking 20-30 [...] Note: Practice STOP and Urge Surfing. Health Global Account Director will send hand-outs. Movement Lifestyle On track( 023 1:14 PM EDT) Riddhi Buchanan, RD Note: Continue to walk stairs and walks when can. Will continue using stairs as it's colder. Look into finding weights free online or at [employer] stores. Could use water-filled milk jugs as weights-a full gallon jug would be 8 lbs. Will look into nearby rec center 04/16/22 NATHALIA documented as of this encounter Procedures Procedure Name Priority Date/Time Associated Diagnosis Comments DH OR ENDOSCOPY Routine 02/27/2022 documented in this encounter Results * DH OR Endoscopy (02/27/2022) Anatomical Region Laterality Modality Other 02/27/2022 Narrative 02/27/2022 12:00 AM EDT Photographs - Images Procedure Note Unknown - 03/03/2022 Photographs - Images Unknown EA IMAGES documented in this encounter Visit Diagnoses Not on filedocumented in this encounter Care Teams Telephone Solicitor Supervisor Relationship Specialty Start Date End Date Lia Pearson APRN [address] [place] [address] PCP - General Geriatric Medicine 02/09/22 documented as of this encounter
--- OUTSIDE RECORDS SUMMARY | 2023-11-26 19:33 | XMS_ITS | Encounter Summary ---
Author Organization [facility] Address [address] [place] [address] Care Team Providers Care Computer Game Designer Name Role Phone Lisa Yan VENEER CLIPPER Unavailable [phone] Lisa Yan VENEER CLIPPER Unavailable [phone] Lia Pearson APRN Primary Care Provider [phone] Reason for Visit * Reason Onset Date Comments Blood Glucose Review 08/30/2023 Encounter Details Date Type Department Care Team (Late st Contact Info) Description 08/30/2023 Telephone [facility] Endocrinology [address] [place] [phone] Lilibeth Arguello, TOM Blood Glucose Review Social History Tobacco Use Types Packs/Day Years Used Date Smoking Tobacco: Former Smokeless Tobacco: Never Comments:quit in march Alcohol Use Standard Drinks/Week Comments Not Currently 0 (1 standard drink = 0.6 oz pur e alcohol) Interpersonal Safety Answer Date Record ed Physically Hurt Never 07/31/2020 Verbally Threaten Not on file 07/31/2020 Sex and Gender Information Value Date Recorded Sex Assigned at Female 12/31/2021 11:23 EDT Gender Identity Female 09/11/2021 16:08 EDT Sexual Orientation Asexual 12/31/2021 11 :23 EDT documented as of this encounter Miscellaneous Notes * Telephone Encounter - Lisa Yan VENEER CLIPPER - 08/31/2023 1034 EDT See eval encounter. * Telephone Encounter - Lilibeth Arguello RN - 08/30/2023 1430 EDT Downloaded and scanned into patient's chart. * Telephone Encounter - Lilibeth Arguello RN - 08/30/2023 1430 EDT ----- Message from Lisa Yan NP sent at 08/27/2023 9:12 EDT ----- Please print whitley data. Thanks. documented in this encounter Plan of Treatment Upcoming Encounters Date Type Department Care Team (Late st Contact Info) Description 01/28/2024 10:30 EDT Office Visit [facility] Endocrinology [address] [place] [address] [phone] Lisa Yan NP [address] [place] [phone] documented as of this encounter Visit Diagnoses Not on filedocumented in this encounter Care Teams Computer Game Designer Relationship Specialty Start Date End Date Lia Pearson APRN [address] [place] [phone] PCP - General Family Medicine - [facility] Medicine 09/26/21 Lisa Yan NP [address] [place] [phone] Nurse Practitioner Endocrinology, Diabetes and Metabolism 03/19/21 Lisa Yan NP [address] [place] [phone] Nurse Practitioner Endocrinology, Diabetes and Metabolism 06/06/21 documented as of this encounter
--- OUTSIDE RECORDS SUMMARY | 2023-11-26 19:33 | XMS_ITS | Encounter Summary ---
Author Organization [facility] Address [address] [place] [address] Care Team Providers Care Transformer Maker Name Role Phone Lisa Yan REAL ESTATE ACCOUNT EXECUTIVE Unavailable [phone] Lisa Yan REAL ESTATE ACCOUNT EXECUTIVE Unavailable [phone] Lia Pearson APRN Primary Care Provider [phone] Reason for Visit * Reason Onset Date Comments Blood Sugar Problem 08/17/2023 Encounter Details Date Type Department Care Team (Late st Contact Info) Description 08/17/2023 Telephone [facility] [place] [address] [place], [place] [phone] Shari Hsu RN Blood Sugar Problem Social History Tobacco Use Types Packs/Day Years [...] Notes * Telephone Encounter - Lisa Yan REAL ESTATE ACCOUNT EXECUTIVE - 08/17/2023 8958 EDT Sent Wig[employer] message. If going to work/higher activity after humalog dose, give half of this dose prior to. * Telephone Encounter - Shari Hsu RN - 08/17/2023 1535 EDT Zenia called - having issues with her BS dropping quickly- woke this am with bg 350 gave herself the humalog and a couple hrs later became feeling poorly, lt headed and bg was down to 350 then 119- also did a 1 1/2 hr dance class Similar occurrence the other day when went to work - was doing a lot of physical activity and bg went down quickly Should she hold insulin if going to do a lot of exertion ? USES [employer] documented in this encounter Plan of Treatment Upcoming Encounters Date Type Department Care Team (Late st Contact Info) Description 01/28/2024 10:30 EDT Office Visit [facility] Endocrinology [address] [place] [address] [phone] Lisa Yan NP [address] [place], [place] [phone] documented as of this encounter Visit Diagnoses Not on filedocumented in this encounter Care Teams Transformer Maker Relationship Specialty Start Date End Date Lia Pearson APRN [address] [place] [address] [phone] PCP - General Family Medicine - [facility] Medicine 09/26/21 Lisa Yan NP [address] [place] [phone] Nurse Practitioner Endocrinology, Diabetes and Metabolism 03/19/21 Lisa Yan NP [address] [place] [phone] Nurse Practitioner Endocrinology, Diabetes and Metabolism 06/06/21 documented as of this encounter
--- OUTSIDE RECORDS SUMMARY | 2023-11-26 19:33 | XMS_ITS | Encounter Summary ---
Author Organization [facility] Address [address] [place] [address] Care Team Providers Care Curb Attendant Name Role Phone Lisa Yan MANAGER TRANSITION Unavailable [phone] Lisa Yan MANAGER TRANSITION Unavailable [phone] Lia Pearson APRN Primary Care Provider [phone] Reason for Visit * Reason Onset Date Comments Medications Refill 07/06/2023 Encounter Details Date Type Department Care Team (Late st Contact Info) Description 07/06/2023 Refill [facility] [place] [address] [place] [phone] Shari Hsu RN Medications Refill Social History Tobacco Use Types Packs/Day Years [...] encounter Miscellaneous Notes * Telephone Encounter - Shari Hsu RN - 07/06/2023 0093 EST Request from [facility] to refill trulicity- pt messaged as to what dose she's on documented in this encounter Plan of Treatment Upcoming Encounters Date Type Department Care Team (Late st Contact Info) Description 01/28/2024 10:30 EDT Office Visit [facility] Endocrinology [address] [place] [address] [phone] Lisa Yan MANAGER TRANSITION [address] [place] [address] [address] [place] [phone] documented as of this encounter Visit Diagnoses Not on filedocumented in this encounter Care Teams Curb Attendant Relationship Specialty Start Date End Date Lia Pearson APRN [address] [place] [address] [phone] PCP - General Family Medicine [facility] Medicine 09/26/21 Lisa Yan, MANAGER TRANSITION [address] [place] [phone] Nurse Practitioner Endocrinology, Diabetes and Metabolism 03/19/21 Lisa Yan MANAGER TRANSITION [address] [place] [phone] Nurse Practitioner Endocrinology, Diabetes and Metabolism 06/06/21 documented as of this encounter
--- OUTSIDE RECORDS SUMMARY | 2023-11-26 19:33 | XMS_ITS | Encounter Summary ---
Author Organization [facility] Address [address] [place] [address] Care Team Providers Care Medical Affairs Manager Name Role Phone Lisa Yan HANGAR ATTENDANT Unavailable [phone] Lisa Yan HANGAR ATTENDANT Unavailable Lia Pearson APRN Primary Care Provider [phone] Encounter Details Date Type Department Care Team (Late st Contact Info) Description 08/13/2023 9:50 EDT Phlebotomy Only [facility] - Outpatient Phlebotomy Drawing [address] [place] [address] [place], [facility] [place] Type 2 diabetes mellitus with hyperglycemia, with long-term current use of insulin ([facility]); Other specified hypothyroidism Social History Tobacco Use Types Packs/Day Years [...] :23 EDT documented as of this encounter Plan of Treatment Upcoming Encounters Date Type Department Care Team (Late st Contact Info) Description 01/28/2024 10:30 EDT Office Visit [facility] Endocrinology [address] [place] [address] Lias Yan, HANGAR ATTENDANT [address] [facility] [address] [place] [phone] documented as of this encounter Procedures Procedure Name Priority Date/Time Associated Diagnosis Comments THYROID CASCADE Routine 08/13/2023 9:58 EDT Type 2 diabetes mellitus with hyperglycemia, with long-term current use of insulin ([facility]) Other specified hypothyroidism URINE [id number]-EP-MWGPCEFPKR RATIO (ACR) Routine 08/13/2023 9:58 EDT Type 2 diabetes mellitus with hyperglycemia, with long-term current use of insulin ([facility]) HEMOGLOBIN A1C Routine 08/13/2023 9:58 EDT Type 2 diabetes mellitus with hyperglycemia, with long-term current use of insulin ([facility]) LIPID PROFILE (INCLUDES CHOLESTEROL, TRIGLYCERIDES, HDL, LDL) Routine 08/13/2023 9:58 EDT Type 2 diabetes mellitus with hyperglycemia, with long-term current use of insulin ([facility]) COMPREHENSIVE METABOLIC PANEL (CMP) Routine 08/13/2023 9:58 EDT Type 2 diabetes mellitus with hyperglycemia, with long-term current use of insulin ([facility]) documented in this encounter Results * (ABNORMAL) URINE XABADVI-ZU-[id number] RATIO (ACR) (08/13/2023 9:58 EDT) Albumin, Urine 74.1 See Note mg/dL 2023 17:16 [facility] Comment: NOTE: Reference range not established Creatinine, Urine 44.5 See Note mg/dL 08/13/2023 17:16 [facility] Comment: NOTE: Reference range not established Lab Urine Albumin to Creatinine Ratio 1,665(H) <30 ??g/mg Creatinine 08/13/2023 17:16 [facility] Comment: Urine Albumin/Creatinine Ratio: Normal: <30 ug/mg Creatinine Moderately increased albuminuria: 30-300 ug/mg Creatinine Severely increased albuminuria: >300 ug/mg Creatinine Urine URINE / Unknown Urine Collect / Unknown 08/13/2023 9:58 EDT 08/13/2023 11:25 EDT Lisa Yan HANGAR ATTENDANT CHEMISTRY & BLOOD GAS ORDERABLES Performing Organization Address [facility] de Phone Number [facility] [address] [place] [address] * THYROID CASCADE (08/13/2023 9:58 EDT) Pathologist [facility] TSH 1.34 0.47 - 4.68 mIU/L 08/13/2023 11:[address] [facility] Blood VENOUS BLOOD / Unknown Venipuncture / Unknown 08/13/2023 9:58 EDT 08/13/2023 10:[address] [facility] - 08/13/2023 11:45 EDT NOTE: The results of this assay can be falsely lowered due to the consumption of Biotin. Lisa Yan NP CHEMISTRY & BLOOD GAS ORDERABLES Performing Organization Address [facility] [address] [place] [address] * (ABNORMAL) HEMOGLOBIN A1C (08/13/2023 9:58 EDT) Hemoglobin A1c 8.0(H) <5.7 % 08/13/2023 13:[address] [facility] Comment: Glycemic Status References: Normal: ??<5.7% Pre-Diabetes: ??5.7% - 6.4% Diagnostic of Diabetes: ??> or = 6.5% (if confirmed) Est Avg Glucose 183 mg/dL 13:12 [facility] Comment:The eAG represents t he A1c result expressed as average glucose in mg/dL. Blood VENOUS BLOOD / Unknown Venipuncture / Unknown 08/13/2023 9:58 EDT 08/13/2023 10:26 EDT Lisa M Farrah GIBBS CHEMISTRY & BLOOD GAS ORDERABLES [facility] [address] [place] [address] * (ABNORMAL) COMPREHENSIVE METABOLIC PANEL (CMP) (08/13/2023 9:58 EDT) Sodium 139 136 - 145 mmol/L 08/13/2023 11:11 [facility] Potassium 4.1 3.5 - 5.0 mmol/L 08/13/2023 11:11 [facility] Chloride 107 96 - 110 mmol/L 08/13/2023 11:11 [facility] CO2 Total 29 22 - 32 mmol/L 08/13/2023 11:11 [facility] Glucose 76 70 - 99 mg/dl 08/13/2023 11:11 [facility] BUN 10 10 - 26 mg/dL 08/13/2023 11:11 [facility] Creatinine 0.84 0.52 - 1.04 mg/dL 08/13/2023 11:11 [facility] eGFR 95 >60 mL/min/1.7 3m2 08/13/2023 11:11 [facility] Total Protein 8.0 6.3 - 8.2 g/dL 08/13/2023 11:11 [facility] Albumin 4.3 3.4 - 4.9 g/dL 08/13/2023 11:11 [facility] Alkaline Phosphatase 70 38 - 126 U/L 08/13/2023 11:11 [facility] AST 21 15 - 46 U/L 08/13/2023 11:11 [facility] ALT 27 <35 U/L 08/13/2023 11:11 [facility] Bilirubin, Total 0.6 <1.4 mg/dL 08/13/19 11:[address] [facility] Calcium 9.9 8.5 - 10.5 mg/dL 08/13/2023 11:[address] [facility] Albumin/Globulin Ratio 1.2 1.0 - 2.5 08/13/2023 11:[address] [facility] Anion Gap 3(L) 5 - 14 mmol/L 08/13/2023 11:[address] [facility] Blood VENOUS BLOOD / Unknown Venipuncture / Unknown 08/13/2023 9:58 EDT 08/13/2023 10:24 EDT Lisa Yan NP CHEMISTRY & BLOOD GAS ORDERABLES [facility] [address] [place] [address] * (ABNORMAL) LIPID PROFILE (INCLUDES CHOLESTEROL, TRIGLYCERIDES, HDL, LDL) (08/13/2023 9:58 EDT) Cholesterol 175 <200 mg/dL 08/13/2023 11:11 [facility] Comment:Note that therapeuti c goals will differ between patients based on cardiac risk factors and current medical therapy. HDL 43(L) >=50 mg/dl 08/13/2023 11:11 [facility] Comment:Note that therapeuti c goals will differ between patients based on cardiac risk factors and current medical therapy. LDL, Calculated 114 <160 mg/dL 11:11 [facility] Comment:Note that therapeuti c goals will differ between patients based on cardiac risk factors and current medical therapy. Triglyceride 90 <=150 mg/dL 08/13/2023 11:11 [facility] Comment:Note that therapeuti c goals will differ between patients based on cardiac risk factors and current medical therapy. Chol/HDL Ratio 4.1 See Note 08/13/2023 11:11 [facility] Comment: NOTE: Desirable Ratio = <4.1 Patient At Risk Ratio = >5.0(Males) ?>6.0(Females) Non HDL Cholesterol 132 <160 mg/dL 08/13/2023 11:[address] [facility] Comment:Note that therapeuti c goals will differ between patients based on cardiac risk factors and current medical therapy. Blood VENOUS BLOOD / Unknown Venipuncture / Unknown 08/13/2023 9:58 EDT 08/13/2023 10:24 EDT Lisa Yan NP CHEMISTRY & BLOOD GAS ORDERABLES [facility] [address] [place] [address] documented in this encounter Visit Diagnoses Diagnosis Type 2 diabetes mellitus with hyperglycemia, with long-term current use of insulin ([facility]) Other specified hypothyroidism documented in this encounter Care Teams Medical Affairs Manager Relationship Specialty Start Date End Date Lia Pearson APRN [address] [place] [phone] PCP - General Family Medicine - [facility] Medicine 09/26/21 Lisa Yan NP [address] [place] [phone] Nurse Practitioner Endocrinology, Diabetes and Metabolism 03/19/21 Lisa Yan NP [address] [place] [phone] Nurse Practitioner Endocrinology, Diabetes and Metabolism 06/06/21 documented as of this encounter
--- OUTSIDE RECORDS SUMMARY | 2023-11-26 19:33 | XMS_ITS | Encounter Summary ---
Author Organization [facility] Address [address] [place] [address] Care Team Providers Care Senior Erp Consultant Name Role Phone Lisa Yan CUT PLUG PACKER Unavailable [phone] Lisa Yan CUT PLUG PACKER Unavailable [phone] Lia Pearson APRN Primary Care Provider [phone] Encounter Details Date Type Department Care Team (Late st Contact Info) Description 05/26/2023 Orders Only [facility] [place] [address] [place] [address] Lisa Yan CUT PLUG PACKER [address] [facility] [address] [place] [phone] Social History Tobacco Use Types Packs/Day Years [...] :23 EDT documented as of this encounter Ordered Prescriptions Prescription Sig Dispensed Refills Start Date End Da te insulin glargine (LANTUS SOLOSTAR U-100 INSULIN) 100 unit/mL (3 mL) injection pen Inject 16 Units into the skin once daily AND 20 Units at bedtime. 30 mL 2 05/26/2023 06/11/2023 documented in this encounter Plan of Treatment Upcoming Encounters Date Type Department Care Team (Late st Contact Info) Description 01/28/2024 10:30 EDT Office Visit [facility] Endocrinology [address] [place] [address] Lisa Yan NP [address] [place] [phone] documented as of this encounter Visit Diagnoses Not on filedocumented in this encounter Discontinued Medications Medication Sig Discontinue Reason Start Date End Da te insulin glargine (LANTUS SOLOSTAR U-100 INSULIN) 100 unit/mL (3 mL) injection pen Inject 10 Units into the skin once daily. Inject 17 Units into in am AND 18 Units at bedtime. (incrased dose) Reorder 01/29/2023 05/26/2023 documented as of this encounter Care Teams Senior Erp Consultant Relationship Specialty Start Date End Date Lia Pearson APRN [address] [place] [phone] PCP - General Family Medicine - [facility] Medicine 09/26/21 Lisa Yan NP [address] [place] [phone] Nurse Practitioner Endocrinology, Diabetes and Metabolism 03/19/21 Lisa Yan NP [address] [place] [phone] Nurse Practitioner Endocrinology, Diabetes and Metabolism 06/06/21 documented as of this encounter
--- OUTSIDE RECORDS SUMMARY | 2023-11-26 19:33 | XMS_ITS | Encounter Summary ---
Author Organization [facility] Address [address] [place] [address] Care Team Providers Care Carbider Name Role Phone Lisa Yan PEACE OFFICER Unavailable Lisa Yan PEACE OFFICER Unavailable Lia Pearson APRN Primary Care Provider [phone] Reason for Visit * Reason Onset Date Comments Blood Glucose Review 07/13/2023 Encounter Details Date Type Department Care Team (Late st Contact Info) Description 07/13/[address] [facility] [place]ocrinology [address] [place], [place] [phone] Dina Baldwin, TOM [address] [place], [place] [address] Blood Glucose Review Social History Tobacco Use [...] Miscellaneous Notes * Telephone Encounter - Lisa Yan, PEACE OFFICER - 07/13/2023 0930 EST Sent [employer]VR[employer] message to reach out 1-2 weeks after discharge and plan to adjust regimen as needed. * Telephone Encounter - Dina Baldwin RN - 07/13/2023 0832 EST ----- Message from Lisa Yan NP sent at 07/13/2023 8:08 EST ----- Please print whitley data. Thanks. documented in this encounter Plan of Treatment Upcoming Encounters Date Type Department Care Team (Late st Contact Info) Description 01/28/2024 10:30 EDT Office Visit [facility] Endocrinology [address] [place] [phone] Lisa Yan NP [address] [place] [phone] documented as of this encounter Visit Diagnoses Not on filedocumented in this encounter Care Teams Carbider Relationship Specialty Start Date End Date Lia Pearson APRN [address] [place] [phone] PCP - General Family Medicine - [facility] Medicine 09/26/21 Lisa Yan NP [address] [place] [phone] Nurse Practitioner Endocrinology, Diabetes and Metabolism 03/19/21 Lisa Yan NP [address] [place] [phone] Nurse Practitioner Endocrinology, Diabetes and Metabolism 06/06/21 documented as of this encounter
--- OUTSIDE RECORDS SUMMARY | 2023-11-26 19:33 | XMS_ITS | Encounter Summary ---
Author Organization [facility] [place] [address] Care Team Providers Care Retail Sales Specialist Name Role Phone Lia Pearson APRN Primary Care Provider [phone] Encounter Details Date Type Department Care Team (Late st Contact Info) Description 12/12/2021 External Results Weight and Wellness at [address] [phone] Rebeka Up, RN Social History Tobacco Use [...] EDT TH Visit (TeleHealth) [place] [phone] Michael Morgan, [facility] [place] [address] documented as of this encounter Procedures Procedure Name Priority Date/Time Associated Diagnosis Comments HEMOGLOBIN A1C Routine 11/12/2021 [facility] EXTERNAL RESULT PANEL Routine 10/27/2021 [facility] EXTERNAL RESULT PANEL Routine 08/15/2021 documented in this encounter Results * (ABNORMAL) Hemoglobin A1c (11/12/2021) Hemoglobin A1C 6.2(H) Blood 11/12/2021 Historical Provider CHEMISTRY ORDERAB LES * (ABNORMAL) [facility] External Results (10/27/2021) Pathologist [facility] BUN 10 Creatinine 0.7 Sodium 140 Potassium 4.4 Chloride 105 CO2 26 Anion Gap 9 Calcium 8.8 Total Protein 7.2 Albumin 3.3(L) AST 14(L) ALT 27 Alk Phos 88 Total Bilirubin 0.1(L) Estimated GFR >60 Glucose Lvl 87 Ferritin 73 10/27/2021 Historical Provider POINT OF CARE SARAY T ORDERABLES * (ABNORMAL) [facility] External Results (08/15/2021) Pathologist [facility] Chol, Total 199 Triglycerides 46 HDL 55 LDL Cholesterol 135(H) BUN 9 Creatinine 0.7 Sodium 142 Potassium 4.2 Chloride 104 CO2 26 Anion Gap 12(H) Calcium 8.6 Total Protein 7.5 Albumin 3.1(L) AST 16 ALT 25 Alk Phos 97 Total Bilirubin 0.2(L) Estimated GFR >60 TSH 2.98 Glucose Lvl 56(L) 08/15/2021 Historical Provider POINT OF CARE SARAY T ORDERABLES documented in this encounter Visit Diagnoses Not on filedocumented in this encounter Care Teams Retail Sales Specialist Relationship Specialty Start Date End Date Lia Pearson APRN [address] [place] [address] PCP - General Geriatric Medicine 10/15/21 01/26/22 documented as of this encounter
--- OUTSIDE RECORDS SUMMARY | 2023-11-26 19:33 | XMS_ITS | Encounter Summary ---
Author Organization [facility] Address [address] [place] [address] Care Team Providers Care Store Stock Help Name Role Phone Lisa Yan CALENDERER Unavailable [phone] Lisa Yan CALENDERER Unavailable Lia Pearson APRN Primary Care Provider [phone] Reason for Visit * Reason Onset Date Comments Medications Refill 09/28/2023 Encounter Details Date Type Department Care Team (Late st Contact Info) Description 09/28/2023 Refill [facility] [place] [address] [place] [phone] Tasha Tavares RN Medications Refill Social History Tobacco Use [...] Dispensed Refills Start Date End Da te gabapentin (NEURONTIN) 300 mg capsule TAKE ONE CAPSULE BY MOUTH THREE TIMES A DAY 270 Capsule 1 09/28/2023 documented in this encounter Miscellaneous Notes * Telephone Encounter - Tasha Tavares, RN - 09/28/2023 1342 EDT Pharmacy requesting refill gabapentin. You have refilled in the past. Okay to send refill? documented in this encounter Plan of Treatment Upcoming Encounters Date Type Department Care Team (Late st Contact Info) Description 01/28/2024 10:30 EDT Office Visit [facility] Endocrinology [address] [place] [address] Lisa Yan NP [address] [place] [phone] documented as of this encounter Visit Diagnoses Not on filedocumented in this encounter Discontinued Medications Medication Sig Discontinue Reason Start Date End Da te gabapentin (NEURONTIN) 300 mg capsule TAKE ONE CAPSULE BY MOUTH THREE TIMES A DAY Reorder 04/23/2023 09/28/2023 documented as of this encounter Care Teams Store Stock Help Relationship Specialty Start Date End Date Lia Pearson APRN [address] [place] [address] [phone] PCP - General Family Medicine - [facility] Medicine 09/26/21 Lisa Yan NP [address] [place] [phone] Nurse Practitioner Endocrinology, Diabetes and Metabolism 03/19/21 Lisa Yan NP [address] [place] [phone] Nurse Practitioner Endocrinology, Diabetes and Metabolism 06/06/21 documented as of this encounter
--- OUTSIDE RECORDS SUMMARY | 2023-11-26 19:33 | XMS_ITS | Encounter Summary ---
Author Organization [facility] Address [address] [place] [address] Care Team Providers Care Elementary Teacher Name Role Phone Lisa Yan PHYSICIAN EXTENDER Unavailable Lisa Yan PHYSICIAN EXTENDER Unavailable Lia Pearson APRN Primary Care Provider [phone] Reason for Visit * Reason Comments Diabetes Encounter Details Date Type Department Care Team (Late st Contact Info) Description 06/11/2023 9:30 EST Office Visit [facility] Endocrinology [address] [place] [address] Lisa Yan PHYSICIAN EXTENDER [address] [facility] [address] [place] [address] Type 2 diabetes mellitus with hyperglycemia, with long-term current use of insulin ([facility]) (Primary Dx); Other specified hypothyroidism; BMI 60.0-69.9, adult ([facility]); Long-term insulin use ([facility]); 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; Mixed hyperlipidemia; Essential hypertension, benign Social History Tobacco Use Types Packs/Day Years Used Date Smoking Tobacco: Former Smokeless Tobacco: Never Tobacco Cessation:Counseling Given: Not Answered Comments:quit in march Alcohol Use Standard Drinks/Week [...] :23 EDT documented as of this encounter Last Filed Vital Signs Vital Sign Reading Time Taken Comments Blood Pressure 110/70 06/11/2023 0913 EST Pulse 80 06/11/2023 0913 EST Temperature - - Respiratory Rate - - Oxygen Saturation - - Inhaled Oxygen Concentration - - Weight 182.3 kg (402 lb) 06/11/2023 0913 EST Height - - Body Mass Index 66.9 01/29/2023 1144 EDT documented in this encounter Patient Instructions * Patient Instructions* Lisa Yan NP - 06/11/2023 9:30 EST A1C 6.7 CGM data looks great! With restart of metformin, lower lantus 10 units twice daily. Restart mounjaro 2.5 mg weekly injection, inject into fatty tissue of thighs or buttocks. With this lower lantus 8 units twice daily. If tolerating mounjaro well after 4 weeks, increase mounjaro 5 mg weekly injection. With this lower lantus 4 units twice daily. Continue with novolog sliding scale as needed with meals. Continue with whitley 2 CGM, swipe fasting,before meals and bedtime. Encouraged to reach out with lows <70's great than twice weekly or elevations >180's all the time. Keep up with daily hydration, balanced meals and activity daily as able. Follow-up in 2-3 months or sooner with concerns. documented in this encounter Ordered Prescriptions Prescription Sig Dispensed Refills Start Date End Da te insulin glargine (LANTUS SOLOSTAR U-100 INSULIN) 100 unit/mL (3 mL) injection penIndications:Type 2 diabetes mellitus with hyperglycemia, with long-term current use of insulin ([facility]) Inject 10 Units into the skin once daily AND 10 Units at bedtime. 30 mL 2 06/11/2023 08/13/2023 tirzepatide (MOUNJARO) 2.5 mg/0.5 mL pen injectorIndications:Type 2 diabetes mellitus with hyperglycemia, with long-term current use of insulin ([facility]) Inject 0.5 mL into the skin once a week. If tolerating after 4 weeks, increase 5 mg weekly. 2 mL 2 06/11/2023 06/15/2023 documented in this encounter Progress Notes * Shari Hsu RN - 06/11/2023 0930 EST Needs foot and eye Lab Results Component Value Date UABCR 650 (H) 06/18/2022 HGBA1C 6.7 (A) 01/29/2023 Glucose- * Lisa Yan NP - 06/11/2023 0930 EST Reason for Visit: DM f/up PCP: BERNIE Pearson OTHER PROVIDERS: MILL OPERATOR HEAD [facility] Dr. Haider, cardiology [facility], [facility] Zenia Worley is a 33 y.o. female who presented to the clinic for a follow-up in [facility], with a history of DM since 2004. Hx of HLD, [place] on cpap, PTSD, schizoaffective disorder, anemia, hypothyroid,hypoglycemia comas, s/p bariatri surgery (2023) Does not currently work. Lives on her own. Is working with [employer] on finding work. Sister lives in [place]. Parents have . Underwent bariatric surgery 1 week ago. Stopped jardiance and mounjaro in hospital. Had episode of EDKA d/t dehydration. Was on mounjaro 5 mg weekly prior to surgery, had been tolerating this well. Has been feeling well since being home, has been having some nausea w/ too much liquids. No longer having stomach tightness. Bm's are inconsistent, constipation. Does have meds for this. Is only taking in liquids and pureed foods. Random BG in clinic 91. Has had protein shake today, finished in clinic. Has lowered lantus since discharge. Has only used novolog once since being d/c. Just started back on metformin yesterday. Tolerating this well. TSH 1.42 (09/2022) Levothyroxine 200 mcg [facility] DM: dad, brother Recent A1C: 10 (04/2023) PCP office 6.7 (01/2023) 5.8 (10/2022) 7.6 (05/2022) Cpep 2 (05/2023) Diabetic Medications: Metformin XR 1000 mg twice daily lantus 12 units BID novolog SS: avg 4-10 units <160 0 units 161-200 1 units 201-250 2 units 251-300 3 units Current monitoring regimen: Frequency of monitoring? : whitley Fasting range: Preprandial range: Postprandial range: Any episodes of hypoglycemia? Yes? 87-95 has symptoms of lethargic, unfocused Cause of hypoglycemia? Nutrition Daily Recall: will have 1-2 meal/day, Breakfast: does not typically have Lunch: sandwich, frozen food, canned food Dinner: Snacks: PB/crackers Beverages: water 2-42 oz/day, crystal light, no etoh Exercise: walking daily 1hr, yoga weekly, gym twice weekly. Diabetes Related Problems Eye exam current (within one year): MDD, [facility] Last dental exam: overdue CVD,PVD,CAD: HLD, HTN Statin: rosuvastatin 40 mg, LDL 92 (06/2022) Aspirin: no ACEI/ARB: losartan 25 mg Prior visit with actuarial clerk: CORNELIO Aguayo Foot care: self Comorbidities: Retinopathy: yes, will be getting laser treatment upcoming, along with the injections. Nephropathy/Kidney function: GFR >60 (09/2022) No results found for: CALCGFR MCR up to date? Lab Results Component Value Date Lab Urine Albumin to Creatinine Ratio 650 (H) 06/18/2022 Neuropathy: on gabapentin for nerve pain on tooth Location: BL feet-minimal, tooth-severe if missed meds Stable: yes Review of Systems Eyes: Negative. Gastrointestinal: Negative. Endocrine: Negative. Genitourinary: Negative. Neurological: Positive for numbness. Physical Exam Constitutional: Appearance: Normal appearance. HENT: Head: Normocephalic and atraumatic. Skin: General: Skin is warm and dry. Neurological: Mental Status: She is alert and oriented to person, place, and time. Psychiatric: Mood and Affect: Mood normal. Behavior: Behavior normal. Thought Content: Thought content normal. CGM INTERPRETATION Type of CGM: personal whitley 2 05/29-06/11/2023 Type of DM: II Diabetic Medications: lantus Metformin Novolog PRN Indication for monitoring: Hyper/hypoglycemia, insulin dosing Report Interpretation: Average glucose 141 mg/dL, standard deviation 32 TIR 81%, TAR 19%, TBR 0% Nocturnal glucose control: Yes Post-prandial glucose excursions: minimal, Hypoglycemia incidence: minimal, fasting Other (exercise/activity): Hemoglobin A1c, POC Date Value Ref Range Status 01/29/2023 6.7 (A) 5.7 % Final Lab Results Component Value Date UABCR 650 (H) 06/18/2022 No results found for: NA, K, CL, CO2, BUN, CSFGLU, CREATINE, GLU, CA, GFR Zenia Worley is a 33 y.o. female who presented to the clinic for a follow-up in [facility], with a history of DM since 2004. Problem List Items Addressed This Visit Endocrine/Metabolic Type 2 diabetes mellitus with hyperglycemia, with long-term current use of insulin ([facility]) - Primary Controlled A1C 6.7 CGM data looks great. With restart of metformin, lower lantus 10 units twice daily. Restart mounjaro 2.5 mg weekly injection, inject into fatty tissue of thighs or buttocks. With this lower lantus 8 units twice daily. If tolerating mounjaro well after 4 weeks, increase mounjaro 5 mg weekly injection. With this lower lantus 4 units twice daily. Continue with novolog sliding scale as needed with meals. Continue with whitley 2 CGM, swipe fasting,before meals and bedtime. Encouraged to reach out with lows <70's great than twice weekly or elevations >180's all the time. Keep up with daily hydration, balanced meals and activity daily as able. Follow-up in 2-3 months or sooner with concerns. Relevant Medications tirzepatide (MOUNJARO) 2.5 mg/0.5 mL pen injector insulin glargine (LANTUS SOLOSTAR U-100 INSULIN) 100 unit/mL (3 mL) injection pen Other Relevant Orders HEMOGLOBIN A1C LIPID PROFILE (INCLUDES CHOLESTEROL, TRIGLYCERIDES, HDL, LDL) COMPREHENSIVE METABOLIC PANEL (CMP) THYROID CASCADE URINE [id number]-ILDFBJEQJY RATIO (ACR) Other specified hypothyroidism Relevant Orders THYROID CASCADE BMI 60.0-69.9, adult ([facility]) Long-term insulin use ([facility]) [facility] 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 Cardiac/Vasculature Mixed hyperlipidemia Fasting labs prior to next visit. Orders sent to PCP. Essential hypertension, benign BP at home. Patient Goals: A1C <7% Exercise: 150-300 minutes of CV exercise/week. I spent a total of 30 minutes on the date of this encounter meeting with the patient and reviewing documentation/coordinating care as described in the above note. No procedures were performed at the time of the visit. This time does not include spent reviewing CGM data. * Tasha Tavares RN - 06/11/2023 0930 EST Glucose: 91 documented in this encounter Miscellaneous Notes * Assessment & Plan Note - Lisa Yan NP - 06/11/2023 0951 EST Associated Problem(s): Mixed hyperlipidemia Fasting labs prior to next visit. Orders sent to PCP. * Assessment & Plan Note - Lisa Yan NP - 06/11/2023 0948 EST Associated Problem(s): Type 2 diabetes mellitus with hyperglycemia, with long- term current use of insulin ([facility]) Controlled A1C 6.7 CGM data looks great. With restart of metformin, lower lantus 10 units twice daily. Restart mounjaro 2.5 mg weekly injection, inject into fatty tissue of thighs or buttocks. With this lower lantus 8 units twice daily. If tolerating mounjaro well after 4 weeks, increase mounjaro 5 mg weekly injection. With this lower lantus 4 units twice daily. Continue with novolog sliding scale as needed with meals. Continue with whitley 2 CGM, swipe fasting,before meals and bedtime. Encouraged to reach out with lows <70's great than twice weekly or elevations >180's all the time. Keep up with daily hydration, balanced meals and activity daily as able. Follow-up in 2-3 months or sooner with concerns. * Assessment & Plan Note - Lisa Yan NP - 06/11/2023 0933 EST Associated Problem(s): Essential hypertension, benign BP at home. documented in this encounter Plan of Treatment Upcoming Encounters Date Type Department Care Team (Late st Contact Info) Description 01/28/2024 10:30 EDT Office Visit [facility] Endocrinology [address] [place] [address] Lisa Yan NP [address] [facility] [address] [place] [phone] documented as of this encounter Results * (ABNORMAL) URINE [id number] RATIO (ACR) (08/13/2023 9:58 EDT) Albumin, Urine 74.1 See Note mg/dL 2023 17:16 EDT [facility] Comment: NOTE: Reference range not established Creatinine, Urine 44.5 See Note mg/dL 08/13/2023 17:16 EDT [facility] Comment: NOTE: Reference range not established Lab Urine Albumin to Creatinine Ratio 1,665(H) <30 ??g/mg Creatinine 08/13/2023 17:16 T [facility] Comment: Urine Albumin/Creatinine Ratio: Normal: <30 ug/mg Creatinine Moderately increased albuminuria: 30-300 ug/mg Creatinine Severely increased albuminuria: >300 ug/mg Creatinine Urine URINE / Unknown Urine Collect / Unknown 08/13/2023 9:58 EDT 08/13/2023 11:25 EDT Lisa Yan NP CHEMISTRY & BLOOD GAS ORDERABLES Performing Organization Address City/[facility]/ZIP Co de Phone Number [facility] [address] [place] [address] * THYROID CASCADE (08/13/2023 9:58 EDT) TSH 1.34 0.47 - 4.68 mIU/L 08/13/2023 11:45 EDT [facility] Blood VENOUS BLOOD / Unknown Venipuncture / Unknown 08/13/2023 9:58 EDT 08/13/2023 10:24 EDT Narrative [facility] - 08/13/2023 11:45 EDT NOTE: The results of this assay can be falsely lowered due to the consumption of Biotin. 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 E11.9 03/09/2023 06/11/2023 tirzepatide (MOUNJARO) 2.5 mg/0.5 mL pen injectorIndications:Ty pe 2 diabetes mellitus with hyperglycemia, with long-term current use of insulin ([facility]) Inject 0.5 mL into the skin once a week. If tolerating after 4 weeks, increase 5 mg weekly. Reorder 03/15/2023 06/11/2023 insulin glargine (LANTUS SOLOSTAR U-100 INSULIN) 100 unit/mL (3 mL) injection pen Inject 16 Units into the skin once daily AND 20 Units at bedtime. Reorder 05/26/2023 06/11/2023 HUMALOG KWIKPEN INSULIN 100 unit/mL injectable pen TDD w/ meals based on sliding scale 15-20 units per meal tdd 60 units- in place of novolog per ins. 06/02/2023 06/11/2023 documented as of this encounter Historical Medications * This list may reflect changes made after this encounter. Medication Sig Dispensed Refills Start Date End Date hydrOXYzine (VISTARIL) 25 mg capsule Take 1 Capsule by mouth 3 times daily as needed. 05/18/2023 methocarbamoL (ROBAXIN) 500 mg tablet 01/14/2023 ursodioL (ACTIGALL) 300 mg capsule Take 1 Capsule by mouth 2 times daily. 06/17/2023 12/14/2023 prochlorperazine (COMPAZINE) 5 mg tablet 1 Tablet. prn 06/08/2023 ondansetron (ZOFRAN-ODT) 4 mg disintegrating tablet 06/08/2023 omeprazole (PRILOSEC) 40 mg capsule Take 1 Capsule by mouth every morning. 06/08/2023 ARIPiprazole (ABILIFY) 5 mg tablet Take 1 Tablet by mouth daily. 05/24/2023 oxyCODONE (ROXICODONE) 5 mg/5 mL solution Take 5 mL by mouth every 6 hours as needed. 06/05/2023 08/13/2023 enoxaparin (LOVENOX) 40 mg/0.4 mL injection Inject 40 mg into the skin 2 times daily. 06/05/2023 06/15/2023 added in this encounter Orders Lab Orders Without Results Count Last Ordered D ate First Ordered Date COMPREHENSIVE METABOLIC PANEL (CMP) 1 06/11 HEMOGLOBIN A1C 1 06/11/2023 LIPID PROFILE (INCLUDES CHOL ESTEROL, TRIGLYCERIDES, HDL, LDL) 1 06/11/2023 documented in this encounter Care Teams Elementary Teacher Relationship Specialty Start Date End Date Lia Pearson APRN [address] [place] [address] PCP - General Family Medicine - [facility] Medicine 09/26/21 Lisa Yan NP [address] [place] [phone] Nurse Practitioner Endocrinology, Diabetes and Metabolism 03/19/21 Lisa Yan NP [address] [place] [phone] Nurse Practitioner Endocrinology, Diabetes and Metabolism 06/06/21 documented as of this encounter
--- OUTSIDE RECORDS SUMMARY | 2023-11-26 19:33 | XMS_ITS | Encounter Summary ---
Author Organization [facility] Address [address] [place] [address] Care Team Providers Care Embedded Software Engineer Name Role Phone Lisa Yan REGIONAL WILDLIFE AGENT Unavailable [phone] Lisa Yan REGIONAL WILDLIFE AGENT Unavailable [phone] Lia Pearson APRN Primary Care Provider [phone] Reason for Visit * Reason Onset Date Comments Medication Management 03/29/2023 Refill of levothyroxine 200 mcg requested Encounter Details Date Type Department Care Team (Late st Contact Info) Description 03/29/2023 Telephone [facility] [place] [address] [place] [address] Lilibeth Arguello, credit collections clerk Management (Refill of levothyroxine 200 mcg requested ) Social History Tobacco Use Types Packs/Day Years [...] Dispensed Refills Start Date End Da te levothyroxine (SYNTHROID) 200 mcg tablet Take 1 Tablet by mouth daily. 90 Tablet 1 03/29/2023 08/30/2023 documented in this encounter Miscellaneous Notes * Telephone Encounter - Lilibeth Arguello RN - 03/29/2023 4948 EST Refilled documented in this encounter Plan of Treatment Upcoming Encounters Date Type Department Care Team (Late st Contact Info) Description 01/28/2024 10:30 EDT Office Visit [facility] Endocrinology [address] [place] [address] Lisa Yan NP [address] [place] [phone] documented as of this encounter Visit Diagnoses Not on filedocumented in this encounter Discontinued Medications Medication Sig Discontinue Reason Start Date End Da te levothyroxine (SYNTHROID) 200 mcg tablet TAKE ONE TABLET BY MOUTH EVERY DAY Reorder 09/30/2022 03/29/2023 documented as of this encounter Care Teams Embedded Software Engineer Relationship Specialty Start Date End Date Lia Pearson APRN [address] [place] [phone] PCP - General Family Medicine - [facility] Medicine 09/26/21 Lisa Yan NP [address] [place] [phone] Nurse Practitioner Endocrinology, Diabetes and Metabolism 03/19/21 Lisa Yan NP [address] [place] [phone] Nurse Practitioner Endocrinology, Diabetes and Metabolism 06/06/21 documented as of this encounter
--- OUTSIDE RECORDS SUMMARY | 2023-11-26 19:33 | XMS_ITS | Encounter Summary ---
Author Organization [facility] Address [address] [place] [address] Care Team Providers Care Yard Coupler Name Role Phone Lisa Yan REAL TIME ANALYST Unavailable [phone] Lisa Yan REAL TIME ANALYST Unavailable [phone] Lia Pearson APRN Primary Care Provider [phone] Reason for Visit * Reason Onset Date Comments Medications Refill 06/02/2023 Encounter Details Date Type Department Care Team (Late st Contact Info) Description 06/02/2023 Refill [facility] Endocrinology [address] [place] [phone] Shari Hsu RN Medications Refill Social History [...] Dispensed Refills Start Date End Da te HUMALOG KWIKPEN INSULIN 100 unit/mL injectable pen TDD w/ meals based on sliding scale 15-20 units per meal tdd 60 units- in place of novolog per ins. 60 mL 3 06/02/2023 06/11/2023 documented in this encounter Miscellaneous Notes * Telephone Encounter - Shari Hsu RN - 06/02/2023 1316 EST Ins. Prefers humalog- rx sent documented in this encounter Plan of Treatment Upcoming Encounters Date Type Department Care Team (Late st Contact Info) Description 01/28/2024 10:30 EDT Office Visit [facility] Endocrinology [address] [place] [phone] Lisa Yan NP [address] [place] [phone] documented as of this encounter Visit Diagnoses Not on filedocumented in this encounter Discontinued Medications Medication Sig Discontinue Reason Start Date End Da te insulin aspart U-100 (NOVOLOG FLEXPEN U-100 INSULIN) 100 unit/mL (3 mL) injectable pen TID w/ meals based on sliding scale 15-20 units per meal tdd 60 units. Dispense 6 pens for 30 days 05/19/2023 06/02/2023 documented as of this encounter Care Teams Yard Coupler Relationship Specialty Start Date End Date Lia Pearson APRN [address] [place] [address] PCP - General Family Medicine - [facility] Medicine 09/26/21 Lisa Yan REAL TIME ANALYST [address] [place] [phone] Nurse Practitioner Endocrinology, Diabetes and Metabolism 03/19/21 Lisa Yan NP [address] [place] [phone] Nurse Practitioner Endocrinology, Diabetes and Metabolism 06/06/21 documented as of this encounter
--- OUTSIDE RECORDS SUMMARY | 2023-11-26 19:33 | XMS_ITS | Encounter Summary ---
Author Organization [facility] Address [address] [place] [address] Care Team Providers Care Pipe Liner Name Role Phone Lisa Yan SENIOR DIRECTOR FINANCE Unavailable Lisa Yan SENIOR DIRECTOR FINANCE Unavailable Lia Pearson APRN Primary Care Provider [phone] Reason for Visit * Reason Onset Date Comments Medication Problem 03/12/2023 [employer] sh ortage on her Ozempic Encounter Details Date Type Department Care Team (Late st Contact Info) Description 03/12/2023 Telephone [facility] [place] [address] [place] [address] Dina Baldwin, RN [address] [place], [place] [phone] Medication Problem (Nationwide shortage on her Ozempic) Social History Tobacco Use Types Packs/Day Years [...] Dispensed Refills Start Date End Da te tirzepatide (MOUNJARO) 5 mg/0.5 mL pen injectorIndications:Type 2 diabetes mellitus with hyperglycemia, with long-term current use of insulin ([facility]) Inject 0.5 mL into the skin once a week. If tolerating lower dose after 4 weeks, increase 5 mg weekly. 4 mL 2 03/15/2023 06/15/2023 tirzepatide (MOUNJARO) 2.5 mg/0.5 mL pen injectorIndications:Type 2 diabetes mellitus with hyperglycemia, with long-term current use of insulin ([facility]) Inject 0.5 mL into the skin once a week. If tolerating after 4 weeks, increase 5 mg weekly. 2 mL 2 03/15/2023 06/11/2023 documented in this encounter Miscellaneous Notes * Telephone Encounter - Lisa Yan NP - 03/15/2023 1348 EDT Noted. Sent in scripts. Have her reach out after 1-2 weeks on medications with glucose data if needing to adjust insulins. Thanks. * Telephone Encounter - Lilibeth Arguello RN - 03/15/2023 1317 EDT Nurse spoke with patient and offered to check with [facility] pharmacy if medication is available. Patient is not currently enrolled in the [facility] program and prefers to switch to Lisa's suggestion of mounjaro. Patient prefers to use [facility] in [place], [place]. * Telephone Encounter - Lisa Yan NP - 03/15/2023 1254 EDT Was she able to get this sent out from [facility]? Mychart message from TOM Arguello 03/09? If not, we can switch to mounjaro 2.5 mg weekly, if tolerating well after 4 weeks, increase 5 mg weekly injection. Thanks. * Telephone Encounter - Dina Baldwin RN - 03/12/2023 1517 EDT She is on her second week without Ozempic due to nationwide shortage. What do you want to use in the interim? documented in this encounter Plan of Treatment Upcoming Encounters Date Type Department Care Team (Late st Contact Info) Description 01/28/2024 10:30 EDT Office Visit [facility] Endocrinology [address] [place] [address] [phone] Lisa Yan NP [address] [place] [phone] documented as of this encounter Visit Diagnoses Diagnosis Type 2 diabetes mellitus with hyperglycemia, with long-term current use of insulin ([facility])- Primary documented in this encounter Care Teams Pipe Liner Relationship Specialty Start Date End Date Lia Pearson APRN [address] [place] [phone] PCP - General Family Medicine - [facility] Medicine 09/26/21 Lisa Yan NP [address] [place] [phone] Nurse Practitioner Endocrinology, Diabetes and Metabolism 03/19/21 Lisa Yan NP [address] [place] [phone] Nurse Practitioner Endocrinology, Diabetes and Metabolism 06/06/21 documented as of this encounter
--- OUTSIDE RECORDS SUMMARY | 2023-11-26 19:33 | XMS_ITS | Encounter Summary ---
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 Incomplete [place] Category I Result 1 (Negative) [place] Category II Result 0 (Negative) [place] Category III 1 (Positive) [place] Sleep Apnea Total 2 (High Risk) Schooling Graduated from college Importance of making a change 10 - Very Important Confidence to make change 10 - Very Confident Most weighed 460 Age most weighed 28 Times lost 10 lbs or more 11 times of more Lost weight how? Ate less food, Switched to food with less calories, Ate less fat, Ate fewer carbohydrates, Skipped meals, Ate diet foods or products, Drank a lot of water, Ate less sugar, candy, sweets, Ate less junk food or fast food Worried food would run out before we got money to buy more - Food didnt last; no money to get more - URICA: <8 Precontemp, 8-12 Contemp, 12+ Prep TFEQ: Look at transformed scores, average is 50, +/-2SD is sigfnif, consider referral >70 WEL-SF: Range 0-80, higher = better PROMIS Avg score = 50 REAP score 13-39, higher = more diversity in diet, better documented in this encounter Plan of Treatment Upcoming Encounters Date Type Department Care Team (Late st Contact Info) Description 12/30/2023 2:45 PM EDT TH Visit (TeleHealth) [place] [address] Michael Morgan, [facility] [place] [address] Scheduled Referrals Name Type Priority Associated Diagnoses Orde r Schedule Amb Referral to [facility] Psych Evaluation Outpatient Referral Routine Class 3 severe obesity with body mass index (BMI) greater than or equal to 70 in adult, unspecified obesity type, unspecified whether serious comorbidity present Type 2 diabetes mellitus with hyperglycemia, with long-term current use of insulin Ordered: 12/19/2021 Referral to Bariatric Surgery Program Outpatient Referral Routine Class 3 severe obesity with body mass index (BMI) greater than or equal to 70 in adult, unspecified obesity type, unspecified whether serious comorbidity present Type 2 diabetes mellitus with hyperglycemia, with long-term current use of insulin Ordered: 12/19/2021 documented as of this encounter Visit Diagnoses Diagnosis Class 3 severe obesity with body mass index (BMI) greater than or equal to 70 in adult, unspecified obesity type, unspecified whether serious comorbidity present- Primary Type 2 diabetes mellitus with hyperglycemia, with long-term current use of insulin Insomnia, unspecified type Abnormal finding of blood chemistry, unspecified Type 2 diabetes mellitus with diabetic neuropathy, with long-term current use of insulin documented in this encounter Care Teams Bus Starter Relationship Specialty Start Date End Date Lia Pearson APRN [address] [place] [address] PCP - General Geriatric Medicine 10/15/21 01/26/22 documented as of this encounter
--- OUTSIDE RECORDS SUMMARY | 2023-11-26 19:33 | XMS_ITS | Encounter Summary ---
Author Organization [facility] [place] [address] Care Team Providers Care Basic Sciences Professor Name Role Phone Lia Pearson APRN Primary Care Provider [phone] Reason for Referral * Consultation (Routine) - Closed Specialty Diagnoses / Procedures Referred By Della kern Referred To Contact Weight and Wellness Diagnoses Morbid obesity [place] [address] [facility] [address] [place] [address] Referral ID Status Reason Start Date Expiration Date V isits Requested Visits Authorized [id number] Closed Consult, Test & Treat PCP Updated and/or Approved 12/03/2021 12/03/2022 1 1 Encounter Details Date Type Department Care Team (Late st Contact Info) Description 12/03/2021 Transcribe Orders eDH Incoming Referrals [phone] Lia Pearson APRN [address] [place], [place] [id number] Morbid obesity Social History Tobacco Use Types Packs/Day Years [...] EDT TH Visit (TeleHealth) [place] [address] Michael Morgan, [facility] [place] [address] Scheduled Referrals Name Type Priority Associated Diagnoses Orde r Schedule Referral to [facility] Outpatient Referral Routine Morbid obesity Ordered: 12/03/2021 documented as of this encounter Visit Diagnoses Diagnosis Morbid obesity documented in this encounter Care Teams Basic Sciences Professor Relationship Specialty Start Date End Date Lia Pearson APRN [address] [place] [place] [address] PCP - General Geriatric Medicine 10/15/21 01/26/22 documented as of this encounter
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
--- OUTSIDE RECORDS SUMMARY | 2023-11-26 19:33 | XMS_ITS | Encounter Summary ---
Author Organization [facility] Address [address] [place] [address] Care Team Providers Care Shell Coremaker Name Role Phone Lisa Yan SENIOR DIRECTOR INSIGHT Unavailable Lisa Yan SENIOR DIRECTOR INSIGHT Unavailable Lia Pearson APRN Primary Care Provider [phone] Reason for Visit * Reason Onset Date Comments Medications Refill 04/23/2023 Encounter Details Date Type Department Care Team (Late st Contact Info) Description 04/23/2023 Refill [facility] [address], [place] [id number] Lisa Yan SENIOR DIRECTOR INSIGHT [address] [facility] [address] [place] [address] Medications Refill Social History Tobacco Use Types [...] THREE TIMES A DAY 270 Capsule 1 04/23/2023 09/28/2023 documented in this encounter Miscellaneous Notes * Telephone Encounter - Shari Hsu RN - 04/23/2023 0943 EST Pended for your e sig * Telephone Encounter - Antionette Persaud - 04/23/2023 0938 EST Refill on gabapentin 300 mg, takes 3 tabs daily, is going to be out this weekend documented in this encounter Plan of Treatment Upcoming Encounters Date Type Department Care Team (Late st Contact Info) Description 01/28/2024 10:[address] [facility] Endocr[facility] [address] [place] [phone] Lsia Yan NP [address] [place] [phone] documented as of this encounter Visit Diagnoses Not on filedocumented in this encounter Discontinued Medications Medication Sig Discontinue Reason Start Date End Da te gabapentin (NEURONTIN) 300 mg capsule TAKE ONE CAPSULE BY MOUTH THREE TIMES A DAY Reorder 10/20/2022 04/23/2023 documented as of this encounter Care Teams Shell Coremaker Relationship Specialty Start Date End Date Lia Pearson APRN [address] [place] [address] PCP - General Family Medicine - [facility] Medicine 09/26/21 Lisa Yan NP [address] [place] [phone] Nurse Practitioner Endocrinology, Diabetes and Metabolism 03/19/21 Lisa Yan NP [address] [place], [place] [phone] Nurse Practitioner Endocrinology, Diabetes and Metabolism 06/06/21 documented as of this encounter
--- OUTSIDE RECORDS SUMMARY | 2023-11-26 19:33 | XMS_ITS | Encounter Summary ---
Author Organization [facility] Address [facility] [place] [address] Care Team Providers Care Filter Tip Catcher Name Role Phone Lia Pearson APRN Primary Care Provider [phone] Encounter Details Date Type Department Care Team (Late st Contact Info) Description 12/24/2021 2:15 PM EDT TH Visit (TeleHealth) Weight and Wellness at [address] [phone] [facility] [place] [address] Morbid obesity with BMI of 70 and [...] - Inhaled Oxygen Concentration - - Weight 196 kg (432 lb) 12/24/2021 1:00 PM EDT Height - - Body Mass Index 71.89 11/26/2021 8:01 AM EDT documented in this encounter Patient Instructions * Patient Instructions* Riddhi Wilson RD - 12/24/2021 2:15 PM EDT It was great to chat with you, Zenia. Below are goals discussed today as well as in past visits. Please reach out with a Cat [employer]mania message if you have any questions or [...] the table Use sauces to moisten foods Stay hydrated! Aim for 48-64 oz each day SIP slowly-5 minutes per ounce of fluid Try freezing a bottle of water or using a child's sippie cup Other (Enter personal goal) -Add peanut butter to oatmeal -Continue to add beans to meals as a source of protein and fiber -If can, buy fresh vegetables and fruit from [employer]-sent message with resources -Choose whole grain options if available -When having a snack, focus on protein documented in this encounter Progress Notes * Riddhi Wilson RD - 12/24/2021 2:15 PM EDT Nutrition Intervention for Weight Management Initial RD visit with YARELI Ceballos 1990 Telehealth / telephone visit conducted while patient was at home at the following address: [address] [place] [id number] Weight Today: Wt Readings from Last 3 Encounters: 12/24/21 (!) 196 kg (432 lb) 12/19/21 (!) 196.3 kg (432 lb 12.8 oz) 11/26/21 (!) 196.3 kg (432 lb 12.8 oz) BMI Readings from Last 3 Encounters: 12/24/21 71.89 kg/m?? 12/19/21 72.02 kg/m?? 11/26/21 72.02 kg/m?? Interview: Zenia has been thinking about weight loss surgery since she was 21, mainly for health reasons, and getting some issues under control. . She was never able to get as much help as she needed in the past due to family issues. Cousin had surgery and was encourage after seeing his results. Can possibly get a [employer] subscription through insurance. Uses social security benefits and the [employer] for food. Is unable to use benefits at local [employer], this fha underwriter will look into resources. She is walking every day, getting in at least 30 min. If too hot, will do steps in building, 4 flights as much as can until tired. Beginner yoga on Saturdays. Weight Loss History: Has struggled with weight and finding resources and family support with getting help for weight loss in the past. Typical Dietary Intake: B: 2 boiled eggs, turkey sausage, or small piece of kielbasa; cereal-plain rice krispies, recently switched to bran cereal or rice Chex 2 % ; oatmeal packet-low sugar L: Rarely eats lunch. When does-leftovers from dinner: chicken or rice or noodles-wheat or white, whatever from food bank. Will add tomato sauce sometimes. D: Chicken, rice, or pasta; shrimp with a tortilla. Frozen green beans, canned corn, fresh zucchini. Canned fruit, light syrup peaches and pears. Fresh- bananas, peaches, grapes. S: Cheese sticks-string cheese or egnxno-bys-qxk peach; srzkf-ojq-ingjzyv if blood sugar is low Typical Beverages: [x] coffee -rarely [x] half and half (unflavored) [] flavored creamer (sugar) [] flavored creamer (sugar-free) [] added sugar - (total: [x] added non-caloric sweetener-2 packets of equal [x] water - (total: ~80 oz day [x] plain [x] crystal light or other sugar-free additive 1/day [] [place] (natural or artificial flavoring or plain only) [x] diet soda- 16 oz/day [] diet other drink [x] regular soda-only when needed for low blood sugar [x] juice-only if sugar is low [x] milk-with cereal Other: Alcohol-very rarely Appetite/Hunger: [x] feels managed with foods/meals outlined above [] discussed meal/snack schedule adjustment today- see goals [x] patient identifies eating for reasons other than hunger- see interview below Food Tracking: [] Current food Tracking [x] discussed potential benefit starting food tracking - see goals [] Food tracking not appropriate for patient at this time Patient Goals from Team: Goals ??? Other (Enter personal goal) Bariatric eating behaviors introduced or reviewed: [x] [...] (2 months nicotine-free prior to surgery) Activity: [] reviewed current goals [] updated goals Barriers to Change: Food insecurity Nutrition Goals updated today: Goals Addressed This Visit's Progress ??? Bariatric behaviors 1. Eating Slowly and [...] having a snack, focus on protein ??? COMPLETED: Self monitoring Keep food log until you are seen by the dieititian. Record everything you eat or drink, include time eaten and any emotional changes that are significant. 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 Bring a log of at least 2 weekdays and one weekend day to review. Monitor/Evaluate: [] Needs additional fuv scheduled with this fha underwriter in Return for FUV already scheduled. (OR) [] Currently scheduled for: [] 1st consecutive monthly nutrition visit [x] 2nd consecutive monthly nutrition visit [x] 3rd consecutive monthly nutrition visit (OR) [] Patient has met requirement of 3 consecutive monthly nutrition visits but agrees that ongoing support would be helpful and feasible. Above determined to the best ability of this fha underwriter. Patient will contact bariatric surgery team for any official determination about scheduling and insurance requirements ( ) Thank you, Riddhi Wilson RD LD 60 minutes were spent in visit today, including contact with patient, chart review, and documentation documented in this encounter Plan of Treatment Upcoming Encounters Date Type Department Care Team (Late st Contact Info) Description 12/30/2023 2:45 PM EDT TH Visit (TeleHealth) [place] [address] Michael Morgan, [facility] [place] [address] documented as of this encounter Goals Goal Patient Goal Type Associated Problems Recent Progress Patient-Stated? Author Other (Enter personal goal) Lifestyle On track( 023 1:14 PM EDT) Riddhi Buchanan RD Note: -Add peanut butter to oatmeal -Continue to add beans to meals as a source of protein and fiber -If can, buy fresh vegetables and fruit from [employer]-sent message with resources -Choose whole grain [...] Diagnoses Diagnosis Morbid obesity with BMI of 70 and over, adult Morbid obesity documented in this encounter Care Teams Filter Tip Catcher Relationship Specialty Start Date End Date Lia Pearson APRN [address] [place] [address] PCP - General Geriatric Medicine 10/15/21 01/26/22 documented as of this encounter
--- OUTSIDE RECORDS SUMMARY | 2023-11-26 19:33 | XMS_ITS | Encounter Summary ---
Author Organization [facility] Address [address] [place] [address] Care Team Providers Care Resource Recovery Specialist Name Role Phone Lisa Yan CUSTOMER PRICING MANAGER Unavailable [phone] Lisa Yan CUSTOMER PRICING MANAGER Unavailable [phone] Lia Pearson APRN Primary Care Provider [phone] Reason for Visit * Reason Onset Date Comments Medications Refill 06/30/2023 Encounter Details Date Type Department Care Team (Late st Contact Info) Description 06/30/2023 Refill [facility] Endocrinology [address] [place] [phone] Shari Hsu RN Medications Refill Social History [...] Dispensed Refills Start Date End Da te pen needle,diabetic dual safty (BD AUTOSHIELD DUO PEN NEEDLE) 30 gauge x 3/16 needle USE UP TO 5 PEN NEEDLES DAILY 500 Each 3 06/30/2023 documented in this encounter Plan of Treatment Upcoming Encounters Date Type Department Care Team (Late st Contact Info) Description 01/28/2024 10:30 EDT Office Visit [facility] Endocrinology [address], [place] [address] Lisa Yan NP [address] [place] [phone] documented as of this encounter Visit Diagnoses Not on filedocumented in this encounter Discontinued Medications Medication Sig Discontinue Reason Start Date End Da te BD AUTOSHIELD DUO PEN NEEDLE 30 gauge x 3/16 needle USE UP TO 5 PEN NEEDLES DAILY Reorder 06/25/2022 06/30/2023 documented as of this encounter Care Teams Resource Recovery Specialist Relationship Specialty Start Date End Date Lia Pearson APRN [address] [place] [phone] PCP - General Family Medicine [facility] Medicine 09/26/21 Lisa Yan CUSTOMER PRICING MANAGER [address] [place] [phone] Nurse Practitioner Endocrinology, Diabetes and Metabolism 03/19/21 Lisa Yan NP [address] [place] [phone] Nurse Practitioner Endocrinology, Diabetes and Metabolism 06/06/21 documented as of this encounter
--- OUTSIDE RECORDS SUMMARY | 2023-11-26 19:33 | XMS_ITS | Encounter Summary ---
Author Organization [facility] Address [address] [place] [address] Care Team Providers Care Radio Operator Ground Name Role Phone Lisa Yan PROCESS DESIGN ENGINEER Unavailable Lisa Yan PROCESS DESIGN ENGINEER Unavailable Lia Pearson APRN Primary Care Provider [phone] Reason for Visit * Reason Comments Diabetes Encounter Details Date Type Department Care Team (Latest Contact Info) Description 10/29/2023 10:30 EDT [facility] Visit [facility] Endocrinology [address] [place] [address] Lisa Yan PROCESS DESIGN ENGINEER [address] [facility] [address] [place] [phone] Type 2 diabetes mellitus with hyperglycemia, with long-term current use of insulin ([facility]) (Primary Dx); Long-term insulin use (HCC-CMS); supervisor intermediates 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; BMI 60.0-69.9, adult (HCC-CMS); Other specified hypothyroidism; Uses self-applied continuous glucose monitoring device; Essential hypertension, benign; Mixed hyperlipidemia Social History Tobacco Use Types Packs/Day Years [...] Sign Reading Time Taken Comments Blood Pressure 100/76 10/29/2023 1025 EDT Pulse 80 10/29/2023 1025 EDT Temperature - - Respiratory Rate 20 10/29/2023 1025 EDT Oxygen Saturation - - Inhaled Oxygen Concentration - - Weight 171.9 kg (379 lb) 10/29/2023 1025 EDT Height 165.1 cm (5' 5) 10/29/2023 1025 EDT Body Mass Index 63.07 10/29/2023 1025 EDT documented in this encounter Patient Instructions * Patient Instructions* Lisa Yan NP - 10/29/2023 10:30 EDT A1C 9.3 No BG's today. Reports elevations in AM. Increase lantus 7 units PM and continue 6 units AM, continue to hold this mornings going to work [employer]. Continue with Metformin XR 500 mg twice daily and farxiga 5 mg daily. Restart toshia CGM when able, reach out to clinic after 1-2 weeks with start of this and plan to review data/make changes as needed. Letter written today to be able to look at phone during work for Toshia Cgm readings only and managea low glucose when occurring. Reach out if having lows <70's more than twice weekly! Keep up with daily hydration in water, balanced meals-adding vegetables/fruits/fiber/protein with all meals/snacks and activity daily as able. Follow-up in 2-3 months or sooner with concerns. Call podiatry to schedule visit: [phone] documented in this encounter Ordered Prescriptions Prescription Sig Dispensed Refills Start Date End Da te HUMALOG KWIKPEN INSULIN 100 unit/mL injectable penIndications:Type 2 diabetes mellitus with hyperglycemia, with long-term current use of insulin (HCC-CMS) TDD 10 units, 1-5 units with meals twice daily 15 mL 2 10/29/2023 metFORMIN (GLUCOPHAGE-XR) 500 mg ER tabletIndications:Type 2 diabetes mellitus with hyperglycemia, with long-term current use of insulin ([facility]) Take 1 Tablet by mouth 2 times daily. 180 Tablet 3 10/29/2023 insulin glargine 100 unit/mL (3 mL) injection penIndications:Type 2 diabetes mellitus with hyperglycemia, with long-term current use of insulin ([facility]) Inject 6 Units into the skin once daily AND 7 Units at bedtime. E11.65 6 units am, 5 units pm. 15 mL 2 10/29/2023 10/29/2023 documented in this encounter Progress Notes * Shari Hsu RN - 10/29/2023 1030 EDT Needs eye Lab Results Component Value Date UABCR 1,665 (H) 08/13/2023 HGBA1C 8.0 (H) 08/13/2023 [id number] given POCT A!C and glucose performed by Shari Hsu RN , consent given by pt, pt. Tolerated well, ordering provider Lisa Yan NP, site accessed l 3rd finger [id number], pb and crackers given POCT glucose performed by Shari Hsu RN , consent given by pt, pt. Tolerated well, ordering provider Lisa Yan NP, site accessed r 3rd finger Gluucose-143 POCT glucose performed by Shari Hsu RN , consent given by pt, pt. Tolerated well, ordering provider Lisa Yan NP, site accessed r 2nd finger Pt feels well- will go eat lunch when leaves here * Lisa Yan NP - 10/29/2023 1030 EDT Reason for Visit: DM f/up PCP: BERNIE Pearson OTHER PROVIDERS: SOCIAL MEDIA SPECIALIST [facility] [place] [place], cardiology [facility], [facility] Zenia Worley is a 33 y.o. female who presented to the clinic for a follow-up in [facility], with a history of DM since 2004. Hx of HLD, [place] on cpap, PTSD, schizoaffective disorder, anemia, hypothyroid,hypoglycemia comas, s/p bariatri surgery (2023) Lives on her own. Is working with [employer] on finding work. Sister lives in [place]. Parents have . See counseling weekly [facility] admission about early 2023 mo ago d/t N/V, had hypertensive crisis while admitted. Stopped lantus while inpatient d/t hypoglycemia as well. Stopped GLP and recommended to hold these until cleared further by surgery d/t gastroparesis and N/V/dehydration. 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 Is running groups for cooking and fozia, has grants for these and does not want to back off these. Is unsure if able to ask for help with managing this. Has been struggling with low mood overall. Continues to see counseling weekly. Has not reached out to PCP to discuss. Is not currently using toshia as will alarm a lot at work and not having permission to look at phonewhen alarming at work. Forgot glucometer today. Random BG in clinic 55. No symptoms with this, unsure if this or low mood is causing her fatigue today. Has not eaten yet today, was running late today. Did lower the metformin, does feel better on the lower dose. Did restart the lantus with higher BG readings. Does not take the lantus on days going to work. Continues to use the humalog as needed with BG's >200, will take 1-2 units. Has lost 3# since our last visit. Feel weight loss has stalled slightly recently. States neuropathy is getting better after surgery. Menses has stabilized better. Did not see podiatry, they have not reached out? Does try to soak feet 2X/week on days week. Did get new shoes that help when standing at work. TSH 1.34 (07/2023) Levothyroxine 200 mcg [facility] DM: dad, brother Recent A1C: 9.3 (10/2023) 8 (07/2023) 6.7 (05/2023) 10 (04/2023) PCP office 6.7 (01/2023) 5.8 (10/2022) 7.6 (05/2022) Cpep 2 (05/2023) Diabetic Medications: Metformin XR 500 mg twice daily Farxiga 5 mg daily Lantus 6 u AM and 5 units PM Humalog SS PRN >200 2 units >250 3 >300 4 >350 5 Intolerant mounjaro Current monitoring regimen: Frequency of monitoring? : toshia Fasting range: 200's Preprandial range: 160's-180's, will be much lower when at work Postprandial range: Any episodes of hypoglycemia? Yes? 87-95 has symptoms of lethargic, unfocused Cause of hypoglycemia? Nutrition Daily Recall: will have 1-2 meal/day, Breakfast: does not typically have Lunch: sandwich, frozen food, canned food Dinner: Snacks: PB/crackers Beverages: water 2-42 oz/day, crystal light, no etoh Exercise: walking daily 1hr, yoga weekly, gym twice weekly. Diabetes Related Problems Eye exam current (within one year): [facility], [facility], [facility] Last dental exam: overdue CVD,PVD,CAD: HLD, HTN Statin: rosuvastatin 40 mg, LDL 114 (07/2023) Aspirin: no ACEI/ARB: losartan 25 mg Prior visit with license issuer: CORNELIO Aguayo Foot care: self Comorbidities: Retinopathy: yes, will be getting laser treatment upcoming, along with the injections. Nephropathy/Kidney function: Lab Results Component Value Date CALCGFR 95 08/13/2023 MCR up to date? Lab Results Component Value Date Lab Urine Albumin to Creatinine Ratio 1,665 (H) 08/13/2023 Neuropathy: on gabapentin for nerve pain on tooth Location: BL feet-minimal, tooth-severe if missed meds Stable: yes Review of Systems Constitutional: Positive for fatigue. Eyes: Negative. Gastrointestinal: Negative. Endocrine: Negative. Genitourinary: Negative. Neurological: Positive for numbness. Psychiatric/Behavioral: Low mood Physical Exam Vitals and nursing note reviewed. Constitutional: Appearance: Normal appearance. HENT: Head: Normocephalic and atraumatic. Skin: General: Skin is warm and dry. Neurological: Mental Status: She is alert and oriented to person, place, and time. Psychiatric: Mood and Affect: Mood normal. Behavior: Behavior normal. Hemoglobin A1c, POC Date Value Ref Range Status 10/29/2023 9.3 (A) 5.7 % Final Lab Results Component Value Date UABCR 1,665 (H) 08/13/2023 Lab Results Component Value Date NA 139 08/13/2023 K 4.1 08/13/2023 CL 107 08/13/2023 CO2 29 08/13/2023 BUN 10 08/13/2023 Zenia Worley is a 33 y.o. female who presented to the clinic for a follow-up in [facility], with a history of DM since 2004. Problem List Items Addressed This Visit Endocrine/Metabolic Type 2 diabetes mellitus with hyperglycemia, with long-term current use of insulin ([facility]) - Primary Uncontrolled A1C 9.3 No BG's today. Reports elevations in AM. BG at 66 upon recheck, given juice, crackers/PB., additional to take with. Increase lantus 7 units PM and continue 6 units AM, continue to hold this mornings going to work [employer]. Continue with Metformin XR 500 mg twice daily and farxiga 5 mg daily. Restart toshia CGM when able, reach out to clinic after 1-2 weeks with start of this and plan to review data/make changes as needed. Letter written today to be able to look at phone during work for Toshia Cgm readings only and managea low glucose when occurring. Reach out if having lows <70's more than twice weekly! Keep up with daily hydration in water, balanced meals-adding vegetables/fruits/fiber/protein with all meals/snacks and activity daily as able. Follow-up in 2-3 months or sooner with concerns. Call podiatry to schedule visit. Strongly encouraged to rearrange work schedule to make psychiatry visit in 10 days to discuss medications with low mood over the past few months. Relevant Medications metFORMIN (GLUCOPHAGE-XR) 500 mg ER tablet insulin glargine 100 unit/mL (3 mL) injection pen HUMALOG KWIKPEN INSULIN 100 unit/mL injectable pen Other Relevant Orders POCT HEMOGLOBIN A1C (Completed) POCT GLUCOSE, MANUAL ENTRY (Completed) POCT GLUCOSE, MANUAL ENTRY (Completed) Other specified hypothyroidism TSH stable. BMI 60.0-69.9, adult ([facility]) Long-term insulin use ([facility]) USP 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 Cardiac/Vasculature Mixed hyperlipidemia LDL elevated, will monitor. Essential hypertension, benign BP at goal. Other Uses self-applied continuous glucose monitoring device Patient Goals: A1C <7% Exercise: 150-300 minutes of CV exercise/week. documented in this encounter Miscellaneous Notes * Assessment & Plan Note - Lisa Yan NP - 10/29/2023 1056 EDT Associated Problem(s): Type 2 diabetes mellitus with hyperglycemia, with long- term current use of insulin ([facility]) Uncontrolled A1C 9.3 No BG's today. Reports elevations in AM. BG at 66 upon recheck, given juice, crackers/PB., additional to take with. Increase lantus 7 units PM and continue 6 units AM, continue to hold this mornings going to work [employer]. Continue with Metformin XR 500 mg twice daily and farxiga 5 mg daily. Restart toshia CGM when able, reach out to clinic after 1-2 weeks with start of this and plan to review data/make changes as needed. Letter written today to be able to look at phone during work for Toshia Cgm readings only and managea low glucose when occurring. Reach out if having lows <70's more than twice weekly! Keep up with daily hydration in water, balanced meals-adding vegetables/fruits/fiber/protein with all meals/snacks and activity daily as able. Follow-up in 2-3 months or sooner with concerns. Call podiatry to schedule visit. Strongly encouraged to rearrange work schedule to make psychiatry visit in 10 days to discuss medications with low mood over the past few months. * Assessment & Plan Note - Lisa Yan NP - 10/29/2023 1038 EDT Associated Problem(s): Mixed hyperlipidemia LDL elevated, will monitor. * Assessment & Plan Note - Lisa Yan NP - 10/29/2023 1038 EDT Associated Problem(s): Essential hypertension, benign BP at goal. * Addendum Note - Shari Hsu RN - 10/29/2023 1030 EDTAddended by: SHARI HSU on: 10/29/2023 11:28 Modules accepted: Orders * Assessment & Plan Note - Lisa Yan NP - 10/29/2023 1026 EDT Associated Problem(s): Other specified hypothyroidism TSH stable. documented in this encounter Plan of Treatment Upcoming Encounters Date Type Department Care Team (Late st Contact Info) Description 01/28/2024 10:30 EDT Office Visit [facility] Endocrinology [address] [place] [address] Lisa Yan NP 130 [facility] [address] [place] [phone] documented as of this encounter Procedures Procedure Name Priority Date/Time Associated Diagnosis Comments POCT GLUCOSE, MANUAL ENTRY Routine 10/29/2023 Type 2 diabetes mellitus with hyperglycemia, with long-term current use of insulin ([facility]) POCT GLUCOSE, MANUAL ENTRY Routine 10/29/2023 Type 2 diabetes mellitus with hyperglycemia, with long-term current use of insulin ([facility]) POCT GLUCOSE, MANUAL ENTRY Routine 10/29/2023 Type 2 diabetes mellitus with hyperglycemia, with long-term current use of insulin ([facility]) POCT HEMOGLOBIN A1C Routine 10/29/2023 Type 2 diabetes mellitus with hyperglycemia, with long-term current use of insulin ([facility]) documented in this encounter Results * (ABNORMAL) POCT GLUCOSE, MANUAL ENTRY (10/29/2023) Glucose, POC 143(A) 70 - 100 mg/dL [facility] POINT OF CARE HN LAB POC COMMENT MANUAL (GLUCOSE) [facility] POINT OF utilization management rn ID [facility] POIN T OF CARE Blood CAPILLARY BLOOD / Unknown 10/29/2023 Lisa Yan PROCESS DESIGN ENGINEER POINT OF CARE SARAY T ORDERABLES Performing Organization Address [facility]/ZIP Co de Phone Number [facility] POINT OF CARE * (ABNORMAL) POCT GLUCOSE, MANUAL ENTRY (10/29/2023) Glucose, POC 55(A) 70 - 100 mg/dL [facility] POINT OF CARE HN LAB POC COMMENT MANUAL (GLUCOSE) [facility] POINT OF utilization management rn ID [facility] POIN T OF CARE Blood CAPILLARY BLOOD / Unknown 10/29/2023 Lisa Yan PROCESS DESIGN ENGINEER POINT OF CARE SARAY T ORDERABLES Performing Organization Address City/[facility]/ZIP Co de Phone Number [facility] POINT OF CARE * (ABNORMAL) POCT GLUCOSE, MANUAL ENTRY (10/29/2023) Glucose, POC 66(A) 70 - 100 mg/dL [facility] POINT OF CARE HN LAB POC COMMENT MANUAL (GLUCOSE) [facility] POINT OF utilization management rn ID [facility] POIN T OF CARE Blood CAPILLARY BLOOD / Unknown 10/29/2023 Lisa Yan PROCESS DESIGN ENGINEER POINT OF CARE SARAY T ORDERABLES Performing Organization Address City/[facility]/ZIP Co de Phone Number [facility] POINT OF CARE * (ABNORMAL) POCT HEMOGLOBIN A1C (10/29/2023) Hemoglobin A1c, POC 9.3(A) 5.7 % [facility] POINT OF CARE Blood CAPILLARY BLOOD / Unknown 10/29/2023 Lisa Yan NP POINT OF CARE SARAY T ORDERABLES [facility] POINT OF CARE documented in this encounter Visit Diagnoses Diagnosis Type 2 diabetes mellitus with hyperglycemia, with long-term current use of insulin ([facility])- Primary Long-term insulin use ([facility]) Encounter for long-term (current) use of insulin USP 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 BMI 60.0-69.9, adult ([facility]) Body Mass Index 60.0-69.9, adult Other specified hypothyroidism Uses self-applied continuous glucose monitoring device Essential hypertension, benign Mixed hyperlipidemia documented in this encounter Discontinued Medications Medication Sig Discontinue Reason Start Date End Da te doxepin (SILENOR) 6 mg tablet Take 1 Tablet by mouth at bedtime as needed. Abstraction 08/18/2022 10/29/2023 metFORMIN (GLUCOPHAGE-XR) 500 mg ER tabletIndications:Type 2 diabetes mellitus with hyperglycemia, with long-term current use of insulin ([facility]) Take 2 Tablets by mouth 2 times daily. 08/30/2023 10/29/2023 HUMALOG KWIKPEN INSULIN 100 unit/mL injectable pen Sliding scale with meals if needed Reorder 08/10/2023 10/29/2023 insulin glargine 100 unit/mL (3 mL) injection pen E11.65 6 units am, 5 units pm 09/08/2023 10/29/2023 documented as of this encounter Historical Medications * This list may reflect changes made after this encounter. Medication Sig Dispensed Refills Start Date End Date UNABLE TO FIND Med Name: calcium chewable- unure of dose or formulation, and mvi, doxepin (SINEQUAN) 10 mg capsule 10/04/2023 added in this encounter Care Teams Radio Operator Ground Relationship Specialty Start Date End Date Lia Pearson APRN [address] [place] [address] [phone] PCP - General Family Medicine - [facility] Medicine 09/26/21 Lisa Yan, BERNIE [address] [place] [address] [phone] Nurse Practitioner Endocrinology, Diabetes and Metabolism 03/19/21 Lisa Yan NP [address] [place] [phone] Nurse Practitioner Endocrinology, Diabetes and Metabolism 06/06/21 documented as of this encounter
--- OUTSIDE RECORDS SUMMARY | 2023-11-26 19:33 | XMS_ITS | Referral Summary ---
Author Organization [facility] Address [address] [place] [address] Care Team Providers Care Charge Out Clerk Name Role Phone Lisa Yan GIN POLE OPERATOR Unavailable Lisa Yan GIN POLE OPERATOR Unavailable Lia Pearson APRN Primary Care Provider [phone] Encounters Date Type Department Care Team Description 10/29/2023 Telephone [facility] Endocrinology [address] [place] [address] Tasha Tavares RN Medication Questions 10/29/2023 10:30 EDT Office Visit [facility] Endocrinology [address] [place] [address] Lisa Yan, BERNIE Type 2 diabetes mellitus with hyperglycemia, with long-term current use of insulin ([facility]) (Primary Dx); Long-term insulin use (HCC-CMS); 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; BMI 60.0-69.9, adult (HCC-CMS); Other specified hypothyroidism; Uses self-applied continuous glucose monitoring device; Essential hypertension, benign; Mixed hyperlipidemia 09/28/2023 Refill [facility] Endocrinology [address] [place] [address] Tasha Tavares, TOM Medications Refill 09/07/2023 Telephone [facility] Endocrinology [address] [place] [address] Lilibeth Arguello RN Medication Management 08/31/2023 Evaluation [facility] Endocrinology [address] [place] [address] Lisa Yan NP Type 2 diabetes mellitus with hyperglycemia, with long-term current use of insulin ([facility]) (Primary Dx); Long-term insulin use ([facility]); 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 Active polyethylene glycol (MIRALAX) 17 gram/dose powder Take 17 g by mouth daily. prn Active prazosin (MINIPRESS) 5 mg capsule at bedtime. 03/01/20 21 Active insulin pen needles 32G x 5/32 (PEN NEEDLE) 1 pen needle by misc (non-drug; combo route) route 5 times daily. 500 Each 2 06/09/19 22 Active ferrous gluconate (FERATE) 324 mg (37.5 mg iron) tablet tablet Take 1 Tablet by mouth 2 times daily with breakfast and dinner. 08/22/19 22 Active cyanocobalamin (VITAMIN B-12) 500 mcg tablet Take 2 Tablets by mouth daily. Active norethindrone (AYGESTIN) 5 mg tablet Take 1 Tablet by mouth daily. Taking 2 tabs daily 3 times daily 11/28/19 22 Active glucose 4 gram tablet,chewable chewable tablet CHEW ONE TABLET BY MOUTH EVERY 10 MIN. NEEDED FOR HYPOGLYCEMIA UNTIL SYMPTOMS OF LOW BLOOD SUGAR ARE CONTROLLED 11/22/19 22 Active chlorproMAZINE (THORAZINE) 50 mg tablet Take 1 Tablet by mouth at bedtime. 12/19/19 22 Active acetaminophen (TYLENOL) 325 mg tablet TAKE TWO TABLETS BY MOUTH EVERY 4 HOURS NEEDED FOR PAIN 03/06/20 22 Active traZODone (DESYREL) 150 mg tablet Take 2 Tablets by mouth at bedtime. 06/16/19 23 Active POISE PADS pad USE FOR ABNORMAL VAGINAL BLEEDING 06/05/19 23 Active PREVAIL EXTRA UNDERWEAR misc USE FOR ABNORMAL VAGINAL BLEEDING 06/07/19 23 Active chlorproMAZINE (THORAZINE) 100 mg tablet Take 3 Tablets by mouth daily. 10/23/19 23 Active ARIPiprazole (ABILIFY) 20 mg tablet TAKE 1 TABLET BY MOUTH ONCE DAILY FOR SCHIZOAFFECTIVE DISORDER BIPOLAR TYPE 10/16/19 23 Active ONETOUCH DELICA PLUS LANCET 33 gauge misc 09/07/19 23 Active rosuvastatin (CRESTOR) 40 mg tablet Take 1 Tablet by mouth at bedtime. 90 Tablet 3 02/27/20 23 Active FARXIGA 5 mg tablet Take 5 mg by mouth daily. 90 Tablet 3 06/01/19 24 Active ARIPiprazole (ABILIFY) 5 mg tablet Take 1 Tablet by mouth daily. 05/24/19 24 Active omeprazole (PRILOSEC) 40 mg capsule Take 1 Capsule by mouth every morning. 06/08/19 24 Active ondansetron (ZOFRAN-ODT) 4 mg disintegrating tablet 06/08/19 24 Active prochlorperazine (COMPAZINE) 5 mg tablet 1 Tablet. prn 06/08/19 24 Active ursodioL (ACTIGALL) 300 mg capsule Take 1 Capsule by mouth 2 times daily. 06/17/19 24 12/13/ 024 Active methocarbamoL (ROBAXIN) 500 mg tablet 01/15/20 23 Active hydrOXYzine (VISTARIL) 25 mg capsule Take 1 Capsule by mouth 3 times daily as needed. 05/18/19 24 Active pen needle,diabetic dual safty (BD AUTOSHIELD DUO PEN NEEDLE) 30 gauge x 3/16 needle USE UP TO 5 PEN NEEDLES DAILY 500 Each 3 06/30/19 24 Active metoprolol SUCCinate (TOPROL-XL) 100 mg tablet 03/05/20 23 Active losartan (COZAAR) 100 mg tablet Take 1 Tablet by mouth daily. 07/14/19 24 Active furosemide (LASIX) 20 mg tablet TAKE 1 TO 2 TABLETS BY MOUTH EVERY MORNING 02/10/20 23 Active Cholecalciferol, Vitamin D3, 50 mcg capsule Take 1 Capsule by mouth daily. 07/14/19 24 Active Underpads 30 X 36 pad USE ONCE DAILY NEEDED 12/14/19 Active GLUCAGEN HYPOKIT 1 mg recon soln INJECT 1MG UNDER THE SKIN EVERY 20 MIN NEEDED UNTIL BLOOD SUGAR ATTAINED 01/07/20 23 Active ONETOUCH VERIO TEST STRIPS test strips USE TO TEST BLOOD SUGARS BEFORE MEALS AND AT BEDTIME TO MAINTAIN A1C LESS THAN 7 08/22/19 23 Active levothyroxine (SYNTHROID) 200 mcg tabletIndications :Other specified hypothyroidism Take 1 Tablet by mouth daily. 90 Tablet 3 08/30/19 24 Active gabapentin (NEURONTIN) 300 mg capsule TAKE ONE CAPSULE BY MOUTH THREE TIMES A DAY 270 Capsule 1 09/28/19 24 Active doxepin (SINEQUAN) 10 mg capsule 10/04/19 24 Active UNABLE TO FIND Med Name: calcium chewable- unure of dose or formulation, and mvi, Active metFORMIN (GLUCOPHAGE-XR) 500 mg ER tabletIndications :Type 2 diabetes mellitus with hyperglycemia, with long-term current use of insulin ([facility]) Take 1 Tablet by mouth 2 times daily. 180 Tablet 3 10/29/19 24 Active HUMALOG KWIKPEN INSULIN 100 unit/mL injectable penIndications:Ty pe 2 diabetes mellitus with hyperglycemia, with long-term current use of insulin ([facility]) TDD 10 units, 1-5 units with meals twice daily 15 mL 2 10/29/19 24 Active insulin glargine 100 unit/mL (3 mL) injection penIndications:Ty pe 2 diabetes mellitus with hyperglycemia, with long-term current use of insulin ([facility]) Inject 6 Units into the skin once daily AND 7 Units at bedtime. E11.65. 15 mL 2 10/29/19 24 Active doxepin (SILENOR) 6 mg tablet Take 1 Tablet by mouth at bedtime as needed. 08/19/19 23 024 Discontinued(Ab straction) HUMALOG KWIKPEN INSULIN 100 unit/mL injectable pen Sliding scale with meals if needed 08/10/19 24 024 Discontinued(Re order) metFORMIN (GLUCOPHAGE-XR) 500 mg ER tabletIndications :Type 2 diabetes mellitus with hyperglycemia, with long-term current use of insulin ([facility]) Take 2 Tablets by mouth 2 times daily. 360 Tablet 3 08/30/19 24 024 Discontinued insulin glargine 100 unit/mL (3 mL) injection pen E11.65 6 units am, 5 units pm 15 mL 2 09/08/19 24 024 Discontinued insulin glargine 100 unit/mL (3 mL) injection penIndications:Ty pe 2 diabetes mellitus with hyperglycemia, with long-term current use of insulin ([facility]) Inject 6 Units into the skin once daily AND 7 Units at bedtime. E11.65 6 units am, 5 units pm. 15 mL 2 10/29/19 24 024 Discontinued(Re order) Active Problems Patient Care Coordination No te Formatting of this note migh t be different from the original. CLINIC: Unable to access PT's MBI without her SSN, please ask PT for this information at appt. Yudi Davis 12/03/2020 13:48 Problem Noted Date Diagnosed Date Uses self-applied continuous glucose monitoring device 08/13/2023 Long-term insulin use ([facility]) 09/26/2021 residential 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 09/26/2021 Essential hypertension, benign 09/26/2021 Last Assessment & Plan: BP at goal. BMI 60.0-69.9, adult ([facility]) 03/19/2021 Last Assessment & Plan: Long discussion on bariatric surgery today. Would like to have clearance from cardiology prior to with her recent CV concerns. Schizoaffective disorder ([facility]) 02/26/2021 Dissociation 02/26/2021 PTSD (post-traumatic stress disorder) 02/26/2021 [place] (obstructive sleep apnea) 02/26/2021 Last Assessment & Plan: Encouraged to reach out to PCP for new referral, let our office know which clinic and happy to send this as well. Reach out to CPAP supplier to see if able to get different mask/el to help prevent rubbing. Type 2 diabetes mellitus wit h hyperglycemia, with long-term current use of insulin ([facility]) 02/26/2021 Last Assessment & Plan: Uncontrolled A1C 9.3 No BG's today. Reports elevations in AM. BG at 66 upon recheck, given juice, crackers/PB., additional to take with. Increase lantus 7 units PM and continue 6 units AM, continue to hold this mornings going to work at [employer]. Continue with Metformin XR 500 mg twice daily and farxiga 5 mg daily. Restart toshia CGM when able, reach out to clinic after 1-2 weeks with start of this and plan to review data/make changes as needed. Letter written today to be able to look at phone during work for [employer] Cgm readings only and manage a low glucose when occurring. Reach out if [...] low mood over the past few months. Other specified hypothyroidism 02/26/2021 Last Assessment & Plan: TSH stable. Mixed hyperlipidemia 02/26/2021 Last Assessment & Plan: LDL elevated, will monitor. Social History Tobacco Use Types Packs/Day Years [...] Sexual Orientation Asexual 12/31/2021 11 :23 EDT Last Filed Vital Signs Vital Sign Reading Time Taken Comments Blood Pressure 100/76 10/29/2023 1025 EDT Pulse 80 10/29/2023 1025 EDT Temperature - - Respiratory Rate 20 10/29/2023 1025 EDT Oxygen Saturation - - Inhaled Oxygen Concentration - - Weight 171.9 kg (379 lb) 10/29/2023 1025 EDT Height 165.1 cm (5' 5) 10/29/2023 1025 EDT Body Mass Index 63.07 10/29/2023 1025 EDT Plan of Treatment Upcoming Encounters Date Type Department Care Team (Late st Contact Info) Description 01/28/2024 10:30 EDT Office Visit [facility] Endocrinology [address] [place] [address] Lisa Yan, BERNIE [address] [facility] [address] [place] [address] Procedures Procedure Name Priority Date/Time Associated Diagnosis Comments POCT GLUCOSE, MANUAL ENTRY Routine 10/29/2023 Type 2 diabetes mellitus with hyperglycemia, with long-term current use of insulin ([facility]) POCT GLUCOSE, MANUAL ENTRY Routine 10/29/2023 Type 2 diabetes mellitus with hyperglycemia, with long-term current use of insulin ([facility]) POCT GLUCOSE, MANUAL ENTRY Routine 10/29/2023 Type 2 diabetes mellitus with hyperglycemia, with long-term current use of insulin ([facility]) POCT HEMOGLOBIN A1C Routine 10/29/2023 Type 2 diabetes mellitus with hyperglycemia, with long-term current use of insulin ([facility]) LIPID PROFILE (INCLUDES CHOLESTEROL, TRIGLYCERIDES, HDL, LDL) Routine 08/13/2023 9:58 EDT Type 2 diabetes mellitus with hyperglycemia, with long-term current use of insulin ([facility]) URINE [id number] E RATIO (ACR) Routine 08/13/2023 9:58 EDT Type 2 diabetes mellitus with hyperglycemia, with long-term current use of insulin ([facility]) from Last 3 Months or Most Recently Relevant to Health Maintenance Results * (ABNORMAL) POCT GLUCOSE, MANUAL ENTRY (10/29/2023) Only the most recent of3 resultswithin the time period is included. Glucose, POC 143(A) 70 - 100 mg/dL [facility] POINT OF CARE HN LAB POC COMMENT MANUAL (GLUCOSE) [facility] POINT OF salesperson flying squad ID [facility] POIN T OF CARE Blood CAPILLARY BLOOD / Unknown 10/29/2023 Lisa Yan GIN POLE OPERATOR POINT OF CARE SARAY T ORDERABLES Performing Organization Address City/[facility]/ZIP Co de Phone Number [facility] POINT OF CARE * (ABNORMAL) POCT HEMOGLOBIN A1C (10/29/2023) Hemoglobin A1c, POC 9.3(A) 5.7 % [facility] POINT OF CARE Blood CAPILLARY BLOOD / Unknown 10/29/2023 Lisa Yan NP POINT OF CARE SARAY T ORDERABLES Performing Organization Address [facility] de Phone Number [facility] POINT OF CARE * (ABNORMAL) URINE [id number] RATIO (ACR) (08/13/2023 9:58 EDT) Albumin, Urine 74.1 See Note mg/dL 2023 17:[address] [facility] Comment: NOTE: Reference range not established Creatinine, Urine 44.5 See Note mg/dL 08/13/2023 17:16 [facility] Comment: NOTE: Reference range not established Lab Urine Albumin to Creatinine Ratio 1,665(H) <30 ??g/mg Creatinine 08/13/2023 17:[address] [facility] Comment: Urine Albumin/Creatinine Ratio: Normal: <30 ug/mg Creatinine Moderately increased albuminuria: 30-300 ug/mg Creatinine Severely increased albuminuria: >300 ug/mg Creatinine Urine URINE / Unknown Urine Collect / Unknown 08/13/2023 9:58 EDT 08/13/2023 11:25 EDT Lisa Yan NP CHEMISTRY & BLOOD GAS ORDERABLES Performing Organization Address City/[facility]/ZIP Co de Phone Number [facility] [address] [place] [address] * (ABNORMAL) LIPID PROFILE (INCLUDES CHOLESTEROL, TRIGLYCERIDES, HDL, LDL) (08/13/2023 9:58 EDT) Cholesterol 175 <200 mg/dL 08/13/2023 11:[address] [facility] Comment:Note that therapeuti c goals will differ between patients based on cardiac risk factors and current medical therapy. HDL 43(L) >=50 mg/dl 08/13/2023 11:[address] [facility] Comment:Note that therapeuti c goals will differ between patients based on cardiac risk factors and current medical therapy. LDL, Calculated 114 <160 mg/dL 11:11 [facility] Comment:Note that therapeuti c goals will differ between patients based on cardiac risk factors and current medical therapy. Triglyceride 90 <=150 mg/dL 08/13/2023 11:11 [facility] Comment:Note that therapeuti c goals will differ between patients based on cardiac risk factors and current medical therapy. Chol/HDL Ratio 4.1 See Note 08/13/2023 11:11 [facility] Comment: NOTE: Desirable Ratio = <4.1 Patient At Risk Ratio = >5.0(Males) ?>6.0(Females) Non HDL Cholesterol 132 <160 mg/dL 08/13/2023 11:11 [facility] Comment:Note that therapeuti c goals will differ between patients based on cardiac risk factors and current medical therapy. Blood VENOUS BLOOD / Unknown Venipuncture / Unknown 08/13/2023 9:58 EDT 08/13/2023 10:24 EDT Lisa Yan NP CHEMISTRY & BLOOD GAS ORDERABLES [facility] [address] [place] [address] from Last 3 Months or Most Recently Relevant to Health Maintenance Care Teams Charge Out Clerk Relationship Specialty Start Date End Date Lia Pearson APRN [address] [place] [address] [id number] PCP - General Family Medicine - [facility] 09/26/21 Lisa Yan GIN POLE OPERATOR [address] [place] [address] [address] [place] [id number] Nurse Practitioner Endocrinology, Diabetes and Metabolism 03/19/21 Lisa Yan NP [address] [place] [address] [address] [place] [phone] Nurse Practitioner Endocrinology, Diabetes and Metabolism 06/06/21
--- OUTSIDE RECORDS SUMMARY | 2023-11-26 19:33 | XMS_ITS | Clinical Summary ---
Author Organization [facility] Address [address] [place] [address] Care Team Providers Care 3D Modeler Name Role Phone Lisa Yan DIRECTOR OF PRODUCT DEVELOPMENT Unavailable [phone] Lisa Yan DIRECTOR OF PRODUCT DEVELOPMENT Unavailable Lia Pearson APRN Primary Care Provider [phone] Allergies Active Allergy Reactions Criticality Noted Date [...] 21 Active insulin pen needles 32G x /32 (PEN NEEDLE) 1 pen needle by misc [...] by mouth 2 times daily. 06/17/19 24 024 Active methocarbamoL (ROBAXIN) 500 mg tablet [...] hyperglycemia, with long-term current use of insulin ([facility]) Take 1 Tablet by mouth 2 times daily. 180 Tablet 3 10/29/19 24 Active HUMALOG KWIKPEN INSULIN 100 unit/mL injectable penIndications:Ty pe 2 diabetes mellitus with hyperglycemia, with long-term current use of insulin ([facility]) TDD 10 units, 1-5 units with meals twice daily 15 mL 2 10/29/19 24 Active insulin glargine 100 unit/mL (3 mL) injection penIndications:Ty pe 2 diabetes mellitus with hyperglycemia, with long-term current use of insulin ([facility]) Inject 6 Units into the skin once [...] hyperglycemia, with long-term current use of insulin ([facility]) Take 2 Tablets by mouth 2 times daily. 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 BMI 60.0-69.9, adult ([facility]) 03/19/2021 Last Assessment & Plan: Long discussion on bariatric surgery today. Would like to have clearance from cardiology prior to with her recent CV concerns. Schizoaffective disorder ([facility]) 02/26/2021 Dissociation 02/26/2021 PTSD (post-traumatic stress disorder) [...] hyperglycemia, with long-term current use of insulin ([facility]) 02/26/2021 Last Assessment & Plan: Uncontrolled A1C 9.3 No BG's today. Reports elevations in AM. BG at 66 upon recheck, given juice, crackers/PB., additional to take with. Increase lantus 7 units PM and continue 6 units AM, continue to hold this mornings going to work at [employer]. Continue with Metformin XR 500 mg twice [...] Assessment & Plan: LDL elevated, will monitor. 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; BMI 60.0-69.9, adult ([facility]); Other specified hypothyroidism; Uses self-applied continuous glucose monitoring device; Essential hypertension, benign; Mixed hyperlipidemia 10/29/2023 Telephone [facility] [address] [place] [address] Tasha Tavares RN Medication Questions 09/28/2023 Refill [facility] [address] [place] [address] Tasha Tavares RN Medications Refill 09/07/2023 Telephone [facility] [address] [place] [address] Lilibeth Arguello RN Medication Management 08/31/2023 Evaluation [facility] [address] [place] [address] Lisa Yan NP Type 2 diabetes mellitus with hyperglycemia, with long-term current use of insulin ([facility]) (Primary Dx); Long-term insulin use ([facility]); retirement 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 08/30/2023 Refill [facility] [address] [place] [address] Tasha Tavares RN Medications Refill 08/30/2023 Telephone [facility] [address] [place] [address] Lilibeth Arguello RN Blood Glucose Review from Last 3 Months Social History Tobacco Use Types Packs/Day Years [...] Sexual Orientation Asexual 12/31/2021 11 :23 EDT Obstetrics History Last Filed Vital Signs Vital Sign Reading [...] Info) Description 01/28/2024 10:30 EDT [facility] [address] [place] [address] Lisa Yan NP [address] [facility] [address] [place] [address] Health Maintenance Due Date Last Done Comments Hepatitis C Screen 1992 Pneumococcal Immunization (1 of 2 - PCV) 1998 Hepatitis B Vaccine (1 of 3 - 19+ 3-dose series) 2011 Eye Exam 01/08/2023 01/08/2022 COVID-19 Vaccine (1 - 2022-2 4 season) 2023 Hemoglobin A1C (Ha1C) 04/29/2024 10/29/2023 , 08/13/2023, 01/29/2023, Additional history exists Foot Exam 08/12/2024 08/13/2023, 07/16, 12/18/2021, Additional history exists Lipid Profile Screening (Cholesterol) 08/12/2024 08/13/2023 Microalbumin/Creatinine Ratio 08/12/2024, 06/18/2022, 11/13/2021 Procedures Procedure Name Priority Date/Time Associated Diagnosis Comments POCT GLUCOSE, MANUAL ENTRY Routine 10/29/2023 Type 2 diabetes mellitus with hyperglycemia, with long-term current use of insulin ([facility]) POCT GLUCOSE, MANUAL ENTRY Routine 10/29/2023 Type 2 diabetes mellitus with hyperglycemia, with long-term current use of insulin ([facility]) POCT GLUCOSE, MANUAL ENTRY Routine 10/29/2023 Type 2 diabetes mellitus with hyperglycemia, with long-term current use of insulin ([facility]) POCT HEMOGLOBIN A1C Routine 10/29/2023 Type 2 diabetes mellitus with hyperglycemia, with long-term current use of insulin ([facility]) LIPID PROFILE (INCLUDES CHOLESTEROL, TRIGLYCERIDES, HDL, LDL) Routine 08/13/2023 9:58 EDT Type 2 diabetes mellitus with hyperglycemia, with long-term current use of insulin ([facility]) URINE HGMQUAV-RV-DEGBLICUM E RATIO (ACR) Routine 08/13/2023 9:58 EDT Type 2 diabetes mellitus with hyperglycemia, with long-term current use of insulin ([facility]) from Last 3 Months or Most Recently Relevant to Health Maintenance Results * (ABNORMAL) POCT GLUCOSE, MANUAL ENTRY (10/29/2023) Only the most recent of3 resultswithin the time period is included. Glucose, POC 143(A) 70 - 100 mg/dL [facility] POINT OF CARE HN LAB POC COMMENT MANUAL (GLUCOSE) [facility] POINT OF purchasing contracting clerk ID [facility] POIN T OF CARE Blood CAPILLARY BLOOD / Unknown 10/29/2023 Lisa Yan NP POINT OF CARE SARAY T ORDERABLES Performing Organization Address [facility] Co de Phone Number [facility] POINT OF [facility] * (ABNORMAL) POCT HEMOGLOBIN A1C (10/29/2023) Hemoglobin A1c, POC 9.3(A) 5.7 % [facility] POINT OF CARE Blood CAPILLARY BLOOD / Unknown 10/29/2023 Lisa Yan NP POINT OF CARE SARAY T ORDERABLES [facility] POINT OF CARE * (ABNORMAL) URINE WTYZAJT-CH-UBGASBFRAK RATIO (ACR) (08/13/2023 9:58 EDT) Albumin, Urine 74.1 See Note mg/dL 2023 17:16 EDT [facility] Comment: NOTE: Reference range not established Creatinine, Urine 44.5 See Note mg/dL 08/13/2023 17:16 EDT [facility] Comment: NOTE: Reference range not established Lab Urine Albumin to Creatinine Ratio 1,665(H) <30 ??g/mg Creatinine 08/13/2023 17:16 T [facility] Comment: Urine Albumin/Creatinine Ratio: Normal: <30 ug/mg Creatinine Moderately increased albuminuria: 30-300 ug/mg Creatinine Severely increased albuminuria: >300 ug/mg Creatinine Urine URINE / Unknown Urine Collect / Unknown 08/13/2023 9:58 EDT 08/13/2023 11:25 EDT Lisa Yan NP CHEMISTRY & BLOOD GAS ORDERABLES [facility] [address] [place] [address] * (ABNORMAL) LIPID PROFILE (INCLUDES CHOLESTEROL, TRIGLYCERIDES, HDL, LDL) (08/13/2023 9:58 EDT) Cholesterol 175 <200 mg/dL 08/13/2023 11:11 [facility] Comment:Note that therapeuti c goals will differ between patients based on cardiac risk factors and current medical therapy. HDL 43(L) >=50 mg/dl 08/13/2023 11:11 [facility] Comment:Note that therapeuti c goals will differ between patients based on cardiac risk factors and current medical therapy. LDL, Calculated 114 <160 mg/dL 11:11 [facility] Comment:Note that therapeuti c goals will differ between patients based on cardiac risk factors and current medical therapy. Triglyceride 90 <=150 mg/dL 08/13/2023 11:11 [facility] Comment:Note that therapeuti c goals will differ between patients based on cardiac risk factors and current medical therapy. Chol/HDL Ratio 4.1 See Note 08/13/2023 11:11 [facility] Comment: NOTE: Desirable Ratio = <4.1 Patient At Risk Ratio = >5.0(Males) ?>6.0(Females) Non HDL Cholesterol 132 <160 mg/dL 08/13/2023 11:11 EDT [facility] Comment:Note that therapeuti c goals will differ between patients based on cardiac risk factors and current medical therapy. Blood VENOUS BLOOD / Unknown Venipuncture / Unknown 08/13/2023 9:58 EDT 08/13/2023 10:24 EDT Lisa Yan NP CHEMISTRY & BLOOD GAS ORDERABLES [facility] [address] [place] [address] from Last 3 Months or Most Recently Relevant to Health Maintenance Care Teams 3D Modeler Relationship Specialty Start Date End Date Lia Pearson APRN [address] [place], [place] [id number] PCP - General Family Medicine - [facility] Medicine 09/26/21 Lisa Yan DIRECTOR OF PRODUCT DEVELOPMENT [address] [place] [address] [address] [place] [phone] Nurse Practitioner Endocrinology, Diabetes and Metabolism 03/19/21 Lisa Yan DIRECTOR OF PRODUCT DEVELOPMENT [address] [place] [address] [address] [place] [address] Nurse Practitioner Endocrinology, Diabetes and Metabolism 06/06/21
--- OUTSIDE RECORDS SUMMARY | 2023-11-26 19:33 | XMS_ITS | Encounter Summary ---
[place] [address] Care Team Providers Care Building Construction Supervisor Name Role Phone Lia Pearson APRN Primary Care Provider [phone] Reason for Referral * Consultation (Routine) - Closed Specialty Diagnoses / Procedures Referred By Della kern Referred To Contact Hematology and Oncology Diagnoses Von Willebrand's disease Lia Pearson APRN [address] [address] [facility] [address] [place] [address] Referral ID Status Reason Start Date Expiration Date V isits Requested Visits Authorized [id number] Closed Consult, Test & Treat 10/15/2021 10/15/2022 1 1 Encounter Details Date Type Department Care Team (Latest Contact Info) Description 10/15/2021 Transcribe Orders eDH Incoming Referrals [phone] Lia Pearson APRN [address] [place], [place] [id number] Von Willebrand's disease Social History Tobacco Use Types Packs/Day Years [...] EDT TH Visit (TeleHealth) [place] [address] Michael Morgan, [facility] [place] [address] documented as of this encounter Procedures Procedure Name Priority Date/Time Associated Diagnosis Comments AMB REFERRAL TO HEMATOLOGY AND ONCOLOGY Routine 01/07/2022 3:56 PM EDT Von Willebrand's disease documented in this encounter Results * Referral to Hematology and Oncology (01/07/2022 3:56 PM EDT) Lia Pearson APRN OUTPATIENT REFERRAL ORDERABLES documented in this encounter Visit Diagnoses Diagnosis Von Willebrand's disease documented in this encounter Care Teams Building Construction Supervisor Relationship Specialty Start Date End Date Lia Pearson APRN [address] [place] [address] PCP - General Geriatric Medicine 10/15/21 01/26/22 documented as of this encounter
--- OUTSIDE RECORDS SUMMARY | 2023-11-26 19:33 | XMS_ITS | Encounter Summary ---
Author Organization [facility] Address [address] [place] [address] Care Team Providers Care General Lot Attendant Name Role Phone Lisa Yan MANAGER RESTAURANT Unavailable [phone] Lisa Yan MANAGER RESTAURANT Unavailable [phone] Lia Pearson APRN Primary Care Provider [phone] Reason for Visit * Reason Onset Date Comments Medication Management 06/01/2023 Encounter Details Date Type Department Care Team (Late st Contact Info) Description 06/01/2023 Telephone [facility] End[facility]ology [address] [place] [address] [phone] Shari Hsu RN Medication Management Social History Tobacco Use Types Packs/Day Years [...] Dispensed Refills Start Date End Da te FARXIGA 5 mg tablet Take 5 mg by mouth daily. 90 Tablet 3 06/01/2023 documented in this encounter Miscellaneous Notes * Telephone Encounter - Shari Hsu RN - 06/01/2023 1353 EST Rx sent-pt messaged * Telephone Encounter - Lisa Yan NP - 06/01/2023 1333 EST Okay to switch farxiga 5 mg daily. Thanks * Telephone Encounter - Shari Hsu RN - 06/01/2023 1331 EST Ins. Prefers farxiga- ok to switch / needs to try and fail before approve jardiance documented in this encounter Plan of Treatment Upcoming Encounters Date Type Department Care Team (Late st Contact Info) Description 01/28/2024 10:30 EDT Office Visit [facility] Endocrinology [address] [place], [place] [phone] Lisa Yan NP [address] [place] [phone] documented as of this encounter Visit Diagnoses Not on filedocumented in this encounter Discontinued Medications Medication Sig Discontinue Reason Start Date End Da te empagliflozin (JARDIANCE) 10 mg tablet Take 1 Tablet by mouth daily. 12/17/2022 06/01/2023 documented as of this encounter Care Teams General Lot Attendant Relationship Specialty Start Date End Date Lia Pearson APRN [address] [place] [id number] PCP - General Family Medicine - [facility] Medicine 09/26/21 Lisa Yan NP [address] [place] [phone] Nurse Practitioner Endocrinology, Diabetes and Metabolism 03/19/21 Lisa Yan NP [address] [place] [phone] Nurse Practitioner Endocrinology, Diabetes and Metabolism 06/06/21 documented as of this encounter
--- OUTSIDE RECORDS SUMMARY | 2023-11-26 19:33 | XMS_ITS | Encounter Summary ---
Author Organization [facility] Address [address] [place] [address] Care Team Providers Care Media Coordinator Name Role Phone Lisa Yan LATENT FINGERPRINT EXAMINER Unavailable Lisa Yan LATENT FINGERPRINT EXAMINER Unavailable Lia Pearson APRN Primary Care Provider [phone] Reason for Visit * Reason Comments Diabetes Encounter Details Date Type Department Care Team (Late st Contact Info) Description 08/31/2023 Evaluation [facility] [address] [place] [address] Lisa Yan LATENT FINGERPRINT EXAMINER [address] [facility] [address] [place] [address] Type 2 diabetes mellitus with hyperglycemia, with long-term current use of insulin ([facility]) (Primary Dx); Long-term insulin use ([facility]); penitentiary 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 Social History Tobacco Use Types Packs/Day Years [...] :23 EDT documented as of this encounter Progress Notes * Lisa Yan NP - 08/31/2023 1035 EDT CGM INTERPRETATION Type of CGM: personal whitley 2 08/15-08/26/2023 Type of DM: II Diabetic Medications: farxiga Metformin humalog SS Indication for monitoring: Hyper/hypoglycemia, insulin dosing Report Interpretation: Average glucose 197 mg/dL, standard deviation 39.3 TIR 43%, TAR 54%, TBR 3% Nocturnal glucose control: Yes Post-prandial glucose excursions: minimal, Hypoglycemia incidence: minimal, fasting Other (exercise/activity): PLAN: Sent Orthoh[employer] message ?lower metformin, ?lower humalog w/ higher activity ?how recovering from a low, spikes overnight with this? documented in this encounter Plan of Treatment Upcoming Encounters Date Type Department Care Team (Late st Contact Info) Description 01/28/2024 10:30 EDT Office Visit [facility] Endocrinology [address] [place], [place] [phone] Lisa Yan NP [address] [place] [phone] documented as of this encounter Visit Diagnoses Diagnosis Type 2 diabetes mellitus with hyperglycemia, with long-term current use of insulin ([facility] Primary Long-term insulin use ([facility]) Encounter for long-term (current) use of insulin tank terminal gauger 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 documented in this encounter Care Teams Media Coordinator Relationship Specialty Start Date End Date Lia Pearson APRN [address] [place] [id number] PCP - General Family Medicine - [facility] Medicine 09/26/21 Lisa Yan NP [address] [place] [phone] Nurse Practitioner Endocrinology, Diabetes and Metabolism 03/19/21 Lisa Yan NP [address] [place] [phone] Nurse Practitioner Endocrinology, Diabetes and Metabolism 06/06/21 documented as of this encounter
--- OUTSIDE RECORDS SUMMARY | 2023-11-26 19:33 | XMS_ITS | Encounter Summary ---
Author Organization [facility] Address [address] [place] [address] Care Team Providers Care Forensic Dna Analyst Name Role Phone Lisa Yan PARKING ENFORCEMENT TECHNICIAN Unavailable [phone] Lisa Yan PARKING ENFORCEMENT TECHNICIAN Unavailable Lia Pearson APRN Primary Care Provider [phone] Reason for Visit * Reason Onset Date Comments Medications Refill 02/26/2023 Encounter Details Date Type Department Care Team (Late st Contact Info) Description 02/26/2023 Refill [facility] Endocrinology [address] [place] [phone] Shari Hsu RN Medications Refill Social History [...] Dispensed Refills Start Date End Da te rosuvastatin (CRESTOR) 40 mg tablet Take 1 Tablet by mouth at bedtime. 90 Tablet 3 02/26/2023 documented in this encounter Plan of Treatment Upcoming Encounters Date Type Department Care Team (Late st Contact Info) Description 01/28/2024 10:30 EDT Office Visit [facility] Endocrinology [address] [place], [place] [address] Lisa Yan NP [address] [place] [phone] documented as of this encounter Visit Diagnoses Not on filedocumented in this encounter Discontinued Medications Medication Sig Discontinue Reason Start Date End Da te rosuvastatin (CRESTOR) 40 mg tablet TAKE ONE TABLET BY MOUTH AT BEDTIME Reorder 06/30/2022 02/26/2023 documented as of this encounter Care Teams Forensic Dna Analyst Relationship Specialty Start Date End Date Lia Pearson APRN [address] [place] [phone] PCP - General Family Medicine - [facility] Medicine 09/26/21 Lisa Yan, PARKING ENFORCEMENT TECHNICIAN [address] [place] [phone] Nurse Practitioner Endocrinology, Diabetes and Metabolism 03/19/21 Lisa Yan PARKING ENFORCEMENT TECHNICIAN [address] [place] [phone] Nurse Practitioner Endocrinology, Diabetes and Metabolism 06/06/21 documented as of this encounter
--- OUTSIDE RECORDS SUMMARY | 2023-11-26 19:33 | XMS_ITS | Encounter Summary ---
Author Organization [facility] Address [address] [place] [address] Care Team Providers Care Surgical Garment Assembler Name Role Phone Lisa Yan RAG SHREDDER Unavailable [phone] Lisa Yan RAG SHREDDER Unavailable Lia Pearson APRN Primary Care Provider [phone] Reason for Visit * Reason Onset Date Comments Prior Auth, Medication 03/30/2023 Encounter Details Date Type Department Care Team (Late st Contact Info) Description 03/30/2023 Telephone [facility] [place] [address] [place] [phone] Shari Hsu RN Prior Auth, Medication Social History Tobacco Use Types Packs/Day Years [...] Telephone Encounter - Shari Hsu RN - 03/30/2023 1124 EST Pa request for ozempic- pt now taking mounjaro documented in this encounter Plan of Treatment Upcoming Encounters Date Type Department Care Team (Late st Contact Info) Description 01/28/2024 10:30 EDT Office Visit [facility] Endocrinology [address] [place], [place] [phone] Lisa Yan NP [address] [place] [phone] documented as of this encounter Visit Diagnoses Not on filedocumented in this encounter Care Teams Surgical Garment Assembler Relationship Specialty Start Date End Date Lia Pearson APRN [address] [place] [phone] PCP - General Family Medicine - [facility] Medicine 09/26/21 Lisa Yan RAG SHREDDER [address] [place] [phone] Nurse Practitioner Endocrinology, Diabetes and Metabolism 03/19/21 Lisa Yan NP [address] [place] [phone] Nurse Practitioner Endocrinology, Diabetes and Metabolism 06/06/21 documented as of this encounter
--- OUTSIDE RECORDS SUMMARY | 2023-11-26 19:33 | XMS_ITS | Encounter Summary ---
Author Organization [facility] Address [address] [place] [address] Care Team Providers Care Self Sealing Fuel Tank Builder Name Role Phone Lisa Yan RESIDENTIAL AIDE Unavailable [phone] Lisa Yan RESIDENTIAL AIDE Unavailable [phone] Lia Pearson APRN Primary Care Provider [phone] Reason for Visit * Reason Onset Date Comments Medications Refill 08/30/2023 Encounter Details Date Type Department Care Team (Late st Contact Info) Description 08/30/2023 Refill [facility] Endocrinology [address] [place] [address] [phone] Tasha Tavares RN Medications Refill Social History [...] End Da te levothyroxine (SYNTHROID) 200 mcg tabletIndications:Other specified hypothyroidism Take 1 Tablet by mouth daily. 90 Tablet 3 08/30/2023 metFORMIN (GLUCOPHAGE-XR) 500 mg ER tabletIndications:Type 2 diabetes mellitus with hyperglycemia, with long-term current use of insulin ([facility]) Take 2 Tablets by mouth 2 times daily. 360 Tablet 3 08/30/2023 10/29/2023 documented in this encounter Miscellaneous Notes * Telephone Encounter - Tasha Tavares RN - 08/30/2023 1513 EDT Levothyroxine and metformin e-scribed. Labs and ofc visits up to date. documented in this encounter Plan of Treatment Upcoming Encounters Date Type Department Care Team (Late st Contact Info) Description 01/28/2024 10:30 EDT Office Visit [facility] Endocrinology [address] [place] [address] [phone] Lisa Yan NP [address] [place] [phone] documented as of this encounter Visit Diagnoses Diagnosis Type 2 diabetes mellitus with hyperglycemia, with long-term current use of insulin ([facility])- Primary Other specified hypothyroidism documented in this encounter Discontinued Medications Medication Sig Discontinue Reason Start Date End Da te metFORMIN (GLUCOPHAGE-XR) 500 mg ER tablet TAKE TWO TABLETS BY MOUTH TWICE A DAY Reorder 09/14/2022 08/30/2023 levothyroxine (SYNTHROID) 200 mcg tablet Take 1 Tablet by mouth daily. Reorder 03/29/2023 08/30/2023 documented as of this encounter Care Teams Self Sealing Fuel Tank Builder Relationship Specialty Start Date End Date Lia Pearson APRN [address] [place] [address] PCP - General Family Medicine - [facility] Medicine 09/26/21 Lisa Yan NP [address] [place] [phone] Nurse Practitioner Endocrinology, Diabetes and Metabolism 03/19/21 Lisa Yan NP [address] [place] [address] Nurse Practitioner Endocrinology, Diabetes and Metabolism 06/06/21 documented as of this encounter
--- OUTSIDE RECORDS SUMMARY | 2023-11-26 19:33 | XMS_ITS | Encounter Summary ---
[place] [address] Care Team Providers Care Supervisor Asbestos Textile Name Role Phone Lia Pearson APRN Primary Care Provider [phone] Reason for Referral * Consultation (Routine) - Closed Specialty Diagnoses / Procedures Referred By Della kern Referred To Contact Podiatry Diagnoses Type 2 diabetes mellitus without complication, unspecified whether shelter insulin use Lia Pearson APRN [address] [place] [address] [facility] [place] [address] Referral ID Status Reason Start Date Expiration Date V isits Requested Visits Authorized [id number] Closed Consult, Test & Treat PCP Updated and/or Approved 10/24/2021 10/24/2022 6 6 Encounter Details Date Type Department Care Team (Latest Contact Info) Description 10/24/2021 Transcribe Orders eDH Incoming Referrals [phone] Lia Pearson APRN [address] [place], [place] [id number] Type 2 diabetes mellitus without complication, unspecified whether shelter insulin use Social History Tobacco Use Types Packs/Day Years [...] EDT TH Visit (TeleHealth) [place] [address] Michael Morgan, [facility] [place] [address] Scheduled Referrals Name Type Priority Associated Diagnoses Orde r Schedule Referral to Podiatry Outpatient Referral Routine Type 2 diabetes mellitus without complication, unspecified whether shelter insulin use Ordered: 10/24/2021 documented as of this encounter Visit Diagnoses Diagnosis Type 2 diabetes mellitus without complication, unspecified whether intermediate designer insulin use documented in this encounter Care Teams Supervisor Asbestos Textile Relationship Specialty Start Date End Date Lia Pearson APRN [address] [place] [id number] PCP - General Geriatric Medicine 10/15/21 01/26/22 documented as of this encounter
--- OUTSIDE RECORDS SUMMARY | 2023-11-26 19:33 | XMS_ITS | Encounter Summary ---
Author Organization [facility] Address [address] [place] [address] Care Team Providers Care Cut Out Press Operator Name Role Phone Lisa Yan PHOTO LAB MANAGER Unavailable [phone] Lisa Yan PHOTO LAB MANAGER Unavailable [phone] Lia Pearson APRN Primary Care Provider [phone] Reason for Visit * Reason Onset Date Comments Prior Auth, Medication 06/11/2023 [place] Encounter Details Date Type Department Care Team (Late st Contact Info) Description 06/11/2023 Telephone [facility] Endocrinology [address] [place] [address] Tasha Tavares RN Prior Auth, Medication ([place]) Social History Tobacco Use Types Packs/Day Years [...] Dispensed Refills Start Date End Da te dulaglutide (TRULICITY) 1.5 mg/0.5 mL subcutaneous pen Inject 0.5 mL into the skin once a week. To start after 4 weeks of 0.75 mg dose 6 mL 3 07/14/2023 08/13/2023 dulaglutide (TRULICITY) 0.75 mg/0.5 mL subcutaneous pen Inject 0.5 mL into the skin once a week. rulicity 0.75 mg weekly injection. If tolerating well after 4 weeks, increase 1.5 mg weekly dose. 2 mL 06/15/2023 07/07/2023 documented in this encounter Miscellaneous Notes * Telephone Encounter - Shari sHu RN - 06/15/2023 1052 EST Pt messaged, rx sent * Telephone Encounter - Lisa Yan NP - 06/15/2023 1007 EST Okay to try trulicity 0.75 mg weekly injection. If tolerating well after 4 weeks, increase 1.5 mg weekly dose. Adjust insulin as discussed at our last visit, see note. Thanks. * Telephone Encounter - Tasha Tavares RN - 06/15/2023 0904 EST Mounjaro denied by [facility]. Needs to try and fail Bydureon and Trulicity. * Telephone Encounter - Tasha Tavares RN - 06/11/2023 1210 EST PA submitted on CoverMyMeds. documented in this encounter Plan of Treatment Upcoming Encounters Date Type Department Care Team (Late st Contact Info) Description 01/28/2024 10:30 EDT Office Visit [facility] Endocrinology [address] [place] [id number] Lisa Yan NP [address] [facility] [address] [place] [phone] documented as of this encounter Visit Diagnoses Not on filedocumented in this encounter Discontinued Medications Medication Sig Discontinue Reason Start Date End Da te tirzepatide (MOUNJARO) 5 mg/0.5 mL pen injectorIndications:Ty pe 2 diabetes mellitus with hyperglycemia, with long-term current use of insulin (HCC-CMS) Inject 0.5 mL into the skin once a week. If tolerating lower dose after 4 weeks, increase 5 mg weekly. 03/15/2023 06/15/2023 tirzepatide (MOUNJARO) 2.5 mg/0.5 mL pen injectorIndications:Ty pe 2 diabetes mellitus with hyperglycemia, with long-term current use of insulin (HCC-CMS) Inject 0.5 mL into the skin once a week. If tolerating after 4 weeks, increase 5 mg weekly. 06/11/2023 06/15/2023 documented as of this encounter Care Teams Cut Out Press Operator Relationship Specialty Start Date End Date Lia Pearson APRN [address] [place] [id number] PCP - General Family Medicine - [facility] Medicine 09/26/21 Lisa Yan PHOTO LAB MANAGER [address] [place] [phone] Nurse Practitioner Endocrinology, Diabetes and Metabolism 03/19/21 Lisa Yan PHOTO LAB MANAGER [address] [place] [phone] Nurse Practitioner Endocrinology, Diabetes and Metabolism 06/06/21 documented as of this encounter
--- OUTSIDE RECORDS SUMMARY | 2023-11-26 19:33 | XMS_ITS | Encounter Summary ---
[place] [address] Care Team Providers Care Named Account Executive Name Role Phone Lia Pearson APRN Primary Care Provider [phone] Encounter Details Date Type Department Care Team (Late st Contact Info) Description 12/02/2021 Telephone Obstetrics [place] [phone] Martha Stokes, RN Social History Tobacco Use Types Packs/Day [...] encounter Miscellaneous Notes * Telephone Encounter - Martha Stokes, RN - 12/02/2021 2:54 PM EDT Zenia Meir called to update Dr cantu that she started the new birthcontrol On 11-28-21 and her bleeding stoppedon 11-29-21. She said this indicates this is hormonal and not cancerous. Per Dr. Cantu.Will forward this to Dr. cantu * Telephone Encounter - Martha Stokes, RN - 12/02/2021 2:53 PM EDT ----- Message from Lilian Gallegos, TOM sent at 12/02/2021 11:10 AM EDT ----- Regarding: Update on Medication VM @ 1026am- Patient calling to update Dr. Cantu on medication and symptoms. Please call her back at [phone]. documented in this encounter Plan of Treatment Upcoming Encounters Date Type Department Care Team (Late st Contact Info) Description 12/30/2023 2:45 PM EDT TH Visit (TeleHealth) [place] [address] Michael Morgan, [facility] [place] [address] documented as of this encounter Visit Diagnoses Not on filedocumented in this encounter Care Teams Named Account Executive Relationship Specialty Start Date End Date Lai Pearson APRN [address] [place] [address] PCP - General Geriatric Medicine 10/15/21 01/26/22 documented as of this encounter
--- OUTSIDE RECORDS SUMMARY | 2023-11-26 19:33 | XMS_ITS | Encounter Summary ---
Author Organization [facility] Address [address] [place] [address] Care Team Providers Care Center Hole Reamer Name Role Phone Lisa Yan HELIARC WELDER Unavailable Lisa Yan HELIARC WELDER Unavailable Lia Pearson APRN Primary Care Provider [phone] Reason for Referral * Consult (Routine/Next Available) - Authorization Not Required Specialty Diagnoses / Procedures Referred By [facility] Referred To Contact Diagnoses Type 2 diabetes mellitus with hyperglycemia, with long-term current use of insulin ([facility]) Neuropathy Lisa Yan, HELIARC WELDER [address] [facility] [address] [place] [address] Referral ID Status Reason Start Date Expiration Date Visits Requested Visits Authorized [id number] Authorization Not Required Specialty Services Required 4 1 1 Question Answer Reason for Request: BL neuropathy, severe callus buildup on BL heals, fungal Practice Site (External Referral Only): [facility] Comments [facility] Reason for Visit * Reason Comments Diabetes Encounter Details Date Type Department Care Team ([facility] st Contact Info) Description 08/13/2023 10:[address] 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; BMI 60.0-69.9, adult (HCC-CMS); Essential hypertension, benign; Mixed hyperlipidemia; Uses self-applied continuous glucose monitoring device; Neuropathy Social History Tobacco Use Types Packs/Day Years [...] Sign Reading Time Taken Comments Blood Pressure 116/76 08/13/2023 1019 EDT lower arm Pulse 88 08/13/2023 1019 EDT Temperature - - Respiratory Rate 18 08/13/2023 1019 EDT Oxygen Saturation - - Inhaled Oxygen Concentration - - Weight 173.3 kg (382 lb) 08/13/2023 1019 EDT Height 165.1 cm (5' 5) 08/13/2023 1019 EDT Body Mass Index 63.57 08/13/2023 1019 EDT documented in this encounter Patient Instructions * Patient Instructions* Lisa Yan NP - 08/13/2023 10:30 EDT A1C 6.7 CGM data up/down-lows. Lower metformin XR 500 mg twice daily with food. Continue with farxiga 5 mg daily and humalog as needed. Continue with whitley CGM, given sample in clinic today to bridge supplies. Keep up with daily hydration in water, balanced meals-adding vegetables/fruits/fiber/protein with all meals/snacks and activity daily as able. Follow-up in 2-3 months or sooner with concerns. Requested to reach out in 1 week with glucose levels or sooner if continuing to see lows <70's more than twice weekly. Sent referral for podiatry consult to [facility], reach out to them in 2-3 weeks if you have not heard from them. documented in this encounter Progress Notes * Shari Hsu RN - 08/13/2023 1030 EDT Needs eye, foot -[facility] t messaged to do labs Lab Results Component Value Date UABCR 650 (H) 06/18/2022 HGBA1C 6.7 (A) 01/29/2023 Glucose-65 POCT A!C and glucose performed by Shari Hsu RN , consent given by pt, pt. Tolerated well, ordering provider Lisa Yan NP, site accessed l 3rd finger * Lisa Yan NP - 08/13/2023 1030 EDT Reason for Visit: DM f/up PCP: [facility] OTHER PROVIDERS: PHYSICIAN SCIENTIST [facility] Dr. Haider, cardiology [facility], [facility] Zenia Worley is a 33 y.o. female who presented to the clinic for a follow-up in [facility], with a history of DM since 2004. Hx of HLD, [place] on cpap, PTSD, schizoaffective disorder, anemia, hypothyroid,hypoglycemia comas, s/p bariatri surgery (2023) Does not currently work. Lives on her own. Is working with [employer] on finding work. Sister lives in [place]. Parents have . 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 Mentions needing to taste the food while training and struggling with this. [facility] admission about 1 mo ago d/t N/V, had hypertensive crisis while admitted. Stopped lantus whileinpatient d/t hypoglycemia as well. Stopped GLP and recommended to hold these until cleared furtherby surgery d/t gastroparesis and N/V/dehydration. Reports difficulty with getting CGM supplies from [facility] medical at the moment, not wearing CGM today.Does have [employer] supplies at home. Random BG in clinic 65, has feelings of tired with this. Given juice in clinic, up to 81 15 minuteslater. Has not eaten yet today, wanted to fast for labs this morning. Is now off the lantus and given PRN short acting insulin, has used this a couple times over the past month. Will take this prior to eating. Is tolerating the metformin and farxiga well. Denies further vomiting/nausea since being home for past month. Has lost 20# since our last visit. Has been having a lot of lows, states was trying to do intermittent fasting. Recommended to stop this from bariatrics surgery. Since stopping this this week, feels readings are better. States neuropathy is getting better after surgery. Menses has stabilized better. Better stamina with movement. TSH 1.42 (09/2022) Levothyroxine 200 mcg [facility] DM: dad, brother Recent A1C: 6.7 (05/2023) 10 (04/2023) PCP office 6.7 (01/2023) 5.8 (10/2022) 7.6 (05/2022) Cpep 2 (05/2023) Diabetic Medications: Metformin XR 1000 mg twice daily Farxiga 5 mg Humalog SS PRN >200 2 units >250 [...] Problems Eye exam current (within one year): UTD, [facility] Last dental exam: overdue CVD,PVD,CAD: HLD, HTN Statin: rosuvastatin 40 mg, LDL 92 (06/2022) Aspirin: no ACEI/ARB: losartan 25 mg Prior visit with ore roaster: CORNELIO Aguayo Foot care: self Comorbidities: Retinopathy: [...] Negative. Neurological: Positive for numbness. Physical Exam Vitals and nursing note reviewed. Constitutional: Appearance: Normal appearance. HENT: Head: Normocephalic and atraumatic. Cardiovascular: Rate and Rhythm: Normal rate and regular rhythm. Pulses: Dorsalis pedis pulses are 1+ on the right side and 1+ on the left side. Posterior tibial pulses are 1+ on the right side and 1+ on the left side. Pulmonary: Effort: Pulmonary effort is normal. Breath sounds: Normal breath sounds. Musculoskeletal: Cervical back: Normal range of motion and neck supple. Feet: Right foot: Protective Sensation: 3 sites tested. 3 sites sensed. Skin integrity: Callus and dry skin present. Toenail Condition: Right toenails are abnormally thick. Fungal disease present. Left foot: Protective Sensation: 3 sites tested. 3 sites sensed. Skin integrity: Callus and dry skin present. Toenail Condition: Left toenails are abnormally thick. Fungal disease present. Skin: General: Skin is warm and dry. Neurological: Mental Status: She is alert and oriented to person, place, and time. Psychiatric: Mood and Affect: Mood normal. Behavior: Behavior normal. Thought Content: Thought content normal. CGM INTERPRETATION Type of CGM: Newsbounde 2 07/28-08/11/2023 Type of DM: II Diabetic Medications: farxiga Metformin Novolog PRN Indication for monitoring: Hyper/hypoglycemia, insulin dosing Report Interpretation: Average glucose 161 mg/dL, standard deviation 47.6 TIR 58%, TAR 35%, TBR 7% Nocturnal glucose control: Yes Post-prandial glucose excursions: [...] to the clinic for a follow-up in [facility], with a history of DM since 2004. Problem List Items Addressed This Visit Endocrine/Metabolic Type 2 diabetes mellitus with hyperglycemia, with long-term current use of insulin ([facility]) - Primary Controlled A1C 6.7 CGM data up/down-lows. Lower metformin XR 500 mg twice daily with food. Continue with farxiga 5 mg daily and humalog as needed. Continue with whitley CGM, given sample in clinic today to bridge supplies. Keep up with daily hydration in water, balanced meals-adding vegetables/fruits/fiber/protein with all meals/snacks and activity daily as able. Follow-up in 2-3 months or sooner with concerns. Requested to reach out in 1 week with glucose levels or sooner if continuing to see lows <70's more than twice weekly. Labs resulting today, plan to reach out pending need for changes. [facility]iatry referral to [facility] for severe callus buildup, recommended epsom salt foot soaks 3-4X/week. Relevant Medications HUMALOG KWIKPEN INSULIN 100 unit/mL injectable pen Other Relevant Orders AMB CONS/FOLLOW UP PODIATRY BMI 60.0-69.9, adult ([facility]) Long-term insulin use ([facility]) intermediate designer 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 Cardiac/Vasculature Mixed hyperlipidemia Labs done today. Essential hypertension, benign BP stable. Other Uses self-applied continuous glucose monitoring device Other Visit Diagnoses Neuropathy Relevant Orders AMB CONS/FOLLOW UP PODIATRY Patient Goals: A1C <7% Exercise: 150-300 minutes of CV exercise/week. I spent a total of 30 minutes on the date of this encounter meeting with the patient and reviewing documentation/coordinating care as described in the above note. No procedures were performed at the time of the visit. This time does not include spent reviewing CGM data. documented in this encounter Miscellaneous Notes * Assessment & Plan Note - Lisa Yan NP - 08/13/2023 1042 EDT Associated Problem(s): Type 2 diabetes mellitus with hyperglycemia, with long- term current use of insulin ([facility]) Controlled A1C 6.7 CGM data up/down-lows. Lower metformin XR 500 mg twice daily with food. Continue with farxiga 5 mg daily and humalog as needed. Continue with whitley CGM, given sample in clinic today to bridge supplies. Keep up with daily hydration in water, balanced meals-adding vegetables/fruits/fiber/protein with all meals/snacks and activity daily as able. Follow-up in 2-3 months or sooner with concerns. Requested to reach out in 1 week with glucose levels or sooner if continuing to see lows <70's more than twice weekly. Labs resulting today, plan to reach out pending need for changes. [facility]iatry referral to [facility] for severe callus buildup, recommended epsom salt foot soaks 3-4X/week. * Assessment & Plan Note - Lisa Yan NP - 08/13/2023 1031 EDT Associated Problem(s): Mixed hyperlipidemia Labs done today. * Assessment & Plan Note - Lisa Yan NP - 08/13/2023 1031 EDT Associated Problem(s): Essential hypertension, benign BP stable. documented in this encounter Plan of Treatment Upcoming Encounters Date Type Department Care Team (Late st Contact Info) Description 01/28/2024 10:30 EDT Office Visit [facility] Endocrinology [address] [place] [address] Lisa Yan NP [address] [facility] [address] [place] [address] Scheduled Referrals Name Type Priority Associated Diagnoses Order Schedule AMB CONS/FOLLOW UP PODIATRY Outpatient Referral Routine/Next Available Type 2 diabetes mellitus with hyperglycemia, with long-term current use of insulin ([facility]) Neuropathy Expected: 09/13/2023 (Approximate), Expires: 08/12/2024 documented as of this encounter Visit Diagnoses Diagnosis Type 2 diabetes mellitus with hyperglycemia, with long-term current use of insulin ([facility])- Primary Long-term insulin use ([facility]) Encounter for long-term (current) use of insulin intermediate designer 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 BMI 60.0-69.9, adult ([facility]) Body Mass Index 60.0-69.9, adult Essential hypertension, benign Mixed hyperlipidemia Uses self-applied continuous glucose monitoring device Neuropathy Mononeuritis of unspecified site documented in this encounter Discontinued Medications Medication Sig Discontinue Reason Start Date End Da te ergocalciferol (DRISDOL; VITAMIN D2) 1,250 mcg (50,000 unit) capsule TAKE ONE CAPSULE BY MOUTH ONCE WEEKLY FOR 12 DOSES AFTER COMPLETION OF THIS DOSE; BEGIN LOWER DOSES OF VITMIN DAILY (USUSALLY [id number] UNIT Abstraction 07/17/2022 08/13/2023 losartan (COZAAR) 25 mg tablet Take 1 Tablet by mouth daily. Abstraction 08/29/2021 08/13/2023 furosemide (LASIX) 40 mg tablet TAKE ONE TABLET BY MOUTH EVERY MORNING Abstraction 09/23/2021 08/13/2023 metoprolol SUCCinate (TOPROL-XL) 50 mg tablet Take 1 Tablet by mouth daily. Taking 2 tabs daily Abstraction 11/26/2021 08/13/2023 Cholecalciferol, Vitamin D3, 50 mcg capsule Take by mouth daily. Abstraction 09/14/2022 08/13/2023 dulaglutide (TRULICITY) 1.5 mg/0.5 mL subcutaneous pen Inject 0.5 mL into the skin once a week. To start after 4 weeks of 0.75 mg dose 07/14/2023 08/13/2023 dulaglutide (TRULICITY) 0.75 mg/0.5 mL subcutaneous pen Inject 0.5 mL into the skin once a week. rulicity 0.75 mg weekly injection. If tolerating well after 4 weeks, increase 1.5 mg weekly dose. 07/07/2023 08/13/2023 insulin glargine (LANTUS SOLOSTAR U-100 INSULIN) 100 unit/mL (3 mL) injection penIndications:Type 2 diabetes mellitus with hyperglycemia, with long-term current use of insulin ([facility]) Inject 10 Units into the skin once daily AND 10 Units at bedtime. 06/11/2023 08/13/2023 oxyCODONE (ROXICODONE) 5 mg/5 mL solution Take 5 mL by mouth every 6 hours as needed. 06/05/2023 08/13/2023 documented as of this encounter Historical Medications * This list may reflect changes made after this encounter. Medication Sig Dispensed Refills Start Date End Date ONETOUCH VERIO TEST STRIPS test strips USE TO TEST BLOOD SUGARS BEFORE MEALS AND AT BEDTIME TO MAINTAIN A1C LESS THAN 7 08/21/2022 GLUCAGEN HYPOKIT 1 mg recon soln INJECT 1MG UNDER THE SKIN EVERY 20 MIN NEEDED UNTIL BLOOD SUGAR ATTAINED 01/06/2023 Underpads 30 X 36 pad USE ONCE DAILY NEEDED 12/13/2022 Cholecalciferol, Vitamin D3, 50 mcg capsule Take 1 Capsule by mouth daily. 07/14/2023 furosemide (LASIX) 20 mg tablet TAKE 1 TO 2 TABLETS BY MOUTH EVERY MORNING 02/09/2023 losartan (COZAAR) 100 mg tablet Take 1 Tablet by mouth daily. 07/14/2023 metoprolol SUCCinate (TOPROL-XL) 100 mg tablet 03/05/2023 HUMALOG KWIKPEN INSULIN 100 unit/mL injectable pen Sliding scale with meals if needed 08/10/2023 10/29/2023 added in this encounter Care Teams Center Hole Reamer Relationship Specialty Start Date End Date Lia Pearson APRN [address] [place] [id number] PCP - General Family Medicine - [facility] Medicine 09/26/21 Lisa Yan NP [address] [place] [phone] Nurse Practitioner Endocrinology, Diabetes and Metabolism 03/19/21 Lisa Yan NP [address] [place], [place] [phone] Nurse Practitioner Endocrinology, Diabetes and Metabolism 06/06/21 documented as of this encounter
--- OUTSIDE RECORDS SUMMARY | 2023-11-26 19:33 | XMS_ITS | Encounter Summary ---
[place] [address] Care Team Providers Care Wind Technician Name Role Phone Lia Pearson APRN Primary Care Provider [phone] Reason for Referral * Consultation (Routine) - Closed Specialty Diagnoses / Procedures Referred By Della kern Referred To Contact Obstetrics and Gynecology Diagnoses Morbid obesity Excessive and frequent menstruation with irregular cycle Bettye Simmons MD [address] [place] [address] [place] [address] [facility] [address] [address] Referral ID Status Reason Start Date Expiration Date V isits Requested Visits Authorized [id number] Closed Consult, Test & Treat PCP Updated and/or Approved 11/10/2021 11/10/2022 6 6 Encounter Details Date Type Department Care Team (Late st Contact Info) Description 11/10/2021 Transcribe Orders eDH Incoming Referrals [phone] Bettye Simmons MD [address] [place] [address] [address] [place], [place] [id number] Morbid obesity; Excessive and frequent menstruation with irregular cycle Social History Tobacco Use Types Packs/Day Years [...] EDT TH Visit (TeleHealth) [place] [address] Michael Morgan, [facility] [place] [address] Scheduled Referrals Name Type Priority Associated Diagnoses Orde r Schedule Referral to Ob-Mobile Sales Assistant Outpatient Referral Routine Morbid obesity Excessive and frequent menstruation with irregular cycle Ordered: 11/10/2021 documented as of this encounter Visit Diagnoses Diagnosis Morbid obesity Excessive and frequent menstruation with irregular cycle Excessive or frequent menstruation documented in this encounter Care Teams Wind Technician Relationship Specialty Start Date End Date Lia Pearson APRN [address] [place] [id number] PCP - General Geriatric Medicine 10/15/21 01/26/22 documented as of this encounter
--- OUTSIDE RECORDS SUMMARY | 2023-11-26 19:33 | XMS_ITS | Encounter Summary ---
Author Organization [facility] Address [address] [place] [address] Care Team Providers Care Life Skills Coach Name Role Phone Lisa Yan GLOBAL SUPPLY CHAIN VICE PRESIDENT Unavailable [phone] Lisa Yan GLOBAL SUPPLY CHAIN VICE PRESIDENT Unavailable [phone] Lia Pearson APRN Primary Care Provider [phone] Reason for Visit * Reason Onset Date Comments Medication Management 09/07/2023 Encounter Details Date Type Department Care Team (Late st Contact Info) Description 09/07/2023 Telephone [facility] Endocrinology [address] [place] [address] Lilibeth Arguello, farm management professor Management Social History Tobacco Use Types Packs/Day [...] Start Date End Da te insulin glargine 100 unit/mL (3 mL) injection pen E11.65 6 units am, 5 units pm 15 mL 2 09/08/2023 10/29/2023 documented in this encounter Miscellaneous Notes * Telephone Encounter - Dina Baldwin RN - 09/08/2023 1648 EDT Prescription faxed to pharmacy per order Lisa Yan * Telephone Encounter - Lilibeth Arguello RN - 09/07/2023 1652 EDT Spoke with patient and she did restart Lantus on her own. She is using 5 units at night and 6 units in the morning. She has a small amount left. Sending to Batsheva to send refill to [facility]. * Telephone Encounter - Lilibeth Arguello RN - 09/07/2023 1059 EDT Jaqueline from [facility] called asking for Lantus script as they do not have one on file and patient called for a refill. Last office note lists patient is not taking Lantus. Nurse will send patient a [employer] message asking if she has started taking again. documented in this encounter Plan of Treatment Upcoming Encounters Date Type Department Care Team (Late st Contact Info) Description 01/28/2024 10:30 EDT Office Visit [facility] Endocrinology [address] [place], [place] [address] Lisa Yan NP 130 [facility] [address] [place] [phone] documented as of this encounter Visit Diagnoses Not on filedocumented in this encounter Care Teams Life Skills Coach Relationship Specialty Start Date End Date Lia Pearson APRN [address] [place] [id number] PCP - General Family Medicine - [facility] Medicine 09/26/21 Lisa Yan NP [address] [place] [address] [address] [place] [phone] Nurse Practitioner Endocrinology, Diabetes and Metabolism 03/19/21 Lisa Yan NP [address] [place] [address] [address] [place] [phone] Nurse Practitioner Endocrinology, Diabetes and Metabolism 06/06/21 documented as of this encounter
--- OUTSIDE RECORDS SUMMARY | 2023-11-26 19:33 | XMS_ITS | Encounter Summary ---
Author Organization [facility] Address [address] [place] [address] Care Team Providers Care Train Attendant Name Role Phone Lisa Yan COUNSELOR CAMP Unavailable [phone] Lisa Yan COUNSELOR CAMP Unavailable [phone] Lia Pearson APRN Primary Care Provider [phone] Reason for Visit * Reason Onset Date Comments Medication Questions 10/29/2023 Encounter Details Date Type Department Care Team (Late st Contact Info) Description 10/29/2023 Telephone [facility] Endocrinology [address] [place] [address] Tasha Tavares RN Medication Questions Social History Tobacco Use Types Packs/Day [...] hyperglycemia, with long-term current use of insulin ([facility]) Inject 6 Units into the skin once daily AND 7 Units at bedtime. E11.65. 15 mL 2 10/29/2023 documented in this encounter Miscellaneous Notes * Telephone Encounter - Tasha Tavares RN - 10/29/2023 1140 EDT Need clarification on Lantus Rx that was sent earlier today. Reviewed with KD. E-scribed corrected Rx. documented in this encounter Plan of Treatment Upcoming Encounters Date Type Department Care Team (Late st Contact Info) Description 01/28/2024 10:30 EDT Office Visit [facility] Endocrinology [address] [place] [address] Lisa Yan NP [address] [place] [phone] documented as of this encounter Visit Diagnoses Diagnosis Type 2 diabetes mellitus with hyperglycemia, with long-term current use of insulin ([facility])- Primary documented in this encounter Discontinued Medications Medication Sig Discontinue Reason Start Date End Da te insulin glargine 100 unit/mL (3 mL) injection penIndications:Type 2 diabetes mellitus with hyperglycemia, with long-term current use of insulin ([facility]) Inject 6 Units into the skin once daily AND 7 Units at bedtime. E11.65 6 units am, 5 units pm. Reorder 10/29/2023 10/29/2023 documented as of this encounter Care Teams Train Attendant Relationship Specialty Start Date End Date Lia Pearson APRN [address] [place] [address] PCP - General Family Medicine - [facility] Medicine 09/26/21 Lisa Yan NP [address] [place] [phone] Nurse Practitioner Endocrinology, Diabetes and Metabolism 03/19/21 Lisa Yan NP [address] [place], [place] [phone] Nurse Practitioner Endocrinology, Diabetes and Metabolism 06/06/21 documented as of this encounter
--- OUTSIDE RECORDS SUMMARY | 2023-11-26 19:34 | XMS_ITS | Encounter Summary ---
Author Organization [facility] Address [address] [place] [address] Care Team Providers Care Control Electrician Name Role Phone Lisa Yan MULTIPLE LAUNCH ROCKET SYSTEM CREWMEMBER Unavailable [phone] Lisa Yan MULTIPLE LAUNCH ROCKET SYSTEM CREWMEMBER Unavailable [phone] Lia Pearson APRN Primary Care Provider [phone] Encounter Details Date Type Department Care Team (Latest Contact Info) Description 11/13/2021 13:54 EDT - 11/13/2021 23:59 EDT Hospital Encounter [facility] - Main [address] [id number] Discharge Disposition: Home or Self Care Social History Tobacco Use Types Packs/Day Years [...] :23 EDT documented as of this encounter Medications at Time of Discharge Medication Sig Dispensed Refills Start Date End Date cyanocobalamin (VITAMIN B-12) 500 mcg tablet Take 2 Tablets by mouth daily. ferrous gluconate (FERATE) 324 mg (37.5 mg iron) tablet tablet Take 1 Tablet by mouth 2 times daily with breakfast and dinner. 08/21/2021 insulin pen needles 32G x 5/32 (PEN NEEDLE) 1 pen needle by misc (non-drug; combo route) route 5 times daily. 500 Each 2 06/09/2021 oxygen-air delivery systems (HORIZON NASAL CPAP SYSTEM MISC) by misc (non-drug; combo route) route. polyethylene glycol (MIRALAX) 17 gram/dose powder Take 17 g by mouth daily. prn prazosin (MINIPRESS) 5 mg capsule at bedtime. 03/01/2021 ARIPiprazole (ABILIFY) 5 mg tablet 5 mg daily. 09/25/2021 12/31/2021 BD AUTOSHIELD DUO PEN NEEDLE 30 gauge x 3/16 needle Inject 5 pen needles into the skin daily. e11.65 500 Each 2 08/11/2021 06/25/2022 furosemide (LASIX) 40 mg tablet TAKE ONE TABLET BY MOUTH EVERY MORNING 09/23/2021 08/13/2023 gabapentin (NEURONTIN) 300 mg capsule Take 1 capsule by mouth 3 times daily. E11.9 270 capsule 1 06/11/2021 11/18/2021 insulin aspart U-100 (NOVOLOG FLEXPEN U-100 INSULIN) 100 unit/mL (3 mL) injectable pen TDD 6 units. Sliding scale with meals: 200-300 1 units 300-400 2 units. 45 mL 3 11/12/2021 12/23/2021 insulin glargine (LANTUS SOLOSTAR U-100 INSULIN) 100 unit/mL (3 mL) injection pen Inject 12 Units into the skin once daily AND 13 Units at bedtime. 32 mL 2 11/12/2021 12/23/2021 levothyroxine (SYNTHROID) 200 mcg tablet Take 1 Tablet by mouth daily. 90 Tablet 2 06/09/2021 01/12/2022 losartan (COZAAR) 25 mg tablet Take 1 Tablet by mouth daily. 08/29/2021 08/13/2023 metFORMIN (GLUCOPHAGE-XR) 500 mg ER tablet Take 1 Tablet by mouth daily. 90 Tablet 2 07/21/2021 12/31/2021 metoprolol SUCCinate (TOPROL-XL) 25 mg tablet Take 25 mg by mouth daily. 08/29/2021 12/31/2021 QUEtiapine (SEROQUEL) 100 mg tablet TAKE ONE TABLET BY MOUTH EVERY DAY NEEDED 09/21/2021 10/23/2022 QUEtiapine (SEROQUEL) 300 mg tablet Take 200 mg by mouth at bedtime. 09/21/2021 10/23/2022 rosuvastatin (CRESTOR) 40 mg tablet Take 1 Tablet by mouth at bedtime. 90 Tablet 2 09/26/2021 06/30/2022 semaglutide (OZEMPIC) subcutaneous pen Inject 0.5 mg into the skin every 7 days. 4.5 mL 2 11/12/2021 12/23/2021 documented as of this encounter Discharge Disposition Disposition Code Departure Means Destination Home or Self Care documented in this encounter Plan of Treatment Upcoming Encounters Date Type Department Care Team (Late st Contact Info) Description 01/28/2024 10:30 EDT Office Visit [facility] Endocrinology [address] [place] [id number] Lisa Yan NP [address] [place] [address] [phone] documented as of this encounter Visit Diagnoses Not on filedocumented in this encounter Care Teams Control Electrician Relationship Specialty Start Date End Date Lia Pearson APRN [address] [place] [phone] PCP - General Family Medicine - [facility] Medicine 09/26/21 Lisa Yan NP [address] [place] [address] [phone] Nurse Practitioner Endocrinology, Diabetes and Metabolism 03/19/21 Lisa Yan NP [address] [place] [address] [phone] Nurse Practitioner Endocrinology, Diabetes and Metabolism 06/06/21 documented as of this encounter
--- OUTSIDE RECORDS SUMMARY | 2023-11-26 19:34 | XMS_ITS | Encounter Summary ---
Author Organization [facility] Address [address] [place] [address] Care Team Providers Care Social Service Technician Name Role Phone Lisa Yan MARKETING PROGRAM MANAGER Unavailable Lisa Yan MARKETING PROGRAM MANAGER Unavailable Lia Pearson APRN Primary Care Provider [phone] Reason for Visit * Reason Comments Medications Refill Encounter Details Date Type Department Care Team (Late st Contact Info) Description 06/30/2022 [place] [facility] [place] [address] [place] [address] Lisa Yan, MARKETING PROGRAM MANAGER 130 [facility] [address] [place] [phone] Medications Refill Social History Tobacco Use Types [...] TAKE ONE TABLET BY MOUTH AT BEDTIME 90 Tablet 2 06/30/2022 02/26/2023 documented in this encounter Miscellaneous Notes * Telephone Encounter - Sheryl More RN - 06/30/2022 2327 EST Prescription sent to pharmacy per Lisa Yan's orders. documented in this encounter Plan of Treatment Upcoming Encounters Date Type Department Care Team (Late st Contact Info) Description 01/28/2024 10:30 EDT Office Visit [facility] Endocrinology [address] [place] [address] Lisa Yan NP [address] [place] [address] [phone] documented as of this encounter Visit Diagnoses Not on filedocumented in this encounter Discontinued Medications Medication Sig Discontinue Reason Start Date End Da te rosuvastatin (CRESTOR) 40 mg tablet Take 1 Tablet by mouth at bedtime. 09/26/2021 06/30/2022 documented as of this encounter Care Teams Social Service Technician Relationship Specialty Start Date End Date Lia Pearson APRN [address] [place] [address] PCP - General Family Medicine - [facility] Medicine 09/26/21 Lisa Yan NP [address] [place] [phone] Nurse Practitioner Endocrinology, Diabetes and Metabolism 03/19/21 Lisa Yan NP [address] [place] [address] [phone] Nurse Practitioner Endocrinology, Diabetes and Metabolism 06/06/21 documented as of this encounter
--- OUTSIDE RECORDS SUMMARY | 2023-11-26 19:34 | XMS_ITS | Encounter Summary ---
Author Organization [facility] Address [address] [place] [address] Care Team Providers Care Home Comfort Advisor Name Role Phone Bay, Maria R Perez BLENDER OPERATOR Primary Care Provider [phone] Lisa Yan CELLOPHANE BAG MACHINE OPERATOR Unavailable [phone] Lisa Yan CELLOPHANE BAG MACHINE OPERATOR Unavailable Reason for Visit * Reason Comments Diabetes Toshia sensor adrianin g Encounter Details Date Type Department Care Team (Late st Contact Info) Description 08/01/2021 15:00 EDT Nurse Only [facility] Endocrinology [address] [place], [place] [address] Dina Baldwin, RN [address] [place] [address] Type 2 diabetes mellitus with hyperglycemia, with long-term current use of insulin ([facility]) ([facility]) (Primary Dx) Social History Tobacco Use Types [...] as of this encounter Progress Notes * Dina Baldwin, RN - 08/01/2021 1500 EDT Diabetes Education Note Change in Regimen/Sensor Start Sensor type: Personal Toshia Referred by: Lisa Yan Provider on site: Lisa Yan Education today: See patient docs for settings and teaching checklist Education Needed: Supportive Assessment: Dx code: e11.65 Arrives today with c/o low blood sugar. Symptomatic. Ate a wafer on the way, again had nothing withher for these events. BS read 124. Given one juice and then 2 grahams with pb. Advised to have supplies with her in case of lows. Self inserts sensor today in office by follwing verbal talk-through Plan: Leaves with sensor in warm-up Next Visit: With endocrinology documented in this encounter Plan of Treatment Upcoming Encounters Date Type Department Care Team (Late st Contact Info) Description 01/28/2024 10:30 EDT Office Visit [facility] Endocrinology [address] [place] [address] Lisa Yan NP [address] [phone] documented as of this encounter Visit Diagnoses Diagnosis Type 2 diabetes mellitus with hyperglycemia, with long-term current use of insulin ([facility])- Primary documented in this encounter Care Teams Home Comfort Advisor Relationship Specialty Start Date End Date Maria R Hermosillo FNP [facility] [address] [address] PCP - General Family Medicine - Primary Care 12/03/20 09/25/21 Lisa Yan NP [address] [phone] Nurse Practitioner Endocrinology, Diabetes and Metabolism 03/19/21 Lisa Yan NP [address] [place], [place] [phone] Nurse Practitioner Endocrinology, Diabetes and Metabolism 06/06/21 documented as of this encounter
--- OUTSIDE RECORDS SUMMARY | 2023-11-26 19:34 | XMS_ITS | Encounter Summary ---
Author Organization [facility] Address [address] [place] [address] Care Team Providers Care Net Web Application Developer Name Role Phone Lisa Yan FLOATMAN Unavailable Lisa Yan FLOATMAN Unavailable Lia Pearson APRN Primary Care Provider [phone] Encounter Details Date Type Department Care Team (Late st Contact Info) Description 01/06/2023 Lab Requisition [facility] Pathology & Laboratory Medicine - [facility] [address] [place], [place] [phone] Outr Resulting Lab, Provider Social History Tobacco Use Types Packs/Day Years [...] Info) Description 01/28/2024 10:30 EDT Office Visit [facility] Endocrinology [address] [place] [address] Lisa Yan NP [address] [facility] [address] [place] [phone] documented as of this encounter Procedures Procedure Name Priority Date/Time Associated Diagnosis Comments CORTISOL Routine 01/05/2023 18:10 EDT documented in this encounter Results * CORTISOL (01/05/2023 18:10 EDT) Cortisol 5 See Note ug/dL 01/06/2023 19:49 EDT [facility] Comment: NOTE: Reference Ranges (from OCD IFU): Collected Before 10:00 AM: ??4 - 23 ug/dL Collected After 5:00 PM: ?2 - 14 ug/dL The results of this assay can be falsely elevated due to the consumption of Biotin. Blood VENOUS BLOOD / Unknown 01/05/2023 18:10 EDT 01/06/2023 17:38 EDT Provider Outr Resulting Lab CHEMISTRY & BLOOD GAS ORDERABLES Performing Organization Address City/State/[facility] Co de Phone Number [facility] [address] [place] [address] documented in this encounter Visit Diagnoses Not on filedocumented in this encounter Care Teams Net Web Application Developer Relationship Specialty Start Date End Date Lia Pearson APRN [address] [place] [phone] PCP - General Family Medicine - [facility] Medicine 09/26/21 Lisa Yan NP [address] [phone] Nurse Practitioner Endocrinology, Diabetes and Metabolism 03/19/21 Lisa Yan NP 130 [facility] [address] [place] [phone] Nurse Practitioner Endocrinology, Diabetes and Metabolism 06/06/21 documented as of this encounter
--- OUTSIDE RECORDS SUMMARY | 2023-11-26 19:34 | XMS_ITS | Encounter Summary ---
Author Organization [facility] Address [address] [place] [address] Care Team Providers Care Staff Rn Name Role Phone Lisa Yan SENIOR POWER SCHEDULER Unavailable [phone] Lisa Yan SENIOR POWER SCHEDULER Unavailable [phone] Lia Pearson APRN Primary Care Provider [phone] Reason for Visit * Reason Onset Date Comments Coordination Of Care 12/30/2021 Encounter Details Date Type Department Care Team (Late st Contact Info) Description 12/30/2021 Telephone [facility] [place] [address] [place] [address] Lisa Yan SENIOR POWER SCHEDULER 130 [facility] [address] [place] [phone] Coordination Of Care Social History Tobacco Use Types Packs/Day [...] Telephone Encounter - Lisa Yan NP - 12/30/2021 1501 EDT Left message to call back. documented in this encounter Plan of Treatment Upcoming Encounters Date Type Department Care Team (Late st Contact Info) Description 01/28/2024 10:30 EDT Office Visit [facility] Endocrinology [address] [place] [address] Lisa Yan NP [address] [place] [phone] documented as of this encounter Visit Diagnoses Not on filedocumented in this encounter Additional Health Concerns Infection Onset Date Last Indicated Resolved Time COVID-19 12/25/2021 12/25/2021 01/14/2022 22:1 5 EDT documented as of this encounter Care Teams Staff Rn Relationship Specialty Start Date End Date Lia Pearson APRN [address] [place] [address] PCP - General Family Medicine - [facility] Medicine 09/26/21 Lisa Yan NP [address] [place] [phone] Nurse Practitioner Endocrinology, Diabetes and Metabolism 03/19/21 Lisa Yan NP [address] [place] [phone] Nurse Practitioner Endocrinology, Diabetes and Metabolism 06/06/21 documented as of this encounter
--- OUTSIDE RECORDS SUMMARY | 2023-11-26 19:34 | XMS_ITS | Encounter Summary ---
Author Organization [facility] Address [address] [place] [address] Care Team Providers Care Yarn Examiner Name Role Phone BayMaria R bloom PRODUCT DEVELOPMENT CHEMIST Primary Care Provider [phone] Lisa Yan HELP DESK OPERATOR Unavailable [phone] Lisa Yan HELP DESK OPERATOR Unavailable [phone] Reason for Visit * Reason Onset Date Comments Blood Glucose Review 08/07/2021 Encounter Details Date Type Department Care Team (Late st Contact Info) Description 08/07/2021 Telephone [facility] [place] [address] [place] [address] Shari Hsu RN Blood Glucose Review Social History Tobacco Use [...] encounter Miscellaneous Notes * Telephone Encounter - Vivienne Sampson MD - 08/07/2021 1500 EDT Might be for Lisa Electronically signed by Vivienne Smith MD * Telephone Encounter - Shari Hsu RN - 08/07/2021 1115 EDT In your box Can respond via Qingguo documented in this encounter Plan of Treatment Upcoming Encounters Date Type Department Care Team (Late st Contact Info) Description 01/28/2024 10:30 EDT Office Visit [facility] Endocrinology [address] [place] [address] Lisa Yan NP [address] [place] [phone] documented as of this encounter Visit Diagnoses Not on filedocumented in this encounter Care Teams Yarn Examiner Relationship Specialty Start Date End Date Maria R Hermosillo FNP [address] [phone] PCP - General Family Medicine - Primary Care 12/03/20 09/25/21 Lisa Yan HELP DESK OPERATOR [address] [place] [phone] Nurse Practitioner Endocrinology, Diabetes and Metabolism 03/19/21 Lisa Yan NP [address] [place] [phone] Nurse Practitioner Endocrinology, Diabetes and Metabolism 06/06/21 documented as of this encounter
--- OUTSIDE RECORDS SUMMARY | 2023-11-26 19:34 | XMS_ITS | Encounter Summary ---
Author Organization [facility] Address [address] [place] [address] Care Team Providers Care Body Designer Name Role Phone Lisa Yan DOG TRACK KENNEL MANAGER Unavailable Lisa Yan DOG TRACK KENNEL MANAGER Unavailable Lia Pearson APRN Primary Care Provider [phone] Encounter Details Date Type Department Care Team (Late st Contact Info) Description 01/06/2023 Lab Requisition [facility] Pathology & Laboratory Medicine - [facility] [address] [place], [place] [address] Outr Resulting Lab, Provider Social History Tobacco [...] Info) Description 01/28/2024 10:30 EDT Office Visit [facility] Endocrinology [address] [place], [place] [phone] Lisa Yan NP 130 [facility] [address] [place] [phone] documented as of this encounter Procedures Procedure Name Priority Date/Time Associated Diagnosis Comments CORTISOL, STIMULATION 30 MINUTE Routine 01/05/2023 19:13 EDT documented in this encounter Results * CORTISOL, STIMULATION 30 MINUTE (01/05/2023 19:13 EDT) [facility] Cortisol Stimulation, 30 min. 32 See Note ug/dL 01/06/2023 19:15 EDT [facility] Comment: NOTE: Expected Ranges for ACTH (Cortisol) Stimulation Test: Peak Concentrations at 30 - 60 minutes Minimal response: ??A cortisol value of >=18 ug/dL at the Baseline, 30 min, or 60 min sample is consistent with normal adrenal function. The results of this assay can be falsley elevated due to the consumption of Biotin. Blood VENOUS BLOOD / Unknown 01/05/2023 19:13 EDT 01/06/2023 17:38 EDT Provider Outr Resulting Lab CHEMISTRY & BLOOD GAS ORDERABLES Performing Organization Address City/State/[facility] Co de Phone Number [facility] [address] [place] [address] documented in this encounter Visit Diagnoses Not on filedocumented in this encounter Care Teams Body Designer Relationship Specialty Start Date End Date Lia Pearson APRN [address] [place] [address] PCP - General Family Medicine - [facility] Medicine 09/26/21 Lisa Yan NP 130 [facility] [address] [place] [phone] Nurse Practitioner Endocrinology, Diabetes and Metabolism 03/19/21 Lisa Yan NP [address] [place] [phone] Nurse Practitioner Endocrinology, Diabetes and Metabolism 06/06/21 documented as of this encounter
--- OUTSIDE RECORDS SUMMARY | 2023-11-26 19:34 | XMS_ITS | Encounter Summary ---
Author Organization [facility] Address [address] [place] [address] Care Team Providers Care Director Group Sales Name Role Phone Lisa Yan COPY ROOM TECHNICIAN Unavailable Lisa Yan COPY ROOM TECHNICIAN Unavailable [phone] Lia Pearson APRN Primary Care Provider [phone] Reason for Visit * Reason Comments Diabetes Encounter Details Date Type Department Care Team (Late st Contact Info) Description 09/26/2021 15:30 EDT Office Visit [facility] End[facility]ology [address] [place] [address] Lisa Yan COPY ROOM TECHNICIAN [address] [facility] [address] [place] [address] Type 2 diabetes mellitus with hyperglycemia, with long-term current use of insulin ([facility]) ([facility]) (Primary Dx); Other specified hypothyroidism; BMI 60.0-69.9, adult ([facility]) ([facility]) (HCC-CMS); Long-term insulin use ([facility]) ([facility]); [facility] 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; Mixed [...] Sign Reading Time Taken Comments Blood Pressure 108/74 09/26/2021 1533 EDT lower arm Pulse 96 09/26/2021 1533 EDT Temperature - - Respiratory Rate 18 09/26/2021 1533 EDT Oxygen Saturation - - Inhaled Oxygen Concentration - - Weight 181.9 kg (401 lb) 09/26/2021 1533 EDT Height 167.6 cm (5' 6) 09/26/2021 1533 EDT Body Mass Index 64.72 09/26/2021 1533 EDT documented in this encounter Patient Instructions * Patient Instructions* Lisa Yan APRN - 09/26/2021 15:30 EDT A1C 8.5 Congratulated on successful changes! Start ozempic 0.25 mg weekly injection. Inject into fatty tissue of thighs or buttocks for less potential side effects. Lower lantus 20 units AM and 15 units PM. Adjust novolog SS: take this 5-15 minutes BEFORE eating 200-300 2 units 300-400 4 units. Continue with metformin XR 500 mg twice daily. Continue with toshia 2 CGM, swipe 4-5X/day. Encouraged to continue with lifestyle/dietary changes adding protein to meals/snacks, daily hydration and activity daily as able. Follow-up in 6-8 weeks or sooner with concerns. Switch to rosuvastatin 40 mg nightly. Can take 2 tabs of current simvastatin 80 mg nightly until refill needed. Recheck lipids in 2-3 months. documented in this encounter Ordered Prescriptions Prescription Sig Dispensed Refills Start Date End Da te rosuvastatin (CRESTOR) 40 mg tablet Take 1 Tablet by mouth at bedtime. 90 Tablet 2 09/26/2021 06/30/2022 insulin aspart U-100 (NOVOLOG FLEXPEN U-100 INSULIN) 100 unit/mL (3 mL) injectable pen TDD 12 units. Sliding scale with meals: 200-300 2 units 300-400 4 units. 45 mL 3 09/26/2021 11/12/2021 rosuvastatin (CRESTOR) 40 mg tablet Take 1 Tablet by mouth daily. 90 Tablet 2 09/26/2021 09/26/2021 insulin glargine (LANTUS SOLOSTAR U-100 INSULIN) 100 unit/mL (3 mL) injection pen Inject 20 Units into the skin once daily AND 15 Units at bedtime. 32 mL 2 09/26/2021 11/12/2021 semaglutide (OZEMPIC) subcutaneous pen Inject 0.25 mg into the skin every 7 days. 3 mL 2 09/26/2021 11/12/2021 documented in this encounter Progress Notes * Shari Hsu RN - 09/26/2021 1530 EDT Needs eye- has appt scheduled Labs utd- scanned in Micro 08/15/2021 -605.3 Lab Results Component Value Date HGBA1C >14.0 06/06/2021 Glucose-54 A1c 09/09/2021=8.5 * Lisa Yan APRN - 09/26/2021 1530 EDT Reason for Visit: DM f/up PCP: BERNIE Pearson OTHER PROVIDERS: DIORAMIST Dr. Haider, cardiology Zenia Worley is a 31 y.o. female who presented to the clinic for a follow-up in [facility], with a history of DM for ?15 yrs. Hx of HLD, [place] on cpap, PTSD, schizoaffective disprder, anemia, hypothyroid, hypoglycemia comas. Does not currently work. Lives on her own. Is working with [employer] on finding work. Sister lives in [place]. Parents have . 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 Mentions going to ED in August, thought to have a blood clot. Found to be anemic and advised to haveiron infusions. Notes being told her heart has enlarged. Has f/up w/ cardiology upcoming. Has started using Toshia 2 CGM, Likes using this to help track her glucose data. Random BG in clinic 54. Given 3 juice in clinic. Had lunch of roasted chicken, beans and rice 3 hrs ago, given 4 units with this. Took 25 units lantus as well this morning. Reports over hte past month or so has not used a lot of her novolog as her BG's have been much lower and will come down on its own. Has increased her hydration daily, 80 oz/day Working on carb counting and daily hydration. Has stopped drinking soda and chips. Has increased activity 25 minutes/day up/down stairs. She is interested in bariatric surgery, has discussed this some with PCP. Has not reviewed with cardiology yet. TSH 2.98 (08/2021) Levothyroxine 200 mcg [facility] DM: dad, brother Recent A1C: 8.4 (08/2021) >14 (05/2021) >14 (01/2021) Diabetic Medications: Metformin XR 500 mg twice daily lantus 25 u AM and 18 u PM novolog SS: avg 5 units TID w/ and w/o meals 80-100 3 units 101-150 5 units 151-200 7 units 201-250 9 units 251-300 11 units 301-350 12 units Current monitoring regimen: Frequency of monitoring? : 4X/day Fasting range: 225-350 Preprandial range: before lunch 230's Before dinner 220's Postprandial range: 270's Any episodes of hypoglycemia? Yes? 87-95 has symptoms of lethargic, unfocused Cause of hypoglycemia? Nutrition Daily Recall: will have 1-2 meal/day, Breakfast: does not typically have Lunch: sandwich, frozen food, canned food Dinner: Snacks: PB/crackers Beverages: water 2-42 oz/day, crystal light, no etoh Exercise: walking daily 1hr Diabetes Related Problems Eye exam current (within one year): overdue, has visit scheduled. Last dental exam: overdue CVD,PVD,CAD: HLD, HTN Statin: simvastatin 40 mg, LDL 135 (08/2021) Aspirin: no ACEI/ARB: losartan 25 mg Prior visit with slot manager: CORNELIO Aguayo Foot care: self Comorbidities: Retinopathy: no Nephropathy/Kidney function: GFR >60 (08/2021) No results found for: CALCGFR MCR up to date? 605 (08/2021) No results found for: UABCR Neuropathy: on gabapentin for nerve pain on [...] normal. CGM INTERPRETATION Type of CGM: personal toshia 09/13-09/26/2021 Type of DM: II Diabetic Medications: lantus Metformin novolog Indication for monitoring: Hyper/hypoglycemia, insulin dosing Report Interpretation: Average glucose 158 mg/dL, standard deviation 27.7 TIR 68%, TAR 31%, TBR 1% Nocturnal glucose control: Yes/no Post-prandial glucose excursions: Hypoglycemia incidence: Other (exercise/activity): Hemoglobin A1c, POC Date Value Ref Range Status 06/06/2021 >14.0 5.7 % Final No results found for: UABCR No results found for: NA, K, CL, CO2, BUN, CSFGLU, CREATINE, GLU, CA, GFR Zenia Worley is a 31 y.o. female who presented to the clinic for a follow-up in [facility], with a history of DM for ?15 yrs. Problem List Items Addressed This Visit Endocrine/Metabolic Type 2 diabetes mellitus with hyperglycemia, with long-term current use of insulin ([facility]) ([facility]) - Primary Uncontrolled A1C 8.5 Given 4 juices prior to leaving clinic, BG recovered to 84. Congratulated on successful changes! Start ozempic 0.25 mg weekly injection. Inject into fatty tissue of thighs or buttocks for less potential side effects. Lower lantus 20 units AM and 15 units PM. Adjust novolog SS: take this 5-15 minutes BEFORE eating 200-300 2 units 300-400 4 units. Continue with metformin XR 500 mg twice daily. Continue with toshia 2 CGM, swipe 4-5X/day. Encouraged to continue with lifestyle/dietary changes adding protein to meals/snacks, daily hydration and activity daily as able. Follow-up in 6-8 weeks or sooner with concerns. Relevant Medications semaglutide (OZEMPIC) subcutaneous pen insulin glargine (LANTUS SOLOSTAR U-100 INSULIN) 100 unit/mL (3 mL) injection pen insulin aspart U-100 (NOVOLOG FLEXPEN U-100 INSULIN) 100 unit/mL (3 mL) injectable pen Other specified hypothyroidism TSH stable. BMI 60.0-69.9, adult ([facility]) ([facility]) Long discussion on bariatric surgery today. Would like to have clearance from cardiology prior to with her recent CV concerns. Long-term insulin use ([facility]) ([facility]) [facility] 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 Cardiac/Vasculature Mixed hyperlipidemia LDL above goal. Switch to rosuvastatin 40 mg nightly. Recheck lipids in 2-3 months. Essential hypertension, benign BP at goal. Patient Goals: A1C <7% Exercise: 150-300 minutes of CV exercise/week. I spent a total of 35 minutes on the date of this encounter meeting with the patient and reviewing documentation/coordinating care as described in the above note. No procedures were performed at the time of the visit. This time does not include spent reviewing CGM data. documented in this encounter Miscellaneous Notes * Assessment & Plan Note - Lisa Yan APRN - 09/26/2021 1606 EDT Associated Problem(s): BMI 60.0-69.9, adult ([facility]) Long discussion on bariatric surgery today. Would like to have clearance from cardiology prior to with her recent CV concerns. * Assessment & Plan Note - Lisa Yan APRN - 09/26/2021 1606 EDT Associated Problem(s): Other specified hypothyroidism TSH stable. * Assessment & Plan Note - Lisa Yan APRN - 09/26/2021 1600 EDT Associated Problem(s): Type 2 diabetes mellitus with hyperglycemia, with long- term current use of insulin ([facility]) Uncontrolled A1C 8.5 Given 4 juices prior to leaving clinic, BG recovered to 84. Congratulated on successful changes! Start ozempic 0.25 mg weekly injection. Inject into fatty tissue of thighs or buttocks for less potential side effects. Lower lantus 20 units AM and 15 units PM. Adjust novolog SS: take this 5-15 minutes BEFORE eating 200-300 2 units 300-400 4 units. Continue with metformin XR 500 mg twice daily. Continue with toshia 2 CGM, swipe 4-5X/day. Encouraged to continue with lifestyle/dietary changes adding protein to meals/snacks, daily hydration and activity daily as able. Follow-up in 6-8 weeks or sooner with concerns. * Assessment & Plan Note - Lisa Yan APRN - 09/26/2021 1559 EDT Associated Problem(s): Essential hypertension, benign BP at goal. * Assessment & Plan Note - Lisa Yan APRN - 09/26/2021 1558 EDT Associated Problem(s): Mixed hyperlipidemia LDL above goal. Switch to rosuvastatin 40 mg nightly. Recheck lipids in 2-3 months. documented in this encounter Plan of Treatment Upcoming Encounters Date Type Department Care Team (Late st Contact Info) Description 01/28/2024 10:30 EDT Office Visit [facility] Endocrinology [address] [place] [address] Lisa Yan NP [address] [phone] documented as of this encounter Visit Diagnoses Diagnosis Type 2 diabetes mellitus with hyperglycemia, with long-term current use of insulin ([facility])- Primary Other specified hypothyroidism BMI 60.0-69.9, adult ([facility]) Body Mass Index 60.0-69.9, adult Long-term insulin use ([facility]) Encounter for long-term (current) use of insulin [facility] 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 Mixed hyperlipidemia Essential hypertension, benign documented in this encounter Discontinued Medications Medication Sig Discontinue Reason Start Date End Da te QUEtiapine (SEROQUEL) 400 mg tablet Take 400 mg by mouth 2 times daily. 300mg at bedtime, 100mg in day as needed Abstraction 09/26/2021 simvastatin (ZOCOR) 40 mg tablet Take 1 Tablet by mouth daily. 07/18/2021 09/26/2021 insulin glargine (LANTUS SOLOSTAR U-100 INSULIN) 100 unit/mL (3 mL) injection pen Inject 25 Units into the skin 2 times daily. 06/09/2021 09/26/2021 insulin aspart U-100 (NOVOLOG FLEXPEN U-100 INSULIN) 100 unit/mL (3 mL) injectable pen TDD 36 three times daily with meals: 80-100 3 units 101-150 5 units 151-200 7 units 201-250 9 units 251-300 11 units 301-350 12 units 06/24/2021 09/26/2021 rosuvastatin (CRESTOR) 40 mg tablet Take 1 Tablet by mouth daily. 09/26/2021 09/26/2021 documented as of this encounter Historical Medications * This list may reflect changes made after this encounter. Medication Sig Dispensed Refills Start Date End Date cyanocobalamin (VITAMIN B-12) 500 mcg tablet Take 2 Tablets by mouth daily. ferrous gluconate (FERATE) 324 mg (37.5 mg iron) tablet tablet Take 1 Tablet by mouth 2 times daily with breakfast and dinner. 08/21/2021 ARIPiprazole (ABILIFY) 5 mg tablet 5 mg daily. 09/25/2021 12/31/2021 furosemide (LASIX) 40 mg tablet TAKE ONE TABLET BY MOUTH EVERY MORNING 09/23/2021 08/13/2023 losartan (COZAAR) 25 mg tablet Take 1 Tablet by mouth daily. 08/29/2021 08/13/2023 metoprolol SUCCinate (TOPROL-XL) 25 mg tablet Take 25 mg by mouth daily. 08/29/2021 12/31/2021 QUEtiapine (SEROQUEL) 100 mg tablet TAKE ONE TABLET BY MOUTH EVERY DAY NEEDED 09/21/2021 10/23/2022 QUEtiapine (SEROQUEL) 300 mg tablet Take 200 mg by mouth at bedtime. 09/21/2021 10/23/2022 added in this encounter Care Teams Director Group Sales Relationship Specialty Start Date End Date Lia Pearson APRN [address] [place] [id number] PCP - General Family Medicine - [facility] 09/26/21 Lisa Yan NP [address] [place] [phone] Nurse Practitioner Endocrinology, Diabetes and Metabolism 03/19/21 Lisa Yan NP [address] [place] [address] [phone] Nurse Practitioner Endocrinology, Diabetes and Metabolism 06/06/21 documented as of this encounter
--- OUTSIDE RECORDS SUMMARY | 2023-11-26 19:34 | XMS_ITS | Encounter Summary ---
Author Organization [facility] Address [address] [place] [address] Care Team Providers Care Vp Patient Name Role Phone Lisa Yan SUPERVISOR POST WAVE Unavailable Lisa Yan SUPERVISOR POST WAVE Unavailable Lia Pearson APRN Primary Care Provider [phone] Reason for Visit * Reason Comments Diabetes Encounter Details Date Type Department Care Team (Latest Contact Info) Description 06/18/2022 15:[address] [facility] [place] [place] Endocrinology [address] [place] [address] Lisa Yan SUPERVISOR POST WAVE [address] [facility] [address] [place] [phone] Type 2 diabetes mellitus with hyperglycemia, with long-term current use of insulin ([facility]) (Primary Dx); [facility]FP 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; Long-term insulin use (HCC-CMS); Essential hypertension, benign; Mixed hyperlipidemia Social History [...] Sign Reading Time Taken Comments Blood Pressure 124/88 06/18/2022 1514 EST lower arm Pulse 100 06/18/2022 1514 EST Temperature - - Respiratory Rate 22 06/18/2022 1514 EST Oxygen Saturation - - Inhaled Oxygen Concentration - - Weight 193.2 kg (426 lb) 06/18/2022 1514 EST Height 165.1 cm (5' 5) 06/18/2022 1514 EST Body Mass Index 70.89 06/18/2022 1514 EST documented in this encounter Patient Instructions * Patient Instructions* Lisa Yan NP - 06/18/2022 15:15 EST A1C 7.6 BG's are much better! Start jardiance 10 mg daily. Encouraged daily hydration and good bathroom hygiene. Adjust novolog sliding scale based on glucose and meal size, take this 5-15 minutes before eating. Continue ozempic 2 mg weekly and Metformin XR 1000 mg twice daily with food. Continue with whitley 2 CGM, swipe fasting, before meals and bedtime. Call if having lows <70's consistently!! Keep up with daily hydration, balanced meals and activity daily. Follow-up in 2-3 months or sooner with concerns. Labs in 1 month. documented in this encounter Ordered Prescriptions Prescription Sig Dispensed Refills Start Date End Da te insulin aspart U-100 (NOVOLOG FLEXPEN U-100 INSULIN) 100 unit/mL (3 mL) injectable pen TDD 150, TID w/ meals based on sliding scale 122 mL 3 06/18/2022 10/23/2022 empagliflozin (JARDIANCE) 10 mg tablet Take 1 Tablet by mouth daily. 90 Tablet 2 06/18/2022 12/17/2022 documented in this encounter Progress Notes * Shari Hsu RN - 06/18/2022 1515 EST Scanned labs utd Lab Results Component Value Date UABCR 281 (H) 11/13/2021 HGBA1C 8.6 (A) 03/04/2022 A1c 7.6 06/17/2022 * Lisa Yan NP - 06/18/2022 2999 EST Reason for Visit: DM f/up PCP: BERNIE Pearson OTHER PROVIDERS: CATALYTIC CASE OPERATOR Dr. Haider, cardiology Zeniajurgen Worley is a 32 y.o. female who presented to the clinic for a follow-up in [facility], with a history of DM for ?15 yrs. Hx of HLD, [place] on cpap, PTSD, schizoaffective disorder, anemia, hypothyroid, hypoglycemia comas. Does not currently work. Lives on her own. Is working with [employer] on finding work. Sister lives in [place]. Parents have . 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 Working with [facility] and [facility], feels this is going well. Is coming off seroquel as bariatric clinic feels this is causing weight gain and disrupting process. This has delayed the surgery, plans to see them again in July with potential new plan. Had A1C with PCP yesterday, doing much better. Mentions potential plans to go see her family, reservations with this and not wanting it to disrupther plans for surgery. They are not supporters of this and may attempt her to go in another direction. Random BG in clinic 54. No symptoms with this. Did have candy prior to visit as CGM stated having low. Given juice here in the clinic. Has finally been able to get ozempic 2 mg dose consistently, for about 1.5 mo now. Has been taking novolog 45 units TID w/ meals. Denies lows with this. Trying to follow bariatric program recommendations in regards to meals and food intake. Has increased her hydration daily, 80 oz/day Working on carb counting and daily hydration. Has increased activity 25 minutes/day up/down stairs. Is seeing a new sleep medicine provider and obtain a new mask and machine. No longer having issues with this and her skin. Notes working with [employer] in her area. Helped get her a gym membership in her area. Now utilizing this twice weekly. TSH 2.98 (08/2021) Levothyroxine 200 mcg [facility] DM: dad, brother Recent A1C: 7.6 (05/2022) 8.6 (02/2022) 6.2 (10/2021) 8.4 (08/2021) >14 (05/2021) >14 (01/2021) Diabetic Medications: ozempic 2 mg weekly Metformin XR 1000 mg twice daily lantus 17 u AM and 18 u PM novolog SS: 45 units TID Current monitoring regimen: Frequency of monitoring? : [...] Problems Eye exam current (within one year): [facility] Last dental exam: overdue CVD,PVD,CAD: HLD, HTN Statin: simvastatin 40 mg, LDL 89 (01/2022) Aspirin: no ACEI/ARB: losartan 25 mg Prior visit with grease press helper: CORNELIO Aguayo Foot care: self Comorbidities: Retinopathy: yes, will be getting laser treatment upcoming, along with the injections. Nephropathy/Kidney function: GFR >60 (10/2021) No results found for: CALCGFR MCR up to date? Lab Results Component Value Date Lab Urine Albumin to Creatinine Ratio 281 (H) 11/13/2021 Neuropathy: on gabapentin for nerve pain on [...] CGM INTERPRETATION Type of CGM: personal whitley 06/05-06/18/2022 Type of DM: II Diabetic Medications: lantus Metformin novolog ozempic Indication for monitoring: Hyper/hypoglycemia, insulin dosing Report Interpretation: Average glucose 150 mg/dL, standard deviation 30.1 TIR 71%, TAR 26%, TBR 3% Nocturnal glucose control: Yes Post-prandial glucose excursions: minimal, some w/ bfast Hypoglycemia incidence: yes w/ inc activity in afternoon/before bed Other (exercise/activity): Hemoglobin A1c, POC Date Value Ref Range Status 03/04/2022 8.6 (A) 5.7 % Final Lab Results Component Value Date UABCR 281 (H) 11/13/2021 No results found for: NA, K, CL, CO2, BUN, CSFGLU, CREATINE, GLU, CA, GFR Zenia Worley is a 32 y.o. female who presented to the clinic for a follow-up in [facility], with a history of DM for ?15 yrs. Problem List Items Addressed This Visit Endocrine/Metabolic Type 2 diabetes mellitus with hyperglycemia, with long-term current use of insulin ([facility]) ([facility]) - Primary Uncontrolled A1C 7.6 BG's are much better! Start jardiance 10 mg daily. Encouraged daily hydration and good bathroom hygiene. Adjust novolog sliding scale based on glucose and meal size, take this 5-15 minutes before eating. Continue ozempic 2 mg weekly and Metformin XR 1000 mg twice daily with food. Continue with whitley 2 CGM, swipe fasting, before meals and bedtime. Call if having lows <70's consistently!! Keep up with daily hydration, balanced meals and activity daily. Follow-up in 2-3 months or sooner with concerns. Labs in 1 months. MALB today. Low glucose in clinic, given juice, recovered to 70 with FSBG. Strongly encouraged her to continue with her health journey and using her supports here in [place] for this along with own decisions. Relevant Medications empagliflozin (JARDIANCE) 10 mg tablet insulin aspart U-100 (NOVOLOG FLEXPEN U-100 INSULIN) 100 unit/mL (3 mL) injectable pen Other Relevant Orders POCT GLUCOSE, MANUAL ENTRY (Completed) Long-term insulin use ([facility]) ([facility]) [facility] 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 Cardiac/Vasculature Mixed hyperlipidemia Essential hypertension, benign BP at goal. Patient [...] Plan Note - Lisa Yan NP - 06/18/2022 1602 EST Associated Problem(s): Mixed hyperlipidemia LDL at goal. * Assessment & Plan Note - Lisa Yan NP - 06/18/2022 1534 EST Associated Problem(s): Type 2 diabetes mellitus with hyperglycemia, with long- term current use of insulin ([facility]) Uncontrolled A1C 7.6 BG's are much better! Start jardiance 10 mg daily. Encouraged daily hydration and good bathroom hygiene. Adjust novolog sliding scale based on glucose and meal size, take this 5-15 minutes before eating. Continue ozempic 2 mg weekly and Metformin XR 1000 mg twice daily with food. Continue with whitley 2 CGM, swipe fasting, before meals and bedtime. Call if having lows <70's consistently!! Keep up with daily hydration, balanced meals and activity daily. Follow-up in 2-3 months or sooner with concerns. Labs in 1 months. MALB today. Low glucose in clinic, given juice, recovered to 70 with FSBG. Strongly encouraged her to continue with her health journey and using her supports here in [place] for this along with own decisions. * Assessment & Plan Note - Lisa Yan NP - 06/18/2022 1520 EST Associated Problem(s): Essential hypertension, benign BP at goal. documented in this encounter Plan of Treatment Upcoming Encounters Date Type Department Care Team (Late st Contact Info) Description 01/28/2024 10:30 EDT Office Visit [facility] Endocrinology [address] [place] [address] Lisa Yan NP [address] [facility] [address] [place] [address] documented as of this encounter Procedures Procedure Name Priority Date/Time Associated Diagnosis Comments URINE SNLRUXF-FD-BURIJYZW NE RATIO (ACR) Routine 06/18/2022 16:01 EST Type 2 diabetes mellitus with hyperglycemia, with long-term current use of insulin ([facility]) POCT GLUCOSE, MANUAL ENTRY Routine 06/18/2022 Type 2 diabetes mellitus with hyperglycemia, with long-term current use of insulin ([facility]) documented in this encounter Results * (ABNORMAL) URINE [id number]-PF-[id number] RATIO (ACR) (06/18/2022 16:01 EST) Albumin, Urine 103.6 See Note mg/dL 2022 18:48 EST [facility] Comment: NOTE: Reference range not established Creatinine, Urine 159.3 See Note mg/dL 06/18/2022 18:48 EST [facility] Comment: NOTE: Reference range not established Lab Urine Albumin to Creatinine Ratio 650(H) <30 ??g/mg Creatinine 06/18/2022 18:48 EST [facility] Comment: Urine Albumin/Creatinine Ratio: Normal: <30 ug/mg Creatinine Moderately increased albuminuria: 30-300 ug/mg Creatinine Severley increased albuminuria: >300 ug/mg Creatinine Urine URINE SPECIMEN COLLECTION, CLEAN CATCH / Unknown Urine Collect / Unknown 06/18/2022 16:01 EST 06/18/2022 16:01 EST Lisa Yan NP CHEMISTRY & BLOOD GAS ORDERABLES [facility] [address] [place] [address] * POCT GLUCOSE, MANUAL ENTRY (06/18/2022) Glucose, POC 72 70 - 100 mg/dL [facility] POINT OF CARE HN LAB POC COMMENT MANUAL (GLUCOSE) [facility] POINT OF piano accompanist ID [facility]ARE Blood CAPILLARY BLOOD / Unknown 06/18/2022 Lisa Yan NP POINT OF CARE SARAY T ORDERABLES [facility] documented in this encounter Visit Diagnoses Diagnosis Type 2 diabetes mellitus with hyperglycemia, with long-term current use of insulin ([facility])- Primary [facility]FP 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 Long-term insulin use ([facility]) Encounter for long-term (current) use of insulin Essential hypertension, benign Mixed hyperlipidemia documented in this encounter Discontinued Medications Medication Sig Discontinue Reason Start Date End Da te traZODone (DESYREL) 100 mg tablet Take 100 mg by mouth at bedtime. Abstraction 12/10/2021 06/18/2022 semaglutide (OZEMPIC) 1 mg/dose (4 mg/3 mL) pen injector Inject 1.5 mL into the skin every 7 days. 03/17/2022 06/18/2022 semaglutide (OZEMPIC) 1 mg/dose (4 mg/3 mL) pen injector Inject 0.75 mL into the skin every 7 days. Inject 1mg dose, twice to total 2mg dose each week. E11.9 03/20/2022 06/18/2022 insulin aspart U-100 (NOVOLOG FLEXPEN U-100 INSULIN) 100 unit/mL (3 mL) injectable pen Take up to 45 units with meals 3 times daily E11.9 increased dose 04/10/2022 06/18/2022 documented as of this encounter Historical Medications * This list may reflect changes made after this encounter. Medication Sig Dispensed Refills Start Date End Date PREVAIL EXTRA UNDERWEAR misc USE FOR ABNORMAL VAGINAL BLEEDING 06/07/2022 POISE PADS pad USE FOR ABNORMAL VAGINAL BLEEDING 06/05/2022 traZODone (DESYREL) 150 mg tablet Take 2 Tablets by mouth at bedtime. 06/16/2022 added in this encounter Care Teams Vp Patient Relationship Specialty Start Date End Date Lia Pearson APRN [address] [place] [address] PCP - General Family Medicine - [facility] Medicine 09/26/21 Lisa Yan SUPERVISOR POST WAVE [address] [place] [phone] Nurse Practitioner Endocrinology, Diabetes and Metabolism 03/19/21 Lisa Yan NP [address] [place] [phone] Nurse Practitioner Endocrinology, Diabetes and Metabolism 06/06/21 documented as of this encounter
--- OUTSIDE RECORDS SUMMARY | 2023-11-26 19:34 | XMS_ITS | Encounter Summary ---
Author Organization [facility] Address [address] [place] [address] Care Team Providers Care Clamp Operator Name Role Phone Maria R Hermosillo INSPECTOR ALUMINUM BOAT Primary Care Provider [phone] Lisa Yan JUNIOR MECHANICAL ENGINEER Unavailable [phone] Lisa Yan JUNIOR MECHANICAL ENGINEER Unavailable Reason for Visit * Reason Onset Date Comments Blood Sugar Problem 09/01/2021 Encounter Details Date Type Department Care Team (Late st Contact Info) Description 09/01/2021 Telephone [facility] [address] [place] [phone] Sheryl More RN Blood Sugar Problem Social History Tobacco [...] Telephone Encounter - Dina Baldwin RN - 09/01/2021 5220 EDT Reports low bs at night that are in the 50s. She takes 25 units of Lantus at 7pm and doesn't eat after 7-7:30. I cut her pm dose back to 18 units. * Telephone Encounter - Sheryl More RN - 09/01/2021 1344 EDT Patient called to leave message for Batsheva orosco blood sugars. documented in this encounter Plan of Treatment Upcoming Encounters Date Type Department Care Team (Late st Contact Info) Description 01/28/2024 10:30 EDT Office Visit [facility] Endocrinology [address] [place] [phone] Lisa Yan NP [address] [place] [phone] documented as of this encounter Visit Diagnoses Not on filedocumented in this encounter Care Teams Clamp Operator Relationship Specialty Start Date End Date Maria R Hermosillo FNP [address] [address] PCP - General Family Medicine - Primary Care 12/03/20 09/25/21 Lisa Yan JUNIOR MECHANICAL ENGINEER [address] [place] [phone] Nurse Practitioner Endocrinology, Diabetes and Metabolism 03/19/21 Lisa Yan NP [address] [place] [phone] Nurse Practitioner Endocrinology, Diabetes and Metabolism 06/06/21 documented as of this encounter
--- OUTSIDE RECORDS SUMMARY | 2023-11-26 19:34 | XMS_ITS | Encounter Summary ---
Author Organization [facility] Address [address] [place] [address] Care Team Providers Care Roof Truss Builder Name Role Phone Lisa Yan DOOR PATCHER Unavailable [phone] Lisa Yan DOOR PATCHER Unavailable Lia Pearson APRN Primary Care Provider [phone] Reason for Visit * Reason Comments Diabetes dfc Encounter Details Date Type Department Care Team (Late st Contact Info) Description 11/12/2021 15:00 EDT Nurse Only [facility] Endocrinology [address] [place] [address] Dina Baldwin, RN [address] [place] [address] Type 2 diabetes mellitus with hyperglycemia, with long-term current use of insulin ([facility]) (HCC) (Primary Dx); BMI 60.0-69.9, adult (HCC-CMS) (HCC) (HCC-CMS); Neuropathy Social History Tobacco Use Types Packs/Day [...] of this encounter Progress Notes * Dina Baldwin RN - 11/12/2021 1500 EDT Seeing Lisa Yan after foot care ?? Reason for Appointment 1. DM visit 30 minutes; dfc/preventative ?? Referred by: Lisa Yan Provider on site: Lisa Yan Last dfc visit: 06/06/2021 Last endocrine visit: today ?? Assessments: G62.9 ?? Here for routine foot care. No complaints. Pt unable to provide self care r/t neuropathy, morbid obesity and diabetes. Vascular: Pulses: DP and PT: Present DP's, weak PT right, none on left Color: nl. Varicosities:none Edema: !+ non-pitting pedals Skin type: nl. Turgor:good. Digital Hair: none Capillary Refill:<1 sec. Temperature: warm legs, cool feet. Dermatologic: Mycotic nails: none: Thickened Nails: all 10. thickness 2mm all except right hallux, 3mm Nail color:pink/white tips Callusing: Heels are hyperkeratotic and dry Corns: none. Ulcers: none. Web spaces: clean. Neurologic: Vibration: -5 forefoot and --9 hindfoot. Monofilament: 10. positive bilaterally, diminished on heels Parasthesias: numb sometimes Claudication: no Burning: no Orthopedic: Hallux: Nl. Hammer toes: none. Treatment: verbal permission obtained for foot care today 1. Acquired keratoderma Notes: no paring of heel calluses required today. Smoothed with mechanical grinder set up operator external with sterile tip 2. Onychauxis All nails were trimmed using sterile nail nippers. ?? Procedure Codes [id number] Trim nails ?? Follow Up 6 months ABN signed today: 11/12/2021 documented in this encounter Plan of Treatment Upcoming Encounters Date Type Department Care Team (Late st Contact Info) Description 01/28/2024 10:30 EDT Office Visit [facility] Endocrinology [address] [place] [address] Lisa Yan NP [address] [place] [address] [address] [place] [phone] documented as of this encounter Visit Diagnoses Diagnosis Type 2 diabetes mellitus with hyperglycemia, with long-term current use of insulin ([facility])- Primary BMI 60.0-69.9, adult ([facility]) Body Mass Index 60.0-69.9, adult Neuropathy Mononeuritis of unspecified site documented in this encounter Care Teams Roof Truss Builder Relationship Specialty Start Date End Date Lia Pearson APRN [address] [place] [phone] PCP - [facility] Medicine 09/26/21 Lisa Yan NP [address] [place] [phone] Nurse Practitioner Endocrinology, Diabetes and Metabolism 03/19/21 Lisa Yan NP [address] [place] [phone] Nurse Practitioner Endocrinology, Diabetes and Metabolism 06/06/21 documented as of this encounter
--- OUTSIDE RECORDS SUMMARY | 2023-11-26 19:34 | XMS_ITS | Encounter Summary ---
Author Organization [facility] Address [address] [place] [address] Care Team Providers Care Coil Assembler Name Role Phone Lisa Yan PALS NURSE Unavailable [phone] Lisa Yan PALS NURSE Unavailable Lia Pearson APRN Primary Care Provider [phone] Encounter Details Date Type Department Care Team (Late st Contact Info) Description 12/26/2021 Lab Requisition [facility] Pathology & Laboratory Medicine - [facility] [address] [place], [place] [address] Outr Resulting Lab, Provider Social History Tobacco [...] EDT Office Visit [facility] Endocrinology [address] [place], [place] [address] Lisa Yan, PALS NURSE [address] [facility] [address] [place] [phone] documented as of this encounter Procedures Procedure Name Priority Date/Time Associated Diagnosis Comments ZZCOVID-19 TEST [facility] PCR Today 12/25/2021 9:10 EDT COVID-19 TESTING Routine 12/25/2021 9:10 EDT documented in this encounter Results * [facility] (12/25/2021 9:10 EDT) Swab 12/25/2021 9:10 EDT 12/26/2021 17:03 EDT Provider Outr Resulting Lab MICROBIOLOGY - GENERAL ORDERABLES [facility] [address] [place] [address] * (ABNORMAL) COVID-19 TESTING (12/25/2021 9:10 EDT) COVID-19 rt-PCR Result Positive( AA) Negative 12/27/2021 10:35 EDT [facility] Comment: This test has not been FDA cleared or approved. This test has been authorized by FDA under an EUA for use by authorized laboratories. This test has been authorized only for detection of nucleic acid from 2019-nCoV, not for any other viruses or pathogens. This test is only authorized for the duration of the declaration that circumstances exist justifying the authorization of emergency use of in vitro diagnostic tests for detection and/or diagnosis of 2019-nCoV under section 564(b)(1) of Act, 21 U.S.C ?? 360bbb-3(b) (1), unless the authorization is terminated or revoked sooner. Testing was performed using the cristina SARS-CoV-2 assay ([employer] on the Cristina 6800 System Performing Lab Cristina [address] [facility] 12/27/2021 10:35 EDT [facility] Swab 12/25/2021 9:10 EDT 12/26/2021 17:03 EDT Provider Outr Resulting Lab MICROBIOLOGY - GENERAL ORDERABLES [facility] [address] [place] [address] documented in this encounter Visit Diagnoses Not on filedocumented in this encounter Additional Health Concerns Infection Onset Date Last Indicated Resolved Time COVID-19 12/25/2021 12/25/2021 01/14/2022 22:1 5 EDT documented as of this encounter Care Teams Coil Assembler Relationship Specialty Start Date End Date Lia Pearson APRN [address] [place] [address] PCP - General Family Medicine - [facility] Medicine 09/26/21 Lisa Yan NP [address] [place] [phone] Nurse Practitioner Endocrinology, Diabetes and Metabolism 03/19/21 Lisa Yan NP [address] [place] [address] [phone] Nurse Practitioner Endocrinology, Diabetes and Metabolism 06/06/21 documented as of this encounter
--- OUTSIDE RECORDS SUMMARY | 2023-11-26 19:34 | XMS_ITS | Encounter Summary ---
Author Organization [facility] Address [address] [place] [address] Care Team Providers Care Acidizer Water Well Name Role Phone Lisa Yan HOME HOSPICE AIDE Unavailable Lisa Yan HOME HOSPICE AIDE Unavailable Lia Pearson APRN Primary Care Provider [phone] Reason for Visit * Reason Onset Date Comments Medications Refill 09/29/2021 Encounter Details Date Type Department Care Team (Late st Contact Info) Description 09/29/2021 Refill [facility] Endocrinology [address] [place] [address] Shari Hsu RN Medications Refill Social History [...] Info) Description 01/28/2024 10:30 EDT Office Visit [facility] Endocrinology [address] [place] [phone] Lisa Yan NP [address] [phone] documented as of this encounter Visit Diagnoses Not on filedocumented in this encounter Care Teams Acidizer Water Well Relationship Specialty Start Date End Date Lia Pearson APRN [address] [place] [phone] PCP - General Family Medicine [facility] Medicine 09/26/21 Lisa Yan HOME HOSPICE AIDE [address] [phone] Nurse Practitioner Endocrinology, Diabetes and Metabolism 03/19/21 Lisa Yan NP [address] [phone] Nurse Practitioner Endocrinology, Diabetes and Metabolism 06/06/21 documented as of this encounter
--- OUTSIDE RECORDS SUMMARY | 2023-11-26 19:34 | XMS_ITS | Encounter Summary ---
Author Organization [facility] Address [address] [place] [address] Care Team Providers Care Ekg Technician Name Role Phone Maria R Hermosillo CORPORATE RECYCLING MANAGER Primary Care Provider [phone] Lisa Yan INSTANT PRINTER OPERATOR Unavailable Lisa Yan INSTANT PRINTER OPERATOR Unavailable [phone] Reason for Visit * Reason Onset Date Comments Diabetes 08/21/2021 Encounter Details Date Type Department Care Team (Late st Contact Info) Description 08/21/2021 Telephone [facility] Endocrinology [address] [place] [address] Shari Hsu RN Diabetes Social History Tobacco Use Types Packs/Day Years [...] Telephone Encounter - Dina Baldwin RN - 08/25/2021 1113 EDT I spoke with her. So far one is sticking to her abdomen. Given option for [email or web address] or Mastisol. * Telephone Encounter - Shari Hsu RN - 08/21/2021 1002 EDT Please call pt Wednesday- called - having problems getting whitley to adhere- tried tegaderm andcalled company without success- said you had a way to make them stick documented in this encounter Plan of Treatment Upcoming Encounters Date Type Department Care Team (Late st Contact Info) Description 01/28/2024 10:30 EDT Office Visit [facility] Endocrinology [address] [place] [address] [phone] Lisa Yan NP [address] [place] [phone] documented as of this encounter Visit Diagnoses Not on filedocumented in this encounter Care Teams Ekg Technician Relationship Specialty Start Date End Date Maria R Hermosillo FNP [facility] [address] [address] PCP - General Family Medicine - Primary Care 12/03/20 09/25/21 Lisa Yan NP [address] [place] [phone] Nurse Practitioner Endocrinology, Diabetes and Metabolism 03/19/21 Lisa Yan NP [address] [place] [phone] Nurse Practitioner Endocrinology, Diabetes and Metabolism 06/06/21 documented as of this encounter
--- OUTSIDE RECORDS SUMMARY | 2023-11-26 19:34 | XMS_ITS | Encounter Summary ---
Author Organization [facility] Address [address] [place] [address] Care Team Providers Care Color Tester Name Role Phone Lisa Yan FISHER DIP NET Unavailable Lisa Yan FISHER DIP NET Unavailable Lia Pearson APRN Primary Care Provider [phone] Reason for Visit * Reason Comments Diabetes Encounter Details Date Type Department Care Team (Late st Contact Info) Description 11/12/2021 16:00 EDT Office Visit [facility] Endocrinology [address] [place] [address] Lisa Yan FISHER DIP NET [address] [facility] [address] [place] [address] Type 2 diabetes mellitus with hyperglycemia, with long-term current use of insulin ([facility]) (HCC) (Primary Dx); Long-term insulin use (HCC-CMS) (HCC); 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 Increase ozempic 0.5 mg weekly injection. Inject into fatty tissue of thighs or buttocks for less potential side effects. Lower lantus 12 units AM and 13 units PM. Adjust novolog sliding scale: >200 1 units, >300 2 units, before food. Continue Metformin XR 500 mg twice daily. Continue with whitley 2 CGM, swipe 4-5Xday. Reach out in 2 weeks and let me know if glucose is low/elevations. Encouraged to continue with daily hydration, balance meals and activity daily. Follow-up in 6-8 weeks or sooner with concerns. Fasting labs prior to next visit. documented in this encounter Ordered Prescriptions Prescription [...] at bedtime. 32 mL 2 11/12/2021 12/23/2021 semaglutide (OZEMPIC) subcutaneous pen Inject 0.5 mg into the skin every 7 days. 4.5 mL 2 11/12/2021 12/23/2021 documented in this encounter Progress Notes * Shari Hsu RN - 11/12/2021 1600 EDT Needs eye and micro Lab message sent Lab Results Component Value Date HGBA1C >14.0 06/06/2021 Glucose- * Lisa Yan NP - 11/12/2021 1600 EDT Reason for Visit: DM f/up PCP: BERNIE Pearson OTHER PROVIDERS: ACCOUNTING MACHINE MECHANIC Dr. aHider, cardiology Zenia Worley is a 31 y.o. female who presented to the clinic for a follow-up in [facility], with a history of DM for ?15 yrs. Hx of HLD, [place] on cpap, PTSD, schizoaffective disprder, anemia, hypothyroid, hypoglycemia comas. Does not currently work. Lives on her own. Is working with [employer] on finding work. Sister lives in [place]. Parents have . 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 Has had lasix increase with PCP, helping to reduce fluid, thinking that's where the weight gain hascome from. Feels the lasix has helped. Has upcoming cardiology visit as well. Random BG in clinic 50. Given juice, now up to 73. Did have lunch of rice, ground beef, broccoli, diet soda, this was 2 hrs ago, given 1 unit with this-BG 145. Keeps forgetting her current regimen wetalked about last visit. Did start the ozempic, tolerating this well. Adjusted lantus with Batsheva. Has increased her hydration daily, 80 oz/day Working on carb counting and daily hydration. Has increased activity 25 minutes/day up/down stairs. She is interested in bariatric surgery, has discussed this some with PCP. Has not reviewed with cardiology yet. TSH 2.98 (08/2021) Levothyroxine 200 mcg [facility] DM: dad, brother Recent A1C: 6.2 (10/2021) 8.4 (08/2021) >14 (05/2021) >14 (01/2021) Diabetic Medications: ozempic 0.25 mg weekly. Metformin XR 500 mg twice daily lantus 20 u AM and 15 u PM novolog SS: avg 5 units TID w/ and w/o meals 200-300 2 300-400 4 Current monitoring regimen: Frequency of monitoring? : [...] no etoh Exercise: walking daily 1hr, yoga weekly Diabetes Related Problems Eye exam current (within one year): [facility], [facility] Last dental exam: overdue CVD,PVD,CAD: HLD, HTN Statin: simvastatin 40 mg, LDL 135 (08/2021) Aspirin: no ACEI/ARB: losartan 25 mg Prior visit with snap shearer: CORNELIO Aguayo Foot care: self Comorbidities: Retinopathy: yes Nephropathy/Kidney function: GFR >60 (08/2021) No results [...] CGM INTERPRETATION Type of CGM: personal whitley 10/30-11/12/2021 Type of DM: II Diabetic Medications: lantus Metformin novolog ozempic Indication for monitoring: Hyper/hypoglycemia, insulin dosing Report Interpretation: Average glucose 156 mg/dL, standard deviation 36.7 TIR 60%, TAR 33%, TBR 7% Nocturnal glucose control: Yes Post-prandial glucose excursions: minimal Hypoglycemia incidence: yes all day Other (exercise/activity): Hemoglobin A1c, POC Date Value Ref Range Status 11/12/2021 6.2 (A) 5.7 % Final No results found for: UABCR No results found for: NA, K, CL, CO2, BUN, CSFGLU, CREATINE, GLU, CA, GFR Zenia Worley is a 31 y.o. female who presented to the clinic for a follow-up in [facility], with a history of DM for ?15 yrs. Problem List Items Addressed This Visit Endocrine/Metabolic Type 2 diabetes mellitus with hyperglycemia, with long-term current use of insulin ([facility]) ([facility]) - Primary Controlled A1C 6.2 Congratulated on successful changes! [...] weeks or sooner with concerns. MALB today. Relevant Medications semaglutide (OZEMPIC) subcutaneous pen insulin glargine (LANTUS SOLOSTAR U-100 INSULIN) 100 unit/mL (3 mL) injection pen insulin aspart U-100 (NOVOLOG FLEXPEN U-100 INSULIN) 100 unit/mL (3 mL) injectable pen Other Relevant Orders URINE [id number] RATIO (ACR) POCT GLUCOSE, MANUAL ENTRY (Completed) POCT HEMOGLOBIN A1C (Completed) Other specified hypothyroidism Long-term insulin use ([facility]) ([facility]) assisted 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 Cardiac/Vasculature Mixed hyperlipidemia LDL above goal. Recheck prior to next visit. Essential hypertension, benign BP at goal. Patient Goals: A1C <7% Exercise: 150-300 minutes of CV exercise/week. I spent a total of 35 minutes on the date of this encounter meeting with the patient and reviewing documentation/coordinating care as described in the above note. No procedures were performed at the time of the visit. This time does not include spent reviewing CGM data. * Dina Baldwin RN - 11/12/2021 1600 EDT Results for orders placed or performed in visit on 11/12/21 POCT GLUCOSE, MANUAL ENTRY Result Value Ref Range Glucose, POC 50 (A) 70 - 100 mg/dL [facility] POC COMMENT MANUAL (GLUCOSE) Tech ID POCT HEMOGLOBIN A1C Result Value Ref Range Hemoglobin A1c, POC 6.2 (A) 5.7 % * Dina Baldwin RN - 11/12/2021 1600 EDT Low bs 50 here in office. Drank a small can sugared soda. documented in this encounter Miscellaneous Notes * Assessment & Plan Note - Lisa Yan NP - 11/12/2021 1630 EDT Associated Problem(s): Essential hypertension, benign BP at goal. * Assessment & Plan Note - Lisa Yan NP - 11/12/2021 1630 EDT Associated Problem(s): Mixed hyperlipidemia LDL above goal. Recheck prior to next visit. * Assessment & Plan Note - Lisa Yan NP - 11/12/2021 1612 EDT Associated Problem(s): Type 2 diabetes mellitus with hyperglycemia, with long- term current use of insulin ([facility]) Controlled A1C 6.2 Congratulated on successful changes! [...] weeks or sooner with concerns. MALB today. documented in this encounter Plan of Treatment Upcoming Encounters Date Type Department Care Team (Late st Contact Info) Description 01/28/2024 10:[address] [facility] Endocrinology [address] [place] [phone] Lisa Yan NP [address] [place] [address] [place] [phone] documented as of this encounter Procedures Procedure Name Priority Date/Time Associated Diagnosis Comments URINE ASRADFS-OA-KRZSIALRN E RATIO (ACR) Routine 11/13/2021 10:12 EDT Type 2 diabetes mellitus with hyperglycemia, with long-term current use of insulin ([facility]) ([facility]) POCT GLUCOSE, MANUAL ENTRY Routine 11/12/2021 Type 2 diabetes mellitus with hyperglycemia, with long-term current use of insulin ([facility]) ([facility]) POCT HEMOGLOBIN A1C Routine 11/12/2021 Type 2 diabetes mellitus with hyperglycemia, with long-term current use of insulin ([facility]) ([facility]) documented in this encounter Results * (ABNORMAL) URINE [id number] RATIO (ACR) (11/13/2021 10:12 EDT) Albumin, Urine 32.1 See Note mg/dL 2021 18:44 EDT [facility] Comment: NOTE: Reference range not established Creatinine, Urine 114.3 See Note mg/dL 11/13/2021 18:44 EDT [facility] Comment: NOTE: Reference range not established Lab Urine Albumin to Creatinine Ratio 281(H) <30 ??g/mg Creatinine 11/13/2021 18:44 EDT [facility] Comment: Urine Albumin/Creatinine Ratio: Normal: <30 ug/mg Creatinine Moderately increased albuminuria: 30-300 ug/mg Creatinine Severley increased albuminuria: >300 ug/mg Creatinine Urine URINE / Unknown Urine Collect / Unknown 11/13/2021 10:12 EDT 11/13/2021 10:12 EDT Lisa Yan NP CHEMISTRY & BLOOD GAS ORDERABLES Performing Organization Address City/[facility]/ZIP Co de Phone Number [facility] [address] [place] [address] * (ABNORMAL) POCT HEMOGLOBIN A1C (11/12/2021) Hemoglobin A1c, POC 6.2(A) 5.7 % [facility] POINT OF CARE Blood CAPILLARY BLOOD / Unknown 11/12/2021 Lisa Yan NP POINT OF CARE SARAY T ORDERABLES Performing Organization Address City/[facility]/ZIP [facility] de [facility] Number [facility] * (ABNORMAL) POCT GLUCOSE, MANUAL ENTRY (11/12/2021) Glucose, POC 50(A) 70 - 100 mg/dL [facility] POINT OF CARE [facility] POC COMMENT MANUAL (GLUCOSE) [facility] POINT OF tongue carrier ID [facility] POIN T OF CARE Blood CAPILLARY BLOOD / Unknown 11/12/2021 Lisa Yan NP POINT OF CARE SARAY T ORDERABLES [facility] POINT OF CARE documented in this encounter Visit Diagnoses Diagnosis Type 2 diabetes mellitus with hyperglycemia, with long-term current use of insulin (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 09/26/2021 11/12/2021 insulin glargine (LANTUS SOLOSTAR U-100 INSULIN) 100 unit/mL (3 mL) injection pen Inject 20 Units into the skin once daily AND 15 Units at bedtime. 09/26/2021 11/12/2021 insulin aspart U-100 (NOVOLOG FLEXPEN U-100 INSULIN) 100 unit/mL (3 mL) injectable pen TDD 12 units. Sliding scale with meals: 200-300 2 units 300-400 4 units. 09/26/2021 11/12/2021 documented as of this encounter Historical Medications * This list may reflect changes made after this encounter. Medication Sig Dispensed Refills Start Date End Date LORazepam (ATIVAN) 0.5 mg tablet TAKE ONE TABLET BY MOUTH EVERY DAY NEEDED FOR ANXIETY 10/22/2021 11/12/2021 added in this encounter Care Teams Color Tester Relationship Specialty Start Date End Date Lia Pearson APRN [address] [place] [phone] PCP - General Family Medicine - [facility] Medicine 09/26/21 Lisa Yan NP [address] [place] [phone] Nurse Practitioner Endocrinology, Diabetes and Metabolism 03/19/21 Lisa Yan NP [address] [place] [phone] Nurse Practitioner Endocrinology, Diabetes and Metabolism 06/06/21 documented as of this encounter
--- OUTSIDE RECORDS SUMMARY | 2023-11-26 19:34 | XMS_ITS | Encounter Summary ---
Author Organization [facility] Address [address] [place] [address] Care Team Providers Care Mathematics Technician Name Role Phone Lisa Yan FAITH DOCTOR Unavailable [phone] Lisa Yan FAITH DOCTOR Unavailable Lia Pearson APRN Primary Care Provider [phone] Encounter Details Date Type Department Care Team (Late st Contact Info) Description 02/11/2022 Orders Only [facility] - [facility] Endocrinology [address] [place] [address] Lisa Yan FAITH DOCTOR [address] [facility] [address] [place] [phone] Social History Tobacco Use Types [...] 100 unit/mL (3 mL) injection pen Inject 19 Units into the skin once daily AND 19 Units at bedtime. Inject 17 Units into in am AND 18 Units at bedtime. (incrased dose). 30 mL 5 02/11/2022 03/04/2022 documented in this encounter Plan of Treatment Upcoming Encounters Date Type Department Care Team (Late st Contact Info) Description 01/28/2024 10:30 EDT Office Visit [facility] Endocrinology [address] [place], [place] [address] Lisa Yan NP [address] [place] [phone] documented as of this encounter Visit Diagnoses Not on filedocumented in this encounter Discontinued Medications Medication Sig Discontinue Reason Start Date End Da te insulin glargine (LANTUS SOLOSTAR U-100 INSULIN) 100 unit/mL (3 mL) injection pen Inject 17 Units into in am AND 18 Units at bedtime. (incrased dose) 02/06/2022 02/11/2022 documented as of this encounter Care Teams Mathematics Technician Relationship Specialty Start Date End Date Lia Pearson APRN [address] [place] [phone] PCP - General Family Medicine - [facility] Medicine 09/26/21 Lisa Yan FAITH DOCTOR [address] [place] [phone] Nurse Practitioner Endocrinology, Diabetes and Metabolism 03/19/21 Lisa Yan NP [address] [place] [phone] Nurse Practitioner Endocrinology, Diabetes and Metabolism 06/06/21 documented as of this encounter
--- OUTSIDE RECORDS SUMMARY | 2023-11-26 19:34 | XMS_ITS | Encounter Summary ---
Author Organization [facility] Address [address] [place] [address] Care Team Providers Care Laborer Landscape Name Role Phone Lisa Yan VEGETABLE INSPECTOR Unavailable Lisa Yan VEGETABLE INSPECTOR Unavailable Lia Pearson APRN Primary Care Provider [phone] Reason for Visit * Reason Comments Medications Refill Encounter Details Date Type Department Care Team (Late st Contact Info) Description 04/14/2022 Refill [facility] Endocrinology [address] [place] [address] Lisa Yan, VEGETABLE INSPECTOR 130 [facility] [address] [place] [phone] Medications Refill Social History Tobacco Use Types [...] THREE TIMES A DAY 270 Capsule 1 04/14/2022 10/20/2022 documented in this encounter Miscellaneous Notes * Telephone Encounter - Shari Hsu RN - 04/14/2022 0712 EST Pended for your e sig documented in this encounter Plan of Treatment Upcoming Encounters Date Type Department Care Team (Late st Contact Info) Description 01/28/2024 10:30 EDT Office Visit [facility] Endocrinology [address] [place] [phone] Lisa Yan NP [address] [place] [phone] documented as of this encounter Visit Diagnoses Not on filedocumented in this encounter Discontinued Medications Medication Sig Discontinue Reason Start Date End Da te gabapentin (NEURONTIN) 300 mg capsule TAKE ONE CAPSULE BY MOUTH THREE TIMES A DAY 11/18/2021 04/14/2022 documented as of this encounter Care Teams Laborer Landscape Relationship Specialty Start Date End Date Lia Pearson APRN [address] [place] [phone] PCP - General Family Medicine - [facility] Medicine 09/26/21 Lisa Yan NP [address] [place] [address] [phone] Nurse Practitioner Endocrinology, Diabetes and Metabolism 03/19/21 Lisa Yan NP [address] [place] [phone] Nurse Practitioner Endocrinology, Diabetes and Metabolism 06/06/21 documented as of this encounter
--- OUTSIDE RECORDS SUMMARY | 2023-11-26 19:34 | XMS_ITS | Encounter Summary ---
Author Organization [facility] Address [address] [place] [address] Care Team Providers Care Dairy Supplies Sales Representative Name Role Phone Lisa Yan CUTTER BRAKE LINING Unavailable Lisa Yan CUTTER BRAKE LINING Unavailable Lia Pearson APRN Primary Care Provider [phone] Reason for Visit * Reason Onset Date Comments Medications Refill 12/24/2021 Encounter Details Date Type Department Care Team (Late st Contact Info) Description 12/24/2021 Refill [facility] Endocrinology [address] [place] [address] Shari Hsu RN Medications Refill Social History [...] Info) Description 01/28/2024 10:30 EDT Office Visit [facility] Endocrinology [address] [place] [address] Lisa Yan NP [address] [phone] documented as of this encounter Visit Diagnoses Not on filedocumented in this encounter Care Teams Dairy Supplies Sales Representative Relationship Specialty Start Date End Date Lia Pearson APRN [address] [place] [phone] PCP - General Family Medicine [facility] Medicine 09/26/21 Lisa Yan CUTTER BRAKE LINING [address] [phone] Nurse Practitioner Endocrinology, Diabetes and Metabolism 03/19/21 Lisa Yan NP [address] [phone] Nurse Practitioner Endocrinology, Diabetes and Metabolism 06/06/21 documented as of this encounter
--- OUTSIDE RECORDS SUMMARY | 2023-11-26 19:34 | XMS_ITS | Encounter Summary ---
Author Organization [facility] Address [address] [place] [address] Care Team Providers Care Rivet Hammer Machine Operator Name Role Phone Lisa Yan ENVIRONMENTAL ADVISOR Unavailable [phone] Lisa Yan ENVIRONMENTAL ADVISOR Unavailable [phone] Lia Pearson APRN Primary Care Provider [phone] Reason for Visit * Reason Onset Date Comments Follow-up 01/16/2022 Encounter Details Date Type Department Care Team (Late st Contact Info) Description 01/16/2022 Telephone [facility] Endocrinology [address] [place] [phone] Shari Hsu RN Follow-up Social History Tobacco Use Types Packs/Day Years [...] Notes * Telephone Encounter - Lisa Yan ENVIRONMENTAL ADVISOR - 01/16/2022 9481 EDT On the path towards bariatric surgery. Needs to lose 20 lbs prior to surgery. Patient able to get 1 mg ozempic as of 01/02/2022. Will be in clinic upcoming in January, assess weight then and go forward. Was on phone for initial consult. Okay to adjust insulin if needed and continue to increase ozempic or switch to mounjaro if supply issues arise. * Telephone Encounter - Shari Hsu RN - 01/16/[address] Waller from [facility] would like you to call her back [phone] documented in this encounter Plan of Treatment Upcoming Encounters Date Type Department Care Team (Late st Contact Info) Description 01/28/2024 10:30 EDT Office Visit [facility] Endocrinology [address] [place] [phone] Lisa Yan NP [address] [place] [phone] documented as of this encounter Visit Diagnoses Not on filedocumented in this encounter Care Teams Rivet Hammer Machine Operator Relationship Specialty Start Date End Date Lia Pearson APRN [address] [place] [address] [phone] PCP - General Family Medicine [facility] Medicine 09/26/21 Lisa Yan NP [address] [place] [phone] Nurse Practitioner Endocrinology, Diabetes and Metabolism 03/19/21 Lisa Yan NP [address] [place] [phone] Nurse Practitioner Endocrinology, Diabetes and Metabolism 06/06/21 documented as of this encounter
--- OUTSIDE RECORDS SUMMARY | 2023-11-26 19:34 | XMS_ITS | Encounter Summary ---
Author Organization [facility] Address [address] [place] [address] Care Team Providers Care Banquet Manager Name Role Phone Lisa Yan WELCOME DESK AGENT Unavailable Lisa Yan WELCOME DESK AGENT Unavailable Lia Pearson APRN Primary Care Provider [phone] Reason for Visit * Reason Onset Date Comments Diabetes 10/30/2021 Encounter Details Date Type Department Care Team (Late st Contact Info) Description 10/30/2021 Telephone [facility] Endocrinology [address] [place], [place] [address] Dina Baldwin, TOM [address] [place], [place] [phone] Diabetes Social History Tobacco Use Types Packs/Day [...] Telephone Encounter - Dina Baldwin RN - 10/30/2021 1319 EDT She is reporting high fbs: 200's This am 278. Took her 2units. In 1 hour bs 318 so she took 2 more units. By lunch bs 70. She treated with oj and crackers with pb. bs up to 79. Lantus 20 units am, 10 units pm. FBS: 200's. Lunch: 70-105.Dinner: 140-160. HS: 90-110. I increased pm lantus from 10 up to 14 and asked she do no extra corrections on her scale so we cansee what happens. I think she is stacking insulin. Reports weight is up 20 lb. Lasix has been doubled to twice daily now. She is [place]. Unsure how she has gained weight as she is attentive to diet and trying to exercise. Sounds like fluid. They are also adjusting psych meds now. She is to call me the beginning of the week if she is still having low blood sugars. documented in this encounter Plan of Treatment Upcoming Encounters Date Type Department Care Team (Late st Contact Info) Description 01/28/2024 10:30 EDT Office Visit [facility] Endocrinology [address] [place] [address] Lisa Yan NP [address] [place] [phone] documented as of this encounter Visit Diagnoses Not on filedocumented in this encounter Care Teams Banquet Manager Relationship Specialty Start Date End Date Lia Pearson APRN [address] [place] [address] [phone] PCP - General Family Medicine - [facility] Medicine 09/26/21 Lisa Yan NP [address] [place] [phone] Nurse Practitioner Endocrinology, Diabetes and Metabolism 11/3/21 Lisa Yan NP [address] [place] [address] Nurse Practitioner Endocrinology, Diabetes and Metabolism 06/06/21 documented as of this encounter
--- OUTSIDE RECORDS SUMMARY | 2023-11-26 19:34 | XMS_ITS | Encounter Summary ---
Author Organization [facility] Address [address] [place] [address] Care Team Providers Care Midlevel Provider Name Role Phone Lisa Yan STEEL HANDLER Unavailable Lisa Yan STEEL HANDLER Unavailable Lia Pearson APRN Primary Care Provider [phone] Reason for Visit * Reason Comments Medications Refill Encounter Details Date Type Department Care Team (Late st Contact Info) Description 10/20/2022 Refill [facility] - [facility] Endocrinology [address] [place] [address] Lisa Yan, STEEL HANDLER 130 [facility] [address] [place] [phone] Medications Refill Social History Tobacco Use Types [...] THREE TIMES A DAY 270 Capsule 1 10/20/2022 04/23/2023 documented in this encounter Miscellaneous Notes * Telephone Encounter - Sheryl More RN - 10/20/2022 1626 EDT Prescription sent to pharmacy per Lisa Yan's orders. documented in this encounter Plan of Treatment Upcoming Encounters Date Type Department Care Team (Late st Contact Info) Description 01/28/2024 10:30 EDT Office Visit [facility] Endocrinology [address] [place] [address] [phone] Lisa Yan NP [address] [place] [phone] documented as of this encounter Visit Diagnoses Not on filedocumented in this encounter Discontinued Medications Medication Sig Discontinue Reason Start Date End Da te gabapentin (NEURONTIN) 300 mg capsule TAKE ONE CAPSULE BY MOUTH THREE TIMES A DAY 04/14/2022 10/20/2022 documented as of this encounter Care Teams Midlevel Provider Relationship Specialty Start Date End Date Lia Pearson APRN [address] [place] [phone] PCP - General Family Medicine - [facility] Medicine 09/26/21 Lisa Yan NP [address] [place] [phone] Nurse Practitioner Endocrinology, Diabetes and Metabolism 03/19/21 Lisa Yan NP [address] [place] [address] [phone] Nurse Practitioner Endocrinology, Diabetes and Metabolism 06/06/21 documented as of this encounter
--- OUTSIDE RECORDS SUMMARY | 2023-11-26 19:34 | XMS_ITS | Encounter Summary ---
Author Organization [facility] Address [address] [place] [address] Care Team Providers Care Telex Operator Name Role Phone Lisa Yan ATG JAVA DEVELOPER Unavailable Lisa Yan ATG JAVA DEVELOPER Unavailable [phone] Lia Pearson APRN Primary Care Provider [phone] Reason for Visit * Reason Comments Diabetes Encounter Details Date Type Department Care Team (Late st Contact Info) Description 12/31/2021 14:45 EDT Office Visit [facility] [place] [facility] [place] [address] [place] [address] Lisa Yan ATG JAVA DEVELOPER 130 [facility] [address] [place] [phone] Type 2 diabetes mellitus with hyperglycemia, with long-term current use of insulin ([facility]) ([facility]) (Primary Dx); Other specified hypothyroidism; Long-term insulin use ([facility]) ([facility]); MCFP 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; BMI 60.0-69.9, adult ([facility]) ([facility]) (HCC-CMS); Mixed hyperlipidemia; Essential hypertension, benign Social History [...] Sign Reading Time Taken Comments Blood Pressure 98/66 12/31/2021 1439 EDT Pulse 92 12/31/2021 1439 EDT Temperature - - Respiratory Rate 18 12/31/2021 1439 EDT Oxygen Saturation - - Inhaled Oxygen Concentration - - Weight 188.2 kg (415 lb) 12/31/2021 1439 EDT Height 165.1 cm (5' 5) 12/31/2021 1439 EDT Body Mass Index 69.06 12/31/2021 1439 EDT documented in this encounter Patient Instructions * Patient Instructions* Lisa Yan NP - 12/31/2021 14:45 EDT A1C 6.2 BGs getting better with viral load wearing off. Increase metformin XR 1000 mg AM and 500 mg PM, if tolerating after 2 weeks, increase 1000 mg Twicedaily with food. Adjust novolog sliding scale: take this 5-15 minutes before meals. 80-120 2 units 120-150 3 units 150-200 4 units 200-250 5 units 250-300 6 units >300 7 units Continue with ozmepic 1 mg weekly injection and lantus 12 units AM and 13 units PM. Continue with whitley 2 CGM, swipe 4-5X/day. Keep up great work on daily hdyration, balanced meals-adding protein w/ melas/snacks and fibrous vegetables. Keep up adding activity daily as able. Follow-up in 2-3 months or sooner with concerns. Recheck labs fasting in 4 weeks. Call with readings and how tolerating metformin in 2-4 weeks! Call with lows!! documented in this encounter Ordered Prescriptions Prescription Sig Dispensed Refills Start Date End Da te metFORMIN (GLUCOPHAGE-XR) 500 mg ER tablet Take 2 Tablets by mouth 2 times daily. 360 Tablet 2 12/31/2021 09/03/2022 metFORMIN (GLUCOPHAGE-XR) 500 mg ER tablet Take 1 Tablet by mouth 2 times daily. 180 Tablet 2 12/31/2021 12/31/2021 documented in this encounter Progress Notes * Shari Hsu, RN - 12/31/2021 3763 EDT Medicare Needs [facility] Lab Results Component Value Date UABCR 281 (H) 11/13/2021 HGBA1C 6.2 (A) 11/12/2021 Glucose-68 (whitley pt own) * Lisa Yan NP - 12/31/2021 4362 EDT Reason for Visit: DM f/up PCP: BERNIE Pearson OTHER PROVIDERS: ROCK DUST SPRAYER Dr. Haider, cardiology Zeniajurgen Worley is a 31 y.o. female who presented to the clinic for a follow-up in [facility], with a history of DM for ?15 yrs. Hx of HLD, [place] on cpap, PTSD, schizoaffective disorder, anemia, hypothyroid, hypoglycemia comas. Does not currently work. Lives on her own. Is working with [employer] on finding work. Sister lives in [place]. Parents have . 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 Working with weight and wellness at [facility], feels this is going well. Continues to feel strongly about going forward with bariatric surgery. Random BG in clinic 68. Given juice in clinic. [place] she overdid it with her activity earlier today.Had brunch of toast w/ tuna spread, this was about 4 hrs ago. Did have covid about 2 weeks ago, increase insulin use with this as her BG's were much more elevated. Taking novolog 9 units w/ all meals. Did increase her ozempic, first dose this past week, feeling okay with this thus far. Has lost 15 # since our last visit with this. Has increased her hydration daily, 80 oz/day Working on carb counting and daily hydration. Has increased activity 25 minutes/day up/down stairs. TSH 2.98 (08/2021) Levothyroxine 200 mcg FMH DM: dad, brother Recent A1C: 6.2 (10/2021) 8.4 (08/2021) >14 (05/2021) >14 (01/2021) Diabetic Medications: ozempic 1 mg weekly Metformin XR 500 mg twice daily lantus 12 u AM and 13 u PM novolog SS: 9 units w/ meals Current monitoring regimen: Frequency of monitoring? : [...] Problems Eye exam current (within one year): [facility], [facility], [facility] Last dental exam: overdue CVD,PVD,CAD: HLD, HTN Statin: simvastatin 40 mg, LDL 135 (08/2021) Aspirin: no ACEI/ARB: losartan 25 mg Prior visit with assisted living coordinator: CORNELIO Aguayo Foot care: self Comorbidities: Retinopathy: yes, will be getting laser treatment upcoming, along with the injections. Nephropathy/Kidney function: GFR >60 (08/2021) No results [...] CGM INTERPRETATION Type of CGM: personal whitley 12/18-12/31/2021 Type of DM: II Diabetic Medications: lantus Metformin novolog ozempic Indication for monitoring: Hyper/hypoglycemia, insulin dosing Report Interpretation: Average glucose 199 mg/dL, standard deviation 30.7 TIR 35%, TAR 63%, TBR 2% Nocturnal glucose control: Yes Post-prandial glucose excursions: minimal Hypoglycemia incidence: yes all day Other (exercise/activity): Hemoglobin A1c, POC Date Value Ref Range Status 11/12/2021 6.2 (A) 5.7 % Final Lab Results Component Value Date UABCR 281 (H) 11/13/2021 No results found for: NA, K, CL, CO2, BUN, CSFGLU, CREATINE, GLU, CA, GFR Zenia Worley is a 31 y.o. female who presented to the clinic for a follow-up in [facility], with a history of DM for ?15 yrs. Problem List Items Addressed This Visit Endocrine/Metabolic Type 2 diabetes mellitus with hyperglycemia, with long-term current use of insulin ([facility]) ([facility]) - Primary Controlled A1C 6.2 BGs getting better with viral load wearing off. Increase metformin XR 1000 mg AM and 500 mg PM, if tolerating after 2 weeks, increase 1000 mg Twicedaily with food. Adjust novolog sliding scale: take this 5-15 minutes before meals. 80-120 2 units 120-150 3 units 150-200 4 units 200-250 5 units 250-300 6 units >300 7 units Continue with ozmepic 1 mg weekly injection and lantus 12 units AM and 13 units PM. Continue with whitley 2 CGM, swipe 4-5X/day. Keep up great work on daily hdyration, balanced meals-adding protein w/ melas/snacks and fibrous vegetables. Keep up adding activity daily as able. Follow-up in 2-3 months or sooner with concerns. Recheck labs in 4 weeks. Will continue to increase ozempic as able/tolerated and lower insulin dosing with this. Will increase metformin as able when lows are MALB at f/up pending will discuss SGLT or increase losartan. Relevant Medications metFORMIN (GLUCOPHAGE-XR) 500 mg ER tablet Other Relevant Orders BASIC METABOLIC PANEL (BMP) Other specified hypothyroidism BMI 60.0-69.9, adult ([facility]) ([facility]) Long-term insulin use ([facility]) ([facility]) technician terminal and repeater 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 Cardiac/Vasculature Mixed hyperlipidemia Fasting lipids when able. Essential hypertension, benign BP at goal. Patient [...] Plan Note - Lisa Yan NP - 12/31/2021 1509 EDT Associated Problem(s): Mixed hyperlipidemia Fasting lipids when able. * Assessment & Plan Note - Lisa Yan NP - 12/31/2021 1509 EDT Associated Problem(s): Essential hypertension, benign BP at goal. * Assessment & Plan Note - Lisa Yan NP - 12/31/2021 1454 EDT Associated Problem(s): Type 2 diabetes mellitus with hyperglycemia, with long- term current use of insulin ([facility]) Controlled A1C 6.2 BGs getting better with viral load wearing off. Increase metformin XR 1000 mg AM and 500 mg PM, if tolerating after 2 weeks, increase 1000 mg Twicedaily with food. Adjust novolog sliding scale: take this 5-15 minutes before meals. 80-120 2 units 120-150 3 units 150-200 4 units 200-250 5 units 250-300 6 units >300 7 units Continue with ozmepic 1 mg weekly injection and lantus 12 units AM and 13 units PM. Continue with whitley 2 CGM, swipe 4-5X/day. Keep up great work on daily hdyration, balanced meals-adding protein w/ melas/snacks and fibrous vegetables. Keep up adding activity daily as able. Follow-up in 2-3 months or sooner with concerns. Recheck labs in 4 weeks. Will continue to increase ozempic as able/tolerated and lower insulin dosing with this. Will increase metformin as able when lows are MALB at f/up pending will discuss SGLT or increase losartan. documented in this encounter Plan of Treatment Upcoming Encounters Date Type Department Care Team (Late st Contact Info) Description 01/28/2024 10:30 EDT Office Visit [facility] Endocrinology [address] [place] [address] Lisa Yan NP [address] [phone] documented as of this encounter Visit Diagnoses Diagnosis Type 2 diabetes mellitus with hyperglycemia, with long-term current use of insulin ([facility])- Primary Other specified hypothyroidism Long-term insulin use ([facility]) Encounter for long-term (current) use of insulin MCFP 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 BMI 60.0-69.9, adult ([facility]) Body Mass Index 60.0-69.9, adult Mixed hyperlipidemia Essential hypertension, benign documented in this encounter Discontinued Medications Medication Sig Discontinue Reason Start Date End Da te metoprolol SUCCinate (TOPROL-XL) 25 mg tablet Take 25 mg by mouth daily. Abstraction 08/29/2021 12/31/2021 ARIPiprazole (ABILIFY) 5 mg tablet 5 mg daily. Abstraction 09/25/2021 12/31/2021 metFORMIN (GLUCOPHAGE-XR) 500 mg ER tablet Take 1 Tablet by mouth daily. Reorder 07/21/2021 12/31/2021 metFORMIN (GLUCOPHAGE-XR) 500 mg ER tablet Take 1 Tablet by mouth 2 times daily. 12/31/2021 12/31/2021 documented as of this encounter Historical Medications * This list may reflect changes made after this encounter. Medication Sig Dispensed Refills Start Date End Date chlorproMAZINE (THORAZINE) 50 mg tablet Take 1 Tablet by mouth at bedtime. 12/18/2021 glucose 4 gram tablet,chewable chewable tablet CHEW ONE TABLET BY MOUTH EVERY 10 MIN. NEEDED FOR HYPOGLYCEMIA UNTIL SYMPTOMS OF LOW BLOOD SUGAR ARE CONTROLLED 11/21/2021 norethindrone (AYGESTIN) 5 mg tablet Take 1 Tablet by mouth daily. Taking 2 tabs daily 3 times daily 11/27/2021 traZODone (DESYREL) 100 mg tablet Take 100 mg by mouth at bedtime. 12/10/2021 06/18/2022 ziprasidone (GEODON) 60 mg capsuleIndications:caryn imng bid 12/30/2021 10/23/2022 ARIPiprazole (ABILIFY) 15 mg tablet Take 15 mg by mouth daily. 12/26/2021 10/23/2022 metoprolol SUCCinate (TOPROL-XL) 50 mg tablet Take 1 Tablet by mouth daily. Taking 2 tabs daily 11/26/2021 08/13/2023 QUEtiapine (SEROQUEL) 200 mg tablet Take 200 mg by mouth at bedtime. 12/09/2021 10/23/2022 QUEtiapine (SEROQUEL) 50 mg tablet prn 12/28/2021 10/23/2022 added in this encounter Additional Health Concerns Infection Onset Date Last Indicated Resolved Time COVID-19 12/25/2021 12/25/2021 01/14/2022 22:1 5 EDT documented as of this encounter Care Teams Telex Operator Relationship Specialty Start Date End Date Lia Pearson APRN [address] [place] [phone] PCP - General Family Medicine - [facility] Medicine 09/26/21 Lisa Yan NP [address] [place] [phone] Nurse Practitioner Endocrinology, Diabetes and Metabolism 03/19/21 Lisa Yan NP [address] [place] [address] [phone] Nurse Practitioner Endocrinology, Diabetes and Metabolism 06/06/21 documented as of this encounter
--- OUTSIDE RECORDS SUMMARY | 2023-11-26 19:34 | XMS_ITS | Encounter Summary ---
Author Organization [facility] Address [address] [place] [address] Care Team Providers Care Rabbit Fancier Name Role Phone Lisa Yan CLEANING TECHNICIAN Unavailable Lisa Yan CLEANING TECHNICIAN Unavailable Lia Pearson APRN Primary Care Provider [phone] Reason for Visit * Reason Onset Date Comments Medications Refill 01/01/2022 Encounter Details Date Type Department Care Team (Late st Contact Info) Description 01/01/[address] [facility] Endocrinology [address] [place] [address] Shari Hsu RN Medications Refill Social History [...] Description 01/28/2024 10:[address] [facility] Endocrinology [address] [place] [address] Lias Yan CLEANING TECHNICIAN 130 [facility] [address] [place] [phone] documented as of this encounter Visit Diagnoses Not on filedocumented in this encounter Additional Health Concerns Infection Onset Date Last Indicated Resolved Time COVID-19 12/25/2021 12/25/2021 01/14/2022 22:1 5 EDT documented as of this encounter Care Teams Rabbit Fancier Relationship Specialty Start Date End Date Lia Pearson APRN [address] [place] [address] [phone] PCP - General Family [facility] Medicine 09/26/21 Lisa Yan CLEANING TECHNICIAN [address] [phone] Nurse Practitioner Endocrinology, Diabetes and Metabolism 03/19/21 Lisa Yan CLEANING TECHNICIAN [address] [phone] Nurse Practitioner Endocrinology, Diabetes and Metabolism 06/06/21 documented as of this encounter
--- OUTSIDE RECORDS SUMMARY | 2023-11-26 19:34 | XMS_ITS | Encounter Summary ---
Author Organization [facility] Address [address] [place] [address] Care Team Providers Care Paratransit Operator Name Role Phone Lisa Yan HAIR DESIGNER Unavailable [phone] Lisa Yan HAIR DESIGNER Unavailable Lia Pearson APRN Primary Care Provider [phone] Reason for Visit * Reason Onset Date Comments Diabetes 10/06/2021 dfc Encounter Details Date Type Department Care Team (Late st Contact Info) Description 10/06/2021 Telephone [facility] - [facility] Endocrinology [address] [place], [place] [phone] Dina Baldwin RN [address] [place], [place] [phone] Diabetes (df) Social History Tobacco Use Types Packs/Day Years [...] Miscellaneous Notes * Telephone Encounter - Dina Baldwin, RN - 10/06/2021 1548 EDT Wants [facility] visit; I am glad to do it but I lmom that Medicare is probably not going to pay for it. Lázaro scheduled it but she may call to cancel if she needs to. documented in this encounter Plan of Treatment Upcoming Encounters Date Type Department Care Team (Late st Contact Info) Description 01/28/2024 10:30 EDT Office Visit [facility] Endocrinology [address] [place] [phone] Lisa Yan NP [address] [place] [phone] documented as of this encounter Visit Diagnoses Not on filedocumented in this encounter Care Teams Paratransit Operator Relationship Specialty Start Date End Date Lia Pearson APRN [address] [place] [phone] PCP - General Family Medicine - [facility] Medicine 09/26/21 Lisa Yan HAIR DESIGNER [address] [place] [phone] Nurse Practitioner Endocrinology, Diabetes and Metabolism 03/19/21 Lisa Yan HAIR DESIGNER [address] [place] [phone] Nurse Practitioner Endocrinology, Diabetes and Metabolism 06/06/21 documented as of this encounter
--- OUTSIDE RECORDS SUMMARY | 2023-11-26 19:34 | XMS_ITS | Encounter Summary ---
Author Organization [facility] Address [address] [place] [address] Care Team Providers Care Asset Analyst Name Role Phone Lisa Yan DIAGNOSTIC TECHNOLOGIST Unavailable Lisa Yan DIAGNOSTIC TECHNOLOGIST Unavailable Lia Pearson APRN Primary Care Provider [phone] Encounter Details Date Type Department Care Team (Late st Contact Info) Description 03/17/2022 Orders Only [facility] - [facility] [place] [place]ocrinology [address] [place] [address] Lisa aYn DIAGNOSTIC TECHNOLOGIST 130 [facility] [address] [place] [phone] Social History Tobacco Use Types [...] Dispensed Refills Start Date End Da te semaglutide (OZEMPIC) 1 mg/dose (4 mg/3 mL) pen injector Inject 1.5 mL into the skin every 7 days. 18 mL 2 03/17/2022 06/18/2022 documented in this encounter Plan of Treatment Upcoming Encounters Date Type Department Care Team (Late st Contact Info) Description 01/28/2024 10:30 EDT Office Visit [facility] Endocrinology [address] [place] [phone] Lisa Yan NP [address] [place] [phone] documented as of this encounter Visit Diagnoses Not on filedocumented in this encounter Care Teams Asset Analyst Relationship Specialty Start Date End Date Lia Pearson APRN [address] [place] [address] [phone] PCP - General Family Medicine - [facility] Medicine 09/26/21 Lisa Yan DIAGNOSTIC TECHNOLOGIST [address] [place] [phone] Nurse Practitioner Endocrinology, Diabetes and Metabolism 03/19/21 Lisa Yan NP [address] [place] [phone] Nurse Practitioner Endocrinology, Diabetes and Metabolism 06/06/21 documented as of this encounter
--- OUTSIDE RECORDS SUMMARY | 2023-11-26 19:34 | XMS_ITS | Encounter Summary ---
Author Organization [facility] Address [address] [place] [address] Care Team Providers [facility] Name Role Phone Lisa Yan FILTER PRESS TENDER Unavailable Lisa Yan FILTER PRESS TENDER Unavailable Lia Pearson APRN Primary Care Provider [phone] Reason for Visit * Reason Comments Diabetes Encounter Details Date Type Department Care Team (Late st Contact Info) Description 01/29/2023 11:30 EDT Office Visit [facility] Endocrinology [address] [place] [address] Lisa Yan FILTER PRESS TENDER [address] [place] [address] Type 2 diabetes mellitus with hyperglycemia, with long-term current use of insulin ([facility]) (Primary Dx); Other specified hypothyroidism; Long-term insulin use ([facility]); manager terminal 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; Essential hypertension, benign; Mixed hyperlipidemia; BMI 60.0-69.9, adult ([facility]) Social History Tobacco Use Types Packs/Day Years [...] Sign Reading Time Taken Comments Blood Pressure 126/74 01/29/2023 1144 EDT Pulse - - Temperature - - Respiratory Rate - - Oxygen Saturation - - Inhaled Oxygen Concentration - - Weight 185.5 kg (409 lb) 01/29/2023 1144 EDT Height 165.1 cm (5' 5) 01/29/2023 1144 EDT Body Mass Index 68.06 01/29/2023 1144 EDT documented in this encounter Patient Instructions * Patient Instructions* Lisa Yan NP - 01/29/2023 11:30 EDT A1C 6.7 Lots of lows. Lower lantus 10 units daily. Adjust novolog sliding scale, given new meal based regimen sheet Continue with jardiance 10 mg daily, ozempic 2 mg weekly injection and Metformin XR 1000 mg twice daily with food. Switch to [employer] G7 CGM if able, use phone as reader. Discussed apps to download with this. If not able, continue with whitley 2 CGM. Call if having lows <80's!! Keep up with daily hydration, balanced meals and activity daily as able. Follow-up in 3 months or sooner with concerns. documented in this encounter Ordered Prescriptions Prescription Sig Dispensed Refills Start Date End Da te insulin aspart U-100 (NOVOLOG FLEXPEN U-100 INSULIN) 100 unit/mL (3 mL) injectable pen TDD 40, TID w/ meals based on sliding scale 90 mL 3 01/29/2023 05/19/2023 insulin glargine (LANTUS SOLOSTAR U-100 INSULIN) 100 unit/mL (3 mL) injection pen Inject 10 Units into the skin once daily. Inject 17 Units into in am AND 18 Units at bedtime. (incrased dose) 15 mL 2 01/29/2023 05/26/2023 documented in this encounter Progress Notes * Shari Hsu RN - 01/29/2023 1130 EDT Needs foot and eye Lab Results Component Value Date UABCR 650 (H) 06/18/2022 HGBA1C 5.8 (A) 10/23/2022 Glucose-81 * Lisa Yan NP - 01/29/2023 1130 EDT Reason for Visit: DM f/up PCP: BERNIE Pearson OTHER PROVIDERS: HOTEL ASSOCIATE [facility] Dr. Haider, cardiology [facility], [facility] Zenia Worley is a 32 y.o. female who presented to the clinic for a follow-up in [facility], with a history of DM since 2004. Hx of HLD, [place] on cpap, PTSD, schizoaffective disorder, anemia, hypothyroid,hypoglycemia comas. Does not currently work. Lives on her own. Is working with [employer] on finding work. Sister lives in [place]. Parents have . 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 Trip planned to [place] for [employer]. Mentions being in the hospital [facility],about 2 weeks ago for 3 days d/t feeling weak/unwell. ?anemia. Lowered insulin since then. Seeing hematology. Seeing H[employer]EL ASSOCI[employer]. Has met with bariatric surgeon this week. Discussed adjusting medications prior to this. Has upcoming anesthesiology consult. Random BG in clinic 81. Does not feel low in clinic. No novolog today. At times will get low with use of novolog, did lower this from last visit. Has c/o whitley reader not being accurate for her as will often have 30-40 pt difference in glucose from CGM to FSBG. Reports eating habits have changed since our last visit, mostly vegetables, minimal carbs/starches TSH 1.42 (09/2022) Levothyroxine 200 mcg H DM: dad, brother Recent A1C: 6.7 (01/2023) 5.8 (10/2022) 7.6 (05/2022) 8.6 (02/2022) 6.2 (10/2021) 8.4 (08/2021) >14 (05/2021) Diabetic Medications: jardiance 10 mg ozempic 2 mg weekly Metformin XR 1000 mg twice daily lantus 12 units daily novolog SS: avg 4-10 units Meals based regimen Current monitoring regimen: Frequency of monitoring? : [...] Eye exam current (within one year): UTD, [facility] Last dental exam: overdue CVD,PVD,CAD: HLD, HTN Statin: simvastatin 40 mg, LDL 92 (06/2022) Aspirin: no ACEI/ARB: losartan 25 mg Prior visit with child psychology teacher: CORNELIO Aguayo Foot care: self Comorbidities: Retinopathy: [...] INTERPRETATION Type of CGM: personal whitley 2 01/16-01/29/2023 Type of DM: II Diabetic Medications: lantus Metformin novolog ozempic jardiance Indication for monitoring: Hyper/hypoglycemia, insulin dosing Report Interpretation: Average glucose 108 mg/dL, standard deviation 34.9 TIR 82%, TAR 17%, TBR 11% Nocturnal glucose control: Yes Post-prandial glucose excursions: minimal, some w/ bfast Hypoglycemia incidence: Yes all throughout the day Other (exercise/activity): Hemoglobin A1c, POC Date Value Ref Range Status 01/29/2023 6.7 (A) 5.7 % Final Lab Results Component Value Date UABCR 650 (H) 06/18/2022 No results found for: NA, K, CL, CO2, BUN, CSFGLU, CREATINE, GLU, CA, GFR Zenia Worley is a 32 y.o. female who presented to the clinic for a follow-up in [facility], with a history of DM since 2004. Problem List Items Addressed This Visit Endocrine/Metabolic Type 2 diabetes mellitus with hyperglycemia, with long-term current use of insulin ([facility]) ([facility]) - Primary Controlled A1C 6.7 Lots of lows. Lower lantus 10 units daily. Adjust novolog sliding scale, given new meal based regimen sheet Continue with jardiance 10 mg daily, ozempic 2 mg weekly injection and Metformin XR 1000 mg twice daily with food. Switch to Kahuna G7 CGM if able, use phone as reader. Discussed apps to download with this. If not able, continue with [employer] 2 CGM. Call if having lows <80's!! Keep up with daily hydration, balanced meals and activity daily as able. Follow-up in 3 months or sooner with concerns. Discussed insulin storage and ?using bad insulin that causes the excessive elevations will have intermittently and cause her to use much more insulin than normal. Relevant Medications insulin glargine (LANTUS SOLOSTAR U-100 INSULIN) 100 unit/mL (3 mL) injection pen insulin aspart U-100 (NOVOLOG FLEXPEN U-100 INSULIN) 100 unit/mL (3 mL) injectable pen Other Relevant Orders POCT HEMOGLOBIN A1C (Completed) Other specified hypothyroidism TSH stable. BMI 60.0-69.9, adult ([facility]) Long-term insulin use ([facility]) ([facility]) senior care 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 Cardiac/Vasculature Mixed hyperlipidemia LDL stable. Essential hypertension, benign BP at goal. Patient [...] Plan Note - Lisa Yan NP - 01/29/2023 1211 EDT Associated Problem(s): Mixed hyperlipidemia LDL stable. * Assessment & Plan Note - Lisa Yan NP - 01/29/2023 1211 EDT Associated Problem(s): Other specified hypothyroidism TSH stable. * Assessment & Plan Note - Lisa Yan NP - 01/29/2023 1202 EDT Associated Problem(s): Type 2 diabetes mellitus with hyperglycemia, with long- term current use of insulin ([facility]) Controlled A1C 6.7 Lots of lows. Lower lantus 10 units daily. Adjust novolog sliding scale, given new meal based regimen sheet Continue with jardiance 10 mg daily, ozempic 2 mg weekly injection and Metformin XR 1000 mg twice daily with food. Switch to [employer] G7 CGM if able, use phone as [...] to use much more insulin than normal. * Assessment & Plan Note - Lisa Yan NP - 01/29/2023 1156 EDT Associated Problem(s): Essential hypertension, benign BP at goal. documented in this encounter Plan of Treatment Upcoming Encounters Date Type Department Care Team (Late st Contact Info) Description 01/28/2024 10:30 EDT Office Visit [facility] Endocrinology [address] [place] [address] Lisa Yan NP [address] [facility] [address] [place] [address] documented as of this encounter Procedures Procedure Name Priority Date/Time Associated Diagnosis Comments POCT HEMOGLOBIN A1C Routine 01/29/2023 Type 2 diabetes mellitus with hyperglycemia, with long-term current use of insulin ([facility]) documented in this encounter Results * (ABNORMAL) POCT HEMOGLOBIN A1C (01/29/2023) Hemoglobin A1c, POC 6.7(A) 5.7 % [facility] POINT OF CARE Blood CAPILLARY BLOOD / Unknown 01/29/2023 Lisa Yan NP POINT OF CARE SARAY T ORDERABLES [facility] POINT OF CARE documented in this encounter Visit Diagnoses Diagnosis Type 2 diabetes mellitus with hyperglycemia, with long-term current use of insulin ([facility])- Primary Other specified hypothyroidism Long-term insulin use ([facility]) Encounter for long-term (current) use of insulin senior care 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 Essential hypertension, benign Mixed hyperlipidemia BMI 60.0-69.9, adult ([facility]) Body Mass Index 60.0-69.9, adult documented in this encounter Discontinued Medications Medication Sig Discontinue Reason Start Date End Da te chlorproMAZINE (THORAZINE) 200 mg tablet TAKE 1 TABLET BY MOUTH AT BEDTIME FOR SCHIZOAFFECTIVE DISORDER 10/14/2022 01/29/2023 insulin glargine (LANTUS SOLOSTAR U-100 INSULIN) 100 unit/mL (3 mL) injection pen Inject 10 Units into the skin once daily AND 14 Units at bedtime. Inject 17 Units into in am AND 18 Units at bedtime. (incrased dose). 10/23/2022 01/29/2023 insulin aspart U-100 (NOVOLOG FLEXPEN U-100 INSULIN) 100 unit/mL (3 mL) injectable pen TDD 90, TID w/ meals based on sliding scale 12/04/2022 01/29/2023 documented as of this encounter Care Teams Regional Cra Relationship Specialty Start Date End Date Lia Pearson APRN [address] [place] [id number] PCP - [facility] Medicine 09/26/21 Lisa Yan NP [address] [place] [phone] Nurse Practitioner Endocrinology, Diabetes and Metabolism 03/19/21 Lisa Yan NP [address] [place] [phone] Nurse Practitioner Endocrinology, Diabetes and Metabolism 06/06/21 documented as of this encounter
--- OUTSIDE RECORDS SUMMARY | 2023-11-26 19:34 | XMS_ITS | Encounter Summary ---
Author Organization [facility] Address [address] [place] [address] Care Team Providers Care Range Rider Name Role Phone Lisa Yan INFORMATION RESOURCES DIRECTOR Unavailable Lisa Yan INFORMATION RESOURCES DIRECTOR Unavailable Lia Pearson APRN Primary Care Provider [phone] Reason for Visit * Reason Comments Diabetes Encounter Details Date Type Department Care Team (Late st Contact Info) Description 03/04/2022 15:00 EDT Office Visit [facility] Endocrinology [address] [place] [address] Lisa Yan INFORMATION RESOURCES DIRECTOR [address] [facility] [address] [place] [address] Type 2 diabetes mellitus with hyperglycemia, with long-term current use of insulin ([facility]) (Primary Dx); Long-term insulin use ([facility]); [facility] 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; BMI 60.0-69.9, adult ([facility]); Other specified hypothyroidism; Essential hypertension, benign; Mixed hyperlipidemia; RICHMOND (obstructive sleep apnea) Social History Tobacco Use Types Packs/Day Years [...] Sign Reading Time Taken Comments Blood Pressure 110/60 03/04/2022 1443 EDT lower arm Pulse 116 03/04/2022 1443 EDT Temperature - - Respiratory Rate 22 03/04/2022 1443 EDT Oxygen Saturation - - Inhaled Oxygen Concentration - - Weight 191 kg (421 lb) 03/04/2022 1443 EDT Height 165.1 cm (5' 5) 03/04/2022 1443 EDT Body Mass Index 70.06 03/04/2022 1443 EDT documented in this encounter Patient Instructions * Patient Instructions* Lisa Yan NP - 03/04/2022 15:00 EDT A1C 8.6 Lower lantus 17 units twice daily. Adjust novolog to meal based regimen, taking this 5-15 minutes before eating. See scanned doc. Continue with ozempic 2 mg weekly and Metformin XR 1000 mg twice daily with food. Continue with whitley 2 CGM, swipe 4-5X/day. Keep up with great daily hydration, balanced meals-adding protein to meals/snacks and activity daily. Follow-up in 2 months or sooner with concerns. Encouraged to reach out to PCP for new referral, let our office know which clinic and happy to sendthis as well. Reach out to CPAP supplier to see if able to get different mask/el to help prevent rubbing. documented in this encounter Ordered Prescriptions Prescription Sig Dispensed Refills Start Date End Da te insulin aspart U-100 (NOVOLOG FLEXPEN U-100 INSULIN) 100 unit/mL (3 mL) injectable pen Take up to 35 units with meals 3 times daily E11.9 increased dose 105 mL 3 03/04/2022 04/10/2022 insulin glargine (LANTUS SOLOSTAR U-100 INSULIN) 100 unit/mL (3 mL) injection pen Inject 17 Units into the skin once daily AND 17 Units at bedtime. Inject 17 Units into in am AND 18 Units at bedtime. (incrased dose). 30 mL 5 03/04/2022 07/03/2022 documented in this encounter Progress Notes * Shari Hsu, RN - 03/04/2022 1500 EDT [facility]eds [facility] Lab Results Component Value Date UABCR 281 (H) 11/13/2021 HGBA1C 6.2 (A) 11/12/2021 * Lisa Yan NP - 03/04/2022 1500 EDT Reason for Visit: DM f/up PCP: BERNIE Pearson OTHER PROVIDERS: [employer] Dr. Haider, cardiology Zenia Ana Worley is a 31 y.o. female who presented to the clinic for a follow-up in [facility], with a history of DM for ?15 yrs. Hx of HLD, RICHMOND on cpap, PTSD, schizoaffective disorder, anemia, hypothyroid, hypoglycemia comas. Does not currently work. Lives on her own. Is working with [employer] on finding work. Sister lives in [place]. Parents have . 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 Working with weight and wellness at [facility], feels this is going well. Will go forward with bariatric surgery in 06/2022. Had IUD placed yesterday and other [employer] PROF[employer] procedures, including TVUS for menogorrhea. States she was intubated as well. Was requested to fast prior to starting Wednesday evening. Did not take ozempic or insulin yesterday. Did take ozempic and lantus this morning. Did have COVID earlyAugust, did have greatly elevated BG's with this. Did have fever when first positive, body aches. [place] much better after 5 or so days. BG's have been elevated since. Random BG in clinic 41. States feeling okay leaving her home this morning, was low on her ride here. Given 3 juices in clinic today. Can slightly feel her lows, lightheaded, weak Continues to be in pain from the procedures. Taking tylenol for the pain. Has increased her metformin and feels she is tolerating this well. Mentions a supply issue with the 2 mg ozempic, has only taken 2 dose of this now today. Stopped rybelsus with this switch. Trying to follow bariatric program recommendations in regards to meals and food intake. Has increased her hydration daily, 80 oz/day Working on carb counting and daily hydration. Has increased activity 25 minutes/day up/down stairs. CPAP mask is giving small open lesions on her face. Has lost her sleep med provider. Has reached out to other offices that need referral placed prior to. Has not reached out to PCP or CPAP supplier regarding this. Did get labs at [facility]. TSH 2.98 (08/2021) Levothyroxine 200 mcg [facility] DM: dad, brother Recent A1C: 8.6 (02/2022) 6.2 (10/2021) 8.4 (08/2021) >14 (05/2021) >14 (01/2021) Diabetic Medications: ozempic 2 mg weekly Metformin XR 1000 mg twice daily lantus 19 u AM and 19 u PM novolog SS: avg 6 units w/ meals 100-150 0 180-220 3 u 221-280 6 u >280 8 u >350 12 u Current monitoring regimen: Frequency of monitoring? : [...] Problems Eye exam current (within one year): [facility] Last dental exam: overdue CVD,PVD,CAD: HLD, HTN Statin: simvastatin 40 mg, LDL 135 (08/2021) Aspirin: no ACEI/ARB: losartan 25 mg Prior visit with hostess party sales representative: CORNELIO Aguayo Foot care: self Comorbidities: Retinopathy: [...] CGM INTERPRETATION Type of CGM: personal whitley 02/19-03/04/2022 Type of DM: II Diabetic Medications: lantus Metformin novolog ozempic Indication for monitoring: Hyper/hypoglycemia, insulin dosing Report Interpretation: Average glucose 197 mg/dL, standard deviation 31.9 TIR 41%, TAR 58%, TBR 1% Nocturnal glucose control: Yes Post-prandial glucose excursions: yes w/ little insulin Hypoglycemia incidence: yes w/ inc activity Other (exercise/activity): Hemoglobin A1c, POC Date Value Ref Range Status 03/04/2022 8.6 (A) 5.7 % Final Lab Results Component Value Date UABCR 281 (H) 11/13/2021 No results found for: NA, K, CL, CO2, BUN, CSFGLU, CREATINE, GLU, CA, GFR Zenia Worley is a 31 y.o. female who presented to the clinic for a follow-up in [facility], with a history of DM for ?15 yrs. Problem List Items Addressed This Visit Endocrine/Metabolic Type 2 diabetes mellitus with hyperglycemia, with long-term current use of insulin ([facility]) ([facility]) - Primary Uncontrolled A1C 8.6 BG's are improving. Lower lantus 17 units twice daily. Adjust novolog to meal based regimen, taking this 5-15 minutes before eating. See scanned doc. Continue with ozempic 2 mg weekly and Metformin XR 1000 mg twice daily with food. Continue with whitley 2 CGM, swipe 4-5X/day. Keep up with great daily hydration, balanced meals-adding protein to meals/snacks and activity daily. Follow-up in 2 months or sooner with concerns. Will review labs when sent over. MALB today, pending will start SGLT. Low glucose in clinic, given juices, crackers and PB. FSBG came up to 86. Relevant Medications insulin glargine (LANTUS SOLOSTAR U-100 INSULIN) 100 unit/mL (3 mL) injection pen insulin aspart U-100 (NOVOLOG FLEXPEN U-100 INSULIN) 100 unit/mL (3 mL) injectable pen Other Relevant Orders POCT HEMOGLOBIN A1C (Completed) URINE [id number] RATIO (ACR) Other specified hypothyroidism BMI 60.0-69.9, adult ([facility]) ([facility]) Long-term insulin use ([facility]) ([facility]) terminal carman 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 Cardiac/Vasculature Mixed hyperlipidemia Will review labs when sent over. Essential hypertension, benign BP at goal. Other RICHMOND (obstructive sleep apnea) Encouraged to reach out to PCP for new referral, let our office know which clinic and happy to sendthis as well. Reach out to CPAP supplier to see if able to get different mask/el to help prevent rubbing. Patient Goals: A1C <7% Exercise: 150-300 minutes [...] Plan Note - Lisa Yan NP - 03/04/2022 1534 EDT Associated Problem(s): RICHMOND (obstructive sleep apnea) Encouraged to reach out to PCP for new referral, let our office know which clinic and happy to sendthis as well. Reach out to CPAP supplier to see if able to get different mask/el to help prevent rubbing. * Assessment & Plan Note - Lisa Yan NP - 03/04/2022 1527 EDT Associated Problem(s): Mixed hyperlipidemia Will review labs when sent over. * Assessment & Plan Note - Lisa Yan NP - 03/04/2022 1504 EDT Associated Problem(s): Type 2 diabetes mellitus with hyperglycemia, with long- term current use of insulin ([facility]) Uncontrolled A1C 8.6 BG's are improving. Lower lantus 17 units twice daily. Adjust novolog to meal based regimen, taking this 5-15 minutes before eating. See scanned doc. Continue with ozempic 2 mg weekly and Metformin XR 1000 mg twice daily with food. Continue with whitley 2 CGM, swipe 4-5X/day. Keep up with great daily hydration, balanced meals-adding protein to meals/snacks and activity daily. Follow-up in 2 months or sooner with concerns. Will review labs when sent over. MALB today, pending will start SGLT. Low glucose in clinic, given juices, crackers and PB. FSBG came up to 86. * Assessment & Plan Note - Lisa Yan NP - 03/04/2022 1503 EDT Associated Problem(s): Essential hypertension, benign BP at goal. documented in this encounter Plan of Treatment Upcoming Encounters Date Type Department Care Team (Late st Contact Info) Description 01/28/2024 10:30 EDT Office Visit [facility] Endocrinology [address] [place], [place] [phone] Lisa Yan NP [address] [facility] [address] [place] [address] documented as of this encounter Procedures Procedure Name Priority Date/Time Associated Diagnosis Comments POCT HEMOGLOBIN A1C Routine 03/04/2022 Type 2 diabetes mellitus with hyperglycemia, with long-term current use of insulin ([facility]) documented in this encounter Results * (ABNORMAL) URINE [id number] RATIO (ACR) (06/18/2022 16:01 EST) Albumin, Urine 103.6 See Note mg/dL 2022 18:48 EST [facility] Comment: NOTE: Reference range not established Creatinine, Urine 159.3 See Note mg/dL 06/18/2022 18:48 [facility] Comment: NOTE: Reference range not established Lab Urine Albumin to Creatinine Ratio 650(H) <30 ??g/mg Creatinine 06/18/2022 18:48 [facility] Comment: Urine Albumin/Creatinine Ratio: Normal: <30 ug/mg Creatinine Moderately increased albuminuria: 30-300 ug/mg Creatinine Severley increased albuminuria: >300 ug/mg Creatinine Urine URINE SPECIMEN COLLECTION, CLEAN CATCH / Unknown Urine Collect / Unknown 06/18/2022 16:01 EST 06/18/2022 16:01 EST Lisa Yan NP CHEMISTRY & BLOOD GAS ORDERABLES Performing Organization Address [facility] Co de Phone Number [facility] [address] [place] [address] * (ABNORMAL) POCT HEMOGLOBIN A1C (03/04/2022) Hemoglobin A1c, POC 8.6(A) 5.7 % [facility] POINT OF CARE Blood CAPILLARY BLOOD / Unknown 03/04/2022 Lisa Yan NP POINT OF CARE SARAY T ORDERABLES Performing Organization Address City/[facility]/ZIP Co de Phone Number [facility] POINT OF CARE documented in this encounter Visit Diagnoses Diagnosis Type 2 diabetes mellitus with hyperglycemia, with long-term current use of insulin ([facility])- Primary Long-term insulin use ([facility]) Encounter for long-term (current) use of insulin [facility] 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 BMI 60.0-69.9, adult ([facility]) Body Mass Index 60.0-69.9, adult Other specified hypothyroidism Essential hypertension, benign Mixed hyperlipidemia RICHMOND (obstructive sleep apnea) Obstructive sleep apnea (adult) (pediatric) documented in this encounter Discontinued Medications Medication Sig Discontinue Reason Start Date End Da te insulin aspart U-100 (NOVOLOG FLEXPEN U-100 INSULIN) 100 unit/mL (3 mL) injectable pen Take up to 35 units with meals 3 times daily E11.9 increased dose 02/06/2022 03/04/2022 insulin glargine (LANTUS SOLOSTAR U-100 INSULIN) 100 unit/mL (3 mL) injection pen Inject 19 Units into the skin once daily AND 19 Units at bedtime. Inject 17 Units into in am AND 18 Units at bedtime. (incrased dose). 02/11/2022 03/04/2022 documented as of this encounter Historical Medications * This list may reflect changes made after this encounter. Medication Sig Dispensed Refills Start Date End Date QUEtiapine (SEROQUEL) 400 mg tablet Take 400 mg by mouth. 02/17/2022 10/23/2022 added in this encounter Care Teams Range Rider Relationship Specialty Start Date End Date Lia Pearson APRN [address] [place] [id number] PCP - General Family Medicine - [facility] Medicine 09/26/21 Lisa Yan NP [address] [place] [address] [phone] Nurse Practitioner Endocrinology, Diabetes and Metabolism 03/19/21 Lisa Yan NP [address] [place] [address] [phone] Nurse Practitioner Endocrinology, Diabetes and Metabolism 06/06/21 documented as of this encounter
--- OUTSIDE RECORDS SUMMARY | 2023-11-26 19:34 | XMS_ITS | Encounter Summary ---
Author Organization [facility] Address [address] [place] [address] Care Team Providers Care Sql Server Dba Name Role Phone Lisa Yan BOILER SETTER Unavailable Lisa Yan BOILER SETTER Unavailable Lia Pearson APRN Primary Care Provider [phone] Encounter Details Date Type Department Care Team (Late st Contact Info) Description 12/24/2021 Orders Only [facility] Endocrinology [address] [place] [address] Shari Hsu RN Social History Tobacco Use Types Packs/Day [...] (3 mL) injectable pen Take up to 16 units with meals 3 times daily 45 mL 3 12/24/2021 02/05/2022 documented in this encounter Plan of Treatment Upcoming Encounters Date Type Department Care Team (Late st Contact Info) Description 01/28/2024 10:30 EDT Office Visit [facility] Endocrinology [address] [place], [place] [address] Lisa Yan NP [address] [phone] documented as of this encounter Visit Diagnoses Not on filedocumented in this encounter Discontinued Medications Medication Sig Discontinue Reason Start Date End Da te insulin aspart U-100 (NOVOLOG FLEXPEN U-100 INSULIN) 100 unit/mL (3 mL) injectable pen Take 9 units with each meal Reorder 12/23/2021 12/24/2021 documented as of this encounter Care Teams Sql Server Dba Relationship Specialty Start Date End Date Lia Pearson APRN [address] [place] [address] PCP - General Family Medicine [facility] Medicine 09/26/21 Lisa Yan, BOILER SETTER [address] [place] [address] [phone] Nurse Practitioner Endocrinology, Diabetes and Metabolism 03/19/21 Lisa Yan NP [address] [place] [phone] Nurse Practitioner Endocrinology, Diabetes and Metabolism 06/06/21 documented as of this encounter
--- OUTSIDE RECORDS SUMMARY | 2023-11-26 19:34 | XMS_ITS | Encounter Summary ---
Author Organization [facility] Address [address] [place] [address] Care Team Providers Care Coin Wrapping Machine Operator Name Role Phone Lisa Yan CYLINDER DIE MACHINE OPERATOR Unavailable Lisa Yan CYLINDER DIE MACHINE OPERATOR Unavailable Lia Pearson APRN Primary Care Provider [phone] Reason for Visit * Reason Comments Medications Refill Encounter Details Date Type Department Care Team (Late st Contact Info) Description 09/02/2022 Refill [facility] Endocrinology [address] [place] [address] Lisa Yan, CYLINDER DIE MACHINE OPERATOR 130 [facility] [address] [place] [phone] Medications Refill Social History Tobacco Use Types [...] TWO TABLETS BY MOUTH TWICE A DAY 360 Tablet 3 09/03/2022 09/14/2022 documented in this encounter Plan of Treatment Upcoming Encounters Date Type Department Care Team (Late st Contact Info) Description 01/28/2024 10:30 EDT Office Visit [facility] [address]ocrin[address] [place] [address] Lisa Yan NP [address] [place] [phone] documented as of this encounter Visit Diagnoses Not on filedocumented in this encounter Discontinued Medications Medication Sig Discontinue Reason Start Date End Da te metFORMIN (GLUCOPHAGE-XR) 500 mg ER tablet Take 2 Tablets by mouth 2 times daily. 12/31/2021 09/03/2022 documented as of this encounter Care Teams Coin Wrapping Machine Operator Relationship Specialty Start Date End Date Lia Pearson APRN [address] [place] [phone] PCP - General Family Medicine - [facility] Medicine 09/26/21 Lisa Yan NP [address] [place] [address] [phone] Nurse Practitioner Endocrinology, Diabetes and Metabolism 03/19/21 Lisa Yan NP [address] [place] [address] [phone] Nurse Practitioner Endocrinology, Diabetes and Metabolism 06/06/21 documented as of this encounter
--- OUTSIDE RECORDS SUMMARY | 2023-11-26 19:34 | XMS_ITS | Encounter Summary ---
Author Organization [facility] Address [address] [place] [address] Care Team Providers Care Production Operations Manager Name Role Phone Lisa Yan MAMMOGRAPHY TECH Unavailable Lisa Yan MAMMOGRAPHY TECH Unavailable [phone] Lia Pearson APRN Primary Care Provider [phone] Reason for Visit * Reason Comments Medications Refill Encounter Details Date Type Department Care Team (Late st Contact Info) Description 09/28/[address] [facility] Endocrinology [address] [place] [address] Vivienne Cohn MD 130 [facility] [address] [place] [phone] Medications Refill Social History Tobacco [...] TAKE ONE TABLET BY MOUTH EVERY DAY 90 Tablet 1 09/30/2022 03/29/2023 documented in this encounter Plan of Treatment Upcoming Encounters Date Type Department Care Team (Late st Contact Info) Description 01/28/2024 10:30 EDT Office Visit [facility] Endocrinology [address] [place] [address] Lisa Yan NP [address] [place] [address] [phone] documented as of this encounter Visit Diagnoses Not on filedocumented in this encounter Discontinued Medications Medication Sig Discontinue Reason Start Date End Da te levothyroxine (SYNTHROID) 200 mcg tablet Take 1 Tablet by mouth daily. 01/12/2022 09/30/2022 documented as of this encounter Care Teams Production Operations Manager Relationship Specialty Start Date End Date Lia Pearson APRN [address] [place] [id number] PCP - General Family Medicine - [facility] Medicine 09/26/21 Lisa Yan NP [address] [place] [phone] Nurse Practitioner Endocrinology, Diabetes and Metabolism 03/19/21 Lisa Yan MAMMOGRAPHY TECH [address] [place] [address] [phone] Nurse Practitioner Endocrinology, Diabetes and Metabolism 06/06/21 documented as of this encounter
--- OUTSIDE RECORDS SUMMARY | 2023-11-26 19:34 | XMS_ITS | Encounter Summary ---
Author Organization [facility] Address [address] [place] [address] Care Team Providers Care Barrel Charrer Name Role Phone Lisa Yan CLINICAL ASSOCIATE Unavailable Lisa Yan CLINICAL ASSOCIATE Unavailable Lia Pearson APRN Primary Care Provider [phone] Reason for Visit * Reason Comments Medications Refill Encounter Details Date Type Department Care Team (Late st Contact Info) Description 09/13/2022 Refill [facility] Endocrinology [address] [place] [address] Lisa Yan, CLINICAL ASSOCIATE 130 [facility] [address] [place] [phone] Medications Refill Social History Tobacco Use Types [...] MOUTH TWICE A DAY 360 Tablet 3 09/14/2022 08/30/2023 documented in this encounter Miscellaneous Notes * Telephone Encounter - Dina Baldwin RN - 09/14/2022 0842 EDT Prescription faxed to pharmacy per order Lisa Yan documented in this encounter Plan of Treatment Upcoming Encounters Date Type Department Care Team (Late st Contact Info) Description 01/28/2024 10:30 EDT Office Visit [facility] Endocrinology [address] [place] [address] Lisa Yan NP [address] [place] [address] [phone] documented as of this encounter Visit Diagnoses Not on filedocumented in this encounter Discontinued Medications Medication Sig Discontinue Reason Start Date End Da te metFORMIN (GLUCOPHAGE-XR) 500 mg ER tablet TAKE TWO TABLETS BY MOUTH TWICE A DAY 09/03/2022 09/14/2022 documented as of this encounter Care Teams Barrel Charrer Relationship Specialty Start Date End Date Lia Pearson APRN [address] [place] [phone] PCP - General Family Medicine - [facility] Medicine 09/26/21 Lisa Yan NP [address] [place] [phone] Nurse Practitioner Endocrinology, Diabetes and Metabolism 03/19/21 Lisa Yan NP [address] [place] [address] [phone] Nurse Practitioner Endocrinology, Diabetes and Metabolism 06/06/21 documented as of this encounter
--- OUTSIDE RECORDS SUMMARY | 2023-11-26 19:34 | XMS_ITS | Encounter Summary ---
Author Organization [facility] Address [address] [place] [address] Care Team Providers Care Senior Manager Name Role Phone Lisa Yan GIN CLERK Unavailable Lisa Yan GIN CLERK Unavailable Lia Pearson APRN Primary Care Provider [phone] Encounter Details Date Type Department Care Team (Late st Contact Info) Description 01/06/2023 Lab Requisition [facility] Pathology & Laboratory Medicine - [facility] [address], [place] [address] Outr Resulting Lab, Provider Social History Tobacco [...] Info) Description 01/28/2024 10:30 EDT Office Visit [facility] Endocrinology [address] [place], [place] [phone] Lisa Yan NP [address] [facility] [address] [place] [address] documented as of this encounter Procedures Procedure Name Priority Date/Time Associated Diagnosis Comments CORTISOL, STIMULATION 60 MINUTES Routine 01/05/2023 19:53 EDT documented in this encounter Results * CORTISOL, STIMULATION 60 MINUTES (01/05/2023 19:53 EDT) Pathologist [facility] Cortisol Stimulation, 60 min. 37 See Note ug/dL 01/06/2023 19:13 EDT [facility] Comment: NOTE: Expected Ranges for ACTH (Cortisol) Stimulation Test: Peak Concentrations at 30 - 60 minutes Minimal response: ??A cortisol value of >=18 ug/dL at the Baseline, 30 min, or 60 min sample is consistent with normal adrenal function. The results of this assay can be falsley elevated due to the consumption of Biotin. Blood VENOUS BLOOD / Unknown 01/05/2023 19:53 EDT 01/06/2023 17:38 EDT Provider Outr Resulting Lab CHEMISTRY & BLOOD GAS ORDERABLES Performing Organization Address City/State/[facility] Co de Phone Number [facility] [address] [place] [address] documented in this encounter Visit Diagnoses Not on filedocumented in this encounter Care Teams Senior Manager Relationship Specialty Start Date End Date Lia Pearson APRN [address] [place] [address] PCP - General Family Medicine - [facility] Medicine 09/26/21 Lisa Yan NP [address] [facility] [address] [place] [phone] Nurse Practitioner Endocrinology, Diabetes and Metabolism 03/19/21 Lisa Yan NP [address] [place] [phone] Nurse Practitioner Endocrinology, Diabetes and Metabolism 06/06/21 documented as of this encounter
--- OUTSIDE RECORDS SUMMARY | 2023-11-26 19:34 | XMS_ITS | Encounter Summary ---
Author Organization [facility] Address [address] [place] [address] Care Team Providers Care Log Handling Equipment Operator Name Role Phone Lisa Yan WELFARE SERVICE AIDE Unavailable Lisa Yan WELFARE SERVICE AIDE Unavailable Lia Pearson APRN Primary Care Provider [phone] Encounter Details Date Type Department Care Team (Late st Contact Info) Description 10/02/[address] [facility] Pathology & Laboratory Medicine - [place] [address] [place], [place] [address] Outr Resulting Lab, Provider Social History Tobacco [...] Info) Description 01/28/2024 10:30 EDT Office Visit Health system Endocrinology [address] [place], [place] [phone] Lisa Yan, WELFARE SERVICE AIDE 130 [facility] [address] [place] [address] documented as of this encounter Procedures Procedure Name Priority Date/Time Associated Diagnosis Comments VON WILLEBRAND FACTOR ACTIVITY Routine 10/02/2021 9:37 EDT ESTRADIOL, ADULTS Routine 10/02/2021 9:3 7 EDT VWF ANTIGEN Routine 10/02/2021 9:37 EDT FACTOR 8 ASSAY Routine 10/02/2021 9:37 EDT FSH Routine 10/02/2021 9:37 EDT documented in this encounter Results * FSH (10/02/2021 9:37 EDT) FSH 3.7 See Note mIU/mL 10/02/2021 20:40 EDT [facility] Blood VENOUS BLOOD / Unknown 10/02/2021 9:37 EDT 10/02/2021 19:14 EDT Narrative [facility] - 10/02/2021 20:40 EDT NOTE: Female FSH Reference Ranges (>= 13 Menstruating): PHYSIOLOGICAL STATUS ? REFERENCE RANGE ? Follicular (-12 to -4 days): ?? 2.5 - 10.2 mIU/mL Midcycle (-3 to +2 days): ?3.4 - 33.4 mIU/mL Luteal (+4 to +12 days): ? 1.5 - 9.1 mIU/mL Postmenopausal: ?23.0 - 116.3 mIU/mL Reference Ranges for female patients <13 years old have not been established. Provider Outr Resulting Lab CHEMISTRY & BLOOD GAS ORDERABLES Performing Organization Address [facility] de Phone Number [facility] [address] [place] [address] * (ABNORMAL) FACTOR 8 ASSAY (10/02/2021 9:37 EDT) [facility] Factor 8 Assay 231(H) 50 - 150 % 10/03/2021 10:53 EDT [facility] Comment:This FVIII activity is clot-based, and will overestimate the endogenous factor activity in the presence of emicizumab (Hemlibra). Blood VENOUS BLOOD / Unknown 10/02/2021 9:37 EDT 10/02/2021 19:14 EDT Provider Outr Resulting Lab HEMATOLOGY & PF4 ORDERABLES Performing Organization Address [facility] de Phone Number [facility] [address] [place] [address] * ESTRADIOL, ADULTS (10/02/2021 9:37 EDT) [facility] Estradiol 40 See Note pg/mL 10/02/2021 20:26 EDT [facility] Comment: NOTE: FEMALE REFERENCE RANGES: MENSTRUATING ? By cycle day relative to LH peak Follicular ?(-12 to -4 days) ??20-144 pg/mL Midcycle ?(-3 to +2 days) ?? 64-357 pg/mL Luteal ?(+4 t0 +12 days) ??56-214 pg/mL POSTMENOPAUSAL ?<32 pg/mL *Cross reactivity with Fulvestrant could lead to a falsely elevated estradiol result in patients treated with this drug. Blood VENOUS BLOOD / Unknown 10/02/2021 9:37 EDT 10/02/2021 19:14 EDT Provider Outr Resulting Lab CHEMISTRY & BLOOD GAS ORDERABLES Performing Organization Address [facility] de Phone Number [facility] [address] [place] [address] * (ABNORMAL) VWF ANTIGEN (10/02/2021 9:37 EDT) VWF Antigen 213(H) 50 - 185 % 10/03/2021 10:53 EDT [facility] Comment:The presence of Rheu matoid factor may produce an overestimation of the test result. TYPE O blood group may have lower ranges. VWF is an acute-phase reactant and stress, and other situations affect its plasma concentration. Therefore it might be advisable to repeat the analysis from another blood sample obtained on a different day. Blood VENOUS BLOOD / Unknown 10/02/2021 9:37 EDT 10/02/2021 19:14 EDT Provider Outr Resulting Lab HEMATOLOGY & PF4 ORDERABLES Performing Organization Address [facility] de Phone Number [facility] [address] [place] [address] * (ABNORMAL) VON WILLEBRAND FACTOR ACTIVITY (10/02/2021 9:37 EDT) VWF Activity 173(H) 49 - 163 % 10/03/2021 10:53 EDT [facility] Comment:Rheumatoid factor le vels greater than 200 IU/ml may lead to overestimation of the vWF activity level. TYPE O blood group may have lower ranges. VWF is an acute-phase reactant and stress, and other situations affect its plasma concentration Therefore it might be advisable to repeat the analysis from another blood sample obtained on a different day. Blood VENOUS BLOOD / Unknown 10/02/2021 9:37 EDT 10/02/2021 19:14 EDT Provider Outr Resulting Lab HEMATOLOGY & PF4 ORDERABLES Performing Organization Address [facility] de Phone Number [facility] [address] [place] [address] documented in this encounter Visit Diagnoses Not on filedocumented in this encounter Additional Health Concerns Infection Onset Date Last Indicated Resolved Time COVID-19 12/25/2021 12/25/2021 01/14/2022 22:1 5 EDT documented as of this encounter Care Teams Log Handling Equipment Operator Relationship Specialty Start Date End Date Lia Pearson APRN [address] [place] [phone] PCP - General Family Medicine - [facility] Medicine 09/26/21 Lisa Yan NP [address] [place] [phone] Nurse Practitioner Endocrinology, Diabetes and Metabolism 03/19/21 Lisa Yan NP [address] [place] [phone] Nurse Practitioner Endocrinology, Diabetes and Metabolism 06/06/21 documented as of this encounter
--- OUTSIDE RECORDS SUMMARY | 2023-11-26 19:34 | XMS_ITS | Encounter Summary ---
Author Organization [facility] Address [address] [place] [address] Care Team Providers Care Tank Bottom Assembler Name Role Phone Lisa Yan PIGMENT PROCESSOR Unavailable Lisa Yan PIGMENT PROCESSOR Unavailable Lia Pearson APRN Primary Care Provider [phone] Reason for Visit * Reason Comments Medications Refill Encounter Details Date Type Department Care Team (Late st Contact Info) Description 06/24/[address] [facility] Endocrinology [address] [place] [address] Lisa Yan, PIGMENT PROCESSOR 130 [facility] [address] [place] [phone] Medications Refill Social History Tobacco Use Types [...] Dispensed Refills Start Date End Da te BD AUTOSHIELD DUO PEN NEEDLE 30 gauge x 3/16 needle USE UP TO 5 PEN NEEDLES DAILY 500 Each 3 06/25/2022 06/30/2023 documented in this encounter Plan of Treatment Upcoming Encounters Date Type Department Care Team (Late st Contact Info) Description 01/28/2024 10:30 EDT Office Visit [facility] Endocrinology [address] [place] [phone] Lisa Yan NP [address] [place] [phone] documented as of this encounter Visit Diagnoses Not on filedocumented in this encounter Discontinued Medications Medication Sig Discontinue Reason Start Date End Da te BD AUTOSHIELD DUO PEN NEEDLE 30 gauge x 3/16 needle Inject 5 pen needles into the skin daily. e11.65 08/11/2021 06/25/2022 documented as of this encounter Care Teams Tank Bottom Assembler Relationship Specialty Start Date End Date Lia Pearson APRN [address] [place] [phone] PCP - General Family Medicine - [facility] 09/26/21 Lisa Yan NP [address] [place] [phone] Nurse Practitioner Endocrinology, Diabetes and Metabolism 03/19/21 Lisa Yan PIGMENT PROCESSOR [address] [place] [phone] Nurse Practitioner Endocrinology, Diabetes and Metabolism 06/06/21 documented as of this encounter
--- OUTSIDE RECORDS SUMMARY | 2023-11-26 19:34 | XMS_ITS | Encounter Summary ---
Author Organization [facility] Address [address] [place] [address] Care Team Providers Care Municipal Services Manager Name Role Phone Lisa Yan SMALL ORDER CUTTER Unavailable [phone] Lisa Yan SMALL ORDER CUTTER Unavailable [phone] Lia Pearson APRN Primary Care Provider [phone] Reason for Visit * Reason Onset Date Comments Follow-up 01/09/2022 Encounter Details Date Type Department Care Team (Late st Contact Info) Description 01/09/[address] [facility] Endocrinology [address] [place] [phone] Shari Hsu RN Follow-up Social History Tobacco [...] Notes * Telephone Encounter - Lisa Yan SMALL ORDER CUTTER - 01/14/2022 1203 EDT Left VM to call back and review care. * Telephone Encounter - Shari Hsu RN - 01/09/[address] Maria from [facility] weight loss clinic called to update you- she increased her ozempic to 1 mg weekly and decreased her long acting insulin as she was having overnight lows- please call to discuss [phone] documented in this encounter Plan of Treatment Upcoming Encounters Date Type Department Care Team (Late st Contact Info) Description 01/28/2024 10:30 EDT Office Visit [facility] Endocrinology [address] [place] [phone] Lisa Yan NP [address] [place] [phone] documented as of this encounter Visit Diagnoses Not on filedocumented in this encounter Additional Health Concerns Infection Onset Date Last Indicated Resolved Time COVID-19 12/25/2021 12/25/2021 01/14/2022 22:1 5 EDT documented as of this encounter Care Teams Municipal Services Manager Relationship Specialty Start Date End Date Lia Pearosn APRN [address] [place] [address] [phone] PCP - General Family Medicine - [facility] Medicine 09/26/21 Lisa Yan NP [address] [place] [phone] Nurse Practitioner Endocrinology, Diabetes and Metabolism 03/19/21 Lisa Yan NP [address] [place] [phone] Nurse Practitioner Endocrinology, Diabetes and Metabolism 06/06/21 documented as of this encounter
--- OUTSIDE RECORDS SUMMARY | 2023-11-26 19:34 | XMS_ITS | Encounter Summary ---
Author Organization [facility] Address [address] [place] [address] Care Team Providers Care Pitching Coach Name Role Phone Lisa Yan DYE WEIGHER HELPER Unavailable [phone] Lisa Yan DYE WEIGHER HELPER Unavailable Lia Pearson APRN Primary Care Provider [phone] Reason for Visit * Reason Onset Date Comments Medications Refill 12/17/2022 Encounter Details Date Type Department Care Team (Late st Contact Info) Description 12/17/[address] [facility] Endocrinology [address] [place] [phone] Sheryl More RN Medications Refill Social History Tobacco Use [...] Dispensed Refills Start Date End Da te empagliflozin (JARDIANCE) 10 mg tablet Take 1 Tablet by mouth daily. 90 Tablet 2 12/17/2022 06/01/2023 documented in this encounter Miscellaneous Notes * Telephone Encounter - Sheryl More RN - 12/17/2022 1044 EDT Prescription sent to pharmacy per Lisa Yan's orders. documented in this encounter Plan of Treatment Upcoming Encounters Date Type Department Care Team (Late st Contact Info) Description 01/28/2024 10:[address] [facility] Endocrinology [address] [place] [address] Lisa Yan NP [address] [phone] documented as of this encounter Visit Diagnoses Not on filedocumented in this encounter Discontinued Medications Medication Sig Discontinue Reason Start Date End Da te empagliflozin (JARDIANCE) 10 mg tablet Take 1 Tablet by mouth daily. Reorder 06/18/2022 12/17/2022 documented as of this encounter Care Teams Pitching Coach Relationship Specialty Start Date End Date Lia Pearson APRN [address] [place] [address] [phone] PCP - General Family Medicine - [facility] Medicine 09/26/21 Lisa Yan NP [address] [place] [phone] Nurse Practitioner Endocrinology, Diabetes and Metabolism 03/19/21 Lisa Yan NP [address] [place] [phone] Nurse Practitioner Endocrinology, Diabetes and Metabolism 06/06/21 documented as of this encounter
--- OUTSIDE RECORDS SUMMARY | 2023-11-26 19:34 | XMS_ITS | Encounter Summary ---
Author Organization [facility] Address [address] [place] [address] Care Team Providers Care Jewel Oliving Machine Operator Name Role Phone Lisa Yan RETAIL LOAN ORIGINATOR ASSISTANT Unavailable [phone] Lisa Yan RETAIL LOAN ORIGINATOR ASSISTANT Unavailable [phone] Lia Pearson APRN Primary Care Provider [phone] Reason for Visit * Reason Onset Date Comments Blood Glucose Review 07/02/2022 Encounter Details Date Type Department Care Team (Late st Contact Info) Description 07/02/2022 Telephone [facility] Endocrinology [address] [place] [address] Shari Hsu RN Blood Glucose Review Social [...] 100 unit/mL (3 mL) injection pen Inject 15 Units into the skin once daily AND 16 Units at bedtime. Inject 17 Units into in am AND 18 Units at bedtime. (incrased dose). 30 mL 5 07/03/2022 10/23/2022 documented in this encounter Miscellaneous Notes * Telephone Encounter - Lisa Yan NP - 07/03/2022 1051 EST CGM INTERPRETATION Type of CGM:??personal whitley 06/19-07/02/2022 Type of DM: II Diabetic Medications: ??lantus 17 u AM and 18 u PM Metformin novolog ozempic jardiance Indication for monitoring: Hyper/hypoglycemia, insulin dosing Report Interpretation:?? Average glucose 140 mg/dL, standard deviation 34.2 TIR 77%, TAR 19%, TBR 4% ?? Nocturnal glucose control: Yes Post-prandial glucose excursions: minimal, some w/ bfast Hypoglycemia incidence: yes w/ inc activity in afternoon/before bed Other (exercise/activity): PLAN: Sent Overhead.fmt message More lows ?tolerating jardiance Lower lantus 15 units AM and 16 units PM and lower your novolog dose by 2 units with all meals. * Telephone Encounter - Shari Hsu RN - 07/02/2022 1520 EST ----- Message from Lisa Yan NP sent at 07/02/2022 14:59 EST ----- Please print whitley data. Thanks documented in this encounter Plan of Treatment Upcoming Encounters Date Type Department Care Team (Late st Contact Info) Description 01/28/2024 10:30 EDT Office Visit [facility] Endocrinology [address] [place], [place] [phone] Lisa Yan NP 130 [facility] [address] [place] [phone] documented as of this encounter Visit Diagnoses Not on filedocumented in this encounter Discontinued Medications Medication Sig Discontinue Reason Start Date End Da te insulin glargine (LANTUS SOLOSTAR U-100 INSULIN) 100 unit/mL (3 mL) injection pen Inject 17 Units into the skin once daily AND 17 Units at bedtime. Inject 17 Units into in am AND 18 Units at bedtime. (incrased dose). 03/04/2022 07/03/2022 documented as of this encounter Care Teams Jewel Oliving Machine Operator Relationship Specialty Start Date End Date Lia Pearson APRN [address] [place] [address] PCP - General [facility] Medicine 09/26/21 Lisa Yan RETAIL LOAN ORIGINATOR ASSISTANT [address] [place] [address] [phone] Nurse Practitioner Endocrinology, Diabetes and Metabolism 03/19/21 Lisa Yan NP [address] [place] [address] [phone] Nurse Practitioner Endocrinology, Diabetes and Metabolism 06/06/21 documented as of this encounter
--- OUTSIDE RECORDS SUMMARY | 2023-11-26 19:34 | XMS_ITS | Encounter Summary ---
Author Organization [facility] Address [address] [place] [address] Care Team Providers Care Quarter Lining Smoother Name Role Phone Lisa Yan COAL HAULER Unavailable [phone] Lisa Yan COAL HAULER Unavailable Lia Pearson APRN Primary Care Provider [phone] Reason for Visit * Reason Comments Other Encounter Details Date Type Department Care Team (Late st Contact Info) Description 11/16/2021 Refill [facility] [place]inology [address] [place] [address] Lisa Yan COAL HAULER 130 [facility] [address] [place] [phone] Other Social History Tobacco Use Types Packs/Day Years [...] BY MOUTH THREE TIMES A DAY 270 capsule 1 11/18/2021 04/14/2022 documented in this encounter Miscellaneous Notes * Telephone Encounter - Sheryl More RN - 11/18/2021 0925 EDT Prescription sent to pharmacy per Lisa Yan's orders. documented in this encounter Plan of Treatment Upcoming Encounters Date Type Department Care Team (Late st Contact Info) Description 01/28/2024 10:[address] [facility] Endocrinology [address] [place] [address] [phone] Lisa Yan NP [address] [place] [phone] documented as of this encounter Visit Diagnoses Not on filedocumented in this encounter Discontinued Medications Medication Sig Discontinue Reason Start Date End Da te gabapentin (NEURONTIN) 300 mg capsule Take 1 capsule by mouth 3 times daily. E11.9 06/11/2021 11/18/2021 documented as of this encounter Care Teams Quarter Lining Smoother Relationship Specialty Start Date End Date Lia Pearson APRN [address] [place] [phone] PCP - General Family Medicine - [facility] Medicine 09/26/21 Lisa Yan NP [address] [place] [address] [phone] Nurse Practitioner Endocrinology, Diabetes and Metabolism 03/19/21 Lisa Yan NP [address] [place] [address] [phone] Nurse Practitioner Endocrinology, Diabetes and Metabolism 06/06/21 documented as of this encounter
--- OUTSIDE RECORDS SUMMARY | 2023-11-26 19:34 | XMS_ITS | Encounter Summary ---
Author Organization [facility] Address [address] [place] [address] Care Team Providers Care Business Specialist Name Role Phone Lisa Yan GRAIN CLEANER AND TRANSFER OPERATOR Unavailable Lisa Yan GRAIN CLEANER AND TRANSFER OPERATOR Unavailable Lia Pearson APRN Primary Care Provider [phone] Reason for Visit * Reason Comments Diabetes Encounter Details Date Type Department Care Team (Latest Contact Info) Description 10/23/2022 11:30 EDT Office Visit [facility] Endocrinology [address] [place] [address] Lisa Yan GRAIN CLEANER AND TRANSFER OPERATOR 130 [facility] [address] [place] [phone] Type 2 diabetes mellitus with hyperglycemia, with long-term current use of insulin ([facility]) (Primary Dx); nursing home 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; BMI 60.0-69.9, adult ([facility]); Long-term insulin use ([facility]); Other specified hypothyroidism; Essential hypertension, benign; Mixed hyperlipidemia Social History [...] Sign Reading Time Taken Comments Blood Pressure 96/60 10/23/2022 1116 EDT lower arm Pulse 88 10/23/2022 1116 EDT Temperature - - Respiratory Rate 20 10/23/2022 1116 EDT Oxygen Saturation - - Inhaled Oxygen Concentration - - Weight 186 kg (410 lb) 10/23/2022 1116 EDT Height 165.1 cm (5' 5) 10/23/2022 1116 EDT Body Mass Index 68.23 10/23/2022 1116 EDT documented in this encounter Patient Instructions * Patient Instructions* Lisa Yan NP - 10/23/2022 11:30 EDT A1C 5.8 Congratulated on successful changes!! Lower lantus 10 units AM and 14 units PM Lower novolog sliding scale by 3 units across the day! Continue to take the novolog BEFORE eating 5-15 minutes as best able. Continue with jardiance 10 mg, ozempic 2 mg weekly injection and Metformin XR 1000 mg twice daily with food. Continue with whitley 2 CGM, swipe fasting, before meals and bedtime. Upgrade to whitley 3 when due for refill. Keep up with daily hydration, balanced meals and activity daily as able. Follow-up in 3 months or sooner with concerns. documented in this encounter Ordered Prescriptions Prescription Sig Dispensed Refills Start Date End Da te insulin aspart U-100 (NOVOLOG FLEXPEN U-100 INSULIN) 100 unit/mL (3 mL) injectable pen TDD 40, TID w/ meals based on sliding scale 36 mL 3 10/23/2022 12/04/2022 insulin glargine (LANTUS SOLOSTAR U-100 INSULIN) 100 unit/mL (3 mL) injection pen Inject 10 Units into the skin once daily AND 14 Units at bedtime. Inject 17 Units into in am AND 18 Units at bedtime. (incrased dose). 22 mL 2 10/23/2022 01/29/2023 documented in this encounter Progress Notes * Shari Hsu RN - 10/23/2022 1130 EDT Pt messaged to do labs Lab Results Component Value Date UABCR 650 (H) 06/18/2022 HGBA1C 8.6 (A) 03/04/2022 Glucose-112 !! * Lisa Yan NP - 10/23/2022 1130 EDT Reason for Visit: DM f/up PCP: BERNIE Pearson OTHER PROVIDERS: PLATE STACKER HAND [facility] Dr. Haider, cardiology [facility], [facility] Zenia Worley is a 32 y.o. female who presented to the clinic for a follow-up in [facility], with a history of DM since 2004. Hx of HLD, [place] on cpap, PTSD, schizoaffective disorder, anemia, hypothyroid,hypoglycemia comas. Does not currently work. Lives on her own. Is working with [employer] on finding work. Sister lives in [place]. Parents have . 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 Trip planned to [place] for [employer]. Has been down to [facility] with vaginal bleeding. Had surgery to minimize the bleeding, had transfusionswhile there. 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 States minimal hypotension symptoms since this, some orthostatic hypotension when going from laying/sitting. Has f/up with bariatric clinic upcoming to see how doing without an antidepressant. Weight has [place] without these and continues to feel stable with mood. Keeping busy during the day to help this. Random BG in clinic 112. Had bfast 2.5 hrs ago, did not give novolog with this as BG stable this morning and no carb bfast. Does take novolog before eating. Has been back to using whitley after a week off and using glucometer, did not bring glucometer. Started the jardiance and tolerating this well. Has lost 16# since our last visit. TSH 1.42 (09/2022) Levothyroxine 200 mcg [facility] DM: dad, brother Recent A1C: 5.8 (10/2022) 7.6 (05/2022) 8.6 (02/2022) 6.2 (10/2021) 8.4 (08/2021) >14 (05/2021) Diabetic Medications: jardiance 10 mg ozempic 2 mg weekly Metformin XR 1000 mg twice daily lantus 13 u AM and 15 u PM novolog SS: avg 7-10 units Meals based regimen Current monitoring regimen: [...] Eye exam current (within one year): MDD, [facility] Last dental exam: overdue CVD,PVD,CAD: HLD, HTN Statin: simvastatin 40 mg, LDL 92 (06/2022) Aspirin: no ACEI/ARB: losartan 25 mg Prior visit with ceramics technician: CORNELIO Aguayo Foot care: self Comorbidities: Retinopathy: [...] INTERPRETATION Type of CGM: personal whitley 2 10/05-10/18/2022 Type of DM: II Diabetic Medications: lantus Metformin novolog ozempic jardiance Indication for monitoring: Hyper/hypoglycemia, insulin dosing Report Interpretation: Average glucose 139 mg/dL, standard deviation 30.4 TIR 80%, TAR 17%, TBR 3% Nocturnal glucose control: Yes Post-prandial glucose excursions: minimal, some w/ bfast Hypoglycemia incidence: Yes all throughout the day Other (exercise/activity): Hemoglobin A1c, POC Date Value Ref Range Status 10/23/2022 5.8 (A) 5.7 % Final Lab Results Component Value Date UABCR 650 (H) 06/18/2022 No results found for: NA, K, CL, CO2, BUN, CSFGLU, CREATINE, GLU, CA, GFR Zenia Worley is a 32 y.o. female who presented to the clinic for a follow-up in [facility], with a history of DM since 2004. Problem List Items Addressed This Visit Endocrine/Metabolic Type 2 diabetes mellitus with hyperglycemia, with long-term current use of insulin ([facility]) ([facility]) - Primary Controlled A1C 5.8 Congratulated on successful changes!! Lower lantus 10 units AM and 14 units PM Lower novolog sliding scale by 3 units across the day! Continue to take the novolog BEFORE eating 5-15 minutes as best able. Continue with jardiance 10 mg, ozempic 2 mg weekly injection and Metformin XR 1000 mg twice daily with food. Continue with whitley 2 CGM, swipe fasting, before meals and bedtime. Upgrade to whitley 3 when due for refill. Keep up with daily hydration, balanced meals and activity daily as able. Follow-up in 3 months or sooner with concerns. Discussed wanting to eliminate lows and then the opportunity to increase SGLT/GLP. Relevant Medications insulin glargine (LANTUS SOLOSTAR U-100 INSULIN) 100 unit/mL (3 mL) injection pen insulin aspart U-100 (NOVOLOG FLEXPEN U-100 INSULIN) 100 unit/mL (3 mL) injectable pen Other Relevant Orders LIPID PROFILE (INCLUDES CHOLESTEROL, TRIGLYCERIDES, HDL, LDL) COMPREHENSIVE METABOLIC PANEL (CMP) HEMOGLOBIN A1C POCT HEMOGLOBIN A1C (Completed) POCT GLUCOSE, MANUAL ENTRY (Completed) Other specified hypothyroidism BMI 60.0-69.9, adult ([facility]) Long-term insulin use (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 Essential hypertension, benign BP stable. Patient Goals: A1C <7% Exercise: 150-300 minutes [...] Plan Note - Lisa Yan NP - 10/23/2022 1153 EDT Associated Problem(s): Type 2 diabetes mellitus with hyperglycemia, with long- term current use of insulin ([facility]) Controlled A1C 5.8 Congratulated on successful changes!! Lower lantus 10 units AM and 14 units PM Lower novolog sliding scale by 3 units across the day! Continue to take the novolog BEFORE eating 5-15 minutes as best able. Continue with jardiance 10 mg, ozempic 2 mg weekly injection and Metformin XR 1000 mg twice daily with food. Continue with whitley 2 CGM, swipe fasting, before meals and bedtime. Upgrade to whitley 3 when due for refill. Keep up with daily hydration, balanced meals and activity daily as able. Follow-up in 3 months or sooner with concerns. Discussed wanting to eliminate lows and then the opportunity to increase SGLT/GLP. * Assessment & Plan Note - Lisa Yan NP - 10/23/2022 1144 EDT Associated Problem(s): Mixed hyperlipidemia LDL at goal. * Assessment & Plan Note - Lisa Yan NP - 10/23/2022 1144 EDT Associated Problem(s): Essential hypertension, benign BP stable. documented in this encounter Plan of Treatment Upcoming Encounters Date Type Department Care Team (Late st Contact Info) Description 01/28/2024 10:30 EDT Office Visit [facility] Endocrinology [address], [place] [id number] Lisa Yan NP 130 [facility] [address] [place] [address] documented as of this encounter Procedures Procedure Name Priority Date/Time Associated Diagnosis Comments POCT GLUCOSE, MANUAL ENTRY Routine 10/23/2022 Type 2 diabetes mellitus with hyperglycemia, with long-term current use of insulin ([facility]) POCT HEMOGLOBIN A1C Routine 10/23/2022 Type 2 diabetes mellitus with hyperglycemia, with long-term current use of insulin ([facility]) documented in this encounter Results * (ABNORMAL) HEMOGLOBIN A1C (08/13/2023 9:58 EDT) Hemoglobin A1c 8.0(H) <5.7 % 08/13/2023 13:12 T [facility] Comment: Glycemic Status References: Normal: ??<5.7% Pre-Diabetes: ??5.7% - 6.4% Diagnostic of Diabetes: ??> or = 6.5% (if confirmed) Est Avg Glucose 183 mg/dL 13:12 EDT [facility] Comment:The eAG represents t he A1c result expressed as average glucose in mg/dL. Blood VENOUS BLOOD / Unknown Venipuncture / Unknown 08/13/2023 9:58 EDT 08/13/2023 10:26 EDT Lisa Yan NP CHEMISTRY & BLOOD GAS ORDERABLES [facility] [address] [place] [address] * (ABNORMAL) COMPREHENSIVE METABOLIC PANEL (CMP) (08/13/2023 9:58 EDT) Sodium 139 136 - 145 mmol/L 08/13/2023 11:11 [facility] Potassium 4.1 3.5 - 5.0 mmol/L 08/13/2023 11:11 [facility] Chloride 107 96 - 110 mmol/L 08/13/2023 11:11 [facility] CO2 Total 29 22 - 32 mmol/L 08/13/2023 11:11 [facility] Glucose 76 70 - 99 mg/dl 08/13/2023 11:11 [facility] BUN 10 10 - 26 mg/dL 08/13/2023 11:11 [facility] Creatinine 0.84 0.52 - 1.04 mg/dL 08/13/2023 11:11 [facility] eGFR 95 >60 mL/min/1.7 3m2 08/13/2023 11:11 [facility] Total Protein 8.0 6.3 - 8.2 g/dL 08/13/2023 11:11 [facility] Albumin 4.3 3.4 - 4.9 g/dL 08/13/2023 11:11 [facility] Alkaline Phosphatase 70 38 - 126 U/L 08/13/2023 11:11 [facility] AST 21 15 - 46 U/L 08/13/2023 11:11 [facility] ALT 27 <35 U/L 08/13/2023 11:11 [facility] Bilirubin, Total 0.6 <1.4 mg/dL 08/13/19 11:11 [facility] Calcium 9.9 8.5 - 10.5 mg/dL 08/13/2023 11:11 [facility] Albumin/Globulin Ratio 1.2 1.0 - 2.5 08/13/2023 11:11 EDT [facility] Anion Gap 3(L) 5 - 14 mmol/L 08/13/2023 11:11 EDT [facility] Blood VENOUS BLOOD / Unknown Venipuncture / Unknown 08/13/2023 9:58 EDT 08/13/2023 10:24 EDT Lisa Yan NP CHEMISTRY & BLOOD GAS ORDERABLES [facility] [address] [place] [address] * (ABNORMAL) LIPID PROFILE (INCLUDES CHOLESTEROL, TRIGLYCERIDES, HDL, LDL) (08/13/2023 9:58 EDT) Cholesterol 175 <200 mg/dL 08/13/2023 11:11 EDT [facility] Comment:Note that therapeuti c goals will differ between patients based on cardiac risk factors and current medical therapy. HDL 43(L) >=50 mg/dl 08/13/2023 11:11 T [facility] Comment:Note that therapeuti c goals will differ between patients based on cardiac risk factors and current medical therapy. LDL, Calculated 114 <160 mg/dL 11:11 [facility] Comment:Note that therapeuti c goals will differ between patients based on cardiac risk factors and current medical therapy. Triglyceride 90 <=150 mg/dL 08/13/2023 11:11 T [facility] Comment:Note that therapeuti c goals will differ between patients based on cardiac risk factors and current medical therapy. Chol/HDL Ratio 4.1 See Note 08/13/2023 11:11 [facility] Comment: NOTE: Desirable Ratio = <4.1 Patient At Risk Ratio = >5.0(Males) ?>6.0(Females) Non HDL Cholesterol 132 <160 mg/dL 08/13/2023 11:11 T [facility] Comment:Note that therapeuti c goals will differ between patients based on cardiac risk factors and current medical therapy. Blood VENOUS BLOOD / Unknown Venipuncture / Unknown 08/13/2023 9:58 EDT 08/13/2023 10:24 EDT Lisa Yan NP CHEMISTRY & BLOOD GAS ORDERABLES [facility] [address] [place] [address] * (ABNORMAL) POCT GLUCOSE, MANUAL ENTRY (10/23/2022) Glucose, POC 112(A) 70 - 100 mg/dL [facility] POINT OF CARE HN LAB POC COMMENT MANUAL (GLUCOSE) [facility] POINT OF transportation engineer ID [facility] POIN T OF CARE Blood CAPILLARY BLOOD / Unknown 10/23/2022 Lisa Yan NP POINT OF CARE SARAY T ORDERABLES Performing Organization Address City/[facility] [employer] de Phone Number [facility] POINT OF CARE * (ABNORMAL) POCT HEMOGLOBIN A1C (10/23/2022) Hemoglobin A1c, POC 5.8(A) 5.7 % [facility] POINT OF CARE Blood CAPILLARY BLOOD / Unknown 10/23/2022 Lisa Yan NP POINT OF CARE SARAY T ORDERABLES Performing Organization Address City/[facility] de Phone Number [facility] POINT OF CARE documented in this encounter Visit Diagnoses Diagnosis Type 2 diabetes mellitus with hyperglycemia, with long-term current use of insulin ([facility])- Primary nursing home 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 BMI 60.0-69.9, adult ([facility]) Body Mass Index 60.0-69.9, adult Long-term insulin use ([facility]) Encounter for long-term (current) use of insulin Other specified hypothyroidism Essential hypertension, benign Mixed hyperlipidemia documented in this encounter Discontinued Medications Medication Sig Discontinue Reason Start Date End Da te ARIPiprazole (ABILIFY) 15 mg tablet Take 15 mg by mouth daily. 12/26/2021 10/23/2022 ziprasidone (GEODON) 60 mg capsuleIndications:takim ng bid 12/30/2021 10/23/2022 insulin glargine (LANTUS SOLOSTAR U-100 INSULIN) 100 unit/mL (3 mL) injection pen Inject 15 Units into the skin once daily AND 16 Units at bedtime. Inject 17 Units into in am AND 18 Units at bedtime. (incrased dose). 07/03/2022 10/23/2022 insulin aspart U-100 (NOVOLOG FLEXPEN U-100 INSULIN) 100 unit/mL (3 mL) injectable pen TDD 150, TID w/ meals based on sliding scale 06/18/2022 10/23/2022 QUEtiapine (SEROQUEL) 50 mg tablet prn 12/28/2021 10/23/2022 QUEtiapine (SEROQUEL) 400 mg tablet Take 400 mg by mouth. 02/17/2022 10/23/2022 QUEtiapine (SEROQUEL) 100 mg tablet TAKE ONE TABLET BY MOUTH EVERY DAY NEEDED 09/21/2021 10/23/2022 QUEtiapine (SEROQUEL) 200 mg tablet Take 200 mg by mouth at bedtime. 12/09/2021 10/23/2022 QUEtiapine (SEROQUEL) 300 mg tablet Take 200 mg by mouth at bedtime. 09/21/2021 10/23/2022 documented as of this encounter Historical Medications * This list may reflect changes made after this encounter. Medication Sig Dispensed Refills Start Date End Date ONETOUCH DELICA PLUS LANCET 33 gauge misc 09/06/2022 ARIPiprazole (ABILIFY) 20 mg tablet TAKE 1 TABLET BY MOUTH ONCE DAILY FOR SCHIZOAFFECTIVE DISORDER BIPOLAR TYPE 10/15/2022 chlorproMAZINE (THORAZINE) 100 mg tablet Take 3 Tablets by mouth daily. 10/22/2022 Cholecalciferol, Vitamin D3, 50 mcg capsule Take by mouth daily. 09/14/2022 024 doxepin (SILENOR) 6 mg tablet Take 1 Tablet by mouth at bedtime as needed. 08/18/2022 10/29/2023 ergocalciferol (DRISDOL; VITAMIN D2) 1,250 mcg (50,000 unit) capsule TAKE ONE CAPSULE BY MOUTH ONCE WEEKLY FOR 12 DOSES AFTER COMPLETION OF THIS DOSE; BEGIN LOWER DOSES OF VITMIN DAILY (USUSALLY [id number] UNIT 07/17/2022 08/13/2023 chlorproMAZINE (THORAZINE) 200 mg tablet TAKE 1 TABLET BY MOUTH AT BEDTIME FOR SCHIZOAFFECTIVE DISORDER 10/14/2022 023 added in this encounter Care Teams Business Specialist Relationship Specialty Start Date End Date Lia Pearson APRN [address] [place] [id number] PCP - General [facility] Medicine 09/26/21 Lisa Yan GRAIN CLEANER AND TRANSFER OPERATOR [address] [place] [phone] Nurse Practitioner Endocrinology, Diabetes and Metabolism 03/19/21 Lisa Yan NP [address] [place] [phone] Nurse Practitioner Endocrinology, Diabetes and Metabolism 06/06/21 documented as of this encounter
--- OUTSIDE RECORDS SUMMARY | 2023-11-26 19:34 | XMS_ITS | Encounter Summary ---
Author Organization [facility] Address [address] [place] [address] Care Team Providers Care Studio Operations Manager Name Role Phone Lisa Yan ARCADE GAME TECHNICIAN Unavailable [phone] Lisa Yan ARCADE GAME TECHNICIAN Unavailable [phone] Lia Pearson APRN Primary Care Provider [phone] Reason for Visit * Reason Onset Date Comments Blood Sugar Problem 12/23/2021 Encounter Details Date Type Department Care Team (Late st Contact Info) Description 12/23/2021 Telephone [facility] Endocrinology [address] [place] [address] Shari Hsu RN Blood Sugar Problem Social [...] mL into the skin every 7 days. Increased dose- to take 1 mg once weekly 9 mL 3 12/23/2021 01/07/2022 insulin glargine (LANTUS SOLOSTAR U-100 INSULIN) 100 unit/mL (3 mL) injection pen Inject 14 Units into the skin 2 times daily. Inject 12 Units into the skin once daily AND 13 Units at bedtime. 30 mL 3 12/23/2021 02/06/2022 insulin aspart U-100 (NOVOLOG FLEXPEN U-100 INSULIN) 100 unit/mL (3 mL) injectable pen Take 9 units with each meal 30 mL 3 12/23/2021 12/24/2021 documented in this encounter Miscellaneous Notes * Telephone Encounter - Shari Hus RN - 12/23/2021 1428 EDT Pt messaged Updated rx's sent * Telephone Encounter - Vivienne Sampson MD - 12/23/2021 1408 EDT Shari Couple of options 1) We can try to increase ozempic to 1 mg SC weekly and to increase Novolog to 9 units before mealsand tell her to increase Lantus to 14 units Call us back on morning with an update. Electronically signed by Vivienne Smith MD * Telephone Encounter - Shari Hsu RN - 12/23/2021 1327 EDT Called back today states bg's consistently trudi for last 3 weeks - before all meals she's in [id number]'s takes 6 units of novolog and after meals she's in high 300's She's been taking 6 units with all meals and lantus as med list states No diet changes, nis drinking lots of fluids And exercising What to do with insulin ? documented in this encounter Plan of Treatment Upcoming Encounters Date Type Department Care Team (Late st Contact Info) Description 01/28/2024 10:30 EDT Office Visit [facility] Endocrinology [address] [place], [place] [phone] Lisa Yan NP [address] [phone] documented as of this encounter Visit Diagnoses Not on filedocumented in this encounter Discontinued Medications Medication Sig Discontinue Reason Start Date End Da te semaglutide (OZEMPIC) subcutaneous pen Inject 0.5 mg into the skin every 7 days. 11/12/2021 12/23/2021 insulin glargine (LANTUS SOLOSTAR U-100 INSULIN) 100 unit/mL (3 mL) injection pen Inject 12 Units into the skin once daily AND 13 Units at bedtime. Reorder 11/12/2021 12/23/2021 insulin aspart U-100 (NOVOLOG FLEXPEN U-100 INSULIN) 100 unit/mL (3 mL) injectable pen TDD 6 units. Sliding scale with meals: 200-300 1 units 300-400 2 units. Reorder 11/12/2021 12/23/2021 documented as of this encounter Care Teams Studio Operations Manager Relationship Specialty Start Date End Date Lia Pearson APRN [address] [place] [id number] PCP - General Family Medicine - Hospital Medicine 09/26/21 Lisa Yan NP [address] [place] [phone] Nurse Practitioner Endocrinology, Diabetes and Metabolism 03/19/21 Lisa Yan NP [address] [place] [phone] Nurse Practitioner Endocrinology, Diabetes and Metabolism 06/06/21 documented as of this encounter
--- OUTSIDE RECORDS SUMMARY | 2023-11-26 19:35 | XMS_ITS | Encounter Summary ---
Author Organization [facility] Address [address] [place] [address] Care Team Providers Care Body And Frame Technician Name Role Phone BayMaria R GRILL ASSOCIATE Primary Care Provider [phone] Lisa Yan SHAPER SETTER Unavailable [phone] Lisa Yan SHAPER SETTER Unavailable [phone] Reason for Visit * Reason Onset Date Comments Medications Refill 06/24/2021 Encounter Details Date Type Department Care Team (Late st Contact Info) Description 06/24/2021 Refill [facility] [place] [address] [place] [address] Shari Hsu RN Medications Refill Social History Tobacco Use Types Packs/Day Years Used Date Smoking Tobacco: Every Day Smokeless Tobacco: Never Comments:quit in march Alcohol [...] units 251-300 11 units 301-350 12 units 45 mL 3 06/24/2021 09/26/2021 documented in this encounter Miscellaneous Notes * Telephone Encounter - Shari Hsu RN - 06/24/2021 1100 EST Called pharmacy, she can pick it up tomorrow- tried to call pt to see what she's using and unable to maintiain phone contact Spoke to pt has enough until tomorrow- can pick it up then * Telephone Encounter - Shari Hsu RN - 06/24/2021 1036 EST Left message - out of novoolofg documented in this encounter Plan of Treatment Upcoming Encounters Date Type Department Care Team (Late st Contact Info) Description 01/28/2024 10:30 EDT Office Visit [facility] Endocrinology [address] [place], [place] [phone] Lisa Yan SHAPER SETTER 130 [facility] [address] [place] [phone] documented as of this encounter Visit Diagnoses Not on filedocumented in this encounter Discontinued Medications Medication Sig Discontinue Reason Start Date End Da te NOVOLOG FLEXPEN U-100 INSULIN 100 unit/mL (3 mL) injectable pen TDD 36 three times daily with meals: 80-100 3 units 101-150 5 units 151-200 7 units 201-250 9 units 251-300 11 units 301-350 12 units Reorder 06/09/2021 06/24/2021 documented as of this encounter Care Teams Body And Frame Technician Relationship Specialty Start Date End Date Maria R Hermosillo FNP [address] [address] PCP - General Family Medicine - Primary Care 12/03/20 09/25/21 Lisa Yan NP [address] [place] [phone] Nurse Practitioner Endocrinology, Diabetes and Metabolism 03/19/21 Lisa Yan NP [address] [place] [phone] Nurse Practitioner Endocrinology, Diabetes and Metabolism 06/06/21 documented as of this encounter
--- OUTSIDE RECORDS SUMMARY | 2023-11-26 19:35 | XMS_ITS | Encounter Summary ---
Author Organization [facility] Address [address] [place] [address] Care Team Providers Care Supervisor Lump Room Name Role Phone Maria R Hermosillo ROLLER DIE CUTTING MACHINE OPERATOR Primary Care Provider [phone] Lisa Yan PRODUCT OWNER Unavailable [phone] Lisa Yan PRODUCT OWNER Unavailable [phone] Reason for Visit * Reason Onset Date Comments Medications Refill 06/09/2021 Encounter Details Date Type Department Care Team (Late st Contact Info) Description 06/09/2021 Refill [facility] [place] [address] [place] [id number] Sheryl More RN Medications Refill Social History [...] Refills Start Date End Da te insulin pen needles 32G x 5/32 (PEN NEEDLE) 1 pen needle by misc (non-drug; combo route) route 5 times daily. 500 Each 2 06/09/2021 simvastatin (ZOCOR) 40 mg tablet Take 1 Tablet by mouth daily. 90 Tablet 2 06/09/2021 07/18/2021 NOVOLOG FLEXPEN U-100 INSULIN 100 unit/mL (3 mL) injectable pen TDD 36 three times daily with meals: 80-100 3 units 101-150 5 units 151-200 7 units 201-250 9 units 251-300 11 units 301-350 12 units 33 mL 3 06/09/2021 06/24/2021 metFORMIN (GLUCOPHAGE-XR) 500 mg ER tablet Take 1 Tablet by mouth daily. 90 Tablet 2 06/09/2021 07/21/2021 levothyroxine (SYNTHROID) 200 mcg tablet Take 1 Tablet by mouth daily. 90 Tablet 2 06/09/2021 01/12/2022 insulin glargine (LANTUS SOLOSTAR U-100 INSULIN) 100 unit/mL (3 mL) injection pen Inject 25 Units into the skin 2 times daily. 45 mL 2 06/09/2021 09/26/2021 documented in this encounter Miscellaneous Notes * Telephone Encounter - Sheryl More RN - 06/09/2021 1316 EST Resent to [facility] documented in this encounter Plan of Treatment Upcoming Encounters Date Type Department Care Team (Arlen st Contact Info) Description 01/28/2024 10:30 EDT Office Visit [facility] Endocrinology [address] [place], [place] [address] Lisa Yan NP [address] [facility] [address] [place] [phone] documented as of this encounter Visit Diagnoses Not on filedocumented in this encounter Discontinued Medications Medication Sig Discontinue Reason Start Date End Da te insulin glargine (LANTUS SOLOSTAR U-100 INSULIN) 100 unit/mL (3 mL) injection pen Inject 25 Units into the skin 2 times daily. Reorder 06/09/2021 06/09/2021 insulin pen needles 32G x 5/32 (PEN NEEDLE) 1 pen needle by misc (non-drug; combo route) route 5 times daily. Reorder 06/09/2021 06/09/2021 levothyroxine (SYNTHROID) 200 mcg tablet Take 1 Tablet by mouth daily. Reorder 06/09/2021 06/09/2021 metFORMIN (GLUCOPHAGE-XR) 500 mg ER tablet Take 1 Tablet by mouth daily. Reorder 06/09/2021 06/09/2021 NOVOLOG FLEXPEN U-100 INSULIN 100 unit/mL (3 mL) injectable pen TDD 36 three times daily with meals: 80-100 3 units 101-150 5 units 151-200 7 units 201-250 9 units 251-300 11 units 301-350 12 units Reorder 06/09/2021 06/09/2021 simvastatin (ZOCOR) 40 mg tablet Take 1 Tablet by mouth daily. Reorder 06/09/2021 06/09/2021 documented as of this encounter Care Teams Supervisor Lump Room Relationship Specialty Start Date End Date Maria R Hermosillo FNP [address] [address] PCP - General Family Medicine - Primary Care 12/03/20 09/25/21 Lisa Yan NP [address] [place] [phone] Nurse Practitioner Endocrinology, Diabetes and Metabolism 03/19/21 Lisa Yan NP [address] [place] [phone] Nurse Practitioner Endocrinology, Diabetes and Metabolism 06/06/21 documented as of this encounter
--- OUTSIDE RECORDS SUMMARY | 2023-11-26 19:35 | XMS_ITS | Encounter Summary ---
Author Organization [facility] Address [address] [place] [address] Care Team Providers Care Logistics And Planning Manager Name Role Phone Maria R Hermosillo WORKFORCE MANAGEMENT MANAGER Primary Care Provider [phone] Lisa Yan PUBLIC HEALTH DENTIST Unavailable [phone] Lisa Yan PUBLIC HEALTH DENTIST Unavailable Reason for Visit * Reason Comments Diabetes joined visit Encounter Details Date Type Department Care Team (Late st Contact Info) Description 07/18/2021 15:15 EST Nurse Only [facility] [place] Endocrinology [address] [place] [address] Dina Baldwin, RN [address] [place] [address] Type 2 diabetes mellitus with hyperglycemia, with long-term current use of insulin ([facility]) ([facility]) (Primary Dx) Social History Tobacco Use Types [...] Progress Notes * Dina Baldwin, RN - 07/18/2021 1515 EST This is a joined visit with Lisa Yan Please see my info in her visit note. documented in this encounter Plan of Treatment Upcoming Encounters Date Type Department Care Team (Late st Contact Info) Description 01/28/2024 10:30 EDT Office Visit [facility] Endocrinology [address] [place], [place] [phone] Lisa Yan NP [address] [place] [phone] documented as of this encounter Visit Diagnoses Diagnosis Type 2 diabetes mellitus with hyperglycemia, with long-term current use of insulin ([facility])- Primary documented in this encounter Care Teams Logistics And Planning Manager Relationship Specialty Start Date End Date Maria R Hermosillo FNP [facility] MEDICINE [address] [address] PCP - General Family Medicine - Primary Care 12/03/20 09/25/21 Lisa Yan NP [address] [place] [phone] Nurse Practitioner Endocrinology, Diabetes and Metabolism 03/19/21 Lisa Yan NP [address] [place] [phone] Nurse Practitioner Endocrinology, Diabetes and Metabolism 06/06/21 documented as of this encounter
--- OUTSIDE RECORDS SUMMARY | 2023-11-26 19:35 | XMS_ITS | Encounter Summary ---
Author Organization [facility] Address [address] [place] [address] Care Team Providers Care Handle Sander Operator Name Role Phone BayMaria R mcfadden PRESSURE TESTER Primary Care Provider [phone] Lisa Yan VE TEACHER Unavailable Lisa Yan VE TEACHER Unavailable [phone] Reason for Visit * Reason Onset Date Comments Diabetes 06/13/2021 Encounter Details Date Type Department Care Team (Late st Contact Info) Description 06/13/2021 Telephone [facility] Endocrinology [address] [place] [address] Shari Hsu RN Diabetes Social History Tobacco [...] Notes * Telephone Encounter - Lisa Yan, UNDERGROUND REPAIRER - 06/13/2021 1410 EST All set. * Telephone Encounter - Shari Hsu RN - 06/13/2021 1352 EST Please addend last note to make medicare happy- your note states novolog 5 units with meals but she's actually on a sliding scale. Request in your box documented in this encounter Plan of Treatment Upcoming Encounters Date Type Department Care Team (Late st Contact Info) Description 01/28/2024 10:30 EDT Office Visit [facility] Endocrinology [address] [place] [address] Lisa Yan VE TEACHER [address] [phone] documented as of this encounter Visit Diagnoses Not on filedocumented in this encounter Care Teams Handle Sander Operator Relationship Specialty Start Date End Date Maria R Hermosillo FNP [address] [address] PCP - General Family Medicine - Primary Care 12/03/20 09/25/21 Lisa Yan NP [address] [place] [phone] Nurse Practitioner Endocrinology, Diabetes and Metabolism 03/19/21 Lisa Yan NP [address] [place] [phone] Nurse Practitioner Endocrinology, Diabetes and Metabolism 06/06/21 documented as of this encounter
--- OUTSIDE RECORDS SUMMARY | 2023-11-26 19:35 | XMS_ITS | Encounter Summary ---
Author Organization [facility] Address [address] [place] [address] Care Team Providers Care Project Reservoir Engineer Name Role Phone Bay, Maria R Perez WRAPPING MACHINE HELPER Primary Care Provider [phone] Lisa Yan CNC CUTTING OPERATOR Unavailable Lisa Yan CNC CUTTING OPERATOR Unavailable Lia Pearson APRN Primary Care Provider [phone] Reason for Visit * Reason Onset Date Comments Appointment Related 10/31/2020 Encounter Details Date Type Department Care Team (Late st Contact Info) Description 10/31/2020 Telephone [facility] Interventional Pain [address] [facility] [place] [address] Justice Castillo MD [address] [facility] [address] [place] [phone] Appointment Related Social History Tobacco Use Types Packs/Day Years Used Date Smoking Tobacco: Never Assessed Interpersonal Safety Answer Date Record ed Physically Hurt Never 07/31/2020 Verbally Threaten Not on file 07/31/2020 Sex and Gender Information Value Date Recorded Sex Assigned at Female 12/31/2021 11:23 EDT Gender Identity Female 09/11/2021 16:08 EDT Sexual Orientation Asexual 12/31/2021 11 :23 EDT documented as of this encounter Miscellaneous Notes * Telephone Encounter - Yara Ortiz - 12/05/2020 1237 EDT Called patient to let her know that we needed to cancel her appointment as the referral we receivedin July appeared to be for [facility] and not us. Patient also stated she had not done anyform of conservative treatment in the last 6 months and I let her know that was a requirement of our clinic. Patient understood. * Telephone Encounter - Laverne Mahajan - 10/31/2020 1520 EDT Patient called to schedule their appointment based off a referral we received. Patient is scheduledfor 12/[address] Castillo. COVID-19 process/screening has been confirmed by the patient. documented in this encounter Plan of Treatment Upcoming Encounters Date Type Department Care Team (Late st Contact Info) Description 01/28/2024 10:30 EDT Office Visit [facility] Endocrinology [address] [place] [address] Lisa Yan, CNC CUTTING OPERATOR 130 [facility] [address] [place] [phone] documented as of this encounter Visit Diagnoses Not on filedocumented in this encounter Additional Health Concerns Infection Onset Date Last Indicated Resolved Time COVID-19 12/25/2021 12/25/2021 01/14/2022 22:1 5 EDT documented as of this encounter Care Teams Project Reservoir Engineer Relationship Specialty Start Date End Date Maria R Hermosillo FNP [facility] MEDICINE [address] [phone] PCP - General Family Medicine - Primary Care 12/03/20 09/25/21 Lia Pearson APRN [address] [place] [phone] PCP - General Family Medicine - [facility] Medicine 09/26/21 Lisa Yan NP [address] [place] [phone] Nurse Practitioner Endocrinology, Diabetes and Metabolism 03/19/21 Lisa Yan NP [address] [place] [phone] Nurse Practitioner Endocrinology, Diabetes and Metabolism 06/06/21 documented as of this encounter
--- OUTSIDE RECORDS SUMMARY | 2023-11-26 19:35 | XMS_ITS | Encounter Summary ---
Author Organization [facility] Address [address] [place] [address] Care Team Providers Care Certified Nursing Attendant Name Role Phone Maria R Hermosillo [facility] Primary Care Provider [phone] Encounter Details Date Type Department Care Team (Late st Contact Info) Description 02/26/[address] [facility] Endocrinology [address] [place], [place] [phone] Shari Hsu RN Social History Tobacco Use [...] 01/28/2024 10:[address] [facility] Endocrinology [address] [place], [place] [address] Lisa Yan, BERNIE [address] [facility] [address] [place] [phone] documented as of this encounter Visit Diagnoses Not on filedocumented in this encounter Historical Medications * This list may reflect changes made after this encounter. Medication Sig Dispensed Refills Start Date End Date polyethylene glycol (MIRALAX) 17 gram/dose powder Take 17 g by mouth daily. prn oxygen-air delivery systems (HORIZON NASAL CPAP SYSTEM MISC) by misc (non-drug; combo route) route. QUEtiapine (SEROQUEL) 400 mg tablet Take 400 mg by mouth 2 times daily. 300mg at bedtime, 100mg in day as needed 09/26/2021 gabapentin (NEURONTIN) 300 mg capsule Take 300 mg by mouth 3 times daily. 06/11/2021 zolpidem (AMBIEN) 10 mg tablet Take 10 mg by mouth daily. 06/06/2021 lurasidone (LATUDA) 80 mg tablet Take 80 mg by mouth daily. 06/06/2021 insulin pen needles 32G x 532 (PEN NEEDLE) 2 pen needles by misc (non-drug; combo route) route daily. 06/06/2021 insulin glargine,hum.rec.anlog (LANTUS SOLOSTAR U-100 INSULIN SUBQ) Inject 25 Units into the skin 2 times daily. 06/06/2021 glipiZIDE (GLUCOTROL) 5 mg tablet Take 5 mg by mouth daily. 06/06/2021 simvastatin (ZOCOR) 40 mg tablet Take 40 mg by mouth daily. 06/06/2021 ferrous sulfate (FEROSUL) 325 mg (65 mg iron) tablet Take 325 mg by mouth daily. 03/19/2021 levothyroxine (SYNTHROID) 200 mcg tablet Take 200 mcg by mouth daily. 06/06/2021 divalproex ER (DEPAKOTE ER) 500 mg tablet Take 500 mg by mouth daily. 06/06/2021 added in this encounter Care Teams Certified Nursing Attendant Relationship Specialty Start Date End Date [place] [address] PCP - General Family Medicine - Primary Care 12/03/20 09/25/21 documented as of this encounter
--- OUTSIDE RECORDS SUMMARY | 2023-11-26 19:35 | XMS_ITS | Encounter Summary ---
Author Organization [facility] Address [address] [place] [address] Care Team Providers Care Nutter Up Name Role Phone Maria R Hermosillo ADMINISTRATIVE OFFICER Primary Care Provider [phone] Lisa Yan INSPECTOR RADAR AND ELECTRONICS Unavailable [phone] Lisa Yan INSPECTOR RADAR AND ELECTRONICS Unavailable [phone] Reason for Visit * Reason Onset Date Comments Medications Refill 06/11/2021 Encounter Details Date Type Department Care Team (Late st Contact Info) Description 06/11/2021 Refill [facility] [place] [address] [place] [phone] Sheryl More RN Medications Refill Social History [...] daily. E11.9 270 capsule 1 06/11/2021 11/18/2021 documented in this encounter Miscellaneous Notes * Telephone Encounter - Sheryl More RN - 06/11/2021 1029 EST Prescription sent to Alicia Govea in [facility] per Lisa Yan's orders. documented in this encounter Plan of Treatment Upcoming Encounters Date Type Department Care Team (Late st Contact Info) Description 01/28/2024 10:30 EDT Office Visit [facility] Endocrinology [address] [place], [place] [address] Lisa Yan NP [address] [place] [phone] documented as of this encounter Visit Diagnoses Not on filedocumented in this encounter Discontinued Medications Medication Sig Discontinue Reason Start Date End Da te gabapentin (NEURONTIN) 300 mg capsule Take 300 mg by mouth 3 times daily. Reorder 06/11/2021 documented as of this encounter Care Teams Nutter Up Relationship Specialty Start Date End Date Maria R Hermosillo FNP [address] [address] PCP - General Family Medicine - Primary Care 12/03/20 09/25/21 Lisa Yan NP [address] [place] [phone] Nurse Practitioner Endocrinology, Diabetes and Metabolism 03/19/21 Lisa Yan NP [address] [place] [phone] Nurse Practitioner Endocrinology, Diabetes and Metabolism 06/06/21 documented as of this encounter
--- OUTSIDE RECORDS SUMMARY | 2023-11-26 19:35 | XMS_ITS | Encounter Summary ---
Author Organization [facility] Address [address] [place] [address] Care Team Providers Care Transmitter Tester Name Role Phone Maria R Hermosillo WAREHOUSE SHIFT SUPERVISOR Primary Care Provider [phone] Lisa Yan DERRICK ENGINEER Unavailable Lisa Yan DERRICK ENGINEER Unavailable [phone] Reason for Visit * Reason Comments Diabetes DFC; preventative Encounter Details Date Type Department Care Team (Late st Contact Info) Description 06/06/2021 15:30 EST Nurse Only [facility] Endocrinology [address] [place] [address] Dina Baldwin, RN [address] [place] [address] Hyperkeratosis of sole (Primary Dx); Type 2 diabetes mellitus with hyperglycemia, without long-term current use of insulin ([facility]) ([facility]) Social History Tobacco Use Types Packs/Day Years [...] Progress Notes * Dina Baldwin RN - 06/06/2021 1600 EST Seeing Lisa Yan after foot care Reason for Appointment 1. DM visit 30 minutes; dfc/preventative Referred by: Lisa Yan Provider on site: Lisa Yan Last dfc visit: 1st visit here today Last endocrine visit: today Assessments Here for routine foot care. No complaints. Pt unable to provide self care r/t neuropathy and diabetes. Vascular: Pulses: DP and PT: present x4 Color: nl. Varicosities:none Edema: none. Skin type: nl. Turgor:good. Digital Hair: sparse. Capillary Refill:<1 sec. Temperature: warm legs, cool feet. Dermatologic: Mycotic nails: none: Thickened Nails: all 10. thickness 2mm. Nail color:pink/white tips Callusing: Heels are hyperkeratotic and dry Corns: none. Ulcers: none. Web spaces: clean. Neurologic: Vibration: -8 forefoot and -5 hindfoot. Monofilament: 10. positive bilaterally. Parasthesias: numb sometimes Orthopedic: Hallux: Nl. Hammer toes: none. Treatment: verbal permission obtained for foot care today 1. Acquired keratoderma Notes: Paring of heel calluses required today 2. Onychauxis All nails were trimmed using sterile nail nippers. Procedure Codes G0127 Trim nails [id number] Paring 2-4 calluses Follow Up 6 months documented in this encounter Plan of Treatment Upcoming Encounters Date Type Department Care Team (Late st Contact Info) Description 01/28/2024 10:30 EDT Office Visit [facility] Endocrinology [address] [place], [place] [phone] Lisa Yan NP 130 [facility] [address] [place] [phone] documented as of this encounter Visit Diagnoses Diagnosis Hyperkeratosis of sole- Primary Acquired keratoderma Type 2 diabetes mellitus with hyperglycemia, without long-term current use of insulin ([facility]) documented in this encounter Care Teams Transmitter Tester Relationship Specialty Start Date End Date Maria R Hermosillo FNP [address] [address] PCP - General Family Medicine - Primary Care 12/03/20 09/25/21 Lisa Yan DERRICK ENGINEER [address] [place] [phone] Nurse Practitioner Endocrinology, Diabetes and Metabolism 03/19/21 Lisa Yan NP [address] [place] [phone] Nurse Practitioner Endocrinology, Diabetes and Metabolism 06/06/21 documented as of this encounter
--- OUTSIDE RECORDS SUMMARY | 2023-11-26 19:35 | XMS_ITS | Encounter Summary ---
Author Organization [facility] Address [address] [place] [address] Care Team Providers Care Heavy Repairer Name Role Phone Maria R Hermosillo [facility] Primary Care Provider [phone]- [phone] Lisa Yan COLOR ADVISER Unavailable Reason for Visit * Reason Comments Diabetes * Referral (Routine) - Authorization Not Required Specialty Diagnoses / Procedures [facility]erred To Contact Endocrinology Diagnoses Type 2 diabetes mellitus without complications ([facility]) Maria R Hermosillo [address] [address] [facility] [address] [place] [id number] Referral ID Status Reason Start Date Expiration Date Visits Requested Visits Authorized [id number] Authorization Not Required 1 1 Encounter Details Date Type Department Care Team (Latest Contact Info) Description 03/19/2021 9:30 EDT Office Visit [facility] Endocrinology [address] [place] [address] Lisa Yan, COLOR ADVISER [address] [facility] [address] [place] [address] Type 2 diabetes mellitus with hyperglycemia, without long-term current use of insulin ([facility]) ([facility]) (Primary Dx); Mixed hyperlipidemia; Morbid obesity with body mass index (BMI) of 60.0 to 69.9 in adult (HCC-CMS) (HCC) ([facility]); Other specified hypothyroidism Social History Tobacco Use Types Packs/Day Years Used Date Smoking Tobacco: Every Day Smokeless Tobacco: Current Comments:vapes Interpersonal Safety Answer Date Record ed Physically Hurt Never 07/31/2020 Verbally Threaten Not on file 07/31/2020 Sex and Gender Information Value Date Recorded Sex Assigned at Female 12/31/2021 11:23 EDT Gender Identity Female 09/11/2021 16:08 EDT Sexual Orientation Asexual 12/31/2021 11 :23 EDT documented as of this encounter Last Filed Vital Signs Vital Sign Reading Time Taken Comments Blood Pressure 98/70 03/19/2021 0937 EDT Pulse 124 03/19/2021 0937 EDT Temperature - - Respiratory Rate 20 03/19/2021 0937 EDT Oxygen Saturation - - Inhaled Oxygen Concentration - - Weight 181.9 kg (401 lb) 03/19/2021 09 EDT Height 165.1 cm (5' 5) 03/19/2021 0937 EDT Body Mass Index 66.73 03/19/2021 0937 EDT documented in this encounter Patient Instructions * Patient Instructions* Lisa Yan APRN - 03/19/2021 9:30 EDT A1C >14 Restart metformin XR 500 mg AM with food, call in 2 weeks and will increase if tolerating well. STOP glipizide. Continue lantus 20 units twice daily and novolog 5 units three times daily with food. Check glucose fasting, before meals and bedtime. Given information to call [employer] to start Toshia 2 CGM. Call in 2 weeks with glucose readings and will increase metformin if tolerating. Follow-up in 6 weeks for review. See TOM Baldwin for footcare. Make eye and dental visit. Call [facility] for dental if needed. Obtain fasting labs when able. documented in this encounter Ordered Prescriptions Prescription Sig Dispensed Refills Start Date End Da te metFORMIN (GLUCOPHAGE-XR) 500 mg ER tablet Take 1 Tablet by mouth daily. 90 Tablet 2 03/19/2021 06/06/2021 documented in this encounter Progress Notes * Shari Hsu RN - 03/19/2021 0930 EDT Medicare alert-declined to sign waiver Needs foot, eye and micro?? A1c 01/21/2021=>14 Glucose-216 * Lisa Yan APRN - 03/19/2021 0930 EDT Reason for Visit: DM initial PCP: BERNIE Hermosillo OTHER PROVIDERS: Zenia Worley is a 30 y.o. female who presented to the clinic for an initial consult in [facility], with a history of DM for ?15 yrs. Hx of HLD, [place] on cpap, PTSD, schizoaffective disprder, anemia, hypothyroid. When initially diagnosed at 16yo, lived in a residential at that time, was getting her BG's checked.Did not see a provider until she was 20yo and started metformin at that time. Did have GI concerns with this and switched to XR version. Did not take medication early 20's up until her move to [place]. Started back on insulin, lantus and humalog, in 2018 prior to her move to [place]. Work brought her to [place], no longer at this job. Was started on glipizide in October/November with PCP. Does not currently work. Lives in [facility] [place], lives on her own. Has applied for housing in [place]. Is working with [employer] on finding work. Sister lives in [place]. Parents have . Notes feeling very tired today, has trouble falling and staying asleep. Random BG in clinic 216. Had not eaten yet today. Takes glipizide along with her novolog. Will take her novolog regardless of eating, takes this at first bite. She is interested in bariatric surgery. TSH ? Levothyroxine 200 mcg [facility] DM: dad, brother Recent A1C: >14 (01/2021) Diabetic Medications: Glipizide 5 mg daily lantus 20 u BID novolog 5 units TID w/ and w/o meals Intolerant to metformin? Current monitoring regimen: Frequency of monitoring? : 4X/day Fasting range: Preprandial range: Postprandial range: Any episodes of hypoglycemia? Yes? 95 has symptoms of lethargic, unfocused Cause of hypoglycemia? Nutrition Daily Recall: will have 1-2 meal/day Breakfast: does not typically have Lunch: sandwich, frozen food, canned food Dinner: Snacks: PB/crackers Beverages: water 2-42 oz/day, crystal light, no etoh Exercise: walking daily 1hr Diabetes Related Problems Eye exam current (within one year): overdue, needs referral Last dental exam: overdue CVD,PVD,CAD: HLD Statin: simvastatin 40 mg Aspirin: no ACEI/ARB: no Prior visit with visual manager: CORNELIO Aguayo Foot care: sef Comorbidities: Retinopathy: no Nephropathy/Kidney function: GFR 58 (01/2021) No results found for: CALCGFR MCR up to date? No results found for: UABCR Neuropathy: on gabapentin for nerve pain on tooth Review of Systems Constitutional: Positive for appetite change (decrease in hunger) and fatigue. Eyes: Negative. Gastrointestinal: Negative. Endocrine: Positive for polydipsia and polyphagia. Genitourinary: Negative. Neurological: Positive for numbness. Physical Exam Constitutional: Appearance: Normal appearance. She is obese. HENT: Head: Normocephalic and atraumatic. Cardiovascular: Rate and Rhythm: Normal rate and regular rhythm. Pulses: Dorsalis pedis pulses are 1+ on the right side and 1+ on the left side. Posterior tibial pulses are 1+ on the right side and 1+ on the left side. Musculoskeletal: Cervical back: Normal range of motion and neck supple. Feet: Right foot: Protective Sensation: 2 sites tested. 2 sites sensed. Skin integrity: Callus and dry skin present. Toenail Condition: Right toenails are long. Left foot: Protective Sensation: 3 sites tested. 3 sites sensed. Skin integrity: Callus and dry skin present. Toenail Condition: Left toenails are long. Skin: General: Skin is warm and dry. Neurological: Mental Status: She is alert and oriented to person, place, and time. Psychiatric: Mood and Affect: Mood normal. Behavior: Behavior normal. Thought Content: Thought content normal. No results found for: HGBA1C No results found for: UABCR No results found for: NA, K, CL, CO2, BUN, CSFGLU, CREATINE, GLU, CA Zenia Worley is a 30 y.o. female who presented to the clinic for an initial consult in [facility], with a history of DM for ?15 yrs. Problem List Items Addressed This Visit Endocrine/Metabolic Type 2 diabetes mellitus, without long-term current use of insulin ([facility]) - Primary Uncontrolled A1C >14 Restart metformin XR 500 mg AM with food, call in 2 weeks and will increase if tolerating well. STOP glipizide. Continue lantus 20 units twice daily and novolog 5 units three times daily with food. Check glucose fasting, before meals and bedtime. Given information to call [employer] to start Toshia 2 CGM. Call in 2 weeks with glucose readings and will increase metformin if tolerating. Follow-up in 6 weeks for review. Deferred MALB today. Labs sent to [facility]. Would like to start GLP if able to tolerate titration of metformin. Long discussion today on medication management and how we move forward. Given info on [facility] and [facility] program for med costs if needed. Relevant Medications metFORMIN (GLUCOPHAGE-XR) 500 mg ER tablet Other Relevant Orders AMB CONS/FOLLOW UP OPHTHALMOLOGY LIPID PROFILE (INCLUDES CHOLESTEROL, TRIGLYCERIDES, HDL, LDL) VITAMIN B12 THYROID CASCADE MAGNESIUM URINE [id number] RATIO (ACR) Other specified hypothyroidism Labs when able. Morbid obesity with body mass index (BMI) of 60.0 to 69.9 in adult ([facility]) ([facility]) Long discussion today on bariatric referral, prefer to get A1C down and housing/job stability as this process can be a larger stress. Will continue to discuss referral. Cardiac/Vasculature Mixed hyperlipidemia Encouraged to consistently take statin nightly . Recheck fasting labs in 2 months. Patient Goals: A1C <7% Exercise: 150-300 minutes of CV exercise/week. Handouts provided for ongoing self education I spent a total of 60 minutes on the date of this encounter meeting with the patient and reviewing documentation/coordinating care as described in the above note. No procedures were performed at the time of the visit. This does not include time reviewing CGM data. documented in this encounter Miscellaneous Notes * Assessment & Plan Note - Lisa Yan APRN - 03/19/2021 1035 EDT Associated Problem(s): BMI 60.0-69.9, adult ([facility]) Long discussion today on bariatric referral, prefer to get A1C down and housing/job stability as this process can be a larger stress. Will continue to discuss referral. * Assessment & Plan Note - Lisa Yan APRN - 03/19/2021 1034 EDT Associated Problem(s): Other specified hypothyroidism Labs when able. * Assessment & Plan Note - Lisa Yan APRN - 03/19/2021 1005 EDT Associated Problem(s): Mixed hyperlipidemia Encouraged to consistently take statin nightly . Recheck fasting labs in 2 months. * Assessment & Plan Note - Lisa Yan APRN - 03/19/2021 0959 EDT Associated Problem(s): Type 2 diabetes mellitus with hyperglycemia, with long- term current use of insulin ([facility]) Uncontrolled A1C >14 Restart metformin XR 500 mg AM with food, call in 2 weeks and will increase if tolerating well. STOP glipizide. Continue lantus 20 units twice daily and novolog 5 units three times daily with food. Check glucose fasting, before meals and bedtime. Given information to call [employer] to start Toshia 2 CGM. Call in 2 weeks with glucose readings and will increase metformin if tolerating. Follow-up in 6 weeks for review. Deferred MALB today. Labs sent to [facility]. Would like to start GLP if able to tolerate titration of metformin. Long discussion today on medication management and how we move forward. Given info on [facility] program for med costs if needed. documented in this encounter Plan of Treatment Upcoming Encounters Date Type Department Care Team (Late st Contact Info) Description 01/28/2024 10:30 EDT Office Visit [facility] Endocrinology [address] [place] [address] Lisa Yan NP [address] [phone] documented as of this encounter Visit Diagnoses Diagnosis Type 2 diabetes mellitus with hyperglycemia, without long-term current use of insulin ([facility])- Primary Mixed hyperlipidemia Morbid obesity with body mass index (BMI) of 60.0 to 69.9 in adult ([facility]) Other specified hypothyroidism documented in this encounter Discontinued Medications Medication Sig Discontinue Reason Start Date End Da te HUMALOG KWIKPEN INSULIN 100 unit/mL injectable pen INJECT 5 UNITS UNDER THE SKIN THREE TIMES A DAY WITH MEALS FOR 10 DAYS 02/21/2021 03/19/2021 QUEtiapine (SEROQUEL) 300 mg tablet 03/01/2021 03/19/2021 ferrous sulfate (FEROSUL) 325 mg (65 mg iron) tablet Take 325 mg by mouth daily. 03/19/2021 documented as of this encounter Historical Medications * This list may reflect changes made after this encounter. Medication Sig Dispensed Refills Start Date End Date BD AUTOSHIELD DUO PEN NEEDLE 30 gauge x 3/16 needle 03/07/2021 08/11/2021 added in this encounter Care Teams Heavy Repairer Relationship Specialty Start Date End Date Maria R Hermosillo FNP [facility] MEDICINE [address] [address] PCP - General Family Medicine - Primary Care 12/03/20 09/25/21 Lisa Yan NP [address] [place] [phone] Nurse Practitioner Endocrinology, Diabetes and Metabolism 03/19/21 documented as of this encounter
--- OUTSIDE RECORDS SUMMARY | 2023-11-26 19:35 | XMS_ITS | Encounter Summary ---
Author Organization [facility] Address [address] [place] [address] Care Team Providers Care Pourer Bull Ladle Name Role Phone BayMaria R APPLICATION SUPPORT ANALYST Primary Care Provider +1- [phone] Lisa Yan LIME PULLER Unavailable Lisa Yan LIME PULLER Unavailable Reason for Visit * Reason Onset Date Comments Diabetes 06/26/2021 Encounter Details Date Type Department Care Team (Late st Contact Info) Description 06/26/2021 Telephone [facility] [place] [address] [place] [id number] Shari Hsu RN Diabetes Social History Tobacco [...] Telephone Encounter - Shari Hsu RN - 06/26/2021 6859 EST Trying to get freestyle [facility]- [facility] states they are missing info from us- called [facility]- they are all set from our end the case is being challenged by medicare and will have an answer in 24 hours and will notify pt documented in this encounter Plan of Treatment Upcoming Encounters Date Type Department Care Team (Late st Contact Info) Description 01/28/2024 10:30 EDT Office Visit [facility] Endocrinology [address] [place] [address] Lisa Yan LIME PULLER [address] [place] [phone] documented as of this encounter Visit Diagnoses Not on filedocumented in this encounter Care Teams Pourer Bull Ladle Relationship Specialty Start Date End Date Maria R Hermosillo FNP [address] [address] PCP - General Family Medicine - Primary Care 12/03/20 09/25/21 Lisa Yan LIME PULLER [address] [place] [phone] Nurse Practitioner Endocrinology, Diabetes and Metabolism 03/19/21 Lisa Yan LIME PULLER [address] [place] [phone] Nurse Practitioner Endocrinology, Diabetes and Metabolism 06/06/21 documented as of this encounter
--- OUTSIDE RECORDS SUMMARY | 2023-11-26 19:35 | XMS_ITS | Encounter Summary ---
Author Organization [facility] Address [address] [place] [address] Care Team Providers Care Gypsum Roofer Name Role Phone BayMaria R ATTORNEY RECRUITER Primary Care Provider [phone] Lisa Yan PNEUMATIC TESTER MECHANIC Unavailable Lisa Yan PNEUMATIC TESTER MECHANIC Unavailable Reason for Visit * Reason Comments Diabetes Encounter Details Date Type Department Care Team (Latest Contact Info) Description 06/06/2021 16:15 EST Office Visit [facility] [place] [address] [place] [address] Lisa Yan, PNEUMATIC TESTER MECHANIC [address] [facility] [address] [place] [address] Type 2 diabetes mellitus with hyperglycemia, with long-term current use of insulin ([facility] ([facility]) (Primary Dx); Type 2 diabetes mellitus with hyperglycemia, without long-term current use of insulin ([facility]) (HCC); Morbid obesity with body mass index (BMI) of 60.0 to 69.9 in adult ([facility]) ([facility]) ([facility]); Other specified hypothyroidism; Mixed hyperlipidemia Social History Tobacco Use Types [...] Sign Reading Time Taken Comments Blood Pressure 102/52 06/06/2021 1534 EST Pulse 90 06/06/2021 1534 EST Temperature - - Respiratory Rate - - Oxygen Saturation - - Inhaled Oxygen Concentration - - Weight 180.7 kg (398 lb 6.4 oz) 06/06/2021 1534 EST Height 162.6 cm (5' 4) 06/06/2021 1534 EST Body Mass Index 68.39 06/06/2021 1534 EST documented in this encounter Patient Instructions * Patient Instructions* Lisa Yan APRN - 06/06/2021 16:15 EST A1C 14 Increase lantus 25 units twice daily. Adjust novolog sliding scale: Blood sugars: 80-100 3 units 101-150 5 units 151-200 7 units 201-250 9 units 251-300 11 units 301-350 12 units Take this 10-15 minutes before eating!! Call me in 2 weeks with readings and will adjust pending. Encouraged continued hydration and increase in activity as able. Follow-up in 6 weeks or sooner. Labs today. Visit with TOM Baldwin to start Toshia CGM and DM education. documented in this encounter Ordered Prescriptions Prescription Sig Dispensed Refills Start Date End Da te levothyroxine (SYNTHROID) 200 mcg tablet Take 1 Tablet by mouth daily. 90 Tablet 2 06/06/2021 06/09/2021 metFORMIN (GLUCOPHAGE-XR) 500 mg ER tablet Take 1 Tablet by mouth daily. 90 Tablet 2 06/06/2021 06/09/2021 insulin pen needles 32G x 5/32 (PEN NEEDLE) 1 pen needle by misc (non-drug; combo route) route 5 times daily. 500 Each 2 06/06/2021 06/09/2021 NOVOLOG FLEXPEN U-100 INSULIN 100 unit/mL (3 mL) injectable pen TDD 36 three times daily with meals: 80-100 3 units 101-150 5 units 151-200 7 units 201-250 9 units 251-300 11 units 301-350 12 units 33 mL 3 06/06/2021 06/09/2021 insulin glargine (LANTUS SOLOSTAR U-100 INSULIN) 100 unit/mL (3 mL) injection pen Inject 25 Units into the skin 2 times daily. 45 mL 2 06/06/2021 06/09/2021 simvastatin (ZOCOR) 40 mg tablet Take 1 Tablet by mouth daily. 90 Tablet 2 06/06/2021 06/09/2021 documented in this encounter Progress Notes * Shari Hsu RN - 06/06/2021 1630 EST Lab message sent Needs to be on a sliding scale for medicare to approve toshia ?? Lab message sent ? Needs eye and micro?? A1c 01/21/2021=>14 GLUCOSE-73 * Lisa Yan APRN - 06/06/2021 1615 EST Reason for Visit: DM f/up PCP: BERNIE Hermosillo OTHER PROVIDERS: Zenia Worley is a 31 y.o. female who presented to the clinic for a follow-up in [facility], with a history of DM for ?15 yrs. Hx of HLD, [place] on cpap, PTSD, schizoaffective disprder, anemia, hypothyroid. Does not currently work. Lives in [facility] in [place], lives on her own. Has applied for housing in [place]. Is working with [employer] on finding work. Sister lives in [place]. Parents have . Has foot care with TOM Baldwin today. Has moved to [facility], thought she was going to have a medical team when she moved set up, shehad to find these on her own which was difficult. Is waiting for PNEUMATIC TESTER MECHANIC visit with [facility] Internal med. She has set up a new psychiatrist. Random BG in clinic 71. Taken insulin without eating prior to visit. Had bfast around 11:30 am, only took her lantus with this. Took the novolog about 1.5 hrs after this before coming into clinic. She did stop the glipizide. Started the metformin is now up to 2 tabs daily. Has not been able to get labs yet with the move of her PCP. She is taking the simvastatin nightly. She is interested in bariatric surgery. TSH 2.62 (05/2021) Levothyroxine 200 mcg [facility] DM: dad, brother Recent A1C: >14 (05/2021 >14 (01/2021) Diabetic Medications: Metformin XR 500 mg twice daily lantus 20 u BID novolog SS: avg 5 units TID w/ [...] Aspirin: no ACEI/ARB: no Prior visit with aircraft layout worker: CORNELIO Aguayo Foot care: sef Comorbidities: Retinopathy: [...] Behavior normal. Thought Content: Thought content normal. Hemoglobin A1c, POC Date Value Ref Range Status 06/06/2021 >14.0 5.7 % Final No results found for: UABCR No results found for: NA, K, CL, CO2, BUN, CSFGLU, CREATINE, GLU, CA Zenia Worley is a 31 y.o. female who presented to the clinic for an initial consult in [facility], with a history of DM for ?15 yrs. Problem List Items Addressed This Visit Endocrine/Metabolic Type 2 diabetes mellitus, without long-term current use of insulin ([facility]) Uncontrolled A1C 14 Increase lantus 25 units twice daily. Adjust novolog sliding scale: Blood sugars: 80-100 3 units 101-150 5 units 151-200 7 units 201-250 9 units 251-300 11 units 301-350 12 units Take this 10-15 minutes before eating!! Call me in 2 weeks with readings and will adjust pending. Encouraged continued hydration and increase in activity as able. Follow-up in 6 weeks or sooner. Labs today. Visit with TOM Baldwin to start Toshia CGM and DM education. Relevant Medications insulin glargine (LANTUS SOLOSTAR U-100 INSULIN) 100 unit/mL (3 mL) injection pen NOVOLOG FLEXPEN U-100 INSULIN 100 unit/mL (3 mL) injectable pen metFORMIN (GLUCOPHAGE-XR) 500 mg ER tablet Other specified hypothyroidism TSH stable. Continue levothyroxine 200 mcg daily. Morbid obesity with body mass index (BMI) of 60.0 to 69.9 in adult ([facility]) ([facility]) Cardiac/Vasculature Mixed hyperlipidemia Labs when able. Other Visit Diagnoses Type 2 diabetes mellitus with hyperglycemia, with long-term current use of insulin ([facility]) ([facility]) - Primary Relevant Medications insulin glargine (LANTUS SOLOSTAR U-100 INSULIN) 100 unit/mL (3 mL) injection pen NOVOLOG FLEXPEN U-100 INSULIN 100 unit/mL (3 mL) injectable pen metFORMIN (GLUCOPHAGE-XR) 500 mg ER tablet Other Relevant Orders POCT GLUCOSE, MANUAL ENTRY (Completed) POCT HEMOGLOBIN A1C (Completed) URINE [id number] RATIO (ACR) Patient Goals: A1C <7% Exercise: 150-300 minutes of CV exercise/week. documented in this encounter Miscellaneous Notes * Assessment & Plan Note - Lisa Yan APRN - 06/06/2021 1647 EST Associated Problem(s): Mixed hyperlipidemia Labs when able. * Assessment & Plan Note - Lisa Yan APRN - 06/06/2021 1634 EST Associated Problem(s): Type 2 diabetes mellitus with hyperglycemia, with long- term current use of insulin ([facility]) Uncontrolled A1C 14 Increase lantus 25 units twice daily. Adjust novolog sliding scale: Blood sugars: 80-100 3 units 101-150 5 units 151-200 7 units 201-250 9 units 251-300 11 units 301-350 12 units Take this 10-15 minutes before eating!! Call me in 2 weeks with readings and will adjust pending. Encouraged continued hydration and increase in activity as able. Follow-up in 6 weeks or sooner. Labs today. Visit with TOM Baldwin to start Toshia CGM and DM education. * Assessment & Plan Note - Lisa Yan APRN - 06/06/2021 1633 EST Associated Problem(s): Other specified hypothyroidism TSH stable. Continue levothyroxine 200 mcg daily. documented in this encounter Plan of Treatment Upcoming Encounters Date Type Department Care Team (Late st Contact Info) Description 01/28/2024 10:30 EDT Office Visit [facility] Endocrinology [address] [place] [address] Lisa Yan, BERNIE [address] [facility] [address] [place] [address] documented as of this encounter Procedures Procedure Name Priority Date/Time Associated Diagnosis Comments POCT GLUCOSE, MANUAL ENTRY Routine 06/06/2021 Type 2 diabetes mellitus with hyperglycemia, with long-term current use of insulin ([facility]) ([facility]) POCT HEMOGLOBIN A1C Routine 06/06/2021 Type 2 diabetes mellitus with hyperglycemia, with long-term current use of insulin ([facility]) ([facility]) documented in this encounter Results * POCT HEMOGLOBIN A1C (06/06/2021) Hemoglobin A1c, POC >14.0 5.7 % [facility] POINT OF CARE Blood CAPILLARY BLOOD / Unknown 06/06/2021 Lisa Yan NP POINT OF CARE SARAY T ORDERABLES Performing Organization Address [facility] de Phone Number [facility] POINT OF CARE * POCT GLUCOSE, MANUAL ENTRY (06/06/2021) Glucose, POC 73 70 - 100 mg/dL [facility] POINT OF CARE HN LAB POC COMMENT MANUAL (GLUCOSE) [facility] POINT OF lead java developer architect ID [facility] PO[facility] T OF CARE Blood CAPILLARY BLOOD / Unknown 06/06/2021 Lisa Yan NP POINT OF CARE SARAY T ORDERABLES Performing Organization Address [facility] Phone Number [facility] POINT OF CARE documented in this encounter Visit Diagnoses Diagnosis Type 2 diabetes mellitus with hyperglycemia, with long-term current use of insulin ([facility])- Primary Type 2 diabetes mellitus with hyperglycemia, without long-term current use of insulin ([facility]) Morbid obesity with body mass index (BMI) of 60.0 to 69.9 in adult ([facility]) Other specified hypothyroidism Mixed hyperlipidemia documented in this encounter Discontinued Medications Medication Sig Discontinue Reason Start Date End Da te erythromycin (ROMYCIN) 5 mg/gram (0.5 %) ophthalmic ointment ERYTHROMYCIN 5 MG/GM OINT Therapy completed 05/20/2021 06/06/2021 erythromycin (ROMYCIN) 5 mg/gram (0.5 %) ophthalmic ointment Therapy completed 05/20/2021 06/06/2021 glipiZIDE (GLUCOTROL) 5 mg tablet Take 5 mg by mouth daily. Therapy completed 06/06/2021 LANTUS SOLOSTAR U-100 INSULIN 100 unit/mL (3 mL) injection pen INJECT 20 UNITS TWO TIMES A DAY Duplicate order 04/07/2021 06/06/2021 prazosin (MINIPRESS) 5 mg capsule MINIPRESS 5 MG CAPS Duplicate order 06/06/2021 zolpidem (AMBIEN) 10 mg tablet Take 10 mg by mouth daily. Therapy completed 06/06/2021 simvastatin (ZOCOR) 40 mg tablet Take 40 mg by mouth daily. Reorder 06/06/2021 insulin glargine,hum.rec.anlo g (LANTUS SOLOSTAR U-100 INSULIN SUBQ) Inject 25 Units into the skin 2 times daily. Reorder 06/06/2021 insulin pen needles 32G x 5/32 (PEN NEEDLE) 2 pen needles by misc (non-drug; combo route) route daily. Reorder 06/06/2021 NOVOLOG FLEXPEN U-100 INSULIN 100 unit/mL (3 mL) injectable pen Inject 5 Units into the skin 3 times daily with meals. Reorder 03/08/2021 06/06/2021 metFORMIN (GLUCOPHAGE-XR) 500 mg ER tablet Take 1 Tablet by mouth daily. Reorder 03/19/2021 06/06/2021 lurasidone (LATUDA) 80 mg tablet Take 80 mg by mouth daily. 06/06/2021 divalproex ER (DEPAKOTE ER) 500 mg tablet Take 500 mg by mouth daily. 06/06/2021 levothyroxine (SYNTHROID) 200 mcg tablet Take 200 mcg by mouth daily. Reorder 06/06/2021 documented as of this encounter Historical Medications * This list may reflect changes made after this encounter. Medication Sig Dispensed Refills Start Date End Date prazosin (MINIPRESS) 5 mg capsule MINIPRESS 5 MG CAPS 06/06/19 erythromycin (ROMYCIN) 5 mg/gram (0.5 %) ophthalmic ointment 05/20/2021 06/06/19 erythromycin (ROMYCIN) 5 mg/gram (0.5 %) ophthalmic ointment ERYTHROMYCIN 5 MG/GM OINT 05/20/2021 06/06/2021 added in this encounter Care Teams Gypsum Roofer Relationship Specialty Start Date End Date Maria R Hermosillo FNP [address] [address] PCP - General Family Medicine - Primary Care 12/03/20 09/25/21 Lisa Yan, PNEUMATIC TESTER MECHANIC [address] [place] [phone] Nurse Practitioner Endocrinology, Diabetes and Metabolism 03/19/21 Lisa Yan PNEUMATIC TESTER MECHANIC [address] [place] [phone] Nurse Practitioner Endocrinology, Diabetes and Metabolism 06/06/21 documented as of this encounter
--- OUTSIDE RECORDS SUMMARY | 2023-11-26 19:35 | XMS_ITS | Encounter Summary ---
Author Organization [facility] Address [address] [place] [address] Care Team Providers Care Lead Producer Name Role Phone Maria R Hermosillo SUPERVISOR REFINING Primary Care Provider [phone] Lisa Yan DIVISION OPERATIONS MANAGER Unavailable [phone] Lisa Yan DIVISION OPERATIONS MANAGER Unavailable Reason for Visit * Reason Comments Diabetes Encounter Details Date Type Department Care Team (Late st Contact Info) Description 07/18/2021 16:00 EST Office Visit [facility] Endocrinology [address] [place] [address] Lisa Yan DIVISION OPERATIONS MANAGER [address] [facility] [address] [place] [phone] Type 2 diabetes mellitus with hyperglycemia, with long-term current use of insulin ([facility] ([facility]) (Primary Dx); Mixed hyperlipidemia; Other specified hypothyroidism; Morbid obesity with body mass index (BMI) of 60.0 to 69.9 in adult ([facility] ([facility]) ([facility]) Social History Tobacco Use Types Packs/Day Years [...] Sign Reading Time Taken Comments Blood Pressure 112/66 07/18/2021 1522 EST Pulse 72 07/18/2021 1522 EST Temperature - - Respiratory Rate - - Oxygen Saturation - - Inhaled Oxygen Concentration - - Weight 179.2 kg (395 lb) 07/18/2021 1522 EST Height 167.6 cm (5' 6) 07/18/2021 1522 EST Body Mass Index 63.75 07/18/2021 1522 EST documented in this encounter Patient Instructions * Patient Instructions* Lisa Yan APRN - 07/18/2021 16:00 EST A1C 14 No BG's today, no changes: Continue with lantus 25 units twice daily and novolog sliding scale before all meals: 80-100 3 units 101-150 5 units 151-200 7 units 201-250 9 units 251-300 11 units 301-350 12 units Check glucose fasting, before meals, 2 hours post and bedtime. Call or send a message in 2 weeks with readings. Encouraged to continue with diet/lifestyle changes!! Follow-up 2-3 months or sooner with concerns. Fasting labs when able. Make eye exam. Make dental visit. documented in this encounter Ordered Prescriptions Prescription Sig Dispensed Refills Start Date End Da te simvastatin (ZOCOR) 40 mg tablet Take 1 Tablet by mouth daily. 90 Tablet 2 07/18/2021 09/26/2021 documented in this encounter Progress Notes * Shari Hsu RN - 07/18/2021 1600 EST Needs eye and micro Lab Results Component Value Date HGBA1C >14.0 06/06/2021 Glucose- * Lisa Yan APRN - 07/18/2021 1600 EST Reason for Visit: DM f/up PCP: BERNIE Matute OTHER PROVIDERS: Zenia Worley is a 31 y.o. female who presented to the clinic for a follow-up in [facility], with a history of DM for ?15 yrs. Hx of HLD, [place] on cpap, PTSD, schizoaffective disprder, anemia, hypothyroid, hypoglycemia comas. Does not currently work. Lives in [facility] in [place], lives on her own. Has applied for housing in [place]. Is working with [employer] on finding work. Sister lives in [place]. Parents have . Shared visit with TOM Baldwin today. Has moved to [facility], thought she was going to have a medical team when she moved set up, shehad to find these on her own which was difficult. Is waiting for DIVISION OPERATIONS MANAGER visit with [facility] Internal med. She has set up a new psychiatrist. They have reduced her seroquel in half, feeling much better, having more energy. Her sleep is getting better. Notes [facility] medical still needs paperwork regarding the CGM. Random BG in clinic 69. Had a bagel for lunch, BG 197 and took 5 units, this was 2 hours ago. She didn't bring in her glucometer today. Take her novolog before meals, does follow the SS, typically takes 5 units. Notes having some lows, about 3 times since our last visit, down to 70's Working on carb counting and daily hydration. Has stopped drinking soda and chips. Has increased activity 25 minutes/day up/down stairs. She needs a refill of her simvastatin. She is interested in bariatric surgery. Has yet to make eye and dental visits. TSH 2.62 (05/2021) Levothyroxine 200 mcg [facility] DM: dad, brother Recent A1C: >14 (05/2021) >14 (01/2021) Diabetic Medications: Metformin XR 500 mg twice daily lantus 25 u BID novolog SS: avg 5 units [...] Aspirin: no ACEI/ARB: no Prior visit with piano regulator inspector: CORNELIO Aguayo Foot care: self Comorbidities: Retinopathy: no Nephropathy/Kidney function: GFR 58 [...] to the clinic for a follow-up in [facility], with a history of DM for ?15 yrs. Problem List Items Addressed This Visit Endocrine/Metabolic Type 2 diabetes mellitus with hyperglycemia, with long-term current use of insulin ([facility] ([facility]) - Primary Uncontrolled A1C 14 No BG's today, no changes: Continue with lantus 25 units twice daily and novolog sliding scale before all meals: 80-100 3 units 101-150 5 units 151-200 7 units 201-250 9 units 251-300 11 units 301-350 12 units Check glucose fasting, before meals, 2 hours post and bedtime. Call or send a message in 2 weeks with readings. Encouraged to continue with diet/lifestyle changes!! Follow-up 2-3 months or sooner with concerns. Pending BG's may look to increase metformin or add GLP. Fasting labs when able. Relevant Orders COMPREHENSIVE METABOLIC PANEL (CMP) Other specified hypothyroidism Stable. Will recheck with recent weight loss. Morbid obesity with body mass index (BMI) of 60.0 to 69.9 in adult ([facility] ([facility]) Congratulated on weight loss and encouraged continued motivation! Cardiac/Vasculature Mixed hyperlipidemia Fasting labs when able. Patient Goals: A1C <7% Exercise: 150-300 minutes of CV exercise/week. * Dina Baldwin RN - 07/18/2021 1600 EST Diabetes ed note Joined visit Visit type: office Reports her Seroquel was cut in half to help her uncontrolled blood sugars. Since that change her blood sugars have come down a couple hundred points and she feels better overall. She reports more energy and feels her psych is in a good place now. SBGM results: FBS: 220 or most under 200 Lunch: 180 Dinner:195 HS: 170 Hypoglycemia: 69 with no symptoms here in office. bs was 197, took 5 units for her bagel and now 2 hrs later is low. Treated with juices And pb crackers. Current regimen: Lantus 25 twice daily Novolog SSC Metformin 500mg twice daily Avg: no Novolog at breakfast, 5 units at lunch and dinner Dietary intake: Measures portions, counts carbs Breakfast: 2 cheesesticks, 1 egg, 8 oz oj Lunch: sandwich or leftovers Dinner: protein, vegetables or salad, rice Snacks: AM 1 yogurt, beef jerky Beverages: low sugar gatorade, Hina water 40 oz or more, sparkling water Has cut soda and chips Activity: Up and down stairs, 4 flights 25 minutes daily Needs Simvastatin, has been out for 2 months documented in this encounter Miscellaneous Notes * Assessment & Plan Note - Lisa Yan APRN - 07/18/2021 1632 EST Associated Problem(s): BMI 60.0-69.9, adult ([facility]) Congratulated on weight loss and encouraged continued motivation! * Assessment & Plan Note - Lisa Yan APRN - 07/18/2021 1632 EST Associated Problem(s): Other specified hypothyroidism Stable. Will recheck with recent weight loss. * Assessment & Plan Note - Lisa Yan APRN - 07/18/2021 1631 EST Associated Problem(s): Mixed hyperlipidemia Fasting labs when able. * Assessment & Plan Note - Lisa Yan APRN - 07/18/2021 1547 EST Associated Problem(s): Type 2 diabetes mellitus with hyperglycemia, with long- term current use of insulin ([facility]) Uncontrolled A1C 14 No BG's today, no changes: Continue with lantus 25 units twice daily and novolog sliding scale before all meals: 80-100 3 units 101-150 5 units 151-200 7 units 201-250 9 units 251-300 11 units 301-350 12 units Check glucose fasting, before meals, 2 hours post and bedtime. Call or send a message in 2 weeks with readings. Encouraged to continue with diet/lifestyle changes!! Follow-up 2-3 months or sooner with concerns. Pending BG's may look to increase metformin or add GLP. Fasting labs when able. documented in this encounter Plan of Treatment Upcoming Encounters Date Type Department Care Team (Late st Contact Info) Description 01/28/2024 10:30 EDT Office Visit [facility] Endocrinology [address] [place] [address] Lisa Yan NP [address] [place] [phone] documented as of this encounter Visit Diagnoses Diagnosis Type 2 diabetes mellitus with hyperglycemia, with long-term current use of insulin ([facility])- Primary Mixed hyperlipidemia Other specified hypothyroidism Morbid obesity with body mass index (BMI) of 60.0 to 69.9 in adult ([facility]) documented in this encounter Discontinued Medications Medication Sig Discontinue Reason Start Date End Da te simvastatin (ZOCOR) 40 mg tablet Take 1 Tablet by mouth daily. Reorder 06/09/2021 07/18/2021 documented as of this encounter Care Teams Lead Producer Relationship Specialty Start Date End Date Maria R Hermosillo FNP [address] [address] PCP - General Family Medicine - Primary Care 12/03/20 09/25/21 Lisa Yan DIVISION OPERATIONS MANAGER [address] [place] [phone] Nurse Practitioner Endocrinology, Diabetes and Metabolism 03/19/21 Lisa Yan DIVISION OPERATIONS MANAGER [address] [place] [phone] Nurse Practitioner Endocrinology, Diabetes and Metabolism 06/06/21 documented as of this encounter
--- OUTSIDE RECORDS SUMMARY | 2023-11-26 19:35 | XMS_ITS | Encounter Summary ---
Author Organization [facility] Address [address] [place] [address] Care Team Providers Care Spring Salvage Worker Name Role Phone Maria R Hermosillo BODY MAKER MACHINE SETTER Primary Care Provider [phone] Lisa Yan SALES DEVELOPMENT MANAGER Unavailable Lisa Yan SALES DEVELOPMENT MANAGER Unavailable [phone] Reason for Visit * Reason Onset Date Comments Medications Refill 06/09/2021 Encounter Details Date Type Department Care Team (Late st Contact Info) Description 06/09/2021 Refill [facility] Endocrinology [address] [place] [id number] Sheryl More RN Medications Refill Social History [...] by mouth daily. 90 Tablet 2 06/09/2021 06/09/2021 NOVOLOG FLEXPEN U-100 INSULIN 100 unit/mL (3 mL) injectable pen TDD 36 three times daily with meals: 80-100 3 units 101-150 5 units 151-200 7 units 201-250 9 units 251-300 11 units 301-350 12 units 33 mL 3 06/09/2021 06/09/2021 metFORMIN (GLUCOPHAGE-XR) 500 mg ER tablet Take 1 Tablet by mouth daily. 90 Tablet 2 06/09/2021 06/09/2021 levothyroxine (SYNTHROID) 200 mcg tablet Take 1 Tablet by mouth daily. 90 Tablet 2 06/09/2021 06/09/2021 insulin pen needles 32G x /32 (PEN NEEDLE) 1 pen needle by misc (non-drug; combo route) route 5 times daily. 500 Each 2 06/09/2021 06/09/2021 insulin glargine (LANTUS SOLOSTAR U-100 INSULIN) 100 unit/mL (3 mL) injection pen Inject 25 Units into the skin 2 times daily. 45 mL 2 06/09/2021 06/09/2021 documented in this encounter Miscellaneous Notes * Telephone Encounter - Sheryl More RN - 06/09/2021 1312 EST Patient called to say pharmacy had not received the prescriptions sent by Lisa on 05/18/21. All the meds showed they had been received but I resent them to the pharmacy and will give a follow up call to make sure they have received them. Patient hung up on me. documented in this encounter Plan of Treatment Upcoming Encounters Date Type Department Care Team (Late st Contact Info) Description 01/28/2024 10:30 EDT Office Visit [facility] Endocrinology [address] [place], [place] [phone] Lisa Yan NP [address] [facility] [address] [place] [phone] documented as of this encounter Visit Diagnoses Not on filedocumented in this encounter Discontinued Medications Medication Sig Discontinue Reason Start Date End Da te simvastatin (ZOCOR) 40 mg tablet Take 1 Tablet by mouth daily. Reorder 06/06/2021 06/09/2021 insulin glargine (LANTUS SOLOSTAR U-100 INSULIN) 100 unit/mL (3 mL) injection pen Inject 25 Units into the skin 2 times daily. Reorder 06/06/2021 06/09/2021 NOVOLOG FLEXPEN U-100 INSULIN 100 unit/mL (3 mL) injectable pen TDD 36 three times daily with meals: 80-100 3 units 101-150 5 units 151-200 7 units 201-250 9 units 251-300 11 units 301-350 12 units Reorder 06/06/2021 06/09/2021 insulin pen needles 32G x 5/32 (PEN NEEDLE) 1 pen needle by misc (non-drug; combo route) route 5 times daily. Reorder 06/06/2021 06/09/2021 metFORMIN (GLUCOPHAGE-XR) 500 mg ER tablet Take 1 Tablet by mouth daily. Reorder 06/06/2021 06/09/2021 levothyroxine (SYNTHROID) 200 mcg tablet Take 1 Tablet by mouth daily. Reorder 06/06/2021 06/09/2021 documented as of this encounter Care Teams Spring Salvage Worker Relationship Specialty Start Date End Date Maria R Hermosillo FNP [address] [address] PCP - General Family Medicine - Primary Care 12/03/20 09/25/21 Lisa Yan NP [address] [place] [phone] Nurse Practitioner Endocrinology, Diabetes and Metabolism 03/19/21 Lisa Yan NP [address] [place] [address] [phone] Nurse Practitioner Endocrinology, Diabetes and Metabolism 06/06/21 documented as of this encounter
--- OUTSIDE RECORDS SUMMARY | 2023-11-26 19:35 | XMS_ITS | Encounter Summary ---
Author Organization [facility] Address [address] [place] [address] Care Team Providers Care Food Stand Manager Name Role Phone Maria R Hermosillo POLYSOM TECH Primary Care Provider [phone] Lisa Yan STUDENT ASSISTANT Unavailable Reason for Visit * Reason Onset Date Comments Appointment Related 04/29/2021 Encounter Details Date Type Department Care Team (Late st Contact Info) Description 04/29/2021 Telephone [facility] Ophthalmology - [place] [address] [place], [place] [phone] Ten Mahajan MD [address] [place] [phone] Appointment Related Social History Tobacco Use Types [...] encounter Miscellaneous Notes * Telephone Encounter - Carmelita Orellana - 04/29/2021 1333 EST Lm for pt to call to reschedule no show appt. On 04/28/[address] Mahajan documented in this encounter Plan of Treatment Upcoming Encounters Date Type Department Care Team (Late st Contact Info) Description 01/28/2024 10:30 EDT Office Visit [facility] Endocrinology [address] [place] [address] Lisa Yan STUDENT ASSISTANT [address] [place] [phone] documented as of this encounter Visit Diagnoses Not on filedocumented in this encounter Care Teams Food Stand Manager Relationship Specialty Start Date End Date Maria R Hermosillo FNP [address] [address] PCP - General Family Medicine - Primary Care 12/03/20 09/25/21 Lisa Yan STUDENT ASSISTANT [address] [place] [phone] Nurse Practitioner Endocrinology, Diabetes and Metabolism 03/19/21 documented as of this encounter
--- OUTSIDE RECORDS SUMMARY | 2023-11-26 19:35 | XMS_ITS | Encounter Summary ---
Author Organization [facility] Address [address] [place] [address] Care Team Providers Care Microsoft Application Developer Name Role Phone Bay, Maria R Ana RECYCLABLE MATERIALS SORTER Primary Care Provider [phone] Lisa Yan MACHINE SHOP WORKER Unavailable Lisa Yan MACHINE SHOP WORKER Unavailable [phone] Lia Pearson APRN Primary Care Provider [phone] Encounter Details Date Type Department Care Team (Late st Contact Info) Description 06/17/2021 Lab Requisition [facility] Pathology & Laboratory Medicine - [facility] [address] [place], [place] [address] Outr Resulting Lab, Provider Social History Tobacco [...] Info) Description 01/28/2024 10:30 EDT Office Visit [facility] Endocrinology [address] [place] [address] Lisa Yan, MACHINE SHOP WORKER [address] [facility] [address] [place] [phone] documented as of this encounter Procedures Procedure Name Priority Date/Time Associated Diagnosis Comments HOLD SST Today 06/16/2021 19:50 EST T3 FREE Today 06/16/2021 19:50 EST T3, TOTAL Today 06/16/2021 19:50 EST documented in this encounter Results * HOLD SST (06/16/2021 19:50 EST) Hold Hold 06/17/2021 17:01 EST [facility] Blood VENOUS BLOOD / Unknown 06/16/2021 19:50 EST 06/17/2021 15:49 EST Provider Outr Resulting Lab LAB INFO SER VICE AND SUPPORT & PHONE RESULT Performing Organization Address City/[facility]/ZIP Co de Phone Number [facility] [address] [place] [address] * T3 FREE (06/16/2021 19:50 EST) T3, Free 3.2 2.8 - 5.3 pg/mL 06/17/2021 16:25 EST [facility] Blood VENOUS BLOOD / Unknown 06/16/2021 19:50 EST 06/17/2021 15:48 EST Provider Outr Resulting Lab CHEMISTRY & BLOOD GAS ORDERABLES Performing Organization Address City/[facility]/ZIP Co de Phone Number [facility] [address] [place] [address] * (ABNORMAL) T3, TOTAL (06/16/2021 19:50 EST) T3, Total 255(H) 97 - 169 ng/dL 06/17/2021 16:42 EST [facility] Blood VENOUS BLOOD / Unknown 06/16/2021 19:50 EST 06/17/2021 15:48 EST Provider Outr Resulting Lab CHEMISTRY & BLOOD GAS ORDERABLES [facility] [address] [place] [address] documented in this encounter Visit Diagnoses Not on filedocumented in this encounter Additional Health Concerns Infection Onset Date Last Indicated Resolved Time COVID-19 12/25/2021 12/25/2021 01/14/2022 22:1 5 EDT documented as of this encounter Care Teams Microsoft Application Developer Relationship Specialty Start Date End Date Maria R Hermosillo FNP [facility] [address] [address] PCP - General Family Medicine - Primary Care 12/03/20 09/25/21 Lia Pearson APRN [address] [place] [phone] PCP - General Family Medicine - [facility] 09/26/21 Lisa Yan, MACHINE SHOP WORKER [address] [place], [place] [address] [address] [phone] Nurse Practitioner Endocrinology, Diabetes and Metabolism 03/19/21 Lisa Yan MACHINE SHOP WORKER [address] [place], [place] [address] [address] [phone] Nurse Practitioner Endocrinology, Diabetes and Metabolism 06/06/21 documented as of this encounter
--- OUTSIDE RECORDS SUMMARY | 2023-11-26 19:35 | XMS_ITS | Encounter Summary ---
Author Organization [facility] Address [address] [place] [address] Care Team Providers Care Formula Checker Name Role Phone Maria R Hermosillo PROFILER OPERATOR Primary Care Provider [phone] Lisa Yan DOOR FRAME BUILDER Unavailable Lisa Yan DOOR FRAME BUILDER Unavailable [phone] Reason for Visit * Reason Onset Date Comments Medications Refill 07/21/2021 Encounter Details Date Type Department Care Team (Late st Contact Info) Description 07/21/2021 Refill [facility] Endocrinology [address] [place] [address] Sheryl More RN Medications Refill Social History [...] Info) Description 01/28/2024 10:30 EDT Office Visit [facility] Endocrinology [address] [place] [address] Lisa Yan NP [address] [place] [address], [place] [phone] documented as of this encounter Visit Diagnoses Not on filedocumented in this encounter Care Teams Formula Checker Relationship Specialty Start Date End Date Maria R Hermosillo FNP [address] [phone] PCP - General Family Medicine - Primary Care 12/03/20 09/25/21 Lisa Yan DOOR FRAME BUILDER [address] [place] [address], [place] [phone] Nurse Practitioner Endocrinology, Diabetes and Metabolism 03/19/21 Lisa Yan NP [address] [place] [phone] Nurse Practitioner Endocrinology, Diabetes and Metabolism 06/06/21 documented as of this encounter
--- OUTSIDE RECORDS SUMMARY | 2023-11-26 19:35 | XMS_ITS | Encounter Summary ---
Author Organization [facility] Address [address] [place] [address] Care Team Providers Care Peoplesoft Hcm Consultant Name Role Phone BayMaria R mcfadden Ana DIRECTOR CORPORATE Primary Care Provider [phone] Lisa Yan ASSISTANT CLINICAL DIRECTOR Unavailable Lisa Yan ASSISTANT CLINICAL DIRECTOR Unavailable Lia Pearson APRN Primary Care Provider [phone] Encounter Details Date Type Department Care Team (Late st Contact Info) Description 05/21/2021 Lab Requisition [facility] Pathology & Laboratory Medicine - [address] [phone] Outr Resulting Lab, Provider Social History Tobacco [...] Description 01/28/2024 10:30 EDT Office Visit [facility] Endocrinology [address] [place], [place] [phone] Lisa Yan NP [address] [facility] [address] [place] [phone] documented as of this encounter Procedures Procedure Name Priority Date/Time Associated Diagnosis Comments T3, TOTAL Routine 05/20/2021 16:52 EST documented in this encounter Results * (ABNORMAL) T3, TOTAL (05/20/2021 16:52 EST) T3, Total 263(H) 97 - 169 ng/dL 05/21/2021 22:09 EST [facility] Blood VENOUS BLOOD / Unknown 05/20/2021 16:52 EST 05/21/2021 21:22 EST Provider Outr Resulting Lab CHEMISTRY & BLOOD GAS ORDERABLES Performing Organization Address City/State/[facility] Co de Phone Number [facility] [address] [place] [address] documented in this encounter Visit Diagnoses Not on filedocumented in this encounter Additional Health Concerns Infection Onset Date Last Indicated Resolved Time COVID-19 12/25/2021 12/25/2021 01/14/2022 22:1 5 EDT documented as of this encounter Care Teams Peoplesoft Hcm Consultant Relationship Specialty Start Date End Date Maria R Hermosillo FNP [address] [phone] PCP - General Family Medicine - Primary Care 12/03/20 09/25/21 Lia Pearson APRN [address] [place] [phone] PCP - General Family Medicine - [facility] 09/26/21 Lisa Yan NP [address] [facility] [address] [place] [phone] Nurse Practitioner Endocrinology, Diabetes and Metabolism 03/19/21 Lisa Yan NP [address] [place] [phone] Nurse Practitioner Endocrinology, Diabetes and Metabolism 06/06/21 documented as of this encounter
--- OUTSIDE RECORDS SUMMARY | 2023-11-26 19:35 | XMS_ITS | Encounter Summary ---
Author Organization [facility] Address [address] [place] [address] Care Team Providers Care Police Communications Dispatcher Name Role Phone Maria R Hermosillo COLLEGE AND CAREER COUNSELOR Primary Care Provider [phone]- [phone] Lisa Yan CIGARETTE CARTON SEALER Unavailable [phone] Reason for Visit * Reason Onset Date Comments Diabetes 2021 Encounter Details Date Type Department Care Team (Late st Contact Info) Description 2021 Telephone [facility] [place] [address] [place] [address] Shari Hsu RN Diabetes Social History Tobacco [...] Notes * Telephone Encounter - Lisa Yan APRN - 2021 1225 EST Okay will wait for f/up to adjust this and verbiage. * Telephone Encounter - Shari Hsu RN - 2021 1139 EST [facility] called - need note addended if appropriate to state pt on a sliding scale 3 x daily andneeds to make adjustments of insulin based on readings (not on a sliding scale ) documented in this encounter Plan of Treatment Upcoming Encounters Date Type Department Care Team (Late st Contact Info) Description 01/28/2024 10:30 EDT Office Visit [facility] Endocrinology [address] [place] [phone] Lisa Yan CIGARETTE CARTON SEALER [address] [place] [phone] documented as of this encounter Visit Diagnoses Not on filedocumented in this encounter Care Teams Police Communications Dispatcher Relationship Specialty Start Date End Date Maria R Hermosillo FNP [address] [address] PCP - General Family Medicine - Primary Care 12/03/20 09/25/21 Lisa Yan CIGARETTE CARTON SEALER [address] [place] [phone] Nurse Practitioner Endocrinology, Diabetes and Metabolism 03/19/21 documented as of this encounter
[2023-11-26 19:40] LABS: Abs Immature Grans 0.02 10^3/uL (0.0-0.06); Absolute Basophil Count 0.02 10^3/uL (0.0-0.2); Absolute Eosinophil Count 0.25 10^3/uL (0.0-0.7); Absolute Lymphocyte Count 2.01 10^3/uL (1.2-3.4); Absolute Monocyte Count 0.28 10^3/uL (0.1-0.8); Absolute Neutrophil Count 4.37 10^3/uL (1.2-6.7); Basophils % 0.3 %; Eosinophils % 3.6 %; HCT 40.4 % (36.0-46.0); HGB 13.2 g/dL (11.2-15.7); Immature Grans % 0.3 %; Lymphocytes % 28.9 %; MCHC 32.7 % (32.0-36.0); MCV 89 fL (80-95); MPV 11.3 fL (8.0-11.0); Neutrophils % 62.9 %; Platelet Count 290 10^3/uL (130-400); RBC 4.55 10^6/uL (3.93-5.22); RDW 12.9 % (11.7-14.6); RDW-SD 41.6 fL; WBC 6.95 10^3/uL (4.4-10.8)
[2023-11-26 19:54] LABS: HCG Qual (Serum) Negative
[2023-11-26 20:00] LABS: ALT 38 U/L (14-59); AST 18 U/L (15-37); Albumin 3.6 g/dL (3.4-5.0); Alkaline Phosphatase 80 U/L (46-116); Anion Gap 11.6 mmol/L (3-11); BUN 10 mg/dL (7-18); Bilirubin, Total 0.29 mg/dL (0.2-1.0); CO2 22.4 mmol/L (21.0-32.0); CREATININE 1.6 mg/dL (0.55-1.02); Calcium 9.1 mg/dL (8.5-10.1); Chloride 108 mmol/L (98-107); Estimated GFR 43.95 (mL/min/1.73m2); Glucose 50 mg/dL (74-106); Lipase 45 U/L (16-77); Magnesium 1.9 mg/dL (1.8-2.4); Potassium 3.7 mmol/L (3.5-5.1); Sodium 142 mmol/L (136-145); Total Protein 8.2 g/dL (6.4-8.2); Troponin I < 50 ng/L (< or =60)
[2023-11-26 20:19] LABS: Bilirubin Negative (Negative); Blood Small (Negative); Clarity Cloudy (Clear); Glucose >=1000 mg/dL (Negative); Ketones Negative (Negative); Leukocyte Esterase Trace (Negative); Nitrite Negative (Negative); Urobilinogen 0.2 mg/dL (Up to 0.2); pH 5.5 (5-8)
[2023-11-26 20:32] LABS: Bacteria Many HPF (Negative); Crystals Negative HPF (Negative); Epithelial Cells Moderate HPF (Negative); Mucus Negative (Negative); Other Cells Few Transitional (Negative); RBC 0-2 HPF (0-2); WBC 20-50 HPF (0-5)
[2023-11-26 20:33] LABS: C & S Indicated? No/Sq. Contamination; Casts 0-2 Fine Granular LPF (Negative)
[2023-11-26 20:36] LABS: *AMPHETAMINES SCREEN URINE Negative (Negative); *BARBITURATES SCREEN URINE Negative (Negative); *BENZODIAZEPINES SCREEN URINE Negative (Negative); Cannabinoids THC Positive (Negative); Cocaine Screen,Urine Negative (Negative); METHADONE URINE SCREEN Negative (Negative); OPIATES URINE SCREEN Negative (Negative)
[2023-11-26 20:47] LABS: Tricyclic Antidepressants Positive (Negative)
[2023-11-26] MEDS: Omnipaque 350 MG/ML 50 ML BTL PO (21:08)
[2023-11-26] MEDS: Normal Saline - Diluent 50 ML VIAL IJ (21:09)
[2023-11-26] MEDS: Breeza Beverage 473 ML BTL PO ×2 (21:09→21:10)
[2023-11-26] MEDS: Omnipaque 350 MG/ML 100 ML BTL IJ (21:10)
--- NOTE | 2023-11-26 21:28 | DI.CT_ITS ---
Exam(s) CT ABDOMEN PELVIS W EXAM: CT ABDOMEN PELVIS W CLINICAL HISTORY: abd pain, n/v, hx of jill en y. TECHNIQUE: Imaging Protocol: Axial computed tomography images with coronal and sagittal reformatted images were created and reviewed CONTRAST MATERIAL: Intravenous: Omnipaque 350 Contrast volume:100 ml Oral: yes common 950 mL Breeza the 50 mL Omnipaque 350 COMPARISON: CT CT CHEST/ABD/PEL W from 07/10/2023 FINDINGS: ABDOMEN and PELVIS: Exam limited by patient body habitus and eccentric positioning within the scanner. Also limited by m otion. Lung Bases: No acute findings. Respiratory motion. Liver: Normal density. No suspicious mass. Gallbladder and biliary tract: Layering sludge. No distinct radiodense calculus. No wall thickening or abnormal distension. No biliary dilation. Pancreas: Normal density. No abnormal calcifications or inflammatory process. No evidence of mass. Spleen: Normal. Kidneys: Normal size, contour and axis. No radiodense stones. No obstructive uropathy. No suspicious masses seen. Adrenal glands: No masses seen. Vasculature: Abdominal aorta non-dilated. Soft tissues: Abnormal soft tissue density again noted at the right upper medial gluteal area. Small amount a in the adjacent left medial gluteal some subcutaneous fat. Similar appearance to prior. N o gas bubbles. No visible destruction of the sacrum or coccyx. Bladder: No gross wall thickening. No calculi.No focal mass. Bowel: Gastric bypass surgery again noted. No obstruction. No bowel wall thickening. Appendix norm al. Peritoneal cavity: No ascites. No focal collection. No mesenteric inflammatory response. Bones: Unremarkable for age. No change in appearance of coccyx with anterior angulation. No definit e bony destruction. Reproductive organs: Uterus enlarged. Lymph nodes: No pathologically enlarged lymph nodes. IMPRESSION:: Similar appearance to abnormal soft tissue density within the right medial upper glutea l region. No air bubbles. No evidence of bony destruction. No acute abnormality within the abdomen or pelvis. RADIATION DOSE DELIVERED: Total DLP DATA REPOSITORY: All CT scans at this facility are submitted to the National Radiology Data Registry (NRDR) Dose Index Registry (DIR) with the [employer] (ACR). RADIATION OPTIMIZATION: All CT scans at this facility use at least one of these dose optimization te chniques: automated exposure control; mA and/or kV adjustment per patient size (includes targeted exa ms where dose is matched to clinical indication); or iterative reconstruction.
[2023-11-26] MEDS: Dextrose 50%-Water 25 GM/50 ML SYR IVP (21:56)
[2023-11-26 22:35] LABS: Troponin I < 50 ng/L (< or =60)
--- NOTE | 2023-11-26 22:57 | DI.VRAD_ITS ---
PROCEDURE INFORMATION: Exam: CT Abdomen And Pelvis With Contrast Exam date and time: 11/26/2023 9:13 PM Age: 33 years old Clinical indication: Abdominal pain; Additional info: Abd pain, n/v, HX of lobo en y TECHNIQUE: Imaging protocol: Computed tomography of the abdomen and pelvis with contrast. Contrast material: OMNI 350; Contrast volume: 100 ml; Contrast route: INTRAVENOUS (IV); Other contrast: Oral, omni 350 , 946; COMPARISON: CT CHEST/ABD/PEL W 07/10/2023 3:11 PM FINDINGS: Lungs: There is heterogeneous attenuation of the pulmonary parenchyma, consistent with air trapping from underlying small airways disease. There are diffuse interstitial infiltrates present. This may represent cardiogenic versus noncardiogenic edema. An acute inflammatory process and/or infectious process/pneumonia are not excluded. Coronary arteries: No evidence of significant coronary artery atherosclerotic plaque or calcification. Liver: There are no focal liver lesions present. Gallbladder and biliary ducts: Probable sludge within the gallbladder lumen. Tiny gallstones cannot be excluded. Consider ultrasound follow-up The gallbladder is otherwise normal. There is no cholelitiasis, wall thickening or pericholecystic fluid to suggest cholecystitis. Pancreas: The pancreas is normal. Spleen: The spleen is normal. Adrenal glands: The adrenal glands are normal. Kidneys and ureters: The kidneys are normal. Stomach and bowel: Surgical changes consistent with Lobo-en-Y the epigastrium. Contrast present within nondilated loops of small bowel no evidence of gastric outlet obstruction. Appendix: A normal appendix is identified. There is no evidence of distention or periappendiceal inflammation to suggest appendicitis. Intraperitoneal space: There is no free intraperitoneal air. There is no evidence of free intraperitoneal or pelvic fluid. Vasculature: The aorta is unremarkable without evidence of significant atherosclerosis or aneurysmal disease. The peripheral arterial vascular system visualized is unremarkable. The portal venous system visualized is unremarkable. The peripheral venous vascular system visualized is unremarkable. Lymph nodes: There are enlarged nonspecific lymph nodes in the mesenteric fat. This nonspecific mesenteric adenitis can be secondary to a variety of bacterial, viral, or other inflammatory processes. Urinary bladder: The bladder is normal. Reproductive: The uterus is normal. The ovaries are normal. Bones/joints: Displacement of the coccyx unchanged likely represents prior fracture. Clinical correlation would be helpful. Soft tissues: Soft tissue mass measuring 6.4 x 5.4 cm with a fluid density present within the right buttock and left buttock, possibility abscess cannot be excluded. This was present previously on 07/10/2023 and is similar in size and appearance. IMPRESSION: 1. There is heterogeneous attenuation of the pulmonary parenchyma, consistent with air trapping from underlying small airways disease. 2. There are diffuse interstitial infiltrates present. This may represent cardiogenic versus noncardiogenic edema. An acute inflammatory process and/or infectious process/pneumonia are not excluded. 3. Probable sludge within the gallbladder lumen. Tiny gallstones cannot be excluded. Consider ultrasound follow-up The gallbladder is otherwise normal. There is no cholelitiasis, wall thickening or pericholecystic fluid to suggest cholecystitis. 4. There are enlarged nonspecific lymph nodes in the mesenteric fat. This nonspecific mesenteric adenitis can be secondary to a variety of bacterial, viral, or other inflammatory processes. 5. Surgical changes consistent with Lobo-en-Y the epigastrium. Contrast present within nondilated loops of small bowel no evidence of gastric outlet obstruction. 6. Soft tissue mass measuring 6.4 x 5.4 cm with a fluid density present within the right buttock and left buttock, possibility abscess cannot be excluded. This was present previously on 07/10/2023 and is similar in size and appearance. Dictated and Authenticated by: Neftali Drake MD. Ordering:MAXX Prince MD
[2023-11-26] MEDS: Amoxicillin 875/Clav. 125 TAB PO (23:36)
[2023-11-26] MEDS: Doxycycline Hyclate 100 MG CAP PO (23:36)
[2023-11-26] MEDS: Ondansetron O.D.T. 4 MG TABEF, 3 TABS/BTL PO (23:36)
[2023-11-26] MEDS: predniSONE 20 MG TAB 60 MG PO (23:36)
--- NOTE | 2023-12-01 12:25 | NUR.NOTE ---
Accessed chart to reconcile [employer] EKG orders with [employer] EKG's in system. Duplicate order cancelled. Nursing Note:
== END 2023-11-26 23:47 | disposition home or self-care (01) ==
PROVIDERS: Emergency Provider Emergency Medicine; PCP Nurse Practitioner Adult Health
DX: E11.65 Type 2 diabetes mellitus with hyperglycemia; R00.0 Tachycardia, unspecified; Z79.4 Long term (current) use of insulin; Z79.84 Long term (current) use of oral 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 drugs; Z98.84 Bariatric surgery status
CPT/HCPCS: 80053; 80307; 82962; 83690; 93005; 96360; 99285; 74177; 81003; 81015; 83735; 84484; 84703; 85025; 93010; 99284; J1790; J3490; J7512; Q9967

== ENCOUNTER 2024-02-13 17:51 | Emergency (ER) | payer MEDICARE, MEDICAID, SELFPAY ==
[2024-02-13] VITALS (30 sets, daily range): BP systolic 101–153; BP diastolic 55–93; PULSE 93–131; RESP 12–28; TEMP 36.8–37.2; O2SAT 95–100
--- NOTE | 2024-02-13 17:45 | RT.EKG_ITS ---
APPROVED REPORT Exam: Resting ECG Reason for Exam: syncope/ SOB Patient Location: E HR:104 bpm ECG Measurements Heart Rate 104 AXIS VT 153 P 47 QRSd 87 QRS 10 QT 335 T 23 QTc 441 Conclusion Sinus tachycardia, rate 104 No interval abnormalities Low voltage precordial leads When compared to priors, no significant morphology changes No STEMI
--- OUTSIDE RECORDS SUMMARY | 2024-02-13 18:01 | XMS_ITS | Encounter Summary ---
[place] [address] Care Team Providers Care Personnel Monitor Name Role Phone Lia Pearson APRN Primary Care Provider [phone] Encounter Details Date Type Department Care Team [...] as of this encounter Plan of Treatment Not on file documented as of this encounter Goals Goal [...] Note: Practice STOP and Urge Surfing. Health Fitter Up will send hand-outs. Movement Lifestyle On track( 023 1:14 PM EDT) Riddhi Buchanan RD Note: Continue to walk stairs and walks when can. Will continue using stairs as it's colder. Look into finding weights free online or at [employer] stores. Could use water-filled milk jugs as weights-a full gallon jug would be 8 lbs. Will look into nearby rec center 04/16/22 NATHALIA documented as of this encounter Visit Diagnoses Not on filedocumented in this encounter Care Teams Personnel Monitor Relationship Specialty Start Date End Date Lia Pearson APRN [address] [place] [address] PCP - General Geriatric Medicine 02/09/22 documented as of this encounter
--- OUTSIDE RECORDS SUMMARY | 2024-02-13 18:01 | XMS_ITS | Encounter Summary ---
Author Organization [facility] [place] [address] Care Team Providers Care Hand Almond Blancher Name Role Phone Lia Pearson FIELD SEISMOLOGIST Primary Care Provider [phone] Encounter Details Date Type Department Care Team (Late st Contact Info) Description 09/02/2023 3:30 PM EDT TH Visit (TeleHealth) [place] [address] Michael Morgan, [facility] [place] [address] Vaginal bleeding Social History Tobacco Use Types Packs/Day Years Used Date Smoking Tobacco: Former Smokeless Tobacco: Never Alcohol Use Standard Drinks/Week Comments Not Currently 0 (1 standard drink = 0.6 oz pur e alcohol) [facility] Utilities Answer Date Recorded In the past 12 months has th e [employer], gas, oil, or water [employer] threatened to shut off services in your [...] place to sleep or slept in a jail (including now)? No 07/13/2023 DH IPV Inpatient [...] MPH Staff Physician - Interventional Radiology Pager [phone] documented in this encounter Plan of Treatment Not on file documented as of this encounter Goals Goal Patient Goal Type Associated Problems Recent Progress Patient-Stated? Author Other (Enter personal goal) Lifestyle On track( 1:14 PM EDT) No Riddhi Wilson RD Note: -Add peanut butter to oatmeal -Continue to add beans to meals as a source of protein and fiber -If can, buy fresh vegetables and fruit from [employer]-sent message with resources -Choose whole grain options if available -When having a snack, focus on protein Bariatric behaviors Lifestyle On track( 1:14 PM EDT) No Riddhi Wilson RD [...] Note: Practice STOP and Urge Surfing. Health Barrel Inspector Tight will send hand-outs. Movement Lifestyle On track(08/03/2 023 1:14 PM EDT) Riddhi Buchanan RD Note: Continue to walk stairs and walks when can. Will continue using stairs as it's colder. Look into finding weights free online or at [employer] stores. Could use water-filled milk jugs as weights-a full gallon jug would be 8 lbs. Will look into nearby rec center 04/16/22 NATHALIA documented as of this encounter Visit Diagnoses Diagnosis Vaginal bleeding Other specified noninflammatory disorder of vagina documented in this encounter Care Teams Hand Almond Blancher Relationship Specialty Start Date End Date Lia Pearson APRN [address] [place] [address] PCP - General Geriatric Medicine 02/09/22 documented as of this encounter
--- OUTSIDE RECORDS SUMMARY | 2024-02-13 18:01 | XMS_ITS | Encounter Summary ---
Author Organization [facility] Address [facility] [place] [address] Care Team Providers Care Automobile Upholsterer Name Role Phone Lia Pearson APRN Primary Care Provider [phone] Encounter Details Date Type Department Care Team (Late st Contact Info) Description 06/08/2023 Telephone [place] [address] Kati Shea PA [facility] [address] Social History Tobacco Use Types Packs/Day Years [...] some were sent to the pharmacy at [facility] and some were sent to [facility] in [place], [place]. Zenia told me she was able to greens picker Zofran, omeprazole, and stool softeners at [facility] but was not able to greens picker oxycodone (confirmed with [place] PDMP check). She called [facility] and they informed her that her prescriptions [...] can, buy fresh vegetables and fruit from [employer] market-sent message with resources -Choose whole grain [...] Note: Practice STOP and Urge Surfing. Health Auth Specialist will send hand-outs. Movement Lifestyle On track( 023 1:14 PM EDT) Riddhi Buchanan RD Note: Continue to walk stairs and walks when can. Will continue using stairs as it's colder. Look into finding weights free online or at [employer] stores. Could use water-filled milk jugs as weights-a full gallon jug would be 8 lbs. Will look into nearby rec center 04/16/22 NATHALIA documented as of this encounter Visit Diagnoses Not on filedocumented in this encounter Care Teams Automobile Upholsterer Relationship Specialty Start Date End Date Lia Pearson APRN [address] [place] [address] PCP - General Geriatric Medicine 02/09/22 documented as of this encounter
--- OUTSIDE RECORDS SUMMARY | 2024-02-13 18:01 | XMS_ITS | Encounter Summary ---
[place] [address] Care Team Providers Care Client Coordinator Name Role Phone Lia Pearson APRN Primary Care Provider [phone] [phone] Encounter Details Date Type Department Care Team (Late st Contact Info) Description 06/10/2023 Telephone [place] [phone] Lidya Elise, RN Social History Tobacco Use [...] can, buy fresh vegetables and fruit from [employer] market-sent message with resources -Choose whole grain [...] Note: Practice STOP and Urge Surfing. Health Table Games Dual Rate Supervisor will send hand-outs. Movement Lifestyle On track( 1:14 PM EDT) Riddhi Buchanan RD Note: Continue to walk stairs and walks when can. Will continue using stairs as it's colder. Look into finding weights free online or at [employer] stores. Could use water-filled milk jugs as weights-a full gallon jug would be 8 lbs. Will look into nearby rec center 04/16/22 documented as of this encounter Visit Diagnoses Not on filedocumented in this encounter Care Teams Client Coordinator Relationship Specialty Start Date End Date Lia Pearson APRN [address] [place] [address] PCP - General Geriatric Medicine 02/09/22 documented as of this encounter
--- OUTSIDE RECORDS SUMMARY | 2024-02-13 18:01 | XMS_ITS | Clinical Summary ---
Author Organization [facility] Address [facility] [place] [address] Care Team Providers Care Hotel Valet Attendant Name Role Phone Lia Pearson SOFT SUGAR OPERATOR HEAD Primary Care Provider Allergies Active Allergy Reactions [...] hours as needed for Pain. 06/05/2023 Active Farxiga 5 mg tablet Take 5 [...] mg twice daily with food. Switch to Moka G7 CGM if able, use phone as [...] Encounters Date Type Department Care Team Description 12/20/2023 [place] [address] Kati Shea PA from Last 3 Months Family History Medical History Relation Comments Breast Cancer Neg Hx Ovarian Cancer Neg Hx Uterine Cancer Neg Hx Social History Tobacco Use Types Packs/Day Years Used Date Smoking Tobacco: Former Smokeless Tobacco: Never Tobacco Cessation:Counseling Given: Not Answered Alcohol Use Standard Drinks/Week Comments Not Currently 0 (1 standard drink = 0.6 oz pur e alcohol) [facility] Utilities Answer Date Recorded In [...] place to sleep or slept in a fpc (including now)? No 07/13/2023 IPV Inpatient Questions [...] 07/12/2023 1:54 AM EST Plan of Treatment Health Maintenance Due Date Last Done Comments Pneumococcal Vaccine: At-Ris k 5-64yrs (1 of 2 - PCV) 1998 DM Opthalmology Exam 2002 DM Urine Microalbumin yearly 2002 HIV screen 2010 Hepatitis C Screening 2010 Hepatitis B vaccine (0-59 yr s) (1) 2011 Tetanus/Diphtheria/Pertussis Vaccines (1 - Tdap) 2011 DM Hemoglobin A1c 6 month 01/10/20242023, 10/15/2022, 11/12/2021 Covid-19 Vaccine (1 - 2022-2 4 season) 2024 Influenza (Flu) vaccine (1 o f 1 [...] can, buy fresh vegetables and fruit from [employer] market-sent message with resources -Choose whole grain [...] Note: Practice STOP and Urge Surfing. Health Construction Foreman will send hand-outs. Movement Lifestyle On track( 023 1:14 PM EDT) Riddhi Buchanan RD Note: Continue to walk stairs and walks when can. Will continue using stairs as it's colder. Look into finding weights free online or at [employer] stores. Could use water-filled milk jugs as weights-a full gallon jug would be 8 lbs. Will look into nearby rec center 04/16/22 Medical Devices Implanted Type Area Tape Duplicator Device Identifier Shelf Expiration Date Model / Serial / Lot Mirena Implanted:Qty : 1 on 03/03/2022 by Sabrina Swain MD at N [facility] IMPLANTS Midline: Uterus [employer] RANDY - AMERISOURC 11/15/2023 [id number] / [id number] / [id number] Procedures Procedure Name Priority Date/Time Associated Diagnosis Comments BASIC METABOLIC PANEL Routine 07/14/2023 12:31 AM EST HEMOGLOBIN A1C Routine 07/12/2023 5:58 AM EST C EXTERNAL LABS 2 Routine 07/07/2022 HPV Routine 03/03/2022 8:39 AM EDT AIR ANALYSIS TECHNICIAN CYTOLOGY FINAL REPORT Routine 03/03/2022 8:39 AM EDT from Last 3 Months or Most Recently Relevant to Health Maintenance Results * Basic Metabolic Panel (non-fasting) (07/14/2023 12:31 AM EST) Glucose 100 65 - 199 mg/dL [facility] Comment:Diabetes: >=200 mg/d L plus symptoms Blood Urea Nitrogen 9 8 - 18 mg/dL [facility] Creatinine 0.73 0.70 - 1.20 mg/dL [facility] Sodium 139 135 - 145 mmol/L [facility] Potassium 3.7 3.5 - 5.0 mmol/L [facility] Comment: Please note: ??Patients with WBC >100,000 may have falsely elevated Potassium levels. ??For accurate Potassium quantification in these patients send serum separator tube (gold top) for subsequent determinations. ??Contact the Clinical Chemistry Laboratory if there are any questions. Chloride 104 98 - 107 mmol/L [facility] Carbon Dioxide 26 22 - 31 mmol/L [facility] Anion Gap 9 5 - 15 mmol/L [facility] Calcium 8.9 8.5 - 10.5 mg/dL [facility] Est Glomerular Filtration Rate 113 >=60 mL/min/1. 73 m?? [facility] Comment: This patient's estimated GFR [...] In Lab Gee Contreras MD CHEMISTRY ORDERABLES [facility] [place] [address] * (ABNORMAL) Hemoglobin A1c (07/12/2023 5:58 AM EST) Hemoglobin A1c 7.5(H) 4.3 - 5.6 % [facility] Comment: Reference Range: 4.3 - [...] Mellitus, Diabetes Care 2013; 36: Suppl. 1, S67-69 Estimated Average Glucose 170 mg/dL [facility] Blood 07/12/2023 5:58 AM EST 07/12/2023 6:37 AM EST Narrative Resulting Agency Comment Spec In Lab Gee Contreras MD CHEMISTRY ORDERABLES [facility] [place] [address] * (ABNORMAL) [facility] 2 - External (07/07/2022) Cholesterol, Total 162 Triglyceride 132 HDL Cholesterol 44 LDL Cholesterol 92 Glucose 163(H) Sodium 141 Potassium 4.4 Chloride 105 Carbon Dioxide 26 Blood Urea Nitrogen 15 Creatinine 1.2(H) Est Glomerular Filtration Rate 62.45 Aspartate Aminotransferase 21 Alanine Aminotransferase 38 Vitamin D Total 25 OH 14.2(L) Thyroid Stimulating Hormone 1.6 Hemoglobin 12.3 Hematocrit 39.2 White Blood Cell 8.3 Platelet 410(H) 07/07/2022 Historical Provider EXTERNAL LAB MARTI CASILLAS * HPV (03/03/2022 8:39 AM EDT) HPV16 NEGATIVE NEGATIVE [facility] HPV [...] In Lab Sabrina Swain MD PATHOLOGY/CYTOLOGY O RDERABLES [facility] [place] [address] * Hydroelectric Plant Structural Engineer Cytology Final Report (03/03/2022 8:39 AM EDT) Hydroelectric Plant Structural Engineer Cytology Final Report [id number] ? Location: [place]; [facility]; A The signing pathologist has (i) examined the relevant preparation(s) for the specimen(s) and (ii) rendered or confirmed the diagnosis(es). . ? Hydroelectric Plant Structural Engineer Final DIAGNOSIS Normal Negative for intraepithelial lesion or malignancy (NILM). For consensus guidelines for the management of cervical cancer screening test results, please see: ?? [email or web address] . Electronically signed by: ?Alfredito MONTELONGO(ASCP) Sidra Verified: ??03/12/2022 11:33 ??Frame Repairer Performed at: ??-[facility] Dept. of Pathology, [facility] [place], [place] DISCUSSION Scant cellularity. Partially obscuring blood. HPV [...] Clinical Genomics and Advanced Technology (CGAT) at [facility]. ? - Jeromy Kam, PhD, LTAC, [facility], Director-[facility] STATEMENT OF ADEQUACY Specimen submitted is satisfactory. Endocervical component present. CLINICAL INFORMATION HPV Option: ?Concurrent HPV and Pap CT/NG Option: ?Yes Preparation: ? Liquid based Pap Specimen Source: ? Cervical/Endocervi qing LMP: ? Unknown Hysterectomy: ?No : ?No : ?No I.U.D.: ?No Pelvic Radiation: ?No Hist Abnl Pap/Biopsy: ?No Prior AIR ANALYSIS TECHNICIAN Therapy: ? No . CLINICAL INFORMATION Hist of HPV Vaccine: ? No ICD Diagnosis: ? Z12.4 Encounter for screening for malignant neoplasm of cervix Clinical Data, Significant Therapy and Clinical Impression ?? : ?(not provided) Note: The Pap test is a screening test for cervical cancer with an inherent false-negative rate dependent upon several variables. For further information please contact the [facility] Laboratory. Reference: Paula CLEMENTS. Actuary Manager of Pap Smear Results. In: Aruna BS, Jorge Luis SKINNER, ed. The Pap Smear. [place]: Alexander, 2002: 71-77. [facility] 03/03/2022 8:39 AM EDT Sabrina Swain MD PATHOLOGY/CYTOLOGY O RDERABLES [facility] [place] [address] from Last 3 Months or Most Recently [...] Status decision made by: Patient Care Teams Hotel Valet Attendant Relationship Specialty Start Date End Date Lia Pearson APRN [address] [place] [address] PCP - General Geriatric Medicine 02/09/22
--- OUTSIDE RECORDS SUMMARY | 2024-02-13 18:01 | XMS_ITS | Encounter Summary ---
Author Organization [facility] Address [facility] [place] [address] Care Team Providers Care Welt Beater Name Role Phone GeorgesLia Toribio MEDICAL I D SALES Primary Care Provider [phone] [phone] Encounter Details Date Type Department Care Team (Late st Contact Info) Description 11/08/2023 Orders Only Obstetrics [place] [address] Angelina Florian, CCMA Abnormal uterine bleeding (AUB) Social History Tobacco Use Types Packs/Day Years Used Date Smoking Tobacco: Former Smokeless Tobacco: Never Alcohol Use Standard Drinks/Week Comments Not Currently 0 (1 standard drink = 0.6 oz pur e alcohol) [facility] Utilities Answer Date Recorded In the past 12 months has e electric, gas, oil, or water [employer] threatened to shut off services in your [...] can, buy fresh vegetables and fruit from [employer] market-sent message with resources -Choose whole grain [...] Note: Practice STOP and Urge Surfing. Health Relationship Banker will send hand-outs. Movement Lifestyle On track( 023 1:14 PM EDT) Riddhi Buchanan RD Note: Continue to walk stairs and walks when can. Will continue using stairs as it's colder. Look into finding weights free online or at [employer] stores. Could use water-filled milk jugs as weights-a full gallon jug would be 8 lbs. Will look into nearby rec center 04/16/22 NATHALIA documented as of this encounter Visit Diagnoses Diagnosis Abnormal uterine bleeding (AUB) documented in this encounter Care Teams Welt Beater Relationship Specialty Start Date End Date Lai Pearson APRN [address] [place] [address] PCP - General Geriatric Medicine 02/09/22 documented as of this encounter
--- OUTSIDE RECORDS SUMMARY | 2024-02-13 18:01 | XMS_ITS | Encounter Summary ---
[place] [address] Care Team Providers Care Mud Analysis Operator Name Role Phone Lia Pearson TALENT ASSISTANT Primary Care Provider Encounter Details Date Type Department Care Team (Late st Contact Info) Description 07/09/2023 [place] [phone] Valentine Ramirez Social History Tobacco Use Types [...] can, buy fresh vegetables and fruit from [employer] market-sent message with resources -Choose whole grain [...] Note: Practice STOP and Urge Surfing. Health Formula Mixer will send hand-outs. Movement Lifestyle On track( 1:14 PM EDT) Riddhi Buchanan RD Note: Continue to walk stairs and walks when can. Will continue using stairs as it's colder. Look into finding weights free online or at [employer] stores. Could use water-filled milk jugs as weights-a full gallon jug would be 8 lbs. Will look into nearby [facility] 04/16/22 documented as of this encounter Visit Diagnoses Not on filedocumented in this encounter Care Teams Mud Analysis Operator Relationship Specialty Start Date End Date Lia Pearson APRN [address] [place] [address] PCP - General Geriatric Medicine 02/09/22 documented as of this encounter
--- OUTSIDE RECORDS SUMMARY | 2024-02-13 18:01 | XMS_ITS | Encounter Summary ---
Author Organization [facility] [place] [address] Care Team Providers Care Wildland Firefighter Name Role Phone Lia Pearson APRN Primary Care Provider [phone] Encounter Details Date Type Department Care Team (Late st Contact Info) Description 08/16/2023 Telephone [place] [phone] Sonal Puga, RN Social History Tobacco Use Types Packs/Day Years Used Date Smoking Tobacco: Former Smokeless Tobacco: Never Alcohol Use Standard Drinks/Week Comments Not Currently 0 (1 standard drink = 0.6 oz pur e alcohol) [facility] Utilities Answer Date Recorded In the [...] (on norethindrone), HFpEF. 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 Hospital Course: Zenia Worley is a 33 y.o. female who was admitted backup engineer on 07/12/2023 for the above condition. She [...] BM's. Per Zenia, labs were drawn at [facility] in [place], [place] yesterday by her PCP. Her PCP [...] able to request her lab results from [facility] and that this may not be related [...] can, buy fresh vegetables and fruit from Pricing Assistant-sent message with resources -Choose whole grain options [...] Note: Practice STOP and Urge Surfing. Health Change Agent will send hand-outs. Movement Lifestyle On track( 023 1:14 PM EDT) Riddhi Buchanan RD Note: Continue to walk stairs and walks when can. Will continue using stairs as it's colder. Look into finding weights free online or at [employer] stores. Could use water-filled milk jugs as weights-a full gallon jug would be 8 lbs. Will look into nearby rec center 04/16/22 NATHALIA documented as of this encounter Visit Diagnoses Not on filedocumented in this encounter Care Teams Wildland Firefighter Relationship Specialty Start Date End Date Lia Pearson APRN [address] [place] [address] PCP - General Geriatric Medicine 02/09/22 documented as of this encounter
--- OUTSIDE RECORDS SUMMARY | 2024-02-13 18:01 | XMS_ITS | Encounter Summary ---
[place] [address] Care Team Providers Care Typo Machine Operator Name Role Phone GeorgesLia Toribio HARDWARE ASSEMBLER Primary Care Provider [phone] Encounter Details Date Type Department Care Team (Late st Contact Info) Description 07/16/2023 [place] [phone] Valentine Ramirez Social History Tobacco Use Types Packs/Day Years Used Date Smoking Tobacco: Former Smokeless Tobacco: Never Alcohol Use Standard Drinks/Week Comments Not Currently 0 (1 standard drink = 0.6 oz pur e alcohol) [facility] Utilities Answer Date Recorded In the past 12 months has th e electric, gas, oil, or water [employer] threatened to shut off services in your [...] place to sleep or slept in a fci (including now)? No 07/13/2023 DH IPV Inpatient [...] Note: Practice STOP and Urge Surfing. Health Braille Typist will send hand-outs. Movement Lifestyle On track( 023 1:14 PM EDT) Riddhi Buchanan RD Note: Continue to walk stairs and walks when can. Will continue using stairs as it's colder. Look into finding weights free online or at [employer] stores. Could use water-filled milk jugs as weights-a full gallon jug would be 8 lbs. Will look into nearby rec center 04/16/22 NATHALIA documented as of this encounter Visit Diagnoses Not on filedocumented in this encounter Care Teams Typo Machine Operator Relationship Specialty Start Date End Date Lia Pearson APRN [address] [facility] [facility] [address] [place] [address] PCP - General Geriatric Medicine 02/09/22 documented as of this encounter
--- OUTSIDE RECORDS SUMMARY | 2024-02-13 18:01 | XMS_ITS | Encounter Summary ---
Author Organization [facility] Address [facility] [place] [address] Care Team Providers Care Bodywork Therapist Name Role Phone Lia Pearson APRN Primary Care Provider [phone] Reason for Visit * Reason Comments Medication Refill Encounter Details Date Type Department Care Team (Late st Contact Info) Description 12/20/2023 Refill [place] [address] Kati Shea PA [facility] [place] [address] Social History Tobacco Use Types Packs/Day Years Used Date Smoking Tobacco: Former Smokeless Tobacco: Never Alcohol Use Standard Drinks/Week Comments Not Currently 0 (1 standard drink = 0.6 oz pur e alcohol) [facility] Utilities Answer Date Recorded In the past 12 months has [employer] e LOC[employer]ALL, gas, oil, or water [employer] threatened to shut off services in your [...] place to sleep or slept in a usp (including now)? No 07/13/2023 DH IPV Inpatient [...] can, buy fresh vegetables and fruit from [employer] market-sent message with resources -Choose whole grain [...] Note: Practice STOP and Urge Surfing. Health Sales And In Home Delivery Specialist will send hand-outs. Movement Lifestyle On track( 023 1:14 PM EDT) Riddhi Buchanan RD Note: Continue to walk stairs and walks when can. Will continue using stairs as it's colder. Look into finding weights free online or at [employer] stores. Could use water-filled milk jugs as weights-a full gallon jug would be 8 lbs. Will look into nearby rec center 04/16/22 NATHALIA documented as of this encounter Visit Diagnoses Not on filedocumented in this encounter Care Teams Bodywork Therapist Relationship Specialty Start Date End Date Lia Pearson APRN [address] [place] [address] PCP - General Geriatric Medicine 02/09/22 documented as of this encounter
--- OUTSIDE RECORDS SUMMARY | 2024-02-13 18:01 | XMS_ITS | Encounter Summary ---
Author Organization [facility] [place] [address] Care Team Providers Care Coroner Forensic Technician Name Role Phone GeorgesLia Toribio INGREDIENT HANDLER Primary Care Provider [phone] Reason for Visit * Auth/Cert (Routine) Specialty Diagnoses / Procedures Referred By Della kern Referred To Contact Diagnoses Gastric anastomotic stricture persistent nausea/ vomitting Gee Contreras MD [facility] [address] [facility] Referral ID Status Reason Start Date Expiration Date Visits Re quested Visits Authorized [id number] 1 1 Encounter Details Date Type Department Care Team (Latest Contact Info) Description 07/12/2023 1:41 AM EST - 07/14/2023 3:20 PM [facility] Hospital Encounter [place] [address] Gee Contreras MD [facility] [place] [address] Hypertensive crisis; Chronic back pain, unspecified back location, unspecified back pain laterality; Unstable gait Discharge Disposition: Home Social History Tobacco Use Types Packs/Day Years Used Date Smoking Tobacco: Former Smokeless Tobacco: Never Alcohol Use Standard Drinks/Week Comments Not Currently 0 (1 standard drink = 0.6 oz pur e alcohol) [facility] Utilities Answer Date Recorded In the [...] place to sleep or slept in a nursing home (including now)? No 07/13/2023 DH IPV Inpatient [...] included. General Surgery Discharge Summary Patient Name: Zenia Worley Patient Age: 33 y.o. : 1990 Attending Physician: Gee Contreras MD Date of Admission: 07/12/2023 Date of Discharge: 07/14/2023 Reason for admission: nausea and vomiting Primary Diagnosis: nausea and vomiting Secondary Diagnosis: Patient Active Problem List Diagnosis Code Essential hypertension, benign I10 Long-term insulin use Z79.4 joint terminal attack controller 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 Z79.84 [...] (on norethindrone), HFpEF. She was transferred from [facility] 07/12/2023 for nausea and vomiting with imaging concerning for stenosis at the GJ and/or JJ anastomosis. Hospital Course: Zenia Worley is a 33 y.o. female who was admitted security sme on 07/12/2023 for the above condition. She [...] 217 228 231 Recent Labs 07/14/23 0031 07/13/23 0228 07/12/23 0558 NA 139 138 144 K [...] 06/03/23 ?GJ stenosis, s/p LRYGB 06/03/23 TECHNIQUE: Research Instrumentation Technician AP supine radiographs of the abdomen for initially planned fluoroscopic GI series, total 5 images. COMPARISON: Portable AP supine radiographs of the abdomen from earlier same day, 07/12/2023 at 4979-0695 hours 07/12/2023 CT chest, abdomen, and pelvis 07/10/2023 from [facility] FINDINGS: Surgical clips and anastomotic chain [...] who have questions please contact the health clinical care coordinator that requested your imaging first. Electronically signed by: Josselin Ramirez MD, [facility] ([phone]), at 07/12/2023 5:31 PM XR Abdomen 1 [...] who have questions please contact the health clinical care coordinator that requested your imaging first. Electronically signed by: Jamila Ny MD, [facility] ([phone]), at 07/12/2023 7:30 AM Film Library- Storage [...] RD; Asiya Giraldo APRN General Surgery at [facility] Arrive at: Wiping Cloth Cutter Area [phone] Instructions Given to Patient at Discharge: Patient Instructions Discharge Instructions New Medications to Nitric Acid Plant Operator at [facility] in [facility]: Insulin lispro (HumaLOG) 100 units/mL Losartan (Cozaar) [...] - 5pm): General Surgery and Bariatric Surgery [phone] Bariatric Surgeons: Everton Arredondo, Trus [phone] Garbage Collection Supervisor: [phone] Dietitians: [phone] Outside of regular business hours, including weekends and holidays: Ask for General Surgery resident oracle fusion developer [phone] Please note, this call will be answered [...] you have a BM. Follow-up: Please call [phone] (clinic number for appointments) to confirm or change the date and time of your appointment. Future Appointments Date Time Provider Department Center 09/24/2023 1:00 PM Asiya Giraldo APRN [facility] SURG [facility] General Instructions Diabetes Discharge Instructions [...] are needing this frequently, talk to your Guest Relations Coordinator about next steps. BG 200 - 240 [...] RD; Asiya Giraldo APRN General Surgery at [facility] Arrive at: [employer] Cutter Area [phone] Signed: DIANE Brown Bariatric Surgery 12:51 PM 07/14/23 Service pager: [phone] [place] Physician: Lia Pearson, INGREDIENT HANDLER [phone] [id number] documented in this encounter Discharge Instructions * Discharge Instructions* Beba Lin, INGREDIENT HANDLER - 07/14/2023 9:19 AM EST Diabetes Discharge [...] are needing this frequently, talk to your Guest Relations Coordinator about next steps. BG 200 - 240 [...] AM EST Discharge Instructions New Medications to Nitric Acid Plant Operator at [facility] in [facility]: Insulin lispro (HumaLOG) 100 units/mL Losartan (Cozaar) [...] - 5pm): General Surgery and Bariatric Surgery [phone] Bariatric Surgeons: Everton Arredondo Trus [phone] Garbage Collection Supervisor: [phone] Dietitians: [phone] Outside of regular business hours, including weekends and holidays: Ask for General Surgery resident oracle fusion developer [phone] Please note, this call will be answered [...] you have a BM. Follow-up: Please call [phone] (clinic number for appointments) to confirm or change the date and time of your appointment. Future Appointments Date Time Provider Department Center 09/24/2023 1:00 PM Asiya Giraldo APRN [facility] SURG [facility] documented in this encounter Medications at Time of Discharge Medication Sig Dispensed Refills Start Date End Date Farxiga 5 mg tablet Take 5 mg by mouth Daily. 06/01/2023 acetaminophen (Tylenol) 325 mg tablet Take 2 tablets by mouth every 6 hours as needed for Pain. 06/05/2023 hydrOXYzine (Vistaril) 25 mg capsule Take 25 mg by mouth 3 times daily as needed. 05/18/2023 rosuvastatin (Crestor) 40 mg tablet Take 1 tablet by mouth nightly. 02/26/2023 ARIPiprazole (Abilify) 20 mg tablet TAKE ONE TABLET BY MOUTH EVERY DAY FOR SCHIZOAFFECTIVE DISORDER, BIPOLAR TYPE 02/15/2023 chlorproMAZINE (Thorazine) 100 mg tablet 02/18/2023 metoprolol succinate XL (Toprol-XL) 100 mg ER [...] mouth 2 times daily. 90 capsule 12/19/2021 ferrous gluconate 324 mg (38 mg iron) Tablet Take 324 mg by mouth 2 times daily. 11/22/2021 levothyroxine (Synthroid) 200 mcg Tablet Take 200 mcg by mouth Daily. 06/09/2021 metFORMIN XR (Glucophage XR) 500 mg Tablet Sustained Release 24 hr Take 1,000 mg by mouth 2 times daily. 10/15/2021 prazosin (Minipress) 5 mg CapsuleIndications :post traumatic stress disorder Take 10 mg by mouth nightly. Indications: posttraumatic stress syndrome 11/07/2021 insulin lispro (HumaLOG) 100 unit/mL Solution Inject [...] by mouth daily. 60 capsule 2 07/14/2023 polyethylene glycoL (Miralax) 17 gram/dose Powder Take 17 g by mouth daily. 255 g 06/25/2023 methocarbamoL (Robaxin) 500 mg tablet 01/14/2023 furosemide (Lasix) 20 mg tablet TAKE 1 TO 2 TABLETS BY MOUTH EVERY MORNING 02/09/2023 glucose 4 gram Tablet, Chewable CHEW ONE TABLET BY MOUTH EVERY 10 MIN. NEEDED FOR HYPOGLYCEMIA UNTIL SYMPTOMS OF LOW BLOOD SUGAR ARE CONTROLLED 11/21/2021 BD AutoShield Duo Pen Needle 30 gauge x 3/16 Needle USE UP TO 5 PEN NEEDLES DAILY 10/31/2021 ursodioL (Actigall) 300 mg capsule Take 1 capsule by mouth 2 times daily for 180 days. 180 capsule 1 06/17/2023 12/14/2023 norethindrone (Aygestin) 5 mg tabletIndications: Abnormal uterine bleeding (AUB) Take 2 tablets by mouth 3 times daily. 180 tablet 6 10/15/2022 07/16/2023 documented as of this encounter Progress Notes * Beba Lin, INGREDIENT HANDLER - 07/14/2023 10:00 AM EST Images from the original note were not included. Glucose Management Team Inpatient Progress Note HPI Zenia Worley is a 33 y.o. female from [place], [place], with PMH significant for HFpEF, HTN, obesity, RICHMOND, DM, schizophrenia, RNY Gastric bypass, who was admitted on 07/12/2023 after transfer from [facility], currently being treated for N/V [...] gastric bypass diet Monitoring: BG Q4 Discharge Planning/joint terminal attack controller diabetes care: Medications - Outpatient treatment regimen [...] the consulting service. Beba Lin APRN, DNP, [facility] Inpatient Diabetes Management Team Team pager #[phone] Diabetes Discharge Instructions & Recommendations Check blood [...] are needing this frequently, talk to your Guest Relations Coordinator about next steps. BG 200 - 240 [...] juice or regular (not diet) soda 6 [employer] small box of raisins 4 glucose tablets [...] (on norethindrone), HFpEF. She was transferred from [facility] 07/12/2023 for nausea and vomiting with imaging [...] Suresh Terrell MD 50 mg at 07/14/23 09 metoproloL tartrate (Lopressor) tablet 25 mg 25 [...] vial 1-6 Units 1-6 Units Subcutaneous Q4H [facility] Suresh Terrell MD Physical Exam: General: [...] 06/03/23 ?GJ stenosis, s/p LRYGB 06/03/23 TECHNIQUE: Research Instrumentation Technician AP supine radiographs of the abdomen for initially planned fluoroscopic GI series, total 5 images. COMPARISON: Portable AP supine radiographs of the abdomen from earlier same day, 07/12/2023 at 3522-4791 hours 07/12/2023 CT chest, abdomen, and pelvis 07/10/2023 from [facility] FINDINGS: Surgical clips and anastomotic chain [...] who have questions please contact the health clinical care coordinator that requested your imaging first. Electronically signed by: Josselin Ramirez MD, [facility] ([phone]), at 07/12/2023 5:31 PM XR Abdomen 1 [...] who have questions please contact the health clinical care coordinator that requested your imaging first. Electronically signed by: Jamila Ny MD, [facility] ([phone]), at 07/12/2023 7:30 AM Film Library- Storage [...] Surgery 9:27 AM 07/14/23 MIS service pager: [phone] * Kati Shea PA - 07/13/2023 9:35 AM EST Minimally Invasive Surgery Inpatient Progress Note ID: Zenia Worley is a 33 y.o. female with h/o IDDM2, morbid obesity s/p lap Vernell-en-Y gastric bypass 06/03/2023 ([facility]), hypertension, RICHMOND (on CPAP), hypothyroidism, metabolic syndrome, PTSD, schizoaffective disorder, DID, AUB (on norethindrone), HFpEF. She was transferred from [facility] 07/12/2023 for nausea and vomiting with imaging [...] 07/13 0700 In: 1969 [P.O.:240; I.V.:1731] Out: 1824 [Urine:182] Intake and Output: I/O last 3 [...] Nightly Suresh Terrell MD 300 mg at 07/12/232013 sodium chloride 0.9 % (flush) (BD PosiFlush [...] infusion Suresh Terrell MD Stopped at 07/12/23 2244 Physical Exam: General: awake, alert, no acute distress, flat affect HEENT: atraumatic, normocephalic, PERRLA, anicteric sclera CVS: RRR on monitor Pulm: unlabored breathing on CPAP Abd: soft, nontender, non-distended : no sierra Skin: warm, dry Ext: warm, well perfused, no jaundice, no cyanosis Recent Labs 07/13/2322707/12/23 0558 WBC 4.5 5.2 HGB 11.7 12.1 HCT 35.5* 38.2 PLATELET 228 231 Recent Labs 07/13/2322707/12/23 0558 NA 138 144 K 3.6 3.3* [...] 06/03/23 ?GJ stenosis, s/p LRYGB 06/03/23 TECHNIQUE: Research Instrumentation Technician AP supine radiographs of the abdomen for initially planned fluoroscopic GI series, total 5 images. COMPARISON: Portable AP supine radiographs of the abdomen from earlier same day, 07/12/2023 at 4798-5587 hours 07/12/2023 CT chest, abdomen, and pelvis 07/10/2023 from [facility] FINDINGS: Surgical clips and anastomotic chain [...] who have questions please contact the health clinical care coordinator that requested your imaging first. Electronically signed by: Josselin Ramirez MD, [facility] ([phone]), at 07/12/2023 5:31 PM XR Abdomen 1 [...] who have questions please contact the health clinical care coordinator that requested your imaging first. Electronically signed by: Jamila Ny MD, [facility] ([phone]), at 07/12/2023 7:30 AM Film Library- Storage Only CT Chest Abdomen Pelvis Result Date: 07/10/2023 This exam is auto-finalizing. It's purpose is for storage only. Assessment: Zenia Worley is a 33 y.o. female with h/o morbid obesity s/p lap gastric bypass 06/03, IDDM2, hypertension, HFpEF, and others as above who was admitted in transfer from [facility] for managementof N/V in the setting of [...] Surgery 9:59 AM 07/13/23 MIS service pager: [phone] * Linette Boothe RN - 07/12/2023 10:12 PM EST chute puller reached out to [employer] to let them know that the patient's BP was 222/106 and that the patient was symptomatic. [facility] wanted to know what the MD had to say. Primary RN spoke with MD prior to me reaching out to [employer] and the MD wanted to check BP in all 4 limbs and try and get a BP under 170. BP was checked in all 4 limbs and SBP was well over 200. chute puller informed [employer] that we checked all 4 limbs and it was still over 200. [employer] wanted to know what the MD wanted to do, per MD who spoke with his senior he wanted to give the patient 80mg of Labetalol IV.chute puller spoke with [employer] who said we should not push 80 of Labetalol on the floor. 15mg of Hydralazine was ordered IV and if not change in the BP in one hour patient would need to be moved to ISCU for Nicardipine gtt. chute puller gave IV Hydralazine at 2141. * Suresh [...] Thomas MD 07/12/23 MIS [id number] * Kory Pereyra RCP - 07/12/2023 4:51 AM EST Respiratory Therapy NIV Note Zenia Worley is a 33 y.o. female with a past medical history of T2DM, PTSD, schizoaffective disorder, morbid obesity status post Vernell-en-Y procedure 06/03/2023 who presents to [facility] on 07/12/2023 as a direct transfer from [facility] for gastric fistula. NIV Settings: NIV Mode: [...] Vt and is unable to obtain hers. Koyr Pereyra RCP documented in this encounter H&P Notes * Suresh Terrell MD - 07/12/2023 2:56 AM EST Minimally Invasive Surgery Admission History & Physical Patient Name: Zenia Worley MR#: [id number] : 1990 Admission Date: 07/12/2023 Indication for Admission: Gastric anastomotic stricture History of Present Illness: Zenia Worley is a 33 y.o. female with a past medical history of T2DM, PTSD, schizoaffective disorder, morbid obesity status post Vernell-en-Y procedure 06/03/2023 who presents to [facility] on 07/12/2023 as a direct transfer from [facility] for gastric fistula. Patient reports that 07/10/2023 she was having nausea and vomiting and presented to the emergency department at [facility]. CT scan of her abdomen was done at this time and was initially read as negative for any significant findings. She was found to have a low blood sugar with a wish to admit her, though she decided to go home and leave A. Yesterday 07/11/2023 she did have her breakfast in the morning. She began to have nausea and vomiting again around noon that persisted until 9 PM when she returned to the emergency department at [facility]. Radiology had reached out to Dr. Contreras at [facility] who felt that it appeared she had a stricture in her gastric anastomosis. As he was the surgeon who did her initial surgery, and it was decided she would transfer to [facility]. She currently denies any chest [...] hypertension, benign I10 Long-term insulin use Z79.4 residential 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 Z79.84 [...] ANESTHESIA performed by Sabrina Swain MD at [facility] MAIN OR IR ARTERIAL INTERVENTION 10/13/2022 IR Arterial Intervention 10/13/2022 Pradip Avila MD [facility] INTERVENTIONL RAD PRG ECHOGRAPHY TRANSVAGINAL NON-OB Midline 03/03/2022 ULTRASOUND, TRANSVAGINAL (WRVU 0.69) performed by Sabrina Swain MD at [facility] MAIN OR PRO HYSTEROSCOPY, W/ENDO BX N/A 03/03/2022 HYSTEROSCOPY, SURG W/ENDOMETRIAL SAMPLING, POLYPECTOMY (WRVU 4.74) performed by Sabrina Swain MD [facility] MAIN OR PRO INSERT INTRAUTERINE DEVICE N/A 03/03/2022 INSERTION OF IUD, VAGINAL APPROACH (WRVU 1.01) performed by Sabrina Swain MD at [facility] MAIN OR PRO LAP GASTRIC BYPASS/VERNELL-EN-Y N/A 06/03/2023 @LAPAROSCOPIC GASTROPLASTY W/ VERNELL-EN-Y CONSTRUCTION ([facility] performed by Gee Contreras MD at [facility] MAIN OR PRO PELVIC EXAMINATION W ANESTH N/A 03/03/2022 PELVIC EXAM UNDER ANESTHESIA ([facility]) performed by Sabrina wSain MD at [facility] MAIN OR Home Medications: Current Outpatient Medications [...] 07/12/2023 Minimally Invasive Surgery Service Team pager [phone] documented in this encounter Miscellaneous Notes * [...] are in agreement with plan. CAPO Paulson, machine tech of Care Management Pager [phone] * Plan of Care - Lashell Matos [...] EST Medicine Consults Progress Note Consult Team/Pager: [phone] ID: 33 y/o with hx of HFpEF, HTN, obesity, RICHMOND, DM, schizophrenia, RNY Gastric bypass in May who was transferred to [facility] from [facility] for 2 days of nausea and vomiting [...] edema b/l Labs: Recent Labs 07/14/23 0031 07/13/238 07/12/23 0558 WBC 4.0 4.5 5.2 HGB 11.5* 11.7 12.1 HCT 34.8* 35.5* 38.2 PLATELET 217 228 231 Recent Labs 07/14/233007/13/238 07/12/23 0558 NA 139 138 144 K 3.7 3.6 3.3* CL 104 102 108* CO2 BUN 9 7* 9 CREATININE 0.73 0.71 0.70 Assessment: 33 y/o with hx of HFpEF, HTN, obesity, RICHMOND, DM, schizophrenia, RNY Gastric bypass in May who was transferred to [facility] from [facility] for 2 days of nausea and vomiting [...] Internal Medicine - PGY3 Medicine Consults #[id number] Recommendations discussed with primary treating team. Medicine Consult service will continue to follow. x Recommendations are above. Medicine Consult service will sign off. If clinical changes occur or new questions arise, page [phone]. Case discussed with Dr. Hector Associated attestation [...] Admitted From: Transfer from another hospital Location: [facility] Reason for Hospitalization: s/p lap Vernell-en-Y gastric [...] surrogate would be surrogate decision maker per [place] surrogate decision making law. (Only good for 180 days) Any patient receiving care in [place] must abide by [place] law. The hierarchy for surrogate decision making [...] (i) The agent with financial power of regulatory attorney or a conservator appointed in accordance [...] has the electric, gas, oil, or water [employer] threatened to shut off services in your [...] (stand up shower) Home Address confirmed as: [address] [place] [address] [address] [facility] [address] Social & Family Supports: All names listed below confirmed with patient as current and correct Maria R Grullon, sister [phone] Extended Emergency Contact Information Primary Emergency Contact: Mary Castro [facility] Mobile Relation: Friend Current Care Provided by: self Provides Primary Care For: no one Caregiver if needed: friend(s) Quality of Family relationships: helpful, supportive, involved Community Resources being provided currently: outpatient psychiatric care, support group(s) Behavioral Health History: Patient is diagnosed with PTSD, schitzoaffective disorder, and disassocciative disorder. She currently sees a psychiatrist and therapist at [facility]. She also receives service from [facility]. Her Wildland Firefighter is Zachary Chiu. Patient feels like she [...] Yes ; Prescription Coverage: Yes Preferred Pharmacy: [facility] [place], [place] - [address] [place] [address] [address] [facility] [address] Status: Patient is a : No Primary Care Provider confirmed: Lia Pearson, JULIO C [phone] Patient/Caregiver Goals of Treatment: Return home when medically ready Potential Needs for Transition of Care: none Agency Referrals: I have met with the patient to: discuss discharge planning needs. provide the [facility], Office of Care Management letter from the Ground Transportation Operator pertaining to rehab referrals. provide a letter describing our affiliations within the [facility] and educate about their right to choose where referrals are sent. provide a list of Home Health Agencies / Durable Medical Equipment vendors which serve their preferred geographic area. provided patient with [facility] Star Quality Rating handout. They have requested referrals to: [facility] at [facility] [address] [place] [address] Billing Inquiries: For a walking cane Note routed to a Floor Care Specialist who will communicate referrals to facilities and [...] with transition of care planning. CAPO Paulson, machine tech of Care Management Pager [phone] * Consult Note - Jonna Jewell MD - 07/13/2023 9:35 AM EST Medicine Consults Progress Note Consult Team/Pager: [phone] ID: 33 y/o with hx of HFpEF, HTN, obesity, RICHMOND, DM, schizophrenia, RNY Gastric bypass in May who was transferred to [facility] from [facility] for 2 days of nausea and vomiting [...] 38.2 PLATELET 228 231 Recent Labs 07/13/2322707/12/23 0558 NA 138 144 K 3.6 3.3* [...] bypass in May who was transferred to [facility] from [facility] for 2 days of nausea and vomiting [...] clinical changes occur or newquestions arise, page [phone]. Case discussed with Dr. Hector Associated attestation [...] next 24 hours. Cristofer Hector DO Pager [phone] 07/13/2023 1:01 PM * Consult Note - Beba Lin, JULIO C - 07/13/2023 9:26 AM EST Diabetes Management Team Inpatient Consult Date of Consultation: 07/13/2023 Consult Requested by: Surgery Team Reason for Consultation: Zenia Worley is a 33 y.o. female from [place], [place], with PMH significant for HFpEF, HTN, obesity, RICHMOND, DM, schizophrenia, RNY Gastric bypass, who was admitted on 07/12/2023 after transfer from [facility], currently being treated for N/V w/concern for gastric fistula, HTN, and hypoglycemia. We are being consulted to assist with diabetes management and to provide a review of long filler cigar roller machine diabetes care. Diabetes History: Zenia Worley has had diabetes since 16yo~2016. She was managed with oral medications until she [id number] when insulin was started, and has been [...] 06/11: Zenia met with outpatient Endocrinology at [facility], at that time restarted Metformin XL 500mg [...] she hasn't lost more weight. Transferred to [facility] last night due to persistent Hypertension. Current outpatient diabetes regimen: Diabetes Provider: Lisa Yan APRN, [facility] Endocrinology; Last visit: 06/11/2023 Medications: Lantus 8 units BID (last dose 225 AM) Metformin XR 500mg - 1000mg BID [...] throughout the day, water between. Hasn'tworked with medical interpreter since surgery. Diabetes Complications Status: Eyes: Denies [...] Hobbies? Not really right now. Came to [place] from [place] to work at [employer] - took one year to find [...] gastric bypass diet Monitoring: BG Q4 Discharge Planning/residential diabetes care: Medications - Outpatient treatment regimen [...] the consulting service. Beba Lin APRN, DNP, -[facility] Inpatient Diabetes Management Team Team pager #[phone] * Plan of Care - Toma Rockwell RN - 07/13/2023 3:27 AM EST OUTCOME EVALUATION NOTE: OUTCOME SUMMARY: ~2315 Pt arrived to [facility] as an upgrade from the floor due [...] Worley who is a 33 y.o.female by chute puller for hypertension. Patient admitted earlier today for [...] Insomnia Essential hypertension, benign Long-term insulin use joint terminal attack controller 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 Mixed [...] and oriented x4. Denies pain. Transferred to ISCU room 82 on 5 mg of nicardipine. No issues en route. BP upon arrival to [facility] 141/74 (90) on 5 mg of nicard. Plan: Nicard, monitoring Transfer to Intermediate Care: [facility] Please page #[phone] with any questions, thank you. Queenie Wilson [...] Gastric bypass in May who prepreseented to [facility] for 2 days of nausea and vomiting. She iniitally went to 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 At that time she was still [...] has heartfailure but reports she has a certification technician in [place] who follow [place]ma for one of my left valves. Denies alchol/tobacco use for past 3 years and no marijuana use for past 2 years, no other drug use. Allergies: Allergies Allergen Reactions Fluoxetine Affected glucose level Mushroom Rash Past Surgical History Past Surgical History: Procedure Laterality Date CHG CYTOPATH,CERV/VAG,AUTO THIN LAYER,INTERP N/A 03/03/2022 PAP SMEAR UNDER ANESTHESIA performed by Sabrina Swain MD at [facility] MAIN OR IR ARTERIAL INTERVENTION 10/13/2022 IR Arterial Intervention 10/13/2022 Pradip Avila MD [facility] INTERVENTIONL RAD PRG ECHOGRAPHY TRANSVAGINAL NON-OB Midline 03/03/2022 ULTRASOUND, TRANSVAGINAL (WRVU 0.69) performed by Sabrina Swain MD at [facility] MAIN OR PRO HYSTEROSCOPY, W/ENDO BX N/A 03/03/2022 HYSTEROSCOPY, SURG W/ENDOMETRIAL SAMPLING, POLYPECTOMY (WRVU 4.74) performed by Sabrina Swain MD [facility] MAIN OR PRO INSERT INTRAUTERINE DEVICE N/A 03/03/2022 INSERTION OF IUD, VAGINAL APPROACH (WRVU 1.01) performed by Sabrina Swain MD at [facility] MAIN OR PRO LAP GASTRIC BYPASS/VERNELL-EN-Y N/A 06/03/2023 @LAPAROSCOPIC GASTROPLASTY W/ VERNELL-EN-Y CONSTRUCTION (WRVU 29.4) performed by Gee Contreras MD at [facility] MAIN OR PRO PELVIC EXAMINATION W ANESTH N/A 03/03/2022 PELVIC EXAM UNDER ANESTHESIA (WRVU 1.75) performed by Sabrina Swain MD at [facility] MAIN OR Family History: Family History Problem [...] Gastric bypass in May who prepreseented to [facility] for 2 days of nausea and vomiting. She iniitally went to 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 She appears to be chronically hypertensive [...] MD Internal Medicine, PGY3 PETER Pager # [phone] Associated attestation - Cristofer Hector DO - 07/13/2023 1:10 PM EST Hospital Medicine Attending Attestation: Please see the progress from 07/13/2023 for my discussion. Cristofer Hector DO Pager [phone] 07/13/2023 1:10 PM * Consult Note - [place], Mariposa A, RN - 07/12/2023 5:22 PM EST Life Safety Program Consult Note Called to see Zenia Worley who is a 33 y.o.female by RN for hypertension.. Zenia Worley is a 33 y.o. female with a past medical history of T2DM, PTSD, schizoaffective disorder, morbid obesity status post Vernell-en-Y procedure 06/03/2023 who presents to [facility] on 07/12/2023 as a direct transfer from [facility] for gastric fistula. 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 Mariposa Cintron, RN, BSN, [...] can, buy fresh vegetables and fruit from [employer]-sent message with resources -Choose whole grain [...] Note: Practice STOP and Urge Surfing. [employer] It Security Analyst will send hand-outs. Movement Lifestyle On track( 023 1:14 PM EDT) Riddhi Buchanan RD Note: Continue to walk stairs and walks when can. Will continue using stairs as it's colder. Look into finding weights free online or at [employer] stores. Could use water-filled milk jugs as [...] DIFFERENTIAL, AUTOMATED Routine 07/14/2023 12:31 AM EST CBC (WITH DIFF) Routine 07/14/2023 12:31 AM EST BASIC METABOLIC PANEL Routine 07/14/2023 12:31 AM EST POCT GLUCOSE Routine 07/14/2023 12:25 AM EST POCT GLUCOSE Routine 07/13/2023 7:19 PM EST POCT GLUCOSE Routine 07/13/2023 3:17 PM EST POCT GLUCOSE Routine 07/13/2023 11:24 AM EST POCT GLUCOSE Routine 07/13/2023 7:38 AM EST POCT GLUCOSE Routine 07/13/2023 4:19 AM EST HEMOGRAM Routine 07/13/2023 2:28 AM EST DIFFERENTIAL, AUTOMATED Routine 07/13/2023 2:28 AM EST CBC (WITH DIFF) Routine 07/13/2023 2:28 AM EST BASIC METABOLIC PANEL Routine 07/13/2023 2:28 AM EST POCT GLUCOSE [...] DIFFERENTIAL, AUTOMATED Routine 07/12/2023 5:58 AM EST CBC (WITH DIFF) Routine 07/12/2023 5:58 AM EST PHOSPHORUS Routine 07/12/2023 5:58 AM EST MAGNESIUM Routine 07/12/2023 5:58 AM EST HEMOGLOBIN A1C Routine 07/12/2023 5:58 AM EST BASIC METABOLIC PANEL Routine 07/12/2023 5:58 AM EST POCT GLUCOSE Routine 07/12/2023 5:48 AM EST POCT GLUCOSE Routine 07/12/2023 4:06 AM EST XR ABDOMEN 1 VIEW Routine 07/12/2023 4:0 5 AM EST documented in this encounter Results * POCT Glucose (07/14/2023 11:36 AM EST) Glucose, POC 98 65 - 199 mg/dL [facility] Comment: Supplemental ranges: <140 mg/dL before meals <180 mg/dL all other times of the day Blood 07/14/2023 11:3 6 AM EST 07/14/2023 11:36 AM EST Gee Contreras MD POINT OF CARE TEST O RDERABLES Performing Organization Address City/[facility]/ZIP Co de Phone Number [facility] [place] [address] * POCT Glucose (07/14/2023 7:48 AM EST) Glucose, POC 86 65 - 199 mg/dL [facility] Comment: Supplemental ranges: <140 mg/dL before meals <180 mg/dL all other times of the day Blood 07/14/2023 7:48 AM EST 07/14/2023 7:48 AM EST Gee Contreras MD POINT OF CARE TEST O RDERABLES [facility] [place] [address] * POCT Glucose (07/14/2023 3:54 AM EST) Glucose, POC 87 65 - 199 mg/dL [facility] Comment: Supplemental ranges: <140 mg/dL before meals <180 mg/dL all other times of the day Blood 07/14/2023 3:54 AM EST 07/14/2023 3:54 AM EST Gee Contreras MD POINT OF CARE TEST O RDERABLES Performing Organization Address City/[facility]/[place] [address] * Differential, Automated (07/14/2023 12:31 AM EST) Neutrophil % 46.9 % [facility] Neutrophil Absolute 1.88 1.70 - 6.10 x10(3)/[facility] LABORATORY Lymph % 32.3 % [facility] Lymphocytes Abs 1.3 0.9 - 3.2 x10(3)/[facility] LABORATORY Monocyte % 19.0 % [facility] Monocyte Abs 0.8 0.3 - 0.9 x10(3)/[facility] LABORATORY Eos % 1.0 % [facility] Eosinophils Abs 0.0 0.0 - 0.4 x10(3)/[facility] LABORATORY Basophil % 0.5 % [facility] Baso Absolute 0.0 0.0 - 0.1 x10(3)/[facility] LABORATORY Immature Gran % 0.30 % [facility] Comment: Immature granulocytes(IG's)percentage and absolute count will include metamyelocytes, myelocytes, and promyelocytes. Blood smears from CBCs yielding IG's will be scanned manually for concordance. If this scan disagrees with the automated IG or if promyelocytes are noted, a manual differential will be performed. Immature Gran Absolute 0.01 0.00 - 0.04 x10(3)/[facility] LABORATORY Blood 07/14/2023 12:3 1 AM EST 07/14/2023 12:41 AM EST Narrative Resulting Agency Comment Spec In Lab Suresh Terrell MD HEMATOLOGY ORDERABLE S Performing Organization Address [facility] [place] [address] * (ABNORMAL) Hemogram (07/14/2023 12:31 AM EST) White Blood Cell 4.0 4.0 - 9.5 x10(3)/mc L [facility] Red Blood Cell 4.02 4.00 - 5.21 x10(6)/mc L [facility] Hemoglobin 11.5(L) 11.7 - 15.5 g/dL [facility] Hematocrit 34.8(L) 35.7 - 45.8 % [facility] Mean Cell Volume 86.6 82.6 - 94.4 fL [facility] Mean Cell Hemoglobin 28.6 27.1 - 32.0 pg [facility] Mean Cell Hemoglobin Concentration 33.0 31.7 - 35.0 g/dL [facility] Platelet 217 145 - 357 x10(3)/mc L [facility] RDW Standard Deviation 39.4 37.0 - 46.0 fL [facility] RDW coefficient of variation 12.4 11.5 - 14.1 % [facility] Mean Platelet Volume 11.2 7.6 - 12.9 fL [facility] NRBC% auto 0.0 % [facility] NRBC Absolute 0.000 0.000 - 0.000 x10(3)/ L [facility] Blood 07/14/2023 12:3 1 AM EST 07/14/2023 12:41 AM EST Narrative Resulting Agency Comment Spec In Lab Suresh Terrell MD HEMATOLOGY ORDERABLE S Performing Organization Address City/State/[facility] Co de Phone Number [facility] [place] [address] * Basic Metabolic Panel (non-fasting) (07/14/2023 12:31 AM EST) Glucose 100 65 - 199 mg/dL [facility] Comment:Diabetes: >=200 mg/d L plus symptoms Blood Urea Nitrogen 9 8 - 18 mg/dL [facility] Creatinine 0.73 0.70 - 1.20 mg/dL [facility] Sodium 139 135 - 145 mmol/L [facility] Potassium 3.7 3.5 - 5.0 mmol/L [facility] Comment: Please note: ??Patients with WBC >100,000 may have falsely elevated Potassium levels. ??For accurate Potassium quantification in these patients send serum separator tube (gold top) for subsequent determinations. ??Contact the Clinical Chemistry Laboratory if there are any questions. Chloride 104 98 - 107 mmol/L [facility] Carbon Dioxide 26 22 - 31 mmol/L [facility] Anion Gap 9 5 - 15 mmol/L [facility] Calcium 8.9 8.5 - 10.5 mg/dL [facility] Est Glomerular Filtration Rate 113 >=60 mL/min/1. 73 m?? [facility] Comment: This patient's estimated GFR was [...] Contreras MD CHEMISTRY ORDERABLES Performing Organization Address City/[facility]/ZIP Co de Phone Number [facility] [place] [address] * POCT Glucose (07/14/2023 12:25 AM EST) Glucose, POC 92 65 - 199 mg/dL [facility] Comment: Supplemental ranges: <140 mg/dL before meals <180 mg/dL all other times of the day Blood 07/14/2023 12:2 5 AM EST 07/14/2023 12:25 AM EST Gee Contreras MD POINT OF CARE TEST O RDERABLES Performing Organization Address City/[facility]/ZIP Co de Phone Number [facility] [place] [address] * POCT Glucose (07/13/2023 7:19 PM EST) Glucose, POC 98 65 - 199 mg/dL [facility] Comment: Supplemental ranges: <140 mg/dL before meals <180 mg/dL all other times of the day Blood 07/13/2023 7:19 PM EST 07/13/2023 7:19 PM EST Gee Contreras MD POINT OF CARE TEST O JET [facility] [place] [address] * POCT Glucose (07/13/2023 3:17 PM EST) Glucose, POC 95 65 - 199 mg/dL [facility] Comment: Supplemental ranges: <140 mg/dL before meals <180 mg/dL all other times of the day Blood 07/13/2023 3:17 PM EST 07/13/2023 3:17 PM EST Gee Contreras MD POINT OF CARE TEST O JET Performing Organization Address City/[facility] Co de Phone Number [facility] [place] [address] * POCT Glucose (07/13/2023 11:24 AM EST) Glucose, POC 104 65 - 199 mg/dL [facility] Comment: Supplemental ranges: <140 mg/dL before meals <180 mg/dL all other times of the day Blood 07/13/2023 11:2 4 AM EST 07/13/2023 11:24 AM EST Gee Contreras MD POINT OF CARE TEST O JET Performing Organization Address City/[facility] Co de Phone Number [facility] [place] [address] * POCT Glucose (07/13/2023 7:38 AM EST) Glucose, POC 91 65 - 199 mg/dL [facility] Comment: Supplemental ranges: <140 mg/dL before meals <180 mg/dL all other times of the day Blood 07/13/2023 7:38 AM EST 07/13/2023 7:38 AM EST Jeffkwabena Amanda Diane HERNANDEZ POINT OF CARE TEST O RDERABLES Performing Organization Address City/[facility] Co de Phone Number [facility] [place] [address] * POCT Glucose (07/13/2023 4:19 AM EST) Glucose, POC 98 65 - 199 mg/dL [facility] Comment: Supplemental ranges: <140 mg/dL before meals <180 mg/dL all other times of the day Blood 07/13/2023 4:19 AM EST 07/13/2023 4:19 AM EST Gee Contreras MD POINT OF CARE TEST O RDERABLES Performing Organization Address [facility] Co de Phone Number [facility] [place] [address] * (ABNORMAL) Differential, Automated (07/13/2023 2:28 AM EST) Neutrophil % 67.7 % [facility] Neutrophil Absolute 3.04 1.70 - 6.10 x10(3)/mc L [facility] Lymph % 16.2 % [facility] Lymphocytes Abs 0.7(L) 0.9 - 3.2 x10(3)/mc L [facility] Monocyte % 15.1 % [facility] Monocyte Abs 0.7 0.3 - 0.9 x10(3)/mc L [facility] Eos % 0.4 % [facility] Eosinophils Abs 0.0 0.0 - 0.4 x10(3)/mc L [facility] Basophil % 0.4 % [facility] Baso Absolute 0.0 0.0 - 0.1 x10(3)/mc L [facility] Immature Gran % 0.20 % [facility] Comment: Immature granulocytes(IG's)percentage and absolute count will include metamyelocytes, myelocytes, and promyelocytes. Blood smears from CBCs yielding IG's will be scanned manually for concordance. If this scan disagrees with the automated IG or if promyelocytes are noted, a manual differential will be performed. Immature Gran Absolute 0.01 0.00 - 0.04 x10(3)/mc L [facility] Blood 07/13/2023 2:28 AM EST 07/13/2023 2:32 AM EST Narrative Resulting Agency Comment Spec In Lab Suresh Terrell MD HEMATOLOGY ORDERABLE S [facility] [place] [address] * (ABNORMAL) Hemogram (07/13/2023 2:28 AM EST) White Blood Cell 4.5 4.0 - 9.5 x10(3)/mc L [facility] Red Blood Cell 4.14 4.00 - 5.21 x10(6)/mc L [facility] Hemoglobin 11.7 11.7 - 15.5 g/dL [facility] Hematocrit 35.5(L) 35.7 - 45.8 % [facility] Mean Cell Volume 85.7 82.6 - 94.4 fL [facility] Mean Cell Hemoglobin 28.3 27.1 - 32.0 pg [facility] Mean Cell Hemoglobin Concentration 33.0 31.7 - 35.0 g/dL [facility] Platelet 228 145 - 357 x10(3)/mc L [facility] RDW Standard Deviation 38.7 37.0 - 46.0 fL [facility] RDW coefficient of variation 12.3 11.5 - 14.1 % [facility] Mean Platelet Volume 11.4 7.6 - 12.9 fL [facility] NRBC% auto 0.0 % [facility] NRBC Absolute 0.000 0.000 - 0.000 x10(3)/mc L [facility] Blood 07/13/2023 2:28 AM EST 07/13/2023 2:32 AM EST Narrative Resulting Agency Comment Spec In Lab Suresh Terrell MD HEMATOLOGY ORDERABLE S Performing Organization Address [facility]/ZIP Co de Phone Number [facility] [place] [address] * (ABNORMAL) Basic Metabolic Panel (non-fasting) (07/13/2023 2:28 AM EST) Glucose 95 65 - 199 mg/dL [facility] Comment:Diabetes: >=200 mg/d L plus symptoms Blood Urea Nitrogen 7(L) 8 - 18 mg/dL [facility] Creatinine 0.71 0.70 - 1.20 mg/dL [facility] Sodium 138 135 - 145 mmol/L [facility] Potassium 3.6 3.5 - 5.0 mmol/L [facility] Comment: Please note: ??Patients with WBC >100,000 may have falsely elevated Potassium levels. ??For accurate Potassium quantification in these patients send serum separator tube (gold top) for subsequent determinations. ??Contact the Clinical Chemistry Laboratory if there are any questions. Chloride 102 98 - 107 mmol/L [facility] Carbon Dioxide 26 22 - 31 mmol/L [facility] Anion Gap 10 5 - 15 mmol/L [facility] Calcium 8.9 8.5 - 10.5 mg/dL [facility] Est Glomerular Filtration Rate 117 >=60 mL/min/1. 73 m?? [facility] Comment: This patient's estimated GFR was [...] Contreras MD CHEMISTRY ORDERABLES Performing Organization Address [facility]/ZIP Co de Phone Number [facility] [place] [address] * POCT Glucose (07/12/2023 11:15 PM EST) Glucose, POC 88 65 - 199 mg/dL [facility] Comment: Supplemental ranges: <140 mg/dL before meals <180 mg/dL all other times of the day Blood 07/12/2023 11:1 5 PM EST 07/12/2023 11:15 PM EST Gee Contreras MD POINT OF CARE TEST O JET Performing Organization Address City/[facility]/ZIP Co de Phone Number [facility] [place] [address] * POCT Glucose (07/12/2023 8:31 PM EST) Glucose, POC 137 65 - 199 mg/dL [facility] Comment: Supplemental ranges: <140 mg/dL before meals <180 mg/dL all other times of the day Blood 07/12/2023 8:31 PM EST 07/12/2023 8:31 PM EST Gee Contreras MD POINT OF CARE TEST Jeanna CHAUDHARY Performing Organization Address [facility] Co de Phone Number [facility] [place] [address] * (ABNORMAL) POCT Glucose (07/12/2023 7:54 PM EST) Glucose, POC 63(L) 65 - 199 mg/dL [facility] Comment: Supplemental ranges: <140 mg/dL before meals <180 mg/dL all other times of the day Blood 07/12/2023 7:54 PM EST 07/12/2023 7:54 PM EST Gee Contreras MD POINT OF CARE TEST O JET Performing Organization Address [facility] Co de Phone Number [facility] [place] [address] * EKG 12 Lead (07/12/2023 5:31 PM EST) Ventricular rate 74 BPM MUSE SYSTEM Atrial Rate 74 BPM MUSE SYSTEM P-R Interval 174 ms MUSE SYSTEM QRS Duration 80 ms MUSE SYSTEM Q-T Interval 380 ms MUSE SYSTEM QTC Calculated (Bezet) 421 ms MUSE SYSTEM Calculated P [place] 24 degrees MUSE SYSTEM Calculated R [place] 29 degrees MUSE SYSTEM Calculated T [place] 33 degrees MUSE SYSTEM INTERPRETATION Normal sinus rhythm Anterolateral infarct (cited on or before 13-OCT-2022) Abnormal ECG When compared with ECG of 13-OCT-2022 18:19, No significant change was found Confirmed by MD CALLAHAN SALVATORE ([id number]) on 07/13/2023 1:55:52 PM MUSE SYSTEM 07/12/2023 5:31 PM EST 07/13/2023 1:55 PM EST Gee Contreras MD ECG ORDERABLES Performing Organization Address [facility] Phone Number MUSE SYSTEM * POCT Glucose (07/12/2023 4:45 PM EST) Glucose, POC 80 65 - 199 mg/dL [facility] Comment: Supplemental ranges: <140 mg/dL before meals <180 mg/dL all other times of the day Blood 07/12/2023 4:45 PM EST 07/12/2023 4:45 PM EST Gee Contreras MD POINT OF CARE TEST O RDERABLES Performing Organization Address [facility] de Phone Number [facility] [place] [address] * (ABNORMAL) POCT Glucose (07/12/2023 4:20 PM EST) Glucose, POC 54(Critica l) 65 - 199 mg/dL [facility] Comment: Supplemental ranges: <140 mg/dL before meals <180 mg/dL all other times of the day Blood 07/12/2023 4:20 PM EST 07/12/2023 4:20 PM EST Gee Contreras MD POINT OF CARE TEST O RDERABLES Performing Organization Address [facility] Co de Phone Number [facility] [place] [address] * (ABNORMAL) POCT Glucose (07/12/2023 4:18 PM EST) Glucose, POC 45(Critica l) 65 - 199 mg/dL [facility] Comment: Supplemental ranges: <140 mg/dL before meals <180 mg/dL all other times of the day Blood 07/12/2023 4:18 PM EST 07/12/2023 4:18 PM EST Gee Contreras MD POINT OF CARE TEST O RDERABLES [facility] [place] [address] * XR Abdomen 1 view (Generic) (07/12/2023 [...] who have questions please contact the health clinical care coordinator that requested your imaging first. ? Electronically signed by: Josselin Ramirez MD, 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 COMPARISON: Portable AP supine radiographs of the abdomen from earlier same day,07/12/2023 at [id number] hours 07/12/2023 CT chest, abdomen, and pelvis 07/10/2023 from [facility] FINDINGS: Surgical clips and anastomotic chain [...] residual oral contrast from the colon. 3. I Dale Duque DO, discussed the results with [...] patients who have questions please contactthe health clinical care coordinator that requested your imaging first. Sebastian Ribeiro MD IMG DX ORDERABLES * POCT Glucose (07/12/2023 12:32 PM EST) Glucose, POC 103 65 - 199 mg/dL [facility] Comment: Supplemental ranges: <140 mg/dL before meals <180 mg/dL all other times of the day Blood 07/12/2023 12:3 2 PM EST 07/12/2023 12:32 PM EST Gee Contreras MD POINT OF CARE TEST O RDERABLES [facility] [place] [address] * (ABNORMAL) POCT Glucose (07/12/2023 11:58 AM EST) Glucose, POC 63(L) 65 - 199 mg/dL [facility] Comment: Supplemental ranges: <140 mg/dL before meals <180 mg/dL all other times of the day Blood 07/12/2023 11:5 8 AM EST 07/12/2023 11:58 AM EST Gee Contreras MD POINT OF CARE TEST O RDERABLES Performing Organization Address [facility] Co de Phone Number [facility] [place] [address] * POCT Glucose (07/12/2023 8:38 AM EST) Glucose, POC 105 65 - 199 mg/dL [facility] Comment: Supplemental ranges: <140 mg/dL before meals <180 mg/dL all other times of the day Blood 07/12/2023 8:38 AM EST 07/12/2023 8:38 AM EST Gee Contreras MD POINT OF CARE TEST O RDERABLES Performing Organization Address [facility] Co de Phone Number [facility] [place] [address] * (ABNORMAL) POCT Glucose (07/12/2023 7:55 AM EST) Glucose, POC 50(Critica l) 65 - 199 mg/dL [facility] Comment: Supplemental ranges: <140 mg/dL before meals <180 mg/dL all other times of the day Blood 07/12/2023 7:55 AM EST 07/12/2023 7:55 AM EST Gee Contreras MD POINT OF CARE TEST O RDERAEDWARD Performing Organization Address [facility] Co de Phone Number [facility] [place] [address] * Differential, Automated (07/12/2023 5:58 AM EST) Neutrophil % 61.5 % [facility] Neutrophil Absolute 3.21 1.70 - 6.10 x10(3)/mcL [facility] Lymph % 23.9 % [facility] Lymphocytes Abs 1.2 0.9 - 3.2 x10(3)/[facility] Monocyte % 11.5 % [facility] Monocyte Abs 0.6 0.3 - 0.9 x10(3)/[facility] Eos % 2.3 % [facility] Eosinophils Abs 0.1 0.0 - 0.4 x10(3)/[facility] Basophil % 0.4 % [facility] Baso Absolute 0.0 0.0 - 0.1 x10(3)/[facility] LAB[facility] Immature Gran % 0.40 % [facility] Comment: Immature granulocytes(IG's)percentage and absolute count will include metamyelocytes, myelocytes, and promyelocytes. Blood smears from CBCs yielding IG's will be scanned manually for concordance. If this scan disagrees with the automated IG or if promyelocytes are noted, a manual differential will be performed. Immature Gran Absolute 0.02 0.00 - 0.04 x10(3)/[facility] LAB[facility]ORY Blood 07/12/2023 5:58 AM EST 07/12/2023 6:37 AM EST Narrative Resulting Agency Comment Spec In Lab Suresh Terrell MD HEMATOLOGY ORDERABLE S Performing Organization Address City/State/[facility] Co de Phone Number [facility] [place] [address] * Hemogram (07/12/2023 5:58 AM EST) White Blood Cell 5.2 4.0 - 9.5 x10(3)/[facility] LAB[facility]ORY Red Blood Cell 4.27 4.00 - 5.21 x10(6)/[facility]ORY Hemoglobin 12.1 11.7 - 15.5 g/dL [facility] Hematocrit 38.2 35.7 - 45.8 % [facility] Mean Cell Volume 89.5 82.6 - 94.4 fL [facility] Mean Cell Hemoglobin 28.3 27.1 - 32.0 pg [facility] Mean Cell Hemoglobin Concentration 31.7 31.7 - 35.0 g/dL [facility] Platelet 231 145 - 357 x10(3)/[facility] LABORATORY RDW Standard Deviation 40.5 37.0 - 46.0 fL [facility] RDW coefficient of variation 12.4 11.5 - 14.1 % [facility] Mean Platelet Volume 11.7 7.6 - 12.9 fL [facility] NRBC% auto 0.0 % [facility] NRBC Absolute 0.000 0.000 - 0.000 x10(3)/mcL [facility] Blood 07/12/2023 5:58 AM EST 07/12/2023 6:37 AM EST Narrative Resulting Agency Comment Spec In Lab Suresh Terrell MD HEMATOLOGY ORDERABLE S [facility] [place] [address] * (ABNORMAL) Hemoglobin A1c (07/12/2023 5:58 AM EST) Hemoglobin A1c 7.5(H) 4.3 - 5.6 % [facility] Comment: Reference Range: 4.3 - 5.6% [...] Mellitus, Diabetes Care 2013; 36: Suppl. 1, K04-45 Estimated Average Glucose 170 mg/dL [facility] Blood 07/12/2023 5:58 AM EST 07/12/2023 6:37 AM EST Narrative Resulting Agency Comment Spec In Lab Gee Contreras MD CHEMISTRY ORDERABLES [facility] [place] [address] * Phosphorus (07/12/2023 5:58 AM EST) Phosphorus 3.8 2.5 - 4.5 mg/dL [facility] Blood 07/12/2023 5:58 AM EST 07/12/2023 6:38 AM EST Narrative Resulting Agency Comment Spec In Lab Jeffshahabus Patel Diane HERNANDEZ CHEMISTRY ORDERABLES Performing Organization Address City/[facility]/ZIP Co de Phone Number [facility] [place] [address] * Magnesium (07/12/2023 5:58 AM EST) Magnesium 0.75 0.69 - 1.07 mmol/L [facility] Blood 07/12/2023 5:58 AM EST 07/12/2023 6:38 AM EST Narrative Resulting Agency Comment Spec In Lab Gonsalous Patel iDane HERNANDEZ CHEMISTRY ORDERABLES Performing Organization Address [facility] Co de Phone Number [facility] [place] [address] * (ABNORMAL) Basic Metabolic Panel (non-fasting) (07/12/2023 5:58 AM EST) Glucose 77 65 - 199 mg/dL [facility] Comment:Diabetes: >=200 mg/d L plus symptoms Blood Urea Nitrogen 9 8 - 18 mg/dL [facility] Creatinine 0.70 0.70 - 1.20 mg/dL [facility] Sodium 144 135 - 145 mmol/L [facility] Potassium 3.3(L) 3.5 - 5.0 mmol/L [facility] Comment: Please note: ??Patients with WBC >100,000 may have falsely elevated Potassium levels. ??For accurate Potassium quantification in these patients send serum separator tube (gold top) for subsequent determinations. ??Contact the Clinical Chemistry Laboratory if there are any questions. Chloride 108(H) 98 - 107 mmol/L [facility] Carbon Dioxide 28 22 - 31 mmol/L [facility] Anion Gap 8 5 - 15 mmol/L [facility] Calcium 8.8 8.5 - 10.5 mg/dL [facility] Est Glomerular Filtration Rate 119 >=60 mL/min/1. 73 m?? [facility] Comment: This patient's estimated GFR was [...] Contreras MD CHEMISTRY ORDERABLES Performing Organization Address City/[facility]/ZIP Co de Phone Number [facility] [place] [address] * POCT Glucose (07/12/2023 5:48 AM EST) Glucose, POC 80 65 - 199 mg/dL [facility] Comment: Supplemental ranges: <140 mg/dL before meals <180 mg/dL all other times of the day Blood 07/12/2023 5:48 AM EST 07/12/2023 5:48 AM EST Gee Contreras MD POINT OF CARE TEST O RDERAEDWARD Performing Organization Address [facility] Co de Phone Number [facility] [place] [address] * (ABNORMAL) POCT Glucose (07/12/2023 4:06 AM EST) Glucose, POC 51(Critica l) 65 - 199 mg/dL [facility] Comment: Supplemental ranges: <140 mg/dL before meals <180 mg/dL all other times of the day Blood 07/12/2023 4:06 AM EST 07/12/2023 4:06 AM EST Gee Contreras MD POINT OF CARE TEST O RDERABLES Performing Organization Address City/[facility] Co de Phone Number [facility] [place] [address] * XR Abdomen 1 view (Generic) (07/12/2023 [...] who have questions please contact the health clinical care coordinator that requested your imaging first. ? Electronically signed by: Jamila Ny MD, [facility] ([phone]), at 07/12/2023 7:30 AM Narrative 07/12/2023 7:30 [...] patients who have questions please contactthe health clinical care coordinator that requested your imaging first. Electronically signed by: Jamila Ny MD, [facility]([phone]), at 07/12/2023 7:30 AM Gee Contreras MD IMG DX ORDERABLES documented [...] Adam RN) 08 (Given - Provider: Bernardo Roper RN)2026 (Given - Provider: Toma Rockwell RN) 0915 (Given - Provider: Lashell Matos RN) furosemide (Lasix) tablet 20 mg 20 mg, Oral, DAILY, First dose on Wed07/12/23 at 0900, Until Discontinued, Routine 0935 (Given - Provider: Elizabeth Medrano RN) 0806 (Given - Provider: Bernardo Roper, RN) 0916 (Given - Provider: Lashell Matos, TOM) gabapentin (Neurontin) capsule 300 mg(Linked Group 1) 300 mg, Oral, DAILY, First dose (after last modification) on Wed07/12/23 at 0900, Until Discontinued, Routine 1400 (Given - Provider: Elizabeth Medrano RN) 08 (Given - Provider: Bernardo Roper, TOM) 09 (Given - Provider: Lashell Matos, TOM) gabapentin (Neurontin) capsule 600 mg(Linked Group 1) [...] Medrano RN - Reason: Order parameters not met)1999 (Not Given - Provider: Lia Adam RN - Reason: Order parameters not met - Comment: BS 63. Juice given)2327 (Not Given - Provider: Toma Rockwell RN [...] - Provider: Elizabeth Medrano RN - Comment: Verified w pharmacy) levothyroxine (Synthroid) tablet 200 mcg 200 mcg, Oral, EVERY MORNING, First dose on Wed07/12/23 at 0600, Until Discontinued 0537 (Given - Provider: Frantz Kraus RN) 0604 (Given - Provider: Toma Rockwell RN) 0501 (Given - Provider: Toma Rockwell RN) losartan (Cozaar) tablet 25 mg (CANCELED) 25 mg, Oral, DAILY, First dose on Wed07/12/23 at 0900, Until Discontinued, Routine 09 (Given - Provider: Elizabeth Medrano RN) losartan [...] Discontinued, DO NOT CRUSH OR OPEN, Routine 09 (Given - Provider: Elizabeth Medrano RN) metoproloL [...] Roper RN)1411 (Given - Provider: Bernardo Roper RN)2028 (Given - Provider: Toma Rockwell RN) 0917 (Given - Provider: Lashell Matos RN)1505 (Given - Provider: Lashell Matos RN) polyethylene [...] tablet., Routine 1151 (Given - Provider: Lashell Matos, TOM) prazosin (Minipress) capsule 10 mg 10 [...] Elizabeth Medrano RN)2100 (Not Given - Provider: Lia Adam RN - Reason: See comment - Comment: IV infusing) 0808 (Given - Provider: Bernardo Roper RN)2027 (Given - Provider: Toma Rockwell RN) 0916 (Given - Provider: Lashell Matos RN) thiamine (Vitamin B-1) (100 mg/mL) injection 100 [...] Adam RN) 2026 (Given - Provider: Toma Rockwell, RN) Continuous Medication Order 07/12/2023 07/13/2023 07/14/2023 [...] Elizabeth Medrano RN)2200 (Stopped - Provider: Toma Rockwell, TOM) lactated ringers infusion (CANCELED) 100 mL/hr, Intravenous, CONTINUOUS, Starting on Wed07/13/23 at 0315, Until Wed07/13/23 at 0738 0226 (New Bag - Provider: Toma Rockwell, TOM)0643 (New Bag - Provider: Toma Rockwell RN)0735 (Rate/Dose Verify - Provider: Bernardo Roper, TOM)0738 (Stopped - Provider: Bernardo Roper, RN) niCARdipine [...] Toma Rockwell RN)0017 (Paused - Provider: Toma Rockwell RN)0626 (Stopped - Provider: Toma Rockwell RN) [...] Medrano RN)1201 (New Bag - Provider: Elizabeth Medrano RN)1216 (Stopped - Provider: Elizabeth Medrano RN) glucagon [...] Routine 0428 (See Alternative - Provider: Frantz Kraus RN)0443 (See Alternative - Provider: Frantz Kraus RN)0811 (See Alternative - Provider: Elizabeth Medrano RN)0826 (See Alternative - Provider: Elizabeth Medrano RN)1201 (See Alternative - Provider: Elizabeth Medrano RN)1216 (See Alternative - Provider: Elizabeth Medrano RN) glucose (Glutose) 40% oral geL(Linked Group [...] Routine 0428 (See Alternative - Provider: Frantz Kraus RN)0443 (See Alternative - Provider: Frantz Kraus RN)0811 (See Alternative - Provider: Elizabeth Medrano RN)0826 (See Alternative - Provider: Elizabeth Medrano, TOM)1201 (See Alternative - Provider: Elizabeth Medrano RN)1216 (See Alternative - Provider: Elizabeth Medrano RN) hydrALAZINE (Apresoline) (20 mg/mL) injection 15 mg (CANCELED) 15 mg, Intravenous, EVERY 6 HOURS PRN, Starting on Wed07/12/23 at 2133, Until Wed07/13/23 at 0749, High Blood Pressure, For SBP>160 or DBP>100, do not give if HR>90 2141 (Given - Provider: Linette Boothe, TOM) hydrALAZINE (Apresoline) (20 mg/mL) injection 15 mg [...] hours documented in this encounter Care Teams Coroner Forensic Technician Relationship Specialty Start Date End Date Lia Pearson APRN [address] [place] [address] PCP - General Geriatric Medicine 02/09/22 documented as of this encounter
--- OUTSIDE RECORDS SUMMARY | 2024-02-13 18:01 | XMS_ITS | Encounter Summary ---
Author Organization [facility] Address [facility] [place] [address] Care Team Providers Care Classroom Aide Name Role Phone Lia Pearson COLORING CHECKER Primary Care Provider [phone] Encounter Details Date Type Department Care Team (Latest Contact Info) Description 07/12/2023 Travel Social History Tobacco Use Types Packs/Day Years Used Date Smoking Tobacco: Former Smokeless Tobacco: Never Alcohol Use Standard Drinks/Week Comments Not Currently 0 (1 standard drink = 0.6 oz pur e alcohol) [facility] Utilities Answer Date Recorded In [...] in a snf (including now)? No 07/13/2023 DH IPV Inpatient [...] can, buy fresh vegetables and fruit from [employer]-sent message with resources -Choose whole grain options [...] Note: Practice STOP and Urge Surfing. Health Cable Splicer will send hand-outs. Movement Lifestyle On track( 023 1:14 PM EDT) Riddhi Buchanan RD Note: Continue to walk stairs and walks when can. Will continue using stairs as it's colder. Look into finding weights free online or at [employer] stores. Could use water-filled milk jugs as weights-a full gallon jug would be 8 lbs. Will look into nearby rec center 04/16/22 NATHALIA documented as of this encounter Visit Diagnoses Not on filedocumented in this encounter Care Teams Classroom Aide Relationship Specialty Start Date End Date Lia Pearson APRN [address] [place] [address] PCP - General Geriatric Medicine 02/09/22 documented as of this encounter
--- OUTSIDE RECORDS SUMMARY | 2024-02-13 18:01 | XMS_ITS | Encounter Summary ---
[place] [address] Care Team Providers Care Laundry Operator Name Role Phone Lia Pearson APRN Primary Care Provider [phone] Encounter Details Date Type Department Care Team (Late st Contact Info) Description 06/18/2023 Telephone [place] [phone] Lidya Elise, RN Social History Tobacco Use [...] and ask to speak with a resident donation specialist if she continues to have difficulty moving [...] can, buy fresh vegetables and fruit from [email or web address]-sent message with resources -Choose whole grain [...] Note: Practice STOP and Urge Surfing. Health Sewing Machine Mechanic will send hand-outs. Movement Lifestyle On track( 1:14 PM EDT) Riddhi Buchanan RD Note: Continue to walk stairs and walks when can. Will continue using stairs as it's colder. Look into finding weights free online or at [employer] stores. Could use water-filled milk jugs as weights-a full gallon jug would be 8 lbs. Will look into nearby rec center 04/16/22 NATHALIA documented as of this encounter Visit Diagnoses Not on filedocumented in this encounter Care Teams Laundry Operator Relationship Specialty Start Date End Date Lia Pearson APRN [address] [place] [address] PCP - General Geriatric Medicine 02/09/22 documented as of this encounter
--- OUTSIDE RECORDS SUMMARY | 2024-02-13 18:01 | XMS_ITS | Encounter Summary ---
Author Organization [facility] Address [facility] [place] [address] Care Team Providers Care Cable Machine Operator Name Role Phone Lia Pearson APRN Primary Care Provider [phone] Reason for Visit * Reason Comments Medication Refill Encounter Details Date Type Department Care Team (Late st Contact Info) Description 07/15/2023 Refill Obstetrics [place] [address] Marco Patel MD [facility] OBSTETRICS [place] [address] Abnormal uterine bleeding (AUB) Social History Tobacco Use Types Packs/Day Years Used Date Smoking Tobacco: Former Smokeless Tobacco: Never Alcohol Use Standard Drinks/Week Comments Not Currently 0 (1 standard drink = 0.6 oz pur e alcohol) [facility] Utilities Answer Date Recorded In the past 12 months has [employer], gas, oil, or water [employer] threatened to shut off services in your [...] place to sleep or slept in a retirement (including now)? No 07/13/2023 DH IPV Inpatient [...] can, buy fresh vegetables and fruit from [employer] market-sent message with resources -Choose whole grain [...] Note: Practice STOP and Urge Surfing. Health Model Maker Apprentice will send hand-outs. Movement Lifestyle On track( 023 1:14 PM EDT) Riddhi Buchanan RD Note: Continue to walk stairs and walks when can. Will continue using stairs as it's colder. Look into finding weights free online or at [employer] stores. Could use water-filled milk jugs as weights-a full gallon jug would be 8 lbs. Will look into nearby rec center 04/16/22 NATHALIA documented as of this encounter Visit Diagnoses Diagnosis Abnormal uterine bleeding (AUB) documented in this encounter Care Teams Cable Machine Operator Relationship Specialty Start Date End Date Lia Pearson APRN [address] [address] PCP - General Geriatric Medicine 02/09/22 documented as of this encounter
--- OUTSIDE RECORDS SUMMARY | 2024-02-13 18:01 | XMS_ITS | Encounter Summary ---
Author Organization [facility] Address [facility] [place] [address] Care Team Providers Care Extractor Operator Name Role Phone Lia Pearson APRN Primary Care Provider [phone] Reason for Visit * Reason Comments Medication Refill Encounter Details Date Type Department Care Team (Late st Contact Info) Description 06/07/2023 Refill Obstetrics [place] [address] Marco Patel MD [facility] OBSTETRICS & [place] [address] Abnormal uterine bleeding (AUB) Social History Tobacco [...] Note: Practice STOP and Urge Surfing. Health District Service Manager will send hand-outs. Movement Lifestyle On track( 023 1:14 PM EDT) Riddhi Buchanan RD Note: Continue to walk stairs and walks when can. Will continue using stairs as it's colder. Look into finding weights free online or at [employer] stores. Could use water-filled milk jugs as weights-a full gallon jug would be 8 lbs. Will look into nearby rec center 04/16/22 NATHALIA documented as of this encounter Visit Diagnoses Diagnosis Abnormal uterine bleeding (AUB) documented in this encounter Care Teams Extractor Operator Relationship Specialty Start Date End Date Lia Pearson APRN [address] [place] [address] PCP - General Geriatric Medicine 02/09/22 documented as of this encounter
--- OUTSIDE RECORDS SUMMARY | 2024-02-13 18:01 | XMS_ITS | Encounter Summary ---
Author Organization [facility] Address [facility] [place] [address] Care Team Providers Care Bottle House Pumper Name Role Phone Lia Pearson APRN Primary Care Provider Encounter Details Date Type Department Care Team (Late st Contact Info) Description 07/10/2023 4:15 PM EST Ancillary Procedure Radiology Library [place] [facility] [place] [address] Bryon Kelley MD [facility] [address] Social History Tobacco Use Types Packs/Day Years [...] Note: Practice STOP and Urge Surfing. Health Recreation Therapy Aides Teacher will send hand-outs. Movement Lifestyle On track( 023 1:14 PM EDT) Riddhi Buchanan RD Note: Continue to walk stairs and walks when can. Will continue using stairs as it's colder. Look into finding weights free online or at [employer] stores. Could use water-filled milk jugs as [...] Abdomen Pelvis (07/10/2023 4:13 PM EST) Narrative MADYSON - 07/10/2023 4:13 PM EST This exam is auto-finalizing. It's purpose is for storage only. Bryon Kelley MD IMG FILM LIBRARY ORD ERABLES Performing Organization Address City/State/[facility] Co de Phone Number [place], [place] documented in this encounter Visit Diagnoses Not on filedocumented in this encounter Care Teams Bottle House Pumper Relationship Specialty Start Date End Date Lia Pearson APRN [address] [place] [address] PCP - General Geriatric Medicine 02/09/22 documented as of this encounter
--- OUTSIDE RECORDS SUMMARY | 2024-02-13 18:01 | XMS_ITS | Encounter Summary ---
Author Organization [facility] Address [facility] [place] [address] Care Team Providers Care Tannery Worker Name Role Phone Lia Pearson APRN Primary Care Provider [phone] Encounter Details Date Type Department Care Team (Late st Contact Info) Description 06/08/2023 Orders [place] [address] Kati Shea PA [facility] [place] [place] [address] S/P bariatric surgery Social History Tobacco Use [...] Note: Practice STOP and Urge Surfing. Health Brancher will send hand-outs. Movement Lifestyle On track( 023 1:14 PM EDT) Riddhi Buchanan RD Note: Continue to walk stairs and walks when can. Will continue using stairs as it's colder. Look into finding weights free online or at [employer] stores. Could use water-filled milk jugs as weights-a full gallon jug would be 8 lbs. Will look into nearby rec center 04/16/22 NATHALIA documented as of this encounter Visit Diagnoses Diagnosis S/P bariatric surgery Bariatric surgery status documented in this encounter Care Teams Tannery Worker Relationship Specialty Start Date End Date Lia Pearson APRN [address] [place] [address] PCP - General Geriatric Medicine 02/09/22 documented as of this encounter
--- OUTSIDE RECORDS SUMMARY | 2024-02-13 18:01 | XMS_ITS | Encounter Summary ---
Author Organization [facility] [place] [address] Care Team Providers Care Refueling Ramp Supervisor Name Role Phone GeorgesLia Toribio JULIO C Primary Care Provider +1 [phone] Reason for Visit * Reason Comments Follow-up Encounter Details Date Type Department Care Team (Late st Contact Info) Description 06/25/2023 2:00 PM EST Office [place] [address] Asiya Giraldo, PERFORMANCE IMPROVEMENT ANALYST [facility] [place] [address] Deneen Nicholas, RD [facility] [place] [address] Vitamin D deficiency; S/P gastric bypass; Disorder of iron metabolism; Intestinal malabsorption, unspecified type Social History Tobacco Use Types Packs/Day Years Used Date Smoking Tobacco: Former Smokeless Tobacco: Never Alcohol Use Standard Drinks/Week Comments Not Currently 0 (1 standard drink = 0.6 oz pur e alcohol) [facility] Inpatient Questions Answer Date Recorded Prevent Contact [...] Patient Instructions * Patient Instructions* Asiya Giraldo, PERFORMANCE IMPROVEMENT ANALYST - 06/25/2023 2:00 PM EST Bariatric Surgery Program First Post-operative Follow up visit Contact information: [facility] manager support: Meghan: [phone] and Irais [phone] Dietitians: [phone] Surgeons/ nurse practitioners: [phone] Nurse line: [phone] Dear Zenia, Thank you for following up with the Bariatric Surgery Program at [facility]. Please review your medical note from today's [...] to 6:00 pm. Here's the link to [facility] Lab hours and locations, in case one of the other locations is more convenient for you: [email or web address] If you have labwork done by your primary intensive care unit registered nurse before that date, please have a copy [...] Blow dry area on low setting with hair or beauty salon assistant. Apply absorbent powder such as Gold Casillas [...] such as Ibuprofen (Advil), Aleve (Naproxen), Excedrin, [place] should be avoided for at least the [...] Our post surgery support group meets at [facility] on the first Wednesday of every month from 1:00 PM-2:00 PM, call to sign up! Nutrition and Activity apps- Baritastic, My Fitness Pal, Lose It, My Plate Internet resources: www.Cono-C wwwV[employer]u [employer] www.bariatriceating.Openovate Labs www.OffiSync.Openovate Labs/blog [facility] facebook page: [email or web address]ric[facility]gery Books & Magazines: - Recipes for Life After Weight Loss Surgery by Queta Kay - Shrink Yourself by Dr Maycol Hernandez - Eating Well - www.[employer]a Technologies - Cooking Light- www.cookinglight.Openovate Labs Anxiety: The Happiness Trap by Nathan Worley The Mindfulness and acceptance workbook for anxiety By Kory Silva. Mindful eating: What are you Hungry For? By Juan Miguel Vidal The Mindful Diet by Grace Duncan and the [facility] group. Emotional eating: End Emotional Eating by Deneen Valentino Calming the Emotional Storm Hollie Waite documented in this encounter Progress Notes * Deneen Nicholas, RD - 06/25/2023 2:00 PM EST Bariatric Nutrition Follow-up Visit Topics Discussed/Patient Concerns: + constipation: took a dose of over the counter milk of magnesia. Taking senna twice daily and miralax at night if she does not have a BM during the day. Working to increase fluid intake to 64 oz perday. Rec d/w PERFORMANCE IMPROVEMENT ANALYST today. Social history: Pt currently unemployed, on disability, has associates degree in [place]. Lives alone. Social support: friend (Mary) and neighbor (Sheryl) would be main care givers after surgery. Hobbies: technology, video games, writing short scripts, cooking Vision at 2 years post-op: would like significant weight loss, would like to be working again, visit mother in [place] Goal weight: 160#, discussed weight loss expectations [...] 62.7 3 weeks post-op 4 months post-op [place] Body Weight (based on BMI of 25): [...] ?gluconate 1 pill Twice daily (Reported to PERFORMANCE IMPROVEMENT ANALYST after RD visit) Vitamin D3 2000 IU Not taking May have to purchase OTC Food Allergies/Intolerances: None. Tracking Intake: [employer] Daily Oral Intake: Stage 3. Premier protein daily. Also has power Breakfast Oatmeal OR Palestinian yogurt AM Snack Lunch Chicken soup- chicken [...] 06/25/2023 2:00 PM [place] [address] Reason for visit: Bariatric Surgery Post Op [...] Started 6 month work experience- working in [employer]. Health Habits: Tobacco: None. ETOH: No alcohol since before surgery. (Patient with hx alcohol misuse/abuse).. NSAID use: None. Patient Active Problem List Diagnosis Code Essential hypertension, benign I10 Long-term insulin use Z79.4 terminal block assembler 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 Z79.84 [...] foods at this time, food/fluids etc. See claims account specialist note re: recommendations regarding vitamin and mineral supplementation, fluid intake and exercise. RTC in 3 months for next BSP follow up visit, with labs (ordered). Call/rtc sooner prn with questions/concerns or unexplained abdominal pain, prolonged nausea, vomiting or inability to hydrate Bariatric Program Summary report is availabe for patient's review via e- Asiya Giraldo APRN [facility] Bariatric Surgery Program RECOMMENDED BARIATRIC SURGERY PROGRAM [...] If labwork is done by the primary intensive care unit registered nurse: please send a copy to the Bariatric Surgery Program, General Surgery Clinic, [facility], or fax [phone] documented in this encounter Plan of Treatment Scheduled Orders Name Type Priority Associated Diagnoses [...] can, buy fresh vegetables and fruit from [employer] market-sent message with resources -Choose whole [...] Practice STOP and Urge Surfing. Health Oil Pit Attendant will send hand-outs. Movement Lifestyle On track( 1:14 PM EDT) Riddhi Buchanan RD Note: Continue to walk stairs and walks when can. Will continue using stairs as it's colder. Look into finding weights free online or at [employer]. Could use water-filled milk jugs as weights-a full gallon jug would be 8 lbs. Will look into nearby [facility] 04/16/22 NATHALIA documented as of this encounter Visit Diagnoses Diagnosis Vitamin D deficiency Unspecified vitamin D deficiency S/P gastric bypass Bariatric surgery status Disorder of iron metabolism Other disorders of iron metabolism Intestinal malabsorption, unspecified type documented in this encounter Care Teams Refueling Ramp Supervisor Relationship Specialty Start Date End Date Lia Pearson APRN [address] [place] [address] PCP - General Geriatric Medicine 02/09/22 documented as of this encounter
--- OUTSIDE RECORDS SUMMARY | 2024-02-13 18:01 | XMS_ITS | Encounter Summary ---
Author Organization [facility] Address [facility] [place] [address] Care Team Providers Care Director Corporate Name Role Phone Lia Pearson APRN Primary Care Provider [phone] [phone] Encounter Details Date Type Department Care Team (Late st Contact Info) Description 07/26/2023 Telephone [place] [phone] Deneen Campbell, RN Social History Tobacco Use Types Packs/Day Years Used Date Smoking Tobacco: Former Smokeless Tobacco: Never Alcohol Use Standard Drinks/Week Comments Not Currently 0 (1 standard drink = 0.6 oz pur e alcohol) [facility] Utilities Answer Date Recorded In the [...] place to sleep or slept in a chcf (including now)? No 07/13/2023 [facility] IPV Inpatient [...] 165. She has an appointment with her oil and gas principal in August. Her PCP appointment was moved from July to September as her provider is out. Plan: I will discuss the intermittent fasting with the team and one of us will get back to her. I told her to keep monitoring her BP and if it continues to be elevated, she should call her oil and gas principal to be seen sooner. Pt verbalizes her [...] can, buy fresh vegetables and fruit from [employer] market-sent message with resources -Choose whole grain [...] into finding weights free online or at [employer] stores. Could use water-filled milk jugs as weights-a full gallon jug would be 8 lbs. Will look into nearby rec center 04/16/22 NATHALIA documented as of this encounter Visit Diagnoses Not on filedocumented in this encounter Care Teams Director Corporate Relationship Specialty Start Date End Date Lia Pearson APRN [address] [place] [address] PCP - General Geriatric Medicine 02/09/22 documented as of this encounter
--- OUTSIDE RECORDS SUMMARY | 2024-02-13 18:01 | XMS_ITS | Encounter Summary ---
Author Organization [facility] Address [facility] [place] [address] Care Team Providers Care Emergency Management Program Specialist Name Role Phone Lia Pearson APRN Primary Care Provider [phone] Reason for Visit * Reason Comments Medication Refill Encounter Details Date Type Department Care Team (Late st Contact Info) Description 08/30/2023 Refill [place] [address] Kati Shea PA [facility] [place] [address] S/P bariatric surgery Social History Tobacco Use Types Packs/Day Years Used Date Smoking Tobacco: Former Smokeless Tobacco: Never Alcohol Use Standard Drinks/Week Comments Not Currently 0 (1 standard drink = 0.6 oz pur e alcohol) [facility] Utilities Answer Date Recorded In the past 12 months has e Dev[employer], gas, oil, or water [employer] threatened to shut off services in your [...] place to sleep or slept in a prison (including now)? No 07/13/2023 [facility] IPV Inpatient [...] can, buy fresh vegetables and fruit from [employer] market-sent message with resources -Choose whole [...] Note: Practice STOP and Urge Surfing. Health Front Desk Associate will send hand-outs. Movement Lifestyle On track( 023 1:14 PM EDT) Riddhi Buchanan RD Note: Continue to walk stairs and walks when can. Will continue using stairs as it's colder. Look into finding weights free online or at [employer] stores. Could use water-filled milk jugs as weights-a full gallon jug would be 8 lbs. Will look into nearby rec center 04/16/22 NATHALIA documented as of this encounter Visit Diagnoses Diagnosis S/P bariatric surgery Bariatric surgery status documented in this encounter Care Teams Emergency Management Program Specialist Relationship Specialty Start Date End Date Lia Pearson APRN [address] [place] [address] PCP - General Geriatric Medicine 02/09/22 documented as of this encounter
--- OUTSIDE RECORDS SUMMARY | 2024-02-13 18:01 | XMS_ITS | Encounter Summary ---
[place] [address] Care Team Providers Care Superintendent Sanitation Name Role Phone Lia Pearson APRN Primary Care Provider [phone] [phone] Encounter Details Date Type Department Care Team (Late st Contact Info) Description 06/18/2023 Telephone [place] [phone] Lidya Elise, RN Social History Tobacco Use [...] can, buy fresh vegetables and fruit from [employer] market-sent message with resources -Choose whole grain [...] Practice STOP and Urge Surfing. Health Senior Technical Project Manager will send hand-outs. Movement Lifestyle On track( 1:14 PM EDT) Riddhi Buchanan RD Note: Continue to walk stairs and walks when can. Will continue using stairs as it's colder. Look into finding weights free online or at [employer] stores. Could use water-filled milk jugs as weights-a full gallon jug would be 8 lbs. Will look into nearby [facility] 04/16/22 documented as of this encounter Visit Diagnoses Not on filedocumented in this encounter Care Teams Superintendent Sanitation Relationship Specialty Start Date End Date Lia Pearson APRN [address] [place] [address] PCP - General Geriatric Medicine 02/09/22 documented as of this encounter
--- OUTSIDE RECORDS SUMMARY | 2024-02-13 18:01 | XMS_ITS | Encounter Summary ---
[place] [address] Care Team Providers Care Assembler Truck Trailer Name Role Phone Lia Pearson APRN Primary Care Provider [phone]- [phone] Encounter Details Date Type Department Care Team [...] focus on protein Bariatric behaviors Lifestyle On track(08/03/2 023 1:14 PM EDT) [...] Note: Practice STOP and Urge Surfing. Health Protective Signal Installer will send hand-outs. Movement Lifestyle On track( 023 1:14 PM EDT) Riddhi Buchanan RD Note: Continue to walk stairs and walks when can. Will continue using stairs as it's colder. Look into finding weights free online or at [employer] stores. Could use water-filled milk jugs as weights-a full gallon jug would be 8 lbs. Will look into nearby rec center 04/16/22 NATHALIA documented as of this encounter Visit Diagnoses Not on filedocumented in this encounter Care Teams Assembler Truck Trailer Relationship Specialty Start Date End Date Lia Pearson APRN [address] [place] [address] PCP - General Geriatric Medicine 02/09/22 documented as of this encounter
--- OUTSIDE RECORDS SUMMARY | 2024-02-13 18:02 | XMS_ITS | Encounter Summary ---
Author Organization [facility] [place] [address] Care Team Providers Care Mechanical Shop Laborer Name Role Phone Lia Pearson APRN Primary Care Provider [phone] [phone] Encounter Details Date Type Department Care Team (Late st Contact Info) Description 03/24/2023 Telephone Pre[place] [phone] Alyx Velez, RN Social History Tobacco Use [...] can, buy fresh vegetables and fruit from [employer] market-sent message with resources -Choose whole grain [...] Note: Practice STOP and Urge Surfing. Health Wastewater Analyst Lab Analyst will send hand-outs. Movement Lifestyle On track( 1:14 PM EDT) Riddhi Buchanan RD Note: Continue to walk stairs and walks when can. Will continue using stairs as it's colder. Look into finding weights free online or at [employer]. Could use water-filled milk jugs as weights-a full gallon jug would be 8 lbs. Will look into nearby [facility] 04/16/22 NATHALIA documented as of this encounter Visit Diagnoses Not on filedocumented in this encounter Care Teams Mechanical Shop Laborer Relationship Specialty Start Date End Date Lia Pearson APRN [address] [place] [address] PCP - General Geriatric Medicine 02/09/22 documented as of this encounter
--- OUTSIDE RECORDS SUMMARY | 2024-02-13 18:02 | XMS_ITS | Encounter Summary ---
Author Organization [facility] [place] [address] Care Team Providers Care Ruby On Rails Engineer Name Role Phone Lia Pearson APRN Primary Care Provider [phone] Encounter Details Date Type Department Care Team (Late st Contact Info) Description 05/13/2023 1:15 PM EST TH Visit (TeleHealth) [place] [address] Michael Morgan, [facility] [place] [address] Vaginal bleeding Social History Tobacco Use Types [...] MPH Staff Physician - Interventional Radiology Pager [phone] documented in this encounter Plan of Treatment [...] Note: Practice STOP and Urge Surfing. Health Self Sealing Fuel Tank Builder will send hand-outs. Movement Lifestyle On track( 023 1:14 PM EDT) Riddhi Buchanan RD Note: Continue to walk stairs and walks when can. Will continue using stairs as it's colder. Look into finding weights free online or at [employer] stores. Could use water-filled milk jugs as weights-a full gallon jug would be 8 lbs. Will look into nearby rec center 04/16/22 NATHALIA documented as of this encounter Visit Diagnoses Diagnosis Vaginal bleeding Other specified noninflammatory disorder of vagina documented in this encounter Care Teams Ruby On Rails Engineer Relationship Specialty Start Date End Date Lia Pearson APRN [address] [place] [address] PCP - General Geriatric Medicine 02/09/22 documented as of this encounter
--- OUTSIDE RECORDS SUMMARY | 2024-02-13 18:02 | XMS_ITS | Encounter Summary ---
Author Organization [facility] Address [facility] [place] [address] Care Team Providers Care Track Subway Repair Supervisor Name Role Phone Lia Pearson APRN Primary Care Provider [phone] [phone] Encounter Details Date Type Department Care Team (Late st Contact Info) Description 02/11/2023 11:59 PM EDT Anesthesia Event Interventional [place] [address] Trinity Dumont MD [facility] [place] [address] Anesthesia Record Procedure Summary Procedure Name Responsible [...] 09/26/2021 ??? Long-term insulin use 09/26/2021 ??? 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 IR ARTERIAL INTERVENTION 10/13/2022 IR Arterial Intervention 10/13/2022 Pradip Avila MD [facility] INTERVENTIONL RAD ??? PRG ECHOGRAPHY TRANSVAGINAL NON-OB Midline 03/03/2022 ULTRASOUND, TRANSVAGINAL (WRVU 0.69) performed by Sabrina Swain MD at [facility] MAIN OR ??? PRO HYSTEROSCOPY, W/ENDO BX N/A 03/03/2022 HYSTEROSCOPY, SURG W/ENDOMETRIAL SAMPLING, POLYPECTOMY (WRVU 4.74) performed by Sabrina Swain MD [facility] MAIN OR ??? PRO INSERT INTRAUTERINE DEVICE N/A 03/03/2022 INSERTION OF IUD, VAGINAL APPROACH (WRVU 1.01) performed by Sabrina Swain MD at [facility] MAIN OR ??? PRO PELVIC EXAMINATION W ANESTH N/A 03/03/2022 PELVIC EXAM UNDER ANESTHESIA (WRVU 1.75) performed by Sabrina Swain MD at [facility] MAIN OR Social History Tobacco Use ??? [...] and coagulation/H&H monitoring - Decision deferred to atr-uy-gyagood team; appears she was hemodynamically stable for her last 2 GA's here including uterine artery embolization, neither of which utilized invasive BP monitoring. Trinity Dumont MD 01/06/2022 Perioperative Care Clinic phone extension: [phone] documented in this encounter Plan of Treatment [...] Note: Practice STOP and Urge Surfing. Health Weather Observer will send hand-outs. Movement Lifestyle On track( 023 1:14 PM EDT) Riddhi Buchanan RD Note: Continue to walk stairs and walks when can. Will continue using stairs as it's colder. Look into finding weights free online or at [employer] stores. Could use water-filled milk jugs as weights-a full gallon jug would be 8 lbs. Will look into nearby rec center 04/16/22 NATHALIA documented as of this encounter Visit Diagnoses Not on filedocumented in this encounter Care Teams Track Subway Repair Supervisor Relationship Specialty Start Date End Date Lia Pearson APRN [address] [place] [address] PCP - General Geriatric Medicine 02/09/22 documented as of this encounter
--- OUTSIDE RECORDS SUMMARY | 2024-02-13 18:02 | XMS_ITS | Encounter Summary ---
Author Organization [facility] [place] [address] Care Team Providers Care Enamel Dipper Name Role Phone Lia Pearson APRN Primary Care Provider [phone] [phone] Encounter Details Date Type Department Care Team (Late st Contact Info) Description 03/30/2023 Telephone Pre[place] [phone] Alyx Velez RN Social History Tobacco Use Types Packs/Day [...] Progress Notes * Alyx Velez RN - 03/30/2023 2:10 PM EST Phone [...] Practice STOP and Urge Surfing. Health Floor Surfacer will send hand-outs. Movement Lifestyle On track( 023 1:14 PM EDT) Riddhi Buchanan RD Note: Continue to walk stairs and walks when can. Will continue using stairs as it's colder. Look into finding weights free online or at [employer] stores. Could use water-filled milk jugs as weights-a full gallon jug would be 8 lbs. Will look into nearby rec center 04/16/22 NATHALIA documented as of this encounter Visit Diagnoses Not on filedocumented in this encounter Care Teams Enamel Dipper Relationship Specialty Start Date End Date Lia Pearson APRN [address] [place] [address] PCP - General Geriatric Medicine 02/09/22 documented as of this encounter
--- OUTSIDE RECORDS SUMMARY | 2024-02-13 18:02 | XMS_ITS | Encounter Summary ---
Author Organization [facility] [place] [address] Care Team Providers Care Woodyard Operator Name Role Phone Lia Pearson APRN Primary Care Provider +1 [phone] Encounter Details Date Type Department Care Team (Late st Contact Info) Description 03/08/2023 Notes [place] [address] Michael Morgan, [facility] [place] [address] Social History Tobacco Use Types Packs/Day Years [...] otherwise. Current degree of vaginal bleeding is [id number]. She denies any new symptoms. No need [...] MPH Staff Physician - Interventional Radiology Pager [phone] documented in this encounter Plan of Treatment [...] can, buy fresh vegetables and fruit from [employer] market-sent message with resources -Choose whole grain [...] Note: Practice STOP and Urge Surfing. Health Yard Associate will send hand-outs. Movement Lifestyle On track( 023 1:14 PM EDT) Riddhi Buchanan RD Note: Continue to walk stairs and walks when can. Will continue using stairs as it's colder. Look into finding weights free online or at [employer] stores. Could use water-filled milk jugs as weights-a full gallon jug would be 8 lbs. Will look into nearby rec center 04/16/22 NATHALIA documented as of this encounter Visit Diagnoses Not on filedocumented in this encounter Care Teams Woodyard Operator Relationship Specialty Start Date End Date Lia Pearson APRN [address] [place] [address] PCP - General Geriatric Medicine 02/09/22 documented as of this encounter
--- OUTSIDE RECORDS SUMMARY | 2024-02-13 18:02 | XMS_ITS | Encounter Summary ---
Author Organization [facility]ly [facility] [place] [address] Care Team Providers Care Adjunct Business Instructor Name Role Phone GeorgesLia Toribio CUTTING TOOL SHARPENER Primary Care Provider [phone] Encounter Details Date Type Department Care Team (Latest Contact Info) Description 02/23/2023 12:00 PM EDT TH Visit (TeleHealth) Hematology [place] [address] Claudine Yang MD [facility] [address] HEMATOLOGY [place] [address] Carline Blanco MD [facility] [address] HEMATOLOGY/[place] [address] Sandra Siddiqui RN Excessive bleeding in premenopausal [...] wear her pads for several hours. Her NURSE PLASTICS has discussed hysteroscopy with biopsy, transvaginal ultrasound and also Mirena IUD insertion. This is scheduled under OR for Feb 2022. She is coming to [facility] on 01/07[facility]22 for pre op evaluation. [...] No other family member with bleeding disorder thatjoana is aware of. INTERIM HISTORY I had [...] ANESTHESIA performed by Sabrina Swain MD at [facility] MAIN OR IR ARTERIAL INTERVENTION 10/13/2022 IR Arterial Intervention 10/13/2022 Pradip Avila MD [facility] INTERVENTIONL RAD PRG ECHOGRAPHY TRANSVAGINAL NON-OB Midline 03/03/2022 ULTRASOUND, TRANSVAGINAL (WRVU 0.69) performed by Sabrina Swain MD at [facility] MAIN OR PRO HYSTEROSCOPY, W/ENDO BX N/A 03/03/2022 HYSTEROSCOPY, SURG W/ENDOMETRIAL SAMPLING, POLYPECTOMY (WRVU 4.74) performed by Sabrina Swain MD formerly [facility] MAIN OR PRO INSERT INTRAUTERINE DEVICE N/A 03/03/2022 INSERTION OF IUD, VAGINAL APPROACH (WRVU 1.01) performed by Sabrina Swain MD at [facility] MAIN OR PRO PELVIC EXAMINATION W ANESTH N/A 03/03/2022 PELVIC EXAM UNDER ANESTHESIA (WRVU 1.75) performed by Sabrina Swain MD at [facility] MAIN OR OBSTETRIC HISTORY MEDICATIONS Outpatient Medications [...] 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 Alcohol: 1-2 [...] MD Verified: 02/17/2023 15:51 Pathologist Performed at: [facility] Dept. of Pathology, [place] [address] Bellhop Captain: Katherine Webb MD, FCAP, CLIA Certificate: [id number] RADIOGRAPHIC STUDIES None IMPRESSION Zenia Worley is [...] surgery. I will reach out to her NURSE PLASTICS/bariatric surgery and see if this is do [...] following bariatric surgery 3. Will discuss with NURSE PLASTICS and bariatric team if Mirena IUD can be reinserted during the surgery. Otherwise continue progesterone only pill Zenia Worley had the opportunity to ask [...] can, buy fresh vegetables and fruit from [employer]-sent message with resources -Choose whole grain options [...] Note: Practice STOP and Urge Surfing. Health Cobol Programmer will send hand-outs. Movement Lifestyle On track( 023 1:14 PM EDT) Riddhi Buchanan RD Note: Continue to walk stairs and walks when can. Will continue using stairs as it's colder. Look into finding weights free online or at [employer] stores. Could use water-filled milk jugs as weights-a full gallon jug would be 8 lbs. Will look into nearby rec center 04/16/22 NATHALIA documented as of this encounter Visit Diagnoses Diagnosis Excessive bleeding in premenopausal period Premenopausal menorrhagia Morbid obesity Pre-op evaluation Preoperative examination, unspecified documented in this encounter Care Teams Adjunct Business Instructor Relationship Specialty Start Date End Date Lia Pearson APRN [address] [place] [address] PCP - General Geriatric Medicine 02/09/22 documented as of this encounter
--- OUTSIDE RECORDS SUMMARY | 2024-02-13 18:02 | XMS_ITS | Encounter Summary ---
Author Organization [facility] [place] [address] Care Team Providers Care Stream Control Officer Name Role Phone Lia Pearson APRN Primary Care Provider [phone] Encounter Details Date Type Department Care Team (Late st Contact Info) Description 04/01/2023 Telephone [place] [address] Estella Salomon, RD [facility] [place] [address] Social History Tobacco Use Types Packs/Day Years [...] AM EST Called pt in response to [facility] message. Pt states she continues to have difficulty with low BG levels while following the pre-op diet. As a result she has been unable to adhere to the pre-op diet parameters. Pt has been tracking her intake in [employer] rebecca and reports being over the calorie and carbohydrate parameters most days. Pt has appt scheduled with blow pit operator for 04/30/23 to help address low BG. Advised pt to call PCP today for additional support. Pt states she would like to postpone surgery until after her blow pit operator appointment. Will look to schedule surgery for [...] can, buy fresh vegetables and fruit from [employer]-sent message with resources -Choose whole grain options [...] Note: Practice STOP and Urge Surfing. Health Bioinformatics Scientist will send hand-outs. Movement Lifestyle On track( 023 1:14 PM EDT) Riddhi Buchanan RD Note: Continue to walk stairs and walks when can. Will continue using stairs as it's colder. Look into finding weights free online or at [employer] stores. Could use water-filled milk jugs as weights-a full gallon jug would be 8 lbs. Will look into nearby rec center 04/16/22 NATHALIA documented as of this encounter Visit Diagnoses Not on filedocumented in this encounter Care Teams Stream Control Officer Relationship Specialty Start Date End Date Lia Pearson APRN [address] [place] [address] PCP - General Geriatric Medicine 02/09/22 documented as of this encounter
--- OUTSIDE RECORDS SUMMARY | 2024-02-13 18:02 | XMS_ITS | Encounter Summary ---
Author Organization Formerly [facility] [place] [address] Care Team Providers Care Survey Interviewer Name Role Phone Lia Pearson DIRECTOR OF CARDIAC REHABILITATION Primary Care Provider [phone] Reason for Visit * Auth/Cert (Routine) Specialty Diagnoses / Procedures Referred By Della kern Referred To Contact Diagnoses Morbid Obesity Procedures PRO GASTRIC BYPASS, OBESE<150CM VERNELL-EN-Y PRO LAP GASTRIC BYPASS/VERNELL-EN-Y @LAPAROSCOPIC GASTROPLASTY W/ VERNELL-EN-Y CONSTRUCTION (WRVU 29.4) Gee Decker MD [facility] [place] [address] [facility] Referral ID Status Reason Start Date Expiration Date Visits Re quested Visits Authorized [id number] 1 1 Encounter Details Date Type Department Care Team (Latest Contact Info) Description 06/03/2023 11:12 AM EST - 06/05/2023 11:47 AM [facility] Hospital Encounter Surgical Unit Level 4 [place] [id number] Gee Decker MD [facility] [place] [address] Discharge Disposition: Home Social History Tobacco Use [...] RD; Asiya Giraldo APRN General Surgery at [facility] Arrive at: [facility] Cardiology Area [phone] Please dispose of unused excess opioids before your appointment or bring them with you to the appointment and we will help you dispose of them correctly. 07/08/2023 3:45 PM Michael Morgan, DO Interventional Radiology at [facility] Arrive at: [place] [phone] Please do not come in for this visit. Your provider will call you at the number you provided. 07/09/2023 9:20 AM Zay Ferreira APRN Obstetrics and Gynecology at [facility] Arrive at: [facility]iology Area [phone] 09/24/2023 1:[address]; Asiya Giraldo APRN General Surgery at [facility] Arrive at: [facility] Cardiology Area [phone] Instructions Given to Patient at Discharge: Patient Instructions Discharge Instructions - Bariatric Surgery NEW PRESCRIPTIONS: back feeder plywood layup line at [facility] today: Lovenox, omeprazole, Zofran (ondansetron), liquid oxycodone, Miralax, Colace back feeder plywood layup line at your home pharmacy: [facility] HOME MEDICATION [...] - 5pm): General Surgery and Bariatric Surgery [phone] Bariatric Surgeons: Everton Arredondo Trus [phone] Copyright Clerk: [phone] Dietitians: [phone] Outside of regular business hours, including weekends and holidays: Ask for General Surgery resident pest controller [phone] Please note, this call will be answered [...] [facility] (Manager Cardiology 4, [facility]). Future Appointments Date Time Provider Department Center 06/25/2023 2:00 PM Asiya Giraldo APRN [facility] SURG [facility] 07/08/2023 3:45 PM Michael Morgan, [facility] IR 3V [facility] 07/09/2023 9:20 AM Zay Ferreira APRN [facility] OBG 5L [facility] 09/24/2023 1:00 PM Asiya Giraldo APRN [facility] SURG [facility] WOUND CARE You have steri-strips and Band-Aids [...] twice daily. Please call or send a TouchFrame message if you do not have a [...] for assistance to pay for this with bewarket. Go to [email or web address] and put in the prescription and the [...] Follow up with primary care provider or firearms specialist in 1-2 weeks in order to [...] RD; Asiya Giraldo APRN General Surgery at [facility] Arrive at: [facility] Cardiology Area [phone] Please dispose of unused excess opioids before your appointment or bring them with you to the appointment and we will help you dispose of them correctly. 07/08/2023 3:45 PM Michael Morgan, DO Interventional Radiology at [facility] Arrive at: [place] [phone] Please do not come in for this visit. Your provider will call you at the number you provided. 07/09/2023 9:20 AM Zay Ferreira APRN Obstetrics and Gynecology at [facility] Arrive at: Manager Cardiology Area 5L [phone] 09/24/2023 1:[address]; Asiya Giraldo APRN General Surgery at [facility] Arrive at: Manager Cardiology Area 4L [phone] Signed: Cristofer Fish MD General Surgery PGY-4 [id number] Primary Denbo Physician: Lia Pearson APRN [address] [facility] [id number] documented in this encounter Discharge Instructions * Patient Instructions* Cristofer Fish MD - 06/04/2023 2:58 PM EST Images from the original note were not included. Discharge Instructions - Bariatric Surgery NEW PRESCRIPTIONS: back feeder plywood layup line at [facility] today: Lovenox, omeprazole, Zofran (ondansetron), liquid oxycodone, Miralax, Colace back feeder plywood layup line at your home pharmacy: [facility]iol HOME MEDICATION [...] - 5pm): General Surgery and Bariatric Surgery [phone] Bariatric Surgeons: Everton Arredondo, Diane [phone] Copyright Clerk: [phone] Dietitians: [phone] Outside of regular business hours, including weekends and holidays: Ask for General Surgery resident pest controller [phone] Please note, this call will be answered [...] Surgery Team in 3 weeks at the [facility] (Manager Cardiology 4L, [facility]). Future Appointments Date Time Provider Department Center 06/25/2023 2:00 PM Asiya Giraldo APRN [facility] SURG [facility] 07/08/2023 3:45 PM Michael Morgan DO [facility] IR 3V [facility] 07/09/2023 9:20 AM Zay Ferreira APRN [facility] OBG 5L [facility] 09/24/2023 1:00 PM Asiya Giraldo DIRECTOR OF CARDIAC REHABILITATION [facility] You have steri-strips and Band-Aids [...] twice daily. Please call or send a TouchFrame message if you do not have a [...] for assistance to pay for this with bewarket. Go to [email or web address] and put in the prescription and the [...] Follow up with primary care provider or firearms specialist in 1-2 weeks in order to [...] times daily. 10/15/2021 prazosin (Minipress) 5 mg CapsuleIndications:po st traumatic stress disorder Take 10 mg by mouth nightly. Indications: posttraumatic stress syndrome 11/07/2021 methocarbamoL (Robaxin) 500 mg tablet 01/14/2023 furosemide [...] 180 days. 180 capsule 1 06/17/2023 12/14/2023 losartan (Cozaar) 25 mg tablet 02/18/2023 07/14/2023 insulin glargine (Lantus) 100 unit/mL (3 mL) pen Inject 10 Units subcutaneously 2 times daily. 10 units in AM & 12 units in PM 01/29/2023 07/14/2023 norethindrone (Aygestin) 5 mg tabletIndications:Abn ormal uterine bleeding (AUB) Take 2 tablets by mouth 3 times daily. 180 tablet 6 10/15/2022 07/16/2023 enoxaparin (Lovenox) 40 mg/0.4 mL Syringe Inject [...] by mouth daily. 255 g 06/05/2023 06/08/2023 cholecalciferol, Vitamin D3, 1,250 mcg (50,000 unit) Capsule every week 07/07/20222023 NovoLOG Flexpen U-100 Insulin 100 unit/mL (3 mL) Insulin Pen Inject 9 Units subcutaneously 3 times daily (before meals). 35 UNITS THIS AM SLIDING SCALE 9-35 UNITS BID 11/14/2021 07/14/2023 documented as of this encounter Progress Notes * Gustaob Russ RN - 06/05/2023 11:20 AM EST [...] Patient voiding to BR w/ SBA. 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 Z79.84 [...] performed by Sabrina Swain MD at [facility] MAIN OR IR ARTERIAL INTERVENTION 10/13/2022 IR Arterial Intervention 10/13/2022 Pradip Aivla MD [facility] INTERVENTIONL RAD PRG ECHOGRAPHY TRANSVAGINAL NON-OB Midline 03/03/2022 ULTRASOUND, TRANSVAGINAL (WRVU 0.69) performed by Sabrina Swain MD at [facility] MAIN OR PRO HYSTEROSCOPY, W/ENDO BX N/A 03/03/2022 HYSTEROSCOPY, SURG W/ENDOMETRIAL SAMPLING, POLYPECTOMY (WRVU 4.74) performed by Sabrina Swain MD [facility] MAIN OR PRO INSERT INTRAUTERINE DEVICE N/A 03/03/2022 INSERTION OF IUD, VAGINAL APPROACH (WRVU 1.01) performed by Sabrina Swain MD at [facility] MAIN OR PRO PELVIC EXAMINATION W ANESTH N/A 03/03/2022 PELVIC EXAM UNDER ANESTHESIA (WRVU 1.75) performed by Sabrina Swain MD at [facility] MAIN OR cholecalciferol, Vitamin D3, [...] are faxed to her endocrine team at [facility] as well as her PCP at [place] Please ask Dr. Decker/surgery team to consider [...] management and to provide a review of terminal gauger diabetes care. Diabetes History: Zenia Worley has [...] sulfa at that time. Was living in [facility] where she is from. Moved to [place] 3 years ago. Has needed less insulin over the years and espeically since Current outpatient diabetes regimen: Diabetes Provider: Lisa Yan NP [facility] [place] [facility] - [facility] Endocrinology [address], [place] [address] Lisa Yan NP [address] [facility] [address] [place] [phone] Medications: Jardiance 10 mg PO last taken by accident Wednesday although had stopped taking Wednesday prior Mounjaro weekly (new since December-likes it very much) last dose 2 weeks prior at [facility] from pre op Lantus 17 units in AM and 18 units in PM(this has been reduced even more recently (06/01) by endo team at [facility] in [place] Novolog/humalog (based upon insurance changes) with correction and some carbohydrate counting recently 15-20 units pre meal TID Metformin 1000 XR BID NOW THIS IS FROM [facility] 01/29/2023: TSH 1.42 (09/2022) Levothyroxine 200 mcg [facility] DM: dad, brother Recent A1C: 6.7 (01/2023) [...] ACEI/ARB: losartan 25 mg Prior visit with bioinformatics team member: CORNELIO Aguayo Foot care: self Comorbidities: Retinopathy: [...] yes-gets signals WAS ADMITTED 4 times to [facility] and one time her airway failed for hypoglycemia when she still lived in [place] Diabetes education: + in the past and [...] Dr. Decker's team and Lisa Arciniega endocrine STRESS ANALYST when and if she should resume Mounjaro [...] through insurance is has proven in this database report writer's experience to be significantly challenging. We [...] are faxed to her endocrine team at [facility] as well as her PCP at [place] Please ask Dr. Decker to consider if [...] pharmacist in person about this when you pecan picker new version. Jardiance When you are [...] Decker MD - 06/03/2023 4:56 PM EST [facility] Operative Note Patient Name: Zenia Worley : [id number] MR#: [id number] Case Date: 06/03/2023 Surgeon: Surgeon(s) and Role: [...] position. The abdomen was entered using the [employer] trocar system. The 10-mm port was placed [...] distal bowel was chosen to create the [id number] jejunojejunostomy. The duodenal, afferent limb was approximated [...] suture in two layers with a 30 Sammar[place] Bougie (blunt-tipped) in place. The Bougie was [...] Practice STOP and Urge Surfing. Health Senior Sales Consultant will send hand-outs. Movement Lifestyle On track( 023 1:14 PM EDT) Riddhi Buchanan RD Note: Continue to walk stairs and walks when can. Will continue using stairs as it's colder. Look into finding weights free online or at [employer] stores. Could use water-filled milk jugs as weights-a full gallon jug would be 8 lbs. Will look into nearby rec center 04/16/22 NATHALIA documented as of this encounter Procedures Procedure Name Priority Date/Time Associated Diagnosis Comments POCT GLUCOSE Routine 06/05/2023 7:55 AM EST LAVENDER TUBE HOLD Routine 06/05/2023 5: 28 AM EST C-PEPTIDE Routine 06/05/2023 5:28 AM EST PHOSPHORUS Routine 06/05/2023 5:28 AM EST MAGNESIUM Routine 06/05/2023 5:28 AM EST BASIC METABOLIC PANEL Routine 06/05/2023 5:28 AM EST POCT GLUCOSE Routine 06/05/2023 3:51 AM EST POCT GLUCOSE Routine 06/04/2023 11:58 PM EST POCT GLUCOSE Routine 06/04/2023 7:51 PM EST POCT GLUCOSE Routine 06/04/2023 4:42 PM EST BETA HYDROXYBUTYRATE STAT 06/04/2023 2:05 PM EST BASIC METABOLIC PANEL STAT 06/04/2023 2:05 PM EST PHOSPHORUS Routine 06/04/2023 12:05 PM EST MAGNESIUM Routine 06/04/2023 12:05 PM EST BASIC METABOLIC PANEL Routine 06/04/2023 12:05 PM EST POCT GLUCOSE Routine 06/04/2023 11:44 AM EST POCT GLUCOSE Routine 06/04/2023 10:24 AM EST _URINALYSIS WITH MICRSOCOPIC Routine 06/04/2023 9:15 AM EST POCT GLUCOSE Routine 06/04/2023 7:15 AM EST HEMOGRAM Routine 06/04/2023 5:20 AM EST DIFFERENTIAL, AUTOMATED Routine 06/04/19 5:20 AM EST BETA HYDROXYBUTYRATE Routine 06/04/2023 5:20 AM EST CBC (WITH DIFF) Routine 06/04/2023 5:20 AM EST PHOSPHORUS Routine 06/04/2023 5:20 AM EST MAGNESIUM Routine 06/04/2023 5:20 AM EST BASIC METABOLIC PANEL Routine 06/04/2023 5:20 AM EST BASIC METABOLIC PANEL STAT 06/03/2023 10:55 PM EST POCT GLUCOSE Routine 06/03/2023 8:27 PM EST POCT GLUCOSE Routine 06/03/2023 7:41 PM EST POCT GLUCOSE Routine 06/03/2023 7:11 PM EST Lap Gastric Bypass/Vernell-En-Y ([id number]) 06/03/2023 4:05 PM EST Morbid Obesity POCT GLUCOSE Routine 06/03/2023 2:32 PM EST BLOOD GAS ARTERIAL POC Routine 2:10 PM EST POCT GLUCOSE Routine 06/03/2023 2:05 PM EST BETA HYDROXYBUTYRATE STAT 06/03/2023 2:00 PM EST BASIC METABOLIC PANEL STAT 06/03/2023 2:00 PM EST POCT GLUCOSE Routine 06/03/2023 1:42 PM EST POCT GLUCOSE Routine 06/03/2023 1:14 PM EST LAPAROSCOPIC GASTROPLASTY, G\SURG Routine 06/03/2023 1:10 PM EST documented in this encounter Results * (ABNORMAL) POCT Glucose (06/05/2023 7:55 AM EST) [facility] Glucose, POC 203(H) 65 - 199 mg/dL [facility] Comment: Supplemental ranges: <140 mg/dL before meals <180 mg/dL all other times of the day Blood 06/05/2023 7:55 AM EST 06/05/2023 7:55 AM EST Gee Decker MD POINT OF CARE TEST O RDERABLES [facility] [place] [address] * Lavender Tube HOLD (06/05/2023 5:28 AM EST) Lavender Hold Sample in lab. [facility] Blood Venous Draw / Unknown 06/05/2023 5:28 AM EST 06/05/2023 5:56 AM EST Cristofer Fish MD HEMATOLOGY ORDERABLE S Performing Organization Address City/[facility]/ZIP Co de Phone Number [facility] [place] [address] * C-peptide (06/05/2023 5:28 AM EST) C-Peptide 2.0 1.1 - 4.4 ng/mL [facility] Comment:Reference intervals derived from fasting individuals Blood 06/05/2023 5:28 AM EST 06/05/2023 5:53 AM EST Narrative Resulting Agency Comment Spec In Lab Gee Decker MD CHEMISTRY ORDERABLES Performing Organization Address City/[facility] Co de Phone Number [facility] [place] [address] * (ABNORMAL) Phosphorus (06/05/2023 5:28 AM EST) Phosphorus 2.3(L) 2.5 - 4.5 mg/dL [facility] Blood 06/05/2023 5:28 AM EST 06/05/2023 5:53 AM EST Narrative Resulting Agency Comment Spec In Lab Gee Decker MD CHEMISTRY ORDERABLES Performing Organization Address City/[facility]/ZIP Co de Phone Number [facility] [place] [address] * Magnesium (06/05/2023 5:28 AM EST) Magnesium 0.84 0.69 - 1.07 mmol/L [facility] Blood 06/05/2023 5:28 AM EST 06/05/2023 5:53 AM EST Narrative Resulting Agency Comment Spec In Lab Jeffkwabena Amanda Decker MD CHEMISTRY ORDERABLES Performing Organization Address City/State/[facility] Co de Phone Number [facility] [place] [address] * (ABNORMAL) Basic Metabolic Panel (non-fasting) (06/05/2023 5:28 AM EST) Glucose 214(H) 65 - 199 mg/dL [facility] Comment:Diabetes: >=200 mg/d L plus symptoms Blood Urea Nitrogen 17 8 - 18 mg/dL [facility] Creatinine 0.88 0.70 - 1.20 mg/dL [facility] Sodium 135 135 - 145 mmol/L [facility] Potassium 4.6 3.5 - 5.0 mmol/L [facility] Comment: Please note: ??Patients with WBC >100,000 may have falsely elevated Potassium levels. ??For accurate Potassium quantification in these patients send serum separator tube (gold top) for subsequent determinations. ??Contact the Clinical Chemistry Laboratory if there are any questions. Chloride 104 98 - 107 mmol/L [facility] Carbon Dioxide 20(L) 22 - 31 mmol/L [facility] Anion Gap 11 5 - 15 mmol/L [facility] Calcium 8.7 8.5 - 10.5 mg/dL [facility] Est Glomerular Filtration Rate 90 >=60 mL/min/1. 73 m?? [facility] Comment: This patient's estimated GFR [...] Decker MD CHEMISTRY ORDERABLES Performing Organization Address [facility] Co de Phone Number [facility] [place] [address] * POCT Glucose (06/05/2023 3:51 AM EST) Glucose, POC 175 65 - 199 mg/dL [facility] Comment: Supplemental ranges: <140 mg/dL before meals <180 mg/dL all other times of the day Blood 06/05/2023 3:51 AM EST 06/05/2023 3:51 AM EST Gee Decker MD POINT OF CARE TEST O JET Performing Organization Address [facility] Co de Phone Number [facility] [place] [address] * POCT Glucose (06/04/2023 11:58 PM EST) Glucose, POC 178 65 - 199 mg/dL [facility] Comment: Supplemental ranges: <140 mg/dL before meals <180 mg/dL all other times of the day Blood 06/04/2023 11:5 8 PM EST 06/04/2023 11:58 PM EST Gee Decker MD POINT OF CARE TEST O JET Performing Organization Address [facility] Co de Phone Number [facility] [place] [address] * POCT Glucose (06/04/2023 7:51 PM EST) Glucose, POC 195 65 - 199 mg/dL [facility] Comment: Supplemental ranges: <140 mg/dL before meals <180 mg/dL all other times of the day Blood 06/04/2023 7:51 PM EST 06/04/2023 7:51 PM EST Gee Decker MD POINT OF CARE TEST O JET Performing Organization Address [facility] Co de Phone Number [facility] [place] [address] * POCT Glucose (06/04/2023 4:42 PM EST) Glucose, POC 176 65 - 199 mg/dL [facility] Comment: Supplemental ranges: <140 mg/dL before meals <180 mg/dL all other times of the day Blood 06/04/2023 4:42 PM EST 06/04/2023 4:42 PM EST Gee Decker MD POINT OF CARE TEST O JET Performing Organization Address [facility] de Phone Number [facility] [place] [address] * Beta Hydroxybutyrate (06/04/2023 2:05 PM EST) Beta-hydroxybuturat e 0.20 0.00 - 0.30 mmol/L [facility] Comment: This test has not been cleared by the [place] FDA. Performance characteristics of this test were determined by [facility] in accordance with CLIA requirements. This laboratory is qualified under CLIA to perform high-complexity testing. Blood 06/04/2023 2:05 PM EST 06/04/2023 2:17 PM EST Narrative Resulting Agency Comment Spec In Lab Gee Decker MD CHEMISTRY ORDERABLES Performing Organization Address [facility] Co de Phone Number [facility] [place] [address] * (ABNORMAL) Basic Metabolic Panel (non-fasting) (06/04/2023 2:05 PM EST) Glucose 225(H) 65 - 199 mg/dL [facility] Comment:Diabetes: >=200 mg/d L plus symptoms Blood Urea Nitrogen 19(H) 8 - 18 mg/dL [facility] Creatinine 1.05 0.70 - 1.20 mg/dL [facility] Sodium 135 135 - 145 mmol/L [facility] Potassium 4.8 3.5 - 5.0 mmol/L [facility] Comment: Please note: ??Patients with WBC >100,000 may have falsely elevated Potassium levels. ??For accurate Potassium quantification in these patients send serum separator tube (gold top) for subsequent determinations. ??Contact the Clinical Chemistry Laboratory if there are any questions. Chloride 104 98 - 107 mmol/L [facility] Carbon Dioxide 20(L) 22 - 31 mmol/L [facility] Anion Gap 11 5 - 15 mmol/L [facility] Calcium 8.7 8.5 - 10.5 mg/dL [facility] Est Glomerular Filtration Rate 73 >=60 mL/min/1. 73 m?? [facility] Comment: This patient's estimated GFR [...] Decker MD CHEMISTRY ORDERABLES Performing Organization Address City/[facility]/ZIP Co de Phone Number [facility] [place] [address] * Phosphorus (06/04/2023 12:05 PM EST) Phosphorus 3.4 2.5 - 4.5 mg/dL [facility] Blood 06/04/2023 12:0 5 PM EST 06/04/2023 12:23 PM EST Narrative Resulting Agency Comment Spec In Lab Gee Decker MD CHEMISTRY ORDERABLES Performing Organization Address City/[facility]/ZIP Co de Phone Number [facility] [place] [address] * Magnesium (06/04/2023 12:05 PM EST) Magnesium 0.81 0.69 - 1.07 mmol/L [facility] Blood 06/04/2023 12:0 5 PM EST 06/04/2023 12:23 PM EST Narrative Resulting Agency Comment Spec In Lab Gee Decker MD CHEMISTRY ORDERABLES [facility] [address] [place] [address] * (ABNORMAL) Basic Metabolic Panel (non-fasting) (06/04/2023 12:05 PM EST) Glucose 218(H) 65 - 199 mg/dL [facility] Comment:Diabetes: >=200 mg/d L plus symptoms Blood Urea Nitrogen 19(H) 8 - 18 mg/dL [facility] Creatinine 0.97 0.70 - 1.20 mg/dL [facility] Sodium 134(L) 135 - 145 mmol/L [facility] Potassium Not Perf 3.5 - 5.0 [facility] Comment: Unable to quantitate due to sample hemolysis. ??Sample redraw suggested. Called by: , Read back by: Kvng Cherry, Date/Time:06/04/23 13:27. Please note: ??Patients with WBC >100,000 may have falsely elevated Potassium levels. ??For accurate Potassium quantification in these patients send serum separator tube (gold top) for subsequent determinations. ??Contact the Clinical Chemistry Laboratory if there are any questions. Chloride 103 98 - 107 mmol/L [facility] Carbon Dioxide 20(L) 22 - 31 mmol/L [facility] Anion Gap 11 5 - 15 mmol/L [facility] Calcium 8.6 8.5 - 10.5 mg/dL [facility] Est Glomerular Filtration Rate 80 >=60 mL/min/1. 73 m?? [facility] Comment: This patient's estimated GFR [...] Decker MD CHEMISTRY ORDERABLES Performing Organization Address [facility] Co de Phone Number [facility] [place] [address] * POCT Glucose (06/04/2023 11:44 AM EST) Glucose, POC 184 65 - 199 mg/dL [facility] Comment: Supplemental ranges: <140 mg/dL before meals <180 mg/dL all other times of the day Blood 06/04/2023 11:4 4 AM EST 06/04/2023 11:44 AM EST Gee Decker MD POINT OF CARE TEST O RDERABLES Performing Organization Address [facility] Co de Phone Number [facility] [place] [address] * POCT Glucose (06/04/2023 10:24 AM EST) Glucose, POC 167 65 - 199 mg/dL [facility] Comment: Supplemental ranges: <140 mg/dL before meals <180 mg/dL all other times of the day Blood 06/04/2023 10:2 4 AM EST 06/04/2023 10:24 AM EST Gee Decker MD POINT OF CARE TEST O RDERABLES Performing Organization Address [facility] Co de Phone Number [facility] [place] [address] * (ABNORMAL) _Urinalysis with microscopic (06/04/2023 9:15 AM EST) Glucose, Urine Dipstick >=1000(Criti qing) Negative mg/dL [facility] Comment: Urinalysis result NOT critical without a combination of Glucose greater than or equal to 500 mg/dL AND Ketones greater than or equal to 80 mg/dL Protein, Urine Dipstick >=300(A) Negative mg/dL [facility] Bilirubin, Urine Dipstick Small(A) Negative mg/dL [facility] Comment: Clinical correlation required for positive Urine Bilirubin results as false positive may occur with some drugs and drug related products. If a false positive is suspected a serum total bilirubin should be considered if clinically indicated. Urobilinogen, Urine Dipstick Normal Normal mg/dL [facility] pH, Urn (dipstick) 5.5 5.0 - 8.0 [facility] Blood, Urine Dipstick Moderate(A) Negative mg/dL [facility] Ketone, Urine Dipstick Trace(A) Negative mg/dL [facility] Nitrite, Urine Dipstick Negative Negative [facility] Leukocytes, Urine Dipstick Negative Negative mcL [facility] Appearance, Urine Dipstick Cloudy(A) Clear [facility] Specific [place] Urine Automated >=1.030(A) 1.005 - 1.030 [facility] Color, Urine Dipstick Dark Yellow Yellow [facility] RBC, Urine 13(H) 0 - 4 /HPF [facility] WBC, Urine 27(H) 0 - 5 /HPF [facility] Bacteria, Urine Moderate(A) None /HPF [facility] Squamous Epithelial Cells Raw Data, Urine 5(H) <=4 /HPF [facility] Hyaline Casts, Urine 1 0 - 2 /LPF [facility] Granular Casts, Urine 1(H) <=0 /LPF [facility] WBC Cast, Urine <1(H) <=0 /LPF [facility] Urine Urine / Unknown 06/04/2023 9 :15 AM EST 06/04/2023 9:31 AM EST Narrative Resulting Agency Comment Spec In Lab Cristofer Fish MD URINE ORDERABLES [facility] [place] [address] * POCT Glucose (06/04/2023 7:15 AM EST) Pathologist [facility] Glucose, POC 171 65 - 199 mg/dL [facility] Comment: Supplemental ranges: <140 mg/dL before meals <180 mg/dL all other times of the day Blood 06/04/2023 7:15 AM EST 06/04/2023 7:15 AM EST Gee Decker MD POINT OF CARE TEST O RDERABLES Performing Organization Address [facility] Co de Phone Number [facility] [place] [address] * (ABNORMAL) Beta Hydroxybutyrate (06/04/2023 5:20 AM EST) [facility] Beta-hydroxybuturat e 0.52(H) 0.00 - 0.30 mmol/L [facility] Comment: This test has not been cleared by the US FDA. Performance characteristics of this test were determined by [facility] in accordance with CLIA requirements. This laboratory is qualified under CLIA to perform high-complexity testing. Blood Venous Draw / Unknown 06/04/2023 5:20 AM EST 06/04/2023 5:29 AM EST Narrative Resulting Agency Comment Spec In Lab Cristofer Fish MD CHEMISTRY ORDERABLES Performing Organization Address [facility] Co de Phone Number [facility] [place] [address] * (ABNORMAL) Differential, Automated (06/04/2023 5:20 AM EST) [facility] Neutrophil % 92.0 % [facility] Neutrophil Absolute 11.09(H) 1.70 - 6.10 x10(3)/mc L [facility] Lymph % 5.1 % [facility] Lymphocytes Abs 0.6(L) 0.9 - 3.2 x10(3)/mc L [facility] Monocyte % 2.6 % [facility] Monocyte Abs 0.3 0.3 - 0.9 x10(3)/mc L [facility] Eos % 0.0 % [facility] Eosinophils Abs 0.0 0.0 - 0.4 x10(3)/[facility] Basophil % 0.0 % [facility] Baso Absolute 0.0 0.0 - 0.1 x10(3)/ L [facility] Immature Gran % 0.30 % [facility] Comment: Immature granulocytes(IG's)percentage and absolute count will include metamyelocytes, myelocytes, and promyelocytes. Blood smears from CBCs yielding IG's will be scanned manually for concordance. If this scan disagrees with the automated IG or if promyelocytes are noted, a manual differential will be performed. Immature Gran Absolute 0.04 0.00 - 0.04 x10(3)/[facility] Blood 06/04/2023 5:20 AM EST 06/04/2023 5:28 AM EST Narrative Resulting Agency Comment Spec In Lab Cristofer Fish MD HEMATOLOGY ORDERABLE S Performing Organization Address City/State/[facility] Co de Phone Number [facility] [place] [address] * (ABNORMAL) Hemogram (06/04/2023 5:20 AM EST) White Blood Cell 12.0(H) 4.0 - 9.5 x10(3)/ L [facility] Red Blood Cell 4.68 4.00 - 5.21 x10(6)/[facility] Hemoglobin 13.5 11.7 - 15.5 g/dL [facility] Hematocrit 42.0 35.7 - 45.8 % [facility] Mean Cell Volume 89.7 82.6 - 94.4 fL [facility] Mean Cell Hemoglobin 28.8 27.1 - 32.0 pg [facility] Mean Cell Hemoglobin Concentration 32.1 31.7 - 35.0 g/dL [facility] Platelet 402(H) 145 - 357 x10(3)/ L [facility] RDW Standard Deviation 43.6 37.0 - 46.0 fL [facility] RDW coefficient of variation 13.2 11.5 - 14.1 % [facility] Mean Platelet Volume 10.4 7.6 - 12.9 fL [facility] NRBC% auto 0.0 % [facility] NRBC Absolute 0.000 0.000 - 0.000 x10(3)/mc L [facility] Blood 06/04/2023 5:20 AM EST 06/04/2023 5:28 AM EST Narrative Resulting Agency Comment Spec In Lab Cristofer Fish MD HEMATOLOGY ORDERABLE S Performing Organization Address City/[facility] Co de Phone Number [facility] [place] [address] * Phosphorus (06/04/2023 5:20 AM EST) Phosphorus 3.5 2.5 - 4.5 mg/dL [facility] Blood 06/04/2023 5:20 AM EST 06/04/2023 5:28 AM EST Narrative Resulting Agency Comment Spec In Lab Gee Decker MD CHEMISTRY ORDERABLES Performing Organization Address [facility] de Phone Number [facility] [place] [address] * Magnesium (06/04/2023 5:20 AM EST) Magnesium 0.78 0.69 - 1.07 mmol/L [facility] Blood 06/04/2023 5:20 AM EST 06/04/2023 5:28 AM EST Narrative Resulting Agency Comment Spec In Lab Gee Decker MD CHEMISTRY ORDERABLES Performing Organization Address [facility] de Phone Number [facility] [place] [address] * (ABNORMAL) Basic Metabolic Panel (non-fasting) (06/04/2023 5:20 AM EST) Glucose 164 65 - 199 mg/dL [facility] Comment:Diabetes: >=200 mg/d L plus symptoms Blood Urea Nitrogen 17 8 - 18 mg/dL [facility] Creatinine 0.98 0.70 - 1.20 mg/dL [facility] Sodium 135 135 - 145 mmol/L [facility] Potassium 5.4(H) 3.5 - 5.0 mmol/L [facility] Comment: Please note: ??Patients with WBC >100,000 may have falsely elevated Potassium levels. ??For accurate Potassium quantification in these patients send serum separator tube (gold top) for subsequent determinations. ??Contact the Clinical Chemistry Laboratory if there are any questions. Chloride 105 98 - 107 mmol/L [facility] Carbon Dioxide 18(L) 22 - 31 mmol/L [facility] Anion Gap 12 5 - 15 mmol/L [facility] Calcium 8.9 8.5 - 10.5 mg/dL [facility] Est Glomerular Filtration Rate 79 >=60 mL/min/1. 73 m?? [facility] Comment: This patient's estimated GFR [...] Decker MD CHEMISTRY ORDERABLES Performing Organization Address City/State/[facility] Co de Phone Number [facility] [place] [address] * (ABNORMAL) Basic Metabolic Panel (non-fasting) (06/03/2023 10:55 PM EST) Glucose 103 65 - 199 mg/dL [facility] Comment:Diabetes: >=200 mg/d L plus symptoms Blood Urea Nitrogen 12 8 - 18 mg/dL [facility] Creatinine 0.93 0.70 - 1.20 mg/dL [facility] Sodium 138 135 - 145 mmol/L [facility] Potassium 4.5 3.5 - 5.0 mmol/L [facility] Comment: Please note: ??Patients with WBC >100,000 may have falsely elevated Potassium levels. ??For accurate Potassium quantification in these patients send serum separator tube (gold top) for subsequent determinations. ??Contact the Clinical Chemistry Laboratory if there are any questions. Chloride 106 98 - 107 mmol/L [facility] Carbon Dioxide 21(L) 22 - 31 mmol/L [facility] Anion Gap 11 5 - 15 mmol/L [facility] Calcium 9.0 8.5 - 10.5 mg/dL [facility] Est Glomerular Filtration Rate 84 >=60 mL/min/1. 73 m?? [facility] Comment: This patient's estimated GFR [...] Decker MD CHEMISTRY ORDERABLES Performing Organization Address City/[facility]/ZIP Co de Phone Number [facility] [place] [address] * POCT Glucose (06/03/2023 8:27 PM EST) Glucose, POC 91 65 - 199 mg/dL [facility] Comment: Supplemental ranges: <140 mg/dL before meals <180 mg/dL all other times of the day Blood 06/03/2023 8:27 PM EST 06/03/2023 8:27 PM EST Gee Decker MD POINT OF CARE TEST O RDERABLES [facility] [place] [address] * POCT Glucose (06/03/2023 7:41 PM EST) Glucose, POC 118 65 - 199 mg/dL [facility] Comment: Supplemental ranges: <140 mg/dL before meals <180 mg/dL all other times of the day Blood 06/03/2023 7:41 PM EST 06/03/2023 7:41 PM EST Gee Decker MD POINT OF CARE TEST O RDERABLES [facility] [place] [address] * (ABNORMAL) POCT Glucose (06/03/2023 7:11 PM EST) Glucose, POC 50(Critica l) 65 - 199 mg/dL [facility] Comment: Supplemental ranges: <140 mg/dL before meals <180 mg/dL all other times of the day Blood 06/03/2023 7:11 PM EST 06/03/2023 7:11 PM EST Gee Decker MD POINT OF CARE TEST O RDERAEDWARD Performing Organization Address City/[facility] Co de Phone Number [facility] [place] [address] * POCT Glucose (06/03/2023 2:32 PM EST) Glucose, POC 88 65 - 199 mg/dL [facility] Comment: Supplemental ranges: <140 mg/dL before meals <180 mg/dL all other times of the day Blood 06/03/2023 2:32 PM EST 06/03/2023 2:32 PM EST Gee Decker MD POINT OF CARE TEST O RDERAEDWARD Performing Organization Address City/[facility] Co de Phone Number [facility] [place] [address] * (ABNORMAL) BLOOD GAS 2 ARTERIAL (06/03/2023 2:10 PM EST) pH, Arterial 7.34(L) 7.35 - 7.45 [facility] PCO2, Arterial 47(H) 35 - 45 mmHg [facility] PO2, Arterial 28(Critica l) 85 - 104 mmHg [facility] Comment:Noted by instrument tech. Bicarbonate, Arterial 24.7 20.0 - 26.0 mmol/L [facility] Base Excess, Arterial -1.1 -3.0 - 3.0 mmol/L [facility] Hgb Blood Gas 15.6(H) 11.7 - 15.5 g/dL [facility] Oxyhemoglobin, Arterial 53.1(L) 94.0 - 97.0 % [facility] Carboxyhemoglob in, Arterial 0.9 % [facility] Comment: Nonsmokers: 0.5-1.5% COHB Smokers: Variable, but usually less than 10% Toxic: 20-30% COHB Lethal: Greater than 60% COHB Methemoglobin, Arterial 0.3 <=1.5 % [facility] Na Whole Blood 142 135 - 145 mmol/L [facility] K Whole Blood 4.2 3.5 - 5.0 mmol/L [facility] Comment: Please note: Patients with WBC >100,000 may have falsely elevated Potassium levels. Contact the Clinical Chemistry Laboratory if there are any questions. ICa Whole Blood 1.23 1.15 - 1.33 mmol/L [facility] Comment: Note: ??Total bilirubin higher than 20 mg/dL may lead to falsely low ionized calcium. CL Whole Blood 105 98 - 107 mmol/L [facility] Gluc Whole Bld 61(L) 65 - 199 mg/dL [facility] Comment:Diabetes: >=200 mg/d L plus symptoms. Lactate WB 1.4 0.5 - 2.2 mmol/L [facility] Blood 06/03/2023 2:10 PM EST 06/03/2023 2:10 PM EST Gee Decker MD POINT OF CARE TEST O RDERABLES [facility] [place] [address] * (ABNORMAL) POCT Glucose (06/03/2023 2:05 PM EST) Glucose, POC 60(L) 65 - 199 mg/dL [facility] Comment: Supplemental ranges: <140 mg/dL before meals <180 mg/dL all other times of the day Blood 06/03/2023 2:05 PM EST 06/03/2023 2:05 PM EST Gee Decker MD POINT OF CARE TEST O RDERABLES Performing Organization Address [facility] Co de Phone Number [facility] [place] [address] * Beta Hydroxybutyrate (06/03/2023 2:00 PM EST) Beta-hydroxybuturat e 0.11 0.00 - 0.30 mmol/L [facility] Comment: This test has not been cleared by the [place] FDA. Performance characteristics of this test were determined by [facility] in accordance with CLIA requirements. This laboratory is qualified under CLIA to perform high-complexity testing. Blood 06/03/2023 2:00 PM EST 06/03/2023 2:28 PM EST Narrative Resulting Agency Comment Spec In Lab Renaldo Ramirez MD CHEMISTRY ORDERABLE S Performing Organization Address [facility] de Phone Number [facility] [place] [address] * (ABNORMAL) Basic Metabolic Panel (non-fasting) (06/03/2023 2:00 PM EST) Glucose 59(L) 65 - 199 mg/dL [facility] Comment:Diabetes: >=200 mg/d L plus symptoms Blood Urea Nitrogen 12 8 - 18 mg/dL [facility] Creatinine 0.86 0.70 - 1.20 mg/dL [facility] Sodium 140 135 - 145 mmol/L [facility] Potassium 4.3 3.5 - 5.0 mmol/L [facility] Comment: Please note: ??Patients with WBC >100,000 may have falsely elevated Potassium levels. ??For accurate Potassium quantification in these patients send serum separator tube (gold top) for subsequent determinations. ??Contact the Clinical Chemistry Laboratory if there are any questions. Chloride 105 98 - 107 mmol/L [facility] Carbon Dioxide 24 22 - 31 mmol/L [facility] Anion Gap 11 5 - 15 mmol/L [facility] Calcium 9.6 8.5 - 10.5 mg/dL [facility] Est Glomerular Filtration Rate 93 >=60 mL/min/1. 73 m?? [facility] Comment: This patient's estimated GFR [...] MD CHEMISTRY ORDERABLE S Performing Organization Address City/[facility]/ZIP Co de Phone Number [facility] [place] [address] * (ABNORMAL) POCT Glucose (06/03/2023 1:42 PM EST) Glucose, POC 53(Critica l) 65 - 199 mg/dL [facility] Comment: Supplemental ranges: <140 mg/dL before meals <180 mg/dL all other times of the day Blood 06/03/2023 1:42 PM EST 06/03/2023 1:42 PM EST Gee Decker MD POINT OF CARE TEST O RDERABLES Performing Organization Address City/[facility]/ZIP Co de Phone Number [facility] [place] [address] * (ABNORMAL) POCT Glucose (06/03/2023 1:14 PM EST) Glucose, POC 60(L) 65 - 199 mg/dL [facility] Comment: Supplemental ranges: <140 mg/dL before meals <180 mg/dL all other times of the day Blood 06/03/2023 1:14 PM EST 06/03/2023 1:14 PM EST Gee Decker MD POINT OF CARE TEST O RDERABLES [facility] [place] [address] documented in this encounter Visit Diagnoses Diagnosis [...] 40 % gel 1 dose, Starting on Wed06/03/23 at 1322, Until Wed06/03/23 at 1358, TABITHA GUERIN.: cabinet override 1 [...] Intravenous, EVERY 2 HOURS PRN, Starting on Wed06/03/23 at 2144, Until Wed06/04/23 at 0628, Pain, [...] 6 HOURS, 3 doses, First dose on Christa 06/03/23 at 2200, Last dose on Wed06/04/23 at [...] Starting on Christa 06/03/23 at 2200, Until Wed06/04/23 at 1058 New [...] PRN, 2 doses, Starting on Wed06/03/23 at 2032, Until Wed06/04/23 at 0139, Nausea, Maximum total [...] Gogo Riley RN)1800 (Given - Provider: Gustabo Russ, TOM) 0007 (Given - Provider: Eri Claros, TOM)0519 [...] Discontinued, Routine 2009 (Given - Provider: Eri Claros RN) dextrose 10% infusion (COMPLETED) 100 mL, Intravenous, [...] 0900 (Given - Provider: Gustabo Russ RN) gabapentin (Neurontin) capsule 300 mg 300 [...] Arthur RN) 2010 (Given - Provider: Eri Claros, TOM) insulin glargine-ygfn (Semglee) (100 unit/mL) subcutaneous injection vial 12 Units (CANCELED) 12 Units, Subcutaneous, DAILY, First dose on Wed06/04/23 at 0900, Until Discontinued, Routine 1044 (Given - Provider: Lorena Mesa, TOM) insulin glargine-ygfn (Semglee) (100 unit/mL) subcutaneous injection vial 12 Units 12 Units, Subcutaneous, 2 TIMES DAILY, First dose (after last modification) on Wed06/04/23 at 2100, Until Discontinued, Routine 2011 (Given - Provider: Eri Claros, TOM) 0900 (Given - Provider: Gustabo Russ RN) [...] Gustabo Russ RN)2010 (Given - Provider: Eri Claros RN) 0007 (Given - Provider: Eri Claros RN)0353 (Given - Provider: Eri Claros, TOM)0800 (Given - Provider: Gustabo Russ, TOM) ketorolac (Toradol) (15 mg/mL) injection 15 mg (COMPLETED) 15 mg, Intravenous, EVERY 6 HOURS, 3 doses, First dose on Christa 06/03/23 at 2200, Last dose on Wed06/04/23 at [...] to nausea) 0519 (Given - Provider: Eri Claros, TOM) losartan (Cozaar) tablet 25 mg 25 mg, Oral, DAILY, First dose on Wed06/04/23 at 1345, Until Discontinued, Routine 1509 (Given - Provider: Fercho Quinn RN) 0907 (Given - Provider: Gustabo Russ, TOM) metoprolol tartrate (Lopressor) tablet 50 mg 50 mg, Oral, EVERY 12 HOURS SCHEDULED (2 times per day), First dose on Wed06/04/23 at 0900, Until Discontinued, Cut in half and give both halves, Routine 0837 (Given - Provider: Gogo Riley, TOM)2010 (Given - Provider: Eri Claros RN) 09 (Given - Provider: Gustabo Russ, TOM) norethindrone (Aygestin) tablet 10 mg (CANCELED) 10 mg, Oral, 3 TIMES DAILY, First dose on Wed06/04/23 at 0900, Until Discontinued, Routine 0838 (Given - Provider: Gogo Riley, TOM) ondansetron (pf) (Zofran) (2 mg/mL) injection 4 [...] 2330 (Given - Provider: Paddy Arthur RN) 2009 (Given - Provider: Eri Claros, TOM) sennosides (Senokot) (1.76 mg/mL) oral liquid 8.8 mg (COMPLETED) 8.8 mg, Oral, ONCE, 1 dose, On 06/05/23 at 0845, Routine 0907 (Given - Provider: Gustabo Russ RN) sodium chloride 0.9 % (flush) (BD PosiFlush Normal Saline 0.9) flush 5 mL 5 mL, Intravenous, 2 TIMES DAILY, First dose on Christa 06/03/23 at 2200, Until Discontinued, Recovery (Recovery-Hospital Unit), Routine 2200 (Given - Provider: Paddy Arthur RN) 0838 (Given - Provider: Gogo Riley RN)2012 (Given - Provider: Eri Claros RN) 0907 (Given - Provider: Gustabo Russ, TOM) [...] 1350 1111 (New Bag - Provider: Gogo Riley, TOM)204 (New Bag - Provider: Lidya Mahajan, TOM) 0457 (New Bag - Provider: Eri Claros, [...] Starting on Christa 06/03/23 at 2200, Until Wed06/04/23 at 1058 2200 (New Bag - Provider: [...] Paddy Arthur RN)2058 (Given - Provider: Paddy Arthru RN)2121 (Given - Provider: Paddy Arthur RN)2199 (Given - Provider: Paddy F Arthur, RN) glucagon (Glucagen) (1 mg/mL) injection [...] ineffective use niCARdipine infusion., PACU Recovery, Routine 2100 (Given - Provider: Paddy Arthur RN) labetaloL [...] effective., Routine 2335 (Given - Provider: Paddy Arthur, TOM) 0737 (Given - Provider: Gustabo Russ, RN) sodium chloride 0.9 % (flush) (BD [...] at 2032, Until Wed06/04/23 at 013, Pain, Mild to moderate pain (1-5 out [...] Starting on Christa 06/03/23 at 2033, Until 1/19/24 at 0139, High Blood Pressure, Administer for [...] Routine documented in this encounter Care Teams Survey Interviewer Relationship Specialty Start Date End Date Lia Pearson APRN [address] [place] [address] PCP - General Geriatric Medicine 02/09/22 documented as of this encounter
--- OUTSIDE RECORDS SUMMARY | 2024-02-13 18:02 | XMS_ITS | Encounter Summary ---
[place] [address] Care Team Providers Care Stitchdowns Toe Former Name Role Phone Lia Pearson APRN Primary Care Provider [phone] Encounter Details Date Type Department Care Team (Late st Contact Info) Description 06/02/2023 Telephone Obstetrics [place] [phone] Bismark Guerrero Social History Tobacco Use Types [...] [place] Sent: 06/01/2023 12:40 PM EST To: [facility] Copy Chief Nurse Subject: IUD Yes please documented in [...] can, buy fresh vegetables and fruit from [employer]-sent message with resources -Choose whole grain options [...] Note: Practice STOP and Urge Surfing. [employer] Developer will send hand-outs. Movement Lifestyle On track(08/03/2 023 1:14 PM EDT) Riddhi Buchanan RD Note: Continue to walk stairs and walks when can. Will continue using stairs as it's colder. Look into finding weights free online or at [employer] stores. Could use water-filled milk jugs as weights-a full gallon jug would be 8 lbs. Will look into nearby rec center 04/16/22 NATHALIA documented as of this encounter Visit Diagnoses Not on filedocumented in this encounter Care Teams Stitchdowns Toe Former Relationship Specialty Start Date End Date Lia Pearson APRN [address] [place] [address] PCP - General Geriatric Medicine 02/09/22 documented as of this encounter
--- OUTSIDE RECORDS SUMMARY | 2024-02-13 18:02 | XMS_ITS | Encounter Summary ---
Author Organization [facility] [place] [address] Care Team Providers Care Reinforcing Metal Worker Name Role Phone Lia Pearson APRN Primary Care Provider [phone] Encounter Details Date Type Department Care Team (Late st Contact Info) Description 03/26/2023 Telephone [place] [phone] Deneen Campbell RN Social History Tobacco Use [...] can, buy fresh vegetables and fruit from [employer] market-sent message with resources -Choose whole [...] Note: Practice STOP and Urge Surfing. [employer] Maker will send hand-outs. Movement Lifestyle On track( 1:14 PM EDT) Riddhi Buchanan RD Note: Continue to walk stairs and walks when can. Will continue using stairs as it's colder. Look into finding weights free online or at [employer]. Could use water-filled milk jugs as weights-a full gallon jug would be 8 lbs. Will look into nearby [facility] 04/16/22 NATHALIA documented as of this encounter Visit Diagnoses Not on filedocumented in this encounter Care Teams Reinforcing Metal Worker Relationship Specialty Start Date End Date Lia Pearson APRN [address] [place] [address] PCP - General Geriatric Medicine 02/09/22 documented as of this encounter
--- OUTSIDE RECORDS SUMMARY | 2024-02-13 18:02 | XMS_ITS | Encounter Summary ---
Author Organization [facility] [place] [address] Care Team Providers Care Dot Compliance Manager Name Role Phone Lia Pearson OIL AND GAS RECRUITER Primary Care Provider [phone] Reason for Visit * Auth/Cert (Routine) Specialty Diagnoses / Procedures Referred By Della kern Referred To Contact Diagnoses Morbid Obesity Procedures PRO GASTRIC BYPASS, OBESE<150CM VERNELL-EN-Y PRO LAP GASTRIC BYPASS/VERNELL-EN-Y @LAPAROSCOPIC GASTROPLASTY W/ VERNELL-EN-Y CONSTRUCTION (WRVU 29.4) Gee Decker MD [facility] [place] [address] [place] Referral ID Status Reason Start Date Expiration Date Visits Re quested Visits Authorized [id number] 1 1 Encounter Details Date Type Department Care Team (Late st Contact Info) Description 06/03/2023 2:37 PM EST - 06/03/2023 6:52 PM EST Surgery [place] [id number] Gee Decker MD [facility] [address] [place], [place] [id number] @LAPAROSCOPIC GASTROPLASTY W/ VERNELL-EN-Y CONSTRUCTION (WRVU 29.4) [...] hypertension, benign I10 Long-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 Hospital Course: Zenia Worlye is a 33 y.o. female who was [...] RD; Asiya Giraldo APRN General Surgery at [facility] Arrive at: [place] [phone] Please dispose of unused excess opioids before your appointment or bring them with you to the appointment and we will help you dispose of them correctly. 07/08/2023 3:45 PM Michael Morgan, DO Interventional Radiology at [facility] Arrive at: Home [phone] Please do not come in for this visit. Your provider will call you at the number you provided. 07/09/2023 9:20 AM Zay Ferreira APRN Obstetrics and Gynecology at [facility] Arrive at: [place] 09/24/2023 1:[address]; Asiya Giraldo APRN General Surgery at [facility] Arrive at: [place] [phone] Instructions Given to Patient at Discharge: Patient Instructions Discharge Instructions - Bariatric Surgery NEW PRESCRIPTIONS: supervisor travel trailer at [facility] today: Lovenox, omeprazole, Zofran (ondansetron), liquid oxycodone, Miralax, Colace supervisor travel trailer at your home pharmacy: ursodiol HOME MEDICATION [...] - 5pm): General Surgery and Bariatric Surgery [phone] Bariatric Surgeons: Everton Arredondo Trus [phone] School Transportation Director: [phone] Dietitians: [phone] Outside of regular business hours, including weekends and holidays: Ask for General Surgery resident child welfare consultant [phone] Please note, this call will be answered [...] Surgery Team in 3 weeks at the [facility] ([place] [address], [facility]). Future Appointments Date Time Provider Department Center 06/25/2023 2:00 PM Asiya Giraldo APRN [facility] SURG [facility] 07/08/2023 3:45 PM Michael Morgan DO [facility] IR 3V [facility] 07/09/2023 9:20 AM Zay Ferreira APRN [facility] OBG 5L [facility] 09/24/2023 1:00 PM Asiya Giraldo APRN [facility] SURG [facility] WOUND CARE You have steri-strips and Band-Aids [...] twice daily. Please call or send a [employer] message if you do not have a [...] for assistance to pay for this with [employer]. Go to [email or web address] and put in the prescription and the [...] Follow up with primary care provider or curriculum and instruction specialist in 1-2 weeks in order to [...] RD; Asiya Giraldo APRN General Surgery at [facility] Arrive at: [place] [phone] Please dispose of unused excess opioids before your appointment or bring them with you to the appointment and we will help you dispose of them correctly. 07/08/2023 3:45 PM Michael Morgan, DO Interventional Radiology at [facility] Arrive at: [place] [phone] Please do not come in for this visit. Your provider will call you at the number you provided. 07/09/2023 9:20 AM Zay Ferreira APRN Obstetrics and Gynecology at [facility] Arrive at: [place] 5L [phone] 09/24/2023 1:[address]; Asiya Giraldo APRN General Surgery at [facility] Arrive at: [place] 4L [phone] Signed: Cristofer Fish MD General Surgery PGY-4 [id number] Primary [place] Physician: Lia Pearson APRN [address] / [facility] [id number] documented in this encounter Discharge Instructions * Patient Instructions* Cristofer Fish MD - 06/04/2023 2:58 PM EST Images from the original note were not included. Discharge Instructions - Bariatric Surgery NEW PRESCRIPTIONS: supervisor travel trailer at [facility] today: Lovenox, omeprazole, Zofran (ondansetron), liquid oxycodone, Miralax, Colace supervisor travel trailer at your home pharmacy: ursodiol HOME MEDICATION [...] - 5pm): General Surgery and Bariatric Surgery [phone] Bariatric Surgeons: Everton Arredondo, Diane [phone] School Transportation Director: [phone] Dietitians: [phone] Outside of regular business hours, including weekends and holidays: Ask for General Surgery resident child welfare consultant [phone] Please note, this call will be answered [...] Surgery Team in 3 weeks at the [facility] ([place] 4L, [facility]). Future Appointments Date Time Provider Department Center 06/25/2023 2:00 PM Asiya Giraldo APRN [facility] SURG [facility] 07/08/2023 3:45 PM Michael Morgan, [facility] IR 3V [facility] 07/09/2023 9:20 AM Zay Ferreira [facility] OBG 5L [facility] 09/24/2023 1:00 PM Asiya Giraldo OIL AND GAS RECRUITER [facility] SURG [facility] WOUND CARE You have steri-strips and Band-Aids [...] twice daily. Please call or send a [employer] message if you do not have a [...] for assistance to pay for this with [employer]. Go to [email or web address] and put in the prescription and the [...] Follow up with primary care provider or curriculum and instruction specialist in 1-2 weeks in order to [...] Patient voiding to BR w/ SBA. 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 and patient is passing [...] Kadeem, Purposeful Rounding, Nurse Knowledge Exchange * Cristofer [...] MD 06/04/2023 Minimally Invasive Surgery, Team Pager [phone] documented in this encounter H&P Notes * [...] (WRVU 4.74) performed by Sabrina Swain MD [facility] MAIN OR PRO INSERT INTRAUTERINE DEVICE N/A 03/03/2022 INSERTION OF IUD, VAGINAL APPROACH (WRVU 1.01) performed by Sabrina Swain MD at [facility] MAIN OR PRO PELVIC EXAMINATION W ANESTH N/A 03/03/2022 PELVIC EXAM UNDER ANESTHESIA (WRVU 1.75) performed by Sabrina Swain MD at [facility] MAIN OR cholecalciferol, Vitamin D3, 1,250 [...] are faxed to her endocrine team at [facility] as well as her PCP at [place] Please ask Dr. Decker/surgery team to consider [...] management and to provide a review of usp diabetes care. Diabetes History: Zenia Worley has [...] sulfa at that time. Was living in [place] where she is from. Moved to [place] 3 years ago. Has needed less insulin over the years and espeically since Current outpatient diabetes regimen: Diabetes Provider: Lisa Yan NP [facility] [place] [facility] - [facility] Endocrinology [address], [place] [address] Lisa Yan NP [address] [place] [phone] Medications: Jardiance 10 mg PO last taken by accident Wednesday although had stopped taking Wednesday prior Mounjaro weekly (new since December-likes it very much) last dose 2 weeks prior at recs from pre op Lantus 17 units in AM and 18 units in PM(this has been reduced even more recently (06/01) by endo team at [facility] in [place] Novolog/humalog (based upon insurance changes) with correction and some carbohydrate counting recently 15-20 units pre meal TID Metformin 1000 XR BID NOW THIS IS FROM [facility]/SUFFERN OFFiCE NOTE 01/29/2023: TSH 1.42 (09/2022) Levothyroxine 200 mcg [facility] DM: dad, brother Recent A1C: 6.7 [...] ACEI/ARB: losartan 25 mg Prior visit with financial reporting analyst: CORNELIO Aguayo Foot care: self Comorbidities: Retinopathy: [...] yes-gets signals WAS ADMITTED [address] [facility] and one time her airway failed for hypoglycemia when she still lived in [place] Diabetes education: + in the past and [...] Dr. Decker's team and Lisa Arciniega endocrine TELESALES REPRESENTATIVE when and if she should resume Mounjaro [...] through insurance is has proven in this caption writer's experience to be significantly challenging. We [...] are faxed to her endocrine team at [facility] as well as her PCP at [place] Please ask Dr. Decker to consider if [...] pharmacist in person about this when you pick pack worker new version. Jardiance When you are drinking [...] Decker MD - 06/03/2023 4:56 PM EST [facility] Operative Note Patient Name: Zenia Worley : [id number] MR#: [id number] Case Date: 06/03/2023 Surgeon: Surgeon(s) and Role: [...] position. The abdomen was entered using the [employer] trocar system. The 10-mm port was placed [...] distal bowel was chosen to create the [id number] jejunojejunostomy. The duodenal, afferent limb was approximated [...] suture in two layers with a 30 Greek Bougie (blunt-tipped) in place. The Bougie was [...] Note: Practice STOP and Urge Surfing. Health Animal Control Specialist will send hand-outs. Movement Lifestyle On track( 023 1:14 PM EDT) No Riddhi Wilson RD Note: Continue to walk stairs and walks when can. Will continue using stairs as it's colder. Look into finding weights free online or at [employer] stores. Could use water-filled milk jugs as [...] 06/03/2023 7:11 PM EST Lap Gastric Bypass/Vernell-En-Y ([id number]) 06/03/2023 4:05 PM EST Morbid Obesity POCT [...] (ABNORMAL) POCT Glucose (06/05/2023 7:55 AM EST) [facility] Glucose, POC 203(H) 65 - 199 mg/dL [facility] Comment: Supplemental ranges: <140 mg/dL before meals <180 mg/dL all other times of the day Blood 06/05/2023 7:55 AM EST 06/05/2023 7:55 AM EST Gee Decker MD POINT OF CARE TEST O RDERABLES [facility] [place] [address] * Lavender Tube HOLD (06/05/2023 5:28 AM EST) Lavender Hold Sample in lab. [facility] Blood Venous Draw / Unknown 06/05/2023 5:28 AM EST 06/05/2023 5:56 AM EST Cristofer Fish MD HEMATOLOGY ORDERABLE S Performing Organization Address City/[facility]/ZIP Co de Phone Number [facility] [place] [address] * C-peptide (06/05/2023 5:28 AM EST) C-Peptide 2.0 1.1 - 4.4 ng/mL [facility] Comment:Reference intervals derived from fasting individuals Blood 06/05/2023 5:28 AM EST 06/05/2023 5:53 AM EST Narrative Resulting Agency Comment Spec In Lab Gee Decker MD CHEMISTRY ORDERABLES Performing Organization Address City/[facility] Co de Phone Number [facility] [place] [place] [address] * (ABNORMAL) Phosphorus (06/05/2023 5:28 AM EST) Phosphorus 2.3(L) 2.5 - 4.5 mg/dL [facility] Blood 06/05/2023 5:28 AM EST 06/05/2023 5:53 AM EST Narrative Resulting Agency Comment Spec In Lab Gee Decker MD CHEMISTRY ORDERABLES Performing Organization Address City/[facility]/ZIP Co de Phone Number [facility] [place] [place] [address] * Magnesium (06/05/2023 5:28 AM EST) Magnesium 0.84 0.69 - 1.07 mmol/L [facility] Blood 06/05/2023 5:28 AM EST 06/05/2023 5:53 AM EST Narrative Resulting Agency Comment Spec In Lab Gee Decker MD CHEMISTRY ORDERABLES Performing Organization Address City/State/[facility] Co de Phone Number [facility] [place] [address] * (ABNORMAL) Basic Metabolic Panel (non-fasting) (06/05/2023 5:28 AM EST) Glucose 214(H) 65 - 199 mg/dL [facility] Comment:Diabetes: >=200 mg/d L plus symptoms Blood Urea Nitrogen 17 8 - 18 mg/dL [facility] Creatinine 0.88 0.70 - 1.20 mg/dL [facility] Sodium 135 135 - 145 mmol/L [facility] Potassium 4.6 3.5 - 5.0 mmol/L [facility] Comment: Please note: ??Patients with WBC >100,000 may have falsely elevated Potassium levels. ??For accurate Potassium quantification in these patients send serum separator tube (gold top) for subsequent determinations. ??Contact the Clinical Chemistry Laboratory if there are any questions. Chloride 104 98 - 107 mmol/L [facility] Carbon Dioxide 20(L) 22 - 31 mmol/L [facility] Anion Gap 11 5 - 15 mmol/L [facility] Calcium 8.7 8.5 - 10.5 mg/dL [facility] Est Glomerular Filtration Rate 90 >=60 mL/min/1. 73 m?? [facility] Comment: This patient's estimated GFR was [...] Organization Address [facility] Co de Phone Number [facility] [place] [place] [address] * POCT Glucose (06/05/2023 3:51 AM EST) Glucose, POC 175 65 - 199 mg/dL [facility] Comment: Supplemental ranges: <140 mg/dL before meals <180 mg/dL all other times of the day Blood 06/05/2023 3:51 AM EST 06/05/2023 3:51 AM EST Gee Decker MD POINT OF CARE TEST O RDERAEDWARD Performing Organization Address [facility] Co de Phone Number [facility] [place] [place] [address] * POCT Glucose (06/04/2023 11:58 PM EST) Glucose, POC 178 65 - 199 mg/dL [facility] Comment: Supplemental ranges: <140 mg/dL before meals <180 mg/dL all other times of the day Blood 06/04/2023 11:5 8 PM EST 06/04/2023 11:58 PM EST Gee Decker MD POINT OF CARE TEST O JET Performing Organization Address [facility] Co de Phone Number [facility] [place] [place] [address] * POCT Glucose (06/04/2023 7:51 PM EST) Glucose, POC 195 65 - 199 mg/dL [facility] Comment: Supplemental ranges: <140 mg/dL before meals <180 mg/dL all other times of the day Blood 06/04/2023 7:51 PM EST 06/04/2023 7:51 PM EST Gee Decker MD POINT OF CARE TEST O JET Performing Organization Address [facility] Co de Phone Number [facility] [place] [place] [address] * POCT Glucose (06/04/2023 4:42 PM EST) Glucose, POC 176 65 - 199 mg/dL [facility] Comment: Supplemental ranges: <140 mg/dL before meals <180 mg/dL all other times of the day Blood 06/04/2023 4:42 PM EST 06/04/2023 4:42 PM EST Gee Decker MD POINT OF CARE TEST O JET Performing Organization Address [facility] Co de Phone Number [facility] [place] [place] [address] * Beta Hydroxybutyrate (06/04/2023 2:05 PM EST) Beta-hydroxybuturat e 0.20 0.00 - 0.30 mmol/L [facility] Comment: This test has not been cleared by the [place] FDA. Performance characteristics of this test were determined by [facility] in accordance with CLIA requirements. This laboratory is qualified under CLIA to perform high-complexity testing. Blood 06/04/2023 2:05 PM EST 06/04/2023 2:17 PM EST Narrative Resulting Agency Comment Spec In Lab Gee Decker MD CHEMISTRY ORDERABLES Performing Organization Address [facility] Co de Phone Number [facility] [place] [place] [address] * (ABNORMAL) Basic Metabolic Panel (non-fasting) (06/04/2023 2:05 PM EST) Glucose 225(H) 65 - 199 mg/dL [facility] Comment:Diabetes: >=200 mg/d L plus symptoms Blood Urea Nitrogen 19(H) 8 - 18 mg/dL [facility] Creatinine 1.05 0.70 - 1.20 mg/dL [facility] Sodium 135 135 - 145 mmol/L [facility] Potassium 4.8 3.5 - 5.0 mmol/L [facility] Comment: Please note: ??Patients with WBC >100,000 may have falsely elevated Potassium levels. ??For accurate Potassium quantification in these patients send serum separator tube (gold top) for subsequent determinations. ??Contact the Clinical Chemistry Laboratory if there are any questions. Chloride 104 98 - 107 mmol/L [facility] Carbon Dioxide 20(L) 22 - 31 mmol/L [facility] Anion Gap 11 5 - 15 mmol/L [facility] Calcium 8.7 8.5 - 10.5 mg/dL [facility] Est Glomerular Filtration Rate 73 >=60 mL/min/1. 73 m?? [facility] Comment: This patient's estimated GFR was [...] Decker MD CHEMISTRY ORDERABLES Performing Organization Address City/[facility]/ZIP Co de Phone Number [facility] [place] [place] [address] * Phosphorus (06/04/2023 12:05 PM EST) Phosphorus 3.4 2.5 - 4.5 mg/dL [facility] Blood 06/04/2023 12:0 5 PM EST 06/04/2023 12:23 PM EST Narrative Resulting Agency Comment Spec In Lab Gee Decker MD CHEMISTRY ORDERABLES Performing Organization Address City/[facility]/ZIP Co de Phone Number [facility] [place] [place] [address] * Magnesium (06/04/2023 12:05 PM EST) Magnesium 0.81 0.69 - 1.07 mmol/L [facility] Blood 06/04/2023 12:0 5 PM EST 06/04/2023 12:23 PM EST Narrative Resulting Agency Comment Spec In Lab Gee Decker MD CHEMISTRY ORDERABLES [facility] [place] [address] * (ABNORMAL) Basic Metabolic Panel (non-fasting) (06/04/2023 12:05 PM EST) Glucose 218(H) 65 - 199 mg/dL [facility] Comment:Diabetes: >=200 mg/d L plus symptoms Blood Urea Nitrogen 19(H) 8 - 18 mg/dL [facility] Creatinine 0.97 0.70 - 1.20 mg/dL [facility] Sodium 134(L) 135 - 145 mmol/L [facility] Potassium Not Perf 3.5 - 5.0 [facility] Comment: Unable to quantitate due [...] Chloride 103 98 - 107 mmol/L [facility] Carbon Dioxide 20(L) 22 - 31 mmol/L [facility] Anion Gap 11 5 - 15 mmol/L [facility] Calcium 8.6 8.5 - 10.5 mg/dL [facility] Est Glomerular Filtration Rate 80 >=60 mL/min/1. 73 m?? [facility] Comment: This patient's estimated GFR was [...] Decker MD CHEMISTRY ORDERABLES Performing Organization Address City/[facility] Co de Phone Number [facility] [place] [place] [address] * POCT Glucose (06/04/2023 11:44 AM EST) Glucose, POC 184 65 - 199 mg/dL [facility] Comment: Supplemental ranges: <140 mg/dL before meals <180 mg/dL all other times of the day Blood 06/04/2023 11:4 4 AM EST 06/04/2023 11:44 AM EST Gee Decker MD POINT OF CARE TEST O RDERABLES Performing Organization Address [facility] Co de Phone Number [facility] [place] [address] * POCT Glucose (06/04/2023 10:24 AM EST) Glucose, POC 167 65 - 199 mg/dL [facility] Comment: Supplemental ranges: <140 mg/dL before meals <180 mg/dL all other times of the day Blood 06/04/2023 10:2 4 AM EST 06/04/2023 10:24 AM EST Gee Decker MD POINT OF CARE TEST O RDERABLES Performing Organization Address City/[facility] Co de Phone Number [facility] [place] [address] * (ABNORMAL) _Urinalysis with microscopic (06/04/2023 9:15 AM EST) Glucose, Urine Dipstick >=1000(Criti qing) Negative mg/dL [facility] Comment: Urinalysis result NOT critical without a combination of Glucose greater than or equal to 500 mg/dL AND Ketones greater than or equal to 80 mg/dL Protein, Urine Dipstick >=300(A) Negative mg/dL [facility] Bilirubin, Urine Dipstick Small(A) Negative mg/dL [facility] Comment: Clinical correlation required for positive Urine Bilirubin results as false positive may occur with some drugs and drug related products. If a false positive is suspected a serum total bilirubin should be considered if clinically indicated. Urobilinogen, Urine Dipstick Normal Normal mg/dL [facility] pH, Urn (dipstick) 5.5 5.0 - 8.0 [facility] Blood, Urine Dipstick Moderate(A) Negative mg/dL [facility] Ketone, Urine Dipstick Trace(A) Negative mg/dL [facility] Nitrite, Urine Dipstick Negative Negative [facility] Leukocytes, Urine Dipstick Negative Negative [facility] Appearance, Urine Dipstick Cloudy(A) Clear [facility] Specific [place] Urine Automated >=1.030(A) 1.005 - 1.030 [facility] Color, Urine Dipstick Dark Yellow Yellow [facility] RBC, Urine 13(H) 0 - 4 /HPF [facility] WBC, Urine 27(H) 0 - 5 /HPF [facility] Bacteria, Urine Moderate(A) None /HPF [facility] Squamous Epithelial Cells Raw Data, Urine 5(H) <=4 /HPF [facility] Hyaline Casts, Urine 1 0 - 2 /LPF [facility] Granular Casts, Urine 1(H) <=0 /LPF [facility] WBC Cast, Urine <1(H) <=0 /LPF [facility] Urine Urine / Unknown 06/04/2023 9 :15 AM EST 06/04/2023 9:31 AM EST Narrative Resulting Agency Comment Spec In Lab Cristofer Fish MD URINE ORDERABLES [facility] [place] [address] * POCT Glucose (06/04/2023 7:15 AM EST) [facility] Glucose, POC 171 65 - 199 mg/dL [facility] Comment: Supplemental ranges: <140 mg/dL before meals <180 mg/dL all other times of the day Blood 06/04/2023 7:15 AM EST 06/04/2023 7:15 AM EST Gee Decker MD POINT OF CARE TEST O RDERABLES Performing Organization Address [facility] Co de Phone Number [facility] [place] [address] * (ABNORMAL) Beta Hydroxybutyrate (06/04/2023 5:20 AM EST) [facility] Beta-hydroxybuturat e 0.52(H) 0.00 - 0.30 mmol/L [facility] Comment: This test has not been cleared by the [place] FDA. Performance characteristics of this test were determined by [facility] in accordance with CLIA requirements. This laboratory is qualified under CLIA to perform high-complexity testing. Blood Venous Draw / Unknown 06/04/2023 5:20 AM EST 06/04/2023 5:29 AM EST Narrative Resulting Agency Comment Spec In Lab Cristofer Fish MD CHEMISTRY ORDERABLES Performing Organization Address [facility] Co de Phone Number [facility] [place] [address] * (ABNORMAL) Differential, Automated (06/04/2023 5:20 AM EST) [facility] Neutrophil % 92.0 % [facility] Neutrophil Absolute 11.09(H) 1.70 - 6.10 x10(3)/mc L [facility] Lymph % 5.1 % [facility] Lymphocytes Abs 0.6(L) 0.9 - 3.2 x10(3)/mc L [facility] Monocyte % 2.6 % [facility] Monocyte Abs 0.3 0.3 - 0.9 x10(3)/mc L [facility] Eos % 0.0 % [facility] Eosinophils Abs 0.0 0.0 - 0.4 x10(3)/mc L [facility] Basophil % 0.0 % [facility] Baso Absolute 0.0 0.0 - 0.1 x10(3)/mc L [facility] Immature Gran % 0.30 % [facility] Comment: Immature granulocytes(IG's)percentage and absolute count will include metamyelocytes, myelocytes, and promyelocytes. Blood smears from CBCs yielding IG's will be scanned manually for concordance. If this scan disagrees with the automated IG or if promyelocytes are noted, a manual differential will be performed. Immature Gran Absolute 0.04 0.00 - 0.04 x10(3)/mc L [facility] Blood 06/04/2023 5:20 AM EST 06/04/2023 5:28 AM EST Narrative Resulting Agency Comment Spec In Lab Cristofer Fish MD HEMATOLOGY ORDERABLE S Performing Organization Address City/State/[facility] Co de Phone Number [facility] [place] [address] * (ABNORMAL) Hemogram (06/04/2023 5:20 AM EST) White Blood Cell 12.0(H) 4.0 - 9.5 x10(3)/mc L [facility] Red Blood Cell 4.68 4.00 - 5.21 x10(6)/mc L [facility] Hemoglobin 13.5 11.7 - 15.5 g/dL [facility] Hematocrit 42.0 35.7 - 45.8 % [facility] Mean Cell Volume 89.7 82.6 - 94.4 fL [facility] Mean Cell Hemoglobin 28.8 27.1 - 32.0 pg [facility] Mean Cell Hemoglobin Concentration 32.1 31.7 - 35.0 g/dL [facility] Platelet 402(H) 145 - 357 x10(3)/mc L [facility] RDW Standard Deviation 43.6 37.0 - 46.0 fL [facility] RDW coefficient of variation 13.2 11.5 - 14.1 % [facility] Mean Platelet Volume 10.4 7.6 - 12.9 fL [facility] NRBC% auto 0.0 % [facility] NRBC Absolute 0.000 0.000 - 0.000 x10(3)/mc L [facility] Blood 06/04/2023 5:20 AM EST 06/04/2023 5:28 AM EST Narrative Resulting Agency Comment Spec In Lab Cristofer Fish MD HEMATOLOGY ORDERABLE S Performing Organization Address City/[facility]/ZIP Co de Phone Number [facility] [place] [place] [address] * Phosphorus (06/04/2023 5:20 AM EST) Phosphorus 3.5 2.5 - 4.5 mg/dL [facility] Blood 06/04/2023 5:20 AM EST 06/04/2023 5:28 AM EST Narrative Resulting Agency Comment Spec In Lab Gee Decker MD CHEMISTRY ORDERABLES Performing Organization Address [facility] Co de Phone Number [facility] [place] [place] [address] * Magnesium (06/04/2023 5:20 AM EST) Magnesium 0.78 0.69 - 1.07 mmol/L [facility] Blood 06/04/2023 5:20 AM EST 06/04/2023 5:28 AM EST Narrative Resulting Agency Comment Spec In Lab Gee Decker MD CHEMISTRY ORDERABLES Performing Organization Address [facility] Co de Phone Number [facility] [place] [place] [address] * (ABNORMAL) Basic Metabolic Panel (non-fasting) (06/04/2023 5:20 AM EST) Glucose 164 65 - 199 mg/dL [facility] Comment:Diabetes: >=200 mg/d L plus symptoms Blood Urea Nitrogen 17 8 - 18 mg/dL [facility] Creatinine 0.98 0.70 - 1.20 mg/dL [facility] Sodium 135 135 - 145 mmol/L [facility] Potassium 5.4(H) 3.5 - 5.0 mmol/L [facility] Comment: Please note: ??Patients with WBC >100,000 may have falsely elevated Potassium levels. ??For accurate Potassium quantification in these patients send serum separator tube (gold top) for subsequent determinations. ??Contact the Clinical Chemistry Laboratory if there are any questions. Chloride 105 98 - 107 mmol/L [facility] Carbon Dioxide 18(L) 22 - 31 mmol/L [facility] Anion Gap 12 5 - 15 mmol/L [facility] Calcium 8.9 8.5 - 10.5 mg/dL [facility] Est Glomerular Filtration Rate 79 >=60 mL/min/1. 73 m?? [facility] Comment: This patient's estimated GFR was [...] Decker MD CHEMISTRY ORDERABLES Performing Organization Address City/State/[facility] Co de Phone Number [facility] [place] [place] [address] * (ABNORMAL) Basic Metabolic Panel (non-fasting) (06/03/2023 10:55 PM EST) Glucose 103 65 - 199 mg/dL [facility] Comment:Diabetes: >=200 mg/d L plus symptoms Blood Urea Nitrogen 12 8 - 18 mg/dL [facility] Creatinine 0.93 0.70 - 1.20 mg/dL [facility] Sodium 138 135 - 145 mmol/L [facility] Potassium 4.5 3.5 - 5.0 mmol/L [facility] Comment: Please note: ??Patients with WBC >100,000 may have falsely elevated Potassium levels. ??For accurate Potassium quantification in these patients send serum separator tube (gold top) for subsequent determinations. ??Contact the Clinical Chemistry Laboratory if there are any questions. Chloride 106 98 - 107 mmol/L [facility] Carbon Dioxide 21(L) 22 - 31 mmol/L [facility] Anion Gap 11 5 - 15 mmol/L [facility] Calcium 9.0 8.5 - 10.5 mg/dL [facility] Est Glomerular Filtration Rate 84 >=60 mL/min/1. 73 m?? [facility] Comment: This patient's estimated GFR was [...] Organization Address [facility] Co de Phone Number [facility] [place] [place] [address] * POCT Glucose (06/03/2023 8:27 PM EST) Glucose, POC 91 65 - 199 mg/dL [facility] Comment: Supplemental ranges: <140 mg/dL before meals <180 mg/dL all other times of the day Blood 06/03/2023 8:27 PM EST 06/03/2023 8:27 PM EST Gee Decker MD POINT OF CARE TEST O RDERABLES Performing Organization Address City/[facility]/ZIP Co de Phone Number [facility] [place] [place] [address] * POCT Glucose (06/03/2023 7:41 PM EST) Glucose, POC 118 65 - 199 mg/dL [facility] Comment: Supplemental ranges: <140 mg/dL before meals <180 mg/dL all other times of the day Blood 06/03/2023 7:41 PM EST 06/03/2023 7:41 PM EST Gee Decker MD POINT OF CARE TEST O JET Performing Organization Address City/State/[facility] Co de Phone Number [facility] [place] [place] [address] * (ABNORMAL) POCT Glucose (06/03/2023 7:11 PM EST) Glucose, POC 50(Critica l) 65 - 199 mg/dL [facility] Comment: Supplemental ranges: <140 mg/dL before meals <180 mg/dL all other times of the day Blood 06/03/2023 7:11 PM EST 06/03/2023 7:11 PM EST Gee Decker MD POINT OF CARE TEST O JET Performing Organization Address [facility] Co de Phone Number [facility] [place] [place] [address] * POCT Glucose (06/03/2023 2:32 PM EST) Glucose, POC 88 65 - 199 mg/dL [facility] Comment: Supplemental ranges: <140 mg/dL before meals <180 mg/dL all other times of the day Blood 06/03/2023 2:32 PM EST 06/03/2023 2:32 PM EST Gee Decker MD POINT OF CARE TEST O JET Performing Organization Address City/[facility] Co de Phone Number [facility] [place] [place] [address] * (ABNORMAL) BLOOD GAS 2 ARTERIAL (06/03/2023 2:10 PM EST) pH, Arterial 7.34(L) 7.35 - 7.45 [facility] PCO2, Arterial 47(H) 35 - 45 mmHg [facility] PO2, Arterial 28(Critica l) 85 - 104 mmHg [facility] Comment:Noted by keyboard instrument repairer. Bicarbonate, Arterial 24.7 20.0 - 26.0 mmol/L [facility] Base Excess, Arterial -1.1 -3.0 - 3.0 mmol/L [facility] Hgb Blood Gas 15.6(H) 11.7 - 15.5 g/dL [facility] Oxyhemoglobin, Arterial 53.1(L) 94.0 - 97.0 % [facility] Carboxyhemoglob in, Arterial 0.9 % [facility] Comment: Nonsmokers: 0.5-1.5% COHB Smokers: Variable, but usually less than 10% Toxic: 20-30% COHB Lethal: Greater than 60% COHB Methemoglobin, Arterial 0.3 <=1.5 % [facility] Na Whole Blood 142 135 - 145 mmol/L [facility] K Whole Blood 4.2 3.5 - 5.0 mmol/L [facility] Comment: Please note: Patients with WBC >100,000 may have falsely elevated Potassium levels. Contact the Clinical Chemistry Laboratory if there are any questions. ICa Whole Blood 1.23 1.15 - 1.33 mmol/L [facility] Comment: Note: ??Total bilirubin higher than 20 mg/dL may lead to falsely low ionized calcium. CL Whole Blood 105 98 - 107 mmol/L [facility] Gluc Whole Bld 61(L) 65 - 199 mg/dL [facility] Comment:Diabetes: >=200 mg/d L plus symptoms. Lactate WB 1.4 0.5 - 2.2 mmol/L [facility] Blood 06/03/2023 2:10 PM EST 06/03/2023 2:10 PM EST Gee Decker MD POINT OF CARE TEST O RDERABLES [facility] [place] [place] [address] * (ABNORMAL) POCT Glucose (06/03/2023 2:05 PM EST) Glucose, POC 60(L) 65 - 199 mg/dL [facility] Comment: Supplemental ranges: <140 mg/dL before meals <180 mg/dL all other times of the day Blood 06/03/2023 2:05 PM EST 06/03/2023 2:05 PM EST Gee Decker MD POINT OF CARE TEST O RDERABLES Performing Organization Address [facility] Co de Phone Number [facility] [place] [place] [address] * Beta Hydroxybutyrate (06/03/2023 2:00 PM EST) Beta-hydroxybuturat e 0.11 0.00 - 0.30 mmol/L [facility] Comment: This test has not been cleared by the [place] FDA. Performance characteristics of this test were determined by [facility] in accordance with CLIA requirements. This laboratory is qualified under CLIA to perform high-complexity testing. Blood 06/03/2023 2:00 PM EST 06/03/2023 2:28 PM EST Narrative Resulting Agency Comment Spec In Lab Renaldo Ramirez MD CHEMISTRY ORDERABLE S Performing Organization Address [facility] de Phone Number [facility] [place] [place] [address] * (ABNORMAL) Basic Metabolic Panel (non-fasting) (06/03/2023 2:00 PM EST) Glucose 59(L) 65 - 199 mg/dL [facility] Comment:Diabetes: >=200 mg/d L plus symptoms Blood Urea Nitrogen 12 8 - 18 mg/dL [facility] Creatinine 0.86 0.70 - 1.20 mg/dL [facility] Sodium 140 135 - 145 mmol/L [facility] Potassium 4.3 3.5 - 5.0 mmol/L [facility] Comment: Please note: ??Patients with WBC >100,000 may have falsely elevated Potassium levels. ??For accurate Potassium quantification in these patients send serum separator tube (gold top) for subsequent determinations. ??Contact the Clinical Chemistry Laboratory if there are any questions. Chloride 105 98 - 107 mmol/L [facility] Carbon Dioxide 24 22 - 31 mmol/L [facility] Anion Gap 11 5 - 15 mmol/L [facility] Calcium 9.6 8.5 - 10.5 mg/dL [facility] Est Glomerular Filtration Rate 93 >=60 mL/min/1. 73 m?? [facility] Comment: This patient's estimated GFR was [...] MD CHEMISTRY ORDERABLE S Performing Organization Address City/[facility]/ZIP Co de Phone Number [facility] [place] [place] [address] * (ABNORMAL) POCT Glucose (06/03/2023 1:42 PM EST) Glucose, POC 53(Critica l) 65 - 199 mg/dL [facility] Comment: Supplemental ranges: <140 mg/dL before meals <180 mg/dL all other times of the day Blood 06/03/2023 1:42 PM EST 06/03/2023 1:42 PM EST Gee Decker MD POINT OF CARE TEST O RDERABLES [facility] [place] [place] [address] * (ABNORMAL) POCT Glucose (06/03/2023 1:14 PM EST) Glucose, POC 60(L) 65 - 199 mg/dL [facility] Comment: Supplemental ranges: <140 mg/dL before meals <180 mg/dL all other times of the day Blood 06/03/2023 1:14 PM EST 06/03/2023 1:14 PM EST Gee Decker MD POINT OF CARE TEST O R[facility]AEDWARD [facility] [place] [address] documented in this encounter Visit Diagnoses Not [...] EVERY 6 HOURS SCHEDULED, First dose on 1/19/24 at 0000, Until Discontinued, Administer starting post-op [...] Discontinued, Routine 2010 (Given - Provider: Eri Claros RN) dextrose 10% infusion (COMPLETED) 100 mL, Intravenous, ONCE, 1 dose, On Christa 06/03/23 at 1515, Day of Surgery (Day of Procedure) 1415 (New Bag - Provider: Jeromy aSmson RN) doxepin (Silenor) Tablet 6 mg 6 mg, Oral, NIGHTLY, First dose on Christa 06/03/23 at 2200, Until Discontinued 2200 (Not Given - Provider: Paddy Arthur RN - Reason: Medication not available) 2100 (Not Given - Provider: Eri Claros, TOM - Reason: Medication not available) enoxaparin (Lovenox) [...] Gogo Riley RN)2009 (Given - Provider: Eri Claros, TOM) 0900 (Given - Provider: Gustabo Russ, TOM) gabapentin (Neurontin) capsule 300 mg 300 mg, Oral, DAILY, First dose on Wed06/04/23 at 0900, Until Discontinued, Open capsule, Routine 0837 (Given - Provider: Gogo Riley RN) 09 (Given - Provider: Gustabo Russ, TOM) gabapentin (Neurontin) capsule 600 mg 600 mg, Oral, NIGHTLY, First dose on Wed06/03/23 at 2200, Until Discontinued, Open capsule, Routine 2330 (Given - Provider: Paddy Arthur, TOM) 2010 (Given - Provider: Eri Claros, TOM) [...] hours., Routine 0730 (Given - Provider: Paddy F Arthur, RN) insulin lispro (HumaLOG;Admelog) (100 unit/mL) subcutaneous [...] Arthur RN) 0400 (Given - Provider: Paddy Arthur, TOM)1028 (Given - Provider: Lorena Mesa, TOM) lactated Ringers 1,000 mL IV bolus (COMPLETED) [...] Claros, TOM) 09 (Given - Provider: Gustabo Russ, TOM) [...] Claros, TOM)1100 (Not Given - Provider: Gustabo Russ, TOM - Reason: Loss of access) pantoprazole (Protonix) injection 40 mg 40 mg, Intravenous, DAILY, First dose on 1/19/24 at 0900, Until Discontinued, Reconstitute with 10 mL of normal saline to a concentration of 4 mg/mL and inject slowly over 2 minutes. Reconstitute with 10 mL of normal saline to a concentration of 4 mg/mL and inject slowly over 2 minutes., Routine 0836 (Given - Provider: Gogo Riley RN) 0907 (Given - Provider: Gustabo Russ, TOM) prazosin [...] Gogo Riley RN)2012 (Given - Provider: Eri Claros, TOM) 0907 [...] Riley RN)2042 (New Bag - Provider: Lidya Mahajan, TOM) [...] Paddy Arthur RN)2058 (Given - Provider: Paddy Arthur RN)2121 (Given - Provider: Paddy Arthur RN)2199 (Given - Provider: Paddy Arthur, RN) [...] PACU Recovery 1999 (Given - Provider: Paddy F Arthur, RN) oxyCODONE (Roxicodone) (1 mg/mL) oral liquid 5 mg 5 mg, Oral, EVERY 6 HOURS PRN, Starting on Christa 06/03/23 at 2144, Until 06/05/23 at 1350, Pain, Moderate-Severe pain 4-10, Routine 0834 (Given - Provider: Gogo Riley RN) 0727 (Given - Provider: Gustabo Russ, RN) prochlorperazine (Compazine) (5 mg/mL) injection 10 mg 10 mg, Intravenous, EVERY 6 HOURS PRN, Starting on Christa 06/03/23 at 2144, Until 06/05/23 at 1350, Nausea, Vomiting, For nausea please use ondansetron as the first choice; prochlorperazine as a second choice. Call provider if not effective., Routine 2335 (Given - Provider: Paddy Arthur RN) 0737 (Given - Provider: Gustabo Russ, TOM) sodium [...] at 2032, Until Wed06/04/23 at 138, Pain, Mild to moderate pain (1-5 out [...] Intravenous, EVERY 5 MIN PRN, Starting on Wed06/03/23 at 2032, Until Wed06/04/23 at 138, Pain, Moderate to severe pain (6-10 out [...] Christa 06/03/23 at 2032, Until Wed06/04/23 at 0139, Pain, For Moderate to Severe Pain (6-10 [...] Routine documented in this encounter Care Teams Dot Compliance Manager Relationship Specialty Start Date End Date Lia Pearson APRN [address] [facility] [place] [address] PCP - General Geriatric Medicine 02/09/22 documented as of this encounter
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
--- OUTSIDE RECORDS SUMMARY | 2024-02-13 18:02 | XMS_ITS | Encounter Summary ---
[place] [address] Care Team Providers Care Instrument Operator Name Role Phone Lia Pearson APRN Primary Care Provider [phone] Encounter Details Date Type Department Care Team [...] Note: Practice STOP and Urge Surfing. Health Baling Machine Tender will send hand-outs. Movement Lifestyle On track( 023 1:14 PM EDT) Riddhi Buchanan RD Note: Continue to walk stairs and walks when can. Will continue using stairs as it's colder. Look into finding weights free online or at [employer] stores. Could use water-filled milk jugs as weights-a full gallon jug would be 8 lbs. Will look into nearby rec center 04/16/22 NATHALIA documented as of this encounter Visit Diagnoses Not on filedocumented in this encounter Care Teams Instrument Operator Relationship Specialty Start Date End Date Lia Pearson APRN [address] [place] [address] PCP - General Geriatric Medicine 02/09/22 documented as of this encounter
--- OUTSIDE RECORDS SUMMARY | 2024-02-13 18:02 | XMS_ITS | Encounter Summary ---
Author Organization [facility] [place] [address] Care Team Providers Care Insurance Auditor Name Role Phone Lia Pearson APRN Primary Care Provider [phone] Encounter Details Date Type Department Care Team (Late st Contact Info) Description 02/11/2023 3:45 PM EDT TH Visit (TeleHealth) [place]ventional [place] [address] Michael Morgan, [facility] [address] Vaginal bleeding Social History Tobacco Use Types [...] level. Current degree of vaginal bleeding is xnw-rugehpzor-xajahqca. She denies any new symptoms. No need [...] MPH Staff Physician - Interventional Radiology Pager [phone] documented in this encounter Plan of Treatment [...] can, buy fresh vegetables and fruit from [employer] market-sent message with resources -Choose whole grain [...] Note: Practice STOP and Urge Surfing. Health Dough Scaler And Mixer will send hand-outs. Movement Lifestyle On track( 023 1:14 PM EDT) Riddhi Buchanan RD Note: Continue to walk stairs and walks when can. Will continue using stairs as it's colder. Look into finding weights free online or at [employer] stores. Could use water-filled milk jugs as weights-a full gallon jug would be 8 lbs. Will look into nearby rec center 04/16/22 NATHALIA documented as of this encounter Visit Diagnoses Diagnosis Vaginal bleeding Other specified noninflammatory disorder of vagina documented in this encounter Care Teams Insurance Auditor Relationship Specialty Start Date End Date Lia Pearson APRN [address] [place] [address] PCP - General Geriatric Medicine 02/09/22 documented as of this encounter
--- OUTSIDE RECORDS SUMMARY | 2024-02-13 18:02 | XMS_ITS | Encounter Summary ---
[place] [address] Care Team Providers Care Transportation Engineering Technician Name Role Phone Lia Pearson APRN Primary Care Provider [phone] Encounter Details Date Type Department Care Team [...] Note: Practice STOP and Urge Surfing. Health Pharmaceutical Officer will send hand-outs. Movement Lifestyle On track( 023 1:14 PM EDT) Riddhi Buchanan RD Note: Continue to walk stairs and walks when can. Will continue using stairs as it's colder. Look into finding weights free online or at [employer] stores. Could use water-filled milk jugs as weights-a full gallon jug would be 8 lbs. Will look into nearby rec center 04/16/22 NATHALIA documented as of this encounter Visit Diagnoses Not on filedocumented in this encounter Care Teams Transportation Engineering Technician Relationship Specialty Start Date End Date Lia Pearson APRN [address] [place] [address] PCP - General Geriatric Medicine 02/09/22 documented as of this encounter
--- OUTSIDE RECORDS SUMMARY | 2024-02-13 18:02 | XMS_ITS | Encounter Summary ---
Author Organization [facility] [place] [address] Care Team Providers Care Supervising Film Or Videotape Editor Name Role Phone Lia Pearson JULIO C Primary Care Provider [phone] Encounter Details Date Type Department Care Team (Late st Contact Info) Description 03/24/2023 1:00 PM EST Office [place] [address] Asiya Giraldo APRN [facility] [place] [address] Deneen Nicholas, RD [facility] [place] [address] Class 3 severe obesity with serious comorbidity [...] Giraldo APRN - 03/24/2023 1:00 PM EST [facility] BARIATRIC SUPPORT TEAM CONTACT NUMBERS (Mon-Fri 8am - 5pm): General Surgery and Bariatric Surgery [phone] Bariatric Surgeons: Doctors. Godinez [phone] Assembly Member: [phone] Dietitians: [phone] Outside of regular business hours, including weekends and holidays: Ask for General Surgery resident air conditioning coil assembler [phone] BEFORE YOUR SURGERY: Questions for your doctor, specialist or pharmacist: Ask your doctor about medication suggestions if you currently take medications that are larger than the size of a tylenol or calcium pill. Large pills need to be crushed (if permitted by the drug wharfmaster), taken in smaller size pills, or taken [...] weeks at the General Surgery Outpatient [facility] ([facility], [facility] 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 (Space 2 hours apart from Calcium.) Take bariatric supplements as directed on the label PROTEIN SUPPLEMENTS At least 20 g protein per serving (1 scoop or ???ogyzv-le-wxhai?? ) Under 200 calories for ???jydyr-pw-hckwu?? Under 100 calories per scoop for powder [...] The prescription is typically sent to the [facility] at discharge. Take the medication to [...] in a recliner more comfortable early post-surgery. [facility] Post-Bariatric Surgery Events Calendar Date Time period [...] for 10 days to prevent blood clots. volunteer services supervisor prescription at [facility] 2 weeks post surgery If you [...] post-op 3 weeks: visits with surgeon or DIGITAL ASSOCIATE MEDIA DIRECTOR and dietitian Bring diet logs and complete [...] Medrano's esophagus 4 months: Visits with RD /DIGITAL ASSOCIATE MEDIA DIRECTOR Bring complete list of medications and supplements including dose and type (or take photos) Have lab work done before your appointment. Bring copies of any labwork that may have been done by your PCP 6.5 months Stop Ursodiol. No refills are needed. 12 month visits with RD/DIGITAL ASSOCIATE MEDIA DIRECTOR Bring complete list of medications and supplements including dose and type (or take photos) Have lab work done before your appointment. Bring copies of any labwork that may have been done by your PCP* 2 years and yearly for life visits with RD/DIGITAL ASSOCIATE MEDIA DIRECTOR Bring complete list of medications and supplements including dose and type (or take photos) Have lab work done before your appointment. Bring copies of any labwork that may have been done by your PCP Abbreviations: RD: registered dietitian. DIGITAL ASSOCIATE MEDIA DIRECTOR: nurse practitioner documented in this encounter Progress Notes * Asiya Giraldo APRN - 03/24/2023 1:00 PM EST BARIATRIC SURGERY PROGRAM [place], [place] [address] Reason for visit: [facility] for up coming bariatric surgery Zenia attended a comprehensive group pre-operative class today, which included discussion of pre and post operative instructions included in the [facility] Bariatric Surgery Program Education Handbook. The nutrition component of the class was taught by the BSP RD. Patient completed health update form. Pt reminded to stop Mounjaro, Jardiance and Ozempic 1 week before surgery. OK to continue with norethindrone per Dr. oCntreras No new medical issues/ED visit. Medications/allergies are [...] prophylaxis per standard protocol following bariatric surgery INSIDE SALES ADVERTISING EXECUTIVE follow up (02/11/23).- plan for IUD placement [...] Pt previously attended a Introduction to the [facility] Bariatric Surgery Program seminar,a two hour meeting that provides a program overview as well as expectations. The [facility] Bariatric Surgery Program Educational seminar requirement has [...] through dieting have been unsuccessful over the fci. Advised patient that bariatric surgery is a [...] can, buy fresh vegetables and fruit from [employer] market-sent message with resources -Choose whole grain [...] Note: Practice STOP and Urge Surfing. Health Volunteer Services Supervisor will send hand-outs. Movement Lifestyle On track( 023 1:14 PM EDT) Riddhi Buchanan RD Note: Continue to walk stairs and walks when can. Will continue using stairs as it's colder. Look into finding weights free online or at [employer] stores. Could use water-filled milk jugs as [...] education documented in this encounter Care Teams Supervising Film Or Videotape Editor Relationship Specialty Start Date End Date Lia Pearson APRN [address] [place] [address] PCP - General Geriatric Medicine 02/09/22 documented as of this encounter
--- OUTSIDE RECORDS SUMMARY | 2024-02-13 18:02 | XMS_ITS | Encounter Summary ---
[place] [address] Care Team Providers Care Residential Sales Associate Name Role Phone Lia Pearson APRN Primary Care Provider [phone] Encounter Details Date Type Department Care Team (Late st Contact Info) Description 05/25/2023 Telephone General [place] [phone] Lidya Elise RN Social History Tobacco Use [...] can, buy fresh vegetables and fruit from [employer] market-sent message with resources -Choose whole grain [...] Note: Practice STOP and Urge Surfing. Health Dining Room Host will send hand-outs. Movement Lifestyle On track( 1:14 PM EDT) Riddhi Buchanan RD Note: Continue to walk stairs and walks when can. Will continue using stairs as it's colder. Look into finding weights free online or at thrift stores. Could use water-filled milk jugs as weights-a full gallon jug would be 8 lbs. Will look into nearby [facility] center 04/16/22 NATHALIA documented as of this encounter Visit Diagnoses Not on filedocumented in this encounter Care Teams Residential Sales Associate Relationship Specialty Start Date End Date Lia Pearson APRN [address] [place] [address] PCP - General Geriatric Medicine 02/09/22 documented as of this encounter
--- OUTSIDE RECORDS SUMMARY | 2024-02-13 18:02 | XMS_ITS | Encounter Summary ---
[place] [address] Care Team Providers Care Ballistics Tester Name Role Phone Lia Pearson APRN Primary Care Provider [phone] Encounter Details Date Type Department Care Team [...] Note: Practice STOP and Urge Surfing. Health Machinery Repair Maintenance Supervisor will send hand-outs. Movement Lifestyle On track( 023 1:14 PM EDT) Riddhi Buchanan RD Note: Continue to walk stairs and walks when can. Will continue using stairs as it's colder. Look into finding weights free online or at [employer] stores. Could use water-filled milk jugs as weights-a full gallon jug would be 8 lbs. Will look into nearby rec center 04/16/22 NATHALIA documented as of this encounter Visit Diagnoses Not on filedocumented in this encounter Care Teams Ballistics Tester Relationship Specialty Start Date End Date Lia Pearson APRN [address] [place] [address] PCP - General Geriatric Medicine 02/09/22 documented as of this encounter
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
--- OUTSIDE RECORDS SUMMARY | 2024-02-13 18:02 | XMS_ITS | Encounter Summary ---
Author Organization [facility] Address [facility] [place] [address] Care Team Providers Care Orthopedic Cast Specialist Name Role Phone Lia Pearson APRN Primary Care Provider [phone] Reason for Visit * Reason Comments Follow-up Encounter Details Date Type Department Care Team (Late st Contact Info) Description 03/18/2023 10:40 AM EDT Office Visit Obstetric[place] [address] Berenice Ahumada MD [facility] DR OBSTETRICS [place] [address] Abnormal uterine bleeding (AUB) (Primary Dx); Class [...] through Care Everywhere. * IUD: General Info (Norwegian) documented in this encounter Progress Notes * Berenice Ahumada MD - 03/18/2023 10:40 AM EDT BUILDING OFFICIAL Follow-up Visit Reason for Visit: Zenia is [...] with them in April. 02/11/2023 10:51 AM Ribbon Weaver Screener Little interest or pleasure Not at [...] hypertension, benign 09/26/2021 Long-term insulin use 09/26/2021 half-way 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 09/26/2021 [...] ANESTHESIA performed by Sabrina Swain MD at [facility] MAIN OR IR ARTERIAL INTERVENTION 10/13/2022 IR Arterial Intervention 10/13/2022 Pradip Avila MD [facility] INTERVENTIONL RAD PRG ECHOGRAPHY TRANSVAGINAL NON-OB Midline 03/03/2022 ULTRASOUND, TRANSVAGINAL (WRVU 0.69) performed by Sabrina Swain MD at [facility] MAIN OR PRO HYSTEROSCOPY, W/ENDO BX N/A 03/03/2022 HYSTEROSCOPY, SURG W/ENDOMETRIAL SAMPLING, POLYPECTOMY (WRVU 4.74) performed by Sabrina Swain MD [facility] MAIN OR PRO INSERT INTRAUTERINE DEVICE N/A 03/03/2022 INSERTION OF IUD, VAGINAL APPROACH (WRVU 1.01) performed by Sabrina Swain MD at [facility] MAIN OR PRO PELVIC EXAMINATION W ANESTH N/A 03/03/2022 PELVIC EXAM UNDER ANESTHESIA (WRVU 1.75) performed by Sabrina Swain MD at [facility] MAIN OR Family History Problem Relation Age [...] it is possible that the night-time on-call EGG PROCESSOR may not be able to placeit. She [...] can, buy fresh vegetables and fruit from [employer] market-sent message with resources -Choose whole grain [...] Note: Practice STOP and Urge Surfing. Health Sound Designer will send hand-outs. Movement Lifestyle On track( 1:14 PM EDT) Riddhi Buchanan RD Note: Continue to walk stairs and walks when can. Will continue using stairs as it's colder. Look into finding weights free online or at [employer] stores. Could use water-filled milk jugs as [...] adult documented in this encounter Care Teams Orthopedic Cast Specialist Relationship Specialty Start Date End Date Lia Pearson APRN [address] [place] [address] PCP - General Geriatric Medicine 02/09/22 documented as of this encounter
--- OUTSIDE RECORDS SUMMARY | 2024-02-13 18:02 | XMS_ITS | Encounter Summary ---
Author Organization [facility] Address [facility] [address] Care Team Providers Care Bridge/Structure Inspection Team Leader Name Role Phone Lia Pearson APPLICATION HELPER Primary Care Provider [phone] Encounter Details Date Type Department Care Team (Late st Contact Info) Description 03/29/2023 Telephone [place] [address] Estella Salomon, RD [facility] [place] [place] [address] Social History Tobacco Use Types Packs/Day Years [...] morning. Pt is tracking her intake in [employer] rebecca, reports her intake for the last 3 days was: Wednesday: 1829 calories, 102g carbs, 84g protein Wednesday: 1429 calories, 111g carbs, 89g protein Wednesday: 1186 calories, 119g carbs, 94g protein Pt states she purchased glucose tablets today to help treat low BG going forward. Reviewed rule with pt. Advised pt to discussed low BG and insulin use with her strap maker. Advised pt thatwe would not delay surgery [...] can, buy fresh vegetables and fruit from [employer] market-sent message with resources -Choose whole grain [...] Note: Practice STOP and Urge Surfing. Health Microelectronics Technician will send hand-outs. Movement Lifestyle On track( 023 1:14 PM EDT) Riddhi Buchanan RD Note: Continue to walk stairs and walks when can. Will continue using stairs as it's colder. Look into finding weights free online or at [employer] stores. Could use water-filled milk jugs as weights-a full gallon jug would be 8 lbs. Will look into nearby rec center 04/16/22 NATHALIA documented as of this encounter Visit Diagnoses Not on filedocumented in this encounter Care Teams Bridge/Structure Inspection Team Leader Relationship Specialty Start Date End Date Lia Pearson APRN [address] [place] [address] PCP - General Geriatric Medicine 02/09/22 documented as of this encounter
--- OUTSIDE RECORDS SUMMARY | 2024-02-13 18:02 | XMS_ITS | Encounter Summary ---
[place] [address] Care Team Providers Care Packing Machine Tender Name Role Phone Lia Perason APRN Primary Care Provider [phone] Encounter Details Date Type Department Care Team (Latest Contact Info) Description 02/11/2023 9:05 AM EDT Laboratory Appointment Lab [address] [place] [phone] Excessive bleeding in premenopausal period Social History [...] Note: Practice STOP and Urge Surfing. Health Jewel Waxer will send hand-outs. Movement Lifestyle On track( 023 1:14 PM EDT) Riddhi Buchanan RD Note: Continue to walk stairs and walks when can. Will continue using stairs as it's colder. Look into finding weights free online or at [employer] stores. Could use water-filled milk jugs as [...] bleeding in premenopausal period PLATELET FUNCTION TEST ([facility]) Routine 02/11/2023 9:35 AM EDT Excessive bleeding in premenopausal period FIBRINOGEN Routine 02/11/2023 9:35 AM EDT Excessive bleeding in premenopausal period FACTOR 8 ASSAY Routine 02/11/2023 9:35 AM EDT Excessive bleeding in premenopausal period BLEEDING SCREEN INTERPRETATION Routine 02/11/2023 9:03 AM EDT documented in this encounter Results * Differential, Automated (02/11/2023 9:35 AM EDT) Neutrophil % 58.4 % [facility] Neutrophil Absolute 3.94 1.70 - 6.10 x10(3)/[facility] LABORATORY Lymph % 29.7 % [facility] Lymphocytes Abs 2.0 0.9 - 3.2 x10(3)/[facility] LABORATORY Monocyte % 7.9 % [facility] Monocyte Abs 0.5 0.3 - 0.9 x10(3)/[facility] LABORATORY Eos % 2.8 % [facility] Eosinophils Abs 0.2 0.0 - 0.4 x10(3)/[facility] LABORATORY Basophil % 0.6 % [facility] Baso Absolute 0.0 0.0 - 0.1 x10(3)/[facility] LABORATORY Immature Gran % 0.60 % [facility] Comment: Immature granulocytes(IG's)percentage and absolute count will include metamyelocytes, myelocytes, and promyelocytes. Blood smears from CBCs yielding IG's will be scanned manually for concordance. If this scan disagrees with the automated IG or if promyelocytes are noted, a manual differential will be performed. Immature Gran Absolute 0.04 0.00 - 0.04 x10(3)/mcL [facility] Blood 02/11/2023 9:35 AM EDT 02/11/2023 9:43 AM EDT Narrative Resulting Agency Comment Spec In Lab Claudine Yang MD HEMATOLOGY ORDERABLE S [facility] [place] [address] * (ABNORMAL) Hemogram (02/11/2023 9:35 AM EDT) White Blood Cell 6.7 4.0 - 9.5 x10(3)/mc L [facility] Red Blood Cell 5.30(H) 4.00 - 5.21 x10(6)/mc L [facility] Hemoglobin 14.0 11.7 - 15.5 g/dL [facility] Hematocrit 42.9 35.7 - 45.8 % [facility] Mean Cell Volume 80.9(L) 82.6 - 94.4 fL [facility] Mean Cell Hemoglobin 26.4(L) 27.1 - 32.0 pg [facility] Mean Cell Hemoglobin Concentration 32.6 31.7 - 35.0 g/dL [facility] Platelet 349 145 - 357 x10(3)/mc L [facility] RDW Standard Deviation 49.1(H) 37.0 - 46.0 fL [facility] RDW coefficient of variation 16.7(H) 11.5 - 14.1 % [facility] Mean Platelet Volume 11.5 7.6 - 12.9 fL [facility] NRBC% auto 0.0 % [facility] NRBC Absolute 0.000 0.000 - 0.000 x10(3)/mc L [facility] Blood 02/11/2023 9:35 AM EDT 02/11/2023 9:43 AM EDT Narrative Resulting Agency Comment Spec In Lab Claudine Yang MD HEMATOLOGY ORDERABLE S Performing Organization Address City/[facility]/ZIP Co de Phone Number [facility] [place] [address] * (ABNORMAL) Platelet function analysis ([facility]) (02/11/2023 9:35 AM EDT) Col/Epi 178(H) <=160 sec [facility] Comment: The PFA-100 test result [...] hereditary or acquired qualitative platelet disorder, though oysterman aspirin treatment may sometimes cause a modestly [...] should be considered. Col/ADP 82 <=120 sec [facility] Blood 02/11/2023 9:35 AM EDT 02/11/2023 9:58 AM EDT Narrative Resulting Agency Comment Spec In Lab Claudine Yang MD HEMATOLOGY ORDERABLE S Performing Organization Address City/[facility]/ZIP Co de Phone Number [facility] [place] [address] * Von Willebrand Factor Antigen (02/11/2023 9:35 AM EDT) von Willebrand Factor Antigen 115 % [facility] Comment: ABO blood group has [...] MD HEMATOLOGY ORDERABLE S Performing Organization Address City/[facility]/ZIP Co de Phone Number [facility] [place] [address] * Von Willebrand Factor Activity (02/11/2023 9:35 AM EDT) Von Willebrand Factor Assay 84 % activity [facility] Comment: ABO blood group has a significant influence on vWF activity levels in normal individuals. Type O has a range of 40 ? 126%. Type A, B, and AB have a range of 49 - 163%. Blood 02/11/2023 9:35 AM EDT 02/11/2023 9:43 AM EDT Narrative Resulting Agency Comment Spec In Lab Claudine Yang MD HEMATOLOGY ORDERABLE S [facility] [place] [address] * Factor 8 assay (02/11/2023 9:35 AM EDT) Factor VIII Assay 223 >=50 % [facility] Blood 02/11/2023 9:35 AM EDT 02/11/2023 9:43 AM EDT Narrative Resulting Agency Comment Spec In Lab Claudine Yang MD HEMATOLOGY ORDERABLE S [facility] [place] [address] * Fibrinogen (02/11/2023 9:35 AM EDT) Fibrinogen 365 200 - 393 mg/dL [facility] Comment: A fibrinogen level >100 mg/dL is adequate for hemostasis in most patients without underlying bleeding disorders. Blood 02/11/2023 9:35 AM EDT 02/11/2023 9:43 AM EDT Narrative Resulting Agency Comment Spec In Lab Claudine Yang MD HEMATOLOGY ORDERABLE S Performing Organization Address [facility] Co de Phone Number [facility] [place] [address] * Thrombin time (02/11/2023 9:35 AM EDT) Thrombin Time 16 10 - 17 sec [facility] Comment: A prolongation in the [...] MD HEMATOLOGY ORDERABLE S Performing Organization Address [facility] de Phone Number [facility] [place] [address] * APTT (02/11/2023 9:35 AM EDT) Partial Thromboplastin Time 28 25 - 37 sec [facility] Comment: The PTT is NOT appropriate for heparin monitoring. Use the Anti-Xa level for heparin monitoring (HEP UFH) or LMWH monitoring (HEP LMW). A PTT less than 37 seconds generally indicates adequate hemostasis. Blood 02/11/2023 9:35 AM EDT 02/11/2023 9:43 AM EDT Narrative Resulting Agency Comment Spec In Lab Claudine Yang MD HEMATOLOGY ORDERABLE S Performing Organization Address [facility]/ZIP Co de Phone Number [facility] [place] [address] * Prothrombin Time (02/11/2023 9:35 AM EDT) Prothrombin Time 10.1 9.4 - 12.5 sec [facility] International Normalization Ratio 0.9 [facility] Comment: An INR <2.0 indicates [...] MD HEMATOLOGY ORDERABLE S Performing Organization Address City/State/[facility] Co de Phone Number [facility] [place] [address] * Bleeding Screen Report (02/11/2023 9:03 AM EDT) Bleeding Screen Report [id number] ? Location: 3L The signing pathologist has [...] Perez Verified: ??02/17/2023 15:51 ??Pathologist Performed at: ??-[facility] Dept. of Pathology, [place] [address] Instrumentation Tech: Katherine Webb MD, FCAP, ??CLIA Certificate: [id number] ADDITIONAL STUDIES See [facility] for laboratory values. Platelet morphology: Unremarkable. Emotional [...] on aspirin, NSAIDS, antiplatelet drugs, or anticoagulants. [facility] 02/11/2023 9:03 AM EDT Claudine Yang MD HEMATOLOGY ORDERABLE S [facility] [place] [address] documented in this encounter Visit Diagnoses Diagnosis Excessive bleeding in premenopausal period Premenopausal menorrhagia documented in this encounter Care Teams Packing Machine Tender Relationship Specialty Start Date End Date Lia Pearson APRN [address] [place] [address] PCP - General Geriatric Medicine 02/09/22 documented as of this encounter
--- OUTSIDE RECORDS SUMMARY | 2024-02-13 18:02 | XMS_ITS | Encounter Summary ---
Author Organization [facility] [place] [address] Care Team Providers Care Propagator Laborer Name Role Phone NasraLia chávez JULIO C Primary Care Provider [phone] Reason for Visit * Auth/Cert (Routine) Specialty Diagnoses / Procedures Referred By Della kern Referred To Contact Diagnoses Morbid Obesity Procedures PRO GASTRIC BYPASS, OBESE<150CM VERNELL-EN-Y PRO LAP GASTRIC BYPASS/VERNELL-EN-Y @LAPAROSCOPIC GASTROPLASTY W/ VERNELL-EN-Y CONSTRUCTION (WRVU 29.4) Gee Contreras MD [facility] [place] [address] [facility] Referral ID Status Reason Start Date Expiration Date Visits Re quested Visits Authorized [id number] 1 1 Encounter Details Date Type Department Care Team (Late st Contact Info) Description 06/03/2023 4:06 PM EST Anesthesia Event [place] [address] López Orellana MD [facility] ANESTHESIOLOGY [place] [address] Paddy Wallace MD [facility] ANESTHESIOLOGY [place] [address] Anesthesia Record Procedure Summary Procedure Name Responsible Anesthesiologist Anesthesia Start Time Anesthesia Stop Time @LAPAROSCOPIC GASTROPLASTY W/ VERNELL-EN-Y CONSTRUCTION (WRVU 29.4) (Abdomen) López Orellana MD 06/03/23 1606 06/03/232036 Events Date [...] Date: 06/03/23; Removal Time: 201606/03/23 1659 by 06/03/232016 by Bronson Long, ACCOUNT FINANCIAL MANAGER Incision 03/03/22; 0833; midl ine; vagina; other [...] by Prabha Fish RN PIV 06/03/23; 1410; dvbr-ddn-rhbykd catheter system; 18 gauge; cephalic vein (lateral side of arm), right; Anatomical Landmarks; Anesthesia; distraction, intradermal injection, tolerated well; 06/05/23; 1002 06/03/23 1410 by Jeromy Samson RN 06/05/23 1002 by Gustabo Russ RN ETT Mask Ventilation: Ad junct (2); ETT Type: Cuffed; ETT Size: 7.5 mm; Exchange: FOB, [place]; Indirect: Video; Notes: Asleep, Pre-O2, Stylette, Troop [...] Procedure Summary Date: 06/03/23 Room / Location: [address] MAIN OR Anesthesia Start: 1605 Anesthesia Stop: 2036 Procedure: @LAPAROSCOPIC GASTROPLASTY W/ VERNELL-EN-Y CONSTRUCTION (WRVU 29.4) (Abdomen) Diagnosis: (Morbid Obesity) Surgeons: Gee Contreras MD Responsible Provider: López Orellana MD Anesthesia Type: general ASA Status: 3 All Anesthesia Providers: Anesthesiologist: López Orellana MD; Lisa Cooper MD ACCOUNT FINANCIAL MANAGER: Bronson Long CRNA Floor Runner: Yonatan Bey MD Vitals Value Taken Time [...] hypertension, benign 09/26/2021 Long-term insulin use 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 09/26/2021 [...] (WRVU 4.74) performed by Sabrina Swain MD [facility] MAIN OR PRO INSERT INTRAUTERINE DEVICE N/A 03/03/2022 INSERTION OF IUD, VAGINAL APPROACH (WRVU 1.01) performed by Sabrina Swain MD at [facility] MAIN OR PRO PELVIC EXAMINATION W ANESTH N/A 03/03/2022 PELVIC EXAM UNDER ANESTHESIA (WRVU 1.75) performed by Sabrina Swain MD at [facility] MAIN OR Social History Tobacco [...] ASA monitoring -PIV access Yonatan Bey MD Floor Runner, PGY2/CA1 Pager # [phone] Attending addendum: Pt personally seen/examined, hx reviewed. [...] adverse drug reactions, awareness, euglycemic DKA, stroke, PR, , among others. All questions answered to [...] can, buy fresh vegetables and fruit from [employer]-sent message with resources -Choose whole grain options [...] Note: Practice STOP and Urge Surfing. Health Jack Spooler Tender will send hand-outs. Movement Lifestyle On track(08/03/2 023 1:14 PM EDT) Riddhi Buchanan RD Note: Continue to walk stairs and walks when can. Will continue using stairs as it's colder. Look into finding weights free online or at [employer] stores. Could use water-filled milk jugs as weights-a full gallon jug would be 8 lbs. Will look into nearby [facility] 04/16/22 NATHALIA documented as of [...] Starting on Christa 06/03/23 at 1824, Until Christa 06/03/23 at 2130, Anesthesia Intra-op, [...] Intravenous, PRN, Starting on Christa 06/03/23 at 1603, Until Christa 06/03/23 at 2130, Anesthesia Intra-op, Routine Given 06/03/2023 4:03 PM EST 2 mg ondansetron (pf) (Zofran) (2 mg/mL) injection Intravenous, PRN, Starting on Christa 06/03/23 at 2004, Until Christa 06/03/23 at 2130, Anesthesia Intra-op, Routine Given 06/03/2023 8:04 PM EST 8 mg PHENYLephrine (Geovanni-Synephrine) (80 mcg/mL) in sodium chloride 0.9% 250 mL infusion Intravenous, CONTINUOUS PRN, Starting on Christa 06/03/23 at 1754, Until Christa 06/03/23 at 2130, [...] mg documented in this encounter Care Teams Propagator Laborer Relationship Specialty Start Date End Date Lia Pearson APRN [address] [place] [address] PCP - General Geriatric Medicine 02/09/22 documented as of this encounter
--- OUTSIDE RECORDS SUMMARY | 2024-02-13 18:02 | XMS_ITS | Encounter Summary ---
Author Organization [facility] [place] [address] Care Team Providers Care Sales Data Analyst Name Role Phone LiliLia JULIO C Primary Care Provider [phone] Reason for Visit * Consultation (Routine) - Closed Specialty Diagnoses / Procedures Referred By Della kern Referred To Contact Pre-Admission Testing Diagnoses Class 3 severe obesity due to excess calories without serious comorbidity with body mass index (BMI) greater than or equal to 70 in adult Gee Contreras MD [facility] [place] [address] [facility] Pre [place]mit [place] [address] [place] [address] Referral ID Status Reason Start Date Expiration Date V isits Requested Visits Authorized [id number] Closed Consult, Test & Treat 01/26/2023 01/26/2024 1 1 Encounter Details Date Type Department Care Team (Late st Contact Info) Description 02/12/2023 10:00 AM EDT Office [place] [address] Social History Tobacco Use Types [...] - 02/12/2023 10:00 AM EDT Pt and EXECUTIVE PERSONAL ASSISTANT [facility] in [facility] for anesthesia consult today with Dr Dumont. The patient was given [facility] Perioperative Care Program booklet. The following medication [...] in this encounter Plan of Treatment Scheduled Referrals Name Type Priority Associated Diagnoses [...] can, buy fresh vegetables and fruit from [employer]-sent message with resources -Choose whole grain [...] Note: Practice STOP and Urge Surfing. Health Dye Automation Operator will send hand-outs. Movement Lifestyle On track( 023 1:14 PM EDT) Riddhi Buchanan RD Note: Continue to walk stairs and walks when can. Will continue using stairs as it's colder. Look into finding weights free online or at [employer] stores. Could use water-filled milk jugs as weights-a full gallon jug would be 8 lbs. Will look into nearby rec center 04/16/22 NATHALIA documented as of this encounter Visit Diagnoses Not on filedocumented in this encounter Care Teams Sales Data Analyst Relationship Specialty Start Date End Date Lia Pearson APRN [address] [place] [address] PCP - General Geriatric Medicine 02/09/22 documented as of this encounter
--- OUTSIDE RECORDS SUMMARY | 2024-02-13 18:03 | XMS_ITS | Encounter Summary ---
[place] [address] Care Team Providers Care Accounting Support Specialist Name Role Phone Lia Pearson APRN Primary Care Provider [phone] Encounter Details Date Type Department Care Team [...] Note: Practice STOP and Urge Surfing. Health Matcher Operator will send hand-outs. Movement Lifestyle On track( 023 1:14 PM EDT) Riddhi Buchanan RD Note: Continue to walk stairs and walks when can. Will continue using stairs as it's colder. Look into finding weights free online or at [employer] stores. Could use water-filled milk jugs as weights-a full gallon jug would be 8 lbs. Will look into nearby rec center 04/16/22 NATHALIA documented as of this encounter Visit Diagnoses Not on filedocumented in this encounter Care Teams Accounting Support Specialist Relationship Specialty Start Date End Date Lia Pearson APRN [address] [place] [address] PCP - General Geriatric Medicine 02/09/22 documented as of this encounter
--- OUTSIDE RECORDS SUMMARY | 2024-02-13 18:03 | XMS_ITS | Encounter Summary ---
Author [facility] [place] [address] Care Team Providers Care Real Estate Loan Processor Name Role Phone Lia Pearson APRN Primary Care Provider [phone] Encounter Details Date Type Department Care Team (Late st Contact Info) Description 02/09/2023 Telephone Obstetrics [place] [phone] Roseanne Richard Social History Tobacco Use Types [...] Lifestyle On track( 023 1:14 PM EDT) iRddhi Buchanan RD Note: Eating Slowly and taking [...] Note: Practice STOP and Urge Surfing. Health Electronics Manufacturer will send hand-outs. Movement Lifestyle On track( 023 1:14 PM EDT) Riddhi Buchanan RD Note: Continue to walk stairs and walks when can. Will continue using stairs as it's colder. Look into finding weights free online or at [employer] stores. Could use water-filled milk jugs as weights-a full gallon jug would be 8 lbs. Will look into nearby rec center 04/16/22 NATHALIA documented as of this encounter Visit Diagnoses Not on filedocumented in this encounter Care Teams Real Estate Loan Processor Relationship Specialty Start Date End Date Lia Pearson APRN [address] [place] [address] PCP - General Geriatric Medicine 02/09/22 documented as of this encounter
--- OUTSIDE RECORDS SUMMARY | 2024-02-13 18:03 | XMS_ITS | Encounter Summary ---
[place] [address] Care Team Providers Care Rec Therapist Name Role Phone Lia Pearson APRN Primary Care Provider [phone] Reason for Visit * Reason Onset Date Comments Questions 11/27/2022 Encounter Details Date Type Department Care Team (Late st Contact Info) Description 11/27/2022 Telephone Weight [place] [id number] Joselin Guerrero Questions Social History Tobacco Use [...] can, buy fresh vegetables and fruit from [employer]-sent message with resources -Choose whole grain options [...] Note: Practice STOP and Urge Surfing. Health Tack Puller will send hand-outs. Movement Lifestyle On track( 1:14 PM EDT) Riddhi Buchanan RD Note: Continue to walk stairs and walks when can. Will continue using stairs as it's colder. Look into finding weights free online or at [employer] stores. Could use water-filled milk jugs as weights-a full gallon jug would be 8 lbs. Will look into nearby [facility] 04/16/22 NATHALIA documented as of this encounter Visit Diagnoses Not on filedocumented in this encounter Care Teams Rec Therapist Relationship Specialty Start Date End Date Lia Pearson APRN [address] [place] [address] PCP - General Geriatric Medicine 02/09/22 documented as of this encounter
--- OUTSIDE RECORDS SUMMARY | 2024-02-13 18:03 | XMS_ITS | Encounter Summary ---
[place] [address] Care Team Providers Care Home Delivery Driver Name Role Phone Lili Lia BUNCH Primary Care Provider +1 [phone] Reason for Visit * Auth/Cert (Routine) Specialty Diagnoses / Procedures Referred By Della kern Referred To Contact Diagnoses Vaginal bleeding Vaginal bleeding Vicky Brooks MD [facility] [address] OBSTET[place]ICS [place] [address] [facility] Referral ID Status Reason Start Date Expiration Date Visits Re quested Visits Authorized [id number] 1 1 Encounter Details Date Type Department Care Team (Late st Contact Info) Description 10/13/2022 7:18 PM [place] [address] Jackson Michelle MD [facility] [place] [address] Suresh Beard CRNA [facility] [address] Anesthesia Record Procedure Summary Procedure Name Responsible Anesthesiologist Anesthesia Start Time Anesthesia Stop Time RADIOFREQUENCY ABLATION Jackson Michelle MD 191710/13/222127 Events Date Time Event Comment 10/13/20221916 AN Verify 1917 Start 1917 An Start Data 1928 An Induction 1930 [...] dorsal arch vein (top of hand), left; havi-ctn-vqonbt catheter system; Ultrasound Guidance; 20 gauge; darshana gao; tolerated well; LDA not present upon assessment; 10/14/22; 201503/03/22 0821 by Bo Gao MD 10/14/222015 by Joselin Joseph LNA Incision 03/03/22; 0833; midl ine; vagina; other (see comments); hyesteroscopy; 06/05/23; 1002 03/03/22 0833 by Sadiq Whyte RN 06/05/23 1002 by Gustabo Russ RN (RETIRED) Peripheral IV Line - Single Lumen 10/13/22; (SEISMOMETER OPERATOR); median cubital vein (antecubital fossa), left; 18 gauge; SEISMOMETER OPERATOR; 10/15/22; 1542 10/13/22 0000 by Estephania Baird RN 10/15/22 1542 by Kaya Godfrey RN (RETIRED) Peripheral IV Line - Single Lumen 10/13/22; (SEISMOMETER OPERATOR); dorsal arch vein (top of hand), right; 20 gauge; SEISMOMETER OPERATOR; 10/14/22; 201410/13/22 0000 by Estephania Baird RN 10/14/222014 by Joselin Joseph LNA ETT Mask Ventilation: No t Attempted (0); ETT [...] Procedure Summary Date: 10/13/22 Room / Location: [facility] INTERVENTIONAL RADIOLOGY 2 / [facility] Anesthesia Start: 1917 Anesthesia Stop: 2127 Procedure: RADIOFREQUENCY ABLATION Diagnosis: (.) Surgeons: Pradip Avila MD Responsible Provider: Jackson Michelle MD Anesthesia Type: general ASA Status: 3 - Emergent All Anesthesia Providers: Anesthesiologist: Jackson Michelle MD LEAD JAVA J2EE DEVELOPER: Kyler Godfrey CRNA Vitals Value Taken Time BP 100/50 10/13/222145 Temp 36 ??C (96.8 ??F) 10/13/222125 Pulse 118 10/13/222150 Resp 22 10/13/222150 SpO2 95 % 10/13/222150 Pain Level Vitals shown include unvalidated device data. Patient Location: PACU/[facility] Level of Consciousness: Conscious but Sleepy Pain [...] 09/26/2021 ??? Long-term insulin use 09/26/2021 ??? pen[facility]entiary 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 09/26/2021 [...] ANESTHESIA performed by Sabrina Swain MD at [facility] MAIN OR ??? PRG ECHOGRAPHY TRANSVAGINAL NON-OB Midline 03/03/2022 ULTRASOUND, TRANSVAGINAL (WRVU 0.69) performed by Sabrina Swain MD at [facility] OR ??? PRO HYSTEROSCOPY, W/ENDO BX N/A 03/03/2022 HYSTEROSCOPY, SURG W/ENDOMETRIAL SAMPLING, POLYPECTOMY (WRVU 4.74) performed by Sabrina Swain MD [facility] OR ??? PRO INSERT INTRAUTERINE DEVICE N/A 03/03/2022 INSERTION OF IUD, VAGINAL APPROACH (WRVU 1.01) performed by Sabrina Swain MD at [facility] OR ??? PRO PELVIC EXAMINATION W ANESTH N/A 03/03/2022 PELVIC EXAM UNDER ANESTHESIA (WRVU 1.75) performed by Sabrina Swain MD at [facility] OR Social History Tobacco Use ??? Smoking status: Former ??? Smokeless tobacco: Never Substance Use Topics ??? Alcohol use: Not Currently Social History Substance and Sexual Activity Drug Use Never Allergies Allergen Reactions ??? Fluoxetine Affected glucose level Medications: MAR and/or home medications have been reviewed. Physical Exam: Preprocedure Vitals Current as of 10/13/221910 BP: 119/58 Pulse: 96 Resp: 17 SpO2: [...] consented to blood products. Plan discussed with LEAD JAVA J2EE DEVELOPER. Anesthesia Screening documented in this encounter Miscellaneous [...] can, buy fresh vegetables and fruit from [employer]-sent message with resources -Choose whole grain options [...] Practice STOP and Urge Surfing. Health Supervisor Instrument Mechanics will send hand-outs. Movement Lifestyle On track( 1:14 PM EDT) Riddhi Buchanan RD Note: Continue to walk stairs and walks when can. Will continue using stairs as it's colder. Look into finding weights free online or at [employer] stores. Could use water-filled milk jugs as weights-a full gallon jug would be 8 lbs. Will look into nearby [facility] center 04/16/22 NATHALIA documented as [...] injection Intravenous, PRN, Starting on Wed10/13/22 at 2039, Until Wed10/13/22 at 2149, Anesthesia Intra-op, Routine Given 10/13/2022 8:39 PM EDT 10 mg lactated ringers infusion Intravenous, CONTINUOUS PRN, Starting on Wed10/13/22 at 1918, Until Wed10/13/22 at 2149, Anesthesia Intra-op New Bag 10/13/2022 7:18 PM EDT ondansetron (pf) (Zofran) (2 mg/mL) injection Intravenous, PRN, Starting on Wed10/13/22 at 2059, Until Wed10/13/22 at 2149, Anesthesia Intra-op, Routine Given 10/13/2022 8:59 PM EDT 4 mg PHENYLephrine in NS (PF) (JANE-SYNEPHRINE) 0.8 mg/10 mL (80 mcg/mL) multi-dose injection Syringe Intravenous, PRN, Starting on Wed10/13/22 at 1929, Until Wed10/13/22 at 2149, Anesthesia Intra-op, Routine Given 10/13/2022 7:29 PM EDT 240 mcg propofoL (Diprivan) 10 mg/mL bolus injection (Anesthesia) Intravenous, PRN, Starting on Wed10/13/22 at 1927, Until Wed10/13/22 at 2149, Anesthesia Intra-op Given 10/13/2022 8:13 PM EDT 50 mg Given 10/13/2022 7:29 PM EDT 300 mg Given 10/13/2022 7:27 PM EDT 80 mg rocuronium (Zemuron) (10 mg/mL) multi-dose injection Intravenous, PRN, Starting on Wed10/13/22 at 1935, Until Wed10/13/22 at 0, Anesthesia Intra-op, Routine Given 10/13/2022 8:09 PM EDT 30 mg Given 10/13/2022 7:35 PM EDT 50 mg succinylcholine (Anectine;Quelicin) (20 mg/mL) injection Intravenous, PRN, Starting on Wed10/13/22 at 1929, Until Wed10/13/22 at 2149, Anesthesia Intra-op, Routine Given 10/13/2022 7:29 PM EDT 200 mg sugammadex (Bridion) 100 mg/mL injection Intravenous, PRN, Starting on Wed10/13/22 at 2103, Until Wed10/13/22 at 215, Anesthesia Intra-op, Routine Given 10/13/2022 9:03 PM EDT 400 mg documented in this encounter Care Teams Home Delivery Driver Relationship Specialty Start Date End Date Lia Pearson APRN [address] [place] [address] PCP - General Geriatric Medicine 02/09/22 documented as of this encounter
--- OUTSIDE RECORDS SUMMARY | 2024-02-13 18:03 | XMS_ITS | Encounter Summary ---
[place] [address] Care Team Providers Care Foot Gatherer Name Role Phone Lia Pearson APRN Primary Care Provider [phone] [phone] Encounter Details Date Type Department Care Team (Late st Contact Info) Description 12/18/2022 2:00 PM EDT Notes [place] [address] Social History Tobacco Use Types Packs/Day Years [...] SURGERY ON DECEMBER 18, 2022 FOR THE [employer] documented in this encounter Plan of [...] can, buy fresh vegetables and fruit from [employer] market-sent message with resources -Choose whole grain [...] Practice STOP and Urge Surfing. Health Technical Operator will send hand-outs. Movement Lifestyle On track( 023 1:14 PM EDT) Riddhi Buchanan RD Note: Continue to walk stairs and walks when can. Will continue using stairs as it's colder. Look into finding weights free online or at [employer] stores. Could use water-filled milk jugs as weights-a full gallon jug would be 8 lbs. Will look into nearby rec center 04/16/22 NATHALIA documented as of this encounter Visit Diagnoses Not on filedocumented in this encounter Care Teams Foot Gatherer Relationship Specialty Start Date End Date Lia Pearson APRN [address] [place] [place] [address] PCP - General Geriatric Medicine 02/09/22 documented as of this encounter
--- OUTSIDE RECORDS SUMMARY | 2024-02-13 18:03 | XMS_ITS | Encounter Summary ---
Author Organization [facility] [place] [address] Care Team Providers Care Model Home Sales Greeter Name Role Phone Lia Pearson APRN Primary Care Provider [phone] Reason for Visit * Consultation (Routine) - Closed Specialty Diagnoses / Procedures Referred By Della kern Referred To Contact Interventional Radiology Diagnoses Vaginal bleeding Marco Patel MD [facility] DR OBSTETRICS & [place] [address] [facility] [place] [address] [place] [address] Referral ID Status Reason Start Date Expiration Date V isits Requested Visits Authorized [id number] Closed Specialty Service Requested 10/15/2022 10/15/2023 1 1 Encounter Details Date Type Department Care Team (Late st Contact Info) Description 11/12/2022 2:00 PM EDT TH Visit (TeleHealth) [place] [address] Michael Morgan DO [facility] [place] [address] Vaginal bleeding Social History Tobacco [...] MPH Staff Physician - Interventional Radiology Pager [phone] documented in this encounter Plan of Treatment [...] can, buy fresh vegetables and fruit from [employer] market-sent message with resources -Choose whole grain [...] Note: Practice STOP and Urge Surfing. Health Buckle Frame Shaper will send hand-outs. Movement Lifestyle On track( 023 1:14 PM EDT) Riddhi Buchanan RD Note: Continue to walk stairs and walks when can. Will continue using stairs as it's colder. Look into finding weights free online or at [employer] stores. Could use water-filled milk jugs as weights-a full gallon jug would be 8 lbs. Will look into nearby rec center 04/16/22 NATHALIA documented as of this encounter Visit Diagnoses Diagnosis Vaginal bleeding Other specified noninflammatory disorder of vagina documented in this encounter Care Teams Model Home Sales Greeter Relationship Specialty Start Date End Date Lia Pearson APRN [address] [place] [address] PCP - General Geriatric Medicine 02/09/22 documented as of this encounter
--- OUTSIDE RECORDS SUMMARY | 2024-02-13 18:03 | XMS_ITS | Encounter Summary ---
Author Organization [facility] Address [facility] [place] [address] Care Team Providers Care Radiologic Technologist Chief Name Role Phone Lia Pearson APRN Primary Care Provider [phone] [phone] Encounter Details Date Type Department Care Team (Late st Contact Info) Description 01/28/2023 E-Consult [place] [address] Claudine Yang MD [facility] DR HEMATOLOGY [place] [address] Pre-op evaluation; Bleeding Social History Tobacco Use [...] op). She is an established patient of [facility]. I have replaced the work up bleeding diathesis screen inthe system. I will let my medical records secretary let her know to get the [...] can, buy fresh vegetables and fruit from [employer] market-sent message with resources -Choose whole grain [...] Note: Practice STOP and Urge Surfing. Health Sports Marketing Coordinator will send hand-outs. Movement Lifestyle On track( 023 1:14 PM EDT) Riddhi Buchanan RD Note: Continue to walk stairs and walks when can. Will continue using stairs as it's colder. Look into finding weights free online or at [employer] stores. Could use water-filled milk jugs as weights-a full gallon jug would be 8 lbs. Will look into nearby rec center 04/16/22 NATHALIA documented as of this encounter Visit Diagnoses Diagnosis Pre-op evaluation Preoperative examination, unspecified Bleeding Hemorrhage, unspecified documented in this encounter Care Teams Radiologic Technologist Chief Relationship Specialty Start Date End Date Lia Pearson APRN [address] [place] [address] PCP - General Geriatric Medicine 02/09/22 documented as of this encounter
--- OUTSIDE RECORDS SUMMARY | 2024-02-13 18:03 | XMS_ITS | Encounter Summary ---
[place] [address] Care Team Providers Care Carpenter Repair Name Role Phone Lia Pearson APRN Primary Care Provider [phone] Encounter Details Date Type Department Care Team [...] Note: Practice STOP and Urge Surfing. Health Procurement Agent will send hand-outs. Movement Lifestyle On track( 023 1:14 PM EDT) Riddhi Buchanan RD Note: Continue to walk stairs and walks when can. Will continue using stairs as it's colder. Look into finding weights free online or at [employer] stores. Could use water-filled milk jugs as weights-a full gallon jug would be 8 lbs. Will look into nearby rec center 04/16/22 NATHALIA documented as of this encounter Visit Diagnoses Not on filedocumented in this encounter Care Teams Carpenter Repair Relationship Specialty Start Date End Date Lia Pearson APRN [address] [place] [address] PCP - General Geriatric Medicine 02/09/22 documented as of this encounter
--- OUTSIDE RECORDS SUMMARY | 2024-02-13 18:03 | XMS_ITS | Encounter Summary ---
[place] [address] Care Team Providers Care Facilities Technician Name Role Phone Lia Pearson APRN Primary Care Provider [phone] Encounter Details Date Type Department Care Team (Late st Contact Info) Description 12/08/2022 Telephone Obstetrics [place] [address] Siena Fuller, RN Social History Tobacco Use [...] by mouth 2 times daily. TC to [facility] in [place], [place] to clarify rx. Per pharmacy, there [...] can, buy fresh vegetables and fruit from [employer]-sent message with resources -Choose whole grain options [...] Note: Practice STOP and Urge Surfing. Health Kiln Stacker will send hand-outs. Movement Lifestyle On track( 023 1:14 PM EDT) Riddhi Buchanan RD Note: Continue to walk stairs and walks when can. Will continue using stairs as it's colder. Look into finding weights free online or at [employer] stores. Could use water-filled milk jugs as weights-a full gallon jug would be 8 lbs. Will look into nearby rec center 04/16/22 NATHALIA documented as of this encounter Visit Diagnoses Not on filedocumented in this encounter Care Teams Facilities Technician Relationship Specialty Start Date End Date Lia Pearson APRN [address] [place] [address] PCP - General Geriatric Medicine 02/09/22 documented as of this encounter
--- OUTSIDE RECORDS SUMMARY | 2024-02-13 18:03 | XMS_ITS | Encounter Summary ---
Author Organization [facility] [place] [address] Care Team Providers Care Job Checker Name Role Phone Lia Pearson APRN Primary Care Provider [phone] Encounter Details Date Type Department Care Team (Latest Contact Info) Description 11/24/2022 10:30 AM EDT TH Visit (TeleHealth) [place] [id number] Raisa Vallejo, PhD [facility] DR [facility] [place] [address] Schizoaffective disorder, unspecified type Social History Tobacco [...] BARIATRIC SURGERY PSYCHOLOY FOLLOW UP NOTE [facility] AT [facility] [address] Dept: [phone] Loc: [phone] 11/24/2022 10:38 AM Zenia Worley is a [...] visit they were located at home in [place]. Zenia Worley is aware that for any urgent matter they can call [phone].. RECOMMENDATION BASED ON PSYCHOLOGICAL EVALUATION YELLOW - [...] in the past, but without lasting success. Zenia experienced marked mental health problems in [...] can, buy fresh vegetables and fruit from [employer] market-sent message with resources -Choose whole grain [...] Note: Practice STOP and Urge Surfing. Health Sld Educational Aide will send hand-outs. Movement Lifestyle On track( 1:14 PM EDT) Riddhi Buchanan RD Note: Continue to walk stairs and walks when can. Will continue using stairs as it's colder. Look into finding weights free online or at [employer] stores. Could use water-filled milk jugs as weights-a full gallon jug would be 8 lbs. Will look into nearby rec center 04/16/22 documented as of this encounter Visit Diagnoses Diagnosis Schizoaffective disorder, unspecified type documented in this encounter Care Teams Job Checker Relationship Specialty Start Date End Date Lia Pearson APRN [address] [place] [address] PCP - General Geriatric Medicine 02/09/22 documented as of this encounter
--- OUTSIDE RECORDS SUMMARY | 2024-02-13 18:03 | XMS_ITS | Encounter Summary ---
[place] [address] Care Team Providers Care Shock Absorber Installer Name Role Phone Lia Pearson APRN Primary Care Provider [phone] Encounter Details Date Type Department Care Team [...] can, buy fresh vegetables and fruit from [employer] market-sent message with resources -Choose whole grain [...] Note: Practice STOP and Urge Surfing. Health Rubber Goods Inspector will send hand-outs. Movement Lifestyle On track( 023 1:14 PM EDT) Riddhi Buchanan RD Note: Continue to walk stairs and walks when can. Will continue using stairs as it's colder. Look into finding weights free online or at [employer] stores. Could use water-filled milk jugs as weights-a full gallon jug would be 8 lbs. Will look into nearby rec center 04/16/22 NATHALIA documented as of this encounter Visit Diagnoses Not on filedocumented in this encounter Care Teams Shock Absorber Installer Relationship Specialty Start Date End Date Lia Pearson APRN [address] [place] [address] PCP - General Geriatric Medicine 02/09/22 documented as of this encounter
--- OUTSIDE RECORDS SUMMARY | 2024-02-13 18:03 | XMS_ITS | Encounter Summary ---
Author Organization [facility] Address [facility] [place] [address] Care Team Providers Care Instructional Technology Specialist Name Role Phone Lia Pearson APRN Primary Care Provider [phone] Encounter Details Date Type Department Care Team (Late st Contact Info) Description 11/13/2022 11:15 AM EDT Office Visit [place] [address] Jenni Waller MD [facility] DR [facility] [place] [address] Class 3 severe obesity with body mass [...] the surgical team to schedule a visit: [phone] After your bariatric surgery, you will follow-up with the surgical team frequently for 6-12 months.Your bariatric team will help decide if you need to return to the Weight & Wellness center within that time. If you and your surgical team determine that you should follow-up at the [facility] [place] in the future, please call to schedule [...] Waller MD - 11/13/2022 11:15 AM EDT [facility] & [facility] Patient Name: Zenia Worley Date of : [...] Migraine headaches, PTSD.. This is Visit #4 [facility] visit for this 32 y.o. patient. Weight gain due to: : IR since her teens Why is now the time to try again? Got out from under family who did not want her ot have surgery Initial visit/weight Highest weight 450-460# Initial BS weight: 433 Initial weight 12/19/21: 429.75 on 11/[address] Swain (azure architect) Initial BMI: 72 Goal weight: <200 10% loss: 390 Other goals: health Today's weight: 419 Change since prior: -6 Will need to be at 413# er ale surg requirements [facility] Team: Jenni Waller MD, Riddhi Wilson RD and Davidson Allen, Health Safety And Skill Based Pay Manager HPI TODAY PATIENT REPORTS Green light yesterday [...] not change dose of gabapentin. Managed by proof sorter - had discussed tapering it with her. [...] using Ozempic). CGM really helped. Following with: proof sorter at [facility] or [facility], Lilian Wesley APRN - ELEVATED LFTs/NAFLD Lab [...] by brother age 13/she initiatedcall with case sealer/mother did not believe her and advised she [...] [x] Attended bariatric information session 12/29/21 Off [employer] by july - needed to be stable [...] and Thyroid dz Referrals pending: Dietitian, Health Safety And Skill Based Pay Manager, AOM: no specific AOM's DM: gave instructions [...] can, buy fresh vegetables and fruit from [employer] market-sent message with resources -Choose whole grain [...] Note: Practice STOP and Urge Surfing. Health Safety And Skill Based Pay Manager will send hand-outs. Movement Lifestyle On track( 023 1:14 PM EDT) Riddhi Buchanan RD Note: Continue to walk stairs and walks when can. Will continue using stairs as it's colder. Look into finding weights free online or at [employer] stores. Could use water-filled milk jugs as weights-a full gallon jug would be 8 lbs. Will look into nearby rec center 04/16/22 NATHALIA documented as of this encounter Procedures Procedure Name Priority Date/Time Associated Diagnosis Comments HEMOGLOBIN A1C Routine 10/15/2022 documented in this encounter Results * Hemoglobin A1c (10/15/2022) Hemoglobin A1c 5.8 Blood Historical Provider CHEMISTRY ORDERAB LES [...] type documented in this encounter Care Teams Instructional Technology Specialist Relationship Specialty Start Date End Date Lia Pearson [place] [address] PCP - General Geriatric Medicine 02/09/22 documented as of this encounter
--- OUTSIDE RECORDS SUMMARY | 2024-02-13 18:03 | XMS_ITS | Encounter Summary ---
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 MAIN OR IR ARTERIAL INTERVENTION 10/13/2022 IR Arterial Intervention 10/13/[address] [facility] INTERVENTIONL RAD PRG ECHOGRAPHY TRANSVAGINAL NON-OB Midline 03/03/2022 ULTRASOUND, TRANSVAGINAL (WRVU 0.69) performed by Sabrina Swain MD at [facility] MAIN OR PRO HYSTEROSCOPY, W/ENDO BX N/A 03/03/2022 HYSTEROSCOPY, SURG W/ENDOMETRIAL SAMPLING, POLYPECTOMY (WRVU 4.74) performed by Sabrina Swain MD [facility] MAIN OR PRO INSERT INTRAUTERINE DEVICE N/A 03/03/2022 INSERTION OF IUD, VAGINAL APPROACH (WRVU 1.01) performed by Sabrina Swain MD at [facility] MAIN OR PRO PELVIC EXAMINATION W ANESTH N/A 03/03/2022 PELVIC EXAM UNDER ANESTHESIA (WRVU 1.75) performed by Sabrina Swain MD at [facility] MAIN OR Family History Problem Relation [...] can, buy fresh vegetables and fruit from [employer] market-sent message with resources -Choose whole grain [...] Note: Practice STOP and Urge Surfing. Health Weaver [employer] will send hand-outs. Movement Lifestyle On track( 023 1:14 PM EDT) Riddhi Buchanan RD Note: Continue to walk stairs and walks when can. Will continue using stairs as it's colder. Look into finding weights free online or at [employer] stores. Could use water-filled milk jugs as weights-a full gallon jug would be 8 lbs. Will look into nearby [facility] center 04/16/22 NATHALIA documented as of this encounter Visit Diagnoses Diagnosis Abnormal uterine bleeding (AUB)- Primary documented in this encounter Care Teams Pharmacovigilance Scientist Relationship Specialty Start Date End Date Lia Pearson APRN [address] [place] [address] PCP - General Geriatric Medicine 02/09/22 documented as of this encounter
--- OUTSIDE RECORDS SUMMARY | 2024-02-13 18:03 | XMS_ITS | Encounter Summary ---
Author Organization Formerly [facility], [facility] Address [facility] [place] [address] Care Team Providers Care Industrial Controls Technician Name Role Phone Lia Pearson APRN Primary Care Provider [phone] Encounter Details Date Type Department Care Team (Late st Contact Info) Description 01/28/2023 Orders Only [place] [address] Claudine Yang MD [facility] [address] HEMATOLOGY [place] [address] Excessive bleeding in premenopausal period (Primary Dx) [...] Note: Practice STOP and Urge Surfing. Health Interviewing Clerk will send hand-outs. Movement Lifestyle On track( 023 1:14 PM EDT) Riddhi Buchanan RD Note: Continue to walk stairs and walks when can. Will continue using stairs as it's colder. Look into finding weights free online or at [employer] stores. Could use water-filled milk jugs as weights-a full gallon jug would be 8 lbs. Will look into nearby rec center 04/16/22 NATHALIA documented as of this encounter Visit Diagnoses Diagnosis Excessive bleeding in premenopausal period- Primary Premenopausal menorrhagia documented in this encounter Care Teams Industrial Controls Technician Relationship Specialty Start Date End Date Lia Pearson APRN [address] [place] [address] PCP - General Geriatric Medicine 02/09/22 documented as of this encounter
--- OUTSIDE RECORDS SUMMARY | 2024-02-13 18:03 | XMS_ITS | Encounter Summary ---
Author Organization [facility] Address [facility] [place] [address] Care Team Providers Care Tank Insulator Rubber Name Role Phone Lia Pearson APRN Primary Care Provider [phone] Encounter Details Date Type Department Care Team (Late st Contact Info) Description 12/03/2022 Telephone [place] [address] Raisa Vallejo, PhD [facility] [address] [facility] [address] Social History Tobacco Use Types Packs/Day Years [...] can, buy fresh vegetables and fruit from [employer]-sent message with resources -Choose whole grain [...] Note: Practice STOP and Urge Surfing. Health Video Game Tester will send hand-outs. Movement Lifestyle On track( 023 1:14 PM EDT) Riddhi Buchanan RD Note: Continue to walk stairs and walks when can. Will continue using stairs as it's colder. Look into finding weights free online or at [employer] stores. Could use water-filled milk jugs as weights-a full gallon jug would be 8 lbs. Will look into nearby rec center 04/16/22 NATHALIA documented as of this encounter Visit Diagnoses Not on filedocumented in this encounter Care Teams Tank Insulator Rubber Relationship Specialty Start Date End Date Lia Pearson APRN [address] [place] [address] PCP - General Geriatric Medicine 02/09/22 documented as of this encounter
--- OUTSIDE RECORDS SUMMARY | 2024-02-13 18:03 | XMS_ITS | Encounter Summary ---
[place] [address] Care Team Providers Care Special Diet Cook Name Role Phone Lia Pearson APRN Primary Care Provider [phone] Encounter Details Date Type Department Care Team [...] Note: Practice STOP and Urge Surfing. Health Interlocking Installer will send hand-outs. Movement Lifestyle On track( 023 1:14 PM EDT) Riddhi Buchanan RD Note: Continue to walk stairs and walks when can. Will continue using stairs as it's colder. Look into finding weights free online or at [employer] stores. Could use water-filled milk jugs as weights-a full gallon jug would be 8 lbs. Will look into nearby rec center 04/16/22 NATHALIA documented as of this encounter Visit Diagnoses Not on filedocumented in this encounter Care Teams Special Diet Cook Relationship Specialty Start Date End Date Lia Pearson APRN [address] [place] [address] PCP - General Geriatric Medicine 02/09/22 documented as of this encounter
--- OUTSIDE RECORDS SUMMARY | 2024-02-13 18:03 | XMS_ITS | Encounter Summary ---
Author [facility] [place] [address] Care Team Providers Care Director Of Business Continuity Name Role Phone Lia Pearson APRN Primary Care Provider [phone] Encounter Details Date Type Department Care Team (Late st Contact Info) Description 11/11/2022 Telephone Obstetrics [place] [id number] Roseanne Richard Social History Tobacco Use Types [...] Note: Practice STOP and Urge Surfing. Health Solar Hot Water Installer will send hand-outs. Movement Lifestyle On track( 023 1:14 PM EDT) Riddhi Buchanan RD Note: Continue to walk stairs and walks when can. Will continue using stairs as it's colder. Look into finding weights free online or at [employer] stores. Could use water-filled milk jugs as weights-a full gallon jug would be 8 lbs. Will look into nearby rec center 04/16/22 NATHALIA documented as of this encounter Visit Diagnoses Not on filedocumented in this encounter Care Teams Director Of Business Continuity Relationship Specialty Start Date End Date Lia Pearson APRN [address] [place] [address] PCP - General Geriatric Medicine 02/09/22 documented as of this encounter
--- OUTSIDE RECORDS SUMMARY | 2024-02-13 18:03 | XMS_ITS | Encounter Summary ---
[place] [address] Care Team Providers Care Sales Account Associate Name Role Phone Lia Pearson JULIO C Primary Care Provider [phone] Reason for Referral * Consultation (Routine) - Closed Specialty Diagnoses / Procedures Referred By Contac t Referred To Contact Interventional Radiology Diagnoses Vaginal bleeding Marco Patel MD [facility] OBSTETRICS & [place] [address] [facility] [place] Interv [place] [address] [place] [address] Referral ID Status Reason Start Date Expiration Date V isits Requested Visits Authorized [id number] Closed Specialty Service Requested 10/15/2022 10/15/2023 1 1 Reason for Visit * Reason Comments Vaginal Bleeding Since * Auth/Cert (Routine) Specialty Diagnoses / Procedures Referred By Contac t Referred To Contact Diagnoses Vaginal bleeding Vaginal bleeding Mau Marks MD [facility] OBSTETRICS [place] [address] [facility] Referral ID Status Reason Start Date Expiration Date Visits Re quested Visits Authorized [id number] 1 1 Encounter Details Date Type Department Care Team (Latest Contact Info) Description 10/13/2022 4:31 PM EDT - 10/15/2022 4:30 PM EDT Hospital Encounter Surgical Unit Level 3 Wing D at [facility] [place] [id number] Zeng, Estee Donnelly MD [facility] [address] [place] [address] Mau Marks MD [facility] OBSTETRICS [place] [address] Non-ST elevation myocardial infarction (NSTEMI); Abnormal uterine [...] Zenia Worley Patient Age: 32 y.o. Language: Marshallese Race: Black or Ethnicity: Not nor Admit date: 10/13/2022 Discharge date and time: 10/15/2022 Attending Physician: No att. providers found Discharge Physician: Dr. Heath Follow-up Recommendations for Providers: -- Follow up outpatient with in Comprehensive Ophthalmologist clinic on 11/13/[address] Ahumada. -- Follow up with outpatient interventional radiology Inpatient Provider Contact Information: [facility] Comprehensive Ophthalmologist, Phone number [phone] Discharge Diagnoses (Hospital Problems) and Secondary Diagnoses [...] hypertension, benign ??? Long-term insulin use ??? manager terminal 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 ??? Mixed hyperlipidemia ??? Other specified hypothyroidism ??? PTSD (post-traumatic stress disorder) ??? Schizoaffective disorder Operations/Major Procedures: 10/13/2022: IR guided uterine artery embolization History of Presentation: Zenia Worley is a 32 y.o. G0 with PMH significant for AUB, bleeding disorder, DM, IBS, hypothyroidism, hypertension, RICHMOND (on CPAP), non-specific chest pain, and BMI 72. She presented to [facility] today with dizziness and lightheadedness related to [...] she awoke this morning. She called her EVENT PROMOTER in [facility] because she felt dizzy and lightheaded with just standing. She was instructed to present to medical care, so she then called an ambulance. ?? At [facility], they treated her bleeding with 2 U PRBC and TXA. Hgb was 8.9. Additionally recussitated with IV fluids. They performed a transabdominal US (patient does not tolerate transvaginal due to trauma history) and they did not see the IUD. ?? Upon arrival at [facility], she received an additional 3 units for [...] menses. She had a visit with a galvanometer assembler at [facility], but was unable tocomplete the laboratory testing due to transportation. Prior studies were negative for vWF or factor 8 deficiency, though the galvanometer assembler suggested repeating labs as these levels can [...] up with IR outpatient to further investigate ferry terminal agent IR embolization options with a plan to follow up with [facility] as noted above. Vital signs at [...] or concerns related to this hospitalization call: [phone] weekdays, or [phone] weekends or nights. Call your doctor if you develop: --A fever over 101 degrees F --Severe pain -- Nausea / vomiting, diarrhea, intolerance of food or drink --Heavy vaginal bleeding, saturating 1+ heavy pad per hour General Instructions [facility] Vascular and Interventional Radiology Discharge Instructions For [...] is during regular office hours, please call [phone]. If it is after regular office hours, or on weekends or holidays, please call [phone] and ask to speak to the Mobile Application Development Lead biodiesel production technician for Interventional Radiology. You have received medication [...] Berenice Ahumada MD Obstetrics and Gynecology at [facility] Arrive at: Birth Attendant Area 11/13/2022 11:15 AM Jenni Waller MD Weight and Wellness at [facility] Arrive at: Birth Attendant Area [phone] 11/24/2022 10:30 AM Raisa Vallejo, PhD Weight and Wellness at [facility] Arrive at: [place] [phone] To view instructions for your video visit, click here, or visit this website: [email or web address] If you have not previously downloaded the StudyBlue patient portal software, TrafficLand, or the Ninjathat rebecca, please do so by clicking one [...] is: follow up for evlauation of possible alf IR embolization Discharge References/Attachments None Provider Contact Information: Lia Pearson, OFFICE MACHINE SERVICER [phone] documented in this encounter Discharge Instructions * Discharge Instructions* Deneen Grider RN - 10/13/2022 9:35 PM EDT [facility] Vascular and Interventional Radiology Discharge Instructions For [...] is during regular office hours, please call [phone]. If it is after regular office hours, or on weekends or holidays, please call [phone] and ask to speak to the Mobile Application Development Lead biodiesel production technician for Interventional Radiology. You have received medication [...] or concerns related to this hospitalization call: [phone] week, or [phone] weekends or nights. Call your doctor if [...] times daily. 10/15/2021 prazosin (Minipress) 5 mg CapsuleIndications: post traumatic stress disorder Take 10 mg by mouth nightly. Indications: posttraumatic stress syndrome 11/07/2021 glucose 4 gram Tablet, Chewable CHEW ONE TABLET BY MOUTH EVERY 10 MIN. NEEDED FOR HYPOGLYCEMIA UNTIL SYMPTOMS OF LOW BLOOD SUGAR ARE CONTROLLED 11/21/2021 BD AutoShield Duo Pen Needle 30 gauge x 3/16 Needle USE UP TO 5 PEN NEEDLES DAILY 10/31/2021 norethindrone (Aygestin) 5 mg tabletIndications:A bnormal uterine bleeding (AUB) Take 2 tablets by mouth 3 times daily. 180 tablet 6 10/15/2022 07/16/2023 doxepin (Silenor) 6 mg tablet Take 6 [...] Pen Three times a day 06/25/2022 06/02/2023 Jardiance 10 mg tablet Take 10 mg [...] was scheduled and confirmed though RCT. The tour driver will be Mian and he will [...] for follow up in 4 weeks for alf management. -- Continue pad counts. Urinary: Sierra [...] discharge today. Will coordinate follow up with [facility] and IR outpatient and follow up on cardiology recs. Patient plan to be discussed with Dr. Heath attending Marco Patel MD, PGY-1 Obstetrics and Gynecology, Pager #[phone] 10/15/22 Attending note I saw and evaluated [...] cardiology recs. She would benefit from an [facility] Medicaid ride, which will we coordinate in [...] WAQAS VargheseC Interventional Radiology IR Team Pager [phone] * Marco Patel MD - 10/14/2022 6:14 [...] TVUS d/t trauma history -- Consider discussing alf management options. -- Continue pad counts. Urinary: [...] Patel MD, PGY-1 Obstetrics and Gynecology, Pager #[phone] 10/14/22 Associated attestation - Bereniec Ahumada MD - 10/14/2022 11:14 AM EDT [...] patient was seen and discussed with attending Comprehensive Ophthalmologist physician, Cecilia HERNANDEZ. Sabrina Mayfield DO, PGY-1 Obstetrics and Gynecology 10/14/22 * Felipa Alamo RN - 10/13/2022 11:40 PM EDT Patient arrived from PACU via bed. Patient denies pain, chest pain, SOB, nausea, numbness, tingling. Patient has sierra in place. IVF running. Patient on 2L NC. Patient moved to new bed. Patient connected to [employer]. VSS - patient remains tachycardic. Call neal [...] 2 Liters nasal cannula oxygen. -- Paged [phone] for respiratory therapy to establish CPAP care [...] TVUS d/t trauma history -- Consider discussing ferry terminal agent management options Urinary: Sierra catheter in place. [...] Patient plan discussed with Dr. Marks attending correctional facility psychiatrist and Dr. Tee PGY4. MS4 Janie present [...] had presented with heavy bleeding today at [place] and Maria R had talked to Zenia [...] more fully with hematology and the day obstetrics gynecology physician team to determine a more ferry terminal agent plan of care. MAU MARKS MD * Deneen Grider RN - 10/13/2022 8:38 PM EDT ANGIO NURSING DATABASE Name: Zenia Worley Date of : 1990 AGE: 32 y.o. Address: [address] [place] [address] (home) Mobile: Telephone Information: Referring Provider: Usama [...] hypertension, benign I10 Long-term insulin use Z79.4 manager terminal 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 Z79.84 [...] 79 who is admitted in transfer from [facility] with heavy uterine bleeding resulting in hypotension, requiring transfusion. She has recent TVUS with no structural pathology, thickened endometrial lining. Recent hysteroscopy, D&C with benign endometrial findings. She has been on Aygestin 5 mg BID. SERVICE LINE BUS CLEANER team presented to ED [facility] [place] 1 C upon patient arrival for evaluation. Patient is s/p 2 u PRBCs in transport, as well as 1 gm IV TXA. On admission, she had continued heavy vaginal bleeding. Blood pressures with MAPs 60s- 70s. She is reporting lightheadedness and fatigue, as well as chest discomfort. She received 3 additional u PRBCs for Hgb 8.6. SERVICE LINE BUS CLEANER recommended administration of IV [id number] mg STAT, given in ED at 1811. External exam notable for ~100 mL bright red blood and clots seen in ~30 minutes. With fluid resuscitation and blood administration, her MAPs improved to 75-77. HR 90s-100s, at times in 110s- 120s. Given ongoing bleeding recommended IR consultation with uterine artery embolization. IR team transferred patient from ED [facility] [place] to IR suite for attempted UAE versus [...] I10 ??? Long-term insulin use Z79.4 ??? manager terminal 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 Z79.84 [...] ANESTHESIA performed by Sabrina Swain MD at [facility] MAIN OR ??? PRG ECHOGRAPHY TRANSVAGINAL NON-OB Midline 03/03/2022 ULTRASOUND, TRANSVAGINAL (WRVU 0.69) performed by Sabrina Swain MD at [facility] MAIN OR ??? PRO HYSTEROSCOPY, W/ENDO BX N/A 03/03/2022 HYSTEROSCOPY, SURG W/ENDOMETRIAL SAMPLING, POLYPECTOMY (WRVU 4.74) performed by Sabrina Swain MD [facility] MAIN OR ??? PRO INSERT INTRAUTERINE DEVICE N/A 03/03/2022 INSERTION OF IUD, VAGINAL APPROACH (WRVU 1.01) performed by Sabrina Swain MD at [facility] MAIN OR ??? PRO PELVIC EXAMINATION W ANESTH N/A 03/03/2022 PELVIC EXAM UNDER ANESTHESIA (WRVU 1.75) performed by Sabrina Swain MD at [facility] MAIN OR Medications: No current [...] Hobbies? Not really right now. Came to [place] from [place] to work at [employer] - took one year to find housing. [...] hypertension, benign ??? Long-term insulin use ??? longterm 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 ??? Mixed hyperlipidemia ??? Other specified hypothyroidism ??? PTSD (post-traumatic stress disorder) ??? Schizoaffective disorder History of Present Illness: Zenia Worley is a 32 y.o. G0 with PMH significant for AUB, bleeding disorder, DM, IBS, hypothyroidism, hypertension, RICHMOND (on CPAP), non-specific chest pain, and BMI 72. She presented to [facility] today with dizziness and lightheadedness related to [...] hyperplasia or malignancy Pap: NILM HPV neg Zeina states that her bleeding following the procedure [...] she awoke this morning. She called her EVENT PROMOTER in [facility] because she felt dizzy and lightheaded with just standing. She was instructed to present to medical care, so she then called an ambulance. At [facility], they treated her bleeding with 2 U PRBC and TXA. Hgb was 8.9. Additionally recussitated with IV fluids. They performed a transabdominal US (patient does not tolerate transvaginal due to trauma history) and they did not see the IUD. Upon arrival at [facility], she received an additional 3 units for [...] menses. She had a visit with a galvanometer assembler at [facility], but was unable tocomplete the laboratory testing due to transportation. Prior studies were negative for vWF or factor 8 deficiency, though the galvanometer assembler suggested repeating labs as these levels can [...] ANESTHESIA performed by Sabrina Swain MD at [facility] MAIN OR ??? PRG ECHOGRAPHY TRANSVAGINAL NON-OB Midline 03/03/2022 ULTRASOUND, TRANSVAGINAL (WRVU 0.69) performed by Sabrina Swain MD at [facility] MAIN OR ??? PRO HYSTEROSCOPY, W/ENDO BX N/A 03/03/2022 HYSTEROSCOPY, SURG W/ENDOMETRIAL SAMPLING, POLYPECTOMY (WRVU 4.74) performed by Sabrina Swain MD [facility] MAIN OR ??? PRO INSERT INTRAUTERINE DEVICE N/A 03/03/2022 INSERTION OF IUD, VAGINAL APPROACH (WRVU 1.01) performed by Sabrina Swain MD at [facility] MAIN OR ??? PRO PELVIC EXAMINATION W ANESTH N/A 03/03/2022 PELVIC EXAM UNDER ANESTHESIA (WRVU 1.75) performed by Sabrina Swain MD at [facility] MAIN OR Past Obstetric History: [...] Hobbies? Not really right now. Came to [place] from [place] to work at [employer] - took one year to find housing. [...] patient was seen and discussed with attending Comprehensive Ophthalmologist physician. Sabrina Chaparro DO, PGY-1 Obstetrics and [...] the right ovary. She was transferred to [facility] for higherlevel of care. She states she [...] [10/13/222125] Physical Exam Exam conducted with a director part present. Constitutional: Comments: Lying in bed, tired [...] as of 10/14/22 0002 WedOctober 13, 2022 3428 [facility] paged Procedures Assessment and Plan: 32 y.o. [...] emergency department. Patient rapidly seen by the SERVICE LINE BUS CLEANER team who ordered IV estrogen to attempt to stop her vaginal bleeding. She was subsequently evaluated by interventional radiology for arterial embolization per the request of SERVICE LINE BUS CLEANER. Patient did not require any vasoactive medications to support her blood pressure while in the emergency department. She was admitted to the SERVICE LINE BUS CLEANER service and taken to the IR suite [...] this RN. Report given to the IR VIDEO GAME SCRIPT WRITER and other staff. * Estephania Baird RN [...] - 10/13/2022 3:41 PM EDT Sending Facility: [facility] Reason for Transfer: correctional facility psychiatrist services Report: Pt c/o vaginal bleeding with [...] I accepted in transfer from Dr. Fang, [facility] ED The patient will be evaluated in the Emergency Department for vaginal bleeding The EM team will contact the [facility] team as needed The OSH does not agree to take the patient back in transfer after our evaluation and treatment. Transfer and stabilization prior to transfer were not discussed This is a 32-year-old female with a history of anovulatory uterine bleeding status post hysteroscopy and IUD placement at [facility] in February 2022 who presented to the [...] still taking her Aygestin. Dr. Swain from [facility] was on the call the patient will be transferred for evaluation in our ED by the ED team and by [facility]. Based on the extent of the patient's [...] and potential risk/benefit. Zan Meade MD 10/13/22 1454 Zan Meade MD 10/13/22 1506 Zan Meade [...] All are in agreement with plan. CAPO Curry,clinical applications manager Team Case Management Pager #[phone] * Plan of Care - Felipa Alamo [...] 1.0 10/13/2022 PT 10.9 10/13/2022 Current bed: [facility]. Okay to switch to [facility] if more [...] Please contact Gertrude Davenport RN on pager [phone] or the wound care team at [phone] or pager [phone] with skin and wound care concerns or [...] surrogate would be surrogate decision maker per [place] surrogate decision making law. (Only good for 180 days) Any patient receiving care in [place] must abide by [place] law. The hierarchy for surrogate decision making [...] (i) The agent with financial power of attorney at law or a conservator appointed in accordance with [...] respiratory supplies (CPAP) Home Address confirmed as: [address] [place] [address] [address] [facility] [address] Social & Family Supports: All names listed [...] (medicaid [place]) ; Prescription Coverage: Preferred Pharmacy: [id number] - [facility], [place] - [address] [facility] [address] [place] [address] Status: Patient is a : No Primary Care Provider confirmed: Lia Pearson, OFFICE MACHINE SERVICER [phone] Patient/Caregiver Goals of Treatment: Patient would like to return home when bleeding is improved. Potential Needs for Transition of Care: none Agency Referrals: Not Applicable Transportation: no concerns Transportation Anticipated: family or friend will provide Concerns to be Addressed: denies needs/concerns at this time Assessment: Patient is admitted to [facility]ICE LINE [facility]ANER service for vaginal bleeding Plan: Consult wound for wound on left gluteus, consult cardiology for increase trop and try to weanO2. A member of the Care Management team will continue to monitor progress, follow for continuity of care and assist with transition of care planning. CAPO Curry,clinical applications manager Team Case Management Pager #[phone] * Plan of Care - Felipa Alamo [...] when OOB/with ADL's Surveillance [continuous indirect monitoring]: [place], Purposeful Rounding, Nurse Knowledge Exchange * Consult Note - Dmitriy Miller MD - 10/14/2022 4:47 AM EDT Images from the original note were not included. [place] [address] [address] INPATIENT CARDIOLOGY CONSULT NOTE Date of Consultation: 10/14/2022 Admit Date: 10/13/2022 Place of Service: [facility] Responsible Attending: Mau Marks MD Hospital Day [...] Patient describes that when she arrived to [facility] she felt an uncomfortable and sharp pain [...] ANESTHESIA performed by Sabrina Swain MD at [facility] MAIN OR ??? PRG ECHOGRAPHY TRANSVAGINAL NON-OB Midline 03/03/2022 ULTRASOUND, TRANSVAGINAL (WRVU 0.69) performed by Sabrina Swain MD at [facility] MAIN OR ??? PRO HYSTEROSCOPY, W/ENDO BX N/A 03/03/2022 HYSTEROSCOPY, SURG W/ENDOMETRIAL SAMPLING, POLYPECTOMY ([facility]) performed by Sabrina Swain MD [facility] MAIN OR ??? PRO INSERT INTRAUTERINE DEVICE N/A 03/03/2022 INSERTION OF IUD, VAGINAL APPROACH ([facility] 1[facility]) performed by Sabrina Swain MD at [facility] MAIN OR ??? PRO PELVIC EXAMINATION W ANESTH N/A 03/03/2022 PELVIC EXAM UNDER ANESTHESIA ([facility] 1[facility]) performed by Sabrina Swain MD at [facility] MAIN OR Allergies: Allergies Allergen [...] ??? sodium chloride 0.9% 100 mL/hr (10/13/22 1288) Family and Social History: Family History Problem Relation Age of Onset ??? Uterine Cancer Neg Hx ??? Ovarian Cancer Neg Hx ??? Breast Cancer Neg Hx Only family hx of heart disease is an aunt that had an MO at the age of 78. Social History [...] Hobbies? Not really right now. Came to [place] from [place] to work at [employer] - took one year to find housing. [...] Surgical Unit Level 3 Wing D at [facility] Visit (TeleHealth) from 05/29/2022 in Weight and Wellness at [facility] Weight 185.1 kg (408 lb) 1 10/13/2022 [...] 79), PTSD, schizoaffective disorder who presented to [facility] with hemorrhagic shock and was subsequently found [...] page if further consultation required. Dmitriy Miller Operations Support Specialist [phone] Associated attestation - Narendra Wolfe MD [...] Attending: All Staff: Staff Role Jhon Syed Microfilm Technician Pradip Avila MD Attending Neftali Morrison MD [...] To PACU for recovery, then admission to SERVICE LINE BUS CLEANER service. Post radial access orders per protocol. [...] can, buy fresh vegetables and fruit from Jingit-sent message with resources -Choose whole grain options [...] Note: Practice STOP and Urge Surfing. Health Physician Practice Consultant will send hand-outs. Movement Lifestyle On track( 023 1:14 PM EDT) Riddhi Buchanan RD Note: Continue to walk stairs and walks when can. Will continue using stairs as it's colder. Look into finding weights free online or at [employer] stores. Could use water-filled milk jugs as [...] POCT GLUCOSE Routine 10/14/2022 12:40 PM EDT TROPONIN - SERIES STAT 10/14/2022 8:2 1 AM EDT HEMOGRAM Routine 10/14/2022 8:21 AM EDT POCT GLUCOSE Routine 10/14/2022 7:26 AM EDT POCT GLUCOSE Routine 10/14/2022 5:03 AM EDT TROPONIN - SERIES STAT 10/14/2022 2:2 5 AM EDT HEMOGRAM Routine 10/14/2022 2:25 AM EDT DIFFERENTIAL, AUTOMATED Routine 10/15/19 2:25 AM EDT CBC (WITH DIFF) Routine 10/14/2022 2:25 AM EDT COMPREHENSIVE METABOLIC PANEL Routine 10/14/2022 2:25 AM EDT POCT GLUCOSE Routine 10/14/2022 2:24 AM EDT POCT GLUCOSE Routine 10/14/2022 12:00 AM EDT TROPONIN - SERIES STAT 10/13/2022 10: 45 PM EDT HEMOGRAM STAT 10/13/2022 10:45 PM EDT DIFFERENTIAL, AUTOMATED STAT 10/14/19 10:45 PM EDT CBC (WITH DIFF) STAT 10/13/2022 10:45 PM EDT COMPREHENSIVE METABOLIC PANEL STAT 10/13/2022 10:45 PM EDT POCT GLUCOSE Routine 10/13/2022 9:31 PM EDT IR ARTERIAL INTERVENTION STAT 10/13/2022 9:23 PM EDT RADIOFREQUENCY ABLATION 10/14/19 7:18 PM EDT . POCT GLUCOSE Routine 10/13/2022 6:35 PM EDT TROPONIN - SERIES STAT 10/13/2022 6:2 0 PM EDT EKG 12-LEAD STAT 10/13/2022 6:19 PM EDT TSH CASCADE Routine 10/13/2022 4:50 PM EDT HEMOGRAM Routine 10/13/2022 4:50 PM EDT DIFFERENTIAL, AUTOMATED Routine 10/14/19 23 4:50 PM EDT D-DIMER, QUANTITATIVE Routine 10/13/2022 [...] 4:50 PM EDT BETA HCG, QUANTITATIVE Routine 3 4:50 PM EDT PRO-BRAIN NATRIURETIC PEPTIDE Routine 10/13/2022 4:50 PM EDT LIPASE Routine 10/13/2022 4:50 PM EDT HEPATIC FUNCTION PANEL Routine 4:50 PM EDT BASIC METABOLIC PANEL Routine 10/13/2022 4:50 PM EDT PREPARE RBC [...] * POCT Glucose (10/15/2022 11:40 AM EDT) Glucose, POC 149 65 - 199 mg/dL [facility] Comment: Supplemental ranges: <140 mg/dL before meals <180 mg/dL all other times of the day Blood 10/15/2022 11:4 0 AM EDT 10/15/2022 11:40 AM EDT Mau Marks MD POINT OF CARE TEST O JET Performing Organization Address [facility]/ZIP Co de Phone Number [facility] [place] [address] * POCT Glucose (10/15/2022 7:51 AM EDT) Glucose, POC 131 65 - 199 mg/dL [facility] Comment: Supplemental ranges: <140 mg/dL before meals <180 mg/dL all other times of the day Blood 10/15/2022 7:51 AM EDT 10/15/2022 7:51 AM EDT Mau Marks MD POINT OF CARE TEST O RDERAEDWARD [facility] [place] [address] * POCT Glucose (10/15/2022 3:36 AM EDT) Glucose, POC 122 65 - 199 mg/dL [facility] Comment: Supplemental ranges: <140 mg/dL before meals <180 mg/dL all other times of the day Blood 10/15/2022 3:36 AM EDT 10/15/2022 3:36 AM EDT Mau Marks MD POINT OF CARE TEST O JET [facility] [place] [address] * POCT Glucose (10/14/2022 11:09 PM EDT) Glucose, POC 135 65 - 199 mg/dL [facility] Comment: Supplemental ranges: <140 mg/dL before meals <180 mg/dL all other times of the day Blood 10/14/2022 11:0 9 PM EDT 10/14/2022 11:09 PM EDT Mau Marks MD POINT OF CARE TEST O JET Performing Organization Address [facility] Center/[facility] Co de Phone Number [facility] [place] [address] * POCT Glucose (10/14/2022 7:20 PM EDT) Glucose, POC 146 65 - 199 mg/dL [facility] Comment: Supplemental ranges: <140 mg/dL before meals <180 mg/dL all other times of the day Blood 10/14/2022 7:20 PM EDT 10/14/2022 7:20 PM EDT Mau Marks MD POINT OF CARE TEST O JET Performing Organization Address City/[facility] Co de Phone Number [facility] [place] [address] * POCT Glucose (10/14/2022 4:45 PM EDT) Glucose, POC 165 65 - 199 mg/dL [facility] Comment: Supplemental ranges: <140 mg/dL before meals <180 mg/dL all other times of the day Blood 10/14/2022 4:45 PM EDT 10/14/2022 4:45 PM EDT Mau Marks MD POINT OF CARE TEST O RDERABLES [facility] [place] [address] * ECHO COMPLETE W CONTRAST (10/14/2022 3:07 PM EDT) Anatomical Region Laterality Modality Cardiac Other 10/14/2022 2:18 PM EDT Narrative 10/14/2022 3:29 PM EDT ? Echocardiogram Report Name: ZENIA WORLEY ?Study Date: 10/14/2022 02:18 PMBP: 129/83 mmHg ? Patient Location: [id number] : 1990 ? Height: 155 cm ? Account: [id number] Age: 32 yrs ? Weight: 185 kg Gender: Female ?BSA: 2.6 m2 Ordering Physician: MAU MARKS Referring Physician: USAMA FANG Performed By: Villa Berg RDCS Reason For Study: Non-ST elevation myocardial infarction (NSTEMI) Interpreting Fellow: Renaldo Mayfield. Exam Location: [facility]. Interpretation Summary - The left ventricle is [...] is no prior study for comparison. Procedure Complete-54413. Image enhancement Optison was used for left [...] Date: 302:18 PMBP: 129/83 mmHg Patient Location: [address] : 1990 Height: 155 cm Account: [id number] Age: 32 yrs Weight: 185 kg Gender: Female BSA: 2.6 m2 Ordering Physician: MAU MARKS Referring Physician: USAMA FANG Performed By: Villa Berg RDCS Reason For Study: Non-ST elevation myocardial infarction (NSTEMI) Interpreting Fellow: Renaldo Mayfield. Exam Location: [facility]. Interpretation Summary - The left ventricle is [...] is no prior study for comparison. Procedure Complete-[id number]. Image enhancement Optison was used for left [...] * POCT Glucose (10/14/2022 12:40 PM EDT) Pathologist [facility] Glucose, POC 153 65 - 199 mg/dL [facility] Comment: Supplemental ranges: <140 mg/dL before meals <180 mg/dL all other times of the day Blood 10/14/2022 12:4 0 PM EDT 10/14/2022 12:40 PM EDT Mau Marks MD POINT OF CARE TEST O RDERABLES Performing Organization Address City/State/[facility] Co de Phone Number [facility] [place] [address] * (ABNORMAL) Hemogram (10/14/2022 8:21 AM EDT) White Blood Cell 11.8(H) 4.0 - 9.5 x10(3)/mc L [facility] Red Blood Cell 3.40(L) 4.00 - 5.21 x10(6)/mc L [facility] Hemoglobin 9.5(L) 11.7 - 15.5 g/dL [facility] Hematocrit 28.5(L) 35.7 - 45.8 % [facility] Mean Cell Volume 83.8 82.6 - 94.4 fL [facility] Mean Cell Hemoglobin 27.9 27.1 - 32.0 pg [facility] Mean Cell Hemoglobin Concentration 33.3 31.7 - 35.0 g/dL [facility] Platelet 278 145 - 357 x10(3)/mc L [facility] RDW Standard Deviation 45.3 37.0 - 46.0 fL [facility] RDW coefficient of variation 14.9(H) 11.5 - 14.1 % [facility] Mean Platelet Volume 11.0 7.6 - 12.9 fL [facility] NRBC% auto 0.0 % [facility] NRBC Absolute 0.000 0.000 - 0.000 x10(3)/mc L [facility] Blood 10/14/2022 8:21 AM EDT 10/14/2022 8:50 AM EDT Narrative Resulting Agency Comment Spec In Lab Mau Marks MD HEMATOLOGY ORDERABLE S Performing Organization Address City/State/[facility] Co de Phone Number [facility] [place] [address] * (ABNORMAL) Troponin (10/14/2022 8:21 AM EDT) Troponin-T, High Sensitivity 18(H) <=14 ng/L [facility] Comment: This patient's troponin T [...] troponin value can be found in the [facility] Test Catalog Troponin - [facility] Test Catalog Reference: Fourth [place] Definition of Myocardial Infarction. Journal of the [place] College [employer] 2018;72:6670-6622 Blood 10/14/2022 8:21 AM EDT 10/14/2022 8:50 AM EDT Narrative Resulting Agency Comment Spec In Lab Mau Marks MD CHEMISTRY ORDERABLES [facility] [place] [address] * POCT Glucose (10/14/2022 7:26 AM EDT) Glucose, POC 127 65 - 199 mg/dL [facility] Comment: Supplemental ranges: <140 mg/dL before meals <180 mg/dL all other times of the day Blood 10/14/2022 7:26 AM EDT 10/14/2022 7:26 AM EDT Mau Marks MD POINT OF CARE TEST O RDERABLES Performing Organization Address [facility] Co de Phone Number [facility] [place] [address] * POCT Glucose (10/14/2022 5:03 AM EDT) Glucose, POC 118 65 - 199 mg/dL [facility] Comment: Supplemental ranges: <140 mg/dL before meals <180 mg/dL all other times of the day Blood 10/14/2022 5:03 AM EDT 10/14/2022 5:03 AM EDT Mau Marks MD POINT OF CARE TEST O RDERABLES Performing Organization Address [facility] Co de Phone Number [facility] [place] [address] * (ABNORMAL) Differential, Automated (10/14/2022 2:25 AM EDT) Neutrophil % 80.9 % [facility] Neutrophil Absolute 12.22(H) 1.70 - 6.10 x10(3)/mc L [facility] Lymph % 11.1 % [facility] Lymphocytes Abs 1.7 0.9 - 3.2 x10(3)/mc L [facility] Monocyte % 6.1 % [facility] Monocyte Abs 0.9 0.3 - 0.9 x10(3)/ L [facility] Eos % 0.5 % [facility] Eosinophils Abs 0.1 0.0 - 0.4 x10(3)/mc L [facility] Basophil % 0.3 % [facility] Baso Absolute 0.0 0.0 - 0.1 x10(3)/ L [facility] Immature Gran % 1.10 % [facility] Comment: Immature granulocytes(IG's)percentage and absolute count will include metamyelocytes, myelocytes, and promyelocytes. Blood smears from CBCs yielding IG's will be scanned manually for concordance. If this scan disagrees with the automated IG or if promyelocytes are noted, a manual differential will be performed. Immature Gran Absolute 0.16(H) 0.00 - 0.04 x10(3)/ L [facility] Blood 10/14/2022 2:25 AM EDT 10/14/2022 2:33 AM EDT Narrative Resulting Agency Comment Spec In Lab Sabrina Mayfield DO HEMATOLOGY ORDERABLE S [facility] [place] [address] * (ABNORMAL) Hemogram (10/14/2022 2:25 AM EDT) White Blood Cell 15.1(H) 4.0 - 9.5 x10(3)/ L [facility] Red Blood Cell 3.46(L) 4.00 - 5.21 x10(6)/mc L [facility] Hemoglobin 9.9(L) 11.7 - 15.5 g/dL [facility] Hematocrit 29.1(L) 35.7 - 45.8 % [facility] Mean Cell Volume 84.1 82.6 - 94.4 fL [facility] Mean Cell Hemoglobin 28.6 27.1 - 32.0 pg [facility] Mean Cell Hemoglobin Concentration 34.0 31.7 - 35.0 g/dL [facility] Platelet 288 145 - 357 x10(3)/mc L [facility] RDW Standard Deviation 45.2 37.0 - 46.0 fL [facility] RDW coefficient of variation 14.8(H) 11.5 - 14.1 % [facility] Mean Platelet Volume 11.1 7.6 - 12.9 fL [facility] NRBC% auto 0.1 % [facility] NRBC Absolute 0.020(H) 0.000 - 0.000 x10(3)/mc L [facility] Blood 10/14/2022 2:25 AM EDT 10/14/2022 2:33 AM EDT Narrative Resulting Agency Comment Spec In Lab Sabrina Mayfield DO HEMATOLOGY ORDERABLE S [facility] [place] [address] * (ABNORMAL) Comprehensive metabolic panel (non-fasting) (10/14/2022 2:25 AM EDT) Glucose 106 65 - 199 mg/dL [facility] Comment:Diabetes: >=200 mg/d L plus symptoms Blood Urea Nitrogen 18 8 - 18 mg/dL [facility] Creatinine 0.90 0.70 - 1.20 mg/dL [facility] Sodium 137 135 - 145 mmol/L [facility] Potassium 4.9 3.5 - 5.0 mmol/L [facility] Comment: Please note: ??Patients with WBC >100,000 may have falsely elevated Potassium levels. ??For accurate Potassium quantification in these patients send serum separator tube (gold top) for subsequent determinations. ??Contact the Clinical Chemistry Laboratory if there are any questions. Chloride 104 98 - 107 mmol/L [facility] Carbon Dioxide 22 22 - 31 mmol/L [facility] Anion Gap 11 5 - 15 mmol/L [facility] Calcium 8.2(L) 8.5 - 10.5 mg/dL [facility] Protein, Total 6.0(L) 6.1 - 8.0 g/dL [facility] Albumin 3.5 3.2 - 5.2 g/dL [facility] Aspartate Aminotransferase 24 0 - 30 unit/L [facility] Alanine Aminotransferase 41(H) 0 - 30 unit/L [facility] Alkaline Phosphatase 50 35 - 105 unit/L [facility] Bilirubin, Total 0.8 0.2 - 1.3 mg/dL [facility] Est Glomerular Filtration Rate 88 >=60 mL/min/1. 73 m?? [facility] Comment: This patient's estimated GFR [...] Marks MD CHEMISTRY ORDERABLES Performing Organization Address City/State/[facility] Co de Phone Number [facility] [place] [address] * (ABNORMAL) Troponin (10/14/2022 2:25 AM EDT) Troponin-T, High Sensitivity 22(H) <=14 ng/L [facility] Comment: This patient's troponin T [...] troponin value can be found in the [facility] Test Catalog Troponin - [facility] Test Catalog Reference: Fourth [place] Definition of Myocardial Infarction. Journal of the [place] College [employer] 2018;72:1848-7391 Blood 10/14/2022 2:25 AM EDT 10/14/2022 2:33 AM EDT Narrative Resulting Agency Comment Spec In Lab Estee Zeng MD CHEMISTRY ORDERABLES Performing Organization Address [facility]/ZIP Co de Phone Number [facility] [place] [address] * POCT Glucose (10/14/2022 2:24 AM EDT) Glucose, POC 105 65 - 199 mg/dL [facility] Comment: Supplemental ranges: <140 mg/dL before meals <180 mg/dL all other times of the day Blood 10/14/2022 2:24 AM EDT 10/14/2022 2:24 AM EDT Mau Marks MD POINT OF CARE TEST O RDERABLES Performing Organization Address City/[facility]/ZIP Co de Phone Number [facility] [place] [address] * POCT Glucose (10/14/2022 12:00 AM EDT) Glucose, POC 117 65 - 199 mg/dL [facility] Comment: Supplemental ranges: <140 mg/dL before meals <180 mg/dL all other times of the day Blood 10/14/2022 10/14/2022 12: 00 AM EDT Mau Marks MD POINT OF CARE TEST O RDERABLES Performing Organization Address City/[facility]/ZIP Co de Phone Number [facility] [place] [address] * (ABNORMAL) Troponin (10/13/2022 10:45 PM EDT) Pathologist [facility] Troponin-T, High Sensitivity 16(H) <=14 ng/L [facility] Comment: This patient's troponin T [...] troponin value can be found in the [facility] Test Catalog Troponin - [facility] Test Catalog Reference: Fourth [place] Definition of Myocardial Infarction. Journal of the [place] College [employer]iology 2018;72:0586-1087 Blood Venous Draw / Unknown 10/13/2022 10:45 PM EDT 10/13/2022 10:54 PM EDT Narrative Resulting Agency Comment Spec In Lab Estee Zeng MD CHEMISTRY ORDERABLES [facility] [place] [address] * (ABNORMAL) Differential, Automated (10/13/2022 10:45 PM EDT) Neutrophil % 80.7 % [facility] Neutrophil Absolute 12.46(H) 1.70 - 6.10 x10(3)/mc L [facility] Lymph % 11.3 % [facility] Lymphocytes Abs 1.7 0.9 - 3.2 x10(3)/ L [facility] Monocyte % 5.7 % [facility] Monocyte Abs 0.9 0.3 - 0.9 x10(3)/[facility] Eos % 1.0 % [facility] Eosinophils Abs 0.2 0.0 - 0.4 x10(3)/[facility] Basophil % 0.3 % [facility] Baso Absolute 0.0 0.0 - 0.1 x10(3)/[facility] Immature Gran % 1.00 % [facility] Comment: Immature granulocytes(IG's)percentage and absolute count will include metamyelocytes, myelocytes, and promyelocytes. Blood smears from CBCs yielding IG's will be scanned manually for concordance. If this scan disagrees with the automated IG or if promyelocytes are noted, a manual differential will be performed. Immature Gran Absolute 0.16(H) 0.00 - 0.04 x10(3)/ L [facility] Blood 10/13/2022 10:4 5 PM EDT 10/13/2022 10:54 PM EDT Narrative Resulting Agency Comment Spec In Lab Susan Tee MD HEMATOLOGY ORDERABLE S Performing Organization Address City/State/[facility] Co de Phone Number [facility] [place] [address] * (ABNORMAL) Hemogram (10/13/2022 10:45 PM EDT) White Blood Cell 15.4(H) 4.0 - 9.5 x10(3)/[facility] Red Blood Cell 3.31(L) 4.00 - 5.21 x10(6)/[facility] Hemoglobin 9.2(L) 11.7 - 15.5 g/dL [facility] Hematocrit 27.8(L) 35.7 - 45.8 % [facility] Mean Cell Volume 84.0 82.6 - 94.4 fL [facility] Mean Cell Hemoglobin 27.8 27.1 - 32.0 pg [facility] Mean Cell Hemoglobin Concentration 33.1 31.7 - 35.0 g/dL [facility] Platelet 272 145 - 357 x10(3)/mc L [facility] RDW Standard Deviation 44.8 37.0 - 46.0 fL [facility] RDW coefficient of variation 14.7(H) 11.5 - 14.1 % [facility] Mean Platelet Volume 10.6 7.6 - 12.9 fL [facility] NRBC% auto 0.0 % [facility] NRBC Absolute 0.000 0.000 - 0.000 x10(3)/mc L [facility] Blood 10/13/2022 10:4 5 PM EDT 10/13/2022 10:54 PM EDT Narrative Resulting Agency Comment Spec In Lab Susan Tee MD HEMATOLOGY ORDERABLE S Performing Organization Address City/State/[facility] Co de Phone Number [facility] [place] [address] * (ABNORMAL) Comprehensive metabolic panel (non-fasting) (10/13/2022 10:45 PM EDT) Glucose 121 65 - 199 mg/dL [facility] Comment:Diabetes: >=200 mg/d L plus symptoms Blood Urea Nitrogen 18 8 - 18 mg/dL [facility] Creatinine 0.95 0.70 - 1.20 mg/dL [facility] Sodium 136 135 - 145 mmol/L [facility] Potassium 4.5 3.5 - 5.0 mmol/L [facility] Comment: Please note: ??Patients with WBC >100,000 may have falsely elevated Potassium levels. ??For accurate Potassium quantification in these patients send serum separator tube (gold top) for subsequent determinations. ??Contact the Clinical Chemistry Laboratory if there are any questions. Chloride 104 98 - 107 mmol/L [facility] Carbon Dioxide 22 22 - 31 mmol/L [facility] Anion Gap 10 5 - 15 mmol/L [facility] Calcium 7.9(L) 8.5 - 10.5 mg/dL [facility] Protein, Total 5.5(L) 6.1 - 8.0 g/dL [facility] Albumin 3.2 3.2 - 5.2 g/dL [facility] Aspartate Aminotransferase 21 0 - 30 unit/L [facility] Alanine Aminotransferase 37(H) 0 - 30 unit/L [facility] Alkaline Phosphatase 46 35 - 105 unit/L [facility] Bilirubin, Total 0.8 0.2 - 1.3 mg/dL [facility] Est Glomerular Filtration Rate 83 >=60 mL/min/1. 73 m?? [facility] Comment: This patient's estimated GFR [...] Marks MD CHEMISTRY ORDERABLES Performing Organization Address [facility]/ZIP Co de Phone Number [facility] [place] [address] * POCT Glucose (10/13/2022 9:31 PM EDT) Glucose, POC 129 65 - 199 mg/dL [facility] Comment: Supplemental ranges: <140 mg/dL before meals <180 mg/dL all other times of the day Blood 10/13/2022 9:31 PM EDT 10/13/2022 9:31 PM EDT Mau Marks MD POINT OF CARE TEST O RDERABLES Performing Organization Address City/[facility]/ZIP Co de Phone Number [facility] [place] [address] * IR Arterial Intervention (10/13/2022 9:23 PM [...] for an angled Glidewire and the 5 [place] catheter was advanced into the origin of the left uterine artery. ?? Embolization was performed with a Gelfoam slurry to 5 beats of stasis, confirmed with contrast injection. The 5 [place] catheter was then withdrawn and used to [...] * POCT Glucose (10/13/2022 6:35 PM EDT) [facility] Glucose, POC 79 65 - 199 mg/dL [facility] Comment: Supplemental ranges: <140 mg/dL before meals <180 mg/dL all other times of the day Blood 10/13/2022 6:35 PM EDT 10/13/2022 6:35 PM EDT Mau Marks MD POINT OF CARE TEST O JET [facility] [place] [address] * (ABNORMAL) Troponin (10/13/2022 6:20 PM EDT) [facility] Troponin-T, High Sensitivity 16(H) <=14 ng/L [facility] Comment: This patient's troponin T [...] troponin value can be found in the [facility] Test Catalog Troponin - [facility] Test Catalog Reference: Fourth [place] Definition of Myocardial Infarction. Journal of the [place] [employer] 2018;72:4500-4873 Blood 10/13/2022 6:20 PM EDT 10/13/2022 6:34 PM EDT Narrative Resulting Agency Comment Spec In Lab Estee Zeng MD [place] [address] * EKG 12 Lead (10/13/2022 6:19 PM EDT) Ventricular rate 89 BPM MUSE SYSTEM Atrial Rate 89 BPM MUSE SYSTEM P-R Interval 174 ms MUSE SYSTEM QRS Duration 70 ms MUSE SYSTEM Q-T Interval 334 ms MUSE SYSTEM QTC Calculated (Bezet) 406 ms MUSE SYSTEM Calculated P [place] 66 degrees MUSE SYSTEM Calculated R [place] 34 degrees MUSE SYSTEM Calculated T [place] 31 degrees MUSE SYSTEM INTERPRETATION Normal sinus rhythm Low voltage QRS Cannot rule out Anterior infarct ??(due to low voltage) Abnormal ECG No previous ECGs available Confirmed by MD Wright Danette ([id number]) on 10/14/2022 4:31:06 PM MUSE SYSTEM 10/13/2022 6:19 PM EDT 10/14/2022 4:31 PM EDT Estee Zeng MD ECG ORDERABLES MUSE SYSTEM * D-Dimer, Quantitative (10/13/2022 4:50 PM EDT) D-Dimer 411 0 - 500 FEU ng/ml [facility] Comment: The D-Dimer assay is used [...] MD HEMATOLOGY ORDERABLE S Performing Organization Address [facility] Co de Phone Number [facility] [place] [address] * Thrombin time (10/13/2022 4:50 PM EDT) Pathologist [facility] Thrombin Time 16 10 - 17 sec [facility] Comment: Specimen drawn more than one [...] MD HEMATOLOGY ORDERABLE S Performing Organization Address City/[facility] Co de Phone Number [facility] [place] [address] * Fibrinogen (10/13/2022 4:50 PM EDT) Fibrinogen 293 200 - 393 mg/dL [facility] Comment: A fibrinogen level >100 mg/dL is adequate for hemostasis in most patients without underlying bleeding disorders. Blood No Charge / Unknown 10/13/2022 4:50 PM EDT 10/13/2022 5:26 PM EDT Narrative Resulting Agency Comment Spec In Lab Mau Marks MD HEMATOLOGY ORDERABLE S Performing Organization Address [facility] Co de Phone Number [facility] [place] [address] * (ABNORMAL) APTT (10/13/2022 4:50 PM EDT) Partial Thromboplastin Time 24(L) 25 - 37 sec [facility] Comment: The PTT is NOT appropriate for heparin monitoring. Use the Anti-Xa level for heparin monitoring (HEP UFH) or LMWH monitoring (HEP LMW). A PTT less than 37 seconds generally indicates adequate hemostasis. Blood No Charge / Unknown 10/13/2022 4:50 PM EDT 10/13/2022 5:26 PM EDT Narrative Resulting Agency Comment Spec In Lab Mau Marks MD HEMATOLOGY ORDERABLE S Performing Organization Address City/[facility] Co de Phone Number [facility] [place] [address] * Prothrombin Time (10/13/2022 4:50 PM EDT) Prothrombin Time 10.9 9.4 - 12.5 sec [facility] International Normalization Ratio 1.0 [facility] Comment: An INR <2.0 indicates [...] MD HEMATOLOGY ORDERABLE S Performing Organization Address City/[facility]/ZIP Co de Phone Number [facility] [place] [address] * TSH [place] (10/13/2022 4:50 PM EDT) Thyroid Stimulating Hormone 1.42 0.27 - 4.20 mcIU/mL [facility] Comment: Reference Interval (mcIU/mL): Females: ??First Trimester: 0.23-3.88 ??Second Trimester: 0.22-3.90 ??Third Trimester: 0.44-4.66 Blood No Charge / Unknown 10/13/2022 4:50 PM EDT 10/13/2022 5:25 PM EDT Narrative Resulting Agency Comment Spec In Lab Estee Zeng MD CHEMISTRY ORDERABLES Performing Organization Address City/[facility]/ZIP Co de Phone Number [facility] [place] [address] * pro-Brain Natriuretic Peptide (10/13/2022 4:50 PM EDT) NT-proBNP <36 <=124 pg/mL [facility] Blood No Charge / Unknown 10/13/2022 4:50 PM EDT 10/13/2022 5:25 PM EDT Narrative Resulting Agency Comment Spec In Lab Estee Zeng MD CHEMISTRY ORDERABLES Performing Organization Address City/[facility]/ZIP Co de Phone Number [facility] [place] [address] * Lipase (10/13/2022 4:50 PM EDT) Lipase 50 0 - 60 unit/L [facility] Blood No Charge / Unknown 10/13/2022 4:50 PM EDT 10/13/2022 5:25 PM EDT Narrative Resulting Agency Comment Spec In Lab Estee Zeng MD CHEMISTRY ORDERABLES [facility] [place] [address] * (ABNORMAL) Hepatic Function Panel (10/13/2022 4:50 PM EDT) [facility] Protein, Total 5.9(L) 6.1 - 8.0 g/dL [facility] Albumin 3.4 3.2 - 5.2 g/dL [facility] Aspartate Aminotransferase 22 0 - 30 unit/L [facility] Alanine Aminotransferase 38(H) 0 - 30 unit/L [facility] Alkaline Phosphatase 51 35 - 105 unit/L [facility] Bilirubin, Total 0.3 0.2 - 1.3 mg/dL [facility] Bilirubin, Direct 0.1 0.0 - 0.3 mg/dL [facility] Blood No Charge / Unknown 10/13/2022 4:50 PM EDT 10/13/2022 5:25 PM EDT Narrative Resulting Agency Comment Spec In Lab Estee Zeng MD CHEMISTRY ORDERABLES [facility] [place] [address] * (ABNORMAL) Differential, Automated (10/13/2022 4:50 PM EDT) [facility] Neutrophil % 62.1 % [facility] Neutrophil Absolute 6.11(H) 1.70 - 6.10 x10(3)/mc L [facility] Lymph % 25.4 % [facility] Lymphocytes Abs 2.5 0.9 - 3.2 x10(3)/mc L [facility] Monocyte % 8.1 % [facility] Monocyte Abs 0.8 0.3 - 0.9 x10(3)/mc L [facility] Eos % 3.1 % [facility] Eosinophils Abs 0.3 0.0 - 0.4 x10(3)/mc L [facility] Basophil % 0.3 % [facility] Baso Absolute 0.0 0.0 - 0.1 x10(3)/mc L [facility] Immature Gran % 1.00 % [facility] Comment: Immature granulocytes(IG's)percentage and absolute count will include metamyelocytes, myelocytes, and promyelocytes. Blood smears from CBCs yielding IG's will be scanned manually for concordance. If this scan disagrees with the automated IG or if promyelocytes are noted, a manual differential will be performed. Immature Gran Absolute 0.10(H) 0.00 - 0.04 x10(3)/ L [facility] Blood No Charge / Unknown 10/13/2022 4:50 PM EDT 10/13/2022 5:26 PM EDT Narrative Resulting Agency Comment Spec In Lab Estee Zeng MD HEMATOLOGY ORDERABLE S Performing Organization Address City/State/[facility] Co de Phone Number [facility] [place] [address] * (ABNORMAL) Hemogram (10/13/2022 4:50 PM EDT) White Blood Cell 9.8(H) 4.0 - 9.5 x10(3)/ L [facility] Red Blood Cell 3.01(L) 4.00 - 5.21 x10(6)/[facility] Hemoglobin 8.3(L) 11.7 - 15.5 g/dL [facility] Hematocrit 25.7(L) 35.7 - 45.8 % [facility] Mean Cell Volume 85.4 82.6 - 94.4 fL [facility] Mean Cell Hemoglobin 27.6 27.1 - 32.0 pg [facility] Mean Cell Hemoglobin Concentration 32.3 31.7 - 35.0 g/dL [facility] Platelet 314 145 - 357 x10(3)/ L [facility] RDW Standard Deviation 46.4(H) 37.0 - 46.0 fL [facility] RDW coefficient of variation 14.9(H) 11.5 - 14.1 % [facility] Mean Platelet Volume 11.1 7.6 - 12.9 fL [facility] NRBC% auto 0.0 % [facility] NRBC Absolute 0.000 0.000 - 0.000 x10(3)/mc L [facility] Blood No Charge / Unknown 10/13/2022 4:50 PM EDT 10/13/2022 5:26 PM EDT Narrative Resulting Agency Comment Spec In Lab Estee Zeng MD HEMATOLOGY ORDERABLE S [facility] [place] [address] * Beta HCG, quantitative (10/13/2022 4:50 PM EDT) Beta Human Chorionic Gonadotropin, Quantitative <1 mlU/ML [facility] Comment: REFERENCE RANGES NON- FEMALE: ??Less [...] - 56,451 ?17 weeks ? 8,175 - 85,868 ?18 weeks ? 8,393 - 92,176 This result was generated using a Maxim Tim immunoassay. ??Results obtained from other methods or manufacturers cannot be used interchangeably with this method. Blood No Charge / Unknown 10/13/2022 4:50 PM EDT 10/13/2022 5:25 PM EDT Narrative Resulting Agency Comment Spec In Lab Estee Zeng MD CHEMISTRY ORDERABLES [facility] [place] [address] * (ABNORMAL) Basic Metabolic Panel (non-fasting) (10/13/2022 4:50 PM EDT) Glucose 73 65 - 199 mg/dL [facility] Comment:Diabetes: >=200 mg/d L plus symptoms Blood Urea Nitrogen 19(H) 8 - 18 mg/dL [facility] Creatinine 1.09 0.70 - 1.20 mg/dL [facility] Sodium 137 135 - 145 mmol/L [facility] Potassium 4.7 3.5 - 5.0 mmol/L [facility] Comment: Please note: ??Patients with WBC >100,000 may have falsely elevated Potassium levels. ??For accurate Potassium quantification in these patients send serum separator tube (gold top) for subsequent determinations. ??Contact the Clinical Chemistry Laboratory if there are any questions. Chloride 104 98 - 107 mmol/L [facility] Carbon Dioxide 24 22 - 31 mmol/L [facility] Anion Gap 9 5 - 15 mmol/L [facility] Calcium 8.5 8.5 - 10.5 mg/dL [facility] Est Glomerular Filtration Rate 70 >=60 mL/min/1. 73 m?? [facility] Comment: This patient's estimated GFR [...] In Lab Estee Zeng MD CHEMISTRY ORDERABLES [facility] [place] [address] * Lavender Tube HOLD (10/13/2022 4:50 PM EDT) Lavender Hold Sample in lab. [facility] Blood No Charge / Unknown 10/13/2022 4:50 PM EDT 10/13/2022 5:26 PM EDT Jase Lopez MD HEMATOLOGY ORDERABLE S [facility] [place] [address] * Blue Tube HOLD (10/13/2022 4:50 PM EDT) Blue Hold Sample in lab. [facility] Blood No Charge / Unknown 10/13/2022 4:50 PM EDT 10/13/2022 5:26 PM EDT Jase Lopez MD HEMATOLOGY ORDERABLE S Performing Organization Address City/[facility]/ZIP Co de Phone Number [facility] [place] [address] * Green Tube HOLD (10/13/2022 4:50 PM EDT) Green Hold Sample in lab. [facility] Blood No Charge / Unknown 10/13/2022 4:50 PM EDT 10/13/2022 5:25 PM EDT Jase Lopez MD CHEMISTRY ORDERABLES Performing Organization Address City/[facility]/ZIP Co de Phone Number [facility] [place] [address] * Gold Tube HOLD (10/13/2022 4:50 PM EDT) Gold Hold Sample in lab. [facility] Blood No Charge / Unknown 10/13/2022 4:50 PM EDT 10/13/2022 5:25 PM EDT Jase Lopez MD CHEMISTRY ORDERABLES [facility] [place] [address] * Prepare RBC (10/13/2022 4:45 PM EDT) Dispensed? Yes [facility] Blood 10/13/2022 4:45 PM EDT 10/13/2022 4:46 PM EDT Estee Zeng MD BLOOD BANK PRODUCT O RDERABLES Performing Organization Address City/[facility]/ZIP Co de Phone Number [facility] [place] [address] * Type and Screen Validity (10/13/2022 4:40 PM EDT) T&S only valid at [facility] Comment:This Type and Screen result is only valid at the [facility] Blood 10/13/2022 4:40 PM EDT 10/13/2022 5:23 PM EDT Narrative Resulting Agency Comment Spec In Lab Jase Lopez MD BLOOD BANK LAB ORDER SANDY Performing Organization Address City/[facility]/ZIP Co de Phone Number [facility] [place] [address] * ABORH Recheck Status (10/13/2022 4:40 PM EDT) ABORH Recheck Order Order Placed [facility] ABORH Type Recheck Complete [facility] Blood 10/13/2022 4:40 PM EDT 10/13/2022 5:23 PM EDT Narrative Resulting Agency Comment Spec In Lab Jase Lopez MD BLOOD BANK LAB ORDER SANDY Performing Organization Address City/[facility]/ZIP Co de Phone Number [facility] [place] [address] * Antibody screen (10/13/2022 4:40 PM EDT) Ab Screen Interp Negative [facility] Expires at 2359 on: 10/16/2022 [facility] Blood 10/13/2022 4:40 PM EDT 10/13/2022 5:23 PM EDT Narrative Resulting Agency Comment Spec In Lab Jase Lopez MD BLOOD BANK LAB ORDER SANDY [facility] [place] [address] * ABO/Rh Typing (10/13/2022 4:40 PM EDT) ABORH Type O Pos [facility] Blood 10/13/2022 4:40 PM EDT 10/13/2022 5:23 PM EDT Narrative Resulting Agency Comment Spec In Lab Jase Lopez MD BLOOD BANK LAB ORDER SANDY Performing Organization Address [facility]/ZIP Co de Phone Number [facility] [place] [address] * POCT Glucose (10/13/2022 4:38 PM EDT) Glucose, POC 73 65 - 199 mg/dL [facility] Comment: Supplemental ranges: <140 mg/dL before meals <180 mg/dL all other times of the day Blood 10/13/2022 4:38 PM EDT 10/13/2022 4:38 PM EDT Emergency Dept POINT OF CARE TEST ORDERABLES Performing Organization Address City/[facility] Co de Phone Number [facility] [place] [address] * SCAN DOC: LAB (10/13/2022 12:00 AM [...] home? Yes 08 (Given - Provider: Kaya Godfrey, TOM) estrogens (conjugated) (Premarin) (5 mg/mL) injection 25 mg (COMPLETED) 25 mg, Intravenous, ONCE, 1 dose, On Wed10/13/22 at 1748, STAT 1811 (Given - Provider: Estephania Baird, TOM) furosemide (Lasix) tablet 40 mg 40 mg, Oral, DAILY, First dose on Wed10/15/22 at 0900, Until Discontinued, Routine 08 (Given - Provider: Kaya Godfrey RN) gabapentin (Neurontin) capsule 300 mg 300 mg, Oral, 3 TIMES DAILY, First dose on Wed10/15/22 at 0900, Until Discontinued, Routine 0822 (Given - Provider: Kaya Godfrey RN)1538 [...] on Wed10/13/22 at 2100, Until Discontinued, Routine 2129 (JUL Hold - Provider: Admin Adt - Reason: Transfer to a Procedural area)2331 (JUL Unhold - Provider: Admin Adt) 10 (Not Given - Provider: Felipa Alamo RN - Reason: Patient/family refused)08 (Given - Provider: Prabha De Souza, TOM)2008 (Not Given - Provider: Felipa Alamo RN - Reason: Patient/family refused) 820 (Given - Provider: Kaya Godfrey, TOM) sodium chloride 0.9 % (flush) (BD PosiFlush Normal Saline 0.9) flush 5 mL 5 mL, Intravenous, 2 TIMES DAILY, First dose on Wed10/14/22 at 0030, Until Discontinued, Recovery (Recovery-Hospital Unit), Routine 29 (Not Given - Provider: Felipa Alamo RN - Reason: See comment - Comment: infusing)09 (Given - Provider: Prabha De Souza, TOM)2004 (Given - Provider: Felipa Alamo RN) 08 (Given - Provider: Kaya Godfrey, TOM) traZODone (Desyrel) tablet 300 mg 300 mg, Oral, NIGHTLY, First dose on Wed10/14/22 at 2145, Until Discontinued, Routine 2118 (Given - Provider: Felipa Alamo RN) Continuous Medication Order 10/13/2022 10/14/2022 10/15/2022 dextrose 10% infusion (CANCELED) 50 mL/hr, Intravenous, CONTINUOUS, Starting on Wed10/13/22 at 1648, Until Wed10/14/22 at 0110 1652 (New Bag - Provider: Estephania Baird RN)1918 (Rate/Dose Change - Provider: Kyler Godfrey CRNA)2129 (JUL Hold - Provider: Admin Adt - Reason: Transfer to a Procedural area)233 (JUL Unhold - Provider: Admin Adt)235 (Stopped - Provider: Felipa Alamo RN - Comment: per provider only NS should be running) sodium chloride 0.9% infusion 100 mL/hr, Intravenous, CONTINUOUS, Starting on Wed10/13/22 at 2345, Until Wed10/15/22 at 1835 2356 (New Bag - Provider: [...] Routine 1507 (Given - Provider: Ryan De Souza, TOM) chlorproMAZINE (Thorazine) tablet 200 mg (CANCELED) 200 mg, Oral, 3 TIMES DAILY PRN, Starting on Wed10/14/22 at 2044, Until Wed10/15/22 at 0653, Anxiety, insomnia, Routine 2119 (Given - Provider: Marilee Alamo, TOM) chlorproMAZINE [...] documented in this encounter Care Teams Sales Account Associate Relationship Specialty Start Date End Date Lia Pearson APRN [address] [place] [address] PCP - General Geriatric Medicine 02/09/22 documented as of this encounter
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
--- OUTSIDE RECORDS SUMMARY | 2024-02-13 18:03 | XMS_ITS | Encounter Summary ---
[place] [address] Care Team Providers Care Student Outreach Coordinator Name Role Phone Lia Pearson APRN Primary Care Provider [phone] Encounter Details Date Type Department Care Team [...] Note: Practice STOP and Urge Surfing. Health Surface Plate Finisher will send hand-outs. Movement Lifestyle On track( 023 1:14 PM EDT) Riddhi Buchanan RD Note: Continue to walk stairs and walks when can. Will continue using stairs as it's colder. Look into finding weights free online or at [employer] stores. Could use water-filled milk jugs as weights-a full gallon jug would be 8 lbs. Will look into nearby rec center 04/16/22 NATHALIA documented as of this encounter Visit Diagnoses Not on filedocumented in this encounter Care Teams Student Outreach Coordinator Relationship Specialty Start Date End Date Lia Pearson APRN [address] [place] [address] PCP - General Geriatric Medicine 02/09/22 documented as of this encounter
--- OUTSIDE RECORDS SUMMARY | 2024-02-13 18:03 | XMS_ITS | Encounter Summary ---
Author [place] [address] Care Team Providers Care Facilities Engineering Manager Name Role Phone Lia Pearson APRN Primary Care Provider [phone] Encounter Details Date Type Department Care Team [...] Note: Practice STOP and Urge Surfing. Health Design Studio Consultant will send hand-outs. Movement Lifestyle On track( 023 1:14 PM EDT) Riddhi Buchanan RD Note: Continue to walk stairs and walks when can. Will continue using stairs as it's colder. Look into finding weights free online or at [employer] stores. Could use water-filled milk jugs as weights-a full gallon jug would be 8 lbs. Will look into nearby rec center 04/16/22 NATHALIA documented as of this encounter Visit Diagnoses Not on filedocumented in this encounter Care Teams Facilities Engineering Manager Relationship Specialty Start Date End Date Lia Pearson APRN [address] [place] [address] PCP - General Geriatric Medicine 02/09/22 documented as of this encounter
--- OUTSIDE RECORDS SUMMARY | 2024-02-13 18:03 | XMS_ITS | Encounter Summary ---
Author Organization [facility] [place] [address] Care Team Providers Care Truck Loader Overhead Crane Name Role Phone Lia Pearson APRN Primary Care Provider [phone] Encounter Details Date Type Department Care Team (Late st Contact Info) Description 12/09/2022 Telephone [place] [id number] Deneen Dalal, RN Social History Tobacco Use [...] said that it might. I will have medical secretary call for scheduling. Discussed that there [...] can, buy fresh vegetables and fruit from [employer] market-sent message with resources -Choose whole grain [...] Note: Practice STOP and Urge Surfing. Health Continuous Process Rotary Drum Tanner will send hand-outs. Movement Lifestyle On track( 023 1:14 PM EDT) Riddhi Buchanan RD Note: Continue to walk stairs and walks when can. Will continue using stairs as it's colder. Look into finding weights free online or at [employer] stores. Could use water-filled milk jugs as weights-a full gallon jug would be 8 lbs. Will look into nearby rec center 04/16/22 NATHALIA documented as of this encounter Visit Diagnoses Not on filedocumented in this encounter Care Teams Truck Loader Overhead Crane Relationship Specialty Start Date End Date Lia Pearson APRN [address] [place] [address] PCP - General Geriatric Medicine 02/09/22 documented as of this encounter
--- OUTSIDE RECORDS SUMMARY | 2024-02-13 18:03 | XMS_ITS | Encounter Summary ---
Author Organization [facility] [address] Care Team Providers Care Commercial Collector Name Role Phone Lia Pearson APRN Primary Care Provider +1 [phone] Encounter Details Date Type Department Care Team (Late st Contact Info) Description 11/27/2022 Telephone [place] [address] Raisa Vallejo, PhD [facility] [address] [address] Social History Tobacco Use Types Packs/Day Years [...] can, buy fresh vegetables and fruit from [employer] market-sent message with resources -Choose whole grain [...] Note: Practice STOP and Urge Surfing. Health Cnc Mill Set Up Operator will send hand-outs. Movement Lifestyle On track( 023 1:14 PM EDT) Riddhi Buchanan, CORNELIO Note: Continue to walk stairs and walks when can. Will continue using stairs as it's colder. Look into finding weights free online or at [employer] stores. Could use water-filled milk jugs as weights-a full gallon jug would be 8 lbs. Will look into nearby [facility] center 04/16/22 NATHALIA documented as of this encounter Visit Diagnoses Not on filedocumented in this encounter Care Teams Commercial Collector Relationship Specialty Start Date End Date Lia Pearson APRN [address] [place] [address] PCP - General Geriatric Medicine 02/09/22 documented as of this encounter
--- OUTSIDE RECORDS SUMMARY | 2024-02-13 18:03 | XMS_ITS | Encounter Summary ---
Author Organization [facility] Address [facility] [place] [address] Care Team Providers Care Longwall Headgate Operator Name Role Phone Lia Pearson APRN Primary Care Provider [phone] [phone] Encounter Details Date Type Department Care Team (Late st Contact Info) Description 12/16/2022 2:45 PM EDT TH Visit (TeleHealth) [place] [address] Riddhi Wilson, CORNELIO [facility] [place] [address] Class 3 severe obesity with body mass [...] past visits. Please reach out with a [facility] message if you have any [...] into finding weights free online or at [a]list games stores. Could use water-filled milk jugs as weights-a full gallon jug would be 8 lbs. Will look into nearby [facility] center 04/16/22 NATHALIA Other (Enter personal goal) -Add peanut butter to oatmeal -Continue to add beans to meals as a source of protein and fiber -If can, buy fresh vegetables and fruit from [employer]-sent message with resources -Choose whole grain options if available -When having a snack, focus on protein Self-awareness, body cues Practice STOP and Urge Surfing. Health Renal Dialysis Rn will send hand-outs. documented in this encounter [...] she likes dragon fruit. Food Tracking: Using [employer] rebecca, tracking everything, water, exercise, macros. Stopped [...] into finding weights free online or at [a]list games stores. Could use water-filled milk jugs as weights-a full gallon jug would be 8 lbs. Will look into nearby [facility] center 04/16/22 NATHALIA Other (Enter personal goal) On track -Add peanut butter to oatmeal -Continue to add beans to meals as a source of protein and fiber -If can, buy fresh vegetables and fruit from [employer]-sent message with resources -Choose whole grain options if available -When having a snack, focus on protein Handouts provided today: Monitor/Evaluate: [x] Needs additional fuv scheduled with this creative services writer: No follow-ups on file. (OR) [] Currently scheduled for: [] 1st consecutive monthly nutrition visit [] 2nd consecutive monthly nutrition visit [] 3rd consecutive monthly nutrition visit (OR) [] Patient has met requirement of 3 consecutive monthly nutrition visits Above determined to the best ability of this creative services writer. Patient will contact bariatric surgery team [...] can, buy fresh vegetables and fruit from [employer]-sent message with resources -Choose whole grain options [...] Note: Practice STOP and Urge Surfing. Health Renal Dialysis Rn will send hand-outs. Movement Lifestyle On track( 023 1:14 PM EDT) Riddhi Buchanan RD Note: Continue to walk stairs and walks when can. Will continue using stairs as it's colder. Look into finding weights free online or at [a]list games stores. Could use water-filled milk jugs as weights-a full gallon jug would be 8 lbs. Will look into nearby rec center 04/16/22 NATHALIA documented as of this encounter Visit Diagnoses Diagnosis Class 3 severe obesity with body mass index (BMI) greater than or equal to 70 in adult, unspecified obesity type, unspecified whether serious comorbidity present documented in this encounter Care Teams Longwall Headgate Operator Relationship Specialty Start Date End Date Lia Pearson APRN [address] [place] [address] PCP - General Geriatric Medicine 02/09/22 documented as of this encounter
--- OUTSIDE RECORDS SUMMARY | 2024-02-13 18:04 | XMS_ITS | Encounter Summary ---
Author Organization [facility] [place] [address] Care Team Providers Care Stope Miner Name Role Phone Lia Pearson APRN Primary Care Provider [phone] [phone] Encounter Details Date Type Department Care Team (Late st Contact Info) Description 03/06/2022 Orders Only Obstetrics [place] [address] Sarahi Mercedes MD [facility] OBSTETRICS & [place] [address] Abnormal uterine bleeding (AUB) Social History Tobacco [...] 1:14 PM EDT) Riddhi Buchanan, CORNELIO Note: -Add peanut butter to oatmeal [...] Note: Practice STOP and Urge Surfing. Health Spindle Setter will send hand-outs. Movement Lifestyle On track( 023 1:14 PM EDT) Riddhi Buchanan RD Note: Continue to walk stairs and walks when can. Will continue using stairs as it's colder. Look into finding weights free online or at [employer] stores. Could use water-filled milk jugs as weights-a full gallon jug would be 8 lbs. Will look into nearby rec center 04/16/22 NATHALIA documented as of this encounter Visit Diagnoses Diagnosis Abnormal uterine bleeding (AUB) documented in this encounter Care Teams Stope Miner Relationship Specialty Start Date End Date Lia Pearson APRN [address] [place] [address] PCP - General Geriatric Medicine 02/09/22 documented as of this encounter
--- OUTSIDE RECORDS SUMMARY | 2024-02-13 18:04 | XMS_ITS | Encounter Summary ---
Author Organization [facility] Address [facility] [place] [address] Care Team Providers Care Post Doc Fellowship Name Role Phone Lia Pearson FORM TAMPING MACHINE OPERATOR Primary Care Provider Encounter Details Date Type Department Care Team (Latest Contact Info) Description 03/03/2022 7:12 AM EDT - 03/03/2022 11:59 PM EDT Hospital Encounter [place] [address] Sabrina Fisher MD [facility] DR OBSTETRICS [place] [address] Abnormal uterine bleeding; Morbid obesity with BMI [...] times daily. 10/15/2021 prazosin (Minipress) 5 mg CapsuleIndications:p ost traumatic stress disorder Take 10 mg by mouth nightly. Indications: posttraumatic stress syndrome 11/07/2021 glucose 4 gram Tablet, Chewable CHEW ONE TABLET BY MOUTH EVERY 10 MIN. NEEDED FOR HYPOGLYCEMIA UNTIL SYMPTOMS OF LOW BLOOD SUGAR ARE CONTROLLED 11/21/2021 BD AutoShield Duo Pen Needle 30 gauge x 07/30 Needle USE UP TO 5 PEN NEEDLES DAILY 10/31/2021 acetaminophen (Tylenol) 325 mg Tablet Take 2 [...] On track( 023 1:14 PM EDT) Riddhi Bucahnan RD Note: -Add peanut butter to oatmeal [...] Note: Practice STOP and Urge Surfing. Health Prosthetist will send hand-outs. Movement Lifestyle On track( 023 1:14 PM EDT) Riddhi Buchanan RD Note: Continue to walk stairs and walks when can. Will continue using stairs as it's colder. Look into finding weights free online or at [employer] stores. Could use water-filled milk jugs as [...] Deneen Ribera MD at 03/03/2022 9:30 AM Electronically signed by: Deneen Ribera MD, [facility] ([phone]), at 03/03/2022 9:30 AM Thank you for letting us participate in the care of this patient. If you are a health care provider and have any questions regarding this report, please contact the number above. For patients who have questions, please contact the health director career services that requested your imaging first. ? Deneen Ribera, Staff Physician Electronically Signed Final Report ?? 03/03/2022 09:37 am Narrative 03/03/2022 9:38 AM EDT Gynecological Report ?(Signed Final 03/03/2022 09:37 am) PATIENT INFO: ID #: ? [id number] ?: ??[id number] (31 yrs)(F) Name: ? MIGUEL WORLEY ?Visit Date: 03/03/2022 07:14 am PERFORMED BY: Performed By: ? Stefany Thomason RDMS Attending: ?Mounika HERNANDEZ, Deneen Arias Resident: ? Drew Barry DO Referred By: ?SABRINA FISHER Location: ? [place] SERVICE(S) PROVIDED: UTV - Transvaginal - [id number] ?[id number] UPELIM - Pelvis Limited - [id number] ? [id number] INDICATIONS: daily vaginal bleeding x >10 years [...] 03/03/2022 09:37 am) PATIENT INFO: ID #: [id number] : [id number] (31 yrs)(F) Name: MIGUEL WORLEY Visit Date: 03/03/2022 07:14 am PERFORMED BY: Performed By: Stefany Thomason RDMS Attending: Deneen Ribera MD Resident: Drew Barry DO Referred By: SABRINA FISHER Location: [place] SERVICE(S) PROVIDED: UTV - Transvaginal - [id number] UPELIM - Pelvis Limited - [id number] INDICATIONS: daily vaginal bleeding x >10 years [...] who have questions, please contact the health director career services that requested your imaging first. Deneen Ribera, Staff Physician Electronically Signed Final Report 03/03/2022 09:37 am Sabrina Fisher MD IMG PELVIC ORDERA BLES documented in this encounter Visit Diagnoses Diagnosis Abnormal uterine bleeding Unspecified disorder of menstruation and other abnormal bleeding from female genital tract Morbid obesity with BMI of 70 and over, adult Morbid obesity documented in this encounter Care Teams Post Doc Fellowship Relationship Specialty Start Date End Date Lia Pearson APRN [address] [facility] [place] [address] PCP - General Geriatric Medicine 02/09/22 documented as of this encounter
--- OUTSIDE RECORDS SUMMARY | 2024-02-13 18:04 | XMS_ITS | Encounter Summary ---
Author [facility] Address [facility] [place] [address] Care Team Providers Care Priming Mixture Carrier Name Role Phone Lia Pearson APRN Primary Care Provider [phone] [phone] Encounter Details Date Type Department Care Team (Late st Contact Info) Description 07/17/2022 Orders Only [place] [address] Jenni Waller MD [facility] [address] [place] [address] Vitamin D deficiency Social History Tobacco Use [...] Note: Practice STOP and Urge Surfing. Health Web Coordinator will send hand-outs. Movement Lifestyle On track( 023 1:14 PM EDT) Riddhi Buchanan RD Note: Continue to walk stairs and walks when can. Will continue using stairs as it's colder. Look into finding weights free online or at [employer] stores. Could use water-filled milk jugs as weights-a full gallon jug would be 8 lbs. Will look into nearby rec center 04/16/22 NATHALIA documented as of this encounter Visit Diagnoses Diagnosis Vitamin D deficiency Unspecified vitamin D deficiency documented in this encounter Care Teams Priming Mixture Carrier Relationship Specialty Start Date End Date Lia Pearson APRN [address] [place] [address] PCP - General Geriatric Medicine 02/09/22 documented as of this encounter
--- OUTSIDE RECORDS SUMMARY | 2024-02-13 18:04 | XMS_ITS | Encounter Summary ---
Author Organization [facility] Address [facility] [address] Care Team Providers Care Site Surveyor Name Role Phone Lia Pearson APRN Primary Care Provider [phone] [phone] Encounter Details Date Type Department Care Team (Late st Contact Info) Description 03/10/2022 Telephone Obstetrics [place] [address] Sabrina Swain MD [facility] [address] OBSTETRICS [place] [address] Social History Tobacco Use Types Packs/Day Years [...] can, buy fresh vegetables and fruit from [employer]-sent message with resources -Choose whole grain options [...] Practice STOP and Urge Surfing. Health Machine Packer will send hand-outs. Movement Lifestyle On track( 1:14 PM EDT) Riddhi Buchanan RD Note: Continue to walk stairs and walks when can. Will continue using stairs as it's colder. Look into finding weights free online or at thrift stores. Could use water-filled milk jugs as weights-a full gallon jug would be 8 lbs. Will look into nearby [facility] center 04/16/22 documented as of this encounter Visit Diagnoses Not on filedocumented in this encounter Care Teams Site Surveyor Relationship Specialty Start Date End Date Lia Pearson APRN [address] [place] [address] PCP - General Geriatric Medicine 02/09/22 documented as of this encounter
--- OUTSIDE RECORDS SUMMARY | 2024-02-13 18:04 | XMS_ITS | Encounter Summary ---
Author [facility] [place] [address] Care Team Providers Care Photo Optics Technician Name Role Phone Lia Pearson APRN Primary Care Provider [phone] [phone] Encounter Details Date Type Department Care Team (Late st Contact Info) Description 07/15/2022 External Results [place] [address] Rebeka Up, RN Social History Tobacco Use [...] Note: Practice STOP and Urge Surfing. Health Cloth Bale Header will send hand-outs. Movement Lifestyle On track( 023 1:14 PM EDT) Riddhi Buchanan RD Note: Continue to walk stairs and walks when can. Will continue using stairs as it's colder. Look into finding weights free online or at [employer] stores. Could use water-filled milk jugs as weights-a full gallon jug would be 8 lbs. Will look into nearby rec center 04/16/22 NATHALIA documented as of this encounter Procedures Procedure Name Priority Date/Time Associated Diagnosis Comments [facility] EXTERNAL LABS 2 Routine 07/07/2022 documented in this encounter Results * (ABNORMAL) [facility] Labs 2 - External (07/07/2022) Cholesterol, [...] Cell 8.3 Platelet 410(H) 07/07/2022 Historical Provider MD EXTERNAL LAB MARTI CASILLAS documented in this encounter Visit Diagnoses Not on filedocumented in this encounter Care Teams Photo Optics Technician Relationship Specialty Start Date End Date Lia Pearson APRN [address] [place] [address] PCP - General Geriatric Medicine 02/09/22 documented as of this encounter
--- OUTSIDE RECORDS SUMMARY | 2024-02-13 18:04 | XMS_ITS | Encounter Summary ---
[place] [address] Care Team Providers Care Family Service Counselor Name Role Phone Lia Pearson APRN Primary Care Provider [phone] [phone] Encounter Details Date Type Department Care Team (Late st Contact Info) Description 10/05/2022 Telephone Obstetrics [place] [address] Sissy Rodriguez Social History Tobacco Use Types [...] Note: Practice STOP and Urge Surfing. Health Missile Tracking Technician will send hand-outs. Movement Lifestyle On track( 023 1:14 PM EDT) Riddhi Buchanan RD Note: Continue to walk stairs and walks when can. Will continue using stairs as it's colder. Look into finding weights free online or at [employer] stores. Could use water-filled milk jugs as weights-a full gallon jug would be 8 lbs. Will look into nearby rec center 04/16/22 NATHALIA documented as of this encounter Visit Diagnoses Not on filedocumented in this encounter Care Teams Family Service Counselor Relationship Specialty Start Date End Date Lia Pearson APRN [address] [place] [address] PCP - General Geriatric Medicine 02/09/22 documented as of this encounter
--- OUTSIDE RECORDS SUMMARY | 2024-02-13 18:04 | XMS_ITS | Encounter Summary ---
[place] [address] Care Team Providers Care Dean Of Education Name Role Phone Lia Pearson APRN Primary Care Provider +1 [phone] Encounter Details Date Type Department Care Team (Late st Contact Info) Description 07/13/2022 Telephone Weight [place] [address] Zenia Sullivan Social History Tobacco Use Types [...] bloodwork on 07/07 that her PCP ordered. [place] called [facility] to request labs be faxed- should be available on Onbase. Please call patient at [phone] to discuss these matters. Thank you documented [...] can, buy fresh vegetables and fruit from [employer]-sent message with resources -Choose whole grain options [...] Note: Practice STOP and Urge Surfing. Health Garde Manger will send hand-outs. Movement Lifestyle On track( 023 1:14 PM EDT) Riddhi Buchanan RD Note: Continue to walk stairs and walks when can. Will continue using stairs as it's colder. Look into finding weights free online or at [employer] stores. Could use water-filled milk jugs as weights-a full gallon jug would be 8 lbs. Will look into nearby rec center 04/16/22 NATHALIA documented as of this encounter Visit Diagnoses Not on filedocumented in this encounter Care Teams Dean Of Education Relationship Specialty Start Date End Date Lia Pearson APRN [address] [place] [address] PCP - General Geriatric Medicine 02/09/22 documented as of this encounter
--- OUTSIDE RECORDS SUMMARY | 2024-02-13 18:04 | XMS_ITS | Encounter Summary ---
Author Organization [facility] [place] [address] Care Team Providers Care Credit Control Administrator Name Role Phone Lia Pearson APRN Primary Care Provider +1 [phone] Encounter Details Date Type Department Care Team (Latest Contact Info) Description 04/15/2022 2:30 PM EST TH Visit (TeleHealth) Weight and Wellness at [address] [address] Angela Pruett, PhD [place] [address] Schizoaffective disorder, unspecified type; Posttraumatic stress disorder [...] N [facility] [address] [facility] [address] Dept: [phone] 04/15/2022 2:30PM Zenia Worley is a 32 [...] visit they were located at home in [place]. Zenia Worley is aware that for any urgent matter they can text/call or access www.ThinkNear if they are in the state of [place]. For [place] residents, crisis service contact info can be found at: https://mentalhealth.[place].gov/services/emergency-services/bqt-auo-amlf . RECOMMENDATION BASED ON PSYCHOLOGICAL EVALUATION YELLOW [...] mom and sister, but they live in [place] Quality of EMOTIONAL support: good Quality of [...] Yoko, a woman she knows through the snf where[place]ana previously lived and who helped her [...] with a new provider, GLORY Figueroa at [facility] - planning to switch her from [...] been more stable since moving from [place], where situational stressors contributed to her emotional [...] can, buy fresh vegetables and fruit from [employer]-sent message with resources -Choose whole grain options [...] Practice STOP and Urge Surfing. Health Operations Intelligence will send hand-outs. Movement Lifestyle On track( 1:14 PM EDT) Riddhi Buchanan RD Note: Continue to walk stairs and walks when can. Will continue using stairs as it's colder. Look into finding weights free online or at [employer] [facility] stores. Could use water-filled milk jugs as weights-a full gallon jug would be 8 lbs. Will look into nearby rec center 04/16/22 documented as of this encounter Visit Diagnoses Diagnosis Schizoaffective disorder, unspecified type Posttraumatic stress disorder documented in this encounter Care Teams Credit Control Administrator Relationship Specialty Start Date End Date Lia Pearson APRN [address] [place] [address] PCP - General Geriatric Medicine 02/09/22 documented as of this encounter
--- OUTSIDE RECORDS SUMMARY | 2024-02-13 18:04 | XMS_ITS | Encounter Summary ---
Author Organization [facility] [place] [address] Care Team Providers Care General Assistant Name Role Phone Lia Pearson APRN Primary Care Provider Encounter Details Date Type Department Care Team (Late st Contact Info) Description 03/03/2022 7:30 AM EDT - 03/03/2022 10:15 AM EDT Surgery [place] [address] Sabrina Swain MD [facility] [address] [place] [address] HYSTEROSCOPY, SURG W/ENDOMETRIAL SAMPLING, POLYPECTOMY (WRVU 4.17) [...] appointment: 03/25/2022 10:20 AM Sabrina Swain MD [facility] WHIZZER HAND 5L RECOMMENDATIONS You should have somebody home [...] an egg. *Please call the Department of DRILLING FIELD SPECIALIST @ [phone] for any problem that concerns you. If [...] Swain MD - 03/03/2022 6:52 AM EDT Irrigation Service Technician Admission Note Zenia Worley is a 31 [...] 02/15). She is an established patient at [facility], had a plan for pap/emb/ IUD [...] pain, vaginal bleeding , and leg pain. BEHAVIORAL HEALTH RN Hx Most recent pap: never History of STI: never History of BEHAVIORAL HEALTH RN pathology: no Reproductive life planning: Currently sexually [...] Operative Note Patient Name: Zenia Worley : [id number] MR#: [id number] Case Date: 03/03/2022 Surgeon: Surgeon(s) and Role: [...] abnormal Pap or cervical biopsy? No Prior BEHAVIORAL HEALTH RN therapy? ([facility] bx, Cautery, Cryotherapy, Surgery) No History of HPV vaccination? No ICD-10 Diagnosis: Z12.4 Encounter for screening for malignant neoplasm of cervix SPECIMEN TO PATHOLOGY Permanent OR4 43729 abnormal uterine bleeding, BMI 70+ endometrial curettings excision No 03/03/2022 9:49 AM Time specimen removed from patient: 9:05 AM Number of tissue samples (in container) 1 Biospecimen to store? No SPECIMEN [place]OLOG[place] 4 [address] abnormal uterine bleeding, BMI 70+ Myosure Curettings [...] Swain MD - 03/03/2022 8:25 AM EDT [facility] Operative Note ?? Patient Name: Zenia Worley : [id number] MR#: [id number] ?? Case Date: 03/03/2022 ?? Surgeon: Surgeon(s) [...] Pap or cervical biopsy? No ? Prior BEHAVIORAL HEALTH RN therapy? ([facility] bx, Cautery, Cryotherapy, Surgery) No ? History of HPV vaccination? No ? ICD-10 Diagnosis: Z12.4 Encounter for screening for malignant neoplasm of cervix ? SPECIMEN TO PATHOLOGY ?? Permanent OR4 43322 abnormal uterine bleeding, BMI 70+ endometrial curettings excision No 03/03/2022 9:49 AM Time specimen removed from patient: 9:05 AM ? Number of tissue samples (in container) 1 ? Biospecimen to store? No ? SPECIMEN TO PATHOLOGY ?? [place]ermanent [place] 4 [address] abnormal uterine bleeding, BMI 70+ Myosure Curettings [...] placed in the dorsal lithotomy position in [facility].An exam under anesthesia revealed the above [...] IUD was inserted to the fundus per diversity specialist specifications. The strings were trimmed. The tenaculum [...] can, buy fresh vegetables and fruit from [employer]-sent message with resources -Choose whole grain [...] Note: Practice STOP and Urge Surfing. Health Grill Attendant will send hand-outs. Movement Lifestyle On track( 1:14 PM EDT) Riddhi Buchanan RD Note: Continue to walk stairs and walks when can. Will continue using stairs as it's colder. Look into finding weights free online or at [employer] stores. Could use water-filled milk jugs as [...] EDT HPV Routine 03/03/2022 8:39 AM EDT BEHAVIORAL HEALTH RN CYTOLOGY INTERPRETATION Routine 03/03/2022 8:39 AM EDT BEHAVIORAL HEALTH RN CYTOLOGY FINAL REPORT Routine 03/03/2022 8:39 AM EDT CYTOPATHOLOGY GYNECOLOGICAL Routine 03/03/2022 8:39 AM EDT Echography Transvaginal Non-Ob (81056) 03/03/2022 7:46 AM EDT Abnormal uterine bleeding Morbid obesity with BMI of 70 and over, adult Insert Intrauterine Device (48568) 03/03/2022 7:46 AM EDT Abnormal uterine bleeding Morbid obesity with BMI of 70 and over, adult CHG CYTOPATH,CERV/VAG,AUTO THIN LAYER,INTERP 03/03/2022 7:46 AM EDT Abnormal uterine bleeding Morbid obesity with BMI of 70 and over, adult Pelvic Examination W Anesth (79761) 03/03/2022 7:46 AM EDT Abnormal uterine bleeding Morbid obesity with BMI of 70 and over, adult Hysteroscopy, W/Endo Bx (44329) 03/03/2022 7:46 AM EDT Abnormal uterine bleeding [...] (ABNORMAL) POCT Glucose (03/03/2022 10:45 AM EDT) Glucose, POC 239(H) 65 - 199 mg/dL [facility] Comment: Supplemental ranges: <140 mg/dL before meals <180 mg/dL all other times of the day Blood 03/03/2022 10:4 5 AM EDT 03/03/2022 10:45 AM EDT Sabrina Swain MD POINT OF CARE TEST O RDERABLES [facility] [place] [address] * (ABNORMAL) POCT Glucose (03/03/2022 10:10 AM EDT) Glucose, POC 242(H) 65 - 199 mg/dL [facility] Comment: Supplemental ranges: <140 mg/dL before meals <180 mg/dL all other times of the day Blood 03/03/2022 10:1 0 AM EDT 03/03/2022 10:10 AM EDT Sabrina Swain MD POINT OF CARE TEST O JET Performing Organization Address City/[facility] [place] [address] * Specimen to Pathology (03/03/2022 10:05 AM EDT) AP Specimen 03/03/2022 10:0 5 AM EDT 03/03/2022 10:[address] [facility] - 03/03/2022 10:05 AM EDT Specimen requisition ordered. ??Separate Pathology report to follow Sabrina Swain MD PATHOLOGY/CYTOLOGY O JET Performing Organization Address [facility] [place] [address] * Specimen to Pathology (03/03/2022 9:50 AM EDT) AP Specimen 03/03/2022 9:50 AM EDT 03/03/2022 9:[address] [facility] - 03/03/2022 9:50 AM EDT Specimen requisition ordered. ??Separate Pathology report to follow Sabrina Swain MD PATHOLOGY/CYTOLOGY O JET Performing Organization Address City/[facility]/ZIP Co de Phone Number [facility] [place] [address] * Specimen to Pathology (03/03/2022 9:50 AM EDT) AP Specimen 03/03/2022 9:50 AM EDT 03/03/2022 9:[address] [facility] - 03/03/2022 9:50 AM EDT Specimen requisition ordered. ??Separate Pathology report to follow Sabrina Swain MD PATHOLOGY/CYTOLOGY O JET Performing Organization Address City/[facility]/ZIP Co de Phone Number [facility] [place] [address] * Surgical Pathology Report (03/03/2022 9:05 AM EDT) Final Diagnosis [id number] ? Location: [facility] [place]; A The signing pathologist has (i) examined [...] DO Verified: ??03/10/2022 15:40 ??Pathologist Performed at: ??-[facility] Dept. of Pathology, [place], [place] SPECIMEN(S) SUBMITTED A - Endometrial curettings, [...] submitted in 5 cassettes labeled B1-B5. ??jnr 03/10/2022 3:[address] [facility] ENDOMETRIAL STRUCTURE / Unknown 03/03/2022 9:05 AM EDT 03/03/2022 9:05 AM EDT ENDOMETRIAL STRUCTURE / Unknown 03/03/2022 9:05 AM EDT 03/03/2022 9:05 AM EDT Sabrina Swain MD PATHOLOGY/CYTOLOGY O JET Performing Organization Address [facility] de Phone Number [facility] [place] [address] * BEHAVIORAL HEALTH RN Cytology Interpretation (03/03/2022 8:39 AM EDT) Manager Federal Cytology Interpretation NILM [facility] Comment:Manager Federal Cytology Final R eport Manager Federal Cytology Comment Present [facility] Endocervical Component Present [facility] AP Specimen 03/03/2022 8:39 AM EDT 03/12/2022 11:33 AM EDT Sabrina Swain MD PATHOLOGY/CYTOLOGY O JET Performing Organization Address [facility] de Phone Number [facility] [place] [address] * Manager Federal Cytology Final Report (03/03/2022 8:39 AM EDT) Manager Federal Cytology Final Report [id number] ? Location: [facility] [place]; A The signing pathologist has (i) examined the relevant preparation(s) for the specimen(s) and (ii) rendered or confirmed the diagnosis(es). . ? Manager Federal Final DIAGNOSIS Normal Negative for intraepithelial lesion or malignancy (NILM). For consensus guidelines for the management of cervical cancer screening test results, please see: ?? http://www.asccp.o rg . Electronically signed by: ?Alfredito CT(ASCP), Sidra Verified: ??03/12/2022 11:33 ??Construction Site Crossing Guard Performed at: ??-[facility] Dept. of Pathology, [facility], [place] DISCUSSION Scant cellularity. Partially obscuring blood. HPV [...] Clinical Genomics and Advanced Technology (CGAT) at [facility]. ? - Jeromy Kam, PhD, [facility], Director-CGAT STATEMENT OF ADEQUACY Specimen submitted is satisfactory. Endocervical component present. CLINICAL INFORMATION HPV Option: ?Concurrent HPV and Pap CT/NG Option: ?Yes Preparation: ? Liquid based Pap Specimen Source: ? Cervical/Endocervi qing LMP: ? Unknown Hysterectomy: ?No : ?No : ?No I.U.D.: ?No Pelvic Radiation: ?No Hist Abnl Pap/Biopsy: ?No Prior BEHAVIORAL HEALTH RN Therapy: ? No . CLINICAL INFORMATION Hist of HPV Vaccine: ? No ICD Diagnosis: ? Z12.4 Encounter for screening for malignant neoplasm of cervix Clinical Data, Significant Therapy and Clinical Impression ?? : ?(not provided) Note: The Pap test is a screening test for cervical cancer with an inherent false-negative rate dependent upon several variables. For further information please contact the [facility] Laboratory. Reference: Paula CLEMENTS. Legal Stenographer of Pap Smear Results. In: Aruna BS, Jorge Luis SKINNER, ed. The Pap Smear. [place]: Alexander, 2002: 71-77. [facility] 03/03/2022 8:39 AM EDT Sabrina Swain MD PATHOLOGY/CYTOLOGY O RDERABLES [facility] [place] [address] * HPV (03/03/2022 8:39 AM EDT) HPV16 NEGATIVE NE[address] [facility] HPV [...] In Lab Sabrina Swain MD PATHOLOGY/CYTOLOGY O RDERAEDWARD [facility] [place] [address] * CT/NG PCR (03/03/2022 8:39 AM EDT) Chlamydia Gene Amp Negative Negative [facility] Comment: This assay was performed in the [facility] Clinical [facility] and [facility] [employer] Laboratory using the cristina CT/NG Test ([employer] The cristina CT/NG Test is an [...] disease in both symptomatic and asymptomatic individuals. Chlm Source Cervical [facility] GC Gene Amp Negative Negative [facility] Comment: This assay was performed in the [facility] Clinical [facility] [employer] Laboratory using the cristina CT/NG Test ([employer] The cristina CT/NG Test is [...] symptomatic and asymptomatic individuals. GC Source Cervical [facility] Cervical 03/03/2022 8:39 AM EDT 03/04/2022 1:34 PM EDT Narrative Resulting Agency Comment Spec In Lab Sabrina Swain MD MOLECULAR ORDERABLES Performing Organization Address [facility] Co de Phone Number [facility] [place] [address] * Cytopathology Gynecological (03/03/2022 8:39 AM EDT) AP Specimen 03/03/2022 8:39 AM EDT 03/03/2022 8:[address] [facility] - 03/03/2022 8:39 AM EDT Specimen requisition ordered. ??Separate Pathology report to follow Sabrina Swain MD PATHOLOGY/CYTOLOGY O JET Performing Organization Address [facility] de Phone Number [facility] [place] [address] * (ABNORMAL) POCT Glucose (03/03/2022 6:31 AM EDT) Glucose, POC 259(H) 65 - 199 mg/dL [facility] Comment: Supplemental ranges: <140 mg/dL before meals <180 mg/dL all other times of the day Blood 03/03/2022 6:31 AM EDT 03/03/2022 6:31 AM EDT Sabrina Swain MD POINT OF CARE TEST O JET Performing Organization Address [facility] Co de Phone Number [facility] [place] [address] documented in this encounter Visit Diagnoses Diagnosis [...] Routine documented in this encounter Care Teams General Assistant Relationship Specialty Start Date End Date Lia Pearson APRN [address] [place] [address] PCP - General Geriatric Medicine 02/09/22 documented as of this encounter
--- OUTSIDE RECORDS SUMMARY | 2024-02-13 18:04 | XMS_ITS | Encounter Summary ---
[place] [address] Care Team Providers Care Sales Mgr Name Role Phone Lia Pearson APRN Primary Care Provider [phone] Encounter Details Date Type Department Care Team (Late st Contact Info) Description 03/19/2022 Telephone Weight and Wellness at [address] [address] Angela Pruett, PhD [facility] [place] [address] Social History Tobacco Use Types Packs/Day Years [...] [address] WEIGHT AND WELLNESS AT [address] [address] Dept: [phone] 03/19/2022 11:54 AM Spoke with Zenia Worley's [...] in the past, not since moving to [place]. Are you aware of any binging [...] program, so it is likely that a [facility] Psychologist will be in touch later to [...] can, buy fresh vegetables and fruit from [employer]-sent message with resources -Choose whole grain options [...] Note: Practice STOP and Urge Surfing. Health Middleware Solutions Architect will send hand-outs. Movement Lifestyle On track( 1:14 PM EDT) Riddhi Buchanan RD Note: Continue to walk stairs and walks when can. Will continue using stairs as it's colder. Look into finding weights free online or at [employer] stores. Could use water-filled milk jugs as weights-a full gallon jug would be 8 lbs. Will look into nearby [facility] center 04/16/22 NATHALIA documented as of this encounter Visit Diagnoses Not on filedocumented in this encounter Care Teams Sales Mgr Relationship Specialty Start Date End Date Lia Pearson APRN [address] [place] [address] PCP - General Geriatric Medicine 02/09/22 documented as of this encounter
--- OUTSIDE RECORDS SUMMARY | 2024-02-13 18:04 | XMS_ITS | Encounter Summary ---
Author Organization [facility] [place] [address] Care Team Providers Care Electronics Specialist Name Role Phone Lia Pearson APRN Primary Care Provider [phone] Encounter Details Date Type Department Care Team (Late st Contact Info) Description 05/27/2022 1:45 PM EST TH Visit (TeleHealth) Weight and Wellness at [address] [address] Riddhi Wilson, RD [facility] [place] [address] Class 3 severe obesity with body mass [...] past visits. Please reach out with a [facility] message if you have any questions or [...] into finding weights free online or at [employer] stores. Could use water-filled milk jugs as weights-a full gallon jug would be 8 lbs. Will look into nearby [facility] center 04/16/22 NATHALIA Other (Enter personal goal) -Add peanut butter to oatmeal -Continue to add beans to meals as a source of protein and fiber -If can, buy fresh vegetables and fruit from [employer]-sent message with resources -Choose whole grain options if available -When having a snack, focus on protein Self-awareness, body cues Practice STOP and Urge Surfing. Health Algebra Teacher will send hand-outs. documented in this encounter [...] up Wednesday. Starting a new program with [employer]. Is comfortable finding new recipes for foods [...] Is not scheduled for FUV with this property underwriter for now, understands she can schedule if needed. Psych visit Jun 09. Weight Loss History: See previous notes from this property underwriter and [facility] provider for full account Typical Dietary Intake: See previous notes from this property underwriter B: L: D: S: low fat yogurt bw L and D and yogurt before bed for blood sugar Typical Beverages: [x] coffee (Cups per day: [] half and half (unflavored) [] flavored creamer (sugar) [] flavored creamer (sugar-free) [] added sugar - (total: [] added non-caloric sweetener [] water - (total: [x] plain [x] crystal light or other sugar-free additive [] Gilbert [] Alcohol (Amount per week: [] Diet [...] into finding weights free online or at [employer] stores. o Could use water-filled milk jugs as weights-a full gallon jug would be 8 lbs. ??? Will look into nearby [facility] center 04/16/22 NATHALIA ??? Other (Enter personal goal) -Add peanut butter to oatmeal -Continue to add beans to meals as a source of protein and fiber -If can, buy fresh vegetables and fruit from [employer]-sent message with resources -Choose whole grain options if available -When having a snack, focus on protein ??? Self-awareness, body cues Practice STOP and Urge Surfing. Health Algebra Teacher will send hand-outs. Bariatric eating behaviors introduced [...] into finding weights free online or at [employer] stores. o Could use water-filled milk jugs as weights-a full gallon jug would be 8 lbs. ??? Will look into nearby [facility] center 04/16/22 NATHALIA ??? Other (Enter personal goal) On track -Add peanut butter to oatmeal -Continue to add beans to meals as a source of protein and fiber -If can, buy fresh vegetables and fruit from [employer]-sent message with resources -Choose whole grain options if available -When having a snack, focus on protein Monitor/Evaluate: [] Needs additional fuv scheduled with this property underwriter: No follow-ups on file. (OR) [] Currently scheduled for: [] 1st consecutive monthly nutrition visit [] 2nd consecutive monthly nutrition visit [] 3rd consecutive monthly nutrition visit (OR) [x] Patient has met requirement of 3 consecutive monthly nutrition visits. Above determined to the best ability of this property underwriter. Patient will contact bariatric surgery team [...] can, buy fresh vegetables and fruit from [employer]-sent message with resources -Choose whole grain [...] Note: Practice STOP and Urge Surfing. Health Algebra Teacher will send hand-outs. Movement Lifestyle On track( 023 1:14 PM EDT) Riddhi Buhcanan RD Note: Continue to walk stairs and walks when can. Will continue using stairs as it's colder. Look into finding weights free online or at [employer] stores. Could use water-filled milk jugs as weights-a full gallon jug would be 8 lbs. Will look into nearby rec center 04/16/22 NATHALIA documented as of this encounter Visit Diagnoses Diagnosis Class 3 severe obesity with body mass index (BMI) of 60.0 to 69.9 in adult, unspecified obesity type, unspecified whether serious comorbidity present documented in this encounter Care Teams Electronics Specialist Relationship Specialty Start Date End Date Lia Pearson [place] [address] [place] [address] PCP - General Geriatric Medicine 02/09/22 documented as of this encounter
--- OUTSIDE RECORDS SUMMARY | 2024-02-13 18:04 | XMS_ITS | Encounter Summary ---
[place] [address] Care Team Providers Care Enamel Shader Name Role Phone Lia Pearson APRN Primary Care Provider [phone] Encounter Details Date Type Department Care Team [...] 1:14 PM EDT) Riddhi Buhcanan RD Note: Eating Slowly and taking 20-30 [...] Note: Practice STOP and Urge Surfing. Health Engravings Polisher will send hand-outs. Movement Lifestyle On track( 023 1:14 PM EDT) Riddhi Buchanan RD Note: Continue to walk stairs and walks when can. Will continue using stairs as it's colder. Look into finding weights free online or at [employer] stores. Could use water-filled milk jugs as weights-a full gallon jug would be 8 lbs. Will look into nearby rec center 04/16/22 NATHALIA documented as of this encounter Visit Diagnoses Not on filedocumented in this encounter Care Teams Enamel Shader Relationship Specialty Start Date End Date Lia Pearson APRN [address] [place] [address] PCP - General Geriatric Medicine 02/09/22 documented as of this encounter
--- OUTSIDE RECORDS SUMMARY | 2024-02-13 18:04 | XMS_ITS | Encounter Summary ---
[place] [address] Care Team Providers Care Upholsterer Outside Name Role Phone Lia Pearson APRN Primary Care Provider [phone] Encounter Details Date Type Department Care Team [...] Note: Practice STOP and Urge Surfing. Health Staff Occupational Therapist will send hand-outs. Movement Lifestyle On track( 023 1:14 PM EDT) Riddhi Buchanan RD Note: Continue to walk stairs and walks when can. Will continue using stairs as it's colder. Look into finding weights free online or at [employer] stores. Could use water-filled milk jugs as weights-a full gallon jug would be 8 lbs. Will look into nearby rec center 04/16/22 NATHALIA documented as of this encounter Visit Diagnoses Not on filedocumented in this encounter Care Teams Upholsterer Outside Relationship Specialty Start Date End Date Lia Pearson APRN [address] [place] [address] PCP - General Geriatric Medicine 02/09/22 documented as of this encounter
--- OUTSIDE RECORDS SUMMARY | 2024-02-13 18:04 | XMS_ITS | Encounter Summary ---
Author Organization [facility] [place] [address] Care Team Providers Care Adapted Physical Education Teacher Name Role Phone Lia Pearson APRN Primary Care Provider [phone] Reason for Visit * Reason Comments Vaginal Bleeding Since Th * Auth/Cert (Routine) Specialty Diagnoses / Procedures Referred By Contac t Referred To Contact Diagnoses Vaginal bleeding Vaginal bleeding Mau Marks MD [facility] OBSTETRICS [place] [address] [facility] Referral ID Status Reason Start Date Expiration Date Visits Re quested Visits Authorized [id number] 1 1 Encounter Details Date Type Department Care Team (Late st Contact Info) Description 10/13/2022 7:05 PM EDT - 10/13/2022 7:53 [place] [address] Pradip Avila MD [facility] [place] [address] RADIOFREQUENCY ABLATION Social History Tobacco Use Types [...] Zenia Worley Patient Age: 32 y.o. Language: Belizean Race: Black or Ethnicity: Not nor Admit date: 10/13/2022 Discharge date and time: 10/15/2022 Attending Physician: No att. providers found Discharge Physician: Dr. Heath Follow-up Recommendations for Providers: -- Follow up outpatient with in [facility] [employer] [facility] on 11/13/[address] Ahumada. -- Follow up with outpatient interventional radiology Inpatient Provider Contact Information: [facility] [employer], Phone number [phone] Discharge Diagnoses (Hospital Problems) and Secondary Diagnoses [...] pain, and BMI 72. She presented to [facility] today with dizziness and lightheadedness related to heavy vaginal bleeding. She was treated with blood transfusion and IV hydration and transported here for further care. ?? For her AUB, She underwent a EUA, TVUS, pap, hysteroscopy with myosure curettage, sharp curettage, and Mirena IUD placement on 03/03/[address] Sawin. EUA: benign, uterus sounded to 12cm TVUS: [...] she awoke this morning. She called her TEST CENTER MANAGER in [facility] because she felt dizzy and lightheaded with just standing. She was instructed to present to medical care, so she then called an ambulance. ?? At [facility], they treated her bleeding with 2 U PRBC and TXA. Hgb was 8.9. Additionally recussitated with IV fluids. They performed a transabdominal US (patient does not tolerate transvaginal due to trauma history) and they did not see the IUD. ?? Upon arrival at [facility], she received an additional 3 [...] menses. She had a visit with a radiologic technologist chief at [facility], but was unable tocomplete the laboratory testing due to transportation. Prior studies were negative for vWF or factor 8 deficiency, though the radiologic technologist chief suggested repeating labs as these levels can [...] up with IR outpatient to further investigate roasterman IR embolization options with a plan to follow up with [facility] [employer] [facility] clinic as noted above. Vital signs at [...] or concerns related to this hospitalization call: [phone] weekdays, or [phone] weekends or nights. Call your doctor if you develop: --A fever over 101 degrees F --Severe pain -- Nausea / vomiting, diarrhea, intolerance of food or drink --Heavy vaginal bleeding, saturating 1+ heavy pad per hour General Instructions [facility] Vascular and Interventional Radiology Discharge Instructions For [...] is during regular office hours, please call [phone]. If it is after regular office hours, or on weekends or holidays, please call [phone] and ask to speak to the [employer] Assembler rn occupational health for Interventional Radiology. You have received medication [...] Berenice Ahumada MD Obstetrics and Gynecology at [facility] Arrive at: Insurance Counselor Area 11/13/2022 11:15 AM Jenni Waller MD Weight and Wellness at [facility] Arrive at: Insurance Counselor Area 11/24/2022 10:30 AM Raisa Vallejo, PhD Weight and Wellness at [facility] Arrive at: Home [phone] To view instructions for your video visit, click here, or visit this website: [email or web address] If you have not previously downloaded the Brand[employer] patient portal software, Urban Ladder, or the [employer] rebecca, please do so by clicking one [...] is: follow up for evlauation of possible retirement IR embolization Discharge References/Attachments None Provider Contact Information: Liajermaine Pearson, JULIO C [phone] documented in this encounter Discharge Instructions * Discharge Instructions* Deneen Grider RN - 10/13/2022 9:35 PM EDT [facility] Vascular and Interventional Radiology Discharge Instructions For [...] is during regular office hours, please call [phone]. If it is after regular office hours, or on weekends or holidays, please call [phone] and ask to speak to the [employer] Assembler rn occupational health for Interventional Radiology. You have received medication [...] D. Revised 05/31/15 * Patient Instructions* Marco aPtel MD - 10/15/2022 2:26 PM EDT Follow up appointments and recommendations: Clinic secretaries will reach out to you for your follow up appointment Patient Discharge Instructions: - Take Aygestin 10mg three times a day For problems or concerns related to this hospitalization call: [phone] weekdays, or [phone] weekends or nights. Call your doctor if [...] was scheduled and confirmed though RCT. The truck driver supervisor will be Mian and he will pick [...] for follow up in 4 weeks for retirement management. -- Continue pad counts. Urinary: Sierra [...] discharge today. Will coordinate follow up with [employer] and IR outpatient and follow up on cardiology recs. Patient plan to be discussed with Dr. Heath attending Marco Patel MD, PGY-1 Obstetrics and Gynecology, Pager #[phone] 10/15/22 Attending note I saw and evaluated [...] cardiology recs. She would benefit from an [facility] Medicaid ride, which will we coordinate [...] Ramon PA-C Interventional Radiology IR Team Pager [phone] * Marco Patel MD - 10/14/2022 6:14 [...] TVUS d/t trauma history -- Consider discussing retirement management options. -- Continue pad counts. Urinary: [...] Patel MD, PGY-1 Obstetrics and Gynecology, Pager #[phone] 10/14/22 Associated attestation - Berenice Ahumada MD [...] patient was seen and discussed with attending [employer] physician, Cecilia HERNANDEZ. Sabrina Mayfield DO, PGY-1 Obstetrics and Gynecology 10/14/22 * Felipa Alamo RN - 10/13/2022 11:40 PM EDT Patient arrived from PACU via bed. Patient denies pain, chest pain, SOB, nausea, numbness, tingling. Patient has sierra in place. IVF running. Patient on 2L NC. Patient moved to new bed. Patient connected to [employer]. VSS - patient remains tachycardic. Call neal [...] 2 Liters nasal cannula oxygen. -- Paged [phone] for respiratory therapy to establish CPAP care [...] TVUS d/t trauma history -- Consider discussing retirement management options Urinary: Sierra catheter in place. [...] Patient plan discussed with Dr. Marks attending stacking machine operator and Dr. Tee PGY4. MS4 Janie present [...] had presented with heavy bleeding today at [facility] had talked to Zenia [...] more fully with hematology and the day appliance service technician team to determine a more roasterman plan of care. MAU MARKS MD * Deneen Grider RN - 10/13/2022 8:38 PM EDT [facility] NURSING DATABASE Name: Zenia Worley Date of : 1990 AGE: 32 y.o. Address: [address] [place] [id number] (home) Mobile: Telephone Information: Referring Provider: Usama [...] hypertension, benign I10 Long-term insulin use Z79.4 longterm 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 Z79.84 [...] 79 who is admitted in transfer from [facility] with heavy uterine bleeding resulting in hypotension, requiring transfusion. She has recent TVUS with no structural pathology, thickened endometrial lining. Recent hysteroscopy, D&C with benign endometrial findings. She has been on Aygestin 5 mg BID. ADAPTIVE PHYSICAL EDUCATION TEACHER team presented to ED Trauma [facility] 1 C upon patient arrival for evaluation. Patient is s/p 2 u PRBCs in transport, as well as 1 gm IV TXA. On admission, she had continued heavy vaginal bleeding. Blood pressures with MAPs 60s- 70s. She is reporting lightheadedness and fatigue, as well as chest discomfort. She received 3 additional u PRBCs for Hgb 8.6. ADAPTIVE PHYSICAL EDUCATION TEACHER recommended administration of IV [id number] mg STAT, given in ED at 1811. External exam notable for ~100 mL bright red blood and clots seen in ~30 minutes. With fluid resuscitation and blood administration, her MAPs improved to 75-77. HR 90s-100s, at times in 110s- 120s. Given ongoing bleeding recommended IR consultation with uterine artery embolization. IR team transferred patient from ED Trauma [facility] to IR suite for attempted UAE versus [...] I10 ??? Long-term insulin use Z79.4 ??? longterm 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 Z79.84 [...] ANESTHESIA performed by Sabrina Swain MD at [facility] OR ??? PRG ECHOGRAPHY TRANSVAGINAL NON-OB Midline 03/03/2022 ULTRASOUND, TRANSVAGINAL (WRVU 0.69) performed by Sabrina Swain MD at [facility] OR ??? PRO HYSTEROSCOPY, W/ENDO BX N/A 03/03/2022 HYSTEROSCOPY, SURG W/ENDOMETRIAL SAMPLING, POLYPECTOMY (WRVU 4.74) performed by Sabrina Swain MD [facility] OR ??? PRO INSERT INTRAUTERINE DEVICE N/A 03/03/2022 INSERTION OF IUD, VAGINAL APPROACH (WRVU 1.01) performed by Sabrina Swain MD at [facility] OR ??? PRO PELVIC EXAMINATION W ANESTH N/A 03/03/2022 PELVIC EXAM UNDER ANESTHESIA (WRVU 1.75) performed by Sabrina Swain MD at [facility] OR Medications: No current facility-administered medications on [...] Hobbies? Not really right now. Came to [place] from [place] to work at [employer] - took one year to [...] pain, and BMI 72. She presented to [facility] today with dizziness and lightheadedness related [...] she awoke this morning. She called her TEST CENTER MANAGER in [facility] because she felt dizzy and lightheaded with just standing. She was instructed to present to medical care, so she then called an ambulance. At [facility], they treated her bleeding with 2 U PRBC and TXA. Hgb was 8.9. Additionally recussitated with IV fluids. They performed a transabdominal US (patient does not tolerate transvaginal due to trauma history) and they did not see the IUD. Upon arrival at [facility], she received an additional 3 [...] menses. She had a visit with a radiologic technologist chief at [facility], but was unable tocomplete the laboratory testing due to transportation. Prior studies were negative for vWF or factor 8 deficiency, though the radiologic technologist chief suggested repeating labs as these levels can [...] at [facility] MAIN OR ??? PRG ECHOGRAPHY TRANSVAGINAL NON-OB Midline 03/03/2022 ULTRASOUND, TRANSVAGINAL (WRVU 0.69) performed by Sabrina Swain MD at [facility] MAIN OR ??? PRO HYSTEROSCOPY, W/ENDO BX N/A 03/03/2022 HYSTEROSCOPY, SURG W/ENDOMETRIAL SAMPLING, POLYPECTOMY (WRVU 4.74) performed by Sabrina Swain MD [facility] MAIN OR ??? PRO INSERT INTRAUTERINE DEVICE N/A 03/03/2022 INSERTION OF IUD, VAGINAL APPROACH (WRVU 1.01) performed by Sabrina Swain MD at [facility] MAIN OR ??? PRO PELVIC EXAMINATION W ANESTH N/A 03/03/2022 PELVIC EXAM UNDER ANESTHESIA ([facility] 1.75) performed by Sabrina Swain MD at [facility] MAIN OR Past Obstetric History: OB [...] Hobbies? Not really right now. [place]ame [place] to work at [employer] transition - took one year to [...] patient was seen and discussed with attending [employer] physician. Sabrina Mayfield DO, PGY-1 Obstetrics and [...] the right ovary. She was transferred to [facility] for higherlevel of care. She states she [...] [10/13/222125] Physical Exam Exam conducted with a manager sign present. Constitutional: Comments: Lying in bed, tired [...] as of 10/14/22 0002 WedOctober 13, 2022 6261 [facility] [employer] [facility] paged Procedures Assessment and Plan: 32 y.o. [...] emergency department. Patient rapidly seen by the ADAPTIVE PHYSICAL EDUCATION TEACHER team who ordered IV estrogen to attempt to stop her vaginal bleeding. She was subsequently evaluated by interventional radiology for arterial embolization per the request of ADAPTIVE PHYSICAL EDUCATION TEACHER. Patient did not require any vasoactive medications to support her blood pressure while in the emergency department. She was admitted to the ADAPTIVE PHYSICAL EDUCATION TEACHER service and taken to the IR suite [...] this RN. Report given to the IR RECORD PRODUCER and other staff. * Estephania Baird RN [...] - 10/13/2022 3:41 PM EDT Sending Facility: [facility] Reason for Transfer: stacking machine operator services Report: Pt c/o vaginal bleeding with [...] I accepted in transfer from Dr. Fang, [facility] ED The patient will be evaluated in the Emergency Department for vaginal bleeding The EM team will contact the [facility] [employer] team as needed The OSH does not agree to take the patient back in transfer after our evaluation and treatment. Transfer and stabilization prior to transfer were not discussed This is a 32-year-old female with a history of anovulatory uterine bleeding status post hysteroscopy and IUD placement at [facility] in February 2022 who presented to the [...] still taking her Aygestin. Dr. Swain from ADAPTIVE PHYSICAL EDUCATION TEACHER was on the call the patient will be transferred for evaluation in our ED by the ED team and by [employer]. Based on the extent of the patient's [...] and potential risk/benefit. Zan Meade MD 10/13/22 0269 Zan Meade MD 10/13/22 1506 Zan Meade MD 10/13/22 1512 documented in this encounter Miscellaneous Notes * [...] All are in agreement with plan. CAPO Curry,contracts paralegal Team Case Management Pager #[phone] * Plan of Care - Felipa Alamo [...] Nurse Note Situation: Asked to see Zenia Wroley by Caryl Pearce MD for 32 yo [...] 1.0 10/13/2022 PT 10.9 10/13/2022 Current bed: [facility]. Okay to switch to [facility] [...] Please contact Gertrude Davenport RN on pager [phone] or the wound care team at [phone] or pager [phone] with skin and wound care concerns or [...] surrogate would be surrogate decision maker per [place] surrogate decision making law. (Only good for 180 days) Any patient receiving care in [place] must abide by [place] law. The hierarchy for surrogate decision making [...] (i) The agent with financial power of staffing associate or a conservator appointed in accordance with [...] confirmed as: [address] [facility] [address] Social & Family Supports: All names listed [...] (medicaid [place]) ; Prescription Coverage: Preferred Pharmacy: [phone] [address] Status: Patient is a : No Primary Care Provider confirmed: Lia Pearson APRN [phone] Patient/Caregiver Goals of Treatment: Patient would like to return home when bleeding is improved. Potential Needs for Transition of Care: none Agency Referrals: Not Applicable Transportation: no concerns Transportation Anticipated: family or friend will provide Concerns to be Addressed: denies needs/concerns at this time Assessment: Patient is admitted to ADAPTIVE PHYSICAL EDUCATION TEACHER service for vaginal bleeding Plan: Consult wound for wound on left gluteus, consult cardiology for increase trop and try to weanO2. A member of the Care Management team will continue to monitor progress, follow for continuity of care and assist with transition of care planning. CAPO Curry,contracts paralegal Team Case Management Pager #[phone] * Plan of Care - Felipa Alamo [...] from the original note were not included. [facility] [place] [address] [address] INPATIENT CARDIOLOGY CONSULT NOTE Date of Consultation: 10/14/2022 Admit Date: 10/13/2022 Place of Service: [facility] Responsible Attending: Mau Marks MD [...] XR 500 mg twice daily. Continue with whitlye 2 CGM, swipe 4-5Xday. Encouraged to continue [...] Patient describes that when she arrived to [facility] she felt an uncomfortable and sharp pain [...] at [facility] MAIN OR ??? PRG ECHOGRAPHY TRANSVAGINAL NON-OB Midline 03/03/2022 ULTRASOUND, TRANSVAGINAL (WRVU 0.69) performed by Sabrina Swain MD at [facility] MAIN OR ??? PRO HYSTEROSCOPY, W/ENDO BX N/A 03/03/2022 HYSTEROSCOPY, SURG W/ENDOMETRIAL SAMPLING, POLYPECTOMY (WRVU 4.74) performed by Sabrina Swain MD [facility] OR ??? PRO INSERT INTRAUTERINE DEVICE N/A 03/03/2022 INSERTION OF IUD, VAGINAL APPROACH (WRVU 1.01) performed by Sabrina Swain MD at [facility] OR ??? PRO PELVIC EXAMINATION W ANESTH N/A 03/03/2022 PELVIC EXAM UNDER ANESTHESIA (WRVU 1.75) performed by Sabrina Swain MD at [facility] OR Allergies: Allergies Allergen Reactions ??? Fluoxetine [...] ??? sodium chloride 0.9% 100 mL/hr (10/13/22 7036) Family and Social History: Family History Problem Relation Age of Onset ??? Uterine Cancer Neg Hx ??? Ovarian Cancer Neg Hx ??? Breast Cancer Neg Hx Only family hx of heart disease is an aunt that had an [place] at the age of 78. Social History [...] Hobbies? Not really right now. Came to [place] to work at [employer] transition - took one year to [...] Surgical Unit Level 3 Wing D at [facility] TH Visit (TeleHealth) from 05/29/2022 in Weight and Wellness at [facility] Weight 185.1 kg (408 lb) 1 [...] 79), PTSD, schizoaffective disorder who presented to [facility] with hemorrhagic shock and was subsequently found [...] page if further consultation required. Dmitriy Miller Fire Extinguisher Technician [phone] Associated attestation - Narendra Wolfe MD [...] Attending: All Staff: Staff Role Jhon Syed Freelance Copywriter Pradip Avila MD Attending Neftali Morrison MD [...] To PACU for recovery, then admission to ADAPTIVE PHYSICAL EDUCATION TEACHER service. Post radial access orders per protocol. [...] Note: Practice STOP and Urge Surfing. Health Weight Loss Counselor will send hand-outs. Movement Lifestyle On track( 023 1:14 PM EDT) Riddhi Buchanan, CORNELIO Note: Continue to walk stairs and walks when can. Will continue using stairs as it's colder. Look into finding weights free online or at [employer] stores. Could use water-filled milk jugs as [...] 10/13/2022 4:40 PM EDT TYPE AND SCREEN (MC/CGP/JOAN) STAT 10/13/2022 4:40 PM EDT POCT GLUCOSE Routine 10/13/2022 4:38 PM EDT LAB SCAN 10/13/2022 12:00 AM EDT documented in this encounter Results * POCT Glucose (10/15/2022 11:40 AM EDT) Glucose, POC 149 65 - 199 mg/dL [facility] Comment: Supplemental ranges: <140 mg/dL before meals <180 mg/dL all other times of the day Blood 10/15/2022 11:4 0 AM EDT 10/15/2022 11:40 AM EDT Mau Marks MD POINT OF CARE TEST O JET Performing Organization Address City/[facility] Co de Phone Number [facility] [place] [address] * POCT Glucose (10/15/2022 7:51 AM EDT) Glucose, POC 131 65 - 199 mg/dL [facility] Comment: Supplemental ranges: <140 mg/dL before meals <180 mg/dL all other times of the day Blood 10/15/2022 7:51 AM EDT 10/15/2022 7:51 AM EDT Mau Marks MD POINT OF CARE TEST O JET Performing Organization Address [facility] Co de Phone Number [facility] [place] [address] * POCT Glucose (10/15/2022 3:36 AM EDT) Glucose, POC 122 65 - 199 mg/dL [facility] Comment: Supplemental ranges: <140 mg/dL before meals <180 mg/dL all other times of the day Blood 10/15/2022 3:36 AM EDT 10/15/2022 3:36 AM EDT Mau Marks MD POINT OF CARE TEST O JET Performing Organization Address [facility] Co de Phone Number [facility] [place] [address] * POCT Glucose (10/14/2022 11:09 PM EDT) Glucose, POC 135 65 - 199 mg/dL [facility] Comment: Supplemental ranges: <140 mg/dL before meals <180 mg/dL all other times of the day Blood 10/14/2022 11:0 9 PM EDT 10/14/2022 11:09 PM EDT Mau Marks MD POINT OF CARE TEST O RDERABLES Performing Organization Address [facility] Co de Phone Number [facility] [place] [address] * POCT Glucose (10/14/2022 7:20 PM EDT) Glucose, POC 146 65 - 199 mg/dL [facility] Comment: Supplemental ranges: <140 mg/dL before meals <180 mg/dL all other times of the day Blood 10/14/2022 7:20 PM EDT 10/14/2022 7:20 PM EDT Mau Marks MD POINT OF CARE TEST O CORNELIOERAEDWARD Performing Organization Address [facility] Co de Phone Number [facility] [place] [address] * POCT Glucose (10/14/2022 4:45 PM EDT) Glucose, POC 165 65 - 199 mg/dL [facility] Comment: Supplemental ranges: <140 mg/dL before meals <180 mg/dL all other times of the day Blood 10/14/2022 4:45 PM EDT 10/14/2022 4:45 PM EDT Mau Marks MD POINT OF CARE TEST O RDERABLES Performing Organization Address [facility] Co de Phone Number [facility] [place] [address] * ECHO COMPLETE W CONTRAST (10/14/2022 3:07 PM EDT) Anatomical Region Laterality Modality Cardiac Other 10/14/2022 2:18 PM EDT Narrative 10/14/2022 3:29 PM EDT ? Echocardiogram Report Name: ZENIA WORLEY ?Study Date: 10/14/2022 02:18 PMBP: 129/83 mmHg ? Patient Location: [id number] B : 1990 ? Height: 155 cm ? Account: [id number] Age: 32 yrs ? Weight: 185 kg Gender: Female ?BSA: 2.6 m2 Ordering Physician: MAU MARKS Referring Physician: USAMA FANG Performed By: Villa Berg RDCS Reason For Study: Non-ST elevation myocardial infarction (NSTEMI) Interpreting Fellow: Renaldo Mayfield. Exam Location: [facility]. Interpretation Summary - The left ventricle is [...] is no prior study for comparison. Procedure Complete-[id number]. Image enhancement Optison was used for left [...] Date: 302:18 PMBP: 129/83 mmHg Patient Location: [id number] B : 1990 Height: 155 cm Account: [id number] Age: 32 yrs Weight: 185 kg Gender: Female BSA: 2.6 m2 Ordering Physician: MAU MARKS Referring Physician: USAMA FANG Performed By: Villa Berg RDCS Reason For Study: Non-ST elevation myocardial infarction (NSTEMI) Interpreting Fellow: Renaldo Mayfield. Exam Location: [facility]. Interpretation Summary - The left ventricle is [...] is no prior study for comparison. Procedure Complete-44457. Image enhancement Optison was used for left [...] * POCT Glucose (10/14/2022 12:40 PM EDT) Glucose, POC 153 65 - 199 mg/dL [facility] Comment: Supplemental ranges: <140 mg/dL before meals <180 mg/dL all other times of the day Blood 10/14/2022 12:4 0 PM EDT 10/14/2022 12:40 PM EDT Mau Marks MD POINT OF CARE TEST O RDERABLES Performing Organization Address City/[facility]/ZIP Co de Phone Number [facility] [place] [address] * (ABNORMAL) Hemogram (10/14/2022 8:21 AM EDT) White Blood Cell 11.8(H) 4.0 - 9.5 x10(3)/mc L [facility] Red Blood Cell 3.40(L) 4.00 - 5.21 x10(6)/mc L [facility] Hemoglobin 9.5(L) 11.7 - 15.5 g/dL [facility] Hematocrit 28.5(L) 35.7 - 45.8 % [facility] Mean Cell Volume 83.8 82.6 - 94.4 fL [facility] Mean Cell Hemoglobin 27.9 27.1 - 32.0 pg [facility] Mean Cell Hemoglobin Concentration 33.3 31.7 - 35.0 g/dL [facility] Platelet 278 145 - 357 x10(3)/mc L [facility] RDW Standard Deviation 45.3 37.0 - 46.0 fL [facility] RDW coefficient of variation 14.9(H) 11.5 - 14.1 % [facility] Mean Platelet Volume 11.0 7.6 - 12.9 fL [facility] NRBC% auto 0.0 % [facility] NRBC Absolute 0.000 0.000 - 0.000 x10(3)/mc L [facility] Blood 10/14/2022 8:21 AM EDT 10/14/2022 8:50 AM EDT Narrative Resulting Agency Comment Spec In Lab Mau Marks MD HEMATOLOGY ORDERABLE S Performing Organization Address City/[facility]/ZIP Co de Phone Number [facility] [place] [address] * (ABNORMAL) Troponin (10/14/2022 8:21 AM EDT) Troponin-T, High Sensitivity 18(H) <=14 ng/L [facility] Comment: This patient's troponin T concentration [...] troponin value can be found in the [facility] Laboratory Test Catalog Troponin - [facility] Laboratory Test Catalog Reference: Fourth Kimball Definition of Myocardial Infarction. Journal of the [place] [employer] 2018;72:6909-7125 Blood 10/14/2022 8:21 AM EDT 10/14/2022 8:50 AM EDT Narrative Resulting Agency Comment Spec In Lab Mau Marks MD CHEMISTRY ORDERABLES [facility] [place] [address] * POCT Glucose (10/14/2022 7:26 AM EDT) Pathologist [facility] Glucose, POC 127 65 - 199 mg/dL [facility] Comment: Supplemental ranges: <140 mg/dL before meals <180 mg/dL all other times of the day Blood 10/14/2022 7:26 AM EDT 10/14/2022 7:26 AM EDT Mau Marks MD POINT OF CARE TEST O RDERABLES [facility] [place] [address] * POCT Glucose (10/14/2022 5:03 AM EDT) Glucose, POC 118 65 - 199 mg/dL [facility] Comment: Supplemental ranges: <140 mg/dL before meals <180 mg/dL all other times of the day Blood 10/14/2022 5:03 AM EDT 10/14/2022 5:03 AM EDT Mau Marks MD POINT OF CARE TEST O RDERAEDWARD Performing Organization Address City/[facility] Co de Phone Number [facility] [place] [address] * (ABNORMAL) Differential, Automated (10/14/2022 2:25 AM EDT) Neutrophil % 80.9 % [facility] Neutrophil Absolute 12.22(H) 1.70 - 6.10 x10(3)/mc L [facility] Lymph % 11.1 % [facility] Lymphocytes Abs 1.7 0.9 - 3.2 x10(3)/mc L [facility] Monocyte % 6.1 % [facility] Monocyte Abs 0.9 0.3 - 0.9 x10(3)/mc L [facility] Eos % 0.5 % [facility] Eosinophils Abs 0.1 0.0 - 0.4 x10(3)/mc L [facility] Basophil % 0.3 % [facility] Baso Absolute 0.0 0.0 - 0.1 x10(3)/mc L [facility] Immature Gran % 1.10 % [facility] Comment: Immature granulocytes(IG's)percentage and absolute count will include metamyelocytes, myelocytes, and promyelocytes. Blood smears from CBCs yielding IG's will be scanned manually for concordance. If this scan disagrees with the automated IG or if promyelocytes are noted, a manual differential will be performed. Immature Gran Absolute 0.16(H) 0.00 - 0.04 x10(3)/mc L [facility] Blood 10/14/2022 2:25 AM EDT 10/14/2022 2:33 AM EDT Narrative Resulting Agency Comment Spec In Lab Sabrina Mayfield DO HEMATOLOGY ORDERABLE S Performing Organization Address City/[facility]/ZIP Co de Phone Number [facility] [place] [address] * (ABNORMAL) Hemogram (10/14/2022 2:25 AM EDT) White Blood Cell 15.1(H) 4.0 - 9.5 x10(3)/ L [facility] Red Blood Cell 3.46(L) 4.00 - 5.21 x10(6)/[facility] Hemoglobin 9.9(L) 11.7 - 15.5 g/dL [facility] Hematocrit 29.1(L) 35.7 - 45.8 % [facility] Mean Cell Volume 84.1 82.6 - 94.4 fL [facility] Mean Cell Hemoglobin 28.6 27.1 - 32.0 pg [facility] Mean Cell Hemoglobin Concentration 34.0 31.7 - 35.0 g/dL [facility] Platelet 288 145 - 357 x10(3)/mc L [facility] RDW Standard Deviation 45.2 37.0 - 46.0 fL [facility] RDW coefficient of variation 14.8(H) 11.5 - 14.1 % [facility] Mean Platelet Volume 11.1 7.6 - 12.9 fL [facility] NRBC% auto 0.1 % [facility] NRBC Absolute 0.020(H) 0.000 - 0.000 x10(3)/ L [facility] Blood 10/14/2022 2:25 AM EDT 10/14/2022 2:33 AM EDT Narrative Resulting Agency Comment Spec In Lab Sabrina Mayfield DO HEMATOLOGY ORDERABLE S [facility] [place] [address] * (ABNORMAL) Comprehensive metabolic panel (non-fasting) (10/14/2022 2:25 AM EDT) Glucose 106 65 - 199 mg/dL [facility] Comment:Diabetes: >=200 mg/d L plus symptoms Blood Urea Nitrogen 18 8 - 18 mg/dL [facility] Creatinine 0.90 0.70 - 1.20 mg/dL [facility] Sodium 137 135 - 145 mmol/L [facility] Potassium 4.9 3.5 - 5.0 mmol/L [facility] Comment: Please note: ??Patients with WBC >100,000 may have falsely elevated Potassium levels. ??For accurate Potassium quantification in these patients send serum separator tube (gold top) for subsequent determinations. ??Contact the Clinical Chemistry Laboratory if there are any questions. Chloride 104 98 - 107 mmol/L [facility] Carbon Dioxide 22 22 - 31 mmol/L [facility] Anion Gap 11 5 - 15 mmol/L [facility] Calcium 8.2(L) 8.5 - 10.5 mg/dL [facility] Protein, Total 6.0(L) 6.1 - 8.0 g/dL [facility] Albumin 3.5 3.2 - 5.2 g/dL [facility] Aspartate Aminotransferase 24 0 - 30 unit/L [facility] Alanine Aminotransferase 41(H) 0 - 30 unit/L [facility] Alkaline Phosphatase 50 35 - 105 unit/L [facility] Bilirubin, Total 0.8 0.2 - 1.3 mg/dL [facility] Est Glomerular Filtration Rate 88 >=60 mL/min/1. 73 m?? [facility] Comment: This patient's estimated GFR was [...] Marks MD CHEMISTRY ORDERABLES Performing Organization Address City/[facility]/[place] [address] * (ABNORMAL) Troponin (10/14/2022 2:25 AM EDT) [facility] Troponin-T, High Sensitivity 22(H) <=14 ng/L [facility] Comment: This patient's troponin T concentration [...] troponin value can be found in the [facility] Laboratory Test Catalog Troponin - [facility] Laboratory Test Catalog Reference: Fourth Kimball Definition of Myocardial Infarction. Journal of the [place] [employer] 2018;72:7445-8575 Blood 10/14/2022 2:25 AM EDT 10/14/2022 2:33 AM EDT Narrative Resulting Agency Comment Spec In Lab Estee Zeng MD CHEMISTRY ORDERABLES Performing Organization Address City/[facility]/ZIP Co de Phone Number [facility] [place] [address] * POCT Glucose (10/14/2022 2:24 AM EDT) Glucose, POC 105 65 - 199 mg/dL [facility] Comment: Supplemental ranges: <140 mg/dL before meals <180 mg/dL all other times of the day Blood 10/14/2022 2:24 AM EDT 10/14/2022 2:24 AM EDT Mau Marks MD POINT OF CARE TEST O RDERABLES [facility] [place] [address] * POCT Glucose (10/14/2022 12:00 AM EDT) Glucose, POC 117 65 - 199 mg/dL [facility] Comment: Supplemental ranges: <140 mg/dL before meals <180 mg/dL all other times of the day Blood 10/14/2022 10/14/2022 12: 00 AM EDT Mau Marks MD POINT OF CARE TEST O JET Performing Organization Address [facility] Co de Phone Number [facility] [place] [address] * (ABNORMAL) Troponin (10/13/2022 10:45 PM EDT) Troponin-T, High Sensitivity 16(H) <=14 ng/L [facility] Comment: This patient's troponin T concentration [...] troponin value can be found in the [facility] Laboratory Test Catalog Troponin - [facility] Laboratory Test Catalog Reference: Fourth Kimball Definition of Myocardial Infarction. Journal of the [place] [employer] 2018;72:8612-7292 Blood Venous Draw / Unknown 10/13/2022 10:45 PM EDT 10/13/2022 10:54 PM EDT Narrative Resulting Agency Comment Spec In Lab Estee Zeng MD CHEMISTRY ORDERABLES [facility] [place] [address] * (ABNORMAL) Differential, Automated (10/13/2022 10:45 PM EDT) Neutrophil % 80.7 % [facility] Neutrophil Absolute 12.46(H) 1.70 - 6.10 x10(3)/mc L [facility] Lymph % 11.3 % [facility] Lymphocytes Abs 1.7 0.9 - 3.2 x10(3)/mc L [facility] Monocyte % 5.7 % [facility] Monocyte Abs 0.9 0.3 - 0.9 x10(3)/mc L [facility] Eos % 1.0 % [facility] Eosinophils Abs 0.2 0.0 - 0.4 x10(3)/mc L [facility] Basophil % 0.3 % [facility] Baso Absolute 0.0 0.0 - 0.1 x10(3)/mc L [facility] Immature Gran % 1.00 % [facility] Comment: Immature granulocytes(IG's)percentage and absolute count will include metamyelocytes, myelocytes, and promyelocytes. Blood smears from CBCs yielding IG's will be scanned manually for concordance. If this scan disagrees with the automated IG or if promyelocytes are noted, a manual differential will be performed. Immature Gran Absolute 0.16(H) 0.00 - 0.04 x10(3)/mc L [facility] Blood 10/13/2022 10:4 5 PM EDT 10/13/2022 10:54 PM EDT Narrative Resulting Agency Comment Spec In Lab Susan Tee MD HEMATOLOGY ORDERABLE S Performing Organization Address City/[facility]/ZIP Co de Phone Number [facility] [place] [address] * (ABNORMAL) Hemogram (10/13/2022 10:45 PM EDT) White Blood Cell 15.4(H) 4.0 - 9.5 x10(3)/mc L [facility] Red Blood Cell 3.31(L) 4.00 - 5.21 x10(6)/mc L [facility] Hemoglobin 9.2(L) 11.7 - 15.5 g/dL [facility] Hematocrit 27.8(L) 35.7 - 45.8 % [facility] Mean Cell Volume 84.0 82.6 - 94.4 fL [facility] Mean Cell Hemoglobin 27.8 27.1 - 32.0 pg [facility] Mean Cell Hemoglobin Concentration 33.1 31.7 - 35.0 g/dL [facility] Platelet 272 145 - 357 x10(3)/mc L [facility] RDW Standard Deviation 44.8 37.0 - 46.0 fL [facility] RDW coefficient of variation 14.7(H) 11.5 - 14.1 % [facility] Mean Platelet Volume 10.6 7.6 - 12.9 fL [facility] NRBC% auto 0.0 % [facility] NRBC Absolute 0.000 0.000 - 0.000 x10(3)/mc L [facility] Blood 10/13/2022 10:4 5 PM EDT 10/13/2022 10:54 PM EDT Narrative Resulting Agency Comment Spec In Lab Susan Tee MD HEMATOLOGY ORDERABLE S Performing Organization Address City/[facility]/ZIP Co de Phone Number [facility] [place] [address] * (ABNORMAL) Comprehensive metabolic panel (non-fasting) (10/13/2022 10:45 PM EDT) Glucose 121 65 - 199 mg/dL [facility] Comment:Diabetes: >=200 mg/d L plus symptoms Blood Urea Nitrogen 18 8 - 18 mg/dL [facility] Creatinine 0.95 0.70 - 1.20 mg/dL [facility] Sodium 136 135 - 145 mmol/L [facility] Potassium 4.5 3.5 - 5.0 mmol/L [facility] Comment: Please note: ??Patients with WBC >100,000 may have falsely elevated Potassium levels. ??For accurate Potassium quantification in these patients send serum separator tube (gold top) for subsequent determinations. ??Contact the Clinical Chemistry Laboratory if there are any questions. Chloride 104 98 - 107 mmol/L [facility] Carbon Dioxide 22 22 - 31 mmol/L [facility] Anion Gap 10 5 - 15 mmol/L [facility] Calcium 7.9(L) 8.5 - 10.5 mg/dL [facility] Protein, Total 5.5(L) 6.1 - 8.0 g/dL [facility] Albumin 3.2 3.2 - 5.2 g/dL [facility] Aspartate Aminotransferase 21 0 - 30 unit/L [facility] Alanine Aminotransferase 37(H) 0 - 30 unit/L [facility] Alkaline Phosphatase 46 35 - 105 unit/L [facility] Bilirubin, Total 0.8 0.2 - 1.3 mg/dL [facility] Est Glomerular Filtration Rate 83 >=60 mL/min/1. 73 m?? [facility] Comment: This patient's estimated GFR was [...] Marks MD CHEMISTRY ORDERABLES Performing Organization Address City/[facility]/ZIP Co de Phone Number [facility] [place] [address] * POCT Glucose (10/13/2022 9:31 PM EDT) Glucose, POC 129 65 - 199 mg/dL [facility] Comment: Supplemental ranges: <140 mg/dL before meals <180 mg/dL all other times of the day Blood 10/13/2022 9:31 PM EDT 10/13/2022 9:31 PM EDT Mau Marks MD POINT OF CARE TEST O RDERABLES Performing Organization Address [facility] Co de Phone Number [facility] [place] [address] * IR Arterial Intervention (10/13/2022 9:23 PM [...] ??Neftali Morrison Fluoroscopy time: ?? Please see eDH technologist record for noted dose/time Cefazolin/ cefuroxime [...] for an angled Glidewire and the 5 Chinese catheter was advanced into the origin of the left uterine artery. ?? Embolization was performed with a Gelfoam slurry to 5 beats of stasis, confirmed with contrast injection. The 5 Chinese catheter was then withdrawn and used to [...] * POCT Glucose (10/13/2022 6:35 PM EDT) Glucose, POC 79 65 - 199 mg/dL [facility] Comment: Supplemental ranges: <140 mg/dL before meals <180 mg/dL all other times of the day Blood 10/13/2022 6:35 PM EDT 10/13/2022 6:35 PM EDT Mau Marks MD POINT OF CARE TEST O RDERABLES Performing Organization Address City/State/[facility] Co de Phone Number [facility] [place] [address] * (ABNORMAL) Troponin (10/13/2022 6:20 PM EDT) Troponin-T, High Sensitivity 16(H) <=14 ng/L [facility] Comment: This patient's troponin T concentration [...] troponin value can be found in the [facility] Laboratory Test Catalog Troponin - [facility] Laboratory Test Catalog Reference: Fourth Kimball Definition of Myocardial Infarction. Journal of the [place] [employer] 2018;72:2669-2992 Blood 10/13/2022 6:20 PM EDT 10/13/2022 6:34 PM EDT Narrative Resulting Agency Comment Spec In Lab Estee Zeng MD CHEMISTRY ORDERABLES Performing Organization Address City/[facility] Co de Phone Number [facility] [place] [address] * EKG 12 Lead (10/13/2022 6:19 PM EDT) Ventricular rate 89 BPM MUSE SYSTEM Atrial Rate 89 BPM MUSE SYSTEM P-R Interval 174 ms MUSE SYSTEM QRS Duration 70 ms MUSE SYSTEM Q-T Interval 334 ms MUSE SYSTEM QTC Calculated (Bezet) 406 ms MUSE SYSTEM Calculated P [place] 66 degrees MUSE SYSTEM Calculated R [place] 34 degrees MUSE SYSTEM Calculated T [place] 31 degrees MUSE SYSTEM INTERPRETATION Normal sinus rhythm Low voltage QRS Cannot rule out Anterior infarct ??(due to low voltage) Abnormal ECG No previous ECGs available Confirmed by MD Wright Danette ([id number]) on 10/14/2022 4:31:06 PM MUSE SYSTEM 10/13/2022 6:19 PM EDT 10/14/2022 4:31 PM EDT Estee Zeng MD ECG ORDERABLES Performing Organization Address [facility] Co de Phone Number MUSE SYSTEM * D-Dimer, Quantitative (10/13/2022 4:50 PM EDT) Pathologist [facility] D-Dimer 411 0 - 500 FEU ng/ml [facility] Comment: The D-Dimer assay is used [...] MD HEMATOLOGY ORDERABLE S Performing Organization Address [facility] Co de Phone Number [facility] [place] [address] * Thrombin time (10/13/2022 4:50 PM EDT) [facility] Thrombin Time 16 10 - 17 sec [facility] Comment: Specimen drawn more than one [...] MD HEMATOLOGY ORDERABLE S Performing Organization Address [facility] Co de Phone Number [facility] [place] [address] * Fibrinogen (10/13/2022 4:50 PM EDT) [facility] Fibrinogen 293 200 - 393 mg/dL [facility] Comment: A fibrinogen level >100 mg/dL is adequate for hemostasis in most patients without underlying bleeding disorders. Blood No Charge / Unknown 10/13/2022 4:50 PM EDT 10/13/2022 5:26 PM EDT Narrative Resulting Agency Comment Spec In Lab Mau Marks MD HEMATOLOGY ORDERABLE S Performing Organization Address City/[facility] Co de Phone Number [facility] [place] [address] * (ABNORMAL) APTT (10/13/2022 4:50 PM EDT) [facility] Partial Thromboplastin Time 24(L) 25 - 37 sec [facility] Comment: The PTT is NOT appropriate for heparin monitoring. Use the Anti-Xa level for heparin monitoring (HEP UFH) or LMWH monitoring (HEP LMW). A PTT less than 37 seconds generally indicates adequate hemostasis. Blood No Charge / Unknown 10/13/2022 4:50 PM EDT 10/13/2022 5:26 PM EDT Narrative Resulting Agency Comment Spec In Lab Mau Marks MD HEMATOLOGY ORDERABLE S Performing Organization Address [facility] Co de Phone Number [facility] [place] [address] * Prothrombin Time (10/13/2022 4:50 PM EDT) Prothrombin Time 10.9 9.4 - 12.5 sec [facility] International Normalization Ratio 1.0 [facility] Comment: An INR <2.0 indicates adequate [...] MD HEMATOLOGY ORDERABLE S Performing Organization Address [facility] Co de Phone Number [facility] [place] [address] * TSH Pearl (10/13/2022 4:50 PM EDT) Thyroid Stimulating Hormone 1.42 0.27 - 4.20 mcIU/mL [facility] Comment: Reference Interval (mcIU/mL): Females: ??First Trimester: 0.23-3.88 ??Second Trimester: 0.22-3.90 ??Third Trimester: 0.44-4.66 Blood No Charge / Unknown 10/13/2022 4:50 PM EDT 10/13/2022 5:25 PM EDT Narrative Resulting Agency Comment Spec In Lab Estee Zeng MD CHEMISTRY ORDERABLES Performing Organization Address City/[facility]/ZIP Co de Phone Number [facility] [place] [address] * pro-Brain Natriuretic Peptide (10/13/2022 4:50 PM EDT) NT-proBNP <36 <=124 pg/mL [facility] Blood No Charge / Unknown 10/13/2022 4:50 PM EDT 10/13/2022 5:25 PM EDT Narrative Resulting Agency Comment Spec In Lab Estee Zeng MD CHEMISTRY ORDERABLES Performing Organization Address City/[facility] Co de Phone Number [facility] [place] [address] * Lipase (10/13/2022 4:50 PM EDT) Pathologist [facility] Lipase 50 0 - 60 unit/L [facility] Blood No Charge / Unknown 10/13/2022 4:50 PM EDT 10/13/2022 5:25 PM EDT Narrative Resulting Agency Comment Spec In Lab Estee Zeng MD CHEMISTRY ORDERABLES Performing Organization Address [facility] Co de Phone Number [facility] [place] [address] * (ABNORMAL) Hepatic Function Panel (10/13/2022 4:50 PM EDT) Protein, Total 5.9(L) 6.1 - 8.0 g/dL [facility] Albumin 3.4 3.2 - 5.2 g/dL [facility] Aspartate Aminotransferase 22 0 - 30 unit/L [facility] Alanine Aminotransferase 38(H) 0 - 30 unit/L [facility] Alkaline Phosphatase 51 35 - 105 unit/L [facility] Bilirubin, Total 0.3 0.2 - 1.3 mg/dL [facility] Bilirubin, Direct 0.1 0.0 - 0.3 mg/dL [facility] Blood No Charge / Unknown 10/13/2022 4:50 PM EDT 10/13/2022 5:25 PM EDT Narrative Resulting Agency Comment Spec In Lab Estee [place]eng [place] [address] * (ABNORMAL) Differential, Automated (10/13/2022 4:50 PM EDT) Neutrophil % 62.1 % [facility] Neutrophil Absolute 6.11(H) 1.70 - 6.10 x10(3)/mc L [facility] Lymph % 25.4 % [facility] Lymphocytes Abs 2.5 0.9 - 3.2 x10(3)/mc L [facility] Monocyte % 8.1 % [facility] Monocyte Abs 0.8 0.3 - 0.9 x10(3)/mc L [facility] Eos % 3.1 % [facility] Eosinophils Abs 0.3 0.0 - 0.4 x10(3)/ L [facility] Basophil % 0.3 % [facility] Baso Absolute 0.0 0.0 - 0.1 x10(3)/mc L [facility] Immature Gran % 1.00 % [facility] Comment: Immature granulocytes(IG's)percentage and absolute count will include metamyelocytes, myelocytes, and promyelocytes. Blood smears from CBCs yielding IG's will be scanned manually for concordance. If this scan disagrees with the automated IG or if promyelocytes are noted, a manual differential will be performed. Immature Gran Absolute 0.10(H) 0.00 - 0.04 x10(3)/mc L [facility] Blood No Charge / Unknown 10/13/2022 4:50 PM EDT 10/13/2022 5:26 PM EDT Narrative Resulting Agency Comment Spec In Lab Estee Zeng MD HEMATOLOGY ORDERABLE S [facility] [place] [address] * (ABNORMAL) Hemogram (10/13/2022 4:50 PM EDT) White Blood Cell 9.8(H) 4.0 - 9.5 x10(3)/mc L [facility] Red Blood Cell 3.01(L) 4.00 - 5.21 x10(6)/mc L [facility] Hemoglobin 8.3(L) 11.7 - 15.5 g/dL [facility] Hematocrit 25.7(L) 35.7 - 45.8 % [facility] Mean Cell Volume 85.4 82.6 - 94.4 fL [facility] Mean Cell Hemoglobin 27.6 27.1 - 32.0 pg [facility] Mean Cell Hemoglobin Concentration 32.3 31.7 - 35.0 g/dL [facility] Platelet 314 145 - 357 x10(3)/mc L [facility] RDW Standard Deviation 46.4(H) 37.0 - 46.0 fL [facility] RDW coefficient of variation 14.9(H) 11.5 - 14.1 % [facility] Mean Platelet Volume 11.1 7.6 - 12.9 fL [facility] NRBC% auto 0.0 % [facility] NRBC Absolute 0.000 0.000 - 0.000 x10(3)/mc L [facility] Blood No Charge / Unknown 10/13/2022 4:50 PM EDT 10/13/2022 5:26 PM EDT Narrative Resulting Agency Comment Spec In Lab Estee Zeng MD HEMATOLOGY ORDERABLE S Performing Organization Address City/State/[facility] Co de Phone Number [facility] [place] [address] * Beta HCG, quantitative (10/13/2022 4:50 PM EDT) Beta Human Chorionic Gonadotropin, Quantitative <1 mlU/ML [facility] Comment: REFERENCE RANGES NON- FEMALE: ??Less [...] - 56,451 ?17 weeks ? 8,175 - 12,868 ?18 weeks ? 8,099 - 03,176 This result was generated using a Maxim Tim immunoassay. ??Results obtained from other methods or manufacturers cannot be used interchangeably with this method. Blood No Charge / Unknown 10/13/2022 4:50 PM EDT 10/13/2022 5:25 PM EDT Narrative Resulting Agency Comment Spec In Lab Estee Zeng MD CHEMISTRY ORDERABLES Performing Organization Address City/State/[facility] Co de Phone Number [facility] [place] [address] * (ABNORMAL) Basic Metabolic Panel (non-fasting) (10/13/2022 4:50 PM EDT) Glucose 73 65 - 199 mg/dL [facility] Comment:Diabetes: >=200 mg/d L plus symptoms Blood Urea Nitrogen 19(H) 8 - 18 mg/dL [facility] Creatinine 1.09 0.70 - 1.20 mg/dL [facility] Sodium 137 135 - 145 mmol/L [facility] Potassium 4.7 3.5 - 5.0 mmol/L [facility] Comment: Please note: ??Patients with WBC >100,000 may have falsely elevated Potassium levels. ??For accurate Potassium quantification in these patients send serum separator tube (gold top) for subsequent determinations. ??Contact the Clinical Chemistry Laboratory if there are any questions. Chloride 104 98 - 107 mmol/L [facility] Carbon Dioxide 24 22 - 31 mmol/L [facility] Anion Gap 9 5 - 15 mmol/L [facility] Calcium 8.5 8.5 - 10.5 mg/dL [facility] Est Glomerular Filtration Rate 70 >=60 mL/min/1. 73 m?? [facility] Comment: This patient's estimated GFR was [...] Zeng MD CHEMISTRY ORDERABLES Performing Organization Address City/[facility] Co de Phone Number [facility] [place] [address] * Lavender Tube HOLD (10/13/2022 4:50 PM EDT) Lavender Hold Sample in lab. [facility] Blood No Charge / Unknown 10/13/2022 4:50 PM EDT 10/13/2022 5:26 PM EDT Jase Lopez MD HEMATOLOGY ORDERABLE S Performing Organization Address [facility] Co de Phone Number [facility] [place] [address] * Blue Tube HOLD (10/13/2022 4:50 PM EDT) Blue Hold Sample in lab. [facility] Blood No Charge / Unknown 10/13/2022 4:50 PM EDT 10/13/2022 5:26 PM EDT Jase Lopez MD HEMATOLOGY ORDERABLE S Performing Organization Address City/[facility]/ZIP Co de Phone Number [facility] [place] [address] * Green Tube HOLD (10/13/2022 4:50 PM EDT) Green Hold Sample in lab. [facility] Blood No Charge / Unknown 10/13/2022 4:50 PM EDT 10/13/2022 5:25 PM EDT Jase Lopez MD CHEMISTRY ORDERABLES Performing Organization Address City/[facility] Co de Phone Number [facility] [place] [address] * Gold Tube HOLD (10/13/2022 4:50 PM EDT) Gold Hold Sample in lab. [facility] Blood No Charge / Unknown 10/13/2022 4:50 PM EDT 10/13/2022 5:25 PM EDT Jase Lopez MD CHEMISTRY ORDERABLES Performing Organization Address [facility] [place] [place] [address] * Prepare RBC (10/13/2022 4:45 PM EDT) Dispensed? Yes [facility] Blood 10/13/2022 4:45 PM EDT 10/13/2022 4:46 PM EDT Estee Zeng MD BLOOD BANK PRODUCT O RDERABLES Performing Organization Address City/[facility] [place] [place] [address] * Type and Screen Validity (10/13/2022 4:40 PM EDT) T&S only valid at [facility]ATORY Comment:This Type and Screen result is only valid at the [facility] Blood 10/13/2022 4:40 PM EDT 10/13/2022 5:23 PM EDT Narrative Resulting Agency Comment Spec In Lab Jase Lopez MD BLOOD BANK LAB ORDER SANDY Performing Organization Address City/[facility]/ZIP Co de Phone Number [facility] [place] [address] * ABORH Recheck Status (10/13/2022 4:40 PM EDT) ABORH Recheck Order Order Placed [facility] ABORH Type Recheck Complete [facility] Blood 10/13/2022 4:40 PM EDT 10/13/2022 5:23 PM EDT Narrative Resulting Agency Comment Spec In Lab Jase Lopez MD BLOOD BANK LAB ORDER SANDY [facility] [place] [address] * Antibody screen (10/13/2022 4:40 PM EDT) Ab Screen Interp Negative [facility] Expires at 2359 on: 10/16/2022 [facility] Blood 10/13/2022 4:40 PM EDT 10/13/2022 5:23 PM EDT Narrative Resulting Agency Comment Spec In Lab Jase Lopez MD BLOOD BANK LAB ORDER SANDY [facility] [place] [address] * ABO/Rh Typing (10/13/2022 4:40 PM EDT) ABORH Type O Pos [facility] Blood 10/13/2022 4:40 PM EDT 10/13/2022 5:23 PM EDT Narrative Resulting Agency Comment Spec In Lab Jase Lopez MD BLOOD BANK LAB ORDER SANDY [facility] [place] [address] * POCT Glucose (10/13/2022 4:38 PM EDT) Glucose, POC 73 65 - 199 mg/dL [facility] Comment: Supplemental ranges: <140 mg/dL before meals <180 mg/dL all other times of the day Blood 10/13/2022 4:38 PM EDT 10/13/2022 4:38 PM EDT Emergency Dept POINT OF CARE TEST ORDERABLES [facility] [place] [address] * SCAN DOC: LAB (10/13/2022 12:00 AM [...] (Given - Provider: Prabha De Souza RN) 0826 (Given - Provider: Kaya Godfrey RN) chlorproMAZINE (Thorazine) tablet 200 mg 200 mg, Oral, NIGHTLY, First dose (after last modification) on Wed10/15/22 at 2100, Until Discontinued, Routine doxepin (SINEquan) capsule 10 mg 10 mg, Oral, NIGHTLY, First dose on Wed10/14/22 at 2145, Until Discontinued, Routine 2141 (Given - Provider: Felipa Alamo, RN) empagliflozin (Jardiance) tablet 10 mg 10 mg, [...] a continuation of therapy from home? Yes 822 (Given - Provider: Kaya Godfrey RN) estrogens (conjugated) (Premarin) (5 mg/mL) injection 25 mg (COMPLETED) 25 mg, Intravenous, ONCE, 1 dose, On Wed10/13/22 at 1748, STAT 1811 (Given - Provider: Estephania Baird RN) furosemide (Lasix) tablet 40 mg 40 mg, Oral, DAILY, First dose on Wed10/15/22 at 0900, Until Discontinued, Routine 821 (Given - Provider: Kaya Godfrey RN) gabapentin (Neurontin) capsule 300 mg 300 mg, Oral, 3 TIMES DAILY, First dose on Wed10/15/22 at 0900, Until Discontinued, Routine 821 (Given - Provider: Kaya Godfrey RN)1538 (Given - Provider: Kaya Godfrey RN) insulin glargine-ygfn (Semglee) (100 unit/mL) subcutaneous injection vial 12 Units 12 Units, Subcutaneous, 2 TIMES DAILY, First dose (after last modification) on Wed10/14/22 at 2145, Until Discontinued, Routine 2141 (Given - Provider: Felipa Alamo, RN) 08 (Given - Provider: Kaya Godfrey, TOM) insulin lispro (HumaLOG;Admelog) (100 unit/mL) subcutaneous injection [...] Souza RN)1707 (Given - Provider: Sandra Springer LPN)2005 (Given - Provider: Felipa Alamo RN - [...] area)2332 (JUL Unhold - Provider: Admin Adt) 0011 (Not Given - Provider: Felipa Alamo RN [...] on Wed10/14/22 at 2145, Until Discontinued, Routine 211 (Given - Provider: Felipa Alamo RN) Continuous [...] PRN, Starting on Wed10/14/22 at 2044, Until Christa 10/15/22 at 0653, Anxiety, insomnia, Routine 211 (Given - Provider: Marilee Alamo RN) chlorproMAZINE [...] from all sources in 24 hours, Routine 1810 (Given - Provider: Ryan De Souza RN) [...] Routine documented in this encounter Care Teams Adapted Physical Education Teacher Relationship Specialty Start Date End Date Lia Pearson APRN [address] [place] [address] PCP - General Geriatric Medicine 02/09/22 documented as of this encounter
--- OUTSIDE RECORDS SUMMARY | 2024-02-13 18:04 | XMS_ITS | Encounter Summary ---
Author Organization [facility] Address [facility] [place] [address] Care Team Providers Care Delimer Name Role Phone Lia Pearson APRN Primary Care Provider [phone] Encounter Details Date Type Department Care Team (Late st Contact Info) Description 10/13/2022 Notes Only Obstetric[place] [address] Sabrina Swain MD [facility] DR OBSTETRICS [place] [address] Social History Tobacco Use Types Packs/Day Years [...] 10/13/2022 2:52 PM EDT TC received via [facility] from [facility] ED. 32 yo known to me, [...] can, buy fresh vegetables and fruit from [employer] market-sent message with resources -Choose whole grain [...] Note: Practice STOP and Urge Surfing. Health Claims Adjuster Supervisor will send hand-outs. Movement Lifestyle On track( 1:14 PM EDT) Riddhi Buchanan RD Note: Continue to walk stairs and walks when can. Will continue using stairs as it's colder. Look into finding weights free online or at [employer]. Could use water-filled milk jugs as weights-a full gallon jug would be 8 lbs. Will look into nearby rec center 04/16/22 NATHALIA documented as of this encounter Visit Diagnoses Not on filedocumented in this encounter Care Teams Delimer Relationship Specialty Start Date End Date Lia Pearson APRN [address] [place] [address] PCP - General Geriatric Medicine 02/09/22 documented as of this encounter
--- OUTSIDE RECORDS SUMMARY | 2024-02-13 18:04 | XMS_ITS | Encounter Summary ---
[place] [address] Care Team Providers Care Farm Field Manager Name Role Phone Lia Pearson APRN Primary Care Provider [phone] [phone] Encounter Details Date Type Department Care Team (Late st Contact Info) Description 09/25/2022 Telephone Obstetrics [place] [phone] Debby Keen Social History Tobacco Use Types [...] can, buy fresh vegetables and fruit from [employer] market-sent message with resources -Choose whole grain [...] Note: Practice STOP and Urge Surfing. Health Executive Administrator will send hand-outs. Movement Lifestyle On track( 023 1:14 PM EDT) Riddhi Buchanan RD Note: Continue to walk stairs and walks when can. Will continue using stairs as it's colder. Look into finding weights free online or at [employer] stores. Could use water-filled milk jugs as weights-a full gallon jug would be 8 lbs. Will look into nearby rec center 04/16/22 NATHALIA documented as of this encounter Visit Diagnoses Not on filedocumented in this encounter Care Teams Farm Field Manager Relationship Specialty Start Date End Date Lia Pearson APRN [address] [place] [address] PCP - General Geriatric Medicine 02/09/22 documented as of this encounter
--- OUTSIDE RECORDS SUMMARY | 2024-02-13 18:04 | XMS_ITS | Encounter Summary ---
Author Organization [facility] Address [facility] [place] [address] Care Team Providers Care Vp Human Resources Name Role Phone Lia Pearson APRN Primary Care Provider [phone] [phone] Encounter Details Date Type Department Care Team (Late st Contact Info) Description 10/13/2022 2:30 PM EDT Ancillary Procedure Radiology Library at [facility] [place] [address] Sabrina Swain MD [facility] OBSTETRICS [place] [address] Social History Tobacco Use Types Packs/Day Years [...] Note: Practice STOP and Urge Surfing. Health Refinery Operator Alkylation will send hand-outs. Movement Lifestyle On track( 023 1:14 PM EDT) Riddhi Buchanan RD Note: Continue to walk stairs and walks when can. Will continue using stairs as it's colder. Look into finding weights free online or at [employer] stores. Could use water-filled milk jugs as [...] And Spine (10/13/2022 2:22 PM EDT) Narrative DH RAD - 10/13/2022 2:22 PM EDT This exam is auto-finalizing. It's purpose is for storage only. Sabrina Swain MD IMG FILM LIBRARY ORD ERABLES [place], [place] documented in this encounter Visit Diagnoses Not on filedocumented in this encounter Care Teams Vp Human Resources Relationship Specialty Start Date End Date Lia Pearson APRN [address] [place] [address] PCP - General Geriatric Medicine 02/09/22 documented as of this encounter
--- OUTSIDE RECORDS SUMMARY | 2024-02-13 18:04 | XMS_ITS | Encounter Summary ---
Author Organization [facility] Address [facility] [place] [address] Care Team Providers Care Corporation Lawyer Name Role Phone Lia Pearson APRN Primary Care Provider [phone] [phone] Encounter Details Date Type Department Care Team (Late st Contact Info) Description 10/13/2022 2:25 PM EDT Ancillary Procedure Radiology Library at [facility] [place] [address] Sabrina Swain MD [facility] OBSTETRICS [place] [address] Social History Tobacco Use Types Packs/Day Years [...] Practice STOP and Urge Surfing. Health Net Front End Developer will send hand-outs. Movement Lifestyle On track( 023 1:14 PM EDT) Riddhi Buchanan RD Note: Continue to walk stairs and walks when can. Will continue using stairs as it's colder. Look into finding weights free online or at [employer] stores. Could use water-filled milk jugs as [...] Ultrasound Study (10/13/2022 2:21 PM EDT) Narrative DH RAD - 10/13/2022 2:21 PM EDT This exam is auto-finalizing. It's purpose is for storage only. Sabrina Swain MD IMG FILM LIBRARY ORD ERABLES [facility] [place], [place] documented in this encounter Visit Diagnoses Not on filedocumented in this encounter Care Teams Corporation Lawyer Relationship Specialty Start Date End Date Lia Pearson APRN [address] [place] [address] PCP - General Geriatric Medicine 02/09/22 documented as of this encounter
--- OUTSIDE RECORDS SUMMARY | 2024-02-13 18:04 | XMS_ITS | Encounter Summary ---
Author Organization [facility] [place] [address] Care Team Providers Care Automotive Collision Repair Instructor Name Role Phone Lia Pearson APRN Primary Care Provider [phone] Reason for Visit * Reason Comments Medication Refill Encounter Details Date Type Department Care Team (Late st Contact Info) Description 05/06/2022 Refill Obstetrics [place] [address] [facility] DR OBSTETRICS & [place] [address] Abnormal uterine bleeding (AUB) Social History Tobacco [...] Note: Practice STOP and Urge Surfing. Health Automatic Chief will send hand-outs. Movement Lifestyle On track( 023 1:14 PM EDT) Riddhi Buchanan RD Note: Continue to walk stairs and walks when can. Will continue using stairs as it's colder. Look into finding weights free online or at [employer] stores. Could use water-filled milk jugs as weights-a full gallon jug would be 8 lbs. Will look into nearby rec center 04/16/22 NATHALIA documented as of this encounter Visit Diagnoses Diagnosis Abnormal uterine bleeding (AUB) documented in this encounter Care Teams Automotive Collision Repair Instructor Relationship Specialty Start Date End Date Lia Pearson APRN [address] [place] [address] PCP - General Geriatric Medicine 02/09/22 documented as of this encounter
--- OUTSIDE RECORDS SUMMARY | 2024-02-13 18:04 | XMS_ITS | Encounter Summary ---
[place] [address] Care Team Providers Care Emergency Response Officer Name Role Phone Lia Pearson APRN Primary Care Provider [phone] Encounter Details Date Type Department Care Team (Late st Contact Info) Description 09/21/2022 Telephone Obstetrics [place] [phone] Siena Fuller, RN Social History Tobacco Use [...] for evaluation. Patient plans to go to [facility] Emergency Department tonight. She will have [...] can, buy fresh vegetables and fruit from [employer] market-sent message with resources -Choose whole grain [...] Note: Practice STOP and Urge Surfing. Health Pega Developer will send hand-outs. Movement Lifestyle On track( 023 1:14 PM EDT) Riddhi Buchanan RD Note: Continue to walk stairs and walks when can. Will continue using stairs as it's colder. Look into finding weights free online or at [employer] stores. Could use water-filled milk jugs as weights-a full gallon jug would be 8 lbs. Will look into nearby rec center 04/16/22 NATHALIA documented as of this encounter Visit Diagnoses Not on filedocumented in this encounter Care Teams Emergency Response Officer Relationship Specialty Start Date End Date Lia Pearson APRN [address] [place] [address] PCP - General Geriatric Medicine 02/09/22 documented as of this encounter
--- OUTSIDE RECORDS SUMMARY | 2024-02-13 18:04 | XMS_ITS | Encounter Summary ---
Author Organization [place] [address] Care Team Providers Care Channel Business Manager Name Role Phone Lia Pearson APRN Primary Care Provider [phone] [phone] Encounter Details Date Type Department Care Team (Late st Contact Info) Description 06/02/2022 Notes Only Weight and Wellness at [address] [address] Jenni Waller MD [facility] [address] [facility] [place] [address] Social History Tobacco Use Types Packs/Day Years [...] 06/02/2022 4:[address] Mast from [facility] contacted me. (Transferred to her care [...] can, buy fresh vegetables and fruit from [employer]-sent message with resources -Choose whole grain options [...] Note: Practice STOP and Urge Surfing. Health Clinical Quality Rn will send hand-outs. Movement Lifestyle On track( 1:14 PM EDT) Riddhi Buchanan RD Note: Continue to walk stairs and walks when can. Will continue using stairs as it's colder. Look into finding weights free online or at [employer] stores. Could use water-filled milk jugs as weights-a full gallon jug would be 8 lbs. Will look into nearby [facility] center 04/16/22 NATHALIA documented as of this encounter Visit Diagnoses Not on filedocumented in this encounter Care Teams Channel Business Manager Relationship Specialty Start Date End Date Lia Pearson APRN [address] [place] [address] PCP - General Geriatric Medicine 02/09/22 documented as of this encounter
--- OUTSIDE RECORDS SUMMARY | 2024-02-13 18:04 | XMS_ITS | Encounter Summary ---
[place] [address] Care Team Providers Care Permit Coordinator Name Role Phone Lia Pearson APRN Primary Care Provider [phone] Encounter Details Date Type Department Care Team [...] Note: Practice STOP and Urge Surfing. Health Seat Joiner Chainstitch will send hand-outs. Movement Lifestyle On track( 023 1:14 PM EDT) Riddhi Buchanan RD Note: Continue to walk stairs and walks when can. Will continue using stairs as it's colder. Look into finding weights free online or at [employer] stores. Could use water-filled milk jugs as weights-a full gallon jug would be 8 lbs. Will look into nearby rec center 04/16/22 NATHALIA documented as of this encounter Visit Diagnoses Not on filedocumented in this encounter Care Teams Permit Coordinator Relationship Specialty Start Date End Date Lia Pearson APRN [address] [place] [address] PCP - General Geriatric Medicine 02/09/22 documented as of this encounter
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
--- OUTSIDE RECORDS SUMMARY | 2024-02-13 18:04 | XMS_ITS | Encounter Summary ---
[facility] Organization [facility] [place] [address] Care Team Providers Care Management Trainee Program Stores Name Role Phone Lia Pearson JULIO C Primary Care Provider +1 [phone] Encounter Details Date Type Department Care Team (Late st Contact Info) Description 05/05/2022 Orders Only Obstetrics [place] [address] Miriam Treadwell A/C TECH [facility] OBSTETRICS [place] [address] Abnormal uterine bleeding (AUB) Social History Tobacco [...] Note: Practice STOP and Urge Surfing. Health Eligibility Specialist will send hand-outs. Movement Lifestyle On track( 023 1:14 PM EDT) Riddhi Buchanan RD Note: Continue to walk stairs and walks when can. Will continue using stairs as it's colder. Look into finding weights free online or at [employer] stores. Could use water-filled milk jugs as weights-a full gallon jug would be 8 lbs. Will look into nearby rec center 04/16/22 NATHALIA documented as of this encounter Visit Diagnoses Diagnosis Abnormal uterine bleeding (AUB) documented in this encounter Care Teams Management Trainee Program Stores Relationship Specialty Start Date End Date Lia Pearson APRN [address] [place] [address] PCP - General Geriatric Medicine 9/26/22 documented as of this encounter
--- OUTSIDE RECORDS SUMMARY | 2024-02-13 18:04 | XMS_ITS | Encounter Summary ---
[place] [address] Care Team Providers Care Advertising Editor Name Role Phone Lia Pearson APRN Primary Care Provider +1 [phone] Encounter Details Date Type Department Care Team (Late st Contact Info) Description 03/11/2022 Telephone Weight and Wellness at [address] [address] Angela Pruett, [place] [address] Social History Tobacco Use Types Packs/Day Years [...] can, buy fresh vegetables and fruit from [employer] market-sent message with resources -Choose whole grain options if available -When having a snack, focus on protein Bariatric behaviors Lifestyle On track( 1:14 PM EDT) Riddhi Bcuhanan RD Note: Eating Slowly and taking 20-30 [...] Note: Practice STOP and Urge Surfing. Health Ditch Digger will send hand-outs. Movement Lifestyle On track( 1:14 PM EDT) Riddhi Buchanan RD Note: Continue to walk stairs and walks when can. Will continue using stairs as it's colder. Look into finding weights free online or at thrift stores. Could use water-filled milk jugs as weights-a full gallon jug would be 8 lbs. Will look into nearby [facility] 04/16/22 NATHALIA documented as of this encounter Visit Diagnoses Not on filedocumented in this encounter Care Teams Advertising Editor Relationship Specialty Start Date End Date Lia Pearson APRN [address] [place] [address] PCP - General Geriatric Medicine 02/09/22 documented as of this encounter
--- OUTSIDE RECORDS SUMMARY | 2024-02-13 18:04 | XMS_ITS | Encounter Summary ---
[place] [address] Care Team Providers Care Senior Speech Pathologist Name Role Phone Lia Pearson APRN Primary Care Provider +1 [phone] Encounter Details Date Type Department Care Team (Late st Contact Info) Description 09/22/2022 Telephone Obstetrics [place] [phone] Siena Fuller, RN Social History Tobacco Use [...] can, buy fresh vegetables and fruit from [employer]-sent message with resources -Choose whole grain options [...] Note: Practice STOP and Urge Surfing. Health Psych Nurse will send hand-outs. Movement Lifestyle On track( 023 1:14 PM EDT) Riddhi Buchanan RD Note: Continue to walk stairs and walks when can. Will continue using stairs as it's colder. Look into finding weights free online or at [employer] stores. Could use water-filled milk jugs as weights-a full gallon jug would be 8 lbs. Will look into nearby rec center 04/16/22 NATHALIA documented as of this encounter Visit Diagnoses Not on filedocumented in this encounter Care Teams Senior Speech Pathologist Relationship Specialty Start Date End Date Lia Pearson APRN [address] [place] [address] PCP - General Geriatric Medicine 02/09/22 documented as of this encounter
--- OUTSIDE RECORDS SUMMARY | 2024-02-13 18:04 | XMS_ITS | Encounter Summary ---
[place] [address] Care Team Providers Care Agricultural Education Teacher Name Role Phone Lia Pearson APRN Primary Care Provider +1 [phone] Encounter Details Date Type Department Care Team (Late st Contact Info) Description 10/06/2022 Telephone Obstetrics [place] [phone] Sissy Rodriguez Social History Tobacco Use Types [...] Note: Practice STOP and Urge Surfing. Health Lead Cashier will send hand-outs. Movement Lifestyle On track( 023 1:14 PM EDT) Riddhi Buchanan RD Note: Continue to walk stairs and walks when can. Will continue using stairs as it's colder. Look into finding weights free online or at [employer] stores. Could use water-filled milk jugs as weights-a full gallon jug would be 8 lbs. Will look into nearby rec center 04/16/22 NATHALIA documented as of this encounter Visit Diagnoses Not on filedocumented in this encounter Care Teams Agricultural Education Teacher Relationship Specialty Start Date End Date Lia Pearson APRN [address] [place] [address] PCP - General Geriatric Medicine 02/09/22 documented as of this encounter
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
--- OUTSIDE RECORDS SUMMARY | 2024-02-13 18:04 | XMS_ITS | Encounter Summary ---
Author Organization [facility] [address] Care Team Providers Care Business Librarian Name Role Phone Lia Pearson APRN Primary Care Provider [phone] [phone] Encounter Details Date Type Department Care Team (Late st Contact Info) Description 04/16/2022 10:45 AM EST TH Visit (TeleHealth) Weight and Wellness at [address] [address] Riddhi Wilson, RD [facility] [address] Class 3 severe obesity with body mass [...] past visits. Please reach out with a [facility] message if you have any questions or [...] into finding weights free online or at [employer] stores. Could use water-filled milk jugs as weights-a full gallon jug would be 8 lbs. Will look into nearby [facility] 04/16/22 NATHALIA Other (Enter personal goal) -Add peanut butter to oatmeal -Continue to add beans to meals as a source of protein and fiber -If can, buy fresh vegetables and fruit from [employer] market-sent message with resources -Choose whole grain options if available -When having a snack, focus on protein Self-awareness, body cues Practice STOP and Urge Surfing. Health Bulk Plant Operator will send hand-outs. documented in this encounter [...] nuts, trail mix. Still successful using food [employer] and grocery store. Discussed added sugars in [...] Loss History: See previous notes from this technical writer and editor and [facility] provider for full account Typical Dietary Intake: See previous notes from this technical writer and editor B: L: D: S: Typical Beverages: [] coffee (Cups per day: [] half and half (unflavored) [] flavored creamer (sugar) [] flavored creamer (sugar-free) [] added sugar - (total: [] added non-caloric sweetener [x] water - (total: [x] plain [x] crystal light or other sugar-free additive- 8 oz/day [] [place] [] Alcohol (Amount per week: [] Diet [...] into finding weights free online or at [employer] stores. o Could use water-filled milk jugs [...] cues Practice STOP and Urge Surfing. Health Bulk Plant Operator will send hand-outs. Bariatric eating behaviors introduced [...] into finding weights free online or at [employer]. o Could use water-filled milk jugs as weights-a full gallon jug would be 8 lbs. ??? Will look into nearby rec center 04/16/22 NATHALIA ??? Other (Enter personal goal) On track -Add peanut butter to oatmeal -Continue to add beans to meals as a source of protein and fiber -If can, buy fresh vegetables and fruit from [employer]-sent message with resources -Choose whole grain options if available -When having a snack, focus on protein Monitor/Evaluate: [x] Needs additional fuv scheduled with this technical writer and editor: Return in about 7 weeks (around 06/04/2022) for BSP, FUV, Telehealth. Above determined to the best ability of this technical writer and editor. Patient will contact bariatric surgery team for [...] can, buy fresh vegetables and fruit from [employer]-sent message with resources -Choose whole grain options [...] Note: Practice STOP and Urge Surfing. Health Bulk Plant Operator will send hand-outs. Movement Lifestyle On track( 023 1:14 PM EDT) Riddhi Buchanan RD Note: Continue to walk stairs and walks when can. Will continue using stairs as it's colder. Look into finding weights free online or at [employer] stores. Could use water-filled milk jugs as weights-a full gallon jug would be 8 lbs. Will look into nearby rec center 04/16/22 NATHALIA documented as of this encounter Visit Diagnoses Diagnosis Class 3 severe obesity with body mass index (BMI) greater than or equal to 70 in adult, unspecified obesity type, unspecified whether serious comorbidity present documented in this encounter Care Teams Business Librarian Relationship Specialty Start Date End Date Lia Pearson APRN [address] [place] [address] PCP - General Geriatric Medicine 02/09/22 documented as of this encounter
--- OUTSIDE RECORDS SUMMARY | 2024-02-13 18:04 | XMS_ITS | Encounter Summary ---
Author Organization [facility] [place] [address] Care Team Providers Care Director Of Undergraduate Admissions Name Role Phone Lia Pearson APRN Primary Care Provider [phone] [phone] Encounter Details Date Type Department Care Team (Latest Contact Info) Description 07/21/2022 12:00 PM EST TH Visit (TeleHealth) [place] [phone] Raisa Vallejo, PhD [facility] [address] [facility] [address] Schizoaffective disorder, unspecified type Social History Tobacco [...] BARIATRIC SURGERY PSYCHOLOY FOLLOW UP NOTE N [facility] WEIGHT AND WELLNESS AT [facility] [address] Dept: [phone] Loc: [phone] 07/21/2022 12:06 PM Zenia Worley is a [...] visit they were located at [place] in [place]. Zenia Worley is aware that for any urgent matter they can call [phone].. RECOMMENDATION BASED ON PSYCHOLOGICAL EVALUATION YELLOW - [...] mental health problems earlier in life. 4. eZnia is not engaging in problematic eating behaviors. [...] can, buy fresh vegetables and fruit from [employer]-sent message with resources -Choose whole grain options [...] Note: Practice STOP and Urge Surfing. Health Toilet Products Molder will send hand-outs. Movement Lifestyle On track( 023 1:14 PM EDT) Riddhi Buchanan RD Note: Continue to walk stairs and walks when can. Will continue using stairs as it's colder. Look into finding weights free online or at [employer] stores. Could use water-filled milk jugs as weights-a full gallon jug would be 8 lbs. Will look into nearby rec center 04/16/22 NATHALIA documented as of this encounter Visit Diagnoses Diagnosis Schizoaffective disorder, unspecified type documented in this encounter Care Teams Director Of Undergraduate Admissions Relationship Specialty Start Date End Date Lia Pearson APRN [address] [place] [address] PCP - General Geriatric Medicine 02/09/22 documented as of this encounter
--- OUTSIDE RECORDS SUMMARY | 2024-02-13 18:04 | XMS_ITS | Encounter Summary ---
Author Organization [facility] Address [facility] [place] [address] Care Team Providers Care Infrastructure Engineer Name Role Phone Lia Pearson APRN Primary Care Provider [phone] Reason for Visit * Reason Onset Date Comments Medication Refill 05/04/2022 Encounter Details Date Type Department Care Team (Late st Contact Info) Description 05/04/2022 Refill Obstetrics [place] [address] Sarahi Mercedes MD [facility] DR OBSTETRICS & [place] [address] Abnormal uterine bleeding (AUB) Social History Tobacco [...] Note: Practice STOP and Urge Surfing. Health Stone Gang Sawyer will send hand-outs. Movement Lifestyle On track( 023 1:14 PM EDT) Riddhi Buchanan RD Note: Continue to walk stairs and walks when can. Will continue using stairs as it's colder. Look into finding weights free online or at [employer] stores. Could use water-filled milk jugs as weights-a full gallon jug would be 8 lbs. Will look into nearby rec center 04/16/22 NATHALIA documented as of this encounter Visit Diagnoses Diagnosis Abnormal uterine bleeding (AUB) documented in this encounter Care Teams Infrastructure Engineer Relationship Specialty Start Date End Date Lia Pearson APRN [address] [place] [address] PCP - General Geriatric Medicine 02/09/22 documented as of this encounter
--- OUTSIDE RECORDS SUMMARY | 2024-02-13 18:04 | XMS_ITS | Encounter Summary ---
Author Organization [facility] Address [facility] [place] [address] Care Team Providers Care Structural Welder Name Role Phone Lia Pearson APRN Primary Care Provider [phone] Reason for Visit * Reason Onset Date Comments Medication Refill 05/04/2022 Encounter Details Date Type Department Care Team (Late st Contact Info) Description 05/04/2022 Refill Obstetrics [place] [address] Sarahi Mercedes MD [facility] DR OBSTETRICS [place] [address] Abnormal uterine bleeding (AUB) Social History Tobacco [...] Note: Practice STOP and Urge Surfing. Health Janitor Cleaner will send hand-outs. Movement Lifestyle On track( 023 1:14 PM EDT) Riddhi Buchanan RD Note: Continue to walk stairs and walks when can. Will continue using stairs as it's colder. Look into finding weights free online or at [employer] stores. Could use water-filled milk jugs as weights-a full gallon jug would be 8 lbs. Will look into nearby rec center 04/16/22 NATHALIA documented as of this encounter Visit Diagnoses Diagnosis Abnormal uterine bleeding (AUB) documented in this encounter Care Teams Structural Welder Relationship Specialty Start Date End Date Lia Pearson APRN [address] [place] [address] PCP - General Geriatric Medicine 02/09/22 documented as of this encounter
--- OUTSIDE RECORDS SUMMARY | 2024-02-13 18:05 | XMS_ITS | Encounter Summary ---
[place] [address] Care Team Providers Care Rail Filler Name Role Phone Lia Pearson APRN Primary Care Provider [phone] [phone] Reason for Referral * Consultation (Routine) - Closed Specialty Diagnoses / Procedures Referred By Della kern Referred To Contact Podiatry Diagnoses Type 2 diabetes mellitus without complication, unspecified whether technician terminal and repeater insulin use Lia Pearson APRN [address] [place] [address] [facility] [place] [address] Referral ID Status Reason Start Date Expiration Date V isits Requested Visits Authorized [id number] Closed Consult, Test & Treat PCP Updated and/or Approved 10/24/2021 10/24/2022 6 6 Encounter Details Date Type Department Care Team (Latest Contact Info) Description 10/24/2021 Transcribe Orders eDH Incoming Referrals [phone] Lia Pearson APRN [address] [place], [place] [id number] Type 2 diabetes mellitus without complication, unspecified whether chcf insulin use Social History Tobacco Use Types Packs/Day Years Used Date Smoking Tobacco: Never Assessed Sex and Gender Information Value Date Recorded Sex Assigned at Not on file Gender Identity Not on file Sexual Orientation Not on file documented as of this encounter Plan of Treatment Scheduled Referrals Name Type Priority Associated Diagnoses Orde r Schedule Referral to Podiatry Outpatient Referral Routine Type 2 diabetes mellitus without complication, unspecified whether chcf insulin use Ordered: 10/24/2021 documented as of this encounter Visit Diagnoses Diagnosis Type 2 diabetes mellitus without complication, unspecified whether technician terminal and repeater insulin use documented in this encounter Care Teams Rail Filler Relationship Specialty Start Date End Date Lia Pearson APRN [address] [place] [address] PCP - General Geriatric Medicine 10/15/21 01/26/22 documented as of this encounter
--- OUTSIDE RECORDS SUMMARY | 2024-02-13 18:05 | XMS_ITS | Encounter Summary ---
[place] [address] Care Team Providers Care Public Works Commissioner Name Role Phone Lia Pearson APRN Primary Care Provider +1 [phone] Encounter Details Date Type Department Care Team (Late st Contact Info) Description 02/23/2022 2:00 PM EDT [place] [phone] Social History Tobacco Use Types Packs/Day Years [...] can, buy fresh vegetables and fruit from [employer] market-sent message with resources -Choose whole grain [...] Note: Practice STOP and Urge Surfing. Health Biological Inspector will send hand-outs. Movement Lifestyle On track( 1:14 PM EDT) Riddhi Buchanan RD Note: Continue to walk stairs and walks when can. Will continue using stairs as it's colder. Look into finding weights free online or at [employer] stores. Could use water-filled milk jugs as weights-a full gallon jug would be 8 lbs. Will look into nearby rec center 04/16/22 documented as of this encounter Visit Diagnoses Not on filedocumented in this encounter Care Teams Public Works Commissioner Relationship Specialty Start Date End Date Lia Pearson APRN [address] [place] [address] PCP - General Geriatric Medicine 02/09/22 documented as of this encounter
--- OUTSIDE RECORDS SUMMARY | 2024-02-13 18:05 | XMS_ITS | Encounter Summary ---
Author Organization [facility] [place] [address] Care Team Providers Care Detonator Assembler Name Role Phone Lia Pearson APRN Primary Care Provider [phone] Encounter Details Date Type Department Care Team (Late st Contact Info) Description 02/26/2022 Refill Obstetrics [place] [phone] Lilian Gallegos RN Abnormal uterine bleeding Social [...] She requests blood work be sent to [facility] and a new prescription for TID norethindrone. Educated patient that if she has an increase in bleeding or lightheaded and dizziness that she needs ED care. Patient agrees with this plan. Requested patient message into office when blood work completed so nursing can call for results. Paged Dr. Swain to sign CBC and TID Aygestin. * Telephone Encounter - Lilian Gallegos RN - 02/26/2022 10:11 AM EDT ----- [...] can, buy fresh vegetables and fruit from [employer] market-sent message with resources -Choose whole grain [...] Note: Practice STOP and Urge Surfing. Health Custom Leather Products Maker will send hand-outs. Movement Lifestyle On track( 023 1:14 PM EDT) Riddhi Buchanan, CORNELIO Note: Continue to walk stairs and walks when can. Will continue using stairs as it's colder. Look into finding weights free online or at [employer] stores. Could use water-filled milk jugs as weights-a full gallon jug would be 8 lbs. Will look into nearby rec center 04/16/22 NATHALIA documented as of this encounter Visit Diagnoses Diagnosis Abnormal uterine bleeding Unspecified disorder of menstruation and other abnormal bleeding from female genital tract documented in this encounter Care Teams Detonator Assembler Relationship Specialty Start Date End Date Lia Pearson APRN [address] [place] [address] PCP - General Geriatric Medicine 02/09/22 documented as of this encounter
--- OUTSIDE RECORDS SUMMARY | 2024-02-13 18:05 | XMS_ITS | Encounter Summary ---
Author Organization [facility] Address [address] [place] [address] Care Team Providers Care Certified Registered Locksmith Name Role Phone Lisa Yan HOT STICK WORKER Unavailable [phone] Lisa Yan HOT STICK WORKER Unavailable [phone] Lia Pearson APRN Primary Care Provider [phone] Reason for Visit * Reason Onset Date Comments Medications Refill 12/13/2023 Encounter Details Date Type Department Care Team (Late st Contact Info) Description 12/13/2023 Refill [facility] Endocrinology [address] [place] [address] [phone] Lilibeth Arguello RN Medications Refill Social History Tobacco Use [...] hyperglycemia, with long-term current use of insulin ([facility]) TDD 36 units, per sliding scale with meals twice daily 33 mL 2 12/13/2023 documented in this encounter Miscellaneous Notes * Telephone Encounter - Dina Baldwin RN - 12/13/2023 1701 EDT Prescription faxed to pharmacy per order Lisa Yan * Telephone Encounter - Lilibeth Arguello RN - 12/13/2023 1653 EDT Patient asked for refill of Humalog with increased dosages and of TDD closer to 30 units than 10 units. She has been using 10-12 units three times per day. Patient is out of Humalog. She continues the same of the long acting. Nurse spoke with pharmacist and a new prescription would be needed. documented in this encounter Plan of Treatment Not on file documented as of this encounter Visit Diagnoses Diagnosis Type 2 diabetes mellitus with hyperglycemia, with long-term current use of insulin ([facility])- Primary documented in this encounter Discontinued Medications Medication Sig Discontinue Reason Start Date End Da te HUMALOG KWIKPEN INSULIN 100 unit/mL injectable penIndications:Type 2 diabetes mellitus with hyperglycemia, with long-term current use of insulin ([facility]) TDD 10 units, 1-5 units with meals twice daily Reorder 10/29/2023 12/13/2023 documented as of this encounter Care Teams Certified Registered Locksmith Relationship Specialty Start Date End Date Lia Pearson APRN [address] [place] [address] PCP - General Family Medicine - [facility] Medicine 09/26/21 Lisa Yan NP [address] [place] [phone] Nurse Practitioner Endocrinology, Diabetes and Metabolism 03/19/21 Lisa Yan NP [address] [place] [phone] Nurse Practitioner Endocrinology, Diabetes and Metabolism 06/06/21 documented as of this encounter
--- OUTSIDE RECORDS SUMMARY | 2024-02-13 18:05 | XMS_ITS | Encounter Summary ---
Author Organization [facility] [place] [address] Care Team Providers Care Public Works Laborer Name Role Phone Anita Plummer Primary Care Provider [phone] Encounter Details Date Type Department Care Team (Late st Contact Info) Description 01/29/2022 11:15 AM EDT TH Visit (TeleHealth) Weight and Wellness at [address] [address] [facility] [place] [address] Morbid obesity with BMI of 60.0-69.9, adult [...] Please reach out with a [facility] message if you have any questions or [...] into finding weights free online or at [employer] stores. Could use water-filled milk jugs as weights-a full gallon jug would be 8 lbs. Other (Enter personal goal) -Add peanut butter to oatmeal -Continue to add beans to meals as a source of protein and fiber -If can, buy fresh vegetables and fruit from [employer]-sent message with resources -Choose whole grain options if available -When having a snack, focus on protein Self-awareness, body cues Practice STOP and Urge Surfing. Health Carpenter Packing will send hand-outs. documented in this encounter Progress Notes * Riddhi Wilson RD - 01/29/2022 11:15 AM EDT Nutrition Intervention for Weight Management Initial RD visit with YARELI Ceballos 1990 Telehealth / telephone visit conducted while patient was at home at the following address: [address] [place] [address] [address] [facility] [address] Weight Today: Wt Readings from Last 3 Encounters: 01/29/22 (!) 188.2 kg (415 lb) 12/24/21 (!) 196 kg (432 lb) 12/19/21 (!) 196.3 kg (432 lb 12.8 oz) BMI Readings from Last 3 Encounters: 01/29/22 69.06 kg/m?? 12/24/21 71.89 kg/m?? 12/19/21 72.02 kg/m?? Interview: Phone call today as Zenia was getting an error message trying to connect to [employer]. Feelslise things are going well. In the last few days, she started using [employer] to track her macronutrients. The rebecca allows her 2800 qing for weight loss, she is eating between 0312-8214 qing/day. Doesn't really feel hungry after 7 pm. Has been adding more protein: beans, chicken, turkey legs from the food bank, low-sodium turkey-arnold. She has been doing better reducing carb intake and focusing on protein, noticing she feels full longer. Access to food is better-utilizing [employer] markets, getting a lot of vegetables Food [...] Loss History: See previous notes from this card writer hand and [facility] provider for full account [x] water - [...] can, buy fresh vegetables and fruit from [employer] market-sent message with resources -Choose whole grain options if available -When having a snack, focus on protein ??? Self-awareness, body cues Practice STOP and Urge Surfing. Health Carpenter Packing will send hand-outs. Bariatric eating behaviors introduced [...] into finding weights free online or at [employer] stores. o Could use water-filled milk jugs as weights-a full gallon jug would be 8 lbs. ??? Other (Enter personal goal) On track -Add peanut butter to oatmeal -Continue to add beans to meals as a source of protein and fiber -If can, buy fresh vegetables and fruit from [employer] market-sent message with resources -Choose whole grain [...] determined to the best ability of this card writer hand. Patient will contact bariatric surgery team for [...] can, buy fresh vegetables and fruit from [employer] market-sent message with resources -Choose whole grain [...] Note: Practice STOP and Urge Surfing. Health Carpenter Packing will send hand-outs. Movement Lifestyle On track( 1:14 PM EDT) No Cross, Riddhi M, RD Note: Continue to walk stairs and walks when can. Will continue using stairs as it's colder. Look into finding weights free online or at [employer] stores. Could use water-filled milk jugs as weights-a full gallon jug would be 8 lbs. Will look into nearby rec center 04/16/22 NATHALIA documented as of this encounter Visit Diagnoses Diagnosis Morbid obesity with BMI of 60.0-69.9, adult Morbid obesity documented in this encounter Care Teams Public Works Laborer Relationship Specialty Start Date End Date Anita Plummer PA [address] [place] [id number] PCP - General Urgent Care 01/27/22 02/08/22 documented as of this encounter
--- OUTSIDE RECORDS SUMMARY | 2024-02-13 18:05 | XMS_ITS | Encounter Summary ---
Author Organization [facility] [place] [address] Care Team Providers Care Business Performance Specialist Name Role Phone LiliLia JULIO C Primary Care Provider [phone] Encounter Details Date Type Department Care Team (Late st Contact Info) Description 03/03/2022 7:47 AM EDT Anesthesia Event [place] [phone] Fan Durham MD [facility] DR [place]EST[place]ES[place] [address] Eva Vaz[place] [address] Anesthesia Record Procedure Summary Procedure Name Responsible [...] dorsal arch vein (top of hand), left; hdxq-ice-[id number] catheter system; Ultrasound Guidance; 20 gauge; darshana [...] Procedure Summary Date: 03/03/22 Room / Location: [facility] MAIN OR Anesthesia Start: 746 Anesthesia Stop: [...] All Anesthesia Providers: Anesthesiologist: Fan Durham MD Office Agent: Bo Gao MD Vitals Value Taken Time BP Temp Pulse 104 03/03/22 1010 Resp 26 03/03/22 1010 SpO2 97 % 03/03/22 1010 Pain Level Vitals shown include unvalidated device data. Patient Location: PACU/[facility] Level of Consciousness: Conscious but Sleepy [...] Due for another check upon arrival in OR. Easy BMV and intubation. Hemodynamically stable throughout. 2 functioning PIV's. -monitor BG and treat with lispro -monitor for obstruction darshana gao md Pager [phone] Addendum 03/03/2022 (MD nicky): as above. Pt [...] 09/26/2021 ??? Long-term insulin use 09/26/2021 ??? detention 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 09/26/2021 [...] Extubation to CPAP. darshana gao md Pager [phone] Addendum 03/03/2022 (MD Nicky): as above. Pt [...] medical information from outside organization. From Where? [facility] in [place], [place] -airway records Findings, Assessment and Plan: 31 [...] 8 deficiency. Additional labs were ordered at [facility] visit 02/10/22, showing improvement in Hgb [...] menstrual cycles. #HLD: rosuvastatin #Tachycardia: evaluated by prefabricated houses trimmer Dr. Haider at [facility], in August had ekg which showed sinus [...] regimen recently increased. A1C 6.2 on 11/12/21. #[place]: wears CPAP nightly #Hypothyroidism: on levothyroxine #Schizoaffective [...] an emergent intubation 2017. Requesting records from [facility] in [place], [place]. Patient is charted as a difficult [...] assistance but would probably need to stop chcf to catch her breath. Reports that she [...] the hospital. Pattient seen and evaluated during [facility] appointment on 01/07/22 for this upcoming procedure. -Spoke with the patient at length in the office today about these fears, answered all of her questions about anesthesia and the measures we take to minimize risk of aspiration and awareness of ETT presence. Patient has a routine visit at [facility] with cardiology on 02/27/22, Esme Haider, where she will follow-up on tachycardia and recent increase in Metoprolol dosing. She is aware of patient's upcoming procedure and appears to be medically optimized at this point. -Patient advised to bring CPAP with her on day of surgery. Follow-up items: Reaching out to [facility] in [place] to attempt to obtain airway records prior to her upcoming procedure. Case discussed with Dr. Fan Durham MD. Danna Starks MD 02/23/2022 [facility] phone extension: [phone] * Anesthesia Preprocedure Evaluation - Eva Vazquez [...] 09/26/2021 ??? Long-term insulin use 09/26/2021 ??? detention 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 09/26/2021 [...] from outside organization. From Where? Cardiology records [facility] Findings, Assessment and Plan: 31 y.o. female [...] losartan, metoprolol #HLD: rosuvastatin #tachycardia: evaluated by prefabricated houses trimmer Dr. Haider at [facility], had ekg and echo, pt unsure of [...] for a pre-anesthesia consult. Patient followed by prefabricated houses trimmer at [facility], will request records of previous testing. Patient [...] final anesthetic plan will be made by [facility] anesthesia team who she will meet priorto surgery. All questions answered to the patient's satisfaction. Update (01/13/22): [facility] cardiology notes scanned under media. Echo 09/05 [...] can, buy fresh vegetables and fruit from [employer] market-sent message with resources -Choose whole grain [...] Practice STOP and Urge Surfing. Health Quality Assurance Auditor will send hand-outs. Movement Lifestyle On track( 023 1:14 PM EDT) Riddhi Buchanan RD Note: Continue to walk stairs and walks when can. Will continue using stairs as it's colder. Look into finding weights free online or at [employer] stores. Could use water-filled milk jugs as weights-a full gallon jug would be 8 lbs. Will look into nearby [facility] 04/16/22 NATHALIA documented as of this [...] mg documented in this encounter Care Teams Business Performance Specialist Relationship Specialty Start Date End Date Lia Pearson APRN [address] [place] [address] PCP - General Geriatric Medicine 02/09/22 documented as of this encounter
--- OUTSIDE RECORDS SUMMARY | 2024-02-13 18:05 | XMS_ITS | Encounter Summary ---
Author Organization [facility] [place] [address] Care Team Providers Care Entry Level Chemist Name Role Phone GeorgesLia Toribio JULIO C Primary Care Provider [phone] Encounter Details Date Type Department Care Team (Late st Contact Info) Description 01/15/2022 Orders Only [place] [address] Katie Lemon APRN [facility] [place] [address] Social History Tobacco Use Types Packs/Day Years [...] on filedocumented in this encounter Care Teams Entry Level Chemist Relationship Specialty Start Date End Date Lia Pearson APRN [address] [place] [address] PCP - General Geriatric Medicine 10/15/21 01/26/22 documented as of this encounter
--- OUTSIDE RECORDS SUMMARY | 2024-02-13 18:05 | XMS_ITS | Encounter Summary ---
Author Organization [facility] [place] [address] Care Team Providers Care Senior Software Development Engineer Name Role Phone Lia Pearson APRN Primary Care Provider [phone] Reason for Visit * Reason Onset Date Comments Medication Refill 01/13/2022 Encounter Details Date Type Department Care Team (Late st Contact Info) Description 01/13/2022 Refill Obstetrics [place] [address] Sabrina Swain MD [facility] DR OBSTETRICS [place] [address] Social History Tobacco Use Types Packs/Day Years [...] filedocumented in this encounter Care Teams Senior Software Development Engineer Relationship Specialty Start Date End Date Lia Pearson APRN [address] [place] [address] PCP - General Geriatric Medicine 10/15/21 01/26/22 documented as of this encounter
--- OUTSIDE RECORDS SUMMARY | 2024-02-13 18:05 | XMS_ITS | Encounter Summary ---
Author Organization [facility] [place] [address] Care Team Providers Care Buggy Ladle Tender Name Role Phone Lia Pearson APRN Primary Care Provider [phone] Encounter Details Date Type Department Care Team (Late st Contact Info) Description 12/24/2021 2:15 PM EDT TH Visit (TeleHealth) Weight and Wellness at [address] [address] [facility] [place] [address] Morbid obesity with BMI of 70 and [...] past visits. Please reach out with a [employer] message if you have any questions or [...] can, buy fresh vegetables and fruit from [employer]-sent message with resources -Choose whole grain options if available -When having a snack, focus on protein documented in this encounter Progress Notes * Riddhi Wilson RD - 12/24/2021 2:15 PM EDT Nutrition Intervention for Weight Management Initial RD visit with YARELI Cbeallos 1990 Telehealth / telephone visit conducted while patient was at home at the following address: [address] [place] [address] Weight Today: Wt Readings from Last 3 [...] insurance. Uses social security benefits and the [employer] for food. Is unable to use benefits at local [employer], this scientific writer will look into resources. She is walking [...] peaches, grapes. S: Cheese sticks-string cheese or zqmhwg-fik-odq peach; sopoz-jew-bohalfe if blood sugar is low Typical Beverages: [x] coffee -rarely [x] half and half (unflavored) [] flavored creamer (sugar) [] flavored creamer (sugar-free) [] added sugar - (total: [x] added non-caloric sweetener-2 packets of equal [x] water - (total: ~80 oz day [x] plain [x] crystal light or other sugar-free additive 1/day [] [place] (natural or artificial flavoring or plain only) [...] can, buy fresh vegetables and fruit from [employer]-sent message with resources -Choose whole grain options [...] [] Needs additional fuv scheduled with this scientific writer in Return for FUV already scheduled. (OR) [] Currently scheduled for: [] 1st consecutive monthly nutrition visit [x] 2nd consecutive monthly nutrition visit [x] 3rd consecutive monthly nutrition visit (OR) [] Patient has met requirement of 3 consecutive monthly nutrition visits but agrees that ongoing support would be helpful and feasible. Above determined to the best ability of this scientific writer. Patient will contact bariatric surgery team [...] can, buy fresh vegetables and fruit from [employer]-sent message with resources -Choose whole grain options [...] obesity documented in this encounter Care Teams Buggy Ladle Tender Relationship Specialty Start Date End Date Lia Pearson APRN [address] [place] [address] PCP - General Geriatric Medicine 10/15/21 01/26/22 documented as of this encounter
--- OUTSIDE RECORDS SUMMARY | 2024-02-13 18:05 | XMS_ITS | Encounter Summary ---
Author Organization [facility] Address [address] [place] [address] Care Team Providers Care Recording Clerk Name Role Phone Lisa Yan LAP CUTTER TRUER OPERATOR Unavailable [phone] Lisa Yan LAP CUTTER TRUER OPERATOR Unavailable [phone] Lia Pearson APRN Primary Care Provider [phone] Reason for Visit * Reason Onset Date Comments Medication Questions 10/29/2023 Encounter Details Date Type Department Care Team (Late st Contact Info) Description 10/29/2023 Telephone [facility] Endocrinology [address] [place] [address] Tasha Tavares RN Medication Questions Social [...] current use of insulin ([facility]) Inject 6 Units into the skin once [...] current use of insulin ([facility])- Primary documented in this encounter Discontinued Medications Medication Sig Discontinue Reason Start Date End Da te insulin glargine 100 unit/mL (3 mL) injection penIndications:Type 2 diabetes mellitus with hyperglycemia, with long-term current use of insulin ([facility]) Inject 6 Units into the skin once daily AND 7 Units at bedtime. E11.65 6 units am, 5 units pm. Reorder 10/29/2023 10/29/2023 documented as of this encounter Care Teams Recording Clerk Relationship Specialty Start Date End Date Lia Pearson APRN [address] [place] [address] PCP - General Family Medicine - [facility] Medicine 09/26/21 Lisa Yan NP [address] [place] [phone] Nurse Practitioner Endocrinology, Diabetes and Metabolism 03/19/21 Lisa Yan NP [address] [place] [phone] Nurse Practitioner Endocrinology, Diabetes and Metabolism 06/06/21 documented as of this encounter
--- OUTSIDE RECORDS SUMMARY | 2024-02-13 18:05 | XMS_ITS | Encounter Summary ---
Author Organization [facility] Address [facility] [place] [address] Care Team Providers Care Continuous Process Rotary Drum Tanner Name Role Phone Lia Pearson APRN Primary Care Provider [phone] Encounter Details Date Type Department Care Team (Late st Contact Info) Description 02/26/2022 11:15 AM EDT TH Visit (TeleHealth) Weight and Wellness at [address] [address] Ridhdi Wilson, [facility] [place] [address] Class 3 severe obesity with body mass [...] past visits. Please reach out with a [employer] message if you have any questions or [...] into finding weights free online or at [employer] stores. Could use water-filled milk jugs as [...] cues Practice STOP and Urge Surfing. Health Production Repairer will send hand-outs. documented in this encounter Progress Notes * Riddhi Wilson RD - 02/26/2022 11:15 AM EDT Nutrition Intervention for Weight Management Initial RD visit with Zenia WorleyYARELI 1990 Telehealth / telephone visit conducted while patient was at home at the following address: [address] [place] [address] [address] [facility] [address] Weight Today: Wt Readings from Last 3 [...] going well, switched to brown rice. Using [employer] has been very helpful. Hasn't been to [facility] since 02/15. Still using the [employer]. Discussed what she will do in the [...] Loss History: See previous notes from this literary writer and [facility] provider for full account Typical Dietary Intake: See previous notes Typical Beverages: [] coffee (Cups per day: [] half and half (unflavored) [] flavored creamer (sugar) [] flavored creamer (sugar-free) [] added sugar - (total: [] added non-caloric sweetener [x] water - (total: [] plain [] crystal light or other sugar-free additive [] [place] [] Alcohol (Amount per week: [] diet [...] into finding weights free online or at [employer]. o Could use water-filled milk jugs as [...] cues Practice STOP and Urge Surfing. Health Production Repairer will send hand-outs. Bariatric eating behaviors introduced [...] into finding weights free online or at [employer]. o Could use water-filled milk jugs as weights-a full gallon jug would be 8 lbs. ??? Other (Enter personal goal) On track -Add peanut butter to oatmeal -Continue to add beans to meals as a source of protein and fiber -If can, buy fresh vegetables and fruit from [employer]-sent message with resources -Choose whole grain options if available -When having a snack, focus on protein Monitor/Evaluate: [x] Needs additional fuv scheduled with this literary writer in No follow-ups on file. Above determined to the best ability of this literary writer. Patient will contact bariatric surgery team [...] can, buy fresh vegetables and fruit from [employer]-sent message with resources -Choose whole grain options [...] Practice STOP and Urge Surfing. Health Production Repairer will send hand-outs. Movement Lifestyle On track( 023 1:14 PM EDT) Riddhi Buchanan RD Note: Continue to walk stairs and walks when can. Will continue using stairs as it's colder. Look into finding weights free online or at [employer] stores. Could use water-filled milk jugs as weights-a full gallon jug would be 8 lbs. Will look into nearby rec center 04/16/22 NATHALIA documented as of this encounter Visit Diagnoses Diagnosis Class 3 severe obesity with body mass index (BMI) of 60.0 to 69.9 in adult, unspecified obesity type, unspecified whether serious comorbidity present documented in this encounter Care Teams Continuous Process Rotary Drum Tanner Relationship Specialty Start Date End Date Lia Pearson APRN [address] [place] [address] PCP - General Geriatric Medicine 02/09/22 documented as of this encounter
--- OUTSIDE RECORDS SUMMARY | 2024-02-13 18:05 | XMS_ITS | Encounter Summary ---
[place] [address] Care Team Providers Care Health Administrator Name Role Phone Lia Pearson APRN Primary Care Provider [phone] [phone] Encounter Details Date Type Department Care Team (Late st Contact Info) Description 02/20/2022 External Results Weight and Wellness at [address] [address] Rebeka Up, RN Social History Tobacco Use [...] can, buy fresh vegetables and fruit from [employer] market-sent message with resources -Choose whole grain [...] Note: Practice STOP and Urge Surfing. Health Customizer will send hand-outs. Movement Lifestyle On track( 023 1:14 PM EDT) Riddhi Buchanan RD Note: Continue to walk stairs and walks when can. Will continue using stairs as it's colder. Look into finding weights free online or at [employer] stores. Could use water-filled milk jugs as weights-a full gallon jug would be 8 lbs. Will look into nearby rec center 04/16/22 NATHALIA documented as of this encounter Procedures Procedure Name Priority Date/Time Associated Diagnosis Comments [facility] EXTERNAL LABS 2 Routine 02/12/2022 documented in this encounter Results * (ABNORMAL) [facility] Labs 2 - External (02/12/2022) Cholesterol, Total 146 Triglyceride 98 HDL Cholesterol 38(L) LDL Cholesterol 89 Vitamin D Total 25 OH 6.5(L) Platelet 433(H) Ferritin 16 Iron 37(L) 02/12/2022 Historical Provider MD EXTERNAL LAB MARTI CASILLAS documented in this encounter Visit Diagnoses Not on filedocumented in this encounter Care Teams Health Administrator Relationship Specialty Start Date End Date Lia Pearson APRN [address] [facility] [place] [address] PCP - General Geriatric Medicine 02/09/22 documented as of this encounter
--- OUTSIDE RECORDS SUMMARY | 2024-02-13 18:05 | XMS_ITS | Encounter Summary ---
Author Organization [facility] Address [facility] [place] [address] Care Team Providers Care Director Of Individual Giving Name Role Phone NasraLia chávez JULIO C Primary Care Provider [phone] [phone] Reason for Visit * Reason Comments Establish Care * Consultation (Routine) - Closed Specialty Diagnoses / Procedures Referred By Della kern Referred To Contact Obstetrics and Gynecology Diagnoses Morbid obesity Excessive and frequent menstruation with irregular cycle Bettye Simmons MD [address] [place] [address] [facility] [address] [place] [address] Referral ID Status Reason Start Date Expiration Date V isits Requested Visits Authorized [id number] Closed Consult, Test & Treat PCP Updated and/or Approved 11/10/2021 11/10/2022 6 6 Encounter Details Date Type Department Care Team (Late st Contact Info) Description 11/26/2021 8:00 AM EDT Office Visit Obstetrics [place] [address] [facility] [address] [place] [address] Abnormal uterine bleeding; Morbid obesity [...] EDT 11/26/21 Referred by: Bettye Simmons MD [address] [place] [address] [place] [address] Chief Complaint Patient presents with ??? Establish [...] willebrand's workup - was told by her FRYER OPERATOR that she does not have this I Bleed every day. Since starting periods at age 13. Has anemia. Factor 8 and fibroids run in her family Had talked about control pills with her seaport planning manager - worried about weight gain. Has not had a vaginal US. Has insertional pain. Does not think she would tolerate a vaginal probe US. Review of systems: Except as noted, comprehensive review of systems was negative. Ferryboat Helper History: Abnormal pap: Most recent pap: never History of STI: never History of FRYER OPERATOR pathology: no Reproductive life planning: Currently sexually active? No Contraceptive: OB History 0 Para 0 Term 0 0 AB 0 Living 0 SAB 0 IAB 0 Ectopic 0 Multiple 0 Live Births 0 Patient Active Problem List Diagnosis Code ??? BMI 60.0-69.9, adult Z68.44 ??? Essential hypertension, benign I10 ??? Long-term insulin use Z79.4 ??? watermelon inspector current use of oral 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 [...] on file documented as of this encounter Procedures Procedure [...] AM Electronically signed by: Deneen Ribera MD, [facility] ([phone]), at 03/03/2022 9:30 AM Thank you for letting us participate in the care of this patient. If you are a health care provider and have any questions regarding this report, please contact the number above. For patients who have questions, please contact the health healthcare consulting manager that requested your imaging first. ? Deneen Ribera, Staff Physician Electronically Signed Final Report ?? 03/03/2022 09:37 am Narrative 03/03/2022 9:38 AM EDT Gynecological Report ?(Signed Final 03/03/2022 09:37 am) PATIENT INFO: ID #: ? [id number] ?: ??[birth year] (31 yrs)(F) Name: ? MIGUEL WORLEY ?Visit Date: 03/03/2022 07:14 am PERFORMED BY: Performed By: ? Stefany Thomason RDMS Attending: ?Mounika HERNANDEZ, Deneen Arias Resident: ? Drew Barry DO Referred By: ?SABRINA FISHER Location: ? [place] SERVICE(S) PROVIDED: UTV - Transvaginal - [id number] ?[id number] UPELIM - Pelvis Limited - [id number] ? [id number] INDICATIONS: daily vaginal bleeding x >10 years [...] 03/03/2022 09:37 am) PATIENT INFO: ID #: [id number] : [birth year] (31 yrs)(F) Name: MIGUEL WORLEY Visit Date: 03/03/2022 07:14 am PERFORMED BY: Performed By: Stefany Thomason RDMS Attending: Deneen Ribera MD Resident: Drew Barry DO Referred By: SABRINA FISHER Location: [place] SERVICE(S) PROVIDED: UTV - Transvaginal - [id number] UPELIM - Pelvis Limited - [id number] INDICATIONS: daily vaginal bleeding x >10 years [...] AM Electronically signed by: Deneen Ribera MD, [facility] ([phone]), at 03/03/2022 9:30 AM Thank you for letting us participate in the care of this patient. If you are a health care provider and have any questions regarding this report, please contact the number above. For patients who have questions, please contact the health healthcare consulting manager that requested your imaging first. Deneen Ribera, Staff Physician Electronically Signed Final Report 03/03/2022 09:37 am Sabrina Fisher MD IMG US PELVIC ORDERA BLES * Testosterone, total and free (11/26/2021 9:10 AM EDT) Testo, Total (Ms) (SEPTEMBER) 15 8 - 60 ng/dL [facility] Comment: ADDITIONAL INFORMATION Testing performed by Liquid Chromatography-Tandem Mass Spectrometry (LC-MS/MS). This test was developed and its performance characteristics determined by [facility] in a manner consistent with CLIA requirements. This test has not been cleared or approved by the U.S. Food and Drug Administration. Test Performed by: [facility] [address] Meat Grading Machine Operator: Omid Stiles M.D. Ph.D.; CLIA# [id number] Testo Free (SEPTEMBER) 0.60 <0.13 - 1.06 ng/dL [facility] Comment: ADDITIONAL INFORMATION This test was developed and its performance characteristics determined by [facility] in a manner consistent with CLIA requirements. This test has not been cleared or approved by the U.S. Food and Drug Administration. Test Performed by: [facility] [address] Meat Grading Machine Operator: Omid Stiles M.D. Ph.D.; CLIA# [id number] Blood 11/26/2021 9:10 AM EDT 11/26/2021 10:39 AM EDT Narrative Resulting Agency Comment Spec In Lab Sabrina Fisher MD LAB SEND OUT ORDERAB LES [facility] [place] [address] * Estradiol (11/26/2021 9:10 AM EDT) Estradiol 48 pg/mL [facility] Comment: Reference ranges: Males: Adult: ? 11 to 43 pg/mL Females: Non- females: ?Follicular: ??12-233 pg/mL ?Ovulation: ?? 41-398 pg/mL ?Luteal: ?22-341 pg/mL ?Postmenopausal: ?? <5 - 138 pg/mL females: ?1st trimester: ??154-3243 pg/mL ?2nd trimester: ??1561-83039 pg/mL ?3rd trimester: ??8525- >80500 pg/mL Blood 11/26/2021 9:10 AM EDT 11/26/2021 9:36 AM EDT Narrative Resulting Agency Comment Spec In Lab Sabrina Fisher MD CHEMISTRY ORDERABLES Performing Organization Address [facility] de Phone Number [facility] [place] [address] * Follicle Stimulating Hormone (11/26/2021 9:10 AM EDT) Follicle Stimulating Hormone 3.8 mlU/ML [facility] Comment: Reference Ranges Male: ? 1.5-12.4 mIU/mL Female ?? Follicular: ?3.5-12.5 mIU/mL ?? Ovulation: ? 4.7-21.5 mIU/mL ?? Luteal: ?1.7-7.7 mIU/mL ?? Postmenopausal: ?25.8-134.8 mIU/mL Blood 11/26/2021 9:10 AM EDT 11/26/2021 9:36 AM EDT Narrative Resulting Agency Comment Spec In Lab Sabrina Fisher MD CHEMISTRY ORDERABLES Performing Organization Address [facility] de Phone Number [facility] [place] [address] * Prolactin (11/26/2021 9:10 AM EDT) Prolactin 11.0 4.8 - 23.3 ng/mL [facility] Blood 11/26/2021 9:10 AM EDT 11/26/2021 9:36 AM EDT Narrative Resulting Agency Comment Spec In Lab Sabrina Fisher MD CHEMISTRY ORDERABLES [facility] [place] [address] documented in this encounter Visit Diagnoses Diagnosis [...] obesity documented in this encounter Care Teams Director Of Individual Giving Relationship Specialty Start Date End Date Lia Pearson APRN [address] [place] [address] PCP - General Geriatric Medicine 10/15/21 01/26/22 documented as of this encounter
--- OUTSIDE RECORDS SUMMARY | 2024-02-13 18:05 | XMS_ITS | Encounter Summary ---
[place] [address] Care Team Providers Care Oracle Hrms Developer Name Role Phone Lia Pearson APRN Primary Care Provider [phone] Reason for Referral * Consultation (Routine) - Closed Specialty Diagnoses / Procedures Referred By Della kern Referred To Contact Obstetrics and Gynecology Diagnoses Morbid obesity Excessive and frequent menstruation with irregular cycle Bettye Simmons MD [address] [place] [address] [place] [address] [facility] Meat [facility] [address] [address] Referral ID Status Reason Start Date Expiration Date V isits Requested Visits Authorized [id number] Closed Consult, Test & Treat PCP Updated and/or Approved 11/10/2021 11/10/2022 6 6 Encounter Details Date Type Department Care Team (Late st Contact Info) Description 11/10/2021 Transcribe Orders eDH Incoming Referrals [phone] Bettye Simmons MD [address] [place] [address] [address] [place], [place] [id number] Morbid obesity; Excessive and frequent menstruation with [...] Associated Diagnoses Orde r Schedule Referral to Ob-Block Saw Operator Outpatient Referral Routine Morbid obesity Excessive and frequent menstruation with irregular cycle Ordered: 11/10/2021 documented as of this encounter Visit Diagnoses Diagnosis Morbid obesity Excessive and frequent menstruation with irregular cycle Excessive or frequent menstruation documented in this encounter Care Teams Oracle Hrms Developer Relationship Specialty Start Date End Date Lia Pearson APRN [address] [facility] [place] [address] PCP - General Geriatric Medicine 10/15/21 01/26/22 documented as of this encounter
--- OUTSIDE RECORDS SUMMARY | 2024-02-13 18:05 | XMS_ITS | Encounter Summary ---
Author Organization [facility] [address] Care Team Providers Care General Internist And Physician Leader Name Role Phone Lia Pearson APRN Primary Care Provider [phone] Reason for Visit * Consultation (Routine) - Closed Specialty Diagnoses / Procedures Referred By Della kern Referred To Contact Podiatry Diagnoses Type 2 diabetes mellitus without complication, unspecified whether watermaster insulin use Lia Pearson APRN [address] [place] [address] [facility] [place] [address] Referral ID Status Reason Start Date Expiration Date V isits Requested Visits Authorized [id number] Closed Consult, Test & Treat PCP Updated and/or Approved 10/24/2021 10/24/2022 6 6 Encounter Details Date Type Department Care Team (Late st Contact Info) Description 01/07/2022 3:00 PM EDT Office [place] [address] Omid Agneles, [facility] [address] Type 2 diabetes mellitus with [...] Note Name: Zenia Worley Age:31 y.o. MR#: [id number] Date of Service: 01/07/2022 SUBJECTIVE: Zenia Worley [...] Hobbies? Not really right now. Came to [place] from [place] to work at [employer] transition - took one year [...] Epicritic sensation intact to light touch bilaterally. [place] Isidra 5.07 monofilament testing 10/10 bilaterally. No [...] to the Emergency Department. Alba [place] DPM Senior Procurement Manager, [facility] documented in this encounter Plan of Treatment Scheduled Referrals Name Type Priority Associated Diagnoses Orde r Schedule Referral to Podiatry Outpatient Referral Routine Type 2 diabetes mellitus without complication, unspecified whether watermaster insulin use Ordered: 10/24/2021 documented as of [...] callosities documented in this encounter Care Teams General Internist And Physician Leader Relationship Specialty Start Date End Date Lia Pearson APRN [address] [place] [address] PCP - General Geriatric Medicine 10/15/21 01/26/22 documented as of this encounter
--- OUTSIDE RECORDS SUMMARY | 2024-02-13 18:05 | XMS_ITS | Encounter Summary ---
Author [place] [address] Care Team Providers Care Federal Aid Coordinator Name Role Phone Lia Pearson APRN Primary Care Provider [phone] Encounter Details Date Type Department Care Team (Latest Contact Info) Description 01/21/2022 2:30 PM EDT TH Visit (TeleHealth) Weight and Wellness at [address] [address] [place] Obesity, unspecified classification, unspecified obesity [...] you more. Be well, [facility] Health Hot Kettle Tender documented in this encounter Progress Notes * [...] sugar and juice Future follow-up with health quality assurance coach will address identified areas of concern: [...] increasing mindfulness throughout the day. Your health quality assurance coach is well-equipped to guide you to find something to look forward to everyday. Eating behaviors: many people benefit from restricting the hours in which they eat. You can choose an eating window of 8-12 hours to start. Make a pact with yourself that you will not take in anything with caloric content outside this window. Your operations support representative may make further recommendations documented in this [...] can, buy fresh vegetables and fruit from [employer] market-sent message with resources -Choose whole grain [...] Note: Practice STOP and Urge Surfing. Health Hot Kettle Tender will send hand-outs. documented as of this encounter Visit Diagnoses Diagnosis Obesity, unspecified classification, unspecified obesity type, unspecified whether serious comorbidity present documented in this encounter Care Teams Federal Aid Coordinator Relationship Specialty Start Date End Date Lia Pearson APRN [address] [place] [address] PCP - General Geriatric Medicine 10/15/21 01/26/22 documented as of this encounter
--- OUTSIDE RECORDS SUMMARY | 2024-02-13 18:05 | XMS_ITS | Encounter Summary ---
[place] [address] Care Team Providers Care Shelf Stocker Name Role Phone Lia Pearson APRN Primary Care Provider [phone] [phone] Encounter Details Date Type Department Care Team (Late st Contact Info) Description 01/07/2022 2:00 PM EDT [place] [phone] Social History Tobacco Use Types Packs/Day Years [...] on filedocumented in this encounter Care Teams Shelf Stocker Relationship Specialty Start Date End Date Lia Pearson APRN [address] [place] [address] PCP - General Geriatric Medicine 10/15/21 01/26/22 documented as of this encounter
--- OUTSIDE RECORDS SUMMARY | 2024-02-13 18:05 | XMS_ITS | Encounter Summary ---
[place] [address] Care Team Providers Care Tamping Machine Operator Name Role Phone Lia Pearson APRN Primary Care Provider [phone] Encounter Details Date Type Department Care Team (Late st Contact Info) Description 12/02/2021 Telephone Obstetrics [place] [address] Martha Stokes, RN Social History Tobacco Use [...] and symptoms. Please call her back at [phone]. documented in this encounter Plan of Treatment Not on file documented as of this encounter Visit Diagnoses Not on filedocumented in this encounter Care Teams Tamping Machine Operator Relationship Specialty Start Date End Date Lia Pearson APRN [address] [place] [address] PCP - General Geriatric Medicine 10/15/21 01/26/22 documented as of this encounter
--- OUTSIDE RECORDS SUMMARY | 2024-02-13 18:05 | XMS_ITS | Encounter Summary ---
Author Organization [facility] Address [place] [id number] Care Team Providers Care Dental Aide Name Role Phone Lia Pearson DEFECT CUTTER Primary Care Provider [phone] Reason for Visit * Consultation (Routine) - Closed Specialty Diagnoses / Procedures Referred By Della kern Referred To Contact Weight and Wellness Diagnoses Class 3 severe obesity with body mass index (BMI) greater than or equal to 70 in adult, unspecified obesity type, unspecified whether serious comorbidity present Type 2 diabetes mellitus with hyperglycemia, with long-term current use of insulin Jenni Waller MD [facility] [address] [facility] [place] [address] [facility] [address] [place] [phone] Referral ID Status Reason Start Date Expiration Date V isits Requested Visits Authorized [id number] Closed Consult, Test & Treat 12/19/2021 12/19/2022 1 1 Encounter Details Date Type Department Care Team (Latest Contact Info) Description 02/18/2022 9:00 AM EDT TH Visit (TeleHealth) Weight and Wellness at [address] [address] Angela Pruett, PhD [facility] [place] [phone] Posttraumatic stress disorder; Schizoaffective disorder, unspecified type [...] N [facility] AT [address] [address] Dept: [phone] 02/18/2022 9:01 AM Zenia Worley is a 31 y.o. female who was referred for evaluation and preparation for potential bariatric surgery. Zenia was seen for 60 minutes. Patient was alone, and was seen via telehealth. Zenia Worley gave permission for and was seen for today's appointment with a Telehealth visit. During this visit they were located at home in [place], [place]. Zenia Worley is aware that for any urgent matter they can text/call or access www.[employer] if they are in the state [facility]. For [place] residents, crisis service contact info can be found at: [email or web address] . Office numbers: [facility]: Weight & Wellness: RECOMMENDATION BASED [...] to the surgeon Number of visits with barrel lathe operator outside: [address] WEIGHT [...] Education level: college graduate - associates in [employer] Occupation: unemployed, disabled, survivor benefits - related [...] morephysically fit, play basketball REALISTIC POSTSURGICAL GOALS/EXPECTATIONS [place] body weight (based on a BMI of [...] mom and sister, but they live in [place] Quality of EMOTIONAL support: good Quality of [...] adult relationship. She then left the state ([place]), sought help in a homeless longterm in [place] after her temporary job ended. She reported [...] Diagnoses Orde r Schedule Amb Referral to [facility] Psych Evaluation Outpatient Referral Routine Class 3 [...] can, buy fresh vegetables and fruit from [employer] market-sent message with resources -Choose whole grain options if available -When having a snack, focus on protein Bariatric behaviors Lifestyle On track( 023 1:14 PM EDT) Riddhi Bcuhanan RD Note: [...] Note: Practice STOP and Urge Surfing. Health Kaiwhakahaere will send hand-outs. Movement Lifestyle On track( 023 1:14 PM EDT) Riddhi Buchanan RD Note: Continue to walk stairs and walks when can. Will continue using stairs as it's colder. Look into finding weights free online or at [employer] stores. Could use water-filled milk jugs as weights-a full gallon jug would be 8 lbs. Will look into nearby rec center 04/16/22 NATHALIA documented as of this encounter Visit Diagnoses Diagnosis Posttraumatic stress disorder Schizoaffective disorder, unspecified type documented in this encounter Care Teams Dental Aide Relationship Specialty Start Date End Date Lia Pearson APRN [address] [place] [address] PCP - General Geriatric Medicine 02/09/22 documented as of this encounter
--- OUTSIDE RECORDS SUMMARY | 2024-02-13 18:05 | XMS_ITS | Encounter Summary ---
Author Organization [facility] Address [facility] [place] [address] Care Team Providers Care Enrollment Coordinator Name Role Phone Lia Pearson APRN Primary Care Provider [phone] Reason for Visit * Consultation (Routine) - Closed Specialty Diagnoses / Procedures Referred By Della kern Referred To Contact Hematology and Oncology Diagnoses Von Willebrand's disease Lia Pearson APRN [address] [place] [address] [facility] [address] [place] [address] Referral ID Status Reason Start Date Expiration Date V isits Requested Visits Authorized [id number] Closed Consult, Test & Treat 10/15/2021 10/15/2022 1 1 Encounter Details Date Type Department Care Team (Latest Contact Info) Description 01/05/2022 10:30 AM EDT TH Visit (TeleHealth) Hematology [place] [address] [facility] DR HEMATOLOGY [place] [address] Sandra Siddiqui RN Menorrhagia with [...] wear her pads for several hours. Her PILLOW FILLER has discussed hysteroscopy with biopsy, transvaginal ultrasound and also Mirena IUD insertion. This is scheduled under OR for Feb 2022. She is coming to [facility] on 01/07/22 for pre op evaluation. 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 Alcohol: [...] days on 01/07/22 when she comes to [facility] for her other appointment. I will call [...] drawn on 01/07 when she comes to [facility]. She should avoid NSAIDs in interim. We [...] can, buy fresh vegetables and fruit from [employer] market-sent message with resources -Choose whole grain [...] (chronic) documented in this encounter Care Teams Enrollment Coordinator Relationship Specialty Start Date End Date Lia Pearson APRN [address] [place] [address] PCP - General Geriatric Medicine 10/15/21 01/26/22 documented as of this encounter
--- OUTSIDE RECORDS SUMMARY | 2024-02-13 18:05 | XMS_ITS | Encounter Summary ---
Author Organization [facility] [place] [address] Care Team Providers Care [place]. Commissioner Name Role Phone Lia Pearson APRN Primary Care Provider Encounter Details Date Type Department Care Team (Latest Contact Info) Description 03/03/2022 5:57 AM EDT - 03/03/2022 12:13 PM EDT Hospital Encounter [place] [address] Sabrina Swain MD [facility] [address] [place] [address] Abnormal uterine bleeding; Morbid obesity with BMI [...] appointment: 03/25/2022 10:20 AM Sabrina Swain MD [facility] CARTOGRAPHIC AIDE 5L RECOMMENDATIONS You should have somebody home [...] an egg. *Please call the Department of GRINDER @ [phone] for any problem that concerns you. If [...] Swain MD - 03/03/2022 6:52 AM EDT Couture Alterations Dressmaker Admission Note Zenia Worley is a 31 [...] 02/15). She is an established patient at [facility], had a plan for pap/emb/ IUD [...] pain, vaginal bleeding , and leg pain. HEALTH LEAD Hx Most recent pap: never History of STI: never History of HEALTH LEAD pathology: no Reproductive life planning: Currently sexually [...] Operative Note Patient Name: Zenia Worley : [id number] MR#: [id number] Case Date: 03/03/2022 Surgeon: Surgeon(s) and Role: [...] abnormal Pap or cervical biopsy? No Prior HEALTH LEAD therapy? ([facility] bx, Cautery, Cryotherapy, Surgery) No History of HPV vaccination? No ICD-10 Diagnosis: Z12.4 Encounter for screening for malignant neoplasm of cervix SPECIMEN [place] PATHOLOGY [place]ermanent OR4 [address] abnormal uterine bleeding, BMI 70+ endometrial curettings excision No 03/03/2022 9:49 AM Time specimen removed from patient: 9:05 AM Number of tissue samples (in container) 1 Biospecimen to store? No SPECIMEN [place] 4 [id number] abnormal uterine bleeding, BMI 70+ Myosure Curettings [...] Swain MD - 03/03/2022 8:25 AM EDT [facility] Operative Note ?? Patient Name: Zenia Worley : [id number] MR#: [id number] ?? Case Date: 03/03/2022 ?? Surgeon: Surgeon(s) and Role: * Sabrina Swain MD - Primary * Saarhi Mercedes MD - Resident * Marco Patel [...] Pap or cervical biopsy? No ? Prior HEALTH LEAD therapy? ([facility] bx, Cautery, Cryotherapy, Surgery) No ? History of HPV vaccination? No ? ICD-10 Diagnosis: Z12.4 Encounter for screening for malignant neoplasm of cervix ? SPECIMEN TO PATHOLOGY ?? [place]ermanent OR4 [id number] abnormal uterine bleeding, BMI 70+ endometrial curettings excision No 03/03/2022 9:49 AM Time specimen removed from patient: 9:05 AM ? Number of tissue samples (in container) 1 ? Biospecimen to store? No ? SPECIMEN TO PATHOLOGY ?? [place]ermanent [place] 4 [id number] abnormal uterine bleeding, BMI 70+ Myosure Curettings [...] placed in the dorsal lithotomy position in [facility].An exam under anesthesia revealed the above noted [...] IUD was inserted to the fundus per supervisor filtration specifications. The strings were trimmed. The tenaculum [...] can, buy fresh vegetables and fruit from [employer]-sent message with resources -Choose whole grain options [...] Note: Practice STOP and Urge Surfing. Health Order Dispatcher will send hand-outs. Movement Lifestyle On track( 1:14 PM EDT) Riddhi Buchanan RD Note: Continue to walk stairs and walks when can. Will continue using stairs as it's colder. Look into finding weights free online or at [employer] stores. Could use water-filled milk jugs as [...] EDT HPV Routine 03/03/2022 8:39 AM EDT HEALTH LEAD CYTOLOGY INTERPRETATION Routine 03/03/2022 8:39 AM EDT HEALTH LEAD CYTOLOGY FINAL REPORT Routine 03/03/2022 8:39 AM EDT CYTOPATHOLOGY GYNECOLOGICAL Routine 03/03/2022 8:39 AM EDT Echography Transvaginal Non-Ob (39198) 03/03/2022 7:46 AM EDT Abnormal uterine bleeding Morbid obesity with BMI of 70 and over, adult Insert Intrauterine Device (86784) 03/03/2022 7:46 AM EDT Abnormal uterine bleeding Morbid obesity with BMI of 70 and over, adult CHG CYTOPATH,CERV/VAG,AUTO THIN LAYER,INTERP 03/03/2022 7:46 AM EDT Abnormal uterine bleeding Morbid obesity with BMI of 70 and over, adult Pelvic Examination W Anesth (06289) 03/03/2022 7:46 AM EDT Abnormal uterine bleeding Morbid obesity with BMI of 70 and over, adult Hysteroscopy, W/Endo Bx (47826) 03/03/2022 7:46 AM EDT Abnormal uterine bleeding [...] Glucose, POC 239(H) 65 - 199 mg/dL [facility] Comment: Supplemental ranges: <140 mg/dL before meals <180 mg/dL all other times of the day Blood 03/03/2022 10:4 5 AM EDT 03/03/2022 10:45 AM EDT Sabrina Swain MD POINT OF CARE TEST O RDERABLES [facility] [place] [address] * (ABNORMAL) POCT Glucose (03/03/2022 10:10 AM EDT) Glucose, POC 242(H) 65 - 199 mg/dL [facility] Comment: Supplemental ranges: <140 mg/dL before meals <180 mg/dL all other times of the day Blood 03/03/2022 10:1 0 AM EDT 03/03/2022 10:10 AM EDT Sabrina Swain MD POINT OF CARE TEST O JET Performing Organization Address City/[facility] [place] [address] * Specimen to Pathology (03/03/2022 10:05 AM EDT) AP Specimen 03/03/2022 10:0 5 AM EDT 03/03/2022 10:05 AM EDT Narrative [facility] - 03/03/2022 10:05 AM EDT Specimen requisition ordered. ??Separate Pathology report to follow Sabrina Swain MD PATHOLOGY/CYTOLOGY O JET Performing Organization Address [facility] [place] [address] * Specimen to Pathology (03/03/2022 9:50 AM EDT) AP Specimen 03/03/2022 9:50 AM EDT 03/03/2022 9:50 AM EDT Narrative [facility] - 03/03/2022 9:50 AM EDT Specimen requisition ordered. ??Separate Pathology report to follow Sabrina Swain MD PATHOLOGY/CYTOLOGY O JET Performing Organization Address [facility] Co de Phone Number [facility] [place] [address] * Specimen to Pathology (03/03/2022 9:50 AM EDT) AP Specimen 03/03/2022 9:50 AM EDT 03/03/2022 9:50 AM EDT Narrative [facility] - 03/03/2022 9:50 AM EDT Specimen requisition ordered. ??Separate Pathology report to follow Sabrina Swain MD PATHOLOGY/CYTOLOGY O JET Performing Organization Address City/[facility]/ZIP Co de Phone Number [facility] [place] [address] * Surgical Pathology Report (03/03/2022 9:05 AM EDT) Final Diagnosis [id number] ? Location: [facility]; [facility]; A The signing pathologist has (i) examined [...] DO Verified: ??03/10/2022 15:40 ??Pathologist Performed at: ??-[facility] Dept. of Pathology, [place], [place] SPECIMEN(S) SUBMITTED A - Endometrial curettings, [...] labeled B1-B5. ??jnr 03/10/2022 3:40 PM EDT [facility] ENDOMETRIAL STRUCTURE / Unknown 03/03/2022 9:05 AM EDT 03/03/2022 9:05 AM EDT ENDOMETRIAL STRUCTURE / Unknown 03/03/2022 9:05 AM EDT 03/03/2022 9:05 AM EDT Sabrina Swain MD PATHOLOGY/CYTOLOGY O JET Performing Organization Address [facility] de Phone Number [facility] [place] [address] * HEALTH LEAD Cytology Interpretation (03/03/2022 8:39 AM EDT) Orchard Worker Cytology Interpretation [facility] Comment:Orchard Worker Cytology Final R eport Orchard Worker Cytology Comment Present [facility] Endocervical Component Present [facility] AP Specimen 03/03/2022 8:39 AM EDT 03/12/2022 11:33 AM EDT Sabrina Swain MD PATHOLOGY/CYTOLOGY O JET Performing Organization Address [facility] de Phone Number [facility] [place] [address] * Orchard Worker Cytology Final Report (03/03/2022 8:39 AM EDT) Orchard Worker Cytology Final Report [id number] ? Location: [facility]; [facility]; A The signing pathologist has (i) examined the relevant preparation(s) for the specimen(s) and (ii) rendered or confirmed the diagnosis(es). . ? Orchard Worker Final DIAGNOSIS Normal Negative for intraepithelial lesion or malignancy (NILM). For consensus guidelines for the management of cervical cancer screening test results, please see: ?? http://www.asccp.o rg . Electronically signed by: ?Alfredito CT(ASCP), Sidra Verified: ??03/12/2022 11:33 ??Registered Nurse Performed at: ??-[facility] Dept. of Pathology, [facility] [place], [place] DISCUSSION Scant [...] Clinical Genomics and Advanced Technology (CGAT) at [facility]. ? - Jeromy Kam, PhD, [facility], Director-CGAT STATEMENT OF ADEQUACY Specimen submitted is satisfactory. Endocervical component present. CLINICAL INFORMATION HPV Option: ?Concurrent HPV and Pap CT/NG Option: ?Yes Preparation: ? Liquid based Pap Specimen Source: ? Cervical/Endocervi qing LMP: ? Unknown Hysterectomy: ?No : ?No : ?No I.U.D.: ?No Pelvic Radiation: ?No Hist Abnl Pap/Biopsy: ?No Prior HEALTH LEAD Therapy: ? No . CLINICAL INFORMATION Hist of HPV Vaccine: ? No ICD Diagnosis: ? Z12.4 Encounter for screening for malignant neoplasm of cervix Clinical Data, Significant Therapy and Clinical Impression ?? : ?(not provided) Note: The Pap test is a screening test for cervical cancer with an inherent false-negative rate dependent upon several variables. For further information please contact the [facility] Laboratory. Reference: Paula CLEMENTS. Engineering Assistant of Pap Smear Results. In: Aruna BS, Jorge Luis SKINNER, ed. The Pap Smear. [place]: Alexander, 2002: 71-77. [facility] 03/03/2022 8:39 AM EDT Sabrina Swain MD PATHOLOGY/CYTOLOGY O RDERABLES [facility] [place] [address] * HPV (03/03/2022 8:39 AM EDT) HPV16 NEGATIVE NEGATIVE [facility] HPV 18 NEGATIVE NEGATIVE [facility] HPV Other HR NEGATIVE NEGATIVE [facility] HPV Interpretation See Comment [facility] Comment: NEGATIVE for high-risk HPV [...] In Lab Sabrina Swain MD PATHOLOGY/CYTOLOGY O RDERAEWDARD [facility] [place] [address] * CT/NG PCR (03/03/2022 8:39 AM EDT) Chlamydia Gene Amp Negative Negative [facility] Comment: This assay was performed in the [facility] Clinical [employer] and [employer] Laboratory using the cristina CT/NG Test ([employer] The cristina CT/NG Test is an [...] symptomatic and asymptomatic individuals. Chlm Source Cervical [facility] GC Gene Amp Negative Negative [facility] Comment: This assay was performed in the [facility] Clinical [employer] [facility] [employer] Laboratory using the cristina CT/NG Test ([employer] The cristina CT/NG Test is [...] Swain MD MOLECULAR ORDERABLES Performing Organization Address [facility] Co de Phone Number [facility] [place] [address] * Cytopathology Gynecological (03/03/2022 8:39 AM EDT) AP Specimen 03/03/2022 8:39 AM EDT 03/03/2022 8:39 AM EDT Narrative [facility] - 03/03/2022 8:39 AM EDT Specimen requisition ordered. ??Separate Pathology report to follow Sabrina Swain MD PATHOLOGY/CYTOLOGY O RDBAN Performing Organization Address [facility] de Phone Number [facility] [place] [address] * (ABNORMAL) POCT Glucose (03/03/2022 6:31 AM EDT) Glucose, POC 259(H) 65 - 199 mg/dL [facility] Comment: Supplemental ranges: <140 mg/dL before meals <180 mg/dL all other times of the day Blood 03/03/2022 6:31 AM EDT 03/03/2022 6:31 AM EDT Sabrina Swain MD POINT OF CARE TEST O JET Performing Organization Address [facility] Co de Phone Number [facility] [place] [address] documented in this encounter Visit Diagnoses Diagnosis [...] Intravenous, EVERY 5 MIN PRN, Starting on e 03/03/22 at 1026, Until Tu03/03/22 at 1413, Pain, Mild to moderate pain [...] Intravenous, EVERY 5 MIN PRN, Starting on e 03/03/22 at 1026, Until Tu03/03/22 at 1413, Pain, Moderate to severe pain [...] Intravenous, EVERY 10 MIN PRN, Starting on e 03/03/22 at 1026, Until Tu03/03/22 at 1413, Pain, [...] Intravenous, EVERY 10 MIN PRN, Starting on 03/03/22 at 1026, Until Tu03/03/22 at 1413, Pain, [...] Routine documented in this encounter Care Teams U.[place]. Commissioner Relationship Specialty Start Date End Date Lia Pearson APRN [address] [place] [address] PCP - General Geriatric Medicine 02/09/22 documented as of this encounter
--- OUTSIDE RECORDS SUMMARY | 2024-02-13 18:05 | XMS_ITS | Referral Summary ---
Author Organization [facility] Address [address] [place] [address] Care Team Providers Care Service Liaison Representative Name Role Phone Lisa Yan SIGNAL TOWER DIRECTOR Unavailable [phone] Lisa Yan SIGNAL TOWER DIRECTOR Unavailable Lia Pearson APRN Primary Care Provider [phone] Encounters Date Type Department Care Team Description 12/13/2023 Refill [facility] Endocrinology [address], [place] [id number] Lilibeth Arguello, TOM Medications Refill from Last 3 Months Allergies Active Allergy Reactions Criticality Noted Date Comments Fluoxetine 03/19/2021 Medications Medication Sig Dispensed Refills Start Date End Date Status oxygen-air delivery systems (HORIZON NASAL CPAP SYSTEM MISC) by misc (non-drug; combo route) route. Active polyethylene glycol (MIRALAX) 17 gram/dose powder Take 17 g by mouth daily. prn Active prazosin (MINIPRESS) 5 mg capsule at bedtime. 1 Active insulin pen needles 32G x 5/32 (PEN NEEDLE) 1 pen needle by misc (non-drug; combo route) route 5 times daily. 500 Each 2 2 Active ferrous gluconate (FERATE) 324 mg (37.5 mg iron) tablet tablet Take 1 Tablet by mouth 2 times daily with breakfast and dinner. 2 Active cyanocobalamin (VITAMIN B-12) 500 mcg tablet Take 2 Tablets by mouth daily. Active norethindrone (AYGESTIN) 5 mg tablet Take 1 Tablet by mouth daily. Taking 2 tabs daily 3 times daily 2 Active glucose 4 gram tablet,chewable chewable tablet CHEW ONE TABLET BY MOUTH EVERY 10 MIN. NEEDED FOR HYPOGLYCEMIA UNTIL SYMPTOMS OF LOW BLOOD SUGAR ARE CONTROLLED 2 Active chlorproMAZINE (THORAZINE) 50 mg tablet Take 1 Tablet by mouth at bedtime. 2 Active acetaminophen (TYLENOL) 325 mg tablet TAKE TWO TABLETS BY MOUTH EVERY 4 HOURS NEEDED FOR PAIN 2 Active traZODone (DESYREL) 150 mg tablet Take 2 Tablets by mouth at bedtime. 3 Active POISE PADS pad USE FOR ABNORMAL VAGINAL BLEEDING 3 Active PREVAIL EXTRA UNDERWEAR misc USE FOR ABNORMAL VAGINAL BLEEDING 3 Active chlorproMAZINE (THORAZINE) 100 mg tablet Take 3 Tablets by mouth daily. 3 Active ARIPiprazole (ABILIFY) 20 mg tablet TAKE 1 TABLET BY MOUTH ONCE DAILY FOR SCHIZOAFFECTIVE DISORDER BIPOLAR TYPE 3 Active ONETOUCH DELICA PLUS LANCET 33 gauge misc 3 Active rosuvastatin (CRESTOR) 40 mg tablet Take 1 Tablet by mouth at bedtime. 90 Tablet 3 3 Active FARXIGA 5 mg tablet Take 5 mg by mouth daily. 90 Tablet 3 4 Active ARIPiprazole (ABILIFY) 5 mg tablet Take 1 Tablet by mouth daily. 4 Active omeprazole (PRILOSEC) 40 mg capsule Take 1 Capsule by mouth every morning. 4 Active ondansetron (ZOFRAN-ODT) 4 mg disintegrating tablet 4 Active prochlorperazine (COMPAZINE) 5 mg tablet 1 Tablet. prn 4 Active methocarbamoL (ROBAXIN) 500 mg tablet 3 Active hydrOXYzine (VISTARIL) 25 mg capsule Take 1 Capsule by mouth 3 times daily as needed. 4 Active pen needle,diabetic dual safty (BD AUTOSHIELD DUO PEN NEEDLE) 30 gauge x 07/30 needle USE UP TO 5 PEN NEEDLES DAILY 500 Each 3 4 Active metoprolol SUCCinate (TOPROL-XL) 100 mg tablet 3 Active losartan (COZAAR) 100 mg tablet Take 1 Tablet by mouth daily. 4 Active furosemide (LASIX) 20 mg tablet TAKE 1 TO 2 TABLETS BY MOUTH EVERY MORNING 3 Active Cholecalciferol, Vitamin D3, 50 mcg capsule Take 1 Capsule by mouth daily. 4 Active Underpads 30 X 36 pad USE ONCE DAILY NEEDED 3 Active GLUCAGEN HYPOKIT 1 mg recon soln INJECT 1MG UNDER THE SKIN EVERY 20 MIN NEEDED UNTIL BLOOD SUGAR ATTAINED 3 Active ONETOUCH VERIO TEST STRIPS test strips USE TO TEST BLOOD SUGARS BEFORE MEALS AND AT BEDTIME TO MAINTAIN A1C LESS THAN 7 3 Active levothyroxine (SYNTHROID) 200 mcg tabletIndications:O ther specified hypothyroidism Take 1 Tablet by mouth daily. 90 Tablet 3 4 Active gabapentin (NEURONTIN) 300 mg capsule TAKE ONE CAPSULE BY MOUTH THREE TIMES A DAY 270 Capsule 1 4 Active doxepin (SINEQUAN) 10 mg capsule 4 Active UNABLE TO FIND Med Name: calcium chewable- unure of dose or formulation, and mvi, Active metFORMIN (GLUCOPHAGE-XR) 500 mg ER tabletIndications:T ype 2 diabetes mellitus with hyperglycemia, with long-term current use of insulin ([facility]) Take 1 Tablet by mouth 2 times daily. 180 Tablet 3 4 Active insulin glargine 100 unit/mL (3 mL) injection penIndications:Type 2 diabetes mellitus with hyperglycemia, with long-term current use of insulin ([facility]) Inject 6 Units into the skin once daily AND 7 Units at bedtime. E11.65. 15 mL 2 4 Active HUMALOG KWIKPEN INSULIN 100 unit/mL injectable penIndications:Type 2 diabetes mellitus with hyperglycemia, with long-term current use of insulin ([facility]) TDD 36 units, per sliding scale with meals twice daily 33 mL 2 4 Active Active Problems Patient Care Coordination No te Formatting of this note migh t be different from the original. CLINIC: Unable to access PT's MBI without her SSN, please ask PT for this information at appt. Yudi Davis 12/03/2020 13:48 Problem Noted Date Diagnosed Date Uses self-applied continuous glucose monitoring device 08/13/2023 Long-term insulin use ([facility]) 09/26/2021 tank terminal gauger 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 09/26/2021 Essential hypertension, benign 09/26/2021 Last Assessment & Plan: BP at goal. BMI 60.0-69.9, adult ([facility]) 03/19/2021 Last Assessment & Plan: Long discussion on bariatric surgery today. Would like to have clearance from cardiology prior to with her recent CV concerns. Schizoaffective disorder ([facility]) 02/26/2021 Dissociation 02/26/2021 PTSD (post-traumatic stress disorder) [...] hyperglycemia, with long-term current use of insulin ([facility]) 02/26/2021 Last Assessment & Plan: Uncontrolled A1C 9.3 No BG's today. Reports elevations in AM. BG at 66 upon recheck, given juice, crackers/PB., additional to take with. Increase lantus 7 units PM and continue 6 units AM, continue to hold this mornings going to work at [employer]. Continue with Metformin XR 500 mg twice [...] 63.07 10/29/2023 1025 EDT Plan of Treatment Not on file Procedures Procedure Name Priority Date/Time Associated Diagnosis Comments POCT HEMOGLOBIN A1C Routine 10/29/2023 Type 2 diabetes mellitus with hyperglycemia, with long-term current use of insulin ([facility]) LIPID PROFILE (INCLUDES CHOLESTEROL, TRIGLYCERIDES, HDL, LDL) Routine 08/13/2023 9:58 EDT Type 2 diabetes mellitus with hyperglycemia, with long-term current use of insulin ([facility]) URINE [id number] E RATIO (ACR) Routine 08/13/2023 9:58 EDT Type 2 diabetes mellitus with hyperglycemia, with long-term current use of insulin ([facility]) from Last 3 Months or Most Recently Relevant to Health Maintenance Results * (ABNORMAL) POCT HEMOGLOBIN A1C (10/29/2023) Hemoglobin A1c, POC 9.3(A) 5.7 % [facility] POINT OF CARE Blood CAPILLARY BLOOD / Unknown 10/29/2023 Lisa Yan NP POINT OF CARE SARAY T ORDERABLES [facility] POINT OF CARE * (ABNORMAL) URINE [id number] RATIO (ACR) (08/13/2023 9:58 EDT) Pathologist [facility] Albumin, Urine 74.1 See Note mg/dL 2023 17:16 EDT [facility] Comment: NOTE: Reference range not established Creatinine, Urine 44.5 See Note mg/dL 08/13/2023 17:16 EDT [facility] Comment: NOTE: Reference range not established Lab Urine Albumin to Creatinine Ratio 1,665(H) <30 ??g/mg Creatinine 08/13/2023 17:16 EDT [facility] Comment: Urine Albumin/Creatinine Ratio: Normal: <30 ug/mg Creatinine Moderately increased albuminuria: 30-300 ug/mg Creatinine Severely increased albuminuria: >300 ug/mg Creatinine Urine URINE / Unknown Urine Collect / Unknown 08/13/2023 9:58 EDT 08/13/2023 11:25 EDT Lisa Yan NP CHEMISTRY & BLOOD GAS ORDERABLES [facility] [address] [place] [address] * (ABNORMAL) LIPID PROFILE (INCLUDES CHOLESTEROL, TRIGLYCERIDES, HDL, LDL) (08/13/2023 9:58 EDT) Cholesterol 175 <200 mg/dL 08/13/2023 11:11 EDT [facility] Comment:Note that therapeuti c goals will differ between patients based on cardiac risk factors and current medical therapy. HDL 43(L) >=50 mg/dl 08/13/2023 11:11 T [facility] Comment:Note that therapeuti c goals will differ between patients based on cardiac risk factors and current medical therapy. LDL, Calculated 114 <160 mg/dL 11:11 T [facility] Comment:Note that therapeuti c goals will differ between patients based on cardiac risk factors and current medical therapy. Triglyceride 90 <=150 mg/dL 08/13/2023 11:11 [facility] Comment:Note that therapeuti c goals will differ between patients based on cardiac risk factors and current medical therapy. Chol/HDL Ratio 4.1 See Note 08/13/2023 11:11 [facility] Comment: NOTE: Desirable Ratio = <4.1 Patient At Risk Ratio = >5.0(Males) ?>6.0(Females) Non HDL Cholesterol 132 <160 mg/dL 08/13/2023 11:11 [facility] Comment:Note that therapeuti c goals will differ between patients based on cardiac risk factors and current medical therapy. Blood VENOUS BLOOD / Unknown Venipuncture / Unknown 08/13/2023 9:58 EDT 08/13/2023 10:24 EDT Lisa Yan NP CHEMISTRY & BLOOD GAS ORDERABLES [facility] [address] [place] [address] from Last 3 Months or Most Recently Relevant to Health Maintenance Care Teams Service Liaison Representative Relationship Specialty Start Date End Date Lia Pearson APRN [address] [place] [id number] PCP - General Family Medicine - [facility] Medicine 09/26/21 Lisa Yan NP [address] [place] [phone] Nurse Practitioner Endocrinology, Diabetes and Metabolism 03/19/21 Lisa Yan NP [address] [place], [place] [phone] Nurse Practitioner Endocrinology, Diabetes and Metabolism 06/06/21
--- OUTSIDE RECORDS SUMMARY | 2024-02-13 18:05 | XMS_ITS | Encounter Summary ---
[place] [address] Care Team Providers Care Land Developer Name Role Phone Anita Plummer Primary Care Provider [phone] Reason for Referral * Consultation (Urgent) - Closed Specialty Diagnoses / Procedures Referred By Della kern Referred To Contact Gastroenterology Diagnoses Dysphagia, unspecified type Dysphagia Procedures EGD Sedation: Anesthesia Timeframe: within 3 Weeks -- B. Indication: Dysphagia, feeling like choking This procedure should be performed with: Any Endoscopist Anita Plummer PA [address] [address] [facility] Endoscopy [address] [place] [address] Referral ID Status Reason Start Date Expiration Date V isits Requested Visits Authorized [id number] Closed Consult, Test & Treat 01/27/2022 01/27/2023 6 6 Encounter Details Date Type Department Care Team (Late st Contact Info) Description 01/27/2022 Transcribe Orders eDH Incoming Referrals [phone] Anita Plummer PA [address] [id number] Dysphagia, unspecified type Social History Tobacco Use [...] can, buy fresh vegetables and fruit from [employer]-sent message with resources -Choose whole grain options [...] Note: Practice STOP and Urge Surfing. Health Needle Loom Weaver will send hand-outs. documented as of this encounter Visit Diagnoses Diagnosis Dysphagia, unspecified type documented in this encounter Care Teams Land Developer Relationship Specialty Start Date End Date Anita Plummer PA [address] [place] [id number] PCP - General Urgent Care 01/27/22 02/08/22 documented as of this encounter
--- OUTSIDE RECORDS SUMMARY | 2024-02-13 18:05 | XMS_ITS | Encounter Summary ---
Author Organization [facility] Address [facility] [place] [address] Care Team Providers Care Information Systems Specialist Name Role Phone Lia Pearson CRUCIBLE PACKER Primary Care Provider [phone] Encounter Details Date Type Department Care Team (Late st Contact Info) Description 01/08/2022 Telephone Weight and Wellness at [address] [phone] Jenni Waller MD [facility] [place] [address] Social History Tobacco Use Types Packs/Day Years [...] can, buy fresh vegetables and fruit from [employer]-sent message with resources -Choose whole grain [...] insulin documented in this encounter Care Teams Information Systems Specialist Relationship Specialty Start Date End Date Lia Pearson APRN [address] [place] [address] PCP - General Geriatric Medicine 10/15/21 01/26/22 documented as of this encounter
--- OUTSIDE RECORDS SUMMARY | 2024-02-13 18:05 | XMS_ITS | Encounter Summary ---
Author Organization [facility] [place] [address] Care Team Providers Care Vehicle Fare Collector Name Role Phone Lia Pearson APRN Primary Care Provider [phone] Reason for Referral * Consultation (Routine) - Closed Specialty Diagnoses / Procedures Referred By Della kern Referred To Contact Weight and Wellness Diagnoses Class 3 severe obesity with body mass index (BMI) of 60.0 to 69.9 in adult, unspecified obesity type, unspecified whether serious comorbidity present Jenni Waller MD [facility] [address] [facility] [address] [place] [phone] Referral ID Status Reason Start Date Expiration Date V isits Requested Visits Authorized [id number] Closed Consult, Test & Treat 02/20/2022 02/20/2023 1 1 Encounter Details Date Type Department Care Team (Late st Contact Info) Description 02/20/2022 1:15 PM EDT Office Visit Weight and Wellness at [address] [phone] Jenni Waller MD [facility] [place] [address] Class 3 severe obesity with body mass [...] Waller MD - 02/20/2022 1:15 PM EDT [facility] Patient Name: Zenia Worley Date of : 1990 Age: 31 y.o. iLa Pearson APRN Thank you for referring Zenia [...] Migraine headaches, PTSD.. This is Visit #2 [facility] visit for this 31 y.o. patient. Weight gain due to: : IR since her teens Why is now the time to try again? Got out from under family who did not want her ot have surgery Initial visit/weight Highest weight 450-460# Initial BS weight: 433 Initial weight 12/19/21: 429.75 on 11/[address] Swain (knitted cloth examiner) Initial BMI: 72 Goal weight: <200 10% loss: 390 Other goals: health Today's weight: 421.75 Change since prior: -11 [facility] Team: Jenni Waller MD, Riddhi Wilson RD and Davidson Allen, Health Transportation Consultant HPI TODAY PATIENT REPORTS Long discussion at [...] responses. She has Counselor locally - in [facility],but unclear about how effective this tx has [...] for post op moniotring. Psychiatrist: Sheryl Friedman, [facility], recently retired; will transition [...] who drink at all. Therapist is in [facility]. Angela plans to call her- patient [...] not change dose of gabapentin. Managed by assistant product manager - had discussed tapering it with her. [...] started Humalog then - currently 6units if loog221 at meals (infrequent) and Lantus - 19 units bid at the same time, Ozemipc 0.5mg Has to stay on SSI to keep CGM - up to 35 unit tid This past year finally got her DM under control (prior to using Ozempic). CGM really helped. Prior Medications: NONE Following with: assistant product manager at [facility] or [facility], Lilian Wesley APRN - ?? Insulin up Overnight she [...] by brother age 13/she initiatedcall with rehabilitation caseworker/mother did not believe her and advised she [...] Pathways-bariatric process specific to her as above, [facility] PATHWAY - ADULT 12/19/2021 Pre- Bariatric Surgery Activate Bariatric Surgery Program Requirements and further recommendations: BARIATRIC CHECKLIST [x] HgbA1c <8 [x] requires 20# weight loss d/t BMI >60 [x] Completed requirements for dietary counseling [x] Attended bariatric information session 12/29/21 Appt schedule with [facility] on 02/18 - YELLOW LIGHT as above [...] 6.2 (H) 11/12/2021 No results found for: [id number] 25-OH Vit D Total (no units) Date [...] and Thyroid dz Referrals pending: Dietitian, Health Transportation Consultant, AOM: Continue Ozempic Maximize Dose when available for weight loss and DM control per Lisa wesley DM: per Lisa ?? Diagnoses and all orders for this visit: Class 3 severe obesity with body mass index (BMI) of 60.0 to 69.9 in adult, unspecified obesity type, unspecified whether serious comorbidity present - Amb Referral to [facility] Psych Evaluation Type 2 diabetes mellitus with hyperglycemia, with long-term current use of insulin - Cancel: Hepatic Function Panel; Future Vitamin D deficiency Orders Placed This Encounter Procedures ??? Amb Referral to [facility] Psych Evaluation Return in about 3 months (around 05/23/2022) for MD Romo or clinic, //ACT, //HLP - all three. 14 min chart review 30 min [id number] Visit time And Documentation time I spent time as above caring for this patient today; reviewing labs, writing prescriptions, documenting visit, examining the patient, arranging other specialty care, counseling in diet and/or exercise and discussion of treatment options in the care of obesity. documented in this encounter Plan of Treatment Scheduled Referrals Name Type Priority Associated Diagnoses Orde r Schedule Amb Referral to [facility] Psych Evaluation Outpatient Referral Routine Class [...] can, buy fresh vegetables and fruit from [email or web address]-sent message with resources -Choose whole grain options [...] Note: Practice STOP and Urge Surfing. Health Transportation Consultant will send hand-outs. Movement Lifestyle On track( 023 1:14 PM EDT) Riddhi Buchanan RD Note: Continue to walk stairs and walks when can. Will continue using stairs as it's colder. Look into finding weights free online or at [employer]. Could use water-filled milk jugs as weights-a [...] deficiency documented in this encounter Care Teams Vehicle Fare Collector Relationship Specialty Start Date End Date Lia Pearson APRN [address] [place] [address] PCP - General Geriatric Medicine 02/09/22 documented as of this encounter
--- OUTSIDE RECORDS SUMMARY | 2024-02-13 18:05 | XMS_ITS | Encounter Summary ---
[place] [address] Care Team Providers Care Poultry Service Technician Name Role Phone Lia Pearson APRN Primary Care Provider [phone] Reason for Visit * Reason Onset Date Comments Appointment 02/24/2022 Encounter Details Date Type Department Care Team (Late st Contact Info) Description 02/24/2022 Telephone Weight and Wellness at [address] [phone] Zenia Sullivan Appointment Social History [...] can, buy fresh vegetables and fruit from [employer] market-sent message with resources -Choose whole grain [...] Note: Practice STOP and Urge Surfing. Health Cycle Manager will send hand-outs. Movement Lifestyle On track( 023 1:14 PM EDT) Riddhi Buchanan RD Note: Continue to walk stairs and walks when can. Will continue using stairs as it's colder. Look into finding weights free online or at [employer] stores. Could use water-filled milk jugs as weights-a full gallon jug would be 8 lbs. Will look into nearby [facility] 04/16/22 NATHALIA documented as of this encounter Visit Diagnoses Not on filedocumented in this encounter Care Teams Poultry Service Technician Relationship Specialty Start Date End Date Lia Pearson APRN [address] [place] [place] [address] PCP - General Geriatric Medicine 02/09/22 documented as of this encounter
--- OUTSIDE RECORDS SUMMARY | 2024-02-13 18:05 | XMS_ITS | Clinical Summary ---
Author Organization [facility] Address [address] [place] [address] Care Team Providers Care Economic Development Specialist Name Role Phone iLsa Yan STEAM HAND Unavailable [phone] Lisa Yan STEAM HAND Unavailable Lia Pearson APRN Primary Care Provider [phone] Allergies Active Allergy Reactions Criticality Noted Date [...] hyperglycemia, with long-term current use of insulin ([facility]) Take 1 Tablet by mouth 2 times daily. 180 Tablet 3 4 Active insulin glargine 100 unit/mL (3 mL) injection penIndications:Type 2 diabetes mellitus with hyperglycemia, with long-term current use of insulin ([facility]) Inject 6 Units into the skin once daily AND 7 Units at bedtime. E11.65. 15 mL 2 4 Active HUMALOG KWIKPEN INSULIN 100 unit/mL injectable penIndications:Type 2 diabetes mellitus with hyperglycemia, with long-term current use of insulin ([facility]) TDD 36 units, per sliding scale with [...] glucose monitoring device 08/13/2023 Long-term insulin use ([facility]) 09/26/2021 long term 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 09/26/2021 Essential hypertension, benign 09/26/2021 Last Assessment & Plan: BP at goal. BMI 60.0-69.9, adult ([facility]) 03/19/2021 Last Assessment & Plan: Long discussion on bariatric surgery today. Would like to have clearance from cardiology prior to with her recent CV concerns. Schizoaffective disorder ([facility]) 02/26/2021 Dissociation 02/26/2021 PTSD (post-traumatic [...] use of insulin ([facility]) 02/26/2021 Last Assessment & Plan: Uncontrolled A1C 9.3 No BG's today. Reports elevations in AM. BG at 66 upon recheck, given juice, crackers/PB., additional to take with. Increase lantus 7 units PM and continue 6 units AM, continue to hold this mornings going to work at [employer]. Continue with Metformin XR 500 mg twice [...] Type Department Care Team Description 12/13/2023 Refill [facility] Endocrinology [address] [place] [address] Lilibeth Arguello, RN Medications Refill from Last 3 Months Social History Tobacco [...] 63.07 10/29/2023 1025 EDT Plan of Treatment Health Maintenance Due Date Last Done Comments Hepatitis C Screen 1992 Pneumococcal Immunization (1 of 2 - PCV) 1998 Hepatitis B Vaccine (1 of 3 - 19+ 3-dose series) 2011 Eye Exam 01/08/2023 01/08/2022 COVID-19 Vaccine (1 - 2022-2 4 season) 2024 Hemoglobin A1C (Ha1C) 04/29/2024 10/29/2023 , 08/13/2023, [...] use of insulin ([facility]) URINE GWSHOYX-EV-GGESEHAKK E RATIO (ACR) Routine 08/13/2023 9:58 EDT Type 2 diabetes mellitus with hyperglycemia, with long-term current use of insulin ([facility]) from Last 3 Months or Most Recently Relevant to Health Maintenance Results * (ABNORMAL) POCT HEMOGLOBIN A1C (10/29/2023) Hemoglobin A1c, POC 9.3(A) 5.7 % [facility] POINT OF CARE Blood CAPILLARY BLOOD / Unknown 10/29/2023 Lisa Yan NP POINT OF CARE SARAY T ORDERABLES [facility] POINT OF CARE * (ABNORMAL) URINE AIIVCMD-OJ-HWIATYTPPG RATIO (ACR) (08/13/2023 9:58 EDT) Albumin, Urine 74.1 See Note mg/dL 2023 17:16 EDT [facility] Comment: NOTE: Reference range not established Creatinine, Urine 44.5 See Note mg/dL 08/13/2023 17:16 EDT [facility] Comment: NOTE: Reference range not established Lab Urine Albumin to Creatinine Ratio 1,665(H) <30 ??g/mg Creatinine 08/13/2023 17:16 EDT [facility] Comment: Urine Albumin/Creatinine Ratio: Normal: <30 ug/mg Creatinine Moderately increased albuminuria: 30-300 ug/mg Creatinine Severely increased albuminuria: >300 ug/mg Creatinine Urine URINE / Unknown Urine Collect / Unknown 08/13/2023 9:58 EDT 08/13/2023 11:25 EDT Lisa Yan NP CHEMISTRY & BLOOD GAS ORDERABLES [facility] [address] [place] [address] * (ABNORMAL) LIPID PROFILE (INCLUDES CHOLESTEROL, TRIGLYCERIDES, HDL, LDL) (08/13/2023 9:58 EDT) Cholesterol 175 <200 mg/dL 08/13/2023 11:11 EDT [facility] Comment:Note that therapeuti c goals will differ between patients based on cardiac risk factors and current medical therapy. HDL 43(L) >=50 mg/dl 08/13/2023 11:11 T [facility] Comment:Note that therapeuti c goals will differ between patients based on cardiac risk factors and current medical therapy. LDL, Calculated 114 <160 mg/dL 11:11 [facility] Comment:Note that therapeuti c goals will differ between patients based on cardiac risk factors and current medical therapy. Triglyceride 90 <=150 mg/dL 08/13/2023 11:11 T [facility] Comment:Note that therapeuti c goals will differ between patients based on cardiac risk factors and current medical therapy. Chol/HDL Ratio 4.1 See Note 08/13/2023 11:11 [facility] Comment: NOTE: Desirable Ratio = <4.1 Patient At Risk Ratio = >5.0(Males) ?>6.0(Females) Non HDL Cholesterol 132 <160 mg/dL 08/13/2023 11:11 [facility] Comment:Note that therapeuti c goals will differ between patients based on cardiac risk factors and current medical therapy. Blood VENOUS BLOOD / Unknown Venipuncture / Unknown 08/13/2023 9:58 EDT 08/13/2023 10:24 EDT Lisa Yan NP CHEMISTRY & BLOOD GAS ORDERABLES [facility] [address] [place] [address] from Last 3 Months or Most Recently Relevant to Health Maintenance Care Teams Economic Development Specialist Relationship Specialty Start Date End Date Lia Pearson APRN [address] [place] [phone] PCP - General Family Medicine - [facility] Medicine 09/26/21 Lisa Yan, STEAM HAND [address] [facility] [address] [place] [address] Nurse Practitioner Endocrinology, Diabetes and Metabolism 03/19/21 Lisa Yan STEAM HAND [address] [place] [address] [address] [place] [address] Nurse Practitioner Endocrinology, Diabetes and Metabolism 06/06/21
--- OUTSIDE RECORDS SUMMARY | 2024-02-13 18:05 | XMS_ITS | Encounter Summary ---
[place] [address] Care Team Providers Care Chute Man Name Role Phone Lia Pearson APRN Primary Care Provider [phone] Encounter Details Date Type Department Care Team (Late st Contact Info) Description 01/09/2022 Telephone Hematology [place] [phone] Sandra Siddiqui RN Social History Tobacco Use [...] can, buy fresh vegetables and fruit from [employer]-sent message with resources -Choose whole grain options [...] on filedocumented in this encounter Care Teams Chute Man Relationship Specialty Start Date End Date Lia Pearson APRN [address] [place] [address] PCP - General Geriatric Medicine 10/15/21 01/26/22 documented as of this encounter
--- OUTSIDE RECORDS SUMMARY | 2024-02-13 18:05 | XMS_ITS | Encounter Summary ---
Author Organization [facility] Address [facility] [place] [address] Care Team Providers Care Material Handling Technician Name Role Phone Lia Pearson APRN Primary Care Provider [phone] Encounter Details Date Type Department Care Team (Late st Contact Info) Description 01/07/2022 11:59 PM EDT Anesthesia Event [place] [address] Trinity Dumont MD [facility] [place] [address] Anesthesia Record Procedure Summary Procedure Name Responsible [...] 09/26/2021 ??? Long-term insulin use 09/26/2021 ??? [facility] 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 09/26/2021 [...] MD 01/06/2022 Perioperative Care Clinic phone extension: [phone] documented in this encounter Plan of Treatment [...] can, buy fresh vegetables and fruit from [employer]-sent message with resources -Choose whole grain options [...] on filedocumented in this encounter Care Teams Material Handling Technician Relationship Specialty Start Date End Date Lia Pearson APRN [address] [place] [address] PCP - General Geriatric Medicine 10/15/21 01/26/22 documented as of this encounter
--- OUTSIDE RECORDS SUMMARY | 2024-02-13 18:05 | XMS_ITS | Encounter Summary ---
[place] [address] Care Team Providers Care Side Trimmer Name Role Phone Lia Pearson APRN Primary Care Provider [phone] Reason for Referral * Consultation (Routine) - Closed Specialty Diagnoses / Procedures Referred By Della kern Referred To Contact Hematology and Oncology Diagnoses Von Willebrand's disease Lia Pearson APRN [address] [address] [facility] [address] [place] [address] Referral ID Status Reason Start Date Expiration Date V isits Requested Visits Authorized [id number] Closed Consult, Test & Treat 10/15/2021 10/15/2022 1 1 Encounter Details Date Type Department Care Team (Latest Contact Info) Description 10/15/2021 Transcribe Orders eDH Incoming Referrals [phone] Lia Pearson APRN [address] [place], [place] [id number] Von Willebrand's disease Social History Tobacco Use [...] disease documented in this encounter Care Teams Side Trimmer Relationship Specialty Start Date End Date Lia Pearson APRN [address] [place] [address] PCP - General Geriatric Medicine 10/15/21 01/26/22 documented as of this encounter
--- OUTSIDE RECORDS SUMMARY | 2024-02-13 18:05 | XMS_ITS | Encounter Summary ---
Author Organization [facility] Address [facility] [place] [address] Care Team Providers Care Production Support Developer Name Role Phone LiliLia JULIO C Primary Care Provider [phone] Encounter Details Date Type Department Care Team (Late st Contact Info) Description 01/16/2022 Orders Only Weight and Wellness at [place] [address] [place] [address] Jenni Waller MD [facility] [place] [address] Class 3 severe obesity with body mass [...] can, buy fresh vegetables and fruit from [employer]-sent message with resources -Choose whole grain options [...] insulin documented in this encounter Care Teams Production Support Developer Relationship Specialty Start Date End Date Lia Pearson APRN [address] [place] [address] PCP - General Geriatric Medicine 10/15/21 01/26/22 documented as of this encounter
--- OUTSIDE RECORDS SUMMARY | 2024-02-13 18:05 | XMS_ITS | Encounter Summary ---
Author Organization [facility] [place] [address] Care Team Providers Care Clinical Quality Analyst Name Role Phone Lia Pearson BACK FILLER OPERATOR Primary Care Provider [phone] Reason for Referral * Consultation (Routine) - Closed Specialty Diagnoses / Procedures Referred By Della kern Referred To Contact General Surgery Diagnoses Class 3 severe obesity with body mass index (BMI) greater than or equal to 70 in adult, unspecified obesity type, unspecified whether serious comorbidity present Type 2 diabetes mellitus with hyperglycemia, with long-term current use of insulin Jenni Waller MD [facility] [address] [address] [facility] [address] [place] [phone] Referral ID Status Reason Start Date Expiration Date V isits Requested Visits Authorized [id number] Closed Consult, Test & Treat 12/19/2021 12/19/2022 [...] current use of insulin Jenni Waller MD [facility] [place] [address] [facility] [address] [place] [phone] Referral ID Status Reason Start Date Expiration Date V isits Requested Visits Authorized [id number] Closed Consult, Test & Treat 12/19/2021 12/19/2022 1 1 Encounter Details Date Type Department Care Team (Late st Contact Info) Description 12/19/2021 8:45 AM EDT TH Visit (TeleHealth) Weight and Wellness at [facility] [address] [place] [address] Jenni Waller MD [facility] [place] [address] Class 3 severe obesity with body mass [...] to attend a Bariatric Surgery Information at [facility]. To register, please call: [phone] There is no obligation or charge by attending this session. Stop taking evening dose of Lantus Increase Ozempic to 1.0mg weekly. Stop taking midday dose of gabapentin I will send lab orders to [facility] - nonfasting. Try a later a bedtime - adults need 7-8 hours of sleep per night on average CBTi (Cognitive Behavioral Therapy for Insomnia) Computer Technology Teacher is a free rebecca developed by the MT that may help with your difficulties sleeping. Another option for Cognitive behavioral therapy include individual meetings with our psychologist in the [facility], Raisa Vallejo OR group CBTi through the psychiatry department. If either of these options interests you, let me know, and I can set up a referral. OR you can self-refer by calling [phone] You have expressed interest in pursuing bariatric [...] I have made referrals for the following: [x]In Service Educator - 3 monthly visits [x]Health trampoline team coach []Sleep Medicine [x][facility] Psychologist - this will be scheduled after you have made dietary changes that will prepare you for surgery (usually after your second dietary visit) [x]Research coordinator - our research coordinator will contact you to discuss current studies at the [facility] If you were not seen in the office, OUR FURNITURE REPAIR TECHNICIAN WILL CALL YOU TO SCHEDULE THESE VISITS. If you donot hear from us in about one week, please call us at: [phone]. Your goal prior to seeing the lie detector operator: Goals Addressed This Visit's Progress Self monitoring Keep food log until you are seen by the dieititian. Record everything you eat or drink, include time eaten and any emotional changes that are significant. If you cannot complete this mcc. Bring a log of at least 2 [...] be reached through the bariatric surgery office: [phone]. IF YOU HAVE NOT BEEN TO A BARIATRIC SURGERY INFO SESSION, please register for this as soon as your schedule allows. This is a requirement to pursue bariatric surgery here at [facility]. [phone] to register for a session. If you do this early, your journey will be much easier to navigate For more Bariatric surgery education and information please see: [place] [employer]abolic [employer] Bariatric [employer] Patient [...] was seen via [x] Video [] phone [facility] Patient Name: Zenia Worley Date of : 1990 Age: 31 y.o. Referring provider: No ref. provider found Dear Lia Pearson APRN, No ref. provider found Thank you for referring Zenia Worley to the [facility] [place]. Zenia Worley presented to the [facility] for a consultative visit regarding obesity management. [...] weight HISTORY OF PRESENT ILLNESS: Weight History: [facility] Weight History 12/19/2021 What is the most [...] 12/19/21: 432.75 on 11/[address] Swain (building code administrator) Initial BMI: 72 Goal weight: <200 10% [...] surgical intervention. (Has not started surgical process) [facility] Importance 12/19/2021 How important is it to [...] not change dose of gabapentin. Managed by stone cleaner - had discussed tapering it with her. [...] beat) - heart palpitations/has seen cards at [facility] - has high rate but normal rhythm, [...] started Humalog then - currently 6units if [id number] at meals (infrequent) and Lantus -( currently at 12AM, 13PM) at the same time, Ozemipc 0.5mg Has to stay on SSI to keep CGM. This past year finally got her DM under control (prior to using Ozempic). CGM really helped. Prior Medications: NONE Following with: stone cleaner at [facility] or [facility], next visit Dec Lilian Didrekson, BACK FILLER OPERATOR - Ok to call her. No changes [...] appt, to address heavy bleeding INSOMNIA: See [facility] Sleep: Circadian: []shift leader work []irregular sleep timings [x]Normal day/night schedule [...] not discuss at this visit d/t time WWErik: MARYAM 12/19/2021 How many days during the [...] the following symptoms? Blurry vision, Hair loss [facility] PHQ-2 12/19/2021 Over the LAST 2 WEEKS, [...] TSH 2.98 08/15/2021 No results found for: [id number] No results found for: 25OHVITD No results found for: URICACID ASSESSMENT AND PLAN Zenia Worley is a 31 y.o. female with uncontrolled Metabolically unhealthy obesity who presented to [facility] today for medical evaluation with associated co- [...] to Trulicity. Call endocrinology office and left VM for them to call back to update on meds NEUROPATHIC PAIN CONTROL: patient will continue to work with prescibing provider but for now will trial discontinuing midday dose. ONGOING INTERVENTIONS Referrals: Dietitian, Health Computer Technology Teacher, individual Pyschology, embedded, bariatric For specific behavioral [...] for 4 doses. - Amb Referral to [facility] Psych Evaluation Type 2 diabetes mellitus with hyperglycemia, with long-term current use of insulin - semaglutide (Ozempic) 1 mg/dose (4 mg/3 mL) Pen Injector; Inject 1 mg subcutaneously once a week for 4 doses. - Amb Referral to [facility] Psych Evaluation Orders Placed This Encounter Procedures ??? Vitamin B12 ??? Vitamin D, 25-Hydroxy ??? Folate, serum ??? Iron and TIBC ??? Vitamin B1, whole blood ??? Ferritin ??? CBC (with Diff) ??? Amb Referral to [facility] Psych Evaluation ??? Referral to Bariatric Surgery Program Return in about 6 weeks (around 01/30/2022) for MD oRmo or clinic, [facility], Also see Check Out notes. I spent a total of 64 minutes in [id number] discussion/counseling regarding the diagnosis of obesity, interventions [...] are significant. If you cannot complete this termite control servicer. Bring a log of at least 2 weekdays and one weekend day to review. Care pathway: Pathway: [facility] PATHWAY - ADULT 12/19/2021 Pre- Bariatric Surgery Activate I spoke with Zenia about opportunities to participate in research and to be contacted by our research academic assistant. They indicated that they are: [] INTERESTED [] NOT INTERESTED // [x] NOT ADDRESSED [facility] Initial Responses 12/19/2021 URICA - Readiness Score 10 (Contemplation State) WEL-SF Total Scores 80 PHQ-2 SubScore 0 (Brief screen negative) GAD2 Subscore 0 (Brief screen negative) SHANE 7 Total Scores - PROMIS 10 Physical Scores 19.9 PROMIS 10 Mental Scores 21.2 Total REAP-S Scores 13 TFEQ - Uncontrolled Eating (UE) 77.78 TFEQ-Cognitive Restraint (CR) 100 TFEQ-Emotional Eating 100 Food Insecurity Score Incomplete [facility] Category I Result 1 (Negative) [facility] Category II Result 0 (Negative) [facility] Category III 1 (Positive) [facility] Sleep Apnea Total 2 (High Risk) Schooling [...] Diagnoses Orde r Schedule Amb Referral to [facility] Psych Evaluation Outpatient Referral Routine Class 3 [...] insulin documented in this encounter Care Teams Clinical Quality Analyst Relationship Specialty Start Date End Date Lia Pearson APRN [address] [place] [address] PCP - General Geriatric Medicine 10/15/21 01/26/22 documented as of this encounter
--- OUTSIDE RECORDS SUMMARY | 2024-02-13 18:05 | XMS_ITS | Encounter Summary ---
Author Organization [facility] Address [address] [facility] [place] [address] Care Team Providers Care Doubler Helper Name Role Phone Lia Pearson APRN Primary Care Provider Encounter Details Date Type Department Care Team (Late st Contact Info) Description 02/27/2022 Interpretation Only Radiology [address] [place] [address] Unknown None Social History Tobacco Use Types [...] can, buy fresh vegetables and fruit from [employer]-sent message with resources -Choose whole grain [...] Note: Practice STOP and Urge Surfing. Health Market Research Assistant will send hand-outs. Movement Lifestyle On track( 023 1:14 PM EDT) Riddhi Buchanan RD Note: Continue to walk stairs and walks when can. Will continue using stairs as it's colder. Look into finding weights free online or at [employer] stores. Could use water-filled milk jugs as [...] on filedocumented in this encounter Care Teams Doubler Helper Relationship Specialty Start Date End Date Lia Pearson APRN [address] [place] [address] PCP - General Geriatric Medicine 02/09/22 documented as of this encounter
--- OUTSIDE RECORDS SUMMARY | 2024-02-13 18:05 | XMS_ITS | Encounter Summary ---
Author Organization [facility] Address [facility] [place] [address] Care Team Providers Care Building Operator Name Role Phone Lia Pearson APRN Primary Care Provider [phone] [phone] Encounter Details Date Type Department Care Team (Late st Contact Info) Description 01/09/2022 Orders Only Weight and Wellness at [address] [phone] Jenni Waller MD [facility] [address] [place] [address] Type 2 diabetes mellitus with hyperglycemia, with [...] insulin documented in this encounter Care Teams Building Operator Relationship Specialty Start Date End Date Lia Pearson APRN [address] [place] [address] PCP - General Geriatric Medicine 10/15/21 01/26/22 documented as of this encounter
--- OUTSIDE RECORDS SUMMARY | 2024-02-13 18:05 | XMS_ITS | Encounter Summary ---
[place] [address] Care Team Providers Care Crop Insurance Claims Adjuster Name Role Phone Lia Pearson APRN Primary Care Provider [phone] [phone] Encounter Details Date Type Department Care Team (Late st Contact Info) Description 12/12/2021 External Results Weight and Wellness at [address] [phone] Rebeka Up, RN Social History Tobacco Use [...] Associated Diagnosis Comments HEMOGLOBIN A1C Routine 11/12/2021 [facility] EXTERNAL RESULT PANEL Routine 10/27/2021 [facility] EXTERNAL RESULT PANEL Routine 08/15/2021 documented in this encounter Results * (ABNORMAL) Hemoglobin A1c (11/12/2021) Hemoglobin A1c 6.2(H) Blood 11/12/2021 Historical Provider CHEMISTRY ORDERAB LES * (ABNORMAL) [facility] External Results (10/27/2021) Blood Urea Nitrogen 10 Creatinine 0.7 Sodium 140 Potassium 4.4 Chloride 105 Carbon Dioxide 26 Anion Gap 9 Calcium 8.8 Protein, Total 7.2 Albumin 3.3(L) Aspartate Aminotransferase 14(L) Alanine Aminotransferase 27 Alkaline Phosphatase 88 Bilirubin, Total 0.1(L) Est Glomerular Filtration Rate >60 Glucose 87 Ferritin 73 10/27/2021 Historical Provider POINT OF CARE SARAY T ORDERABLES * (ABNORMAL) [facility] External Results (08/15/2021) Cholesterol, Total 199 Triglyceride 46 HDL Cholesterol 55 LDL Cholesterol 135(H) Blood Urea Nitrogen 9 Creatinine 0.7 Sodium 142 Potassium 4.2 Chloride 104 Carbon Dioxide 26 Anion Gap 12(H) Calcium 8.6 Protein, Total 7.5 Albumin 3.1(L) Aspartate Aminotransferase 16 Alanine Aminotransferase 25 Alkaline Phosphatase 97 Bilirubin, Total 0.2(L) Est Glomerular Filtration Rate >60 Thyroid Stimulating Hormone 2.98 Glucose 56(L) 08/15/2021 Historical Provider POINT OF CARE SARAY T ORDERABLES documented in this encounter Visit Diagnoses Not on filedocumented in this encounter Care Teams Crop Insurance Claims Adjuster Relationship Specialty Start Date End Date Lia Pearson APRN [address] [place] [address] PCP - General Geriatric Medicine 10/15/21 01/26/22 documented as of this encounter
--- OUTSIDE RECORDS SUMMARY | 2024-02-13 18:05 | XMS_ITS | Encounter Summary ---
[facility] [place] [address] Care Team Providers Care Wellness Coach Name Role Phone NasraLia chávez ROAD DESIGN DRAFTSPERSON Primary Care Provider [phone] Encounter Details Date Type Department Care Team (Late st Contact Info) Description 11/11/2021 Telephone Obstetrics [place] [phone] Siena Corea RN Social History Tobacco Use [...] she is seen by her OBGYN at [facility]. On Wednesday, 11/03 she attempted to get [...] on filedocumented in this encounter Care Teams Wellness Coach Relationship Specialty Start Date End Date Lia Pearson APRN [address] [place] [address] PCP - General Geriatric Medicine 10/15/21 01/26/22 documented as of this encounter
--- OUTSIDE RECORDS SUMMARY | 2024-02-13 18:05 | XMS_ITS | Encounter Summary ---
Author Organization [facility] Address [facility] [place] [address] Care Team Providers Care Affirmative Action Officer Name Role Phone Lia Pearson APRN Primary Care Provider [phone] [phone] Encounter Details Date Type Department Care Team (Late st Contact Info) Description 02/18/2022 Orders Only Weight and Wellness at [place] [address] [place] [address] Jenni Waller MD [facility] [address] [place] [address] Vitamin D deficiency Social History Tobacco Use [...] Note: Practice STOP and Urge Surfing. Health Fruit Farmworker will send hand-outs. Movement Lifestyle On track( 023 1:14 PM EDT) Riddhi Buchanan RD Note: Continue to walk stairs and walks when can. Will continue using stairs as it's colder. Look into finding weights free online or at [employer] stores. Could use water-filled milk jugs as weights-a full gallon jug would be 8 lbs. Will look into nearby rec center 04/16/22 NATHALIA documented as of this encounter Visit Diagnoses Diagnosis Vitamin D deficiency Unspecified vitamin D deficiency documented in this encounter Care Teams Affirmative Action Officer Relationship Specialty Start Date End Date Lia Pearson APRN [address] [place] [address] PCP - General Geriatric Medicine 02/09/22 documented as of this encounter
--- OUTSIDE RECORDS SUMMARY | 2024-02-13 18:05 | XMS_ITS | Encounter Summary ---
Author Organization [facility] [place] [address] Care Team Providers Care Custom Bow Maker Name Role Phone Lia Pearson APRN Primary Care Provider [phone]- [phone] Reason for Referral * Consultation (Routine) - Closed Specialty Diagnoses / Procedures Referred By Della kern Referred To Contact Weight and Wellness Diagnoses Morbid obesity [place]ia Pearson [place] [address] [facility] [address] [place] [address] Referral ID Status Reason Start Date Expiration Date V isits Requested Visits Authorized [id number] Closed Consult, Test & Treat PCP Updated and/or Approved 12/03/2021 12/03/2022 1 1 Encounter Details Date Type Department Care Team (Late st Contact Info) Description 12/03/2021 Transcribe Orders eDH Incoming Referrals [phone] Lia Pearson APRN [address] [place], [place] [id number] Morbid obesity Social History Tobacco Use Types [...] obesity documented in this encounter Care Teams Custom Bow Maker Relationship Specialty Start Date End Date Lia Pearson APRN [address] [place] [address] PCP - General Geriatric Medicine 10/15/21 01/26/22 documented as of this encounter
--- OUTSIDE RECORDS SUMMARY | 2024-02-13 18:06 | XMS_ITS | Encounter Summary ---
Author Organization [facility] Address [address] [place] [address] Care Team Providers Care Lead Former Name Role Phone Lisa Yan OPERATIONS ASST Unavailable Lisa Yan OPERATIONS ASST Unavailable Lia Pearson APRN Primary Care Provider [phone] Reason for Visit * Reason Comments Diabetes Encounter Details Date Type Department Care Team (Latest Contact Info) Description 10/23/2022 11:30 EDT Office Visit [facility] Endocrinology [address] [place] [address] Lisa Yan OPERATIONS ASST [address] [facility] [address] [place] [phone] Type 2 diabetes mellitus with hyperglycemia, with long-term current use of insulin ([facility]) (Primary Dx); senior care 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; BMI 60.0-69.9, adult ([facility]); Long-term insulin use ([facility]); Other specified hypothyroidism; Essential hypertension, benign; [...] DM f/up PCP: BERNIE Pearson OTHER PROVIDERS: SUPERVISOR MICROFILM DUPLICATING UNIT [facility] Dr. Haider, cardiology [facility], [facility] Zenia Worley is a 32 y.o. female who presented to the clinic for a follow-up in [facility], with a history of DM since 2004. Hx of HLD, [place] on cpap, PTSD, schizoaffective disorder, anemia, hypothyroid,hypoglycemia comas. Does not currently work. Lives on her own. Is working with [employer] on finding work. Sister lives in [place]. Parents have . 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 Trip planned to [place] for [employer]. Has been down to [facility] with vaginal bleeding. Had surgery to minimize the bleeding, had transfusionswhile there. Has f/up to assess terminal worker solutions. States minimal hypotension symptoms since this, [...] visit. TSH 1.42 (09/2022) Levothyroxine 200 mcg [facility] DM: dad, brother Recent A1C: 5.8 (10/2022) [...] Problems Eye exam current (within one year): [facility], [facility] Last dental exam: overdue CVD,PVD,CAD: HLD, HTN Statin: simvastatin 40 mg, LDL 92 (06/2022) Aspirin: no ACEI/ARB: losartan 25 mg Prior visit with utilities operator: CORNELIO Aguayo Foot care: self Comorbidities: [...] to the clinic for a follow-up in [facility], with a history of DM since 2004. 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 [...] hyperglycemia, with long-term current use of insulin ([facility]) POCT HEMOGLOBIN A1C Routine 10/23/2022 Type 2 diabetes mellitus with hyperglycemia, with long-term current use of insulin ([facility]) documented in this encounter Results * (ABNORMAL) HEMOGLOBIN A1C (08/13/2023 9:58 EDT) Hemoglobin A1c 8.0(H) <5.7 % 08/13/2023 13:12 EDT [facility] Comment: Glycemic Status References: Normal: ??<5.7% Pre-Diabetes: ??5.7% - 6.4% Diagnostic of Diabetes: ??> or = 6.5% (if confirmed) Est Avg Glucose 183 mg/dL 13:12 T [facility] Comment:The eAG represents t he A1c result expressed as average glucose in mg/dL. Blood VENOUS BLOOD / Unknown Venipuncture / Unknown 08/13/2023 9:58 EDT 08/13/2023 10:26 EDT Lisa Yan NP CHEMISTRY & BLOOD GAS ORDERABLES [facility] [address] [place] [address] * (ABNORMAL) COMPREHENSIVE METABOLIC PANEL (CMP) (08/13/2023 9:58 EDT) Sodium 139 136 - 145 mmol/L 08/13/2023 11:11 [facility] Potassium 4.1 3.5 - 5.0 mmol/L 08/13/2023 11:11 [facility] Chloride 107 96 - 110 mmol/L 08/13/2023 11:11 [facility] CO2 Total 29 22 - 32 mmol/L 08/13/2023 11:11 [facility] Glucose 76 70 - 99 mg/dl 08/13/2023 11:11 [facility] BUN 10 10 - 26 mg/dL 08/13/2023 11:11 [facility] Creatinine 0.84 0.52 - 1.04 mg/dL 08/13/2023 11:11 [facility] eGFR 95 >60 mL/min/1.7 3m2 08/13/2023 11:11 [facility] Total Protein 8.0 6.3 - 8.2 g/dL 08/13/2023 11:11 [facility] Albumin 4.3 3.4 - 4.9 g/dL 08/13/2023 11:11 [facility] Alkaline Phosphatase 70 38 - 126 U/L 08/13/2023 11:11 [facility] AST 21 15 - 46 U/L 08/13/2023 11:11 [facility] ALT 27 <35 U/L 08/13/2023 11:11 [facility] Bilirubin, Total 0.6 <1.4 mg/dL 08/13/19 11:11 [facility] Calcium 9.9 8.5 - 10.5 mg/dL 08/13/2023 11:11 [facility] Albumin/Globulin Ratio 1.2 1.0 - 2.5 08/13/2023 11:11 [facility] Anion Gap 3(L) 5 - 14 mmol/L 08/13/2023 11:11 [facility] Blood VENOUS BLOOD / Unknown Venipuncture / Unknown 08/13/2023 9:58 EDT 08/13/2023 10:24 EDT Lisa Yan NP CHEMISTRY & BLOOD GAS ORDERABLES Performing Organization Address [facility] Co de Phone Number [facility] [address] [place] [address] * (ABNORMAL) LIPID PROFILE (INCLUDES CHOLESTEROL, TRIGLYCERIDES, HDL, LDL) (08/13/2023 9:58 EDT) Cholesterol 175 <200 mg/dL 08/13/2023 11:11 EDT [facility] Comment:Note that therapeuti c goals will differ between patients based on cardiac risk factors and current medical therapy. HDL 43(L) >=50 mg/dl 08/13/2023 11:11 EDT [facility] Comment:Note that therapeuti c goals will differ between patients based on cardiac risk factors and current medical therapy. LDL, Calculated 114 <160 mg/dL 11:11 [facility] Comment:Note that therapeuti c goals will differ between patients based on cardiac risk factors and current medical therapy. Triglyceride 90 <=150 mg/dL 08/13/2023 11:11 EDT [facility] Comment:Note that therapeuti c goals will differ between patients based on cardiac risk factors and current medical therapy. Chol/HDL Ratio 4.1 See Note 08/13/2023 11:11 T [facility] Comment: NOTE: Desirable Ratio = <4.1 Patient At Risk Ratio = >5.0(Males) ?>6.0(Females) Non HDL Cholesterol 132 <160 mg/dL 08/13/2023 11:11 EDT [facility] Comment:Note that therapeuti c goals will differ between patients based on cardiac risk factors and current medical therapy. Blood VENOUS BLOOD / Unknown Venipuncture / Unknown 08/13/2023 9:58 EDT 08/13/2023 10:24 EDT Lisa Yan NP CHEMISTRY & BLOOD GAS ORDERABLES Performing Organization Address [facility] Co de Phone Number [facility] [address] [place] [address] * (ABNORMAL) POCT GLUCOSE, MANUAL ENTRY (10/23/2022) Glucose, POC 112(A) 70 - 100 mg/dL [facility] POC COMMENT MANUAL (GLUCOSE) [facility] POINT OF furnace room supervisor ID [facility] Blood CAPILLARY BLOOD / Unknown 10/23/2022 Lisa Yan NP POINT OF CARE SARAY T ORDERABLES Performing Organization Address [facility] Co de Phone Number [facility] * (ABNORMAL) POCT HEMOGLOBIN A1C (10/23/2022) Hemoglobin A1c, POC 5.8(A) 5.7 % [facility] Blood CAPILLARY BLOOD / Unknown 10/23/2022 Lisa Yan NP POINT OF CARE SARAY T ORDERABLES Performing Organization Address [facility] Co de Phone Number [facility] documented in this encounter Visit Diagnoses Diagnosis Type 2 diabetes mellitus with hyperglycemia, with long-term current use of insulin ([facility])- 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 BMI 60.0-69.9, adult ([facility]) Body Mass Index 60.0-69.9, adult Long-term insulin use ([facility]) Encounter for long-term (current) use [...] Sig Dispensed Refills Start Date End Date ANTWAN DELMIESHA PLUS LANCET 33 gauge [facility] 09/06/2022 ARIPiprazole (ABILIFY) 20 mg tablet TAKE [...] BEGIN LOWER DOSES OF VITMIN DAILY (USUSALLY [id number] UNIT 07/17/2022 08/13/2023 chlorproMAZINE (THORAZINE) 200 mg tablet TAKE 1 TABLET BY MOUTH AT BEDTIME FOR SCHIZOAFFECTIVE DISORDER 10/14/2022 023 added in this encounter Care Teams Lead Former Relationship Specialty Start Date End Date Lia Pearson APRN [address] [place] [address] PCP - General Family Medicine - [facility] Medicine 09/26/21 Lisa Yan NP [address] [place] [phone] Nurse Practitioner Endocrinology, Diabetes and Metabolism 03/19/21 Lisa Yan NP [address] [place] [phone] Nurse Practitioner Endocrinology, Diabetes and Metabolism 06/06/21 documented as of this encounter
--- OUTSIDE RECORDS SUMMARY | 2024-02-13 18:06 | XMS_ITS | Encounter Summary ---
Author Organization [facility] Address [address] [place] [address] Care Team Providers Care Able Bodied Tankerman Name Role Phone Lisa Yan INSPECTOR METAL CAN Unavailable [phone] Lisa Yan INSPECTOR METAL CAN Unavailable [phone] Lia Pearson APRN Primary Care Provider [phone] Reason for Visit * Reason Onset Date Comments Medications Refill 02/26/2023 Encounter Details Date Type Department Care Team (Late st Contact Info) Description 02/26/2023 Refill [facility] Endocrinology [address] [place] [address] [phone] Shari Hsu RN Medications Refill Social History [...] documented as of this encounter Care Teams Able Bodied Tankerman Relationship Specialty Start Date End Date Lia Pearson APRN [address] [place] [phone] PCP - General [facility] Medicine 09/26/21 Lisa aYn NP [address] [place] [address] [phone] Nurse Practitioner Endocrinology, Diabetes and Metabolism 03/19/21 Lisa Yan NP [address] [place] [address] [phone] Nurse Practitioner Endocrinology, Diabetes and Metabolism 06/06/21 documented as of this encounter
--- OUTSIDE RECORDS SUMMARY | 2024-02-13 18:06 | XMS_ITS | Encounter Summary ---
Author Organization [facility] Address [address] [place] [address] Care Team Providers Care Senior Product Analyst Name Role Phone Lisa Yan TEST SPECIALIST Unavailable Lisa Yan TEST SPECIALIST Unavailable [phone] Lia Pearson APRN Primary Care Provider [phone] Reason for Visit * Reason Comments Medications Refill Encounter Details Date Type Department Care Team (Late st Contact Info) Description 10/20/2022 Refill [facility] Endocrinology [address] [place] [address] Lisa Yan, TEST SPECIALIST 130 [facility] [address] [place] [phone] Medications Refill Social History Tobacco Use Types [...] as of this encounter Care Teams Senior Product Analyst Relationship Specialty Start Date End Date Lia Pearson APRN [address] [place] [address] PCP - General Family [facility] Medicine 09/26/21 Lisa Yan NP [address] [place] [phone] Nurse Practitioner Endocrinology, Diabetes and Metabolism 03/19/21 Lisa Yan NP [address] [place] [address] [phone] Nurse Practitioner Endocrinology, Diabetes and Metabolism 06/06/21 documented as of this encounter
--- OUTSIDE RECORDS SUMMARY | 2024-02-13 18:06 | XMS_ITS | Encounter Summary ---
Author Organization [facility] Address [address] [place] [address] Care Team Providers Care Director Of Education Name Role Phone Lisa Yan SHAVING MACHINE OPERATOR Unavailable [phone] Lisa Yan SHAVING MACHINE OPERATOR Unavailable Lia Pearson APRN Primary Care Provider [phone] Reason for Visit * Reason Onset Date Comments Medications Refill 07/06/2023 Encounter Details Date Type Department Care Team (Late st Contact Info) Description 07/06/2023 Refill [facility] Endocrinology [address] [place] [address] [phone] Shari Hsu RN Medications Refill Social History [...] Encounter - Shari Hsu RN - 07/06/2023 1500 EST Request from [facility] to refill trulicity- pt messaged as to what dose she's on documented in this encounter Plan of Treatment Not on file documented as of this encounter Visit Diagnoses Not on filedocumented in this encounter Care Teams Director Of Education Relationship Specialty Start Date End Date iLa Pearson APRN [address] [place] [address] PCP - [facility] Medicine 09/26/21 Lisa Yan SHAVING MACHINE OPERATOR [address] [place] [address] [phone] Nurse Practitioner Endocrinology, Diabetes and Metabolism 03/19/21 Lisa Yan SHAVING MACHINE OPERATOR [address] [place] [address] [phone] Nurse Practitioner Endocrinology, Diabetes and Metabolism 06/06/21 documented as of this encounter
--- OUTSIDE RECORDS SUMMARY | 2024-02-13 18:06 | XMS_ITS | Encounter Summary ---
Author Organization [facility] Address [address] [place] [address] Care Team Providers Care Cuff Presser Name Role Phone Lisa Yan COMMISSARY HELPER Unavailable Lisa Yan COMMISSARY HELPER Unavailable Lia Pearson APRN Primary Care Provider [phone] Reason for Visit * Reason Onset Date Comments Medications Refill 09/28/2023 Encounter Details Date Type Department Care Team (Late st Contact Info) Description 09/28/2023 Refill [facility] Endocrinology [address] [place] [address] [phone] Tasha Tavares RN Medications Refill Social History [...] documented as of this encounter Care Teams Cuff Presser Relationship Specialty Start Date End Date Lia Pearson APRN [address] [place] [phone] PCP - General Family Medicine - [facility] Medicine 09/26/21 Lisa Yan NP [address] [place] [address] [phone] Nurse Practitioner Endocrinology, Diabetes and Metabolism 03/19/21 Lisa Yan NP [address] [place] [phone] Nurse Practitioner Endocrinology, Diabetes and Metabolism 06/06/21 documented as of this encounter
--- OUTSIDE RECORDS SUMMARY | 2024-02-13 18:06 | XMS_ITS | Encounter Summary ---
Author Organization [facility] Address [address] [place] [address] Care Team Providers Care Panel Fitter Name Role Phone Lisa Yan TIE LOADER Unavailable Lisa Yan TIE LOADER Unavailable Lia Pearson APRN Primary Care Provider [phone] Reason for Visit * Reason Comments Diabetes Encounter Details Date Type Department Care Team (Latest Contact Info) Description 06/18/2022 15:15 EST Office Visit [facility] [place]inology [address] [place] [address] Lisa Yan TIE LOADER [address] [facility] [address] [place] [phone] Type 2 diabetes mellitus with hyperglycemia, with long-term current use of insulin ([facility]) (Primary Dx); detention 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; Long-term [...] 06/17/2022 * Lisa Yan NP - 06/18/2022 6542 EST Reason for Visit: DM f/up PCP: BERNIE Pearson OTHER PROVIDERS: AT RISK PARAPROFESSIONAL Dr. Haider, cardiology Zeniajurgen Worley is a 32 y.o. female who presented to the clinic for a follow-up in [facility], with a history of DM for ?15 yrs. Hx of HLD, [place] on cpap, PTSD, schizoaffective disorder, anemia, hypothyroid, hypoglycemia comas. Does not currently work. Lives on her own. Is working with [employer] on finding work. Sister lives in [place]. Parents have . 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 Working with weight and wellness at [facility], feels this is going well. Is coming [...] this and her skin. Notes working with [employer] in her area. Helped get her a gym membership in her area. Now utilizing this twice weekly. TSH 2.98 (08/2021) Levothyroxine 200 mcg [facility] DM: dad, brother Recent A1C: 7.6 (05/2022) [...] Problems Eye exam current (within one year[facility] Last dental exam: overdue CVD,PVD,CAD: HLD, HTN Statin: simvastatin 40 mg, LDL 89 (01/2022) Aspirin: no ACEI/ARB: losartan 25 mg Prior visit with bedspread seamer: CORNELIO Aguayo Foot care: self Comorbidities: Retinopathy: [...] to the clinic for a follow-up in [facility], with a history of DM for ?15 yrs. 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 [...] Name Priority Date/Time Associated Diagnosis Comments URINE XDFEAYI-OF-YEJFSBIY NE RATIO (ACR) Routine 06/18/2022 16:01 EST Type 2 diabetes mellitus with hyperglycemia, with long-term current use of insulin ([facility]) POCT GLUCOSE, MANUAL ENTRY Routine 06/18/2022 Type 2 diabetes mellitus with hyperglycemia, with long-term current use of insulin ([facility]) documented in this encounter Results * (ABNORMAL) URINE KAJAIGJ-VE-JEVMKLEAXH RATIO (ACR) (06/18/2022 16:01 EST) Albumin, Urine 103.6 See Note mg/dL 2022 18:48 [facility] Comment: NOTE: Reference range not established Creatinine, Urine 159.3 See Note mg/dL 06/18/2022 18:48 [facility] Comment: NOTE: Reference range not established Lab Urine Albumin to Creatinine Ratio 650(H) <30 ??g/mg Creatinine 06/18/2022 18:48 [facility] Comment: Urine Albumin/Creatinine Ratio: Normal: <30 ug/mg Creatinine Moderately increased albuminuria: 30-300 ug/mg Creatinine Severley increased albuminuria: >300 ug/mg Creatinine Urine URINE SPECIMEN COLLECTION, CLEAN CATCH / Unknown Urine Collect / Unknown 06/18/2022 16:01 EST 06/18/2022 16:01 EST Lisa Yan NP CHEMISTRY & BLOOD GAS ORDERABLES [facility] [address] [place] [address] * POCT GLUCOSE, MANUAL ENTRY (06/18/2022) Glucose, POC 72 70 - 100 mg/dL [facility] POINT OF CARE [facility] LAB POC COMMENT MANUAL (GLUCOSE) [facility] POINT OF master control supervisor ID [facility] POIN T OF CARE Blood CAPILLARY BLOOD / Unknown 06/18/2022 Lisa Yan NP POINT OF CARE SARAY T ORDERABLES [facility] POINT OF CARE documented in this encounter Visit Diagnoses Diagnosis Type 2 diabetes mellitus with hyperglycemia, with long-term current use of insulin ([facility])- Primary detention 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 Long-term insulin use ([facility]) Encounter for long-term (current) use of insulin [...] 06/16/2022 added in this encounter Care Teams Panel Fitter Relationship Specialty Start Date End Date Lia Pearson APRN [address] [place] [address] PCP - General Family Medicine - [facility] Medicine 09/26/21 Lisa Yan NP [address] [place] [phone] Nurse Practitioner Endocrinology, Diabetes and Metabolism 03/19/21 Lisa Yan NP [address] [place] [phone] Nurse Practitioner Endocrinology, Diabetes and Metabolism 06/06/21 documented as of this encounter
--- OUTSIDE RECORDS SUMMARY | 2024-02-13 18:06 | XMS_ITS | Encounter Summary ---
Author Organization [facility] Address [address] [place] [address] Care Team Providers Care Leather Stripping Machine Operator Name Role Phone Lisa Yan STACK YIELD ENGINEER Unavailable Lisa Yan STACK YIELD ENGINEER Unavailable Lia Pearson APRN Primary Care Provider [phone] Reason for Visit * Reason Comments Medications Refill Encounter Details Date Type Department Care Team (Late st Contact Info) Description 09/02/2022 Refill [facility] [place]ology [address] [place] [address] Lisa Yan, STACK YIELD ENGINEER [address] [facility] [address] [place] [phone] Medications Refill Social History Tobacco Use Types [...] documented as of this encounter Care Teams Leather Stripping Machine Operator Relationship Specialty Start Date End Date Lia Pearson APRN [address] [place] [address] PCP - [facility] Medicine 09/26/21 Lisa Yan NP [address] [place] [phone] Nurse Practitioner Endocrinology, Diabetes and Metabolism 03/19/21 Lisa Yan NP [address] [place] [phone] Nurse Practitioner Endocrinology, Diabetes and Metabolism 06/06/21 documented as of this encounter
--- OUTSIDE RECORDS SUMMARY | 2024-02-13 18:06 | XMS_ITS | Encounter Summary ---
Author Organization [facility] Address [address] [place] [address] Care Team Providers Care Supervisor Maintenance And Custodians Name Role Phone Lisa Yan FORCE DISPATCHER Unavailable [phone] Lisa Yan FORCE DISPATCHER Unavailable [phone] Lia Pearson APRN Primary Care Provider [phone] Reason for Visit * Reason Onset Date Comments Blood Sugar Problem 08/17/2023 Encounter Details Date Type Department Care Team (Late st Contact Info) Description 08/17/2023 Telephone [facility] Endocrinology [address] [place], [place] [phone] Shari Hsu RN Blood Sugar Problem Social [...] Notes * Telephone Encounter - Lisa Yan FORCE DISPATCHER - 08/17/2023 5623 EDT Sent mychart message. If going to work/higher activity after humalog dose, give half of this dose prior to. * Telephone Encounter - Shari Hsu, RN - 08/17/2023 2058 EDT Zenia called - having issues with [...] do a lot of exertion ? USES [employer] documented in this encounter Plan of Treatment Not on file documented as of this encounter Visit Diagnoses Not on filedocumented in this encounter Care Teams Supervisor Maintenance And Custodians Relationship Specialty Start Date End Date Lia Pearson APRN [address] [place] [phone] PCP - General Family Medicine - [facility] Medicine 09/26/21 Lisa Yan NP [address] [place] [address] [phone] Nurse Practitioner Endocrinology, Diabetes and Metabolism 03/19/21 Lisa Yan NP [address] [place] [address] [phone] Nurse Practitioner Endocrinology, Diabetes and Metabolism 06/06/21 documented as of this encounter
--- OUTSIDE RECORDS SUMMARY | 2024-02-13 18:06 | XMS_ITS | Encounter Summary ---
Author Organization [facility] Address [address] [place] [address] Care Team Providers Care Bushler Name Role Phone Lisa Yan ARTIFICIAL CANDY MAKER Unavailable Lisa Yan ARTIFICIAL CANDY MAKER Unavailable Lia Pearson APRN Primary Care Provider [phone] Reason for Visit * Reason Comments Medications Refill Encounter Details Date Type Department Care Team (Late st Contact Info) Description 09/13/2022 Refill [facility] Endocrinology [address] [place] [address] Lisa Yan, ARTIFICIAL CANDY MAKER 130 [facility] [address] [place] [phone] Medications Refill Social History Tobacco Use Types [...] Miscellaneous Notes * Telephone Encounter - Dina Badlwin RN - 09/14/2022 0842 EDT Prescription faxed [...] documented as of this encounter Care Teams Bushler Relationship Specialty Start Date End Date Lia Pearson APRN [address] [place] [address] PCP - General Family Medicine - [facility] Medicine 09/26/21 Lisa Yan NP [address] [place] [address] [phone] Nurse Practitioner Endocrinology, Diabetes and Metabolism 03/19/21 Lisa Yan NP [address] [place] [address] [phone] Nurse Practitioner Endocrinology, Diabetes and Metabolism 06/06/21 documented as of this encounter
--- OUTSIDE RECORDS SUMMARY | 2024-02-13 18:06 | XMS_ITS | Encounter Summary ---
Author Organization [facility] Address [address] [place] [address] Care Team Providers Care Production Maintenance Mechanic Name Role Phone Lisa Yan PRODUCT SAFETY LEAD Unavailable [phone] Lisa Yan PRODUCT SAFETY LEAD Unavailable Lia Pearson APRN Primary Care Provider [phone] Reason for Visit * Reason Onset Date Comments Medications Refill 06/30/2023 Encounter Details Date Type Department Care Team (Late st Contact Info) Description 06/30/2023 Refill [facility] Endocrinology [address] [place] [address] [phone] Shari Hsu RN Medications Refill Social History [...] as of this encounter Care Teams Production Maintenance Mechanic Relationship Specialty Start Date End Date Lia Pearson APRN [address] [place] [address] PCP - General Family Medicine - [facility] Medicine 09/26/21 Lisa Yna NP [address] [place] [address] [phone] Nurse Practitioner Endocrinology, Diabetes and Metabolism 03/19/21 Lisa Yan NP [address] [place] [phone] Nurse Practitioner Endocrinology, Diabetes and Metabolism 06/06/21 documented as of this encounter
--- OUTSIDE RECORDS SUMMARY | 2024-02-13 18:06 | XMS_ITS | Encounter Summary ---
Author Organization [facility] Address [address] [place] [address] Care Team Providers Care Pantry Steward/Stewardess Name Role Phone Lisa Yan ENRICHMENT DIRECTOR Unavailable [phone] Lisa Yan ENRICHMENT DIRECTOR Unavailable [phone] Lia Pearson APRN Primary Care Provider [phone] Reason for Visit * Reason Onset Date Comments Medications Refill 12/17/2022 Encounter Details Date Type Department Care Team (Late st Contact Info) Description 12/17/2022 Refill [facility] Endocrinology [address] [place] [address] [phone] Sheryl More RN Medications Refill Social History [...] documented as of this encounter Care Teams Pantry Steward/Stewardess Relationship Specialty Start Date End Date Lia Pearson APRN [address] [place] [address] PCP - General Family Medicine - [facility] Medicine 09/26/21 Lisa Yan NP [address] [place] [address] [phone] Nurse Practitioner Endocrinology, Diabetes and Metabolism 03/19/21 Lisa Yan NP [address] [place] [address] [phone] Nurse Practitioner Endocrinology, Diabetes and Metabolism 06/06/21 documented as of this encounter
--- OUTSIDE RECORDS SUMMARY | 2024-02-13 18:06 | XMS_ITS | Encounter Summary ---
Author Organization [facility] Address [address] [place] [address] Care Team Providers Care Thermostatic Controls Supervisor Name Role Phone Lisa Yan SUPERVISOR STONE Unavailable [phone] Lisa Yan SUPERVISOR STONE Unavailable [phone] Lia Pearson APRN Primary Care Provider [phone] Encounter Details Date Type Department Care Team (Late st Contact Info) Description 01/06/2023 Lab Requisition [facility] Pathology & Laboratory Medicine - [facility] [address] [place], [place] [id number] Outr Resulting Lab, Provider Social History Tobacco [...] CORTISOL, STIMULATION 60 MINUTES (01/05/2023 19:53 EDT) Cortisol Stimulation, 60 min. 37 See Note ug/dL 01/06/2023 19:13 EDT [facility] Comment: NOTE: Expected Ranges for [...] Resulting Lab CHEMISTRY & BLOOD GAS ORDERABLES [facility] [address] [place] [address] documented in this encounter Visit Diagnoses Not on filedocumented in this encounter Care Teams Thermostatic Controls Supervisor Relationship Specialty Start Date End Date Lia Pearson APRN [address] [place] [address] PCP - General Family Medicine - [facility] Medicine 09/26/21 Lisa Yan NP [address] [place] [address] 3 [place] [phone] Nurse Practitioner Endocrinology, Diabetes and Metabolism 03/19/21 Lisa Yan NP [address] [place] [address] 3 [place] [phone] Nurse Practitioner Endocrinology, Diabetes and Metabolism 06/06/21 documented as of this encounter
--- OUTSIDE RECORDS SUMMARY | 2024-02-13 18:06 | XMS_ITS | Encounter Summary ---
Author Organization [facility] Address [address] [place] [address] Care Team Providers Care Intelligence Research Specialist Name Role Phone Lisa Yan COURIER Unavailable [phone] Lisa Yan COURIER Unavailable Lia Pearson APRN Primary Care Provider [phone] Encounter Details Date Type Department Care Team (Late st Contact Info) Description 01/06/2023 Lab Requisition [facility] Pathology & Laboratory Medicine - [facility] [address] [place], [place] [phone] Outr Resulting Lab, Provider Social History Tobacco [...] CORTISOL, STIMULATION 30 MINUTE (01/05/2023 19:13 EDT) Cortisol Stimulation, 30 min. 32 See Note ug/dL 01/06/2023 19:[address] [facility] Comment: NOTE: Expected Ranges for [...] Resulting Lab CHEMISTRY & BLOOD GAS ORDERABLES [facility] [address] [place] [address] documented in this encounter Visit Diagnoses Not on filedocumented in this encounter Care Teams Intelligence Research Specialist Relationship Specialty Start Date End Date Lia Pearson APRN [address] [place] [address] PCP - General Family Medicine - [facility] Medicine 09/26/21 Lisa Yan NP [address] [place] [address] 3 [place] [phone] Nurse Practitioner Endocrinology, Diabetes and Metabolism 03/19/21 Lisa Yan NP [address] [place] [address] 3 [place] [phone] Nurse Practitioner Endocrinology, Diabetes and Metabolism 06/06/21 documented as of this encounter
--- OUTSIDE RECORDS SUMMARY | 2024-02-13 18:06 | XMS_ITS | Encounter Summary ---
Author Organization [facility] Address [address] [place] [address] Care Team Providers Care Nuclear Reactor Operator Name Role Phone Lisa Yan PRIVATE INQUIRY AGENT Unavailable [phone] Lisa Yan PRIVATE INQUIRY AGENT Unavailable Lia Pearson APRN Primary Care Provider [phone] Reason for Visit * Reason Onset Date Comments Medications Refill 01/01/2022 Encounter Details Date Type Department Care Team (Late st Contact Info) Description 01/01/2022 Refill [facility] Endocrinology [address] [place] [address] [phone] Shari Hsu RN Medications Refill Social History [...] documented as of this encounter Care Teams Nuclear Reactor Operator Relationship Specialty Start Date End Date Lia Pearson APRN [address] [place] [address] PCP - General Family Medicine - [facility] Medicine 09/26/21 Lisa Yan NP [address] [place] [address] [phone] Nurse Practitioner Endocrinology, Diabetes and Metabolism 03/19/21 Lisa Yan NP [address] [place] [address] [phone] Nurse Practitioner Endocrinology, Diabetes and Metabolism 06/06/21 documented as of this encounter
--- OUTSIDE RECORDS SUMMARY | 2024-02-13 18:06 | XMS_ITS | Encounter Summary ---
Author Organization [facility] Address [address] [place] [address] Care Team Providers Care Staff Development Coordinator Rn Name Role Phone Lisa Yan ROOF SERVICE TECHNICIAN Unavailable [phone] Lisa Yan ROOF SERVICE TECHNICIAN Unavailable [phone] Lia Pearson APRN Primary Care Provider [phone] Reason for Visit * Reason Onset Date Comments Medication Management 03/29/2023 Refill of levothyroxine 200 mcg requested Encounter Details Date Type Department Care Team (Late st Contact Info) Description 03/29/2023 Telephone [facility] - [facility] Endocrinology [address] [place] [address] Lilibeth Arguello, flap curer Management (Refill of levothyroxine 200 mcg requested [...] Miscellaneous Notes * Telephone Encounter - Lilibeth Arguello, RN - 03/29/2023 6856 EST Refilled documented in this encounter Plan of Treatment Not on file documented as of this encounter Visit Diagnoses Not on filedocumented in this encounter Discontinued Medications Medication Sig Discontinue Reason Start Date End Da te levothyroxine (SYNTHROID) 200 mcg tablet TAKE ONE TABLET BY MOUTH EVERY DAY Reorder 09/30/2022 03/29/2023 documented as of this encounter Care Teams Staff Development Coordinator Rn Relationship Specialty Start Date End Date Lia Pearson APRN [address] [place] [address] PCP - General Family Medicine - [facility] Medicine 09/26/21 Lisa Yan NP [address] [place] [address] [phone] Nurse Practitioner Endocrinology, Diabetes and Metabolism 03/19/21 Lisa Yan NP [address] [place] [address] [phone] Nurse Practitioner Endocrinology, Diabetes and Metabolism 06/06/21 documented as of this encounter
--- OUTSIDE RECORDS SUMMARY | 2024-02-13 18:06 | XMS_ITS | Encounter Summary ---
Author Organization [facility] Address [address] [place] [address] Care Team Providers Care Air Bag Buffer Name Role Phone Lisa Yan SUPERINTENDENT OPERATING Unavailable [phone] Lisa Yan SUPERINTENDENT OPERATING Unavailable Lia Pearson APRN Primary Care Provider [phone] Reason for Visit * Reason Onset Date Comments Prior Auth, Medication 03/30/2023 Encounter Details Date Type Department Care Team (Late st Contact Info) Description 03/30/2023 Telephone [facility] - [facility] Endocrinology [address] [place] [address] [phone] Shari Hsu RN Prior Auth, Medication Social [...] on filedocumented in this encounter Care Teams Air Bag Buffer Relationship Specialty Start Date End Date Lia Pearson APRN [address] [place] [address] PCP - General [facility] 09/26/21 Lisa Yan SUPERINTENDENT OPERATING [address] [place] [phone] Nurse Practitioner Endocrinology, Diabetes and Metabolism 03/19/21 Lisa Yan NP [address] [place] [address] [phone] Nurse Practitioner Endocrinology, Diabetes and Metabolism 06/06/21 documented as of this encounter
--- OUTSIDE RECORDS SUMMARY | 2024-02-13 18:06 | XMS_ITS | Encounter Summary ---
Author Organization [facility] Address [address] [place] [address] Care Team Providers Care Snout Puller Name Role Phone Lisa Yan RETAIL RESET MERCHANDISER Unavailable Lisa Yan RETAIL RESET MERCHANDISER Unavailable Lia Pearson APRN Primary Care Provider [phone] Reason for Visit * Reason Comments Medications Refill Encounter Details Date Type Department Care Team (Late st Contact Info) Description 06/24/2022 Refill [facility] - [facility] Endocrinology [address] [place] [address] Lisa Yan, RETAIL RESET MERCHANDISER 130 [facility] [address] [place] [phone] Medications Refill Social History Tobacco Use Types [...] documented as of this encounter Care Teams Snout Puller Relationship Specialty Start Date End Date Lia Pearson APRN [address] [place] [address] PCP - General [facility] Medicine 09/26/21 Lisa Yan RETAIL RESET MERCHANDISER [address] [phone] Nurse Practitioner Endocrinology, Diabetes and Metabolism 03/19/21 Lisa Yan NP [address] [phone] Nurse Practitioner Endocrinology, Diabetes and Metabolism 06/06/21 documented as of this encounter
--- OUTSIDE RECORDS SUMMARY | 2024-02-13 18:06 | XMS_ITS | Encounter Summary ---
Author Organization [facility] Address [address] [place] [address] Care Team Providers Care Ceiling Cleaner Name Role Phone Lisa Yan SUPERVISOR CLOTH WINDING Unavailable [phone] Lisa Yan SUPERVISOR CLOTH WINDING Unavailable [phone] Lia Pearson APRN Primary Care Provider [phone] Reason for Visit * Reason Onset Date Comments Blood Glucose Review 07/02/2022 Encounter Details Date Type Department Care Team (Late st Contact Info) Description 07/02/2022 Telephone [facility] - [facility] Endocrinology [address] [place] [address] Shari Hsu RN Blood Glucose Review [...] Encounter - Lisa Yan NP - 07/03/2022 1057 EST CGM INTERPRETATION Type of CGM:??personal whitley [...] in afternoon/before bed Other (exercise/activity): PLAN: Sent Chi[employer] message More lows ?tolerating jardiance Lower lantus [...] documented as of this encounter Care Teams Ceiling Cleaner Relationship Specialty Start Date End Date Lia Pearson APRN [address] [place] [address] PCP - General [facility] Medicine 09/26/21 Lisa Yan NP [address] [place] [phone] Nurse Practitioner Endocrinology, Diabetes and Metabolism 03/19/21 Lisa Yan NP [address] [place] [phone] Nurse Practitioner Endocrinology, Diabetes and Metabolism 06/06/21 documented as of this encounter
--- OUTSIDE RECORDS SUMMARY | 2024-02-13 18:06 | XMS_ITS | Encounter Summary ---
Author Organization [facility] Address [address] [place] [address] Care Team Providers Care Research Assistant Name Role Phone Lisa Yan PROFESSOR OF BIBLICAL STUDIES Unavailable [phone] Lisa Yan PROFESSOR OF BIBLICAL STUDIES Unavailable [phone] Lia Pearson APRN Primary Care Provider [phone] Reason for Visit * Reason Onset Date Comments Follow-up 01/09/2022 Encounter Details Date Type Department Care Team (Late st Contact Info) Description 01/09/2022 Telephone [facility] Endocrinology [address] [place] [address] [phone] Shari Hsu RN Follow-up Social History Tobacco [...] Notes * Telephone Encounter - Lisa Yan PROFESSOR OF BIBLICAL STUDIES - 01/14/2022 1209 EDT Left VM to call back and review care. * Telephone Encounter - Shari Hsu RN - 01/09/[address] Maria from [facility] weight loss clinic called to update you- she increased her ozempic to 1 mg weekly and decreased her long acting insulin as she was having overnight lows- please call to discuss [phone] documented in this encounter Plan of Treatment Not on file documented as of this encounter Visit Diagnoses Not on filedocumented in this encounter Additional Health Concerns Infection Onset Date Last Indicated Resolved Time COVID-19 12/25/2021 12/25/2021 01/14/2022 22:1 5 EDT documented as of this encounter Care Teams Research Assistant Relationship Specialty Start Date End Date Lia Pearson APRN [address] [place] [address] PCP - General Family Medicine - [facility] Medicine 09/26/21 Lisa Yan NP [address] [place] [address] [phone] Nurse Practitioner Endocrinology, Diabetes and Metabolism 03/19/21 Lisa Yan NP [address] [place] [address] [phone] Nurse Practitioner Endocrinology, Diabetes and Metabolism 06/06/21 documented as of this encounter
--- OUTSIDE RECORDS SUMMARY | 2024-02-13 18:06 | XMS_ITS | Encounter Summary ---
Author Organization [facility] Address [address] [place] [address] Care Team Providers Care Classroom Aide Name Role Phone Lisa Yan CASTING WHEEL OPERATOR HELPER Unavailable Lisa Yan CASTING WHEEL OPERATOR HELPER Unavailable [phone] Lia Pearson APRN Primary Care Provider [phone] Reason for Visit * Reason Onset Date Comments Medication Management 09/07/2023 Encounter Details Date Type Department Care Team (Late st Contact Info) Description 09/07/2023 Telephone [facility] - [facility] Endocrinology [address] [place] [address] Lilibeth Arguello, career development manager Management Social History Tobacco Use Types Packs/Day [...] Sending to Batsheva to send refill to [facility]. * Telephone Encounter - Lilibeth Arguello RN - 09/07/2023 1059 EDT Jaqueline from [facility] called asking for Lantus script as they do not have one on file and patient called for a refill. Last office note lists patient is not taking Lantus. Nurse will send patient a [employer] message asking if she has started taking again. documented in this encounter Plan of Treatment Not on file documented as of this encounter Visit Diagnoses Not on filedocumented in this encounter Care Teams Classroom Aide Relationship Specialty Start Date End Date Lia Pearson APRN [address] [place] [address] PCP - General Family Medicine - [facility] Medicine 09/26/21 Lisa Yan NP [address] [place] [address] [phone] Nurse Practitioner Endocrinology, Diabetes and Metabolism 03/19/21 Lisa Yan NP [address] [place] [phone] Nurse Practitioner Endocrinology, Diabetes and Metabolism 06/06/21 documented as of this encounter
--- OUTSIDE RECORDS SUMMARY | 2024-02-13 18:06 | XMS_ITS | Encounter Summary ---
Author Organization [facility] Address [address] [place] [address] Care Team Providers Care Hvac Design Engineer Name Role Phone Lisa Yan CONTACT LENS CURVE GRINDER Unavailable Lisa Yan CONTACT LENS CURVE GRINDER Unavailable Lia Pearson APRN Primary Care Provider [phone] Reason for Visit * Reason Comments Medications Refill Encounter Details Date Type Department Care Team (Late st Contact Info) Description 09/28/2022 Refill [facility] Endocrinology [address] [place] [address] Vivienne Cohn MD 130 [facility] [address] [place] [phone] Medications Refill Social History Tobacco [...] documented as of this encounter Care Teams Hvac Design Engineer Relationship Specialty Start Date End Date Lia Pearson APRN [address] [place] [address] PCP - [facility] 09/26/21 Lisa Yan CONTACT LENS CURVE GRINDER [address] [place] [address] [phone] Nurse Practitioner Endocrinology, Diabetes and Metabolism 03/19/21 Lisa Yan NP [address] [place] [phone] Nurse Practitioner Endocrinology, Diabetes and Metabolism 06/06/21 documented as of this encounter
--- OUTSIDE RECORDS SUMMARY | 2024-02-13 18:06 | XMS_ITS | Encounter Summary ---
Author Organization [facility] Address [address] [place] [address] Care Team Providers Care Photoengraving Helper Name Role Phone Lisa Yan CUSTOMS APPRAISER Unavailable [phone] Lisa Yan CUSTOMS APPRAISER Unavailable Lia Pearson APRN Primary Care Provider [phone] Reason for Visit * Reason Onset Date Comments Blood Glucose Review 08/30/2023 Encounter Details Date Type Department Care Team (Late st Contact Info) Description 08/30/[address] [facility] [place]ocrinology [address] [place] [address] [phone] Lilibeth Arguello, TOM Blood Glucose Review Social [...] Notes * Telephone Encounter - Lisa Yan CUSTOMS APPRAISER - 08/31/2023 1034 EDT See eval encounter. [...] on filedocumented in this encounter Care Teams Photoengraving Helper Relationship Specialty Start Date End Date Lia Pearson APRN [address] [place] [address] PCP - General Family Medicine - [facility] Medicine 09/26/21 Lisa Yan NP [address] [place] [address] [phone] Nurse Practitioner Endocrinology, Diabetes and Metabolism 03/19/21 Lisa Yan NP [address] [place] [address] [phone] Nurse Practitioner Endocrinology, Diabetes and Metabolism 06/06/21 documented as of this encounter
--- OUTSIDE RECORDS SUMMARY | 2024-02-13 18:06 | XMS_ITS | Encounter Summary ---
Author Organization [facility] Address [address] [place] [address] Care Team Providers Care Frame Wirer Name Role Phone Lisa Yan ERISA ATTORNEY Unavailable Lisa Yan ERISA ATTORNEY Unavailable Lia Pearson APRN Primary Care Provider [phone] Reason for Visit * Reason Comments Medications Refill Encounter Details Date Type Department Care Team (Late st Contact Info) Description 04/14/2022 Refill [facility] - [facility] Endocrinology [address] [place] [address] Lisa Yan, ERISA ATTORNEY 130 [facility] [address] [place] [phone] Medications Refill Social History Tobacco Use Types [...] Encounter - Shari Hsu RN - 04/14/2022 0749 EST Pended for your e sig documented in this encounter Plan of Treatment Not on file documented as of this encounter Visit Diagnoses Not on filedocumented in this encounter Discontinued Medications Medication Sig Discontinue Reason Start Date End Da te gabapentin (NEURONTIN) 300 mg capsule TAKE ONE CAPSULE BY MOUTH THREE TIMES A DAY 11/18/2021 04/14/2022 documented as of this encounter Care Teams Frame Wirer Relationship Specialty Start Date End Date Lia Pearson APRN [address] [place] [address] PCP - General Family Medicine [facility] Medicine 09/26/21 Lisa Yan NP [address] [place] [address] [phone] Nurse Practitioner Endocrinology, Diabetes and Metabolism 03/19/21 Lisa Yan NP [address] [place] [address] [phone] Nurse Practitioner Endocrinology, Diabetes and Metabolism 06/06/21 documented as of this encounter
--- OUTSIDE RECORDS SUMMARY | 2024-02-13 18:06 | XMS_ITS | Encounter Summary ---
Author Organization [facility] Address [address] [place] [address] Care Team Providers Care Motor Vehicle Dispatcher Name Role Phone Lisa Yan SECURITIES LENDING TRADER Unavailable Lisa Yan SECURITIES LENDING TRADER Unavailable Lia Pearson APRN Primary Care Provider [phone] Encounter Details Date Type Department Care Team (Late st Contact Info) Description 02/11/2022 Orders Only [facility] - [facility] Endocrinology [address] [place] [address] Lisa Yan SECURITIES LENDING TRADER 130 [facility] [address] [place] [phone] Social History Tobacco Use Types [...] documented as of this encounter Care Teams Motor Vehicle Dispatcher Relationship Specialty Start Date End Date Lia Pearson APRN [address] [place] [address] PCP - General Family Medicine [facility] Medicine 09/26/21 Lisa Yan NP [address] [place] [address] [phone] Nurse Practitioner Endocrinology, Diabetes and Metabolism 03/19/21 Lisa Yan NP [address] [place] [address] [phone] Nurse Practitioner Endocrinology, Diabetes and Metabolism 06/06/21 documented as of this encounter
--- OUTSIDE RECORDS SUMMARY | 2024-02-13 18:06 | XMS_ITS | Encounter Summary ---
Author Organization [facility] Address [address] [place] [address] Care Team Providers Care Desk Pens Assembler Name Role Phone Lisa Yan ENGAGEMENT ENGINEER Unavailable Lisa Yan ENGAGEMENT ENGINEER Unavailable Lia Pearson APRN Primary Care Provider [phone] Reason for Visit * Reason Onset Date Comments Blood Glucose Review 07/13/2023 Encounter Details Date Type Department Care Team (Late st Contact Info) Description 07/13/2023 Telephone [facility] [place] [address] [place], [place] [phone] Dina Baldiwn, TOM [address] [place], [place] [phone] Blood Glucose Review Social History Tobacco Use [...] Notes * Telephone Encounter - Lisa Yan, ENGAGEMENT ENGINEER - 07/13/2023 0930 EST Sent [employer] message to reach out 1-2 weeks after [...] on filedocumented in this encounter Care Teams Desk Pens Assembler Relationship Specialty Start Date End Date Lia Pearson APRN [address] [place] [address] PCP - General Family Medicine - [facility] Medicine 09/26/21 Lisa Yan NP [address] [place] [address] [phone] Nurse Practitioner Endocrinology, Diabetes and Metabolism 03/19/21 Lisa Yan NP [address] [place] [address] [phone] Nurse Practitioner Endocrinology, Diabetes and Metabolism 06/06/21 documented as of this encounter
--- OUTSIDE RECORDS SUMMARY | 2024-02-13 18:06 | XMS_ITS | Encounter Summary ---
Author Organization [facility] Address [address] [place] [address] Care Team Providers Care Street Sprinkler Name Role Phone Lisa Yan UTILITIES GROUND WORKER Unavailable Lisa Yan UTILITIES GROUND WORKER Unavailable Lia Pearson APRN Primary Care Provider [phone] Encounter Details Date Type Department Care Team (Late st Contact Info) Description 05/26/[address] [facility] [place] [address] [place] [address] Lisa Yan UTILITIES GROUND WORKER [address] [facility] [address] [place] [address] Social History Tobacco Use Types [...] documented as of this encounter Care Teams Street Sprinkler Relationship Specialty Start Date End Date Lia Pearson APRN [address] [place] [address] PCP - General Family Medicine - [facility] Medicine 09/26/21 Lisa Yan NP [address] [place] [address] [phone] Nurse Practitioner Endocrinology, Diabetes and Metabolism 03/19/21 Lisa Yan NP [address] [place] [address] [phone] Nurse Practitioner Endocrinology, Diabetes and Metabolism 06/06/21 documented as of this encounter
--- OUTSIDE RECORDS SUMMARY | 2024-02-13 18:06 | XMS_ITS | Encounter Summary ---
Author Organization [facility] Address [address] [place] [address] Care Team Providers Care Neuroscience Director Na Name Role Phone Lisa Yan CLAMSHELL ENGINEER Unavailable Lisa Yan CLAMSHELL ENGINEER Unavailable Lia Pearson APRN Primary Care Provider [phone] Reason for Visit * Reason Onset Date Comments Medications Refill 04/23/2023 Encounter Details Date Type Department Care Team (Late st Contact Info) Description 04/23/2023 Refill [facility] [place] [address] [place], [place] [phone] Lisa Yan CLAMSHELL ENGINEER 130 [facility] [address] [place] [address] Medications Refill Social History Tobacco [...] documented as of this encounter Care Teams Neuroscience Director Na Relationship Specialty Start Date End Date Lia Pearson APRN [address] [place] [address] PCP - General Family Medicine - [facility] Medicine 09/26/21 Lisa Yan NP [address] [place] [address] [phone] Nurse Practitioner Endocrinology, Diabetes and Metabolism 03/19/21 Lisa Yan NP [address] [place] [address] [phone] Nurse Practitioner Endocrinology, Diabetes and Metabolism 06/06/21 documented as of this encounter
--- OUTSIDE RECORDS SUMMARY | 2024-02-13 18:06 | XMS_ITS | Encounter Summary ---
Author Organization [facility] Address [address] [place] [address] Care Team Providers Care Protection Specialist Name Role Phone Lisa Yan FRUIT SORTER Unavailable Lisa Yan FRUIT SORTER Unavailable Lia Pearson APRN Primary Care Provider [phone] Reason for Visit * Reason Comments Diabetes Encounter Details Date Type Department Care Team (Late st Contact Info) Description 08/31/2023 Evaluation [facility] [place]ocr[place]ology [address] [place] [address] Lisa Yan FRUIT SORTER 130 [facility] [address] [place] [address] Type 2 diabetes mellitus with hyperglycemia, with long-term current use of insulin ([facility]) (Primary Dx); Long-term insulin use (HCC-CMS); extermination inspector 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 Social [...] incidence: minimal, fasting Other (exercise/activity): PLAN: [employer] message ?lower metformin, ?lower humalog w/ higher activity ?how recovering from a low, spikes overnight with this? documented in this encounter Plan of Treatment Not on file documented as of this encounter Visit Diagnoses Diagnosis Type 2 diabetes mellitus with hyperglycemia, with long-term current use of insulin ([facility])- Primary Long-term insulin use ([facility]) Encounter for long-term (current) use of insulin extermination inspector 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 documented in this encounter Care Teams Protection Specialist Relationship Specialty Start Date End Date Lia Pearson APRN [address] [place] [address] PCP - General Family Medicine - [facility] Medicine 09/26/21 Lisa Yan NP [address] [place] [address] [address] [place] [phone] Nurse Practitioner Endocrinology, Diabetes and Metabolism 03/19/21 Lisa Yan NP [address] [place] [address] [address] [place] [phone] Nurse Practitioner Endocrinology, Diabetes and Metabolism 06/06/21 documented as of this encounter
--- OUTSIDE RECORDS SUMMARY | 2024-02-13 18:06 | XMS_ITS | Encounter Summary ---
Author Organization [facility] Address [address] [place] [address] Care Team Providers Care Concessions Manager Name Role Phone Lisa Yan ERP PROJECT MANAGER Unavailable Lisa Yan ERP PROJECT MANAGER Unavailable Lia Pearson APRN Primary Care Provider [phone] Reason for Visit * Reason Comments Diabetes Encounter Details Date Type Department Care Team (Late st Contact Info) Description 03/04/2022 15:00 EDT Office Visit [facility] [place] [address] [place] [address] Lisa Yan ERP PROJECT MANAGER 130 [facility] [address] [place] [address] Type 2 diabetes mellitus with hyperglycemia, with long-term current use of insulin ([facility]) (Primary Dx); Long-term insulin use ([facility]); [facility] 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; BMI 60.0-69.9, adult ([facility]); Other specified hypothyroidism; Essential hypertension, benign; Mixed [...] - 03/04/2022 1500 EDT Needs [facility] labs utd Lab Results Component Value Date UABCR 281 (H) 11/13/2021 HGBA1C 6.2 (A) 11/12/2021 * Lisa Yan NP - 03/04/2022 1500 EDT Reason for Visit: DM f/up PCP: BERNIE Pearson OTHER PROVIDERS: PURCHASING SUPERVISOR Dr. Haider, cardiology Zenia Ana [place] is a 31 y.o. female who presented to the clinic for a follow-up in [facility], with a history of DM for ?15 yrs. Hx of HLD, [place] on cpap, PTSD, schizoaffective disorder, anemia, hypothyroid, hypoglycemia comas. Does not currently work. Lives on her own. Is working with [employer] on finding work. Sister lives in [place]. Parents have . 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 Working with weight and wellness at [facility], feels this is going well. Will go forward with bariatric surgery in 06/2022. Had IUD placed yesterday and other PURCHASING SUPERVISOR procedures, including TVUS for menogorrhea. States she was intubated as well. Was requested to fast prior to starting Wednesday evening. Did not take ozempic or insulin yesterday. Did take ozempic and lantus this morning. Did have COVID earlyAugust, did have greatly elevated BG's with this. Did have fever when first positive, body aches. [place] much better after 5 or so days. [...] supplier regarding this. Did get labs at [facility]. TSH 2.98 (08/2021) Levothyroxine 200 mcg [facility] DM: dad, brother Recent A1C: [...] ACEI/ARB: losartan 25 mg Prior visit with seal extrusion operator: CORNELIO Aguayo Foot care: self Comorbidities: [...] to the clinic for a follow-up in [facility], with a history of DM for ?15 yrs. Problem List Items Addressed This Visit Endocrine/Metabolic Type 2 diabetes mellitus with hyperglycemia, with long-term current use of insulin ([facility]) ([facility]) - Primary Uncontrolled A1C 8.6 BG's are [...] Relevant Orders POCT HEMOGLOBIN A1C (Completed) URINE PVICBZT-TQ-[id number] RATIO (ACR) Other specified hypothyroidism BMI 60.0-69.9, adult ([facility]) ([facility]) Long-term insulin use ([facility]) ([facility]) terminal make up operator 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 Cardiac/Vasculature [...] with long- term current use of insulin ([facility]) Uncontrolled A1C 8.6 BG's are improving. [...] with long-term current use of insulin ([facility]) documented in this encounter Results * (ABNORMAL) URINE AXALQZA-EZ-CIYUVHUGTU RATIO (ACR) (06/18/2022 16:01 EST) Albumin, Urine 103.6 See Note mg/dL 2022 18:48 [facility] Comment: NOTE: Reference range not established Creatinine, Urine 159.3 See Note mg/dL 06/18/2022 18:48 [facility] Comment: NOTE: Reference range not established Lab Urine Albumin to Creatinine Ratio 650(H) <30 ??g/mg Creatinine 06/18/2022 18:48 [facility] Comment: Urine Albumin/Creatinine Ratio: Normal: <30 ug/mg Creatinine Moderately increased albuminuria: 30-300 ug/mg Creatinine [place] increased albuminuria: >300 ug/mg Creatinine Urine URINE SPECIMEN COLLECTION, CLEAN CATCH / Unknown Urine Collect / Unknown 06/18/2022 16:01 EST 06/18/2022 16:01 EST Lisa Yan NP CHEMISTRY & BLOOD GAS ORDERABLES [facility] [address] [place] [address] * (ABNORMAL) POCT HEMOGLOBIN A1C (03/04/2022) Hemoglobin A1c, POC 8.6(A) 5.7 % [facility] POINT OF CARE Blood CAPILLARY BLOOD / Unknown 03/04/2022 Lisa Yan NP POINT OF CARE SARAY T ORDERABLES [facility] POINT OF CARE documented in this encounter Visit Diagnoses Diagnosis Type 2 diabetes mellitus with hyperglycemia, with long-term current use of insulin ([facility])- Primary Long-term insulin use ([facility]) Encounter for long-term (current) use of insulin [facility] 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 BMI 60.0-69.9, adult ([facility]) Body Mass Index 60.0-69.9, adult Other [...] 10/23/2022 added in this encounter Care Teams Concessions Manager Relationship Specialty Start Date End Date Lia Pearson APRN [address] [place] [address] PCP - General Family Medicine [facility] Medicine 09/26/21 Lisa Yan NP [address] [place] [address] [phone] Nurse Practitioner Endocrinology, Diabetes and Metabolism 03/19/21 Lisa Yan NP [address] [place] [address] [phone] Nurse Practitioner Endocrinology, Diabetes and Metabolism 06/06/21 documented as of this encounter
--- OUTSIDE RECORDS SUMMARY | 2024-02-13 18:06 | XMS_ITS | Encounter Summary ---
Author Organization [facility] Address [address] [place] [address] Care Team Providers Care Velocity Shooter Name Role Phone Lisa Yan ELECTRIC POWER LINE EXAMINER Unavailable [phone] Lisa Yan ELECTRIC POWER LINE EXAMINER Unavailable Lia Pearson APRN Primary Care Provider [phone] Encounter Details Date Type Department Care Team (Late st Contact Info) Description 01/06/2023 Lab Requisition [facility] Pathology & Laboratory Medicine - [facility] [address] [place], [place] [phone] Outr Resulting Lab, Provider Social History Tobacco [...] 5 See Note ug/dL 01/06/2023 19:49 EDT [facility] Comment: NOTE: Reference Ranges (from [...] [facility] Co de Phone Number [facility] [address] [place] [address] documented in this encounter Visit Diagnoses Not on filedocumented in this encounter Care Teams Velocity Shooter Relationship Specialty Start Date End Date Lia Pearson APRN [address] [place] [address] PCP - General Family Medicine - [facility] Medicine 09/26/21 Lisa Yan NP [address] [place] [address] [phone] Nurse Practitioner Endocrinology, Diabetes and Metabolism 03/19/21 Lisa Yan NP [address] [place] [address] [address] [place] [phone] Nurse Practitioner Endocrinology, Diabetes and Metabolism 06/06/21 documented as of this encounter
--- OUTSIDE RECORDS SUMMARY | 2024-02-13 18:06 | XMS_ITS | Encounter Summary ---
Author Organization [facility] Address [address] [place] [address] Care Team Providers Care Production Trainer Name Role Phone Lisa Yan FOREST FIRE SPECIALIST SUPERVISOR Unavailable Lisa Yan FOREST FIRE SPECIALIST SUPERVISOR Unavailable Lia Pearson APRN Primary Care Provider [phone] Encounter Details Date Type Department Care Team (Late st Contact Info) Description 03/17/2022 Orders Only [facility] [place] [address] [place] [address] Lisa Yan FOREST FIRE SPECIALIST SUPERVISOR 130 [facility] [address] [place] [phone] Social History Tobacco Use Types [...] on filedocumented in this encounter Care Teams Production Trainer Relationship Specialty Start Date End Date Lia Pearson APRN [address] [place] [address] PCP - [facility] 09/26/21 Lisa Yan FOREST FIRE SPECIALIST SUPERVISOR [address] [place] [address] [phone] Nurse Practitioner Endocrinology, Diabetes and Metabolism 03/19/21 Lisa Yan NP [address] [place] [address] [phone] Nurse Practitioner Endocrinology, Diabetes and Metabolism 06/06/21 documented as of this encounter
--- OUTSIDE RECORDS SUMMARY | 2024-02-13 18:06 | XMS_ITS | Encounter Summary ---
Author Organization [facility] Address [address] [place] [address] Care Team Providers Care Court Collections Officer Name Role Phone Lsia Yan MACHINE PRINTER Unavailable [phone] Lisa Yan MACHINE PRINTER Unavailable [phone] Lia Pearson APRN Primary Care Provider [phone] Reason for Visit * Reason Onset Date Comments Follow-up 01/16/2022 Encounter Details Date Type Department Care Team (Late st Contact Info) Description 01/16/2022 Telephone [facility] Endocrinology [address] [place] [address] [phone] Shari Hsu RN Follow-up Social History Tobacco [...] Notes * Telephone Encounter - Lisa Yan MACHINE PRINTER - 01/16/2022 4341 EDT On the path towards bariatric surgery. [...] Encounter - Shari Hsu RN - 01/16/[address] Waller from [facility] would like you to call her back [phone] documented in this encounter Plan of Treatment Not on file documented as of this encounter Visit Diagnoses Not on filedocumented in this encounter Care Teams Court Collections Officer Relationship Specialty Start Date End Date Lia Pearson APRN [address] [place] [address] PCP - General Family Medicine - [facility] Medicine 09/26/21 Lisa Yan NP [address] [place] [address] [phone] Nurse Practitioner Endocrinology, Diabetes and Metabolism 03/19/21 Lisa Yan NP [address] [place] [address] [phone] Nurse Practitioner Endocrinology, Diabetes and Metabolism 06/06/21 documented as of this encounter
--- OUTSIDE RECORDS SUMMARY | 2024-02-13 18:06 | XMS_ITS | Encounter Summary ---
Author Organization [facility] Address [address] [place] [address] Care Team Providers Care Fryline Attendant Name Role Phone Lisa Yan INFORMATION RESOURCE CONSULTANT Unavailable [phone] Lisa Yan INFORMATION RESOURCE CONSULTANT Unavailable Lia Pearson APRN Primary Care Provider [phone] Reason for Visit * Reason Comments Diabetes Encounter Details Date Type Department Care Team (Latest Contact Info) Description 10/29/2023 10:30 EDT Office Visit [facility] Endocrinology [address] [place] [address] Lisa Yan INFORMATION RESOURCE CONSULTANT 130 [facility] [address] [place] [phone] Type 2 diabetes mellitus with hyperglycemia, with long-term current use of insulin ([facility]) (Primary Dx); Long-term insulin use ([facility]-CMS); joint terminal attack controller 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; BMI [...] to hold this mornings going to work [employer]. Continue with Metformin XR 500 mg twice [...] with concerns. Call podiatry to schedule visit: [phone] documented in this encounter Ordered Prescriptions Prescription Sig Dispensed Refills Start Date End Da te metFORMIN (GLUCOPHAGE-XR) 500 mg ER tabletIndications:Type 2 diabetes mellitus with hyperglycemia, with long-term current use of insulin ([facility]) Take 1 Tablet by mouth 2 times daily. 180 Tablet 3 10/29/2023 HUMALOG KWIKPEN INSULIN 100 unit/mL injectable penIndications:Type 2 diabetes mellitus with hyperglycemia, with long-term current use of insulin ([facility]) TDD 10 units, 1-5 units with meals twice daily 15 mL 2 10/29/2023 12/13/2023 insulin glargine 100 unit/mL (3 mL) injection penIndications:Type 2 diabetes mellitus with hyperglycemia, with long-term current use of insulin ([facility]) Inject 6 Units into the skin once daily AND 7 Units at bedtime. E11.65 6 units am, 5 units pm. 15 mL 2 10/29/2023 10/29/2023 documented in this encounter Progress Notes * Shari Hsu RN - 10/29/2023 1030 EDT Needs eye Lab Results Component Value Date UABCR 1,665 (H) 08/13/2023 HGBA1C 8.0 (H) 08/13/2023 [id number] given POCT A!C and glucose performed by Shari Hsu RN , consent given by pt, pt. Tolerated well, ordering provider Lisa Yan NP, site accessed l 3rd finger [id number]-[id number], pb and crackers given POCT glucose performed [...] DM f/up PCP: BERNIE Pearson OTHER PROVIDERS: [employer] [facility] Dr. Haider, cardiology [facility], [facility] Zenia Worley is a 33 y.o. female who presented to the clinic for a follow-up in [facility], with a history of DM since 2004. Hx of HLD, [place] on cpap, PTSD, schizoaffective disorder, anemia, hypothyroid,hypoglycemia comas, s/p bariatri surgery (2023) Lives on her own. Is working with [employer] on finding work. Sister lives in [place]. Parents have . See counseling weekly [facility] admission about early 2023 mo ago d/t N/V, had hypertensive crisis while admitted. Stopped lantus while inpatient d/t hypoglycemia as well. Stopped GLP and recommended to hold these until cleared further by surgery d/t gastroparesis and N/V/dehydration. 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 TSH 1.34 (07/2023) Levothyroxine 200 mcg [facility] DM: dad, brother Recent A1C: 9.3 (10/2023) [...] Problems Eye exam current (within one year): WVD, [facility] Last dental exam: overdue CVD,PVD,CAD: HLD, HTN Statin: rosuvastatin 40 mg, LDL 114 (07/2023) Aspirin: no ACEI/ARB: losartan 25 mg Prior visit with self propelled mining machine operator: CORNELIO Aguayo Foot care: self Comorbidities: [...] to the clinic for a follow-up in [facility], with a history of DM since 2004. Problem List Items Addressed This Visit Endocrine/Metabolic Type 2 diabetes mellitus with hyperglycemia, with long-term current use of insulin ([facility]) - Primary Uncontrolled A1C 9.3 No BG's today. Reports elevations in AM. BG at 66 upon recheck, given juice, crackers/PB., additional to take with. Increase lantus 7 units PM and continue 6 units AM, continue to hold this mornings going to work [employer]. Continue with Metformin XR 500 mg twice [...] specified hypothyroidism TSH stable. BMI 60.0-69.9, adult ([facility]) Long-term insulin use ([facility]) joint terminal attack controller 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 Cardiac/Vasculature [...] with long- term current use of insulin ([facility]) Uncontrolled A1C 9.3 No BG's today. Reports elevations in AM. BG at 66 upon recheck, given juice, crackers/PB., additional to take with. Increase lantus 7 units PM and continue 6 units AM, continue to hold this mornings going to work [employer]. Continue with Metformin XR 500 mg twice [...] Hsu RN - 10/29/2023 1030 EDTAddended by: SAHRI HSU on: 10/29/2023 11:28 Modules accepted: Orders [...] hyperglycemia, with long-term current use of insulin ([facility]) POCT GLUCOSE, MANUAL ENTRY Routine 10/29/2023 Type 2 diabetes mellitus with hyperglycemia, with long-term current use of insulin ([facility]) POCT GLUCOSE, MANUAL ENTRY Routine 10/29/2023 Type 2 diabetes mellitus with hyperglycemia, with long-term current use of insulin ([facility]) POCT HEMOGLOBIN A1C Routine 10/29/2023 Type 2 diabetes mellitus with hyperglycemia, with long-term current use of insulin ([facility]) documented in this encounter Results * (ABNORMAL) POCT GLUCOSE, MANUAL ENTRY (10/29/2023) Glucose, POC 143(A) 70 - 100 mg/dL UVN POINT OF CARE HN LAB POC COMMENT MANUAL (GLUCOSE) [facility] POINT OF sleeve setter ID [facility] POIN T OF CARE Blood CAPILLARY BLOOD / Unknown 10/29/2023 Lisa Yan NP POINT OF CARE SARAY T ORDERABLES Performing Organization Address City/[facility]/ZIP Co de Phone Number [facility] POINT OF CARE * (ABNORMAL) POCT GLUCOSE, MANUAL ENTRY (10/29/2023) Glucose, POC 55(A) 70 - 100 mg/dL [facility] POINT OF CARE HN LAB POC COMMENT MANUAL (GLUCOSE) [facility] POINT OF sleeve setter ID [facility]N POIN T OF CARE Blood CAPILLARY BLOOD / Unknown 10/29/2023 Lisa Yan NP POINT OF CARE SARAY T ORDERABLES Performing Organization Address [facility] de Phone Number [facility] POINT OF CARE * (ABNORMAL) POCT GLUCOSE, MANUAL ENTRY (10/29/2023) Glucose, POC 66(A) 70 - 100 mg/dL [facility] POINT OF CARE HN LAB POC COMMENT MANUAL (GLUCOSE) [facility] POINT OF sleeve setter ID UVN POIN T OF CARE Blood CAPILLARY BLOOD / Unknown 10/29/2023 Lisa Yan INFORMATION RESOURCE CONSULTANT POINT OF CARE SARAY T ORDERABLES Performing Organization Address [facility] Co de Phone Number [facility] POINT OF CARE * (ABNORMAL) POCT HEMOGLOBIN A1C (10/29/2023) Hemoglobin A1c, POC 9.3(A) 5.7 % [facility] POINT OF CARE Blood CAPILLARY BLOOD / Unknown 10/29/2023 Lisa Yan NP POINT OF CARE SARAY T ORDERABLES Performing Organization Address [facility] Co de Phone Number [facility] POINT OF CARE documented in this encounter Visit Diagnoses Diagnosis Type 2 diabetes mellitus with hyperglycemia, with long-term current use of insulin ([facility])- Primary Long-term insulin use ([facility]) Encounter for long-term (current) use of insulin [facility] 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 BMI 60.0-69.9, adult ([facility]) Body Mass Index 60.0-69.9, adult Other specified [...] long-term current use of insulin ([facility]) Take 2 Tablets by mouth 2 [...] 10/04/2023 added in this encounter Care Teams Fryline Attendant Relationship Specialty Start Date End Date Lia Pearson APRN [address] [place] [phone] PCP - General Family Medicine - [facility] Medicine 09/26/21 Lisa Yan NP [address] [place] [address] [address] [place] [phone] Nurse Practitioner Endocrinology, Diabetes and Metabolism 03/19/21 Lisa Yan NP [address] [place] [phone] Nurse Practitioner Endocrinology, Diabetes and Metabolism 06/06/21 documented as of this encounter
--- OUTSIDE RECORDS SUMMARY | 2024-02-13 18:06 | XMS_ITS | Encounter Summary ---
Author Organization [facility] Address [address] [place] [address] Care Team Providers Care Manager Of Operations Name Role Phone Lisa Yan NET DEVELOPER Unavailable [phone] Lisa Yan NET DEVELOPER Unavailable [phone] Lia Pearson APRN Primary Care Provider [phone] Reason for Visit * Reason Onset Date Comments Medication Management 06/01/2023 Encounter Details Date Type Department Care Team (Late st Contact Info) Description 06/01/2023 Telephone [facility] [place]inology [address] [place] [phone] Shari Hsu RN Medication Management Social History [...] documented as of this encounter Care Teams Manager Of Operations Relationship Specialty Start Date End Date Lia Pearson APRN [address] [place] [phone] PCP - General Family Medicine - [facility] Medicine 09/26/21 Lisa Yan NP [address] [place] [address] [phone] Nurse Practitioner Endocrinology, Diabetes and Metabolism 03/19/21 Lisa Yan NP [address] [place] [phone] Nurse Practitioner Endocrinology, Diabetes and Metabolism 06/06/21 documented as of this encounter
--- OUTSIDE RECORDS SUMMARY | 2024-02-13 18:06 | XMS_ITS | Encounter Summary ---
Author Organization [facility] Address [address] [place] [address] Care Team Providers Care Turner Machine Operator Name Role Phone Lisa Yan LEAD PRESSMAN ROTO GRAVURE PRINTING Unavailable Lisa Yan LEAD PRESSMAN ROTO GRAVURE PRINTING Unavailable [phone] Lia Pearson APRN Primary Care Provider [phone] Reason for Visit * Reason Comments Diabetes Encounter Details Date Type Department Care Team (Late st Contact Info) Description 06/11/2023 9:30 EST Office Visit [facility] Endocrinology [address] [place] [address] Lisa Yan LEAD PRESSMAN ROTO GRAVURE PRINTING 130 [facility] [address] [place] [phone] Type 2 diabetes mellitus with hyperglycemia, with long-term current use of insulin ([facility]) (Primary Dx); Other specified hypothyroidism; BMI 60.0-69.9, adult ([facility]); Long-term insulin use ([facility]); custodial 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; Mixed [...] long-term current use of insulin ([facility]) Inject 10 Units into the skin once daily AND 10 Units at bedtime. 30 mL 2 06/11/2023 08/13/2023 tirzepatide (MOUNJARO) 2.5 mg/0.5 mL pen injectorIndications:Type 2 diabetes mellitus with hyperglycemia, with long-term current use of insulin ([facility]) Inject 0.5 mL into the skin once [...] DM f/up PCP: BERNIE Pearson OTHER PROVIDERS: MANAGER QUALITY COMPLIANCE [facility] Dr. Haider, cardiology [facility], [facility] Zenia Worley is a 33 y.o. female who presented to the clinic for a follow-up in [facility], with a history of DM since 2004. Hx of HLD, [place] on cpap, PTSD, schizoaffective disorder, anemia, hypothyroid,hypoglycemia comas, s/p bariatri surgery (2023) Does not currently work. Lives on her own. Is working with [employer] on finding work. Sister lives in [place]. Parents have . Underwent bariatric surgery 1 [...] well. TSH 1.42 (09/2022) Levothyroxine 200 mcg [facility] DM: dad, brother Recent A1C: 10 [...] Problems Eye exam current (within one year): ORD, [facility] Last dental exam: overdue CVD,PVD,CAD: HLD, HTN Statin: rosuvastatin 40 mg, LDL 92 (06/2022) Aspirin: no ACEI/ARB: losartan 25 mg Prior visit with precision lens centerer and edger: CORNELIO Aguayo Foot care: self Comorbidities: Retinopathy: [...] to the clinic for a follow-up in [facility], with a history of DM since 2004. Problem List Items Addressed This Visit Endocrine/Metabolic Type 2 diabetes mellitus with hyperglycemia, with long-term current use of insulin ([facility]) - Primary Controlled A1C 6.7 CGM data [...] COMPREHENSIVE METABOLIC PANEL (CMP) THYROID CASCADE URINE [id number] RATIO (ACR) Other specified hypothyroidism Relevant Orders THYROID CASCADE BMI 60.0-69.9, adult ([facility]) Long-term insulin use ([facility]) terminal block assembler 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 Cardiac/Vasculature [...] with long- term current use of insulin ([facility]) Controlled A1C 6.7 CGM data looks great. [...] on file documented as of this encounter Results * (ABNORMAL) URINE RNUWLOR-IA-JYIBBJWXDS RATIO (ACR) (08/13/2023 9:58 EDT) Albumin, Urine 74.1 See Note mg/dL 2023 17:16 EDT [facility] Comment: NOTE: Reference range not established Creatinine, Urine 44.5 See Note mg/dL 08/13/2023 17:16 EDT [facility] Comment: NOTE: Reference range not established Lab Urine Albumin to Creatinine Ratio 1,665(H) <30 ??g/mg Creatinine 08/13/2023 17:16 EDT [facility] Comment: Urine Albumin/Creatinine Ratio: Normal: <30 ug/mg Creatinine Moderately increased albuminuria: 30-300 ug/mg Creatinine Severely increased albuminuria: >300 ug/mg Creatinine Urine URINE / Unknown Urine Collect / Unknown 08/13/2023 9:58 EDT 08/13/2023 11:25 EDT Lisa Yan NP CHEMISTRY & BLOOD GAS ORDERABLES [facility] [address] [place] [phone] * THYROID CASCADE (08/13/2023 9:58 EDT) TSH 1.34 0.47 - 4.68 mIU/L 08/13/2023 11:45 EDT [facility] Blood VENOUS BLOOD / Unknown Venipuncture / Unknown 08/13/2023 9:58 EDT 08/13/2023 10:24 EDT Narrative [facility] - 08/13/2023 11:45 EDT NOTE: The results of this assay can be falsely lowered due to the consumption of Biotin. Lisa Yan NP CHEMISTRY & BLOOD GAS ORDERABLES [facility] [address] [place] [address] documented in this encounter Visit Diagnoses Diagnosis Type 2 diabetes mellitus with hyperglycemia, with long-term current use of insulin ([facility])- Primary Other specified hypothyroidism BMI 60.0-69.9, adult ([facility]) Body Mass Index 60.0-69.9, adult Long-term insulin use ([facility]) Encounter for long-term (current) use of insulin custodial 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 Mixed [...] hyperglycemia, with long-term current use of insulin ([facility]) Inject 0.5 mL into the skin once [...] 05/18/2023 methocarbamoL (ROBAXIN) 500 mg tablet 01/14/2023 prochlorperazine (COMPAZINE) 5 mg tablet 1 Tablet. prn 06/08/2023 ondansetron (ZOFRAN-ODT) 4 mg disintegrating tablet 06/08/2023 omeprazole (PRILOSEC) 40 mg capsule Take 1 Capsule by mouth every morning. 06/08/2023 ARIPiprazole (ABILIFY) 5 mg tablet Take 1 Tablet by mouth daily. 05/24/2023 ursodioL (ACTIGALL) 300 mg capsule Take 1 Capsule by mouth 2 times daily. 06/17/2023 12/14/2023 oxyCODONE (ROXICODONE) 5 mg/5 mL solution Take [...] 06/11/2023 documented in this encounter Care Teams Turner Machine Operator Relationship Specialty Start Date End Date Lia Pearson APRN [address] [place] [phone] PCP - General Family Medicine - Hospital Medicine 09/26/21 Lisa Yan NP [address] [place] [phone] Nurse Practitioner Endocrinology, Diabetes and Metabolism 03/19/21 Lisa Yan NP [address] [place] [phone] Nurse Practitioner Endocrinology, Diabetes and Metabolism 06/06/21 documented as of this encounter
--- OUTSIDE RECORDS SUMMARY | 2024-02-13 18:06 | XMS_ITS | Encounter Summary ---
Author Organization [facility] Address [address] [place] [address] Care Team Providers Care Volunteer Services Coordinator Name Role Phone Lisa Yan LINEN WORKER Unavailable Lisa Yan LINEN WORKER Unavailable [phone] Lia Pearson APRN Primary Care Provider [phone] Reason for Visit * Reason Comments Diabetes Encounter Details Date Type Department Care Team (Late st Contact Info) Description 01/29/2023 11:30 EDT Office Visit [facility] [place] Endocrinology [address] [place] [address] Lisa Yan LINEN WORKER 130 [facility] [address] [place] [phone] Type 2 diabetes mellitus with hyperglycemia, with long-term current use of insulin ([facility]) (Primary Dx); Other specified hypothyroidism; Long-term insulin use ([facility]); 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 Switch to 71lbs G7 CGM if able, use phone as [...] DM f/up PCP: BERNIE Pearson OTHER PROVIDERS: LEAN MANUFACTURING SPECIALIST [facility] Dr. Haider, cardiology [facility], [facility] Zenia Worley is a 32 y.o. female who presented to the clinic for a follow-up in [facility], with a history of DM since 2004. Hx of HLD, [place] on cpap, PTSD, schizoaffective disorder, anemia, hypothyroid,hypoglycemia comas. Does not currently work. Lives on her own. Is working with [employer] on finding work. Sister lives in [place]. Parents have . 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 Trip planned to [place] for [employer]. Mentions being in the hospital [facility],about 2 weeks ago for 3 days d/t feeling weak/unwell. ?anemia. Lowered insulin since then. Seeing hematology. Seeing LEAN MANUFACTURING SPECIALIST. Has met with bariatric surgeon this week. [...] Eye exam current (within one year): UTD, [facility] Last dental exam: overdue CVD,PVD,CAD: HLD, HTN Statin: simvastatin 40 mg, LDL 92 (06/2022) Aspirin: no ACEI/ARB: losartan 25 mg Prior visit with mine environmental engineer: CORNELIO Aguayo Foot care: self Comorbidities: Retinopathy: [...] to the clinic for a follow-up in [facility], with a history of DM since 2004. Problem List Items Addressed This Visit Endocrine/Metabolic Type 2 diabetes mellitus with hyperglycemia, with long-term current use of insulin ([facility]) ([facility]) - Primary Controlled A1C 6.7 Lots of lows. Lower lantus 10 units daily. Adjust novolog sliding scale, given new meal based regimen sheet Continue with jardiance 10 mg daily, ozempic 2 mg weekly injection and Metformin XR 1000 mg twice daily with food. Switch to 71lbs G7 CGM if able, use phone as reader. Discussed apps to download with this. If not able, continue with Swipesense 2 CGM. Call if having lows <80's!! [...] specified hypothyroidism TSH stable. 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 Lower lantus 10 units daily. Adjust novolog sliding scale, given new meal based regimen sheet Continue with jardiance 10 mg daily, ozempic 2 mg weekly injection and Metformin XR 1000 mg twice daily with food. Switch to 71lbs G7 CGM if able, use phone as [...] hyperglycemia, with long-term current use of insulin ([facility]) documented in this encounter Results * (ABNORMAL) POCT HEMOGLOBIN A1C (01/29/2023) Hemoglobin A1c, POC 6.7(A) 5.7 % [facility] POINT OF CARE Blood CAPILLARY BLOOD / Unknown 01/29/2023 Lisa Yan NP POINT OF CARE SARAY T ORDERABLES [facility] POINT OF CARE documented in this encounter Visit Diagnoses Diagnosis Type 2 diabetes mellitus with hyperglycemia, with long-term current use of insulin ([facility])- Primary Other specified hypothyroidism Long-term insulin use ([facility]) Encounter for long-term (current) use of insulin 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 Essential hypertension, benign Mixed hyperlipidemia BMI 60.0-69.9, adult ([facility]) Body Mass Index 60.0-69.9, adult documented in [...] documented as of this encounter Care Teams Volunteer Services Coordinator Relationship Specialty Start Date End Date Lia Pearson APRN [address] [place] [phone] PCP - General Family Medicine - [facility] 09/26/21 Lisa Yan LINEN WORKER [address] [place] [address] [phone] Nurse Practitioner Endocrinology, Diabetes and Metabolism 03/19/21 Lisa Yan NP [address] [place] [phone] Nurse Practitioner Endocrinology, Diabetes and Metabolism 06/06/21 documented as of this encounter
--- OUTSIDE RECORDS SUMMARY | 2024-02-13 18:06 | XMS_ITS | Encounter Summary ---
Author Organization [facility] Address [address] [place] [address] Care Team Providers Care Computer Technical Specialist Name Role Phone Lisa Yan DEPUTY SHERIFF GENERALIST/BAILIFF Unavailable Lisa Yan DEPUTY SHERIFF GENERALIST/BAILIFF Unavailable [phone] Lia Pearson APRN Primary Care Provider [phone] Reason for Visit * Reason Onset Date Comments Medication Problem 03/12/2023 Nationwide sh ortage on her Ozempic Encounter Details Date Type Department Care Team (Late st Contact Info) Description 03/12/2023 Telephone [facility] [place] Endocrinology [address] [place] [address] Dina Baldwin, RN [address] [place], [place] [phone] Medication Problem (Nationwide shortage on her Ozempic) [...] current use of insulin ([facility]) Inject 0.5 mL into the skin once a week. If tolerating lower dose after 4 weeks, increase 5 mg weekly. 4 mL 2 03/15/2023 06/15/2023 tirzepatide (MOUNJARO) 2.5 mg/0.5 mL pen injectorIndications:Type 2 diabetes mellitus with hyperglycemia, with long-term current use of insulin ([facility]) Inject 0.5 mL into the skin once [...] with patient and offered to check with [facility] pharmacy if medication is available. Patient is not currently enrolled in the [facility] program and prefers to switch to Lisa's suggestion of mounjaro. Patient prefers to use [facility] in [place], [place]. * Telephone Encounter - Lisa Yan NP - 03/15/2023 1254 EDT Was she able to get this sent out from [facility]? Mychart message from TOM Arguello 03/09? If not, we can switch to mounjaro 2.5 mg weekly, if tolerating well after 4 weeks, increase 5 mg weekly injection. Thanks. * Telephone Encounter - Dina Baldwin RN - 03/12/2023 6277 EDT She is on her second week without Ozempic due to nationwide shortage. What do you want to use in the interim? documented in this encounter Plan of Treatment Not on file documented as of this encounter Visit Diagnoses Diagnosis Type 2 diabetes mellitus with hyperglycemia, with long-term current use of insulin ([facility])- Primary documented in this encounter Care Teams Computer Technical Specialist Relationship Specialty Start Date End Date Lia Pearson APRN [address] [place] [phone] PCP - General Family Medicine - [facility] Medicine 09/26/21 Lisa Yan NP [address] [place] [address] [phone] Nurse Practitioner Endocrinology, Diabetes and Metabolism 03/19/21 Lisa Yan NP [address] [place] [address] [phone] Nurse Practitioner Endocrinology, Diabetes and Metabolism 06/06/21 documented as of this encounter
--- OUTSIDE RECORDS SUMMARY | 2024-02-13 18:06 | XMS_ITS | Encounter Summary ---
Author Organization [facility] Address [address] [place] [address] Care Team Providers Care Spine Surgeon Name Role Phone Lisa Yan SAMPLE TESTER GRINDER Unavailable Lisa Yan SAMPLE TESTER GRINDER Unavailable [phone] Lia Pearson APRN Primary Care Provider [phone] Reason for Visit * Reason Comments Medications Refill Encounter Details Date Type Department Care Team (Late st Contact Info) Description 06/30/2022 Refill [facility] Endocrinology [address] [place] [address] Lisa Yan, SAMPLE TESTER GRINDER [address] [facility] [address] [place] [phone] Medications Refill Social History Tobacco Use Types [...] Encounter - Sheryl More RN - 06/30/2022 0581 EST Prescription sent to pharmacy per Lisa [...] documented as of this encounter Care Teams Spine Surgeon Relationship Specialty Start Date End Date Lia Pearson APRN [address] [place] [address] PCP - General Family Medicine [facility] Medicine 09/26/21 Lisa Yan NP [address] [place] [address] [phone] Nurse Practitioner Endocrinology, Diabetes and Metabolism 03/19/21 Lisa Yan NP [address] [place] [address] [phone] Nurse Practitioner Endocrinology, Diabetes and Metabolism 06/06/21 documented as of this encounter
--- OUTSIDE RECORDS SUMMARY | 2024-02-13 18:06 | XMS_ITS | Encounter Summary ---
Author Organization [facility] Address [address] [place] [address] Care Team Providers Care Reference Librarian Name Role Phone Lisa Yan CENTRAL OFFICE WORKER Unavailable [phone] Lisa Yan CENTRAL OFFICE WORKER Unavailable [phone] Lia Pearson APRN Primary Care Provider [phone] Reason for Visit * Reason Onset Date Comments Prior Auth, Medication 06/11/2023 [place] Encounter Details Date Type Department Care Team (Late st Contact Info) Description 06/11/2023 Telephone [facility] [place] [address] [place] [address] Tasha Tavares RN Prior Auth, [...] Telephone Encounter - Shari Hsu RN - 06/15/2023 1052 EST Pt messaged, [...] long-term current use of insulin ([facility]) Inject 0.5 mL into the skin once [...] documented as of this encounter Care Teams Reference Librarian Relationship Specialty Start Date End Date Lia Pearson APRN [address] [place] [phone] PCP - General [facility] Medicine 09/26/21 Lisa Yan NP [address] [place] [address] [phone] Nurse Practitioner Endocrinology, Diabetes and Metabolism 03/19/21 Lisa Yan NP [address] [place] [address] [phone] Nurse Practitioner Endocrinology, Diabetes and Metabolism 06/06/21 documented as of this encounter
--- OUTSIDE RECORDS SUMMARY | 2024-02-13 18:06 | XMS_ITS | Encounter Summary ---
Author Organization [facility] Address [address] [place] [address] Care Team Providers Care Mat Sewer Name Role Phone Lisa Yan CHEESE GRADER Unavailable [phone] Lisa Yan CHEESE GRADER Unavailable Lia Pearson APRN Primary Care Provider [phone] Reason for Visit * Reason Onset Date Comments Medications Refill 08/30/2023 Encounter Details Date Type Department Care Team (Late st Contact Info) Description 08/30/2023 Refill [facility] Endocrinology [address] [place] [phone] Tasha Tavares RN Medications Refill Social History [...] hyperglycemia, with long-term current use of insulin ([facility]) Take 2 Tablets by mouth 2 times daily. 360 Tablet 3 08/30/2023 10/29/2023 documented in this encounter Miscellaneous Notes * Telephone Encounter - Tasha Tavares, RN - 08/30/2023 1513 EDT Levothyroxine and metformin e-scribed. Labs and ofc visits up to date. documented in this encounter Plan of Treatment Not on file documented as of this encounter Visit Diagnoses Diagnosis Type 2 diabetes mellitus with hyperglycemia, with long-term current use of insulin ([facility])- Primary Other specified hypothyroidism documented in this encounter Discontinued Medications Medication Sig Discontinue Reason Start Date End Da te metFORMIN (GLUCOPHAGE-XR) 500 mg ER tablet TAKE TWO TABLETS BY MOUTH TWICE A DAY Reorder 09/14/2022 08/30/2023 levothyroxine (SYNTHROID) 200 mcg tablet Take 1 Tablet by mouth daily. Reorder 03/29/2023 08/30/2023 documented as of this encounter Care Teams Mat Sewer Relationship Specialty Start Date End Date Lia Pearson APRN [address] [place] [phone] PCP - General Family Medicine - [facility] Medicine 09/26/21 Lisa Yan NP [address] [place] [phone] Nurse Practitioner Endocrinology, Diabetes and Metabolism 03/19/21 Lisa Yan NP [address] [place] [phone] Nurse Practitioner Endocrinology, Diabetes and Metabolism 06/06/21 documented as of this encounter
--- OUTSIDE RECORDS SUMMARY | 2024-02-13 18:06 | XMS_ITS | Encounter Summary ---
Author Organization [facility] Address [address] [place] [address] Care Team Providers Care Gear Shaper Name Role Phone Lisa Yan CORPORATE TRAVEL MANAGER Unavailable [phone] Lisa Yan CORPORATE TRAVEL MANAGER Unavailable [phone] Lia Pearson APRN Primary Care Provider [phone] Reason for Visit * Reason Onset Date Comments Medications Refill 06/02/2023 Encounter Details Date Type Department Care Team (Late st Contact Info) Description 06/02/2023 Refill [facility] Endocrinology [address] [place] [phone] Shari Hsu RN Medications Refill Social History [...] documented as of this encounter Care Teams Gear Shaper Relationship Specialty Start Date End Date Lia Pearson APRN [address] [place] [phone] PCP - General Family Medicine - [facility] Medicine 09/26/21 Lisa Yan NP [address] [place] [address] [phone] Nurse Practitioner Endocrinology, Diabetes and Metabolism 03/19/21 Lisa Yan NP [address] [place] [address] [phone] Nurse Practitioner Endocrinology, Diabetes and Metabolism 06/06/21 documented as of this encounter
--- OUTSIDE RECORDS SUMMARY | 2024-02-13 18:06 | XMS_ITS | Encounter Summary ---
Author Organization [facility] Address [address] [place] [address] Care Team Providers Care Databases Software Consultant Name Role Phone Lisa Yan ELECTRICAL DESIGN TECHNICIAN Unavailable Lisa Yan ELECTRICAL DESIGN TECHNICIAN Unavailable Lia Pearson APRN Primary Care Provider [phone] Encounter Details Date Type Department Care Team (Late st Contact Info) Description 08/13/2023 9:50 EDT Phlebotomy Only [facility] - Outpatient Phlebotomy Drawing [address] [place] [address] Lab, [facility] [place] Type 2 diabetes mellitus with hyperglycemia, with long-term current use of insulin ([facility]); Other specified hypothyroidism Social History Tobacco Use [...] long-term current use of insulin ([facility]) Other specified hypothyroidism URINE CLMQQAL-UF-MOQGPIPMYD RATIO (ACR) Routine 08/13/2023 9:58 EDT Type 2 diabetes mellitus with hyperglycemia, with long-term current use of insulin ([facility]) HEMOGLOBIN A1C Routine 08/13/2023 9:58 EDT Type 2 diabetes mellitus with hyperglycemia, with long-term current use of insulin ([facility]) LIPID PROFILE (INCLUDES CHOLESTEROL, TRIGLYCERIDES, HDL, LDL) Routine 08/13/2023 9:58 EDT Type 2 diabetes mellitus with hyperglycemia, with long-term current use of insulin ([facility]) COMPREHENSIVE METABOLIC PANEL (CMP) Routine 08/13/2023 9:58 EDT Type 2 diabetes mellitus with hyperglycemia, with long-term current use of insulin ([facility]) documented in this encounter Results * (ABNORMAL) URINE TWVWLVZ-NT-YYWFAJFFKV RATIO (ACR) (08/13/2023 9:58 EDT) Albumin, Urine 74.1 See Note mg/dL 2023 17:16 T [facility] Comment: NOTE: Reference range not established Creatinine, Urine 44.5 See Note mg/dL 08/13/2023 17:16 [facility] Comment: NOTE: Reference range not established Lab Urine Albumin to Creatinine Ratio 1,665(H) <30 ??g/mg Creatinine 08/13/2023 17:16 [facility] Comment: Urine Albumin/Creatinine Ratio: Normal: <30 ug/mg Creatinine Moderately increased albuminuria: 30-300 ug/mg Creatinine Severely increased albuminuria: >300 ug/mg Creatinine Urine URINE / Unknown Urine Collect / Unknown 08/13/2023 9:58 EDT 08/13/2023 11:25 EDT Lisa M Didrikson ELECTRICAL DESIGN TECHNICIAN CHEMISTRY & BLOOD GAS ORDERABLES Performing Organization Address [facility] de Phone Number [facility] [address] [place] [address] * THYROID CASCADE (08/13/2023 9:58 EDT) [facility] [place] TSH 1.34 0.47 - 4.68 mIU/L 08/13/2023 11:45 EDT [facility] Blood VENOUS BLOOD / Unknown Venipuncture / Unknown 08/13/2023 9:58 EDT 08/13/2023 10:24 EDT Narrative [facility] - 08/13/2023 11:45 EDT NOTE: The results of this assay can be falsely lowered due to the consumption of Biotin. Lisa Yan NP CHEMISTRY & BLOOD GAS ORDERABLES Performing Organization Address [facility] Phone [facility] [address] [place] [phone] * (ABNORMAL) HEMOGLOBIN A1C (08/13/2023 9:58 EDT) [facility] [place] Hemoglobin A1c 8.0(H) <5.7 % 08/13/2023 13:12 EDT [facility] Comment: Glycemic Status References: Normal: ??<5.7% Pre-Diabetes: ??5.7% - 6.4% Diagnostic of Diabetes: ??> or = 6.5% (if confirmed) Est Avg Glucose 183 mg/dL 13:12 EDT [facility] Comment:The eAG represents t he A1c result expressed as average glucose in mg/dL. Blood VENOUS BLOOD / Unknown Venipuncture / Unknown 08/13/2023 9:58 EDT 08/13/2023 10:26 EDT Lisa Yan NP CHEMISTRY & BLOOD GAS ORDERABLES Performing Organization Address [facility] de Phone Number [facility] [address] [place] [address] * (ABNORMAL) COMPREHENSIVE METABOLIC PANEL (CMP) (08/13/2023 [...] Ratio 1.2 1.0 - 2.5 08/13/2023 11:11 [facility] Anion Gap 3(L) 5 - 14 mmol/L 08/13/2023 11:11 EDT [facility] Blood VENOUS BLOOD / Unknown Venipuncture / Unknown 08/13/2023 9:58 EDT 08/13/2023 10:24 EDT Lisa Yan NP CHEMISTRY & BLOOD GAS ORDERABLES [facility] [address] [place] [address] * (ABNORMAL) LIPID PROFILE (INCLUDES CHOLESTEROL, TRIGLYCERIDES, HDL, LDL) (08/13/2023 9:58 EDT) Cholesterol 175 <200 mg/dL 08/13/2023 11:11 T [facility] Comment:Note that therapeuti c goals will differ between patients based on cardiac risk factors and current medical therapy. HDL 43(L) >=50 mg/dl 08/13/2023 11:11 [facility] Comment:Note that therapeuti c goals will differ between patients based on cardiac risk factors and current medical therapy. LDL, Calculated 114 <160 mg/dL 11:11 [facility] Comment:Note that therapeuti c goals will differ between patients based on cardiac risk factors and current medical therapy. Triglyceride 90 <=150 mg/dL 08/13/2023 11:11 T [facility] Comment:Note that therapeuti c goals will differ between patients based on cardiac risk factors and current medical therapy. Chol/HDL Ratio 4.1 See Note 08/13/2023 11:11 [facility] Comment: NOTE: Desirable Ratio = <4.1 Patient At Risk Ratio = >5.0(Males) ?>6.0(Females) Non HDL Cholesterol 132 <160 mg/dL 08/13/2023 11:11 [facility] Comment:Note that therapeuti c goals will differ between patients based on cardiac risk factors and current medical therapy. Blood VENOUS BLOOD / Unknown Venipuncture / Unknown 08/13/2023 9:58 EDT 08/13/2023 10:24 EDT Lisa Yan ELECTRICAL DESIGN TECHNICIAN CHEMISTRY & BLOOD GAS ORDERABLES [facility] [address] [place] [address] documented in this encounter Visit Diagnoses Diagnosis Type 2 diabetes mellitus with hyperglycemia, with long-term current use of insulin ([facility]) Other specified hypothyroidism documented in this encounter Care Teams Databases Software Consultant Relationship Specialty Start Date End Date Lia Pearson APRN [address] [place] [address] PCP - General Family Medicine [facility] Medicine 09/26/21 Lisa Yan NP [address] [place] [address] [address] [place] [phone] Nurse Practitioner Endocrinology, Diabetes and Metabolism 03/19/21 Lisa Yan NP [address] [place] [phone] Nurse Practitioner Endocrinology, Diabetes and Metabolism 06/06/21 documented as of this encounter
--- OUTSIDE RECORDS SUMMARY | 2024-02-13 18:06 | XMS_ITS | Encounter Summary ---
Author Organization [facility] Address [address] [place] [address] Care Team Providers Care Spanish Instructor Name Role Phone Lisa Yan NP Unavailable Lisa Yan NP Unavailable [phone] Lia Pearson APRN Primary Care Provider [phone] Reason for Referral * Consult (Routine/Next Available) - Closed Specialty Diagnoses / Procedures Referred By [facility] Referred To Contact Diagnoses Type 2 diabetes mellitus with hyperglycemia, with long-term current use of insulin ([facility]) Neuropathy Lisa Yan NP [address] [phone] Referral ID Status Reason Start Date Expiration Date V isits Requested Visits Authorized [id number] Closed Specialty Services Required 08/13/2023 1 1 Question Answer Reason for Request: BL neuropathy, severe callus buildup on BL heals, fungal SITE [facility] Comments [facility] Reason for Visit * Reason Comments Diabetes Encounter Details Date Type Department Care Team (Late st Contact Info) Description 08/13/2023 10:30 EDT Office Visit [facility] [place] Endocrinology [address] [place] [address] Lisa Yan NP [address] [phone] Type 2 diabetes mellitus with hyperglycemia, with long-term current use of insulin ([facility]) (Primary Dx); Long-term insulin use ([facility]); 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 Haider, cardiology [facility], [facility] Zenia Worley is a 33 y.o. female who presented to the clinic for a follow-up in [facility], with a history of DM since 2004. Hx of HLD, [place] on cpap, PTSD, schizoaffective disorder, anemia, hypothyroid,hypoglycemia comas, s/p bariatri surgery (2023) Does not currently work. Lives on her own. Is working with [employer] on finding work. Sister lives in [place]. Parents have . 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 Mentions needing to taste the food while training and struggling with this. [facility] admission about 1 mo ago d/t N/V, had hypertensive crisis while admitted. Stopped lantus whileinpatient d/t hypoglycemia as well. Stopped GLP and recommended to hold these until cleared furtherby surgery d/t gastroparesis and N/V/dehydration. Reports difficulty with getting CGM supplies from [facility] medical at the moment, [...] movement. TSH 1.42 (09/2022) Levothyroxine 200 mcg [facility] DM: dad, brother Recent A1C: 6.7 (05/2023) [...] Eye exam current (within one year): UTD, [facility] Last dental exam: overdue CVD,PVD,CAD: HLD, HTN Statin: rosuvastatin 40 mg, LDL 92 (06/2022) Aspirin: no ACEI/ARB: losartan 25 mg Prior visit with trailer chief: CORNELIO Aguayo Foot care: self Comorbidities: Retinopathy: [...] content normal. CGM INTERPRETATION Type of CGM: [employer] 2 07/28-08/11/2023 Type of DM: II Diabetic [...] [facility], with a history of DM since 2004. Problem List Items Addressed This Visit Endocrine/Metabolic Type 2 diabetes mellitus with hyperglycemia, with long-term current use of insulin ([facility]) - Primary Controlled A1C 6.7 CGM data [...] AMB CONS/FOLLOW UP PODIATRY BMI 60.0-69.9, adult ([facility]) Long-term insulin use ([facility]) care home 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 Cardiac/Vasculature [...] term current use of insulin ([facility]) Controlled A1C 6.7 CGM data up/down-lows. Lower [...] long-term current use of insulin ([facility]) Neuropathy Expected: 09/13/2023 (Approximate), Expires: 08/12/2024 documented as of this encounter Visit Diagnoses Diagnosis Type 2 diabetes mellitus with hyperglycemia, with long-term current use of insulin ([facility])- Primary Long-term insulin use ([facility]) Encounter for long-term (current) use of insulin care home 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 BMI 60.0-69.9, adult ([facility]) Body Mass Index 60.0-69.9, adult Essential hypertension, [...] BEGIN LOWER DOSES OF VITMIN DAILY (USUSALLY [phone] UNIT Abstraction 07/17/2022 08/13/2023 losartan (COZAAR) 25 [...] long-term current use of insulin ([facility]) Inject 10 Units into the skin [...] 10/29/2023 added in this encounter Care Teams Spanish Instructor Relationship Specialty Start Date End Date Lia Pearson APRN [address] [place] [phone] PCP - General Family [facility] - [facility] 09/26/21 Lisa Yan NP [address] [place] [address] [phone] Nurse Practitioner Endocrinology, Diabetes and Metabolism 03/19/21 Lisa Yan NP [address] [place] [address] [phone] Nurse Practitioner Endocrinology, Diabetes and Metabolism 06/06/21 documented as of this encounter
--- OUTSIDE RECORDS SUMMARY | 2024-02-13 18:07 | XMS_ITS | Encounter Summary ---
Author Organization [facility] Address [address] [place] [address] Care Team Providers Care Automobile Tester Name Role Phone BayMaria R HOUSEKEEPING/LAUNDRY Primary Care Provider [phone] Lisa Yan TANK FARM GAUGER Unavailable Lisa Yan TANK FARM GAUGER Unavailable Reason for Visit * Reason Onset Date Comments Diabetes 06/26/2021 Encounter Details Date Type Department Care Team (Late st Contact Info) Description 06/26/2021 Telephone [facility] [place]inology [address] [place] [phone] Shari Hsu RN Diabetes Social History Tobacco [...] Encounter - Shari Hsu RN - 06/26/2021 9855 EST Trying to get freestyle [facility]- [facility] [...] filedocumented in this encounter Care Teams Automobile Tester Relationship Specialty Start Date End Date Maria R Hermosillo FNP [address] [address] PCP - General Family Medicine - Primary Care 12/03/20 09/25/21 Lisa Yan TANK FARM GAUGER [address] [place] [phone] Nurse Practitioner Endocrinology, Diabetes and Metabolism 03/19/21 Lisa Yan TANK FARM GAUGER [address] [place] [phone] Nurse Practitioner Endocrinology, Diabetes and Metabolism 06/06/21 documented as of this encounter
--- OUTSIDE RECORDS SUMMARY | 2024-02-13 18:07 | XMS_ITS | Encounter Summary ---
Author Organization [facility] Address [address] [place] [address] Care Team Providers Care Surface Grinder Tender Name Role Phone Maria R Hermosillo [facility] Primary Care Provider [phone] Encounter Details Date Type Department Care Team (Late st Contact Info) Description 02/26/2021 Abstract [facility] [place] [facility] [place] [address] [place] [address] Shari Hsu RN Social History Tobacco Use [...] daily. 06/06/2021 insulin pen needles 32G x 5/32 [...] 06/06/2021 added in this encounter Care Teams Surface Grinder Tender Relationship Specialty Start Date End Date Maria R Hermosillo FNP [facility] [address] [address] PCP - General Family Medicine - Primary Care 12/03/20 09/25/21 documented as of this encounter
--- OUTSIDE RECORDS SUMMARY | 2024-02-13 18:07 | XMS_ITS | Encounter Summary ---
Author Organization [facility] Address [address] [place] [address] Care Team Providers Care Computer Field Technician Name Role Phone Maria R Hermosillo SPECIALTY MOLDER Primary Care Provider [phone] Lisa Yan PROTECTIVE SERVICES CASE WORKER Unavailable [phone] Lisa Yan PROTECTIVE SERVICES CASE WORKER Unavailable Reason for Visit * Reason Comments Diabetes joined visit Encounter Details Date Type Department Care Team (Late st Contact Info) Description 07/18/2021 15:[address] [facility] Endocrinology [address] [place] [address] Dina Baldwin, RN [address] [place] [address] Type 2 diabetes mellitus with hyperglycemia, with long-term current use of insulin ([facility]) ([facility]) (Primary Dx) Social History Tobacco Use Types [...] hyperglycemia, with long-term current use of insulin ([facility])- Primary documented in this encounter Care Teams Computer Field Technician Relationship Specialty Start Date End Date Maria R Hermosillo FNP [address] [address] PCP - General Family Medicine - Primary Care 12/03/20 09/25/21 Lisa Yan NP [address] [place] [address] [phone] Nurse Practitioner Endocrinology, Diabetes and Metabolism 03/19/21 Lisa Yan NP [address] [place] [address] [phone] Nurse Practitioner Endocrinology, Diabetes and Metabolism 06/06/21 documented as of this encounter
--- OUTSIDE RECORDS SUMMARY | 2024-02-13 18:07 | XMS_ITS | Encounter Summary ---
Author Organization [facility] Address [address] [place] [address] Care Team Providers Care Audio Production Engineer Name Role Phone Bay, Maria R Perez GROUP THERAPIST Primary Care Provider [phone] Lisa Yan BUSINESS ANALYSIS CONSULTANT Unavailable Lisa Yan BUSINESS ANALYSIS CONSULTANT Unavailable [phone] Lia Pearson APRN Primary Care Provider [phone] Encounter Details Date Type Department Care Team (Late st Contact Info) Description 06/17/2021 Lab Requisition [facility]ology & Laboratory Medicine - [address] [id number] Outr Resulting Lab, Provider Social History Tobacco [...] 19:50 EST) Hold Hold 06/17/2021 17:01 EST [facility] Blood VENOUS BLOOD / Unknown 06/16/2021 19:50 EST 06/17/2021 15:49 EST Provider Outr Resulting Lab LAB INFO SER VICE AND SUPPORT & PHONE RESULT Performing Organization Address [facility] [facility]/ZIP Co de Phone Number [facility] [address] [place] [address] * T3 FREE (06/16/2021 19:50 EST) T3, Free 3.2 2.8 - 5.3 pg/mL 06/17/2021 16:25 EST [facility] Blood VENOUS BLOOD / Unknown 06/16/2021 19:50 EST 06/17/2021 15:48 EST Provider Outr Resulting Lab CHEMISTRY & BLOOD GAS ORDERABLES Performing Organization Address [facility]/ZIP Co de Phone Number [facility] [address] [place] [address] * (ABNORMAL) T3, TOTAL (06/16/2021 19:50 EST) T3, Total 255(H) 97 - 169 ng/dL 06/17/2021 16:42 EST [facility] Blood VENOUS BLOOD / Unknown 06/16/2021 19:50 EST 06/17/2021 15:48 EST Provider Outr Resulting Lab CHEMISTRY & BLOOD GAS ORDERABLES Performing Organization Address City/[facility]/ZIP Co de Phone Number [facility] [address] [place] [phone] documented in this encounter Visit Diagnoses Not on filedocumented in this encounter Additional Health Concerns Infection Onset Date Last Indicated Resolved Time COVID-19 12/25/2021 12/25/2021 01/14/2022 22:1 5 EDT documented as of this encounter Care Teams Audio Production Engineer Relationship Specialty Start Date End Date Maria R Hermosillo FNP [address] [address] PCP - General Family Medicine - Primary Care 12/03/20 09/25/21 Lia Pearson APRN [address] [place] [address] [phone] PCP - General Family Medicine - [facility] 09/26/21 Lisa Yan BUSINESS ANALYSIS CONSULTANT [address] [place] [address] [phone] Nurse Practitioner Endocrinology, Diabetes and Metabolism 03/19/21 Lisa Yan BUSINESS ANALYSIS CONSULTANT [address] [place] [address] [phone] Nurse Practitioner Endocrinology, Diabetes and Metabolism 06/06/21 documented as of this encounter
--- OUTSIDE RECORDS SUMMARY | 2024-02-13 18:07 | XMS_ITS | Encounter Summary ---
Author Organization [facility] Address [address] [place] [address] Care Team Providers Care Nurse Executive Name Role Phone Maria R Hermosillo Primary Care Provider [phone] Lisa Yan RENT CONTROL OFFICE MANAGER Unavailable [phone] Lisa Yan RENT CONTROL OFFICE MANAGER Unavailable [phone] Reason for Visit * Reason Onset Date Comments Medications Refill 07/21/2021 Encounter Details Date Type Department Care Team (Late st Contact Info) Description 07/21/2021 Refill [facility] Endocrinology [address] [place] [phone] Sheryl More RN Medications Refill Social History [...] on filedocumented in this encounter Care Teams Nurse Executive Relationship Specialty Start Date End Date Maria R Hermosillo FNP [facility] [address] [address] PCP - General Family Medicine - Primary Care 12/03/20 09/25/21 Lisa Yan NP [address] [place] [phone] Nurse Practitioner Endocrinology, Diabetes and Metabolism 03/19/21 Lisa Yan NP [address] [place] [phone] Nurse Practitioner Endocrinology, Diabetes and Metabolism 06/06/21 documented as of this encounter
--- OUTSIDE RECORDS SUMMARY | 2024-02-13 18:07 | XMS_ITS | Encounter Summary ---
Author Organization [facility] Address [address] [place] [address] Care Team Providers Care Hebrew Professor Name Role Phone Maria R Hermosillo CONSTRUCTION EQUIPMENT MECHANIC HELPER Primary Care Provider [phone] Lisa Yan MEDICAL CLAIMS ANALYST Unavailable Reason for Visit * Reason Comments Diabetes * Referral (Routine) - Closed Specialty Diagnoses / Procedures Referred By Della kern Referred To Contact Endocrinology Diagnoses Type 2 diabetes mellitus without complications ([facility]) Maria R Hermosillo CONSTRUCTION EQUIPMENT MECHANIC HELPER [address] [address] [facility] Endocrinology [address] [place] [address] Referral ID Status Reason Start Date Expiration Date Visits Re quested Visits Authorized [id number] Closed 1 1 Encounter Details Date Type Department Care Team (Latest Contact Info) Description 03/19/2021 9:30 EDT Office Visit [facility] Endocrinology [address] [place] [address] Lisa Yan, MEDICAL CLAIMS ANALYST [address] [facility] [address] [place] [phone] Type 2 diabetes mellitus with hyperglycemia, without long-term current use of insulin ([facility]) ([facility]) (Primary Dx); Mixed hyperlipidemia; Morbid obesity with body mass index (BMI) of 60.0 to 69.9 in adult ([facility]) (HCC) ([facility]); Other specified hypothyroidism Social History Tobacco [...] meals and bedtime. Given information to call [employer] to start Toshia 2 CGM. Call in 2 weeks with glucose readings and will increase metformin if tolerating. Follow-up in 6 weeks for review. See TMO Baldwin for footcare. Make eye and dental visit. Call [facility] for dental if needed. Obtain fasting labs [...] the clinic for an initial consult in [facility], with a history of DM for ?15 yrs. Hx of HLD, RICHMOND on cpap, PTSD, schizoaffective disprder, anemia, hypothyroid. When initially diagnosed at 16yo, lived in a alf at that time, was getting her BG's checked.Did not see a provider until she was 20yo and started metformin at that time. Did have GI concerns with this and switched to XR version. Did not take medication early 20's up until her move to [place]. Started back on insulin, lantus and humalog, in 2018 prior to her move to [place]. [place], no longer at this job. Was started on glipizide in October/November with PCP. Does not currently work. Lives in [facility] in [place], lives on her own. Has applied for housing in [place]. Is working with [employer] on finding work. Sister lives in [place]. Parents have . Notes feeling very tired today, has trouble falling and staying asleep. Random BG in clinic 216. Had not eaten yet today. Takes glipizide along with her novolog. Will take her novolog regardless of eating, takes this at first bite. She is interested in bariatric surgery. TSH ? Levothyroxine 200 mcg [facility] DM: dad, brother Recent A1C: >14 (01/2021) [...] Aspirin: no ACEI/ARB: no Prior visit with wireless store manager: CORNELIO Aguayo Foot care: sef Comorbidities: [...] the clinic for an initial consult in [facility], with a history of DM for ?15 yrs. Problem List Items Addressed This Visit Endocrine/Metabolic Type 2 diabetes mellitus, without long-term current use of insulin ([facility]) - Primary Uncontrolled A1C >14 Restart metformin XR 500 mg AM with food, call in 2 weeks and will increase if tolerating well. STOP glipizide. Continue lantus 20 units twice daily and novolog 5 units three times daily with food. Check glucose fasting, before meals and bedtime. Given information to call [employer] to start Toshia 2 CGM. Call in 2 weeks with glucose readings and will increase metformin if tolerating. Follow-up in 6 weeks for review. Deferred MALB today. Labs sent to [facility]. Would like to start GLP if able [...] LDL) VITAMIN B12 THYROID CASCADE MAGNESIUM URINE [id number] RATIO (ACR) Other specified hypothyroidism Labs when able. Morbid obesity with body mass index (BMI) of 60.0 to 69.9 in adult ([facility]) ([facility]) Long discussion today on bariatric referral, [...] 1035 EDT Associated Problem(s): BMI 60.0-69.9, adult ([facility]) Long discussion today on bariatric [...] with long- term current use of insulin ([facility]) Uncontrolled A1C >14 Restart metformin XR 500 mg AM with food, call in 2 weeks and will increase if tolerating well. STOP glipizide. Continue lantus 20 units twice daily and novolog 5 units three times daily with food. Check glucose fasting, before meals and bedtime. Given information to call [employer] to start Toshia 2 CGM. Call in 2 weeks with glucose readings and will increase metformin if tolerating. Follow-up in 6 weeks for review. Deferred MALB today. Labs sent to [facility]. Would like to start GLP if able [...] hyperglycemia, without long-term current use of insulin ([facility])- Primary Mixed hyperlipidemia Morbid obesity with body mass index (BMI) of 60.0 to 69.9 in adult ([facility]) Other specified hypothyroidism documented in [...] 08/11/2021 added in this encounter Care Teams Hebrew Professor Relationship Specialty Start Date End Date Maria R Hermosillo FNP [address] [address] PCP - General Family Medicine - Primary Care 12/03/20 09/25/21 Lisa Yan MEDICAL CLAIMS ANALYST [address] [place] [phone] Nurse Practitioner Endocrinology, Diabetes and Metabolism 03/19/21 documented as of this encounter
--- OUTSIDE RECORDS SUMMARY | 2024-02-13 18:07 | XMS_ITS | Encounter Summary ---
Author Organization [facility] Address [address] [place] [address] Care Team Providers Care Drug Enforcement Agent Name Role Phone BayMaria R STUDENT AFFAIRS VICE PRESIDENT Primary Care Provider [phone] Lisa Yan RAILCAR SWITCHER Unavailable Lisa Yan RAILCAR SWITCHER Unavailable Reason for Visit * Reason Comments Diabetes Encounter Details Date Type Department Care Team (Latest Contact Info) Description 06/06/2021 16:15 EST Office Visit [facility] Endocrinology [address] [place] [address] Lisa Yan, RAILCAR SWITCHER [address] [facility] [address] [place] [phone] Type 2 diabetes mellitus with hyperglycemia, with long-term current use of insulin ([facility]) ([facility]) (Primary Dx); Type 2 diabetes mellitus with hyperglycemia, without long-term current use of insulin ([facility]) (HCC); Morbid obesity with body mass index (BMI) of 60.0 to 69.9 in adult ([facility]) ([facility]) ([facility]); Other specified hypothyroidism; Mixed hyperlipidemia Social [...] clinic for a follow-up in [facility], with a history of DM for ?15 yrs. Hx of HLD, RICH[place]D on cpap, PTSD, schizoaffective disprder, anemia, hypothyroid. Does not currently work. Lives in [place] in [place], lives on her own. Has applied for housing in [place]. Is working with [employer] on finding work. Sister lives in [place]. Parents have . Has foot care with TOM Baldwin today. Has moved to [facility], thought she was going to have a medical team when she moved set up, shehad to find these on her own which was difficult. Is waiting for RAILCAR SWITCHER visit with [facility] Internal med. She has set up [...] surgery. TSH 2.62 (05/2021) Levothyroxine 200 mcg [facility] DM: dad, brother Recent A1C: >14 (05/2021 [...] Aspirin: no ACEI/ARB: no Prior visit with regrinder operator: CORNELIO Aguayo Foot care: sef Comorbidities: Retinopathy: [...] the clinic for an initial consult in [facility], with a history of DM for ?15 yrs. Problem List Items Addressed This Visit Endocrine/Metabolic Type 2 diabetes mellitus, without long-term current use of insulin ([facility]) Uncontrolled A1C 14 Increase lantus 25 [...] (BMI) of 60.0 to 69.9 in adult ([facility]) ([facility]) Cardiac/Vasculature Mixed hyperlipidemia Labs when able. Other Visit Diagnoses Type 2 diabetes mellitus with hyperglycemia, with long-term current use of insulin ([facility]) ([facility]) - Primary Relevant Medications insulin glargine (LANTUS SOLOSTAR U-100 INSULIN) 100 unit/mL (3 mL) injection pen NOVOLOG FLEXPEN U-100 INSULIN 100 unit/mL (3 mL) injectable pen metFORMIN (GLUCOPHAGE-XR) 500 mg ER tablet Other Relevant Orders POCT GLUCOSE, MANUAL ENTRY (Completed) POCT HEMOGLOBIN A1C (Completed) URINE [id number] RATIO (ACR) Patient Goals: A1C <7% Exercise: [...] with long- term current use of insulin ([facility]) Uncontrolled A1C 14 Increase lantus 25 units [...] use of insulin ([facility]) ([facility]) POCT HEMOGLOBIN A1C Routine 06/06/2021 Type 2 diabetes mellitus with hyperglycemia, with long-term current use of insulin ([facility]) ([facility]) documented in this encounter Results * POCT HEMOGLOBIN A1C (06/06/2021) Hemoglobin A1c, POC >14.0 5.7 % [facility] POINT OF CARE Blood CAPILLARY BLOOD / Unknown 06/06/2021 Lisa Yan RAILCAR SWITCHER POINT OF CARE SARAY T ORDERABLES [facility] POINT OF CARE * POCT GLUCOSE, MANUAL ENTRY (06/06/2021) Glucose, POC 73 70 - 100 mg/dL [facility] POINT OF CARE HN LAB POC COMMENT MANUAL (GLUCOSE) [facility] POINT OF grinding room inspector ID [facility] Blood CAPILLARY BLOOD / Unknown 06/06/2021 Lisa Yan NP POINT OF CARE SARAY T ORDERABLES Performing Organization Address City/[facility] Co de Phone Number [facility] POINT OF CARE documented in this encounter Visit Diagnoses Diagnosis Type 2 diabetes mellitus with hyperglycemia, with long-term current use of insulin ([facility])- Primary Type 2 diabetes mellitus with hyperglycemia, without long-term current use of insulin ([facility]) Morbid obesity with body mass index (BMI) of 60.0 to 69.9 in adult ([facility]) Other specified hypothyroidism Mixed hyperlipidemia documented in [...] 06/06/2021 added in this encounter Care Teams Drug Enforcement Agent Relationship Specialty Start Date End Date [place] [address] PCP - General Family Medicine - Primary Care 12/03/20 09/25/21 Lisa Yan NP [address] [place] [phone] Nurse Practitioner Endocrinology, Diabetes and Metabolism 03/19/21 Lisa Yan NP [address] [place] [phone] Nurse Practitioner Endocrinology, Diabetes and Metabolism 06/06/21 documented as of this encounter
--- OUTSIDE RECORDS SUMMARY | 2024-02-13 18:07 | XMS_ITS | Encounter Summary ---
Author Organization [facility] Address [address] [place] [address] Care Team Providers Care Java Core Developer Name Role Phone Lisa Yan GEAR INSPECTOR Unavailable [phone] Lisa Yan GEAR INSPECTOR Unavailable Lia Pearson APRN Primary Care Provider [phone] Reason for Visit * Reason Comments Diabetes Encounter Details Date Type Department Care Team (Late st Contact Info) Description 12/31/2021 14:45 EDT Office Visit [facility] Endocrinology [address] [place] [address] Lisa Yan GEAR INSPECTOR 130 [facility] [address] [place] [phone] Type 2 diabetes mellitus with hyperglycemia, with long-term current use of insulin ([facility]) ([facility]) (Primary Dx); Other specified hypothyroidism; Long-term insulin use ([facility]) ([facility]); longterm 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; BMI 60.0-69.9, adult ([facility]) ([facility]) ([facility]); Mixed hyperlipidemia; Essential hypertension, benign Social [...] Notes * Shari Hsu, RN - 12/31/2021 5069 EDT Medicare Needs eye-[facility] Lab Results Component Value Date UABCR 281 (H) 11/13/2021 HGBA1C 6.2 (A) 11/12/2021 Glucose-68 (whitley pt own) * Lisa Yan NP - 12/31/2021 5939 EDT Reason for Visit: DM f/up PCP: BERNIE Pearson OTHER PROVIDERS: DIRECTOR OF CRITICAL CARE Dr. Haider, cardiology Zeniajurgen Worley is a 31 y.o. female who presented to the clinic for a follow-up in [facility], with a history of DM for ?15 yrs. Hx of HLD, RICHMOND on cpap, PTSD, schizoaffective disorder, anemia, hypothyroid, hypoglycemia comas. Does not currently work. Lives on her own. Is working with [employer] on finding work. Sister lives in [place]. Parents have . 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 Working with weight and wellness at [facility], feels this is going well. Continues to feel strongly about going forward with bariatric surgery. Random BG in clinic 68. Given juice in clinic. [place] she overdid it with her activity earlier [...] Problems Eye exam current (within one year): [facility], [facility], [facility] Last dental exam: overdue CVD,PVD,CAD: HLD, HTN Statin: simvastatin 40 mg, LDL 135 (08/2021) Aspirin: no ACEI/ARB: losartan 25 mg Prior visit with mortgage counselor: CORNELIO Aguayo Foot care: self Comorbidities: Retinopathy: [...] to the clinic for a follow-up in [facility], with a history of DM for ?15 yrs. Problem List Items Addressed This Visit Endocrine/Metabolic Type 2 diabetes mellitus with hyperglycemia, with long-term current use of insulin ([facility]) ([facility]) - Primary Controlled A1C 6.2 BGs getting [...] (BMP) Other specified hypothyroidism BMI 60.0-69.9, adult ([facility]) ([facility]) Long-term insulin use ([facility]) ([facility]) longterm 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 Cardiac/Vasculature [...] with long- term current use of insulin ([facility]) Controlled A1C 6.2 BGs getting better with [...] hyperglycemia, with long-term current use of insulin ([facility])- Primary Other specified hypothyroidism Long-term insulin use ([facility]) Encounter for long-term (current) use of insulin terminal superintendent 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 BMI 60.0-69.9, adult ([facility]) Body Mass Index 60.0-69.9, adult Mixed hyperlipidemia [...] documented as of this encounter Care Teams Java Core Developer Relationship Specialty Start Date End Date Lia Pearson APRN [address] [place] [address] PCP - General Family Medicine - [facility] Medicine 09/26/21 Lisa Yan NP [address] [place] [phone] Nurse Practitioner Endocrinology, Diabetes and Metabolism 03/19/21 Lisa Yan NP [address] [place] [phone] Nurse Practitioner Endocrinology, Diabetes and Metabolism 06/06/21 documented as of this encounter
--- OUTSIDE RECORDS SUMMARY | 2024-02-13 18:07 | XMS_ITS | Encounter Summary ---
Author Organization [facility] Address [address] [place] [address] Care Team Providers Care Mechanical Door Repairer Name Role Phone BayMaria R SHREDDING FLOOR EQUIPMENT OPERATOR Primary Care Provider [phone] Lisa Yan SEAM FINISHER Unavailable [phone] Lisa aYn SEAM FINISHER Unavailable Reason for Visit * Reason Onset Date Comments Medications Refill 06/24/2021 Encounter Details Date Type Department Care Team (Late st Contact Info) Description 06/24/2021 Refill [facility] Endocrinology [address] [place] [address] Shari Hsu RN Medications Refill Social History [...] documented as of this encounter Care Teams Mechanical Door Repairer Relationship Specialty Start Date End Date Maria R Hermosillo FNP [facility] [address] [address] PCP - General Family Medicine - Primary Care 12/03/20 09/25/21 Lisa Yan NP [address] [place] [phone] Nurse Practitioner Endocrinology, Diabetes and Metabolism 03/19/21 Lisa Yan NP [address] [place] [address] [phone] Nurse Practitioner Endocrinology, Diabetes and Metabolism 06/06/21 documented as of this encounter
--- OUTSIDE RECORDS SUMMARY | 2024-02-13 18:07 | XMS_ITS | Encounter Summary ---
Author Organization [facility] Address [address] [place] [address] Care Team Providers Care Road Hogger Operator Name Role Phone Maria R Hermosillo SLUDGE FILTRATION ATTENDANT Primary Care Provider [phone] Lisa Yan EYELET ROW MARKER Unavailable Lisa Yan EYELET ROW MARKER Unavailable [phone] Reason for Visit * Reason Onset Date Comments Medications Refill 06/11/2021 Encounter Details Date Type Department Care Team (Late st Contact Info) Description 06/11/2021 Refill [facility] [place] Endocrinology [address] [place] [address] Sehryl More RN Medications Refill Social History Tobacco [...] EST Prescription sent to Alicia Govea in [facility] per Lisa Yan's orders. documented in this encounter Plan of Treatment Not on file documented as of this encounter Visit Diagnoses Not on filedocumented in this encounter Discontinued Medications Medication Sig Discontinue Reason Start Date End Da te gabapentin (NEURONTIN) 300 mg capsule Take 300 mg by mouth 3 times daily. Reorder 06/11/2021 documented as of this encounter Care Teams Road Hogger Operator Relationship Specialty Start Date End Date Maria R Hermosillo FNP [facility] [address] [address] PCP - General Family Medicine - Primary Care 12/03/20 09/25/21 Lisa Yan NP [address] [place] [phone] Nurse Practitioner Endocrinology, Diabetes and Metabolism 03/19/21 Lisa Yan NP [address] [place] [phone] Nurse Practitioner Endocrinology, Diabetes and Metabolism 06/06/21 documented as of this encounter
--- OUTSIDE RECORDS SUMMARY | 2024-02-13 18:07 | XMS_ITS | Encounter Summary ---
Author Organization [facility] Address [address] [place] [address] Care Team Providers Care Substance Abuse Technician Name Role Phone Maria R Hermosillo FORKLIFT DRIVER Primary Care Provider [phone] Lisa Yan TITLE PROCESSOR Unavailable [phone] Lisa Yan TITLE PROCESSOR Unavailable [phone] Reason for Visit * Reason Comments Diabetes Encounter Details Date Type Department Care Team (Late st Contact Info) Description 07/18/2021 16:00 EST Office Visit [facility] Endocrinology [address] [place] [address] Lisa Yan TITLE PROCESSOR [address] [facility] [address] [place] [phone] Type 2 diabetes mellitus with hyperglycemia, with long-term current use of insulin ([facility]) ([facility]) (Primary Dx); Mixed hyperlipidemia; Other specified hypothyroidism; Morbid obesity with body mass index (BMI) of 60.0 to 69.9 in adult ([facility]) ([facility]) ([facility]) Social History Tobacco Use Types Packs/Day [...] to the clinic for a follow-up in [facility], with a history of DM for ?15 yrs. Hx of HLD, [place] on cpap, PTSD, schizoaffective disprder, anemia, hypothyroid, hypoglycemia comas. Does not currently work. [facility] [place], lives on her own. Has applied for housing in [place]. Is working with [employer] on finding work. Sister lives in [place]. Parents have . Shared visit with TOM Baldwin today. Has moved to [facility], thought she was going to have a medical team when she moved set up, shehad to find these on her own which was difficult. Is waiting for TITLE PROCESSOR visit with [facility] med. She has set up a new psychiatrist. They have reduced her seroquel in half, feeling much better, having more energy. Her sleep is getting better. Notes [facility] medical still needs paperwork regarding the CGM. [...] visits. TSH 2.62 (05/2021) Levothyroxine 200 mcg [facility] DM: dad, brother Recent A1C: >14 (05/2021) [...] Aspirin: no ACEI/ARB: no Prior visit with business solutions consultant: CORNELIO Aguayo Foot care: self Comorbidities: Retinopathy: [...] to the clinic for a follow-up in [facility], with a history of DM for ?15 yrs. Problem List Items Addressed This Visit Endocrine/Metabolic Type 2 diabetes mellitus with hyperglycemia, with long-term current use of insulin ([facility]) ([facility]) - Primary Uncontrolled A1C 14 No BG's [...] (BMI) of 60.0 to 69.9 in adult ([facility]) ([facility]) Congratulated on weight loss and encouraged [...] 1632 EST Associated Problem(s): BMI 60.0-69.9, adult ([facility]) Congratulated on weight loss and encouraged [...] with long- term current use of insulin ([facility]) Uncontrolled A1C 14 No BG's today, [...] current use of insulin ([facility])- Primary Mixed hyperlipidemia Other specified hypothyroidism Morbid obesity with body mass index (BMI) of 60.0 to 69.9 in adult ([facility]) documented in this encounter Discontinued Medications Medication Sig Discontinue Reason Start Date End Da te simvastatin (ZOCOR) 40 mg tablet Take 1 Tablet by mouth daily. Reorder 06/09/2021 07/18/2021 documented as of this encounter Care Teams Substance Abuse Technician Relationship Specialty Start Date End Date Maria R Hermosillo FNP [address] [address] PCP - General Family Medicine - Primary Care 12/03/20 09/25/21 Lisa Yan NP [address] [place] [phone] Nurse Practitioner Endocrinology, Diabetes and Metabolism 03/19/21 Lisa Yan NP [address] [place] [phone] Nurse Practitioner Endocrinology, Diabetes and Metabolism 06/06/21 documented as of this encounter
--- OUTSIDE RECORDS SUMMARY | 2024-02-13 18:07 | XMS_ITS | Encounter Summary ---
Author Organization [facility] Address [address] [place] [address] Care Team Providers Care Rn Acute Dialysis Name Role Phone Maria R Hermosillo WORKSITE WELLNESS PRACTITIONER Primary Care Provider [phone] Lisa Yan BAD CREDIT COLLECTOR Unavailable [phone] Reason for Visit * Reason Onset Date Comments Appointment Related 04/29/2021 Encounter Details Date Type Department Care Team (Late st Contact Info) Description 04/29/2021 Telephone [facility] Ophthalmology - [place] [address] [place], [place] [phone] Ten Mahajan MD [address] [place] [phone] Appointment Related Social History Tobacco Use Types [...] on filedocumented in this encounter Care Teams Rn Acute Dialysis Relationship Specialty Start Date End Date Maria R Hermosillo FNP [address] [address] PCP - General Family Medicine - Primary Care 12/03/20 09/25/21 Lisa Yan BAD CREDIT COLLECTOR [address] [place] [phone] Nurse Practitioner Endocrinology, Diabetes and Metabolism 03/19/21 documented as of this encounter
--- OUTSIDE RECORDS SUMMARY | 2024-02-13 18:07 | XMS_ITS | Encounter Summary ---
Author Organization [facility] Address [address] [place] [address] Care Team Providers Care Jet Mechanic Name Role Phone Bay, Maria R POSEY Primary Care Provider [phone] Lisa Yan WINCHMAN/CRANE OPERATOR Unavailable [phone] Lisa Yan WINCHMAN/CRANE OPERATOR Unavailable Lia Pearson APRN Primary Care Provider [phone] Encounter Details Date Type Department Care Team (Late st Contact Info) Description 05/21/2021 Lab Requisition [facility] Pathology & Laboratory Medicine - [place] [facility] [address] [place], [place] [phone] Outr Resulting Lab, Provider Social History Tobacco [...] 97 - 169 ng/dL 05/21/2021 22:09 EST [facility] Blood VENOUS BLOOD / Unknown 05/20/2021 16:52 EST 05/21/2021 21:22 EST Provider Outr Resulting Lab CHEMISTRY & BLOOD GAS ORDERABLES [facility] [address] [place] [address] documented in this encounter Visit Diagnoses Not on filedocumented in this encounter Additional Health Concerns Infection Onset Date Last Indicated Resolved Time COVID-19 12/25/2021 12/25/2021 01/14/2022 22:1 5 EDT documented as of this encounter Care Teams Jet Mechanic Relationship Specialty Start Date End Date Maria R Hermosillo FNP [address] [address] PCP - General Family Medicine - Primary Care 12/03/20 09/25/21 Lia Pearson APRN [address] [place] [address] PCP - General Family Medicine - [facility] 09/26/21 Lisa Yan WINCHMAN/CRANE OPERATOR [address] [place] [phone] Nurse Practitioner Endocrinology, Diabetes and Metabolism 03/19/21 Lisa Yna WINCHMAN/CRANE OPERATOR [address] [place] [phone] Nurse Practitioner Endocrinology, Diabetes and Metabolism 06/06/21 documented as of this encounter
--- OUTSIDE RECORDS SUMMARY | 2024-02-13 18:07 | XMS_ITS | Encounter Summary ---
Author Organization [facility] Address [address] [place] [address] Care Team Providers Care Line Ordering Clinician Name Role Phone Lisa Yan PACKAGING SALES Unavailable [phone] Lisa Yan PACKAGING SALES Unavailable Lia Pearson APRN Primary Care Provider [phone] Encounter Details Date Type Department Care Team (Late st Contact Info) Description 12/24/2021 Orders Only [facility] Endocrinology [address] [place] [address] Shari sHu RN Social History Tobacco Use Types Packs/Day [...] documented as of this encounter Care Teams Line Ordering Clinician Relationship Specialty Start Date End Date Lia Pearson APRN [address] [place] [address] PCP - General Family Medicine - [facility] Medicine 09/26/21 Lisa Yan NP [address] [place] [phone] Nurse Practitioner Endocrinology, Diabetes and Metabolism 03/19/21 Lisa Yan NP [address] [place] [phone] Nurse Practitioner Endocrinology, Diabetes and Metabolism 06/06/21 documented as of this encounter
--- OUTSIDE RECORDS SUMMARY | 2024-02-13 18:07 | XMS_ITS | Encounter Summary ---
Author Organization [facility] Address [address] [place] [address] Care Team Providers Care Dispatcher Ship Pilot Name Role Phone Maria R Hermosillo PREDICTIVE MAINTENANCE TECHNICIAN Primary Care Provider [phone] Lisa Yan AERIAL PHOTOGRAMMETRIST Unavailable [phone] Lisa Yan AERIAL PHOTOGRAMMETRIST Unavailable [phone] Reason for Visit * Reason Onset Date Comments Medications Refill 06/09/2021 Encounter Details Date Type Department Care Team (Late st Contact Info) Description 06/09/[address] [facility] Endocrinology [address] [place] [address] Sheryl More RN Medications Refill Social History [...] documented as of this encounter Care Teams Dispatcher Ship Pilot Relationship Specialty Start Date End Date Maria R Hermosillo FNP [address] [address] PCP - General Family Medicine - Primary Care 12/03/20 09/25/21 Lisa Yan AERIAL PHOTOGRAMMETRIST [address] [place] [phone] Nurse Practitioner Endocrinology, Diabetes and Metabolism 03/19/21 Lisa Yan NP [address] [place] [phone] Nurse Practitioner Endocrinology, Diabetes and Metabolism 06/06/21 documented as of this encounter
--- OUTSIDE RECORDS SUMMARY | 2024-02-13 18:07 | XMS_ITS | Encounter Summary ---
Author Organization [facility] Address [address] [place] [address] Care Team Providers Care Medical Transcription Supervisor Name Role Phone Lisa Yan TILE MOLDER Unavailable [phone] Lisa Yan TILE MOLDER Unavailable [phone] Lia Pearson APRN Primary Care Provider [phone] Reason for Visit * Reason Onset Date Comments Medications Refill 09/29/2021 Encounter Details Date Type Department Care Team (Late st Contact Info) Description 09/29/2021 Refill [facility] Endocrinology [address] [place] [phone] Shari Hsu RN Medications Refill Social History [...] on filedocumented in this encounter Care Teams Medical Transcription Supervisor Relationship Specialty Start Date End Date Lia Pearson APRN [address] [place] [address] PCP - General [facility] Medicine 09/26/21 Lisa Yan NP [address] [place] [phone] Nurse Practitioner Endocrinology, Diabetes and Metabolism 03/19/21 Lisa Yan NP [address] [place] [phone] Nurse Practitioner Endocrinology, Diabetes and Metabolism 06/06/21 documented as of this encounter
--- OUTSIDE RECORDS SUMMARY | 2024-02-13 18:07 | XMS_ITS | Encounter Summary ---
Author Organization [facility] Address [address] [place] [address] Care Team Providers Care Reexaminer Name Role Phone Lisa Yan COLLECTION SYSTEMS TECHNICIAN Unavailable Lisa Yan COLLECTION SYSTEMS TECHNICIAN Unavailable Lia Pearson APRN Primary Care Provider [phone] Reason for Visit * Reason Onset Date Comments Coordination Of Care 12/30/2021 Encounter Details Date Type Department Care Team (Late st Contact Info) Description 12/30/2021 Telephone [facility] Endocrinology [address] [place] [address] Lisa Yan COLLECTION SYSTEMS TECHNICIAN [address] [facility] [address] [place] [phone] Coordination Of Care Social History [...] documented as of this encounter Care Teams Reexaminer Relationship Specialty Start Date End Date Lia Pearson APRN [address] [place] [address] PCP - General Family Medicine - [facility] Medicine 09/26/21 Lisa Yan NP [address] [place] [phone] Nurse Practitioner Endocrinology, Diabetes and Metabolism 03/19/21 Lisa Yan NP [address] [place] [phone] Nurse Practitioner Endocrinology, Diabetes and Metabolism 06/06/21 documented as of this encounter
--- OUTSIDE RECORDS SUMMARY | 2024-02-13 18:07 | XMS_ITS | Encounter Summary ---
Author Organization [facility] Address [address] [place] [address] Care Team Providers Care Broom Worker Name Role Phone Lisa Yan DAIRY AND FOOD LABORATORY ASSISTANT Unavailable Lisa Yan DAIRY AND FOOD LABORATORY ASSISTANT Unavailable Lia Pearson APRN Primary Care Provider [phone] Reason for Visit * Reason Comments Diabetes dfc Encounter Details Date Type Department Care Team (Late st Contact Info) Description 11/12/2021 15:00 EDT Nurse Only [facility] [place] [address] [place] [address] Dina Baldwin, RN [address] [place] [address] Type 2 diabetes mellitus with hyperglycemia, with long-term current use of insulin ([facility]) (HCC) (Primary Dx); BMI 60.0-69.9, adult (HCC-CMS) [...] heel calluses required today. Smoothed with mechanical drier and grinder tender with sterile tip 2. Onychauxis All nails were trimmed using sterile nail nippers. ?? Procedure Codes [id number] Trim nails ?? Follow Up 6 months ABN signed today: 11/12/2021 documented in this encounter Plan of Treatment Not on file documented as of this encounter Visit Diagnoses Diagnosis Type 2 diabetes mellitus with hyperglycemia, with long-term current use of insulin ([facility] Primary BMI 60.0-69.9, adult ([facility]) Body Mass Index 60.0-69.9, adult Neuropathy Mononeuritis of unspecified site documented in this encounter Care Teams Broom Worker Relationship Specialty Start Date End Date Lia Pearson APRN [address] [place] [address] PCP - General Family Medicine - [facility] Medicine 09/26/21 Lisa Yan NP [address] [place] [phone] Nurse Practitioner Endocrinology, Diabetes and Metabolism 03/19/21 Lisa Yan NP [address] [place] [phone] Nurse Practitioner Endocrinology, Diabetes and Metabolism 06/06/21 documented as of this encounter
--- OUTSIDE RECORDS SUMMARY | 2024-02-13 18:07 | XMS_ITS | Encounter Summary ---
Author Organization [facility] Address [address] [place] [address] Care Team Providers Care Crap Game Box Person Name Role Phone Lisa Yan PATROL GUARD Unavailable Lisa Yan PATROL GUARD Unavailable Lia Pearson APRN Primary Care Provider [phone] Reason for Visit * Reason Comments Diabetes Encounter Details Date Type Department Care Team (Late st Contact Info) Description 11/12/2021 16:00 EDT Office Visit [facility] [place] [address] [place] [address] Lisa Yan PATROL GUARD 130 [facility] [address] [place] [phone] Type 2 diabetes mellitus with hyperglycemia, with long-term current use of insulin ([facility]) (HCC) (Primary Dx); Long-term insulin use ([facility]) (HCC); correction 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; Other [...] DM f/up PCP: BERNIE Pearson OTHER PROVIDERS: NURSE INSTRUCTOR Dr. Haider, cardiology Zenia Worley is a 31 y.o. female who presented to the clinic for a follow-up in [facility], with a history of DM for ?15 yrs. Hx of HLD, [place] on cpap, PTSD, schizoaffective disprder, anemia, hypothyroid, hypoglycemia comas. Does not currently work. Lives on her own. Is working with [employer] on finding work. Sister lives in [place]. Parents have . Plans to start school [...] yet. TSH 2.98 (08/2021) Levothyroxine 200 mcg [facility] DM: dad, brother Recent A1C: 6.2 (10/2021) [...] Problems Eye exam current (within one year): CTD, [facility] Last dental exam: overdue CVD,PVD,CAD: HLD, HTN Statin: simvastatin 40 mg, LDL 135 (08/2021) Aspirin: no ACEI/ARB: losartan 25 mg Prior visit with digital printer operator: CORNELIO Aguayo Foot care: self Comorbidities: [...] to the clinic for a follow-up in [facility], with a history of DM for ?15 yrs. Problem List Items Addressed This Visit Endocrine/Metabolic Type 2 diabetes mellitus with hyperglycemia, with long-term current use of insulin ([facility]) ([facility]) - Primary Controlled A1C 6.2 Congratulated on [...] mL) injectable pen Other Relevant Orders URINE ORFUOTE-DI-IYIHHHTHSI RATIO (ACR) POCT GLUCOSE, MANUAL ENTRY (Completed) POCT HEMOGLOBIN A1C (Completed) Other specified hypothyroidism Long-term insulin use ([facility]) ([facility]) computer terminal operator current use of oral [...] with long- term current use of insulin ([facility]) Controlled A1C 6.2 Congratulated on successful changes! [...] Name Priority Date/Time Associated Diagnosis Comments URINE QRRTQHG-XD-ATKUDJQYZ E RATIO (ACR) Routine 11/13/2021 10:12 EDT Type 2 diabetes mellitus with hyperglycemia, with long-term current use of insulin ([facility]) ([facility]) POCT GLUCOSE, MANUAL ENTRY Routine 11/12/2021 Type 2 diabetes mellitus with hyperglycemia, with long-term current use of insulin ([facility]) ([facility]) POCT HEMOGLOBIN A1C Routine 11/12/2021 Type 2 diabetes mellitus with hyperglycemia, with long-term current use of insulin ([facility]) ([facility]) documented in this encounter Results * (ABNORMAL) URINE SJGANAR-SM-ULYWULJOUR RATIO (ACR) (11/13/2021 10:12 EDT) Albumin, Urine 32.1 See Note mg/dL 2021 18:[address] [facility] Comment: NOTE: Reference range not established Creatinine, Urine 114.3 See Note mg/dL 11/13/2021 18:[address] [facility] Comment: NOTE: Reference range not established Lab Urine Albumin to Creatinine Ratio 281(H) <30 ??g/mg Creatinine 11/13/2021 18:[address] [facility] Comment: Urine Albumin/Creatinine Ratio: Normal: <30 ug/mg Creatinine Moderately increased albuminuria: 30-300 ug/mg Creatinine Severley increased albuminuria: >300 ug/mg Creatinine Urine URINE / Unknown Urine Collect / Unknown 11/13/2021 10:12 EDT 11/13/2021 10:12 EDT Lisa Yan NP CHEMISTRY & BLOOD GAS ORDERABLES Performing Organization Address City/[facility]/ZIP Co de Phone Number [facility] [address] [place] [phone] * (ABNORMAL) POCT HEMOGLOBIN A1C (11/12/2021) Hemoglobin A1c, POC 6.2(A) 5.7 % [facility] POINT OF CARE Blood CAPILLARY BLOOD / Unknown 11/12/2021 Lisa Yan NP POINT OF CARE SARAY T ORDERABLES Performing Organization Address City/[facility] Co de Phone Number [facility] POINT OF CARE * (ABNORMAL) POCT GLUCOSE, MANUAL ENTRY (11/12/2021) Glucose, POC 50(A) 70 - 100 mg/dL [facility] POINT OF CARE HN LAB POC COMMENT MANUAL (GLUCOSE) [facility] POINT OF plant protection officer ID UVN POIN T OF CARE Blood CAPILLARY BLOOD / Unknown 11/12/2021 Lisa Yan NP POINT OF CARE SARAY T ORDERABLES Performing Organization Address [facility] de Phone Number [facility] POINT OF CARE documented in this encounter Visit Diagnoses Diagnosis Type 2 diabetes mellitus with hyperglycemia, with long-term current use of insulin ([facility])- Primary Long-term insulin use ([facility]) Encounter for long-term (current) use of insulin correction 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 Other [...] 11/12/2021 added in this encounter Care Teams Crap Game Box Person Relationship Specialty Start Date End Date Lia Pearson APRN [address] [place] [address] PCP - General Family Medicine - [facility] Medicine 09/26/21 Lisa Yan NP [address] [place] [phone] Nurse Practitioner Endocrinology, Diabetes and Metabolism 03/19/21 Lisa Yan NP [address] [place] [phone] Nurse Practitioner Endocrinology, Diabetes and Metabolism 06/06/21 documented as of this encounter
--- OUTSIDE RECORDS SUMMARY | 2024-02-13 18:07 | XMS_ITS | Encounter Summary ---
Author Organization [facility] Address [address] [place] [address] Care Team Providers Care Safety Net Maker Name Role Phone Lisa Yan GENERATOR TECHNICIAN Unavailable [phone] Lisa Yan GENERATOR TECHNICIAN Unavailable [phone] Lia Pearson APRN Primary Care Provider [phone] Reason for Visit * Reason Onset Date Comments Medications Refill 12/24/2021 Encounter Details Date Type Department Care Team (Late st Contact Info) Description 12/24/2021 Refill [facility] Endocrinology [address] [place] [phone] Shari Hsu RN Medications Refill Social History [...] on filedocumented in this encounter Care Teams Safety Net Maker Relationship Specialty Start Date End Date Lia Pearson APRN [address] [place] [address] PCP - General [facility] Medicine 09/26/21 Lisa Yan NP [address] [place] [phone] Nurse Practitioner Endocrinology, Diabetes and Metabolism 03/19/21 Lisa Yan NP [address] [place] [phone] Nurse Practitioner Endocrinology, Diabetes and Metabolism 06/06/21 documented as of this encounter
--- OUTSIDE RECORDS SUMMARY | 2024-02-13 18:07 | XMS_ITS | Encounter Summary ---
Author Organization [facility] Address [address] [place] [address] Care Team Providers Care Civil Project Engineer Name Role Phone Lisa Yan GLOBAL CHIEF EXPERIENCE OFFICER Unavailable [phone] Lisa Yan GLOBAL CHIEF EXPERIENCE OFFICER Unavailable Lia Pearson APRN Primary Care Provider [phone] Encounter Details Date Type Department Care Team (Late st Contact Info) Description 10/02/2021 Lab Requisition [facility] Pathology & Laboratory Medicine - [facility] [address], [place] [id number] Outr Resulting Lab, Provider Social History Tobacco [...] encounter Results * FSH (10/02/2021 9:37 EDT) [facility] FSH 3.7 See Note mIU/mL 10/02/2021 20:40 EDT [facility] Blood VENOUS BLOOD / Unknown 10/02/2021 9:37 EDT 10/02/2021 19:14 EDT Narrative [facility] - 10/02/2021 20:40 EDT NOTE: [...] Resulting Lab CHEMISTRY & BLOOD GAS ORDERABLES [facility] [address] [place] [address] * (ABNORMAL) FACTOR 8 ASSAY (10/02/2021 9:37 EDT) [facility] Factor 8 Assay 231(H) 50 - 150 % 10/03/2021 10:53 EDT [facility] Comment:This FVIII activity is clot-based, and will overestimate the endogenous factor activity in the presence of emicizumab (Hemlibra). Blood VENOUS BLOOD / Unknown 10/02/2021 9:37 EDT 10/02/2021 19:14 EDT Provider Outr Resulting Lab HEMATOLOGY & PF4 ORDERABLES Performing Organization Address [facility] Co de Phone Number [facility] [address] [place] [address] * ESTRADIOL, ADULTS (10/02/2021 9:37 EDT) [facility] Estradiol 40 See Note pg/mL 10/02/2021 20:26 EDT [facility] Comment: NOTE: FEMALE REFERENCE RANGES: [...] & BLOOD GAS ORDERABLES Performing Organization Address [facility] Co de Phone Number [facility] [address] [place] [address] * (ABNORMAL) [facility] ANTIGEN (10/02/2021 9:37 EDT) [facility] VWF Antigen 213(H) 50 - 185 % 10/03/2021 10:53 EDT [facility] Comment:The presence of Rheu matoid [...] HEMATOLOGY & PF4 ORDERABLES Performing Organization Address [facility] de Phone Number [facility] [address] [place] [address] * (ABNORMAL) [place] FACTOR ACTIVITY (10/02/2021 9:37 EDT) [facility] Activity 173(H) 49 - 163 % 10/03/2021 10:53 EDT [facility] Comment:Rheumatoid factor le vels greater [...] HEMATOLOGY & PF4 ORDERABLES Performing Organization Address [facility] de Phone Number [facility] [address] [place] [address] documented in this encounter Visit Diagnoses Not on filedocumented in this encounter Additional Health Concerns Infection Onset Date Last Indicated Resolved Time COVID-19 12/25/2021 12/25/2021 01/14/2022 22:1 5 EDT documented as of this encounter Care Teams Civil Project Engineer Relationship Specialty Start Date End Date Lia Pearson APRN [address] [place] [address] PCP - General Family Medicine - [facility] Medicine 09/26/21 Lisa Yan NP [address] [place] [address] [address] [place] [phone] Nurse Practitioner Endocrinology, Diabetes and Metabolism 03/19/21 Lisa Yan NP [address] [place] [address] [phone] Nurse Practitioner Endocrinology, Diabetes and Metabolism 06/06/21 documented as of this encounter
--- OUTSIDE RECORDS SUMMARY | 2024-02-13 18:07 | XMS_ITS | Encounter Summary ---
Author Organization [facility] Address [address] [place] [address] Care Team Providers Care Director Consumer Name Role Phone Bay, Maria R Perez UTILITY SALES REPRESENTATIVE Primary Care Provider [phone] Lisa Yan CARD PUNCHING MACHINE OPERATOR Unavailable [phone] Lisa Yan CARD PUNCHING MACHINE OPERATOR Unavailable Lia Pearson APRN Primary Care Provider [phone] Reason for Visit * Reason Onset Date Comments Appointment Related 10/31/2020 Encounter Details Date Type Department Care Team (Late st Contact Info) Description 10/31/2020 Telephone [facility] Interventional Pain [address] [facility] [address] Justice Castillo MD [address] [facility] [address] [place] [address] Appointment Related Social History Tobacco [...] documented as of this encounter Care Teams Director Consumer Relationship Specialty Start Date End Date Maria R Hermosillo FNP [address] [address] PCP - General Family Medicine - Primary Care 12/03/20 09/25/21 Lia Pearson APRN [address] [place] [address] PCP - General Family Medicine - [facility] 09/26/21 Lisa Yan CARD PUNCHING MACHINE OPERATOR [address] [place] [address] [phone] Nurse Practitioner Endocrinology, Diabetes and Metabolism 03/19/21 Lisa Yan NP [address] [place], [place] [phone] Nurse Practitioner Endocrinology, Diabetes and Metabolism 06/06/21 documented as of this encounter
--- OUTSIDE RECORDS SUMMARY | 2024-02-13 18:07 | XMS_ITS | Encounter Summary ---
Author Organization [facility] Address [address] [place] [address] Care Team Providers Care Gutter Hanger Name Role Phone Lisa Yan PREMIUM NOTE INTEREST CALCULATOR CLERK Unavailable Lisa Yan PREMIUM NOTE INTEREST CALCULATOR CLERK Unavailable [phone] Lia Pearson APRN Primary Care Provider [phone] Reason for Visit * Reason Comments Other Encounter Details Date Type Department Care Team (Late st Contact Info) Description 11/16/2021 Refill [facility] [place] [address] [place] [address] Lisa Yan PREMIUM NOTE INTEREST CALCULATOR CLERK [address] [facility] [address] [place] [phone] Other Social History Tobacco Use Types Packs/Day [...] documented as of this encounter Care Teams Gutter Hanger Relationship Specialty Start Date End Date Lia Pearson APRN [address] [place] [address] PCP - General [facility] Medicine 09/26/21 Lisa Yan NP [address] [place] [address] [phone] Nurse Practitioner Endocrinology, Diabetes and Metabolism 03/19/21 Lisa Yan NP [address] [place] [address] [phone] Nurse Practitioner Endocrinology, Diabetes and Metabolism 06/06/21 documented as of this encounter
--- OUTSIDE RECORDS SUMMARY | 2024-02-13 18:07 | XMS_ITS | Encounter Summary ---
Author Organization [facility] Address [address] [place] [address] Care Team Providers Care Event Security Officer Name Role Phone Lisa Yan LEAD SLOT TECHNICIAN Unavailable [phone] Lisa Yan LEAD SLOT TECHNICIAN Unavailable [phone] Lia Pearson APRN Primary Care Provider [phone] Reason for Visit * Reason Onset Date Comments Blood Sugar Problem 12/23/2021 Encounter Details Date Type Department Care Team (Late st Contact Info) Description 12/23/2021 Telephone [facility] [place] [address] [place] [address] Shari Hsu RN Blood Sugar [...] Encounter - Shari Hsu RN - 12/23/2021 1428 EDT Pt messaged [...] weeks - before all meals she's in [id number]'s takes 6 units of novolog and after [...] documented as of this encounter Care Teams Event Security Officer Relationship Specialty Start Date End Date Lia Pearson APRN [address] [place] [address] PCP - General Family Medicine [facility] Medicine 09/26/21 Lisa Yan NP [address] [place] [address] [phone] Nurse Practitioner Endocrinology, Diabetes and Metabolism 03/19/21 Lisa Yan NP [address] [place] [address] [phone] Nurse Practitioner Endocrinology, Diabetes and Metabolism 06/06/21 documented as of this encounter
--- OUTSIDE RECORDS SUMMARY | 2024-02-13 18:07 | XMS_ITS | Encounter Summary ---
Author Organization [facility] Address [address] [place] [address] Care Team Providers Care Glazier Supervisor Name Role Phone Maria R Hermosillo PACKING ATTENDANT Primary Care Provider [phone] Lisa Yan CORD SPLICER Unavailable [phone] Lisa Yan CORD SPLICER Unavailable [phone] Reason for Visit * Reason Onset Date Comments Medications Refill 06/09/2021 Encounter Details Date Type Department Care Team (Late st Contact Info) Description 06/09/2021 Refill [facility] Endocrinology [address] [place] [address] Sheryl More RN Medications Refill Social History [...] documented as of this encounter Care Teams Glazier Supervisor Relationship Specialty Start Date End Date Maria R Hermosillo FNP [address] [address] PCP - General Family Medicine - Primary Care 12/03/20 09/25/21 Lisa Yan NP [address] [place] [address] [phone] Nurse Practitioner Endocrinology, Diabetes and Metabolism 03/19/21 Lisa Yan NP [address] [place] [address] [phone] Nurse Practitioner Endocrinology, Diabetes and Metabolism 06/06/21 documented as of this encounter
--- OUTSIDE RECORDS SUMMARY | 2024-02-13 18:07 | XMS_ITS | Encounter Summary ---
Author Organization [facility] Address [address] [place] [address] Care Team Providers Care Patient Account Liaison Name Role Phone BayMaria R mcfadden MORTGAGE COORDINATOR Primary Care Provider [phone] Lisa Yan BOTTLE HOUSE QUALITY CONTROL TECHNICIAN Unavailable [phone] Lisa Yan BOTTLE HOUSE QUALITY CONTROL TECHNICIAN Unavailable [phone] Reason for Visit * Reason Onset Date Comments Diabetes 06/13/2021 Encounter Details Date Type Department Care Team (Late st Contact Info) Description 06/13/2021 Telephone [facility] [place] [address] [place] [address] Shari Hsu RN Diabetes Social History Tobacco [...] Notes * Telephone Encounter - Lisa Yan, PAINTING TECHNICIAN - 06/13/2021 1410 EST All set. * [...] on filedocumented in this encounter Care Teams Patient Account Liaison Relationship Specialty Start Date End Date Maria R Hermosillo FNP [address] [address] PCP - General Family Medicine - Primary Care 12/03/20 09/25/21 Lisa Yan NP [address] [place] [address] [phone] Nurse Practitioner Endocrinology, Diabetes and Metabolism 03/19/21 Lisa Yan NP [address] [place] [address] [phone] Nurse Practitioner Endocrinology, Diabetes and Metabolism 06/06/21 documented as of this encounter
--- OUTSIDE RECORDS SUMMARY | 2024-02-13 18:07 | XMS_ITS | Encounter Summary ---
Author Organization [facility] Address [address] [place] [address] Care Team Providers Care Gallery Intern Name Role Phone Lisa Yan INTERNET CONSULTANT Unavailable Lisa Yan INTERNET CONSULTANT Unavailable Lia Pearson APRN Primary Care Provider [phone] Reason for Visit * Reason Onset Date Comments Diabetes 10/06/2021 dfc Encounter Details Date Type Department Care Team (Late st Contact Info) Description 10/06/2021 Telephone [facility] - [facility] [place] Endocrinology [address] [place], [place] [phone] Dina Baldwin RN [address] [place], [place] [phone] Diabetes (df) Social History Tobacco Use Types [...] Baldwin, RN - 10/06/2021 1548 EDT Wants [facility] visit; I am glad to do it but I lmom that Medicare is probably not going to pay for it. Lázaro scheduled it but she may call to cancel if she needs to. documented in this encounter Plan of Treatment Not on file documented as of this encounter Visit Diagnoses Not on filedocumented in this encounter Care Teams Gallery Intern Relationship Specialty Start Date End Date Lia Pearson APRN [address] [place] [address] PCP - General [facility] Medicine 09/26/21 Lisa Yan INTERNET CONSULTANT [address] [place] [address] [phone] Nurse Practitioner Endocrinology, Diabetes and Metabolism 03/19/21 Lisa Yan NP [address] [place] [address] [phone] Nurse Practitioner Endocrinology, Diabetes and Metabolism 06/06/21 documented as of this encounter
--- OUTSIDE RECORDS SUMMARY | 2024-02-13 18:07 | XMS_ITS | Encounter Summary ---
Author Organization [facility] Address [address] [place] [address] Care Team Providers Care Benefits Representative Name Role Phone Maria R Hermosillo COPPING MACHINE OPERATOR Primary Care Provider [phone] Lisa Yan ENROLLMENT SPECIALIST Unavailable Lisa Yan ENROLLMENT SPECIALIST Unavailable [phone] Reason for Visit * Reason Onset Date Comments Diabetes 08/21/2021 Encounter Details Date Type Department Care Team (Late st Contact Info) Description 08/21/[address] [facility] - [facility] [place] [address] [place] [address] Shari Hsu RN Diabetes Social History Tobacco [...] on filedocumented in this encounter Care Teams Benefits Representative Relationship Specialty Start Date End Date Maria R Hermosillo FNP [address] [address] PCP - General Family Medicine - Primary Care 12/03/20 09/25/21 Lisa Yan NP [address] [place] [address] [phone] Nurse Practitioner Endocrinology, Diabetes and Metabolism 03/19/21 Lisa Yan NP [address] [place] [address] [phone] Nurse Practitioner Endocrinology, Diabetes and Metabolism 06/06/21 documented as of this encounter
--- OUTSIDE RECORDS SUMMARY | 2024-02-13 18:07 | XMS_ITS | Encounter Summary ---
Author Organization [facility] Address [address] [place] [address] Care Team Providers Care Volunteer Services Coordinator Name Role Phone Maria R Hermosillo GAS PIPE LAYER Primary Care Provider [phone] Lisa Yan CLOTH PRESSER Unavailable Reason for Visit * Reason Onset Date Comments Diabetes 2021 Encounter Details Date Type Department Care Team (Late st Contact Info) Description 2021 Telephone [facility] Endocrinology [address] [place] [phone] Shari Hsu RN Diabetes Social History Tobacco [...] Encounter - Shari Hsu RN - 2021 5039 EST [facility] called - need note addended if appropriate to state pt on a sliding scale 3 x daily andneeds to make adjustments of insulin based on readings (not on a sliding scale ) documented in this encounter Plan of Treatment Not on file documented as of this encounter Visit Diagnoses Not on filedocumented in this encounter Care Teams Volunteer Services Coordinator Relationship Specialty Start Date End Date Maria R Hermosillo FNP [address] [address] PCP - General Family Medicine - Primary Care 12/03/20 09/25/21 Lisa Yan CLOTH PRESSER [address] [place] [address] [place] [address] [phone] Nurse Practitioner Endocrinology, Diabetes and Metabolism 03/19/21 documented as of this encounter
--- OUTSIDE RECORDS SUMMARY | 2024-02-13 18:07 | XMS_ITS | Encounter Summary ---
Author Organization [facility] Address [address] [place] [address] Care Team Providers Care Hand Weaver Name Role Phone BayMaria R bloom GLOBAL ANALYTICS HEAD Primary Care Provider [phone] Lisa Yan APPRENTICE ARCHITECT Unavailable [phone] Lisa Yan APPRENTICE ARCHITECT Unavailable [phone] Reason for Visit * Reason Onset Date Comments Blood Glucose Review 08/07/2021 Encounter Details Date Type Department Care Team (Late st Contact Info) Description 08/07/2021 Telephone [facility] [place] [address] [place] [address] Shari Hsu RN Blood Glucose Review Social [...] EDT In your box Can respond via [employer] documented in this encounter Plan of Treatment Not on file documented as of this encounter Visit Diagnoses Not on filedocumented in this encounter Care Teams Hand Weaver Relationship Specialty Start Date End Date Maria R Hermosillo FNP [address] [address] PCP - General Family Medicine - Primary Care 12/03/20 09/25/21 Lisa Yan NP [address] [place] [address] [phone] Nurse Practitioner Endocrinology, Diabetes and Metabolism 03/19/21 Lisa Yan NP [address] [place] [address] [phone] Nurse Practitioner Endocrinology, Diabetes and Metabolism 06/06/21 documented as of this encounter
--- OUTSIDE RECORDS SUMMARY | 2024-02-13 18:07 | XMS_ITS | Encounter Summary ---
Author Organization [facility] Address [address] [place] [address] Care Team Providers Care Striker Off Name Role Phone Lisa Yan RECEIVING CHECKER Unavailable [phone] Lisa Yan RECEIVING CHECKER Unavailable [phone] Lia Pearson APRN Primary Care Provider [phone] Encounter Details Date Type Department Care Team (Latest Contact Info) Description 11/13/2021 13:54 EDT - 11/13/2021 23:59 EDT Hospital Encounter [facility] - Main [address] [phone] Discharge Disposition: Home or Self Care Social [...] on filedocumented in this encounter Care Teams Striker Off Relationship Specialty Start Date End Date Lia Pearson APRN [address] [place] [address] PCP - General Family Medicine - [facility] Medicine 09/26/21 Lisa Yan NP [address] [place] [address] [phone] Nurse Practitioner Endocrinology, Diabetes and Metabolism 03/19/21 Lisa Yan NP [address] [place] [address] [phone] Nurse Practitioner Endocrinology, Diabetes and Metabolism 06/06/21 documented as of this encounter
--- OUTSIDE RECORDS SUMMARY | 2024-02-13 18:07 | XMS_ITS | Encounter Summary ---
Author Organization [facility] Address [address] [place] [address] Care Team Providers Care Tax Services Professional Name Role Phone Lisa Yan WELFARE VISITOR Unavailable Lisa Yan WELFARE VISITOR Unavailable [phone] Lia Pearson APRN Primary Care Provider [phone] Reason for Visit * Reason Comments Diabetes Encounter Details Date Type Department Care Team (Late st Contact Info) Description 09/26/2021 15:30 EDT [facility] [place] [facility] [place] [address] [place] [address] Lisa Yan WELFARE VISITOR [address] [facility] [address] [place] [phone] Type 2 diabetes mellitus with hyperglycemia, with long-term current use of insulin ([facility]) ([facility]) (Primary Dx); Other specified hypothyroidism; BMI 60.0-69.9, adult ([facility]) ([facility]) (HCC-CMS); Long-term insulin use ([facility]) ([facility]); longterm 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; Mixed [...] DM f/up PCP: BERNIE Pearson OTHER PROVIDERS: CRANE HOOKER Dr. Haider, cardiology Zenia Worley is a 31 y.o. female who presented to the clinic for a follow-up in [facility], with a history of DM for [...] ACEI/ARB: losartan 25 mg Prior visit with licensed insurance agent: CORNELIO Aguayo Foot care: self Comorbidities: Retinopathy: [...] [facility] with a [facility] of [facility] for ?15 yrs. Problem List Items Addressed This Visit Endocrine/Metabolic Type 2 diabetes mellitus with hyperglycemia, with long-term current use of insulin ([facility]) ([facility]) - Primary Uncontrolled A1C 8.5 Given 4 [...] specified hypothyroidism TSH stable. BMI 60.0-69.9, adult ([facility]) ([facility]) Long discussion on bariatric surgery today. Would like to have clearance from cardiology prior to with her recent CV concerns. 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) Long discussion on bariatric surgery [...] long- term current use of insulin ([facility]) Uncontrolled A1C 8.5 Given 4 juices prior [...] with long-term current use of insulin ([facility])- Primary Other specified hypothyroidism BMI 60.0-69.9, adult ([facility]) Body Mass Index 60.0-69.9, adult Long-term insulin use ([facility]) Encounter for long-term (current) use of insulin longterm 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 Mixed [...] 10/23/2022 added in this encounter Care Teams Tax Services Professional Relationship Specialty Start Date End Date Lia Pearson APRN [address] [place] [address] PCP - General Family [facility] Medicine 09/26/21 Lisa Yan WELFARE VISITOR [address] [place] [address] [phone] Nurse Practitioner Endocrinology, Diabetes and Metabolism 03/19/21 Lisa Yan NP [address] [place] [address] [phone] Nurse Practitioner Endocrinology, Diabetes and Metabolism 06/06/21 documented as of this encounter
--- OUTSIDE RECORDS SUMMARY | 2024-02-13 18:07 | XMS_ITS | Encounter Summary ---
Author Organization [facility] Address [address] [place] [address] Care Team Providers Care Carpenters Helper Name Role Phone Maria R Hermosillo LOSS PREVENTION AND SAFETY MANAGER Primary Care Provider [phone] Lisa Yan YACHT RIGGER Unavailable [phone] Lisa Yan YACHT RIGGER Unavailable Reason for Visit * Reason Onset Date Comments Blood Sugar Problem 09/01/2021 Encounter Details Date Type Department Care Team (Late st Contact Info) Description 09/01/2021 Telephone [facility] [place] Endocrinology [address] [place] [address] Sheryl More RN Blood Sugar Problem Social [...] Encounter - Dina Baldwin RN - 09/01/2021 5266 EDT Reports low bs at night that [...] on filedocumented in this encounter Care Teams Carpenters Helper Relationship Specialty Start Date End Date Maria R Hermosillo FNP [address] [address] PCP - General Family Medicine - Primary Care 12/03/20 09/25/21 Lisa Yan NP [address] [place] [address] [phone] Nurse Practitioner Endocrinology, Diabetes and Metabolism 03/19/21 Lisa Yan NP [address] [place] [address] [phone] Nurse Practitioner Endocrinology, Diabetes and Metabolism 06/06/21 documented as of this encounter
--- OUTSIDE RECORDS SUMMARY | 2024-02-13 18:07 | XMS_ITS | Encounter Summary ---
Author Organization [facility] Address [address] [place] [address] Care Team Providers Care Finisher Card Tender Name Role Phone Lisa Yan DISC JOCKEY Unavailable [phone] Lisa Yan DISC JOCKEY Unavailable Lia Pearson APRN Primary Care Provider [phone] Encounter Details Date Type Department Care Team (Late st Contact Info) Description 12/26/2021 Lab Requisition [facility] Pathology & Laboratory Medicine - [facility] [address], [place] [id number] Outr Resulting Lab, Provider Social History Tobacco [...] Priority Date/Time Associated Diagnosis Comments ZZCOVID-19 TEST [facility] PCR Today 12/25/2021 9:10 EDT COVID-19 TESTING Routine 12/25/2021 9:10 EDT documented in this encounter Results * COVID-19 TEST [facility] PCR (12/25/2021 9:10 EDT) Swab 12/25/2021 9:10 EDT 12/26/2021 17:03 EDT Provider Outr Resulting Lab MICROBIOLOGY - GENERAL ORDERABLES Performing Organization Address [facility] Co de Phone Number [facility] [address] [place] [address] * (ABNORMAL) COVID-19 TESTING (12/25/2021 9:10 EDT) COVID-19 rt-PCR Result Positive( AA) Negative 12/27/2021 10:35 EDT [facility] Comment: This test has not [...] was performed using the cristina SARS-CoV-2 assay ([employer] on the Cristina 6800 System Performing Lab Cristina [address] [facility] 12/27/2021 10:35 EDT [facility] Swab 12/25/2021 9:10 EDT 12/26/2021 17:03 EDT Provider Outr Resulting Lab MICROBIOLOGY - GENERAL ORDERABLES Performing Organization Address [facility]/ZIP Co de Phone Number [facility] [address] [place] [address] documented in this encounter Visit Diagnoses Not on filedocumented in this encounter Additional Health Concerns Infection Onset Date Last Indicated Resolved Time COVID-19 12/25/2021 12/25/2021 01/14/2022 22:1 5 EDT documented as of this encounter Care Teams Finisher Card Tender Relationship Specialty Start Date End Date Lia Pearson APRN [address] [place] [address] PCP - General Family Medicine [facility] 09/26/21 Lisa Yan DISC JOCKEY [address] [place] [address] [phone] Nurse Practitioner Endocrinology, Diabetes and Metabolism 03/19/21 Lisa Yan NP [address] [place] [address] [address] [place] [phone] Nurse Practitioner Endocrinology, Diabetes and Metabolism 06/06/21 documented as of this encounter
--- OUTSIDE RECORDS SUMMARY | 2024-02-13 18:07 | XMS_ITS | Encounter Summary ---
Author Organization [facility] Address [address] [place] [address] Care Team Providers Care Representative Name Role Phone Lisa Yan METAL TEMPLATE MAKER Unavailable Lisa Yan METAL TEMPLATE MAKER Unavailable [phone] Lia Pearson APRN Primary Care Provider [phone] Reason for Visit * Reason Onset Date Comments Diabetes 10/30/2021 Encounter Details Date Type Department Care Team (Late st Contact Info) Description 10/30/2021 Telephone [facility] Endocrinology [address] [place], [place] [id number] Dina Baldwin, TOM [address] [place], [place] [address] Diabetes Social History Tobacco Use Types Packs/Day [...] on filedocumented in this encounter Care Teams Representative Relationship Specialty Start Date End Date Lia Pearson APRN [address] [place] [address] PCP - General Family Medicine - [facility] 09/26/21 Lisa Yan NP [address] [place] [address] [phone] Nurse Practitioner Endocrinology, Diabetes and Metabolism 03/19/21 Lisa Yan NP [address] [place] [address] [phone] Nurse Practitioner Endocrinology, Diabetes and Metabolism 06/06/21 documented as of this encounter
--- OUTSIDE RECORDS SUMMARY | 2024-02-13 18:07 | XMS_ITS | Encounter Summary ---
Author Organization [facility] Address [address] [place] [address] Care Team Providers Care Millinery Designer Name Role Phone Maria R Hermosillo HONING MACHINE SET UP OPERATOR Primary Care Provider [phone] Lisa Yan NEUROLOGY EPILEPSY PHYSICIAN Unavailable Lisa Yan NEUROLOGY EPILEPSY PHYSICIAN Unavailable Reason for Visit * Reason Comments Diabetes DFC; preventative Encounter Details Date Type Department Care Team (Late st Contact Info) Description 06/06/2021 15:30 EST Nurse Only [facility] Endocrinology [address] [place] [address] Dina Baldwin, RN [address] [place] [address] Hyperkeratosis of sole (Primary Dx); Type 2 diabetes mellitus with hyperglycemia, without long-term current use of insulin ([facility] ([facility]) Social History Tobacco Use Types Packs/Day Years [...] this encounter Progress Notes * Dina Baldwin, TOM - 06/06/2021 1600 EST Seeing Lisa Yan [...] nail nippers. Procedure Codes G0127 Trim nails 02008 Paring 2-4 calluses Follow Up 6 months documented in this encounter Plan of Treatment Not on file documented as of this encounter Visit Diagnoses Diagnosis Hyperkeratosis of sole- Primary Acquired keratoderma Type 2 diabetes mellitus with hyperglycemia, without long-term current use of insulin ([facility]) documented in this encounter Care Teams Millinery Designer Relationship Specialty Start Date End Date Maria R Hermosillo FNP [facility] [address] [address] PCP - General Family Medicine - Primary Care 12/03/20 09/25/21 Lisa Yan NP [address] [place] [address] [address] [place] [phone] Nurse Practitioner Endocrinology, Diabetes and Metabolism 03/19/21 Lisa Yan NP [address] [place] [address] [address] [place] [phone] Nurse Practitioner Endocrinology, Diabetes and Metabolism 06/06/21 documented as of this encounter
--- OUTSIDE RECORDS SUMMARY | 2024-02-13 18:07 | XMS_ITS | Encounter Summary ---
Author Organization [facility] Address [address] [place] [address] Care Team Providers Care Nickel Operator Name Role Phone [place], Maria R Perez GUIDE DOMESTIC TOUR Primary Care Provider [phone] Lisa Yan NATIONAL ACCOUNT DIRECTOR Unavailable Lisa Yan NATIONAL ACCOUNT DIRECTOR Unavailable Reason for Visit * Reason Comments Diabetes Toshia sensor adrianin g Encounter Details Date Type Department Care Team (Late st Contact Info) Description 08/01/2021 15:00 EDT Nurse Only [facility] Endocrinology [address] [place], [place] [id number] Dina Baldwin, RN [address] [place] [address] Type 2 diabetes mellitus with hyperglycemia, with long-term current use of insulin ([facility] ([facility]) (Primary Dx) Social History Tobacco Use Types [...] ([facility])- Primary documented in this encounter Care Teams Nickel Operator Relationship Specialty Start Date End Date Maria R Hermosillo FNP [address] [address] PCP - General Family Medicine - Primary Care 12/03/20 09/25/21 Lisa Yan NP [address] [place] [address] [phone] Nurse Practitioner Endocrinology, Diabetes and Metabolism 03/19/21 Lisa Yan NP [address] [place] [address] [phone] Nurse Practitioner Endocrinology, Diabetes and Metabolism 06/06/21 documented as of this encounter
--- NOTE | 2024-02-13 18:18 | W.ED.GENAD ---
Discharge Plan Disposition Patient Disposition: Home Condition: Stable Discharge Details Clinical Impression: Urinary tract infection, Fatigue, Lightheadedness, T2DM (type 2 diabetes mellitus), Obstructive sleep apnea (adult) (pediatric), Menorrhagia, Heart failure with preserved ejection fraction, Schizoaffective disorder, bipolar type Primary Care Provider: Lia Pearson ED Provider: Zenia Rooney Home Meds and New Rx's Prescriptions: New cephalexin 500 mg capsule 500 mg PO QID 5 Days Qty: 20 0RF No Action rosuvastatin [Crestor] 40 mg tablet 40 mg PO DAILY doxepin 6 mg tablet 6 mg PO QHS PRN (Reason: sleep) Qty: 90 0RF (DME) lancets [OneTouch UltraSoft Lancets] Misc See Rx Instructions .ROUTE .MEDSUPPLY Qty: 400 3RF Rx Instructions: test ac and hs prn E11.9 to maintain AIC <7 OneTouch Verio (DME) OneTouch Verio test strips Strip See Rx Instructions .ROUTE .MEDSUPPLY Qty: 400 3RF Rx Instructions: to test blood sugars ac and hs to maintain AIC <7, E11.9 glucose [Dex4 Glucose] 4 gram tablet,chewable 4 g PO Q10MIN PRN (Reason: hypoglycemia) Qty: 100 3RF Rx Instructions: until symptoms of low blood sugar are controlled hydroxyzine pamoate 25 mg capsule 25 mg PO BID PRN chlorpromazine 50 mg tablet 50 mg PO .COMPLEX Rx Instructions: 50 mg tablets: 50 mg AM and 300 mg PM metformin 500 mg tablet extended release 24 hr 1,000 mg PO BID aripiprazole [Abilify] 5 mg tablet 25 mg PO QAM trazodone 300 mg tablet 400 mg PO QHS methocarbamol 500 mg tablet 500 mg PO TID PRN (Reason: muscle spasm of lumbar spine) Qty: 40 0RF (DME) pen needle, diabetic [Pen Needle] 32 gauge x needle See Rx Instructions .ROUTE .MEDSUPPLY Qty: 50 Rx Instructions: bid to administer insulin bid E11.9 levothyroxine 200 mcg tablet 200 mcg PO DAILY gabapentin 300 mg capsule 300 mg PO TID (DME) FreeStyle Toshia 2 [place] Misc See Rx Instructions .Route Rx Instructions: swipe 4-5 times daily per note dated 11/12/21 [facility] cc (DME) FreeStyle Toshia [place] [facility] See Rx Instructions .Route Rx Instructions: Swipe 4-5 x's daily per note dated 12/31/21 [facility] senna 8.6 mg capsule 8.6 mg PO DAILY (DME) Depend Underwear For Women XL [facility] See Rx Instructions .Route Qty: 60 12RF Rx Instructions: 1-2 per day prn (DME) incontinence pad, liner, disp Pad See Rx Instructions .Route Qty: 40 12RF Rx Instructions: 1-2 per day norethindrone acetate 5 mg tablet 10 mg PO TID cholecalciferol (vitamin D3) 50 mcg (2,000 unit) capsule See Rx Instructions .ROUTE .COMPLEX Qty: 28 11RF Dose Instruction: TAKE 1 CAPSULE BY MOUTH DAILY Rx Instructions: TAKE 1 CAPSULE BY MOUTH DAILY ferrous gluconate 324 mg (38 mg iron) tablet See Rx Instructions .ROUTE .COMPLEX Qty: 56 11RF Dose Instruction: TAKE 1 TABLET BY MOUTH TWICE A DAY Rx Instructions: TAKE 1 TABLET BY MOUTH TWICE A DAY docusate sodium 100 mg capsule 100 mg PO BID PRN (Reason: constipation) omeprazole 40 mg capsule,delayed release(DR/EC) 40 mg PO DAILY Rx Instructions: x90 days ondansetron 4 mg tablet,disintegrating 4 mg PO Q8H PRN (Reason: nausea) ursodiol 300 mg capsule 300 mg PO BID Rx Instructions: x 180 days. Start 06/17/2023 per [facility] acetaminophen 325 mg tablet 650 mg PO Q6H PRN (Reason: pain) polyethylene glycol 3350 17 gram/dose powder 17 g PO DAILY metoprolol succinate 100 mg tablet extended release 24 hr See Rx Instructions .ROUTE .COMPLEX Qty: 28 11RF Dose Instruction: TAKE 1 TABLET BY MOUTH AT BEDTIME Rx Instructions: TAKE 1 TABLET BY MOUTH AT BEDTIME losartan 100 mg tablet 100 mg PO DAILY dapagliflozin propanediol [Farxiga] 5 mg tablet 5 mg PO DAILY prazosin [Minipress] 5 mg capsule 10 mg PO DAILY insulin lispro [Humalog U-100 Insulin] 100 unit/mL solution 1 sliding scale dose subcut USEASDIRECTD Rx Instructions: Inject SQ Three times a day before meals. BG over 200-240 2 units, GB 241-270 3 units, BG 271-310 4 units. furosemide 20 mg tablet 20 - 40 mg PO QAM Qty: 180 0RF Rx Instructions: CHF (diastolic) glucagon HCl [Glucagon (HCl) Emergency Kit] 1 mg recon soln 1 mg subcut Q20M PRNQty: 1 0RF Rx Instructions: until target blood sugar attained bupropion HCl 150 mg tablet sustained-release 12 hr 100 mg PO DAILY Discharge Instructions Instructions: Urinary Tract Infection, Adult ED Additional Instructions: You were seen in the emergency department for fatigue and lightheadedness and were found to have a urinary tract infection. In our department you had a full physical examination performed, had a reassuring EKG and laboratory workup, and received your first dose of antibiotics. I send you home with 1 day of antibiotics in a bottle, as well as 5 more days at the pharmacy, and I want you to start taking these tomorrow. You will take all this medication until it is gone, even if you start feeling better. You need to maintain good hydration and nutrition and follow-up with your primary care provider in the next few days to discuss this visit and any symptoms that change, worsen, or persist. Thank you for allowing us to be part of your care. Stand Alone Forms: Work Release HPI General Mode of arrival: ambulatory. Date/Time Provider Initiated Documentation: 02/13/24 17:53. Limitations to Documentation: no limitations. Information obtained by: patient and old records reviewed. HPI Narrative: HPI: This is a 33-year-old female patient with a past medical history significant for abnormal uterine bleeding, status post Lobo-en-Y, hypothyroidism, schizoaffective disorder, [place], type 2 diabetes, HFpEF, who is presenting for evaluation of dizziness and fatigue. The patient reports that for the last several days she has felt excessively tired, is sleeping more than typical for her and has felt dizzy upon standing. She reports that she has not had any loss of consciousness, falls or injuries, but did feel very lightheaded and had to sit down at work yesterday. The patient reports that she has had 3 months of excessive uterine bleeding that has gradually increased in severity. She is followed by an GEOLOGICAL SURVEY FIELD ASSISTANT at [facility] and in discussions for endometrial ablation, currently taking norethindrone daily for management of her bleeding. She reports that she uses approximately 3 adult briefs per day. The patient states that she has a history of anemia, and is concerned that she may be becoming anemic. She has had no change in her p.o. intake and has been maintaining her hydration normally. The patient states that she has not had any fevers or chills, but did get some blurriness in her vision during her lightheaded episode. She did not have any chest pain, shortness of breath, abdominal pain, nausea or vomiting. Exam: Gen: Awake and alert, in no apparent distress HEENT: Non-icteric sclera, pupils equal and reactive Neck: Supple, no meningismus Lungs: No apparent respiratory distress, normal respiratory effort. Lung sounds are clear and equal bilaterally CV: Appears well perfused, heart with regular rate and rhythm, no murmurs auscultated Abdomen: Non-distended, soft, nontender MSK: Moves 4 extremities without apparent limitation in ROM. No unilateral calf swelling or tenderness, no peripheral edema Skin: Visualized skin without rashes, cyanosis. Neuro: Normal Gait, no obvious focal deficits or facial asymmetry, cranial nerves II through XII intact and symmetrical bilaterally, full strength and sensation. Speaks in full, clear sentences. Psych: Appropriate for situation. MDM: This is a 33-year-old female patient presenting for evaluation of dizziness/near syncope and fatigue. My differential includes but is not limited to anemia, orthostasis, vasovagal syndrome, metabolic and electrolyte derangement, dehydration, kidney injury. Certainly considered cardiac abnormalities including arrhythmia, ACS, heart failure exacerbation, though the patient is reassuringly without evidence of fluid overload nor chest pain. I considered pulmonary abnormalities, specifically PE given her recent hormone use, though she is without shortness of breath or chest pain. We obtained and I reviewed an EKG, which shows a sinus tachycardia of 104 (this had resolved by the time that I got into her room for an evaluation), with no interval abnormality or long QT, no evidence of ischemia, no ectopy. We will obtain laboratory studies to include CBC, CMP, magnesium, [id number] test, PT/INR, and a type and screen. ED Course: I independently interpreted the laboratory studies, which show no significant leukocytosis, anemia, or thrombocytopenia. The chemistry panel is without evidence of electrolyte abnormality, kidney dysfunction, or liver injury with the exception of an elevated, blood glucose consistent with her history of diabetes. She has no significant anion gap elevation or decrease in her bicarb to increase my concern for diabetic ketoacidosis. Given the normal hemoglobin and hematocrit, the lack of coagulopathy on her laboratory studies I did go reassess the patient, who remains with tachycardia, mild tachypnea, and just continues to feel quite dizzy. She was given a liter of lactated Ringer's, and after shared decision-making conversation we did elect to proceed with D-dimer testing. I will also obtain a VBG to evaluate for any hypercarbia that could be contributing to her condition. D-dimer was negative, VBG without acidosis or hypercarbia. I did obtain a urinalysis on this patient and a U preg, which was negative but the patient did have blood and nitrites in her urine concerning for urinary tract infection. When reassessed, the patient continues to denied abdominal pain, back pain or flank pain, dysuria, hematuria, though certainly her nonspecific symptoms of fatigue and lightheadedness could be attributed to a urinary tract infection. For this reason I did provide the patient with a prescription for Keflex, and an initial dose of ceftriaxone here in the emergency department. At this time, the patient has had a full medical evaluation and is safe for discharge to home. They are hemodynamically stable, ambulatory, and tolerating PO. They are understanding of the follow-up plan and return precautions. They left our facility without incident. Zenia Rooney MD Related Data Home Medications ?Medication ?Instructions ?Recorded ?Confirmed gabapentin 300 mg capsule 300 mg PO TID 06/20/21 02/13/24 levothyroxine 200 mcg tablet 200 mcg PO DAILY 06/20/21 02/13/24 pen needle, diabetic 32 gauge x #50 ea 06/20/21 02/13/24 (Pen Needle) rosuvastatin 40 mg tablet (Crestor) 40 mg PO DAILY 11/03/21 02/13/24 flash glucose scanning reader 11/24/21 02/13/24 (FreeStyle Toshia 2 [place]) flash glucose scanning reader 01/09/22 02/13/24 (FreeStyle Toshia 2 [place]) sennosides 8.6 mg capsule (senna) 8.6 mg PO DAILY 05/06/22 02/13/24 diaper,brief,adult,disposable #60 ea 06/03/22 02/13/24 (Depend Underwear For Women XL) incontinence pad, liner, disp #40 ea 06/03/22 02/13/24 trazodone 300 mg tablet 400 mg PO QHS 07/06/22 02/13/24 blood sugar diagnostic (OneTouch #400 ea 08/17/22 02/13/24 Verio test strips) doxepin 6 mg tablet 6 mg PO QHS PRN sleep #90 tabs 08/17/22 02/13/24 glucose 4 gram chewable tablet 4 g PO Q10MIN PRN hypoglycemia 08/17/22 02/13/24 (Dex4 Glucose) #100 tabs [facility] 08/17/22 11/26/23 Lancets) norethindrone acetate 5 mg tablet 10 mg PO TID 10/29/22 02/13/24 glucagon HCl 1 mg solution for 1 mg subcut Q20M PRN #1 ea 01/06/23 02/13/24 injection (Glucagon (HCl) Emergency Kit) methocarbamol 500 mg tablet 500 mg PO TID PRN muscle spasm of 01/14/23 02/13/24 lumbar spine #40 tabs chlorpromazine 50 mg tablet 50 mg PO .COMPLEX 05/03/23 02/13/24 cholecalciferol (vitamin D3) 50 See Rx Instructions .Route 05/12/23 02/13/24 mcg (2,000 unit) capsule .COMPLEX #28 caps ferrous gluconate 324 mg (38 mg See Rx Instructions .Route 05/12/23 02/13/24 iron) tablet .COMPLEX #56 tabs aripiprazole 5 mg tablet (Abilify) 25 mg PO QAM 05/13/23 02/13/24 hydroxyzine pamoate 25 mg capsule 25 mg PO BID PRN 05/13/23 02/13/24 acetaminophen 325 mg tablet 650 mg PO Q6H PRN pain 06/07/23 02/13/24 docusate sodium 100 mg capsule 100 mg PO BID PRN constipation 06/07/23 02/13/24 omeprazole 40 mg capsule,delayed 40 mg PO DAILY 06/07/23 02/13/24 release ondansetron 4 mg disintegrating 4 mg PO Q8H PRN nausea 06/07/23 02/13/24 tablet polyethylene glycol 3350 17 17 g PO DAILY 06/07/23 02/13/24 gram/dose oral powder ursodiol 300 mg capsule 300 mg PO BID 06/07/23 02/13/24 metformin 500 mg tablet,extended 1,000 mg PO BID 06/08/23 02/13/24 release 24 hr metoprolol succinate 100 mg See Rx Instructions .Route 07/05/23 02/13/24 tablet,extended release 24 hr .COMPLEX #28 tabs dapagliflozin propanediol 5 mg 5 mg PO DAILY 07/15/23 02/13/24 tablet (Farxiga) insulin lispro 100 unit/mL 1 sliding scale dose subcut 07/15/23 02/13/24 subcutaneous solution (Humalog USEASDIRECTD U-100 Insulin) losartan 100 mg tablet 100 mg PO DAILY 07/15/23 02/13/24 prazosin 5 mg capsule (Minipress) 10 mg PO DAILY 07/15/23 02/13/24 furosemide 20 mg tablet 20 - 40 mg (1 - 2 x 20 mg) PO QAM 01/19/24 02/13/24 #180 tabs bupropion HCl 150 mg tablet,12 hr 100 mg PO DAILY 02/13/24 02/13/24 sustained-release cephalexin 500 mg capsule 500 mg PO QID 5 days #20 caps 02/13/24 Previous Rx's ?Medication ?Instructions ?Recorded diaper,brief,adult,disposable #60 ea 06/03/22 (Depend Underwear For Women XL) incontinence pad, liner, disp #40 ea 06/03/22 blood sugar diagnostic (OneTouch #400 ea 08/17/22 Verio test strips) doxepin 6 mg tablet 6 mg PO QHS PRN sleep #90 tabs 08/17/22 glucose 4 gram chewable tablet 4 g PO Q10MIN PRN hypoglycemia 08/17/22 (Dex4 Glucose) #100 tabs lancets (OneTouch UltraSoft #400 ea 08/17/22 Lancets) glucagon HCl 1 mg solution for 1 mg subcut Q20M PRN #1 ea 01/06/23 injection (Glucagon (HCl) Emergency Kit) methocarbamol 500 mg tablet 500 mg PO TID PRN muscle spasm of 01/14/23 lumbar spine #40 tabs cholecalciferol (vitamin D3) 50 See Rx Instructions .Route 05/12/23 mcg (2,000 unit) capsule .COMPLEX #28 caps ferrous gluconate 324 mg (38 mg See Rx Instructions .Route 05/12/23 iron) tablet .COMPLEX #56 tabs metoprolol succinate 100 mg See Rx Instructions .Route 07/05/23 tablet,extended release 24 hr .COMPLEX #28 tabs furosemide 20 mg tablet 20 - 40 mg (1 - 2 x 20 mg) PO QAM 01/19/24 #180 tabs cephalexin 500 mg capsule 500 mg PO QID 5 days #20 caps 02/13/24 Allergies Allergy/AdvReac Type Severity Reaction Status Date / Time mushrooms Allergy Unknown rash Uncoded 02/13/24 18:00 General Stated Complaint: Dizzy/Sync ALEKSANDR: 2 Course Vital Signs Vital signs: Vital Signs Temperature 37.2 C 02/13/24 17:54 Pulse 106 H 02/13/24 17:54 Respiratory Rate 28 H 02/13/24 17:54 Blood Pressure 131/77 02/13/24 17:54 Pulse Oximetry 98 02/13/24 17:54 Temperature 37.2 C 02/13/24 17:54 Pulse 106 H 02/13/24 17:54 Respiratory Rate 28 H 02/13/24 17:54 Respiratory Effort Normal 02/13/24 18:05 Blood Pressure 131/77 02/13/24 17:54 Pulse Oximetry 98 02/13/24 17:54 Oxygen Delivery Method Room Air 02/13/24 17:54 Oxygen Flow Rate 0 02/13/24 17:54 Pain Level 0 02/13/24 17:54 Medical Decision Making Quality:SDOH Health Related Social Needs: No Data to Display PFSH All Active Problems (Updated 02/13/24 @ 20:28 by Zenia Rooney MD) Lightheadedness (Acute) Fatigue (Acute) Urinary tract infection (Acute) Abnormal CAT scan (Acute) 2021--abscess at right gluteal area/coccyx, early osteomyelitis? 2023--soft tissue abnormality--stable in appearance, tho uncharacterized; surrounding bones normal Nightmare disorder (Acute ~05/2022) Sleep Note 05/26/22 likely related to her PTSD/Psych history-- Schizoaffective disorder, unspecified (Acute) Menorrhagia (Chronic ~2021) Managed with IUD & norethidrone Insomnia (Chronic ~07/2022) Constipation by delayed colonic transit (Chronic) Senna Class 3 severe obesity without serious comorbidity with body mass index (BMI) of 60.0 to 69.9 in adult (Acute) Hypothyroid (Chronic) [facility] Schizoaffective disorder, bipolar type (Chronic) [facility] PTSD (post-traumatic stress disorder) (Chronic) [facility] Morbid obesity (Chronic) BMI >60, Class 3 severe obesity Obstructive sleep apnea (adult) (pediatric) (Chronic ~2007) C-PAP; [facility] Sleep Medicine T2DM (type 2 diabetes mellitus) (Chronic ~2010) [place]; [facility] Endo Goal: <7% Dependent for transportation (Chronic) RCT Heart failure with preserved ejection fraction (Acute) Severe nonproliferative diabetic retinopathy (Chronic ~10/2021) Major depressive disorder, single episode, mild (Acute 05/11/21) Onychauxis (Acute) [facility] Podiatry Vitamin D deficiency (Acute ~02/2022) Medical History (Updated 02/13/24 @ 20:28 by Zenia Rooney MD) Left chest pressure COVID (~04/2023) Abnormal vaginal bleeding September 2022: GEOLOGICAL SURVEY FIELD ASSISTANT; 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 Diabetic macular edema (~10/2021) Papilledema (~11/2021) Hypoglycemia associated with diabetes (~10/2021) Coagulopathy (~09/2021) ?VWD; [facility] Heme consult NEG Cardiomegaly Dissociative identity disorder (~2014) Plantar fasciitis Iron deficiency anemia due to chronic blood loss Menorrhagia with irregular cycle IUD placed at [facility] Feb 2022, normal endo bx. Bleeding improved. On Northindrone 5mg BID Mixed hyperlipidemia Surgical History (Updated 06/28/23 @ 16:54 by Megan Antoine) H/O gastric bypass (~06/03/23) Laparoscopic Lobo en Y-[facility] History of hysteroscopy hysteroscopy D&C, Mirena IUD placement 03/07 @ [facility] History of Lobo-en-Y gastric bypass Done 06/03/2023 at [facility] Dr.Thadeus Contreras Status post embolization of uterine artery (~09/2022) [facility] 10/13/22; s/p vaginal/uterine hemorrhage Family History Father Diabetes Alcohol use disorder Mother Seizure disorder Other Factor VIII (functional) deficiency Fibroids Social History Smoking/Tobacco Use Status: Never Second Hand Exposure: No Smoking risk assessment performed?: Yes Alcohol Intake: former Drug use: Never Substance use type: does not use Adopted: Yes Caregiver/Support person: No Foster care: Yes Household members: none Housing: apartment Number of Children: 0 Communication Needs: None Education Level: college Details: associate's degree Do you need help understanding health information?: Never current occupation: [employer] Pets and animals: No Sexually active: No Do you think of yourself as: ??asexual Current gender identity: female What is your relationship status?: never How often do you talk on the phone with friends or family?: three or more times per week How often do you get together with friends or relatives?: never Do you belong to any clubs or organized social groups?: no Panel score (0-1 are the most socially isolated patients): 1 What type of physical activity do you participate in: walking Duration: < 15 minutes/day Frequency: 1-2 times per week Vane/Temple: None Special vane needs: No Seatbelt use: sometimes Helmet use: No Drive intox or ride w/intox bus 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
[2024-02-13 18:44] LABS: Abs Immature Grans 0.02 10^3/uL (0.0-0.06); Absolute Basophil Count 0.03 10^3/uL (0.0-0.2); Absolute Eosinophil Count 0.23 10^3/uL (0.0-0.7); Absolute Lymphocyte Count 2.03 10^3/uL (1.2-3.4); Absolute Monocyte Count 0.37 10^3/uL (0.1-0.8); Absolute Neutrophil Count 3.21 10^3/uL (1.2-6.7); Basophils % 0.5 %; Eosinophils % 3.9 %; HCT 39.5 % (36.0-46.0); HGB 12.8 g/dL (11.2-15.7); Immature Grans % 0.3 %; Lymphocytes % 34.5 %; MCH 29.1 pg (27.0-33.0); MCHC 32.4 % (32.0-36.0); MCV 90 fL (80-95); MPV 11.4 fL (8.0-11.0); Monocytes % 6.3 %; Neutrophils % 54.5 %; Platelet Count 295 10^3/uL (130-400); RDW 12.5 % (11.7-14.6); RDW-SD 41.4 fL; WBC 5.89 10^3/uL (4.4-10.8)
[2024-02-13 18:54] LABS: INR 0.9 (0.9-1.1); Prothrombin Time 9.1 sec (9.1-11.1)
[2024-02-13] MEDS: Lactated Ringers 1,000 ML 1000 ML IV (18:59)
[2024-02-13 19:08] LABS: ALT 40 U/L (14-59); AST 18 U/L (15-37); Albumin 3.3 g/dL (3.4-5.0); Alkaline Phosphatase 107 U/L (46-116); Anion Gap 11.2 mmol/L (3-11); BUN 17 mg/dL (7-18); CO2 25.8 mmol/L (21.0-32.0); CREATININE 1.4 mg/dL (0.55-1.02); Chloride 98 mmol/L (98-107); Estimated GFR 51.58 (mL/min/1.73m2); Glucose 247 mg/dL (74-106); Potassium 3.7 mmol/L (3.5-5.1); Sodium 135 mmol/L (136-145); TSH 1.49 uIU/Ml (0.36-3.74); Total Protein 7.7 g/dL (6.4-8.2)
[2024-02-13 19:30] LABS: BE (Venous) -1 mmol/L (-2-3); HCO3 (Venous) 25 mmol/L (23-28); O2 Sat (Venous) 66 %; TCO2 (Venous) 23 mmol/L (24-29); pCO2 (Venous) 44 mmHg (41-51); pH (Venous) 7.35 (7.31-7.41); pO2 (Venous) 35 mmHg
[2024-02-13 20:07] LABS: D-Dimer 330 ng/mlFEU (<500)
[2024-02-13 20:20] LABS: Bilirubin Negative (Negative); Blood Large (Negative); Clarity Cloudy (Clear); Glucose >=1000 mg/dL (Negative); Ketones Negative (Negative); Leukocyte Esterase Trace (Negative); Nitrite Positive (Negative); Urobilinogen 0.2 mg/dL (Up to 0.2); pH 5.5 (5-8)
[2024-02-13 20:27] LABS: Bacteria Many HPF (Negative); C & S Indicated? No/Sq. Contamination; Crystals Negative HPF (Negative); Epithelial Cells Moderate HPF (Negative); Mucus Negative (Negative); RBC >50 HPF (0-2)
[2024-02-13] MEDS: cefTRIAXone 1 GM/50 ML BAG IVPB (20:40)
[2024-02-13] MEDS: Cephalexin 500 MG CAP, 4 CAPS/BTL PO (20:45)
== END 2024-02-13 21:45 | disposition home or self-care (01) ==
PROVIDERS: Emergency Provider Emergency Medicine; PCP Nurse Practitioner Adult Health
DX: R42 Dizziness and giddiness (principal); R53.83 Other fatigue; N39.0 Urinary tract infection, site not specified; N92.1 Excessive and frequent menstruation with irregular cycle; E11.9 Type 2 diabetes mellitus without complications
CPT/HCPCS: 36415; 36416; 80053; 81025; 82805; 82962; 86850; 86900; 86901; 93005; 96361; 96365; 99284; 81003; 81015; 83735; 84443; 85025; 85379; 85610; 93010; J0696

== ENCOUNTER 2024-11-09 22:04 | Outpatient (REF) | payer MEDICARE, MEDICAID, SELFPAY ==
[2024-11-09 22:23] LABS: Epithelial Cells Few HPF (Negative)
[2024-11-09 22:24] LABS: Bacteria Moderate HPF (Negative); C & S Indicated? C&S Done As Ordered; Crystals Negative HPF (Negative); Mucus Negative (Negative)
== END 2024-11-09 22:05 | disposition home or self-care (01) ==
LOC: LBN 22:04
PROVIDERS: PCP Nurse Practitioner Adult Health; Visit Provider Physician Assistant Medical
DX: R31.9 Hematuria, unspecified (principal); R82.89 Other abnormal findings on cytological and histological examination of urine
CPT/HCPCS: 81015; 87086

== ENCOUNTER 2024-12-12 12:16 | Outpatient (REF) | payer MEDICARE, MEDICAID, SELFPAY ==
[2024-12-14 15:02] LABS: Chlamydia Result Negative (Negative); GC Result Negative (Negative)
== END 2024-12-12 12:17 | disposition home or self-care (01) ==
LOC: LBN 12:16
PROVIDERS: PCP Nurse Practitioner Adult Health; Visit Provider Physician Assistant Medical
DX: Z20.2 Contact with and (suspected) exposure to infections with a predominantly sexual mode of transmission (principal)
CPT/HCPCS: 87491; 87591

== ENCOUNTER 2024-12-13 10:36 | Emergency (ER) | payer MEDICARE, MEDICAID, OTHER, SELFPAY ==
[2024-12-13 10:48] VITALS: BP 172/92; PULSE 64; RESP 14; TEMP 35.9; O2SAT 99
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
[2024-12-13 13:08] LABS: Abs Immature Grans 0.01 10^3/uL (0.0-0.06); HCT 36.1 % (36.0-46.0); HGB 11.6 g/dL (11.2-15.7); Immature Grans % 0.2 %; MCH 27.5 pg (27.0-33.0); MCHC 32.1 % (32.0-36.0); MCV 86 fL (80-95); MPV 11.0 fL (8.0-11.0); Platelet Count 320 10^3/uL (130-400); RBC 4.22 10^6/uL (3.93-5.22); RDW 13.9 % (11.7-14.6); RDW-SD 43.3 fL; WBC 5.88 10^3/uL (4.4-10.8)
[2024-12-13 13:21] LABS: HIV 1/2 Ab Rapid Negative (Negative)
[2024-12-13 13:33] LABS: ALT 33 U/L (14-59); AST 19 U/L (15-37); Albumin 3.8 g/dL (3.4-5.0); Alkaline Phosphatase 95 U/L (46-116); Anion Gap 6.6 mmol/L (3-11); BUN 14 mg/dL (7-18); Bilirubin, Total 0.5 mg/dL (0.2-1.0); CO2 30.4 mmol/L (21.0-32.0); Calcium 9.3 mg/dL (8.5-10.1); Chloride 103 mmol/L (98-107); Estimated GFR 87.11 (mL/min/1.73m2); Glucose 103 mg/dL (74-106); Potassium 3.7 mmol/L (3.5-5.1); Sodium 140 mmol/L (136-145); Total Protein 8.4 g/dL (6.4-8.2)
[2024-12-13] MEDS: metroNIDAZOLE 500 MG TAB PO (14:15)
[2024-12-13] MEDS: Doxycycline Hyclate 100 MG CAP PO (14:15)
[2024-12-13 14:25] VITALS: BP 167/99; PULSE 67; RESP 16; O2SAT 99
[2024-12-13 23:17] LABS: Hepatitis C Ab w Rflx HCV PCR Negative (Negative)
[2024-12-13 23:22] LABS: HIV-1/2 Ag & Ab Screen Negative (Negative)
[2024-12-14 08:44] LABS: HBs Antibody, Quant 10.7 mIU/mL (See Note); Hepatitis B Surface Ab Positive (See Note)
== END 2024-12-13 14:52 | disposition home or self-care (01) ==
LOC: ER 14:15
PROVIDERS: Emergency Provider Emergency Medicine Emergency Medical Services; PCP Nurse Practitioner Adult Health
DX: T76.21XA Adult sexual abuse, suspected, initial encounter (principal); E11.9 Type 2 diabetes mellitus without complications; I10 Essential (primary) hypertension; E11.3493 Type 2 diabetes mellitus with severe nonproliferative diabetic retinopathy without macular edema, bilateral; Z79.4 Long term (current) use of insulin; Z98.84 Bariatric surgery status
CPT/HCPCS: 80053; 86706; 86803; 87340; 87389; 96372; 99283; 85025; J0696

== ENCOUNTER 2025-01-15 18:01 | Outpatient (REF) | payer MEDICARE, MEDICAID, SELFPAY ==
[2025-01-15 18:28] LABS: HCG Qual (Serum) Negative
[2025-01-15 18:48] LABS: TSH (W/Ref FT4) 2.06 uIU/mL (0.36-3.74)
== END 2025-01-15 18:02 | disposition home or self-care (01) ==
LOC: LBN 18:01
PROVIDERS: PCP Nurse Practitioner Adult Health; Visit Provider Nurse Practitioner Family
DX: N91.2 Amenorrhea, unspecified (principal)
CPT/HCPCS: 84443; 84703

== ENCOUNTER 2025-02-26 15:41 | Emergency (ER) | payer MEDICARE, MEDICAID, SELFPAY ==
[2025-02-26 15:45] VITALS: BP 162/100; PULSE 78; RESP 16; TEMP 37; O2SAT 98
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
[2025-02-26 17:13] VITALS: BP 162/100; PULSE 78; RESP 16; TEMP 37; O2SAT 98
[2025-02-26 17:14] VITALS: RESP 17
--- NOTE | 2025-04-05 11:09 | NUR.NOTE ---
chart access for HARINDERAlonzo follow per [facility] Nursing Note:
== END 2025-02-26 17:14 | disposition home or self-care (01) ==
PROVIDERS: Emergency Provider Student in an Organized Health Care Education/Training Program; PCP Nurse Practitioner Adult Health
DX: F41.9 Anxiety disorder, unspecified (principal); G47.00 Insomnia, unspecified; R44.0 Auditory hallucinations; R44.1 Visual hallucinations
CPT/HCPCS: 99283 ×2

== ENCOUNTER 2025-04-26 07:36 | Emergency (ER) | payer MEDICARE, MEDICAID, SELFPAY ==
[2025-04-26] VITALS (27 sets, daily range): BP systolic 128–179; BP diastolic 71–151; PULSE 60–88; RESP 7–24; TEMP 36.7; O2SAT 90–100
--- NOTE | 2025-04-26 07:30 | RT.EKG_ITS ---
APPROVED REPORT Exam: Resting ECG Reason for Exam: dizziness Patient Location: E HR:71 bpm ECG Measurements Heart Rate 71 AXIS AZ 180 P 53 QRSd 78 QRS 12 QT 368 T 11 QTc 399 Conclusion Sinus rhythm, rate 71 No interval abnormalities No STEMI No signfiicant changes from priors
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
[2025-04-26 08:12] LABS: BE (Venous) 1 mmol/L (-2-3); HCO3 (Venous) 26 mmol/L (23-28); O2 Sat (Venous) 96 %; TCO2 (Venous) 24 mmol/L (24-29); pCO2 (Venous) 41 mmHg (41-51); pO2 (Venous) 74 mmHg
[2025-04-26 08:13] LABS: Abs Immature Grans 0.01 10^3/uL (0.0-0.06); HCT 35.1 % (36.0-46.0); HGB 11.0 g/dL (11.2-15.7); Immature Grans % 0.2 %; MCH 26.4 pg (27.0-33.0); MCHC 31.3 % (32.0-36.0); MCV 84 fL (80-95); MPV 10.8 fL (8.0-11.0); Platelet Count 293 10^3/uL (130-400); RBC 4.17 10^6/uL (3.93-5.22); RDW 13.2 % (11.7-14.6); RDW-SD 39.8 fL; WBC 4.49 10^3/uL (4.4-10.8)
[2025-04-26] MEDS: Meclizine 25 MG TAB PO (08:15)
[2025-04-26] MEDS: Lactated Ringers 1,000 ML 1000 ML IV (08:16)
[2025-04-26 08:31] LABS: Magnesium 2.1 mg/dL (1.6-2.6)
[2025-04-26 08:33] LABS: ALT 21 U/L (10-49); AST 17 U/L (<34); Albumin 3.7 g/dL (3.2-5.0); Alkaline Phosphatase 81 U/L (46-116); Anion Gap 7.1 mmol/L (3-11); BUN 16 mg/dL (9-23); Bilirubin, Total 0.4 mg/dL (0.2-1.2); CO2 25.9 mmol/L (20.0-31.0); Calcium 8.4 mg/dL (8.3-10.6); Chloride 111 mmol/L (98-107); Glucose 133 mg/dL (74-106); Potassium 4.3 mmol/L (3.5-5.1); Sodium 144 mmol/L (136-145); Total Protein 7.1 g/dL (5.7-8.2)
[2025-04-26 08:35] LABS: TSH (W/Ref FT4) 1.31 uIU/mL (0.55-4.78)
[2025-04-26] MEDS: Normal Saline - Diluent 50 ML VIAL IJ (08:35)
[2025-04-26] MEDS: Omnipaque 350 MG/ML 500 ML BTL-Imaging package IJ (08:36)
--- NOTE | 2025-04-26 08:45 | DI.CT_ITS ---
Exam(s) CT BRAIN NECK CTA EXAM: CT BRAIN NECK CTA CLINICAL HISTORY: Sudden onset vertigo, no trauma. TECHNIQUE: Imaging Protocol: Axial CT angiography was performed with multi- slice acquisition and multi-planar and MIP reconstructions. CONTRAST MATERIAL: Intravenous: Omnipaque 350 Contrast volume:70 ml COMPARISON: No exams were available for comparison FINDINGS: CT Head W/O and W contrast: Ventricles and Extra axial spaces: Normal in size and morphology for the patient's age. Hemorrhage: None. Cerebral parenchyma: No evidence of acute infarct or mass. Midline shift: None. Brainstem/Cerebellum: No acute findings.. Calvarium: Normal. Visualized Paranasal sinuses/Mastoids: Kelley mild mucous retention in the left maxillary sinus. Soft Tissues: Unremarkable. Enhancement: Normal. Venous sinuses are patent. CTA Brain W: Internal Carotid Arteries: Right: No aneurysm, occlusion or significant stenosis. Left: No aneurysm, occlusion or significant stenosis. Middle Cerebral Arteries: Right: No aneurysm, occlusion or significant stenosis. Left: No aneurysm, occlusion or significant stenosis. Anterior Cerebral Arteries: Right: No aneurysm, occlusion or significant stenosis. Left: No aneurysm, occlusion or significant stenosis. Posterior cerebral Arteries: Right: No aneurysm, occlusion or significant stenosis. Left: No aneurysm, occlusion or significant stenosis. Vertebral Arteries: Right: No aneurysm, occlusion or significant stenosis. Left: No aneurysm, occlusion or significant stenosis. Basilar Artery: No aneurysm, occlusion or significant stenosis. CTA Neck W: Visualized aorta: Unremarkable. Visualized pulmonary arteries: Unremarkable. Subclavian arteries: Unremarkable. Common Carotid: Right: No dissection, occlusion or significant stenosis. Left: No dissection, occlusion or significant stenosis. External Carotid: Right: No dissection, occlusion or significant stenosis. Left: No dissection, occlusion or significant stenosis. Internal Carotid: Right: No dissection, occlusion or significant stenosis. Left: No dissection, occlusion or significant stenosis. Vertebral Artery: Right: No dissection, occlusion or significant stenosis. Left: No dissection, occlusion or significant stenosis. Lung Apices: No acute findings. Bones: No acute abnormality. Soft Tissues: Normal. IMPRESSION: 1. CTA brain: Normal CTA examination of the [place]. 2. Head CT: No acute abnormality. 3. CTA neck: No evidence of occlusion, significant stenosis or dissection. RADIATION DOSE DELIVERED: 2,493.58mGy.cm Total DLP DATA REPOSITORY: All CT scans at this facility are submitted to the National Radiology Data Registry (NRDR) Dose Index Registry (DIR) with the [employer] (ACR). RADIATION OPTIMIZATION: All CT scans at this facility use at least one of these dose optimization techniques: automated exposure control; mA and/or kV adjustment per patient size (includes targeted exams where dose is matched to clinical indication); or iterative reconstruction.
[2025-04-26 11:04] LABS: Glucose >=1000 mg/dL (Negative)
[2025-04-26 11:22] LABS: C & S Indicated? No; RBC Negative HPF (0-2); WBC 0-2 HPF (0-5)
== END 2025-04-26 11:44 | disposition home or self-care (01) ==
PROVIDERS: Emergency Provider Emergency Medicine; PCP Nurse Practitioner Adult Health
DX: R42 Dizziness and giddiness (principal); D64.9 Anemia, unspecified
CPT/HCPCS: 99284; 99285; 36415; 36416; 82962; 70496; 70498; 80053; 82805; 93005; 96360; 96361; 81003; 81015; 83735; 84443; 85025; 93010